=== PATIENT | female | born 1950 | race Caucasian/White ===

== ENCOUNTER 2017-11-11 06:23 | Day surgery (SDC) | payer MEDICARE, OTHER ==
[2017-11-08 09:28] VITALS: BMI 44.2
[~2017-11-11 06:23] MED LIST: LACTATED RINGERS 1,000 ML IV SCH; LIDOCAINE 1% 20 ML VIAL (10MG/ML) FOR IV START INTRADERMA PRN
[2017-11-11 06:59] VITALS: TEMP 98.1
[2017-11-11] MEDS ORDERED: LACTATED RINGERS 1,000 ML IV ONE ×2 (07:14)
[2017-11-11 07:20] LABS: Glucose,Whole Blood 131 mg/dL (75-99)
[2017-11-11] MEDS ORDERED: LIDOCAINE 1% INJ 10MG/ML (20 ML MDV) ONE (07:41)
[2017-11-11] MEDS ORDERED: PROPOFOL 10 MG/ML 20 ML VIAL IV ONE (07:41)
--- NOTE | 2017-11-11 07:46 | P.GSHP ---
History of Present Illness H&P Date: 11/11/17 Chief Complaint: Screening/history of polyps 67-year-old female known to our service. 3-4 years ago had a colonoscopy with showed multiple colon polyps. Mild constipation at times which is not new. No family history of colon cancer. No rectal bleeding or melena. 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 Hx severe pneumonia 2 yrs ago. History of Any Multi-Drug Resistant Organisms: None Reported Past Surgical History: Cholecystectomy, Orthopedic Surgery Additional Past Surgical History / Comment(s): Left foot plate and pins, COLONOSCOPY, BILATERAL CATARACTS. Past Anesthesia/Blood Transfusion Reactions: No Reported Reaction Past Psychological History: Anxiety Additional Psychological History / Comment(s): Panic attacks. Smoking Status: Former smoker Past Alcohol Use History: None Reported Additional Past Alcohol Use History / Comment(s): STARTED SMOKING AT AGE 16, 1.5 PPD-QUIT 2015. Past Drug Use History: None Reported - Past Family History Mother Family Medical History: Hypertension Father Family Medical History: Cancer Medications and Allergies Home Medications Medication Instructions Recorded Confirmed Type Albuterol Inhaler [Ventolin Hfa 1 - 2 puff INHALATION RT-Q6H PRN 01/08/15 History Inhaler] Ipratropium-Albuterol Nebulize 3 ml INHALATION RT-QID 01/08/15 11/08/17 History [Duoneb 0.5 mg-3 mg/3 ml Soln] Omeprazole [PriLOSEC] 20 mg PO AC-BRKFST 01/08/15 11/08/17 History metFORMIN HCL [metFORMIN HCL ER] 1,000 mg PO BID 01/08/15 11/08/17 History Enalapril [Vasotec] 10 mg PO HS 02/02/16 11/08/17 History glipiZIDE [Glucotrol] 5 mg PO DAILY@1200 02/02/16 11/08/17 History ALPRAZolam [Xanax] 0.25 mg PO BID PRN #20 tab 02/06/16 11/08/17 Rx Budesonide-Formot 160-4.5 Mcg 2 puff INHALATION BID #1 inhaler 02/06/16 Rx [Symbicort 160-4.5 Mcg Inhaler] Furosemide [Lasix] 40 mg PO TID-W/MEALS #0 tab 02/06/16 11/08/17 Rx HYDROcodone/APAP 10-325MG [[place] 1 each PO Q6H PRN #40 tab 02/06/16 11/08/17 Rx 10-325] Allergies Allergy/AdvReac Type Severity Reaction Status Date / Time Penicillins Allergy Rash/Hives Verified 11/08/17 09:05 Surgical - Exam Vital Signs Temp Pulse Resp BP Pulse Ox 98.1 F 95 20 140/83 96 11/11/17 06:57 11/11/17 06:57 11/11/17 06:57 11/11/17 06:57 11/11/17 06:57 Physical exam: General: Well-developed, well-nourished HEENT: Normocephalic, sclerae nonicteric Abdomen: Nontender, nondistended Extremities: No edema Neuro: Alert and oriented Results - Labs Abnormal Lab Results - Last 24 Hours (Table) 11/11/17 Range/Units 07:14 POC Glucose (mg/dL) 131 H (75-99) mg/dL Assessment and Plan (1) Colon cancer screening Narrative/Plan: Will proceed with colonoscopy at this time. Current Visit: Yes Status: Acute Code(s): Z12.11 - ENCOUNTER FOR SCREENING FOR MALIGNANT NEOPLASM OF COLON SNOMED Code(s): 175762974
--- NOTE | 2017-11-11 08:11 | P.PCN ---
Date of Procedure: 11/11/17 Procedure(s) Performed: PREOPERATIVE DIAGNOSIS: Screening, polyps POSTOPERATIVE DIAGNOSIS: Multiple polyps, poor prep PROCEDURE: Colonoscopy with snare polypectomy ANESTHESIA: MAC SURGEON: Max Jackson M.D. SPECIMENS: Polyps ENDOSCOPIC PROCEDURE: The patient was placed on the endoscopy table in the left decubitus position. The Olympus colonoscope was inserted into the anus and passed under direct visualization to the base of the cecum. The appendiceal orifice was visualized. From that point the scope was slowly withdrawn inspecting all surfaces carefully. There were no neoplastic inflammatory or polypoid lesions throughout the cecum. In the ascending colon there were 2 polyps one of which was non-retrieved. These were both approximately 8 mm in size. The transverse colon appeared normal. In the descending colon 2 additional polyps were removed in a similar fashion. The remainder of the sigmoid and rectum was normal. The patient's prep was suboptimal and I could not visualize probably 20-30% of the mucosal surfaces. I could not visualize any definite diverticulosis. Digital rectal examination was normal. The patient was taken to the recovery room in stable condition per anesthesia guidelines. RECOMMENDATIONS: Await biopsy results but would anticipate follow-up colonoscopy one year.
[2017-11-11 08:31] VITALS: RESP 20
[2017-11-11 09:08] VITALS: BP 153/88; PULSE 91
== END 2017-11-11 08:25 | disposition home or self-care (01) ==
LOC: ORWHC2ENDO 06:23
PROVIDERS: ATTEND Surgery
DX: Z12.11 Encounter for screening for malignant neoplasm of colon (principal); D12.2 Benign neoplasm of ascending colon; D12.8 Benign neoplasm of rectum; Z86.010 Personal history of colon polyps; I11.0 Hypertensive heart disease with heart failure; I50.9 Heart failure, unspecified; J44.9 Chronic obstructive pulmonary disease, unspecified; E11.9 Type 2 diabetes mellitus without complications; Z79.84 Long term (current) use of oral hypoglycemic drugs; K21.9 Gastro-esophageal reflux disease without esophagitis; E78.5 Hyperlipidemia, unspecified; R41.3 Other amnesia; Z87.891 Personal history of nicotine dependence; Z85.828 Personal history of other malignant neoplasm of skin; F41.0 Panic disorder [episodic paroxysmal anxiety]; Z79.51 Long term (current) use of inhaled steroids; Z79.899 Other long term (current) drug therapy; Z88.0 Allergy status to penicillin
CPT/HCPCS: 88305; 45385; J2001; J2704

== ENCOUNTER → 2020-10-17 | Outpatient (CLI) | payer MEDICARE | END | disposition home or self-care (01) ==

== ENCOUNTER 2021-03-17 13:28 | Emergency (ER) | payer MEDICARE ==
[2021-03-17 14:13] VITALS: TEMP 97.8
[2021-03-17] MEDS ORDERED: SOTROVIMAB (EUA) 500 MG in SODIUM CHLORIDE 0.9% 100 ML IVPB ONE (16:45)
[2021-03-17] MEDS ORDERED: SODIUM CHLORIDE 0.9% 50 ML IVPB ONE (16:45)
--- NOTE | 2021-03-17 17:08 | ED ---
General Adult HPI - General Chief complaint: Shortness of Breath Stated complaint: Covid+/antibodies Time Seen by Provider: 03/17/21 16:02 Source: patient, RN notes reviewed Mode of arrival: wheelchair Limitations: no limitations - History of Present Illness Initial comments: This a 70-year-old female presents emergency department chief complaint of COV ID-19. Patient states that she tested positive yesterday regarding results today. Patient sent here for monoclonal antibodies by PCP. Patient states she has CT is currently on 3 L of oxygen is not requiring any additional oxygen. Patient states she has a mild nonproductive cough, body aches fevers and chills. Denies chest pain - Related Data Home Medications Medication Instructions Recorded Confirmed Albuterol Inhaler (Mhu) [Ventolin 1 - 2 puff INHALATION RT-Q6H PRN 01/08/15 11/08/17 Hfa Inhaler (Mhu)] Ipratropium-Albuterol Nebulize 3 ml INHALATION RT-QID 01/08/15 11/08/17 [Duoneb 0.5 mg-3 mg/3 ml Soln] Omeprazole [PriLOSEC] 20 mg PO AC-BRKFST 01/08/15 11/08/17 metFORMIN HCL [metFORMIN HCL ER] 1,000 mg PO BID 01/08/15 11/08/17 Enalapril [Vasotec] 10 mg PO HS 02/02/16 11/08/17 glipiZIDE [Glucotrol] 5 mg PO DAILY@1200 02/02/16 11/08/17 Previous Rx's Medication Instructions Recorded ALPRAZolam [Xanax] 0.25 mg PO BID PRN #20 tab 02/06/16 Budesonide-Formot 160-4.5 Mcg 2 puff INHALATION BID #1 inhaler 02/06/16 [Symbicort 160-4.5 Mcg Inhaler] Furosemide [Lasix] 40 mg PO TID-W/MEALS #0 tab 02/06/16 HYDROcodone/APAP 10-325MG [[place] 1 each PO Q6H PRN #40 tab 02/06/16 10-325] Allergies Allergy/AdvReac Type Severity Reaction Status Date / Time Penicillins Allergy Rash/Hives Verified 11/08/17 09:05 Review of Systems ROS Statement: Those systems with pertinent positive or pertinent negative responses have been documented in the HPI. ROS Other: All systems not noted in ROS Statement are negative. Past Medical History Past Medical History: Heart Failure, COPD, Diabetes Mellitus, GERD/Reflux, Hyperlipidemia, Thyroid Disorder Additional Past Medical History / Comment(s): home O2 History of Any Multi-Drug Resistant Organisms: None Reported Past Surgical History: Cholecystectomy Additional Past Surgical History / Comment(s): foot Left plate and pins Past Anesthesia/Blood Transfusion Reactions: No Reported Reaction Past Psychological History: Anxiety Smoking Status: Former smoker Past Alcohol Use History: None Reported Past Drug Use History: None Reported - Past Family History Mother Family Medical History: Hypertension Father Family Medical History: Cancer General Exam Limitations: no limitations General appearance: alert, in no apparent distress Head exam: Present: atraumatic, normocephalic, normal inspection Eye exam: Present: normal appearance, PERRL, EOMI. Absent: scleral icterus, conjunctival injection, periorbital swelling ENT exam: Present: normal exam, mucous membranes moist Neck exam: Present: normal inspection. Absent: tenderness, meningismus, lymphadenopathy Respiratory exam: Present: normal lung sounds bilaterally. Absent: respiratory distress, wheezes, rales, rhonchi, stridor Cardiovascular Exam: Present: regular rate, normal rhythm, normal heart sounds. Absent: systolic murmur, diastolic murmur, rubs, gallop, clicks GI/Abdominal exam: Present: soft, normal bowel sounds. Absent: distended, tenderness, guarding, rebound, rigid Course Vital Signs 03/17/21 14:11 Temperature 97.8 F Pulse Rate 99 Respiratory 22 Rate Blood Pressure 143/92 O2 Sat by Pulse 95 Oximetry Medical Decision Making - Medical Decision Making Patient received monoclonal antibodies and will be discharged in stable condition. Disposition Clinical Impression: COVID-19 Disposition: HOME SELF-CARE Condition: Stable Instructions (If sedation given, give patient instructions): Coronavirus Disease 2019 (COVID-19) Additional Instructions: Please return to the Emergency Department if symptoms worsen or any other concerns. Is patient prescribed a controlled substance at d/c from ED?: No Referrals: Shalom Gray MD [Primary Care Provider] - 1-2 days Time of Disposition: 17:08
[2021-03-17 18:12] VITALS: BP 137/94; PULSE 68; RESP 18
== END 2021-03-17 18:29 | disposition home or self-care (01) ==
LOC: EC 13:28
DX: U07.1 COVID-19 (principal); E11.9 Type 2 diabetes mellitus without complications; I50.9 Heart failure, unspecified; K21.9 Gastro-esophageal reflux disease without esophagitis; Z87.891 Personal history of nicotine dependence; J44.9 Chronic obstructive pulmonary disease, unspecified; Z79.899 Other long term (current) drug therapy; Z79.84 Long term (current) use of oral hypoglycemic drugs; Z88.0 Allergy status to penicillin
CPT/HCPCS: 99283; Q0247

== ENCOUNTER → 2023-08-29 | Outpatient (CLI) | payer OTHER ==
--- NOTE | 2023-08-29 15:29 | XR ---
EXAMINATION TYPE: XR thoracic spine complete, XR lumbosacral spine min 4V DATE OF EXAM: 08/29/2023 2:34 PM CLINICAL INDICATION:Female, 73 years old with history of M54.50 Low back pain; [facility] COMPARISON: CT 10/27/2020 TECHNIQUE: XR thoracic spine complete, XR lumbosacral spine min 4V views of the spine in Frontal and lateral projections. FINDINGS: No evidence of acute fracture. There is increased kyphotic alignment with mild scoliosis rightward wh ich may be due to patient positioning. Scattered mild tubular body height loss throughout the spine. Multilevel degeneration changes with osteophyte formation and disc space narrowing present. Scattered osteophyte formation along the anterior and lateral aspects of the vertebral bodies. Neural foramen are patent given limitations of this exam. Spinal canal appears patent. Surgical clips project over the spine. Atherosclerosis of the arterial vasculature. IMPRESSION: 1. No acute osseous pathology definitively visualized. Multilevel wedge compressions of the thoracic spine which are indeterminate. Consider MRI for evaluation for bony edema there is new focal pain. 2. Mild scoliosis of moderate disc degeneration changes of the spine.
== END | disposition home or self-care (01) ==
LOC: RADXRMAIN 13:58
PROVIDERS: ATTEND Internal Medicine
DX: M41.87 Other forms of scoliosis, lumbosacral region (principal); M41.84 Other forms of scoliosis, thoracic region; M51.37 Other intervertebral disc degeneration, lumbosacral region; M51.34 Other intervertebral disc degeneration, thoracic region
CPT/HCPCS: 72072; 72110

== ENCOUNTER 2024-07-04 09:59 | Inpatient (IN) | payer MEDICARE, OTHER ==
--- NOTE | 2024-07-04 10:23 | ED ---
SOB HPI - General Chief Complaint: Shortness of Breath Stated Complaint: Fall Time Seen by Provider: 07/04/24 10:20 Source: patient, EMS, RN notes reviewed Mode of arrival: EMS Limitations: no limitations - History of Present Illness Initial Comments: 73-year-old female with history of CHF, COPD, diabetes, hyperlipidemia presenting for fall 12 hours ago. Patient reports she accidentally rolled off of the couch onto the floor and was too weak to get herself up for 12 hours. Denies head injury or loss of consciousness. States she waited for her partner to get up in the morning before she was able to call EMS for help. Denies any injuries from the fall. States she normally is able to ambulate around the house with a walker. Denies blood thinners. Denies shortness of breath, chest pain, abdominal pain, headache, body aches. She is finishing a course of antibiotics for bronchitis. She wears 3 L of O2 at home and has chronic bilateral lower extremity edema. - Related Data Home Medications Medication Instructions Recorded Confirmed Albuterol Inhaler [Ventolin Hfa 1 - 2 puff INHALATION RT-Q6H PRN 01/08/15 11/08/17 Inhaler] Ipratropium-Albuterol Nebulize 3 ml INHALATION RT-QID 01/08/15 11/08/17 [Duoneb 0.5 mg-3 mg/3 ml Soln] Omeprazole [PriLOSEC] 20 mg PO AC-BRKFST 01/08/15 11/08/17 metFORMIN HCL [metFORMIN HCL ER] 1,000 mg PO BID 01/08/15 11/08/17 Enalapril [Vasotec] 10 mg PO HS 02/02/16 11/08/17 glipiZIDE [Glucotrol] 5 mg PO DAILY@1200 02/02/16 11/08/17 Previous Rx's Medication Instructions Recorded ALPRAZolam [Xanax] 0.25 mg PO BID PRN #20 tab 02/06/16 Budesonide-Formot 160-4.5 Mcg 2 puff INHALATION BID #1 inhaler 02/06/16 [Symbicort 160-4.5 Mcg Inhaler] Furosemide [Lasix] 40 mg PO TID-W/MEALS #0 tab 02/06/16 HYDROcodone/APAP 10-325MG [[place] 1 each PO Q6H PRN #40 tab 02/06/16 10325] Allergies Allergy/AdvReac Type Severity Reaction Status Date / Time Penicillins Allergy Rash/Hives Verified 07/04/24 10:10 Review of Systems ROS Statement: Those systems with pertinent positive or pertinent negative responses have been documented in the HPI. ROS Other: All systems not noted in ROS Statement are negative. Past Medical History Past Medical History: Heart Failure, COPD, Diabetes Mellitus, GERD/Reflux, Hyperlipidemia, Thyroid Disorder Additional Past Medical History / Comment(s): home O2 History of Any Multi-Drug Resistant Organisms: None Reported Past Surgical History: Cholecystectomy Additional Past Surgical History / Comment(s): foot Left plate and pins Past Anesthesia/Blood Transfusion Reactions: No Reported Reaction Past Psychological History: Anxiety Smoking Status: Former smoker Past Alcohol Use History: None Reported Past Drug Use History: None Reported - Past Family History Mother Family Medical History: Hypertension Father Family Medical History: Cancer General Exam Limitations: no limitations General appearance: alert, in no apparent distress Head exam: Present: atraumatic, normocephalic, normal inspection Eye exam: Present: normal appearance, PERRL, EOMI. Absent: scleral icterus, conjunctival injection, periorbital swelling ENT exam: Present: normal exam, mucous membranes moist Respiratory exam: Present: normal lung sounds bilaterally. Absent: respiratory distress, wheezes, rales, rhonchi, stridor Cardiovascular Exam: Present: regular rate, normal rhythm, normal heart sounds. Absent: systolic murmur, diastolic murmur, rubs, gallop, clicks GI/Abdominal exam: Present: soft, normal bowel sounds. Absent: distended, tenderness, guarding, rebound, rigid Extremities exam: Present: full ROM, normal capillary refill. Absent: normal inspection (Bilateral lower extremities-2+ edema), tenderness, pedal edema, joint swelling, calf tenderness Neurological exam: Present: alert, oriented X3 Psychiatric exam: Present: normal affect, normal mood Skin exam: Present: warm, dry, intact, normal color. Absent: rash Course Vital Signs 07/04/24 10:01 Temperature 98.3 F Pulse Rate 89 Respiratory 20 Rate Blood Pressure 115/73 O2 Sat by Pulse 95 Oximetry Medical Decision Making - Medical Decision Making Was pt. sent in by a medical professional or institution (, PA, DIESEL DRAGLINE OPERATOR, urgent care, hospital, or usp...) When possible be specific @ -No Did you speak to anyone other than the patient for history (EMS, parent, family, police, friend...)? What history was obtained from this source @ -No Did you review nursing and triage notes (agree or disagree)? Why? @ -I reviewed and agree with nursing and triage notes Were old charts reviewed (outside hosp., previous admission, EMS record, old EK G, old radiological studies, urgent care reports/EKG's, usp records)? Report findings @ -No old charts were reviewed Differential Diagnosis (chest pain, altered mental status, abdominal pain women, abdominal pain men, vaginal bleeding, weakness, fever, dyspnea, syncope, headache, dizziness, GI bleed, back pain, seizure, CVA, palpatations, mental health, musculoskeletal)? @ -Differential Musculoskeletal Muscular strain, contusion, ligament sprain, fracture, arthritis, septic arthritis, bursitis, cellulitis, muscle spasm, nerve compression, DVT, arterial occlusion, herpes zoster, electrolyte abnormality, tumor.... This is not meant to be in all inclusive list EKG interpreted by me (3pts min.). @ -As above X-rays interpreted by me (1pt min.). @ -Chest x-ray reveals cardiomegaly with small to tiny bilateral pleural effusions, 4.7 cm masslike consolidation in right mid to lower lung CT interpreted by me (1pt min.). @ -None done U/S interpreted by me (1pt. min.). @ -None done What testing was considered but not performed or refused? (CT, X-rays, U/S, labs)? Why? @ -None What meds were considered but not given or refused? Why? @ -None Did you discuss the management of the patient with other professionals (professionals i.e. , PA, DIESEL DRAGLINE OPERATOR, lab, RT, psych nurse, long term care social worker, chief juvenile probation officer, teacher, police officer, complex case manager)? Give summary @ -I spoke with Dr. Gray who accepts admission for CHF exacerbation Was smoking cessation discussed for >3mins.? @ -No Was critical care preformed (if so, how long)? @ -No Were there social determinants of health that impacted care today? How? (Homelessness, low income, unemployed, alcoholism, drug addiction, transportation, low edu. Level, literacy, decrease access to med. care, care home, rehab)? @ -No Was there de-escalation of care discussed even if they declined (Discuss DNR or withdrawal of care, Hospice)? DNR status @ -No What co-morbidities impacted this encounter? (DM, HTN, Smoking, COPD, CAD, Cancer, CVA, ARF, Chemo, Hep., AIDS, mental health diagnosis, sleep apnea, morbid obesity)? @ -CHF Was patient admitted / discharged? Hospital course, mention meds given and route, prescriptions, significant lab abnormalities, going to OR and other pertinent info. @ - admitted. 73-year-old female presenting for weakness. States she had a mechanical fall off the couch 12 hours ago and was on the floor for 12 hours, unable to get herself up. Denies head injury or any other injuries from the fall. Denies blood thinners. EKG reveals normal sinus rhythm with no ST changes. Lab work remarkable for mild leukocytosis of 11, creatinine kinase unremarkable for rhabdomyolysis at 151, BNP elevated at 1830, CO2 37. Chest x- ray reveals cardiomegaly with small tiny bilateral pleural effusions and 4.7 cm masslike consolidation in right mid to lower lung. Results discussed with patient. Will admit to medicine for CHF exacerbation with PT/OT consult. Patient was started on IV Lasix. Case was discussed with my ED attending Dr. Lozano. Undiagnosed new problem with uncertain prognosis? @ -No Drug Therapy requiring intensive monitoring for toxicity (Heparin, Nitro, Insulin, Cardizem)? @ -No Were any procedures done? @ -No Diagnosis/symptom? @ -CHF exacerbation Acute, or Chronic, or Acute on Chronic? @ -Acute on chronic Uncomplicated (without systemic symptoms) or Complicated (systemic symptoms)? @ -Complicated Side effects of treatment? @ -No Exacerbation, Progression, or Severe Exacerbation? @ -No Poses a threat to life or bodily function? How? (Chest pain, [place], [place], pneumonia, PE, COPD, DKA, ARF, appy, cholecystitis, CVA, Diverticulitis, Homicidal, Suicidal, threat to staff... and all critical care pts) @ -Yes - Lab Data Result diagrams: 07/04/24 10:33 07/04/24 10:33 Lab Results 03/07/04/24 07/04/24 Range/Units 10:33 10:33 10:33 WBC 11.4 H (3.8-10.6) k/uL RBC 4.40 (3.80-5.40) m/uL Hgb 12.7 (11.4-16.0) gm/dL Hct 42.1 (34.0-46.0) % MCV 95.7 (80.0-100.0) fL MCH 29.0 (25.0-35.0) pg MCHC 30.3 L (31.0-37.0) g/dL RDW 15.1 (11.5-15.5) % Plt Count 190 (150-450) k/uL MPV 7.8 Neutrophils % 84 % Lymphocytes % 10 % Monocytes % 4 % Eosinophils % 1 % Basophils % 0 % Neutrophils # 9.6 H (1.3-7.7) k/uL Lymphocytes # 1.1 (1.0-4.8) k/uL Monocytes # 0.5 (0-1.0) k/uL Eosinophils # 0.1 (0-0.7) k/uL Basophils # 0.0 (0-0.2) k/uL Hypochromasia Marked PT (10.0-12.5) sec INR (<1.2) APTT (22.0-30.0) sec Sodium 137 (137-145) mmol/L Potassium 4.4 (3.5-5.1) mmol/L Chloride 92 L (98-107) mmol/L Carbon Dioxide 37 H (22-30) mmol/L Anion Gap 8 mmol/L BUN 20 H (7-17) mg/dL Creatinine 0.64 (0.52-1.04) mg/dL Est GFR (CKD-EPI)AfAm >90 (>60 ml/min/1.73 sqM) Est GFR (CKD-EPI)NonAf >90 (>60 ml/min/1.73 sqM) Glucose 204 H (74-99) mg/dL Calcium 8.9 (8.4-10.2) mg/dL Total Bilirubin 0.7 (0.2-1.3) mg/dL AST 21 (14-36) U/L ALT 12 (4-34) U/L Alkaline Phosphatase 98 (38-126) U/L Creatine Kinase 151 H (30-135) U/L Troponin I (0.000-0.034) ng/mL NT-Pro-B Natriuret Pep 1830 pg/mL Total Protein 6.1 L (6.3-8.2) g/dL Albumin 3.3 L (3.5-5.0) g/dL Influenza Type A (PCR) Not Detected (Not Detectd) Influenza Type B (PCR) Not Detected (Not Detectd) RSV (PCR) Not Detected (Not Detectd) SARS-CoV-2 (PCR) Not Detected (Not Detectd) 07/04/24 07/04/24 Range/Units 10:33 10:33 WBC (3.8-10.6) k/uL RBC (3.80-5.40) m/uL Hgb (11.4-16.0) gm/dL Hct (34.0-46.0) % MCV (80.0-100.0) fL MCH (25.0-35.0) pg MCHC (31.0-37.0) g/dL RDW (11.5-15.5) % Plt Count (150-450) k/uL MPV Neutrophils % % Lymphocytes % % Monocytes % % Eosinophils % % Basophils % % Neutrophils # (1.3-7.7) k/uL Lymphocytes # (1.0-4.8) k/uL Monocytes # (0-1.0) k/uL Eosinophils # (0-0.7) k/uL Basophils # (0-0.2) k/uL Hypochromasia PT 11.6 (10.0-12.5) sec INR 1.1 (<1.2) APTT 26.7 (22.0-30.0) sec Sodium (137-145) mmol/L Potassium (3.5-5.1) mmol/L Chloride (98-107) mmol/L Carbon Dioxide (22-30) mmol/L Anion Gap mmol/L BUN (7-17) mg/dL Creatinine (0.52-1.04) mg/dL Est GFR (CKD-EPI)AfAm (>60 ml/min/1.73 sqM) Est GFR (CKD-EPI)NonAf (>60 ml/min/1.73 sqM) Glucose (74-99) mg/dL Calcium (8.4-10.2) mg/dL Total Bilirubin (0.2-1.3) mg/dL AST (14-36) U/L ALT (4-34) U/L Alkaline Phosphatase (38-126) U/L Creatine Kinase (30-135) U/L Troponin I <0.012 (0.000-0.034) ng/mL NT-Pro-B Natriuret Pep pg/mL Total Protein (6.3-8.2) g/dL Albumin (3.5-5.0) g/dL Influenza Type A (PCR) (Not Detectd) Influenza Type B (PCR) (Not Detectd) RSV (PCR) (Not Detectd) SARS-CoV-2 (PCR) (Not Detectd) - EKG Data -: EKG Interpreted by Me EKG Comments: Normal sinus rhythm with no acute ST changes. Ventricular rate 92 bpm, AL interval not calculated, QRS duration 96, QT/QTc 365/415 Disposition Clinical Impression: Acute exacerbation of congestive heart failure Disposition: ADMITTED IP TO THIS HOSP Referrals: Shalom Gray MD [Primary Care Provider] - 1-2 days Time of Disposition: 12:03
[2024-07-04 10:53] LABS: Basophils % (A) 0 %; Eosinophils # (A) 0.1 k/uL (0-0.7); Eosinophils % (A) 1 %; HCT 42.1 % (34.0-46.0); HGB 12.7 gm/dL (11.4-16.0); Hypochromasia Marked; Lymphocytes # (A) 1.1 k/uL (1.0-4.8); Lymphocytes % (A) 10 %; MCHC 30.3 g/dL (31.0-37.0); MCV 95.7 fL (80.0-100.0); Mean Platelet Volume 7.8; Monocytes # (A) 0.5 k/uL (0-1.0); Monocytes % (A) 4 %; Neutrophils # (A) 9.6 k/uL (1.3-7.7); Neutrophils % (A) 84 %; Platelet Count 190 k/uL (150-450); RDW 15.1 % (11.5-15.5); WBC 11.4 k/uL (3.8-10.6)
[2024-07-04 11:12] LABS: ALT 12 U/L (4-34); AST 21 U/L (14-36); African American GFR (CKD) >90 (>60 ml/min/1.73 sqM); Albumin 3.3 g/dL (3.5-5.0); Alkaline Phosphatase 98 U/L (38-126); Blood Urea Nitrogen 20 mg/dL (7-17); Calcium 8.9 mg/dL (8.4-10.2); Chloride 92 mmol/L (98-107); Creatine Kinase 151 U/L (30-135); Glucose 204 mg/dL (74-99); Non-African American GFR(CKD) >90 (>60 ml/min/1.73 sqM); Potassium 4.4 mmol/L (3.5-5.1); Sodium 137 mmol/L (137-145); Total Bilirubin 0.7 mg/dL (0.2-1.3); Total Protein 6.1 g/dL (6.3-8.2)
[2024-07-04 11:15] LABS: INR 1.1 (<1.2); Partial Thromboplastin Time 26.7 sec (22.0-30.0); Prothrombin Time 11.6 sec (10.0-12.5)
[2024-07-04 11:19] LABS: Anion Gap 8 mmol/L
[2024-07-04 11:20] LABS: Carbon Dioxide 37 mmol/L (22-30); NT-Pro-B-Type Natriuretic Pept 1830 pg/mL
[2024-07-04 11:28] LABS: Influenza A Not Detected (Not Detectd); Influenza B Not Detected (Not Detectd); RSV Not Detected (Not Detectd)
--- NOTE | 2024-07-04 11:33 | XR ---
EXAMINATION TYPE: XR chest 2V DATE OF EXAM: 07/04/2024 CLINICAL INDICATION: Female, 73 years old with history of shortness of breath, TECHNIQUE: Frontal and lateral views of the chest are obtained. COMPARISON: Chest x-ray February 05, 2016 FINDINGS: Exam suboptimal secondary to patient's large body habitus. Underlying emphysematous change is redemonstrated. Persistent cardiomegaly with small to tiny bilateral pleural effusions. New 4.7 c m masslike opacity in the right midlung. The osseous structures are intact. IMPRESSION: Correlate for suspected CHF exacerbation. Addition there is a 4.7 cm masslike consolidati on in the right mid to lower lung. Underlying mass/malignancy is not excluded. Follow-up is advised. [facility], , 07/04/2024 11:31 AM
[2024-07-04] MEDS ORDERED: NALOXONE 0.4 MG/ML 1 ML VIAL IV PRN (11:59)
[2024-07-04] MEDS ORDERED: ONDANSETRON 4 MG/2 ML VIAL IVP PRN (11:59)
[2024-07-04] MEDS: FUROSEMIDE 10 MG/ML 4 ML VIAL IV STA (13:50)
[2024-07-04 13:53] LABS: Appearance,Urine Clear (Clear); Bilirubin,Urine Negative (Negative); Blood,Urine Negative (Negative); Color,Urine Yellow; Glucose,Urine (UA) 1+ (Negative); Ketones,Urine Negative (Negative); Leukocyte Esterase,Urine Negative (Negative); Nitrite,Urine Negative (Negative); PH, Urine 5.5 (5.0-8.0); Protein,Urine Trace (Negative); Specific Gravity,Urine 1.021 (1.001-1.035)
[2024-07-04] MEDS: HYDROcodone/APAP 5-325MG 1 EACH TAB PO PRN (15:26)
[2024-07-04] MEDS ORDERED: HYDROcodone/APAP 10-325MG 1 EACH TAB PO PRN (15:57)
--- NOTE | 2024-07-04 16:20 | P.HPIM ---
History of Present Illness H&P Date: 07/04/24 Ajay Robertson, is a 73-year-old female who presented to [facility] emergency room with a chief complaint of worsening shortness of breath, additionally patient was found on the floor in her house, she stated that she fell while asleep and was not able to stand up. She was evaluated in the emergency room vital examination on presentation revealed a temperature of 98.3 pulse 89 respiration 20 blood pressure 115/73 pulse ox 95% on 5 L nasal cannula Laboratory data revealed a white blood count of 11.4 hemoglobin 12.7 platelet count 190 BUN 20 creatinine 0.64 influenza A and B RSV and COVID-19 PCR were all negative Testing in the emergency room revealed chest x-ray revealed pulmonary congestion suggestive of congestive heart failure exacerbation and a new 4.7 masslike consolidation in the right mid to lower lung Patient was admitted to medical floor for further evaluation and treatment Past medical history is significant for history of hypertension, history of hyperlipidemia, history of hypothyroidism, history of diabetes mellitus, history of COPD, history of congestive heart failure, history of morbid obesity, history of recurrent episodes of bilateral lower extremity cellulitis. On review of systems patient is alert and oriented x 3 in no apparent distress, she is complaining of generalized body ache, she is complaining of shortness of breath, otherwise she denies any complaints there is no fever or chills no headache or dizziness no chest pain, she has occasional cough no nausea or vomiting no abdominal pain no diarrhea and no urinary symptoms. Past Medical History Past Medical History: Heart Failure, COPD, Diabetes Mellitus, GERD/Reflux, Hyperlipidemia, Thyroid Disorder Additional Past Medical History / Comment(s): home O2 History of Any Multi-Drug Resistant Organisms: None Reported Past Surgical History: Cholecystectomy Additional Past Surgical History / Comment(s): foot Left plate and pins Past Anesthesia/Blood Transfusion Reactions: No Reported Reaction Past Psychological History: Anxiety Smoking Status: Former smoker Past Alcohol Use History: None Reported Past Drug Use History: None Reported - Past Family History Mother Family Medical History: Hypertension Father Family Medical History: Cancer Medications and Allergies Home Medications Medication Instructions Recorded Confirmed Type Albuterol Inhaler [Ventolin Hfa 1 - 2 puff INHALATION RT-Q6H PRN 01/08/15 07/04/24 History Inhaler] Enalapril [Vasotec] 20 mg PO DAILY 07/04/24 07/04/24 History Ergocalciferol [Vitamin D2 (1250 1,250 mcg PO MO 07/04/24 07/04/24 History Mcg = 64585 Iu)] Furosemide [Lasix] 20 mg PO DAILY@1830 07/04/24 07/04/24 History Furosemide [Lasix] 40 mg PO QAM 07/04/24 07/04/24 History HYDROcodone/APAP 10-325MG [[place] 1 tab PO TID PRN 07/04/24 07/04/24 History 10-325] Insulin Glargine,Hum.rec.anlog 70 units SQ DAILY 07/04/24 07/04/24 History [Lantus Solostar Pen] Phentermine HCl [Adipex-P] 37.5 mg PO DAILY 07/04/24 07/04/24 History Rosuvastatin [Crestor] 20 mg PO DAILY 07/04/24 07/04/24 History traZODone HCL [Desyrel] 50 mg PO HS 07/04/24 07/04/24 History Allergies Allergy/AdvReac Type Severity Reaction Status Date / Time Penicillins Allergy Rash/Hives Verified 07/04/24 14:26 Physical Exam Vitals: Vital Signs Temp Pulse Resp BP Pulse Ox 07/04/24 10:01 98.3 F 89 20 115/73 95 Intake and Output 07/04/24 07/04/24 07/04/24 06:59 14:59 22:59 Other: Weight 117.934 kg In general patient is alert and oriented x 3 in no distress HEENT head normocephalic and atraumatic Neck is supple no JVD no goiter no lymphadenopathy no carotid bruit Chest examination reveals a scattered crackles bilaterally no wheezing Cardiac exam reveals regular heart sounds S1 and S2 no gallops no murmurs Abdomen is soft nontender no organomegaly with normal bowel sounds Extremity exam reveals 3+ edema with erythema and chronic stasis changes, multiple small ulceration with scabbing no cyanosis or clubbing Neurological examination reveals no gross focal deficits Results CBC & Chem 7: 07/04/24 10:33 07/04/24 10:33 Labs: Abnormal Lab Results - Last 24 Hours (Table) 07/04/24 07/04/24 07/04/24 Range/Units 10:33 10:33 10:33 WBC 11.4 H (3.8-10.6) k/uL MCHC 30.3 L (31.0-37.0) g/dL Neutrophils # 9.6 H (1.3-7.7) k/uL Chloride 92 L (98-107) mmol/L Carbon Dioxide 37 H (22-30) mmol/L BUN 20 H (7-17) mg/dL Glucose 204 H (74-99) mg/dL Creatine Kinase 151 H (30-135) U/L Total Protein 6.1 L (6.3-8.2) g/dL Albumin 3.3 L (3.5-5.0) g/dL Urine Protein Trace H (Negative) Urine Glucose (UA) 1+ H (Negative) Assessment and Plan Plan: Acute congestive heart failure exacerbation New 4.7 cm masslike consolidation opacity in the right midlung Fall at home, with generalized body pain Bilateral lower extremity cellulitis, with multiple open ulcers Underlying history of hypertension Underlying history of hyperlipidemia Underlying history of diabetes mellitus Underlying history of COPD Underlying history of morbid obesity At this time patient was admitted to telemetry floor Echocardiogram ordered Home medications reviewed and reordered Patient was started on IV Lasix in the emergency room Consultation for pulmonary, infectious disease, and cardiology initiated Will follow closely
[2024-07-04] MEDS ORDERED: RX INFO: IV CONTRAST WAS GIVEN 1 EACH MISC MISCELLANE PRN (16:21)
[2024-07-04] MEDS: FUROSEMIDE 10 MG/ML 2 ML VIAL IV SCH (16:43)
[2024-07-04] MEDS: traZODone HCL 50 MG TAB PO SCH (21:53)
[2024-07-05 06:30] LABS: Glucose,Whole Blood 169 mg/dL (70-110)
[2024-07-05 08:37] LABS: ALT 9 U/L (8-44); AST 15 U/L (13-35); Albumin 3.3 g/dL (3.8-4.9); Albumin/Globulin Ratio 1.38 Ratio (1.60-3.17); Alkaline Phosphatase 83 U/L (41-126); BUN/Creat Ratio 19.44 Ratio (12.00-20.00); Blood Urea Nitrogen 17.5 mg/dL (9.0-27.0); Calcium 8.6 mg/dL (8.7-10.3); Carbon Dioxide 39.1 mmol/L (21.6-31.8); Chloride 94 mmol/L (96-109); Globulin 2.4 g/dL (1.6-3.3); Glucose 197 mg/dL (70-110); Potassium 4.3 mmol/L (3.5-5.5); Sodium 141 mmol/L (135-145); Total Bilirubin 0.3 mg/dL (0.3-1.2); Total Protein 5.7 g/dL (6.2-8.2)
[2024-07-05 08:40] LABS: Basophils # (A) 0.04 X 10*3/uL (0.00-0.10); Basophils % (A) 0.4 %; Eosinophils % (A) 0.9 %; HCT 39.1 % (37.2-46.3); HGB 11.3 g/dL (12.0-15.0); Lymphocytes # (A) 2.34 X 10*3/uL (0.90-5.00); Lymphocytes % (A) 20.9 %; MCHC 28.9 g/dL (32.0-37.0); MCV 100.3 FL (80.0-97.0); Mean Platelet Volume 11.4 FL (9.5-12.2); Monocytes # (A) 1.04 X 10*3/uL (0.20-1.00); Monocytes % (A) 9.3 %; NRBC Per 100 WBC 0 X 10*3/uL (0.00-0.01); Neutrophils # (A) 7.67 X 10*3/uL (1.80-7.70); Neutrophils % (A) 68.2 %; Platelet Count 185 X 10*3/uL (140-440); RDW 15.3 % (11.5-14.5); WBC 11.22 X 10*3/uL (4.50-10.00)
--- NOTE | 2024-07-05 08:54 | CT ---
EXAMINATION TYPE: CT chest w con CT DLP: 640 mGycm, Automated exposure control for dose reduction was used. DATE OF EXAM: 07/05/2024 7:57 AM COMPARISON: Chest radiograph 07/04/2024, CT abdomen and pelvis 10/17/2020 CLINICAL INDICATION:Female, 73 years old with history of lung mass; PHH, Lung Mass TECHNIQUE: Multiple axial images were obtained through the chest following the administration of 100 cc of Isovue 300. . Coronal and sagittal reformats reviewed. FINDINGS: LUNGS/ PLEURA: No pneumothorax. Trace right pleural effusion. Bibasilar dependent subsegmental atelec tasis. Lobulated anterior right upper/middle lobe peripheral pulmonary mass measuring 7.1 x 3.8 cm (s eries 3, image 29). This extends along the right minor fissure. Right middle lobe calcified granuloma . AIRWAY: Patent and unremarkable.. HEART: Cardiomegaly is demonstrated.No pericardial effusion. No significant coronary artery calcifica tions. MEDIASTINUM: A few small mediastinal lymph nodes identified. VASCULATURE: The aortic root measures up to 3.2 cm in diameter. The ascending thoracic aorta measure s up to 4.1 cm. The descending thoracic aorta measures up to 3.0 cm. Mild atherosclerotic calcificati on of the aorta and its branches. Dilated main pulmonary artery measuring up to 4.6 cm. No visualized pulmonary embolism. MUSCULOSKELETAL: No acute osseous abnormalities. No aggressive osseous lesion. Multilevel anterior os teophytosis of the thoracic spine. SOFT TISSUES/LYMPH NODES: Unremarkable. LOWER NECK: Couple of subcentimeter hypodense thyroid nodules. UPPER ABDOMEN: No significant findings. IMPRESSION: 1. Lobulated right upper/middle lobe mass measuring up to 7.1 cm concerning for malignancy until prov en otherwise. Recommend PET/CT versus tissue sampling. 2. Trace right pleural effusion with bilateral lower lobe dependent subsegmental atelectasis. 3. Ascending thoracic aortic aneurysm measuring 4.1 cm. 4. Dilated main pulmonary artery suggesting pulmonary arterial hypertension. [facility], , 07/05/2024 8:51 AM
--- NOTE | 2024-07-05 09:12 | P.CRDCN ---
History of Present Illness History of present illness: HISTORY OF PRESENT ILLNESS: This is a 73-year-old male with a past medical history significant for COPD, congestive heart failure, hypertension, and hyperlipidemia. 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 We have been asked to see the patient in consultation for congestive heart failure. Patient examined at the bedside. Patient presented to the hospital with a chief complaint of increased lower extremity swelling and shortness of breath. Patient was found to be in CHF and was started on IV Lasix. Patient currently denies any chest pain or pressure. Vital signs are stable. DIAGNOSTICS: - EKG reveals sinus mechanism with no signs of acute ischemia - Chest xray correlate for suspected CHF exacerbation. Additionally there is a 4.7 cm masslike consolidation in the right mid to lower lung. Underlying mass/malignancy is not excluded. - Laboratory data: WBC 11.22. Hemoglobin 11.3. Platelet count 185. Sodium 141. Potassium 4.3. BUN 17. Creatinine 0.9. - Current home cardiac medications include rosuvastatin 20 mg daily, enalapril 20 mg daily, and Lasix 40 mg in the morning and 20 mg in the afternoon. REVIEW OF SYSTEMS: At the time of my exam: CONSTITUTIONAL: Denies fever or chills. HEENT: Denies blurred vision, vision changes, or eye pain. Denies hemoptysis CARDIOVASCULAR: Denies chest pain. Denies orthopnea. Denies PND. Denies palpitations RESPIRATORY: Denies shortness of breath. GASTROINTESTINAL: Denies abdominal pain. Denies nausea or vomiting. HEMATOLOGIC: Denies bleeding disorders. GENITOURINARY: Denies any blood in urine. SKIN: Denies pruitis. Denies rash. PHYSICAL EXAM: VITAL SIGNS: Reviewed. GENERAL: Well-developed in no acute distress. HEENT: Head is normocephalic. Pupils are equal, round. Sclerae anicteric. Mucous membranes of the mouth are moist. Neck supple. No JVD or thyromegaly LUNGS: Respirations even and unlabored. Lungs essentially clear to auscultation bilaterally. HEART: Regular rate and rhythm. S1 and S2 heard. ABDOMEN: Soft. Nondistended. Nontender. EXTREMITIES: Normal range of motion. No clubbing or cyanosis. Peripheral pulses intact. Bilateral lower extremity edema with evidence of cellulitis NEUROLOGIC: Awake and alert. Oriented x 3. ASSESSMENT: Bilateral lower extremity cellulitis Acute on chronic heart failure, type unknown, echo pending History of COPD Hypertension Hyperlipidemia Morbid obesity: BMI 46.1 PLAN: Obtain 2D echo to assess cardiac structure and function Begin IV Lasix 40 mg every 8 hours Daily weights, accurate intake and output, monitoring of kidney function Resume additional home cardiac medications Further recommendations pending patient course Nurse practitioner note has been reviewed by physician. Signing provider agrees with the documented findings, assessment, and plan of care documented by ARCHITECT MARINE as a scribe. Past Medical History Past Medical History: Heart Failure, COPD, Diabetes Mellitus, GERD/Reflux, Hyperlipidemia, Thyroid Disorder Additional Past Medical History / Comment(s): home O2 3-6L per pt. History of Any Multi-Drug Resistant Organisms: None Reported Past Surgical History: Cholecystectomy Additional Past Surgical History / Comment(s): foot Left plate and pins Past Anesthesia/Blood Transfusion Reactions: No Reported Reaction Past Psychological History: Anxiety Additional Psychological History / Comment(s): Anxiety Smoking Status: Former smoker Past Alcohol Use History: None Reported Additional Past Alcohol Use History / Comment(s): STARTED SMOKING AT AGE 16, SIG OTHER STATED SHE SMOKES 1.5 PPD Past Drug Use History: None Reported Additional Drug Use History / Comment(s): RARE USE OF MARIJUANA - Past Family History Mother Family Medical History: Hypertension Father Family Medical History: Cancer Medications and Allergies Home Medications Medication Instructions Recorded Confirmed Type Albuterol Inhaler [Ventolin Hfa 1 - 2 puff INHALATION RT-Q6H PRN 01/08/15 07/04/24 History Inhaler] Enalapril [Vasotec] 20 mg PO DAILY 07/04/24 07/04/24 History Ergocalciferol [Vitamin D2 (1250 1,250 mcg PO MO 07/04/24 07/04/24 History Mcg = 00147 Iu)] Furosemide [Lasix] 20 mg PO DAILY@1830 07/04/24 07/04/24 History Furosemide [Lasix] 40 mg PO QAM 07/04/24 07/04/24 History HYDROcodone/APAP 10-325MG [[place] 1 tab PO TID PRN 07/04/24 07/04/24 History 10-325] Insulin Glargine,Hum.rec.anlog 70 units SQ DAILY 07/04/24 07/04/24 History [Lantus Solostar Pen] Phentermine HCl [Adipex-P] 37.5 mg PO DAILY 07/04/24 07/04/24 History Rosuvastatin [Crestor] 20 mg PO DAILY 07/04/24 07/04/24 History traZODone HCL [Desyrel] 50 mg PO HS 07/04/24 07/04/24 History Allergies Allergy/AdvReac Type Severity Reaction Status Date / Time Penicillins Allergy Rash/Hives Verified 07/04/24 14:26 Physical Exam Vitals: Vital Signs Temp Pulse Pulse Resp BP BP Pulse Ox 07/05/24 07:00 98.7 F 99 18 119/68 96 07/05/24 00:59 98.5 F 100 18 94/43 94 L 07/04/24 20:06 98.5 F 87 19 111/63 97 07/04/24 20:00 87 19 07/04/24 18:26 98.5 F 83 20 104/50 97 07/04/24 16:44 95 20 117/54 97 07/04/24 10:01 98.3 F 89 20 115/73 95 Intake and Output 07/04/24 07/05/24 07/05/24 22:59 06:59 14:59 Output Total 1600 700 Balance -1600 -700 Output: Urine 1600 700 Uretheral (Rock) 1600 Other: Voiding Method Indwelling Catheter # Bowel Movements 1 Weight 117.934 kg Results 07/05/24 05:42 07/05/24 05:42 Cardiac Enzymes 07/04/24 07/04/24 07/05/24 Range/Units 10:33 10:33 05:42 AST 21 15 (14-36) U/L Troponin I <0.012 (0.000-0.034) ng/mL Coagulation 07/04/24 Range/Units 10:33 PT 11.6 (10.0-12.5) sec APTT 26.7 (22.0-30.0) sec CBC 07/04/24 07/05/24 Range/Units 10:33 05:42 WBC 11.4 H 11.22 H (3.8-10.6) k/uL RBC 4.40 3.90 L (3.80-5.40) m/uL Hgb 12.7 11.3 L (11.4-16.0) gm/dL Hct 42.1 39.1 (34.0-46.0) % Plt Count 190 185 (150-450) k/uL Comprehensive Metabolic Panel 07/04/24 07/05/24 Range/Units 10:33 05:42 Sodium 137 141 (137-145) mmol/L Potassium 4.4 4.3 (3.5-5.1) mmol/L Chloride 92 L 94 L (98-107) mmol/L Carbon Dioxide 37 H 39.1 H (22-30) mmol/L BUN 20 H 17.5 (7-17) mg/dL Creatinine 0.64 0.9 (0.52-1.04) mg/dL Glucose 204 H 197 H (74-99) mg/dL Calcium 8.9 8.6 L (8.4-10.2) mg/dL AST 21 15 (14-36) U/L ALT 12 9 (4-34) U/L Alkaline Phosphatase 98 83 (38-126) U/L Total Protein 6.1 L 5.7 L (6.3-8.2) g/dL Albumin 3.3 L 3.3 L (3.5-5.0) g/dL Current Medications Generic Name Dose Route Start Last Admin Trade Name Freq PRN Reason Stop Dose Admin Acetaminophen 650 mg 07/04/24 11:59 Acetaminophen Tab 325 Mg Tab PO Q6HR PRN Mild Pain or Fever > 100.5 Hydrocodone Bitart/Acetaminophen 1 each 07/04/24 11:59 07/04/24 21:51 Hydrocodone/Apap 5-325mg 1 Each Tab PO 1 each Q4HR PRN Administration Moderate Pain (Scale 4 to 6) Albuterol Sulfate 2.5 mg 07/04/24 15:57 Albuterol Nebulized 2.5 Mg/3 Ml INHALATION RT-Q6H PRN Dyspnea Atorvastatin Calcium 40 mg 07/05/24 09:00 Atorvastatin 40 Mg Tab PO DAILY LOURDES Ergocalciferol 1,250 mcg 07/09/24 09:00 Ergocalciferol 1,250 Mcg (50,000 Iu) Capsule PO MO LOURDES Furosemide 40 mg 07/05/24 08:00 Furosemide 10 Mg/Ml 4 Ml Vial IV Q8HR LOURDES Insulin Glargine 70 unit 07/05/24 09:00 Insulin Glargine (Lantus) 100 Unit/Ml Syr SQ DAILY LOURDES Lisinopril 40 mg 07/05/24 09:00 Lisinopril 20 Mg Tab PO DAILY LOURDES Miscellaneous Information 1 each 07/04/24 16:21 Rx Info: Iv Contrast Was Given 1 Each Misc MISCELLANE 07/06/24 16:21 DAILY PRN Per Protocol Morphine Sulfate 4 mg 07/04/24 11:59 Morphine Sulfate 4 Mg/Ml Syringe IV Q4HR PRN Severe Pain (Scale 7 to 10) Naloxone HCl 0.2 mg 07/04/24 11:59 Naloxone 0.4 Mg/Ml 1 Ml Vial IV Q2M PRN Opioid Reversal Ondansetron HCl 4 mg 07/04/24 11:59 Ondansetron 4 Mg/2 Ml Vial IVP Q8HR PRN Nausea And Vomiting Trazodone HCl 50 mg 07/04/24 21:00 07/04/24 21:53 Trazodone Hcl 50 Mg Tab PO Not Given HS LOURDES Intake and Output 07/04/24 07/05/24 07/05/24 22:59 06:59 14:59 Output Total 1600 700 Balance -1600 -700 Output: Urine 1600 700 Uretheral (Rock) 1600 Other: Voiding Method Indwelling Catheter # Bowel Movements 1 Weight 117.934 kg 07/05/24 05:42 07/05/24 05:42
[2024-07-05] MEDS: ATORVASTATIN 40 MG TAB PO SCH (09:22)
[2024-07-05] MEDS: lisinopriL 20 MG TAB PO SCH (09:22)
--- NOTE | 2024-07-05 09:57 | P.PN ---
Subjective Progress Note Date: 07/05/24 Ajay Robertson, is a 73-year-old female who presented to [facility] emergency room with a chief complaint of worsening shortness of breath, additionally patient was found on the floor in her house, she stated that she fell while asleep and was not able to stand up. She was evaluated in the emergency room vital examination on presentation revealed a temperature of 98.3 pulse 89 respiration 20 blood pressure 115/73 pulse ox 95% on 5 L nasal cannula Laboratory data revealed a white blood count of 11.4 hemoglobin 12.7 platelet count 190 BUN 20 creatinine 0.64 influenza A and B RSV and COVID-19 PCR were all negative Testing in the emergency room revealed chest x-ray revealed pulmonary congestion suggestive of congestive heart failure exacerbation and a new 4.7 masslike consolidation in the right mid to lower lung Patient was admitted to medical floor for further evaluation and treatment Past medical history is significant for history of hypertension, history of hyperlipidemia, history of hypothyroidism, history of diabetes mellitus, history of COPD, history of congestive heart failure, history of morbid obesity, history of recurrent episodes of bilateral lower extremity cellulitis. On review of systems patient is alert and oriented x 3 in no apparent distress, she is complaining of generalized body ache, she is complaining of shortness of breath, otherwise she denies any complaints there is no fever or chills no headache or dizziness no chest pain, she has occasional cough no nausea or vomiting no abdominal pain no diarrhea and no urinary symptoms. On 07/05/2024 patient is alert and oriented x 3. Awaiting consulting providers input. Patient remains on IV Lasix. CT of the chest has been completed. At this time patient denies chest pain. Patient denies nausea vomiting or diarrhea. Patient denies any urinary burning or frequency Objective - Vital Signs Vital signs: Vital Signs Temp 98.7 F 07/05/24 07:00 Pulse 99 07/05/24 07:00 Resp 18 07/05/24 07:00 BP 119/68 07/05/24 07:00 Pulse Ox 96 07/05/24 07:00 FiO2 Intake & Output 07/04/24 07/05/24 07/05/24 18:59 06:59 18:59 Output Total 1600 700 Balance -1600 -700 Weight 117.934 kg 117.934 kg Output: Urine 1600 700 Uretheral (Rock) 1600 Other: Voiding Method Indwelling Catheter # Bowel Movements 1 - Exam In general patient is alert and oriented x 3 in no distress HEENT head normocephalic and atraumatic Neck is supple no JVD no goiter no lymphadenopathy no carotid bruit Chest examination reveals a scattered crackles bilaterally no wheezing Cardiac exam reveals regular heart sounds S1 and S2 no gallops no murmurs Abdomen is soft nontender no organomegaly with normal bowel sounds Extremity exam reveals 3+ edema with erythema and chronic stasis changes, multiple small ulceration with scabbing no cyanosis or clubbing Neurological examination reveals no gross focal deficits - Labs CBC & Chem 7: 07/05/24 05:42 07/05/24 05:42 Labs: Abnormal Lab Results - Last 24 Hours (Table) 07/04/24 07/04/24 07/04/24 Range/Units 10:33 10:33 10:33 WBC 11.4 H (3.8-10.6) k/uL RBC (4.10-5.20) X 10*6/uL Hgb (12.0-15.0) g/dL MCV (80.0-97.0) [place] MCHC 30.3 L (31.0-37.0) g/dL RDW (11.5-14.5) % Neutrophils # 9.6 H (1.3-7.7) k/uL Monocytes # (0.20-1.00) X 10*3/uL Chloride 92 L (98-107) mmol/L Carbon Dioxide 37 H (22-30) mmol/L BUN 20 H (7-17) mg/dL Glucose 204 H (74-99) mg/dL POC Glucose (mg/dL) (70-110) mg/dL Calcium (8.7-10.3) mg/dL Creatine Kinase 151 H (30-135) U/L Total Protein 6.1 L (6.3-8.2) g/dL Albumin 3.3 L (3.5-5.0) g/dL Albumin/Globulin Ratio (1.60-3.17) Ratio Urine Protein Trace H (Negative) Urine Glucose (UA) 1+ H (Negative) 07/05/24 07/05/24 07/05/24 Range/Units 05:42 05:42 06:28 WBC 11.22 H (3.8-10.6) k/uL RBC 3.90 L (4.10-5.20) X 10*6/uL Hgb 11.3 L (12.0-15.0) g/dL MCV 100.3 H (80.0-97.0) [place] MCHC 28.9 L (31.0-37.0) g/dL RDW 15.3 H (11.5-14.5) % Neutrophils # (1.3-7.7) k/uL Monocytes # 1.04 H (0.20-1.00) X 10*3/uL Chloride 94 L (98-107) mmol/L Carbon Dioxide 39.1 H (22-30) mmol/L BUN (7-17) mg/dL Glucose 197 H (74-99) mg/dL POC Glucose (mg/dL) 169 H (70-110) mg/dL Calcium 8.6 L (8.7-10.3) mg/dL Creatine Kinase (30-135) U/L Total Protein 5.7 L (6.3-8.2) g/dL Albumin 3.3 L (3.5-5.0) g/dL Albumin/Globulin Ratio 1.38 L (1.60-3.17) Ratio Urine Protein (Negative) Urine Glucose (UA) (Negative) Assessment and Plan Plan: Acute congestive heart failure exacerbation New 4.7 cm masslike consolidation opacity in the right midlung Fall at home, with generalized body pain Bilateral lower extremity cellulitis, with multiple open ulcers Underlying history of hypertension Underlying history of hyperlipidemia Underlying history of diabetes mellitus Underlying history of COPD Underlying history of morbid obesity At this time patient was admitted to telemetry floor Echocardiogram ordered Home medications reviewed and reordered Patient was started on IV Lasix in the emergency room Consultation for pulmonary, infectious disease, and cardiology initiated Will follow closely
[2024-07-05] MEDS: FUROSEMIDE 10 MG/ML 4 ML VIAL IV SCH (10:00)
[2024-07-05] MEDS: INSULIN GLARGINE (LANTUS) 100 UNIT/ML SYR SQ SCH (10:00)
--- NOTE | 2024-07-05 10:43 | P.CNPUL ---
History of Present Illness Consult date: 07/05/24 Requesting physician: Shalom Gray Reason for consult: dyspnea, cough, hypoxemia, lung mass, abnormal CXR/CT Chief complaint: Shortness of breath. History of present illness: Pulmonary consult dated July 05, 2024. This is a 73-year-old obese white female today seen in room 620. She came to [facility] with 1 day of shortness of breath, leg swelling, and cough. Her viral screen was negative. The patient has smoked for about 40 to 45 years. The only medicine she takes at home for her breathing is albuterol. Her procalcitonin level was 0.05. Chest x-ray showed some fluid overload, but also showed a possible mass in the right midlung, which could be either an actual mass or pseudotumor. A CT scan was ordered. It does show a 7.1 lobulated mass in the right lung. A PET scan was recommended. Currently, the patient is on 4 L of oxygen. No fluids are ordered. She is getting Lasix 40 mg every 8 hours. She also has an updraft ordered. White count 1.22, hemoglobin 11.3, macro 39.1, platelet count 185,000. Coags are normal. Sodium 141, potassium 4.3, chlorides 94, CO2 39, BUN 17.5, creatinine 0.9. Glucose 169. Calcium 8.6. Troponin was negative. N-terminal proBNP was elevated at 1830. Procalcitonin level was 0.05. Urine is negative. Viral screen was negative. Chest x-ray was consistent with fluid overload/CHF. Cardiology has seen the patient. Review of Systems REVIEW OF SYSTEMS: CONSTITUTIONAL: [Negative.] NEUROLOGIC: [ Negative.] HEENT: [ Negative.] CARDIAC: As of breath, and leg swelling. PULMONARY: Shortness of breath. GI: [Negative.] : [Negative.] RHEUMATOLOGIC: [ Negative.] IMMUNOLOGIC: [ Negative.] ENDOCRINE: [Negative. ] DERMATOLOGIC: [Negative.] Past Medical History Past Medical History: Heart Failure, COPD, Diabetes Mellitus, GERD/Reflux, Hyperlipidemia, Thyroid Disorder Additional Past Medical History / Comment(s): home O2 3-6L per pt. History of Any Multi-Drug Resistant Organisms: None Reported Past Surgical History: Cholecystectomy Additional Past Surgical History / Comment(s): foot Left plate and pins Past Anesthesia/Blood Transfusion Reactions: No Reported Reaction Past Psychological History: Anxiety Additional Psychological History / Comment(s): Anxiety Smoking Status: Former smoker Past Alcohol Use History: None Reported Additional Past Alcohol Use History / Comment(s): STARTED SMOKING AT AGE 16, SIG OTHER STATED SHE SMOKES 1.5 PPD Past Drug Use History: None Reported Additional Drug Use History / Comment(s): RARE USE OF MARIJUANA - Past Family History Mother Family Medical History: Hypertension Father Family Medical History: Cancer Medications and Allergies Home Medications Medication Instructions Recorded Confirmed Type Albuterol Inhaler [Ventolin Hfa 1 - 2 puff INHALATION RT-Q6H PRN 01/08/15 History Inhaler] Enalapril [Vasotec] 20 mg PO DAILY 07/04/24 07/04/24 History Ergocalciferol [Vitamin D2 (1250 1,250 mcg PO MO 07/04/24 07/04/24 History Mcg = 85782 Iu)] Furosemide [Lasix] 20 mg PO DAILY@1830 07/04/24 07/04/24 History Furosemide [Lasix] 40 mg PO QAM 07/04/24 07/04/24 History HYDROcodone/APAP 10-325MG [[place] 1 tab PO TID PRN 07/04/24 07/04/24 History 10-325] Insulin Glargine,Hum.rec.anlog 70 units SQ DAILY 07/04/24 07/04/24 History [Lantus Solostar Pen] Phentermine HCl [Adipex-P] 37.5 mg PO DAILY 07/04/24 07/04/24 History Rosuvastatin [Crestor] 20 mg PO DAILY 07/04/24 07/04/24 History traZODone HCL [Desyrel] 50 mg PO HS 07/04/24 07/04/24 History Allergies Allergy/AdvReac Type Severity Reaction Status Date / Time Penicillins Allergy Rash/Hives Verified 07/04/24 14:26 Physical Exam Osteopathic Statement: *. No significant issues noted on an osteopathic structural exam other than those noted in the History and Physical/Consult. Vitals: Vital Signs Temp Pulse Pulse Resp BP BP Pulse Ox 07/05/24 10:26 98.9 F 98 16 113/69 94 L 07/05/24 07:00 98.7 F 99 18 119/68 96 07/05/24 00:59 98.5 F 100 18 94/43 94 L 07/04/24 20:06 98.5 F 87 19 111/63 97 07/04/24 20:00 87 19 07/04/24 18:26 98.5 F 83 20 104/50 97 07/04/24 16:44 95 20 117/54 97 Intake and Output 07/04/24 07/05/24 07/05/24 22:59 06:59 14:59 Output Total 1600 700 Balance -1600 -700 Output: Urine 1600 700 Uretheral (Rock) 1600 Other: Voiding Method Indwelling Catheter # Bowel Movements 1 Weight 117.934 kg No acute distress, oriented 3. No conversational dyspnea. The patient is on 4 L. HEENT examination is grossly unremarkable. Mucous membranes are moist. No oral lesions. Neck supple. Full range of motion. No adenopathy thyromegaly or neck vein distention. Cardiovascular examination reveals regular rhythm rate. S1-S2 normal. No S3 or S4. No discernible murmur noted. Heart sounds are distant. Lungs reveal scattered crackles and rhonchi. No wheezes. Breath sounds are equal. Abdomen obese, with bowel sounds. No masses or tenderness. Extremities are intact. No cyanosis or clubbing. Edema is noted. Skin is without rash or lesion. Neurologic examination is brief but nonfocal. Results - Laboratory Findings CBC and BMP: 07/05/24 05:42 07/05/24 05:42 PT/INR, D-dimer PT 11.6 sec (10.0-12.5) 07/04/24 10:33 INR 1.1 (<1.2) 07/04/24 10:33 Abnormal lab findings: Abnormal Labs 07/04/24 07/04/24 07/04/24 10:33 10:33 10:33 WBC 11.4 H RBC Hgb MCV MCHC 30.3 L RDW Neutrophils # 9.6 H Monocytes # Chloride 92 L Carbon Dioxide 37 H BUN 20 H Glucose 204 H POC Glucose (mg/dL) Calcium Creatine Kinase 151 H Total Protein 6.1 L Albumin 3.3 L Albumin/Globulin Ratio Urine Protein Trace H Urine Glucose (UA) 1+ H 07/05/24 07/05/24 07/05/24 05:42 05:42 06:28 WBC 11.22 H RBC 3.90 L Hgb 11.3 L MCV 100.3 H MCHC 28.9 L RDW 15.3 H Neutrophils # Monocytes # 1.04 H Chloride 94 L Carbon Dioxide 39.1 H BUN Glucose 197 H POC Glucose (mg/dL) 169 H Calcium 8.6 L Creatine Kinase Total Protein 5.7 L Albumin 3.3 L Albumin/Globulin Ratio 1.38 L Urine Protein Urine Glucose (UA) - Diagnostic Findings Chest x-ray: image reviewed CT scan - chest: image reviewed Assessment and Plan Assessment: Acute hypoxemic respiratory failure, likely on the basis of CHF. Possible COPD, from years of tobacco use. Lobulated mass, 7.1 cm, right midlung, possibly consistent with malignancy, given her previous smoking history. History of congestive heart failure. History of diabetes mellitus. History of gastroesophageal reflux disease. History of hyperlipidemia. History of hypothyroidism. Morbid obesity. Plan: Plan dated July 05, 2024. The patient is seen today in room 620. She is laying in bed, eating her breakfast. The patient is currently on 4 L of oxygen. The patient came in with a couple days worth of increasing shortness of breath, lower extremity edema. Chest x-ray and CT scan in my opinion are consistent with fluid overload. BNP was elevated. The patient was a heavy smoker for many years and may have a component of COPD as well. In addition, CT scan suggested a lobulated mass, measuring 7.1 cm in the right midlung. The patient will need an outpatient PET scan. Labs, x-rays, and medications are reviewed. Viral screen was negative. We will continue to follow. Procalcitonin level was 0.05. Dictation was produced using [employer] software. Please excuse any grammatical, word or spelling errors. Time with Patient: Greater than 30
[2024-07-05 12:06] LABS: Glucose,Whole Blood 186 mg/dL (70-110)
[2024-07-05 17:08] LABS: Glucose,Whole Blood 200 mg/dL (70-110)
[2024-07-05 20:20] LABS: Glucose,Whole Blood 188 mg/dL (70-110)
--- NOTE | 2024-07-05 20:37 | P.CONS ---
History of Present Illness - Reason for Consult Consult date: 07/05/24 Lower extremity cellulitis Requesting physician: Shalom Gray - Chief Complaint Weakness fall off the bed x 1 day - History of Present Illness Patient is a 73-year-old female with a past medical history significant for COPD heart failure diabetes mellitus reflux hyperlipidemia presenting to the hospital for evaluation of a fall that happened the day of presentation to the hospital patient accidentally rolled off the couch onto the floor and was too weak to get herself up for 12 hours denies having any headache or loss of consciousness EMS was called and the patient had been subsequently brought into the hospital on arrival to the ER patient was afebrile and no fever have been called subsequently patient was nontachycardic hypotensive mildly hypoxic currently on 4 L nasal oxygen patient did have a white count 11.4 with a left shift creatinine 0.64 electrolytes are normal liver enzymes are normal urine has been negative influenza RSV COVID testing was negative patient did have a chest x-ray correlate for suspected CHF exacerbation with a 4.7 cm mass like consolidation right mid to lower lung subsequently did have a CT of the chest loculated right upper middle lobe mass measuring up to 7.1 send concerning for malignancy also noticed to have increasing swelling to lower extremity especially was consulted today for the lower extremity cellulitis and antibiotics patient complaining of increasing swelling of the lower extremity for the last few days to weeks with both swelling and bruising will be to have some superficial solution has been complaining of some pain to the lower EXTR and mostly dull aching mild to moderate is without radiation Review of Systems Positive point and negatives has been mentioned in the HPI, complete review of systems was performed and all other systems are negative Past Medical History Past Medical History: Heart Failure, COPD, Diabetes Mellitus, GERD/Reflux, Hyperlipidemia, Thyroid Disorder Additional Past Medical History / Comment(s): home O2 3-6L per pt. History of Any Multi-Drug Resistant Organisms: None Reported Past Surgical History: Cholecystectomy Additional Past Surgical History / Comment(s): foot Left plate and pins Past Anesthesia/Blood Transfusion Reactions: No Reported Reaction Past Psychological History: Anxiety Additional Psychological History / Comment(s): Anxiety Smoking Status: Former smoker Past Alcohol Use History: None Reported Additional Past Alcohol Use History / Comment(s): STARTED SMOKING AT AGE 16, SIG OTHER STATED SHE SMOKES 1.5 PPD Past Drug Use History: None Reported Additional Drug Use History / Comment(s): RARE USE OF MARIJUANA - Past Family History Mother Family Medical History: Hypertension Father Family Medical History: Cancer Medications and Allergies Home Medications Medication Instructions Recorded Confirmed Type Albuterol Inhaler [Ventolin Hfa 1 - 2 puff INHALATION RT-Q6H PRN 01/08/15 07/04/24 History Inhaler] Enalapril [Vasotec] 20 mg PO DAILY 07/04/24 07/04/24 History Ergocalciferol [Vitamin D2 (1250 1,250 mcg PO MO 07/04/24 07/04/24 History Mcg = 86518 Iu)] Furosemide [Lasix] 20 mg PO DAILY@1830 07/04/24 07/04/24 History Furosemide [Lasix] 40 mg PO QAM 07/04/24 07/04/24 History HYDROcodone/APAP 10-325MG [[place] 1 tab PO TID PRN 07/04/24 07/04/24 History 10-325] Insulin Glargine,Hum.rec.anlog 70 units SQ DAILY 07/04/24 07/04/24 History [Lantus Solostar Pen] Phentermine HCl [Adipex-P] 37.5 mg PO DAILY 07/04/24 07/04/24 History Rosuvastatin [Crestor] 20 mg PO DAILY 07/04/24 07/04/24 History traZODone HCL [Desyrel] 50 mg PO HS 07/04/24 07/04/24 History Allergies Allergy/AdvReac Type Severity Reaction Status Date / Time Penicillins Allergy Rash/Hives Verified 07/04/24 14:26 Physical Exam Vitals: Vital Signs Temp Pulse Pulse Resp BP BP Pulse Ox 07/05/24 10:26 98.9 F 98 16 113/69 94 L 07/05/24 07:00 98.7 F 99 18 119/68 96 07/05/24 00:59 98.5 F 100 18 94/43 94 L 07/04/24 20:06 98.5 F 87 19 111/63 97 07/04/24 20:00 87 19 07/04/24 18:26 98.5 F 83 20 104/50 97 07/04/24 16:44 95 20 117/54 97 Intake and Output 07/04/24 07/05/24 07/05/24 22:59 06:59 14:59 Output Total 1600 700 Balance -1600 -700 Output: Urine 1600 700 Uretheral (Rock) 1600 Other: Voiding Method Indwelling Catheter # Bowel Movements 1 Weight 117.934 kg GENERAL DESCRIPTION: Elderly female lying in bed, no distress. No tachypnea or accessory muscle of respiration use. HEENT: Shows Pallor , no scleral icterus. Oral mucous membrane is dry. No pharyngeal erythema or thrush NECK: Trachea central, no thyromegaly. LUNGS: Unlabored breathing. Decreased breath sound the base HEART: S1, S2, regular rate and rhythm. No loud murmur ABDOMEN: Soft, no tenderness , guarding or rigidity, no organomegaly EXTREMITIES: Diffuse swelling to bilateral lower extremity with superficial ulceration to the left leg surrounding redness SKIN: No rash, no masses palpable. NEUROLOGICAL: The patient is awake, alert, oriented x3, mood and affect normal. Results CBC & Chem 7: 07/05/24 05:42 07/05/24 05:42 Labs: Abnormal Lab Results - Last 24 Hours (Table) 07/04/24 07/05/24 07/05/24 Range/Units 10:33 05:42 05:42 WBC 11.22 H (4.50-10.00) X 10*3/uL RBC 3.90 L (4.10-5.20) X 10*6/uL Hgb 11.3 L (12.0-15.0) g/dL MCV 100.3 H (80.0-97.0) FL MCHC 28.9 L (32.0-37.0) g/dL RDW 15.3 H (11.5-14.5) % Monocytes # 1.04 H (0.20-1.00) X 10*3/uL Chloride 94 L (96-109) mmol/L Carbon Dioxide 39.1 H (21.6-31.8) mmol/L Glucose 197 H (70-110) mg/dL POC Glucose (mg/dL) (70-110) mg/dL Calcium 8.6 L (8.7-10.3) mg/dL Total Protein 5.7 L (6.2-8.2) g/dL Albumin 3.3 L (3.8-4.9) g/dL Albumin/Globulin Ratio 1.38 L (1.60-3.17) Ratio Urine Protein Trace H (Negative) Urine Glucose (UA) 1+ H (Negative) 07/05/24 Range/Units 06:28 WBC (4.50-10.00) X 10*3/uL RBC (4.10-5.20) X 10*6/uL Hgb (12.0-15.0) g/dL MCV (80.0-97.0) FL MCHC (32.0-37.0) g/dL RDW (11.5-14.5) % Monocytes # (0.20-1.00) X 10*3/uL Chloride (96-109) mmol/L Carbon Dioxide (21.6-31.8) mmol/L Glucose (70-110) mg/dL POC Glucose (mg/dL) 169 H (70-110) mg/dL Calcium (8.7-10.3) mg/dL Total Protein (6.2-8.2) g/dL Albumin (3.8-4.9) g/dL Albumin/Globulin Ratio (1.60-3.17) Ratio Urine Protein (Negative) Urine Glucose (UA) (Negative) Assessment and Plan (1) Leg ulcer, left Current Visit: Yes Status: Acute Code(s): L97.929 - NON-PRS CHRONIC ULC UNSP PRT OF L LOW LEG W UNSP SEVERITY SNOMED Code(s): 56971313 (2) Left leg cellulitis Current Visit: Yes Status: Acute Code(s): L03.116 - CELLULITIS OF LEFT LOWER LIMB SNOMED Code(s): 33504268658780198 (3) Penicillin allergy Current Visit: Yes Status: Acute Code(s): Z88.0 - ALLERGY STATUS TO PENICILLIN SNOMED Code(s): 96502482 Plan: 1patient with diffuse swelling of bilateral lower extremity with superficial solution to the left leg likely venous stasis ulcer with secondary cellulitis likely from gram-positive skin neida. 2patient with a penicillin allergy that will limit the number of antibiotics safe to use. 3we will start the patient cefazolin 2 g every 8 hours. 4local wound care to the left leg with dry Aquacel dressing and Blue wrap to keep the swelling down. We will follow on clinical condition and cultures to further adjust medication if needed Thank you for this consultation we will follow the patient along with you Dictation was produced using [employer] software. please excuse any grammatical, word or spelling errors. Time with Patient: Greater than 30
[2024-07-05 22:21] LABS: Glucose,Whole Blood 157 mg/dL (70-110)
[2024-07-05] MEDS: SODIUM CHLORIDE 0.9% 1,000 ML IV SCH (22:32)
[2024-07-05] MEDS: ACETAMINOPHEN TAB 325 MG TAB PO PRN (22:32)
[2024-07-06 00:38] LABS: Basophils % (A) 0 %; Eosinophils # (A) 0.1 k/uL (0-0.7); Eosinophils % (A) 1 %; HCT 37.9 % (34.0-46.0); HGB 11.5 gm/dL (11.4-16.0); Hypochromasia Marked; Lymphocytes # (A) 1.3 k/uL (1.0-4.8); Lymphocytes % (A) 13 %; MCH 29.4 pg (25.0-35.0); MCHC 30.2 g/dL (31.0-37.0); MCV 97.3 fL (80.0-100.0); Monocytes # (A) 0.6 k/uL (0-1.0); Monocytes % (A) 6 %; Neutrophils % (A) 79 %; Platelet Count 198 k/uL (150-450); RDW 14.9 % (11.5-15.5); WBC 10.2 k/uL (3.8-10.6)
[2024-07-06 00:57] LABS: African American GFR (CKD) 83 (>60 ml/min/1.73 sqM); Blood Urea Nitrogen 29 mg/dL (7-17); Calcium 8.4 mg/dL (8.4-10.2); Chloride 89 mmol/L (98-107); Glucose 132 mg/dL (74-99); Non-African American GFR(CKD) 72 (>60 ml/min/1.73 sqM); Potassium 4.5 mmol/L (3.5-5.1); Sodium 134 mmol/L (137-145)
[2024-07-06 01:04] LABS: Anion Gap 7 mmol/L; Carbon Dioxide 38 mmol/L (22-30)
[2024-07-06 07:17] LABS: Glucose,Whole Blood 110 mg/dL (70-110)
--- NOTE | 2024-07-06 09:43 | P.PN ---
Subjective Progress Note Date: 07/06/24 Ajay Robertson, is a 73-year-old female who presented to [facility] emergency room with a chief complaint of worsening shortness of breath, additionally patient was found on the floor in her house, she stated that she fell while asleep and was not able to stand up. She was evaluated in the emergency room vital examination on presentation revealed a temperature of 98.3 pulse 89 respiration 20 blood pressure 115/73 pulse ox 95% on 5 L nasal cannula Laboratory data revealed a white blood count of 11.4 hemoglobin 12.7 platelet count 190 BUN 20 creatinine 0.64 influenza A and B RSV and COVID-19 PCR were all negative Testing in the emergency room revealed chest x-ray revealed pulmonary congestion suggestive of congestive heart failure exacerbation and a new 4.7 masslike consolidation in the right mid to lower lung Patient was admitted to medical floor for further evaluation and treatment Past medical history is significant for history of hypertension, history of hyperlipidemia, history of hypothyroidism, history of diabetes mellitus, history of COPD, history of congestive heart failure, history of morbid obesity, history of recurrent episodes of bilateral lower extremity cellulitis. On review of systems patient is alert and oriented x 3 in no apparent distress, she is complaining of generalized body ache, she is complaining of shortness of breath, otherwise she denies any complaints there is no fever or chills no headache or dizziness no chest pain, she has occasional cough no nausea or vomiting no abdominal pain no diarrhea and no urinary symptoms. On 07/05/2024 patient is alert and oriented x 3. Awaiting consulting providers input. Patient remains on IV Lasix. CT of the chest has been completed. At this time patient denies chest pain. Patient denies nausea vomiting or diarrhea. Patient denies any urinary burning or frequency On 07/06/2024 patient is alert and oriented x 3. Patient remains on IV Lasix and IV antibiotics. Cardiology pulmonary and infectious disease services are following. Current vital signs temp 98.1, heart rate 67, respiratory rate 15, blood pressure 96/53 with a pulse ox of 93% on 4 L. Patient denies chest pain or shortness of breath. Patient denies nausea vomiting or diarrhea. Patient denies any urinary burning or frequency Objective - Vital Signs Vital signs: Vital Signs Temp 98.8 F 07/06/24 07:00 Pulse 67 07/06/24 07:00 Resp 16 07/06/24 08:19 BP 96/53 07/06/24 07:00 Pulse Ox 93 L 07/06/24 07:00 FiO2 Intake & Output 07/05/24 07/06/24 07/06/24 18:59 06:59 18:59 Intake Total 100 Output Total 200 750 Balance -200 -650 Intake: Oral 100 Output: Urine 200 750 Other: Voiding Method Indwelling Catheter Indwelling Catheter - Exam In general patient is alert and oriented x 3 in no distress HEENT head normocephalic and atraumatic Neck is supple no JVD no goiter no lymphadenopathy no carotid bruit Chest examination reveals a scattered crackles bilaterally no wheezing Cardiac exam reveals regular heart sounds S1 and S2 no gallops no murmurs Abdomen is soft nontender no organomegaly with normal bowel sounds Extremity exam reveals 3+ edema with erythema and chronic stasis changes, multiple small ulceration with scabbing no cyanosis or clubbing Neurological examination reveals no gross focal deficits - Labs CBC & Chem 7: 07/06/24 00:15 07/06/24 00:15 Labs: Abnormal Lab Results - Last 24 Hours (Table) 07/05/24 07/05/24 07/05/24 Range/Units 12:04 17:07 20:02 MCHC (31.0-37.0) g/dL Neutrophils # (1.3-7.7) k/uL Sodium (137-145) mmol/L Chloride (98-107) mmol/L Carbon Dioxide (22-30) mmol/L BUN (7-17) mg/dL Glucose (74-99) mg/dL POC Glucose (mg/dL) 186 H 200 H 188 H (70-110) mg/dL 07/05/24 07/06/24 07/06/24 Range/Units 22:18 00:15 00:15 MCHC 30.2 L (31.0-37.0) g/dL Neutrophils # 8.0 H (1.3-7.7) k/uL Sodium 134 L (137-145) mmol/L Chloride 89 L (98-107) mmol/L Carbon Dioxide 38 H (22-30) mmol/L BUN 29 H (7-17) mg/dL Glucose 132 H (74-99) mg/dL POC Glucose (mg/dL) 157 H (70-110) mg/dL Assessment and Plan Plan: Acute congestive heart failure exacerbation New 4.7 cm masslike consolidation opacity in the right midlung Fall at home, with generalized body pain Bilateral lower extremity cellulitis, with multiple open ulcers Underlying history of hypertension Underlying history of hyperlipidemia Underlying history of diabetes mellitus Underlying history of COPD Underlying history of morbid obesity At this time patient was admitted to telemetry floor Echocardiogram ordered Home medications reviewed and reordered Patient was started on IV Lasix in the emergency room Consultation for pulmonary, infectious disease, and cardiology initiated Will follow closely
--- NOTE | 2024-07-06 09:56 | P.PN ---
Subjective HISTORY OF PRESENT ILLNESS: This is a 73-year-old male with a past medical history significant for COPD, congestive heart failure, hypertension, and hyperlipidemia. 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 We have been asked to see the patient in consultation for congestive heart failure. Patient examined at the bedside. Patient presented to the hospital with a chief complaint of increased lower extremity swelling and shortness of breath. Patient was found to be in CHF and was started on IV Lasix. Patient currently denies any chest pain or pressure. Vital signs are stable. DIAGNOSTICS: - EKG reveals sinus mechanism with no signs of acute ischemia - Chest xray correlate for suspected CHF exacerbation. Additionally there is a 4.7 cm masslike consolidation in the right mid to lower lung. Underlying mass/malignancy is not excluded. - Laboratory data: WBC 11.22. Hemoglobin 11.3. Platelet count 185. Sodium 141. Potassium 4.3. BUN 17. Creatinine 0.9. - Current home cardiac medications include rosuvastatin 20 mg daily, enalapril 20 mg daily, and Lasix 40 mg in the morning and 20 mg in the afternoon. 07/06/2024 Patient examined this morning at the bedside. Patient apparently became hypotensive overnight with blood pressures in the 70s and 80s. Her Lasix was discontinued. However she was continued on lisinopril per primary medicine. Systolic blood pressure this morning is in the 90s. PHYSICAL EXAM: VITAL SIGNS: Reviewed. GENERAL: Well-developed in no acute distress. HEENT: Head is normocephalic. Pupils are equal, round. Sclerae anicteric. Mucous membranes of the mouth are moist. Neck supple. No JVD or thyromegaly LUNGS: Respirations even and unlabored. Lungs essentially clear to auscultation bilaterally. HEART: Regular rate and rhythm. S1 and S2 heard. ABDOMEN: Soft. Nondistended. Nontender. EXTREMITIES: Normal range of motion. No clubbing or cyanosis. Peripheral pulses intact. Bilateral lower extremity edema with evidence of cellulitis NEUROLOGIC: Awake and alert. Oriented x 3. ASSESSMENT: Bilateral lower extremity cellulitis Acute on chronic heart failure, type unknown, echo pending History of COPD Right lung mass, pulmonary consulted for evaluation Hypertension Hyperlipidemia Morbid obesity: BMI 46.1 Hypotension PLAN: 2D echo ordered. Await results. Lasix discontinued overnight secondary to hypotension Discontinue lisinopril due to hypotension Further recommendations pending patient course Nurse practitioner note has been reviewed by physician. Signing provider agrees with the documented findings, assessment, and plan of care documented by [employer] as a scribe. Objective - Vital Signs Vital signs: Vital Signs Temp 98.8 F 07/06/24 07:00 Pulse 67 07/06/24 07:00 Resp 16 07/06/24 08:19 BP 96/53 07/06/24 07:00 Pulse Ox 93 L 07/06/24 07:00 FiO2 Intake & Output 07/05/24 07/06/24 07/06/24 18:59 06:59 18:59 Intake Total 100 Output Total 200 750 Balance -200 -650 Intake: Oral 100 Output: Urine 200 750 Other: Voiding Method Indwelling Catheter Indwelling Catheter - Labs CBC & Chem 7: 07/06/24 00:15 07/06/24 00:15 Labs: Abnormal Lab Results - Last 24 Hours (Table) 07/05/24 07/05/24 07/05/24 Range/Units 12:04 17:07 20:02 MCHC (31.0-37.0) g/dL Neutrophils # (1.3-7.7) k/uL Sodium (137-145) mmol/L Chloride (98-107) mmol/L Carbon Dioxide (22-30) mmol/L BUN (7-17) mg/dL Glucose (74-99) mg/dL POC Glucose (mg/dL) 186 H 200 H 188 H (70-110) mg/dL 07/05/24 07/06/24 07/06/24 Range/Units 22:18 00:15 00:15 MCHC 30.2 L (31.0-37.0) g/dL Neutrophils # 8.0 H (1.3-7.7) k/uL Sodium 134 L (137-145) mmol/L Chloride 89 L (98-107) mmol/L Carbon Dioxide 38 H (22-30) mmol/L BUN 29 H (7-17) mg/dL Glucose 132 H (74-99) mg/dL POC Glucose (mg/dL) 157 H (70-110) mg/dL
--- NOTE | 2024-07-06 11:35 | P.PN ---
Subjective Progress Note Date: 07/06/24 This is a 73-year-old obese white female today seen in room 620. She came to the hospital with 1 day of shortness of breath, leg swelling, and cough. Her viral screen was negative. The patient has smoked for about 40 to 45 years. The only medicine she takes at home for her breathing is albuterol. Her procalcitonin level was 0.05. Chest x-ray showed some fluid overload, but also showed a possible mass in the right midlung, which could be either an actual mass or pseudotumor. A CT scan was ordered. It does show a 7.1 lobulated mass in the right lung. A PET scan was recommended. Currently, the patient is on 4 L of oxygen. No fluids are ordered. She is getting Lasix 40 mg every 8 hours. She also has an updraft ordered. White count 1.22, hemoglobin 11.3, macro 39.1, platelet count 185,000. Coags are normal. Sodium 141, potassium 4.3, chlorides 94, CO2 39, BUN 17.5, creatinine 0.9. Glucose 169. Calcium 8.6. Troponin was negative. N-terminal proBNP was elevated at 1830. Procalcitonin level was 0.05. Urine is negative. Viral screen was negative. Chest x-ray was consistent with fluid overload/CHF. Cardiology has seen the patient. The patient is seen today July 06, 2024 in follow-up on the regular medical floor. She is currently sitting up in bed. Awake and alert in no acute distress. She is maintaining O2 saturations in the 90s on 4 L/min per nasal cannula. She is receiving normal saline at 75 mL/h. White count 10.2. Hemoglobin 11.5. Platelets 198. Sodium 134. Potassium 4.5. Bicarb 38. BUN 29. Creatinine 0.83. Glucose 132. She remains on cefazolin. IV diuretics were discontinued. Objective - Vital Signs Vital signs: Vital Signs Temp 98.8 F 07/06/24 07:00 Pulse 67 07/06/24 07:00 Resp 16 07/06/24 08:19 BP 96/53 07/06/24 07:00 Pulse Ox 93 L 07/06/24 07:00 FiO2 Intake & Output 07/05/24 07/06/24 07/06/24 18:59 06:59 18:59 Intake Total 100 Output Total 200 750 Balance -200 -650 Intake: Oral 100 Output: Urine 200 750 Other: Voiding Method Indwelling Catheter Indwelling Catheter - Exam GENERAL EXAM: Alert, pleasant 73-year-old female patient, on 4 L nasal cannula, In no apparent distress. HEAD: Normocephalic. EYES: Normal reaction of pupils, equal size. NOSE: Clear with pink turbinates. THROAT: No erythema or exudates. NECK: No masses, no JVD. CHEST: No chest wall deformity. LUNGS: Equal air entry with no crackles, wheeze, rhonchi or dullness. CVS: S1 and S2 normal with no audible murmur, regular rhythm. ABDOMEN: No hepatosplenomegaly, normal bowel sounds, no guarding or rigidity. SPINE: No scoliosis or deformity SKIN: No rashes. Chronic venous stasis of the lower extremities. Left leg ulceration. CENTRAL NERVOUS SYSTEM: No focal deficits, tone is normal in all 4 extremities. EXTREMITIES: Changes of chronic venous stasis. There is no peripheral edema. No clubbing, no cyanosis. Peripheral pulses are intact. - Labs CBC & Chem 7: 07/06/24 00:15 07/06/24 00:15 Labs: Abnormal Lab Results - Last 24 Hours (Table) 07/05/24 07/05/24 07/05/24 Range/Units 12:04 17:07 20:02 MCHC (31.0-37.0) g/dL Neutrophils # (1.3-7.7) k/uL Sodium (137-145) mmol/L Chloride (98-107) mmol/L Carbon Dioxide (22-30) mmol/L BUN (7-17) mg/dL Glucose (74-99) mg/dL POC Glucose (mg/dL) 186 H 200 H 188 H (70-110) mg/dL 07/05/24 07/06/24 07/06/24 Range/Units 22:18 00:15 00:15 MCHC 30.2 L (31.0-37.0) g/dL Neutrophils # 8.0 H (1.3-7.7) k/uL Sodium 134 L (137-145) mmol/L Chloride 89 L (98-107) mmol/L Carbon Dioxide 38 H (22-30) mmol/L BUN 29 H (7-17) mg/dL Glucose 132 H (74-99) mg/dL POC Glucose (mg/dL) 157 H (70-110) mg/dL Assessment and Plan Assessment: Acute hypoxemic respiratory failure, likely on the basis of CHF Possible COPD, from years of tobacco use Lobulated mass, 7.1 cm, right midlung, possibly consistent with malignancy, given her previous smoking history Superficial ulceration of the left leg from chronic venous stasis History of congestive heart failure History of diabetes mellitus History of gastroesophageal reflux disease History of hyperlipidemia History of hypothyroidism Morbid obesity Plan: The patient was seen and evaluated Imaging, labs and medications reviewed Patient informed of suspicious lung mass Plan is for outpatient PET scan Titrate down the FiO2 as tolerated Continue bronchodilators Remains on cefazolin for left leg ulcer This patient was seen independently by the pulmonary nurse practitioner addressing pulmonary issues I have personally seen and examined the patient, performed the documentation and the assessment and plan as written. Number of minutes spent on the visit: 24 Dictation was produced using [employer] dictation software. Please excuse any grammatical, word or spelling errors.
[2024-07-06 13:00] LABS: Glucose,Whole Blood 186 mg/dL (70-110)
--- NOTE | 2024-07-06 13:13 | CA ---
Transthoracic Echo Report Name: Ajay Robertson Age: 73 Gender: F : 1950 Exam Date: 07/06/2024 11:14 Exam Location: [facility] Ht (in): 63 Wt (lb): 260 Ordering Physician: Shalom Gray MD Attending/Referring Phys: [employer] Representative Alida Tobin RDCS Procedure CPT: Indications: chf Cardiac Hx: Technical Quality: Good Contrast 1: Total Dose (mL): Contrast 2: Total Dose (mL): MEASUREMENTS (Male / Female) Normal Values 2D ECHO LV Diastolic Diameter PLAX 4.3 cm 4.2 - 5.9 / 3.9 - 5.3 cm LV Systolic Diameter PLAX 3.4 cm IVS Diastolic Thickness 1.6 cm 0.6 - 1.0 / 0.6 - 0.9 cm LVPW Diastolic Thickness 1.3 cm 0.6 - 1.0 / 0.6 - 0.9 cm LV Relative Wall Thickness 0.7 RV Internal Dim ED PLAX 3.6 cm LA Systolic Diameter LX 4.0 cm 3.0 - 4.0 / 2.7 - 3.8 cm LA Volume 52.7 cm??? 18 - 58 / 22 - 52 cm??? LA Volume Index 22.3 cm???/m??? 16 - 28 cm???/m??? M-MODE Aortic Root Diameter MM 3.2 cm DOPPLER AV Peak Velocity 248.7 cm/s AV Peak Gradient 24.8 mmHg AV Mean Velocity 173.8 cm/s AV Mean Gradient 13.7 mmHg AV Velocity Time Integral 44.6 cm LVOT Peak Velocity 191.5 cm/s LVOT Peak Gradient 14.7 mmHg LVOT Velocity Time Integral 26.1 cm MV Area PHT 3.4 cm??? Mitral E Point Velocity 122.8 cm/s Mitral A Point Velocity 129.1 cm/s Mitral E to A Ratio 1.0 MV Deceleration Time 220.7 ms TR Peak Velocity 291.5 cm/s TR Peak Gradient 34.0 mmHg Right Ventricular Systolic Press 54.0 mmHg FINDINGS Left Ventricle Left ventricular ejection fraction is estimated at 55-60 %. Left ventricular cavity size normal. Moderate concentric left ventricular hypertrophy. Flattening of LV septum in systole an diatole. Right Ventricle Mild right ventricular dilatation. Moderate pulmonary hypertension. Right ventricular systolic pressure estimated at 54 mm hg. Right Atrium Normal right atrial size. No right atrial thrombus or mass seen. Left Atrium Mildly increased left atrial diameter. No left atrial thrombus or mass present. Mitral Valve Mitral valve thickened. Mild mitral annular calcification. No evidence for mitral valve prolapse. No mitral stenosis. No mitral regurgitation. Aortic Valve Trileaflet aortic valve. Aortic valve sclerosis. Mild aortic stenosis with a peak gradient of 25 mmHg and a mean gradient of 14 mmHg. Tricuspid Valve Structurally normal tricuspid valve. Mild tricuspid regurgitation. Pulmonic Valve Pulmonic valve not well visualized. Pericardium No pericardial effusion. Aorta Normal size aortic root and proximal ascending aorta. CONCLUSIONS Normal LV function Moderate to severe pulmonary hypertension Mild aortic stenosis Previewed by: Dr. Sadi Alarcon MD (Electronically Signed) Final Date: 06 July 2024 13:11
[2024-07-06] MEDS: QUEtiapine 25 MG TAB PO SCH ×3 (14:41→22:10)
--- NOTE | 2024-07-06 15:36 | P.PN ---
Subjective Progress Note Date: 07/06/24 Principal diagnosis: Reason for follow-up with lower extremity ulcer and cellulitis Patient is a 73-year-old female with a past medical history significant for COPD heart failure diabetes mellitus reflux hyperlipidemia presenting to the hospital for evaluation of a fall that happened the day of presentation to the hospital patient accidentally rolled off the couch onto the floor and was too weak to get herself up, noticed to have bilateral extremity ulcer and cellulitis prompted this consultation. On today's evaluation that is 07/06/2024, the patient continues to be afebrile, the patient is on 3 L nasal cannula oxygen and breathing comfortably, the Pt denies having any chest pain or cough, the patient denies having any abdominal pain no vomiting or any diarrhea and denies pain to the lower extremity. Patient white count is 10.2, creatinine 0.83 Objective - Vital Signs Vital signs: Vital Signs Temp 98.8 F 07/06/24 07:00 Pulse 67 07/06/24 07:00 Resp 16 07/06/24 08:19 BP 96/53 07/06/24 07:00 Pulse Ox 93 L 07/06/24 07:00 FiO2 Intake & Output 07/05/24 07/06/24 07/06/24 18:59 06:59 18:59 Intake Total 100 Output Total 200 750 Balance -200 -650 Intake: Oral 100 Output: Urine 200 750 Other: Voiding Method Indwelling Catheter Indwelling Catheter - Exam GENERAL DESCRIPTION: An elderly female lying in bed in no distress RESPIRATORY SYSTEM: Unlabored breathing , decreased breath sounds at bases HEART: S1 S2 regular rate and rhythm , ABDOMEN: Soft , no tenderness EXTREMITIES: Bilateral lower extremity swelling with ulcerations especially to Left leg - Labs CBC & Chem 7: 07/06/24 00:15 07/06/24 00:15 Labs: Abnormal Lab Results - Last 24 Hours (Table) 07/05/24 07/05/24 07/05/24 Range/Units 17:07 20:02 22:18 MCHC (31.0-37.0) g/dL Neutrophils # (1.3-7.7) k/uL Sodium (137-145) mmol/L Chloride (98-107) mmol/L Carbon Dioxide (22-30) mmol/L BUN (7-17) mg/dL Glucose (74-99) mg/dL POC Glucose (mg/dL) 200 H 188 H 157 H (70-110) mg/dL 07/06/24 07/06/24 07/06/24 Range/Units 00:15 00:15 12:57 MCHC 30.2 L (31.0-37.0) g/dL Neutrophils # 8.0 H (1.3-7.7) k/uL Sodium 134 L (137-145) mmol/L Chloride 89 L (98-107) mmol/L Carbon Dioxide 38 H (22-30) mmol/L BUN 29 H (7-17) mg/dL Glucose 132 H (74-99) mg/dL POC Glucose (mg/dL) 186 H (70-110) mg/dL Assessment and Plan (1) Leg ulcer, left Current Visit: Yes Status: Acute Code(s): L97.929 - NON-PRS CHRONIC ULC UNSP PRT OF L LOW LEG W UNSP SEVERITY SNOMED Code(s): 61966286 (2) Left leg cellulitis Current Visit: Yes Status: Acute Code(s): L03.116 - CELLULITIS OF LEFT LOWER LIMB SNOMED Code(s): 75985684899027695 (3) Penicillin allergy Current Visit: Yes Status: Acute Code(s): Z88.0 - ALLERGY STATUS TO PENICILLIN SNOMED Code(s): 08274527 Plan: 1patient with diffuse swelling of bilateral lower extremity with superficial solution to the left leg likely venous stasis ulcer with secondary cellulitis likely from gram-positive skin neida. 2patient with a penicillin allergy that will limit the number of antibiotics safe to use. 3patient to cefazolin 2 g every 8 hours. 4local wound care to the left leg with dry Aquacel dressing and Blue wrap to keep the swelling down however per the nursing staff the patient has been refusing Dictation was produced using [employer] dictation software. please excuse any grammatical, word or spelling errors. Time with Patient: Less than 30
[2024-07-06 17:05] LABS: Glucose,Whole Blood 188 mg/dL (70-110)
[2024-07-06 19:13] LABS: Glucose,Whole Blood 166 mg/dL (70-110)
[2024-07-07 06:00] LABS: Glucose,Whole Blood 142 mg/dL (70-110)
[2024-07-07] MEDS: INSULIN GLARGINE (LANTUS) 100 UNIT/ML SYR SQ SCH (07:00)
--- NOTE | 2024-07-07 08:56 | P.PN ---
Subjective Progress Note Date: 07/07/24 Ajay Robertson, is a 73-year-old female who presented to [facility] emergency room with a chief complaint of worsening shortness of breath, additionally patient was found on the floor in her house, she stated that she fell while asleep and was not able to stand up. She was evaluated in the emergency room vital examination on presentation revealed a temperature of 98.3 pulse 89 respiration 20 blood pressure 115/73 pulse ox 95% on 5 L nasal cannula Laboratory data revealed a white blood count of 11.4 hemoglobin 12.7 platelet count 190 BUN 20 creatinine 0.64 influenza A and B RSV and COVID-19 PCR were all negative Testing in the emergency room revealed chest x-ray revealed pulmonary congestion suggestive of congestive heart failure exacerbation and a new 4.7 masslike consolidation in the right mid to lower lung Patient was admitted to medical floor for further evaluation and treatment Past medical history is significant for history of hypertension, history of hyperlipidemia, history of hypothyroidism, history of diabetes mellitus, history of COPD, history of congestive heart failure, history of morbid obesity, history of recurrent episodes of bilateral lower extremity cellulitis. On review of systems patient is alert and oriented x 3 in no apparent distress, she is complaining of generalized body ache, she is complaining of shortness of breath, otherwise she denies any complaints there is no fever or chills no headache or dizziness no chest pain, she has occasional cough no nausea or vomiting no abdominal pain no diarrhea and no urinary symptoms. On 07/05/2024 patient is alert and oriented x 3. Awaiting consulting providers input. Patient remains on IV Lasix. CT of the chest has been completed. At this time patient denies chest pain. Patient denies nausea vomiting or diarrhea. Patient denies any urinary burning or frequency On 07/06/2024 patient is alert and oriented x 3. Patient remains on IV Lasix and IV antibiotics. Cardiology pulmonary and infectious disease services are following. Current vital signs temp 98.1, heart rate 67, respiratory rate 15, blood pressure 96/53 with a pulse ox of 93% on 4 L. Patient denies chest pain or shortness of breath. Patient denies nausea vomiting or diarrhea. Patient denies any urinary burning or frequency. On 07/07/2024 patient was seen and examined on the telemetry floor she is somnolent arousable in no apparent distress, yesterday patient was agitated and aggressive with medical staff, Seroquel was added to her medication regimen, however today she is more somnolent, Seroquel will be changed to as needed only. There is no fever or chills no headache or dizziness no chest pain patient still has shortness of breath with any activity and cough no nausea or vomiting no abdominal pain no diarrhea no urinary symptoms. Objective - Vital Signs Vital signs: Vital Signs Temp 98.3 F 07/07/24 07:05 Pulse 107 H 07/07/24 07:05 Resp 20 07/07/24 07:05 BP 157/79 07/07/24 07:05 Pulse Ox 98 07/07/24 07:05 FiO2 Intake & Output 07/06/24 07/07/24 07/07/24 18:59 06:59 18:59 Intake Total 540 Output Total 300 800 Balance 240 -800 Weight 0 g Intake: Oral 540 Output: Urine 300 800 Other: Voiding Method Indwelling Catheter Indwelling Catheter - Exam In general patient is alert and oriented x 3 in no distress HEENT head normocephalic and atraumatic Neck is supple no JVD no goiter no lymphadenopathy no carotid bruit Chest examination reveals a scattered crackles bilaterally no wheezing Cardiac exam reveals regular heart sounds S1 and S2 no gallops no murmurs Abdomen is soft nontender no organomegaly with normal bowel sounds Extremity exam reveals 3+ edema with erythema and chronic stasis changes, multiple small ulceration with scabbing no cyanosis or clubbing Neurological examination reveals no gross focal deficits - Labs CBC & Chem 7: 07/06/24 00:15 07/06/24 00:15 Labs: Abnormal Lab Results - Last 24 Hours (Table) 07/06/24 07/06/24 07/06/24 Range/Units 12:57 17:03 19:10 POC Glucose (mg/dL) 186 H 188 H 166 H (70-110) mg/dL 07/07/24 Range/Units 05:58 POC Glucose (mg/dL) 142 H (70-110) mg/dL Microbiology - Last 24 Hours (Table) 07/05/24 23:33 Blood Culture Gram Stain - Preliminary Blood Blood Culture - Preliminary Molecular ID Assessment and Plan Plan: Acute congestive heart failure exacerbation New 4.7 cm masslike consolidation opacity in the right midlung Fall at home, with generalized body pain Bilateral lower extremity cellulitis, with multiple open ulcers Underlying history of hypertension Underlying history of hyperlipidemia Underlying history of diabetes mellitus Underlying history of COPD Underlying history of morbid obesity At this time patient was admitted to telemetry floor Echocardiogram ordered Home medications reviewed and reordered Patient was started on IV Lasix in the emergency room Consultation for pulmonary, infectious disease, and cardiology initiated Will follow closely
[2024-07-07 09:17] LABS: Basophils # (A) 0.03 X 10*3/uL (0.00-0.10); Basophils % (A) 0.3 %; Eosinophils # (A) 0.02 X 10*3/uL (0.04-0.35); Eosinophils % (A) 0.2 %; HCT 42.6 % (37.2-46.3); HGB 11.9 g/dL (12.0-15.0); Lymphocytes # (A) 1.28 X 10*3/uL (0.90-5.00); Lymphocytes % (A) 12.8 %; MCHC 27.9 g/dL (32.0-37.0); MCV 103.6 FL (80.0-97.0); Mean Platelet Volume 10.7 FL (9.5-12.2); NRBC Per 100 WBC 0 X 10*3/uL (0.00-0.01); Neutrophils # (A) 7.93 X 10*3/uL (1.80-7.70); Neutrophils % (A) 79.3 %; Platelet Count 204 X 10*3/uL (140-440); RBC 4.11 X 10*6/uL (4.10-5.20)
[2024-07-07 09:28] LABS: ALT 9 U/L (8-44); AST 17 U/L (13-35); Albumin 3.5 g/dL (3.8-4.9); Alkaline Phosphatase 81 U/L (41-126); Calcium 8.9 mg/dL (8.7-10.3); Carbon Dioxide 38.8 mmol/L (21.6-31.8); Chloride 98 mmol/L (96-109); Globulin 2.7 g/dL (1.6-3.3); Glucose 153 mg/dL (70-110); Potassium 5.2 mmol/L (3.5-5.5); Sodium 144 mmol/L (135-145); Total Bilirubin 0.3 mg/dL (0.3-1.2); Total Protein 6.2 g/dL (6.2-8.2)
--- NOTE | 2024-07-07 10:56 | P.PN ---
Subjective Progress Note Date: 07/07/24 This is a 73-year-old obese white female today seen in room 620. She came to the hospital with 1 day of shortness of breath, leg swelling, and cough. Her viral screen was negative. The patient has smoked for about 40 to 45 years. The only medicine she takes at home for her breathing is albuterol. Her procalcitonin level was 0.05. Chest x-ray showed some fluid overload, but also showed a possible mass in the right midlung, which could be either an actual mass or pseudotumor. A CT scan was ordered. It does show a 7.1 lobulated mass in the right lung. A PET scan was recommended. Currently, the patient is on 4 L of oxygen. No fluids are ordered. She is getting Lasix 40 mg every 8 hours. She also has an updraft ordered. White count 1.22, hemoglobin 11.3, macro 39.1, platelet count 185,000. Coags are normal. Sodium 141, potassium 4.3, chlorides 94, CO2 39, BUN 17.5, creatinine 0.9. Glucose 169. Calcium 8.6. Troponin was negative. N-terminal proBNP was elevated at 1830. Procalcitonin level was 0.05. Urine is negative. Viral screen was negative. Chest x-ray was consistent with fluid overload/CHF. Cardiology has seen the patient. The patient is seen today July 06, 2024 in follow-up on the regular medical floor. She is currently sitting up in bed. Awake and alert in no acute distress. She is maintaining O2 saturations in the 90s on 4 L/min per nasal cannula. She is receiving normal saline at 75 mL/h. White count 10.2. Hemoglobin 11.5. Platelets 198. Sodium 134. Potassium 4.5. Bicarb 38. BUN 29. Creatinine 0.83. Glucose 132. She remains on cefazolin. IV diuretics were discontinued. The patient is seen today July 07, 2024 in follow-up on the regular medical floor. She is currently resting comfortably in bed. Awake and alert in no acute distress. Maintaining good O2 saturations in the 90s on 5 L/min per nasal cannula. She is receiving normal saline at 50 mL/h. Her blood culture isshowing Enterococcus faecium. She is currently on daptomycin. Remains on bronchodilators. 1.2. Platelets 204. Sodium 144. Potassium 5.2. Bicarb 39. BUN 24. Creatinine 0.6. Glucose 153. Objective - Vital Signs Vital signs: Vital Signs Temp 98.3 F 07/07/24 07:05 Pulse 107 H 07/07/24 07:05 Resp 20 07/07/24 07:05 BP 157/79 07/07/24 07:05 Pulse Ox 98 07/07/24 07:05 FiO2 Intake & Output 07/06/24 07/07/24 07/07/24 18:59 06:59 18:59 Intake Total 540 Output Total 300 800 Balance 240 -800 Weight 0 g Intake: Oral 540 Output: Urine 300 800 Other: Voiding Method Indwelling Catheter Indwelling Catheter Indwelling Catheter - Exam GENERAL EXAM: Alert, pleasant 73-year-old female, resting in bed, on 5 L nasal cannula, in no apparent distress. HEAD: Normocephalic. EYES: Normal reaction of pupils, equal size. NOSE: Clear with pink turbinates. THROAT: No erythema or exudates. NECK: No masses, no JVD. CHEST: No chest wall deformity. LUNGS: Equal air entry with no crackles, wheeze, rhonchi or dullness. CVS: S1 and S2 normal with no audible murmur, regular rhythm. ABDOMEN: No hepatosplenomegaly, normal bowel sounds, no guarding or rigidity. SPINE: No scoliosis or deformity SKIN: No rashes. Chronic venous stasis of the lower extremities. Left leg ulceration. CENTRAL NERVOUS SYSTEM: No focal deficits, tone is normal in all 4 extremities. EXTREMITIES: Changes of chronic venous stasis. There is no peripheral edema. No clubbing, no cyanosis. Peripheral pulses are intact. - Labs CBC & Chem 7: 07/07/24 05:30 07/07/24 05:30 Labs: Abnormal Lab Results - Last 24 Hours (Table) 07/06/24 07/06/24 07/06/24 Range/Units 12:57 17:03 19:10 Hgb (12.0-15.0) g/dL MCV (80.0-97.0) FL MCHC (32.0-37.0) g/dL RDW (11.5-14.5) % Neutrophils # (1.80-7.70) X 10*3/uL Eosinophils # (0.04-0.35) X 10*3/uL Carbon Dioxide (21.6-31.8) mmol/L BUN/Creatinine Ratio (12.00-20.00) Ratio Glucose (70-110) mg/dL POC Glucose (mg/dL) 186 H 188 H 166 H (70-110) mg/dL Albumin (3.8-4.9) g/dL Albumin/Globulin Ratio (1.60-3.17) Ratio 07/07/24 07/07/24 07/07/24 Range/Units 05:30 05:30 05:58 Hgb 11.9 L (12.0-15.0) g/dL MCV 103.6 H (80.0-97.0) FL MCHC 27.9 L (32.0-37.0) g/dL RDW 15.0 H (11.5-14.5) % Neutrophils # 7.93 H (1.80-7.70) X 10*3/uL Eosinophils # 0.02 L (0.04-0.35) X 10*3/uL Carbon Dioxide 38.8 H (21.6-31.8) mmol/L BUN/Creatinine Ratio 40.00 H (12.00-20.00) Ratio Glucose 153 H (70-110) mg/dL POC Glucose (mg/dL) 142 H (70-110) mg/dL Albumin 3.5 L (3.8-4.9) g/dL Albumin/Globulin Ratio 1.30 L (1.60-3.17) Ratio Microbiology - Last 24 Hours (Table) 07/05/24 23:33 Blood Culture Gram Stain - Preliminary Blood Blood Culture - Preliminary Molecular ID Assessment and Plan Assessment: Acute hypoxemic respiratory failure, likely on the basis of chronic obstructive pulmonary disease and diastolic congestive heart failure. Preserved left ventricular systolic function with ejection fraction 55 to 60% Moderate to severe pulmonary hypertension Bacteremia secondary to Enterococcus faecium, currently on daptomycin Possible COPD, from years of tobacco use Lobulated mass, 7.1 cm, right midlung, possibly consistent with malignancy, given her previous smoking history Superficial ulceration of the left leg from chronic venous stasis History of congestive heart failure History of diabetes mellitus History of gastroesophageal reflux disease History of hyperlipidemia History of hypothyroidism Morbid obesity Plan: The patient was seen and evaluated Echocardiogram, labs and medications reviewed Blood cultures positive for Enterococcus faecium Currently on daptomycin Continue bronchodilators Titrate down the FiO2 as tolerated May require home oxygen Plan is for outpatient PET scan This patient was seen independently by the pulmonary nurse practitioner addressing pulmonary issues I have personally seen and examined the patient, performed the documentation and the assessment and plan as written. Number of minutes spent on the visit: 25 Dictation was produced using [employer] dictation software. Please excuse any grammatical, word or spelling errors.
[2024-07-07] MEDS: QUEtiapine 25 MG TAB PO PRN ×2 (11:02→16:44)
[2024-07-07 12:01] LABS: Glucose,Whole Blood 144 mg/dL (70-110)
--- NOTE | 2024-07-07 13:53 | P.PN ---
Subjective Progress Note Date: 07/07/24 The patient is a 73-year-old female patient was admitted to the hospital with bilateral lower extremities edema and cellulitis and she was initially started on Lasix which was subsequently stopped because of low blood pressure which she underwent an echo which revealed normal biventricular systolic function with pulmonary hypertension and mild aortic stenosis. July 07, 2024 The patient was seen this morning she still have some change in mental status and she is somewhat lethargic and possibly dehydrated. She is getting a workup for possible sepsis. Hemodynamically she is stable now. The echo is as described above showed normal LV systolic function with mild aortic stenosis. The physical examination is remarkable for regular rhythm with a systolic murmur at the right and left upper sternal border with severe bilateral lower extremities chronic skin changes and chronic edema ASSESSMENT: Bilateral lower extremity cellulitis Acute on chronic heart failure, type unknown, echo pending History of COPD Right lung mass, pulmonary consulted for evaluation Hypertension Hyperlipidemia Valvular heart disease Low blood pressure which has resolved PLAN: The echocardiogram as described above Continue the current medical regimen Monitor the pressure Further recommendation to follow Objective - Vital Signs Vital signs: Vital Signs Temp 98.3 F 07/07/24 07:05 Pulse 107 H 07/07/24 07:05 Resp 20 07/07/24 07:05 BP 157/79 07/07/24 07:05 Pulse Ox 98 07/07/24 07:05 FiO2 Intake & Output 07/06/24 07/07/24 07/07/24 18:59 06:59 18:59 Intake Total 540 Output Total 300 800 Balance 240 -800 Weight 0 g Intake: Oral 540 Output: Urine 300 800 Other: Voiding Method Indwelling Catheter Indwelling Catheter Indwelling Catheter - Labs CBC & Chem 7: 07/07/24 05:30 07/07/24 05:30 Labs: Abnormal Lab Results - Last 24 Hours (Table) 07/06/24 07/06/24 07/07/24 Range/Units 17:03 19:10 05:30 Hgb 11.9 L (12.0-15.0) g/dL MCV 103.6 H (80.0-97.0) FL MCHC 27.9 L (32.0-37.0) g/dL RDW 15.0 H (11.5-14.5) % Neutrophils # 7.93 H (1.80-7.70) X 10*3/uL Eosinophils # 0.02 L (0.04-0.35) X 10*3/uL Carbon Dioxide (21.6-31.8) mmol/L BUN/Creatinine Ratio (12.00-20.00) Ratio Glucose (70-110) mg/dL POC Glucose (mg/dL) 188 H 166 H (70-110) mg/dL Albumin (3.8-4.9) g/dL Albumin/Globulin Ratio (1.60-3.17) Ratio 07/07/24 07/07/24 07/07/24 Range/Units 05:30 05:58 12:00 Hgb (12.0-15.0) g/dL MCV (80.0-97.0) FL MCHC (32.0-37.0) g/dL RDW (11.5-14.5) % Neutrophils # (1.80-7.70) X 10*3/uL Eosinophils # (0.04-0.35) X 10*3/uL Carbon Dioxide 38.8 H (21.6-31.8) mmol/L BUN/Creatinine Ratio 40.00 H (12.00-20.00) Ratio Glucose 153 H (70-110) mg/dL POC Glucose (mg/dL) 142 H 144 H (70-110) mg/dL Albumin 3.5 L (3.8-4.9) g/dL Albumin/Globulin Ratio 1.30 L (1.60-3.17) Ratio Microbiology - Last 24 Hours (Table) 07/05/24 23:33 Blood Culture Gram Stain - Preliminary Blood Blood Culture - Preliminary Enterococcus faecium Molecular ID
--- NOTE | 2024-07-07 15:47 | P.PN ---
Subjective Progress Note Date: 07/07/24 Principal diagnosis: Reason for follow-up with lower extremity ulcer and cellulitis Patient is a 73-year-old female with a past medical history significant for COPD heart failure diabetes mellitus reflux hyperlipidemia presenting to the hospital for evaluation of a fall that happened the day of presentation to the hospital patient accidentally rolled off the couch onto the floor and was too weak to get herself up, noticed to have bilateral extremity ulcer and cellulitis prompted this consultation. On today's evaluation that is 07/07/2024, patient did have a low-grade fever 100.20 we will follow hide this afternoon patient is currently on 5 L nasal cannula oxygen. The patient noticed to be more restless this morning and received some sedation and is currently sleepy per the family at the bedside no vomiting or diarrhea has been reported. Patient white count is normal at 10, creatinine 0.6 blood cultures came back positive with Enterococcus faecium Objective - Vital Signs Vital signs: Vital Signs Temp 98.3 F 07/07/24 07:05 Pulse 107 H 07/07/24 07:05 Resp 20 07/07/24 07:05 BP 157/79 07/07/24 07:05 Pulse Ox 98 07/07/24 07:05 FiO2 Intake & Output 07/06/24 07/07/24 07/07/24 18:59 06:59 18:59 Intake Total 540 Output Total 300 800 Balance 240 -800 Weight 0 g Intake: Oral 540 Output: Urine 300 800 Other: Voiding Method Indwelling Catheter Indwelling Catheter Indwelling Catheter - Labs CBC & Chem 7: 07/07/24 05:30 07/07/24 05:30 Labs: Abnormal Lab Results - Last 24 Hours (Table) 07/06/24 07/06/24 07/06/24 Range/Units 12:57 17:03 19:10 Hgb (12.0-15.0) g/dL MCV (80.0-97.0) FL MCHC (32.0-37.0) g/dL RDW (11.5-14.5) % Neutrophils # (1.80-7.70) X 10*3/uL Eosinophils # (0.04-0.35) X 10*3/uL Carbon Dioxide (21.6-31.8) mmol/L BUN/Creatinine Ratio (12.00-20.00) Ratio Glucose (70-110) mg/dL POC Glucose (mg/dL) 186 H 188 H 166 H (70-110) mg/dL Albumin (3.8-4.9) g/dL Albumin/Globulin Ratio (1.60-3.17) Ratio 07/07/24 07/07/24 07/07/24 Range/Units 05:30 05:30 05:58 Hgb 11.9 L (12.0-15.0) g/dL MCV 103.6 H (80.0-97.0) FL MCHC 27.9 L (32.0-37.0) g/dL RDW 15.0 H (11.5-14.5) % Neutrophils # 7.93 H (1.80-7.70) X 10*3/uL Eosinophils # 0.02 L (0.04-0.35) X 10*3/uL Carbon Dioxide 38.8 H (21.6-31.8) mmol/L BUN/Creatinine Ratio 40.00 H (12.00-20.00) Ratio Glucose 153 H (70-110) mg/dL POC Glucose (mg/dL) 142 H (70-110) mg/dL Albumin 3.5 L (3.8-4.9) g/dL Albumin/Globulin Ratio 1.30 L (1.60-3.17) Ratio 07/07/24 Range/Units 12:00 Hgb (12.0-15.0) g/dL MCV (80.0-97.0) FL MCHC (32.0-37.0) g/dL RDW (11.5-14.5) % Neutrophils # (1.80-7.70) X 10*3/uL Eosinophils # (0.04-0.35) X 10*3/uL Carbon Dioxide (21.6-31.8) mmol/L BUN/Creatinine Ratio (12.00-20.00) Ratio Glucose (70-110) mg/dL POC Glucose (mg/dL) 144 H (70-110) mg/dL Albumin (3.8-4.9) g/dL Albumin/Globulin Ratio (1.60-3.17) Ratio Microbiology - Last 24 Hours (Table) 07/05/24 23:33 Blood Culture Gram Stain - Preliminary Blood Blood Culture - Preliminary Group D Enterococcus Molecular ID Assessment and Plan (1) Leg ulcer, left Current Visit: Yes Status: Acute Code(s): L97.929 - NON-PRS CHRONIC ULC UNSP PRT OF L LOW LEG W UNSP SEVERITY SNOMED Code(s): 59625292 (2) Left leg cellulitis Current Visit: Yes Status: Acute Code(s): L03.116 - CELLULITIS OF LEFT LOWER LIMB SNOMED Code(s): 05654104940148971 (3) Penicillin allergy Current Visit: Yes Status: Acute Code(s): Z88.0 - ALLERGY STATUS TO PENICILLIN SNOMED Code(s): 72143496 (4) Bacteremia Current Visit: Yes Status: Acute Code(s): R78.81 - BACTEREMIA SNOMED Code(s): 4134226 Plan: 1patient with diffuse swelling of bilateral lower extremity with superficial solution to the left leg likely venous stasis ulcer with secondary cellulitis likely from gram-positive skin neida. 2patient with a penicillin allergy that will limit the number of antibiotics safe to use. 3local wound care to the left leg with dry Aquacel dressing and Blue wrap to keep the swelling down however per the nursing staff the patient has been refusing 4patient clinical course complicated by development of bacteremia with Enterococcus faecium which usually of quite a urinary source urine has been negative once patient is more cooperative we will obtain a CT abdominal pelvis could be related to the left leg wound and cellulitis versus endovascular source blood culture has been repeated document clearance antibiotic allergies to daptomycin Family the bedside question and concerns were answered Dictation was produced using [employer] dictation software. please excuse any grammatical, word or spelling errors. Time with Patient: Less than 30
[2024-07-07 15:50] LABS: Glucose,Whole Blood 94 mg/dL (70-110)
[2024-07-07 16:05] LABS: ABG Base Excess 13.1 mmol/L; ABG Oxygen Saturation 96.5 % (94-97); ABG PH 7.29 (7.35-7.45); ABG PO2 84 mmHg (83-108); ABG TCO2 46 mmol/L (19-24); Allen Test Performed? Yes
[2024-07-07 16:07] LABS: ABG PCO2 91 mmHg (35-45)
[2024-07-07 16:08] LABS: ABG HCO3 43 mmol/L (21-25)
--- NOTE | 2024-07-07 16:22 | XR ---
EXAMINATION TYPE: XR chest 1V portable DATE OF EXAM: 07/07/2024 4:13 PM COMPARISON: 07/04/2024 CLINICAL INDICATION: Female, 73 years old with history of CHF, TECHNIQUE: XR chest 1V portable views of the chest are obtained. FINDINGS: Demonstrated are scattered senescent parenchymal change. Masslike infiltrate right midlung zone persists. Correlate for pneumonia. Follow-up until resolution recommended. The heart is stable. Hilar and mediastinal structures are within normal limits. Degenerative changes are seen of the dorsal spine. IMPRESSION: 1. Masslike infiltrate right midlung zone persists. Correlate for pneumonia. Follow-up until resolut ion recommended. [facility], , 07/07/2024 4:19 PM
[2024-07-07 20:14] LABS: Glucose,Whole Blood 77 mg/dL (70-110)
[2024-07-08] MEDS: HALOPERIDOL LACTATE 5 MG/ML 1 ML VIAL IM PRN
[2024-07-08] MEDS: MORPHINE SULFATE 4 MG/ML SYRINGE IV PRN (04:03)
[2024-07-08 06:24] LABS: Glucose,Whole Blood 52 mg/dL (70-110)
[2024-07-08] MEDS: DEXTROSE 50% SYRINGE 50 ML IVP STA (06:37)
[2024-07-08 07:11] LABS: Glucose,Whole Blood 112 mg/dL (70-110)
--- NOTE | 2024-07-08 07:27 | P.PN ---
Subjective Progress Note Date: 07/08/24 The patient is a 73-year-old female patient was admitted to the hospital with bilateral lower extremities edema and cellulitis and she was initially started on Lasix which was subsequently stopped because of low blood pressure which she underwent an echo which revealed normal biventricular systolic function with pulmonary hypertension and mild aortic stenosis. July 07, 2024 The patient was seen this morning she still have some change in mental status and she is somewhat lethargic and possibly dehydrated. She is getting a workup for possible sepsis. Hemodynamically she is stable now. The echo is as described above showed normal LV systolic function with mild aortic stenosis. The physical examination is remarkable for regular rhythm with a systolic murmur at the right and left upper sternal border with severe bilateral lower extremities chronic skin changes and chronic edema \July 08, 2024 The patient was seen and evaluated this morning with apparently she was transferred from 6 [address]. to [address] She still have change in mental status currently under workup. Hemodynamically she is stable. She still have bilateral lower extremities edema. I am going to give the patient only 1 dose of Lasix IV and continue monitor the kidney function and electrolytes. She is under an investigation for right upper lobe mass with possible need for PET scan. The mass was seen on the CT scan as well as chest x-ray. The physical examination is remarkable for change in mental status with regular rate and rhythm and mild sinus tachycardia and diminished breathing sounds bilaterally which is still h ypoxic requiring BiPAP at 40% ASSESSMENT: Bilateral lower extremity cellulitis Acute on chronic heart failure, type unknown, echo pending History of COPD Right lung mass, pulmonary consulted for evaluation Hypertension Hyperlipidemia Valvular heart disease Low blood pressure which has resolved PLAN: Continue the current medical regimen Give the patient 20 mg of Lasix IV once Follow-up with the blood work from this morning Follow-up with the patient Objective - Vital Signs Vital signs: Vital Signs Temp 97.7 F 07/08/24 02:00 Pulse 105 H 07/08/24 02:00 Resp 26 H 07/08/24 02:00 BP 118/69 07/08/24 02:00 Pulse Ox 93 L 07/08/24 02:00 FiO2 40 07/08/24 04:08 Intake & Output 07/07/24 07/08/24 07/08/24 18:59 06:59 18:59 Output Total 1200 580 Balance -1200 -580 Output: Urine 1200 580 Other: Voiding Method Indwelling Catheter Indwelling Catheter # Bowel Movements 0 - Labs CBC & Chem 7: 07/07/24 05:30 07/07/24 05:30 Labs: Abnormal Lab Results - Last 24 Hours (Table) 07/07/24 07/07/24 07/07/24 Range/Units 05:30 05:30 12:00 Hgb 11.9 L (12.0-15.0) g/dL MCV 103.6 H (80.0-97.0) FL MCHC 27.9 L (32.0-37.0) g/dL RDW 15.0 H (11.5-14.5) % Neutrophils # 7.93 H (1.80-7.70) X 10*3/uL Eosinophils # 0.02 L (0.04-0.35) X 10*3/uL ABG pH (7.35-7.45) ABG pCO2 (35-45) mmHg ABG HCO3 (21-25) mmol/L ABG Total CO2 (19-24) mmol/L Carbon Dioxide 38.8 H (21.6-31.8) mmol/L BUN/Creatinine Ratio 40.00 H (12.00-20.00) Ratio Glucose 153 H (70-110) mg/dL POC Glucose (mg/dL) 144 H (70-110) mg/dL Albumin 3.5 L (3.8-4.9) g/dL Albumin/Globulin Ratio 1.30 L (1.60-3.17) Ratio 07/07/24 07/08/24 07/08/24 Range/Units 16:01 06:21 07:10 Hgb (12.0-15.0) g/dL MCV (80.0-97.0) FL MCHC (32.0-37.0) g/dL RDW (11.5-14.5) % Neutrophils # (1.80-7.70) X 10*3/uL Eosinophils # (0.04-0.35) X 10*3/uL ABG pH 7.29 L (7.35-7.45) ABG pCO2 91 H* (35-45) mmHg ABG HCO3 43 H* (21-25) mmol/L ABG Total CO2 46 H (19-24) mmol/L Carbon Dioxide (21.6-31.8) mmol/L BUN/Creatinine Ratio (12.00-20.00) Ratio Glucose (70-110) mg/dL POC Glucose (mg/dL) 52 L 112 H (70-110) mg/dL Albumin (3.8-4.9) g/dL Albumin/Globulin Ratio (1.60-3.17) Ratio Microbiology - Last 24 Hours (Table) 07/05/24 23:33 Blood Culture Gram Stain - Preliminary Blood Blood Culture - Preliminary Enterococcus faecium Molecular ID
[2024-07-08] MEDS: FUROSEMIDE 10 MG/ML 2 ML VIAL IV ONE (08:26)
[2024-07-08] MEDS: NYSTATIN 100,000 UNIT/GM POWD 15 GM TOPICAL SCH (08:26)
--- NOTE | 2024-07-08 09:02 | P.PN ---
Subjective Progress Note Date: 07/08/24 Ajay Robertson, is a 73-year-old female who presented to [facility] emergency room with a chief complaint of worsening shortness of breath, additionally patient was found on the floor in her house, she stated that she fell while asleep and was not able to stand up. She was evaluated in the emergency room vital examination on presentation revealed a temperature of 98.3 pulse 89 respiration 20 blood pressure 115/73 pulse ox 95% on 5 L nasal cannula Laboratory data revealed a white blood count of 11.4 hemoglobin 12.7 platelet count 190 BUN 20 creatinine 0.64 influenza A and B RSV and COVID-19 PCR were all negative Testing in the emergency room revealed chest x-ray revealed pulmonary congestion suggestive of congestive heart failure exacerbation and a new 4.7 masslike consolidation in the right mid to lower lung Patient was admitted to medical floor for further evaluation and treatment Past medical history is significant for history of hypertension, history of hyperlipidemia, history of hypothyroidism, history of diabetes mellitus, history of COPD, history of congestive heart failure, history of morbid obesity, history of recurrent episodes of bilateral lower extremity cellulitis. On review of systems patient is alert and oriented x 3 in no apparent distress, she is complaining of generalized body ache, she is complaining of shortness of breath, otherwise she denies any complaints there is no fever or chills no headache or dizziness no chest pain, she has occasional cough no nausea or vomiting no abdominal pain no diarrhea and no urinary symptoms. On 07/05/2024 patient is alert and oriented x 3. Awaiting consulting providers input. Patient remains on IV Lasix. CT of the chest has been completed. At this time patient denies chest pain. Patient denies nausea vomiting or diarrhea. Patient denies any urinary burning or frequency On 07/06/2024 patient is alert and oriented x 3. Patient remains on IV Lasix and IV antibiotics. Cardiology pulmonary and infectious disease services are following. Current vital signs temp 98.1, heart rate 67, respiratory rate 15, blood pressure 96/53 with a pulse ox of 93% on 4 L. Patient denies chest pain or shortness of breath. Patient denies nausea vomiting or diarrhea. Patient denies any urinary burning or frequency. On 07/07/2024 patient was seen and examined on the telemetry floor she is somnolent arousable in no apparent distress, yesterday patient was agitated and aggressive with medical staff, Seroquel was added to her medication regimen, however today she is more somnolent, Seroquel will be changed to as needed only. There is no fever or chills no headache or dizziness no chest pain patient still has shortness of breath with any activity and cough no nausea or vomiting no abdominal pain no diarrhea no urinary symptoms. On 07/08/2024 patient was seen and examined on the telemetry floor, she is so mnolent responsive in no apparent distress, currently she is maintained on BiPAP, she had episodes of agitation through the night, she was pulling off her IV in the BiPAP, she received 1 dose of IM Haldol, she is maintained on soft restraints at this time, her vital examination reveals a temperature of 99.8 pulse 109 respiration 22 pulse ox 95% on BiPAP FiO2 40% she is maintained on IV daptomycin infectious disease are following Objective - Vital Signs Vital signs: Vital Signs Temp 99.8 F H 07/08/24 08:10 Pulse 109 H 07/08/24 08:10 Resp 22 07/08/24 08:10 BP 118/69 07/08/24 02:00 Pulse Ox 95 07/08/24 08:10 FiO2 40 07/08/24 08:10 Intake & Output 07/07/24 07/08/24 07/08/24 18:59 06:59 18:59 Output Total 1200 580 Balance -1200 -580 Output: Urine 1200 580 Other: Voiding Method Indwelling Catheter Indwelling Catheter # Bowel Movements 0 - Exam In general patient is alert and oriented x 3 in no distress HEENT head normocephalic and atraumatic Neck is supple no JVD no goiter no lymphadenopathy no carotid bruit Chest examination reveals a scattered crackles bilaterally no wheezing Cardiac exam reveals regular heart sounds S1 and S2 no gallops no murmurs Abdomen is soft nontender no organomegaly with normal bowel sounds Extremity exam reveals 3+ edema with erythema and chronic stasis changes, multiple small ulceration with scabbing no cyanosis or clubbing Neurological examination reveals no gross focal deficits - Labs CBC & Chem 7: 07/07/24 05:30 07/07/24 05:30 Labs: Abnormal Lab Results - Last 24 Hours (Table) 07/07/24 07/07/24 07/07/24 Range/Units 05:30 05:30 12:00 Hgb 11.9 L (12.0-15.0) g/dL MCV 103.6 H (80.0-97.0) FL MCHC 27.9 L (32.0-37.0) g/dL RDW 15.0 H (11.5-14.5) % Neutrophils # 7.93 H (1.80-7.70) X 10*3/uL Eosinophils # 0.02 L (0.04-0.35) X 10*3/uL ABG pH (7.35-7.45) ABG pCO2 (35-45) mmHg ABG HCO3 (21-25) mmol/L ABG Total CO2 (19-24) mmol/L Carbon Dioxide 38.8 H (21.6-31.8) mmol/L BUN/Creatinine Ratio 40.00 H (12.00-20.00) Ratio Glucose 153 H (70-110) mg/dL POC Glucose (mg/dL) 144 H (70-110) mg/dL Albumin 3.5 L (3.8-4.9) g/dL Albumin/Globulin Ratio 1.30 L (1.60-3.17) Ratio 07/07/24 07/08/24 07/08/24 Range/Units 16:01 06:21 07:10 Hgb (12.0-15.0) g/dL MCV (80.0-97.0) FL MCHC (32.0-37.0) g/dL RDW (11.5-14.5) % Neutrophils # (1.80-7.70) X 10*3/uL Eosinophils # (0.04-0.35) X 10*3/uL ABG pH 7.29 L (7.35-7.45) ABG pCO2 91 H* (35-45) mmHg ABG HCO3 43 H* (21-25) mmol/L ABG Total CO2 46 H (19-24) mmol/L Carbon Dioxide (21.6-31.8) mmol/L BUN/Creatinine Ratio (12.00-20.00) Ratio Glucose (70-110) mg/dL POC Glucose (mg/dL) 52 L 112 H (70-110) mg/dL Albumin (3.8-4.9) g/dL Albumin/Globulin Ratio (1.60-3.17) Ratio Microbiology - Last 24 Hours (Table) 07/05/24 23:33 Blood Culture Gram Stain - Preliminary Blood Blood Culture - Preliminary Enterococcus faecium Molecular ID Assessment and Plan Plan: Acute congestive heart failure exacerbation New 4.7 cm masslike consolidation opacity in the right midlung Fall at home, with generalized body pain Bilateral lower extremity cellulitis, with multiple open ulcers Underlying history of hypertension Underlying history of hyperlipidemia Underlying history of diabetes mellitus Underlying history of COPD Underlying history of morbid obesity At this time patient was admitted to telemetry floor Echocardiogram ordered Home medications reviewed and reordered Patient was started on IV Lasix in the emergency room Consultation for pulmonary, infectious disease, and cardiology initiated Will follow closely
[2024-07-08 09:29] LABS: Basophils % (A) 0 %; Eosinophils % (A) 1 %; HCT 38.3 % (34.0-46.0); HGB 11.2 gm/dL (11.4-16.0); Hypochromasia Marked; Lymphocytes # (A) 1.2 k/uL (1.0-4.8); Lymphocytes % (A) 15 %; MCH 28.8 pg (25.0-35.0); MCHC 29.2 g/dL (31.0-37.0); MCV 98.4 fL (80.0-100.0); Mean Platelet Volume 7.8; Monocytes # (A) 0.6 k/uL (0-1.0); Monocytes % (A) 7 %; Neutrophils # (A) 5.9 k/uL (1.3-7.7); Neutrophils % (A) 76 %; Platelet Count 173 k/uL (150-450); RBC 3.89 m/uL (3.80-5.40); RDW 14.6 % (11.5-15.5); WBC 7.8 k/uL (3.8-10.6)
[2024-07-08 09:30] LABS: ALT 11 U/L (4-34); AST 23 U/L (14-36); African American GFR (CKD) >90 (>60 ml/min/1.73 sqM); Alkaline Phosphatase 72 U/L (38-126); Anion Gap 6 mmol/L; Blood Urea Nitrogen 29 mg/dL (7-17); Chloride 93 mmol/L (98-107); Glucose 87 mg/dL (74-99); Non-African American GFR(CKD) >90 (>60 ml/min/1.73 sqM); Potassium 4.5 mmol/L (3.5-5.1); Sodium 139 mmol/L (137-145); Total Bilirubin 0.7 mg/dL (0.2-1.3); Total Protein 5.8 g/dL (6.3-8.2)
[2024-07-08 10:07] LABS: Calcium 8.9 mg/dL (8.4-10.2)
[2024-07-08 10:08] LABS: Carbon Dioxide 40 mmol/L (22-30)
[2024-07-08 11:18] LABS: Glucose,Whole Blood 74 mg/dL (70-110)
--- NOTE | 2024-07-08 11:33 | P.PN ---
Subjective Progress Note Date: 07/08/24 Principal diagnosis: Shortness of breath. This is a 73-year-old obese white female today seen in room 620. She came to the hospital with 1 day of shortness of breath, leg swelling, and cough. Her viral screen was negative. The patient has smoked for about 40 to 45 years. The only medicine she takes at home for her breathing is albuterol. Her procalcitonin level was 0.05. Chest x-ray showed some fluid overload, but also showed a possible mass in the right midlung, which could be either an actual mass or pseudotumor. A CT scan was ordered. It does show a 7.1 lobulated mass in the right lung. A PET scan was recommended. Currently, the patient is on 4 L of oxygen. No fluids are ordered. She is getting Lasix 40 mg every 8 hours. She also has an updraft ordered. White count 1.22, hemoglobin 11.3, macro 39.1, platelet count 185,000. Coags are normal. Sodium 141, potassium 4.3, chlorides 94, CO2 39, BUN 17.5, creatinine 0.9. Glucose 169. Calcium 8.6. Troponin was negative. N-terminal proBNP was elevated at 1830. Procalcitonin level was 0.05. Urine is negative. Viral screen was negative. Chest x-ray was consistent with fluid overload/CHF. Cardiology has seen the patient. The patient is seen today July 06, 2024 in follow-up on the regular medical floor. She is currently sitting up in bed. Awake and alert in no acute distress. She is maintaining O2 saturations in the 90s on 4 L/min per nasal cannula. She is receiving normal saline at 75 mL/h. White count 10.2. Hemoglobin 11.5. Platelets 198. Sodium 134. Potassium 4.5. Bicarb 38. BUN 29. Creatinine 0.83. Glucose 132. She remains on cefazolin. IV diuretics were discontinued. The patient is seen today July 07, 2024 in follow-up on the regular medical floor. She is currently resting comfortably in bed. Awake and alert in no acute distress. Maintaining good O2 saturations in the 90s on 5 L/min per nasal cannula. She is receiving normal saline at 50 mL/h. Her blood culture isshowing Enterococcus faecium. She is currently on daptomycin. Remains on bronchodilators. 1.2. Platelets 204. Sodium 144. Potassium 5.2. Bicarb 39. BUN 24. Creatinine 0.6. Glucose 153. Progress note dated July 08, 2024. The patient was moved down to the third floor, sometime yesterday or last night, for respiratory distress. I was never notified. The patient was seen today in room 360. She was on BiPAP, with settings of 12/5, and 40%. She was getting saline at 20 cc an hour. A blood gas was done on 44% oxygen showing a pO2 of 84, pCO2 of 91, pH is 7.29. Her blood cultures were positive for Enterococcus faecium. For that reason, she is on daptomycin. Current labs include a white count 7.8, hemoglobin 11.2, hematocrit 38.3, and a platelet count of 173,000. S odium 139, potassium 4.5, chlorides 93, CO2 40, BUN 29, and creatinine 0.58. Glucose 74. Albumin is 3. Chest x-ray done yesterday, continues to show me in addition, there is diffuse changes, consistent with fluid overload and/or pneumonia. Objective - Vital Signs Vital signs: Vital Signs Temp 99.8 F H 07/08/24 08:10 Pulse 109 H 07/08/24 08:10 Resp 22 07/08/24 08:10 BP 118/69 07/08/24 02:00 Pulse Ox 95 07/08/24 08:10 FiO2 40 07/08/24 08:40 Intake & Output 07/07/24 07/08/24 07/08/24 18:59 06:59 18:59 Output Total 8921 470 8858 Balance -1200 -580 -1350 Output: Urine 4384 699 3460 Other: Voiding Method Indwelling Catheter Indwelling Catheter Indwelling Catheter # Bowel Movements 0 - Exam No acute distress, lethargic, with mild respiratory distress, currently on BiPAP. HEENT examination is grossly unremarkable. Mucous membranes are moist. No oral lesions. Neck supple. Full range of motion. No adenopathy thyromegaly or neck vein distention. Cardiovascular examination reveals regular rhythm rate. S1-S2 normal. No S3 or S4. No discernible murmur noted. Heart sounds are distant. Lungs reveal bibasilar crackles. Scattered rhonchi are also noted. No wheezes. Breath sounds are equal bilaterally. Abdomen soft bowel sounds are heard. No masses or tenderness. Extremities are intact. No cyanosis or clubbing. Trace edema. Skin is without rash or lesion. Neurologic examination is brief but nonfocal. - Labs CBC & Chem 7: 07/08/24 09:02 07/08/24 09:02 Labs: Abnormal Lab Results - Last 24 Hours (Table) 07/07/24 07/07/24 07/08/24 Range/Units 12:00 16:01 06:21 Hgb (11.4-16.0) gm/dL MCHC (31.0-37.0) g/dL ABG pH 7.29 L (7.35-7.45) ABG pCO2 91 H* (35-45) mmHg ABG HCO3 43 H* (21-25) mmol/L ABG Total CO2 46 H (19-24) mmol/L Chloride (98-107) mmol/L Carbon Dioxide (22-30) mmol/L BUN (7-17) mg/dL POC Glucose (mg/dL) 144 H 52 L (70-110) mg/dL Total Protein (6.3-8.2) g/dL Albumin (3.5-5.0) g/dL 07/08/24 07/08/24 07/08/24 Range/Units 07:10 09:02 09:02 Hgb 11.2 L (11.4-16.0) gm/dL MCHC 29.2 L (31.0-37.0) g/dL ABG pH (7.35-7.45) ABG pCO2 (35-45) mmHg ABG HCO3 (21-25) mmol/L ABG Total CO2 (19-24) mmol/L Chloride 93 L (98-107) mmol/L Carbon Dioxide 40 H (22-30) mmol/L BUN 29 H (7-17) mg/dL POC Glucose (mg/dL) 112 H (70-110) mg/dL Total Protein 5.8 L (6.3-8.2) g/dL Albumin 3.0 L (3.5-5.0) g/dL Microbiology - Last 24 Hours (Table) 07/05/24 23:33 Blood Culture Gram Stain - Preliminary Blood Blood Culture - Preliminary Enterococcus faecium Molecular ID Assessment and Plan Assessment: Acute hypoxemic respiratory failure, likely on the basis of CHF. Possible COPD, from years of tobacco use. Lobulated mass, 7.1 cm, right midlung, possibly consistent with malignancy, given her previous smoking history. History of congestive heart failure. History of diabetes mellitus. History of gastroesophageal reflux disease. History of hyperlipidemia. History of hypothyroidism. Morbid obesity. Plan: Plan dated July 05, 2024. The patient is seen today in room 620. She is laying in bed, eating her breakfast. The patient is currently on 4 L of oxygen. The patient came in with a couple days worth of increasing shortness of breath, lower extremity edema. Chest x-ray and CT scan in my opinion are consistent with fluid overload. BNP was elevated. The patient was a heavy smoker for many years and may have a component of COPD as well. In addition, CT scan suggested a lobulated mass, measuring 7.1 cm in the right midlung. The patient will need an outpatient PET scan. Labs, x-rays, and medications are reviewed. Viral screen was negative. We will continue to follow. Procalcitonin level was 0.05. Dictation was produced using [employer] software. Please excuse any grammatical, word or spelling errors. Plan dated July 08, 2024. The patient was previously in the [facility]. She was admitted with a diagnosis of CHF, and lung mass. Sometime yesterday, she was moved down to the third floor. Our team was never notified. She was placed on BiPAP, and is currently on BiPAP, with settings of 12/5, and 40%. She is getting saline at 20 cc an hour. She continues on daptomycin for Enterococcus infection. Blood gases done yesterday show pO2 of 84, pCO2 of 91, pH is 7.29. The patient's procalcitonin level was normal. Labs, x-rays, and all medications are reviewed. The patient is overall prognosis remains guarded. We will continue to follow make recommendations along the way. Dictation was produced using [employer] software. Please excuse any grammatical, word or spelling errors. Time with Patient: Less than 30
[2024-07-08] MEDS: ACETAMINOPHEN IV (For NPO) 1,000 MG in EMPTY BAG 1 BAG IVPB PRN (12:34)
--- NOTE | 2024-07-08 13:14 | P.PN ---
Subjective Progress Note Date: 07/08/24 Principal diagnosis: Reason for follow-up with lower extremity ulcer and cellulitis Patient is a 73-year-old female with a past medical history significant for COPD heart failure diabetes mellitus reflux hyperlipidemia presenting to the hospital for evaluation of a fall that happened the day of presentation to the hospital patient accidentally rolled off the couch onto the floor and was too weak to get herself up, noticed to have bilateral extremity ulcer and cellulitis prompted this consultation. On today's evaluation that is 07/08/2024, Patient did have worsening of respiratory status requiring BiPAP and transferred to telemetry unit, patient did have a fever of 101.2 F this morning remains to be on BiPAP lethargic cannot provide any history. Patient white count 7.8, creatinine 0.58 blood culture repeat pending chest x- ray masslike infiltrate right midlung zone correlate for pneumonia Objective - Vital Signs Vital signs: Vital Signs Temp 101.2 F H 07/08/24 11:39 Pulse 91 07/08/24 11:39 Resp 21 07/08/24 11:39 BP 105/57 07/08/24 11:39 Pulse Ox 94 L 07/08/24 11:39 FiO2 40 07/08/24 11:57 Intake & Output 07/07/24 07/08/24 07/08/24 18:59 06:59 18:59 Output Total 2167 468 7335 Balance -1200 -580 -1350 Output: Urine 2203 960 8546 Other: Voiding Method Indwelling Catheter Indwelling Catheter Indwelling Catheter # Bowel Movements 0 - Exam GENERAL DESCRIPTION: An elderly female lying in bed in no distress RESPIRATORY SYSTEM: Unlabored breathing , decreased breath sounds at bases HEART: S1 S2 regular rate and rhythm , ABDOMEN: Soft , no tenderness EXTREMITIES: Bilateral lower extremity swelling with ulcerations especially to Left leg - Labs CBC & Chem 7: 07/08/24 09:02 07/08/24 09:02 Labs: Abnormal Lab Results - Last 24 Hours (Table) 07/07/24 07/08/24 07/08/24 Range/Units 16:01 06:21 07:10 Hgb (11.4-16.0) gm/dL MCHC (31.0-37.0) g/dL ABG pH 7.29 L (7.35-7.45) ABG pCO2 91 H* (35-45) mmHg ABG HCO3 43 H* (21-25) mmol/L ABG Total CO2 46 H (19-24) mmol/L Chloride (98-107) mmol/L Carbon Dioxide (22-30) mmol/L BUN (7-17) mg/dL POC Glucose (mg/dL) 52 L 112 H (70-110) mg/dL Total Protein (6.3-8.2) g/dL Albumin (3.5-5.0) g/dL 07/08/24 07/08/24 Range/Units 09:02 09:02 Hgb 11.2 L (11.4-16.0) gm/dL MCHC 29.2 L (31.0-37.0) g/dL ABG pH (7.35-7.45) ABG pCO2 (35-45) mmHg ABG HCO3 (21-25) mmol/L ABG Total CO2 (19-24) mmol/L Chloride 93 L (98-107) mmol/L Carbon Dioxide 40 H (22-30) mmol/L BUN 29 H (7-17) mg/dL POC Glucose (mg/dL) (70-110) mg/dL Total Protein 5.8 L (6.3-8.2) g/dL Albumin 3.0 L (3.5-5.0) g/dL Microbiology - Last 24 Hours (Table) 07/05/24 23:33 Blood Culture Gram Stain - Preliminary Blood Blood Culture - Preliminary Enterococcus faecium Molecular ID Assessment and Plan (1) Leg ulcer, left Current Visit: Yes Status: Acute Code(s): L97.929 - NON-PRS CHRONIC ULC UNSP PRT OF L LOW LEG W UNSP SEVERITY SNOMED Code(s): 69182347 (2) Left leg cellulitis Current Visit: Yes Status: Acute Code(s): L03.116 - CELLULITIS OF LEFT LOWER LIMB SNOMED Code(s): 99339748065736092 (3) Penicillin allergy Current Visit: Yes Status: Acute Code(s): Z88.0 - ALLERGY STATUS TO PENICILLIN SNOMED Code(s): 98406045 (4) Bacteremia Current Visit: Yes Status: Acute Code(s): R78.81 - BACTEREMIA SNOMED Code (s): 2576456 Plan: 1patient with diffuse swelling of bilateral lower extremity with superficial solution to the left leg likely venous stasis ulcer with secondary cellulitis likely from gram-positive skin neida. 2patient with a penicillin allergy that will limit the number of antibiotics safe to use. 3local wound care to the left leg with dry Aquacel dressing and Blue wrap to keep the swelling down however per the nursing staff the patient has been r efusing 4patient did have persistent fever despite being on daptomycin for her bacteremia blood culture has been repeated we will add cefepime to cover for possible gram-negative pneumonia prognosis guarded Dictation was produced using [employer] dictation software. please excuse any grammatical, word or spelling errors. Time with Patient: Less than 30
[2024-07-08] MEDS: CEFEPIME 2 GM in SODIUM CHLORIDE 0.9% 100 ML IVPB SCH (14:01)
[2024-07-08 16:18] LABS: Glucose,Whole Blood 52 mg/dL (70-110)
[2024-07-08 16:20] LABS: Glucose,Whole Blood 52 mg/dL (70-110)
[2024-07-08 16:39] LABS: Glucose,Whole Blood 130 mg/dL (70-110)
[2024-07-08 19:59] LABS: Glucose,Whole Blood 73 mg/dL (70-110)
[2024-07-09 01:51] LABS: Glucose,Whole Blood 80 mg/dL (70-110)
[2024-07-09 05:58] LABS: Glucose,Whole Blood 65 mg/dL (70-110)
[2024-07-09 06:06] LABS: Basophils % (A) 0 %; Eosinophils # (A) 0.1 k/uL (0-0.7); Eosinophils % (A) 1 %; HCT 35.4 % (34.0-46.0); HGB 10.6 gm/dL (11.4-16.0); Hypochromasia Marked; Lymphocytes # (A) 1.5 k/uL (1.0-4.8); Lymphocytes % (A) 21 %; MCH 28.8 pg (25.0-35.0); Mean Platelet Volume 7.7; Monocytes # (A) 0.5 k/uL (0-1.0); Monocytes % (A) 7 %; Neutrophils # (A) 4.8 k/uL (1.3-7.7); Neutrophils % (A) 68 %; Platelet Count 151 k/uL (150-450); RBC 3.69 m/uL (3.80-5.40); RDW 14.4 % (11.5-15.5); WBC 7.1 k/uL (3.8-10.6)
[2024-07-09] MEDS: DEXTROSE 50% SYRINGE 50 ML IVP STA (06:45)
[2024-07-09 06:46] LABS: ALT 14 U/L (4-34); AST 40 U/L (14-36); African American GFR (CKD) >90 (>60 ml/min/1.73 sqM); Albumin 2.8 g/dL (3.5-5.0); Alkaline Phosphatase 66 U/L (38-126); Blood Urea Nitrogen 29 mg/dL (7-17); Calcium 8.8 mg/dL (8.4-10.2); Chloride 93 mmol/L (98-107); Glucose 61 mg/dL (74-99); Non-African American GFR(CKD) >90 (>60 ml/min/1.73 sqM); Potassium 4.2 mmol/L (3.5-5.1); Sodium 140 mmol/L (137-145); Total Bilirubin 0.7 mg/dL (0.2-1.3); Total Protein 5.5 g/dL (6.3-8.2)
[2024-07-09 06:52] LABS: Anion Gap 3 mmol/L
[2024-07-09 06:59] LABS: Carbon Dioxide 44 mmol/L (22-30)
[2024-07-09 07:08] LABS: Glucose,Whole Blood 98 mg/dL (70-110)
[2024-07-09] MEDS: ERGOCALCIFEROL 1,250 MCG (50,000 IU) CAPSULE PO SCH (08:05)
[2024-07-09 11:18] LABS: Glucose,Whole Blood 83 mg/dL (70-110)
[2024-07-09 12:40] LABS: ABG Base Excess 17.4 mmol/L; ABG Oxygen Saturation 99.8 % (94-97); ABG PH 7.34 (7.35-7.45); ABG PO2 162 mmHg (83-108); ABG TCO2 49 mmol/L (19-24); Allen Test Performed? Yes
[2024-07-09 12:41] LABS: ABG PCO2 86 mmHg (35-45)
[2024-07-09 12:42] LABS: ABG HCO3 47 mmol/L (21-25)
--- NOTE | 2024-07-09 12:47 | XR ---
EXAMINATION TYPE: XR chest 1V portable DATE OF EXAM: 07/09/2024 12:26 PM COMPARISON: CT/chest radiograph CLINICAL INDICATION: Female, 73 years old with history of sob; [facility] TECHNIQUE: XR chest 1V portable Frontal view of the chest. FINDINGS: Lungs/Pleura: There is no evidence of pleural effusion, focal consolidation, or pneumothorax. Pulmonary vascularity: Pulmonary vascular congestion. Heart/mediastinum: Cardiomediastinal silhouette is enlarged. Musculoskeletal: No acute osseous pathology. IMPRESSION: 1. Right midlung masslike opacity unchanged from 07/07/2024. 2. Mild cardiomegaly with pulmonary vascular congestion. [facility], , 07/09/2024 12:45 PM
[2024-07-09] MEDS: FUROSEMIDE 10 MG/ML 2 ML VIAL IV ONE (12:53)
--- NOTE | 2024-07-09 15:50 | P.PN ---
Subjective Progress Note Date: 07/09/24 This is a 73-year-old obese white female today seen in room 620. She came to the hospital with 1 day of shortness of breath, leg swelling, and cough. Her viral screen was negative. The patient has smoked for about 40 to 45 years. The only medicine she takes at home for her breathing is albuterol. Her procalcitonin level was 0.05. Chest x-ray showed some fluid overload, but also showed a possible mass in the right midlung, which could be either an actual mass or pseudotumor. A CT scan was ordered. It does show a 7.1 lobulated mass in the right lung. A PET scan was recommended. Currently, the patient is on 4 L of oxygen. No fluids are ordered. She is getting Lasix 40 mg every 8 hours. She also has an updraft ordered. White count 1.22, hemoglobin 11.3, macro 39.1, platelet count 185,000. Coags are normal. Sodium 141, potassium 4.3, chlorides 94, CO2 39, BUN 17.5, creatinine 0.9. Glucose 169. Calcium 8.6. Troponin was negative. N-terminal proBNP was elevated at 1830. Procalcitonin level was 0.05. Urine is negative. Viral screen was negative. Chest x-ray was consistent with fluid overload/CHF. Cardiology has seen the patient. The patient is seen today July 06, 2024 in follow-up on the regular medical floor. She is currently sitting up in bed. Awake and alert in no acute distress. She is maintaining O2 saturations in the 90s on 4 L/min per nasal cannula. She is receiving normal saline at 75 mL/h. White count 10.2. Hemoglobin 11.5. Platelets 198. Sodium 134. Potassium 4.5. Bicarb 38. BUN 29. Creatinine 0.83. Glucose 132. She remains on cefazolin. IV diuretics were discontinued. The patient is seen today July 07, 2024 in follow-up on the regular medical floor. She is currently resting comfortably in bed. Awake and alert in no acute distress. Maintaining good O2 saturations in the 90s on 5 L/min per nasal cannula. She is receiving normal saline at 50 mL/h. Her blood culture isshowing Enterococcus faecium. She is currently on daptomycin. Remains on bronchodilators. 1.2. Platelets 204. Sodium 144. Potassium 5.2. Bicarb 39. BUN 24. Creatinine 0.6. Glucose 153. Progress note dated July 08, 2024. The patient was moved down to the third floor, sometime yesterday or last night, for respiratory distress. I was never notified. The patient was seen today in room 360. She was on BiPAP, with settings of 12/5, and 40%. She was getting saline at 20 cc an hour. A blood gas was done on 44% oxygen showing a pO2 of 84, pCO2 of 91, pH is 7.29. Her blood cultures were positive for Enterococcus faecium. For that reason, she is on daptomycin. Current labs include a white count 7.8, hemoglobin 11.2, hematocrit 38.3, and a platelet count of 173,000. Sodium 139, potassium 4.5, chlorides 93, CO2 40, BUN 29, and creatinine 0.58. Glucose 74. Albumin is 3. Chest x-ray done yesterday, continues to show me in addition, there is diffuse changes, consistent with fluid overload and/or pneumonia. On 07/09/2024, the patient is being seen for a follow-up. Morbidly obese female patient was hospitalized for an acute on top of chronic hypoxic and hypercapnic respiratory failure. At the time of my evaluation this morning, the patient was started on a BiPAP at a pressure of 12/5 with an FiO2 of 40%. I took the patient off the BiPAP and put her on 4 L of oxygen by nasal cannula. Subsequent blood gases showed a pH of 7.34 with pCO2 of 86 and pO2 162. The patient has a mass like consolidation involving the right lower lobe. This could be pneumonia versus malignancy. At the same time, the patient is septic and the source of sepsis is a wound infection and the patient has active wet wound with purulent foul-smelling material covering the wound base and the right lower extremity above the lateral malleolus. Blood culture was positive for Enterococcus faecalis and based on that, the patient has been maintained on a combination of daptomycin and the patient is also on IV cefepime. Repeat chest x-ray was done and it showed a right lower lobe masslike opacity that remains unchanged compared to the previous x-rays in addition to mild cardiomegaly and pulm vessel congestion. The patient is sitting daily diuresis. The patient is producing excellent urine output and the fluid balance is -2.6 L over the past 24 hours. The white cell count is 7.1 with a heme of 10.6 and a platelet count of 151. Serum bicarb is 44 with BUN of 29 and a creatinine of 0.5. Sodium is at 140. She remains encephalopathic. She is arousable. She has tolerated the BiPAP reasonably well. Objective - Vital Signs Vital signs: Vital Signs Temp 99.2 F 07/09/24 07:58 Pulse 110 H 07/09/24 07:58 Resp 20 07/09/24 07:58 BP 97/64 07/09/24 07:58 Pulse Ox 95 07/09/24 07:58 FiO2 40 07/09/24 04:00 Intake & Output 07/08/24 07/09/24 07/09/24 18:59 06:59 18:59 Intake Total 210 10 Output Total 1750 1120 Balance -1750 -910 10 Intake: IV 10 10 Invasive Line 5 10 Invasive Line 6 10 Oral 200 Output: Gastric Drainage 0 Urine 1750 1120 Stool 0 Urine/Stool Mix 0 Emesis 0 Oral Regurgitation 0 Other 0 Other: Voiding Method Indwelling Catheter Indwelling Catheter Indwelling Catheter # Voids 0 # Bowel Movements 0 - Exam GENERAL EXAM: Alert, pleasant 73-year-old female, resting in bed, o lethargic and sleepy and currently on BiPAP at a pressure of 12/5 with an FiO2 of 40%. Arousable yet goes back to sleep if left unstimulated morbidly obese, sleepy, able to tolerate BiPAP. HEAD: Normocephalic. EYES: Normal reaction of pupils, equal size. NOSE: Clear with pink turbinates. THROAT: No erythema or exudates. NECK: No masses, no JVD. CHEST: No chest wall deformity. LUNGS: Equal air entry with no crackles, wheeze, rhonchi or dullness. CVS: S1 and S2 normal with no audible murmur, regular rhythm. ABDOMEN: No hepatosplenomegaly, normal bowel sounds, no guarding or rigidity. SPINE: No scoliosis or deformity SKIN: No rashes. Chronic venous stasis of the lower extremities. L purulent right lower extremity ulcer with purulent material covering the base of the ul cer on the right lower extremity and stage IV Ulcer in the right foot. CENTRAL NERVOUS SYSTEM: No focal deficits, tone is normal in all 4 extremities. Lethargic, encephalopathic and weak EXTREMITIES: Changes of chronic venous stasis. There is no peripheral edema. No clubbing, no cyanosis. Peripheral pulses are intact. - Labs CBC & Chem 7: 07/09/24 05:35 07/09/24 05:35 Labs: Abnormal Lab Results - Last 24 Hours (Table) 07/08/24 07/08/24 07/08/24 Range/Units 16:17 16:19 16:37 RBC (3.80-5.40) m/uL Hgb (11.4-16.0) gm/dL MCHC (31.0-37.0) g/dL Chloride (98-107) mmol/L Carbon Dioxide (22-30) mmol/L BUN (7-17) mg/dL Creatinine (0.52-1.04) mg/dL Glucose (74-99) mg/dL POC Glucose (mg/dL) 52 L 52 L 130 H (70-110) mg/dL AST (14-36) U/L Total Protein (6.3-8.2) g/dL Albumin (3.5-5.0) g/dL 07/09/24 07/09/24 07/09/24 Range/Units 05:35 05:35 05:56 RBC 3.69 L (3.80-5.40) m/uL Hgb 10.6 L (11.4-16.0) gm/dL MCHC 30.0 L (31.0-37.0) g/dL Chloride 93 L (98-107) mmol/L Carbon Dioxide 44 H* (22-30) mmol/L BUN 29 H (7-17) mg/dL Creatinine 0.50 L (0.52-1.04) mg/dL Glucose 61 L (74-99) mg/dL POC Glucose (mg/dL) 65 L (70-110) mg/dL AST 40 H (14-36) U/L Total Protein 5.5 L (6.3-8.2) g/dL Albumin 2.8 L (3.5-5.0) g/dL Microbiology - Last 24 Hours (Table) 07/07/24 10:13 Blood Culture - Preliminary Blood 07/05/24 23:33 Blood Culture Gram Stain - Final Blood Blood Culture - Final Enterococcus faecium Molecular ID Assessment and Plan Plan: Acute hypoxemic hypercapnic respiratory failure with significant respiratory acidosis based on the blood gas was done on 07/07/2024. Respiratory failure, multifactorial, the patient is morbidly obese. She may have, a component of COPD/CHF. In addition, the patient has a masslike opacity in the right lower lobe, rule out a consolidating mass/malignancy/pneumonia. Echocardiogram showed a preserved LV function. Nevertheless, the patient has moderate severe pulm hypertension with mild aortic stenosis. The patient is currently on BIPAP 12/5 cm of water with an FiO2 of 40% Sepsis secondary to enterococcal septicemia and the blood cultures were negative. The patient is currently on a combination of cefepime and daptomycin. Altered mentation/encephalopathy secondary to above, and the patient has a component of CO2 narcosis. 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 Blood cultures positive for Enterococcus faecium. Source is right lower extremity cellulitis/wound Right lower extremity infected wound. The wound is wet and there is purulent discharge ongoing. The patient also has a stage IV heel ulcer. Diabetes mellitus. Gastroesophageal reflux disease. Hyperlipidemia. Hypothyroidism. Morbid obesity Plan: The blood gases on 4 L of oxygen was noted and the patient continues to have residual respiratory acidosis. Will alternate between the BiPAP and oxygen nasal cannula. Prefer to go with the BiPAP overnight. Reviewed chest x-ray the patient continues to have a masslike consolidation involving the right lung. This could be potentially malignancy versus an area of masslike pneumonia that needs to be further followed up in the future. Blood cultures positive for Enterococcus faecium and the patient is currently on a combination of cefepime and daptomycin. ID is on the case. Give Lasix 20 mg IV push Diamox 500 mg IV every 12 hours x 2 doses Keep IV fluids at KVO The patient has a full CODE STATUS. May consider transferring her to the ICU should there be any further decompensation in her respiratory status. For now, she seems to be quite stable tolerating the BiPAP reasonably well. Will continue to follow This evaluation was done more than 30 minutes specifically 32 minutes. Right lower extremity wound was inspected. Time with Patient: Greater than 30
[2024-07-09 16:15] LABS: Glucose,Whole Blood 75 mg/dL (70-110)
[2024-07-09] MEDS: BUMETANIDE 1 MG TAB PO SCH (17:06)
--- NOTE | 2024-07-09 17:34 | P.PN ---
Subjective Progress Note Date: 07/09/24 Ajay Robertson, is a 73-year-old female who presented to [facility] emergency room with a chief complaint of worsening shortness of breath, additionally patient was found on the floor in her house, she stated that she fell while asleep and was not able to stand up. She was evaluated in the emergency room vital examination on presentation revealed a temperature of 98.3 pulse 89 respiration 20 blood pressure 115/73 pulse ox 95% on 5 L nasal cannula Laboratory data revealed a white blood count of 11.4 hemoglobin 12.7 platelet count 190 BUN 20 creatinine 0.64 influenza A and B RSV and COVID-19 PCR were all negative Testing in the emergency room revealed chest x-ray revealed pulmonary congestion suggestive of congestive heart failure exacerbation and a new 4.7 masslike consolidation in the right mid to lower lung Patient was admitted to medical floor for further evaluation and treatment Past medical history is significant for history of hypertension, history of hyperlipidemia, history of hypothyroidism, history of diabetes mellitus, history of COPD, history of congestive heart failure, history of morbid obesity, history of recurrent episodes of bilateral lower extremity cellulitis. On review of systems patient is alert and oriented x 3 in no apparent distress, she is complaining of generalized body ache, she is complaining of shortness of breath, otherwise she denies any complaints there is no fever or chills no headache or dizziness no chest pain, she has occasional cough no nausea or vomiting no abdominal pain no diarrhea and no urinary symptoms. On 07/05/2024 patient is alert and oriented x 3. Awaiting consulting providers input. Patient remains on IV Lasix. CT of the chest has been completed. At this time patient denies chest pain. Patient denies nausea vomiting or diarrhea. Patient denies any urinary burning or frequency On 07/06/2024 patient is alert and oriented x 3. Patient remains on IV Lasix and IV antibiotics. Cardiology pulmonary and infectious disease services are following. Current vital signs temp 98.1, heart rate 67, respiratory rate 15, blood pressure 96/53 with a pulse ox of 93% on 4 L. Patient denies chest pain or shortness of breath. Patient denies nausea vomiting or diarrhea. Patient denies any urinary burning or frequency. On 07/07/2024 patient was seen and examined on the telemetry floor she is somnolent arousable in no apparent distress, yesterday patient was agitated and aggressive with medical staff, Seroquel was added to her medication regimen, however today she is more somnolent, Seroquel will be changed to as needed only. There is no fever or chills no headache or dizziness no chest pain patient still has shortness of breath with any activity and cough no nausea or vomiting no abdominal pain no diarrhea no urinary symptoms. On 07/08/2024 patient was seen and examined on the telemetry floor, she is so mnolent responsive in no apparent distress, currently she is maintained on BiPAP, she had episodes of agitation through the night, she was pulling off her IV in the BiPAP, she received 1 dose of IM Haldol, she is maintained on soft restraints at this time, her vital examination reveals a temperature of 99.8 pulse 109 respiration 22 pulse ox 95% on BiPAP FiO2 40% she is maintained on IV daptomycin infectious disease are following On 07/09/2024 patient was seen and examined on the telemetry floor, she is somnolent responsive in no apparent distress, she is still having episodes of agitation requiring as needed Seroquel use, otherwise she is improving gradually, there is no fever or chills no headache or dizziness no chest pain, she has shortness of breath with any activity, no nausea or vomiting no abdominal pain no diarrhea and no urinary symptoms, she remains on IV antibiotics, infectious disease are following, also cardiology and pulmonary are following Objective - Vital Signs Vital signs: Vital Signs Temp 99.2 F 07/09/24 07:58 Pulse 110 H 07/09/24 07:58 Resp 20 07/09/24 07:58 BP 97/64 07/09/24 07:58 Pulse Ox 95 07/09/24 07:58 FiO2 40 07/09/24 04:00 Intake & Output 07/08/24 07/09/24 07/09/24 18:59 06:59 18:59 Intake Total 210 10 Output Total 1750 1120 Balance -1750 -910 10 Intake: IV 10 10 Invasive Line 5 10 Invasive Line 6 10 Oral 200 Output: Gastric Drainage 0 Urine 1750 1120 Stool 0 Urine/Stool Mix 0 Emesis 0 Oral Regurgitation 0 Other 0 Other: Voiding Method Indwelling Catheter Indwelling Catheter # Voids 0 # Bowel Movements 0 - Exam In general patient is alert and oriented x 3 in no distress HEENT head normocephalic and atraumatic Neck is supple no JVD no goiter no lymphadenopathy no carotid bruit Chest examination reveals a scattered crackles bilaterally no wheezing Cardiac exam reveals regular heart sounds S1 and S2 no gallops no murmurs Abdomen is soft nontender no organomegaly with normal bowel sounds Extremity exam reveals 3+ edema with erythema and chronic stasis changes, multiple small ulceration with scabbing no cyanosis or clubbing Neurological examination reveals no gross focal deficits - Labs CBC & Chem 7: 07/09/24 05:35 07/09/24 05:35 Labs: Abnormal Lab Results - Last 24 Hours (Table) 07/08/24 07/08/24 07/08/24 Range/Units 09:02 16:17 16:19 RBC (3.80-5.40) m/uL Hgb (11.4-16.0) gm/dL MCHC (31.0-37.0) g/dL Chloride (98-107) mmol/L Carbon Dioxide 40 H (22-30) mmol/L BUN (7-17) mg/dL Creatinine (0.52-1.04) mg/dL Glucose (74-99) mg/dL POC Glucose (mg/dL) 52 L 52 L (70-110) mg/dL AST (14-36) U/L Total Protein (6.3-8.2) g/dL Albumin (3.5-5.0) g/dL 07/08/24 07/09/24 07/09/24 Range/Units 16:37 05:35 05:35 RBC 3.69 L (3.80-5.40) m/uL Hgb 10.6 L (11.4-16.0) gm/dL MCHC 30.0 L (31.0-37.0) g/dL Chloride 93 L (98-107) mmol/L Carbon Dioxide 44 H* (22-30) mmol/L BUN 29 H (7-17) mg/dL Creatinine 0.50 L (0.52-1.04) mg/dL Glucose 61 L (74-99) mg/dL POC Glucose (mg/dL) 130 H (70-110) mg/dL AST 40 H (14-36) U/L Total Protein 5.5 L (6.3-8.2) g/dL Albumin 2.8 L (3.5-5.0) g/dL 07/09/24 Range/Units 05:56 RBC (3.80-5.40) m/uL Hgb (11.4-16.0) gm/dL MCHC (31.0-37.0) g/dL Chloride (98-107) mmol/L Carbon Dioxide (22-30) mmol/L BUN (7-17) mg/dL Creatinine (0.52-1.04) mg/dL Glucose (74-99) mg/dL POC Glucose (mg/dL) 65 L (70-110) mg/dL AST (14-36) U/L Total Protein (6.3-8.2) g/dL Albumin (3.5-5.0) g/dL Microbiology - Last 24 Hours (Table) 07/07/24 10:13 Blood Culture - Preliminary Blood 07/05/24 23:33 Blood Culture Gram Stain - Final Blood Blood Culture - Final Enterococcus faecium Molecular ID Assessment and Plan Plan: Acute congestive heart failure exacerbation New 4.7 cm masslike consolidation opacity in the right midlung Fall at home, with generalized body pain Bilateral lower extremity cellulitis, with multiple open ulcers Underlying history of hypertension Underlying history of hyperlipidemia Underlying history of diabetes mellitus Underlying history of COPD Underlying history of morbid obesity At this time patient was admitted to telemetry floor Echocardiogram ordered Home medications reviewed and reordered Patient was started on IV Lasix in the emergency room Consultation for pulmonary, infectious disease, and cardiology initiated Will follow closely
[2024-07-09 20:29] LABS: Glucose,Whole Blood 103 mg/dL (70-110)
--- NOTE | 2024-07-09 22:47 | P.PN ---
Subjective Progress Note Date: 07/09/24 Principal diagnosis: Reason for follow-up with lower extremity ulcer and cellulitis Patient is a 73-year-old female with a past medical history significant for COPD heart failure diabetes mellitus reflux hyperlipidemia presenting to the hospital for evaluation of a fall that happened the day of presentation to the hospital patient accidentally rolled off the couch onto the floor and was too weak to get herself up, noticed to have bilateral extremity ulcer and cellulitis prompted this consultation. On today's evaluation that is 07/09/2024, patient did have resolution of her fever and has been afebrile today, patient has been off-and-on on the BiPAP patient remains to be lethargic and unable to provide any history hemodynamically stable no vomiting or diarrhea reported by the nursing staff. Patient white count 7.1 creatinine 0.50 blood culture repeat currently pending Objective - Vital Signs Vital signs: Vital Signs Temp 99.2 F 07/09/24 07:58 Pulse 110 H 07/09/24 07:58 Resp 20 07/09/24 07:58 BP 97/64 07/09/24 07:58 Pulse Ox 95 07/09/24 07:58 FiO2 40 07/09/24 12:48 Intake & Output 07/08/24 07/09/24 07/09/24 18:59 06:59 18:59 Intake Total 210 10 Output Total 1750 1120 Balance -1750 -910 10 Intake: IV 10 10 Invasive Line 5 10 Invasive Line 6 10 Oral 200 Output: Gastric Drainage 0 Urine 1750 1120 Stool 0 Urine/Stool Mix 0 Emesis 0 Oral Regurgitation 0 Other 0 Other: Voiding Method Indwelling Catheter Indwelling Catheter Indwelling Catheter # Voids 0 # Bowel Movements 0 - Exam GENERAL DESCRIPTION: An elderly female lying in bed in no distress RESPIRATORY SYSTEM: Unlabored breathing , decreased breath sounds at bases HEART: S1 S2 regular rate and rhythm , ABDOMEN: Soft , no tenderness EXTREMITIES: Bilateral lower extremity currently wrapped with an Blue wrap she did have wound on the right heel with necrotic base but no surrounding redness or drainage - Labs CBC & Chem 7: 07/09/24 05:35 07/09/24 05:35 Labs: Abnormal Lab Results - Last 24 Hours (Table) 07/08/24 07/08/24 07/08/24 Range/Units 16:17 16:19 16:37 RBC (3.80-5.40) m/uL Hgb (11.4-16.0) gm/dL MCHC (31.0-37.0) g/dL ABG pH (7.35-7.45) ABG pCO2 (35-45) mmHg ABG pO2 (83-108) mmHg ABG HCO3 (21-25) mmol/L ABG Total CO2 (19-24) mmol/L ABG O2 Saturation (94-97) % Hemoglobin (11.4-16.0) gm/dL Chloride (98-107) mmol/L Carbon Dioxide (22-30) mmol/L BUN (7-17) mg/dL Creatinine (0.52-1.04) mg/dL Glucose (74-99) mg/dL POC Glucose (mg/dL) 52 L 52 L 130 H (70-110) mg/dL AST (14-36) U/L Total Protein (6.3-8.2) g/dL Albumin (3.5-5.0) g/dL 07/09/24 07/09/24 07/09/24 Range/Units 05:35 05:35 05:56 RBC 3.69 L (3.80-5.40) m/uL Hgb 10.6 L (11.4-16.0) gm/dL MCHC 30.0 L (31.0-37.0) g/dL ABG pH (7.35-7.45) ABG pCO2 (35-45) mmHg ABG pO2 (83-108) mmHg ABG HCO3 (21-25) mmol/L ABG Total CO2 (19-24) mmol/L ABG O2 Saturation (94-97) % Hemoglobin (11.4-16.0) gm/dL Chloride 93 L (98-107) mmol/L Carbon Dioxide 44 H* (22-30) mmol/L BUN 29 H (7-17) mg/dL Creatinine 0.50 L (0.52-1.04) mg/dL Glucose 61 L (74-99) mg/dL POC Glucose (mg/dL) 65 L (70-110) mg/dL AST 40 H (14-36) U/L Total Protein 5.5 L (6.3-8.2) g/dL Albumin 2.8 L (3.5-5.0) g/dL 07/09/24 Range/Units 12:36 RBC (3.80-5.40) m/uL Hgb (11.4-16.0) gm/dL MCHC (31.0-37.0) g/dL ABG pH 7.34 L (7.35-7.45) ABG pCO2 86 H* (35-45) mmHg ABG pO2 162 H (83-108) mmHg ABG HCO3 47 H* (21-25) mmol/L ABG Total CO2 49 H (19-24) mmol/L ABG O2 Saturation 99.8 H (94-97) % Hemoglobin 10.8 L (11.4-16.0) gm/dL Chloride (98-107) mmol/L Carbon Dioxide (22-30) mmol/L BUN (7-17) mg/dL Creatinine (0.52-1.04) mg/dL Glucose (74-99) mg/dL POC Glucose (mg/dL) (70-110) mg/dL AST (14-36) U/L Total Protein (6.3-8.2) g/dL Albumin (3.5-5.0) g/dL Microbiology - Last 24 Hours (Table) 07/07/24 10:13 Blood Culture - Preliminary Blood 07/05/24 23:33 Blood Culture Gram Stain - Final Blood Blood Culture - Final Enterococcus faecium Molecular ID Assessment and Plan (1) Leg ulcer, left Current Visit: Yes Status: Acute Code(s): L97.929 - NON-PRS CHRONIC ULC UNSP PRT OF L LOW LEG W UNSP SEVERITY SNOMED Code(s): 01982709 (2) Left leg cellulitis Current Visit: Yes Status: Acute Code(s): L03.116 - CELLULITIS OF LEFT LOWER LIMB SNOMED Code(s): 97314696333674431 (3) Penicillin allergy Current Visit: Yes Status: Acute Code(s): Z88.0 - ALLERGY STATUS TO PENICIL RITESH SNOMED Code(s): 42743393 (4) Bacteremia Current Visit: Yes Status: Acute Code(s): R78.81 - BACTEREMIA SNOMED Code(s): 0028356 Plan: 1patient with diffuse swelling of bilateral lower extremity with superficial solution to the left leg likely venous stasis ulcer with secondary cellulitis likely from gram-positive skin neida. 2patient with a penicillin allergy that will limit the number of antibiotics safe to use. 3local wound care to the left leg with dry Aquacel dressing and Blue wrap to keep the swelling down, and apply Santyl to the wound to the right heel change daily discussed with the nursing staff 4patient did have resolution of the fever with addition of cefepime to continue along with daptomycin and monitor clinical course closely Dictation was produced using [email or web address] dictation software. please excuse any grammatical, word or spelling errors. Time with Patient: Less than 30
[2024-07-10 02:15] LABS: Glucose,Whole Blood 101 mg/dL (70-110)
[2024-07-10 06:06] LABS: Glucose,Whole Blood 106 mg/dL (70-110)
--- NOTE | 2024-07-10 10:16 | P.PN ---
Subjective Progress Note Date: 07/10/24 Ajay Robertson, is a 73-year-old female who presented to [facility] emergency room with a chief complaint of worsening shortness of breath, additionally patient was found on the floor in her house, she stated that she fell while asleep and was not able to stand up. She was evaluated in the emergency room vital examination on presentation revealed a temperature of 98.3 pulse 89 respiration 20 blood pressure 115/73 pulse ox 95% on 5 L nasal cannula Laboratory data revealed a white blood count of 11.4 hemoglobin 12.7 platelet count 190 BUN 20 creatinine 0.64 influenza A and B RSV and COVID-19 PCR were all negative Testing in the emergency room revealed chest x-ray revealed pulmonary congestion suggestive of congestive heart failure exacerbation and a new 4.7 masslike consolidation in the right mid to lower lung Patient was admitted to medical floor for further evaluation and treatment Past medical history is significant for history of hypertension, history of hyperlipidemia, history of hypothyroidism, history of diabetes mellitus, history of COPD, history of congestive heart failure, history of morbid obesity, history of recurrent episodes of bilateral lower extremity cellulitis. On review of systems patient is alert and oriented x 3 in no apparent distress, she is complaining of generalized body ache, she is complaining of shortness of breath, otherwise she denies any complaints there is no fever or chills no headache or dizziness no chest pain, she has occasional cough no nausea or vomiting no abdominal pain no diarrhea and no urinary symptoms. On 07/05/2024 patient is alert and oriented x 3. Awaiting consulting providers input. Patient remains on IV Lasix. CT of the chest has been completed. At this time patient denies chest pain. Patient denies nausea vomiting or diarrhea. Patient denies any urinary burning or frequency On 07/06/2024 patient is alert and oriented x 3. Patient remains on IV Lasix and IV antibiotics. Cardiology pulmonary and infectious disease services are following. Current vital signs temp 98.1, heart rate 67, respiratory rate 15, blood pressure 96/53 with a pulse ox of 93% on 4 L. Patient denies chest pain or shortness of breath. Patient denies nausea vomiting or diarrhea. Patient denies any urinary burning or frequency. On 07/07/2024 patient was seen and examined on the telemetry floor she is somnolent arousable in no apparent distress, yesterday patient was agitated and aggressive with medical staff, Seroquel was added to her medication regimen, however today she is more somnolent, Seroquel will be changed to as needed only. There is no fever or chills no headache or dizziness no chest pain patient still has shortness of breath with any activity and cough no nausea or vomiting no abdominal pain no diarrhea no urinary symptoms. On 07/08/2024 patient was seen and examined on the telemetry floor, she is so mnolent responsive in no apparent distress, currently she is maintained on BiPAP, she had episodes of agitation through the night, she was pulling off her IV in the BiPAP, she received 1 dose of IM Haldol, she is maintained on soft restraints at this time, her vital examination reveals a temperature of 99.8 pulse 109 respiration 22 pulse ox 95% on BiPAP FiO2 40% she is maintained on IV daptomycin infectious disease are following On 07/09/2024 patient was seen and examined on the telemetry floor, she is somnolent responsive in no apparent distress, she is still having episodes of agitation requiring as needed Seroquel use, otherwise she is improving gradually, there is no fever or chills no headache or dizziness no chest pain, she has shortness of breath with any activity, no nausea or vomiting no abdominal pain no diarrhea and no urinary symptoms, she remains on IV antibiotics, infectious disease are following, also cardiology and pulmonary are following On 07/10/2024 patient remains somnolent on BiPAP. Pulmonary and infectious disease services following. Patient remains on IV antibiotics. Patient remains on IV Diamox. Current vital signs temp 99.8, heart rate 78, respiratory rate 18, blood pressure 123/69 with a pulse ox of 96% on BiPAP with an FiO2 of 40. Objective - Vital Signs Vital signs: Vital Signs Temp 99.8 F H 07/10/24 08:00 Pulse 78 07/10/24 08:00 Resp 28 H 07/10/24 08:00 BP 123/69 07/10/24 08:00 Pulse Ox 96 07/10/24 08:00 FiO2 40 07/10/24 08:25 Intake & Output 07/09/24 07/10/24 07/10/24 18:59 06:59 18:59 Intake Total 10 128 Output Total 1750 1575 Balance -1740 -1447 Weight 0 g Intake: IV 10 10 Invasive Line 5 10 10 Oral 0 118 Output: Urine 1750 1575 Stool 0 Other: Voiding Method Indwelling Catheter Indwelling Catheter Indwelling Catheter - Exam In general patient is alert and oriented x 3 in no distress HEENT head normocephalic and atraumatic Neck is supple no JVD no goiter no lymphadenopathy no carotid bruit Chest examination reveals a scattered crackles bilaterally no wheezing Cardiac exam reveals regular heart sounds S1 and S2 no gallops no murmurs Abdomen is soft nontender no organomegaly with normal bowel sounds Extremity exam reveals 3+ edema with erythema and chronic stasis changes, multiple small ulceration with scabbing no cyanosis or clubbing Neurological examination reveals no gross focal deficits - Labs CBC & Chem 7: 07/09/24 05:35 07/09/24 05:35 Labs: Abnormal Lab Results - Last 24 Hours (Table) 07/09/24 Range/Units 12:36 ABG pH 7.34 L (7.35-7.45) ABG pCO2 86 H* (35-45) mmHg ABG pO2 162 H (83-108) mmHg ABG HCO3 47 H* (21-25) mmol/L ABG Total CO2 49 H (19-24) mmol/L ABG O2 Saturation 99.8 H (94-97) % Hemoglobin 10.8 L (11.4-16.0) gm/dL Microbiology - Last 24 Hours (Table) 07/08/24 12:13 Blood Culture - Preliminary Blood 07/07/24 10:13 Blood Culture - Preliminary Blood Assessment and Plan Plan: Acute congestive heart failure exacerbation New 4.7 cm masslike consolidation opacity in the right midlung Fall at home, with generalized body pain Bilateral lower extremity cellulitis, with multiple open ulcers Underlying history of hypertension Underlying history of hyperlipidemia Underlying history of diabetes mellitus Underlying history of COPD Underlying history of morbid obesity At this time patient was admitted to telemetry floor Echocardiogram ordered Home medications reviewed and reordered Patient was started on IV Lasix in the emergency room Consultation for pulmonary, infectious disease, and cardiology initiated Will follow closely
[2024-07-10 11:06] LABS: Basophils % (A) 0 %; Eosinophils # (A) 0.1 k/uL (0-0.7); Eosinophils % (A) 2 %; HCT 39.1 % (34.0-46.0); HGB 11.4 gm/dL (11.4-16.0); Hypochromasia Marked; Lymphocytes % (A) 13 %; MCH 28.4 pg (25.0-35.0); Mean Platelet Volume 8.1; Monocytes # (A) 0.4 k/uL (0-1.0); Monocytes % (A) 5 %; Neutrophils # (A) 6.2 k/uL (1.3-7.7); Neutrophils % (A) 78 %; Platelet Count 164 k/uL (150-450); RBC 3.99 m/uL (3.80-5.40); RDW 14.6 % (11.5-15.5); WBC 7.9 k/uL (3.8-10.6)
[2024-07-10 11:30] LABS: ALT 18 U/L (4-34); AST 50 U/L (14-36); African American GFR (CKD) >90 (>60 ml/min/1.73 sqM); Albumin 2.9 g/dL (3.5-5.0); Alkaline Phosphatase 71 U/L (38-126); Blood Urea Nitrogen 24 mg/dL (7-17); Calcium 8.6 mg/dL (8.4-10.2); Chloride 94 mmol/L (98-107); Glucose 112 mg/dL (74-99); Non-African American GFR(CKD) 82 (>60 ml/min/1.73 sqM); Potassium 4.1 mmol/L (3.5-5.1); Sodium 140 mmol/L (137-145); Total Bilirubin 0.8 mg/dL (0.2-1.3); Total Protein 5.7 g/dL (6.3-8.2)
[2024-07-10 11:36] LABS: Anion Gap 10 mmol/L
[2024-07-10 11:38] LABS: Glucose,Whole Blood 125 mg/dL (70-110)
[2024-07-10 11:40] LABS: Carbon Dioxide 36 mmol/L (22-30)
[2024-07-10 12:55] LABS: ABG Base Excess 12.4 mmol/L; ABG PH 7.33 (7.35-7.45); ABG PO2 129 mmHg (83-108); ABG TCO2 44 mmol/L (19-24); Allen Test Performed? Yes
[2024-07-10 12:59] LABS: ABG HCO3 41 mmol/L (21-25); ABG PCO2 78 mmHg (35-45)
--- NOTE | 2024-07-10 15:00 | P.PN ---
Subjective Progress Note Date: 07/10/24 This is a 73-year-old obese white female today seen in room 620. She came to the hospital with 1 day of shortness of breath, leg swelling, and cough. Her viral screen was negative. The patient has smoked for about 40 to 45 years. The only medicine she takes at home for her breathing is albuterol. Her procalcitonin level was 0.05. Chest x-ray showed some fluid overload, but also showed a possible mass in the right midlung, which could be either an actual mass or pseudotumor. A CT scan was ordered. It does show a 7.1 lobulated mass in the right lung. A PET scan was recommended. Currently, the patient is on 4 L of oxygen. No fluids are ordered. She is getting Lasix 40 mg every 8 hours. She also has an updraft ordered. White count 1.22, hemoglobin 11.3, macro 39.1, platelet count 185,000. Coags are normal. Sodium 141, potassium 4.3, chlorides 94, CO2 39, BUN 17.5, creatinine 0.9. Glucose 169. Calcium 8.6. Troponin was negative. N-terminal proBNP was elevated at 1830. Procalcitonin level was 0.05. Urine is negative. Viral screen was negative. Chest x-ray was consistent with fluid overload/CHF. Cardiology has seen the patient. The patient is seen today July 06, 2024 in follow-up on the regular medical floor. She is currently sitting up in bed. Awake and alert in no acute distress. She is maintaining O2 saturations in the 90s on 4 L/min per nasal cannula. She is receiving normal saline at 75 mL/h. White count 10.2. Hemoglobin 11.5. Platelets 198. Sodium 134. Potassium 4.5. Bicarb 38. BUN 29. Creatinine 0.83. Glucose 132. She remains on cefazolin. IV diuretics were discontinued. The patient is seen today July 07, 2024 in follow-up on the regular medical floor. She is currently resting comfortably in bed. Awake and alert in no acute distress. Maintaining good O2 saturations in the 90s on 5 L/min per nasal cannula. She is receiving normal saline at 50 mL/h. Her blood culture isshowing Enterococcus faecium. She is currently on daptomycin. Remains on bronchodilators. 1.2. Platelets 204. Sodium 144. Potassium 5.2. Bicarb 39. BUN 24. Creatinine 0.6. Glucose 153. Progress note dated July 08, 2024. The patient was moved down to the third floor, sometime yesterday or last night, for respiratory distress. I was never notified. The patient was seen today in room 360. She was on BiPAP, with settings of 12/5, and 40%. She was getting saline at 20 cc an hour. A blood gas was done on 44% oxygen showing a pO2 of 84, pCO2 of 91, pH is 7.29. Her blood cultures were positive for Enterococcus faecium. For that reason, she is on daptomycin. Current labs include a white count 7.8, hemoglobin 11.2, hematocrit 38.3, and a platelet count of 173,000. Sodium 139, potassium 4.5, chlorides 93, CO2 40, BUN 29, and creatinine 0.58. Glucose 74. Albumin is 3. Chest x-ray done yesterday, continues to show me in addition, there is diffuse changes, consistent with fluid overload and/or pneumonia. On 07/09/2024, the patient is being seen for a follow-up. Morbidly obese female patient was hospitalized for an acute on top of chronic hypoxic and hypercapnic respiratory failure. At the time of my evaluation this morning, the patient was started on a BiPAP at a pressure of 12/5 with an FiO2 of 40%. I took the patient off the BiPAP and put her on 4 L of oxygen by nasal cannula. Subsequent blood gases showed a pH of 7.34 with pCO2 of 86 and pO2 162. The patient has a mass like consolidation involving the right lower lobe. This could be pneumonia versus malignancy. At the same time, the patient is septic and the source of sepsis is a wound infection and the patient has active wet wound with purulent foul-smelling material covering the wound base and the right lower extremity above the lateral malleolus. Blood culture was positive for Enterococcus faecalis and based on that, the patient has been maintained on a combination of daptomycin and the patient is also on IV cefepime. Repeat chest x-ray was done and it showed a right lower lobe masslike opacity that remains unchanged compared to the previous x-rays in addition to mild cardiomegaly and pulm vessel congestion. The patient is sitting daily diuresis. The patient is producing excellent urine output and the fluid balance is -2.6 L over the past 24 hours. The white cell count is 7.1 with a heme of 10.6 and a platelet count of 151. Serum bicarb is 44 with BUN of 29 and a creatinine of 0.5. Sodium is at 140. She remains encephalopathic. She is arousable. She has tolerated the BiPAP reasonably well. On 07/10/2024, the patient is being seen for a follow-up. The patient remains on BiPAP and she seems to be tolerating the BiPAP reasonably well. This morning, the patient is on a BiPAP at a pressure of 12 over 5 cm of water with an FiO2 of 40% which is essentially the same setting as yesterday. She is arousable and she is able to communicate. At times confused. I took this patient off the BiPAP and put her on oxygen at 5 L/min nasal cannula. Subsequent blood gases showed a pH of 7.33 with a pCO2 of 78 and pO2 of 129. She is still lethargic and weak. Denies having any chest pain. She does have swelling in lower extremities bilaterally. She was given IV Lasix yesterday and her fluid balance is -3.1 L over the past 24 hours. She remains on Bumex 1 mg p.o. daily. She is also on Diamox 5 mg IV every 12 hours. The blood work from today shows a BUN of 24 with a creatinine of 0.7. Serum bicarb is at 36 and a sodium levels at 140. The white cell count is 7.9 with a hemoglobin of 11.4 and a platelet count of 164. The follow-up chest x-ray from yesterday was still showing a masslike consolidation/opacity in the right midlung/right lower lobe area. The patient also has some ongoing mild cardiomegaly. Wound care is being applied. ID is on the case. The patient remains on daptomycin and IV cefepime. Objective - Vital Signs Vital signs: Vital Signs Temp 99.8 F H 07/10/24 08:00 Pulse 78 07/10/24 08:00 Resp 28 H 07/10/24 08:00 BP 123/69 07/10/24 08:00 Pulse Ox 96 07/10/24 08:00 FiO2 40 07/10/24 08:25 Intake & Output 07/09/24 07/10/24 07/10/24 18:59 06:59 18:59 Intake Total 10 128 Output Total 1750 1575 Balance -1740 -1447 Weight 0 g Intake: IV 10 10 Invasive Line 5 10 10 Oral 0 118 Output: Urine 1750 1575 Stool 0 Other: Voiding Method Indwelling Catheter Indwelling Catheter Indwelling Catheter - Exam GENERAL EXAM: Alert, pleasant 73-year-old female, resting in bed, o lethargic and sleepy and currently on BiPAP at a pressure of 12/5 with an FiO2 of 40%. Arousable yet goes back to sleep if left unstimulated morbidly obese, sleepy, able to tolerate BiPAP. HEAD: Normocephalic. EYES: Normal reaction of pupils, equal size. NOSE: Clear with pink turbinates. THROAT: No erythema or exudates. NECK: No masses, no JVD. CHEST: No chest wall deformity. LUNGS: Equal air entry with no crackles, wheeze, rhonchi or dullness. CVS: S1 and S2 normal with no audible murmur, regular rhythm. ABDOMEN: No hepatosplenomegaly, normal bowel sounds, no guarding or rigidity. SPINE: No scoliosis or deformity SKIN: No rashes. Chronic venous stasis of the lower extremities. L purulent right lower extremity ulcer with purulent material covering the base of the ulcer on the right lower extremity and stage IV Ulcer in the right foot. CENTRAL NERVOUS SYSTEM: No focal deficits, tone is normal in all 4 extremities. Lethargic, encephalopathic and weak EXTREMITIES: Changes of chronic venous stasis. There is no peripheral edema. No clubbing, no cyanosis. Peripheral pulses are intact. - Labs CBC & Chem 7: 07/10/24 10:38 07/10/24 10:38 Labs: Abnormal Lab Results - Last 24 Hours (Table) 07/09/24 Range/Units 12:36 ABG pH 7.34 L (7.35-7.45) ABG pCO2 86 H* (35-45) mmHg ABG pO2 162 H (83-108) mmHg ABG HCO3 47 H* (21-25) mmol/L ABG Total CO2 49 H (19-24) mmol/L ABG O2 Saturation 99.8 H (94-97) % Hemoglobin 10.8 L (11.4-16.0) gm/dL Microbiology - Last 24 Hours (Table) 07/08/24 12:13 Blood Culture - Preliminary Blood 07/07/24 10:13 Blood Culture - Preliminary Blood Assessment and Plan Plan: Acute hypoxemic hypercapnic respiratory failure with significant respiratory acidosis based on the blood gas was done on 07/07/2024. Respiratory failure, multifactorial, the patient is morbidly obese. She may have, a component of COPD/CHF. In addition, the patient has a masslike opacity in the right lower lobe, rule out a consolidating mass/malignancy/pneumonia. Echocardiogram showed a preserved LV function. Nevertheless, the patient has moderate severe pulm hypertension with mild aortic stenosis. The patient is currently on BIPAP 12/5 cm of water with an FiO2 of 40% Sepsis secondary to enterococcal septicemia and the blood cultures were negative. The patient is currently on a combination of cefepime and daptomycin. Altered mentation/encephalopathy secondary to above, and the patient has a component of CO2 narcosis. 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 Blood cultures positive for Enterococcus faecium. Source is right lower extremity cellulitis/wound Right lower extremity infected wound. The wound is wet and there is purulent discharge ongoing. The patient also has a stage IV heel ulcer. Diabetes mellitus. Gastroesophageal reflux disease. Hyperlipidemia. Hypothyroidism. Morbid obesity Plan: The blood gases on 5 L of oxygen by nasal cannula is still showing acute on chronic hypercapnic respiratory failure. Continue Bumex Continue Diamox Repeat blood gas in the morning Will alternate between the BiPAP and oxygen nasal cannula. Prefer to go with the BiPAP overnight. Reviewed chest x-ray the patient continues to have a masslike consolidation involving the right lung. This could be potentially malignancy versus an area of masslike pneumonia that needs to be further followed up in the future. Blood cultures positive for Enterococcus faecium and the patient is currently on a combination of cefepime and daptomycin. ID is on the case. Keep IV fluids at KVO Continue IV cefepime and daptomycin Right lower extremity wound care Monitor respiratory status The patient has a full CODE STATUS. Time with Patient: Greater than 30
--- NOTE | 2024-07-10 15:16 | P.PN ---
Subjective Progress Note Date: 07/10/24 The patient is a 73-year-old female patient was admitted to the hospital with bilateral lower extremities edema and cellulitis and she was initially started on Lasix which was subsequently stopped because of low blood pressure which she underwent an echo which revealed normal biventricular systolic function with pulmonary hypertension and mild aortic stenosis. July 07, 2024 The patient was seen this morning she still have some change in mental status and she is somewhat lethargic and possibly dehydrated. She is getting a workup for possible sepsis. Hemodynamically she is stable now. The echo is as described above showed normal LV systolic function with mild aortic stenosis. The physical examination is remarkable for regular rhythm with a systolic murmur at the right and left upper sternal border with severe bilateral lower extremities chronic skin changes and chronic edema July 08, 2024 The patient was seen and evaluated this morning with apparently she was transferred from 6 [address]. to [address] She still have change in mental status currently under workup. Hemodynamically she is stable. She still have bilateral lower extremities edema. I am going to give the patient only 1 dose of Lasix IV and continue monitor the kidney function and electrolytes. She is under an investigation for right upper lobe mass with possible need for PET scan. The mass was seen on the CT scan as well as chest x-ray. The physical examination is remarkable for change in mental status with regular rate and rhythm and mild sinus tachycardia and diminished breathing sounds bilaterally which is still hy poxic requiring BiPAP at 40% 07/09/2024 Patient has been on BiPAP, severely hypercapnic with retention of bicarb with metabolic encephalopathy Bicarb 44, BUN 29, creatinine 0.5, Hb 10.6 07/10/2024 Patient remains somnolent on BiPAP She is on IV antibiotics BP 123/69, heart rate 76, Echo from this admission shows an EF of 55%, moderate concentric LVH, moderate to severe pulmonary hypertension with RVSP of 54 mmHg, ASSESSMENT: Acute on chronic HFpEF exacerbation Biventricular failure Acute hypoxic and hypercapnic respiratory failure Metabolic encephalopathy because of hypercapnia Right lung mass, Hypertension Hyperlipidemia PLAN: Continue p.o. Bumex Agree with utilizing acetazolamide Follow-up with the blood work from this morning Overall patient's prognosis is poor Objective - Vital Signs Vital signs: Vital Signs Temp 98.1 F 07/10/24 11:29 Pulse 99 07/10/24 11:29 Resp 20 07/10/24 11:29 BP 151/82 07/10/24 11:29 Pulse Ox 95 07/10/24 11:29 FiO2 40 07/10/24 08:25 Intake & Output 07/09/24 07/10/24 07/10/24 18:59 06:59 18:59 Intake Total 10 128 Output Total 1750 1575 Balance -1740 -1447 Weight 0 g Intake: IV 10 10 Invasive Line 5 10 10 Oral 0 118 Output: Urine 1750 1575 Stool 0 Other: Voiding Method Indwelling Catheter Indwelling Catheter Indwelling Catheter - Labs CBC & Chem 7: 07/10/24 10:38 07/10/24 10:38 Labs: Abnormal Lab Results - Last 24 Hours (Table) 07/10/24 07/10/24 07/10/24 Range/Units 10:38 10:38 11:36 MCHC 29.0 L (31.0-37.0) g/dL ABG pH (7.35-7.45) ABG pCO2 (35-45) mmHg ABG pO2 (83-108) mmHg ABG HCO3 (21-25) mmol/L ABG Total CO2 (19-24) mmol/L ABG O2 Saturation (94-97) % Chloride 94 L (98-107) mmol/L Carbon Dioxide 36 H (22-30) mmol/L BUN 24 H (7-17) mg/dL Glucose 112 H (74-99) mg/dL POC Glucose (mg/dL) 125 H (70-110) mg/dL AST 50 H (14-36) U/L Total Protein 5.7 L (6.3-8.2) g/dL Albumin 2.9 L (3.5-5.0) g/dL 07/10/24 Range/Units 12:49 MCHC (31.0-37.0) g/dL ABG pH 7.33 L (7.35-7.45) ABG pCO2 78 H* (35-45) mmHg ABG pO2 129 H (83-108) mmHg ABG HCO3 41 H* (21-25) mmol/L ABG Total CO2 44 H (19-24) mmol/L ABG O2 Saturation 99.0 H (94-97) % Chloride (98-107) mmol/L Carbon Dioxide (22-30) mmol/L BUN (7-17) mg/dL Glucose (74-99) mg/dL POC Glucose (mg/dL) (70-110) mg/dL AST (14-36) U/L Total Protein (6.3-8.2) g/dL Albumin (3.5-5.0) g/dL Microbiology - Last 24 Hours (Table) 07/08/24 12:13 Blood Culture - Preliminary Blood 07/07/24 10:13 Blood Culture - Preliminary Blood
--- NOTE | 2024-07-10 15:54 | P.PN ---
Subjective Progress Note Date: 07/10/24 Principal diagnosis: Reason for follow-up with lower extremity ulcer and cellulitis Patient is a 73-year-old female with a past medical history significant for COPD heart failure diabetes mellitus reflux hyperlipidemia presenting to the hospital for evaluation of a fall that happened the day of presentation to the hospital patient accidentally rolled off the couch onto the floor and was too weak to get herself up, noticed to have bilateral extremity ulcer and cellulitis prompted this consultation. On today's evaluation that is 07/10/2024, Patient is afebrile this morning patient seen to be slightly more awake today did answer simple question she is currently on 5 L nasal cannula oxygen, follow-up diarrhea and the changes reported by the family at the bedside. Patient white count 7.8, creatinine 0.74 blood culture repeat currently pending Objective - Vital Signs Vital signs: Vital Signs Temp 98.5 F 07/10/24 15:52 Pulse 95 07/10/24 15:52 Resp 20 07/10/24 15:52 BP 130/69 07/10/24 15:52 Pulse Ox 96 07/10/24 15:52 FiO2 40 07/10/24 08:25 Intake & Output 07/09/24 07/10/24 07/10/24 18:59 06:59 18:59 Intake Total 10 128 Output Total 1750 1575 Balance -1740 -1447 Weight 0 g Intake: IV 10 10 Invasive Line 5 10 10 Oral 0 118 Output: Urine 1750 1575 Stool 0 Other: Voiding Method Indwelling Catheter Indwelling Catheter Indwelling Catheter - Exam GENERAL DESCRIPTION: An elderly female lying in bed in no distress RESPIRATORY SYSTEM: Unlabored breathing , decreased breath sounds at bases HEART: S1 S2 regular rate and rhythm , ABDOMEN: Soft , no tenderness EXTREMITIES: Bilateral lower extremity currently wrapped with an Blue wrap she did have wound on the right heel with necrotic base but no surrounding redness or drainage - Labs CBC & Chem 7: 07/10/24 10:38 07/10/24 10:38 Labs: Abnormal Lab Results - Last 24 Hours (Table) 07/10/24 07/10/24 07/10/24 Range/Units 10:38 10:38 11:36 MCHC 29.0 L (31.0-37.0) g/dL ABG pH (7.35-7.45) ABG pCO2 (35-45) mmHg ABG pO2 (83-108) mmHg ABG HCO3 (21-25) mmol/L ABG Total CO2 (19-24) mmol/L ABG O2 Saturation (94-97) % Chloride 94 L (98-107) mmol/L Carbon Dioxide 36 H (22-30) mmol/L BUN 24 H (7-17) mg/dL Glucose 112 H (74-99) mg/dL POC Glucose (mg/dL) 125 H (70-110) mg/dL AST 50 H (14-36) U/L Total Protein 5.7 L (6.3-8.2) g/dL Albumin 2.9 L (3.5-5.0) g/dL 07/10/24 Range/Units 12:49 MCHC (31.0-37.0) g/dL ABG pH 7.33 L (7.35-7.45) ABG pCO2 78 H* (35-45) mmHg ABG pO2 129 H (83-108) mmHg ABG HCO3 41 H* (21-25) mmol/L ABG Total CO2 44 H (19-24) mmol/L ABG O2 Saturation 99.0 H (94-97) % Chloride (98-107) mmol/L Carbon Dioxide (22-30) mmol/L BUN (7-17) mg/dL Glucose (74-99) mg/dL POC Glucose (mg/dL) (70-110) mg/dL AST (14-36) U/L Total Protein (6.3-8.2) g/dL Albumin (3.5-5.0) g/dL Microbiology - Last 24 Hours (Table) 07/08/24 12:13 Blood Culture - Preliminary Blood 07/07/24 10:13 Blood Culture - Preliminary Blood Assessment and Plan (1) Leg ulcer, left Current Visit: Yes Status: Acute Code(s): L97.929 - NON-PRS CHRONIC ULC UNSP PRT OF L LOW LEG W UNSP SEVERITY SNOMED Code(s): 80171723 (2) Left leg cellulitis Current Visit: Yes Status: Acute Code(s): L03.116 - CELLULITIS OF LEFT LOWER LIMB SNOMED Code(s): 16821384407542243 (3) Penicillin allergy Current Visit: Yes Status: Acute Code(s): Z88.0 - ALLERGY STATUS TO PENICILLIN SNOMED Code(s): 51437698 (4) Bacteremia Current Visit: Yes Status: Acute Code(s): R78.81 - BACTEREMIA SNOMED Code(s): 7766232 Plan: 1patient with diffuse swelling of bilateral lower extremity with superficial solution to the left leg likely venous stasis ulcer with secondary cellulitis likely from gram-positive skin neida. 2patient with a penicillin allergy that will limit the number of antibiotics safe to use. 3local wound care to the left leg with dry Aquacel dressing and Blue wrap to keep the swelling down, and apply Santyl to the wound to the right heel change daily discussed with the nursing staff 4patient did have resolution of the fever and the patient has cleared her bacteremia we will continue the daptomycin and cefepime was more prominent in her mentation to do a CT of the abdomen pelvis with contrast if negative may consider HANNA for possible source of this bacteremia Dictation was produced using [employer] dictation software. please excuse any grammatical, word or spelling errors. Time with Patient: Less than 30
[2024-07-10 16:54] LABS: Glucose,Whole Blood 146 mg/dL (70-110)
[2024-07-10 20:07] LABS: Glucose,Whole Blood 169 mg/dL (70-110)
[2024-07-11 06:03] LABS: Glucose,Whole Blood 142 mg/dL (70-110)
[2024-07-11 07:51] LABS: Basophils % (A) 0 %; Eosinophils # (A) 0.1 k/uL (0-0.7); Eosinophils % (A) 2 %; HCT 37.3 % (34.0-46.0); HGB 10.9 gm/dL (11.4-16.0); Hypochromasia Marked; Lymphocytes # (A) 1.1 k/uL (1.0-4.8); Lymphocytes % (A) 15 %; MCH 28.3 pg (25.0-35.0); MCHC 29.1 g/dL (31.0-37.0); MCV 97.4 fL (80.0-100.0); Mean Platelet Volume 8.1; Monocytes # (A) 0.4 k/uL (0-1.0); Monocytes % (A) 5 %; Neutrophils # (A) 5.7 k/uL (1.3-7.7); Neutrophils % (A) 77 %; Platelet Count 174 k/uL (150-450); RBC 3.83 m/uL (3.80-5.40); RDW 14.3 % (11.5-15.5); WBC 7.4 k/uL (3.8-10.6)
[2024-07-11 08:05] LABS: ALT 17 U/L (4-34); AST 46 U/L (14-36); African American GFR (CKD) >90 (>60 ml/min/1.73 sqM); Albumin 2.8 g/dL (3.5-5.0); Alkaline Phosphatase 69 U/L (38-126); Blood Urea Nitrogen 28 mg/dL (7-17); Calcium 8.5 mg/dL (8.4-10.2); Chloride 95 mmol/L (98-107); Glucose 145 mg/dL (74-99); Non-African American GFR(CKD) 88 (>60 ml/min/1.73 sqM); Sodium 139 mmol/L (137-145); Total Bilirubin 0.6 mg/dL (0.2-1.3); Total Protein 5.5 g/dL (6.3-8.2)
[2024-07-11 08:13] LABS: Anion Gap 5 mmol/L
[2024-07-11 08:16] LABS: Carbon Dioxide 39 mmol/L (22-30)
[2024-07-11] MEDS ORDERED: DEXTROSE 50% SYRINGE 50 ML IVP PRN ×2 (10:18)
[2024-07-11 11:16] LABS: Glucose,Whole Blood 166 mg/dL (70-110)
--- NOTE | 2024-07-11 11:42 | P.PN ---
Subjective Progress Note Date: 07/11/24 Principal diagnosis: Reason for follow-up with lower extremity ulcer and cellulitis Patient is a 73-year-old female with a past medical history significant for COPD heart failure diabetes mellitus reflux hyperlipidemia presenting to the hospital for evaluation of a fall that happened the day of presentation to the hospital patient accidentally rolled off the couch onto the floor and was too weak to get herself up, noticed to have bilateral extremity ulcer and cellulitis prompted this consultation. On today's evaluation that is 07/11/2024,the patient did have low-grade fever of 99.3 F this morning, the patient remains to be lethargic she is currently on a BiPAP with 40% FiO2 no vomiting diarrhea with the change reported by the sitter at the bedside. The patient white count 7.4, creatinine 0.68 blood culture repeat has been negative so far Objective - Vital Signs Vital signs: Vital Signs Temp 99.3 F 07/11/24 08:00 Pulse 82 07/11/24 08:00 Resp 24 07/11/24 08:00 BP 127/67 07/11/24 08:00 Pulse Ox 95 07/11/24 08:00 FiO2 40 07/11/24 08:00 Intake & Output 07/10/24 07/11/24 07/11/24 18:59 06:59 18:59 Intake Total 100 10 Output Total 1200 625 Balance -1100 -625 10 Intake: IV 10 Invasive Line 5 10 Intake, IV Titration 100 Amount Cefepime 2 gm In Sodium 100 Chloride 0.9% 100 ml @ 25 mls/hr IVPB Q8H [facility] Rx#: [id number] Output: Urine 1200 625 Other: Voiding Method Indwelling Catheter Indwelling Catheter Indwelling Catheter - Exam GENERAL DESCRIPTION: An elderly female lying in bed in no distress RESPIRATORY SYSTEM: Unlabored breathing , decreased breath sounds at bases HEART: S1 S2 regular rate and rhythm , ABDOMEN: Soft , no tenderness EXTREMITIES: Bilateral lower extremity currently wrapped with an Blue wrap she did have wound on the right heel with necrotic base but no surrounding redness or drainage - Labs CBC & Chem 7: 07/11/24 07:02 07/11/24 07:02 Labs: Abnormal Lab Results - Last 24 Hours (Table) 07/10/24 07/10/24 07/10/24 Range/Units 12:49 16:53 20:05 Hgb (11.4-16.0) gm/dL MCHC (31.0-37.0) g/dL ABG pH 7.33 L (7.35-7.45) ABG pCO2 78 H* (35-45) mmHg ABG pO2 129 H (83-108) mmHg ABG HCO3 41 H* (21-25) mmol/L ABG Total CO2 44 H (19-24) mmol/L ABG O2 Saturation 99.0 H (94-97) % Chloride (98-107) mmol/L Carbon Dioxide (22-30) mmol/L BUN (7-17) mg/dL Glucose (74-99) mg/dL POC Glucose (mg/dL) 146 H 169 H (70-110) mg/dL AST (14-36) U/L Total Protein (6.3-8.2) g/dL Albumin (3.5-5.0) g/dL 07/11/24 07/11/24 07/11/24 Range/Units 06:00 07:02 07:02 Hgb 10.9 L (11.4-16.0) gm/dL MCHC 29.1 L (31.0-37.0) g/dL ABG pH (7.35-7.45) ABG pCO2 (35-45) mmHg ABG pO2 (83-108) mmHg ABG HCO3 (21-25) mmol/L ABG Total CO2 (19-24) mmol/L ABG O2 Saturation (94-97) % Chloride 95 L (98-107) mmol/L Carbon Dioxide 39 H (22-30) mmol/L BUN 28 H (7-17) mg/dL Glucose 145 H (74-99) mg/dL POC Glucose (mg/dL) 142 H (70-110) mg/dL AST 46 H (14-36) U/L Total Protein 5.5 L (6.3-8.2) g/dL Albumin 2.8 L (3.5-5.0) g/dL 07/11/24 Range/Units 11:11 Hgb (11.4-16.0) gm/dL MCHC (31.0-37.0) g/dL ABG pH (7.35-7.45) ABG pCO2 (35-45) mmHg ABG pO2 (83-108) mmHg ABG HCO3 (21-25) mmol/L ABG Total CO2 (19-24) mmol/L ABG O2 Saturation (94-97) % Chloride (98-107) mmol/L Carbon Dioxide (22-30) mmol/L BUN (7-17) mg/dL Glucose (74-99) mg/dL POC Glucose (mg/dL) 166 H (70-110) mg/dL AST (14-36) U/L Total Protein (6.3-8.2) g/dL Albumin (3.5-5.0) g/dL Microbiology - Last 24 Hours (Table) 07/08/24 12:13 Blood Culture - Preliminary Blood 07/07/24 10:13 Blood Culture - Preliminary Blood Assessment and Plan (1) Leg ulcer, left Current Visit: Yes Status: Acute Code(s): L97.929 - NON-PRS CHRONIC ULC UNSP PRT OF L LOW LEG W UNSP SEVERITY SNOMED Code(s): 18947530 (2) Left leg cellulitis Current Visit: Yes Status: Acute Code(s): L03.116 - CELLULITIS OF LEFT LOWER LIMB SNOMED Code(s): 32182881758281007 (3) Penicillin allergy Current Visit: Yes Status: Acute Code(s): Z88.0 - ALLERGY STATUS TO PENICILLIN SNOMED Code(s): 21197410 (4) Bacteremia Current Visit: Yes Status: Acute Code(s): R78.81 - BACTEREMIA SNOMED C ode(s): 3271414 Plan: 1patient with diffuse swelling of bilateral lower extremity with superficial solution to the left leg likely venous stasis ulcer with secondary cellulitis likely from gram-positive skin neida. 2patient with a penicillin allergy that will limit the number of antibiotics safe to use. 3local wound care to the left leg with dry Aquacel dressing and Blue wrap to keep the swelling down, and apply Santyl to the wound to the right heel change daily discussed with the nursing staff 4patient did have improving her fever pattern white count is normal blood culture repeat so far negative, will treat with the daptomycin and cefepime once improvement in her mentation to do a CT of the abdomen pelvis with contrast if negative may consider HANNA for possible source of this bacteremia Dictation was produced using [employer] software. please excuse any grammatical, word or spelling errors. Time with Patient: Less than 30
--- NOTE | 2024-07-11 12:12 | P.PN ---
Subjective HISTORY OF PRESENT ILLNESS: This is a 73-year-old male with a past medical history significant for COPD, congestive heart failure, hypertension, and hyperlipidemia. 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 We have been asked to see the patient in consultation for congestive heart failure. Patient examined at the bedside. Patient presented to the hospital with a chief complaint of increased lower extremity swelling and shortness of breath. Patient was found to be in CHF and was started on IV Lasix. Patient currently denies any chest pain or pressure. Vital signs are stable. DIAGNOSTICS: - EKG reveals sinus mechanism with no signs of acute ischemia - Chest xray correlate for suspected CHF exacerbation. Additionally there is a 4.7 cm masslike consolidation in the right mid to lower lung. Underlying mass/malignancy is not excluded. - Laboratory data: WBC 11.22. Hemoglobin 11.3. Platelet count 185. Sodium 141. Potassium 4.3. BUN 17. Creatinine 0.9. - Current home cardiac medications include rosuvastatin 20 mg daily, enalapril 20 mg daily, and Lasix 40 mg in the morning and 20 mg in the afternoon. 07/06/2024 Patient examined this morning at the bedside. Patient apparently became hypotensive overnight with blood pressures in the 70s and 80s. Her Lasix was discontinued. However she was continued on lisinopril per primary medicine. Systolic blood pressure this morning is in the 90s. July 07, 2024 The patient was seen this morning she still have some change in mental status and she is somewhat lethargic and possibly dehydrated. She is getting a workup for possible sepsis. Hemodynamically she is stable now. The echo is as described above showed normal LV systolic function with mild aortic stenosis. T he physical examination is remarkable for regular rhythm with a systolic murmur at the right and left upper sternal border with severe bilateral lower extremities chronic skin changes and chronic edema July 08, 2024 The patient was seen and evaluated this morning with apparently she was transferred from 6 N. to 3 S.. She still have change in mental status currently under workup. Hemodynamically she is stable. She still have bilateral lower extremities edema. I am going to give the patient only 1 dose of Lasix IV and continue monitor the kidney function and electrolytes. She is under an investigation for right upper lobe mass with possible need for PET scan. The mass was seen on the CT scan as well as chest x-ray. The physical examination is remarkable for change in mental status with regular rate and rhythm and mild sinus tachycardia and diminished breathing sounds bilaterally which is still hypoxic requiring BiPAP at 40% 07/09/2024 Patient has been on BiPAP, severely hypercapnic with retention of bicarb with metabolic encephalopathy Bicarb 44, BUN 29, creatinine 0.5, Hb 10.6 07/10/2024 Patient remains somnolent on BiPAP She is on IV antibiotics BP 123/69, heart rate 76, Echo from this admission shows an EF of 55%, moderate concentric LVH, moderate to severe pulmonary hypertension with RVSP of 54 mmHg, 07/11/2024 Patient examined this morning at the bedside. Patient remains confused. She is currently on BiPAP. BUN 28. Creatinine 0.68. PHYSICAL EXAM: VITAL SIGNS: Reviewed. GENERAL: Well-developed in no acute distress. HEENT: Head is normocephalic. Pupils are equal, round. Sclerae anicteric. Mucous membranes of the mouth are moist. Neck supple. No JVD or thyromegaly LUNGS: Respirations even and unlabored. Lungs essentially clear to auscultation bilaterally. HEART: Regular rate and rhythm. S1 and S2 heard. EXTREMITIES: Normal range of motion. No clubbing or cyanosis. Peripheral pulses intact. Bilateral lower extremity edema with evidence of cellulitis ASSESSMENT: Bilateral lower extremity cellulitis Acute on chronic heart failure with preserved EF Metabolic encephalopathy History of COPD Right lung mass, pulmonary following Hypertension Hyperlipidemia Morbid obesity: BMI 46.1 Hypotension PLAN: Continue current cardiac medications including Diamox and oral Bumex Daily weights, accurate intake and output, and monitoring of kidney function Further recommendations pending patient course Nurse practitioner note has been reviewed by physician. Signing provider agrees with the documented findings, assessment, and plan of care documented by [employer] as a scribe. Objective - Vital Signs Vital signs: Vital Signs Temp 99.3 F 07/11/24 08:00 Pulse 82 07/11/24 08:00 Resp 24 07/11/24 08:00 BP 127/67 07/11/24 08:00 Pulse Ox 95 07/11/24 08:00 FiO2 40 07/11/24 08:00 Intake & Output 07/10/24 07/11/24 07/11/24 18:59 06:59 18:59 Intake Total 100 10 Output Total 1200 625 Balance -1100 -625 10 Intake: IV 10 Invasive Line 5 10 Intake, IV Titration 100 Amount Cefepime 2 gm In Sodium 100 Chloride 0.9% 100 ml @ 25 mls/hr IVPB Q8H [facility] Rx#: [id number] Output: Urine 1200 625 Other: Voiding Method Indwelling Catheter Indwelling Catheter Indwelling Catheter - Labs CBC & Chem 7: 07/11/24 07:02 07/11/24 07:02 Labs: Abnormal Lab Results - Last 24 Hours (Table) 07/10/24 07/10/24 07/10/24 Range/Units 12:49 16:53 20:05 Hgb (11.4-16.0) gm/dL MCHC (31.0-37.0) g/dL ABG pH 7.33 L (7.35-7.45) ABG pCO2 78 H* (35-45) mmHg ABG pO2 129 H (83-108) mmHg ABG HCO3 41 H* (21-25) mmol/L ABG Total CO2 44 H (19-24) mmol/L ABG O2 Saturation 99.0 H (94-97) % Chloride (98-107) mmol/L Carbon Dioxide (22-30) mmol/L BUN (7-17) mg/dL Glucose (74-99) mg/dL POC Glucose (mg/dL) 146 H 169 H (70-110) mg/dL AST (14-36) U/L Total Protein (6.3-8.2) g/dL Albumin (3.5-5.0) g/dL 07/11/24 07/11/24 07/11/24 Range/Units 06:00 07:02 07:02 Hgb 10.9 L (11.4-16.0) gm/dL MCHC 29.1 L (31.0-37.0) g/dL ABG pH (7.35-7.45) ABG pCO2 (35-45) mmHg ABG pO2 (83-108) mmHg ABG HCO3 (21-25) mmol/L ABG Total CO2 (19-24) mmol/L ABG O2 Saturation (94-97) % Chloride 95 L (98-107) mmol/L Carbon Dioxide 39 H (22-30) mmol/L BUN 28 H (7-17) mg/dL Glucose 145 H (74-99) mg/dL POC Glucose (mg/dL) 142 H (70-110) mg/dL AST 46 H (14-36) U/L Total Protein 5.5 L (6.3-8.2) g/dL Albumin 2.8 L (3.5-5.0) g/dL 07/11/24 Range/Units 11:11 Hgb (11.4-16.0) gm/dL MCHC (31.0-37.0) g/dL ABG pH (7.35-7.45) ABG pCO2 (35-45) mmHg ABG pO2 (83-108) mmHg ABG HCO3 (21-25) mmol/L ABG Total CO2 (19-24) mmol/L ABG O2 Saturation (94-97) % Chloride (98-107) mmol/L Carbon Dioxide (22-30) mmol/L BUN (7-17) mg/dL Glucose (74-99) mg/dL POC Glucose (mg/dL) 166 H (70-110) mg/dL AST (14-36) U/L Total Protein (6.3-8.2) g/dL Albumin (3.5-5.0) g/dL Microbiology - Last 24 Hours (Table) 07/08/24 12:13 Blood Culture - Preliminary Blood 07/07/24 10:13 Blood Culture - Preliminary Blood
[2024-07-11] MEDS: INSULIN LISPRO (HumaLOG) 100 UNIT/ML 10 mL VL SQ SCH (13:09)
[2024-07-11 13:56] LABS: ABG Base Excess 11.6 mmol/L; ABG Oxygen Saturation 96.4 % (94-97); ABG PH 7.36 (7.35-7.45); ABG PO2 83 mmHg (83-108); ABG TCO2 42 mmol/L (19-24); Allen Test Performed? Yes
[2024-07-11 14:00] LABS: ABG HCO3 40 mmol/L (21-25); ABG PCO2 71 mmHg (35-45)
[2024-07-11 15:11] LABS: Glucose,Whole Blood 95 mg/dL (70-110)
--- NOTE | 2024-07-11 15:17 | P.PN ---
Subjective Progress Note Date: 07/11/24 This is a 73-year-old obese white female today seen in room 620. She came to the hospital with 1 day of shortness of breath, leg swelling, and cough. Her viral screen was negative. The patient has smoked for about 40 to 45 years. The only medicine she takes at home for her breathing is albuterol. Her procalcitonin level was 0.05. Chest x-ray showed some fluid overload, but also showed a possible mass in the right midlung, which could be either an actual mass or pseudotumor. A CT scan was ordered. It does show a 7.1 lobulated mass in the right lung. A PET scan was recommended. Currently, the patient is on 4 L of oxygen. No fluids are ordered. She is getting Lasix 40 mg every 8 hours. She also has an updraft ordered. White count 1.22, hemoglobin 11.3, macro 39.1, platelet count 185,000. Coags are normal. Sodium 141, potassium 4.3, chlorides 94, CO2 39, BUN 17.5, creatinine 0.9. Glucose 169. Calcium 8.6. Troponin was negative. N-terminal proBNP was elevated at 1830. Procalcitonin level was 0.05. Urine is negative. Viral screen was negative. Chest x-ray was consistent with fluid overload/CHF. Cardiology has seen the patient. The patient is seen today July 06, 2024 in follow-up on the regular medical floor. She is currently sitting up in bed. Awake and alert in no acute distress. She is maintaining O2 saturations in the 90s on 4 L/min per nasal cannula. She is receiving normal saline at 75 mL/h. White count 10.2. Hemoglobin 11.5. Platelets 198. Sodium 134. Potassium 4.5. Bicarb 38. BUN 29. Creatinine 0.83. Glucose 132. She remains on cefazolin. IV diuretics were discontinued. The patient is seen today July 07, 2024 in follow-up on the regular medical floor. She is currently resting comfortably in bed. Awake and alert in no acute distress. Maintaining good O2 saturations in the 90s on 5 L/min per nasal cannula. She is receiving normal saline at 50 mL/h. Her blood culture isshowing Enterococcus faecium. She is currently on daptomycin. Remains on bronchodilators. 1.2. Platelets 204. Sodium 144. Potassium 5.2. Bicarb 39. BUN 24. Creatinine 0.6. Glucose 153. Progress note dated July 08, 2024. The patient was moved down to the third floor, sometime yesterday or last night, for respiratory distress. I was never notified. The patient was seen today in room 360. She was on BiPAP, with settings of 12/5, and 40%. She was getting saline at 20 cc an hour. A blood gas was done on 44% oxygen showing a pO2 of 84, pCO2 of 91, pH is 7.29. Her blood cultures were positive for Enterococcus faecium. For that reason, she is on daptomycin. Current labs include a white count 7.8, hemoglobin 11.2, hematocrit 38.3, and a platelet count of 173,000. Sodium 139, potassium 4.5, chlorides 93, CO2 40, BUN 29, and creatinine 0.58. Glucose 74. Albumin is 3. Chest x-ray done yesterday, continues to show me in addition, there is diffuse changes, consistent with fluid overload and/or pneumonia. On 07/09/2024, the patient is being seen for a follow-up. Morbidly obese female patient was hospitalized for an acute on top of chronic hypoxic and hypercapnic respiratory failure. At the time of my evaluation this morning, the patient was started on a BiPAP at a pressure of 12/5 with an FiO2 of 40%. I took the patient off the BiPAP and put her on 4 L of oxygen by nasal cannula. Subsequent blood gases showed a pH of 7.34 with pCO2 of 86 and pO2 162. The patient has a mass like consolidation involving the right lower lobe. This could be pneumonia versus malignancy. At the same time, the patient is septic and the source of sepsis is a wound infection and the patient has active wet wound with purulent foul-smelling material covering the wound base and the right lower extremity above the lateral malleolus. Blood culture was positive for Enterococcus faecalis and based on that, the patient has been maintained on a combination of daptomycin and the patient is also on IV cefepime. Repeat chest x-ray was done and it showed a right lower lobe masslike opacity that remains unchanged compared to the previous x-rays in addition to mild cardiomegaly and pulm vessel congestion. The patient is sitting daily diuresis. The patient is producing excellent urine output and the fluid balance is -2.6 L over the past 24 hours. The white cell count is 7.1 with a heme of 10.6 and a platelet count of 151. Serum bicarb is 44 with BUN of 29 and a creatinine of 0.5. Sodium is at 140. She remains encephalopathic. She is arousable. She has tolerated the BiPAP reasonably well. On 07/10/2024, the patient is being seen for a follow-up. The patient remains on BiPAP and she seems to be tolerating the BiPAP reasonably well. This morning, the patient is on a BiPAP at a pressure of 12 over 5 cm of water with an FiO2 of 40% which is essentially the same setting as yesterday. She is arousable and she is able to communicate. At times confused. I took this patient off the BiPAP and put her on oxygen at 5 L/min nasal cannula. Subsequent blood gases showed a pH of 7.33 with a pCO2 of 78 and pO2 of 129. She is still lethargic and weak. Denies having any chest pain. She does have swelling in lower extremities bilaterally. She was given IV Lasix yesterday and her fluid balance is -3.1 L over the past 24 hours. She remains on Bumex 1 mg p.o. daily. She is also on Diamox 5 mg IV every 12 hours. The blood work from today shows a BUN of 24 with a creatinine of 0.7. Serum bicarb is at 36 and a sodium levels at 140. The white cell count is 7.9 with a hemoglobin of 11.4 and a platelet count of 164. The follow-up chest x-ray from yesterday was still showing a masslike consolidation/opacity in the right midlung/right lower lobe area. The patient also has some ongoing mild cardiomegaly. Wound care is being applied. ID is on the case. The patient remains on daptomycin and IV cefepime. On 07/11/2024, the patient is being seen for a follow-up. Remains quite lethargic and continues to have diminished level of consciousness. She remains on a BiPAP at her same setting of 12 over 5 cm of water. Repeat blood gas was done with an FiO2 40% showed a pH of 7.36 with a pCO2 of 71 and pO2 of 83. The patient is however arousable. She continues to be treated for a extensive right lower extremity wound infection with septicemia the patient had Enterococcus faecium and she remains essentially same antibiotic coverage including combination of cefepime and daptomycin. On today's blood work, the white cell count is 7.4 with a hemoglobin 10.9 and a platelet count of 174. The sodium level is at 139, BUN is 28 with a creatinine of 0.6. Potassium is at 4 and a serum bicarb is at 39. She is on Diamox 500 mg IV every 12 hours. She is on Bumex 1 mg p.o. daily. Rest of the medications are essentially unchanged. No significant agitation. Objective - Vital Signs Vital signs: Vital Signs Temp 99.3 F 07/11/24 08:00 Pulse 82 07/11/24 08:00 Resp 24 07/11/24 08:00 BP 127/67 07/11/24 08:00 Pulse Ox 95 07/11/24 08:00 FiO2 40 07/11/24 08:00 Intake & Output 07/10/24 07/11/24 07/11/24 18:59 06:59 18:59 Intake Total 100 10 Output Total 1200 625 Balance -1100 -625 10 Intake: IV 10 Invasive Line 5 10 Intake, IV Titration 100 Amount Cefepime 2 gm In Sodium 100 Chloride 0.9% 100 ml @ 25 mls/hr IVPB Q8H [facility] Rx#: [id number] Output: Urine 1200 625 Other: Voiding Method Indwelling Catheter Indwelling Catheter Indwelling Catheter - Exam GENERAL EXAM: Alert, pleasant 73-year-old female, resting in bed, o lethargic and sleepy and currently on BiPAP at a pressure of 12/5 with an FiO2 of 40%. Arousable yet goes back to sleep if left unstimulated morbidly obese, sleepy, able to tolerate BiPAP. HEAD: Normocephalic. EYES: Normal reaction of pupils, equal size. NOSE: Clear with pink turbinates. THROAT: No erythema or exudates. NECK: No masses, no JVD. CHEST: No chest wall deformity. LUNGS: Equal air entry with no crackles, wheeze, rhonchi or dullness. CVS: S1 and S2 normal with no audible murmur, regular rhythm. ABDOMEN: No hepatosplenomegaly, normal bowel sounds, no guarding or rigidity. SPINE: No scoliosis or deformity SKIN: No rashes. Chronic venous stasis of the lower extremities. L purulent right lower extremity ulcer with purulent material covering the base of the ulcer on the right lower extremity and stage IV Ulcer in the right foot. CENTRAL NERVOUS SYSTEM: No focal deficits, tone is normal in all 4 extremities. Lethargic, encephalopathic and weak EXTREMITIES: Changes of chronic venous stasis. There is no peripheral edema. No clubbing, no cyanosis. Peripheral pulses are intact. - Labs CBC & Chem 7: 07/11/24 07:02 07/11/24 07:02 Labs: Abnormal Lab Results - Last 24 Hours (Table) 07/10/24 07/10/24 07/10/24 Range/Units 10:38 10:38 11:36 Hgb (11.4-16.0) gm/dL MCHC 29.0 L (31.0-37.0) g/dL ABG pH (7.35-7.45) ABG pCO2 (35-45) mmHg ABG pO2 (83-108) mmHg ABG HCO3 (21-25) mmol/L ABG Total CO2 (19-24) mmol/L ABG O2 Saturation (94-97) % Chloride 94 L (98-107) mmol/L Carbon Dioxide 36 H (22-30) mmol/L BUN 24 H (7-17) mg/dL Glucose 112 H (74-99) mg/dL POC Glucose (mg/dL) 125 H (70-110) mg/dL AST 50 H (14-36) U/L Total Protein 5.7 L (6.3-8.2) g/dL Albumin 2.9 L (3.5-5.0) g/dL 07/10/24 07/10/24 07/10/24 Range/Units 12:49 16:53 20:05 Hgb (11.4-16.0) gm/dL MCHC (31.0-37.0) g/dL ABG pH 7.33 L (7.35-7.45) ABG pCO2 78 H* (35-45) mmHg ABG pO2 129 H (83-108) mmHg ABG HCO3 41 H* (21-25) mmol/L ABG Total CO2 44 H (19-24) mmol/L ABG O2 Saturation 99.0 H (94-97) % Chloride (98-107) mmol/L Carbon Dioxide (22-30) mmol/L BUN (7-17) mg/dL Glucose (74-99) mg/dL POC Glucose (mg/dL) 146 H 169 H (70-110) mg/dL AST (14-36) U/L Total Protein (6.3-8.2) g/dL Albumin (3.5-5.0) g/dL 07/11/24 07/11/24 07/11/24 Range/Units 06:00 07:02 07:02 Hgb 10.9 L (11.4-16.0) gm/dL MCHC 29.1 L (31.0-37.0) g/dL ABG pH (7.35-7.45) ABG pCO2 (35-45) mmHg ABG pO2 (83-108) mmHg ABG HCO3 (21-25) mmol/L ABG Total CO2 (19-24) mmol/L ABG O2 Saturation (94-97) % Chloride 95 L (98-107) mmol/L Carbon Dioxide 39 H (22-30) mmol/L BUN 28 H (7-17) mg/dL Glucose 145 H (74-99) mg/dL POC Glucose (mg/dL) 142 H (70-110) mg/dL AST 46 H (14-36) U/L Total Protein 5.5 L (6.3-8.2) g/dL Albumin 2.8 L (3.5-5.0) g/dL Microbiology - Last 24 Hours (Table) 07/08/24 12:13 Blood Culture - Preliminary Blood 07/07/24 10:13 Blood Culture - Preliminary Blood Assessment and Plan Plan: Acute hypoxemic hypercapnic respiratory failure with significant respiratory acidosis based on the blood gas was done on 07/07/2024. Respiratory failure, multifactorial, the patient is morbidly obese. She may have, a component of COPD/CHF. In addition, the patient has a masslike opacity in the right lower lobe, rule out a consolidating mass/malignancy/pneumonia. Echocardiogram showed a preserved LV function. Nevertheless, the patient has moderate severe pulm hypertension with mild aortic stenosis. The patient is currently on BIPAP 12/5 cm of water with an FiO2 of 40% Sepsis secondary to enterococcal septicemia and the blood cultures were n egative. The patient is currently on a combination of cefepime and daptomycin. Altered mentation/encephalopathy secondary to above, and the patient has a component of CO2 narcosis. 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 Blood cultures positive for Enterococcus faecium. Source is right lower extremity cellulitis/wound Right lower extremity infected wound. The wound is wet and there is purulent discharge ongoing. The patient also has a stage IV heel ulcer. Diabetes mellitus. Gastroesophageal reflux disease. Hyperlipidemia. Hypothyroidism. Morbid obesity Plan: Overall condition is essentially unchanged Repeat blood gases showed improvement in acid-base status and the patient remains on Bumex and Diamox Continue BiPAP therapy at the same setting of 12/5 cm of water Repeat blood gas in the morning Will alternate between the BiPAP and oxygen nasal cannula. Prefer to go with the BiPAP overnight. Repeat chest x-ray in the morning Blood cultures positive for Enterococcus faecium and the patient is currently on a combination of cefepime and daptomycin. ID is on the case. Keep IV fluids at KVO Continue IV cefepime and daptomycin Right lower extremity wound care Monitor respiratory status The patient has a full CODE STATUS. Will transfer the patient to the ICU for closer monitoring. Time with Patient: Greater than 30
--- NOTE | 2024-07-11 16:40 | P.PN ---
Subjective Progress Note Date: 07/11/24 Ajay Robertson, is a 73-year-old female who presented to [facility] emergency room with a chief complaint of worsening shortness of breath, additionally patient was found on the floor in her house, she stated that she fell while asleep and was not able to stand up. She was evaluated in the emergency room vital examination on presentation revealed a temperature of 98.3 pulse 89 respiration 20 blood pressure 115/73 pulse ox 95% on 5 L nasal cannula Laboratory data revealed a white blood count of 11.4 hemoglobin 12.7 platelet count 190 BUN 20 creatinine 0.64 influenza A and B RSV and COVID-19 PCR were all negative Testing in the emergency room revealed chest x-ray revealed pulmonary congestion suggestive of congestive heart failure exacerbation and a new 4.7 masslike consolidation in the right mid to lower lung Patient was admitted to medical floor for further evaluation and treatment Past medical history is significant for history of hypertension, history of hyperlipidemia, history of hypothyroidism, history of diabetes mellitus, history of COPD, history of congestive heart failure, history of morbid obesity, history of recurrent episodes of bilateral lower extremity cellulitis. On review of systems patient is alert and oriented x 3 in no apparent distress, she is complaining of generalized body ache, she is complaining of shortness of breath, otherwise she denies any complaints there is no fever or chills no headache or dizziness no chest pain, she has occasional cough no nausea or vomiting no abdominal pain no diarrhea and no urinary symptoms. On 07/05/2024 patient is alert and oriented x 3. Awaiting consulting providers input. Patient remains on IV Lasix. CT of the chest has been completed. At this time patient denies chest pain. Patient denies nausea vomiting or diarrhea. Patient denies any urinary burning or frequency On 07/06/2024 patient is alert and oriented x 3. Patient remains on IV Lasix and IV antibiotics. Cardiology pulmonary and infectious disease services are following. Current vital signs temp 98.1, heart rate 67, respiratory rate 15, blood pressure 96/53 with a pulse ox of 93% on 4 L. Patient denies chest pain or shortness of breath. Patient denies nausea vomiting or diarrhea. Patient denies any urinary burning or frequency. On 07/07/2024 patient was seen and examined on the telemetry floor she is somnolent arousable in no apparent distress, yesterday patient was agitated and aggressive with medical staff, Seroquel was added to her medication regimen, however today she is more somnolent, Seroquel will be changed to as needed only. There is no fever or chills no headache or dizziness no chest pain patient still has shortness of breath with any activity and cough no nausea or vomiting no abdominal pain no diarrhea no urinary symptoms. On 07/08/2024 patient was seen and examined on the telemetry floor, she is so mnolent responsive in no apparent distress, currently she is maintained on BiPAP, she had episodes of agitation through the night, she was pulling off her IV in the BiPAP, she received 1 dose of IM Haldol, she is maintained on soft restraints at this time, her vital examination reveals a temperature of 99.8 pulse 109 respiration 22 pulse ox 95% on BiPAP FiO2 40% she is maintained on IV daptomycin infectious disease are following On 07/09/2024 patient was seen and examined on the telemetry floor, she is somnolent responsive in no apparent distress, she is still having episodes of agitation requiring as needed Seroquel use, otherwise she is improving gradually, there is no fever or chills no headache or dizziness no chest pain, she has shortness of breath with any activity, no nausea or vomiting no abdominal pain no diarrhea and no urinary symptoms, she remains on IV antibiotics, infectious disease are following, also cardiology and pulmonary are following On 07/10/2024 patient remains somnolent on BiPAP. Pulmonary and infectious disease services following. Patient remains on IV antibiotics. Patient remains on IV Diamox. Current vital signs temp 99.8, heart rate 78, respiratory rate 18, blood pressure 123/69 with a pulse ox of 96% on BiPAP with an FiO2 of 40. On 07/11/2024 patient was seen and examined on the medical floor, she is alert responsive in no apparent distress, she was maintained on BiPAP through the night, there is no fever or chills no headache or dizziness no chest pain no shortness of breath at rest, she has occasional cough and severe shortness of breath with any activity no nausea or vomiting no abdominal pain no diarrhea no urinary symptoms. Objective - Vital Signs Vital signs: Vital Signs Temp 98.1 F 07/11/24 04:30 Pulse 67 07/11/24 04:30 Resp 22 07/11/24 04:30 BP 129/66 07/11/24 04:30 Pulse Ox 95 07/11/24 04:30 FiO2 60 07/11/24 05:41 Intake & Output 07/10/24 07/11/24 07/11/24 18:59 06:59 18:59 Intake Total 100 Output Total 1200 625 Balance -1100 -625 Intake: Intake, IV Titration 100 Amount Cefepime 2 gm In Sodium 100 Chloride 0.9% 100 ml @ 25 mls/hr IVPB Q8H [facility] Rx#: [id number] Output: Urine 1200 625 Other: Voiding Method Indwelling Catheter Indwelling Catheter - Exam In general patient is alert and oriented x 3 in no distress HEENT head normocephalic and atraumatic Neck is supple no JVD no goiter no lymphadenopathy no carotid bruit Chest examination reveals a scattered crackles bilaterally no wheezing Cardiac exam reveals regular heart sounds S1 and S2 no gallops no murmurs Abdomen is soft nontender no organomegaly with normal bowel sounds Extremity exam reveals 3+ edema with erythema and chronic stasis changes, m ultiple small ulceration with scabbing no cyanosis or clubbing Neurological examination reveals no gross focal deficits - Labs CBC & Chem 7: 07/11/24 07:02 07/11/24 07:02 Labs: Abnormal Lab Results - Last 24 Hours (Table) 07/10/24 07/10/24 07/10/24 Range/Units 10:38 10:38 11:36 MCHC 29.0 L (31.0-37.0) g/dL ABG pH (7.35-7.45) ABG pCO2 (35-45) mmHg ABG pO2 (83-108) mmHg ABG HCO3 (21-25) mmol/L ABG Total CO2 (19-24) mmol/L ABG O2 Saturation (94-97) % Chloride 94 L (98-107) mmol/L Carbon Dioxide 36 H (22-30) mmol/L BUN 24 H (7-17) mg/dL Glucose 112 H (74-99) mg/dL POC Glucose (mg/dL) 125 H (70-110) mg/dL AST 50 H (14-36) U/L Total Protein 5.7 L (6.3-8.2) g/dL Albumin 2.9 L (3.5-5.0) g/dL 07/10/24 07/10/24 07/10/24 Range/Units 12:49 16:53 20:05 MCHC (31.0-37.0) g/dL ABG pH 7.33 L (7.35-7.45) ABG pCO2 78 H* (35-45) mmHg ABG pO2 129 H (83-108) mmHg ABG HCO3 41 H* (21-25) mmol/L ABG Total CO2 44 H (19-24) mmol/L ABG O2 Saturation 99.0 H (94-97) % Chloride (98-107) mmol/L Carbon Dioxide (22-30) mmol/L BUN (7-17) mg/dL Glucose (74-99) mg/dL POC Glucose (mg/dL) 146 H 169 H (70-110) mg/dL AST (14-36) U/L Total Protein (6.3-8.2) g/dL Albumin (3.5-5.0) g/dL 07/11/24 Range/Units 06:00 MCHC (31.0-37.0) g/dL ABG pH (7.35-7.45) ABG pCO2 (35-45) mmHg ABG pO2 (83-108) mmHg ABG HCO3 (21-25) mmol/L ABG Total CO2 (19-24) mmol/L ABG O2 Saturation (94-97) % Chloride (98-107) mmol/L Carbon Dioxide (22-30) mmol/L BUN (7-17) mg/dL Glucose (74-99) mg/dL POC Glucose (mg/dL) 142 H (70-110) mg/dL AST (14-36) U/L Total Protein (6.3-8.2) g/dL Albumin (3.5-5.0) g/dL Microbiology - Last 24 Hours (Table) 07/08/24 12:13 Blood Culture - Preliminary Blood 07/07/24 10:13 Blood Culture - Preliminary Blood Assessment and Plan Plan: Acute congestive heart failure exacerbation New 4.7 cm masslike consolidation opacity in the right midlung Fall at home, with generalized body pain Bilateral lower extremity cellulitis, with multiple open ulcers Underlying history of hypertension Underlying history of hyperlipidemia Underlying history of diabetes mellitus Underlying history of COPD Underlying history of morbid obesity At this time patient was admitted to telemetry floor Echocardiogram ordered Home medications reviewed and reordered Patient was started on IV Lasix in the emergency room Consultation for pulmonary, infectious disease, and cardiology initiated Will follow closely
[2024-07-11 18:18] LABS: Glucose,Whole Blood 110 mg/dL (70-110)
[2024-07-11 19:36] LABS: Glucose,Whole Blood 132 mg/dL (70-110)
[2024-07-12] MEDS: DEXMEDETOMIDINE/0.9% NACL(PMX) 400 MCG in EMPTY BAG 1 BAG IV SCH (00:55)
[2024-07-12 03:22] LABS: HCT 37.6 % (34.0-46.0); HGB 10.7 gm/dL (11.4-16.0); Hypochromasia Marked; MCH 28.4 pg (25.0-35.0); MCHC 28.5 g/dL (31.0-37.0); MCV 99.7 fL (80.0-100.0); Macrocytosis Slight; Mean Platelet Volume 8.7; Platelet Count 176 k/uL (150-450); RBC 3.77 m/uL (3.80-5.40); RDW 14.7 % (11.5-15.5)
[2024-07-12 03:34] LABS: African American GFR (CKD) >90 (>60 ml/min/1.73 sqM); Anion Gap 5 mmol/L; Blood Urea Nitrogen 34 mg/dL (7-17); Calcium 8.6 mg/dL (8.4-10.2); Carbon Dioxide 36 mmol/L (22-30); Chloride 96 mmol/L (98-107); Glucose 127 mg/dL (74-99); Non-African American GFR(CKD) 89 (>60 ml/min/1.73 sqM); Potassium 4.1 mmol/L (3.5-5.1); Sodium 137 mmol/L (137-145)
[2024-07-12 06:27] LABS: Glucose,Whole Blood 139 mg/dL (70-110)
--- NOTE | 2024-07-12 08:26 | XR ---
EXAMINATION TYPE: XR chest 1V portable DATE OF EXAM: 07/12/2024 5:35 AM COMPARISON: Chest radiographs from 07/09/2024. CLINICAL INDICATION: Female, 73 years old with history of chf, bipap; TECHNIQUE: XR chest 1V portable Frontal view of the chest. FINDINGS: Lungs/Pleura: Right midlung airspace opacity again seen with layering right pleural effusion. There i s no evidence of pleural effusion, focal consolidation, or pneumothorax. Pulmonary vascularity: Pulmonary vascular congestion. Heart/mediastinum: Cardiomediastinal silhouette is enlarged. Musculoskeletal: No acute osseous pathology. IMPRESSION: 1. Right midlung masslike opacity 2. Mild cardiomegaly, right pleural effusion and pulmonary vascular congestion. [facility], , 07/12/2024 8:23 AM
--- NOTE | 2024-07-12 08:53 | P.PN ---
Subjective Progress Note Date: 07/12/24 Ajay Robertson, is a 73-year-old female who presented to [facility] emergency room with a chief complaint of worsening shortness of breath, additionally patient was found on the floor in her house, she stated that she fell while asleep and was not able to stand up. She was evaluated in the emergency room vital examination on presentation revealed a temperature of 98.3 pulse 89 respiration 20 blood pressure 115/73 pulse ox 95% on 5 L nasal cannula Laboratory data revealed a white blood count of 11.4 hemoglobin 12.7 platelet count 190 BUN 20 creatinine 0.64 influenza A and B RSV and COVID-19 PCR were all negative Testing in the emergency room revealed chest x-ray revealed pulmonary congestion suggestive of congestive heart failure exacerbation and a new 4.7 masslike consolidation in the right mid to lower lung Patient was admitted to medical floor for further evaluation and treatment Past medical history is significant for history of hypertension, history of hyperlipidemia, history of hypothyroidism, history of diabetes mellitus, history of COPD, history of congestive heart failure, history of morbid obesity, history of recurrent episodes of bilateral lower extremity cellulitis. On review of systems patient is alert and oriented x 3 in no apparent distress, she is complaining of generalized body ache, she is complaining of shortness of breath, otherwise she denies any complaints there is no fever or chills no headache or dizziness no chest pain, she has occasional cough no nausea or vomiting no abdominal pain no diarrhea and no urinary symptoms. On 07/05/2024 patient is alert and oriented x 3. Awaiting consulting providers input. Patient remains on IV Lasix. CT of the chest has been completed. At this time patient denies chest pain. Patient denies nausea vomiting or diarrhea. Patient denies any urinary burning or frequency On 07/06/2024 patient is alert and oriented x 3. Patient remains on IV Lasix and IV antibiotics. Cardiology pulmonary and infectious disease services are following. Current vital signs temp 98.1, heart rate 67, respiratory rate 15, blood pressure 96/53 with a pulse ox of 93% on 4 L. Patient denies chest pain or shortness of breath. Patient denies nausea vomiting or diarrhea. Patient denies any urinary burning or frequency. On 07/07/2024 patient was seen and examined on the telemetry floor she is somnolent arousable in no apparent distress, yesterday patient was agitated and aggressive with medical staff, Seroquel was added to her medication regimen, however today she is more somnolent, Seroquel will be changed to as needed only. There is no fever or chills no headache or dizziness no chest pain patient still has shortness of breath with any activity and cough no nausea or vomiting no abdominal pain no diarrhea no urinary symptoms. On 07/08/2024 patient was seen and examined on the telemetry floor, she is so mnolent responsive in no apparent distress, currently she is maintained on BiPAP, she had episodes of agitation through the night, she was pulling off her IV in the BiPAP, she received 1 dose of IM Haldol, she is maintained on soft restraints at this time, her vital examination reveals a temperature of 99.8 pulse 109 respiration 22 pulse ox 95% on BiPAP FiO2 40% she is maintained on IV daptomycin infectious disease are following On 07/09/2024 patient was seen and examined on the telemetry floor, she is somnolent responsive in no apparent distress, she is still having episodes of agitation requiring as needed Seroquel use, otherwise she is improving gradually, there is no fever or chills no headache or dizziness no chest pain, she has shortness of breath with any activity, no nausea or vomiting no abdominal pain no diarrhea and no urinary symptoms, she remains on IV antibiotics, infectious disease are following, also cardiology and pulmonary are following On 07/10/2024 patient remains somnolent on BiPAP. Pulmonary and infectious disease services following. Patient remains on IV antibiotics. Patient remains on IV Diamox. Current vital signs temp 99.8, heart rate 78, respiratory rate 18, blood pressure 123/69 with a pulse ox of 96% on BiPAP with an FiO2 of 40. On 07/11/2024 patient was seen and examined on the medical floor, she is alert responsive in no apparent distress, she was maintained on BiPAP through the night, there is no fever or chills no headache or dizziness no chest pain no shortness of breath at rest, she has occasional cough and severe shortness of breath with any activity no nausea or vomiting no abdominal pain no diarrhea no urinary symptoms. On 07/12/2024 patient is alert but remains confused. Patient remains in the ICU. Patient was on BiPAP for 6 hours. Patient did require Precedex for increased agitation. Patient remains on IV cefepime and Diamox. Along with scheduled Bumex. Colace added for constipation. Patient denies chest pain. Patient denies nausea vomiting or diarrhea. Patient denies any urinary burning frequency Objective - Vital Signs Vital signs: Vital Signs Temp 99.6 F 07/12/24 08:00 Pulse 86 07/12/24 08:00 Resp 16 07/12/24 08:00 BP 125/67 07/12/24 08:00 Pulse Ox 95 07/12/24 08:41 FiO2 40 07/12/24 04:06 Intake & Output 07/11/24 07/12/24 07/12/24 18:59 06:59 18:59 Intake Total 120 496.258 0.656 Output Total 100 425 30 Balance 20 71.258 -29.344 Weight 105 kg 106.9 kg Intake: IV 20 320 Cefepime 2 gm In Sodium 200 Chloride 0.9% 100 ml @ 25 mls/hr IVPB Q8H [facility] Rx#: [id number] DAPTOmycin 800 mg In 120 Sodium Chloride 0.9% 50 ml @ 100 mls/hr IVPB Q24H [facility] Rx#:[id number] Invasive Line 5 20 Intake, IV Titration 176.258 0.656 Amount Cefepime 2 gm In Sodium 100 Chloride 0.9% 100 ml @ 25 mls/hr IVPB Q8H [facility] Rx#: [id number] Dexmedetomidine/0.9% NaCl 76.258 0.656 (Pmx) 400 mcg In Empty Bag 1 bag @ 0.2 MCG/KG/HR 5.25 mls/hr IV .Q19H3M [facility] Rx#:[id number] Oral 100 Output: Urine 100 425 30 Other: Voiding Method Indwelling Catheter Indwelling Catheter - Exam In general patient is alert and oriented x 3 in no distress HEENT head normocephalic and atraumatic Neck is supple no JVD no goiter no lymphadenopathy no carotid bruit Chest examination reveals a scattered crackles bilaterally no wheezing Cardiac exam reveals regular heart sounds S1 and S2 no gallops no murmurs Abdomen is soft nontender no organomegaly with normal bowel sounds Extremity exam reveals 3+ edema with erythema and chronic stasis changes, multiple small ulceration with scabbing no cyanosis or clubbing Neurological examination reveals no gross focal deficits - Labs CBC & Chem 7: 0403/25 03:00 07/12/24 03:00 Labs: Abnormal Lab Results - Last 24 Hours (Table) 07/11/24 07/11/24 07/11/24 Range/Units 11:11 13:49 19:34 RBC (3.80-5.40) m/uL Hgb (11.4-16.0) gm/dL MCHC (31.0-37.0) g/dL ABG pCO2 71 H* (35-45) mmHg ABG HCO3 40 H* (21-25) mmol/L ABG Total CO2 42 H (19-24) mmol/L Hemoglobin 11.2 L (11.4-16.0) gm/dL Chloride (98-107) mmol/L Carbon Dioxide (22-30) mmol/L BUN (7-17) mg/dL Glucose (74-99) mg/dL POC Glucose (mg/dL) 166 H 132 H (70-110) mg/dL 07/12/24 07/12/24 07/12/24 Range/Units 03:00 03:00 06:26 RBC 3.77 L (3.80-5.40) m/uL Hgb 10.7 L (11.4-16.0) gm/dL MCHC 28.5 L (31.0-37.0) g/dL ABG pCO2 (35-45) mmHg ABG HCO3 (21-25) mmol/L ABG Total CO2 (19-24) mmol/L Hemoglobin (11.4-16.0) gm/dL Chloride 96 L (98-107) mmol/L Carbon Dioxide 36 H (22-30) mmol/L BUN 34 H (7-17) mg/dL Glucose 127 H (74-99) mg/dL POC Glucose (mg/dL) 139 H (70-110) mg/dL Microbiology - Last 24 Hours (Table) 07/08/24 12:13 Blood Culture - Preliminary Blood Assessment and Plan Plan: Acute congestive heart failure exacerbation New 4.7 cm masslike consolidation opacity in the right midlung Fall at home, with generalized body pain Bilateral lower extremity cellulitis, with multiple open ulcers Underlying history of hypertension Underlying history of hyperlipidemia Underlying history of diabetes mellitus Underlying history of COPD Underlying history of morbid obesity At this time patient was admitted to telemetry floor Patient transferred to the ICU Remains on IV antibiotics Continue BiPAP Consultation for pulmonary, infectious disease, and cardiology initiated Will follow closely
[2024-07-12] MEDS: QUEtiapine 25 MG TAB PO PRN (09:41)
[2024-07-12 09:57] LABS: ABG HCO3 36 mmol/L (21-25); ABG Oxygen Saturation 85.3 % (94-97); ABG PCO2 65 mmHg (35-45); ABG PH 7.35 (7.35-7.45); ABG TCO2 37 mmol/L (19-24); Allen Test Performed? Yes
[2024-07-12 10:05] LABS: ABG PO2 52 mmHg (83-108)
[2024-07-12] MEDS: DOCUSATE 100 MG CAP PO SCH (10:12)
[2024-07-12] MEDS: FUROSEMIDE 10 MG/ML 4 ML VIAL IV SCH (10:22)
[2024-07-12 11:29] LABS: Glucose,Whole Blood 133 mg/dL (70-110)
--- NOTE | 2024-07-12 13:06 | P.CRDCN ---
History of Present Illness Consult date: 07/12/24 History of present illness: HISTORY OF PRESENT ILLNESS: This is a 73-year-old male with a past medical history significant for COPD, congestive heart failure, hypertension, and hyperlipidemia. 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 We have been asked to see the patient in consultation for congestive heart failure. Patient examined at the bedside. Patient presented to the hospital with a chief complaint of increased lower extremity swelling and shortness of breath. Patient was found to be in CHF and was started on IV Lasix. Patient currently denies any chest pain or pressure. Vital signs are stable. DIAGNOSTICS: - EKG reveals sinus mechanism with no signs of acute ischemia - Chest xray correlate for suspected CHF exacerbation. Additionally there is a 4.7 cm masslike consolidation in the right mid to lower lung. Underlying mass/malignancy is not excluded. - Laboratory data: WBC 11.22. Hemoglobin 11.3. Platelet count 185. Sodium 141. Potassium 4.3. BUN 17. Creatinine 0.9. - Current home cardiac medications include rosuvastatin 20 mg daily, enalapril 20 mg daily, and Lasix 40 mg in the morning and 20 mg in the afternoon. 07/06/2024 Patient examined this morning at the bedside. Patient apparently became hypotensive overnight with blood pressures in the 70s and 80s. Her Lasix was discontinued. However she was continued on lisinopril per primary medicine. Systolic blood pressure this morning is in the 90s. July 07, 2024 The patient was seen this morning she still have some change in mental status and she is somewhat lethargic and possibly dehydrated. She is getting a workup for possible sepsis. Hemodynamically she is stable now. The echo is as described above showed normal LV systolic function with mild aortic stenosis. The physical examination is remarkable for regular rhythm with a systolic murmur at the right and left upper sternal border with severe bilateral lower extremities chronic skin changes and chronic edema July 08, 2024 The patient was seen and evaluated this morning with apparently she was trans ferred from 6 N. to 3 S.. She still have change in mental status currently under workup. Hemodynamically she is stable. She still have bilateral lower extremities edema. I am going to give the patient only 1 dose of Lasix IV and continue monitor the kidney function and electrolytes. She is under an investigation for right upper lobe mass with possible need for PET scan. The mass was seen on the CT scan as well as chest x-ray. The physical examination is remarkable for change in mental status with regular rate and rhythm and mild sinus tachycardia and diminished breathing sounds bilaterally which is still hypoxic requiring BiPAP at 40% 07/09/2024 Patient has been on BiPAP, severely hypercapnic with retention of bicarb with metabolic encephalopathy Bicarb 44, BUN 29, creatinine 0.5, Hb 10.6 07/10/2024 Patient remains somnolent on BiPAP She is on IV antibiotics BP 123/69, heart rate 76, Echo from this admission shows an EF of 55%, moderate concentric LVH, moderate to severe pulmonary hypertension with RVSP of 54 mmHg, 07/11/2024 Patient examined this morning at the bedside. Patient remains confused. She is currently on BiPAP. BUN 28. Creatinine 0.68. 07/12/2024 Patient seen and examined at bedside this a.m. Patient was transferred to ICU because of confusion and delirium. For this patient received Precedex. Confusion delirium is most likely because of CO2 retention. PHYSICAL EXAM: VITAL SIGNS: Reviewed. GENERAL: Well-developed in no acute distress. HEENT: Head is normocephalic. Pupils are equal, round. Sclerae anicteric. Mucous membranes of the mouth are moist. Neck supple. No JVD or thyromegaly LUNGS: Respirations even and unlabored. Lungs essentially clear to auscultation bilaterally. HEART: Regular rate and rhythm. S1 and S2 heard. EXTREMITIES: Normal range of motion. No clubbing or cyanosis. Peripheral pulses intact. Bilateral lower extremity edema with evidence of cellulitis ASSESSMENT: Bilateral lower extremity cellulitis Acute on chronic heart failure with preserved EF Metabolic encephalopathy due to hypercapnia Acute on chronic hypoxic and hypercapnic respiratory failure Severe COPD Right lung mass, pulmonary following Hypertension, Hyperlipidemia Morbid obesity: BMI 46.1 PLAN: Continue IV Lasix 40 mg twice daily Aldactone 25 mg daily Consider Diamox for metabolic alkalosis and CO2 retention Supportive care in ICU Daily weights, accurate intake and output, and monitoring of kidney function Further recommendations pending patient course Prognosis is guarded Past Medical History Past Medical History: Heart Failure, COPD, Diabetes Mellitus, GERD/Reflux, Hyperlipidemia, Thyroid Disorder Additional Past Medical History / Comment(s): home O2 3-6L per pt. History of Any Multi-Drug Resistant Organisms: None Reported Past Surgical History: Cholecystectomy Additional Past Surgical History / Comment(s): foot Left plate and pins Past Anesthesia/Blood Transfusion Reactions: No Reported Reaction Past Psychological History: Anxiety Additional Psychological History / Comment(s): Anxiety Smoking Status: Former smoker Past Alcohol Use History: None Reported Additional Past Alcohol Use History / Comment(s): STARTED SMOKING AT AGE 16, SIG OTHER STATED SHE SMOKES 1.5 PPD Past Drug Use History: None Reported Additional Drug Use History / Comment(s): RARE USE OF MARIJUANA - Past Family History Mother Family Medical History: Hypertension Father Family Medical History: Cancer Medications and Allergies Home Medications Medication Instructions Recorded Confirmed Type Albuterol Inhaler [Ventolin Hfa 1 - 2 puff INHALATION RT-Q6H PRN 01/08/15 07/04/24 History Inhaler] Enalapril [Vasotec] 20 mg PO DAILY 07/04/24 07/04/24 History Ergocalciferol [Vitamin D2 (1250 1,250 mcg PO MO 07/04/24 07/04/24 History Mcg = 42721 Iu)] Furosemide [Lasix] 20 mg PO DAILY@1830 07/04/24 07/04/24 History Furosemide [Lasix] 40 mg PO QAM 07/04/24 07/04/24 History HYDROcodone/APAP 10-325MG [[place] 1 tab PO TID PRN 07/04/24 07/04/24 History 10-325] Insulin Glargine,Hum.rec.anlog 70 units SQ DAILY 07/04/24 07/04/24 History [Lantus Solostar Pen] Phentermine HCl [Adipex-P] 37.5 mg PO DAILY 07/04/24 07/04/24 History Rosuvastatin [Crestor] 20 mg PO DAILY 07/04/24 07/04/24 History traZODone HCL [Desyrel] 50 mg PO HS 07/04/24 07/04/24 History Allergies Allergy/AdvReac Type Severity Reaction Status Date / Time Penicillins Allergy Rash/Hives Verified 07/04/24 14:26 Physical Exam Vitals: Vital Signs Temp Pulse Resp BP Pulse Ox FiO2 07/12/24 12:00 40 07/12/24 11:00 68 18 111/62 97 40 07/12/24 10:30 22 40 07/12/24 10:00 81 23 113/69 90 L 04/03/25 09:00 84 17 113/69 94 L 07/12/24 08:41 95 07/12/24 08:00 99.6 F 86 16 125/67 98 07/12/24 07:00 81 24 100/65 93 L 07/12/24 06:00 77 12 102/67 94 L 07/12/24 05:00 74 23 99/64 94 L 07/12/24 04:06 40 07/12/24 04:00 98.9 F 80 29 H 98/60 94 L 07/12/24 03:00 81 12 98/66 94 L 07/12/24 02:00 91 11 L 105/67 94 L 07/12/24 01:00 100 12 112/56 07/12/24 00:07 98 14 100/52 93 L 07/12/24 00:06 40 07/12/24 00:00 98.3 F 98 44 H 112/56 94 L 07/11/24 23:00 102 H 24 82/59 95 07/11/24 22:00 98 14 94/57 84 L 07/11/24 21:00 90 21 87/54 95 07/11/24 20:00 97.8 F 97 12 119/66 96 07/11/24 19:00 21 109/69 93 L 07/11/24 18:00 88 11 L 112/78 97 07/11/24 17:50 17 91 L 07/11/24 17:40 93 12 94 L 07/11/24 17:30 90 14 92 L 07/11/24 17:20 87 12 93 L 07/11/24 17:10 92 13 95 07/11/24 17:00 90 12 110/66 94 L 07/11/24 16:50 25 H 94 L 07/11/24 16:40 82 14 94 L 07/11/24 16:30 81 10 L 95 07/11/24 16:20 71 93 L 07/11/24 16:10 76 13 93 L 07/11/24 16:00 99.7 F H 82 27 H 110/66 95 40 07/11/24 15:50 69 23 93 L 07/11/24 15:40 85 17 94 L 07/11/24 15:30 96 18 94 L 07/11/24 15:20 91 108/54 94 L 07/11/24 15:15 90 14 07/11/24 15:09 40 Intake and Output 07/11/24 07/12/24 07/12/24 22:59 06:59 14:59 Intake Total 170 336.258 541.812 Output Total 270 255 260 Balance -100 81.258 281.812 Intake: IV 70 260 10 Cefepime 2 gm In Sodium 200 Chloride 0.9% 100 ml @ 25 mls/hr IVPB Q8H [facility] Rx#: [id number] DAPTOmycin 800 mg In 60 60 Sodium Chloride 0.9% 50 ml @ 100 mls/hr IVPB Q24H [facility] Rx#:[id number] Invasive Line 5 10 10 Intake, IV Titration 100 76.258 11.812 Amount Cefepime 2 gm In Sodium 100 Chloride 0.9% 100 ml @ 25 mls/hr IVPB Q8H [facility] Rx#: [id number] Dexmedetomidine/0.9% NaCl 76.258 11.812 (Pmx) 400 mcg In Empty Bag 1 bag @ 0.2 MCG/KG/HR 5.25 mls/hr IV .Q19H3M [facility] Rx#:[id number] Oral 520 Output: Urine 270 255 260 Other: Voiding Method Indwelling Catheter Indwelling Catheter Indwelling Catheter # Bowel Movements 0 Weight 105 kg 106.9 kg Results 07/12/24 03:00 07/12/24 03:00 CBC 07/12/24 Range/Units 03:00 WBC 9.0 (3.8-10.6) k/uL RBC 3.77 L (3.80-5.40) m/uL Hgb 10.7 L (11.4-16.0) gm/dL Hct 37.6 (34.0-46.0) % Plt Count 176 (150-450) k/uL Comprehensive Metabolic Panel 07/12/24 Range/Units 03:00 Sodium 137 (137-145) mmol/L Potassium 4.1 (3.5-5.1) mmol/L Chloride 96 L (98-107) mmol/L Carbon Dioxide 36 H (22-30) mmol/L BUN 34 H (7-17) mg/dL Creatinine 0.67 (0.52-1.04) mg/dL Glucose 127 H (74-99) mg/dL Calcium 8.6 (8.4-10.2) mg/dL Current Medications Generic Name Dose Route Start Last Admin Trade Name Freq PRN Reason Stop Dose Admin Acetaminophen 650 mg 07/04/24 11:59 07/12/24 08:29 Acetaminophen Tab 325 Mg Tab PO 650 mg Q6HR PRN Administration Mild Pain or Fever > 100.5 Hydrocodone Bitart/Acetaminophen 1 each 07/04/24 11:59 07/11/24 13:17 Hydrocodone/Apap 5-325mg 1 Each Tab PO 1 each Q4HR PRN Administration Moderate Pain (Scale 4 to 6) Acetazolamide 250 mg 07/12/24 13:15 Acetazolamide 250 Mg Tab PO DAILY [facility] Albuterol Sulfate 2.5 mg 07/04/24 15:57 Albuterol Nebulized 2.5 Mg/3 Ml INHALATION RT-Q6H PRN Dyspnea Dextrose/Water 25 ml 07/11/24 10:18 Dextrose 50% Syringe 50 Ml IVP PER PROTOCOL PRN Hypoglycemia Protocol Dextrose/Water 50 ml 07/11/24 10:18 Dextrose 50% Syringe 50 Ml IVP PER PROTOCOL PRN Hypoglycemia Protocol Docusate Sodium 100 mg 07/12/24 09:00 07/12/24 10:12 Docusate 100 Mg Cap PO 100 mg DAILY [facility] Administration Ergocalciferol 1,250 mcg 07/09/24 09:00 07/09/24 08:05 Ergocalciferol 1,250 Mcg (50,000 Iu) Capsule PO 1,250 mcg MO [facility] Administration Furosemide 40 mg 07/12/24 10:00 07/12/24 10:22 Furosemide 10 Mg/Ml 4 Ml Vial IV 40 mg Q12HR [facility] Administration Haloperidol Lactate 2 mg 07/07/24 23:49 07/11/24 23:21 Haloperidol Lactate 5 Mg/Ml 1 Ml Vial IM 2 mg Q3HR PRN Administration Agitation or Acute Psychosis Daptomycin 800 mg/ Sodium 50 mls @ 100 mls/hr 07/06/24 19:00 07/11/24 18:30 Chloride IVPB 100 mls/hr Q24H [facility] Administration Cefepime HCl 2 gm/ Sodium 100 mls @ 25 mls/hr 07/08/24 14:00 07/12/24 05:50 Chloride IVPB 25 mls/hr Q8H [facility] Administration Protocol Dexmedetomidine HCl 400 mcg/ 100 mls @ 5.25 mls/hr 07/12/24 00:45 07/12/24 09:45 IV Solution IV 0 mcg/kg/hr .Q19H3M [facility] 0 mls/hr Titration Protocol 0.2 MCG/KG/HR Insulin Human Lispro 0 unit 07/11/24 12:30 07/12/24 11:31 Insulin Lispro (Humalog) 100 Unit/Ml 10 Ml Vl SQ Not Given ACHS [facility] Protocol Morphine Sulfate 4 mg 07/04/24 11:59 07/11/24 20:56 Morphine Sulfate 4 Mg/Ml Syringe IV 4 mg Q4HR PRN Administration Severe Pain (Scale 7 to 10) Naloxone HCl 0.2 mg 07/04/24 11:59 Naloxone 0.4 Mg/Ml 1 Ml Vial IV Q2M PRN Opioid Reversal Nystatin 1 applic 07/08/24 09:00 07/12/24 08:28 Nystatin 100,000 Unit/Gm Powd 15 Gm TOPICAL 1 applic BID [facility] Administration Protocol Quetiapine Fumarate 12.5 mg 07/12/24 09:19 07/12/24 09:43 Quetiapine 25 Mg Tab PO 12.5 mg TID PRN Administration Agitation or Acute Psychosis Quetiapine Fumarate 25 mg 07/12/24 21:00 Quetiapine 25 Mg Tab PO HS [facility] Spironolactone 25 mg 07/12/24 13:15 Spironolactone 25 Mg Tab PO DAILY [facility] Trazodone HCl 50 mg 07/04/24 21:00 07/11/24 20:27 Trazodone Hcl 50 Mg Tab PO 50 mg HS [facility] Administration Intake and Output 07/11/24 07/12/24 07/12/24 22:59 06:59 14:59 Intake Total 170 336.258 541.812 Output Total 270 255 260 Balance -100 81.258 281.812 Intake: IV 70 260 10 Cefepime 2 gm In Sodium 200 Chloride 0.9% 100 ml @ 25 mls/hr IVPB Q8H [facility] Rx#: [id number] DAPTOmycin 800 mg In 60 60 Sodium Chloride 0.9% 50 ml @ 100 mls/hr IVPB Q24H [facility] Rx#:[id number] Invasive Line 5 10 10 Intake, IV Titration 100 76.258 11.812 Amount Cefepime 2 gm In Sodium 100 Chloride 0.9% 100 ml @ 25 mls/hr IVPB Q8H [facility] Rx#: [id number] Dexmedetomidine/0.9% NaCl 76.258 11.812 (Pmx) 400 mcg In Empty Bag 1 bag @ 0.2 MCG/KG/HR 5.25 mls/hr IV .Q19H3M [facility] Rx#:[id number] Oral 520 Output: Urine 270 255 260 Other: Voiding Method Indwelling Catheter Indwelling Catheter Indwelling Catheter # Bowel Movements 0 Weight 105 kg 106.9 kg 07/12/24 03:00 07/12/24 03:00
[2024-07-12] MEDS: acetaZOLAMIDE 250 MG TAB PO SCH (14:30)
[2024-07-12] MEDS: SPIRONOLACTONE 25 MG TAB PO SCH (14:30)
--- NOTE | 2024-07-12 14:30 | P.PN ---
Subjective Progress Note Date: 07/12/24 Principal diagnosis: Reason for follow-up with lower extremity ulcer and cellulitis Patient is a 73-year-old female with a past medical history significant for COPD heart failure diabetes mellitus reflux hyperlipidemia presenting to the hospital for evaluation of a fall that happened the day of presentation to the hospital patient accidentally rolled off the couch onto the floor and was too weak to get herself up, noticed to have bilateral extremity ulcer and cellulitis prompted this consultation. On today's evaluation that is 07/12/2024,the patient remains to be afebrile, patient is on r BiPAP 40% supplemental oxygen patient remains to be lethargic unable to report any history hemodynamically stable not requiring any pressor support no diarrhea or any other changes reported by the nursing staff. Patient white count is 9.0, creatinine is 0.67 blood culture repeat has been negative Objective - Vital Signs Vital signs: Vital Signs Temp 99.6 F 07/12/24 08:00 Pulse 68 07/12/24 11:00 Resp 18 07/12/24 11:00 BP 111/62 07/12/24 11:00 Pulse Ox 97 07/12/24 11:00 FiO2 40 07/12/24 12:00 Intake & Output 07/11/24 07/12/24 07/12/24 18:59 06:59 18:59 Intake Total 120 496.258 541.812 Output Total 100 425 260 Balance 20 71.258 281.812 Weight 105 kg 106.9 kg Intake: IV 20 320 10 Cefepime 2 gm In Sodium 200 Chloride 0.9% 100 ml @ 25 mls/hr IVPB Q8H [facility] Rx#: [id number] DAPTOmycin 800 mg In 120 Sodium Chloride 0.9% 50 ml @ 100 mls/hr IVPB Q24H [facility] Rx#:[id number] Invasive Line 5 20 10 Intake, IV Titration 176.258 11.812 Amount Cefepime 2 gm In Sodium 100 Chloride 0.9% 100 ml @ 25 mls/hr IVPB Q8H [facility] Rx#: [id number] Dexmedetomidine/0.9% NaCl 76.258 11.812 (Pmx) 400 mcg In Empty Bag 1 bag @ 0.2 MCG/KG/HR 5.25 mls/hr IV .Q19H3M [facility] Rx#:[id number] Oral 100 520 Output: Urine 100 425 260 Other: Voiding Method Indwelling Catheter Indwelling Catheter Indwelling Catheter # Bowel Movements 0 - Exam GENERAL DESCRIPTION: An elderly female lying in bed in no distress RESPIRATORY SYSTEM: Unlabored breathing , decreased breath sounds at bases HEART: S1 S2 regular rate and rhythm , ABDOMEN: Soft , no tenderness EXTREMITIES: Bilateral lower extremity currently wrapped with an Blue wrap she did have wound on the right heel with necrotic base but no surrounding redness or drainage - Labs CBC & Chem 7: 07/12/24 03:00 07/12/24 03:00 Labs: Abnormal Lab Results - Last 24 Hours (Table) 07/11/24 07/11/24 07/12/24 Range/Units 13:49 19:34 03:00 RBC (3.80-5.40) m/uL Hgb (11.4-16.0) gm/dL MCHC (31.0-37.0) g/dL ABG pCO2 71 H* (35-45) mmHg ABG pO2 (83-108) mmHg ABG HCO3 40 H* (21-25) mmol/L ABG Total CO2 42 H (19-24) mmol/L ABG O2 Saturation (94-97) % Hemoglobin 11.2 L (11.4-16.0) gm/dL Chloride 96 L (98-107) mmol/L Carbon Dioxide 36 H (22-30) mmol/L BUN 34 H (7-17) mg/dL Glucose 127 H (74-99) mg/dL POC Glucose (mg/dL) 132 H (70-110) mg/dL 07/12/24 07/12/24 07/12/24 Range/Units 03:00 06:26 09:47 RBC 3.77 L (3.80-5.40) m/uL Hgb 10.7 L (11.4-16.0) gm/dL MCHC 28.5 L (31.0-37.0) g/dL ABG pCO2 65 H (35-45) mmHg ABG pO2 52 L* (83-108) mmHg ABG HCO3 36 H (21-25) mmol/L ABG Total CO2 37 H (19-24) mmol/L ABG O2 Saturation 85.3 L (94-97) % Hemoglobin 11.1 L (11.4-16.0) gm/dL Chloride (98-107) mmol/L Carbon Dioxide (22-30) mmol/L BUN (7-17) mg/dL Glucose (74-99) mg/dL POC Glucose (mg/dL) 139 H (70-110) mg/dL 07/12/24 Range/Units 11:27 RBC (3.80-5.40) m/uL Hgb (11.4-16.0) gm/dL MCHC (31.0-37.0) g/dL ABG pCO2 (35-45) mmHg ABG pO2 (83-108) mmHg ABG HCO3 (21-25) mmol/L ABG Total CO2 (19-24) mmol/L ABG O2 Saturation (94-97) % Hemoglobin (11.4-16.0) gm/dL Chloride (98-107) mmol/L Carbon Dioxide (22-30) mmol/L BUN (7-17) mg/dL Glucose (74-99) mg/dL POC Glucose (mg/dL) 133 H (70-110) mg/dL Microbiology - Last 24 Hours (Table) 07/08/24 12:13 Blood Culture - Preliminary Blood Assessment and Plan (1) Leg ulcer, left Current Visit: Yes Status: Acute Code(s): L97.929 - NON-PRS CHRONIC ULC UNSP PRT OF L LOW LEG W UNSP SEVERITY SNOMED Code(s): 86283564 (2) Left leg cellulitis Current Visit: Yes Status: Acute Code(s): L03.116 - CELLULITIS OF LEFT LOWER LIMB SNOMED Code(s): 40272637012703759 (3) Penicillin allergy Current Visit: Yes Status: Acute Code(s): Z88.0 - ALLERGY STATUS TO PENICILLIN SNOMED Code(s): 64696781 (4) Bacteremia Current Visit: Yes Status: Acute Code(s): R78.81 - BACTEREMIA SNOMED Code(s): 3620577 Plan: 1patient with diffuse swelling of bilateral lower extremity with superficial solution to the left leg likely venous stasis ulcer with secondary cellulitis likely from gram-positive skin neida. 2patient with a penicillin allergy that will limit the number of antibiotics safe to use. 3local wound care to the left leg with dry Aquacel dressing and Blue wrap to keep the swelling down, and apply Santyl to the wound to the right heel change daily. 4patient did have resolution of the fever and white count is normal blood culture repeat so far negative, 5patient is currently being treated with daptomycin and cefepime once improvement in her mentation will need further workup for etiology of this bacteremia Dictation was produced using [employer] software. please excuse any grammatical, word or spelling errors.
[2024-07-12 16:06] LABS: Glucose,Whole Blood 121 mg/dL (70-110)
--- NOTE | 2024-07-12 19:42 | P.PN ---
Subjective Progress Note Date: 07/12/24 This is a 73-year-old obese white female today seen in room 620. She came to the hospital with 1 day of shortness of breath, leg swelling, and cough. Her viral screen was negative. The patient has smoked for about 40 to 45 years. The only medicine she takes at home for her breathing is albuterol. Her procalcitonin level was 0.05. Chest x-ray showed some fluid overload, but also showed a possible mass in the right midlung, which could be either an actual mass or pseudotumor. A CT scan was ordered. It does show a 7.1 lobulated mass in the right lung. A PET scan was recommended. Currently, the patient is on 4 L of oxygen. No fluids are ordered. She is getting Lasix 40 mg every 8 hours. She also has an updraft ordered. White count 1.22, hemoglobin 11.3, macro 39.1, platelet count 185,000. Coags are normal. Sodium 141, potassium 4.3, chlorides 94, CO2 39, BUN 17.5, creatinine 0.9. Glucose 169. Calcium 8.6. Troponin was negative. N-terminal proBNP was elevated at 1830. Procalcitonin level was 0.05. Urine is negative. Viral screen was negative. Chest x-ray was consistent with fluid overload/CHF. Cardiology has seen the patient. The patient is seen today July 06, 2024 in follow-up on the regular medical floor. She is currently sitting up in bed. Awake and alert in no acute distress. She is maintaining O2 saturations in the 90s on 4 L/min per nasal cannula. She is receiving normal saline at 75 mL/h. White count 10.2. Hemoglobin 11.5. Platelets 198. Sodium 134. Potassium 4.5. Bicarb 38. BUN 29. Creatinine 0.83. Glucose 132. She remains on cefazolin. IV diuretics were discontinued. The patient is seen today July 07, 2024 in follow-up on the regular medical floor. She is currently resting comfortably in bed. Awake and alert in no acute distress. Maintaining good O2 saturations in the 90s on 5 L/min per nasal cannula. She is receiving normal saline at 50 mL/h. Her blood culture isshowing Enterococcus faecium. She is currently on daptomycin. Remains on bronchodilators. 1.2. Platelets 204. Sodium 144. Potassium 5.2. Bicarb 39. BUN 24. Creatinine 0.6. Glucose 153. Progress note dated July 08, 2024. The patient was moved down to the third floor, sometime yesterday or last night, for respiratory distress. I was never notified. The patient was seen today in room 360. She was on BiPAP, with settings of 12/5, and 40%. She was getting saline at 20 cc an hour. A blood gas was done on 44% oxygen showing a pO2 of 84, pCO2 of 91, pH is 7.29. Her blood cultures were positive for Enterococcus faecium. For that reason, she is on daptomycin. Current labs include a white count 7.8, hemoglobin 11.2, hematocrit 38.3, and a platelet count of 173,000. Sodium 139, potassium 4.5, chlorides 93, CO2 40, BUN 29, and creatinine 0.58. Glucose 74. Albumin is 3. Chest x-ray done yesterday, continues to show me in addition, there is diffuse changes, consistent with fluid overload and/or pneumonia. On 07/09/2024, the patient is being seen for a follow-up. Morbidly obese female patient was hospitalized for an acute on top of chronic hypoxic and hypercapnic respiratory failure. At the time of my evaluation this morning, the patient was started on a BiPAP at a pressure of 12/5 with an FiO2 of 40%. I took the patient off the BiPAP and put her on 4 L of oxygen by nasal cannula. Subsequent blood gases showed a pH of 7.34 with pCO2 of 86 and pO2 162. The patient has a mass like consolidation involving the right lower lobe. This could be pneumonia versus malignancy. At the same time, the patient is septic and the source of sepsis is a wound infection and the patient has active wet wound with purulent foul-smelling material covering the wound base and the right lower extremity above the lateral malleolus. Blood culture was positive for Enterococcus faecalis and based on that, the patient has been maintained on a combination of daptomycin and the patient is also on IV cefepime. Repeat chest x-ray was done and it showed a right lower lobe masslike opacity that remains unchanged compared to the previous x-rays in addition to mild cardiomegaly and pulm vessel congestion. The patient is sitting daily diuresis. The patient is producing excellent urine output and the fluid balance is -2.6 L over the past 24 hours. The white cell count is 7.1 with a heme of 10.6 and a platelet count of 151. Serum bicarb is 44 with BUN of 29 and a creatinine of 0.5. Sodium is at 140. She remains encephalopathic. She is arousable. She has tolerated the BiPAP reasonably well. On 07/10/2024, the patient is being seen for a follow-up. The patient remains on BiPAP and she seems to be tolerating the BiPAP reasonably well. This morning, the patient is on a BiPAP at a pressure of 12 over 5 cm of water with an FiO2 of 40% which is essentially the same setting as yesterday. She is arousable and she is able to communicate. At times confused. I took this patient off the BiPAP and put her on oxygen at 5 L/min nasal cannula. Subsequent blood gases showed a pH of 7.33 with a pCO2 of 78 and pO2 of 129. She is still lethargic and weak. Denies having any chest pain. She does have swelling in lower extremities bilaterally. She was given IV Lasix yesterday and her fluid balance is -3.1 L over the past 24 hours. She remains on Bumex 1 mg p.o. daily. She is also on Diamox 5 mg IV every 12 hours. The blood work from today shows a BUN of 24 with a creatinine of 0.7. Serum bicarb is at 36 and a sodium levels at 140. The white cell count is 7.9 with a hemoglobin of 11.4 and a platelet count of 164. The follow-up chest x-ray from yesterday was still showing a masslike consolidation/opacity in the right midlung/right lower lobe area. The patient also has some ongoing mild cardiomegaly. Wound care is being applied. ID is on the case. The patient remains on daptomycin and IV cefepime. On 07/11/2024, the patient is being seen for a follow-up. Remains quite lethargic and continues to have diminished level of consciousness. She remains on a BiPAP at her same setting of 12 over 5 cm of water. Repeat blood gas was done with an FiO2 40% showed a pH of 7.36 with a pCO2 of 71 and pO2 of 83. The patient is however arousable. She continues to be treated for a extensive right lower extremity wound infection with septicemia the patient had Enterococcus faecium and she remains essentially same antibiotic coverage including combination of cefepime and daptomycin. On today's blood work, the white cell count is 7.4 with a hemoglobin 10.9 and a platelet count of 174. The sodium level is at 139, BUN is 28 with a creatinine of 0.6. Potassium is at 4 and a serum bicarb is at 39. She is on Diamox 500 mg IV every 12 hours. She is on Bumex 1 mg p.o. daily. Rest of the medications are essentially unchanged. No significant agitation. 07/12/2024, the patient is being seen for a follow-up. On today's evaluation, the patient is arousable and she is able to communicate. She does have some background encephalopathy and confusion. She is complaining of pain involving lower extremities the patient has extensive wounds in lower extremities bilaterally involving the lateral aspect of the lower extremities bilaterally above the ankle. The area was inspected today and the wound base is e rythematous and less purulence. No foul drainage at this point in time. The patient was taken off the BiPAP this morning. The patient was placed on oxygen and she is currently at 60s over the nasal cannula. Repeat blood gas was done and the patient showed a pH of 7.35 with a pCO2 of 65 and pO2 of 52 and this was on FiO2 of 36%. The follow-up chest x-ray from today shows a masslike consolidation in the right lung which seems to be less dense and more hazy. There is also cardiomegaly and pulm vascular congestion with mild pulm vascular congestion. The white cell count is at 9, hemoglobin is 10.7 and a platelet count of 176. BUN is 34 with a creatinine of 0.6 and a sodium level is at 137. The patient is receiving Diamox to 50 mg p.o. daily. The patient remains on Lasix 40 mg IV push every 12 hours. The fluid balance is -1.7 L over the past 24 hours. The patient remains on broad-spectrum antibiotics. The patient is currently on cefepime and daptomycin. Rest of the medications remain unchanged. She remains on Aldactone 25 mg p.o. daily and trazodone at bedtime 50 mg nightly. Objective - Vital Signs Vital signs: Vital Signs Temp 99.2 F 07/12/24 16:00 Pulse 98 07/12/24 19:00 Resp 21 07/12/24 19:00 BP 121/79 07/12/24 19:00 Pulse Ox 98 07/12/24 19:00 FiO2 40 07/12/24 13:00 Intake & Output 07/12/24 07/12/24 07/13/24 06:59 18:59 06:59 Intake Total 193.946 9843.812 50 Output Total 425 880 75 Balance 71.258 821.812 -25 Weight 106.9 kg 106.9 kg Intake: IV 320 130 50 Cefepime 2 gm In Sodium 200 100 Chloride 0.9% 100 ml @ 25 mls/hr IVPB Q8H [facility] Rx#: [id number] DAPTOmycin 800 mg In 120 50 Sodium Chloride 0.9% 50 ml @ 100 mls/hr IVPB Q24H [facility] Rx#:[id number] Invasive Line 5 10 Invasive Line 7 20 Intake, IV Titration 176.258 11.812 Amount Cefepime 2 gm In Sodium 100 Chloride 0.9% 100 ml @ 25 mls/hr IVPB Q8H [facility] Rx#: [id number] Dexmedetomidine/0.9% NaCl 76.258 11.812 (Pmx) 400 mcg In Empty Bag 1 bag @ 0.2 MCG/KG/HR 5.25 mls/hr IV .Q19H3M [facility] Rx#:[id number] Oral 1560 Output: Urine 425 880 75 Other: Voiding Method Indwelling Catheter Indwelling Catheter # Bowel Movements 0 0 - Exam GENERAL EXAM: Alert, pleasant 73-year-old female, resting in bed, o lethargic and sleepy, currently on 6 L of oxygen by nasal cannula. On and off, the patient is still utilizing the BiPAP. HEAD: Normocephalic. EYES: Normal reaction of pupils, equal size. NOSE: Clear with pink turbinates. THROAT: No erythema or exudates. NECK: No masses, no JVD. CHEST: No chest wall deformity. LUNGS: Equal air entry with no crackles, wheeze, rhonchi or dullness. CVS: S1 and S2 normal with no audible murmur, regular rhythm. ABDOMEN: No hepatosplenomegaly, normal bowel sounds, no guarding or rigidity. SPINE: No scoliosis or deformity SKIN: No rashes. Chronic venous stasis of the lower extremities. Purulent bilateral lower extremity ulcer with purulent material covering the base of the ulcer on the right lower extremity and stage IV heel ulcer in the right foot. CENTRAL NERVOUS SYSTEM: No focal deficits, tone is normal in all 4 extremities. Lethargic, encephalopathic and weak EXTREMITIES: Changes of chronic venous stasis. There is no peripheral edema. No clubbing, no cyanosis. Peripheral pulses are intact. - Labs CBC & Chem 7: 07/12/24 03:00 07/12/24 03:00 Labs: Abnormal Lab Results - Last 24 Hours (Table) 07/12/24 07/12/24 07/12/24 Range/Units 03:00 03:00 06:26 RBC 3.77 L (3.80-5.40) m/uL Hgb 10.7 L (11.4-16.0) gm/dL MCHC 28.5 L (31.0-37.0) g/dL ABG pCO2 (35-45) mmHg ABG pO2 (83-108) mmHg ABG HCO3 (21-25) mmol/L ABG Total CO2 (19-24) mmol/L ABG O2 Saturation (94-97) % Hemoglobin (11.4-16.0) gm/dL Chloride 96 L (98-107) mmol/L Carbon Dioxide 36 H (22-30) mmol/L BUN 34 H (7-17) mg/dL Glucose 127 H (74-99) mg/dL POC Glucose (mg/dL) 139 H (70-110) mg/dL 07/12/24 07/12/24 07/12/24 Range/Units 09:47 11:27 16:04 RBC (3.80-5.40) m/uL Hgb (11.4-16.0) gm/dL MCHC (31.0-37.0) g/dL ABG pCO2 65 H (35-45) mmHg ABG pO2 52 L* (83-108) mmHg ABG HCO3 36 H (21-25) mmol/L ABG Total CO2 37 H (19-24) mmol/L ABG O2 Saturation 85.3 L (94-97) % Hemoglobin 11.1 L (11.4-16.0) gm/dL Chloride (98-107) mmol/L Carbon Dioxide (22-30) mmol/L BUN (7-17) mg/dL Glucose (74-99) mg/dL POC Glucose (mg/dL) 133 H 121 H (70-110) mg/dL Microbiology - Last 24 Hours (Table) 07/07/24 10:13 Blood Culture - Final Blood 07/08/24 12:13 Blood Culture - Preliminary Blood Assessment and Plan Plan: Acute on chronic hypoxemic/hypercapnic respiratory failure with significant respiratory acidosis based on the blood gas was done on 07/07/2024. Respiratory failure, multifactorial, the patient is morbidly obese. She may have, a component of COPD/CHF. In addition, the patient has a masslike opacity in the right lower lobe, rule out a consolidating mass/malignancy/pneumonia. Echocardiogram showed a preserved LV function. Nevertheless, the patient has moderate severe pulm hypertension with mild aortic stenosis. The patient is currently off BiPAP on 6 L of oxygen by nasal cannula. Chest x-ray continues to show a masslike consolidation in the right midlung. The follow-up blood gases from today shows improvement in the acid-base status although there is still a component of acute on chronic respiratory acidosis. Oxygenation continues to be impaired and the patient remains on 6 L of O2 nasal cannula. Sepsis secondary to enterococcal septicemia and the blood cultures were negative. The patient is currently on a combination of cefepime and daptomycin. Altered mentation/encephalopathy secondary to above, and the patient has a component of CO2 narcosis. 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 Blood cultures positive for Enterococcus faecium. Source is right lower extremity cellulitis/wound Bilateral lower extremity infected wound. The wound is wet and there is purulent discharge ongoing. The patient also has a stage IV heel ulcer. Diabetes mellitus. Gastroesophageal reflux disease. Hyperlipidemia. Hypothyroidism. Morbid obesity Plan: Patient is arousable and communicating. Remains encephalopathic and there is underlying ongoing confusion. Blood gases showed improvement in acid-base status Continue BiPAP therapy at the same setting of 12/5 cm of water on and off during the day to be alternated by oxygen 6 L/min nasal cannula Repeat blood gas in the morning was noted Repeat chest x-ray in the morning was noted Continue IV Lasix Continue Aldactone Continue Diamox Blood cultures positive for Enterococcus faecium and the patient is currently on a combination of cefepime and daptomycin. ID is on the case. Keep IV fluids at KVO Continue IV cefepime and daptomycin Continue wound care to the lower extremities and the patient has a Opticell silver in addition to wrapping Monitor respiratory status Patient currently off Precedex The patient has a full CODE STATUS. Will transfer the patient to the ICU for closer monitoring. This evaluation was done and 31 minutes. Time with Patient: Greater than 30
[2024-07-12 20:05] LABS: Glucose,Whole Blood 121 mg/dL (70-110)
[2024-07-12] MEDS: QUEtiapine 25 MG TAB PO SCH (20:10)
[2024-07-13 03:47] LABS: HCT 38.9 % (34.0-46.0); Hypochromasia Marked; MCH 27.9 pg (25.0-35.0); MCHC 28.4 g/dL (31.0-37.0); MCV 98.4 fL (80.0-100.0); Mean Platelet Volume 8.8; Platelet Count 172 k/uL (150-450); RBC 3.95 m/uL (3.80-5.40); RDW 14.6 % (11.5-15.5); WBC 8.5 k/uL (3.8-10.6)
[2024-07-13 04:20] LABS: African American GFR (CKD) >90 (>60 ml/min/1.73 sqM); Anion Gap 9 mmol/L; Blood Urea Nitrogen 33 mg/dL (7-17); Calcium 8.5 mg/dL (8.4-10.2); Carbon Dioxide 32 mmol/L (22-30); Chloride 94 mmol/L (98-107); Glucose 132 mg/dL (74-99); Non-African American GFR(CKD) 89 (>60 ml/min/1.73 sqM); Potassium 3.9 mmol/L (3.5-5.1); Sodium 135 mmol/L (137-145)
[2024-07-13 05:37] LABS: Glucose,Whole Blood 120 mg/dL (70-110)
[2024-07-13] MEDS ORDERED: Potassium Replacement Protocol 1 EACH MISC MISCELLANE PRN (05:43)
[2024-07-13] MEDS: POTASSIUM CHLORIDE ER 20 MEQ TAB.ER PO SCH (06:14)
--- NOTE | 2024-07-13 07:01 | XR ---
EXAMINATION TYPE: XR chest 1V portable DATE OF EXAM: 07/13/2024 CLINICAL INDICATION: Female, 73 years old with history of chf, copd, progress study. TECHNIQUE: Single AP portable semiupright view of the chest is obtained. COMPARISON: Chest x-ray from one day earlier and older studies. FINDINGS: Persistent cardiomegaly with atherosclerotic thoracic aorta. Persistent bibasilar opacitie s and right mid lung increased opacity. Osseous structures are intact. IMPRESSION: Findings consistent with continued CHF exacerbation. There is cardiomegaly with small rey ateral pleural effusions. Underlying right mid lung mass worrisome for neoplasm remains present. [facility], , 07/13/2024 6:59 AM
--- NOTE | 2024-07-13 09:27 | P.PN ---
Subjective Progress Note Date: 07/13/24 Ajay Robertson, is a 73-year-old female who presented to [facility] emergency room with a chief complaint of worsening shortness of breath, additionally patient was found on the floor in her house, she stated that she fell while asleep and was not able to stand up. She was evaluated in the emergency room vital examination on presentation revealed a temperature of 98.3 pulse 89 respiration 20 blood pressure 115/73 pulse ox 95% on 5 L nasal cannula Laboratory data revealed a white blood count of 11.4 hemoglobin 12.7 platelet count 190 BUN 20 creatinine 0.64 influenza A and B RSV and COVID-19 PCR were all negative Testing in the emergency room revealed chest x-ray revealed pulmonary congestion suggestive of congestive heart failure exacerbation and a new 4.7 masslike consolidation in the right mid to lower lung Patient was admitted to medical floor for further evaluation and treatment Past medical history is significant for history of hypertension, history of hyperlipidemia, history of hypothyroidism, history of diabetes mellitus, history of COPD, history of congestive heart failure, history of morbid obesity, history of recurrent episodes of bilateral lower extremity cellulitis. On review of systems patient is alert and oriented x 3 in no apparent distress, she is complaining of generalized body ache, she is complaining of shortness of breath, otherwise she denies any complaints there is no fever or chills no headache or dizziness no chest pain, she has occasional cough no nausea or vomiting no abdominal pain no diarrhea and no urinary symptoms. On 07/05/2024 patient is alert and oriented x 3. Awaiting consulting providers input. Patient remains on IV Lasix. CT of the chest has been completed. At this time patient denies chest pain. Patient denies nausea vomiting or diarrhea. Patient denies any urinary burning or frequency On 07/06/2024 patient is alert and oriented x 3. Patient remains on IV Lasix and IV antibiotics. Cardiology pulmonary and infectious disease services are following. Current vital signs temp 98.1, heart rate 67, respiratory rate 15, blood pressure 96/53 with a pulse ox of 93% on 4 L. Patient denies chest pain or shortness of breath. Patient denies nausea vomiting or diarrhea. Patient denies any urinary burning or frequency. On 07/07/2024 patient was seen and examined on the telemetry floor she is somnolent arousable in no apparent distress, yesterday patient was agitated and aggressive with medical staff, Seroquel was added to her medication regimen, however today she is more somnolent, Seroquel will be changed to as needed only. There is no fever or chills no headache or dizziness no chest pain patient still has shortness of breath with any activity and cough no nausea or vomiting no abdominal pain no diarrhea no urinary symptoms. On 07/08/2024 patient was seen and examined on the telemetry floor, she is so mnolent responsive in no apparent distress, currently she is maintained on BiPAP, she had episodes of agitation through the night, she was pulling off her IV in the BiPAP, she received 1 dose of IM Haldol, she is maintained on soft restraints at this time, her vital examination reveals a temperature of 99.8 pulse 109 respiration 22 pulse ox 95% on BiPAP FiO2 40% she is maintained on IV daptomycin infectious disease are following On 07/09/2024 patient was seen and examined on the telemetry floor, she is somnolent responsive in no apparent distress, she is still having episodes of agitation requiring as needed Seroquel use, otherwise she is improving gradually, there is no fever or chills no headache or dizziness no chest pain, she has shortness of breath with any activity, no nausea or vomiting no abdominal pain no diarrhea and no urinary symptoms, she remains on IV antibiotics, infectious disease are following, also cardiology and pulmonary are following On 07/10/2024 patient remains somnolent on BiPAP. Pulmonary and infectious disease services following. Patient remains on IV antibiotics. Patient remains on IV Diamox. Current vital signs temp 99.8, heart rate 78, respiratory rate 18, blood pressure 123/69 with a pulse ox of 96% on BiPAP with an FiO2 of 40. On 07/11/2024 patient was seen and examined on the medical floor, she is alert responsive in no apparent distress, she was maintained on BiPAP through the night, there is no fever or chills no headache or dizziness no chest pain no shortness of breath at rest, she has occasional cough and severe shortness of breath with any activity no nausea or vomiting no abdominal pain no diarrhea no urinary symptoms. On 07/12/2024 patient is alert but remains confused. Patient remains in the ICU. Patient was on BiPAP for 6 hours. Patient did require Precedex for increased agitation. Patient remains on IV cefepime and Diamox. Along with scheduled Bumex. Colace added for constipation. Patient denies chest pain. Patient denies nausea vomiting or diarrhea. Patient denies any urinary burning frequency On 07/13/2024 patient is more alert today. Per nursing staff plans for HANNA due to bacteremia. Current vital signs temp 99.0, heart rate 92, respiratory rate 25, blood pressure 125/69 with a pulse ox of 97% on 6 L. Patient denies chest pain. Patient denies nausea vomiting or diarrhea. Patient denies any urinary burning or frequency. Patient remains on Diamox and IV Maxipime Objective - Vital Signs Vital signs: Vital Signs Temp 99.0 F 07/13/24 08:00 Pulse 92 07/13/24 09:00 Resp 25 H 07/13/24 09:00 BP 127/69 07/13/24 09:00 Pulse Ox 98 07/13/24 09:11 FiO2 94 07/13/24 09:16 Intake & Output 07/12/24 07/13/24 07/13/24 18:59 06:59 18:59 Intake Total 1701.812 150 Output Total 880 680 45 Balance 821.812 -530 -45 Weight 106.9 kg 105.3 kg Intake: IV 130 150 Cefepime 2 gm In Sodium 100 100 Chloride 0.9% 100 ml @ 25 mls/hr IVPB Q8H [facility] Rx#: [id number] DAPTOmycin 800 mg In 50 Sodium Chloride 0.9% 50 ml @ 100 mls/hr IVPB Q24H [facility] Rx#:[id number] Invasive Line 5 10 Invasive Line 7 20 Intake, IV Titration 11.812 Amount Dexmedetomidine/0.9% NaCl 11.812 (Pmx) 400 mcg In Empty Bag 1 bag @ 0.2 MCG/KG/HR 5.25 mls/hr IV .Q19H3M [facility] Rx#:[id number] Oral 1560 Output: Urine 880 680 45 Other: Voiding Method Indwelling Catheter Indwelling Catheter # Bowel Movements 0 0 - Exam In general patient is alert and oriented x 3 in no distress HEENT head normocephalic and atraumatic Neck is supple no JVD no goiter no lymphadenopathy no carotid bruit Chest examination reveals a scattered crackles bilaterally no wheezing Cardiac exam reveals regular heart sounds S1 and S2 no gallops no murmurs Abdomen is soft nontender no organomegaly with normal bowel sounds Extremity exam reveals 3+ edema with erythema and chronic stasis changes, multiple small ulceration with scabbing no cyanosis or clubbing Neurological examination reveals no gross focal deficits - Labs CBC & Chem 7: 07/13/24 03:11 07/13/24 03:11 Labs: Abnormal Lab Results - Last 24 Hours (Table) 07/12/24 07/12/24 07/12/24 Range/Units 09:47 11:27 16:04 Hgb (11.4-16.0) gm/dL MCHC (31.0-37.0) g/dL ABG pCO2 65 H (35-45) mmHg ABG pO2 52 L* (83-108) mmHg ABG HCO3 36 H (21-25) mmol/L ABG Total CO2 37 H (19-24) mmol/L ABG O2 Saturation 85.3 L (94-97) % Hemoglobin 11.1 L (11.4-16.0) gm/dL Sodium (137-145) mmol/L Chloride (98-107) mmol/L Carbon Dioxide (22-30) mmol/L BUN (7-17) mg/dL Glucose (74-99) mg/dL POC Glucose (mg/dL) 133 H 121 H (70-110) mg/dL 07/12/24 07/13/24 07/13/24 Range/Units 20:04 03:11 03:11 Hgb 11.0 L (11.4-16.0) gm/dL MCHC 28.4 L (31.0-37.0) g/dL ABG pCO2 (35-45) mmHg ABG pO2 (83-108) mmHg ABG HCO3 (21-25) mmol/L ABG Total CO2 (19-24) mmol/L ABG O2 Saturation (94-97) % Hemoglobin (11.4-16.0) gm/dL Sodium 135 L (137-145) mmol/L Chloride 94 L (98-107) mmol/L Carbon Dioxide 32 H (22-30) mmol/L BUN 33 H (7-17) mg/dL Glucose 132 H (74-99) mg/dL POC Glucose (mg/dL) 121 H (70-110) mg/dL 07/13/24 Range/Units 05:36 Hgb (11.4-16.0) gm/dL MCHC (31.0-37.0) g/dL ABG pCO2 (35-45) mmHg ABG pO2 (83-108) mmHg ABG HCO3 (21-25) mmol/L ABG Total CO2 (19-24) mmol/L ABG O2 Saturation (94-97) % Hemoglobin (11.4-16.0) gm/dL Sodium (137-145) mmol/L Chloride (98-107) mmol/L Carbon Dioxide (22-30) mmol/L BUN (7-17) mg/dL Glucose (74-99) mg/dL POC Glucose (mg/dL) 120 H (70-110) mg/dL Microbiology - Last 24 Hours (Table) 07/07/24 10:13 Blood Culture - Final Blood Assessment and Plan Plan: Acute congestive heart failure exacerbation Bacteremia New 4.7 cm masslike consolidation opacity in the right midlung Fall at home, with generalized body pain Bilateral lower extremity cellulitis, with multiple open ulcers Underlying history of hypertension Underlying history of hyperlipidemia Underlying history of diabetes mellitus Underlying history of COPD Underlying history of morbid obesity At this time patient was admitted to telemetry floor Patient transferred to the ICU Remains on IV antibiotics Continue BiPAP Consultation for pulmonary, infectious disease, and cardiology initiated Will follow closely
[2024-07-13 10:46] LABS: Glucose,Whole Blood 185 mg/dL (70-110)
[2024-07-13 12:18] LABS: Glucose,Whole Blood 142 mg/dL (70-110)
--- NOTE | 2024-07-13 14:05 | P.PN ---
Subjective Progress Note Date: 07/13/24 This is a 73-year-old obese white female today seen in room 620. She came to the hospital with 1 day of shortness of breath, leg swelling, and cough. Her viral screen was negative. The patient has smoked for about 40 to 45 years. The only medicine she takes at home for her breathing is albuterol. Her procalcitonin level was 0.05. Chest x-ray showed some fluid overload, but also showed a possible mass in the right midlung, which could be either an actual mass or pseudotumor. A CT scan was ordered. It does show a 7.1 lobulated mass in the right lung. A PET scan was recommended. Currently, the patient is on 4 L of oxygen. No fluids are ordered. She is getting Lasix 40 mg every 8 hours. She also has an updraft ordered. White count 1.22, hemoglobin 11.3, macro 39.1, platelet count 185,000. Coags are normal. Sodium 141, potassium 4.3, chlorides 94, CO2 39, BUN 17.5, creatinine 0.9. Glucose 169. Calcium 8.6. Troponin was negative. N-terminal proBNP was elevated at 1830. Procalcitonin level was 0.05. Urine is negative. Viral screen was negative. Chest x-ray was consistent with fluid overload/CHF. Cardiology has seen the patient. The patient is seen today July 06, 2024 in follow-up on the regular medical floor. She is currently sitting up in bed. Awake and alert in no acute distress. She is maintaining O2 saturations in the 90s on 4 L/min per nasal cannula. She is receiving normal saline at 75 mL/h. White count 10.2. Hemoglobin 11.5. Platelets 198. Sodium 134. Potassium 4.5. Bicarb 38. BUN 29. Creatinine 0.83. Glucose 132. She remains on cefazolin. IV diuretics were discontinued. The patient is seen today July 07, 2024 in follow-up on the regular medical floor. She is currently resting comfortably in bed. Awake and alert in no acute distress. Maintaining good O2 saturations in the 90s on 5 L/min per nasal cannula. She is receiving normal saline at 50 mL/h. Her blood culture isshowing Enterococcus faecium. She is currently on daptomycin. Remains on bronchodilators. 1.2. Platelets 204. Sodium 144. Potassium 5.2. Bicarb 39. BUN 24. Creatinine 0.6. Glucose 153. Progress note dated July 08, 2024. The patient was moved down to the third floor, sometime yesterday or last night, for respiratory distress. I was never notified. The patient was seen today in room 360. She was on BiPAP, with settings of 12/5, and 40%. She was getting saline at 20 cc an hour. A blood gas was done on 44% oxygen showing a pO2 of 84, pCO2 of 91, pH is 7.29. Her blood cultures were positive for Enterococcus faecium. For that reason, she is on daptomycin. Current labs include a white count 7.8, hemoglobin 11.2, hematocrit 38.3, and a platelet count of 173,000. Sodium 139, potassium 4.5, chlorides 93, CO2 40, BUN 29, and creatinine 0.58. Glucose 74. Albumin is 3. Chest x-ray done yesterday, continues to show me in addition, there is diffuse changes, consistent with fluid overload and/or pneumonia. On 07/09/2024, the patient is being seen for a follow-up. Morbidly obese female patient was hospitalized for an acute on top of chronic hypoxic and hypercapnic respiratory failure. At the time of my evaluation this morning, the patient was started on a BiPAP at a pressure of 12/5 with an FiO2 of 40%. I took the patient off the BiPAP and put her on 4 L of oxygen by nasal cannula. Subsequent blood gases showed a pH of 7.34 with pCO2 of 86 and pO2 162. The patient has a mass like consolidation involving the right lower lobe. This could be pneumonia versus malignancy. At the same time, the patient is septic and the source of sepsis is a wound infection and the patient has active wet wound with purulent foul-smelling material covering the wound base and the right lower extremity above the lateral malleolus. Blood culture was positive for Enterococcus faecalis and based on that, the patient has been maintained on a combination of daptomycin and the patient is also on IV cefepime. Repeat chest x-ray was done and it showed a right lower lobe masslike opacity that remains unchanged compared to the previous x-rays in addition to mild cardiomegaly and pulm vessel congestion. The patient is sitting daily diuresis. The patient is producing excellent urine output and the fluid balance is -2.6 L over the past 24 hours. The white cell count is 7.1 with a heme of 10.6 and a platelet count of 151. Serum bicarb is 44 with BUN of 29 and a creatinine of 0.5. Sodium is at 140. She remains encephalopathic. She is arousable. She has tolerated the BiPAP reasonably well. On 07/10/2024, the patient is being seen for a follow-up. The patient remains on BiPAP and she seems to be tolerating the BiPAP reasonably well. This morning, the patient is on a BiPAP at a pressure of 12 over 5 cm of water with an FiO2 of 40% which is essentially the same setting as yesterday. She is arousable and she is able to communicate. At times confused. I took this patient off the BiPAP and put her on oxygen at 5 L/min nasal cannula. Subsequent blood gases showed a pH of 7.33 with a pCO2 of 78 and pO2 of 129. She is still lethargic and weak. Denies having any chest pain. She does have swelling in lower extremities bilaterally. She was given IV Lasix yesterday and her fluid balance is -3.1 L over the past 24 hours. She remains on Bumex 1 mg p.o. daily. She is also on Diamox 5 mg IV every 12 hours. The blood work from today shows a BUN of 24 with a creatinine of 0.7. Serum bicarb is at 36 and a sodium levels at 140. The white cell count is 7.9 with a hemoglobin of 11.4 and a platelet count of 164. The follow-up chest x-ray from yesterday was still showing a masslike consolidation/opacity in the right midlung/right lower lobe area. The patient also has some ongoing mild cardiomegaly. Wound care is being applied. ID is on the case. The patient remains on daptomycin and IV cefepime. On 07/11/2024, the patient is being seen for a follow-up. Remains quite lethargic and continues to have diminished level of consciousness. She remains on a BiPAP at her same setting of 12 over 5 cm of water. Repeat blood gas was done with an FiO2 40% showed a pH of 7.36 with a pCO2 of 71 and pO2 of 83. The patient is however arousable. She continues to be treated for a extensive right lower extremity wound infection with septicemia the patient had Enterococcus faecium and she remains essentially same antibiotic coverage including combination of cefepime and daptomycin. On today's blood work, the white cell count is 7.4 with a hemoglobin 10.9 and a platelet count of 174. The sodium level is at 139, BUN is 28 with a creatinine of 0.6. Potassium is at 4 and a serum bicarb is at 39. She is on Diamox 500 mg IV every 12 hours. She is on Bumex 1 mg p.o. daily. Rest of the medications are essentially unchanged. No significant agitation. 07/12/2024, the patient is being seen for a follow-up. On today's evaluation, the patient is arousable and she is able to communicate. She does have some background encephalopathy and confusion. She is complaining of pain involving lower extremities the patient has extensive wounds in lower extremities bilaterally involving the lateral aspect of the lower extremities bilaterally above the ankle. The area was inspected today and the wound base is e rythematous and less purulence. No foul drainage at this point in time. The patient was taken off the BiPAP this morning. The patient was placed on oxygen and she is currently at 60s over the nasal cannula. Repeat blood gas was done and the patient showed a pH of 7.35 with a pCO2 of 65 and pO2 of 52 and this was on FiO2 of 36%. The follow-up chest x-ray from today shows a masslike consolidation in the right lung which seems to be less dense and more hazy. There is also cardiomegaly and pulm vascular congestion with mild pulm vascular congestion. The white cell count is at 9, hemoglobin is 10.7 and a platelet count of 176. BUN is 34 with a creatinine of 0.6 and a sodium level is at 137. The patient is receiving Diamox to 50 mg p.o. daily. The patient remains on Lasix 40 mg IV push every 12 hours. The fluid balance is -1.7 L over the past 24 hours. The patient remains on broad-spectrum antibiotics. The patient is currently on cefepime and daptomycin. Rest of the medications remain unchanged. She remains on Aldactone 25 mg p.o. daily and trazodone at bedtime 50 mg nightly. 07/13/2024, the patient is being seen for a follow-up. Patient is awake and alert and communicating. Denies having any significant complaints other than pain in her back and lower extremities bilaterally. Neurologically, much more awake and alert and communicating. No signs of any CO2 narcosis. Remains on IV Lasix. Remains on Aldactone and Diamox. Most recent blood gas from yesterday showed marked improvement respiratory status. Current serum bicarb level is at 32, sodium is at 135 with a potassium level 3.9. The white cell count of 3.5 with a hemoglobin of 11 and a platelet count of 172. She is utilizing the BiPAP only overnight. Patient has adequate urine output. Denies having any other complaints. Tolerating the oral intake. No reported aspiration. Chest x-ray from yesterday still showing cardiomegaly and pulm vessel congestion in addition to a vague right midlung opacity that is being followed up by serial chest x- rays. She remains on a combination of cefepime and daptomycin. ID is on the case. She is still on a combination of Desyrel and Seroquel. Objective - Vital Signs Vital signs: Vital Signs Temp 99.2 F 07/13/24 12:00 Pulse 82 07/13/24 12:00 Resp 26 H 07/13/24 12:00 BP 105/57 07/13/24 12:00 Pulse Ox 95 07/13/24 10:00 FiO2 40 07/13/24 12:35 Intake & Output 07/12/24 07/13/24 07/13/24 18:59 06:59 18:59 Intake Total 1701.812 150 520 Output Total 880 680 920 Balance 821.812 -530 -400 Weight 106.9 kg 105.3 kg Intake: IV 130 150 Cefepime 2 gm In Sodium 100 100 Chloride 0.9% 100 ml @ 25 mls/hr IVPB Q8H [facility] Rx#: [id number] DAPTOmycin 800 mg In 50 Sodium Chloride 0.9% 50 ml @ 100 mls/hr IVPB Q24H [facility] Rx#:[id number] Invasive Line 5 10 Invasive Line 7 20 Intake, IV Titration 11.812 Amount Dexmedetomidine/0.9% NaCl 11.812 (Pmx) 400 mcg In Empty Bag 1 bag @ 0.2 MCG/KG/HR 5.25 mls/hr IV .Q19H3M [facility] Rx#:[id number] Oral 1560 520 Output: Urine 880 680 920 Other: Voiding Method Indwelling Catheter Indwelling Catheter Indwelling Catheter # Bowel Movements 0 0 0 - Exam GENERAL EXAM: Alert, pleasant 73-year-old female, resting in bed, o lethargic and sleepy, currently on 3 L of oxygen by nasal cannula. On and off, the patient is still utilizing the BiPAP. HEAD: Normocephalic. EYES: Normal reaction of pupils, equal size. NOSE: Clear with pink turbinates. THROAT: No erythema or exudates. NECK: No masses, no JVD. CHEST: No chest wall deformity. LUNGS: Equal air entry with no crackles, wheeze, rhonchi or dullness. CVS: S1 and S2 normal with no audible murmur, regular rhythm. ABDOMEN: No hepatosplenomegaly, normal bowel sounds, no guarding or rigidity. SPINE: No scoliosis or deformity SKIN: No rashes. Chronic venous stasis of the lower extremities. Purulent bilateral lower extremity ulcer with purulent material covering the base of the ulcer on the right lower extremity and stage IV heel ulcer in the right foot. CENTRAL NERVOUS SYSTEM: No focal deficits, tone is normal in all 4 extremities. Awake and alert and communicating. EXTREMITIES: Changes of chronic venous stasis. There is no peripheral edema. No clubbing, no cyanosis. Peripheral pulses are intact. - Labs CBC & Chem 7: 07/13/24 03:11 07/13/24 03:11 Labs: Abnormal Lab Results - Last 24 Hours (Table) 07/12/24 07/12/24 07/13/24 Range/Units 16:04 20:04 03:11 Hgb (11.4-16.0) gm/dL MCHC (31.0-37.0) g/dL Sodium 135 L (137-145) mmol/L Chloride 94 L (98-107) mmol/L Carbon Dioxide 32 H (22-30) mmol/L BUN 33 H (7-17) mg/dL Glucose 132 H (74-99) mg/dL POC Glucose (mg/dL) 121 H 121 H (70-110) mg/dL 07/13/24 07/13/24 07/13/24 Range/Units 03:11 05:36 10:45 Hgb 11.0 L (11.4-16.0) gm/dL MCHC 28.4 L (31.0-37.0) g/dL Sodium (137-145) mmol/L Chloride (98-107) mmol/L Carbon Dioxide (22-30) mmol/L BUN (7-17) mg/dL Glucose (74-99) mg/dL POC Glucose (mg/dL) 120 H 185 H (70-110) mg/dL 07/13/24 Range/Units 12:17 Hgb (11.4-16.0) gm/dL MCHC (31.0-37.0) g/dL Sodium (137-145) mmol/L Chloride (98-107) mmol/L Carbon Dioxide (22-30) mmol/L BUN (7-17) mg/dL Glucose (74-99) mg/dL POC Glucose (mg/dL) 142 H (70-110) mg/dL Microbiology - Last 24 Hours (Table) 07/05/24 23:33 Blood Culture Gram Stain - Final Blood Blood Culture - Final Enterococcus faecium Molecular ID 07/07/24 10:13 Blood Culture - Final Blood Assessment and Plan Plan: Acute on chronic hypoxemic/hypercapnic respiratory failure with significant respiratory acidosis based on the blood gas was done on 07/07/2024. Respiratory failure, multifactorial, the patient is morbidly obese. She may have, a component of COPD/CHF. In addition, the patient has a masslike opacity in the right lower lobe, rule out a consolidating mass/malignancy/pneumonia. Echocardiogram showed a preserved LV function. Nevertheless, the patient has moderate severe pulm hypertension with mild aortic stenosis. The patient is significantly improved and the patient is currently on 3 Suboxone by nasal cannula. Marked improvement in respiratory status. Remains on a combination of diuretics including Lasix, Aldactone and Diamox. Sepsis secondary to enterococcal septicemia and the blood cultures were negative. The patient is currently on a combination of cefepime and daptomycin. Altered mentation/encephalopathy secondary to above, and the patient has a component of CO2 narcosis. Clinically, the follow-up blood gas showed improvement in the acid-base status. Awake and alert and communicating. She is awake x 3. 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 Blood cultures positive for Enterococcus faecium. Source is right lower extremity cellulitis/wound Bilateral lower extremity infected wound. The wound is wet and there is purulent discharge ongoing. The patient also has a stage IV heel ulcer. Diabetes mellitus. Gastroesophageal reflux disease. Hyperlipidemia. Hypothyroidism. Morbid obesity Plan: Encephalopathy and CO2 narcosis has recovered. Blood gases showed improvement in acid-base status Continue BiPAP therapy at the same setting of 12/5 cm of water on and off during the day to be alternated by oxygen 3 L of oxygen by nasal cannula Continue IV Lasix Continue Aldactone Continue Diamox Blood cultures positive for Enterococcus faecium and the patient is currently on a combination of cefepime and daptomycin. ID is on the case. Keep IV fluids at KVO Continue IV cefepime and daptomycin Continue wound care to the lower extremities and the patient has a Opticell silver in addition to wrapping Monitor respiratory status Patient currently off Precedex The patient has a full CODE STATUS. Will transfer the patient to the ICU for closer monitoring. This evaluation was done and 31 minutes.
--- NOTE | 2024-07-13 14:08 | P.PN ---
Subjective Progress Note Date: 07/13/24 HISTORY OF PRESENT ILLNESS: This is a 73-year-old male with a past medical history significant for COPD, congestive heart failure, hypertension, and hyperlipidemia. 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 We have been asked to see the patient in consultation for congestive heart failure. Patient examined at the bedside. Patient presented to the hospital with a chief complaint of increased lower extremity swelling and shortness of breath. Patient was found to be in CHF and was started on IV Lasix. Patient currently denies any chest pain or pressure. Vital signs are stable. DIAGNOSTICS: - EKG reveals sinus mechanism with no signs of acute ischemia - Chest xray correlate for suspected CHF exacerbation. Additionally there is a 4.7 cm masslike consolidation in the right mid to lower lung. Underlying mass/malignancy is not excluded. - Laboratory data: WBC 11.22. Hemoglobin 11.3. Platelet count 185. Sodium 141. Potassium 4.3. BUN 17. Creatinine 0.9. - Current home cardiac medications include rosuvastatin 20 mg daily, enalapril 20 mg daily, and Lasix 40 mg in the morning and 20 mg in the afternoon. 07/06/2024 Patient examined this morning at the bedside. Patient apparently became hypotensive overnight with blood pressures in the 70s and 80s. Her Lasix was discontinued. However she was continued on lisinopril per primary medicine. Systolic blood pressure this morning is in the 90s. July 07, 2024 The patient was seen this morning she still have some change in mental status and she is somewhat lethargic and possibly dehydrated. She is getting a workup for possible sepsis. Hemodynamically she is stable now. The echo is as described above showed normal LV systolic function with mild aortic stenosis. The physical examination is remarkable for regular rhythm with a systolic murmur at the right and left upper sternal border with severe bilateral lower extremi ties chronic skin changes and chronic edema July 08, 2024 The patient was seen and evaluated this morning with apparently she was transferred from 6 N. to 3 S.. She still have change in mental status currently under workup. Hemodynamically she is stable. She still have bilateral lower extremities edema. I am going to give the patient only 1 dose of Lasix IV and continue monitor the kidney function and electrolytes. She is under an investigation for right upper lobe mass with possible need for PET scan. The mass was seen on the CT scan as well as chest x-ray. The physical examination i s remarkable for change in mental status with regular rate and rhythm and mild sinus tachycardia and diminished breathing sounds bilaterally which is still hypoxic requiring BiPAP at 40% 07/09/2024 Patient has been on BiPAP, severely hypercapnic with retention of bicarb with metabolic encephalopathy Bicarb 44, BUN 29, creatinine 0.5, Hb 10.6 07/10/2024 Patient remains somnolent on BiPAP She is on IV antibiotics BP 123/69, heart rate 76, Echo from this admission shows an EF of 55%, moderate concentric LVH, moderate to severe pulmonary hypertension with RVSP of 54 mmHg, 07/11/2024 Patient examined this morning at the bedside. Patient remains confused. She is currently on BiPAP. BUN 28. Creatinine 0.68. 07/12/2024 Patient seen and examined at bedside this a.m. Patient was transferred to ICU because of confusion and delirium. For this patient received Precedex. Confusion delirium is most likely because of CO2 retention. 07/13/2024 Patient is still on 4 L nasal cannula supplemental oxygen, very drowsy, with hypoventilation related hypercapnia PHYSICAL EXAM: VITAL SIGNS: Reviewed. GENERAL: Well-developed in no acute distress. HEENT: Head is normocephalic. Pupils are equal, round. Sclerae anicteric. Mucous membranes of the mouth are moist. Neck supple. No JVD or thyromegaly LUNGS: Respirations even and unlabored. Lungs essentially clear to auscultation bilaterally. HEART: Regular rate and rhythm. S1 and S2 heard. EXTREMITIES: Normal range of motion. No clubbing or cyanosis. Peripheral pulses intact. Bilateral lower extremity edema with evidence of cellulitis ASSESSMENT: Bilateral lower extremity cellulitis Acute on chronic heart failure with preserved EF Metabolic encephalopathy due to hypercapnia Acute on chronic hypoxic and hypercapnic respiratory failure Severe COPD Right lung mass, pulmonary following Hypertension, Hyperlipidemia Morbid obesity: BMI 46.1 PLAN: Blood cultures from 07/05/2024 grew Enterococcus however repeat blood cultures from from 07/07 and 07/08 have not shown any growth so far. Because of poor respiratory status and clearance of blood cultures with antibiotics, HANNA procedure seems to be more risky as compared to the benefit may offer rest. Continue IV Lasix 40 mg twice daily Aldactone 25 mg daily Consider Diamox for metabolic alkalosis and CO2 retention Supportive care in ICU Daily weights, accurate intake and output, and monitoring of kidney function Further recommendations pending patient course Prognosis is guarded Objective - Vital Signs Vital signs: Vital Signs Temp 99.2 F 07/13/24 12:00 Pulse 82 07/13/24 12:00 Resp 26 H 07/13/24 12:00 BP 105/57 07/13/24 12:00 Pulse Ox 95 07/13/24 10:00 FiO2 40 07/13/24 12:35 Intake & Output 07/12/24 07/13/24 07/13/24 18:59 06:59 18:59 Intake Total 1701.812 150 520 Output Total 880 680 920 Balance 821.812 -530 -400 Weight 106.9 kg 105.3 kg Intake: IV 130 150 Cefepime 2 gm In Sodium 100 100 Chloride 0.9% 100 ml @ 25 mls/hr IVPB Q8H [facility] Rx#: [id number] DAPTOmycin 800 mg In 50 Sodium Chloride 0.9% 50 ml @ 100 mls/hr IVPB Q24H [facility] Rx#:[id number] Invasive Line 5 10 Invasive Line 7 20 Intake, IV Titration 11.812 Amount Dexmedetomidine/0.9% NaCl 11.812 (Pmx) 400 mcg In Empty Bag 1 bag @ 0.2 MCG/KG/HR 5.25 mls/hr IV .Q19H3M [facility] Rx#:[id number] Oral 1560 520 Output: Urine 880 680 920 Other: Voiding Method Indwelling Catheter Indwelling Catheter Indwelling Catheter # Bowel Movements 0 0 0 - Labs CBC & Chem 7: 07/13/24 03:11 07/13/24 03:11 Labs: Abnormal Lab Results - Last 24 Hours (Table) 07/12/24 07/12/24 07/13/24 Range/Units 16:04 20:04 03:11 Hgb (11.4-16.0) gm/dL MCHC (31.0-37.0) g/dL Sodium 135 L (137-145) mmol/L Chloride 94 L (98-107) mmol/L Carbon Dioxide 32 H (22-30) mmol/L BUN 33 H (7-17) mg/dL Glucose 132 H (74-99) mg/dL POC Glucose (mg/dL) 121 H 121 H (70-110) mg/dL 07/13/24 07/13/24 07/13/24 Range/Units 03:11 05:36 10:45 Hgb 11.0 L (11.4-16.0) gm/dL MCHC 28.4 L (31.0-37.0) g/dL Sodium (137-145) mmol/L Chloride (98-107) mmol/L Carbon Dioxide (22-30) mmol/L BUN (7-17) mg/dL Glucose (74-99) mg/dL POC Glucose (mg/dL) 120 H 185 H (70-110) mg/dL 07/13/24 Range/Units 12:17 Hgb (11.4-16.0) gm/dL MCHC (31.0-37.0) g/dL Sodium (137-145) mmol/L Chloride (98-107) mmol/L Carbon Dioxide (22-30) mmol/L BUN (7-17) mg/dL Glucose (74-99) mg/dL POC Glucose (mg/dL) 142 H (70-110) mg/dL Microbiology - Last 24 Hours (Table) 07/05/24 23:33 Blood Culture Gram Stain - Final Blood Blood Culture - Final Enterococcus faecium Molecular ID 07/07/24 10:13 Blood Culture - Final Blood
[2024-07-13] MEDS: GENTAMICIN PER PHARMACY MISCELLANE SCH (15:01)
--- NOTE | 2024-07-13 15:18 | P.PN ---
Subjective Progress Note Date: 07/13/24 Principal diagnosis: Reason for follow-up with lower extremity ulcer and cellulitis Patient is a 73-year-old female with a past medical history significant for COPD heart failure diabetes mellitus reflux hyperlipidemia presenting to the hospital for evaluation of a fall that happened the day of presentation to the hospital patient accidentally rolled off the couch onto the floor and was too weak to get herself up, noticed to have bilateral extremity ulcer and cellulitis prompted this consultation. On today's evaluation that is 07/13/2024, the patient continues to be afebrile, the patient is on BiPAP with FiO2 40% the patient remains to be lethargic less responsive unable provide any history no vomiting or diarrhea has been reported. Patient did have a white count of 8.5 creatinine 0.67 blood cultures from 07/08/2024 also came back positive Objective - Vital Signs Vital signs: Vital Signs Temp 99.2 F 07/13/24 12:00 Pulse 82 07/13/24 12:00 Resp 26 H 07/13/24 12:00 BP 105/57 07/13/24 12:00 Pulse Ox 95 07/13/24 10:00 FiO2 40 07/13/24 12:35 Intake & Output 07/12/24 07/13/24 07/13/24 18:59 06:59 18:59 Intake Total 1701.812 150 520 Output Total 880 680 570 Balance 821.812 -530 -50 Weight 106.9 kg 105.3 kg Intake: IV 130 150 Cefepime 2 gm In Sodium 100 100 Chloride 0.9% 100 ml @ 25 mls/hr IVPB Q8H [facility] Rx#: [id number] DAPTOmycin 800 mg In 50 Sodium Chloride 0.9% 50 ml @ 100 mls/hr IVPB Q24H [facility] Rx#:[id number] Invasive Line 5 10 Invasive Line 7 20 Intake, IV Titration 11.812 Amount Dexmedetomidine/0.9% NaCl 11.812 (Pmx) 400 mcg In Empty Bag 1 bag @ 0.2 MCG/KG/HR 5.25 mls/hr IV .Q19H3M [facility] Rx#:[id number] Oral 1560 520 Output: Urine 880 680 570 Other: Voiding Method Indwelling Catheter Indwelling Catheter Indwelling Catheter # Bowel Movements 0 0 0 - Exam GENERAL DESCRIPTION: An elderly female lying in bed in no distress RESPIRATORY SYSTEM: Unlabored breathing , decreased breath sounds at bases HEART: S1 S2 regular rate and rhythm , ABDOMEN: Soft , no tenderness EXTREMITIES: Bilateral lower extremity currently wrapped with an Blue wrap she did have wound on the right heel with necrotic base but no surrounding redness or drainage - Labs CBC & Chem 7: 07/13/24 03:11 07/13/24 03:11 Labs: Abnormal Lab Results - Last 24 Hours (Table) 07/12/24 07/12/24 07/13/24 Range/Units 16:04 20:04 03:11 Hgb (11.4-16.0) gm/dL MCHC (31.0-37.0) g/dL Sodium 135 L (137-145) mmol/L Chloride 94 L (98-107) mmol/L Carbon Dioxide 32 H (22-30) mmol/L BUN 33 H (7-17) mg/dL Glucose 132 H (74-99) mg/dL POC Glucose (mg/dL) 121 H 121 H (70-110) mg/dL 07/13/24 07/13/24 07/13/24 Range/Units 03:11 05:36 10:45 Hgb 11.0 L (11.4-16.0) gm/dL MCHC 28.4 L (31.0-37.0) g/dL Sodium (137-145) mmol/L Chloride (98-107) mmol/L Carbon Dioxide (22-30) mmol/L BUN (7-17) mg/dL Glucose (74-99) mg/dL POC Glucose (mg/dL) 120 H 185 H (70-110) mg/dL 07/13/24 Range/Units 12:17 Hgb (11.4-16.0) gm/dL MCHC (31.0-37.0) g/dL Sodium (137-145) mmol/L Chloride (98-107) mmol/L Carbon Dioxide (22-30) mmol/L BUN (7-17) mg/dL Glucose (74-99) mg/dL POC Glucose (mg/dL) 142 H (70-110) mg/dL Microbiology - Last 24 Hours (Table) 07/07/24 10:13 Blood Culture - Final Blood Assessment and Plan (1) Leg ulcer, left Current Visit: Yes Status: Acute Code(s): L97.929 - NON-PRS CHRONIC ULC UNSP PRT OF L LOW LEG W UNSP SEVERITY SNOMED Code(s): 38270420 (2) Left leg cellulitis Current Visit: Yes Status: Acute Code(s): L03.116 - CELLULITIS OF LEFT LOWER LIMB SNOMED Code(s): 86957762935762855 (3) Penicillin allergy Current Visit: Yes Status: Acute Code(s): Z88.0 - ALLERGY STATUS TO PENICILLIN SNOMED Code(s): 28832748 (4) Bacteremia Current Visit: Yes Status: Acute Code(s): R78.81 - BACTEREMIA SNOMED Code(s): 7650669 Plan: 1patient with diffuse swelling of bilateral lower extremity with superficial solution to the left leg likely venous stasis ulcer with secondary cellulitis likely from gram-positive skin neida. 2patient with a penicillin allergy that will limit the number of antibiotics safe to use. 3local wound care to the left leg with dry Aquacel dressing and Blue wrap to keep the swelling down, and apply Santyl to the wound to the right heel change daily. 4patient did have resolution of the fever and white count is normal however the patient blood culture repeat came back positive highly clinically suspicious for possible endovascular source such as endocarditis 5TEE was discussed with the cardiology keeping in mind patient current respirat ory status want to be to stabilize before going for HANNA I will continue patient on daptomycin and add gentamicin for synergy, discontinue cefepime, Vanco and gentamicin combination will put her at high risk for nephrotoxicity hence we will avoid that combination, prognosis remains to be guarded Dictation was produced using [employer] dictation software. please excuse any grammatical, word or spelling errors. Time with Patient: Less than 30
[2024-07-13] MEDS: DILTIAZEM 125 MG in SODIUM CHLORIDE 0.9% 100 ML IV SCH (15:20)
[2024-07-13] MEDS: GENTAMICIN 80 MG in SODIUM CHLORIDE 0.9% 100 ML IVPB SCH (15:21)
[2024-07-13 16:19] LABS: Glucose,Whole Blood 129 mg/dL (70-110)
[2024-07-13 19:54] LABS: Glucose,Whole Blood 129 mg/dL (70-110)
[2024-07-13] MEDS: METOPROLOL TARTRATE 25 MG TAB PO SCH (21:48)
[2024-07-14] MEDS: GENTAMICIN IN NACL ISO-OSM PMX 80 MG in SALINE 1 100ML.BAG IVPB SCH (02:29)
[2024-07-14 05:57] LABS: Glucose,Whole Blood 141 mg/dL (70-110)
[2024-07-14 06:31] LABS: HCT 40.4 % (34.0-46.0); Hypochromasia Marked; MCH 28.4 pg (25.0-35.0); MCHC 29.7 g/dL (31.0-37.0); MCV 95.8 fL (80.0-100.0); Mean Platelet Volume 8.4; Platelet Count 206 k/uL (150-450); RBC 4.22 m/uL (3.80-5.40); RDW 14.6 % (11.5-15.5); WBC 10.9 k/uL (3.8-10.6)
[2024-07-14 06:42] LABS: African American GFR (CKD) 81 (>60 ml/min/1.73 sqM); Anion Gap 6 mmol/L; Blood Urea Nitrogen 32 mg/dL (7-17); C Reactive Protein 7.7 mg/dL (<1.0); Calcium 8.8 mg/dL (8.4-10.2); Carbon Dioxide 35 mmol/L (22-30); Chloride 91 mmol/L (98-107); Glucose 140 mg/dL (74-99); Non-African American GFR(CKD) 70 (>60 ml/min/1.73 sqM); Potassium 4.1 mmol/L (3.5-5.1); Sodium 132 mmol/L (137-145)
--- NOTE | 2024-07-14 08:54 | P.PN ---
Subjective Progress Note Date: 07/14/24 Ajay Robertson, is a 73-year-old female who presented to [facility] emergency room with a chief complaint of worsening shortness of breath, additionally patient was found on the floor in her house, she stated that she fell while asleep and was not able to stand up. She was evaluated in the emergency room vital examination on presentation revealed a temperature of 98.3 pulse 89 respiration 20 blood pressure 115/73 pulse ox 95% on 5 L nasal cannula Laboratory data revealed a white blood count of 11.4 hemoglobin 12.7 platelet count 190 BUN 20 creatinine 0.64 influenza A and B RSV and COVID-19 PCR were all negative Testing in the emergency room revealed chest x-ray revealed pulmonary congestion suggestive of congestive heart failure exacerbation and a new 4.7 masslike consolidation in the right mid to lower lung Patient was admitted to medical floor for further evaluation and treatment Past medical history is significant for history of hypertension, history of hyperlipidemia, history of hypothyroidism, history of diabetes mellitus, history of COPD, history of congestive heart failure, history of morbid obesity, history of recurrent episodes of bilateral lower extremity cellulitis. On review of systems patient is alert and oriented x 3 in no apparent distress, she is complaining of generalized body ache, she is complaining of shortness of breath, otherwise she denies any complaints there is no fever or chills no headache or dizziness no chest pain, she has occasional cough no nausea or vomiting no abdominal pain no diarrhea and no urinary symptoms. On 07/05/2024 patient is alert and oriented x 3. Awaiting consulting providers input. Patient remains on IV Lasix. CT of the chest has been completed. At this time patient denies chest pain. Patient denies nausea vomiting or diarrhea. Patient denies any urinary burning or frequency On 07/06/2024 patient is alert and oriented x 3. Patient remains on IV Lasix and IV antibiotics. Cardiology pulmonary and infectious disease services are following. Current vital signs temp 98.1, heart rate 67, respiratory rate 15, blood pressure 96/53 with a pulse ox of 93% on 4 L. Patient denies chest pain or shortness of breath. Patient denies nausea vomiting or diarrhea. Patient denies any urinary burning or frequency. On 07/07/2024 patient was seen and examined on the telemetry floor she is somnolent arousable in no apparent distress, yesterday patient was agitated and aggressive with medical staff, Seroquel was added to her medication regimen, however today she is more somnolent, Seroquel will be changed to as needed only. There is no fever or chills no headache or dizziness no chest pain patient still has shortness of breath with any activity and cough no nausea or vomiting no abdominal pain no diarrhea no urinary symptoms. On 07/08/2024 patient was seen and examined on the telemetry floor, she is so mnolent responsive in no apparent distress, currently she is maintained on BiPAP, she had episodes of agitation through the night, she was pulling off her IV in the BiPAP, she received 1 dose of IM Haldol, she is maintained on soft restraints at this time, her vital examination reveals a temperature of 99.8 pulse 109 respiration 22 pulse ox 95% on BiPAP FiO2 40% she is maintained on IV daptomycin infectious disease are following On 07/09/2024 patient was seen and examined on the telemetry floor, she is somnolent responsive in no apparent distress, she is still having episodes of agitation requiring as needed Seroquel use, otherwise she is improving gradually, there is no fever or chills no headache or dizziness no chest pain, she has shortness of breath with any activity, no nausea or vomiting no abdominal pain no diarrhea and no urinary symptoms, she remains on IV antibiotics, infectious disease are following, also cardiology and pulmonary are following On 07/10/2024 patient remains somnolent on BiPAP. Pulmonary and infectious disease services following. Patient remains on IV antibiotics. Patient remains on IV Diamox. Current vital signs temp 99.8, heart rate 78, respiratory rate 18, blood pressure 123/69 with a pulse ox of 96% on BiPAP with an FiO2 of 40. On 07/11/2024 patient was seen and examined on the medical floor, she is alert responsive in no apparent distress, she was maintained on BiPAP through the night, there is no fever or chills no headache or dizziness no chest pain no shortness of breath at rest, she has occasional cough and severe shortness of breath with any activity no nausea or vomiting no abdominal pain no diarrhea no urinary symptoms. On 07/12/2024 patient is alert but remains confused. Patient remains in the ICU. Patient was on BiPAP for 6 hours. Patient did require Precedex for increased agitation. Patient remains on IV cefepime and Diamox. Along with scheduled Bumex. Colace added for constipation. Patient denies chest pain. Patient denies nausea vomiting or diarrhea. Patient denies any urinary burning frequency On 07/13/2024 patient is more alert today. Per nursing staff plans for HANNA due to bacteremia. Current vital signs temp 99.0, heart rate 92, respiratory rate 25, blood pressure 125/69 with a pulse ox of 97% on 6 L. Patient denies chest pain. Patient denies nausea vomiting or diarrhea. Patient denies any urinary burning or frequency. Patient remains on Diamox and IV Maxipime. On 07/14/2024 patient was seen and examined on the telemetry floor, she is alert and oriented x 3 in no apparent distress, during the night patient required BiPAP, she had an episode of agitation and she received IM Haldol, yesterday e vening patient had an episode of atrial fibrillation with rapid ventricular response, she received IV Cardizem, and her rhythm converted back to normal sinus rhythm. Otherwise no issues since yesterday, patient denies any chest pain, there is no shortness of breath at rest, no fever or chills no headache or dizziness no palpitation, no nausea or vomiting no abdominal pain no diarrhea and no urinary symptoms. Objective - Vital Signs Vital signs: Vital Signs Temp 97.9 F 07/14/24 04:00 Pulse 58 L 07/14/24 04:00 Resp 16 07/14/24 04:00 BP 96/59 07/14/24 04:00 Pulse Ox 97 07/14/24 04:00 FiO2 40 07/14/24 02:00 Intake & Output 07/13/24 07/14/24 07/14/24 18:59 06:59 18:59 Intake Total 520 231.333 Output Total 1120 725 Balance -600 -493.667 Weight 105.5 kg Intake: Intake, IV Titration 111.333 Amount Diltiazem 125 mg In 111.333 Sodium Chloride 0.9% 100 ml @ 5 MG/HR 5 mls/hr IV .Q24H [facility] Rx#:[id number] Oral 520 120 Output: Urine 1120 725 Other: Voiding Method Indwelling Catheter Indwelling Catheter # Bowel Movements 0 - Exam In general patient is alert and oriented x 3 in no distress HEENT head normocephalic and atraumatic Neck is supple no JVD no goiter no lymphadenopathy no carotid bruit Chest examination reveals a scattered crackles bilaterally no wheezing Cardiac exam reveals regular heart sounds S1 and S2 no gallops no murmurs Abdomen is soft nontender no organomegaly with normal bowel sounds Extremity exam reveals 3+ edema with erythema and chronic stasis changes, multiple small ulceration with scabbing no cyanosis or clubbing Neurological examination reveals no gross focal deficits - Labs CBC & Chem 7: 07/14/24 05:56 07/14/24 05:56 Labs: Abnormal Lab Results - Last 24 Hours (Table) 07/13/24 07/13/24 07/13/24 Range/Units 10:45 12:17 16:15 WBC (3.8-10.6) k/uL MCHC (31.0-37.0) g/dL Sodium (137-145) mmol/L Chloride (98-107) mmol/L Carbon Dioxide (22-30) mmol/L BUN (7-17) mg/dL Glucose (74-99) mg/dL POC Glucose (mg/dL) 185 H 142 H 129 H (70-110) mg/dL C-Reactive Protein (<1.0) mg/dL 07/13/24 07/14/24 07/14/24 Range/Units 19:49 05:56 05:56 WBC 10.9 H (3.8-10.6) k/uL MCHC 29.7 L (31.0-37.0) g/dL Sodium 132 L (137-145) mmol/L Chloride 91 L (98-107) mmol/L Carbon Dioxide 35 H (22-30) mmol/L BUN 32 H (7-17) mg/dL Glucose 140 H (74-99) mg/dL POC Glucose (mg/dL) 129 H (70-110) mg/dL C-Reactive Protein 7.7 H (<1.0) mg/dL 07/14/24 Range/Units 05:56 WBC (3.8-10.6) k/uL MCHC (31.0-37.0) g/dL Sodium (137-145) mmol/L Chloride (98-107) mmol/L Carbon Dioxide (22-30) mmol/L BUN (7-17) mg/dL Glucose (74-99) mg/dL POC Glucose (mg/dL) 141 H (70-110) mg/dL C-Reactive Protein (<1.0) mg/dL Microbiology - Last 24 Hours (Table) 07/08/24 12:13 Blood Culture - Final Blood 07/05/24 23:33 Blood Culture Gram Stain - Final Blood Blood Culture - Final Enterococcus faecium Molecular ID Assessment and Plan Plan: Acute congestive heart failure exacerbation Bacteremia New 4.7 cm masslike consolidation opacity in the right midlung Fall at home, with generalized body pain Bilateral lower extremity cellulitis, with multiple open ulcers Underlying history of hypertension Underlying history of hyperlipidemia Underlying history of diabetes mellitus Underlying history of COPD Underlying history of morbid obesity At this time patient was admitted to telemetry floor Patient transferred to the ICU Remains on IV antibiotics Continue BiPAP Consultation for pulmonary, infectious disease, and cardiology initiated Will follow closely
[2024-07-14 10:09] LABS: Erythrocyte Sedimentation Rate 90 mm/Hr (0-30)
[2024-07-14 11:39] LABS: Glucose,Whole Blood 120 mg/dL (70-110)
--- NOTE | 2024-07-14 13:40 | P.PN ---
Subjective Progress Note Date: 07/14/24 This is a 73-year-old obese white female today seen in room 620. She came to the hospital with 1 day of shortness of breath, leg swelling, and cough. Her viral screen was negative. The patient has smoked for about 40 to 45 years. The only medicine she takes at home for her breathing is albuterol. Her procalcitonin level was 0.05. Chest x-ray showed some fluid overload, but also showed a possible mass in the right midlung, which could be either an actual mass or pseudotumor. A CT scan was ordered. It does show a 7.1 lobulated mass in the right lung. A PET scan was recommended. Currently, the patient is on 4 L of oxygen. No fluids are ordered. She is getting Lasix 40 mg every 8 hours. She also has an updraft ordered. White count 1.22, hemoglobin 11.3, macro 39.1, platelet count 185,000. Coags are normal. Sodium 141, potassium 4.3, chlorides 94, CO2 39, BUN 17.5, creatinine 0.9. Glucose 169. Calcium 8.6. Troponin was negative. N-terminal proBNP was elevated at 1830. Procalcitonin level was 0.05. Urine is negative. Viral screen was negative. Chest x-ray was consistent with fluid overload/CHF. Cardiology has seen the patient. The patient is seen today July 06, 2024 in follow-up on the regular medical floor. She is currently sitting up in bed. Awake and alert in no acute distress. She is maintaining O2 saturations in the 90s on 4 L/min per nasal cannula. She is receiving normal saline at 75 mL/h. White count 10.2. Hemoglobin 11.5. Platelets 198. Sodium 134. Potassium 4.5. Bicarb 38. BUN 29. Creatinine 0.83. Glucose 132. She remains on cefazolin. IV diuretics were discontinued. The patient is seen today July 07, 2024 in follow-up on the regular medical floor. She is currently resting comfortably in bed. Awake and alert in no acute distress. Maintaining good O2 saturations in the 90s on 5 L/min per nasal cannula. She is receiving normal saline at 50 mL/h. Her blood culture isshowing Enterococcus faecium. She is currently on daptomycin. Remains on bronchodilators. 1.2. Platelets 204. Sodium 144. Potassium 5.2. Bicarb 39. BUN 24. Creatinine 0.6. Glucose 153. Progress note dated July 08, 2024. The patient was moved down to the third floor, sometime yesterday or last night, for respiratory distress. I was never notified. The patient was seen today in room 360. She was on BiPAP, with settings of 12/5, and 40%. She was getting saline at 20 cc an hour. A blood gas was done on 44% oxygen showing a pO2 of 84, pCO2 of 91, pH is 7.29. Her blood cultures were positive for Enterococcus faecium. For that reason, she is on daptomycin. Current labs include a white count 7.8, hemoglobin 11.2, hematocrit 38.3, and a platelet count of 173,000. Sodium 139, potassium 4.5, chlorides 93, CO2 40, BUN 29, and creatinine 0.58. Glucose 74. Albumin is 3. Chest x-ray done yesterday, continues to show me in addition, there is diffuse changes, consistent with fluid overload and/or pneumonia. On 07/09/2024, the patient is being seen for a follow-up. Morbidly obese female patient was hospitalized for an acute on top of chronic hypoxic and hypercapnic respiratory failure. At the time of my evaluation this morning, the patient was started on a BiPAP at a pressure of 12/5 with an FiO2 of 40%. I took the patient off the BiPAP and put her on 4 L of oxygen by nasal cannula. Subsequent blood gases showed a pH of 7.34 with pCO2 of 86 and pO2 162. The patient has a mass like consolidation involving the right lower lobe. This could be pneumonia versus malignancy. At the same time, the patient is septic and the source of sepsis is a wound infection and the patient has active wet wound with purulent foul-smelling material covering the wound base and the right lower extremity above the lateral malleolus. Blood culture was positive for Enterococcus faecalis and based on that, the patient has been maintained on a combination of daptomycin and the patient is also on IV cefepime. Repeat chest x-ray was done and it showed a right lower lobe masslike opacity that remains unchanged compared to the previous x-rays in addition to mild cardiomegaly and pulm vessel congestion. The patient is sitting daily diuresis. The patient is producing excellent urine output and the fluid balance is -2.6 L over the past 24 hours. The white cell count is 7.1 with a heme of 10.6 and a platelet count of 151. Serum bicarb is 44 with BUN of 29 and a creatinine of 0.5. Sodium is at 140. She remains encephalopathic. She is arousable. She has tolerated the BiPAP reasonably well. On 07/10/2024, the patient is being seen for a follow-up. The patient remains on BiPAP and she seems to be tolerating the BiPAP reasonably well. This morning, the patient is on a BiPAP at a pressure of 12 over 5 cm of water with an FiO2 of 40% which is essentially the same setting as yesterday. She is arousable and she is able to communicate. At times confused. I took this patient off the BiPAP and put her on oxygen at 5 L/min nasal cannula. Subsequent blood gases showed a pH of 7.33 with a pCO2 of 78 and pO2 of 129. She is still lethargic and weak. Denies having any chest pain. She does have swelling in lower extremities bilaterally. She was given IV Lasix yesterday and her fluid balance is -3.1 L over the past 24 hours. She remains on Bumex 1 mg p.o. daily. She is also on Diamox 5 mg IV every 12 hours. The blood work from today shows a BUN of 24 with a creatinine of 0.7. Serum bicarb is at 36 and a sodium levels at 140. The white cell count is 7.9 with a hemoglobin of 11.4 and a platelet count of 164. The follow-up chest x-ray from yesterday was still showing a masslike consolidation/opacity in the right midlung/right lower lobe area. The patient also has some ongoing mild cardiomegaly. Wound care is being applied. ID is on the case. The patient remains on daptomycin and IV cefepime. On 07/11/2024, the patient is being seen for a follow-up. Remains quite lethargic and continues to have diminished level of consciousness. She remains on a BiPAP at her same setting of 12 over 5 cm of water. Repeat blood gas was done with an FiO2 40% showed a pH of 7.36 with a pCO2 of 71 and pO2 of 83. The patient is however arousable. She continues to be treated for a extensive right lower extremity wound infection with septicemia the patient had Enterococcus faecium and she remains essentially same antibiotic coverage including combination of cefepime and daptomycin. On today's blood work, the white cell count is 7.4 with a hemoglobin 10.9 and a platelet count of 174. The sodium level is at 139, BUN is 28 with a creatinine of 0.6. Potassium is at 4 and a serum bicarb is at 39. She is on Diamox 500 mg IV every 12 hours. She is on Bumex 1 mg p.o. daily. Rest of the medications are essentially unchanged. No significant agitation. 07/12/2024, the patient is being seen for a follow-up. On today's evaluation, the patient is arousable and she is able to communicate. She does have some background encephalopathy and confusion. She is complaining of pain involving lower extremities the patient has extensive wounds in lower extremities bilaterally involving the lateral aspect of the lower extremities bilaterally above the ankle. The area was inspected today and the wound base is e rythematous and less purulence. No foul drainage at this point in time. The patient was taken off the BiPAP this morning. The patient was placed on oxygen and she is currently at 60s over the nasal cannula. Repeat blood gas was done and the patient showed a pH of 7.35 with a pCO2 of 65 and pO2 of 52 and this was on FiO2 of 36%. The follow-up chest x-ray from today shows a masslike consolidation in the right lung which seems to be less dense and more hazy. There is also cardiomegaly and pulm vascular congestion with mild pulm vascular congestion. The white cell count is at 9, hemoglobin is 10.7 and a platelet count of 176. BUN is 34 with a creatinine of 0.6 and a sodium level is at 137. The patient is receiving Diamox to 50 mg p.o. daily. The patient remains on Lasix 40 mg IV push every 12 hours. The fluid balance is -1.7 L over the past 24 hours. The patient remains on broad-spectrum antibiotics. The patient is currently on cefepime and daptomycin. Rest of the medications remain unchanged. She remains on Aldactone 25 mg p.o. daily and trazodone at bedtime 50 mg nightly. 07/13/2024, the patient is being seen for a follow-up. Patient is awake and alert and communicating. Denies having any significant complaints other than pain in her back and lower extremities bilaterally. Neurologically, much more awake and alert and communicating. No signs of any CO2 narcosis. Remains on IV Lasix. Remains on Aldactone and Diamox. Most recent blood gas from yesterday showed marked improvement respiratory status. Current serum bicarb level is at 32, sodium is at 135 with a potassium level 3.9. The white cell count of 3.5 with a hemoglobin of 11 and a platelet count of 172. She is utilizing the BiPAP only overnight. Patient has adequate urine output. Denies having any other complaints. Tolerating the oral intake. No reported aspiration. Chest x-ray from yesterday still showing cardiomegaly and pulm vessel congestion in addition to a vague right midlung opacity that is being followed up by serial chest x- rays. She remains on a combination of cefepime and daptomycin. ID is on the case. She is still on a combination of Desyrel and Seroquel. 07/14/2024, the patient is being seen for a follow-up. Overnight, the patient was utilizing her BiPAP at a pressure of 12 over 5 cm of water. This morning, the patient is still on a BiPAP. She is arousable and awake. No significant events overnight. No chest pain. No focal neurological deficits. Remains on the same regimen of antibiotics and the patient remains on daptomycin. ID is on the case. She remains on diuretics. She is on IV Lasix 40 mg every 12 hours and Aldactone 25 mg p.o. daily. She is also on Diamox to 50 mg p.o. on a daily basis. Sodium levels at 132, potassium level is at 4.1, BUN 32 with a creatinine 0.8. The white cell count of 10.9 with a hemoglobin 12 and a platelet count of 206. She was transferred out of the intensive care unit yesterday. No fever. No chills. She is still undergoing wound care to her lower extremity wounds and ID is on the case. Objective - Vital Signs Vital signs: Vital Signs Temp 97.9 F 07/14/24 04:00 Pulse 58 L 07/14/24 04:00 Resp 16 07/14/24 04:00 BP 96/59 04/05/25 04:00 Pulse Ox 97 07/14/24 04:00 FiO2 40 07/14/24 02:00 Intake & Output 07/13/24 07/14/24 07/14/24 18:59 06:59 18:59 Intake Total 520 231.333 Output Total 1120 725 Balance -600 -493.667 Weight 105.5 kg Intake: Intake, IV Titration 111.333 Amount Diltiazem 125 mg In 111.333 Sodium Chloride 0.9% 100 ml @ 5 MG/HR 5 mls/hr IV .Q24H [facility] Rx#:[id number] Oral 520 120 Output: Urine 1120 725 Other: Voiding Method Indwelling Catheter Indwelling Catheter # Bowel Movements 0 - Exam GENERAL EXAM: Alert, pleasant 73-year-old female, resting in bed, o lethargic and sleepy, cur on a BiPAP rently on 3 L of oxygen by nasal cannula. On and off, the patient is still utilizing the BiPAP. HEAD: Normocephalic. EYES: Normal reaction of pupils, equal size. NOSE: Clear with pink turbinates. THROAT: No erythema or exudates. NECK: No masses, no JVD. CHEST: No chest wall deformity. LUNGS: Equal air entry with no crackles, wheeze, rhonchi or dullness. CVS: S1 and S2 normal with no audible murmur, regular rhythm. ABDOMEN: No hepatosplenomegaly, normal bowel sounds, no guarding or rigidity. SPINE: No scoliosis or deformity SKIN: No rashes. Chronic venous stasis of the lower extremities. Purulent bilateral lower extremity ulcer with purulent material covering the base of the ulcer on the right lower extremity and stage IV heel ulcer in the right foot. CENTRAL NERVOUS SYSTEM: No focal deficits, tone is normal in all 4 extremities. Awake and alert and communicating. EXTREMITIES: Changes of chronic venous stasis. There is no peripheral edema. No clubbing, no cyanosis. Peripheral pulses are intact. - Labs CBC & Chem 7: 07/14/24 05:56 07/14/24 05:56 Labs: Abnormal Lab Results - Last 24 Hours (Table) 07/13/24 07/13/24 07/13/24 Range/Units 10:45 12:17 16:15 WBC (3.8-10.6) k/uL MCHC (31.0-37.0) g/dL Sodium (137-145) mmol/L Chloride (98-107) mmol/L Carbon Dioxide (22-30) mmol/L BUN (7-17) mg/dL Glucose (74-99) mg/dL POC Glucose (mg/dL) 185 H 142 H 129 H (70-110) mg/dL C-Reactive Protein (<1.0) mg/dL 07/13/24 07/14/24 07/14/24 Range/Units 19:49 05:56 05:56 WBC 10.9 H (3.8-10.6) k/uL MCHC 29.7 L (31.0-37.0) g/dL Sodium 132 L (137-145) mmol/L Chloride 91 L (98-107) mmol/L Carbon Dioxide 35 H (22-30) mmol/L BUN 32 H (7-17) mg/dL Glucose 140 H (74-99) mg/dL POC Glucose (mg/dL) 129 H (70-110) mg/dL C-Reactive Protein 7.7 H (<1.0) mg/dL 07/14/24 Range/Units 05:56 WBC (3.8-10.6) k/uL MCHC (31.0-37.0) g/dL Sodium (137-145) mmol/L Chloride (98-107) mmol/L Carbon Dioxide (22-30) mmol/L BUN (7-17) mg/dL Glucose (74-99) mg/dL POC Glucose (mg/dL) 141 H (70-110) mg/dL C-Reactive Protein (<1.0) mg/dL Microbiology - Last 24 Hours (Table) 07/08/24 12:13 Blood Culture - Final Blood 07/05/24 23:33 Blood Culture Gram Stain - Final Blood Blood Culture - Final Enterococcus faecium Molecular ID Assessment and Plan Plan: Acute on chronic hypoxemic/hypercapnic respiratory failure with significant respiratory acidosis based on the blood gas was done on 07/07/2024. Respiratory failure, multifactorial, the patient is morbidly obese. She may have, a component of COPD/CHF. In addition, the patient has a masslike opacity in the right lower lobe, rule out a consolidating mass/malignancy/pneumonia. Echocardiogram showed a preserved LV function. Nevertheless, the patient has moderate severe pulm hypertension with mild aortic stenosis. The patient is significantly improved and the patient was weaned down to 3 L of O2 by nasal cannula. Marked improvement in respiratory status. Remains on a combination of diuretics including Lasix, Aldactone and Diamox. Overnight, she continues to use the BiPAP. Sepsis secondary to enterococcal septicemia and the blood cultures were negative. The patient is currently on a combination of cefepime and daptomycin. Altered mentation/encephalopathy secondary to above, and the patient has a component of CO2 narcosis. Clinically, the follow-up blood gas showed improvement in the acid-base status. Awake and alert and communicating. She is awake x 3. 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 Blood cultures positive for Enterococcus faecium. Source is right lower extremity cellulitis/wound Bilateral lower extremity infected wound. The wound is wet and there is purule nt discharge ongoing. The patient also has a stage IV heel ulcer. Diabetes mellitus. Gastroesophageal reflux disease. Hyperlipidemia. Hypothyroidism. Morbid obesity Plan: Repeat chest x-ray in the morning in regards to the right midlung consolidation. Currently off cefepime. BiPAP overnight and oxygen at 3 L during the day Encephalopathy and CO2 narcosis has recovered. Blood gases showed improvement in acid-base status Continue BiPAP therapy at the same setting of 12/5 cm of water on and off during the day to be alternated by oxygen 3 L of oxygen by nasal cannula Continue IV Lasix Continue Aldactone Continue Diamox Blood cultures positive for Enterococcus faecium and the patient is currently on daptomycin. ID is on the case. Keep IV fluids at KVO Continue daptomycin Continue wound care to the lower extremities and the patient has a Opticell silver in addition to wrapping Monitor respiratory status The patient has a full CODE STATUS. Time with Patient: Greater than 30
--- NOTE | 2024-07-14 14:27 | P.PN ---
Subjective Progress Note Date: 07/14/24 Principal diagnosis: Reason for follow-up with lower extremity ulcer and cellulitis Patient is a 73-year-old female with a past medical history significant for COPD heart failure diabetes mellitus reflux hyperlipidemia presenting to the hospital for evaluation of a fall that happened the day of presentation to the hospital patient accidentally rolled off the couch onto the floor and was too weak to get herself up, noticed to have bilateral extremity ulcer and cellulitis prompted this consultation. On today's evaluation that is 07/14/2024, patient did not have any fever and remains to be on the BiPAP with 40% FiO2, the patient lethargic though arousable and elevated good historian no vomiting diarrhea or any other changes reported. Patient did have vitamin of 10.8, creatinine 0.84 Objective - Vital Signs Vital signs: Vital Signs Temp 98.9 F 07/14/24 11:37 Pulse 77 07/14/24 11:37 Resp 20 07/14/24 11:37 BP 109/54 07/14/24 11:37 Pulse Ox 98 07/14/24 11:37 FiO2 40 07/14/24 11:54 Intake & Output 07/13/24 07/14/24 07/14/24 18:59 06:59 18:59 Intake Total 520 231.333 10 Output Total 1120 725 175 Balance -600 -493.667 -165 Weight 105.5 kg Intake: IV 10 Invasive Line 7 10 Intake, IV Titration 111.333 Amount Diltiazem 125 mg In 111.333 Sodium Chloride 0.9% 100 ml @ 5 MG/HR 5 mls/hr IV .Q24H [facility] Rx#:[id number] Oral 520 120 Output: Urine 1120 725 175 Uretheral (Rock) 175 Other: Voiding Method Indwelling Catheter Indwelling Catheter Indwelling Catheter # Bowel Movements 0 - Exam GENERAL DESCRIPTION: An elderly female lying in bed in no distress RESPIRATORY SYSTEM: Unlabored breathing , decreased breath sounds at bases HEART: S1 S2 regular rate and rhythm , ABDOMEN: Soft , no tenderness EXTREMITIES: Bilateral lower extremity currently wrapped with an Blue wrap she did have wound on the right heel with necrotic base but no surrounding redness or drainage - Labs CBC & Chem 7: 07/14/24 05:56 07/14/24 05:56 Labs: Abnormal Lab Results - Last 24 Hours (Table) 07/13/24 07/13/24 07/14/24 Range/Units 16:15 19:49 05:56 WBC (3.8-10.6) k/uL MCHC (31.0-37.0) g/dL ESR (0-30) mm/Hr Sodium 132 L (137-145) mmol/L Chloride 91 L (98-107) mmol/L Carbon Dioxide 35 H (22-30) mmol/L BUN 32 H (7-17) mg/dL Glucose 140 H (74-99) mg/dL POC Glucose (mg/dL) 129 H 129 H (70-110) mg/dL C-Reactive Protein 7.7 H (<1.0) mg/dL 07/14/24 07/14/24 07/14/24 Range/Units 05:56 05:56 11:38 WBC 10.9 H (3.8-10.6) k/uL MCHC 29.7 L (31.0-37.0) g/dL ESR 90 H (0-30) mm/Hr Sodium (137-145) mmol/L Chloride (98-107) mmol/L Carbon Dioxide (22-30) mmol/L BUN (7-17) mg/dL Glucose (74-99) mg/dL POC Glucose (mg/dL) 141 H 120 H (70-110) mg/dL C-Reactive Protein (<1.0) mg/dL Microbiology - Last 24 Hours (Table) 07/08/24 12:13 Blood Culture - Final Blood 07/05/24 23:33 Blood Culture Gram Stain - Final Blood Blood Culture - Final Enterococcus faecium Molecular ID Assessment and Plan (1) Leg ulcer, left Current Visit: Yes Status: Acute Code(s): L97.929 - NON-PRS CHRONIC ULC UNSP PRT OF L LOW LEG W UNSP SEVERITY SNOMED Code(s): 24134964 (2) Left leg cellulitis Current Visit: Yes Status: Acute Code(s): L03.116 - CELLULITIS OF LEFT LOWER LIMB SNOMED Code(s): 04012005821234252 (3) Penicillin allergy Current Visit: Yes Status: Acute Code(s): Z88.0 - ALLERGY STATUS TO PENICILLIN SNOMED Code(s): 33146242 (4) Bacteremia Current Visit: Yes Status: Acute Code(s): R78.81 - BACTEREMIA SNOMED Code(s): 4663223 Plan: 1patient with diffuse swelling of bilateral lower extremity with superficial solution to the left leg likely venous stasis ulcer with secondary cellulitis likely from gram-positive skin neida. 2patient with a penicillin allergy that will limit the number of antibiotics safe to use. 3local wound care to the left leg with dry Aquacel dressing and Blue wrap to keep the swelling down, and apply Santyl to the wound to the right heel change daily. 4patient did have resolution of the fever and white count is normal however the patient blood culture repeat came back positive highly clinically suspicious for possible endovascular source such as endocarditis 5TEE was discussed with the cardiology keeping in mind patient current respiratory status want to be to stabilize before going for HANNA 6patient is currently being treated with daptomycin and gentamicin for synergy, and monitor clinical course closely Dictation was produced using [employer] dictation software. please excuse any grammatical, word or spelling errors. Time with Patient: Less than 30
[2024-07-14 16:19] LABS: Glucose,Whole Blood 104 mg/dL (70-110)
[2024-07-14 20:20] LABS: Glucose,Whole Blood 149 mg/dL (70-110)
[2024-07-14] MEDS: ALBUTEROL NEBULIZED 2.5 MG/3 ML INHALATION PRN (21:15)
--- NOTE | 2024-07-14 23:18 | P.PN ---
Subjective Progress Note Date: 07/14/24 HISTORY OF PRESENT ILLNESS: This is a 73-year-old male with a past medical history significant for COPD, congestive heart failure, hypertension, and hyperlipidemia. 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 We have been asked to see the patient in consultation for congestive heart failure. Patient examined at the bedside. Patient presented to the hospital with a chief complaint of increased lower extremity swelling and shortness of breath. Patient was found to be in CHF and was started on IV Lasix. Patient currently denies any chest pain or pressure. Vital signs are stable. DIAGNOSTICS: - EKG reveals sinus mechanism with no signs of acute ischemia - Chest xray correlate for suspected CHF exacerbation. Additionally there is a 4.7 cm masslike consolidation in the right mid to lower lung. Underlying mass/malignancy is not excluded. - Laboratory data: WBC 11.22. Hemoglobin 11.3. Platelet count 185. Sodium 141. Potassium 4.3. BUN 17. Creatinine 0.9. - Current home cardiac medications include rosuvastatin 20 mg daily, enalapril 20 mg daily, and Lasix 40 mg in the morning and 20 mg in the afternoon. 07/06/2024 Patient examined this morning at the bedside. Patient apparently became hypotensive overnight with blood pressures in the 70s and 80s. Her Lasix was discontinued. However she was continued on lisinopril per primary medicine. Systolic blood pressure this morning is in the 90s. July 07, 2024 The patient was seen this morning she still have some change in mental status and she is somewhat lethargic and possibly dehydrated. She is getting a workup for possible sepsis. Hemodynamically she is stable now. The echo is as described above showed normal LV systolic function with mild aortic stenosis. The physical examination is remarkable for regular rhythm with a systolic murmur at the right and left upper sternal border with severe bilateral lower extremi ties chronic skin changes and chronic edema July 08, 2024 The patient was seen and evaluated this morning with apparently she was transferred from 6 N. to 3 S.. She still have change in mental status currently under workup. Hemodynamically she is stable. She still have bilateral lower extremities edema. I am going to give the patient only 1 dose of Lasix IV and continue monitor the kidney function and electrolytes. She is under an investigation for right upper lobe mass with possible need for PET scan. The mass was seen on the CT scan as well as chest x-ray. The physical examination i s remarkable for change in mental status with regular rate and rhythm and mild sinus tachycardia and diminished breathing sounds bilaterally which is still hypoxic requiring BiPAP at 40% 07/09/2024 Patient has been on BiPAP, severely hypercapnic with retention of bicarb with metabolic encephalopathy Bicarb 44, BUN 29, creatinine 0.5, Hb 10.6 07/10/2024 Patient remains somnolent on BiPAP She is on IV antibiotics BP 123/69, heart rate 76, Echo from this admission shows an EF of 55%, moderate concentric LVH, moderate to severe pulmonary hypertension with RVSP of 54 mmHg, 07/11/2024 Patient examined this morning at the bedside. Patient remains confused. She is currently on BiPAP. BUN 28. Creatinine 0.68. 07/12/2024 Patient seen and examined at bedside this a.m. Patient was transferred to ICU because of confusion and delirium. For this patient received Precedex. Confusion delirium is most likely because of CO2 retention. 07/13/2024 Patient is still on 4 L nasal cannula supplemental oxygen, very drowsy, with hypoventilation related hypercapnia 07/14/2024 It was noted that patient went into atrial fibrillation yesterday. For this she was started on Cardizem drip and briefly thereafter she converted out of atrial fibrillation. She was transfer out of ICU to telemetry floor yesterday. BUN 32, creatinine 0.8 Negative fluid balance of 1.5 L yesterday. PHYSICAL EXAM: VITAL SIGNS: Reviewed. GENERAL: Well-developed in no acute distress. HEENT: Head is normocephalic. Pupils are equal, round. Sclerae anicteric. Mucous membranes of the mouth are moist. Neck supple. No JVD or thyromegaly LUNGS: Respirations even and unlabored. Lungs essentially clear to auscultation bilaterally. HEART: Regular rate and rhythm. S1 and S2 heard. EXTREMITIES: Normal range of motion. No clubbing or cyanosis. Peripheral pulses intact. Bilateral lower extremity edema with evidence of cellulitis ASSESSMENT: Bilateral lower extremity cellulitis Acute on chronic heart failure with preserved EF Metabolic encephalopathy due to hypercapnia Acute on chronic hypoxic and hypercapnic respiratory failure Severe COPD Right lung mass, pulmonary following Hypertension, Hyperlipidemia Morbid obesity: BMI 46.1 PLAN: Blood cultures from 07/05/2024 grew Enterococcus however repeat blood cultures from from 07/07 and 07/08 have not shown any growth so far. Because of poor respiratory status and clearance of blood cultures with antibiotics, HANNA procedure seems to be more risky as compared to the benefit may offer rest. Continue IV Lasix 40 mg twice daily Aldactone 25 mg daily Consider Diamox for metabolic alkalosis and CO2 retention Daily weights, accurate intake and output, and monitoring of kidney function Prognosis is guarded Objective - Vital Signs Vital signs: Vital Signs Temp 98.1 F 07/14/24 20:00 Pulse 84 07/14/24 21:26 Resp 18 07/14/24 20:00 BP 110/53 07/14/24 20:00 Pulse Ox 95 07/14/24 20:00 FiO2 40 07/14/24 16:08 Intake & Output 07/14/24 07/14/24 07/15/24 06:59 18:59 06:59 Intake Total 231.333 253 278.5 Output Total 1175 175 Balance -943.667 78 278.5 Weight 105.5 kg Intake: IV 10 Invasive Line 7 10 Intake, IV Titration 111.333 125 38.5 Amount Diltiazem 125 mg In 111.333 125 38.5 Sodium Chloride 0.9% 100 ml @ 5 MG/HR 5 mls/hr IV .Q24H [facility] Rx#:[id number] Oral 120 118 240 Output: Urine 1175 175 Uretheral (Rock) 175 Other: Voiding Method Indwelling Catheter Indwelling Catheter Indwelling Catheter - Labs CBC & Chem 7: 07/14/24 05:56 07/14/24 05:56 Labs: Abnormal Lab Results - Last 24 Hours (Table) 07/14/24 07/14/24 07/14/24 Range/Units 05:56 05:56 05:56 WBC 10.9 H (3.8-10.6) k/uL MCHC 29.7 L (31.0-37.0) g/dL ESR 90 H (0-30) mm/Hr Sodium 132 L (137-145) mmol/L Chloride 91 L (98-107) mmol/L Carbon Dioxide 35 H (22-30) mmol/L BUN 32 H (7-17) mg/dL Glucose 140 H (74-99) mg/dL POC Glucose (mg/dL) 141 H (70-110) mg/dL C-Reactive Protein 7.7 H (<1.0) mg/dL 07/14/24 07/14/24 Range/Units 11:38 20:18 WBC (3.8-10.6) k/uL MCHC (31.0-37.0) g/dL ESR (0-30) mm/Hr Sodium (137-145) mmol/L Chloride (98-107) mmol/L Carbon Dioxide (22-30) mmol/L BUN (7-17) mg/dL Glucose (74-99) mg/dL POC Glucose (mg/dL) 120 H 149 H (70-110) mg/dL C-Reactive Protein (<1.0) mg/dL Microbiology - Last 24 Hours (Table) 07/08/24 12:13 Blood Culture - Final Blood
[2024-07-15 06:12] LABS: Glucose,Whole Blood 151 mg/dL (70-110)
[2024-07-15 07:19] LABS: Basophils # (A) 0.1 k/uL (0-0.2); Basophils % (A) 1 %; Eosinophils # (A) 0.1 k/uL (0-0.7); Eosinophils % (A) 1 %; HCT 37.2 % (34.0-46.0); HGB 10.7 gm/dL (11.4-16.0); Hypochromasia Marked; Lymphocytes # (A) 1.6 k/uL (1.0-4.8); Lymphocytes % (A) 20 %; MCH 27.7 pg (25.0-35.0); MCHC 28.8 g/dL (31.0-37.0); MCV 96.4 fL (80.0-100.0); Mean Platelet Volume 9.4; Monocytes # (A) 0.5 k/uL (0-1.0); Monocytes % (A) 6 %; Neutrophils # (A) 5.9 k/uL (1.3-7.7); Neutrophils % (A) 71 %; Platelet Count 206 k/uL (150-450); RBC 3.86 m/uL (3.80-5.40); RDW 14.7 % (11.5-15.5); WBC 8.3 k/uL (3.8-10.6)
[2024-07-15 07:28] LABS: ALT 31 U/L (4-34); AST 80 U/L (14-36); African American GFR (CKD) >90 (>60 ml/min/1.73 sqM); Albumin 2.8 g/dL (3.5-5.0); Alkaline Phosphatase 63 U/L (38-126); Anion Gap 3 mmol/L; Blood Urea Nitrogen 30 mg/dL (7-17); Calcium 8.8 mg/dL (8.4-10.2); Carbon Dioxide 37 mmol/L (22-30); Chloride 91 mmol/L (98-107); Glucose 140 mg/dL (74-99); Non-African American GFR(CKD) >90 (>60 ml/min/1.73 sqM); Potassium 4.2 mmol/L (3.5-5.1); Sodium 131 mmol/L (137-145); Total Bilirubin 0.4 mg/dL (0.2-1.3); Total Protein 5.5 g/dL (6.3-8.2)
--- NOTE | 2024-07-15 09:54 | XR ---
EXAMINATION TYPE: XR chest 1V DATE OF EXAM: 07/15/2024 9:26 AM COMPARISON: 07/13/2024 CLINICAL INDICATION: Female, 73 years old with history of pneumonia, TECHNIQUE: XR chest 1V view(s) obtained. FINDINGS: The heart size is enlarged. The pulmonary vasculature is normal. Right midlung infiltrate or mass is present. Correlate for pneumonia. Follow-up to clearing is recomm ended. Mild infiltrates of the right lower lobe. There may be some silhouetting left diaphragm. Left basilar atelectasis should be considered. IMPRESSION: 1. Right perihilar infiltrate or mass. Follow-up to clearing is recommended. Correlate for pneumonia continued follow-up recommended. 2. Bibasilar infiltrates. Correlate for atelectasis [facility], , 07/15/2024 9:52 AM
--- NOTE | 2024-07-15 10:00 | P.PN ---
Subjective Progress Note Date: 07/15/24 Ajay Robertson, is a 73-year-old female who presented to [facility] emergency room with a chief complaint of worsening shortness of breath, additionally patient was found on the floor in her house, she stated that she fell while asleep and was not able to stand up. She was evaluated in the emergency room vital examination on presentation revealed a temperature of 98.3 pulse 89 respiration 20 blood pressure 115/73 pulse ox 95% on 5 L nasal cannula Laboratory data revealed a white blood count of 11.4 hemoglobin 12.7 platelet count 190 BUN 20 creatinine 0.64 influenza A and B RSV and COVID-19 PCR were all negative Testing in the emergency room revealed chest x-ray revealed pulmonary congestion suggestive of congestive heart failure exacerbation and a new 4.7 masslike consolidation in the right mid to lower lung Patient was admitted to medical floor for further evaluation and treatment Past medical history is significant for history of hypertension, history of hyperlipidemia, history of hypothyroidism, history of diabetes mellitus, history of COPD, history of congestive heart failure, history of morbid obesity, history of recurrent episodes of bilateral lower extremity cellulitis. On review of systems patient is alert and oriented x 3 in no apparent distress, she is complaining of generalized body ache, she is complaining of shortness of breath, otherwise she denies any complaints there is no fever or chills no headache or dizziness no chest pain, she has occasional cough no nausea or vomiting no abdominal pain no diarrhea and no urinary symptoms. On 07/05/2024 patient is alert and oriented x 3. Awaiting consulting providers input. Patient remains on IV Lasix. CT of the chest has been completed. At this time patient denies chest pain. Patient denies nausea vomiting or diarrhea. Patient denies any urinary burning or frequency On 07/06/2024 patient is alert and oriented x 3. Patient remains on IV Lasix and IV antibiotics. Cardiology pulmonary and infectious disease services are following. Current vital signs temp 98.1, heart rate 67, respiratory rate 15, blood pressure 96/53 with a pulse ox of 93% on 4 L. Patient denies chest pain or shortness of breath. Patient denies nausea vomiting or diarrhea. Patient denies any urinary burning or frequency. On 07/07/2024 patient was seen and examined on the telemetry floor she is somnolent arousable in no apparent distress, yesterday patient was agitated and aggressive with medical staff, Seroquel was added to her medication regimen, however today she is more somnolent, Seroquel will be changed to as needed only. There is no fever or chills no headache or dizziness no chest pain patient still has shortness of breath with any activity and cough no nausea or vomiting no abdominal pain no diarrhea no urinary symptoms. On 07/08/2024 patient was seen and examined on the telemetry floor, she is so mnolent responsive in no apparent distress, currently she is maintained on BiPAP, she had episodes of agitation through the night, she was pulling off her IV in the BiPAP, she received 1 dose of IM Haldol, she is maintained on soft restraints at this time, her vital examination reveals a temperature of 99.8 pulse 109 respiration 22 pulse ox 95% on BiPAP FiO2 40% she is maintained on IV daptomycin infectious disease are following On 07/09/2024 patient was seen and examined on the telemetry floor, she is somnolent responsive in no apparent distress, she is still having episodes of agitation requiring as needed Seroquel use, otherwise she is improving gradually, there is no fever or chills no headache or dizziness no chest pain, she has shortness of breath with any activity, no nausea or vomiting no abdominal pain no diarrhea and no urinary symptoms, she remains on IV antibiotics, infectious disease are following, also cardiology and pulmonary are following On 07/10/2024 patient remains somnolent on BiPAP. Pulmonary and infectious disease services following. Patient remains on IV antibiotics. Patient remains on IV Diamox. Current vital signs temp 99.8, heart rate 78, respiratory rate 18, blood pressure 123/69 with a pulse ox of 96% on BiPAP with an FiO2 of 40. On 07/11/2024 patient was seen and examined on the medical floor, she is alert responsive in no apparent distress, she was maintained on BiPAP through the night, there is no fever or chills no headache or dizziness no chest pain no shortness of breath at rest, she has occasional cough and severe shortness of breath with any activity no nausea or vomiting no abdominal pain no diarrhea no urinary symptoms. On 07/12/2024 patient is alert but remains confused. Patient remains in the ICU. Patient was on BiPAP for 6 hours. Patient did require Precedex for increased agitation. Patient remains on IV cefepime and Diamox. Along with scheduled Bumex. Colace added for constipation. Patient denies chest pain. Patient denies nausea vomiting or diarrhea. Patient denies any urinary burning frequency On 07/13/2024 patient is more alert today. Per nursing staff plans for HANNA due to bacteremia. Current vital signs temp 99.0, heart rate 92, respiratory rate 25, blood pressure 125/69 with a pulse ox of 97% on 6 L. Patient denies chest pain. Patient denies nausea vomiting or diarrhea. Patient denies any urinary burning or frequency. Patient remains on Diamox and IV Maxipime. On 07/14/2024 patient was seen and examined on the telemetry floor, she is alert and oriented x 3 in no apparent distress, during the night patient required BiPAP, she had an episode of agitation and she received IM Haldol, yesterday e vening patient had an episode of atrial fibrillation with rapid ventricular response, she received IV Cardizem, and her rhythm converted back to normal sinus rhythm. Otherwise no issues since yesterday, patient denies any chest pain, there is no shortness of breath at rest, no fever or chills no headache or dizziness no palpitation, no nausea or vomiting no abdominal pain no diarrhea and no urinary symptoms. On 07/15/2024 patient is alert and oriented x 3. Patient's mentation improved. Patient denies chest pain or shortness of breath. Patient denies nausea vomiting or diarrhea. Patient denies any urinary burning or frequency. Current vital signs temp 97.8, heart 94, respiratory 20, blood pressure 122/58 with a pulse ox of 93% on 3 L. Patient remains on daptomycin and gentamicin Objective - Vital Signs Vital signs: Vital Signs Temp 97.8 F 07/15/24 07:35 Pulse 94 07/15/24 07:35 Resp 20 07/15/24 07:35 BP 122/58 07/15/24 07:35 Pulse Ox 93 L 07/15/24 07:35 FiO2 40 07/15/24 08:42 Intake & Output 07/14/24 07/15/24 07/15/24 18:59 06:59 18:59 Intake Total 253 278.5 10 Output Total 175 2075 700 Balance 78 -1796.5 -690 Intake: IV 10 10 Invasive Line 7 10 Invasive Line 8 10 Intake, IV Titration 125 38.5 Amount Diltiazem 125 mg In 125 38.5 Sodium Chloride 0.9% 100 ml @ 5 MG/HR 5 mls/hr IV .Q24H [facility] Rx#:[id number] Oral 118 240 Output: Urine 175 2075 700 Uretheral (Rock) 175 Other: Voiding Method Indwelling Catheter Indwelling Catheter Indwelling Catheter # Voids 1 - Exam In general patient is alert and oriented x 3 in no distress HEENT head normocephalic and atraumatic Neck is supple no JVD no goiter no lymphadenopathy no carotid bruit Chest examination reveals a scattered crackles bilaterally no wheezing Cardiac exam reveals regular heart sounds S1 and S2 no gallops no murmurs Abdomen is soft nontender no organomegaly with normal bowel sounds Extremity exam reveals 3+ edema with erythema and chronic stasis changes, multiple small ulceration with scabbing no cyanosis or clubbing Neurological examination reveals no gross focal deficits - Labs CBC & Chem 7: 07/15/24 06:27 07/15/24 06:27 Labs: Abnormal Lab Results - Last 24 Hours (Table) 07/14/24 07/14/24 07/14/24 Range/Units 05:56 11:38 20:18 Hgb (11.4-16.0) gm/dL MCHC (31.0-37.0) g/dL ESR 90 H (0-30) mm/Hr Sodium (137-145) mmol/L Chloride (98-107) mmol/L Carbon Dioxide (22-30) mmol/L BUN (7-17) mg/dL Glucose (74-99) mg/dL POC Glucose (mg/dL) 120 H 149 H (70-110) mg/dL AST (14-36) U/L Total Protein (6.3-8.2) g/dL Albumin (3.5-5.0) g/dL 07/15/24 07/15/24 07/15/24 Range/Units 06:11 06:27 06:27 Hgb 10.7 L (11.4-16.0) gm/dL MCHC 28.8 L (31.0-37.0) g/dL ESR (0-30) mm/Hr Sodium 131 L (137-145) mmol/L Chloride 91 L (98-107) mmol/L Carbon Dioxide 37 H (22-30) mmol/L BUN 30 H (7-17) mg/dL Glucose 140 H (74-99) mg/dL POC Glucose (mg/dL) 151 H (70-110) mg/dL AST 80 H (14-36) U/L Total Protein 5.5 L (6.3-8.2) g/dL Albumin 2.8 L (3.5-5.0) g/dL Assessment and Plan Plan: Acute congestive heart failure exacerbation Bacteremia New 4.7 cm masslike consolidation opacity in the right midlung Fall at home, with generalized body pain Bilateral lower extremity cellulitis, with multiple open ulcers Underlying history of hypertension Underlying history of hyperlipidemia Underlying history of diabetes mellitus Underlying history of COPD Underlying history of morbid obesity At this time patient was admitted to telemetry floor Patient has been transferred out of the intensive care unit Remains on IV antibiotics Continue BiPAP Consultation for pulmonary, infectious disease, and cardiology initiated Will follow closely
--- NOTE | 2024-07-15 10:57 | P.PN ---
Subjective Progress Note Date: 07/15/24 This is a 73-year-old obese white female today seen in room 620. She came to the hospital with 1 day of shortness of breath, leg swelling, and cough. Her viral screen was negative. The patient has smoked for about 40 to 45 years. The only medicine she takes at home for her breathing is albuterol. Her procalcitonin level was 0.05. Chest x-ray showed some fluid overload, but also showed a possible mass in the right midlung, which could be either an actual mass or pseudotumor. A CT scan was ordered. It does show a 7.1 lobulated mass in the right lung. A PET scan was recommended. Currently, the patient is on 4 L of oxygen. No fluids are ordered. She is getting Lasix 40 mg every 8 hours. She also has an updraft ordered. White count 1.22, hemoglobin 11.3, macro 39.1, platelet count 185,000. Coags are normal. Sodium 141, potassium 4.3, chlorides 94, CO2 39, BUN 17.5, creatinine 0.9. Glucose 169. Calcium 8.6. Troponin was negative. N-terminal proBNP was elevated at 1830. Procalcitonin level was 0.05. Urine is negative. Viral screen was negative. Chest x-ray was consistent with fluid overload/CHF. Cardiology has seen the patient. The patient is seen today July 06, 2024 in follow-up on the regular medical floor. She is currently sitting up in bed. Awake and alert in no acute distress. She is maintaining O2 saturations in the 90s on 4 L/min per nasal cannula. She is receiving normal saline at 75 mL/h. White count 10.2. Hemoglobin 11.5. Platelets 198. Sodium 134. Potassium 4.5. Bicarb 38. BUN 29. Creatinine 0.83. Glucose 132. She remains on cefazolin. IV diuretics were discontinued. The patient is seen today July 07, 2024 in follow-up on the regular medical floor. She is currently resting comfortably in bed. Awake and alert in no acute distress. Maintaining good O2 saturations in the 90s on 5 L/min per nasal cannula. She is receiving normal saline at 50 mL/h. Her blood culture isshowing Enterococcus faecium. She is currently on daptomycin. Remains on bronchodilators. 1.2. Platelets 204. Sodium 144. Potassium 5.2. Bicarb 39. BUN 24. Creatinine 0.6. Glucose 153. Progress note dated July 08, 2024. The patient was moved down to the third floor, sometime yesterday or last night, for respiratory distress. I was never notified. The patient was seen today in room 360. She was on BiPAP, with settings of 12/5, and 40%. She was getting saline at 20 cc an hour. A blood gas was done on 44% oxygen showing a pO2 of 84, pCO2 of 91, pH is 7.29. Her blood cultures were positive for Enterococcus faecium. For that reason, she is on daptomycin. Current labs include a white count 7.8, hemoglobin 11.2, hematocrit 38.3, and a platelet count of 173,000. Sodium 139, potassium 4.5, chlorides 93, CO2 40, BUN 29, and creatinine 0.58. Glucose 74. Albumin is 3. Chest x-ray done yesterday, continues to show me in addition, there is diffuse changes, consistent with fluid overload and/or pneumonia. On 07/09/2024, the patient is being seen for a follow-up. Morbidly obese female patient was hospitalized for an acute on top of chronic hypoxic and hypercapnic respiratory failure. At the time of my evaluation this morning, the patient was started on a BiPAP at a pressure of 12/5 with an FiO2 of 40%. I took the patient off the BiPAP and put her on 4 L of oxygen by nasal cannula. Subsequent blood gases showed a pH of 7.34 with pCO2 of 86 and pO2 162. The patient has a mass like consolidation involving the right lower lobe. This could be pneumonia versus malignancy. At the same time, the patient is septic and the source of sepsis is a wound infection and the patient has active wet wound with purulent foul-smelling material covering the wound base and the right lower extremity above the lateral malleolus. Blood culture was positive for Enterococcus faecalis and based on that, the patient has been maintained on a combination of daptomycin and the patient is also on IV cefepime. Repeat chest x-ray was done and it showed a right lower lobe masslike opacity that remains unchanged compared to the previous x-rays in addition to mild cardiomegaly and pulm vessel congestion. The patient is sitting daily diuresis. The patient is producing excellent urine output and the fluid balance is -2.6 L over the past 24 hours. The white cell count is 7.1 with a heme of 10.6 and a platelet count of 151. Serum bicarb is 44 with BUN of 29 and a creatinine of 0.5. Sodium is at 140. She remains encephalopathic. She is arousable. She has tolerated the BiPAP reasonably well. On 07/10/2024, the patient is being seen for a follow-up. The patient remains on BiPAP and she seems to be tolerating the BiPAP reasonably well. This morning, the patient is on a BiPAP at a pressure of 12 over 5 cm of water with an FiO2 of 40% which is essentially the same setting as yesterday. She is arousable and she is able to communicate. At times confused. I took this patient off the BiPAP and put her on oxygen at 5 L/min nasal cannula. Subsequent blood gases showed a pH of 7.33 with a pCO2 of 78 and pO2 of 129. She is still lethargic and weak. Denies having any chest pain. She does have swelling in lower extremities bilaterally. She was given IV Lasix yesterday and her fluid balance is -3.1 L over the past 24 hours. She remains on Bumex 1 mg p.o. daily. She is also on Diamox 5 mg IV every 12 hours. The blood work from today shows a BUN of 24 with a creatinine of 0.7. Serum bicarb is at 36 and a sodium levels at 140. The white cell count is 7.9 with a hemoglobin of 11.4 and a platelet count of 164. The follow-up chest x-ray from yesterday was still showing a masslike consolidation/opacity in the right midlung/right lower lobe area. The patient also has some ongoing mild cardiomegaly. Wound care is being applied. ID is on the case. The patient remains on daptomycin and IV cefepime. On 07/11/2024, the patient is being seen for a follow-up. Remains quite lethargic and continues to have diminished level of consciousness. She remains on a BiPAP at her same setting of 12 over 5 cm of water. Repeat blood gas was done with an FiO2 40% showed a pH of 7.36 with a pCO2 of 71 and pO2 of 83. The patient is however arousable. She continues to be treated for a extensive right lower extremity wound infection with septicemia the patient had Enterococcus faecium and she remains essentially same antibiotic coverage including combination of cefepime and daptomycin. On today's blood work, the white cell count is 7.4 with a hemoglobin 10.9 and a platelet count of 174. The sodium level is at 139, BUN is 28 with a creatinine of 0.6. Potassium is at 4 and a serum bicarb is at 39. She is on Diamox 500 mg IV every 12 hours. She is on Bumex 1 mg p.o. daily. Rest of the medications are essentially unchanged. No significant agitation. 07/12/2024, the patient is being seen for a follow-up. On today's evaluation, the patient is arousable and she is able to communicate. She does have some background encephalopathy and confusion. She is complaining of pain involving lower extremities the patient has extensive wounds in lower extremities bilaterally involving the lateral aspect of the lower extremities bilaterally above the ankle. The area was inspected today and the wound base is e rythematous and less purulence. No foul drainage at this point in time. The patient was taken off the BiPAP this morning. The patient was placed on oxygen and she is currently at 60s over the nasal cannula. Repeat blood gas was done and the patient showed a pH of 7.35 with a pCO2 of 65 and pO2 of 52 and this was on FiO2 of 36%. The follow-up chest x-ray from today shows a masslike consolidation in the right lung which seems to be less dense and more hazy. There is also cardiomegaly and pulm vascular congestion with mild pulm vascular congestion. The white cell count is at 9, hemoglobin is 10.7 and a platelet count of 176. BUN is 34 with a creatinine of 0.6 and a sodium level is at 137. The patient is receiving Diamox to 50 mg p.o. daily. The patient remains on Lasix 40 mg IV push every 12 hours. The fluid balance is -1.7 L over the past 24 hours. The patient remains on broad-spectrum antibiotics. The patient is currently on cefepime and daptomycin. Rest of the medications remain unchanged. She remains on Aldactone 25 mg p.o. daily and trazodone at bedtime 50 mg nightly. 07/13/2024, the patient is being seen for a follow-up. Patient is awake and alert and communicating. Denies having any significant complaints other than pain in her back and lower extremities bilaterally. Neurologically, much more awake and alert and communicating. No signs of any CO2 narcosis. Remains on IV Lasix. Remains on Aldactone and Diamox. Most recent blood gas from yesterday showed marked improvement respiratory status. Current serum bicarb level is at 32, sodium is at 135 with a potassium level 3.9. The white cell count of 3.5 with a hemoglobin of 11 and a platelet count of 172. She is utilizing the BiPAP only overnight. Patient has adequate urine output. Denies having any other complaints. Tolerating the oral intake. No reported aspiration. Chest x-ray from yesterday still showing cardiomegaly and pulm vessel congestion in addition to a vague right midlung opacity that is being followed up by serial chest x- rays. She remains on a combination of cefepime and daptomycin. ID is on the case. She is still on a combination of Desyrel and Seroquel. 07/14/2024, the patient is being seen for a follow-up. Overnight, the patient was utilizing her BiPAP at a pressure of 12 over 5 cm of water. This morning, the patient is still on a BiPAP. She is arousable and awake. No significant events overnight. No chest pain. No focal neurological deficits. Remains on the same regimen of antibiotics and the patient remains on daptomycin. ID is on the case. She remains on diuretics. She is on IV Lasix 40 mg every 12 hours and Aldactone 25 mg p.o. daily. She is also on Diamox to 50 mg p.o. on a daily basis. Sodium levels at 132, potassium level is at 4.1, BUN 32 with a creatinine 0.8. The white cell count of 10.9 with a hemoglobin 12 and a platelet count of 206. She was transferred out of the intensive care unit yesterday. No fever. No chills. She is still undergoing wound care to her lower extremity wounds and ID is on the case. 07/15/2024, the patient is being seen for a follow-up. She did encounter some episodes of confusion yesterday. This morning she is on a BiPAP and I took her off the BiPAP and put her on 3 L of oxygen by nasal cannula. She seems to be much more appropriate. She remains on IV Lasix. She is also on Aldactone. Fluid balance is -1.7 L over the past 24 hours. No specific complaints. Antibiotics remain daptomycin. The white cell count is at 8.3, hemoglobin is 10 and platelet count of 206. BUN is at 30 with a creatinine of 0.600 serum bicarb level is at 37. No new complaints otherwise for now. Objective - Vital Signs Vital signs: Vital Signs Temp 97.8 F 07/15/24 07:35 Pulse 94 07/15/24 07:35 Resp 20 07/15/24 07:35 BP 122/58 07/15/24 07:35 Pulse Ox 93 L 07/15/24 07:35 FiO2 40 07/15/24 08:42 Intake & Output 07/14/24 07/15/24 07/15/24 18:59 06:59 18:59 Intake Total 253 278.5 10 Output Total 175 2075 Balance 78 -1796.5 10 Intake: IV 10 10 Invasive Line 7 10 Invasive Line 8 10 Intake, IV Titration 125 38.5 Amount Diltiazem 125 mg In 125 38.5 Sodium Chloride 0.9% 100 ml @ 5 MG/HR 5 mls/hr IV .Q24H [facility] Rx#:[id number] Oral 118 240 Output: Urine 175 2075 Uretheral (Rock) 175 Other: Voiding Method Indwelling Catheter Indwelling Catheter Indwelling Catheter # Voids 1 - Exam GENERAL EXAM: Alert, pleasant 73-year-old female, resting in bed, o lethargic and sleepy, cur on a BiPAP rently on 3 L of oxygen by nasal cannula. On and off, the patient is still utilizing the BiPAP. HEAD: Normocephalic. EYES: Normal reaction of pupils, equal size. NOSE: Clear with pink turbinates. THROAT: No erythema or exudates. NECK: No masses, no JVD. CHEST: No chest wall deformity. LUNGS: Equal air entry with no crackles, wheeze, rhonchi or dullness. CVS: S1 and S2 normal with no audible murmur, regular rhythm. ABDOMEN: No hepatosplenomegaly, normal bowel sounds, no guarding or rigidity. SPINE: No scoliosis or deformity SKIN: No rashes. Chronic venous stasis of the lower extremities. Purulent bilateral lower extremity ulcer with purulent material covering the base of the ulcer on the right lower extremity and stage IV heel ulcer in the right foot. CENTRAL NERVOUS SYSTEM: No focal deficits, tone is normal in all 4 extremities. Awake and alert and communicating. EXTREMITIES: Changes of chronic venous stasis. There is no peripheral edema. No clubbing, no cyanosis. Peripheral pulses are intact. - Labs CBC & Chem 7: 07/15/24 06:27 07/15/24 06:27 Labs: Abnormal Lab Results - Last 24 Hours (Table) 07/14/24 07/14/24 07/14/24 Range/Units 05:56 11:38 20:18 Hgb (11.4-16.0) gm/dL MCHC (31.0-37.0) g/dL ESR 90 H (0-30) mm/Hr Sodium (137-145) mmol/L Chloride (98-107) mmol/L Carbon Dioxide (22-30) mmol/L BUN (7-17) mg/dL Glucose (74-99) mg/dL POC Glucose (mg/dL) 120 H 149 H (70-110) mg/dL AST (14-36) U/L Total Protein (6.3-8.2) g/dL Albumin (3.5-5.0) g/dL 07/15/24 07/15/24 07/15/24 Range/Units 06:11 06:27 06:27 Hgb 10.7 L (11.4-16.0) gm/dL MCHC 28.8 L (31.0-37.0) g/dL ESR (0-30) mm/Hr Sodium 131 L (137-145) mmol/L Chloride 91 L (98-107) mmol/L Carbon Dioxide 37 H (22-30) mmol/L BUN 30 H (7-17) mg/dL Glucose 140 H (74-99) mg/dL POC Glucose (mg/dL) 151 H (70-110) mg/dL AST 80 H (14-36) U/L Total Protein 5.5 L (6.3-8.2) g/dL Albumin 2.8 L (3.5-5.0) g/dL Microbiology - Last 24 Hours (Table) 07/08/24 12:13 Blood Culture - Final Blood Assessment and Plan Plan: Acute on chronic hypoxemic/hypercapnic respiratory failure with significant respiratory acidosis based on the blood gas was done on 07/07/2024. Respiratory failure, multifactorial, the patient is morbidly obese. She may have, a component of COPD/CHF. In addition, the patient has a masslike opacity in the right lower lobe, rule out a consolidating mass/malignancy/pneumonia. Echocardiogram showed a preserved LV function. Nevertheless, the patient has moderate severe pulm hypertension with mild aortic stenosis. The patient is significantly improved and the patient was weaned down to 3 L of O2 by nasal can nula. Marked improvement in respiratory status. Remains on a combination of diuretics including Lasix, Aldactone and Diamox. Overnight, she continues to use the BiPAP. Currently she is on 3 L of O2 nasal cannula Sepsis secondary to enterococcal septicemia and the blood cultures were negative. The patient is currently on daptomycin. Altered mentation/encephalopathy secondary to above, and the patient has a component of CO2 narcosis. Clinically, the follow-up blood gas showed improvement in the acid-base status. Awake and alert and communicating. She is awake x 3. 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 Blood cultures positive for Enterococcus faecium. Source is right lower extremity cellulitis/wound Bilateral lower extremity infected wound. The wound is wet and there is purulent discharge ongoing. The patient also has a stage IV heel ulcer. Diabetes mellitus. Gastroesophageal reflux disease. Hyperlipidemia. Hypothyroidism. Morbid obesity Plan: BiPAP overnight and oxygen at 3 L during the day Encephalopathy and CO2 narcosis has recovered. Blood gases showed improvement in acid-base status Continue BiPAP therapy at the same setting of 12/5 cm of water on and off during the day to be alternated by oxygen 3 L of oxygen by nasal cannula Continue IV Lasix Continue Aldactone Continue Diamox Blood cultures positive for Enterococcus faecium and the patient is currently on daptomycin. ID is on the case. Keep IV fluids at KVO Continue daptomycin Continue wound care to the lower extremities and the patient has a Opticell alycia bernice in addition to wrapping Monitor respiratory status The patient has a full CODE STATUS. Time with Patient: Greater than 30
[2024-07-15 11:31] LABS: Glucose,Whole Blood 161 mg/dL (70-110)
--- NOTE | 2024-07-15 13:06 | P.PN ---
Subjective Progress Note Date: 07/15/24 Principal diagnosis: Reason for follow-up with lower extremity ulcer and cellulitis Patient is a 73-year-old female with a past medical history significant for COPD heart failure diabetes mellitus reflux hyperlipidemia presenting to the hospital for evaluation of a fall that happened the day of presentation to the hospital patient accidentally rolled off the couch onto the floor and was too weak to get herself up, noticed to have bilateral extremity ulcer and cellulitis prompted this consultation. On today's evaluation that is 07/15/2024, Patient is more awake and alert today, afebrile patient is currently on 3 L nasal oxygen and denies having any chest pain or worsening cough no abdominal pain or diarrhea. Patient white count is 8.3, creatinine 0.61 blood culture repeat has been negative so far Objective - Vital Signs Vital signs: Vital Signs Temp 98.7 F 07/15/24 11:16 Pulse 78 07/15/24 11:16 Resp 18 07/15/24 11:16 BP 130/63 07/15/24 11:16 Pulse Ox 93 L 07/15/24 11:16 FiO2 40 07/15/24 08:42 Intake & Output 07/14/24 07/15/24 07/15/24 18:59 06:59 18:59 Intake Total 253 278.5 10 Output Total 175 2075 700 Balance 78 -1796.5 -690 Intake: IV 10 10 Invasive Line 7 10 Invasive Line 8 10 Intake, IV Titration 125 38.5 Amount Diltiazem 125 mg In 125 38.5 Sodium Chloride 0.9% 100 ml @ 5 MG/HR 5 mls/hr IV .Q24H [facility] Rx#:[id number] Oral 118 240 Output: Urine 175 2075 700 Uretheral (Rock) 175 Other: Voiding Method Indwelling Catheter Indwelling Catheter Indwelling Catheter # Voids 1 - Exam GENERAL DESCRIPTION: An elderly female lying in bed in no distress RESPIRATORY SYSTEM: Unlabored breathing , decreased breath sounds at bases HEART: S1 S2 regular rate and rhythm , ABDOMEN: Soft , no tenderness EXTREMITIES: Bilateral lower extremity currently wrapped with an Blue wrap she did have wound on the right heel with necrotic base but no surrounding redness or drainage - Labs CBC & Chem 7: 07/15/24 06:27 07/15/24 06:27 Labs: Abnormal Lab Results - Last 24 Hours (Table) 07/14/24 07/15/24 07/15/24 Range/Units 20:18 06:11 06:27 Hgb (11.4-16.0) gm/dL MCHC (31.0-37.0) g/dL Sodium 131 L (137-145) mmol/L Chloride 91 L (98-107) mmol/L Carbon Dioxide 37 H (22-30) mmol/L BUN 30 H (7-17) mg/dL Glucose 140 H (74-99) mg/dL POC Glucose (mg/dL) 149 H 151 H (70-110) mg/dL AST 80 H (14-36) U/L Total Protein 5.5 L (6.3-8.2) g/dL Albumin 2.8 L (3.5-5.0) g/dL 07/15/24 07/15/24 Range/Units 06:27 11:29 Hgb 10.7 L (11.4-16.0) gm/dL MCHC 28.8 L (31.0-37.0) g/dL Sodium (137-145) mmol/L Chloride (98-107) mmol/L Carbon Dioxide (22-30) mmol/L BUN (7-17) mg/dL Glucose (74-99) mg/dL POC Glucose (mg/dL) 161 H (70-110) mg/dL AST (14-36) U/L Total Protein (6.3-8.2) g/dL Albumin (3.5-5.0) g/dL Microbiology - Last 24 Hours (Table) 07/14/24 05:56 Blood Culture - Preliminary Blood Assessment and Plan (1) Leg ulcer, left Current Visit: Yes Status: Acute Code(s): L97.929 - NON-PRS CHRONIC ULC UNSP PRT OF L LOW LEG W UNSP SEVERITY SNOMED Code(s): 36166469 (2) Left leg cellulitis Current Visit: Yes Status: Acute Code(s): L03.116 - CELLULITIS OF LEFT LOWER LIMB SNOMED Code(s): 66833918167782016 (3) Penicillin allergy Current Visit: Yes Status: Acute Code(s): Z88.0 - ALLERGY STATUS TO PENICILLIN SNOMED Code(s): 31642544 (4) Bacteremia Current Visit: Yes Status: Acute Code(s): R78.81 - BACTEREMIA SNOMED Code(s): 2443455 Plan: 1patient with diffuse swelling of bilateral lower extremity with superficial solution to the left leg likely venous stasis ulcer with secondary cellulitis likely from gram-positive skin neida. 2patient with a penicillin allergy that will limit the number of antibiotics safe to use. 3local wound care to the left leg with dry Aquacel dressing and Blue wrap to keep the swelling down, and apply Santyl to the wound to the right heel change daily. 4patient did have resolution of the fever and white count is normal however the patient blood culture repeat came back positive highly clinically suspicious for possible endovascular source such as endocarditis 5TEE was discussed with the cardiology keeping in mind patient current respiratory status want to be to stabilize before going for HANNA 6patient is more awake and alert today we will obtain a CT of the abdominal pelvis with oral contrast continue with the daptomycin and gentamicin creatinine is currently normal Son at the bedside question answered Dictation was produced using [employer] dictation software. please excuse any g rammatical, word or spelling errors. Time with Patient: Less than 30
[2024-07-15] MEDS: IOPAMIDOL CONTRAST (ORAL USE) VIAL PO PRN (13:22)
--- NOTE | 2024-07-15 13:51 | P.PN ---
Subjective Progress Note Date: 07/15/24 HISTORY OF PRESENT ILLNESS: This is a 73-year-old male with a past medical history significant for COPD, congestive heart failure, hypertension, and hyperlipidemia. 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 We have been asked to see the patient in consultation for congestive heart failure. Patient examined at the bedside. Patient presented to the hospital with a chief complaint of increased lower extremity swelling and shortness of breath. Patient was found to be in CHF and was started on IV Lasix. Patient currently denies any chest pain or pressure. Vital signs are stable. DIAGNOSTICS: - EKG reveals sinus mechanism with no signs of acute ischemia - Chest xray correlate for suspected CHF exacerbation. Additionally there is a 4.7 cm masslike consolidation in the right mid to lower lung. Underlying mass/malignancy is not excluded. - Laboratory data: WBC 11.22. Hemoglobin 11.3. Platelet count 185. Sodium 141. Potassium 4.3. BUN 17. Creatinine 0.9. - Current home cardiac medications include rosuvastatin 20 mg daily, enalapril 20 mg daily, and Lasix 40 mg in the morning and 20 mg in the afternoon. 07/06/2024 Patient examined this morning at the bedside. Patient apparently became hypotensive overnight with blood pressures in the 70s and 80s. Her Lasix was discontinued. However she was continued on lisinopril per primary medicine. Systolic blood pressure this morning is in the 90s. July 07, 2024 The patient was seen this morning she still have some change in mental status and she is somewhat lethargic and possibly dehydrated. She is getting a workup for possible sepsis. Hemodynamically she is stable now. The echo is as described above showed normal LV systolic function with mild aortic stenosis. The physical examination is remarkable for regular rhythm with a systolic murmur at the right and left upper sternal border with severe bilateral lower extremi ties chronic skin changes and chronic edema July 08, 2024 The patient was seen and evaluated this morning with apparently she was transferred from 6 N. to 3 S.. She still have change in mental status currently under workup. Hemodynamically she is stable. She still have bilateral lower extremities edema. I am going to give the patient only 1 dose of Lasix IV and continue monitor the kidney function and electrolytes. She is under an investigation for right upper lobe mass with possible need for PET scan. The mass was seen on the CT scan as well as chest x-ray. The physical examination i s remarkable for change in mental status with regular rate and rhythm and mild sinus tachycardia and diminished breathing sounds bilaterally which is still hypoxic requiring BiPAP at 40% 07/09/2024 Patient has been on BiPAP, severely hypercapnic with retention of bicarb with metabolic encephalopathy Bicarb 44, BUN 29, creatinine 0.5, Hb 10.6 07/10/2024 Patient remains somnolent on BiPAP She is on IV antibiotics BP 123/69, heart rate 76, Echo from this admission shows an EF of 55%, moderate concentric LVH, moderate to severe pulmonary hypertension with RVSP of 54 mmHg, 07/11/2024 Patient examined this morning at the bedside. Patient remains confused. She is currently on BiPAP. BUN 28. Creatinine 0.68. 07/12/2024 Patient seen and examined at bedside this a.m. Patient was transferred to ICU because of confusion and delirium. For this patient received Precedex. Confusion delirium is most likely because of CO2 retention. 07/13/2024 Patient is still on 4 L nasal cannula supplemental oxygen, very drowsy, with hypoventilation related hypercapnia 07/14/2024 It was noted that patient went into atrial fibrillation yesterday. For this she was started on Cardizem drip and briefly thereafter she converted out of atrial fibrillation. She was transfer out of ICU to telemetry floor yesterday. BUN 32, creatinine 0.8 Negative fluid balance of 1.5 L yesterday. 07/15/2024 No further atrial fibrillation on telemetry. BP 130/63, heart rate 78 bpm BUN 30, creatinine 0.6, Still very weak, 3 L oxygen, 93 saturation, PHYSICAL EXAM: VITAL SIGNS: Reviewed. GENERAL: Well-developed in no acute distress. HEENT: Head is normocephalic. Pupils are equal, round. Sclerae anicteric. Mucous membranes of the mouth are moist. Neck supple. No JVD or thyromegaly LUNGS: Respirations even and unlabored. Lungs essentially clear to auscultation bilaterally. HEART: Regular rate and rhythm. S1 and S2 heard. EXTREMITIES: Normal range of motion. No clubbing or cyanosis. Peripheral pulses intact. Bilateral lower extremity edema with evidence of cellulitis ASSESSMENT: Paroxysmal atrial fibrillation, currently in sinus rhythm Bilateral lower extremity cellulitis Acute on chronic heart failure with preserved EF Metabolic encephalopathy due to hypercapnia Acute on chronic hypoxic and hypercapnic respiratory failure Severe COPD Right lung mass, pulmonary following Hypertension, Hyperlipidemia Morbid obesity: BMI 46.1 PLAN: Blood cultures from 07/05/2024 grew Enterococcus however repeat blood cultures from from 07/07 and 07/08 have not shown any growth so far. Because of poor respiratory status and clearance of blood cultures with antibiotics, HANNA procedure seems to be more risky as compared to the benefit may offer rest. Started on Eliquis 5 mg twice daily for paroxysmal A-fib Discontinue IV Lasix. Start Bumex 1 mg p.o. twice daily Aldactone 25 mg daily Consider Diamox for metabolic alkalosis and CO2 retention if bicarb is more than 40 Daily weights, accurate intake and output, and monitoring of kidney function Prognosis is guarded Objective - Vital Signs Vital signs: Vital Signs Temp 98.7 F 07/15/24 11:16 Pulse 78 07/15/24 11:16 Resp 18 07/15/24 11:16 BP 130/63 07/15/24 11:16 Pulse Ox 93 L 07/15/24 11:16 FiO2 40 07/15/24 08:42 Intake & Output 07/14/24 07/15/24 07/15/24 18:59 06:59 18:59 Intake Total 253 278.5 10 Output Total 175 2075 1700 Balance 78 -1796.5 -1690 Intake: IV 10 10 Invasive Line 7 10 Invasive Line 8 10 Intake, IV Titration 125 38.5 Amount Diltiazem 125 mg In 125 38.5 Sodium Chloride 0.9% 100 ml @ 5 MG/HR 5 mls/hr IV .Q24H [facility] Rx#:[id number] Oral 118 240 Output: Urine 175 2075 1700 Uretheral (Rock) 175 Other: Voiding Method Indwelling Catheter Indwelling Catheter Indwelling Catheter # Voids 1 - Labs CBC & Chem 7: 07/15/24 06:27 07/15/24 06:27 Labs: Abnormal Lab Results - Last 24 Hours (Table) 07/14/24 07/15/24 07/15/24 Range/Units 20:18 06:11 06:27 Hgb (11.4-16.0) gm/dL MCHC (31.0-37.0) g/dL Sodium 131 L (137-145) mmol/L Chloride 91 L (98-107) mmol/L Carbon Dioxide 37 H (22-30) mmol/L BUN 30 H (7-17) mg/dL Glucose 140 H (74-99) mg/dL POC Glucose (mg/dL) 149 H 151 H (70-110) mg/dL AST 80 H (14-36) U/L Total Protein 5.5 L (6.3-8.2) g/dL Albumin 2.8 L (3.5-5.0) g/dL 07/15/24 07/15/24 Range/Units 06:27 11:29 Hgb 10.7 L (11.4-16.0) gm/dL MCHC 28.8 L (31.0-37.0) g/dL Sodium (137-145) mmol/L Chloride (98-107) mmol/L Carbon Dioxide (22-30) mmol/L BUN (7-17) mg/dL Glucose (74-99) mg/dL POC Glucose (mg/dL) 161 H (70-110) mg/dL AST (14-36) U/L Total Protein (6.3-8.2) g/dL Albumin (3.5-5.0) g/dL Microbiology - Last 24 Hours (Table) 07/14/24 05:56 Blood Culture - Preliminary Blood
[2024-07-15] MEDS: APIXABAN 5 MG TAB PO SCH (14:19)
--- NOTE | 2024-07-15 15:29 | CT ---
EXAMINATION TYPE: CT abdomen pelvis wo con DATE OF EXAM: 07/15/2024 3:16 PM COMPARISON: CT abdomen/pelvis 10/17/2020. CLINICAL INDICATION: Female, 73 years old with history of Enterococcus bacteremia; Enterococcus bacte remia TECHNIQUE: Axial CT abdomen pelvis wo con;Sagittal and coronal reformats were created on a separate workstation. Oral contrast used: with Oral Contrast (none if empty) CT DLP: 1213.2 mGycm, Automated exposure control for dose reduction was used. FINDINGS: LOWER CHEST: Cardiomegaly with small right and trace left pleural effusions and adjacent lower lobe c ompressive atelectasis. ABDOMEN LIVER: Unremarkable GALLBLADDER AND BILE DUCTS: The gallbladder is surgically absent. PANCREAS: Unremarkable. SPLEEN: Unremarkable. ADRENAL GLANDS: Unremarkable. KIDNEYS AND URETERS: No evidence of hydronephrosis or renal calculus. The ureters are unremarkable. PELVIS BLADDER: Nondistended with Rock catheter in place. REPRODUCTIVE: Unremarkable. ABDOMEN & PELVIS STOMACH AND BOWEL: Stomach and duodenum are unremarkable No evidence of bowel obstruction. PERITONEUM/RETROPERITONEUM: No evidence of pneumoperitoneum or free fluid. VASCULATURE: No evidence of aortic aneurysm. MUSCULOSKELETAL: No acute osseous abnormalities LYMPH NODES: No gross evidence for lymphadenopathy. SOFT TISSUE/ABDOMINAL WALL: Fat-containing periumbilical hernia. IMPRESSION: 1. No acute abnormality in the abdomen/pelvis. 2. Small right and trace left pleural effusions with adjacent lower lobe compressive atelectasis. [facility], , 07/15/2024 3:26 PM
[2024-07-15] MEDS: GENTAMICIN TROUGH DUE 1 EACH MISC MISCELLANE ONE (15:38)
[2024-07-15] MEDS: BUMETANIDE 1 MG TAB PO SCH (15:42)
[2024-07-15 16:14] LABS: Glucose,Whole Blood 156 mg/dL (70-110)
[2024-07-15] MEDS: GENTAMICIN PEAK DUE 1 EACH MISC MISCELLANE ONE (18:29)
[2024-07-15 20:10] LABS: Glucose,Whole Blood 196 mg/dL (70-110)
[2024-07-15 22:48] LABS: ABG Base Excess 9.9 mmol/L; ABG HCO3 38 mmol/L (21-25); ABG PH 7.33 (7.35-7.45); ABG PO2 120 mmHg (83-108); ABG TCO2 41 mmol/L (19-24); Allen Test Performed? Yes
[2024-07-15 22:54] LABS: ABG PCO2 73 mmHg (35-45)
[2024-07-16 06:08] LABS: Glucose,Whole Blood 160 mg/dL (70-110)
--- NOTE | 2024-07-16 06:48 | XR ---
EXAMINATION TYPE: XR chest 1V DATE OF EXAM: 07/16/2024 CLINICAL INDICATION: Female, 73 years old with history of CHF, progress study. TECHNIQUE: Single AP portable upright view of the chest is obtained. COMPARISON: Chest x-ray from one day earlier and older studies. FINDINGS: Persistent cardiomegaly with atherosclerotic thoracic aorta. Persistent bibasilar opacitie s and right mid lung increased opacity. Osseous structures are intact. IMPRESSION: Findings consistent with continued CHF exacerbation. There is cardiomegaly with small rey ateral pleural effusions. Underlying right mid lung mass worrisome for neoplasm remains present. [facility], , 07/16/2024 6:46 AM
[2024-07-16 07:20] LABS: ALT 31 U/L (4-34); AST 58 U/L (14-36); African American GFR (CKD) >90 (>60 ml/min/1.73 sqM); Albumin 2.9 g/dL (3.5-5.0); Alkaline Phosphatase 76 U/L (38-126); Blood Urea Nitrogen 22 mg/dL (7-17); Chloride 94 mmol/L (98-107); Glucose 160 mg/dL (74-99); Non-African American GFR(CKD) >90 (>60 ml/min/1.73 sqM); Sodium 135 mmol/L (137-145); Total Bilirubin 0.5 mg/dL (0.2-1.3); Total Protein 5.6 g/dL (6.3-8.2)
[2024-07-16 07:33] LABS: Anion Gap 7 mmol/L; Carbon Dioxide 34 mmol/L (22-30)
[2024-07-16 07:41] LABS: Basophils % (A) 0 %; Eosinophils # (A) 0.1 k/uL (0-0.7); Eosinophils % (A) 1 %; HCT 38.4 % (34.0-46.0); HGB 11.6 gm/dL (11.4-16.0); Hypochromasia Marked; Lymphocytes # (A) 1.1 k/uL (1.0-4.8); Lymphocytes % (A) 12 %; MCH 28.7 pg (25.0-35.0); MCHC 30.1 g/dL (31.0-37.0); MCV 95.1 fL (80.0-100.0); Monocytes # (A) 0.5 k/uL (0-1.0); Monocytes % (A) 5 %; Neutrophils # (A) 7.2 k/uL (1.3-7.7); Neutrophils % (A) 80 %; Platelet Count 246 k/uL (150-450); RBC 4.04 m/uL (3.80-5.40); RDW 14.7 % (11.5-15.5)
--- NOTE | 2024-07-16 08:40 | P.PN ---
Subjective Progress Note Date: 07/16/24 Ajay Robertson, is a 73-year-old female who presented to [facility] emergency room with a chief complaint of worsening shortness of breath, additionally patient was found on the floor in her house, she stated that she fell while asleep and was not able to stand up. She was evaluated in the emergency room vital examination on presentation revealed a temperature of 98.3 pulse 89 respiration 20 blood pressure 115/73 pulse ox 95% on 5 L nasal cannula Laboratory data revealed a white blood count of 11.4 hemoglobin 12.7 platelet count 190 BUN 20 creatinine 0.64 influenza A and B RSV and COVID-19 PCR were all negative Testing in the emergency room revealed chest x-ray revealed pulmonary congestion suggestive of congestive heart failure exacerbation and a new 4.7 masslike consolidation in the right mid to lower lung Patient was admitted to medical floor for further evaluation and treatment Past medical history is significant for history of hypertension, history of hyperlipidemia, history of hypothyroidism, history of diabetes mellitus, history of COPD, history of congestive heart failure, history of morbid obesity, history of recurrent episodes of bilateral lower extremity cellulitis. On review of systems patient is alert and oriented x 3 in no apparent distress, she is complaining of generalized body ache, she is complaining of shortness of breath, otherwise she denies any complaints there is no fever or chills no headache or dizziness no chest pain, she has occasional cough no nausea or vomiting no abdominal pain no diarrhea and no urinary symptoms. On 07/05/2024 patient is alert and oriented x 3. Awaiting consulting providers input. Patient remains on IV Lasix. CT of the chest has been completed. At this time patient denies chest pain. Patient denies nausea vomiting or diarrhea. Patient denies any urinary burning or frequency On 07/06/2024 patient is alert and oriented x 3. Patient remains on IV Lasix and IV antibiotics. Cardiology pulmonary and infectious disease services are following. Current vital signs temp 98.1, heart rate 67, respiratory rate 15, blood pressure 96/53 with a pulse ox of 93% on 4 L. Patient denies chest pain or shortness of breath. Patient denies nausea vomiting or diarrhea. Patient denies any urinary burning or frequency. On 07/07/2024 patient was seen and examined on the telemetry floor she is somnolent arousable in no apparent distress, yesterday patient was agitated and aggressive with medical staff, Seroquel was added to her medication regimen, however today she is more somnolent, Seroquel will be changed to as needed only. There is no fever or chills no headache or dizziness no chest pain patient still has shortness of breath with any activity and cough no nausea or vomiting no abdominal pain no diarrhea no urinary symptoms. On 07/08/2024 patient was seen and examined on the telemetry floor, she is so mnolent responsive in no apparent distress, currently she is maintained on BiPAP, she had episodes of agitation through the night, she was pulling off her IV in the BiPAP, she received 1 dose of IM Haldol, she is maintained on soft restraints at this time, her vital examination reveals a temperature of 99.8 pulse 109 respiration 22 pulse ox 95% on BiPAP FiO2 40% she is maintained on IV daptomycin infectious disease are following On 07/09/2024 patient was seen and examined on the telemetry floor, she is somnolent responsive in no apparent distress, she is still having episodes of agitation requiring as needed Seroquel use, otherwise she is improving gradually, there is no fever or chills no headache or dizziness no chest pain, she has shortness of breath with any activity, no nausea or vomiting no abdominal pain no diarrhea and no urinary symptoms, she remains on IV antibiotics, infectious disease are following, also cardiology and pulmonary are following On 07/10/2024 patient remains somnolent on BiPAP. Pulmonary and infectious disease services following. Patient remains on IV antibiotics. Patient remains on IV Diamox. Current vital signs temp 99.8, heart rate 78, respiratory rate 18, blood pressure 123/69 with a pulse ox of 96% on BiPAP with an FiO2 of 40. On 07/11/2024 patient was seen and examined on the medical floor, she is alert responsive in no apparent distress, she was maintained on BiPAP through the night, there is no fever or chills no headache or dizziness no chest pain no shortness of breath at rest, she has occasional cough and severe shortness of breath with any activity no nausea or vomiting no abdominal pain no diarrhea no urinary symptoms. On 07/12/2024 patient is alert but remains confused. Patient remains in the ICU. Patient was on BiPAP for 6 hours. Patient did require Precedex for increased agitation. Patient remains on IV cefepime and Diamox. Along with scheduled Bumex. Colace added for constipation. Patient denies chest pain. Patient denies nausea vomiting or diarrhea. Patient denies any urinary burning frequency On 07/13/2024 patient is more alert today. Per nursing staff plans for HANNA due to bacteremia. Current vital signs temp 99.0, heart rate 92, respiratory rate 25, blood pressure 125/69 with a pulse ox of 97% on 6 L. Patient denies chest pain. Patient denies nausea vomiting or diarrhea. Patient denies any urinary burning or frequency. Patient remains on Diamox and IV Maxipime. On 07/14/2024 patient was seen and examined on the telemetry floor, she is alert and oriented x 3 in no apparent distress, during the night patient required BiPAP, she had an episode of agitation and she received IM Haldol, yesterday e vening patient had an episode of atrial fibrillation with rapid ventricular response, she received IV Cardizem, and her rhythm converted back to normal sinus rhythm. Otherwise no issues since yesterday, patient denies any chest pain, there is no shortness of breath at rest, no fever or chills no headache or dizziness no palpitation, no nausea or vomiting no abdominal pain no diarrhea and no urinary symptoms. On 07/15/2024 patient is alert and oriented x 3. Patient's mentation improved. Patient denies chest pain or shortness of breath. Patient denies nausea vomiting or diarrhea. Patient denies any urinary burning or frequency. Current vital signs temp 97.8, heart 94, respiratory 20, blood pressure 122/58 with a pulse ox of 93% on 3 L. Patient remains on daptomycin and gentamicin. On 07/16/2024 patient was seen and examined on the telemetry floor, she is alert and oriented x 3 in no apparent distress, there is no fever or chills no headache or dizziness, no chest pain, she has shortness of breath with any activity she has occasional cough no nausea or vomiting no abdominal pain no diarrhea no blood in the stool, no urinary symptoms. Rock catheter remains in, bilateral lower extremity wrapping and protective boots are on. Vital exam reveals a temperature of 98.1 pulse 86 respiration 18 blood pressure 113/74 pulse ox 98% on 6 L nasal cannula. White blood count is 9.0 hemoglobin 11.6 platelet count 246 sodium 135 potassium 4.0 chloride 98 CO2 34 BUN 22 creatinine 0.62 Objective - Vital Signs Vital signs: Vital Signs Temp 98.1 F 07/16/24 07:58 Pulse 86 07/16/24 07:58 Resp 18 07/16/24 07:58 BP 113/74 07/16/24 07:58 Pulse Ox 98 07/16/24 07:58 FiO2 40 07/15/24 22:56 Intake & Output 07/15/24 07/16/24 07/16/24 18:59 06:59 18:59 Intake Total 139 20 Output Total 2500 2200 Balance -2361 -2180 Intake: IV 20 20 Invasive Line 8 20 20 Oral 119 Output: Urine 2500 2200 Other: Voiding Method Indwelling Catheter Indwelling Catheter Indwelling Catheter # Voids 1 - Exam In general patient is alert and oriented x 3 in no distress HEENT head normocephalic and atraumatic Neck is supple no JVD no goiter no lymphadenopathy no carotid bruit Chest examination reveals a scattered crackles bilaterally no wheezing Cardiac exam reveals regular heart sounds S1 and S2 no gallops no murmurs Abdomen is soft nontender no organomegaly with normal bowel sounds Extremity exam reveals 3+ edema with erythema and chronic stasis changes, multiple small ulceration with scabbing no cyanosis or clubbing Neurological examination reveals no gross focal deficits - Labs CBC & Chem 7: 07/16/24 06:19 07/16/24 06:19 Labs: Abnormal Lab Results - Last 24 Hours (Table) 07/15/24 07/15/24 07/15/24 Range/Units 11:29 16:13 20:08 MCHC (31.0-37.0) g/dL ABG pH (7.35-7.45) ABG pCO2 (35-45) mmHg ABG pO2 (83-108) mmHg ABG HCO3 (21-25) mmol/L ABG Total CO2 (19-24) mmol/L ABG O2 Saturation (94-97) % Hemoglobin (11.4-16.0) gm/dL Sodium (137-145) mmol/L Chloride (98-107) mmol/L Carbon Dioxide (22-30) mmol/L BUN (7-17) mg/dL Glucose (74-99) mg/dL POC Glucose (mg/dL) 161 H 156 H 196 H (70-110) mg/dL AST (14-36) U/L Total Protein (6.3-8.2) g/dL Albumin (3.5-5.0) g/dL 07/15/24 07/16/24 07/16/24 Range/Units 22:36 06:06 06:19 MCHC 30.1 L (31.0-37.0) g/dL ABG pH 7.33 L (7.35-7.45) ABG pCO2 73 H* (35-45) mmHg ABG pO2 120 H (83-108) mmHg ABG HCO3 38 H (21-25) mmol/L ABG Total CO2 41 H (19-24) mmol/L ABG O2 Saturation 99.0 H (94-97) % Hemoglobin 11.0 L (11.4-16.0) gm/dL Sodium (137-145) mmol/L Chloride (98-107) mmol/L Carbon Dioxide (22-30) mmol/L BUN (7-17) mg/dL Glucose (74-99) mg/dL POC Glucose (mg/dL) 160 H (70-110) mg/dL AST (14-36) U/L Total Protein (6.3-8.2) g/dL Albumin (3.5-5.0) g/dL 07/16/24 Range/Units 06:19 MCHC (31.0-37.0) g/dL ABG pH (7.35-7.45) ABG pCO2 (35-45) mmHg ABG pO2 (83-108) mmHg ABG HCO3 (21-25) mmol/L ABG Total CO2 (19-24) mmol/L ABG O2 Saturation (94-97) % Hemoglobin (11.4-16.0) gm/dL Sodium 135 L (137-145) mmol/L Chloride 94 L (98-107) mmol/L Carbon Dioxide 34 H (22-30) mmol/L BUN 22 H (7-17) mg/dL Glucose 160 H (74-99) mg/dL POC Glucose (mg/dL) (70-110) mg/dL AST 58 H (14-36) U/L Total Protein 5.6 L (6.3-8.2) g/dL Albumin 2.9 L (3.5-5.0) g/dL Microbiology - Last 24 Hours (Table) 07/14/24 05:56 Blood Culture - Preliminary Blood Assessment and Plan Plan: Acute congestive heart failure exacerbation Bacteremia New 4.7 cm masslike consolidation opacity in the right midlung Fall at home, with generalized body pain Bilateral lower extremity cellulitis, with multiple open ulcers Underlying history of hypertension Underlying history of hyperlipidemia Underlying history of diabetes mellitus Underlying history of COPD Underlying history of morbid obesity At this time patient was admitted to telemetry floor Patient has been transferred out of the intensive care unit Remains on IV antibiotics Continue BiPAP Consultation for pulmonary, infectious disease, and cardiology initiated Will follow closely
[2024-07-16 11:23] LABS: Glucose,Whole Blood 188 mg/dL (70-110)
--- NOTE | 2024-07-16 12:50 | P.PN ---
Subjective Progress Note Date: 07/16/24 Principal diagnosis: Reason for follow-up with lower extremity ulcer and cellulitis Patient is a 73-year-old female with a past medical history significant for COPD heart failure diabetes mellitus reflux hyperlipidemia presenting to the hospital for evaluation of a fall that happened the day of presentation to the hospital patient accidentally rolled off the couch onto the floor and was too weak to get herself up, noticed to have bilateral extremity ulcer and cellulitis prompted this consultation. On today's evaluation that is 07/16/2024, patient has been afebrile, patient is breathing comfortably and is currently on 6 L nasal cannula oxygen, patient is more awake and alert denies having any chest pain and cough, patient denies nausea vomiting or diarrhea and no abdominal pain. Patient white count is 9.0, creatinine 0.62 blood culture repeat has been negati ve so far CT abdominal pelvis did not show any acute finding Objective - Vital Signs Vital signs: Vital Signs Temp 98.1 F 07/16/24 07:58 Pulse 86 07/16/24 07:58 Resp 18 07/16/24 07:58 BP 113/74 07/16/24 07:58 Pulse Ox 98 07/16/24 07:58 FiO2 40 07/15/24 22:56 Intake & Output 07/15/24 07/16/24 07/16/24 18:59 06:59 18:59 Intake Total 139 20 240 Output Total 2500 2200 Balance -2361 -2180 240 Intake: IV 20 20 Invasive Line 8 20 20 Oral 119 240 Output: Urine 2500 2200 Other: Voiding Method Indwelling Catheter Indwelling Catheter Indwelling Catheter # Voids 1 - Exam GENERAL DESCRIPTION: An elderly female lying in bed in no distress RESPIRATORY SYSTEM: Unlabored breathing , decreased breath sounds at bases HEART: S1 S2 regular rate and rhythm , ABDOMEN: Soft , no tenderness EXTREMITIES: Bilateral lower extremity currently wrapped with an Blue wrap she did have wound on the right heel with necrotic base but no surrounding redness or drainage - Labs CBC & Chem 7: 07/16/24 06:19 07/16/24 06:19 Labs: Abnormal Lab Results - Last 24 Hours (Table) 07/15/24 07/15/24 07/15/24 Range/Units 11:29 16:13 20:08 MCHC (31.0-37.0) g/dL ABG pH (7.35-7.45) ABG pCO2 (35-45) mmHg ABG pO2 (83-108) mmHg ABG HCO3 (21-25) mmol/L ABG Total CO2 (19-24) mmol/L ABG O2 Saturation (94-97) % Hemoglobin (11.4-16.0) gm/dL Sodium (137-145) mmol/L Chloride (98-107) mmol/L Carbon Dioxide (22-30) mmol/L BUN (7-17) mg/dL Glucose (74-99) mg/dL POC Glucose (mg/dL) 161 H 156 H 196 H (70-110) mg/dL AST (14-36) U/L Total Protein (6.3-8.2) g/dL Albumin (3.5-5.0) g/dL 07/15/24 07/16/24 07/16/24 Range/Units 22:36 06:06 06:19 MCHC 30.1 L (31.0-37.0) g/dL ABG pH 7.33 L (7.35-7.45) ABG pCO2 73 H* (35-45) mmHg ABG pO2 120 H (83-108) mmHg ABG HCO3 38 H (21-25) mmol/L ABG Total CO2 41 H (19-24) mmol/L ABG O2 Saturation 99.0 H (94-97) % Hemoglobin 11.0 L (11.4-16.0) gm/dL Sodium (137-145) mmol/L Chloride (98-107) mmol/L Carbon Dioxide (22-30) mmol/L BUN (7-17) mg/dL Glucose (74-99) mg/dL POC Glucose (mg/dL) 160 H (70-110) mg/dL AST (14-36) U/L Total Protein (6.3-8.2) g/dL Albumin (3.5-5.0) g/dL 07/16/24 Range/Units 06:19 MCHC (31.0-37.0) g/dL ABG pH (7.35-7.45) ABG pCO2 (35-45) mmHg ABG pO2 (83-108) mmHg ABG HCO3 (21-25) mmol/L ABG Total CO2 (19-24) mmol/L ABG O2 Saturation (94-97) % Hemoglobin (11.4-16.0) gm/dL Sodium 135 L (137-145) mmol/L Chloride 94 L (98-107) mmol/L Carbon Dioxide 34 H (22-30) mmol/L BUN 22 H (7-17) mg/dL Glucose 160 H (74-99) mg/dL POC Glucose (mg/dL) (70-110) mg/dL AST 58 H (14-36) U/L Total Protein 5.6 L (6.3-8.2) g/dL Albumin 2.9 L (3.5-5.0) g/dL Microbiology - Last 24 Hours (Table) 07/14/24 05:56 Blood Culture - Preliminary Blood Assessment and Plan (1) Leg ulcer, left Current Visit: Yes Status: Acute Code(s): L97.929 - NON-PRS CHRONIC ULC UNSP PRT OF L LOW LEG W UNSP SEVERITY SNOMED Code(s): 26759110 (2) Left leg cellulitis Current Visit: Yes Status: Acute Code(s): L03.116 - CELLULITIS OF LEFT LOWER LIMB SNOMED Code(s): 39034735790015496 (3) Penicillin allergy Current Visit: Yes Status: Acute Code(s): Z88.0 - ALLERGY STATUS TO PENICILLIN SNOMED Code(s): 56105398 (4) Bacteremia Current Visit: Yes Status: Acute Code(s): R78.81 - BACTEREMIA SNOMED Code(s): 4169366 Plan: 1patient with diffuse swelling of bilateral lower extremity with superficial solution to the left leg likely venous stasis ulcer with secondary cellulitis likely from gram-positive skin neida. 2patient with a penicillin allergy that will limit the number of antibiotics safe to use. 3local wound care to the left leg with dry Aquacel dressing and Blue wrap to keep the swelling down, and apply Santyl to the wound to the right heel change daily. 4patient did have resolution of the fever and white count is normal however the patient blood culture repeat came back positive highly clinically suspicious for possible endovascular source such as endocarditis 5TEE was discussed with the cardiology keeping in mind patient current respiratory status want to be to stabilize before going for HANNA 6patient CT of the abdominal pelvis did not show any acute findings UA was negative highly suspicious for endovascular source and the patient should go for HANNA at this point will discuss with cardiology also check a WBC scan and we will continue with the daptomycin and gentamicin Dictation was produced using [employer] dictation software. please excuse any grammatical, word or spelling errors. Time with Patient: Less than 30
--- NOTE | 2024-07-16 13:18 | P.PN ---
Subjective Progress Note Date: 07/16/24 HISTORY OF PRESENT ILLNESS: This is a 73-year-old male with a past medical history significant for COPD, congestive heart failure, hypertension, and hyperlipidemia. Patient does not follow with a education supervisor. We have been asked to see the patient in consultation for congestive heart failure. Patient examined at the bedside. Patient presented to the hospital with a chief complaint of increased lower extremity swelling and shortness of breath. Patient was found to be in CHF and was started on IV Lasix. Patient currently denies any chest pain or pressure. Vital signs are stable. DIAGNOSTICS: - EKG reveals sinus mechanism with no signs of acute ischemia - Chest xray correlate for suspected CHF exacerbation. Additionally there is a 4.7 cm masslike consolidation in the right mid to lower lung. Underlying mass/malignancy is not excluded. - Laboratory data: WBC 11.22. Hemoglobin 11.3. Platelet count 185. Sodium 141. Potassium 4.3. BUN 17. Creatinine 0.9. - Current home cardiac medications include rosuvastatin 20 mg daily, enalapril 20 mg daily, and Lasix 40 mg in the morning and 20 mg in the afternoon. 07/06/2024 Patient examined this morning at the bedside. Patient apparently became hypotensive overnight with blood pressures in the 70s and 80s. Her Lasix was discontinued. However she was continued on lisinopril per primary medicine. Systolic blood pressure this morning is in the 90s. July 07, 2024 The patient was seen this morning she still have some change in mental status and she is somewhat lethargic and possibly dehydrated. She is getting a workup for possible sepsis. Hemodynamically she is stable now. The echo is as described above showed normal LV systolic function with mild aortic stenosis. The physical examination is remarkable for regular rhythm with a systolic murmur at the right and left upper sternal border with severe bilateral lower extremi ties chronic skin changes and chronic edema July 08, 2024 The patient was seen and evaluated this morning with apparently she was transferred from 6 N. to 3 [address].. She still have change in mental status currently under workup. Hemodynamically she is stable. She still have bilateral lower extremities edema. I am going to give the patient only 1 dose of Lasix IV and continue monitor the kidney function and electrolytes. She is under an investigation for right upper lobe mass with possible need for PET scan. The mass was seen on the CT scan as well as chest x-ray. The physical examination i s remarkable for change in mental status with regular rate and rhythm and mild sinus tachycardia and diminished breathing sounds bilaterally which is still hypoxic requiring BiPAP at 40% 07/09/2024 Patient has been on BiPAP, severely hypercapnic with retention of bicarb with metabolic encephalopathy Bicarb 44, BUN 29, creatinine 0.5, Hb 10.6 07/10/2024 Patient remains somnolent on BiPAP She is on IV antibiotics BP 123/69, heart rate 76, Echo from this admission shows an EF of 55%, moderate concentric LVH, moderate to severe pulmonary hypertension with RVSP of 54 mmHg, 07/11/2024 Patient examined this morning at the bedside. Patient remains confused. She is currently on BiPAP. BUN 28. Creatinine 0.68. 07/12/2024 Patient seen and examined at bedside this a.m. Patient was transferred to ICU because of confusion and delirium. For this patient received Precedex. Confusion delirium is most likely because of CO2 retention. 07/13/2024 Patient is still on 4 L nasal cannula supplemental oxygen, very drowsy, with hypoventilation related hypercapnia 07/14/2024 It was noted that patient went into atrial fibrillation yesterday. For this she was started on Cardizem drip and briefly thereafter she converted out of atrial fibrillation. She was transfer out of ICU to telemetry floor yesterday. BUN 32, creatinine 0.8 Negative fluid balance of 1.5 L yesterday. 07/15/2024 No further atrial fibrillation on telemetry. BP 130/63, heart rate 78 bpm BUN 30, creatinine 0.6, Still very weak, 3 L oxygen, 93 saturation, 07/16 Patient seen and examined. Patient states she is feeling better in general and also her breathing is improved. She states she still has some cough and some wheezing. She denies palpitations. No chest pain. Blood pressure 122/83, heart rate 82, pulse ox 96% on 6 L nasal cannula. Repeat blood work reveals hemoglobin 9.6, sodium 135, potassium 4, BUN 22 and creatinine 0.62. PHYSICAL EXAM: VITAL SIGNS: Reviewed. GENERAL: Well-developed in no acute distress. HEENT: Head is normocephalic. Pupils are equal, round. Sclerae anicteric. Mucous membranes of the mouth are moist. Neck supple. No JVD or thyromegaly LUNGS: Respirations even and unlabored. Lungs essentially clear to auscultation bilaterally. No wheezing HEART: Regular rate and rhythm. S1 and S2 heard. 2/6 systolic murmur EXTREMITIES: Normal range of motion. No clubbing or cyanosis. Peripheral pulse s intact. Bilateral lower extremity edema with evidence of cellulitis ASSESSMENT: Paroxysmal atrial fibrillation, currently in sinus rhythm Bilateral lower extremity cellulitis Acute on chronic heart failure with preserved EF Metabolic encephalopathy due to hypercapnia Acute on chronic hypoxic and hypercapnic respiratory failure Severe COPD Right lung mass, pulmonary following Hypertension, Hyperlipidemia Morbid obesity: BMI 46.1 PLAN: No plan for HANNA Continue patient on Eliquis 5 mg twice daily for paroxysmal A-fib Continue patient on Bumex 1 mg p.o. twice daily Continue metoprolol tartrate 25 mg twice daily, Aldactone 25 mg daily Patient was started on Diamox Patient is stable for discharge. She will follow-up in the office with Dr. Alarcon in 2 weeks. Nurse practitioner note has been reviewed, I agree with documented findings and plan of care. Patient was seen and examined. Objective - Vital Signs Vital signs: Vital Signs Temp 98.1 F 07/16/24 07:58 Pulse 86 07/16/24 07:58 Resp 18 07/16/24 07:58 BP 113/74 07/16/24 07:58 Pulse Ox 98 07/16/24 07:58 FiO2 40 07/15/24 22:56 Intake & Output 07/15/24 07/16/24 07/16/24 18:59 06:59 18:59 Intake Total 139 20 Output Total 2500 2200 Balance -2361 -2180 Intake: IV 20 20 Invasive Line 8 20 20 Oral 119 Output: Urine 2500 2200 Other: Voiding Method Indwelling Catheter Indwelling Catheter Indwelling Catheter # Voids 1 - Labs CBC & Chem 7: 07/16/24 06:19 07/16/24 06:19 Labs: Abnormal Lab Results - Last 24 Hours (Table) 07/15/24 07/15/24 07/15/24 Range/Units 11:29 16:13 20:08 MCHC (31.0-37.0) g/dL ABG pH (7.35-7.45) ABG pCO2 (35-45) mmHg ABG pO2 (83-108) mmHg ABG HCO3 (21-25) mmol/L ABG Total CO2 (19-24) mmol/L ABG O2 Saturation (94-97) % Hemoglobin (11.4-16.0) gm/dL Sodium (137-145) mmol/L Chloride (98-107) mmol/L Carbon Dioxide (22-30) mmol/L BUN (7-17) mg/dL Glucose (74-99) mg/dL POC Glucose (mg/dL) 161 H 156 H 196 H (70-110) mg/dL AST (14-36) U/L Total Protein (6.3-8.2) g/dL Albumin (3.5-5.0) g/dL 07/15/24 07/16/24 07/16/24 Range/Units 22:36 06:06 06:19 MCHC 30.1 L (31.0-37.0) g/dL ABG pH 7.33 L (7.35-7.45) ABG pCO2 73 H* (35-45) mmHg ABG pO2 120 H (83-108) mmHg ABG HCO3 38 H (21-25) mmol/L ABG Total CO2 41 H (19-24) mmol/L ABG O2 Saturation 99.0 H (94-97) % Hemoglobin 11.0 L (11.4-16.0) gm/dL Sodium (137-145) mmol/L Chloride (98-107) mmol/L Carbon Dioxide (22-30) mmol/L BUN (7-17) mg/dL Glucose (74-99) mg/dL POC Glucose (mg/dL) 160 H (70-110) mg/dL AST (14-36) U/L Total Protein (6.3-8.2) g/dL Albumin (3.5-5.0) g/dL 07/16/24 Range/Units 06:19 MCHC (31.0-37.0) g/dL ABG pH (7.35-7.45) ABG pCO2 (35-45) mmHg ABG pO2 (83-108) mmHg ABG HCO3 (21-25) mmol/L ABG Total CO2 (19-24) mmol/L ABG O2 Saturation (94-97) % Hemoglobin (11.4-16.0) gm/dL Sodium 135 L (137-145) mmol/L Chloride 94 L (98-107) mmol/L Carbon Dioxide 34 H (22-30) mmol/L BUN 22 H (7-17) mg/dL Glucose 160 H (74-99) mg/dL POC Glucose (mg/dL) (70-110) mg/dL AST 58 H (14-36) U/L Total Protein 5.6 L (6.3-8.2) g/dL Albumin 2.9 L (3.5-5.0) g/dL Microbiology - Last 24 Hours (Table) 07/14/24 05:56 Blood Culture - Preliminary Blood
[2024-07-16 16:38] LABS: Glucose,Whole Blood 177 mg/dL (70-110)
--- NOTE | 2024-07-16 17:08 | P.PN ---
Subjective Progress Note Date: 07/16/24 Principal diagnosis: Acute on chronic hypoxic respiratory failure and enterococcal sepsis This is a 73-year-old obese white female today seen in room 620. She came to the hospital with 1 day of shortness of breath, leg swelling, and cough. Her viral screen was negative. The patient has smoked for about 40 to 45 years. The only medicine she takes at home for her breathing is albuterol. Her procalcitonin level was 0.05. Chest x-ray showed some fluid overload, but also showed a possible mass in the right midlung, which could be either an actual mass or pseudotumor. A CT scan was ordered. It does show a 7.1 lobulated mass in the right lung. A PET scan was recommended. Currently, the patient is on 4 L of oxygen. No fluids are ordered. She is getting Lasix 40 mg every 8 hours. She also has an updraft ordered. White count 1.22, hemoglobin 11.3, macro 39.1, platelet count 185,000. Coags are normal. Sodium 141, potassium 4.3, chlorides 94, CO2 39, BUN 17.5, creatinine 0.9. Glucose 169. Calcium 8.6. Troponin was negative. N-terminal proBNP was elevated at 1830. Procalcitonin level was 0.05. Urine is negative. Viral screen was negative. Chest x-ray was consistent with fluid overload/CHF. Cardiology has seen the patient. The patient is seen today July 06, 2024 in follow-up on the regular medical floor. She is currently sitting up in bed. Awake and alert in no acute distress. She is maintaining O2 saturations in the 90s on 4 L/min per nasal cannula. She is receiving normal saline at 75 mL/h. White count 10.2. Hemoglobin 11.5. Platelets 198. Sodium 134. Potassium 4.5. Bicarb 38. BUN 29. Creatinine 0.83. Glucose 132. She remains on cefazolin. IV diuretics were discontinued. The patient is seen today July 07, 2024 in follow-up on the regular medical floor. She is currently resting comfortably in bed. Awake and alert in no acute distress. Maintaining good O2 saturations in the 90s on 5 L/min per nasal cannula. She is receiving normal saline at 50 mL/h. Her blood culture isshowing Enterococcus faecium. She is currently on daptomycin. Remains on bronchodilators. 1.2. Platelets 204. Sodium 144. Potassium 5.2. Bicarb 39. BUN 24. Creatinine 0.6. Glucose 153. Progress note dated July 08, 2024. The patient was moved down to the third floor, sometime yesterday or last night, for respiratory distress. I was never notified. The patient was seen today in room 360. She was on BiPAP, with settings of 12/5, and 40%. She was getting saline at 20 cc an hour. A blood gas was done on 44% oxygen showing a pO2 of 84, pCO2 of 91, pH is 7.29. Her blood cultures were positive for Enterococcus faecium. For that reason, she is on daptomycin. Current labs include a white count 7.8, hemoglobin 11.2, hematocrit 38.3, and a platelet count of 173,000. Sodium 139, potassium 4.5, chlorides 93, CO2 40, BUN 29, and creatinine 0.58. Glucose 74. Albumin is 3. Chest x-ray done yesterday, continues to show me in addition, there is diffuse changes, consistent with fluid overload and/or pneumonia. On 07/09/2024, the patient is being seen for a follow-up. Morbidly obese female patient was hospitalized for an acute on top of chronic hypoxic and hypercapnic respiratory failure. At the time of my evaluation this morning, the patient was started on a BiPAP at a pressure of 12/5 with an FiO2 of 40%. I took the patient off the BiPAP and put her on 4 L of oxygen by nasal cannula. Subsequent blood gases showed a pH of 7.34 with pCO2 of 86 and pO2 162. The patient has a mass like consolidation involving the right lower lobe. This could be pneumonia versus malignancy. At the same time, the patient is septic and the source of sepsis is a wound infection and the patient has active wet wound with purulent foul-smelling material covering the wound base and the right lower extremity above the lateral malleolus. Blood culture was positive for Enterococcus faecalis and based on that, the patient has been maintained on a combination of daptomycin and the patient is also on IV cefepime. Repeat chest x-ray was done and it showed a right lower lobe masslike opacity that remains unchanged compared to the previous x-rays in addition to mild cardiomegaly and pulm vessel congestion. The patient is sitting daily diuresis. The patient is producing excellent urine output and the fluid balance is -2.6 L over the past 24 hours. The white cell count is 7.1 with a heme of 10.6 and a platelet count of 151. Serum bicarb is 44 with BUN of 29 and a creatinine of 0.5. Sodium is at 140. She remains encephalopathic. She is arousable. She has tolerated the BiPAP reasonably well. On 07/10/2024, the patient is being seen for a follow-up. The patient remains on BiPAP and she seems to be tolerating the BiPAP reasonably well. This morning, the patient is on a BiPAP at a pressure of 12 over 5 cm of water with an FiO2 of 40% which is essentially the same setting as yesterday. She is arousable and she is able to communicate. At times confused. I took this patient off the BiPAP and put her on oxygen at 5 L/min nasal cannula. Subsequent blood gases showed a pH of 7.33 with a pCO2 of 78 and pO2 of 129. She is still lethargic and weak. Denies having any chest pain. She does have swelling in lower extremities bilaterally. She was given IV Lasix yesterday and her fluid balance is -3.1 L over the past 24 hours. She remains on Bumex 1 mg p.o. daily. She is also on Diamox 5 mg IV every 12 hours. The blood work from today shows a BUN of 24 with a creatinine of 0.7. Serum bicarb is at 36 and a sodium levels at 140. The white cell count is 7.9 with a hemoglobin of 11.4 and a platelet count of 164. The follow-up chest x-ray from yesterday was still showing a masslike consolidation/opacity in the right midlung/right lower lobe area. The patient also has some ongoing mild cardiomegaly. Wound care is being applied. ID is on the case. The patient remains on daptomycin and IV cefepime. On 07/11/2024, the patient is being seen for a follow-up. Remains quite lethargic and continues to have diminished level of consciousness. She remains on a BiPAP at her same setting of 12 over 5 cm of water. Repeat blood gas was done with an FiO2 40% showed a pH of 7.36 with a pCO2 of 71 and pO2 of 83. The patient is however arousable. She continues to be treated for a extensive right lower extremity wound infection with septicemia the patient had Enterococcus faecium and she remains essentially same antibiotic coverage including combination of cefepime and daptomycin. On today's blood work, the white cell count is 7.4 with a hemoglobin 10.9 and a platelet count of 174. The sodium level is at 139, BUN is 28 with a creatinine of 0.6. Potassium is at 4 and a serum bicarb is at 39. She is on Diamox 500 mg IV every 12 hours. She is on Bumex 1 mg p.o. daily. Rest of the medications are essentially unchanged. No significant agitation. 07/12/2024, the patient is being seen for a follow-up. On today's evaluation, the patient is arousable and she is able to communicate. She does have some background encephalopathy and confusion. She is complaining of pain involving lower extremities the patient has extensive wounds in lower extremities bilaterally involving the lateral aspect of the lower extremities bilaterally above the ankle. The area was inspected today and the wound base is erythematous and less purulence. No foul drainage at this point in time. The patient was taken off the BiPAP this morning. The patient was placed on oxygen and she is currently at 60s over the nasal cannula. Repeat blood gas was done and the patient showed a pH of 7.35 with a pCO2 of 65 and pO2 of 52 and this was on FiO2 of 36%. The follow-up chest x-ray from today shows a masslike consolidation in the right lung which seems to be less dense and more hazy. There is also cardiomegaly and pulm vascular congestion with mild pulm vascular congestion. The white cell count is at 9, hemoglobin is 10.7 and a platelet count of 176. BUN is 34 with a creatinine of 0.6 and a sodium level is at 137. The patient is receiving Diamox to 50 mg p.o. daily. The patient remains on Las ix 40 mg IV push every 12 hours. The fluid balance is -1.7 L over the past 24 hours. The patient remains on broad-spectrum antibiotics. The patient is currently on cefepime and daptomycin. Rest of the medications remain unchanged. She remains on Aldactone 25 mg p.o. daily and trazodone at bedtime 50 mg nightly. 07/13/2024, the patient is being seen for a follow-up. Patient is awake and alert and communicating. Denies having any significant complaints other than pain in her back and lower extremities bilaterally. Neurologically, much more awake and alert and communicating. No signs of any CO2 narcosis. Remains on IV Lasix. Remains on Aldactone and Diamox. Most recent blood gas from yesterday showed marked improvement respiratory status. Current serum bicarb level is at 32, sodium is at 135 with a potassium level 3.9. The white cell count of 3.5 with a hemoglobin of 11 and a platelet count of 172. She is utilizing the BiPAP only overnight. Patient has adequate urine output. Denies having any other complaints. Tolerating the oral intake. No reported aspiration. Chest x-ray from yesterday still showing cardiomegaly and pulm vessel congestion in addition to a vague right midlung opacity that is being followed up by serial chest x- rays. She remains on a combination of cefepime and daptomycin. ID is on the case. She is still on a combination of Desyrel and Seroquel. 07/14/2024, the patient is being seen for a follow-up. Overnight, the patient was utilizing her BiPAP at a pressure of 12 over 5 cm of water. This morning, the patient is still on a BiPAP. She is arousable and awake. No significant events overnight. No chest pain. No focal neurological deficits. Remains on the same regimen of antibiotics and the patient remains on daptomycin. ID is on the case. She remains on diuretics. She is on IV Lasix 40 mg every 12 hours and Aldactone 25 mg p.o. daily. She is also on Diamox to 50 mg p.o. on a daily basis. Sodium levels at 132, potassium level is at 4.1, BUN 32 with a creatinine 0.8. The white cell count of 10.9 with a hemoglobin 12 and a platelet count of 206. She was transferred out of the intensive care unit yesterday. No fever. No chills. She is still undergoing wound care to her lower extremity wounds and ID is on the case. 07/15/2024, the patient is being seen for a follow-up. She did encounter some episodes of confusion yesterday. This morning she is on a BiPAP and I took her off the BiPAP and put her on 3 L of oxygen by nasal cannula. She seems to be much more appropriate. She remains on IV Lasix. She is also on Aldactone. Fluid balance is -1.7 L over the past 24 hours. No specific complaints. Antibiotics remain daptomycin. The white cell count is at 8.3, hemoglobin is 10 and platelet count of 206. BUN is at 30 with a creatinine of 0.600 serum bicarb level is at 37. No new complaints otherwise for now. Patient was seen today on 07/16/2024, patient was seen on follow-up, seems to be about the same, she is not confused today, she is intermittently on BiPAP, during my evaluation she was on 2 L nasal cannula, seems to be very appropriate, remains on diuretics including Lasix and Aldactone. She had a significant negative fluid balance over the last 24 hours. Remains on daptomycin for enterococcal infection. WBC count is 9 hemoglobin 11.6, basic metabolic profile is normal ABG from yesterday was noted and it showed a pO2 of 120 pCO2 73 pH of 7.33. Her chest x-ray today continues to show evidence of congestive heart failure with cardiomegaly and small bilateral pleural effusions there is cierra dence of right midlung mass highly suggestive of malignancy needs outpatient follow-up and possible bronc and biopsy Objective - Vital Signs Vital signs: Vital Signs Temp 98.2 F 07/16/24 15:19 Pulse 87 07/16/24 15:19 Resp 17 07/16/24 15:19 BP 130/78 07/16/24 15:19 Pulse Ox 96 07/16/24 15:19 FiO2 40 07/16/24 14:07 Intake & Output 07/15/24 07/16/24 07/16/24 18:59 06:59 18:59 Intake Total 139 20 480 Output Total 2500 2200 1700 Balance -2361 -2180 -1220 Weight 105.5 kg Intake: IV 20 20 Invasive Line 8 20 20 Oral 119 480 Output: Urine 2500 2200 1700 Other: Voiding Method Indwelling Catheter Indwelling Catheter Indwelling Catheter # Voids 1 - Exam GENERAL EXAM: 73-year-old female in no distress on nasal cannula HEAD: Normocephalic. EYES: Normal reaction of pupils, equal size. NOSE: Clear with pink turbinates. THROAT: No erythema or exudates. NECK: No masses, no JVD. CHEST: No chest wall deformity. LUNGS: Equal air entry with no crackles, wheeze, rhonchi or dullness. CVS: S1 and S2 normal with no audible murmur, regular rhythm. ABDOMEN: No hepatosplenomegaly, normal bowel sounds, no guarding or rigidity. SKIN: No rashes. Chronic venous stasis of the lower extremities. Purulent bilateral lower extremity ulcer with purulent material covering the base of the ulcer on the right lower extremity and stage IV heel ulcer in the right foot. CENTRAL NERVOUS SYSTEM: Alert oriented x 3 no gross focal deficit EXTREMITIES: Changes of chronic venous stasis. There is no peripheral edema. No clubbing, no cyanosis. Peripheral pulses are intact. - Labs CBC & Chem 7: 07/16/24 06:19 07/16/24 06:19 Labs: Abnormal Lab Results - Last 24 Hours (Table) 07/15/24 07/15/24 07/16/24 Range/Units 20:08 22:36 06:06 MCHC (31.0-37.0) g/dL ABG pH 7.33 L (7.35-7.45) ABG pCO2 73 H* (35-45) mmHg ABG pO2 120 H (83-108) mmHg ABG HCO3 38 H (21-25) mmol/L ABG Total CO2 41 H (19-24) mmol/L ABG O2 Saturation 99.0 H (94-97) % Hemoglobin 11.0 L (11.4-16.0) gm/dL Sodium (137-145) mmol/L Chloride (98-107) mmol/L Carbon Dioxide (22-30) mmol/L BUN (7-17) mg/dL Glucose (74-99) mg/dL POC Glucose (mg/dL) 196 H 160 H (70-110) mg/dL AST (14-36) U/L Total Protein (6.3-8.2) g/dL Albumin (3.5-5.0) g/dL 07/16/24 07/16/24 07/16/24 Range/Units 06:19 06:19 11:22 MCHC 30.1 L (31.0-37.0) g/dL ABG pH (7.35-7.45) ABG pCO2 (35-45) mmHg ABG pO2 (83-108) mmHg ABG HCO3 (21-25) mmol/L ABG Total CO2 (19-24) mmol/L ABG O2 Saturation (94-97) % Hemoglobin (11.4-16.0) gm/dL Sodium 135 L (137-145) mmol/L Chloride 94 L (98-107) mmol/L Carbon Dioxide 34 H (22-30) mmol/L BUN 22 H (7-17) mg/dL Glucose 160 H (74-99) mg/dL POC Glucose (mg/dL) 188 H (70-110) mg/dL AST 58 H (14-36) U/L Total Protein 5.6 L (6.3-8.2) g/dL Albumin 2.9 L (3.5-5.0) g/dL 07/16/24 Range/Units 16:37 MCHC (31.0-37.0) g/dL ABG pH (7.35-7.45) ABG pCO2 (35-45) mmHg ABG pO2 (83-108) mmHg ABG HCO3 (21-25) mmol/L ABG Total CO2 (19-24) mmol/L ABG O2 Saturation (94-97) % Hemoglobin (11.4-16.0) gm/dL Sodium (137-145) mmol/L Chloride (98-107) mmol/L Carbon Dioxide (22-30) mmol/L BUN (7-17) mg/dL Glucose (74-99) mg/dL POC Glucose (mg/dL) 177 H (70-110) mg/dL AST (14-36) U/L Total Protein (6.3-8.2) g/dL Albumin (3.5-5.0) g/dL Microbiology - Last 24 Hours (Table) 07/14/24 05:56 Blood Culture - Preliminary Blood Assessment and Plan Assessment: Impression: Acute on chronic hypoxic and hypercapnic respiratory failure patient has a combination of COPD and congestive heart failure/diastolic congestive heart failure, patient was noted to have preserved LV function Severe pulmonary hypertension Mild aortic stenosis sepsis secondary to enterococcal septicemia with negative blood cultures patient is on daptomycin Morbid obesity Altered mental status/encephalopathy with CO2 narcosis 7.1 cm right mid lung mass, may have to be evaluated on outpatient basis\ Type 2 diabetes Dyslipidemia Hypothyroidism Recommendation: Continue oxygen and titrate accordingly Continue bronchodilators Continue diuretics including Lasix Aldactone Diamox Continue to monitor blood cultures, patient had positive blood cultures for Enterococcus faecium remains on daptomycin Continue to monitor pulmonary status Right lung mass, will need to be further evaluated on outpatient basis, c oncerning for malignancy Patient will eventually need outpatient follow-up and bronchoscopy/biopsy. Not quite ready for discharge Will continue to follow
[2024-07-16 20:19] LABS: Glucose,Whole Blood 194 mg/dL (70-110)
[2024-07-17 06:10] LABS: Glucose,Whole Blood 186 mg/dL (70-110)
[2024-07-17 06:41] LABS: Basophils # (A) 0.04 10*3/uL (0.00-0.10); Basophils % (A) 0.5 %; Eosinophils % (A) 1.2 %; HCT 35.5 % (37.2-46.3); HGB 10.6 g/dL (12.0-15.0); Lymphocytes % (A) 19.6 %; MCH 29.2 pg (27.0-32.0); MCHC 29.9 g/dL (32.0-37.0); MCV 97.8 fL (80.0-97.0); Mean Platelet Volume 10.7 fL (9.5-12.2); Monocytes # (A) 0.63 10*3/uL (0.20-1.00); Monocytes % (A) 7.7 %; Neutrophils # (A) 5.74 10*3/uL (1.80-7.70); Neutrophils % (A) 70.5 %; Platelet Count 268 10*3/uL (140-440); RBC 3.63 10*6/uL (4.10-5.20); RDW 14.3 % (11.5-14.5); WBC 8.15 10*3/uL (4.50-10.00)
[2024-07-17 06:53] LABS: ALT 31 U/L (4-34); AST 48 U/L (14-36); African American GFR (CKD) >90 (>60 ml/min/1.73 sqM); Albumin 2.8 g/dL (3.5-5.0); Alkaline Phosphatase 72 U/L (38-126); Blood Urea Nitrogen 22 mg/dL (7-17); Calcium 9.2 mg/dL (8.4-10.2); Chloride 92 mmol/L (98-107); Glucose 174 mg/dL (74-99); Non-African American GFR(CKD) 88 (>60 ml/min/1.73 sqM); Potassium 4.2 mmol/L (3.5-5.1); Sodium 135 mmol/L (137-145); Total Bilirubin 0.5 mg/dL (0.2-1.3); Total Protein 5.5 g/dL (6.3-8.2)
[2024-07-17 07:05] LABS: Anion Gap 4 mmol/L
[2024-07-17 07:18] LABS: Carbon Dioxide 39 mmol/L (22-30)
--- NOTE | 2024-07-17 09:13 | P.PN ---
Subjective Progress Note Date: 07/17/24 Ajay Robertson, is a 73-year-old female who presented to [facility] emergency room with a chief complaint of worsening shortness of breath, additionally patient was found on the floor in her house, she stated that she fell while asleep and was not able to stand up. She was evaluated in the emergency room vital examination on presentation revealed a temperature of 98.3 pulse 89 respiration 20 blood pressure 115/73 pulse ox 95% on 5 L nasal cannula Laboratory data revealed a white blood count of 11.4 hemoglobin 12.7 platelet count 190 BUN 20 creatinine 0.64 influenza A and B RSV and COVID-19 PCR were all negative Testing in the emergency room revealed chest x-ray revealed pulmonary congestion suggestive of congestive heart failure exacerbation and a new 4.7 masslike consolidation in the right mid to lower lung Patient was admitted to medical floor for further evaluation and treatment Past medical history is significant for history of hypertension, history of hyperlipidemia, history of hypothyroidism, history of diabetes mellitus, history of COPD, history of congestive heart failure, history of morbid obesity, history of recurrent episodes of bilateral lower extremity cellulitis. On review of systems patient is alert and oriented x 3 in no apparent distress, she is complaining of generalized body ache, she is complaining of shortness of breath, otherwise she denies any complaints there is no fever or chills no headache or dizziness no chest pain, she has occasional cough no nausea or vomiting no abdominal pain no diarrhea and no urinary symptoms. On 07/05/2024 patient is alert and oriented x 3. Awaiting consulting providers input. Patient remains on IV Lasix. CT of the chest has been completed. At this time patient denies chest pain. Patient denies nausea vomiting or diarrhea. Patient denies any urinary burning or frequency On 07/06/2024 patient is alert and oriented x 3. Patient remains on IV Lasix and IV antibiotics. Cardiology pulmonary and infectious disease services are following. Current vital signs temp 98.1, heart rate 67, respiratory rate 15, blood pressure 96/53 with a pulse ox of 93% on 4 L. Patient denies chest pain or shortness of breath. Patient denies nausea vomiting or diarrhea. Patient denies any urinary burning or frequency. On 07/07/2024 patient was seen and examined on the telemetry floor she is somnolent arousable in no apparent distress, yesterday patient was agitated and aggressive with medical staff, Seroquel was added to her medication regimen, however today she is more somnolent, Seroquel will be changed to as needed only. There is no fever or chills no headache or dizziness no chest pain patient still has shortness of breath with any activity and cough no nausea or vomiting no abdominal pain no diarrhea no urinary symptoms. On 07/08/2024 patient was seen and examined on the telemetry floor, she is so mnolent responsive in no apparent distress, currently she is maintained on BiPAP, she had episodes of agitation through the night, she was pulling off her IV in the BiPAP, she received 1 dose of IM Haldol, she is maintained on soft restraints at this time, her vital examination reveals a temperature of 99.8 pulse 109 respiration 22 pulse ox 95% on BiPAP FiO2 40% she is maintained on IV daptomycin infectious disease are following On 07/09/2024 patient was seen and examined on the telemetry floor, she is somnolent responsive in no apparent distress, she is still having episodes of agitation requiring as needed Seroquel use, otherwise she is improving gradually, there is no fever or chills no headache or dizziness no chest pain, she has shortness of breath with any activity, no nausea or vomiting no abdominal pain no diarrhea and no urinary symptoms, she remains on IV antibiotics, infectious disease are following, also cardiology and pulmonary are following On 07/10/2024 patient remains somnolent on BiPAP. Pulmonary and infectious disease services following. Patient remains on IV antibiotics. Patient remains on IV Diamox. Current vital signs temp 99.8, heart rate 78, respiratory rate 18, blood pressure 123/69 with a pulse ox of 96% on BiPAP with an FiO2 of 40. On 07/11/2024 patient was seen and examined on the medical floor, she is alert responsive in no apparent distress, she was maintained on BiPAP through the night, there is no fever or chills no headache or dizziness no chest pain no shortness of breath at rest, she has occasional cough and severe shortness of breath with any activity no nausea or vomiting no abdominal pain no diarrhea no urinary symptoms. On 07/12/2024 patient is alert but remains confused. Patient remains in the ICU. Patient was on BiPAP for 6 hours. Patient did require Precedex for increased agitation. Patient remains on IV cefepime and Diamox. Along with scheduled Bumex. Colace added for constipation. Patient denies chest pain. Patient denies nausea vomiting or diarrhea. Patient denies any urinary burning frequency On 07/13/2024 patient is more alert today. Per nursing staff plans for HANNA due to bacteremia. Current vital signs temp 99.0, heart rate 92, respiratory rate 25, blood pressure 125/69 with a pulse ox of 97% on 6 L. Patient denies chest pain. Patient denies nausea vomiting or diarrhea. Patient denies any urinary burning or frequency. Patient remains on Diamox and IV Maxipime. On 07/14/2024 patient was seen and examined on the telemetry floor, she is alert and oriented x 3 in no apparent distress, during the night patient required BiPAP, she had an episode of agitation and she received IM Haldol, yesterday e vening patient had an episode of atrial fibrillation with rapid ventricular response, she received IV Cardizem, and her rhythm converted back to normal sinus rhythm. Otherwise no issues since yesterday, patient denies any chest pain, there is no shortness of breath at rest, no fever or chills no headache or dizziness no palpitation, no nausea or vomiting no abdominal pain no diarrhea and no urinary symptoms. On 07/15/2024 patient is alert and oriented x 3. Patient's mentation improved. Patient denies chest pain or shortness of breath. Patient denies nausea vomiting or diarrhea. Patient denies any urinary burning or frequency. Current vital signs temp 97.8, heart 94, respiratory 20, blood pressure 122/58 with a pulse ox of 93% on 3 L. Patient remains on daptomycin and gentamicin. On 07/16/2024 patient was seen and examined on the telemetry floor, she is alert and oriented x 3 in no apparent distress, there is no fever or chills no headache or dizziness, no chest pain, she has shortness of breath with any activity she has occasional cough no nausea or vomiting no abdominal pain no diarrhea no blood in the stool, no urinary symptoms. Rock catheter remains in, bilateral lower extremity wrapping and protective boots are on. Vital exam reveals a temperature of 98.1 pulse 86 respiration 18 blood pressure 113/74 pulse ox 98% on 6 L nasal cannula. White blood count is 9.0 hemoglobin 11.6 platelet count 246 sodium 135 potassium 4.0 chloride 98 CO2 34 BUN 22 creatinine 0.62 On 07/17/2024 patient currently resting comfortably on BiPAP. Neurology services have been consulted for altered mental status. Patient remains on IV daptomycin and gentamicin. Pulmonary, cardiology, infectious disease and neurology services consulted. Current vital signs temp 97.9, heart rate 79, respiratory rate 16, blood pressure 127/79 with pulse ox 98% on 6 L. Objective - Vital Signs Vital signs: Vital Signs Temp 97.9 F 07/16/24 20:00 Pulse 81 07/17/24 04:00 Resp 16 07/17/24 04:00 BP 124/66 07/17/24 04:00 Pulse Ox 98 07/17/24 04:00 FiO2 40 07/17/24 08:19 Intake & Output 07/16/24 07/17/24 07/17/24 18:59 06:59 18:59 Intake Total 720 Output Total 3100 1425 Balance -2380 -1425 Weight 105.5 kg Intake: Oral 720 Output: Urine 3100 1425 Other: Voiding Method Indwelling Catheter Indwelling Catheter # Voids 1 - Exam In general patient is alert and oriented x 3 in no distress HEENT head normocephalic and atraumatic Neck is supple no JVD no goiter no lymphadenopathy no carotid bruit Chest examination reveals a scattered crackles bilaterally no wheezing Cardiac exam reveals regular heart sounds S1 and S2 no gallops no murmurs Abdomen is soft nontender no organomegaly with normal bowel sounds Extremity exam reveals 3+ edema with erythema and chronic stasis changes, multiple small ulceration with scabbing no cyanosis or clubbing Neurological examination reveals no gross focal deficits - Labs CBC & Chem 7: 07/17/24 06:00 07/17/24 06:00 Labs: Abnormal Lab Results - Last 24 Hours (Table) 07/16/24 07/16/24 07/16/24 Range/Units 11:22 16:37 20:18 RBC (4.10-5.20) 10*6/uL Hgb (12.0-15.0) g/dL Hct (37.2-46.3) % MCV (80.0-97.0) fL MCHC (32.0-37.0) g/dL Sodium (137-145) mmol/L Chloride (98-107) mmol/L Carbon Dioxide (22-30) mmol/L BUN (7-17) mg/dL Glucose (74-99) mg/dL POC Glucose (mg/dL) 188 H 177 H 194 H (70-110) mg/dL AST (14-36) U/L Total Protein (6.3-8.2) g/dL Albumin (3.5-5.0) g/dL 07/17/24 07/17/24 07/17/24 Range/Units 06:00 06:00 06:09 RBC 3.63 L (4.10-5.20) 10*6/uL Hgb 10.6 L (12.0-15.0) g/dL Hct 35.5 L (37.2-46.3) % MCV 97.8 H (80.0-97.0) fL MCHC 29.9 L (32.0-37.0) g/dL Sodium 135 L (137-145) mmol/L Chloride 92 L (98-107) mmol/L Carbon Dioxide 39 H (22-30) mmol/L BUN 22 H (7-17) mg/dL Glucose 174 H (74-99) mg/dL POC Glucose (mg/dL) 186 H (70-110) mg/dL AST 48 H (14-36) U/L Total Protein 5.5 L (6.3-8.2) g/dL Albumin 2.8 L (3.5-5.0) g/dL Microbiology - Last 24 Hours (Table) 07/14/24 05:56 Blood Culture - Preliminary Blood Assessment and Plan Plan: Acute congestive heart failure exacerbation Bacteremia New 4.7 cm masslike consolidation opacity in the right midlung Fall at home, with generalized body pain Bilateral lower extremity cellulitis, with multiple open ulcers Underlying history of hypertension Underlying history of hyperlipidemia Underlying history of diabetes mellitus Underlying history of COPD Underlying history of morbid obesity At this time patient was admitted to telemetry floor Patient has been transferred out of the intensive care unit Remains on IV antibiotics Continue BiPAP Consultation for pulmonary, infectious disease, and cardiology initiated Will follow closely
[2024-07-17 12:16] LABS: Glucose,Whole Blood 220 mg/dL (70-110)
--- NOTE | 2024-07-17 12:17 | P.PN ---
Subjective Progress Note Date: 07/17/24 HISTORY OF PRESENT ILLNESS: This is a 73-year-old male with a past medical history significant for COPD, congestive heart failure, hypertension, and hyperlipidemia. 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 We have been asked to see the patient in consultation for congestive heart failure. Patient examined at the bedside. Patient presented to the hospital with a chief complaint of increased lower extremity swelling and shortness of breath. Patient was found to be in CHF and was started on IV Lasix. Patient currently denies any chest pain or pressure. Vital signs are stable. DIAGNOSTICS: - EKG reveals sinus mechanism with no signs of acute ischemia - Chest xray correlate for suspected CHF exacerbation. Additionally there is a 4.7 cm masslike consolidation in the right mid to lower lung. Underlying mass/malignancy is not excluded. - Laboratory data: WBC 11.22. Hemoglobin 11.3. Platelet count 185. Sodium 141. Potassium 4.3. BUN 17. Creatinine 0.9. - Current home cardiac medications include rosuvastatin 20 mg daily, enalapril 20 mg daily, and Lasix 40 mg in the morning and 20 mg in the afternoon. 07/06/2024 Patient examined this morning at the bedside. Patient apparently became hypotensive overnight with blood pressures in the 70s and 80s. Her Lasix was discontinued. However she was continued on lisinopril per primary medicine. Systolic blood pressure this morning is in the 90s. July 07, 2024 The patient was seen this morning she still have some change in mental status and she is somewhat lethargic and possibly dehydrated. She is getting a workup for possible sepsis. Hemodynamically she is stable now. The echo is as described above showed normal LV systolic function with mild aortic stenosis. The physical examination is remarkable for regular rhythm with a systolic murmur at the right and left upper sternal border with severe bilateral lower extremi ties chronic skin changes and chronic edema July 08, 2024 The patient was seen and evaluated this morning with apparently she was transferred from 6 N. to 3 [address] She still have change in mental status currently under workup. Hemodynamically she is stable. She still have bilateral lower extremities edema. I am going to give the patient only 1 dose of Lasix IV and continue monitor the kidney function and electrolytes. She is under an investigation for right upper lobe mass with possible need for PET scan. The mass was seen on the CT scan as well as chest x-ray. The physical examination i s remarkable for change in mental status with regular rate and rhythm and mild sinus tachycardia and diminished breathing sounds bilaterally which is still hypoxic requiring BiPAP at 40% 07/09/2024 Patient has been on BiPAP, severely hypercapnic with retention of bicarb with metabolic encephalopathy Bicarb 44, BUN 29, creatinine 0.5, Hb 10.6 07/10/2024 Patient remains somnolent on BiPAP She is on IV antibiotics BP 123/69, heart rate 76, Echo from this admission shows an EF of 55%, moderate concentric LVH, moderate to severe pulmonary hypertension with RVSP of 54 mmHg, 07/11/2024 Patient examined this morning at the bedside. Patient remains confused. She is currently on BiPAP. BUN 28. Creatinine 0.68. 07/12/2024 Patient seen and examined at bedside this a.m. Patient was transferred to ICU because of confusion and delirium. For this patient received Precedex. Confusion delirium is most likely because of CO2 retention. 07/13/2024 Patient is still on 4 L nasal cannula supplemental oxygen, very drowsy, with hypoventilation related hypercapnia 07/14/2024 It was noted that patient went into atrial fibrillation yesterday. For this she was started on Cardizem drip and briefly thereafter she converted out of atrial fibrillation. She was transfer out of ICU to telemetry floor yesterday. BUN 32, creatinine 0.8 Negative fluid balance of 1.5 L yesterday. 07/15/2024 No further atrial fibrillation on telemetry. BP 130/63, heart rate 78 bpm BUN 30, creatinine 0.6, Still very weak, 3 L oxygen, 93 saturation, 07/16 Patient seen and examined. Patient states she is feeling better in general and also her breathing is improved. She states she still has some cough and some wheezing. She denies palpitations. No chest pain. Blood pressure 122/83, heart rate 82, pulse ox 96% on 6 L nasal cannula. Repeat blood work reveals hemoglobin 9.6, sodium 135, potassium 4, BUN 22 and creatinine 0.62. 07/17 Patient seen and examined. Patient denies having any chest pain or palpitations. Her shortness of breath is improving and she slept well last night. She has had good urine output and currently on oral Bumex. Blood pressure 126/55, heart rate 65, pulse ox 98% on 5 L nasal cannula. Repeat blood work reveals hemoglobin 10.6, BUN 22 creatinine 0.69, sodium 135 and potassium 4.2. CO2 39. Dr. Godwin is requesting a HANNA regarding bacteremia. PHYSICAL EXAM: VITAL SIGNS: Reviewed. GENERAL: Well-developed in no acute distress. HEENT: Head is normocephalic. Pupils are equal, round. Sclerae anicteric. Mucous membranes of the mouth are moist. Neck supple. No JVD or thyromegaly LUNGS: Respirations even and unlabored. Lungs essentially clear to auscultation bilaterally. No wheezing HEART: Regular rate and rhythm. S1 and S2 heard. 2/6 systolic murmur EXTREMITIES: Normal range of motion. No clubbing or cyanosis. Peripheral pulses intact. Bilateral lower extremity edema with evidence of cellulitis ASSESSMENT: Paroxysmal atrial fibrillation, currently in sinus rhythm Bilateral lower extremity cellulitis Acute on chronic heart failure with preserved EF Metabolic encephalopathy due to hypercapnia Acute on chronic hypoxic and hypercapnic respiratory failure Severe COPD Right lung mass, pulmonary following Hypertension, Hyperlipidemia Morbid obesity: BMI 46.1 PLAN: We will discuss the matter of HANNA with Dr. Alarcon Continue patient on Eliquis 5 mg twice daily for paroxysmal A-fib Continue patient on Bumex 1 mg p.o. twice daily Continue metoprolol tartrate 25 mg twice daily, Aldactone 25 mg daily Patient was started on Diamox At the time of discharge, patient will follow-up in the office with Dr. Alarcon in 2 weeks. Nurse practitioner note has been reviewed, I agree with documented findings and plan of care. Patient was seen and examined. Objective - Vital Signs Vital signs: Vital Signs Temp 97.9 F 07/16/24 20:00 Pulse 81 07/17/24 04:00 Resp 16 07/17/24 04:00 BP 124/66 07/17/24 04:00 Pulse Ox 98 07/17/24 04:00 FiO2 40 07/17/24 08:19 Intake & Output 07/16/24 07/17/24 07/17/24 18:59 06:59 18:59 Intake Total 720 Output Total 3100 1425 Balance -2380 -1425 Weight 105.5 kg Intake: Oral 720 Output: Urine 3100 1425 Other: Voiding Method Indwelling Catheter Indwelling Catheter # Voids 1 - Labs CBC & Chem 7: 07/17/24 06:00 07/17/24 06:00 Labs: Abnormal Lab Results - Last 24 Hours (Table) 07/16/24 07/16/24 07/16/24 Range/Units 11:22 16:37 20:18 RBC (4.10-5.20) 10*6/uL Hgb (12.0-15.0) g/dL Hct (37.2-46.3) % MCV (80.0-97.0) fL MCHC (32.0-37.0) g/dL Sodium (137-145) mmol/L Chloride (98-107) mmol/L Carbon Dioxide (22-30) mmol/L BUN (7-17) mg/dL Glucose (74-99) mg/dL POC Glucose (mg/dL) 188 H 177 H 194 H (70-110) mg/dL AST (14-36) U/L Total Protein (6.3-8.2) g/dL Albumin (3.5-5.0) g/dL 07/17/24 07/17/24 07/17/24 Range/Units 06:00 06:00 06:09 RBC 3.63 L (4.10-5.20) 10*6/uL Hgb 10.6 L (12.0-15.0) g/dL Hct 35.5 L (37.2-46.3) % MCV 97.8 H (80.0-97.0) fL MCHC 29.9 L (32.0-37.0) g/dL Sodium 135 L (137-145) mmol/L Chloride 92 L (98-107) mmol/L Carbon Dioxide 39 H (22-30) mmol/L BUN 22 H (7-17) mg/dL Glucose 174 H (74-99) mg/dL POC Glucose (mg/dL) 186 H (70-110) mg/dL AST 48 H (14-36) U/L Total Protein 5.5 L (6.3-8.2) g/dL Albumin 2.8 L (3.5-5.0) g/dL Microbiology - Last 24 Hours (Table) 07/14/24 05:56 Blood Culture - Preliminary Blood
--- NOTE | 2024-07-17 12:33 | P.CNNES ---
History of Present Illness Consult date: 07/17/24 Requesting physician: Shalom Gray Reason for Consult: recurrent ams History of Present Illness: This is a 73 year-old woman who presents to emergency department because of shortness of breath, leg swelling and cough. Neurology is consulted for recurrent altered mental status. Patient is not great historian. She stated she is ex-tobacco user. She is found to have mass in the right lung. Patient denies any history of stroke or seizure. Denies any focal weakness. Denies any headache. Some of the work-up during this hospital visit consisted of: ABG: PH 7.29-->7.33; PCO2: was in 90's-->70's; Po2: 50's, HCO3 40's-->30's I reviewed the rest of lab work-up. CT chest: right upper/middle lobe mass concerning for malignancy Review of Systems Limited but as per HPI. Past Medical History Past Medical History: Heart Failure, COPD, Diabetes Mellitus, GERD/Reflux, Hyperlipidemia, Thyroid Disorder Additional Past Medical History / Comment(s): home O2 3-6L per pt. History of Any Multi-Drug Resistant Organisms: None Reported Past Surgical History: Cholecystectomy Additional Past Surgical History / Comment(s): foot Left plate and pins Past Anesthesia/Blood Transfusion Reactions: No Reported Reaction Past Psychological History: Anxiety Additional Psychological History / Comment(s): Anxiety Smoking Status: Former smoker Past Alcohol Use History: None Reported Additional Past Alcohol Use History / Comment(s): STARTED SMOKING AT AGE 16, SIG OTHER STATED SHE SMOKES 1.5 PPD Past Drug Use History: None Reported Additional Drug Use History / Comment(s): RARE USE OF MARIJUANA - Past Family History Mother Family Medical History: Hypertension Father Family Medical History: Cancer Medications and Allergies Home Medications Medication Instructions Recorded Confirmed Type Albuterol Inhaler [Ventolin Hfa 1 - 2 puff INHALATION RT-Q6H PRN 01/08/15 07/04/24 History Inhaler] Enalapril [Vasotec] 20 mg PO DAILY 07/04/24 07/04/24 History Ergocalciferol [Vitamin D2 (1250 1,250 mcg PO MO 07/04/24 07/04/24 History Mcg = [id number] Iu)] Furosemide [Lasix] 20 mg PO DAILY@1830 07/04/24 07/04/24 History Furosemide [Lasix] 40 mg PO QAM 07/04/24 07/04/24 History HYDROcodone/APAP 10-325MG [[place] 1 tab PO TID PRN 07/04/24 07/04/24 History 10-325] Insulin Glargine,Hum.rec.anlog 70 units SQ DAILY 07/04/24 07/04/24 History [Lantus Solostar Pen] Phentermine HCl [Adipex-P] 37.5 mg PO DAILY 07/04/24 07/04/24 History Rosuvastatin [Crestor] 20 mg PO DAILY 07/04/24 07/04/24 History traZODone HCL [Desyrel] 50 mg PO HS 07/04/24 07/04/24 History Allergies Allergy/AdvReac Type Severity Reaction Status Date / Time Penicillins Allergy Rash/Hives Verified 07/04/24 14:26 Physical Examination - Vital Signs Vital Signs: Vital Signs Temp Pulse Resp BP Pulse Ox FiO2 07/17/24 11:45 98.5 F 65 16 126/55 98 07/17/24 08:35 97.5 F L 78 15 106/71 95 07/17/24 08:19 40 07/17/24 04:00 81 16 124/66 98 07/17/24 00:00 81 16 133/69 98 07/16/24 20:00 97.9 F 79 16 127/79 98 07/16/24 15:19 98.2 F 87 17 130/78 96 07/16/24 14:07 40 Intake and Output 07/16/24 07/17/24 07/17/24 22:59 06:59 14:59 Intake Total 240 720 Output Total 1400 1425 Balance -1160 -1425 720 Intake: Oral 240 720 Output: Urine 1400 1425 Other: Voiding Method Indwelling Catheter Indwelling Catheter Indwelling Catheter # Voids 1 General: Lying in bed and is not in acute distress Neuro: The patient is awake, alert, oriented to self and place. Correctly stated current month. Is somewhat slow following commands. No aphasia from limited language. Pupils are round, 3mm and reactive to light. Visual velásquez are full to confrontation. EOM intact and no nystagmus. No facial weakness. No dysarthria. Motor: Lifting bilateral upper extremities above gravity equally and wiggling toes. Sensation: Normal to touch throughout. Cerebellar: Normal finger to nose bilaterally Reflex: Limited because of cooperation. Plantars: Mute. Results - Laboratory Findings CBC and BMP: 07/17/24 06:00 07/17/24 06:00 Abnormal Lab Findings: Abnormal Labs 07/04/24 07/04/24 07/04/24 10:33 10:33 10:33 WBC 11.4 H RBC Hgb Hct MCV MCHC 30.3 L RDW Neutrophils # 9.6 H Monocytes # Eosinophils # ESR ABG pH ABG pCO2 ABG pO2 ABG HCO3 ABG Total CO2 ABG O2 Saturation Hemoglobin Sodium Chloride 92 L Carbon Dioxide 37 H BUN 20 H Creatinine BUN/Creatinine Ratio Glucose 204 H POC Glucose (mg/dL) Calcium AST Creatine Kinase 151 H C-Reactive Protein Total Protein 6.1 L Albumin 3.3 L Albumin/Globulin Ratio Urine Protein Trace H Urine Glucose (UA) 1+ H 07/05/24 07/05/24 07/05/24 05:42 05:42 06:28 WBC 11.22 H RBC 3.90 L Hgb 11.3 L Hct MCV 100.3 H MCHC 28.9 L RDW 15.3 H Neutrophils # Monocytes # 1.04 H Eosinophils # ESR ABG pH ABG pCO2 ABG pO2 ABG HCO3 ABG Total CO2 ABG O2 Saturation Hemoglobin Sodium Chloride 94 L Carbon Dioxide 39.1 H BUN Creatinine BUN/Creatinine Ratio Glucose 197 H POC Glucose (mg/dL) 169 H Calcium 8.6 L AST Creatine Kinase C-Reactive Protein Total Protein 5.7 L Albumin 3.3 L Albumin/Globulin Ratio 1.38 L Urine Protein Urine Glucose (UA) 07/05/24 07/05/24 07/05/24 12:04 17:07 20:02 WBC RBC Hgb Hct MCV MCHC RDW Neutrophils # Monocytes # Eosinophils # ESR ABG pH ABG pCO2 ABG pO2 ABG HCO3 ABG Total CO2 ABG O2 Saturation Hemoglobin Sodium Chloride Carbon Dioxide BUN Creatinine BUN/Creatinine Ratio Glucose POC Glucose (mg/dL) 186 H 200 H 188 H Calcium AST Creatine Kinase C-Reactive Protein Total Protein Albumin Albumin/Globulin Ratio Urine Protein Urine Glucose (UA) 07/05/24 07/06/24 07/06/24 22:18 00:15 00:15 WBC RBC Hgb Hct MCV MCHC 30.2 L RDW Neutrophils # 8.0 H Monocytes # Eosinophils # ESR ABG pH ABG pCO2 ABG pO2 ABG HCO3 ABG Total CO2 ABG O2 Saturation Hemoglobin Sodium 134 L Chloride 89 L Carbon Dioxide 38 H BUN 29 H Creatinine BUN/Creatinine Ratio Glucose 132 H POC Glucose (mg/dL) 157 H Calcium AST Creatine Kinase C-Reactive Protein Total Protein Albumin Albumin/Globulin Ratio Urine Protein Urine Glucose (UA) 07/06/24 07/06/24 07/06/24 12:57 17:03 19:10 WBC RBC Hgb Hct MCV MCHC RDW Neutrophils # Monocytes # Eosinophils # ESR ABG pH ABG pCO2 ABG pO2 ABG HCO3 ABG Total CO2 ABG O2 Saturation Hemoglobin Sodium Chloride Carbon Dioxide BUN Creatinine BUN/Creatinine Ratio Glucose POC Glucose (mg/dL) 186 H 188 H 166 H Calcium AST Creatine Kinase C-Reactive Protein Total Protein Albumin Albumin/Globulin Ratio Urine Protein Urine Glucose (UA) 07/07/24 07/07/24 07/07/24 05:30 05:30 05:58 WBC RBC Hgb 11.9 L Hct MCV 103.6 H MCHC 27.9 L RDW 15.0 H Neutrophils # 7.93 H Monocytes # Eosinophils # 0.02 L ESR ABG pH ABG pCO2 ABG pO2 ABG HCO3 ABG Total CO2 ABG O2 Saturation Hemoglobin Sodium Chloride Carbon Dioxide 38.8 H BUN Creatinine BUN/Creatinine Ratio 40.00 H Glucose 153 H POC Glucose (mg/dL) 142 H Calcium AST Creatine Kinase C-Reactive Protein Total Protein Albumin 3.5 L Albumin/Globulin Ratio 1.30 L Urine Protein Urine Glucose (UA) 07/07/24 07/07/24 07/08/24 12:00 16:01 06:21 WBC RBC Hgb Hct MCV MCHC RDW Neutrophils # Monocytes # Eosinophils # ESR ABG pH 7.29 L ABG pCO2 91 H* ABG pO2 ABG HCO3 43 H* ABG Total CO2 46 H ABG O2 Saturation Hemoglobin Sodium Chloride Carbon Dioxide BUN Creatinine BUN/Creatinine Ratio Glucose POC Glucose (mg/dL) 144 H 52 L Calcium AST Creatine Kinase C-Reactive Protein Total Protein Albumin Albumin/Globulin Ratio Urine Protein Urine Glucose (UA) 07/08/24 07/08/24 07/08/24 07:10 09:02 09:02 WBC RBC Hgb 11.2 L Hct MCV MCHC 29.2 L RDW Neutrophils # Monocytes # Eosinophils # ESR ABG pH ABG pCO2 ABG pO2 ABG HCO3 ABG Total CO2 ABG O2 Saturation Hemoglobin Sodium Chloride 93 L Carbon Dioxide 40 H BUN 29 H Creatinine BUN/Creatinine Ratio Glucose POC Glucose (mg/dL) 112 H Calcium AST Creatine Kinase C-Reactive Protein Total Protein 5.8 L Albumin 3.0 L Albumin/Globulin Ratio Urine Protein Urine Glucose (UA) 07/08/24 07/08/24 07/08/24 16:17 16:19 16:37 WBC RBC Hgb Hct MCV MCHC RDW Neutrophils # Monocytes # Eosinophils # ESR ABG pH ABG pCO2 ABG pO2 ABG HCO3 ABG Total CO2 ABG O2 Saturation Hemoglobin Sodium Chloride Carbon Dioxide BUN Creatinine BUN/Creatinine Ratio Glucose POC Glucose (mg/dL) 52 L 52 L 130 H Calcium AST Creatine Kinase C-Reactive Protein Total Protein Albumin Albumin/Globulin Ratio Urine Protein Urine Glucose (UA) 07/09/24 07/09/24 07/09/24 05:35 05:35 05:56 WBC RBC 3.69 L Hgb 10.6 L Hct MCV MCHC 30.0 L RDW Neutrophils # Monocytes # Eosinophils # ESR ABG pH ABG pCO2 ABG pO2 ABG HCO3 ABG Total CO2 ABG O2 Saturation Hemoglobin Sodium Chloride 93 L Carbon Dioxide 44 H* BUN 29 H Creatinine 0.50 L BUN/Creatinine Ratio Glucose 61 L POC Glucose (mg/dL) 65 L Calcium AST 40 H Creatine Kinase C-Reactive Protein Total Protein 5.5 L Albumin 2.8 L Albumin/Globulin Ratio Urine Protein Urine Glucose (UA) 07/09/24 07/10/24 07/10/24 12:36 10:38 10:38 WBC RBC Hgb Hct MCV MCHC 29.0 L RDW Neutrophils # Monocytes # Eosinophils # ESR ABG pH 7.34 L ABG pCO2 86 H* ABG pO2 162 H ABG HCO3 47 H* ABG Total CO2 49 H ABG O2 Saturation 99.8 H Hemoglobin 10.8 L Sodium Chloride 94 L Carbon Dioxide 36 H BUN 24 H Creatinine BUN/Creatinine Ratio Glucose 112 H POC Glucose (mg/dL) Calcium AST 50 H Creatine Kinase C-Reactive Protein Total Protein 5.7 L Albumin 2.9 L Albumin/Globulin Ratio Urine Protein Urine Glucose (UA) 07/10/24 07/10/24 07/10/24 11:36 12:49 16:53 WBC RBC Hgb Hct MCV MCHC RDW Neutrophils # Monocytes # Eosinophils # ESR ABG pH 7.33 L ABG pCO2 78 H* ABG pO2 129 H ABG HCO3 41 H* ABG Total CO2 44 H ABG O2 Saturation 99.0 H Hemoglobin Sodium Chloride Carbon Dioxide BUN Creatinine BUN/Creatinine Ratio Glucose POC Glucose (mg/dL) 125 H 146 H Calcium AST Creatine Kinase C-Reactive Protein Total Protein Albumin Albumin/Globulin Ratio Urine Protein Urine Glucose (UA) 07/10/24 07/11/24 07/11/24 20:05 06:00 07:02 WBC RBC Hgb 10.9 L Hct MCV MCHC 29.1 L RDW Neutrophils # Monocytes # Eosinophils # ESR ABG pH ABG pCO2 ABG pO2 ABG HCO3 ABG Total CO2 ABG O2 Saturation Hemoglobin Sodium Chloride Carbon Dioxide BUN Creatinine BUN/Creatinine Ratio Glucose POC Glucose (mg/dL) 169 H 142 H Calcium AST Creatine Kinase C-Reactive Protein Total Protein Albumin Albumin/Globulin Ratio Urine Protein Urine Glucose (UA) 07/11/24 07/11/24 07/11/24 07:02 11:11 13:49 WBC RBC Hgb Hct MCV MCHC RDW Neutrophils # Monocytes # Eosinophils # ESR ABG pH ABG pCO2 71 H* ABG pO2 ABG HCO3 40 H* ABG Total CO2 42 H ABG O2 Saturation Hemoglobin 11.2 L Sodium Chloride 95 L Carbon Dioxide 39 H BUN 28 H Creatinine BUN/Creatinine Ratio Glucose 145 H POC Glucose (mg/dL) 166 H Calcium AST 46 H Creatine Kinase C-Reactive Protein Total Protein 5.5 L Albumin 2.8 L Albumin/Globulin Ratio Urine Protein Urine Glucose (UA) 07/11/24 07/12/24 07/12/24 19:34 03:00 03:00 WBC RBC 3.77 L Hgb 10.7 L Hct MCV MCHC 28.5 L RDW Neutrophils # Monocytes # Eosinophils # ESR ABG pH ABG pCO2 ABG pO2 ABG HCO3 ABG Total CO2 ABG O2 Saturation Hemoglobin Sodium Chloride 96 L Carbon Dioxide 36 H BUN 34 H Creatinine BUN/Creatinine Ratio Glucose 127 H POC Glucose (mg/dL) 132 H Calcium AST Creatine Kinase C-Reactive Protein Total Protein Albumin Albumin/Globulin Ratio Urine Protein Urine Glucose (UA) 07/12/24 07/12/24 07/12/24 06:26 09:47 11:27 WBC RBC Hgb Hct MCV MCHC RDW Neutrophils # Monocytes # Eosinophils # ESR ABG pH ABG pCO2 65 H ABG pO2 52 L* ABG HCO3 36 H ABG Total CO2 37 H ABG O2 Saturation 85.3 L Hemoglobin 11.1 L Sodium Chloride Carbon Dioxide BUN Creatinine BUN/Creatinine Ratio Glucose POC Glucose (mg/dL) 139 H 133 H Calcium AST Creatine Kinase C-Reactive Protein Total Protein Albumin Albumin/Globulin Ratio Urine Protein Urine Glucose (UA) 07/12/24 07/12/24 07/13/24 16:04 20:04 03:11 WBC RBC Hgb Hct MCV MCHC RDW Neutrophils # Monocytes # Eosinophils # ESR ABG pH ABG pCO2 ABG pO2 ABG HCO3 ABG Total CO2 ABG O2 Saturation Hemoglobin Sodium 135 L Chloride 94 L Carbon Dioxide 32 H BUN 33 H Creatinine BUN/Creatinine Ratio Glucose 132 H POC Glucose (mg/dL) 121 H 121 H Calcium AST Creatine Kinase C-Reactive Protein Total Protein Albumin Albumin/Globulin Ratio Urine Protein Urine Glucose (UA) 07/13/24 07/13/24 07/13/24 03:11 05:36 10:45 WBC RBC Hgb 11.0 L Hct MCV MCHC 28.4 L RDW Neutrophils # Monocytes # Eosinophils # ESR ABG pH ABG pCO2 ABG pO2 ABG HCO3 ABG Total CO2 ABG O2 Saturation Hemoglobin Sodium Chloride Carbon Dioxide BUN Creatinine BUN/Creatinine Ratio Glucose POC Glucose (mg/dL) 120 H 185 H Calcium AST Creatine Kinase C-Reactive Protein Total Protein Albumin Albumin/Globulin Ratio Urine Protein Urine Glucose (UA) 07/13/24 07/13/24 07/13/24 12:17 16:15 19:49 WBC RBC Hgb Hct MCV MCHC RDW Neutrophils # Monocytes # Eosinophils # ESR ABG pH ABG pCO2 ABG pO2 ABG HCO3 ABG Total CO2 ABG O2 Saturation Hemoglobin Sodium Chloride Carbon Dioxide BUN Creatinine BUN/Creatinine Ratio Glucose POC Glucose (mg/dL) 142 H 129 H 129 H Calcium AST Creatine Kinase C-Reactive Protein Total Protein Albumin Albumin/Globulin Ratio Urine Protein Urine Glucose (UA) 07/14/24 07/14/24 07/14/24 05:56 05:56 05:56 WBC 10.9 H RBC Hgb Hct MCV MCHC 29.7 L RDW Neutrophils # Monocytes # Eosinophils # ESR 90 H ABG pH ABG pCO2 ABG pO2 ABG HCO3 ABG Total CO2 ABG O2 Saturation Hemoglobin Sodium 132 L Chloride 91 L Carbon Dioxide 35 H BUN 32 H Creatinine BUN/Creatinine Ratio Glucose 140 H POC Glucose (mg/dL) 141 H Calcium AST Creatine Kinase C-Reactive Protein 7.7 H Total Protein Albumin Albumin/Globulin Ratio Urine Protein Urine Glucose (UA) 07/14/24 07/14/24 07/15/24 11:38 20:18 06:11 WBC RBC Hgb Hct MCV MCHC RDW Neutrophils # Monocytes # Eosinophils # ESR ABG pH ABG pCO2 ABG pO2 ABG HCO3 ABG Total CO2 ABG O2 Saturation Hemoglobin Sodium Chloride Carbon Dioxide BUN Creatinine BUN/Creatinine Ratio Glucose POC Glucose (mg/dL) 120 H 149 H 151 H Calcium AST Creatine Kinase C-Reactive Protein Total Protein Albumin Albumin/Globulin Ratio Urine Protein Urine Glucose (UA) 07/15/24 07/15/24 07/15/24 06:27 06:27 11:29 WBC RBC Hgb 10.7 L Hct MCV MCHC 28.8 L RDW Neutrophils # Monocytes # Eosinophils # ESR ABG pH ABG pCO2 ABG pO2 ABG HCO3 ABG Total CO2 ABG O2 Saturation Hemoglobin Sodium 131 L Chloride 91 L Carbon Dioxide 37 H BUN 30 H Creatinine BUN/Creatinine Ratio Glucose 140 H POC Glucose (mg/dL) 161 H Calcium AST 80 H Creatine Kinase C-Reactive Protein Total Protein 5.5 L Albumin 2.8 L Albumin/Globulin Ratio Urine Protein Urine Glucose (UA) 07/15/24 07/15/24 07/15/24 16:13 20:08 22:36 WBC RBC Hgb Hct MCV MCHC RDW Neutrophils # Monocytes # Eosinophils # ESR ABG pH 7.33 L ABG pCO2 73 H* ABG pO2 120 H ABG HCO3 38 H ABG Total CO2 41 H ABG O2 Saturation 99.0 H Hemoglobin 11.0 L Sodium Chloride Carbon Dioxide BUN Creatinine BUN/Creatinine Ratio Glucose POC Glucose (mg/dL) 156 H 196 H Calcium AST Creatine Kinase C-Reactive Protein Total Protein Albumin Albumin/Globulin Ratio Urine Protein Urine Glucose (UA) 07/16/24 07/16/24 07/16/24 06:06 06:19 06:19 WBC RBC Hgb Hct MCV MCHC 30.1 L RDW Neutrophils # Monocytes # Eosinophils # ESR ABG pH ABG pCO2 ABG pO2 ABG HCO3 ABG Total CO2 ABG O2 Saturation Hemoglobin Sodium 135 L Chloride 94 L Carbon Dioxide 34 H BUN 22 H Creatinine BUN/Creatinine Ratio Glucose 160 H POC Glucose (mg/dL) 160 H Calcium AST 58 H Creatine Kinase C-Reactive Protein Total Protein 5.6 L Albumin 2.9 L Albumin/Globulin Ratio Urine Protein Urine Glucose (UA) 07/16/24 07/16/24 07/16/24 11:22 16:37 20:18 WBC RBC Hgb Hct MCV MCHC RDW Neutrophils # Monocytes # Eosinophils # ESR ABG pH ABG pCO2 ABG pO2 ABG HCO3 ABG Total CO2 ABG O2 Saturation Hemoglobin Sodium Chloride Carbon Dioxide BUN Creatinine BUN/Creatinine Ratio Glucose POC Glucose (mg/dL) 188 H 177 H 194 H Calcium AST Creatine Kinase C-Reactive Protein Total Protein Albumin Albumin/Globulin Ratio Urine Protein Urine Glucose (UA) 07/17/24 07/17/24 07/17/24 06:00 06:00 06:09 WBC RBC 3.63 L Hgb 10.6 L Hct 35.5 L MCV 97.8 H MCHC 29.9 L RDW Neutrophils # Monocytes # Eosinophils # ESR ABG pH ABG pCO2 ABG pO2 ABG HCO3 ABG Total CO2 ABG O2 Saturation Hemoglobin Sodium 135 L Chloride 92 L Carbon Dioxide 39 H BUN 22 H Creatinine BUN/Creatinine Ratio Glucose 174 H POC Glucose (mg/dL) 186 H Calcium AST 48 H Creatine Kinase C-Reactive Protein Total Protein 5.5 L Albumin 2.8 L Albumin/Globulin Ratio Urine Protein Urine Glucose (UA) Assessment and Plan Assessment: This is a 73 y/o woman who present to hospital because of shortness of breath, cough and leg swelling. She was found to have right lung mass. Altered mental status due to multifactorial: Delirium due to hospital induced hypercapnic and cellulitis New right lung mass Leg leg cellulitis Ex-tobacco user Plan: I ordered a CT head and routine EEG. Also ordered ammonia level, TSH, vitamin B12/folate. Agree with PET scan. Pulmonary team is on board. Consider Oncology consultation I.D. team is consult for leg cellulitis Will defer the rest of medical management to primary team and other specialist. The plan is discussed with pulmonary team. Thank you for the consultation. Time with Patient: Greater than 30
[2024-07-17] MEDS ORDERED: fentaNYL (PF) 50 MCG/ML 5 ML AMP IVP PRN (13:38)
[2024-07-17] MEDS ORDERED: MIDAZOLAM 2 MG/2 ML VIAL IV PRN (13:38)
--- NOTE | 2024-07-17 14:07 | P.PN ---
Subjective Progress Note Date: 07/17/24 Principal diagnosis: Reason for follow-up with lower extremity ulcer and cellulitis Patient is a 73-year-old female with a past medical history significant for COPD heart failure diabetes mellitus reflux hyperlipidemia presenting to the hospital for evaluation of a fall that happened the day of presentation to the hospital patient accidentally rolled off the couch onto the floor and was too weak to get herself up, noticed to have bilateral extremity ulcer and cellulitis prompted this consultation. On today's evaluation that is 07/17/2024, Patient is afebrile this morning patient denies having any chest pain shortness of breath, occasional cough, the patient is currently on 5 L nasal cannula oxygen, patient denies any abdominal pain no diarrhea no nausea no vomiting. Patient white count is 8.25, creatinine 0.69 Objective - Vital Signs Vital signs: Vital Signs Temp 98.5 F 07/17/24 11:45 Pulse 65 07/17/24 11:45 Resp 16 07/17/24 11:45 BP 126/55 07/17/24 11:45 Pulse Ox 98 07/17/24 11:45 FiO2 40 07/17/24 08:19 Intake & Output 07/16/24 07/17/24 07/17/24 18:59 06:59 18:59 Intake Total 720 720 Output Total 3100 1425 Balance -2380 -1425 720 Weight 105.5 kg Intake: Oral 720 720 Output: Urine 3100 1425 Other: Voiding Method Indwelling Catheter Indwelling Catheter Indwelling Catheter # Voids 1 - Exam GENERAL DESCRIPTION: An elderly female lying in bed in no distress RESPIRATORY SYSTEM: Unlabored breathing , decreased breath sounds at bases HEART: S1 S2 regular rate and rhythm , ABDOMEN: Soft , no tenderness EXTREMITIES: Bilateral lower extremity currently wrapped with an Blue wrap she did have wound on the right heel with necrotic base but no surrounding redness or drainage - Labs CBC & Chem 7: 07/17/24 06:00 07/17/24 06:00 Labs: Abnormal Lab Results - Last 24 Hours (Table) 07/16/24 07/16/24 07/17/24 Range/Units 16:37 20:18 06:00 RBC 3.63 L (4.10-5.20) 10*6/uL Hgb 10.6 L (12.0-15.0) g/dL Hct 35.5 L (37.2-46.3) % MCV 97.8 H (80.0-97.0) fL MCHC 29.9 L (32.0-37.0) g/dL Sodium (137-145) mmol/L Chloride (98-107) mmol/L Carbon Dioxide (22-30) mmol/L BUN (7-17) mg/dL Glucose (74-99) mg/dL POC Glucose (mg/dL) 177 H 194 H (70-110) mg/dL AST (14-36) U/L Total Protein (6.3-8.2) g/dL Albumin (3.5-5.0) g/dL 07/17/24 07/17/24 07/17/24 Range/Units 06:00 06:09 12:15 RBC (4.10-5.20) 10*6/uL Hgb (12.0-15.0) g/dL Hct (37.2-46.3) % MCV (80.0-97.0) fL MCHC (32.0-37.0) g/dL Sodium 135 L (137-145) mmol/L Chloride 92 L (98-107) mmol/L Carbon Dioxide 39 H (22-30) mmol/L BUN 22 H (7-17) mg/dL Glucose 174 H (74-99) mg/dL POC Glucose (mg/dL) 186 H 220 H (70-110) mg/dL AST 48 H (14-36) U/L Total Protein 5.5 L (6.3-8.2) g/dL Albumin 2.8 L (3.5-5.0) g/dL Microbiology - Last 24 Hours (Table) 07/14/24 05:56 Blood Culture - Preliminary Blood Assessment and Plan (1) Leg ulcer, left Current Visit: Yes Status: Acute Code(s): L97.929 - NON-PRS CHRONIC ULC UNSP PRT OF L LOW LEG W UNSP SEVERITY SNOMED Code(s): 50929814 (2) Left leg cellulitis Current Visit: Yes Status: Acute Code(s): L03.116 - CELLULITIS OF LEFT LOWER LIMB SNOMED Code(s): 87844116887425686 (3) Penicillin allergy Current Visit: Yes Status: Acute Code(s): Z88.0 - ALLERGY STATUS TO PENICILLIN SNOMED Code(s): 69123057 (4) Bacteremia Current Visit: Yes Status: Acute Code(s): R78.81 - BACTEREMIA SNOMED Code(s): 8856698 Plan: 1patient with diffuse swelling of bilateral lower extremity with superficial solution to the left leg likely venous stasis ulcer with secondary cellulitis likely from gram-positive skin neida. 2patient with a penicillin allergy that will limit the number of antibiotics safe to use. 3local wound care to the left leg with dry Aquacel dressing and Blue wrap to keep the swelling down, and apply Santyl to the wound to the right heel change daily. 4patient did have resolution of the fever and white count is normal however the patient blood culture repeat came back positive highly clinically suspicious for possible endovascular source such as endocarditis 5TEE was discussed with the cardiology keeping in mind patient current respiratory status want to be to stabilize before going for HANNA 6patient CT of the abdominal pelvis did not show any acute findings UA was negative highly suspicious for endovascular source and the patient should go for HANNA at this point as due to improvement in his mentation this was discussed with the nursing staff to communicate with the cardiology team 7patient will be treated with the daptomycin and gentamicin watching her creatinine closely which is currently normal Dictation was produced using [employer] dictation software. please excuse any grammatical, word or spelling errors. Time with Patient: Less than 30
--- NOTE | 2024-07-17 14:56 | P.PN ---
Subjective Progress Note Date: 07/17/24 Principal diagnosis: Acute on chronic hypoxic respiratory failure and enterococcal sepsis This is a 73-year-old obese white female today seen in room 620. She came to the hospital with 1 day of shortness of breath, leg swelling, and cough. Her viral screen was negative. The patient has smoked for about 40 to 45 years. The only medicine she takes at home for her breathing is albuterol. Her procalcitonin level was 0.05. Chest x-ray showed some fluid overload, but also showed a possible mass in the right midlung, which could be either an actual mass or pseudotumor. A CT scan was ordered. It does show a 7.1 lobulated mass in the right lung. A PET scan was recommended. Currently, the patient is on 4 L of oxygen. No fluids are ordered. She is getting Lasix 40 mg every 8 hours. She also has an updraft ordered. White count 1.22, hemoglobin 11.3, macro 39.1, platelet count 185,000. Coags are normal. Sodium 141, potassium 4.3, chlorides 94, CO2 39, BUN 17.5, creatinine 0.9. Glucose 169. Calcium 8.6. Troponin was negative. N-terminal proBNP was elevated at 1830. Procalcitonin level was 0.05. Urine is negative. Viral screen was negative. Chest x-ray was consistent with fluid overload/CHF. Cardiology has seen the patient. The patient is seen today July 06, 2024 in follow-up on the regular medical floor. She is currently sitting up in bed. Awake and alert in no acute distress. She is maintaining O2 saturations in the 90s on 4 L/min per nasal cannula. She is receiving normal saline at 75 mL/h. White count 10.2. Hemoglobin 11.5. Platelets 198. Sodium 134. Potassium 4.5. Bicarb 38. BUN 29. Creatinine 0.83. Glucose 132. She remains on cefazolin. IV diuretics were discontinued. The patient is seen today July 07, 2024 in follow-up on the regular medical floor. She is currently resting comfortably in bed. Awake and alert in no acute distress. Maintaining good O2 saturations in the 90s on 5 L/min per nasal cannula. She is receiving normal saline at 50 mL/h. Her blood culture isshowing Enterococcus faecium. She is currently on daptomycin. Remains on bronchodilators. 1.2. Platelets 204. Sodium 144. Potassium 5.2. Bicarb 39. BUN 24. Creatinine 0.6. Glucose 153. Progress note dated July 08, 2024. The patient was moved down to the third floor, sometime yesterday or last night, for respiratory distress. I was never notified. The patient was seen today in room 360. She was on BiPAP, with settings of 12/5, and 40%. She was getting saline at 20 cc an hour. A blood gas was done on 44% oxygen showing a pO2 of 84, pCO2 of 91, pH is 7.29. Her blood cultures were positive for Enterococcus faecium. For that reason, she is on daptomycin. Current labs include a white count 7.8, hemoglobin 11.2, hematocrit 38.3, and a platelet count of 173,000. Sodium 139, potassium 4.5, chlorides 93, CO2 40, BUN 29, and creatinine 0.58. Glucose 74. Albumin is 3. Chest x-ray done yesterday, continues to show me in addition, there is diffuse changes, consistent with fluid overload and/or pneumonia. On 07/09/2024, the patient is being seen for a follow-up. Morbidly obese female patient was hospitalized for an acute on top of chronic hypoxic and hypercapnic respiratory failure. At the time of my evaluation this morning, the patient was started on a BiPAP at a pressure of 12/5 with an FiO2 of 40%. I took the patient off the BiPAP and put her on 4 L of oxygen by nasal cannula. Subsequent blood gases showed a pH of 7.34 with pCO2 of 86 and pO2 162. The patient has a mass like consolidation involving the right lower lobe. This could be pneumonia versus malignancy. At the same time, the patient is septic and the source of sepsis is a wound infection and the patient has active wet wound with purulent foul-smelling material covering the wound base and the right lower extremity above the lateral malleolus. Blood culture was positive for Enterococcus faecalis and based on that, the patient has been maintained on a combination of daptomycin and the patient is also on IV cefepime. Repeat chest x-ray was done and it showed a right lower lobe masslike opacity that remains unchanged compared to the previous x-rays in addition to mild cardiomegaly and pulm vessel congestion. The patient is sitting daily diuresis. The patient is producing excellent urine output and the fluid balance is -2.6 L over the past 24 hours. The white cell count is 7.1 with a heme of 10.6 and a platelet count of 151. Serum bicarb is 44 with BUN of 29 and a creatinine of 0.5. Sodium is at 140. She remains encephalopathic. She is arousable. She has tolerated the BiPAP reasonably well. On 07/10/2024, the patient is being seen for a follow-up. The patient remains on BiPAP and she seems to be tolerating the BiPAP reasonably well. This morning, the patient is on a BiPAP at a pressure of 12 over 5 cm of water with an FiO2 of 40% which is essentially the same setting as yesterday. She is arousable and she is able to communicate. At times confused. I took this patient off the BiPAP and put her on oxygen at 5 L/min nasal cannula. Subsequent blood gases showed a pH of 7.33 with a pCO2 of 78 and pO2 of 129. She is still lethargic and weak. Denies having any chest pain. She does have swelling in lower extremities bilaterally. She was given IV Lasix yesterday and her fluid balance is -3.1 L over the past 24 hours. She remains on Bumex 1 mg p.o. daily. She is also on Diamox 5 mg IV every 12 hours. The blood work from today shows a BUN of 24 with a creatinine of 0.7. Serum bicarb is at 36 and a sodium levels at 140. The white cell count is 7.9 with a hemoglobin of 11.4 and a platelet count of 164. The follow-up chest x-ray from yesterday was still showing a masslike consolidation/opacity in the right midlung/right lower lobe area. The patient also has some ongoing mild cardiomegaly. Wound care is being applied. ID is on the case. The patient remains on daptomycin and IV cefepime. On 07/11/2024, the patient is being seen for a follow-up. Remains quite lethargic and continues to have diminished level of consciousness. She remains on a BiPAP at her same setting of 12 over 5 cm of water. Repeat blood gas was done with an FiO2 40% showed a pH of 7.36 with a pCO2 of 71 and pO2 of 83. The patient is however arousable. She continues to be treated for a extensive right lower extremity wound infection with septicemia the patient had Enterococcus faecium and she remains essentially same antibiotic coverage including combination of cefepime and daptomycin. On today's blood work, the white cell count is 7.4 with a hemoglobin 10.9 and a platelet count of 174. The sodium level is at 139, BUN is 28 with a creatinine of 0.6. Potassium is at 4 and a serum bicarb is at 39. She is on Diamox 500 mg IV every 12 hours. She is on Bumex 1 mg p.o. daily. Rest of the medications are essentially unchanged. No significant agitation. 07/12/2024, the patient is being seen for a follow-up. On today's evaluation, the patient is arousable and she is able to communicate. She does have some background encephalopathy and confusion. She is complaining of pain involving lower extremities the patient has extensive wounds in lower extremities bilaterally involving the lateral aspect of the lower extremities bilaterally above the ankle. The area was inspected today and the wound base is erythematous and less purulence. No foul drainage at this point in time. The patient was taken off the BiPAP this morning. The patient was placed on oxygen and she is currently at 60s over the nasal cannula. Repeat blood gas was done and the patient showed a pH of 7.35 with a pCO2 of 65 and pO2 of 52 and this was on FiO2 of 36%. The follow-up chest x-ray from today shows a masslike consolidation in the right lung which seems to be less dense and more hazy. There is also cardiomegaly and pulm vascular congestion with mild pulm vascular congestion. The white cell count is at 9, hemoglobin is 10.7 and a platelet count of 176. BUN is 34 with a creatinine of 0.6 and a sodium level is at 137. The patient is receiving Diamox to 50 mg p.o. daily. The patient remains on Las ix 40 mg IV push every 12 hours. The fluid balance is -1.7 L over the past 24 hours. The patient remains on broad-spectrum antibiotics. The patient is currently on cefepime and daptomycin. Rest of the medications remain unchanged. She remains on Aldactone 25 mg p.o. daily and trazodone at bedtime 50 mg nightly. 07/13/2024, the patient is being seen for a follow-up. Patient is awake and alert and communicating. Denies having any significant complaints other than pain in her back and lower extremities bilaterally. Neurologically, much more awake and alert and communicating. No signs of any CO2 narcosis. Remains on IV Lasix. Remains on Aldactone and Diamox. Most recent blood gas from yesterday showed marked improvement respiratory status. Current serum bicarb level is at 32, sodium is at 135 with a potassium level 3.9. The white cell count of 3.5 with a hemoglobin of 11 and a platelet count of 172. She is utilizing the BiPAP only overnight. Patient has adequate urine output. Denies having any other complaints. Tolerating the oral intake. No reported aspiration. Chest x-ray from yesterday still showing cardiomegaly and pulm vessel congestion in addition to a vague right midlung opacity that is being followed up by serial chest x- rays. She remains on a combination of cefepime and daptomycin. ID is on the case. She is still on a combination of Desyrel and Seroquel. 07/14/2024, the patient is being seen for a follow-up. Overnight, the patient was utilizing her BiPAP at a pressure of 12 over 5 cm of water. This morning, the patient is still on a BiPAP. She is arousable and awake. No significant events overnight. No chest pain. No focal neurological deficits. Remains on the same regimen of antibiotics and the patient remains on daptomycin. ID is on the case. She remains on diuretics. She is on IV Lasix 40 mg every 12 hours and Aldactone 25 mg p.o. daily. She is also on Diamox to 50 mg p.o. on a daily basis. Sodium levels at 132, potassium level is at 4.1, BUN 32 with a creatinine 0.8. The white cell count of 10.9 with a hemoglobin 12 and a platelet count of 206. She was transferred out of the intensive care unit yesterday. No fever. No chills. She is still undergoing wound care to her lower extremity wounds and ID is on the case. 07/15/2024, the patient is being seen for a follow-up. She did encounter some episodes of confusion yesterday. This morning she is on a BiPAP and I took her off the BiPAP and put her on 3 L of oxygen by nasal cannula. She seems to be much more appropriate. She remains on IV Lasix. She is also on Aldactone. Fluid balance is -1.7 L over the past 24 hours. No specific complaints. Antibiotics remain daptomycin. The white cell count is at 8.3, hemoglobin is 10 and platelet count of 206. BUN is at 30 with a creatinine of 0.600 serum bicarb level is at 37. No new complaints otherwise for now. Patient was seen today on 07/16/2024, patient was seen on follow-up, seems to be about the same, she is not confused today, she is intermittently on BiPAP, during my evaluation she was on 2 L nasal cannula, seems to be very appropriate, remains on diuretics including Lasix and Aldactone. She had a significant negative fluid balance over the last 24 hours. Remains on daptomycin for enterococcal infection. WBC count is 9 hemoglobin 11.6, basic metabolic profile is normal ABG from yesterday was noted and it showed a pO2 of 120 pCO2 73 pH of 7.33. Her chest x-ray today continues to show evidence of congestive heart failure with cardiomegaly and small bilateral pleural effusions there is cierra dence of right midlung mass highly suggestive of malignancy needs outpatient follow-up and possible bronc and biopsy Seen today on 07/17/2024, patient is feeling much better today compared to the prior days. Breathing easier, less shortness of breath, her mentation even seems to be improving. Remains on daptomycin for her enterococcal infection, she is on 3 L nasal cannula, remains on diuretics including Lasix and Aldactone. Reviewed her previous CT of the chest, patient does have a lung mass suspicious for bronchogenic carcinoma however this will need outpatient follow-up. WBC count is 8.5 hemoglobin is 10.6 electrolytes are normal renal profile is normal bicarb is 39 Objective - Vital Signs Vital signs: Vital Signs Temp 98.5 F 07/17/24 11:45 Pulse 65 07/17/24 11:45 Resp 16 07/17/24 11:45 BP 126/55 07/17/24 11:45 Pulse Ox 98 07/17/24 11:45 FiO2 40 07/17/24 08:19 Intake & Output 07/16/24 07/17/24 07/17/24 18:59 06:59 18:59 Intake Total 720 960 Output Total 3100 1425 Balance -2380 -1425 960 Weight 105.5 kg Intake: Oral 720 960 Output: Urine 3100 1425 Other: Voiding Method Indwelling Catheter Indwelling Catheter Indwelling Catheter # Voids 1 - Exam GENERAL EXAM: 73-year-old female in no distress on 3 L nasal cannula, O2 sat is 98% HEAD: Normocephalic. EYES: Normal reaction of pupils, equal size. NOSE: Clear with pink turbinates. THROAT: No erythema or exudates. NECK: No masses, no JVD. CHEST: No chest wall deformity. LUNGS: Equal air entry with no crackles, wheeze, rhonchi or dullness. CVS: S1 and S2 normal with no audible murmur, regular rhythm. ABDOMEN: No hepatosplenomegaly, normal bowel sounds, no guarding or rigidity. SKIN: No rashes. Chronic venous stasis of the lower extremities. Purulent bilateral lower extremity ulcer with purulent material covering the base of the ulcer on the right lower extremity and stage IV heel ulcer in the right foot. CENTRAL NERVOUS SYSTEM: Alert oriented x 3 no gross focal deficit EXTREMITIES: Changes of chronic venous stasis. There is no peripheral edema. No clubbing, no cyanosis. Peripheral pulses are intact. - Labs CBC & Chem 7: 07/17/24 06:00 07/17/24 06:00 Labs: Abnormal Lab Results - Last 24 Hours (Table) 07/16/24 07/16/24 07/17/24 Range/Units 16:37 20:18 06:00 RBC 3.63 L (4.10-5.20) 10*6/uL Hgb 10.6 L (12.0-15.0) g/dL Hct 35.5 L (37.2-46.3) % MCV 97.8 H (80.0-97.0) fL MCHC 29.9 L (32.0-37.0) g/dL Sodium (137-145) mmol/L Chloride (98-107) mmol/L Carbon Dioxide (22-30) mmol/L BUN (7-17) mg/dL Glucose (74-99) mg/dL POC Glucose (mg/dL) 177 H 194 H (70-110) mg/dL AST (14-36) U/L Total Protein (6.3-8.2) g/dL Albumin (3.5-5.0) g/dL 07/17/24 07/17/24 07/17/24 Range/Units 06:00 06:09 12:15 RBC (4.10-5.20) 10*6/uL Hgb (12.0-15.0) g/dL Hct (37.2-46.3) % MCV (80.0-97.0) fL MCHC (32.0-37.0) g/dL Sodium 135 L (137-145) mmol/L Chloride 92 L (98-107) mmol/L Carbon Dioxide 39 H (22-30) mmol/L BUN 22 H (7-17) mg/dL Glucose 174 H (74-99) mg/dL POC Glucose (mg/dL) 186 H 220 H (70-110) mg/dL AST 48 H (14-36) U/L Total Protein 5.5 L (6.3-8.2) g/dL Albumin 2.8 L (3.5-5.0) g/dL Microbiology - Last 24 Hours (Table) 07/14/24 05:56 Blood Culture - Preliminary Blood Assessment and Plan Assessment: Impression: Acute on chronic hypoxic and hypercapnic respiratory failure patient has a combination of COPD and congestive heart failure/diastolic congestive heart failure, patient was noted to have preserved LV function Severe pulmonary hypertension Mild aortic stenosis sepsis secondary to enterococcal septicemia with negative blood cultures patient is on daptomycin Morbid obesity Altered mental status/encephalopathy with CO2 narcosis 7.1 cm right mid lung mass, needs outpatient follow-up with Dr. Stokes and will eventually require a PET scan on outpatient basis. Type 2 diabetes Dyslipidemia Hypothyroidism Recommendation: Continue oxygen and titrate accordingly Continue bronchodilators Continue diuretics including Lasix Aldactone Diamox Continue to monitor blood cultures, patient had positive blood cultures for Enterococcus faecium remains on daptomycin, follow-up blood cultures have been negative Continue to monitor pulmonary status Right lung mass, needs outpatient follow-up postdischarge Patient will eventually need outpatient follow-up and bronchoscopy/biopsy. Will clear for discharge once she is cleared by other consultants Will continue to follow Time with Patient: Less than 30
--- NOTE | 2024-07-17 16:07 | NM ---
EXAMINATION TYPE: NM WBC whole body DATE OF EXAM: 07/17/2024 COMPARISON: NONE CLINICAL INDICATION: Female, 73 years old with history of bacteremia , source; TECHNIQUE: Following administration of 9.59 mCi Tc99m Ceretec. Images obtained 3.5 hours post injec tion. FINDINGS: Suboptimal study as patient unable to lay flat for imaging.. IMPRESSION: Nondiagnostic study. [facility], , 07/17/2024 4:05 PM
[2024-07-17 16:46] LABS: Glucose,Whole Blood 178 mg/dL (70-110)
[2024-07-17 20:41] LABS: Glucose,Whole Blood 177 mg/dL (70-110)
[2024-07-17] MEDS: BENZOCAINE SPRAY 1 EACH MM SCH (21:33)
--- NOTE | 2024-07-17 23:09 | EEG ---
ELECTROENCEPHALOGRAM REPORT CLINICAL HISTORY: This is a 73-year-old woman with altered mental status. The video EEG is obtained to evaluate for seizure or epileptiform activity. RELEVANT MEDICATIONS: 1. Haldol. 2. Seroquel. 3. Trazodone. EEG TYPE: This is a routine 21 channel EEG with video using the 10/20 electrode placement system. DESCRIPTION: Wakefulness is only obtained. During awake state, the background consists of low-to- moderate voltage of 7.5 to 8.5 Hz activity, at rare times intermixed with delta activity. There is no physiological stage 2 sleep architecture. There is no focal slowing. There is mild to moderate diffuse myogenic artifact. Interictal and ictal is none. ACTIVATION PROCEDURE: Photic stimulation did not evoke a posterior driving response. There is no abnormality during the photic stimulation. Hyperventilation is not performed. CLINICAL INTERPRETATION: This is an abnormal routine EEG during the awake state. The background slowing is suggestive of mild encephalopathy. Otherwise, there is no focal slowing, epileptiform discharge, or seizure on the EEG. Clinical correlation is recommended. MMTRENTONL / IJN: [id number] /
[2024-07-18 06:05] LABS: Glucose,Whole Blood 177 mg/dL (70-110)
[2024-07-18 06:41] LABS: Basophils # (A) 0.05 10*3/uL (0.00-0.10); Basophils % (A) 0.6 %; Eosinophils # (A) 0.14 10*3/uL (0.04-0.35); Eosinophils % (A) 1.6 %; Lymphocytes # (A) 1.66 10*3/uL (0.90-5.00); Lymphocytes % (A) 18.8 %; MCHC 29.7 g/dL (32.0-37.0); MCV 97.6 fL (80.0-97.0); Mean Platelet Volume 10.6 fL (9.5-12.2); Monocytes # (A) 0.68 10*3/uL (0.20-1.00); Monocytes % (A) 7.7 %; Neutrophils # (A) 6.25 10*3/uL (1.80-7.70); Platelet Count 315 10*3/uL (140-440); RBC 3.79 10*6/uL (4.10-5.20); RDW 14.4 % (11.5-14.5); WBC 8.81 10*3/uL (4.50-10.00)
[2024-07-18 07:11] LABS: ALT 32 U/L (4-34); AST 44 U/L (14-36); African American GFR (CKD) >90 (>60 ml/min/1.73 sqM); Albumin 2.9 g/dL (3.5-5.0); Alkaline Phosphatase 73 U/L (38-126); Anion Gap 5 mmol/L; Blood Urea Nitrogen 24 mg/dL (7-17); Calcium 9.2 mg/dL (8.4-10.2); Chloride 92 mmol/L (98-107); Glucose 172 mg/dL (74-99); Non-African American GFR(CKD) 87 (>60 ml/min/1.73 sqM); Sodium 137 mmol/L (137-145); Total Bilirubin 0.3 mg/dL (0.2-1.3); Total Protein 5.5 g/dL (6.3-8.2)
[2024-07-18] MEDS: SODIUM CHLORIDE 0.9% 250 ML IV ONE (07:19)
[2024-07-18] MEDS: fentaNYL (PF) 50 MCG/1 ML VIAL IVP ONE (07:33)
[2024-07-18] MEDS: MIDAZOLAM 2 MG/2 ML VIAL IVP ONE (07:33)
[2024-07-18] MEDS: BENZOCAINE SPRAY 1 EACH MM ONE (07:33)
[2024-07-18 07:34] LABS: Carbon Dioxide 40 mmol/L (22-30)
--- NOTE | 2024-07-18 08:08 | ECHOS ---
STRESS ECHOCARDIOGRAM PROCEDURE: Transesophageal echo. INDICATION: Septicemia, rule out infective endocarditis. PROCEDURE NOTE: After obtaining informed consent, transesophageal echocardiogram was performed in left lateral position using an Omniplane probe. Local and IV sedation were performed using Xylocaine spray, 50 mcg of fentanyl, and 0.5 mg of Versed. The patient tolerated the procedure well without any obvious immediate complications. Total sedation time was 7 minutes. FINDINGS: 1. There is no vegetation over the mitral valve, aortic valve, or tricuspid valve. 2. There is mild mitral and tricuspid regurgitation noted. Aortic valve is free of stenosis or regurgitation. Ascending aorta appears normal. Left atrium appears mildly enlarged. Right atrium and right ventricle seen within normal limits. 3. Left ventricle has normal size and systolic function. There is no evidence of left- to-right shunt by color-flow Doppler or [id number] shunt by agitated saline contrast study. Interatrial septum shows lipomatous hypertrophy. There is mitral annular calcification noted. Echodense lesion secondary to an artifact noted in the left atrium. CONCLUSIONS: 1. No evidence of vegetation on this study. 2. Normal left ventricular function. MMODL / IJN: [id number] /
[2024-07-18 11:33] LABS: Glucose,Whole Blood 179 mg/dL (70-110)
--- NOTE | 2024-07-18 12:38 | P.PN ---
Subjective Progress Note Date: 07/18/24 I am following-up with patient and per the nurse she refused her CT head yesterday so it was cancelled. Patient feels she is doing well, denies headache, focal weakness. Objective - Vital Signs Vital signs: Vital Signs Temp 98.1 F 07/18/24 11:05 Pulse 73 07/18/24 11:05 Resp 17 07/18/24 11:05 BP 116/66 07/18/24 11:05 Pulse Ox 98 07/18/24 11:05 FiO2 40 07/17/24 08:19 Intake & Output 07/17/24 07/18/24 07/18/24 18:59 06:59 18:59 Intake Total 1200 75 Output Total 1750 1150 Balance -550 -1150 75 Weight 103.8 kg Intake: IV 75 Oral 1200 Output: Urine 1750 1150 Other: Voiding Method Indwelling Catheter Indwelling Catheter Indwelling Catheter - Exam General: Lying in bed and is not in acute distress Neuro: The patient is awake, alert, oriented to self and place. Stated the month is June and the year is 2022. Correctly named objects (pen and watch). No aphasia. Pupils are round, 3mm and reactive to light. Visual velásquez are full to confrontation. EOM intact and no nystagmus. No facial weakness. No dysarthria. Motor: Lifting bilateral upper extremities above gravity equally and refusing to lift bilateral lowers since states she is in pain. Sensation: Normal to touch throughout. Cerebellar: Normal finger to nose bilaterally Some of the work-up during this hospital visit consisted of: ABG: PH 7.29-->7.33; PCO2: was in 90's-->70's; Po2: 50's, HCO3 40's-->30's Serum folate: 4.90 Vitamin B12: 529 TSH: 1.370 Ammonia 15 I reviewed the rest of lab work-up. CT chest: right upper/middle lobe mass concerning for malignancy Routine EEG: Is abnormal. The background slowing is suggestive of mild encephalopathy. There is no focal slowing, epileptiform discharges or seizure on the EEG. - Labs CBC & Chem 7: 07/18/24 06:15 07/18/24 06:15 Labs: Abnormal Lab Results - Last 24 Hours (Table) 07/17/24 07/17/24 07/18/24 Range/Units 16:45 20:39 06:03 RBC (4.10-5.20) 10*6/uL Hgb (12.0-15.0) g/dL Hct (37.2-46.3) % MCV (80.0-97.0) fL MCHC (32.0-37.0) g/dL Chloride (98-107) mmol/L Carbon Dioxide (22-30) mmol/L BUN (7-17) mg/dL Glucose (74-99) mg/dL POC Glucose (mg/dL) 178 H 177 H 177 H (70-110) mg/dL AST (14-36) U/L Total Protein (6.3-8.2) g/dL Albumin (3.5-5.0) g/dL 07/18/24 07/18/24 07/18/24 Range/Units 06:15 06:15 11:31 RBC 3.79 L (4.10-5.20) 10*6/uL Hgb 11.0 L (12.0-15.0) g/dL Hct 37.0 L (37.2-46.3) % MCV 97.6 H (80.0-97.0) fL MCHC 29.7 L (32.0-37.0) g/dL Chloride 92 L (98-107) mmol/L Carbon Dioxide 40 H (22-30) mmol/L BUN 24 H (7-17) mg/dL Glucose 172 H (74-99) mg/dL POC Glucose (mg/dL) 179 H (70-110) mg/dL AST 44 H (14-36) U/L Total Protein 5.5 L (6.3-8.2) g/dL Albumin 2.9 L (3.5-5.0) g/dL Microbiology - Last 24 Hours (Table) 07/14/24 05:56 Blood Culture - Preliminary Blood Assessment and Plan Assessment: This is a 73 y/o woman who present to hospital because of shortness of breath, cough and leg swelling. She was found to have right lung mass. Altered mental status due to multifactorial: Delirium due to hospital induced hypercapnic and cellulitis--mentation improving New right lung mass Very low normal folic acid Leg leg cellulitis Ex-tobacco user Plan: Yesterday it seems the patient refused the CT head and so it was cancelled. I recommended the patient CT head today but continues to refuse. Once more cooperative recommend pursuing CT head. Because of low normal folic acid, I started patient on folic acid 1mg daily. Agree with pursuing PET scan. Pulmonary team is on board. Consider Oncology consultation I.D. team is consult for leg cellulitis Will defer the rest of medical management to primary team and other specialist. If she pursue CT head and shows abnormality then please notify neurology team. Otherwise, there is no further neurological work-up. Will sign off. Please reconsult if needed. Time with Patient: Less than 30
--- NOTE | 2024-07-18 12:55 | P.PN ---
Subjective Progress Note Date: 07/18/24 HISTORY OF PRESENT ILLNESS: This is a 73-year-old male with a past medical history significant for COPD, congestive heart failure, hypertension, and hyperlipidemia. Patient does not follow with a quality control. We have been asked to see the patient in consultation for congestive heart failure. Patient examined at the bedside. Patient presented to the hospital with a chief complaint of increased lower extremity swelling and shortness of breath. Patient was found to be in CHF and was started on IV Lasix. Patient currently denies any chest pain or pressure. Vital signs are stable. DIAGNOSTICS: - EKG reveals sinus mechanism with no signs of acute ischemia - Chest xray correlate for suspected CHF exacerbation. Additionally there is a 4.7 cm masslike consolidation in the right mid to lower lung. Underlying mass/malignancy is not excluded. - Laboratory data: WBC 11.22. Hemoglobin 11.3. Platelet count 185. Sodium 141. Potassium 4.3. BUN 17. Creatinine 0.9. - Current home cardiac medications include rosuvastatin 20 mg daily, enalapril 20 mg daily, and Lasix 40 mg in the morning and 20 mg in the afternoon. 07/06/2024 Patient examined this morning at the bedside. Patient apparently became hypotensive overnight with blood pressures in the 70s and 80s. Her Lasix was discontinued. However she was continued on lisinopril per primary medicine. Systolic blood pressure this morning is in the 90s. July 07, 2024 The patient was seen this morning she still have some change in mental status and she is somewhat lethargic and possibly dehydrated. She is getting a workup for possible sepsis. Hemodynamically she is stable now. The echo is as described above showed normal LV systolic function with mild aortic stenosis. The physical examination is remarkable for regular rhythm with a systolic murmur at the right and left upper sternal border with severe bilateral lower extremi ties chronic skin changes and chronic edema July 08, 2024 The patient was seen and evaluated this morning with apparently she was transferred from 6 N. to 3 S.. She still have change in mental status currently under workup. Hemodynamically she is stable. She still have bilateral lower extremities edema. I am going to give the patient only 1 dose of Lasix IV and continue monitor the kidney function and electrolytes. She is under an investigation for right upper lobe mass with possible need for PET scan. The mass was seen on the CT scan as well as chest x-ray. The physical examination i s remarkable for change in mental status with regular rate and rhythm and mild sinus tachycardia and diminished breathing sounds bilaterally which is still hypoxic requiring BiPAP at 40% 07/09/2024 Patient has been on BiPAP, severely hypercapnic with retention of bicarb with metabolic encephalopathy Bicarb 44, BUN 29, creatinine 0.5, Hb 10.6 07/10/2024 Patient remains somnolent on BiPAP She is on IV antibiotics BP 123/69, heart rate 76, Echo from this admission shows an EF of 55%, moderate concentric LVH, moderate to severe pulmonary hypertension with RVSP of 54 mmHg, 07/11/2024 Patient examined this morning at the bedside. Patient remains confused. She is currently on BiPAP. BUN 28. Creatinine 0.68. 07/12/2024 Patient seen and examined at bedside this a.m. Patient was transferred to ICU because of confusion and delirium. For this patient received Precedex. Confusion delirium is most likely because of CO2 retention. 07/13/2024 Patient is still on 4 L nasal cannula supplemental oxygen, very drowsy, with hypoventilation related hypercapnia 07/14/2024 It was noted that patient went into atrial fibrillation yesterday. For this she was started on Cardizem drip and briefly thereafter she converted out of atrial fibrillation. She was transfer out of ICU to telemetry floor yesterday. BUN 32, creatinine 0.8 Negative fluid balance of 1.5 L yesterday. 07/15/2024 No further atrial fibrillation on telemetry. BP 130/63, heart rate 78 bpm BUN 30, creatinine 0.6, Still very weak, 3 L oxygen, 93 saturation, 07/16 Patient seen and examined. Patient states she is feeling better in general and also her breathing is improved. She states she still has some cough and some wheezing. She denies palpitations. No chest pain. Blood pressure 122/83, heart rate 82, pulse ox 96% on 6 L nasal cannula. Repeat blood work reveals hemoglobin 9.6, sodium 135, potassium 4, BUN 22 and creatinine 0.62. 07/17 Patient seen and examined. Patient denies having any chest pain or palpitations. Her shortness of breath is improving and she slept well last night. She has had good urine output and currently on oral Bumex. Blood pressure 126/55, heart rate 65, pulse ox 98% on 5 L nasal cannula. Repeat blood work reveals hemoglobin 10.6, BUN 22 creatinine 0.69, sodium 135 and potassium 4.2. CO2 39. Dr. Godwin is requesting a HANNA regarding bacteremia. 07/18 This morning, patient underwent HANNA with Dr. Baez which revealed no vegetation. She states her throat feels a little raw this morning. Her breathing is good. She denies chest pain or chest pressure. Blood pressure 109/56, heart rate 83, pulse ox 88 to 98% on 5 L nasal cannula. Repeat blood work reveals hemoglobin 11, potassium 4, BUN 24 and creatinine 0.7. PHYSICAL EXAM: VITAL SIGNS: Reviewed. GENERAL: Well-developed in no acute distress. HEENT: Head is normocephalic. Pupils are equal, round. Sclerae anicteric. Mucous membranes of the mouth are moist. Neck supple. No JVD or thyromegaly LUNGS: Respirations even and unlabored. Lungs essentially clear to auscultation bilaterally. No wheezing HEART: Regular rate and rhythm. S1 and S2 heard. 2/6 systolic murmur EXTREMITIES: Normal range of motion. No clubbing or cyanosis. Peripheral pulses intact. Bilateral lower extremity edema with evidence of cellulitis ASSESSMENT: Paroxysmal atrial fibrillation, currently in sinus rhythm Bilateral lower extremity cellulitis Acute on chronic heart failure with preserved EF Metabolic encephalopathy due to hypercapnia Acute on chronic hypoxic and hypercapnic respiratory failure Severe COPD Right lung mass, pulmonary following Hypertension, Hyperlipidemia Morbid obesity: BMI 46.1 Bacteremia, status post HANNA with no vegetation PLAN: Continue patient on Eliquis 5 mg twice daily for paroxysmal A-fib Continue patient on Bumex 1 mg p.o. twice daily Continue metoprolol tartrate 25 mg twice daily, Aldactone 25 mg daily Patient was started on Diamox At the time of discharge, patient will follow-up in the office with Dr. Alarcon in 2 weeks. Nurse practitioner note has been reviewed, I agree with documented findings and plan of care. Patient was seen and examined. Objective - Vital Signs Vital signs: Vital Signs Temp 97.8 F 07/18/24 08:30 Pulse 83 07/18/24 10:07 Resp 20 07/18/24 08:30 BP 109/56 07/18/24 10:07 Pulse Ox 88 L 07/18/24 10:07 FiO2 40 07/17/24 08:19 Intake & Output 07/17/24 07/18/24 07/18/24 18:59 06:59 18:59 Intake Total 1200 75 Output Total 1750 1150 Balance -550 -1150 75 Weight 103.8 kg Intake: IV 75 Oral 1200 Output: Urine 1750 1150 Other: Voiding Method Indwelling Catheter Indwelling Catheter Indwelling Catheter - Labs CBC & Chem 7: 07/18/24 06:15 07/18/24 06:15 Labs: Abnormal Lab Results - Last 24 Hours (Table) 07/17/24 07/17/24 07/17/24 Range/Units 12:15 16:45 20:39 RBC (4.10-5.20) 10*6/uL Hgb (12.0-15.0) g/dL Hct (37.2-46.3) % MCV (80.0-97.0) fL MCHC (32.0-37.0) g/dL Chloride (98-107) mmol/L Carbon Dioxide (22-30) mmol/L BUN (7-17) mg/dL Glucose (74-99) mg/dL POC Glucose (mg/dL) 220 H 178 H 177 H (70-110) mg/dL AST (14-36) U/L Total Protein (6.3-8.2) g/dL Albumin (3.5-5.0) g/dL 07/18/24 07/18/24 07/18/24 Range/Units 06:03 06:15 06:15 RBC 3.79 L (4.10-5.20) 10*6/uL Hgb 11.0 L (12.0-15.0) g/dL Hct 37.0 L (37.2-46.3) % MCV 97.6 H (80.0-97.0) fL MCHC 29.7 L (32.0-37.0) g/dL Chloride 92 L (98-107) mmol/L Carbon Dioxide 40 H (22-30) mmol/L BUN 24 H (7-17) mg/dL Glucose 172 H (74-99) mg/dL POC Glucose (mg/dL) 177 H (70-110) mg/dL AST 44 H (14-36) U/L Total Protein 5.5 L (6.3-8.2) g/dL Albumin 2.9 L (3.5-5.0) g/dL Microbiology - Last 24 Hours (Table) 07/14/24 05:56 Blood Culture - Preliminary Blood
[2024-07-18] MEDS ORDERED: GENTAMICIN TROUGH DUE 1 EACH MISC MISCELLANE ONE (14:30)
[2024-07-18] MEDS: FOLIC ACID 1 MG TAB PO SCH (14:38)
--- NOTE | 2024-07-18 16:13 | P.PN ---
Subjective Progress Note Date: 07/18/24 Ajay Robertson, is a 73-year-old female who presented to [facility] emergency room with a chief complaint of worsening shortness of breath, additionally patient was found on the floor in her house, she stated that she fell while asleep and was not able to stand up. She was evaluated in the emergency room vital examination on presentation revealed a temperature of 98.3 pulse 89 respiration 20 blood pressure 115/73 pulse ox 95% on 5 L nasal cannula Laboratory data revealed a white blood count of 11.4 hemoglobin 12.7 platelet count 190 BUN 20 creatinine 0.64 influenza A and B RSV and COVID-19 PCR were all negative Testing in the emergency room revealed chest x-ray revealed pulmonary congestion suggestive of congestive heart failure exacerbation and a new 4.7 masslike consolidation in the right mid to lower lung Patient was admitted to medical floor for further evaluation and treatment Past medical history is significant for history of hypertension, history of hyperlipidemia, history of hypothyroidism, history of diabetes mellitus, history of COPD, history of congestive heart failure, history of morbid obesity, history of recurrent episodes of bilateral lower extremity cellulitis. On review of systems patient is alert and oriented x 3 in no apparent distress, she is complaining of generalized body ache, she is complaining of shortness of breath, otherwise she denies any complaints there is no fever or chills no headache or dizziness no chest pain, she has occasional cough no nausea or vomiting no abdominal pain no diarrhea and no urinary symptoms. On 07/05/2024 patient is alert and oriented x 3. Awaiting consulting providers input. Patient remains on IV Lasix. CT of the chest has been completed. At this time patient denies chest pain. Patient denies nausea vomiting or diarrhea. Patient denies any urinary burning or frequency On 07/06/2024 patient is alert and oriented x 3. Patient remains on IV Lasix and IV antibiotics. Cardiology pulmonary and infectious disease services are following. Current vital signs temp 98.1, heart rate 67, respiratory rate 15, blood pressure 96/53 with a pulse ox of 93% on 4 L. Patient denies chest pain or shortness of breath. Patient denies nausea vomiting or diarrhea. Patient denies any urinary burning or frequency. On 07/07/2024 patient was seen and examined on the telemetry floor she is somnolent arousable in no apparent distress, yesterday patient was agitated and aggressive with medical staff, Seroquel was added to her medication regimen, however today she is more somnolent, Seroquel will be changed to as needed only. There is no fever or chills no headache or dizziness no chest pain patient still has shortness of breath with any activity and cough no nausea or vomiting no abdominal pain no diarrhea no urinary symptoms. On 07/08/2024 patient was seen and examined on the telemetry floor, she is so mnolent responsive in no apparent distress, currently she is maintained on BiPAP, she had episodes of agitation through the night, she was pulling off her IV in the BiPAP, she received 1 dose of IM Haldol, she is maintained on soft restraints at this time, her vital examination reveals a temperature of 99.8 pulse 109 respiration 22 pulse ox 95% on BiPAP FiO2 40% she is maintained on IV daptomycin infectious disease are following On 07/09/2024 patient was seen and examined on the telemetry floor, she is somnolent responsive in no apparent distress, she is still having episodes of agitation requiring as needed Seroquel use, otherwise she is improving gradually, there is no fever or chills no headache or dizziness no chest pain, she has shortness of breath with any activity, no nausea or vomiting no abdominal pain no diarrhea and no urinary symptoms, she remains on IV antibiotics, infectious disease are following, also cardiology and pulmonary are following On 07/10/2024 patient remains somnolent on BiPAP. Pulmonary and infectious disease services following. Patient remains on IV antibiotics. Patient remains on IV Diamox. Current vital signs temp 99.8, heart rate 78, respiratory rate 18, blood pressure 123/69 with a pulse ox of 96% on BiPAP with an FiO2 of 40. On 07/11/2024 patient was seen and examined on the medical floor, she is alert responsive in no apparent distress, she was maintained on BiPAP through the night, there is no fever or chills no headache or dizziness no chest pain no shortness of breath at rest, she has occasional cough and severe shortness of breath with any activity no nausea or vomiting no abdominal pain no diarrhea no urinary symptoms. On 07/12/2024 patient is alert but remains confused. Patient remains in the ICU. Patient was on BiPAP for 6 hours. Patient did require Precedex for increased agitation. Patient remains on IV cefepime and Diamox. Along with scheduled Bumex. Colace added for constipation. Patient denies chest pain. Patient denies nausea vomiting or diarrhea. Patient denies any urinary burning frequency On 07/13/2024 patient is more alert today. Per nursing staff plans for HANNA due to bacteremia. Current vital signs temp 99.0, heart rate 92, respiratory rate 25, blood pressure 125/69 with a pulse ox of 97% on 6 L. Patient denies chest pain. Patient denies nausea vomiting or diarrhea. Patient denies any urinary burning or frequency. Patient remains on Diamox and IV Maxipime. On 07/14/2024 patient was seen and examined on the telemetry floor, she is alert and oriented x 3 in no apparent distress, during the night patient required BiPAP, she had an episode of agitation and she received IM Haldol, yesterday e vening patient had an episode of atrial fibrillation with rapid ventricular response, she received IV Cardizem, and her rhythm converted back to normal sinus rhythm. Otherwise no issues since yesterday, patient denies any chest pain, there is no shortness of breath at rest, no fever or chills no headache or dizziness no palpitation, no nausea or vomiting no abdominal pain no diarrhea and no urinary symptoms. On 07/15/2024 patient is alert and oriented x 3. Patient's mentation improved. Patient denies chest pain or shortness of breath. Patient denies nausea vomiting or diarrhea. Patient denies any urinary burning or frequency. Current vital signs temp 97.8, heart 94, respiratory 20, blood pressure 122/58 with a pulse ox of 93% on 3 L. Patient remains on daptomycin and gentamicin. On 07/16/2024 patient was seen and examined on the telemetry floor, she is alert and oriented x 3 in no apparent distress, there is no fever or chills no headache or dizziness, no chest pain, she has shortness of breath with any activity she has occasional cough no nausea or vomiting no abdominal pain no diarrhea no blood in the stool, no urinary symptoms. Rock catheter remains in, bilateral lower extremity wrapping and protective boots are on. Vital exam reveals a temperature of 98.1 pulse 86 respiration 18 blood pressure 113/74 pulse ox 98% on 6 L nasal cannula. White blood count is 9.0 hemoglobin 11.6 platelet count 246 sodium 135 potassium 4.0 chloride 98 CO2 34 BUN 22 creatinine 0.62 On 07/17/2024 patient currently resting comfortably on BiPAP. Neurology services have been consulted for altered mental status. Patient remains on IV daptomycin and gentamicin. Pulmonary, cardiology, infectious disease and neurology services consulted. Current vital signs temp 97.9, heart rate 79, respiratory rate 16, blood pressure 127/79 with pulse ox 98% on 6 L. On 07/18/2024 patient was seen and examined on the medical floor she is alert and oriented x 3 in no apparent distress she is maintained on oxygen 4 L nasal cannula there is no fever or chills no headache or dizziness no chest pain no shortness of breath at rest patient has shortness of breath with any activity no nausea or vomiting no abdominal pain no diarrhea and no urinary symptoms Objective - Vital Signs Vital signs: Vital Signs Temp 97.8 F 07/18/24 08:30 Pulse 79 07/18/24 08:30 Resp 20 07/18/24 08:30 BP 106/66 07/18/24 08:30 Pulse Ox 95 07/18/24 08:30 FiO2 40 07/17/24 08:19 Intake & Output 07/17/24 07/18/24 07/18/24 18:59 06:59 18:59 Intake Total 1200 75 Output Total 1750 1150 Balance -550 -1150 75 Weight 103.8 kg Intake: IV 75 Oral 1200 Output: Urine 1750 1150 Other: Voiding Method Indwelling Catheter Indwelling Catheter Indwelling Catheter - Exam In general patient is alert and oriented x 3 in no distress HEENT head normocephalic and atraumatic Neck is supple no JVD no goiter no lymphadenopathy no carotid bruit Chest examination reveals a scattered crackles bilaterally no wheezing Cardiac exam reveals regular heart sounds S1 and S2 no gallops no murmurs Abdomen is soft nontender no organomegaly with normal bowel sounds Extremity exam reveals 3+ edema with erythema and chronic stasis changes, multiple small ulceration with scabbing no cyanosis or clubbing Neurological examination reveals no gross focal deficits - Labs CBC & Chem 7: 07/18/24 06:15 07/18/24 06:15 Labs: Abnormal Lab Results - Last 24 Hours (Table) 07/17/24 07/17/24 07/17/24 Range/Units 12:15 16:45 20:39 RBC (4.10-5.20) 10*6/uL Hgb (12.0-15.0) g/dL Hct (37.2-46.3) % MCV (80.0-97.0) fL MCHC (32.0-37.0) g/dL Chloride (98-107) mmol/L Carbon Dioxide (22-30) mmol/L BUN (7-17) mg/dL Glucose (74-99) mg/dL POC Glucose (mg/dL) 220 H 178 H 177 H (70-110) mg/dL AST (14-36) U/L Total Protein (6.3-8.2) g/dL Albumin (3.5-5.0) g/dL 07/18/24 07/18/24 07/18/24 Range/Units 06:03 06:15 06:15 RBC 3.79 L (4.10-5.20) 10*6/uL Hgb 11.0 L (12.0-15.0) g/dL Hct 37.0 L (37.2-46.3) % MCV 97.6 H (80.0-97.0) fL MCHC 29.7 L (32.0-37.0) g/dL Chloride 92 L (98-107) mmol/L Carbon Dioxide 40 H (22-30) mmol/L BUN 24 H (7-17) mg/dL Glucose 172 H (74-99) mg/dL POC Glucose (mg/dL) 177 H (70-110) mg/dL AST 44 H (14-36) U/L Total Protein 5.5 L (6.3-8.2) g/dL Albumin 2.9 L (3.5-5.0) g/dL Microbiology - Last 24 Hours (Table) 07/14/24 05:56 Blood Culture - Preliminary Blood Assessment and Plan Plan: Acute congestive heart failure exacerbation Bacteremia New 4.7 cm masslike consolidation opacity in the right midlung Fall at home, with generalized body pain Bilateral lower extremity cellulitis, with multiple open ulcers Underlying history of hypertension Underlying history of hyperlipidemia Underlying history of diabetes mellitus Underlying history of COPD Underlying history of morbid obesity At this time patient was admitted to telemetry floor Patient has been transferred out of the intensive care unit Remains on IV antibiotics Continue BiPAP Consultation for pulmonary, infectious disease, and cardiology initiated Will follow closely
--- NOTE | 2024-07-18 16:31 | P.PN ---
Subjective Progress Note Date: 07/18/24 Principal diagnosis: Acute on chronic hypoxic respiratory failure and enterococcal sepsis This is a 73-year-old obese white female today seen in room 620. She came to the hospital with 1 day of shortness of breath, leg swelling, and cough. Her viral screen was negative. The patient has smoked for about 40 to 45 years. The only medicine she takes at home for her breathing is albuterol. Her procalcitonin level was 0.05. Chest x-ray showed some fluid overload, but also showed a possible mass in the right midlung, which could be either an actual mass or pseudotumor. A CT scan was ordered. It does show a 7.1 lobulated mass in the right lung. A PET scan was recommended. Currently, the patient is on 4 L of oxygen. No fluids are ordered. She is getting Lasix 40 mg every 8 hours. She also has an updraft ordered. White count 1.22, hemoglobin 11.3, macro 39.1, platelet count 185,000. Coags are normal. Sodium 141, potassium 4.3, chlorides 94, CO2 39, BUN 17.5, creatinine 0.9. Glucose 169. Calcium 8.6. Troponin was negative. N-terminal proBNP was elevated at 1830. Procalcitonin level was 0.05. Urine is negative. Viral screen was negative. Chest x-ray was consistent with fluid overload/CHF. Cardiology has seen the patient. The patient is seen today July 06, 2024 in follow-up on the regular medical floor. She is currently sitting up in bed. Awake and alert in no acute distress. She is maintaining O2 saturations in the 90s on 4 L/min per nasal cannula. She is receiving normal saline at 75 mL/h. White count 10.2. Hemoglobin 11.5. Platelets 198. Sodium 134. Potassium 4.5. Bicarb 38. BUN 29. Creatinine 0.83. Glucose 132. She remains on cefazolin. IV diuretics were discontinued. The patient is seen today July 07, 2024 in follow-up on the regular medical floor. She is currently resting comfortably in bed. Awake and alert in no acute distress. Maintaining good O2 saturations in the 90s on 5 L/min per nasal cannula. She is receiving normal saline at 50 mL/h. Her blood culture isshowing Enterococcus faecium. She is currently on daptomycin. Remains on bronchodilators. 1.2. Platelets 204. Sodium 144. Potassium 5.2. Bicarb 39. BUN 24. Creatinine 0.6. Glucose 153. Progress note dated July 08, 2024. The patient was moved down to the third floor, sometime yesterday or last night, for respiratory distress. I was never notified. The patient was seen today in room 360. She was on BiPAP, with settings of 12/5, and 40%. She was getting saline at 20 cc an hour. A blood gas was done on 44% oxygen showing a pO2 of 84, pCO2 of 91, pH is 7.29. Her blood cultures were positive for Enterococcus faecium. For that reason, she is on daptomycin. Current labs include a white count 7.8, hemoglobin 11.2, hematocrit 38.3, and a platelet count of 173,000. Sodium 139, potassium 4.5, chlorides 93, CO2 40, BUN 29, and creatinine 0.58. Glucose 74. Albumin is 3. Chest x-ray done yesterday, continues to show me in addition, there is diffuse changes, consistent with fluid overload and/or pneumonia. On 07/09/2024, the patient is being seen for a follow-up. Morbidly obese female patient was hospitalized for an acute on top of chronic hypoxic and hypercapnic respiratory failure. At the time of my evaluation this morning, the patient was started on a BiPAP at a pressure of 12/5 with an FiO2 of 40%. I took the patient off the BiPAP and put her on 4 L of oxygen by nasal cannula. Subsequent blood gases showed a pH of 7.34 with pCO2 of 86 and pO2 162. The patient has a mass like consolidation involving the right lower lobe. This could be pneumonia versus malignancy. At the same time, the patient is septic and the source of sepsis is a wound infection and the patient has active wet wound with purulent foul-smelling material covering the wound base and the right lower extremity above the lateral malleolus. Blood culture was positive for Enterococcus faecalis and based on that, the patient has been maintained on a combination of daptomycin and the patient is also on IV cefepime. Repeat chest x-ray was done and it showed a right lower lobe masslike opacity that remains unchanged compared to the previous x-rays in addition to mild cardiomegaly and pulm vessel congestion. The patient is sitting daily diuresis. The patient is producing excellent urine output and the fluid balance is -2.6 L over the past 24 hours. The white cell count is 7.1 with a heme of 10.6 and a platelet count of 151. Serum bicarb is 44 with BUN of 29 and a creatinine of 0.5. Sodium is at 140. She remains encephalopathic. She is arousable. She has tolerated the BiPAP reasonably well. On 07/10/2024, the patient is being seen for a follow-up. The patient remains on BiPAP and she seems to be tolerating the BiPAP reasonably well. This morning, the patient is on a BiPAP at a pressure of 12 over 5 cm of water with an FiO2 of 40% which is essentially the same setting as yesterday. She is arousable and she is able to communicate. At times confused. I took this patient off the BiPAP and put her on oxygen at 5 L/min nasal cannula. Subsequent blood gases showed a pH of 7.33 with a pCO2 of 78 and pO2 of 129. She is still lethargic and weak. Denies having any chest pain. She does have swelling in lower extremities bilaterally. She was given IV Lasix yesterday and her fluid balance is -3.1 L over the past 24 hours. She remains on Bumex 1 mg p.o. daily. She is also on Diamox 5 mg IV every 12 hours. The blood work from today shows a BUN of 24 with a creatinine of 0.7. Serum bicarb is at 36 and a sodium levels at 140. The white cell count is 7.9 with a hemoglobin of 11.4 and a platelet count of 164. The follow-up chest x-ray from yesterday was still showing a masslike consolidation/opacity in the right midlung/right lower lobe area. The patient also has some ongoing mild cardiomegaly. Wound care is being applied. ID is on the case. The patient remains on daptomycin and IV cefepime. On 07/11/2024, the patient is being seen for a follow-up. Remains quite lethargic and continues to have diminished level of consciousness. She remains on a BiPAP at her same setting of 12 over 5 cm of water. Repeat blood gas was done with an FiO2 40% showed a pH of 7.36 with a pCO2 of 71 and pO2 of 83. The patient is however arousable. She continues to be treated for a extensive right lower extremity wound infection with septicemia the patient had Enterococcus faecium and she remains essentially same antibiotic coverage including combination of cefepime and daptomycin. On today's blood work, the white cell count is 7.4 with a hemoglobin 10.9 and a platelet count of 174. The sodium level is at 139, BUN is 28 with a creatinine of 0.6. Potassium is at 4 and a serum bicarb is at 39. She is on Diamox 500 mg IV every 12 hours. She is on Bumex 1 mg p.o. daily. Rest of the medications are essentially unchanged. No significant agitation. 07/12/2024, the patient is being seen for a follow-up. On today's evaluation, the patient is arousable and she is able to communicate. She does have some background encephalopathy and confusion. She is complaining of pain involving lower extremities the patient has extensive wounds in lower extremities bilaterally involving the lateral aspect of the lower extremities bilaterally above the ankle. The area was inspected today and the wound base is erythematous and less purulence. No foul drainage at this point in time. The patient was taken off the BiPAP this morning. The patient was placed on oxygen and she is currently at 60s over the nasal cannula. Repeat blood gas was done and the patient showed a pH of 7.35 with a pCO2 of 65 and pO2 of 52 and this was on FiO2 of 36%. The follow-up chest x-ray from today shows a masslike consolidation in the right lung which seems to be less dense and more hazy. There is also cardiomegaly and pulm vascular congestion with mild pulm vascular congestion. The white cell count is at 9, hemoglobin is 10.7 and a platelet count of 176. BUN is 34 with a creatinine of 0.6 and a sodium level is at 137. The patient is receiving Diamox to 50 mg p.o. daily. The patient remains on Las ix 40 mg IV push every 12 hours. The fluid balance is -1.7 L over the past 24 hours. The patient remains on broad-spectrum antibiotics. The patient is currently on cefepime and daptomycin. Rest of the medications remain unchanged. She remains on Aldactone 25 mg p.o. daily and trazodone at bedtime 50 mg nightly. 07/13/2024, the patient is being seen for a follow-up. Patient is awake and alert and communicating. Denies having any significant complaints other than pain in her back and lower extremities bilaterally. Neurologically, much more awake and alert and communicating. No signs of any CO2 narcosis. Remains on IV Lasix. Remains on Aldactone and Diamox. Most recent blood gas from yesterday showed marked improvement respiratory status. Current serum bicarb level is at 32, sodium is at 135 with a potassium level 3.9. The white cell count of 3.5 with a hemoglobin of 11 and a platelet count of 172. She is utilizing the BiPAP only overnight. Patient has adequate urine output. Denies having any other complaints. Tolerating the oral intake. No reported aspiration. Chest x-ray from yesterday still showing cardiomegaly and pulm vessel congestion in addition to a vague right midlung opacity that is being followed up by serial chest x- rays. She remains on a combination of cefepime and daptomycin. ID is on the case. She is still on a combination of Desyrel and Seroquel. 07/14/2024, the patient is being seen for a follow-up. Overnight, the patient was utilizing her BiPAP at a pressure of 12 over 5 cm of water. This morning, the patient is still on a BiPAP. She is arousable and awake. No significant events overnight. No chest pain. No focal neurological deficits. Remains on the same regimen of antibiotics and the patient remains on daptomycin. ID is on the case. She remains on diuretics. She is on IV Lasix 40 mg every 12 hours and Aldactone 25 mg p.o. daily. She is also on Diamox to 50 mg p.o. on a daily basis. Sodium levels at 132, potassium level is at 4.1, BUN 32 with a creatinine 0.8. The white cell count of 10.9 with a hemoglobin 12 and a platelet count of 206. She was transferred out of the intensive care unit yesterday. No fever. No chills. She is still undergoing wound care to her lower extremity wounds and ID is on the case. 07/15/2024, the patient is being seen for a follow-up. She did encounter some episodes of confusion yesterday. This morning she is on a BiPAP and I took her off the BiPAP and put her on 3 L of oxygen by nasal cannula. She seems to be much more appropriate. She remains on IV Lasix. She is also on Aldactone. Fluid balance is -1.7 L over the past 24 hours. No specific complaints. Antibiotics remain daptomycin. The white cell count is at 8.3, hemoglobin is 10 and platelet count of 206. BUN is at 30 with a creatinine of 0.600 serum bicarb level is at 37. No new complaints otherwise for now. Patient was seen today on 07/16/2024, patient was seen on follow-up, seems to be about the same, she is not confused today, she is intermittently on BiPAP, during my evaluation she was on 2 L nasal cannula, seems to be very appropriate, remains on diuretics including Lasix and Aldactone. She had a significant negative fluid balance over the last 24 hours. Remains on daptomycin for enterococcal infection. WBC count is 9 hemoglobin 11.6, basic metabolic profile is normal ABG from yesterday was noted and it showed a pO2 of 120 pCO2 73 pH of 7.33. Her chest x-ray today continues to show evidence of congestive heart failure with cardiomegaly and small bilateral pleural effusions there is cierra dence of right midlung mass highly suggestive of malignancy needs outpatient follow-up and possible bronc and biopsy Seen today on 07/17/2024, patient is feeling much better today compared to the prior days. Breathing easier, less shortness of breath, her mentation even seems to be improving. Remains on daptomycin for her enterococcal infection, she is on 3 L nasal cannula, remains on diuretics including Lasix and Aldactone. Reviewed her previous CT of the chest, patient does have a lung mass suspicious for bronchogenic carcinoma however this will need outpatient follow-up. WBC count is 8.5 hemoglobin is 10.6 electrolytes are normal renal profile is normal bicarb is 39 Seen today on 07/18/2024, patient is feeling better today, she has good days and bad days but overall she is doing well, remains on antibiotics, remains on 5 L nasal cannula, O2 saturation is 100%. WBC count is 8.8 hemoglobin is 11 basic metabolic profile is normal bicarb is 40 renal profile is normal. Objective - Vital Signs Vital signs: Vital Signs Temp 98.5 F 07/18/24 16:02 Pulse 71 04/09/25 16:02 Resp 20 07/18/24 16:02 BP 94/59 07/18/24 16:02 Pulse Ox 100 07/18/24 16:02 FiO2 40 07/17/24 08:19 Intake & Output 07/17/24 07/18/24 07/18/24 18:59 06:59 18:59 Intake Total 1200 315 Output Total 1750 1150 670 Balance -550 -1150 -355 Weight 103.8 kg Intake: IV 75 Oral 1200 240 Output: Urine 1750 1150 670 Other: Voiding Method Indwelling Catheter Indwelling Catheter Indwelling Catheter - Exam GENERAL EXAM: 73-year-old female in no distress on 5 L nasal cannula O2 sat is 100% HEAD: Normocephalic. EYES: Normal reaction of pupils, equal size. NOSE: Clear with pink turbinates. THROAT: No erythema or exudates. NECK: No masses, no JVD. CHEST: No chest wall deformity. LUNGS: Equal air entry with no crackles, wheeze, rhonchi or dullness. CVS: S1 and S2 normal with no audible murmur, regular rhythm. ABDOMEN: No hepatosplenomegaly, normal bowel sounds, no guarding or rigidity. SKIN: No rashes. Chronic venous stasis of the lower extremities. Purulent bilateral lower extremity ulcer with purulent material covering the base of the ulcer on the right lower extremity and stage IV heel ulcer in the right foot. CENTRAL NERVOUS SYSTEM: Alert oriented x 3 no gross focal deficit EXTREMITIES: Changes of chronic venous stasis. There is no peripheral edema. No clubbing, no cyanosis. Peripheral pulses are intact. - Labs CBC & Chem 7: 07/18/24 06:15 07/18/24 06:15 Labs: Abnormal Lab Results - Last 24 Hours (Table) 07/17/24 07/17/24 07/18/24 Range/Units 16:45 20:39 06:03 RBC (4.10-5.20) 10*6/uL Hgb (12.0-15.0) g/dL Hct (37.2-46.3) % MCV (80.0-97.0) fL MCHC (32.0-37.0) g/dL Chloride (98-107) mmol/L Carbon Dioxide (22-30) mmol/L BUN (7-17) mg/dL Glucose (74-99) mg/dL POC Glucose (mg/dL) 178 H 177 H 177 H (70-110) mg/dL AST (14-36) U/L Total Protein (6.3-8.2) g/dL Albumin (3.5-5.0) g/dL 07/18/24 07/18/24 07/18/24 Range/Units 06:15 06:15 11:31 RBC 3.79 L (4.10-5.20) 10*6/uL Hgb 11.0 L (12.0-15.0) g/dL Hct 37.0 L (37.2-46.3) % MCV 97.6 H (80.0-97.0) fL MCHC 29.7 L (32.0-37.0) g/dL Chloride 92 L (98-107) mmol/L Carbon Dioxide 40 H (22-30) mmol/L BUN 24 H (7-17) mg/dL Glucose 172 H (74-99) mg/dL POC Glucose (mg/dL) 179 H (70-110) mg/dL AST 44 H (14-36) U/L Total Protein 5.5 L (6.3-8.2) g/dL Albumin 2.9 L (3.5-5.0) g/dL Microbiology - Last 24 Hours (Table) 07/14/24 05:56 Blood Culture - Preliminary Blood Assessment and Plan Assessment: Impression: Acute on chronic hypoxic and hypercapnic respiratory failure patient has a combination of COPD and congestive heart failure/diastolic congestive heart failure, patient was noted to have preserved LV function Severe pulmonary hypertension Mild aortic stenosis sepsis secondary to enterococcal septicemia with negative blood cultures patient is on daptomycin Morbid obesity Altered mental status/encephalopathy with CO2 narcosis 7.1 cm right mid lung mass, needs outpatient follow-up with Dr. Stokes and will eventually require a PET scan on outpatient basis. Type 2 diabetes Dyslipidemia Hypothyroidism Recommendation: Continue oxygen and titrate accordingly Continue bronchodilators Continue diuretics Continue to monitor blood cultures, patient had positive blood cultures for Enterococcus faecium remains on daptomycin, follow-up blood cultures have been negative Continue to monitor pulmonary status Right lung mass, needs outpatient follow-up postdischarge Patient will eventually need outpatient follow-up and bronchoscopy/biopsy. Will clear for discharge once she is cleared by other consultants Will continue to follow Time with Patient: Less than 30
[2024-07-18 16:58] LABS: Glucose,Whole Blood 213 mg/dL (70-110)
[2024-07-18] MEDS ORDERED: GENTAMICIN PEAK DUE 1 EACH MISC MISCELLANE ONE (17:00)
[2024-07-18 19:57] LABS: Glucose,Whole Blood 191 mg/dL (70-110)
[2024-07-18] MEDS: LINEZOLID 600 MG TAB PO SCH (20:54)
[2024-07-19 06:14] LABS: Glucose,Whole Blood 183 mg/dL (70-110)
[2024-07-19 07:40] LABS: Basophils # (A) 0.04 10*3/uL (0.00-0.10); Basophils % (A) 0.5 %; Eosinophils # (A) 0.11 10*3/uL (0.04-0.35); Eosinophils % (A) 1.5 %; HCT 37.3 % (37.2-46.3); HGB 10.7 g/dL (12.0-15.0); Lymphocytes # (A) 1.36 10*3/uL (0.90-5.00); MCH 28.4 pg (27.0-32.0); MCHC 28.7 g/dL (32.0-37.0); MCV 98.9 fL (80.0-97.0); Mean Platelet Volume 10.1 fL (9.5-12.2); Monocytes % (A) 6.6 %; Neutrophils # (A) 5.51 10*3/uL (1.80-7.70); Neutrophils % (A) 72.9 %; Platelet Count 303 10*3/uL (140-440); RBC 3.77 10*6/uL (4.10-5.20); RDW 14.6 % (11.5-14.5); WBC 7.56 10*3/uL (4.50-10.00)
[2024-07-19 08:06] LABS: ALT 33 U/L (4-34); AST 40 U/L (14-36); African American GFR (CKD) 61 (>60 ml/min/1.73 sqM); Alkaline Phosphatase 71 U/L (38-126); Blood Urea Nitrogen 30 mg/dL (7-17); Calcium 8.9 mg/dL (8.4-10.2); Chloride 90 mmol/L (98-107); Glucose 188 mg/dL (74-99); Non-African American GFR(CKD) 53 (>60 ml/min/1.73 sqM); Potassium 4.4 mmol/L (3.5-5.1); Sodium 136 mmol/L (137-145); Total Bilirubin 0.4 mg/dL (0.2-1.3); Total Protein 5.7 g/dL (6.3-8.2)
[2024-07-19 08:43] LABS: Anion Gap 4 mmol/L
[2024-07-19 08:45] LABS: Carbon Dioxide 42 mmol/L (22-30)
--- NOTE | 2024-07-19 09:15 | P.PN ---
Subjective Progress Note Date: 07/19/24 Ajay Robertson, is a 73-year-old female who presented to [facility] emergency room with a chief complaint of worsening shortness of breath, additionally patient was found on the floor in her house, she stated that she fell while asleep and was not able to stand up. She was evaluated in the emergency room vital examination on presentation revealed a temperature of 98.3 pulse 89 respiration 20 blood pressure 115/73 pulse ox 95% on 5 L nasal cannula Laboratory data revealed a white blood count of 11.4 hemoglobin 12.7 platelet count 190 BUN 20 creatinine 0.64 influenza A and B RSV and COVID-19 PCR were all negative Testing in the emergency room revealed chest x-ray revealed pulmonary congestion suggestive of congestive heart failure exacerbation and a new 4.7 masslike consolidation in the right mid to lower lung Patient was admitted to medical floor for further evaluation and treatment Past medical history is significant for history of hypertension, history of hyperlipidemia, history of hypothyroidism, history of diabetes mellitus, history of COPD, history of congestive heart failure, history of morbid obesity, history of recurrent episodes of bilateral lower extremity cellulitis. On review of systems patient is alert and oriented x 3 in no apparent distress, she is complaining of generalized body ache, she is complaining of shortness of breath, otherwise she denies any complaints there is no fever or chills no headache or dizziness no chest pain, she has occasional cough no nausea or vomiting no abdominal pain no diarrhea and no urinary symptoms. On 07/05/2024 patient is alert and oriented x 3. Awaiting consulting providers input. Patient remains on IV Lasix. CT of the chest has been completed. At this time patient denies chest pain. Patient denies nausea vomiting or diarrhea. Patient denies any urinary burning or frequency On 07/06/2024 patient is alert and oriented x 3. Patient remains on IV Lasix and IV antibiotics. Cardiology pulmonary and infectious disease services are following. Current vital signs temp 98.1, heart rate 67, respiratory rate 15, blood pressure 96/53 with a pulse ox of 93% on 4 L. Patient denies chest pain or shortness of breath. Patient denies nausea vomiting or diarrhea. Patient denies any urinary burning or frequency. On 07/07/2024 patient was seen and examined on the telemetry floor she is somnolent arousable in no apparent distress, yesterday patient was agitated and aggressive with medical staff, Seroquel was added to her medication regimen, however today she is more somnolent, Seroquel will be changed to as needed only. There is no fever or chills no headache or dizziness no chest pain patient still has shortness of breath with any activity and cough no nausea or vomiting no abdominal pain no diarrhea no urinary symptoms. On 07/08/2024 patient was seen and examined on the telemetry floor, she is so mnolent responsive in no apparent distress, currently she is maintained on BiPAP, she had episodes of agitation through the night, she was pulling off her IV in the BiPAP, she received 1 dose of IM Haldol, she is maintained on soft restraints at this time, her vital examination reveals a temperature of 99.8 pulse 109 respiration 22 pulse ox 95% on BiPAP FiO2 40% she is maintained on IV daptomycin infectious disease are following On 07/09/2024 patient was seen and examined on the telemetry floor, she is somnolent responsive in no apparent distress, she is still having episodes of agitation requiring as needed Seroquel use, otherwise she is improving gradually, there is no fever or chills no headache or dizziness no chest pain, she has shortness of breath with any activity, no nausea or vomiting no abdominal pain no diarrhea and no urinary symptoms, she remains on IV antibiotics, infectious disease are following, also cardiology and pulmonary are following On 07/10/2024 patient remains somnolent on BiPAP. Pulmonary and infectious disease services following. Patient remains on IV antibiotics. Patient remains on IV Diamox. Current vital signs temp 99.8, heart rate 78, respiratory rate 18, blood pressure 123/69 with a pulse ox of 96% on BiPAP with an FiO2 of 40. On 07/11/2024 patient was seen and examined on the medical floor, she is alert responsive in no apparent distress, she was maintained on BiPAP through the night, there is no fever or chills no headache or dizziness no chest pain no shortness of breath at rest, she has occasional cough and severe shortness of breath with any activity no nausea or vomiting no abdominal pain no diarrhea no urinary symptoms. On 07/12/2024 patient is alert but remains confused. Patient remains in the ICU. Patient was on BiPAP for 6 hours. Patient did require Precedex for increased agitation. Patient remains on IV cefepime and Diamox. Along with scheduled Bumex. Colace added for constipation. Patient denies chest pain. Patient denies nausea vomiting or diarrhea. Patient denies any urinary burning frequency On 07/13/2024 patient is more alert today. Per nursing staff plans for HANNA due to bacteremia. Current vital signs temp 99.0, heart rate 92, respiratory rate 25, blood pressure 125/69 with a pulse ox of 97% on 6 L. Patient denies chest pain. Patient denies nausea vomiting or diarrhea. Patient denies any urinary burning or frequency. Patient remains on Diamox and IV Maxipime. On 07/14/2024 patient was seen and examined on the telemetry floor, she is alert and oriented x 3 in no apparent distress, during the night patient required BiPAP, she had an episode of agitation and she received IM Haldol, yesterday e vening patient had an episode of atrial fibrillation with rapid ventricular response, she received IV Cardizem, and her rhythm converted back to normal sinus rhythm. Otherwise no issues since yesterday, patient denies any chest pain, there is no shortness of breath at rest, no fever or chills no headache or dizziness no palpitation, no nausea or vomiting no abdominal pain no diarrhea and no urinary symptoms. On 07/15/2024 patient is alert and oriented x 3. Patient's mentation improved. Patient denies chest pain or shortness of breath. Patient denies nausea vomiting or diarrhea. Patient denies any urinary burning or frequency. Current vital signs temp 97.8, heart 94, respiratory 20, blood pressure 122/58 with a pulse ox of 93% on 3 L. Patient remains on daptomycin and gentamicin. On 07/16/2024 patient was seen and examined on the telemetry floor, she is alert and oriented x 3 in no apparent distress, there is no fever or chills no headache or dizziness, no chest pain, she has shortness of breath with any activity she has occasional cough no nausea or vomiting no abdominal pain no diarrhea no blood in the stool, no urinary symptoms. Rock catheter remains in, bilateral lower extremity wrapping and protective boots are on. Vital exam reveals a temperature of 98.1 pulse 86 respiration 18 blood pressure 113/74 pulse ox 98% on 6 L nasal cannula. White blood count is 9.0 hemoglobin 11.6 platelet count 246 sodium 135 potassium 4.0 chloride 98 CO2 34 BUN 22 creatinine 0.62 On 07/17/2024 patient currently resting comfortably on BiPAP. Neurology services have been consulted for altered mental status. Patient remains on IV daptomycin and gentamicin. Pulmonary, cardiology, infectious disease and neurology services consulted. Current vital signs temp 97.9, heart rate 79, respiratory rate 16, blood pressure 127/79 with pulse ox 98% on 6 L. On 07/18/2024 patient was seen and examined on the medical floor she is alert and oriented x 3 in no apparent distress she is maintained on oxygen 4 L nasal cannula there is no fever or chills no headache or dizziness no chest pain no shortness of breath at rest patient has shortness of breath with any activity no nausea or vomiting no abdominal pain no diarrhea and no urinary symptoms On 07/19/2024 patient is alert and oriented x 3. Patient currently on nasal cannula 5 L. Patient had HANNA done was negative. Per neurology note patient refusing head CT at this time. Will consult oncology services due to concerns of lung mass discharge planning to [facility]. Patient denies chest pain. Patient denies nausea vomiting or diarrhea. Patient denies any urinary burning or frequency Objective - Vital Signs Vital signs: Vital Signs Temp 98.5 F 07/19/24 08:14 Pulse 82 07/19/24 08:14 Resp 18 07/19/24 08:14 BP 106/71 07/19/24 08:14 Pulse Ox 99 07/19/24 08:14 FiO2 40 07/17/24 08:19 Intake & Output 07/18/24 07/19/24 07/19/24 18:59 06:59 18:59 Intake Total 555 250 Output Total 670 1725 Balance -115 -1725 250 Intake: IV 75 Oral 480 250 Output: Urine 670 1725 Uretheral (Rock) 900 Other: Voiding Method Indwelling Catheter Indwelling Catheter - Exam In general patient is alert and oriented x 3 in no distress HEENT head normocephalic and atraumatic Neck is supple no JVD no goiter no lymphadenopathy no carotid bruit Chest examination reveals a scattered crackles bilaterally no wheezing Cardiac exam reveals regular heart sounds S1 and S2 no gallops no murmurs Abdomen is soft nontender no organomegaly with normal bowel sounds Extremity exam reveals 3+ edema with erythema and chronic stasis changes, multiple small ulceration with scabbing no cyanosis or clubbing Neurological examination reveals no gross focal deficits - Labs CBC & Chem 7: 07/19/24 07:26 07/19/24 07:26 Labs: Abnormal Lab Results - Last 24 Hours (Table) 07/18/24 07/18/24 07/18/24 Range/Units 11:31 16:56 19:55 RBC (4.10-5.20) 10*6/uL Hgb (12.0-15.0) g/dL MCV (80.0-97.0) fL MCHC (32.0-37.0) g/dL Sodium (137-145) mmol/L Chloride (98-107) mmol/L Carbon Dioxide (22-30) mmol/L BUN (7-17) mg/dL Creatinine (0.52-1.04) mg/dL Glucose (74-99) mg/dL POC Glucose (mg/dL) 179 H 213 H 191 H (70-110) mg/dL AST (14-36) U/L Total Protein (6.3-8.2) g/dL Albumin (3.5-5.0) g/dL 07/19/24 07/19/24 07/19/24 Range/Units 06:11 07:26 07:26 RBC 3.77 L (4.10-5.20) 10*6/uL Hgb 10.7 L (12.0-15.0) g/dL MCV 98.9 H (80.0-97.0) fL MCHC 28.7 L (32.0-37.0) g/dL Sodium 136 L (137-145) mmol/L Chloride 90 L (98-107) mmol/L Carbon Dioxide 42 H* (22-30) mmol/L BUN 30 H (7-17) mg/dL Creatinine 1.06 H (0.52-1.04) mg/dL Glucose 188 H (74-99) mg/dL POC Glucose (mg/dL) 183 H (70-110) mg/dL AST 40 H (14-36) U/L Total Protein 5.7 L (6.3-8.2) g/dL Albumin 3.0 L (3.5-5.0) g/dL Assessment and Plan Plan: Acute congestive heart failure exacerbation Bacteremia New 4.7 cm masslike consolidation opacity in the right midlung Fall at home, with generalized body pain Bilateral lower extremity cellulitis, with multiple open ulcers Underlying history of hypertension Underlying history of hyperlipidemia Underlying history of diabetes mellitus Underlying history of COPD Underlying history of morbid obesity At this time patient was admitted to telemetry floor Patient has been transferred out of the intensive care unit Remains on IV antibiotics Continue BiPAP Consultation for pulmonary, infectious disease, and cardiology initiated Will follow closely
[2024-07-19 11:29] LABS: Glucose,Whole Blood 196 mg/dL (70-110)
--- NOTE | 2024-07-19 13:04 | P.PN ---
Subjective Progress Note Date: 07/19/24 HISTORY OF PRESENT ILLNESS: This is a 73-year-old male with a past medical history significant for COPD, congestive heart failure, hypertension, and hyperlipidemia. 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 We have been asked to see the patient in consultation for congestive heart failure. Patient examined at the bedside. Patient presented to the hospital with a chief complaint of increased lower extremity swelling and shortness of breath. Patient was found to be in CHF and was started on IV Lasix. Patient currently denies any chest pain or pressure. Vital signs are stable. DIAGNOSTICS: - EKG reveals sinus mechanism with no signs of acute ischemia - Chest xray correlate for suspected CHF exacerbation. Additionally there is a 4.7 cm masslike consolidation in the right mid to lower lung. Underlying mass/malignancy is not excluded. - Laboratory data: WBC 11.22. Hemoglobin 11.3. Platelet count 185. Sodium 141. Potassium 4.3. BUN 17. Creatinine 0.9. - Current home cardiac medications include rosuvastatin 20 mg daily, enalapril 20 mg daily, and Lasix 40 mg in the morning and 20 mg in the afternoon. 07/06/2024 Patient examined this morning at the bedside. Patient apparently became hypotensive overnight with blood pressures in the 70s and 80s. Her Lasix was discontinued. However she was continued on lisinopril per primary medicine. Systolic blood pressure this morning is in the 90s. July 07, 2024 The patient was seen this morning she still have some change in mental status and she is somewhat lethargic and possibly dehydrated. She is getting a workup for possible sepsis. Hemodynamically she is stable now. The echo is as described above showed normal LV systolic function with mild aortic stenosis. The physical examination is remarkable for regular rhythm with a systolic murmur at the right and left upper sternal border with severe bilateral lower extremi ties chronic skin changes and chronic edema July 08, 2024 The patient was seen and evaluated this morning with apparently she was transferred from 6 N. to 3 [address].. She still have change in mental status currently under workup. Hemodynamically she is stable. She still have bilateral lower extremities edema. I am going to give the patient only 1 dose of Lasix IV and continue monitor the kidney function and electrolytes. She is under an investigation for right upper lobe mass with possible need for PET scan. The mass was seen on the CT scan as well as chest x-ray. The physical examination i s remarkable for change in mental status with regular rate and rhythm and mild sinus tachycardia and diminished breathing sounds bilaterally which is still hypoxic requiring BiPAP at 40% 07/09/2024 Patient has been on BiPAP, severely hypercapnic with retention of bicarb with metabolic encephalopathy Bicarb 44, BUN 29, creatinine 0.5, Hb 10.6 07/10/2024 Patient remains somnolent on BiPAP She is on IV antibiotics BP 123/69, heart rate 76, Echo from this admission shows an EF of 55%, moderate concentric LVH, moderate to severe pulmonary hypertension with RVSP of 54 mmHg, 07/11/2024 Patient examined this morning at the bedside. Patient remains confused. She is currently on BiPAP. BUN 28. Creatinine 0.68. 07/12/2024 Patient seen and examined at bedside this a.m. Patient was transferred to ICU because of confusion and delirium. For this patient received Precedex. Confusion delirium is most likely because of CO2 retention. 07/13/2024 Patient is still on 4 L nasal cannula supplemental oxygen, very drowsy, with hypoventilation related hypercapnia 07/14/2024 It was noted that patient went into atrial fibrillation yesterday. For this she was started on Cardizem drip and briefly thereafter she converted out of atrial fibrillation. She was transfer out of ICU to telemetry floor yesterday. BUN 32, creatinine 0.8 Negative fluid balance of 1.5 L yesterday. 07/15/2024 No further atrial fibrillation on telemetry. BP 130/63, heart rate 78 bpm BUN 30, creatinine 0.6, Still very weak, 3 L oxygen, 93 saturation, 07/16 Patient seen and examined. Patient states she is feeling better in general and also her breathing is improved. She states she still has some cough and some wheezing. She denies palpitations. No chest pain. Blood pressure 122/83, heart rate 82, pulse ox 96% on 6 L nasal cannula. Repeat blood work reveals hemoglobin 9.6, sodium 135, potassium 4, BUN 22 and creatinine 0.62. 07/17 Patient seen and examined. Patient denies having any chest pain or palpitations. Her shortness of breath is improving and she slept well last night. She has had good urine output and currently on oral Bumex. Blood pressure 126/55, heart rate 65, pulse ox 98% on 5 L nasal cannula. Repeat blood work reveals hemoglobin 10.6, BUN 22 creatinine 0.69, sodium 135 and potassium 4.2. CO2 39. Dr. Godwin is requesting a HANNA regarding bacteremia. 07/18 This morning, patient underwent HANNA with Dr. Alarcon which revealed no vegetation. She states her throat feels a little raw this morning. Her breathing is good. She denies chest pain or chest pressure. Blood pressure 109/56, heart rate 83, pulse ox 88 to 98% on 5 L nasal cannula. Repeat blood work reveals hemoglobin 11, potassium 4, BUN 24 and creatinine 0.7. 07/19 Patient seen and examined. She denies chest pain or chest pressure. Blood pressure 103/68, heart rate 77, pulse ox 97% on 5 L nasal cannula. Repeat blood work reveals WBC 7.5, hemoglobin 10.7, sodium 136, potassium 4.4, CO2 42, BUN 30 creatinine 1.06. No plan for any further cardiac intervention. PHYSICAL EXAM: VITAL SIGNS: Reviewed. GENERAL: Well-developed in no acute distress. HEENT: Head is normocephalic. Pupils are equal, round. Sclerae anicteric. Mucous membranes of the mouth are moist. Neck supple. No JVD or thyromegaly LUNGS: Respirations even and unlabored. Lungs essentially clear to auscultation bilaterally. No wheezing HEART: Regular rate and rhythm. S1 and S2 heard. 2/6 systolic murmur EXTREMITIES: Normal range of motion. No clubbing or cyanosis. Peripheral pulses intact. Bilateral lower extremity edema with evidence of cellulitis ASSESSMENT: Paroxysmal atrial fibrillation, currently in sinus rhythm Bilateral lower extremity cellulitis Acute on chronic heart failure with preserved EF Metabolic encephalopathy due to hypercapnia Acute on chronic hypoxic and hypercapnic respiratory failure Severe COPD Right lung mass, pulmonary following Hypertension, Hyperlipidemia Morbid obesity: BMI 46.1 Bacteremia, status post HANNA with no vegetation PLAN: Continue patient on Eliquis 5 mg twice daily for paroxysmal A-fib Continue patient on Bumex 1 mg p.o. twice daily Continue metoprolol tartrate 25 mg twice daily, Aldactone 25 mg daily No further cardiac workup at this time. Cardiology will sign off and follow on an as needed basis. Please call for any new concerns. At the time of discharge, patient will follow-up in the office with Dr. Alarcon in 2 weeks. Nurse practitioner note has been reviewed, I agree with documented findings and plan of care. Patient was seen and examined. Objective - Vital Signs Vital signs: Vital Signs Temp 98.0 F 07/19/24 11:38 Pulse 77 07/19/24 11:38 Resp 16 07/19/24 11:38 BP 103/68 07/19/24 11:38 Pulse Ox 97 07/19/24 11:38 FiO2 40 07/17/24 08:19 Intake & Output 07/18/24 07/19/24 07/19/24 18:59 06:59 18:59 Intake Total 555 700 Output Total 670 1725 300 Balance -115 -1725 400 Intake: IV 75 Oral 480 700 Output: Urine 670 1725 300 Uretheral (Rock) 900 Other: Voiding Method Indwelling Catheter Indwelling Catheter Indwelling Catheter - Labs CBC & Chem 7: 07/19/24 07:26 07/19/24 07:26 Labs: Abnormal Lab Results - Last 24 Hours (Table) 07/18/24 07/18/24 07/19/24 Range/Units 16:56 19:55 06:11 RBC (4.10-5.20) 10*6/uL Hgb (12.0-15.0) g/dL MCV (80.0-97.0) fL MCHC (32.0-37.0) g/dL Sodium (137-145) mmol/L Chloride (98-107) mmol/L Carbon Dioxide (22-30) mmol/L BUN (7-17) mg/dL Creatinine (0.52-1.04) mg/dL Glucose (74-99) mg/dL POC Glucose (mg/dL) 213 H 191 H 183 H (70-110) mg/dL AST (14-36) U/L Total Protein (6.3-8.2) g/dL Albumin (3.5-5.0) g/dL 07/19/24 07/19/24 07/19/24 Range/Units 07:26 07:26 11:28 RBC 3.77 L (4.10-5.20) 10*6/uL Hgb 10.7 L (12.0-15.0) g/dL MCV 98.9 H (80.0-97.0) fL MCHC 28.7 L (32.0-37.0) g/dL Sodium 136 L (137-145) mmol/L Chloride 90 L (98-107) mmol/L Carbon Dioxide 42 H* (22-30) mmol/L BUN 30 H (7-17) mg/dL Creatinine 1.06 H (0.52-1.04) mg/dL Glucose 188 H (74-99) mg/dL POC Glucose (mg/dL) 196 H (70-110) mg/dL AST 40 H (14-36) U/L Total Protein 5.7 L (6.3-8.2) g/dL Albumin 3.0 L (3.5-5.0) g/dL
--- NOTE | 2024-07-19 13:37 | P.PN ---
Subjective Progress Note Date: 07/19/24 Principal diagnosis: Acute on chronic hypoxic respiratory failure and enterococcal sepsis This is a 73-year-old obese white female today seen in room 620. She came to the hospital with 1 day of shortness of breath, leg swelling, and cough. Her viral screen was negative. The patient has smoked for about 40 to 45 years. The only medicine she takes at home for her breathing is albuterol. Her procalcitonin level was 0.05. Chest x-ray showed some fluid overload, but also showed a possible mass in the right midlung, which could be either an actual mass or pseudotumor. A CT scan was ordered. It does show a 7.1 lobulated mass in the right lung. A PET scan was recommended. Currently, the patient is on 4 L of oxygen. No fluids are ordered. She is getting Lasix 40 mg every 8 hours. She also has an updraft ordered. White count 1.22, hemoglobin 11.3, macro 39.1, platelet count 185,000. Coags are normal. Sodium 141, potassium 4.3, chlorides 94, CO2 39, BUN 17.5, creatinine 0.9. Glucose 169. Calcium 8.6. Troponin was negative. N-terminal proBNP was elevated at 1830. Procalcitonin level was 0.05. Urine is negative. Viral screen was negative. Chest x-ray was consistent with fluid overload/CHF. Cardiology has seen the patient. The patient is seen today July 06, 2024 in follow-up on the regular medical floor. She is currently sitting up in bed. Awake and alert in no acute distress. She is maintaining O2 saturations in the 90s on 4 L/min per nasal cannula. She is receiving normal saline at 75 mL/h. White count 10.2. Hemoglobin 11.5. Platelets 198. Sodium 134. Potassium 4.5. Bicarb 38. BUN 29. Creatinine 0.83. Glucose 132. She remains on cefazolin. IV diuretics were discontinued. The patient is seen today July 07, 2024 in follow-up on the regular medical floor. She is currently resting comfortably in bed. Awake and alert in no acute distress. Maintaining good O2 saturations in the 90s on 5 L/min per nasal cannula. She is receiving normal saline at 50 mL/h. Her blood culture isshowing Enterococcus faecium. She is currently on daptomycin. Remains on bronchodilators. 1.2. Platelets 204. Sodium 144. Potassium 5.2. Bicarb 39. BUN 24. Creatinine 0.6. Glucose 153. Progress note dated July 08, 2024. The patient was moved down to the third floor, sometime yesterday or last night, for respiratory distress. I was never notified. The patient was seen today in room 360. She was on BiPAP, with settings of 12/5, and 40%. She was getting saline at 20 cc an hour. A blood gas was done on 44% oxygen showing a pO2 of 84, pCO2 of 91, pH is 7.29. Her blood cultures were positive for Enterococcus faecium. For that reason, she is on daptomycin. Current labs include a white count 7.8, hemoglobin 11.2, hematocrit 38.3, and a platelet count of 173,000. Sodium 139, potassium 4.5, chlorides 93, CO2 40, BUN 29, and creatinine 0.58. Glucose 74. Albumin is 3. Chest x-ray done yesterday, continues to show me in addition, there is diffuse changes, consistent with fluid overload and/or pneumonia. On 07/09/2024, the patient is being seen for a follow-up. Morbidly obese female patient was hospitalized for an acute on top of chronic hypoxic and hypercapnic respiratory failure. At the time of my evaluation this morning, the patient was started on a BiPAP at a pressure of 12/5 with an FiO2 of 40%. I took the patient off the BiPAP and put her on 4 L of oxygen by nasal cannula. Subsequent blood gases showed a pH of 7.34 with pCO2 of 86 and pO2 162. The patient has a mass like consolidation involving the right lower lobe. This could be pneumonia versus malignancy. At the same time, the patient is septic and the source of sepsis is a wound infection and the patient has active wet wound with purulent foul-smelling material covering the wound base and the right lower extremity above the lateral malleolus. Blood culture was positive for Enterococcus faecalis and based on that, the patient has been maintained on a combination of daptomycin and the patient is also on IV cefepime. Repeat chest x-ray was done and it showed a right lower lobe masslike opacity that remains unchanged compared to the previous x-rays in addition to mild cardiomegaly and pulm vessel congestion. The patient is sitting daily diuresis. The patient is producing excellent urine output and the fluid balance is -2.6 L over the past 24 hours. The white cell count is 7.1 with a heme of 10.6 and a platelet count of 151. Serum bicarb is 44 with BUN of 29 and a creatinine of 0.5. Sodium is at 140. She remains encephalopathic. She is arousable. She has tolerated the BiPAP reasonably well. On 07/10/2024, the patient is being seen for a follow-up. The patient remains on BiPAP and she seems to be tolerating the BiPAP reasonably well. This morning, the patient is on a BiPAP at a pressure of 12 over 5 cm of water with an FiO2 of 40% which is essentially the same setting as yesterday. She is arousable and she is able to communicate. At times confused. I took this patient off the BiPAP and put her on oxygen at 5 L/min nasal cannula. Subsequent blood gases showed a pH of 7.33 with a pCO2 of 78 and pO2 of 129. She is still lethargic and weak. Denies having any chest pain. She does have swelling in lower extremities bilaterally. She was given IV Lasix yesterday and her fluid balance is -3.1 L over the past 24 hours. She remains on Bumex 1 mg p.o. daily. She is also on Diamox 5 mg IV every 12 hours. The blood work from today shows a BUN of 24 with a creatinine of 0.7. Serum bicarb is at 36 and a sodium levels at 140. The white cell count is 7.9 with a hemoglobin of 11.4 and a platelet count of 164. The follow-up chest x-ray from yesterday was still showing a masslike consolidation/opacity in the right midlung/right lower lobe area. The patient also has some ongoing mild cardiomegaly. Wound care is being applied. ID is on the case. The patient remains on daptomycin and IV cefepime. On 07/11/2024, the patient is being seen for a follow-up. Remains quite lethargic and continues to have diminished level of consciousness. She remains on a BiPAP at her same setting of 12 over 5 cm of water. Repeat blood gas was done with an FiO2 40% showed a pH of 7.36 with a pCO2 of 71 and pO2 of 83. The patient is however arousable. She continues to be treated for a extensive right lower extremity wound infection with septicemia the patient had Enterococcus faecium and she remains essentially same antibiotic coverage including combination of cefepime and daptomycin. On today's blood work, the white cell count is 7.4 with a hemoglobin 10.9 and a platelet count of 174. The sodium level is at 139, BUN is 28 with a creatinine of 0.6. Potassium is at 4 and a serum bicarb is at 39. She is on Diamox 500 mg IV every 12 hours. She is on Bumex 1 mg p.o. daily. Rest of the medications are essentially unchanged. No significant agitation. 07/12/2024, the patient is being seen for a follow-up. On today's evaluation, the patient is arousable and she is able to communicate. She does have some background encephalopathy and confusion. She is complaining of pain involving lower extremities the patient has extensive wounds in lower extremities bilaterally involving the lateral aspect of the lower extremities bilaterally above the ankle. The area was inspected today and the wound base is erythematous and less purulence. No foul drainage at this point in time. The patient was taken off the BiPAP this morning. The patient was placed on oxygen and she is currently at 60s over the nasal cannula. Repeat blood gas was done and the patient showed a pH of 7.35 with a pCO2 of 65 and pO2 of 52 and this was on FiO2 of 36%. The follow-up chest x-ray from today shows a masslike consolidation in the right lung which seems to be less dense and more hazy. There is also cardiomegaly and pulm vascular congestion with mild pulm vascular congestion. The white cell count is at 9, hemoglobin is 10.7 and a platelet count of 176. BUN is 34 with a creatinine of 0.6 and a sodium level is at 137. The patient is receiving Diamox to 50 mg p.o. daily. The patient remains on Las ix 40 mg IV push every 12 hours. The fluid balance is -1.7 L over the past 24 hours. The patient remains on broad-spectrum antibiotics. The patient is currently on cefepime and daptomycin. Rest of the medications remain unchanged. She remains on Aldactone 25 mg p.o. daily and trazodone at bedtime 50 mg nightly. 07/13/2024, the patient is being seen for a follow-up. Patient is awake and alert and communicating. Denies having any significant complaints other than pain in her back and lower extremities bilaterally. Neurologically, much more awake and alert and communicating. No signs of any CO2 narcosis. Remains on IV Lasix. Remains on Aldactone and Diamox. Most recent blood gas from yesterday showed marked improvement respiratory status. Current serum bicarb level is at 32, sodium is at 135 with a potassium level 3.9. The white cell count of 3.5 with a hemoglobin of 11 and a platelet count of 172. She is utilizing the BiPAP only overnight. Patient has adequate urine output. Denies having any other complaints. Tolerating the oral intake. No reported aspiration. Chest x-ray from yesterday still showing cardiomegaly and pulm vessel congestion in addition to a vague right midlung opacity that is being followed up by serial chest x- rays. She remains on a combination of cefepime and daptomycin. ID is on the case. She is still on a combination of Desyrel and Seroquel. 07/14/2024, the patient is being seen for a follow-up. Overnight, the patient was utilizing her BiPAP at a pressure of 12 over 5 cm of water. This morning, the patient is still on a BiPAP. She is arousable and awake. No significant events overnight. No chest pain. No focal neurological deficits. Remains on the same regimen of antibiotics and the patient remains on daptomycin. ID is on the case. She remains on diuretics. She is on IV Lasix 40 mg every 12 hours and Aldactone 25 mg p.o. daily. She is also on Diamox to 50 mg p.o. on a daily basis. Sodium levels at 132, potassium level is at 4.1, BUN 32 with a creatinine 0.8. The white cell count of 10.9 with a hemoglobin 12 and a platelet count of 206. She was transferred out of the intensive care unit yesterday. No fever. No chills. She is still undergoing wound care to her lower extremity wounds and ID is on the case. 07/15/2024, the patient is being seen for a follow-up. She did encounter some episodes of confusion yesterday. This morning she is on a BiPAP and I took her off the BiPAP and put her on 3 L of oxygen by nasal cannula. She seems to be much more appropriate. She remains on IV Lasix. She is also on Aldactone. Fluid balance is -1.7 L over the past 24 hours. No specific complaints. Antibiotics remain daptomycin. The white cell count is at 8.3, hemoglobin is 10 and platelet count of 206. BUN is at 30 with a creatinine of 0.600 serum bicarb level is at 37. No new complaints otherwise for now. Patient was seen today on 07/16/2024, patient was seen on follow-up, seems to be about the same, she is not confused today, she is intermittently on BiPAP, during my evaluation she was on 2 L nasal cannula, seems to be very appropriate, remains on diuretics including Lasix and Aldactone. She had a significant negative fluid balance over the last 24 hours. Remains on daptomycin for enterococcal infection. WBC count is 9 hemoglobin 11.6, basic metabolic profile is normal ABG from yesterday was noted and it showed a pO2 of 120 pCO2 73 pH of 7.33. Her chest x-ray today continues to show evidence of congestive heart failure with cardiomegaly and small bilateral pleural effusions there is cierra dence of right midlung mass highly suggestive of malignancy needs outpatient follow-up and possible bronc and biopsy Seen today on 07/17/2024, patient is feeling much better today compared to the prior days. Breathing easier, less shortness of breath, her mentation even seems to be improving. Remains on daptomycin for her enterococcal infection, she is on 3 L nasal cannula, remains on diuretics including Lasix and Aldactone. Reviewed her previous CT of the chest, patient does have a lung mass suspicious for bronchogenic carcinoma however this will need outpatient follow-up. WBC count is 8.5 hemoglobin is 10.6 electrolytes are normal renal profile is normal bicarb is 39 Seen today on 07/18/2024, patient is feeling better today, she has good days and bad days but overall she is doing well, remains on antibiotics, remains on 5 L nasal cannula, O2 saturation is 100%. WBC count is 8.8 hemoglobin is 11 basic metabolic profile is normal bicarb is 40 renal profile is normal. Patient was seen today , patient is about the same, steadily improving, remains on antibiotics as per infectious disease on the case. Remains on 5 L nasal cannula and she has O2 saturation in the high 90s. Denies shortness of breath denies any cough or wheezing. WBC count is 7.56 hemoglobin 10.7 electr olytes are normal bicarb is 14 BUN is 30 creatinine 1.06, remains on diuretics including Bumex 1 mg twice daily remains on metoprolol and Aldactone she is also on Eliquis. For paroxysmal atrial fibrillation. Objective - Vital Signs Vital signs: Vital Signs Temp 98.0 F 07/19/24 11:38 Pulse 77 07/19/24 11:38 Resp 16 07/19/24 11:38 BP 103/68 07/19/24 11:38 Pulse Ox 97 07/19/24 11:38 FiO2 40 07/17/24 08:19 Intake & Output 07/18/24 07/19/24 07/19/24 18:59 06:59 18:59 Intake Total 555 700 Output Total 670 1725 300 Balance -115 -1725 400 Intake: IV 75 Oral 480 700 Output: Urine 670 1725 300 Uretheral (Rock) 900 Other: Voiding Method Indwelling Catheter Indwelling Catheter Indwelling Catheter - Exam GENERAL EXAM: 73-year-old female in no distress on 5 L nasal cannula O2 sat is 99% HEAD: Normocephalic. EYES: Normal reaction of pupils, equal size. NOSE: Clear with pink turbinates. THROAT: No erythema or exudates. NECK: No masses, no JVD. CHEST: No chest wall deformity. LUNGS: Equal air entry with no crackles, wheeze, rhonchi or dullness. CVS: S1 and S2 normal with no audible murmur, regular rhythm. ABDOMEN: No hepatosplenomegaly, normal bowel sounds, no guarding or rigidity. SKIN: No rashes. Chronic venous stasis of the lower extremities. Purulent bilateral lower extremity ulcer with purulent material covering the base of the ulcer on the right lower extremity and stage IV heel ulcer in the right foot. CENTRAL NERVOUS SYSTEM: Alert oriented x 3 no gross focal deficit EXTREMITIES: Changes of chronic venous stasis. There is no peripheral edema. No clubbing, no cyanosis. Peripheral pulses are intact. - Labs CBC & Chem 7: 07/19/24 07:26 07/19/24 07:26 Labs: Abnormal Lab Results - Last 24 Hours (Table) 07/18/24 07/18/24 07/19/24 Range/Units 16:56 19:55 06:11 RBC (4.10-5.20) 10*6/uL Hgb (12.0-15.0) g/dL MCV (80.0-97.0) fL MCHC (32.0-37.0) g/dL Sodium (137-145) mmol/L Chloride (98-107) mmol/L Carbon Dioxide (22-30) mmol/L BUN (7-17) mg/dL Creatinine (0.52-1.04) mg/dL Glucose (74-99) mg/dL POC Glucose (mg/dL) 213 H 191 H 183 H (70-110) mg/dL AST (14-36) U/L Total Protein (6.3-8.2) g/dL Albumin (3.5-5.0) g/dL 07/19/24 07/19/24 07/19/24 Range/Units 07:26 07:26 11:28 RBC 3.77 L (4.10-5.20) 10*6/uL Hgb 10.7 L (12.0-15.0) g/dL MCV 98.9 H (80.0-97.0) fL MCHC 28.7 L (32.0-37.0) g/dL Sodium 136 L (137-145) mmol/L Chloride 90 L (98-107) mmol/L Carbon Dioxide 42 H* (22-30) mmol/L BUN 30 H (7-17) mg/dL Creatinine 1.06 H (0.52-1.04) mg/dL Glucose 188 H (74-99) mg/dL POC Glucose (mg/dL) 196 H (70-110) mg/dL AST 40 H (14-36) U/L Total Protein 5.7 L (6.3-8.2) g/dL Albumin 3.0 L (3.5-5.0) g/dL Microbiology - Last 24 Hours (Table) 07/14/24 05:56 Blood Culture - Final Blood Assessment and Plan Assessment: Impression: Acute on chronic hypoxic and hypercapnic respiratory failure patient has a combination of COPD and congestive heart failure/diastolic congestive heart failure, patient was noted to have preserved LV function Severe pulmonary hypertension Mild aortic stenosis sepsis secondary to enterococcal septicemia with negative blood cultures patient is on daptomycin Morbid obesity Altered mental status/encephalopathy with CO2 narcosis 7.1 cm right mid lung mass, needs outpatient follow-up with Dr. Stokes and wi ll eventually require a PET scan on outpatient basis. Type 2 diabetes Dyslipidemia Hypothyroidism Recommendation: Continue oxygen and titrate accordingly Continue bronchodilators Continue diuretics Continue to monitor blood cultures, patient had positive blood cultures for Enterococcus faecium remains on daptomycin, follow-up blood cultures have been negative Continue to monitor pulmonary status Right lung mass, needs outpatient follow-up postdischarge Patient will eventually need outpatient follow-up and bronchoscopy/biopsy. Patient will basically need clearance for discharge by infectious disease Will continue to follow Time with Patient: Less than 30
--- NOTE | 2024-07-19 15:02 | P.PN ---
Subjective Progress Note Date: 07/18/24 Principal diagnosis: Reason for follow-up with lower extremity ulcer and cellulitis Patient is a 73-year-old female with a past medical history significant for COPD heart failure diabetes mellitus reflux hyperlipidemia presenting to the hospital for evaluation of a fall that happened the day of presentation to the hospital patient accidentally rolled off the couch onto the floor and was too weak to get herself up, noticed to have bilateral extremity ulcer and cellulitis prompted this consultation. On today's evaluation that is 07/18/2024,the patient denies any fever or any chills, patient is breathing comfortably on 5 L nasal oxygen the patient denies chest pain shortness of breath and no significant cough, patient denies abdominal pain, no nausea vomiting or diarrhea. Patient white count is 8.81, creatinine 0.70 HANNA was negative Objective - Vital Signs Vital signs: Vital Signs Temp 98.1 F 07/18/24 11:05 Pulse 73 07/18/24 11:05 Resp 17 07/18/24 11:05 BP 116/66 07/18/24 11:05 Pulse Ox 98 07/18/24 11:05 FiO2 40 07/17/24 08:19 Intake & Output 07/17/24 07/18/24 07/18/24 18:59 06:59 18:59 Intake Total 1200 75 Output Total 1750 1150 Balance -550 -1150 75 Weight 103.8 kg Intake: IV 75 Oral 1200 Output: Urine 1750 1150 Other: Voiding Method Indwelling Catheter Indwelling Catheter Indwelling Catheter - Exam GENERAL DESCRIPTION: An elderly female lying in bed in no distress RESPIRATORY SYSTEM: Unlabored breathing , decreased breath sounds at bases HEART: S1 S2 regular rate and rhythm , ABDOMEN: Soft , no tenderness EXTREMITIES: Bilateral lower extremity currently wrapped with an Blue wrap no drainage - Labs CBC & Chem 7: 07/19/24 07:26 07/19/24 07:26 Labs: Abnormal Lab Results - Last 24 Hours (Table) 07/17/24 07/17/24 07/18/24 Range/Units 16:45 20:39 06:03 RBC (4.10-5.20) 10*6/uL Hgb (12.0-15.0) g/dL Hct (37.2-46.3) % MCV (80.0-97.0) fL MCHC (32.0-37.0) g/dL Chloride (98-107) mmol/L Carbon Dioxide (22-30) mmol/L BUN (7-17) mg/dL Glucose (74-99) mg/dL POC Glucose (mg/dL) 178 H 177 H 177 H (70-110) mg/dL AST (14-36) U/L Total Protein (6.3-8.2) g/dL Albumin (3.5-5.0) g/dL 07/18/24 07/18/24 07/18/24 Range/Units 06:15 06:15 11:31 RBC 3.79 L (4.10-5.20) 10*6/uL Hgb 11.0 L (12.0-15.0) g/dL Hct 37.0 L (37.2-46.3) % MCV 97.6 H (80.0-97.0) fL MCHC 29.7 L (32.0-37.0) g/dL Chloride 92 L (98-107) mmol/L Carbon Dioxide 40 H (22-30) mmol/L BUN 24 H (7-17) mg/dL Glucose 172 H (74-99) mg/dL POC Glucose (mg/dL) 179 H (70-110) mg/dL AST 44 H (14-36) U/L Total Protein 5.5 L (6.3-8.2) g/dL Albumin 2.9 L (3.5-5.0) g/dL Microbiology - Last 24 Hours (Table) 07/14/24 05:56 Blood Culture - Preliminary Blood Assessment and Plan (1) Leg ulcer, left Current Visit: Yes Status: Acute Code(s): L97.929 - NON-PRS CHRONIC ULC UNSP PRT OF L LOW LEG W UNSP SEVERITY SNOMED Code(s): 03558131 (2) Left leg cellulitis Current Visit: Yes Status: Acute Code(s): L03.116 - CELLULITIS OF LEFT LOWER LIMB SNOMED Code(s): 93331109883023168 (3) Penicillin allergy Current Visit: Yes Status: Acute Code(s): Z88.0 - ALLERGY STATUS TO PENICILLIN SNOMED Code(s): 48233459 (4) Bacteremia Current Visit: Yes Status: Acute Code(s): R78.81 - BACTEREMIA SNOMED Code(s): 1321874 Plan: 1patient with diffuse swelling of bilateral lower extremity with superficial solution to the left leg likely venous stasis ulcer with secondary cellulitis likely from gram-positive skin neida. 2patient with a penicillin allergy that will limit the number of antibiotics safe to use. 3local wound care to the left leg with dry Aquacel dressing and Blue wrap to keep the swelling down, and apply Santyl to the wound to the right heel change daily. 4patient did have resolution of the fever and white count is normal however the patient blood culture repeat came back positive highly clinically suspicious for possible endovascular source such as endocarditis 5patient CT of the abdominal pelvis did not show any acute findings UA was negative, patient did have a HANNA that was negative for any vegetation 7I will discontinue daptomycin and gentamicin and the patient on Zyvox 600 mg twice daily Dictation was produced using [employer] dictation software. please excuse any grammatical, word or spelling errors. Time with Patient: Less than 30
--- NOTE | 2024-07-19 15:03 | P.PN ---
Subjective Progress Note Date: 07/19/24 Principal diagnosis: Reason for follow-up with lower extremity ulcer and cellulitis Patient is a 73-year-old female with a past medical history significant for COPD heart failure diabetes mellitus reflux hyperlipidemia presenting to the hospital for evaluation of a fall that happened the day of presentation to the hospital patient accidentally rolled off the couch onto the floor and was too weak to get herself up, noticed to have bilateral extremity ulcer and cellulitis prompted this consultation. On today's evaluation that is 07/19/2024,the patient remains to be afebrile, patient is on 5 L nasal cannula supplemental oxygen and denies any shortness of breath no chest pain or cough.Patient denies having any nausea or vomiting, no abdominal pain and no diarrhea some discomfort lower extremity which are currently wrapped. Patient white count 7.56 creatinine 1.06, blood culture repeat has been negative Objective - Vital Signs Vital signs: Vital Signs Temp 98.0 F 07/19/24 11:38 Pulse 77 07/19/24 11:38 Resp 16 07/19/24 11:38 BP 103/68 07/19/24 11:38 Pulse Ox 97 07/19/24 11:38 FiO2 40 07/17/24 08:19 Intake & Output 07/18/24 07/19/24 07/19/24 18:59 06:59 18:59 Intake Total 555 700 Output Total 670 1725 300 Balance -115 -1725 400 Intake: IV 75 Oral 480 700 Output: Urine 670 1725 300 Uretheral (Rock) 900 Other: Voiding Method Indwelling Catheter Indwelling Catheter Indwelling Catheter - Exam GENERAL DESCRIPTION: An elderly female lying in bed in no distress RESPIRATORY SYSTEM: Unlabored breathing , decreased breath sounds at bases HEART: S1 S2 regular rate and rhythm , ABDOMEN: Soft , no tenderness EXTREMITIES: Bilateral lower extremity currently wrapped with an Blue wrap no drainage - Labs CBC & Chem 7: 07/19/24 07:26 07/19/24 07:26 Labs: Abnormal Lab Results - Last 24 Hours (Table) 07/18/24 07/18/24 07/19/24 Range/Units 16:56 19:55 06:11 RBC (4.10-5.20) 10*6/uL Hgb (12.0-15.0) g/dL MCV (80.0-97.0) fL MCHC (32.0-37.0) g/dL Sodium (137-145) mmol/L Chloride (98-107) mmol/L Carbon Dioxide (22-30) mmol/L BUN (7-17) mg/dL Creatinine (0.52-1.04) mg/dL Glucose (74-99) mg/dL POC Glucose (mg/dL) 213 H 191 H 183 H (70-110) mg/dL AST (14-36) U/L Total Protein (6.3-8.2) g/dL Albumin (3.5-5.0) g/dL 07/19/24 07/19/24 07/19/24 Range/Units 07:26 07:26 11:28 RBC 3.77 L (4.10-5.20) 10*6/uL Hgb 10.7 L (12.0-15.0) g/dL MCV 98.9 H (80.0-97.0) fL MCHC 28.7 L (32.0-37.0) g/dL Sodium 136 L (137-145) mmol/L Chloride 90 L (98-107) mmol/L Carbon Dioxide 42 H* (22-30) mmol/L BUN 30 H (7-17) mg/dL Creatinine 1.06 H (0.52-1.04) mg/dL Glucose 188 H (74-99) mg/dL POC Glucose (mg/dL) 196 H (70-110) mg/dL AST 40 H (14-36) U/L Total Protein 5.7 L (6.3-8.2) g/dL Albumin 3.0 L (3.5-5.0) g/dL Assessment and Plan (1) Leg ulcer, left Current Visit: Yes Status: Acute Code(s): L97.929 - NON-PRS CHRONIC ULC UNSP PRT OF L LOW LEG W UNSP SEVERITY SNOMED Code(s): 59773635 (2) Left leg cellulitis Current Visit: Yes Status: Acute Code(s): L03.116 - CELLULITIS OF LEFT LOWER LIMB SNOMED Code(s): 59570437448753814 (3) Penicillin allergy Current Visit: Yes Status: Acute Code(s): Z88.0 - ALLERGY STATUS TO PENICILLIN SNOMED Code(s): 55446333 (4) Bacteremia Current Visit: Yes Status: Acute Code(s): R78.81 - BACTEREMIA SNOMED Code(s): 4853230 Plan: 1patient with diffuse swelling of bilateral lower extremity with superficial solution to the left leg likely venous stasis ulcer with secondary cellulitis likely from gram-positive skin neida. 2patient with a penicillin allergy that will limit the number of antibiotics safe to use. 3local wound care to the left leg with dry Aquacel dressing and Blue wrap to keep the swelling down, and apply Santyl to the wound to the right heel change daily. 4patient did have resolution of the fever and white count is normal however the patient blood culture repeat came back positive highly clinically suspicious for possible endovascular source such as endocarditis 5patient CT of the abdominal pelvis did not show any acute findings UA was negative, patient did have a HANNA that was negative for any vegetation 7patient in bed he has been switched over to Zyvox 600 mg twice daily as of 07/18/2024 and plan is for about a week - 10 days of antibiotic on discharge Dictation was produced using [employer] dictation software. please excuse any grammatical, word or spelling errors. Time with Patient: Less than 30
[2024-07-19 16:41] LABS: Glucose,Whole Blood 213 mg/dL (70-110)
--- NOTE | 2024-07-19 17:52 | US ---
EXAMINATION TYPE: US thyroid st tissue head/neck DATE OF EXAM: 07/19/2024 COMPARISON: NONE CLINICAL INDICATION: Female, 73 years old with history of LEFT NECK SWELLING, LUNG MASS; Left supracl avicular area. TECHNIQUE: Grayscale imaging of the left supraclavicular region. FINDINGS: Scanned area of concern. No abnormalities visualized. No organizing fluid collection or m ass. Abundance of lipomatous tissue noted. IMPRESSION: No organizing fluid collection or lymphadenopathy. Identified. Abundance of lipid tissue seen in this region. Consider CT imaging if palpable marker placement remains concern. [facility], , 07/19/2024 5:50 PM
[2024-07-19 20:08] LABS: Glucose,Whole Blood 150 mg/dL (70-110)
--- NOTE | 2024-07-19 23:01 | P.CONS ---
History of Present Illness - Reason for Consult Consult date: 07/19/24 lung mass Requesting physician: Shalom Gray - Chief Complaint SOB, fall - History of Present Illness Ms. Robertson is a pleasant female patient admitted 07/04/2024 with complaints of shortness of breath and a fall. Patient fell onto the floor from the couch, too weak to get up, laid on the floor for 12 hours. Since her admission she has had multiple tests and seen numerous consults including Pulmonary for COPD, possible pneumonia, Infectious Disease lower extremity infection, Cardiology for history of congestive heart failure and Neurology for confusion. Patient unfortunately refused the use the CT. We have been consulted for a lung mass. CT chest with c ontrast performed 07/05/2024 reports lobulated anterior right upper/middle lobe, peripheral pulmonary mass measuring 7.1 x 3.8 cm. Few small mediastinal lymph nodes. No osseous abnormalities. CT AP without contrast showed no acute abnormality in the pelvis or abdomen. Nuclear medicine WBC whole-body scan, was nondiagnostic Patient reports a history of skin cancer on the back of her rt calf about 7-8 years ago, treated with surgery and radiation. She felt the bump in the area recently but, that went away spontaneously. Patient is currently dealing with significant skin changes of the bilateral lower extremities, looks like lymphedema. Patient denies any fevers, sweats, unintentional weight loss, no nausea nausea, vomiting, chest pain, abdominal pain, acute changes in bowel or bladder habits. She is reporting more recently some dysphagia with a cough. She was confused at times during our conversation, so, her friend at the bedside did provide some of the history. Review of Systems 10 point review of systems is negative except as stated in HPI, some information is provided by friend at the bedside Past Medical History Past Medical History: Heart Failure, COPD, Diabetes Mellitus, GERD/Reflux, Hyper lipidemia, Thyroid Disorder Additional Past Medical History / Comment(s): home O2 3-6L per pt. History of Any Multi-Drug Resistant Organisms: None Reported Past Surgical History: Cholecystectomy Additional Past Surgical History / Comment(s): foot Left plate and pins Past Anesthesia/Blood Transfusion Reactions: No Reported Reaction Past Psychological History: Anxiety Additional Psychological History / Comment(s): Anxiety Smoking Status: Former smoker Past Alcohol Use History: None Reported Additional Past Alcohol Use History / Comment(s): STARTED SMOKING AT AGE 16, SIG OTHER STATED SHE SMOKES 1.5 PPD Past Drug Use History: None Reported Additional Drug Use History / Comment(s): RARE USE OF MARIJUANA - Past Family History Mother Family Medical History: Hypertension Father Family Medical History: Cancer Medications and Allergies Home Medications Medication Instructions Recorded Confirmed Type Albuterol Inhaler [Ventolin Hfa 1 - 2 puff INHALATION RT-Q6H PRN 01/08/15 07/04/24 History Inhaler] Enalapril [Vasotec] 20 mg PO DAILY 07/04/24 07/04/24 History Ergocalciferol [Vitamin D2 (1250 1,250 mcg PO MO 07/04/24 07/04/24 History Mcg = 59686 Iu)] Furosemide [Lasix] 20 mg PO DAILY@1830 07/04/24 07/04/24 History Furosemide [Lasix] 40 mg PO QAM 07/04/24 07/04/24 History HYDROcodone/APAP 10-325MG [[place] 1 tab PO TID PRN 07/04/24 07/04/24 History 10-325] Insulin Glargine,Hum.rec.anlog 70 units SQ DAILY 07/04/24 07/04/24 History [Lantus Solostar Pen] Phentermine HCl [Adipex-P] 37.5 mg PO DAILY 07/04/24 07/04/24 History Rosuvastatin [Crestor] 20 mg PO DAILY 07/04/24 07/04/24 History traZODone HCL [Desyrel] 50 mg PO HS 07/04/24 07/04/24 History Allergies Allergy/AdvReac Type Severity Reaction Status Date / Time Penicillins Allergy Rash/Hives Verified 07/04/24 14:26 Physical Exam Vitals: Vital Signs Temp Pulse Pulse Resp BP BP Pulse Ox 07/19/24 15:23 97 07/19/24 11:38 98.0 F 77 16 103/68 97 07/19/24 08:14 98.5 F 82 18 106/71 99 07/19/24 08:05 98.4 F 79 14 106/68 97 07/19/24 07:50 79 07/19/24 05:45 98.1 F 68 18 101/58 99 07/19/24 01:45 73 85 18 07/18/24 23:49 97.4 F L 85 18 88/62 93 L 07/18/24 20:54 98.9 F 73 84 18 89/60 97 Intake and Output 07/19/24 07/19/24 07/19/24 06:59 14:59 22:59 Intake Total 710 Output Total 1325 300 Balance -1325 410 Intake: IV 10 Invasive Line 10 10 Oral 700 Output: Urine 1325 300 Uretheral (Rock) 900 Stool 0 Other: Voiding Method Indwelling Catheter Indwelling Catheter - Constitutional General appearance: cooperative, no acute distress, obese - EENT Eyes: anicteric sclerae, EOMI ENT: hearing grossly normal, thrush - Neck Neck: lymphadenopathy - Respiratory Respiratory: bilateral: diminished - Cardiovascular Rhythm: regular Heart sounds: normal: S1, S2 Abnormal Heart Sounds: no systolic murmur, no diastolic murmur, no rub, no S3 Gallop, no S4 Gallop, no click, no other leg Peripheral Edema: bilateral: 1+ - Gastrointestinal General gastrointestinal: no absent bowel sounds, no decreased bowel sounds, no distended, no hepatomegaly, no hyperactive bowel sounds, normal bowel sounds, no organomegaly, no rigid, no scaphoid, soft, no splenomegaly, no tenderness, no umbilical hernia, no ventral hernia - Integumentary Bilateral lower extremities are wrapped in Blue bandages, the skin on the toes is rough, bumpy, looks most consistent with the lymphedema - Neurologic Neurologic: CNII-XII intact - Musculoskeletal Musculoskeletal: generalized weakness - Psychiatric During our conversation patient made some comments that were not on track with our discussion but, at other times she seemed completely coherent, she is alert Results CBC & Chem 7: 07/19/24 07:26 07/19/24 07:26 Labs: Abnormal Lab Results - Last 24 Hours (Table) 07/18/24 07/18/24 07/19/24 Range/Units 16:56 19:55 06:11 RBC (4.10-5.20) 10*6/uL Hgb (12.0-15.0) g/dL MCV (80.0-97.0) fL MCHC (32.0-37.0) g/dL Sodium (137-145) mmol/L Chloride (98-107) mmol/L Carbon Dioxide (22-30) mmol/L BUN (7-17) mg/dL Creatinine (0.52-1.04) mg/dL Glucose (74-99) mg/dL POC Glucose (mg/dL) 213 H 191 H 183 H (70-110) mg/dL AST (14-36) U/L Total Protein (6.3-8.2) g/dL Albumin (3.5-5.0) g/dL 07/19/24 07/19/24 07/19/24 Range/Units 07:26 07:26 11:28 RBC 3.77 L (4.10-5.20) 10*6/uL Hgb 10.7 L (12.0-15.0) g/dL MCV 98.9 H (80.0-97.0) fL MCHC 28.7 L (32.0-37.0) g/dL Sodium 136 L (137-145) mmol/L Chloride 90 L (98-107) mmol/L Carbon Dioxide 42 H* (22-30) mmol/L BUN 30 H (7-17) mg/dL Creatinine 1.06 H (0.52-1.04) mg/dL Glucose 188 H (74-99) mg/dL POC Glucose (mg/dL) 196 H (70-110) mg/dL AST 40 H (14-36) U/L Total Protein 5.7 L (6.3-8.2) g/dL Albumin 3.0 L (3.5-5.0) g/dL Microbiology - Last 24 Hours (Table) 07/14/24 05:56 Blood Culture - Final Blood CT scan - abdomen: report reviewed CT scan - chest: report reviewed CT scan - pelvis: report reviewed Assessment and Plan (1) Lung mass Current Visit: Yes Status: Acute Priority: High Code(s): R91.8 - OTHER NONSPECIFIC ABNORMAL FINDING OF LUNG FIELD SNOMED Code(s): 743442007 Plan: Lung mass -CT chest with contrast performed 07/05/2024 reports lobulated anterior right upper/middle lobe, peripheral pulmonary mass measuring 7.1 x 3.8 cm. Few small mediastinal lymph nodes. No osseous abnormalities. CT AP without contrast showed no acute abnormality in the pelvis or abdomen. - Discussed with patient and friend at the bedside concerning findings. -Pulmonary notes reviewed. Concerns for malignancy versus a masslike pneumonia that needs to be followed up. It is my impression that plans are to treat for her current situation and follow-up with possibly a PET scan and then plan for biopsy from there. -MRI of the brain has been ordered because of patient's confusion, friend at the bedside states that patient has been confused just the last few weeks. - On exam the left supraclavicular area was swollen, not certain if there was an underlying mass so, ultrasound of the area has been ordered to assess. - We will follow along with you and pending plans for further workup once patient's acute condition is adequately treated
[2024-07-20 06:01] LABS: Glucose,Whole Blood 214 mg/dL (70-110)
[2024-07-20 06:11] LABS: Basophils # (A) 0.04 10*3/uL (0.00-0.10); Basophils % (A) 0.5 %; Eosinophils # (A) 0.15 10*3/uL (0.04-0.35); Eosinophils % (A) 1.9 %; HCT 36.7 % (37.2-46.3); Lymphocytes # (A) 1.43 10*3/uL (0.90-5.00); Lymphocytes % (A) 18.5 %; MCV 96.8 fL (80.0-97.0); Mean Platelet Volume 10.3 fL (9.5-12.2); Monocytes # (A) 0.58 10*3/uL (0.20-1.00); Monocytes % (A) 7.5 %; Neutrophils # (A) 5.51 10*3/uL (1.80-7.70); Neutrophils % (A) 71.2 %; Platelet Count 306 10*3/uL (140-440); RBC 3.79 10*6/uL (4.10-5.20); RDW 14.4 % (11.5-14.5); WBC 7.74 10*3/uL (4.50-10.00)
[2024-07-20 06:40] LABS: ALT 35 U/L (4-34); AST 56 U/L (14-36); African American GFR (CKD) 79 (>60 ml/min/1.73 sqM); Albumin 3.1 g/dL (3.5-5.0); Alkaline Phosphatase 81 U/L (38-126); Blood Urea Nitrogen 30 mg/dL (7-17); Calcium 9.1 mg/dL (8.4-10.2); Chloride 87 mmol/L (98-107); Glucose 171 mg/dL (74-99); Non-African American GFR(CKD) 69 (>60 ml/min/1.73 sqM); Potassium 4.3 mmol/L (3.5-5.1); Sodium 133 mmol/L (137-145); Total Bilirubin 0.4 mg/dL (0.2-1.3); Total Protein 5.8 g/dL (6.3-8.2)
[2024-07-20 06:47] LABS: Anion Gap 8 mmol/L
[2024-07-20 07:09] LABS: Carbon Dioxide 38 mmol/L (22-30)
[2024-07-20 11:37] LABS: Glucose,Whole Blood 167 mg/dL (70-110)
--- NOTE | 2024-07-20 11:47 | P.PN ---
Subjective Progress Note Date: 07/20/24 Ajay Robertson, is a 73-year-old female who presented to [facility] emergency room with a chief complaint of worsening shortness of breath, additionally patient was found on the floor in her house, she stated that she fell while asleep and was not able to stand up. She was evaluated in the emergency room vital examination on presentation revealed a temperature of 98.3 pulse 89 respiration 20 blood pressure 115/73 pulse ox 95% on 5 L nasal cannula Laboratory data revealed a white blood count of 11.4 hemoglobin 12.7 platelet count 190 BUN 20 creatinine 0.64 influenza A and B RSV and COVID-19 PCR were all negative Testing in the emergency room revealed chest x-ray revealed pulmonary congestion suggestive of congestive heart failure exacerbation and a new 4.7 masslike consolidation in the right mid to lower lung Patient was admitted to medical floor for further evaluation and treatment Past medical history is significant for history of hypertension, history of hyperlipidemia, history of hypothyroidism, history of diabetes mellitus, history of COPD, history of congestive heart failure, history of morbid obesity, history of recurrent episodes of bilateral lower extremity cellulitis. On review of systems patient is alert and oriented x 3 in no apparent distress, she is complaining of generalized body ache, she is complaining of shortness of breath, otherwise she denies any complaints there is no fever or chills no headache or dizziness no chest pain, she has occasional cough no nausea or vomiting no abdominal pain no diarrhea and no urinary symptoms. On 07/05/2024 patient is alert and oriented x 3. Awaiting consulting providers input. Patient remains on IV Lasix. CT of the chest has been completed. At this time patient denies chest pain. Patient denies nausea vomiting or diarrhea. Patient denies any urinary burning or frequency On 07/06/2024 patient is alert and oriented x 3. Patient remains on IV Lasix and IV antibiotics. Cardiology pulmonary and infectious disease services are following. Current vital signs temp 98.1, heart rate 67, respiratory rate 15, blood pressure 96/53 with a pulse ox of 93% on 4 L. Patient denies chest pain or shortness of breath. Patient denies nausea vomiting or diarrhea. Patient denies any urinary burning or frequency. On 07/07/2024 patient was seen and examined on the telemetry floor she is somnolent arousable in no apparent distress, yesterday patient was agitated and aggressive with medical staff, Seroquel was added to her medication regimen, however today she is more somnolent, Seroquel will be changed to as needed only. There is no fever or chills no headache or dizziness no chest pain patient still has shortness of breath with any activity and cough no nausea or vomiting no abdominal pain no diarrhea no urinary symptoms. On 07/08/2024 patient was seen and examined on the telemetry floor, she is so mnolent responsive in no apparent distress, currently she is maintained on BiPAP, she had episodes of agitation through the night, she was pulling off her IV in the BiPAP, she received 1 dose of IM Haldol, she is maintained on soft restraints at this time, her vital examination reveals a temperature of 99.8 pulse 109 respiration 22 pulse ox 95% on BiPAP FiO2 40% she is maintained on IV daptomycin infectious disease are following On 07/09/2024 patient was seen and examined on the telemetry floor, she is somnolent responsive in no apparent distress, she is still having episodes of agitation requiring as needed Seroquel use, otherwise she is improving gradually, there is no fever or chills no headache or dizziness no chest pain, she has shortness of breath with any activity, no nausea or vomiting no abdominal pain no diarrhea and no urinary symptoms, she remains on IV antibiotics, infectious disease are following, also cardiology and pulmonary are following On 07/10/2024 patient remains somnolent on BiPAP. Pulmonary and infectious disease services following. Patient remains on IV antibiotics. Patient remains on IV Diamox. Current vital signs temp 99.8, heart rate 78, respiratory rate 18, blood pressure 123/69 with a pulse ox of 96% on BiPAP with an FiO2 of 40. On 07/11/2024 patient was seen and examined on the medical floor, she is alert responsive in no apparent distress, she was maintained on BiPAP through the night, there is no fever or chills no headache or dizziness no chest pain no shortness of breath at rest, she has occasional cough and severe shortness of breath with any activity no nausea or vomiting no abdominal pain no diarrhea no urinary symptoms. On 07/12/2024 patient is alert but remains confused. Patient remains in the ICU. Patient was on BiPAP for 6 hours. Patient did require Precedex for increased agitation. Patient remains on IV cefepime and Diamox. Along with scheduled Bumex. Colace added for constipation. Patient denies chest pain. Patient denies nausea vomiting or diarrhea. Patient denies any urinary burning frequency On 07/13/2024 patient is more alert today. Per nursing staff plans for HANNA due to bacteremia. Current vital signs temp 99.0, heart rate 92, respiratory rate 25, blood pressure 125/69 with a pulse ox of 97% on 6 L. Patient denies chest pain. Patient denies nausea vomiting or diarrhea. Patient denies any urinary burning or frequency. Patient remains on Diamox and IV Maxipime. On 07/14/2024 patient was seen and examined on the telemetry floor, she is alert and oriented x 3 in no apparent distress, during the night patient required BiPAP, she had an episode of agitation and she received IM Haldol, yesterday e vening patient had an episode of atrial fibrillation with rapid ventricular response, she received IV Cardizem, and her rhythm converted back to normal sinus rhythm. Otherwise no issues since yesterday, patient denies any chest pain, there is no shortness of breath at rest, no fever or chills no headache or dizziness no palpitation, no nausea or vomiting no abdominal pain no diarrhea and no urinary symptoms. On 07/15/2024 patient is alert and oriented x 3. Patient's mentation improved. Patient denies chest pain or shortness of breath. Patient denies nausea vomiting or diarrhea. Patient denies any urinary burning or frequency. Current vital signs temp 97.8, heart 94, respiratory 20, blood pressure 122/58 with a pulse ox of 93% on 3 L. Patient remains on daptomycin and gentamicin. On 07/16/2024 patient was seen and examined on the telemetry floor, she is alert and oriented x 3 in no apparent distress, there is no fever or chills no headache or dizziness, no chest pain, she has shortness of breath with any activity she has occasional cough no nausea or vomiting no abdominal pain no diarrhea no blood in the stool, no urinary symptoms. Rock catheter remains in, bilateral lower extremity wrapping and protective boots are on. Vital exam reveals a temperature of 98.1 pulse 86 respiration 18 blood pressure 113/74 pulse ox 98% on 6 L nasal cannula. White blood count is 9.0 hemoglobin 11.6 platelet count 246 sodium 135 potassium 4.0 chloride 98 CO2 34 BUN 22 creatinine 0.62 On 07/17/2024 patient currently resting comfortably on BiPAP. Neurology services have been consulted for altered mental status. Patient remains on IV daptomycin and gentamicin. Pulmonary, cardiology, infectious disease and neurology services consulted. Current vital signs temp 97.9, heart rate 79, respiratory rate 16, blood pressure 127/79 with pulse ox 98% on 6 L. On 07/18/2024 patient was seen and examined on the medical floor she is alert and oriented x 3 in no apparent distress she is maintained on oxygen 4 L nasal cannula there is no fever or chills no headache or dizziness no chest pain no shortness of breath at rest patient has shortness of breath with any activity no nausea or vomiting no abdominal pain no diarrhea and no urinary symptoms On 07/19/2024 patient is alert and oriented x 3. Patient currently on nasal cannula 5 L. Patient had HANNA done was negative. Per neurology note patient refusing head CT at this time. Will consult oncology services due to concerns of lung mass discharge planning to [facility]. Patient denies chest pain. Patient denies nausea vomiting or diarrhea. Patient denies any urinary burning or frequency On 07/20/2024 patient is alert and oriented x 3. MRI of the brain has been ordered per oncology services. Discharge planning to [facility]. Per ID recommendations for Zyvox for 10 days. Patient denies chest pain or shortness of breath. Patient denies nausea vomiting or diarrhea. Patient denies any urinary burning or frequency. 0.7, heart rate 80, respiratory rate 16, blood pressure 113/73 with pulse ox of 96% on 3 L Objective - Vital Signs Vital signs: Vital Signs Temp 97.7 F 07/20/24 11:05 Pulse 80 07/20/24 11:05 Resp 16 07/20/24 11:05 BP 113/73 07/20/24 11:05 Pulse Ox 95 07/20/24 03:26 FiO2 40 07/20/24 09:22 Intake & Output 07/19/24 07/20/24 07/20/24 18:59 06:59 18:59 Intake Total 1950 20 10 Output Total 1300 2024 Balance 650 -2004 10 Weight 103.5 kg Intake: IV 10 20 10 Invasive Line 10 10 20 10 Oral 1940 Output: Urine 1300 2024 Uretheral (Rock) 675 Stool 0 0 Other: Voiding Method Indwelling Catheter Indwelling Catheter Indwelling Catheter - Exam In general patient is alert and oriented x 3 in no distress HEENT head normocephalic and atraumatic Neck is supple no JVD no goiter no lymphadenopathy no carotid bruit Chest examination reveals a scattered crackles bilaterally no wheezing Cardiac exam reveals regular heart sounds S1 and S2 no gallops no murmurs Abdomen is soft nontender no organomegaly with normal bowel sounds Extremity exam reveals 3+ edema with erythema and chronic stasis changes, multiple small ulceration with scabbing no cyanosis or clubbing Neurological examination reveals no gross focal deficits - Labs CBC & Chem 7: 07/20/24 05:53 07/20/24 05:53 Labs: Abnormal Lab Results - Last 24 Hours (Table) 07/19/24 07/19/24 07/20/24 Range/Units 16:39 20:06 05:53 RBC 3.79 L (4.10-5.20) 10*6/uL Hgb 11.0 L (12.0-15.0) g/dL Hct 36.7 L (37.2-46.3) % MCHC 30.0 L (32.0-37.0) g/dL Sodium (137-145) mmol/L Chloride (98-107) mmol/L Carbon Dioxide (22-30) mmol/L BUN (7-17) mg/dL Glucose (74-99) mg/dL POC Glucose (mg/dL) 213 H 150 H (70-110) mg/dL AST (14-36) U/L ALT (4-34) U/L Total Protein (6.3-8.2) g/dL Albumin (3.5-5.0) g/dL 07/20/24 07/20/24 07/20/24 Range/Units 05:53 05:59 11:34 RBC (4.10-5.20) 10*6/uL Hgb (12.0-15.0) g/dL Hct (37.2-46.3) % MCHC (32.0-37.0) g/dL Sodium 133 L (137-145) mmol/L Chloride 87 L (98-107) mmol/L Carbon Dioxide 38 H (22-30) mmol/L BUN 30 H (7-17) mg/dL Glucose 171 H (74-99) mg/dL POC Glucose (mg/dL) 214 H 167 H (70-110) mg/dL AST 56 H (14-36) U/L ALT 35 H (4-34) U/L Total Protein 5.8 L (6.3-8.2) g/dL Albumin 3.1 L (3.5-5.0) g/dL Microbiology - Last 24 Hours (Table) 07/14/24 05:56 Blood Culture - Final Blood Assessment and Plan Plan: Acute congestive heart failure exacerbation Bacteremia New 4.7 cm masslike consolidation opacity in the right midlung Fall at home, with generalized body pain Bilateral lower extremity cellulitis, with multiple open ulcers Underlying history of hypertension Underlying history of hyperlipidemia Underlying history of diabetes mellitus Underlying history of COPD Underlying history of morbid obesity At this time patient was admitted to telemetry floor Patient has been transferred out of the intensive care unit Remains on IV antibiotics Continue BiPAP Consultation for pulmonary, infectious disease, and cardiology initiated Will follow closely
--- NOTE | 2024-07-20 14:26 | P.PN ---
Subjective Progress Note Date: 07/20/24 Principal diagnosis: Acute on chronic hypoxic respiratory failure and enterococcal sepsis This is a 73-year-old obese white female today seen in room 620. She came to the hospital with 1 day of shortness of breath, leg swelling, and cough. Her viral screen was negative. The patient has smoked for about 40 to 45 years. The only medicine she takes at home for her breathing is albuterol. Her procalcitonin level was 0.05. Chest x-ray showed some fluid overload, but also showed a possible mass in the right midlung, which could be either an actual mass or pseudotumor. A CT scan was ordered. It does show a 7.1 lobulated mass in the right lung. A PET scan was recommended. Currently, the patient is on 4 L of oxygen. No fluids are ordered. She is getting Lasix 40 mg every 8 hours. She also has an updraft ordered. White count 1.22, hemoglobin 11.3, macro 39.1, platelet count 185,000. Coags are normal. Sodium 141, potassium 4.3, chlorides 94, CO2 39, BUN 17.5, creatinine 0.9. Glucose 169. Calcium 8.6. Troponin was negative. N-terminal proBNP was elevated at 1830. Procalcitonin level was 0.05. Urine is negative. Viral screen was negative. Chest x-ray was consistent with fluid overload/CHF. Cardiology has seen the patient. The patient is seen today July 06, 2024 in follow-up on the regular medical floor. She is currently sitting up in bed. Awake and alert in no acute distress. She is maintaining O2 saturations in the 90s on 4 L/min per nasal cannula. She is receiving normal saline at 75 mL/h. White count 10.2. Hemoglobin 11.5. Platelets 198. Sodium 134. Potassium 4.5. Bicarb 38. BUN 29. Creatinine 0.83. Glucose 132. She remains on cefazolin. IV diuretics were discontinued. The patient is seen today July 07, 2024 in follow-up on the regular medical floor. She is currently resting comfortably in bed. Awake and alert in no acute distress. Maintaining good O2 saturations in the 90s on 5 L/min per nasal cannula. She is receiving normal saline at 50 mL/h. Her blood culture isshowing Enterococcus faecium. She is currently on daptomycin. Remains on bronchodilators. 1.2. Platelets 204. Sodium 144. Potassium 5.2. Bicarb 39. BUN 24. Creatinine 0.6. Glucose 153. Progress note dated July 08, 2024. The patient was moved down to the third floor, sometime yesterday or last night, for respiratory distress. I was never notified. The patient was seen today in room 360. She was on BiPAP, with settings of 12/5, and 40%. She was getting saline at 20 cc an hour. A blood gas was done on 44% oxygen showing a pO2 of 84, pCO2 of 91, pH is 7.29. Her blood cultures were positive for Enterococcus faecium. For that reason, she is on daptomycin. Current labs include a white count 7.8, hemoglobin 11.2, hematocrit 38.3, and a platelet count of 173,000. Sodium 139, potassium 4.5, chlorides 93, CO2 40, BUN 29, and creatinine 0.58. Glucose 74. Albumin is 3. Chest x-ray done yesterday, continues to show me in addition, there is diffuse changes, consistent with fluid overload and/or pneumonia. On 07/09/2024, the patient is being seen for a follow-up. Morbidly obese female patient was hospitalized for an acute on top of chronic hypoxic and hypercapnic respiratory failure. At the time of my evaluation this morning, the patient was started on a BiPAP at a pressure of 12/5 with an FiO2 of 40%. I took the patient off the BiPAP and put her on 4 L of oxygen by nasal cannula. Subsequent blood gases showed a pH of 7.34 with pCO2 of 86 and pO2 162. The patient has a mass like consolidation involving the right lower lobe. This could be pneumonia versus malignancy. At the same time, the patient is septic and the source of sepsis is a wound infection and the patient has active wet wound with purulent foul-smelling material covering the wound base and the right lower extremity above the lateral malleolus. Blood culture was positive for Enterococcus faecalis and based on that, the patient has been maintained on a combination of daptomycin and the patient is also on IV cefepime. Repeat chest x-ray was done and it showed a right lower lobe masslike opacity that remains unchanged compared to the previous x-rays in addition to mild cardiomegaly and pulm vessel congestion. The patient is sitting daily diuresis. The patient is producing excellent urine output and the fluid balance is -2.6 L over the past 24 hours. The white cell count is 7.1 with a heme of 10.6 and a platelet count of 151. Serum bicarb is 44 with BUN of 29 and a creatinine of 0.5. Sodium is at 140. She remains encephalopathic. She is arousable. She has tolerated the BiPAP reasonably well. On 07/10/2024, the patient is being seen for a follow-up. The patient remains on BiPAP and she seems to be tolerating the BiPAP reasonably well. This morning, the patient is on a BiPAP at a pressure of 12 over 5 cm of water with an FiO2 of 40% which is essentially the same setting as yesterday. She is arousable and she is able to communicate. At times confused. I took this patient off the BiPAP and put her on oxygen at 5 L/min nasal cannula. Subsequent blood gases showed a pH of 7.33 with a pCO2 of 78 and pO2 of 129. She is still lethargic and weak. Denies having any chest pain. She does have swelling in lower extremities bilaterally. She was given IV Lasix yesterday and her fluid balance is -3.1 L over the past 24 hours. She remains on Bumex 1 mg p.o. daily. She is also on Diamox 5 mg IV every 12 hours. The blood work from today shows a BUN of 24 with a creatinine of 0.7. Serum bicarb is at 36 and a sodium levels at 140. The white cell count is 7.9 with a hemoglobin of 11.4 and a platelet count of 164. The follow-up chest x-ray from yesterday was still showing a masslike consolidation/opacity in the right midlung/right lower lobe area. The patient also has some ongoing mild cardiomegaly. Wound care is being applied. ID is on the case. The patient remains on daptomycin and IV cefepime. On 07/11/2024, the patient is being seen for a follow-up. Remains quite lethargic and continues to have diminished level of consciousness. She remains on a BiPAP at her same setting of 12 over 5 cm of water. Repeat blood gas was done with an FiO2 40% showed a pH of 7.36 with a pCO2 of 71 and pO2 of 83. The patient is however arousable. She continues to be treated for a extensive right lower extremity wound infection with septicemia the patient had Enterococcus faecium and she remains essentially same antibiotic coverage including combination of cefepime and daptomycin. On today's blood work, the white cell count is 7.4 with a hemoglobin 10.9 and a platelet count of 174. The sodium level is at 139, BUN is 28 with a creatinine of 0.6. Potassium is at 4 and a serum bicarb is at 39. She is on Diamox 500 mg IV every 12 hours. She is on Bumex 1 mg p.o. daily. Rest of the medications are essentially unchanged. No significant agitation. 07/12/2024, the patient is being seen for a follow-up. On today's evaluation, the patient is arousable and she is able to communicate. She does have some background encephalopathy and confusion. She is complaining of pain involving lower extremities the patient has extensive wounds in lower extremities bilaterally involving the lateral aspect of the lower extremities bilaterally above the ankle. The area was inspected today and the wound base is erythematous and less purulence. No foul drainage at this point in time. The patient was taken off the BiPAP this morning. The patient was placed on oxygen and she is currently at 60s over the nasal cannula. Repeat blood gas was done and the patient showed a pH of 7.35 with a pCO2 of 65 and pO2 of 52 and this was on FiO2 of 36%. The follow-up chest x-ray from today shows a masslike consolidation in the right lung which seems to be less dense and more hazy. There is also cardiomegaly and pulm vascular congestion with mild pulm vascular congestion. The white cell count is at 9, hemoglobin is 10.7 and a platelet count of 176. BUN is 34 with a creatinine of 0.6 and a sodium level is at 137. The patient is receiving Diamox to 50 mg p.o. daily. The patient remains on Las ix 40 mg IV push every 12 hours. The fluid balance is -1.7 L over the past 24 hours. The patient remains on broad-spectrum antibiotics. The patient is currently on cefepime and daptomycin. Rest of the medications remain unchanged. She remains on Aldactone 25 mg p.o. daily and trazodone at bedtime 50 mg nightly. 07/13/2024, the patient is being seen for a follow-up. Patient is awake and alert and communicating. Denies having any significant complaints other than pain in her back and lower extremities bilaterally. Neurologically, much more awake and alert and communicating. No signs of any CO2 narcosis. Remains on IV Lasix. Remains on Aldactone and Diamox. Most recent blood gas from yesterday showed marked improvement respiratory status. Current serum bicarb level is at 32, sodium is at 135 with a potassium level 3.9. The white cell count of 3.5 with a hemoglobin of 11 and a platelet count of 172. She is utilizing the BiPAP only overnight. Patient has adequate urine output. Denies having any other complaints. Tolerating the oral intake. No reported aspiration. Chest x-ray from yesterday still showing cardiomegaly and pulm vessel congestion in addition to a vague right midlung opacity that is being followed up by serial chest x- rays. She remains on a combination of cefepime and daptomycin. ID is on the case. She is still on a combination of Desyrel and Seroquel. 07/14/2024, the patient is being seen for a follow-up. Overnight, the patient was utilizing her BiPAP at a pressure of 12 over 5 cm of water. This morning, the patient is still on a BiPAP. She is arousable and awake. No significant events overnight. No chest pain. No focal neurological deficits. Remains on the same regimen of antibiotics and the patient remains on daptomycin. ID is on the case. She remains on diuretics. She is on IV Lasix 40 mg every 12 hours and Aldactone 25 mg p.o. daily. She is also on Diamox to 50 mg p.o. on a daily basis. Sodium levels at 132, potassium level is at 4.1, BUN 32 with a creatinine 0.8. The white cell count of 10.9 with a hemoglobin 12 and a platelet count of 206. She was transferred out of the intensive care unit yesterday. No fever. No chills. She is still undergoing wound care to her lower extremity wounds and ID is on the case. 07/15/2024, the patient is being seen for a follow-up. She did encounter some episodes of confusion yesterday. This morning she is on a BiPAP and I took her off the BiPAP and put her on 3 L of oxygen by nasal cannula. She seems to be much more appropriate. She remains on IV Lasix. She is also on Aldactone. Fluid balance is -1.7 L over the past 24 hours. No specific complaints. Antibiotics remain daptomycin. The white cell count is at 8.3, hemoglobin is 10 and platelet count of 206. BUN is at 30 with a creatinine of 0.600 serum bicarb level is at 37. No new complaints otherwise for now. Patient was seen today on 07/16/2024, patient was seen on follow-up, seems to be about the same, she is not confused today, she is intermittently on BiPAP, during my evaluation she was on 2 L nasal cannula, seems to be very appropriate, remains on diuretics including Lasix and Aldactone. She had a significant negative fluid balance over the last 24 hours. Remains on daptomycin for enterococcal infection. WBC count is 9 hemoglobin 11.6, basic metabolic profile is normal ABG from yesterday was noted and it showed a pO2 of 120 pCO2 73 pH of 7.33. Her chest x-ray today continues to show evidence of congestive heart failure with cardiomegaly and small bilateral pleural effusions there is cierra dence of right midlung mass highly suggestive of malignancy needs outpatient follow-up and possible bronc and biopsy Seen today on 07/17/2024, patient is feeling much better today compared to the prior days. Breathing easier, less shortness of breath, her mentation even seems to be improving. Remains on daptomycin for her enterococcal infection, she is on 3 L nasal cannula, remains on diuretics including Lasix and Aldactone. Reviewed her previous CT of the chest, patient does have a lung mass suspicious for bronchogenic carcinoma however this will need outpatient follow-up. WBC count is 8.5 hemoglobin is 10.6 electrolytes are normal renal profile is normal bicarb is 39 Seen today on 07/18/2024, patient is feeling better today, she has good days and bad days but overall she is doing well, remains on antibiotics, remains on 5 L nasal cannula, O2 saturation is 100%. WBC count is 8.8 hemoglobin is 11 basic metabolic profile is normal bicarb is 40 renal profile is normal. Patient was seen today , patient is about the same, steadily improving, remains on antibiotics as per infectious disease on the case. Remains on 5 L nasal cannula and she has O2 saturation in the high 90s. Denies shortness of breath denies any cough or wheezing. WBC count is 7.56 hemoglobin 10.7 electr olytes are normal bicarb is 14 BUN is 30 creatinine 1.06, remains on diuretics including Bumex 1 mg twice daily remains on metoprolol and Aldactone she is also on Eliquis. For paroxysmal atrial fibrillation. Seen today on 07/20/2024, clinically the patient is about the same, pulmonary knight about the same, remains on antibiotics for her sepsis and bacteremia as per infectious disease remains on diuretics remains on bronchodilators, overall the patient is steadily improving. Patient will need final clearance for discharge by infectious disease WBC is 7.7 hemoglobin is 11 electrolytes abnormal renal profile is normal reviewed the note from infectious disease, recommending patient to be switched to Zyvox 600 mg twice daily as of 07/18 and plan is to continue that for 1 week / 10 days of antibiotics on discharge. Objective - Vital Signs Vital signs: Vital Signs Temp 97.7 F 07/20/24 11:05 Pulse 80 07/20/24 11:05 Resp 16 07/20/24 11:05 BP 113/73 07/20/24 11:05 Pulse Ox 95 07/20/24 03:26 FiO2 40 07/20/24 09:22 Intake & Output 07/19/24 07/20/24 07/20/24 18:59 06:59 18:59 Intake Total 1950 20 20 Output Total 1300 2024 800 Balance 650 Weight 103.5 kg 103.5 kg Intake: IV 10 20 20 Invasive Line 10 10 20 20 Oral 1940 Output: Urine 1300 2024 800 Uretheral (Rock) 675 Stool 0 0 Other: Voiding Method Indwelling Catheter Indwelling Catheter Indwelling Catheter # Bowel Movements 0 - Exam GENERAL EXAM: 73-year-old female in no distress on 5 L nasal cannula O2 sat is 99% HEAD: Normocephalic. EYES: Normal reaction of pupils, equal size. NOSE: Clear with pink turbinates. THROAT: No erythema or exudates. NECK: No masses, no JVD. CHEST: No chest wall deformity. LUNGS: Equal air entry with no crackles, wheeze, rhonchi or dullness. CVS: S1 and S2 normal with no audible murmur, regular rhythm. ABDOMEN: No hepatosplenomegaly, normal bowel sounds, no guarding or rigidity. SKIN: No rashes. Chronic venous stasis of the lower extremities. Purulent bilateral lower extremity ulcer with purulent material covering the base of the ulcer on the right lower extremity and stage IV heel ulcer in the right foot. CENTRAL NERVOUS SYSTEM: Alert oriented x 3 no gross focal deficit EXTREMITIES: Changes of chronic venous stasis. There is no peripheral edema. No clubbing, no cyanosis. Peripheral pulses are intact. - Labs CBC & Chem 7: 07/20/24 05:53 07/20/24 05:53 Labs: Abnormal Lab Results - Last 24 Hours (Table) 07/19/24 07/19/24 07/20/24 Range/Units 16:39 20:06 05:53 RBC 3.79 L (4.10-5.20) 10*6/uL Hgb 11.0 L (12.0-15.0) g/dL Hct 36.7 L (37.2-46.3) % MCHC 30.0 L (32.0-37.0) g/dL Sodium (137-145) mmol/L Chloride (98-107) mmol/L Carbon Dioxide (22-30) mmol/L BUN (7-17) mg/dL Glucose (74-99) mg/dL POC Glucose (mg/dL) 213 H 150 H (70-110) mg/dL AST (14-36) U/L ALT (4-34) U/L Total Protein (6.3-8.2) g/dL Albumin (3.5-5.0) g/dL 07/20/24 07/20/24 07/20/24 Range/Units 05:53 05:59 11:34 RBC (4.10-5.20) 10*6/uL Hgb (12.0-15.0) g/dL Hct (37.2-46.3) % MCHC (32.0-37.0) g/dL Sodium 133 L (137-145) mmol/L Chloride 87 L (98-107) mmol/L Carbon Dioxide 38 H (22-30) mmol/L BUN 30 H (7-17) mg/dL Glucose 171 H (74-99) mg/dL POC Glucose (mg/dL) 214 H 167 H (70-110) mg/dL AST 56 H (14-36) U/L ALT 35 H (4-34) U/L Total Protein 5.8 L (6.3-8.2) g/dL Albumin 3.1 L (3.5-5.0) g/dL Microbiology - Last 24 Hours (Table) 07/14/24 05:56 Blood Culture - Final Blood Assessment and Plan Assessment: Impression: Acute on chronic hypoxic and hypercapnic respiratory failure patient has a combination of COPD and congestive heart failure/diastolic congestive heart failure, patient was noted to have preserved LV function Severe pulmonary hypertension Mild aortic stenosis sepsis secondary to enterococcal septicemia with negative blood cultures patient is on daptomycin Morbid obesity Altered mental status/encephalopathy with CO2 narcosis 7.1 cm right mid lung mass, needs outpatient follow-up with Dr. Sotkes and will eventually require a PET scan on outpatient basis. Type 2 diabetes Dyslipidemia Hypothyroidism Recommendation: Continue oxygen and titrate accordingly Continue bronchodilators Continue diuretics Patient will need outpatient follow-up with Dr. Stokes regarding her questionable lung mass, will need outpatient PET scan and possible biopsy if the PET scan is positive. Will clear the patient for discharge if cleared by other consultants Will continue to follow Time with Patient: Less than 30 (1111)
--- NOTE | 2024-07-20 15:42 | P.PN ---
Subjective Progress Note Date: 07/20/24 Principal diagnosis: Reason for follow-up with lower extremity ulcer and cellulitis Patient is a 73-year-old female with a past medical history significant for COPD heart failure diabetes mellitus reflux hyperlipidemia presenting to the hospital for evaluation of a fall that happened the day of presentation to the hospital patient accidentally rolled off the couch onto the floor and was too weak to get herself up, noticed to have bilateral extremity ulcer and cellulitis prompted this consultation. On today's evaluation that is 07/20/2024, the patient continues to be afebrile, the patient is on 3 L nasal oxygen and breathing comfortably, the Pt denies having any chest pain or cough, the patient denies having any abdominal pain no vomiting or any diarrhea. Patient white count 7.74, creatinine 0.86 blood culture repeat negative Objective - Vital Signs Vital signs: Vital Signs Temp 97.7 F 07/20/24 11:05 Pulse 80 07/20/24 11:05 Resp 16 07/20/24 11:05 BP 113/73 07/20/24 11:05 Pulse Ox 95 07/20/24 03:26 FiO2 40 07/20/24 09:22 Intake & Output 07/19/24 07/20/24 07/20/24 18:59 06:59 18:59 Intake Total 1950 20 10 Output Total 1300 2024 800 Balance 650 [id number] Weight 103.5 kg 103.5 kg Intake: IV 10 20 10 Invasive Line 10 10 20 10 Oral 1940 Output: Urine 1300 2024 800 Uretheral (Rock) 675 Stool 0 0 Other: Voiding Method Indwelling Catheter Indwelling Catheter Indwelling Catheter # Bowel Movements 0 - Exam GENERAL DESCRIPTION: An elderly female lying in bed in no distress RESPIRATORY SYSTEM: Unlabored breathing , decreased breath sounds at bases HEART: S1 S2 regular rate and rhythm , ABDOMEN: Soft , no tenderness EXTREMITIES: Bilateral lower extremity currently wrapped with an Blue wrap no drainage - Labs CBC & Chem 7: 07/20/24 05:53 07/20/24 05:53 Labs: Abnormal Lab Results - Last 24 Hours (Table) 07/19/24 07/19/24 07/20/24 Range/Units 16:39 20:06 05:53 RBC 3.79 L (4.10-5.20) 10*6/uL Hgb 11.0 L (12.0-15.0) g/dL Hct 36.7 L (37.2-46.3) % MCHC 30.0 L (32.0-37.0) g/dL Sodium (137-145) mmol/L Chloride (98-107) mmol/L Carbon Dioxide (22-30) mmol/L BUN (7-17) mg/dL Glucose (74-99) mg/dL POC Glucose (mg/dL) 213 H 150 H (70-110) mg/dL AST (14-36) U/L ALT (4-34) U/L Total Protein (6.3-8.2) g/dL Albumin (3.5-5.0) g/dL 07/20/24 07/20/24 07/20/24 Range/Units 05:53 05:59 11:34 RBC (4.10-5.20) 10*6/uL Hgb (12.0-15.0) g/dL Hct (37.2-46.3) % MCHC (32.0-37.0) g/dL Sodium 133 L (137-145) mmol/L Chloride 87 L (98-107) mmol/L Carbon Dioxide 38 H (22-30) mmol/L BUN 30 H (7-17) mg/dL Glucose 171 H (74-99) mg/dL POC Glucose (mg/dL) 214 H 167 H (70-110) mg/dL AST 56 H (14-36) U/L ALT 35 H (4-34) U/L Total Protein 5.8 L (6.3-8.2) g/dL Albumin 3.1 L (3.5-5.0) g/dL Microbiology - Last 24 Hours (Table) 07/14/24 05:56 Blood Culture - Final Blood Assessment and Plan (1) Leg ulcer, left Current Visit: Yes Status: Acute Code(s): L97.929 - NON-PRS CHRONIC ULC UNSP PRT OF L LOW LEG W UNSP SEVERITY SNOMED Code(s): 98548040 (2) Left leg cellulitis Current Visit: Yes Status: Acute Code(s): L03.116 - CELLULITIS OF LEFT LOWER LIMB SNOMED Code(s): 75926716498364030 (3) Penicillin allergy Current Visit: Yes Status: Acute Code(s): Z88.0 - ALLERGY STATUS TO PENICILLIN SNOMED Code(s): 08664237 (4) Bacteremia Current Visit: Yes Status: Acute Code(s): R78.81 - BACTEREMIA SNOMED Code(s): 5358096 Plan: 1patient with diffuse swelling of bilateral lower extremity with superficial solution to the left leg likely venous stasis ulcer with secondary cellulitis likely from gram-positive skin neida. 2patient with a penicillin allergy that will limit the number of antibiotics safe to use. 3local wound care to the left leg with dry Aquacel dressing and Blue wrap to keep the swelling down, and apply Santyl to the wound to the right heel change daily. 4patient did have resolution of the fever and white count is normal however the patient blood culture repeat came back positive highly clinically suspicious for possible endovascular source such as endocarditis 5patient CT of the abdominal pelvis did not show any acute findings UA was negative, patient did have a HANNA that was negative for any vegetation 7patient currently being treated with Zyvox 600 mg twice daily plan is for 10 days of Zyvox on discharge Dictation was produced using [employer] dictation software. please excuse any grammatical, word or spelling errors. Time with Patient: Less than 30
[2024-07-20 16:23] LABS: Glucose,Whole Blood 163 mg/dL (70-110)
[2024-07-20] MEDS: HYDROcodone/APAP 5-325MG 1 EACH TAB PO PRN (16:54)
[2024-07-20 20:05] LABS: Glucose,Whole Blood 202 mg/dL (70-110)
--- NOTE | 2024-07-20 20:48 | P.PN ---
Subjective Progress Note Date: 07/20/24 No acute events overnight. Pt reporting weakness and fatigue Objective - Vital Signs Vital signs: Vital Signs Temp 97.9 F 07/20/24 16:55 Pulse 78 07/20/24 16:55 Resp 18 07/20/24 16:55 BP 121/79 07/20/24 16:55 Pulse Ox 95 07/20/24 16:55 FiO2 40 07/20/24 09:22 Intake & Output 07/19/24 07/20/24 07/20/24 18:59 06:59 18:59 Intake Total 1950 20 20 Output Total 1300 2024 800 Balance 650 2004 780 Weight 103.5 kg 103.5 kg Intake: IV 10 20 20 Invasive Line 10 10 20 20 Oral 1940 Output: Urine 1300 2024 800 Uretheral (Rock) 675 Stool 0 0 Other: Voiding Method Indwelling Catheter Indwelling Catheter Indwelling Catheter # Bowel Movements 0 - Labs CBC & Chem 7: 07/20/24 05:53 07/20/24 05:53 Labs: Abnormal Lab Results - Last 24 Hours (Table) 07/19/24 07/20/24 07/20/24 Range/Units 20:06 05:53 05:53 RBC 3.79 L (4.10-5.20) 10*6/uL Hgb 11.0 L (12.0-15.0) g/dL Hct 36.7 L (37.2-46.3) % MCHC 30.0 L (32.0-37.0) g/dL Sodium 133 L (137-145) mmol/L Chloride 87 L (98-107) mmol/L Carbon Dioxide 38 H (22-30) mmol/L BUN 30 H (7-17) mg/dL Glucose 171 H (74-99) mg/dL POC Glucose (mg/dL) 150 H (70-110) mg/dL AST 56 H (14-36) U/L ALT 35 H (4-34) U/L Total Protein 5.8 L (6.3-8.2) g/dL Albumin 3.1 L (3.5-5.0) g/dL 07/20/24 07/20/24 07/20/24 Range/Units 05:59 11:34 16:22 RBC (4.10-5.20) 10*6/uL Hgb (12.0-15.0) g/dL Hct (37.2-46.3) % MCHC (32.0-37.0) g/dL Sodium (137-145) mmol/L Chloride (98-107) mmol/L Carbon Dioxide (22-30) mmol/L BUN (7-17) mg/dL Glucose (74-99) mg/dL POC Glucose (mg/dL) 214 H 167 H 163 H (70-110) mg/dL AST (14-36) U/L ALT (4-34) U/L Total Protein (6.3-8.2) g/dL Albumin (3.5-5.0) g/dL Assessment and Plan (1) Acute exacerbation of congestive heart failure Current Visit: Yes Status: Acute Code(s): I50.9 - HEART FAILURE, UNSPECIFIED SNOMED Code(s): 488824269 (2) Bacteremia Current Visit: Yes Status: Acute Code(s): R78.81 - BACTEREMIA SNOMED Code(s): 5004477 (3) Lung mass Current Visit: Yes Status: Acute Priority: High Code(s): R91.8 - OTHER N ONSPECIFIC ABNORMAL FINDING OF LUNG FIELD SNOMED Code(s): 167819287 Plan: Lung mass -CT chest with contrast performed 07/05/2024 reports lobulated anterior right upper/middle lobe, peripheral pulmonary mass measuring 7.1 x 3.8 cm. Few small mediastinal lymph nodes. No osseous abnormalities. CT AP without contrast showed no acute abnormality in the pelvis or abdomen. - Findings and concerns for malignancy was discussed with patient -Pulmonary notes reviewed. Concerns for malignancy versus a masslike pneumonia that needs to be followed up. Will plan for outpt f/u for bronch/biopsy -MRI of the brain has been ordered because of patient's confusion - On exam the left supraclavicular area was swollen, not certain if there was an underlying mass so, ultrasound of the area has been ordered to assess. US showing abundance of lipid tissue, no LAD noted - We will follow along with you and pending plans for further workup once patient's acute condition is adequately treated attests: I have performed H&P and developed impression and plan of care for patient, discussed with dictator. I agree with dictated noted, documented as a scribe
[2024-07-21 06:11] LABS: Glucose,Whole Blood 168 mg/dL (70-110)
[2024-07-21 06:43] LABS: Basophils # (A) 0.04 10*3/uL (0.00-0.10); Basophils % (A) 0.5 %; Eosinophils # (A) 0.16 10*3/uL (0.04-0.35); Eosinophils % (A) 2.2 %; HCT 35.1 % (37.2-46.3); HGB 10.2 g/dL (12.0-15.0); Lymphocytes # (A) 1.46 10*3/uL (0.90-5.00); Lymphocytes % (A) 19.8 %; MCH 28.4 pg (27.0-32.0); MCHC 29.1 g/dL (32.0-37.0); MCV 97.8 fL (80.0-97.0); Mean Platelet Volume 10.7 fL (9.5-12.2); Monocytes % (A) 8.1 %; Neutrophils # (A) 5.07 10*3/uL (1.80-7.70); Neutrophils % (A) 68.9 %; Platelet Count 280 10*3/uL (140-440); RBC 3.59 10*6/uL (4.10-5.20); RDW 14.5 % (11.5-14.5); WBC 7.37 10*3/uL (4.50-10.00)
[2024-07-21 07:13] LABS: ALT 30 U/L (4-34); AST 41 U/L (14-36); African American GFR (CKD) 72 (>60 ml/min/1.73 sqM); Albumin 3.1 g/dL (3.5-5.0); Alkaline Phosphatase 79 U/L (38-126); Anion Gap 6 mmol/L; Blood Urea Nitrogen 30 mg/dL (7-17); Calcium 9.2 mg/dL (8.4-10.2); Chloride 89 mmol/L (98-107); Glucose 157 mg/dL (74-99); Non-African American GFR(CKD) 63 (>60 ml/min/1.73 sqM); Potassium 4.1 mmol/L (3.5-5.1); Sodium 135 mmol/L (137-145); Total Bilirubin 0.4 mg/dL (0.2-1.3); Total Protein 5.7 g/dL (6.3-8.2)
[2024-07-21 07:34] LABS: Carbon Dioxide 40 mmol/L (22-30)
[2024-07-21 11:18] LABS: Glucose,Whole Blood 305 mg/dL (70-110)
[2024-07-21] MEDS: LORazepam 1 MG/0.5 ML VIAL IV PRN (12:36)
--- NOTE | 2024-07-21 12:40 | P.PN ---
Subjective Progress Note Date: 07/21/24 Ajay Robertson, is a 73-year-old female who presented to [facility] emergency room with a chief complaint of worsening shortness of breath, additionally patient was found on the floor in her house, she stated that she fell while asleep and was not able to stand up. She was evaluated in the emergency room vital examination on presentation revealed a temperature of 98.3 pulse 89 respiration 20 blood pressure 115/73 pulse ox 95% on 5 L nasal cannula Laboratory data revealed a white blood count of 11.4 hemoglobin 12.7 platelet count 190 BUN 20 creatinine 0.64 influenza A and B RSV and COVID-19 PCR were all negative Testing in the emergency room revealed chest x-ray revealed pulmonary congestion suggestive of congestive heart failure exacerbation and a new 4.7 masslike consolidation in the right mid to lower lung Patient was admitted to medical floor for further evaluation and treatment Past medical history is significant for history of hypertension, history of hyperlipidemia, history of hypothyroidism, history of diabetes mellitus, history of COPD, history of congestive heart failure, history of morbid obesity, history of recurrent episodes of bilateral lower extremity cellulitis. On review of systems patient is alert and oriented x 3 in no apparent distress, she is complaining of generalized body ache, she is complaining of shortness of breath, otherwise she denies any complaints there is no fever or chills no headache or dizziness no chest pain, she has occasional cough no nausea or vomiting no abdominal pain no diarrhea and no urinary symptoms. On 07/05/2024 patient is alert and oriented x 3. Awaiting consulting providers input. Patient remains on IV Lasix. CT of the chest has been completed. At this time patient denies chest pain. Patient denies nausea vomiting or diarrhea. Patient denies any urinary burning or frequency On 07/06/2024 patient is alert and oriented x 3. Patient remains on IV Lasix and IV antibiotics. Cardiology pulmonary and infectious disease services are following. Current vital signs temp 98.1, heart rate 67, respiratory rate 15, blood pressure 96/53 with a pulse ox of 93% on 4 L. Patient denies chest pain or shortness of breath. Patient denies nausea vomiting or diarrhea. Patient denies any urinary burning or frequency. On 07/07/2024 patient was seen and examined on the telemetry floor she is somnolent arousable in no apparent distress, yesterday patient was agitated and aggressive with medical staff, Seroquel was added to her medication regimen, however today she is more somnolent, Seroquel will be changed to as needed only. There is no fever or chills no headache or dizziness no chest pain patient still has shortness of breath with any activity and cough no nausea or vomiting no abdominal pain no diarrhea no urinary symptoms. On 07/08/2024 patient was seen and examined on the telemetry floor, she is so mnolent responsive in no apparent distress, currently she is maintained on BiPAP, she had episodes of agitation through the night, she was pulling off her IV in the BiPAP, she received 1 dose of IM Haldol, she is maintained on soft restraints at this time, her vital examination reveals a temperature of 99.8 pulse 109 respiration 22 pulse ox 95% on BiPAP FiO2 40% she is maintained on IV daptomycin infectious disease are following On 07/09/2024 patient was seen and examined on the telemetry floor, she is somnolent responsive in no apparent distress, she is still having episodes of agitation requiring as needed Seroquel use, otherwise she is improving gradually, there is no fever or chills no headache or dizziness no chest pain, she has shortness of breath with any activity, no nausea or vomiting no abdominal pain no diarrhea and no urinary symptoms, she remains on IV antibiotics, infectious disease are following, also cardiology and pulmonary are following On 07/10/2024 patient remains somnolent on BiPAP. Pulmonary and infectious disease services following. Patient remains on IV antibiotics. Patient remains on IV Diamox. Current vital signs temp 99.8, heart rate 78, respiratory rate 18, blood pressure 123/69 with a pulse ox of 96% on BiPAP with an FiO2 of 40. On 07/11/2024 patient was seen and examined on the medical floor, she is alert responsive in no apparent distress, she was maintained on BiPAP through the night, there is no fever or chills no headache or dizziness no chest pain no shortness of breath at rest, she has occasional cough and severe shortness of breath with any activity no nausea or vomiting no abdominal pain no diarrhea no urinary symptoms. On 07/12/2024 patient is alert but remains confused. Patient remains in the ICU. Patient was on BiPAP for 6 hours. Patient did require Precedex for increased agitation. Patient remains on IV cefepime and Diamox. Along with scheduled Bumex. Colace added for constipation. Patient denies chest pain. Patient denies nausea vomiting or diarrhea. Patient denies any urinary burning frequency On 07/13/2024 patient is more alert today. Per nursing staff plans for HANNA due to bacteremia. Current vital signs temp 99.0, heart rate 92, respiratory rate 25, blood pressure 125/69 with a pulse ox of 97% on 6 L. Patient denies chest pain. Patient denies nausea vomiting or diarrhea. Patient denies any urinary burning or frequency. Patient remains on Diamox and IV Maxipime. On 07/14/2024 patient was seen and examined on the telemetry floor, she is alert and oriented x 3 in no apparent distress, during the night patient required BiPAP, she had an episode of agitation and she received IM Haldol, yesterday e vening patient had an episode of atrial fibrillation with rapid ventricular response, she received IV Cardizem, and her rhythm converted back to normal sinus rhythm. Otherwise no issues since yesterday, patient denies any chest pain, there is no shortness of breath at rest, no fever or chills no headache or dizziness no palpitation, no nausea or vomiting no abdominal pain no diarrhea and no urinary symptoms. On 07/15/2024 patient is alert and oriented x 3. Patient's mentation improved. Patient denies chest pain or shortness of breath. Patient denies nausea vomiting or diarrhea. Patient denies any urinary burning or frequency. Current vital signs temp 97.8, heart 94, respiratory 20, blood pressure 122/58 with a pulse ox of 93% on 3 L. Patient remains on daptomycin and gentamicin. On 07/16/2024 patient was seen and examined on the telemetry floor, she is alert and oriented x 3 in no apparent distress, there is no fever or chills no headache or dizziness, no chest pain, she has shortness of breath with any activity she has occasional cough no nausea or vomiting no abdominal pain no diarrhea no blood in the stool, no urinary symptoms. Rock catheter remains in, bilateral lower extremity wrapping and protective boots are on. Vital exam reveals a temperature of 98.1 pulse 86 respiration 18 blood pressure 113/74 pulse ox 98% on 6 L nasal cannula. White blood count is 9.0 hemoglobin 11.6 platelet count 246 sodium 135 potassium 4.0 chloride 98 CO2 34 BUN 22 creatinine 0.62 On 07/17/2024 patient currently resting comfortably on BiPAP. Neurology services have been consulted for altered mental status. Patient remains on IV daptomycin and gentamicin. Pulmonary, cardiology, infectious disease and neurology services consulted. Current vital signs temp 97.9, heart rate 79, respiratory rate 16, blood pressure 127/79 with pulse ox 98% on 6 L. On 07/18/2024 patient was seen and examined on the medical floor she is alert and oriented x 3 in no apparent distress she is maintained on oxygen 4 L nasal cannula there is no fever or chills no headache or dizziness no chest pain no shortness of breath at rest patient has shortness of breath with any activity no nausea or vomiting no abdominal pain no diarrhea and no urinary symptoms On 07/19/2024 patient is alert and oriented x 3. Patient currently on nasal cannula 5 L. Patient had HANNA done was negative. Per neurology note patient refusing head CT at this time. Will consult oncology services due to concerns of lung mass discharge planning to [facility]. Patient denies chest pain. Patient denies nausea vomiting or diarrhea. Patient denies any urinary burning or frequency On 07/20/2024 patient is alert and oriented x 3. MRI of the brain has been ordered per oncology services. Discharge planning to [facility]. Per ID recommendations for Zyvox for 10 days. Patient denies chest pain or shortness of breath. Patient denies nausea vomiting or diarrhea. Patient denies any urinary burning or frequency. 0.7, heart rate 80, respiratory rate 16, blood pressure 113/73 with pulse ox of 96% on 3 L On 07/21/2024 patient was seen and examined on the medical floor she is alert and oriented x 3 in no apparent distress, there is no fever or chills no headache or dizziness no chest pain no shortness of breath no cough no nausea or vomiting no abdominal pain no diarrhea and no urinary symptoms. Patient is scheduled for brain MRI today, will continue to follow closely Objective - Vital Signs Vital signs: Vital Signs Temp 97.8 F 07/21/24 08:38 Pulse 73 07/21/24 11:40 Resp 17 07/21/24 11:40 BP 120/76 07/21/24 11:40 Pulse Ox 95 07/21/24 11:40 FiO2 40 07/21/24 08:35 Intake & Output 07/20/24 07/21/24 07/21/24 18:59 06:59 18:59 Intake Total 20 20 10 Output Total 1300 625 600 Balance -1280 -802 -683 Weight 103.5 kg 98.5 kg Intake: IV 20 20 10 Invasive Line 10 20 20 10 Oral 0 Output: Urine 1300 625 600 Other: Voiding Method Indwelling Catheter Indwelling Catheter Indwelling Catheter # Bowel Movements 0 - Exam In general patient is alert and oriented x 3 in no distress HEENT head normocephalic and atraumatic Neck is supple no JVD no goiter no lymphadenopathy no carotid bruit Chest examination reveals a scattered crackles bilaterally no wheezing Cardiac exam reveals regular heart sounds S1 and S2 no gallops no murmurs Abdomen is soft nontender no organomegaly with normal bowel sounds Extremity exam reveals 3+ edema with erythema and chronic stasis changes, multiple small ulceration with scabbing no cyanosis or clubbing Neurological examination reveals no gross focal deficits - Labs CBC & Chem 7: 07/21/24 05:56 07/21/24 05:56 Labs: Abnormal Lab Results - Last 24 Hours (Table) 07/20/24 07/20/24 07/21/24 Range/Units 16:22 20:03 05:56 RBC 3.59 L (4.10-5.20) 10*6/uL Hgb 10.2 L (12.0-15.0) g/dL Hct 35.1 L (37.2-46.3) % MCV 97.8 H (80.0-97.0) fL MCHC 29.1 L (32.0-37.0) g/dL Sodium (137-145) mmol/L Chloride (98-107) mmol/L Carbon Dioxide (22-30) mmol/L BUN (7-17) mg/dL Glucose (74-99) mg/dL POC Glucose (mg/dL) 163 H 202 H (70-110) mg/dL AST (14-36) U/L Total Protein (6.3-8.2) g/dL Albumin (3.5-5.0) g/dL 07/21/24 07/21/24 07/21/24 Range/Units 05:56 06:09 11:16 RBC (4.10-5.20) 10*6/uL Hgb (12.0-15.0) g/dL Hct (37.2-46.3) % MCV (80.0-97.0) fL MCHC (32.0-37.0) g/dL Sodium 135 L (137-145) mmol/L Chloride 89 L (98-107) mmol/L Carbon Dioxide 40 H (22-30) mmol/L BUN 30 H (7-17) mg/dL Glucose 157 H (74-99) mg/dL POC Glucose (mg/dL) 168 H 305 H (70-110) mg/dL AST 41 H (14-36) U/L Total Protein 5.7 L (6.3-8.2) g/dL Albumin 3.1 L (3.5-5.0) g/dL Assessment and Plan Plan: Acute congestive heart failure exacerbation Bacteremia New 4.7 cm masslike consolidation opacity in the right midlung Fall at home, with generalized body pain Bilateral lower extremity cellulitis, with multiple open ulcers Underlying history of hypertension Underlying history of hyperlipidemia Underlying history of diabetes mellitus Underlying history of COPD Underlying history of morbid obesity At this time patient was admitted to telemetry floor Patient has been transferred out of the intensive care unit Remains on IV antibiotics Continue BiPAP Consultation for pulmonary, infectious disease, and cardiology initiated Will follow closely
--- NOTE | 2024-07-21 12:59 | P.PN ---
Subjective Progress Note Date: 07/21/24 Principal diagnosis: Acute on chronic hypoxic respiratory failure and enterococcal sepsis This is a 73-year-old obese white female today seen in room 620. She came to the hospital with 1 day of shortness of breath, leg swelling, and cough. Her viral screen was negative. The patient has smoked for about 40 to 45 years. The only medicine she takes at home for her breathing is albuterol. Her procalcitonin level was 0.05. Chest x-ray showed some fluid overload, but also showed a possible mass in the right midlung, which could be either an actual mass or pseudotumor. A CT scan was ordered. It does show a 7.1 lobulated mass in the right lung. A PET scan was recommended. Currently, the patient is on 4 L of oxygen. No fluids are ordered. She is getting Lasix 40 mg every 8 hours. She also has an updraft ordered. White count 1.22, hemoglobin 11.3, macro 39.1, platelet count 185,000. Coags are normal. Sodium 141, potassium 4.3, chlorides 94, CO2 39, BUN 17.5, creatinine 0.9. Glucose 169. Calcium 8.6. Troponin was negative. N-terminal proBNP was elevated at 1830. Procalcitonin level was 0.05. Urine is negative. Viral screen was negative. Chest x-ray was consistent with fluid overload/CHF. Cardiology has seen the patient. The patient is seen today July 06, 2024 in follow-up on the regular medical floor. She is currently sitting up in bed. Awake and alert in no acute distress. She is maintaining O2 saturations in the 90s on 4 L/min per nasal cannula. She is receiving normal saline at 75 mL/h. White count 10.2. Hemoglobin 11.5. Platelets 198. Sodium 134. Potassium 4.5. Bicarb 38. BUN 29. Creatinine 0.83. Glucose 132. She remains on cefazolin. IV diuretics were discontinued. The patient is seen today July 07, 2024 in follow-up on the regular medical floor. She is currently resting comfortably in bed. Awake and alert in no acute distress. Maintaining good O2 saturations in the 90s on 5 L/min per nasal cannula. She is receiving normal saline at 50 mL/h. Her blood culture isshowing Enterococcus faecium. She is currently on daptomycin. Remains on bronchodilators. 1.2. Platelets 204. Sodium 144. Potassium 5.2. Bicarb 39. BUN 24. Creatinine 0.6. Glucose 153. Progress note dated July 08, 2024. The patient was moved down to the third floor, sometime yesterday or last night, for respiratory distress. I was never notified. The patient was seen today in room 360. She was on BiPAP, with settings of 12/5, and 40%. She was getting saline at 20 cc an hour. A blood gas was done on 44% oxygen showing a pO2 of 84, pCO2 of 91, pH is 7.29. Her blood cultures were positive for Enterococcus faecium. For that reason, she is on daptomycin. Current labs include a white count 7.8, hemoglobin 11.2, hematocrit 38.3, and a platelet count of 173,000. Sodium 139, potassium 4.5, chlorides 93, CO2 40, BUN 29, and creatinine 0.58. Glucose 74. Albumin is 3. Chest x-ray done yesterday, continues to show me in addition, there is diffuse changes, consistent with fluid overload and/or pneumonia. On 07/09/2024, the patient is being seen for a follow-up. Morbidly obese female patient was hospitalized for an acute on top of chronic hypoxic and hypercapnic respiratory failure. At the time of my evaluation this morning, the patient was started on a BiPAP at a pressure of 12/5 with an FiO2 of 40%. I took the patient off the BiPAP and put her on 4 L of oxygen by nasal cannula. Subsequent blood gases showed a pH of 7.34 with pCO2 of 86 and pO2 162. The patient has a mass like consolidation involving the right lower lobe. This could be pneumonia versus malignancy. At the same time, the patient is septic and the source of sepsis is a wound infection and the patient has active wet wound with purulent foul-smelling material covering the wound base and the right lower extremity above the lateral malleolus. Blood culture was positive for Enterococcus faecalis and based on that, the patient has been maintained on a combination of daptomycin and the patient is also on IV cefepime. Repeat chest x-ray was done and it showed a right lower lobe masslike opacity that remains unchanged compared to the previous x-rays in addition to mild cardiomegaly and pulm vessel congestion. The patient is sitting daily diuresis. The patient is producing excellent urine output and the fluid balance is -2.6 L over the past 24 hours. The white cell count is 7.1 with a heme of 10.6 and a platelet count of 151. Serum bicarb is 44 with BUN of 29 and a creatinine of 0.5. Sodium is at 140. She remains encephalopathic. She is arousable. She has tolerated the BiPAP reasonably well. On 07/10/2024, the patient is being seen for a follow-up. The patient remains on BiPAP and she seems to be tolerating the BiPAP reasonably well. This morning, the patient is on a BiPAP at a pressure of 12 over 5 cm of water with an FiO2 of 40% which is essentially the same setting as yesterday. She is arousable and she is able to communicate. At times confused. I took this patient off the BiPAP and put her on oxygen at 5 L/min nasal cannula. Subsequent blood gases showed a pH of 7.33 with a pCO2 of 78 and pO2 of 129. She is still lethargic and weak. Denies having any chest pain. She does have swelling in lower extremities bilaterally. She was given IV Lasix yesterday and her fluid balance is -3.1 L over the past 24 hours. She remains on Bumex 1 mg p.o. daily. She is also on Diamox 5 mg IV every 12 hours. The blood work from today shows a BUN of 24 with a creatinine of 0.7. Serum bicarb is at 36 and a sodium levels at 140. The white cell count is 7.9 with a hemoglobin of 11.4 and a platelet count of 164. The follow-up chest x-ray from yesterday was still showing a masslike consolidation/opacity in the right midlung/right lower lobe area. The patient also has some ongoing mild cardiomegaly. Wound care is being applied. ID is on the case. The patient remains on daptomycin and IV cefepime. On 07/11/2024, the patient is being seen for a follow-up. Remains quite lethargic and continues to have diminished level of consciousness. She remains on a BiPAP at her same setting of 12 over 5 cm of water. Repeat blood gas was done with an FiO2 40% showed a pH of 7.36 with a pCO2 of 71 and pO2 of 83. The patient is however arousable. She continues to be treated for a extensive right lower extremity wound infection with septicemia the patient had Enterococcus faecium and she remains essentially same antibiotic coverage including combination of cefepime and daptomycin. On today's blood work, the white cell count is 7.4 with a hemoglobin 10.9 and a platelet count of 174. The sodium level is at 139, BUN is 28 with a creatinine of 0.6. Potassium is at 4 and a serum bicarb is at 39. She is on Diamox 500 mg IV every 12 hours. She is on Bumex 1 mg p.o. daily. Rest of the medications are essentially unchanged. No significant agitation. 07/12/2024, the patient is being seen for a follow-up. On today's evaluation, the patient is arousable and she is able to communicate. She does have some background encephalopathy and confusion. She is complaining of pain involving lower extremities the patient has extensive wounds in lower extremities bilaterally involving the lateral aspect of the lower extremities bilaterally above the ankle. The area was inspected today and the wound base is erythematous and less purulence. No foul drainage at this point in time. The patient was taken off the BiPAP this morning. The patient was placed on oxygen and she is currently at 60s over the nasal cannula. Repeat blood gas was done and the patient showed a pH of 7.35 with a pCO2 of 65 and pO2 of 52 and this was on FiO2 of 36%. The follow-up chest x-ray from today shows a masslike consolidation in the right lung which seems to be less dense and more hazy. There is also cardiomegaly and pulm vascular congestion with mild pulm vascular congestion. The white cell count is at 9, hemoglobin is 10.7 and a platelet count of 176. BUN is 34 with a creatinine of 0.6 and a sodium level is at 137. The patient is receiving Diamox to 50 mg p.o. daily. The patient remains on Las ix 40 mg IV push every 12 hours. The fluid balance is -1.7 L over the past 24 hours. The patient remains on broad-spectrum antibiotics. The patient is currently on cefepime and daptomycin. Rest of the medications remain unchanged. She remains on Aldactone 25 mg p.o. daily and trazodone at bedtime 50 mg nightly. 07/13/2024, the patient is being seen for a follow-up. Patient is awake and alert and communicating. Denies having any significant complaints other than pain in her back and lower extremities bilaterally. Neurologically, much more awake and alert and communicating. No signs of any CO2 narcosis. Remains on IV Lasix. Remains on Aldactone and Diamox. Most recent blood gas from yesterday showed marked improvement respiratory status. Current serum bicarb level is at 32, sodium is at 135 with a potassium level 3.9. The white cell count of 3.5 with a hemoglobin of 11 and a platelet count of 172. She is utilizing the BiPAP only overnight. Patient has adequate urine output. Denies having any other complaints. Tolerating the oral intake. No reported aspiration. Chest x-ray from yesterday still showing cardiomegaly and pulm vessel congestion in addition to a vague right midlung opacity that is being followed up by serial chest x- rays. She remains on a combination of cefepime and daptomycin. ID is on the case. She is still on a combination of Desyrel and Seroquel. 07/14/2024, the patient is being seen for a follow-up. Overnight, the patient was utilizing her BiPAP at a pressure of 12 over 5 cm of water. This morning, the patient is still on a BiPAP. She is arousable and awake. No significant events overnight. No chest pain. No focal neurological deficits. Remains on the same regimen of antibiotics and the patient remains on daptomycin. ID is on the case. She remains on diuretics. She is on IV Lasix 40 mg every 12 hours and Aldactone 25 mg p.o. daily. She is also on Diamox to 50 mg p.o. on a daily basis. Sodium levels at 132, potassium level is at 4.1, BUN 32 with a creatinine 0.8. The white cell count of 10.9 with a hemoglobin 12 and a platelet count of 206. She was transferred out of the intensive care unit yesterday. No fever. No chills. She is still undergoing wound care to her lower extremity wounds and ID is on the case. 07/15/2024, the patient is being seen for a follow-up. She did encounter some episodes of confusion yesterday. This morning she is on a BiPAP and I took her off the BiPAP and put her on 3 L of oxygen by nasal cannula. She seems to be much more appropriate. She remains on IV Lasix. She is also on Aldactone. Fluid balance is -1.7 L over the past 24 hours. No specific complaints. Antibiotics remain daptomycin. The white cell count is at 8.3, hemoglobin is 10 and platelet count of 206. BUN is at 30 with a creatinine of 0.600 serum bicarb level is at 37. No new complaints otherwise for now. Patient was seen today on 07/16/2024, patient was seen on follow-up, seems to be about the same, she is not confused today, she is intermittently on BiPAP, during my evaluation she was on 2 L nasal cannula, seems to be very appropriate, remains on diuretics including Lasix and Aldactone. She had a significant negative fluid balance over the last 24 hours. Remains on daptomycin for enterococcal infection. WBC count is 9 hemoglobin 11.6, basic metabolic profile is normal ABG from yesterday was noted and it showed a pO2 of 120 pCO2 73 pH of 7.33. Her chest x-ray today continues to show evidence of congestive heart failure with cardiomegaly and small bilateral pleural effusions there is cierra dence of right midlung mass highly suggestive of malignancy needs outpatient follow-up and possible bronc and biopsy Seen today on 07/17/2024, patient is feeling much better today compared to the prior days. Breathing easier, less shortness of breath, her mentation even seems to be improving. Remains on daptomycin for her enterococcal infection, she is on 3 L nasal cannula, remains on diuretics including Lasix and Aldactone. Reviewed her previous CT of the chest, patient does have a lung mass suspicious for bronchogenic carcinoma however this will need outpatient follow-up. WBC count is 8.5 hemoglobin is 10.6 electrolytes are normal renal profile is normal bicarb is 39 Seen today on 07/18/2024, patient is feeling better today, she has good days and bad days but overall she is doing well, remains on antibiotics, remains on 5 L nasal cannula, O2 saturation is 100%. WBC count is 8.8 hemoglobin is 11 basic metabolic profile is normal bicarb is 40 renal profile is normal. Patient was seen today , patient is about the same, steadily improving, remains on antibiotics as per infectious disease on the case. Remains on 5 L nasal cannula and she has O2 saturation in the high 90s. Denies shortness of breath denies any cough or wheezing. WBC count is 7.56 hemoglobin 10.7 electr olytes are normal bicarb is 14 BUN is 30 creatinine 1.06, remains on diuretics including Bumex 1 mg twice daily remains on metoprolol and Aldactone she is also on Eliquis. For paroxysmal atrial fibrillation. Seen today on 07/20/2024, clinically the patient is about the same, pulmonary knight about the same, remains on antibiotics for her sepsis and bacteremia as per infectious disease remains on diuretics remains on bronchodilators, overall the patient is steadily improving. Patient will need final clearance for discharge by infectious disease WBC is 7.7 hemoglobin is 11 electrolytes abnormal renal profile is normal reviewed the note from infectious disease, recommending patient to be switched to Zyvox 600 mg twice daily as of 07/18 and plan is to continue that for 1 week / 10 days of antibiotics on discharge. Seen today , doing well, asymptomatic, I believe the patient has been c leared by infectious disease for discharge, pulmonary knight I am clearing the patient, she needs to follow-up with Dr. Santana on an outpatient basis. Objective - Vital Signs Vital signs: Vital Signs Temp 97.8 F 07/21/24 08:38 Pulse 73 07/21/24 11:40 Resp 17 07/21/24 11:40 BP 120/76 07/21/24 11:40 Pulse Ox 95 07/21/24 11:40 FiO2 40 07/21/24 08:35 Intake & Output 07/20/24 07/21/24 07/21/24 18:59 06:59 18:59 Intake Total 20 20 130 Output Total 1300 625 600 Balance -0144 -762 -650 Weight 103.5 kg 98.5 kg Intake: IV 20 20 10 Invasive Line 10 20 20 10 Oral 120 Output: Urine 1300 625 600 Other: Voiding Method Indwelling Catheter Indwelling Catheter Indwelling Catheter # Bowel Movements 0 - Exam GENERAL EXAM: 73-year-old female in no distress on 2 L nasal cannula with O2 sat of 95% HEAD: Normocephalic. EYES: Normal reaction of pupils, equal size. NOSE: Clear with pink turbinates. THROAT: No erythema or exudates. NECK: No masses, no JVD. CHEST: No chest wall deformity. LUNGS: Equal air entry with no crackles, wheeze, rhonchi or dullness. CVS: S1 and S2 normal with no audible murmur, regular rhythm. ABDOMEN: No hepatosplenomegaly, normal bowel sounds, no guarding or rigidity. SKIN: No rashes. Chronic venous stasis of the lower extremities. Purulent bilateral lower extremity ulcer with purulent material covering the base of the ulcer on the right lower extremity and stage IV heel ulcer in the right foot. CENTRAL NERVOUS SYSTEM: Alert oriented x 3 no gross focal deficit EXTREMITIES: Changes of chronic venous stasis. There is no peripheral edema. No clubbing, no cyanosis. Peripheral pulses are intact. - Labs CBC & Chem 7: 07/21/24 05:56 07/21/24 05:56 Labs: Abnormal Lab Results - Last 24 Hours (Table) 07/20/24 07/20/24 07/21/24 Range/Units 16:22 20:03 05:56 RBC 3.59 L (4.10-5.20) 10*6/uL Hgb 10.2 L (12.0-15.0) g/dL Hct 35.1 L (37.2-46.3) % MCV 97.8 H (80.0-97.0) fL MCHC 29.1 L (32.0-37.0) g/dL Sodium (137-145) mmol/L Chloride (98-107) mmol/L Carbon Dioxide (22-30) mmol/L BUN (7-17) mg/dL Glucose (74-99) mg/dL POC Glucose (mg/dL) 163 H 202 H (70-110) mg/dL AST (14-36) U/L Total Protein (6.3-8.2) g/dL Albumin (3.5-5.0) g/dL 07/21/24 07/21/24 07/21/24 Range/Units 05:56 06:09 11:16 RBC (4.10-5.20) 10*6/uL Hgb (12.0-15.0) g/dL Hct (37.2-46.3) % MCV (80.0-97.0) fL MCHC (32.0-37.0) g/dL Sodium 135 L (137-145) mmol/L Chloride 89 L (98-107) mmol/L Carbon Dioxide 40 H (22-30) mmol/L BUN 30 H (7-17) mg/dL Glucose 157 H (74-99) mg/dL POC Glucose (mg/dL) 168 H 305 H (70-110) mg/dL AST 41 H (14-36) U/L Total Protein 5.7 L (6.3-8.2) g/dL Albumin 3.1 L (3.5-5.0) g/dL Assessment and Plan Assessment: Impression: Acute on chronic hypoxic and hypercapnic respiratory failure patient has a combination of COPD and congestive heart failure/diastolic congestive heart failure, patient was noted to have preserved LV function Severe pulmonary hypertension Mild aortic stenosis sepsis secondary to enterococcal septicemia with negative blood cultures patient is on daptomycin Morbid obesity Altered mental status/encephalopathy with CO2 narcosis 7.1 cm right mid lung mass, needs outpatient follow-up with Dr. Stokes and will eventually require a PET scan on outpatient basis. Type 2 diabetes Dyslipidemia Hypothyroidism Recommendation: Continue oxygen and titrate accordingly Continue bronchodilators Continue diuretics Cleared for discharge. Follow-up with Dr. Stokes on outpatient basis for her presumptive lung mass Will see as needed Time with Patient: Less than 30 (1)
--- NOTE | 2024-07-21 13:55 | MR ---
EXAMINATION TYPE: MR brain wo/w con DATE OF EXAM: 07/21/2024 1:35 PM COMPARISON: None. CLINICAL INDICATION: Female, 73 years old with history of confusion,lung mass, Confusion, lung mass. Please assess left supraclavicular, infraclavicular area TECHNIQUE: Multiplanar, multiecho imaging on a 3.0 Laura magnet is performed through the brain. Stud y is performed within 24 hours of arrival to the hospital.Multiplanar, multiecho imaging on a 3.0 Verenice la magnet is performed through the knee. IV Contrast: 10 mL Gadobutrol (None, if empty) FINDINGS: The craniovertebral junction is normal. The pituitary is normal. Diffusion-weighted imaging is performed. No abnormal hyperintensity is present to suggest an acute i ntracranial infarct or acute ischemic change. There are multiple bilateral patchy white matter hyperintensities on T2 and inversion recovery weight ed sequences. Findings are nonspecific but can be related to microvascular ischemic change. Ventricles and sulci are appropriate for the patient age. Supraclavicular and infraclavicular regions are out of the [id number]. IMPRESSION: 1. No suspicious changes to suggest intracranial metastatic disease 2. Moderately advanced chronic appearing periventricular and deep white matter ischemic-type changes. CT chest 05/11/2024 [facility], , 07/21/2024 1:52 PM
[2024-07-21 16:21] LABS: Glucose,Whole Blood 118 mg/dL (70-110)
[2024-07-21 20:10] LABS: Glucose,Whole Blood 222 mg/dL (70-110)
[2024-07-22 06:26] LABS: Glucose,Whole Blood 178 mg/dL (70-110)
[2024-07-22 07:26] LABS: Basophils # (A) 0.04 10*3/uL (0.00-0.10); Basophils % (A) 0.6 %; Eosinophils # (A) 0.11 10*3/uL (0.04-0.35); Eosinophils % (A) 1.6 %; HCT 36.3 % (37.2-46.3); Lymphocytes # (A) 1.43 10*3/uL (0.90-5.00); Lymphocytes % (A) 20.5 %; MCH 29.3 pg (27.0-32.0); MCHC 30.3 g/dL (32.0-37.0); MCV 96.5 fL (80.0-97.0); Monocytes # (A) 0.53 10*3/uL (0.20-1.00); Monocytes % (A) 7.6 %; Neutrophils # (A) 4.83 10*3/uL (1.80-7.70); Neutrophils % (A) 69.3 %; Platelet Count 283 10*3/uL (140-440); RBC 3.76 10*6/uL (4.10-5.20); RDW 14.6 % (11.5-14.5); WBC 6.97 10*3/uL (4.50-10.00)
[2024-07-22 07:54] LABS: ALT 27 U/L (4-34); AST 33 U/L (14-36); African American GFR (CKD) 67 (>60 ml/min/1.73 sqM); Albumin 3.1 g/dL (3.5-5.0); Alkaline Phosphatase 79 U/L (38-126); Blood Urea Nitrogen 32 mg/dL (7-17); Calcium 9.2 mg/dL (8.4-10.2); Chloride 88 mmol/L (98-107); Glucose 179 mg/dL (74-99); Non-African American GFR(CKD) 58 (>60 ml/min/1.73 sqM); Potassium 4.2 mmol/L (3.5-5.1); Sodium 133 mmol/L (137-145); Total Bilirubin 0.5 mg/dL (0.2-1.3); Total Protein 5.8 g/dL (6.3-8.2)
[2024-07-22 08:02] LABS: Anion Gap 8 mmol/L; Carbon Dioxide 37 mmol/L (22-30)
--- NOTE | 2024-07-22 08:26 | P.PN ---
Subjective Progress Note Date: 07/22/24 Ajay Robertson, is a 73-year-old female who presented to [facility] emergency room with a chief complaint of worsening shortness of breath, additionally patient was found on the floor in her house, she stated that she fell while asleep and was not able to stand up. She was evaluated in the emergency room vital examination on presentation revealed a temperature of 98.3 pulse 89 respiration 20 blood pressure 115/73 pulse ox 95% on 5 L nasal cannula Laboratory data revealed a white blood count of 11.4 hemoglobin 12.7 platelet count 190 BUN 20 creatinine 0.64 influenza A and B RSV and COVID-19 PCR were all negative Testing in the emergency room revealed chest x-ray revealed pulmonary congestion suggestive of congestive heart failure exacerbation and a new 4.7 masslike consolidation in the right mid to lower lung Patient was admitted to medical floor for further evaluation and treatment Past medical history is significant for history of hypertension, history of hyperlipidemia, history of hypothyroidism, history of diabetes mellitus, history of COPD, history of congestive heart failure, history of morbid obesity, history of recurrent episodes of bilateral lower extremity cellulitis. On review of systems patient is alert and oriented x 3 in no apparent distress, she is complaining of generalized body ache, she is complaining of shortness of breath, otherwise she denies any complaints there is no fever or chills no headache or dizziness no chest pain, she has occasional cough no nausea or vomiting no abdominal pain no diarrhea and no urinary symptoms. On 07/05/2024 patient is alert and oriented x 3. Awaiting consulting providers input. Patient remains on IV Lasix. CT of the chest has been completed. At this time patient denies chest pain. Patient denies nausea vomiting or diarrhea. Patient denies any urinary burning or frequency On 07/06/2024 patient is alert and oriented x 3. Patient remains on IV Lasix and IV antibiotics. Cardiology pulmonary and infectious disease services are following. Current vital signs temp 98.1, heart rate 67, respiratory rate 15, blood pressure 96/53 with a pulse ox of 93% on 4 L. Patient denies chest pain or shortness of breath. Patient denies nausea vomiting or diarrhea. Patient denies any urinary burning or frequency. On 07/07/2024 patient was seen and examined on the telemetry floor she is somnolent arousable in no apparent distress, yesterday patient was agitated and aggressive with medical staff, Seroquel was added to her medication regimen, however today she is more somnolent, Seroquel will be changed to as needed only. There is no fever or chills no headache or dizziness no chest pain patient still has shortness of breath with any activity and cough no nausea or vomiting no abdominal pain no diarrhea no urinary symptoms. On 07/08/2024 patient was seen and examined on the telemetry floor, she is so mnolent responsive in no apparent distress, currently she is maintained on BiPAP, she had episodes of agitation through the night, she was pulling off her IV in the BiPAP, she received 1 dose of IM Haldol, she is maintained on soft restraints at this time, her vital examination reveals a temperature of 99.8 pulse 109 respiration 22 pulse ox 95% on BiPAP FiO2 40% she is maintained on IV daptomycin infectious disease are following On 07/09/2024 patient was seen and examined on the telemetry floor, she is somnolent responsive in no apparent distress, she is still having episodes of agitation requiring as needed Seroquel use, otherwise she is improving gradually, there is no fever or chills no headache or dizziness no chest pain, she has shortness of breath with any activity, no nausea or vomiting no abdominal pain no diarrhea and no urinary symptoms, she remains on IV antibiotics, infectious disease are following, also cardiology and pulmonary are following On 07/10/2024 patient remains somnolent on BiPAP. Pulmonary and infectious disease services following. Patient remains on IV antibiotics. Patient remains on IV Diamox. Current vital signs temp 99.8, heart rate 78, respiratory rate 18, blood pressure 123/69 with a pulse ox of 96% on BiPAP with an FiO2 of 40. On 07/11/2024 patient was seen and examined on the medical floor, she is alert responsive in no apparent distress, she was maintained on BiPAP through the night, there is no fever or chills no headache or dizziness no chest pain no shortness of breath at rest, she has occasional cough and severe shortness of breath with any activity no nausea or vomiting no abdominal pain no diarrhea no urinary symptoms. On 07/12/2024 patient is alert but remains confused. Patient remains in the ICU. Patient was on BiPAP for 6 hours. Patient did require Precedex for increased agitation. Patient remains on IV cefepime and Diamox. Along with scheduled Bumex. Colace added for constipation. Patient denies chest pain. Patient denies nausea vomiting or diarrhea. Patient denies any urinary burning frequency On 07/13/2024 patient is more alert today. Per nursing staff plans for HANNA due to bacteremia. Current vital signs temp 99.0, heart rate 92, respiratory rate 25, blood pressure 125/69 with a pulse ox of 97% on 6 L. Patient denies chest pain. Patient denies nausea vomiting or diarrhea. Patient denies any urinary burning or frequency. Patient remains on Diamox and IV Maxipime. On 07/14/2024 patient was seen and examined on the telemetry floor, she is alert and oriented x 3 in no apparent distress, during the night patient required BiPAP, she had an episode of agitation and she received IM Haldol, yesterday e vening patient had an episode of atrial fibrillation with rapid ventricular response, she received IV Cardizem, and her rhythm converted back to normal sinus rhythm. Otherwise no issues since yesterday, patient denies any chest pain, there is no shortness of breath at rest, no fever or chills no headache or dizziness no palpitation, no nausea or vomiting no abdominal pain no diarrhea and no urinary symptoms. On 07/15/2024 patient is alert and oriented x 3. Patient's mentation improved. Patient denies chest pain or shortness of breath. Patient denies nausea vomiting or diarrhea. Patient denies any urinary burning or frequency. Current vital signs temp 97.8, heart 94, respiratory 20, blood pressure 122/58 with a pulse ox of 93% on 3 L. Patient remains on daptomycin and gentamicin. On 07/16/2024 patient was seen and examined on the telemetry floor, she is alert and oriented x 3 in no apparent distress, there is no fever or chills no headache or dizziness, no chest pain, she has shortness of breath with any activity she has occasional cough no nausea or vomiting no abdominal pain no diarrhea no blood in the stool, no urinary symptoms. Rock catheter remains in, bilateral lower extremity wrapping and protective boots are on. Vital exam reveals a temperature of 98.1 pulse 86 respiration 18 blood pressure 113/74 pulse ox 98% on 6 L nasal cannula. White blood count is 9.0 hemoglobin 11.6 platelet count 246 sodium 135 potassium 4.0 chloride 98 CO2 34 BUN 22 creatinine 0.62 On 07/17/2024 patient currently resting comfortably on BiPAP. Neurology services have been consulted for altered mental status. Patient remains on IV daptomycin and gentamicin. Pulmonary, cardiology, infectious disease and neurology services consulted. Current vital signs temp 97.9, heart rate 79, respiratory rate 16, blood pressure 127/79 with pulse ox 98% on 6 L. On 07/18/2024 patient was seen and examined on the medical floor she is alert and oriented x 3 in no apparent distress she is maintained on oxygen 4 L nasal cannula there is no fever or chills no headache or dizziness no chest pain no shortness of breath at rest patient has shortness of breath with any activity no nausea or vomiting no abdominal pain no diarrhea and no urinary symptoms On 07/19/2024 patient is alert and oriented x 3. Patient currently on nasal cannula 5 L. Patient had HANNA done was negative. Per neurology note patient refusing head CT at this time. Will consult oncology services due to concerns of lung mass discharge planning to [facility]. Patient denies chest pain. Patient denies nausea vomiting or diarrhea. Patient denies any urinary burning or frequency On 07/20/2024 patient is alert and oriented x 3. MRI of the brain has been ordered per oncology services. Discharge planning to [facility]. Per ID recommendations for Zyvox for 10 days. Patient denies chest pain or shortness of breath. Patient denies nausea vomiting or diarrhea. Patient denies any urinary burning or frequency. 0.7, heart rate 80, respiratory rate 16, blood pressure 113/73 with pulse ox of 96% on 3 L On 07/21/2024 patient was seen and examined on the medical floor she is alert and oriented x 3 in no apparent distress, there is no fever or chills no headache or dizziness no chest pain no shortness of breath no cough no nausea or vomiting no abdominal pain no diarrhea and no urinary symptoms. Patient is scheduled for brain MRI today, will continue to follow closely On 07/22/2024 patient is alert and oriented x 3. Patient had MRI yesterday showing no suspicious changes to suggest intracranial metastatic disease moderately advanced chronic appearing periventricular and deep white matter ischemic type changes. Discharge planning to [facility]. Patient denies chest pain or shortness of breath. Patient denies nausea vomiting or diarrhea. Patient denies any urinary burning or frequency Objective - Vital Signs Vital signs: Vital Signs Temp 98.2 F 07/21/24 20:05 Pulse 77 07/22/24 03:40 Resp 21 07/22/24 03:40 BP 131/75 07/22/24 03:40 Pulse Ox 97 07/22/24 03:40 FiO2 40 07/22/24 03:40 Intake & Output 07/21/24 07/22/24 07/22/24 18:59 06:59 18:59 Intake Total 140 30 0 Output Total 1100 1100 Balance -960 -1070 0 Weight 181 kg Intake: IV 20 30 Invasive Line 1 10 Invasive Line 10 20 20 Oral 120 0 Output: Urine 1100 1100 Other: Voiding Method Indwelling Catheter Indwelling Catheter - Exam In general patient is alert and oriented x 3 in no distress HEENT head normocephalic and atraumatic Neck is supple no JVD no goiter no lymphadenopathy no carotid bruit Chest examination reveals a scattered crackles bilaterally no wheezing Cardiac exam reveals regular heart sounds S1 and S2 no gallops no murmurs Abdomen is soft nontender no organomegaly with normal bowel sounds Extremity exam reveals 3+ edema with erythema and chronic stasis changes, multiple small ulceration with scabbing no cyanosis or clubbing Neurological examination reveals no gross focal deficits - Labs CBC & Chem 7: 07/22/24 06:08 07/22/24 06:08 Labs: Abnormal Lab Results - Last 24 Hours (Table) 07/21/24 07/21/24 07/21/24 Range/Units 11:16 16:17 20:08 RBC (4.10-5.20) 10*6/uL Hgb (12.0-15.0) g/dL Hct (37.2-46.3) % MCHC (32.0-37.0) g/dL Sodium (137-145) mmol/L Chloride (98-107) mmol/L Carbon Dioxide (22-30) mmol/L BUN (7-17) mg/dL Glucose (74-99) mg/dL POC Glucose (mg/dL) 305 H 118 H 222 H (70-110) mg/dL Total Protein (6.3-8.2) g/dL Albumin (3.5-5.0) g/dL 07/22/24 07/22/2407/22/25 Range/Units 06:08 06:08 06:25 RBC 3.76 L (4.10-5.20) 10*6/uL Hgb 11.0 L (12.0-15.0) g/dL Hct 36.3 L (37.2-46.3) % MCHC 30.3 L (32.0-37.0) g/dL Sodium 133 L (137-145) mmol/L Chloride 88 L (98-107) mmol/L Carbon Dioxide 37 H (22-30) mmol/L BUN 32 H (7-17) mg/dL Glucose 179 H (74-99) mg/dL POC Glucose (mg/dL) 178 H (70-110) mg/dL Total Protein 5.8 L (6.3-8.2) g/dL Albumin 3.1 L (3.5-5.0) g/dL Assessment and Plan Plan: Acute congestive heart failure exacerbation Bacteremia New 4.7 cm masslike consolidation opacity in the right midlung Fall at home, with generalized body pain Bilateral lower extremity cellulitis, with multiple open ulcers Underlying history of hypertension Underlying history of hyperlipidemia Underlying history of diabetes mellitus Underlying history of COPD Underlying history of morbid obesity At this time patient was admitted to telemetry floor Patient has been transferred out of the intensive care unit Remains on IV antibiotics Continue BiPAP Consultation for pulmonary, infectious disease, and cardiology initiated Will follow closely
[2024-07-22 11:16] LABS: Glucose,Whole Blood 180 mg/dL (70-110)
--- NOTE | 2024-07-22 11:46 | P.PN ---
Subjective Progress Note Date: 07/22/24 Principal diagnosis: Acute on chronic hypoxic respiratory failure and enterococcal sepsis This is a 73-year-old obese white female today seen in room 620. She came to the hospital with 1 day of shortness of breath, leg swelling, and cough. Her viral screen was negative. The patient has smoked for about 40 to 45 years. The only medicine she takes at home for her breathing is albuterol. Her procalcitonin level was 0.05. Chest x-ray showed some fluid overload, but also showed a possible mass in the right midlung, which could be either an actual mass or pseudotumor. A CT scan was ordered. It does show a 7.1 lobulated mass in the right lung. A PET scan was recommended. Currently, the patient is on 4 L of oxygen. No fluids are ordered. She is getting Lasix 40 mg every 8 hours. She also has an updraft ordered. White count 1.22, hemoglobin 11.3, macro 39.1, platelet count 185,000. Coags are normal. Sodium 141, potassium 4.3, chlorides 94, CO2 39, BUN 17.5, creatinine 0.9. Glucose 169. Calcium 8.6. Troponin was negative. N-terminal proBNP was elevated at 1830. Procalcitonin level was 0.05. Urine is negative. Viral screen was negative. Chest x-ray was consistent with fluid overload/CHF. Cardiology has seen the patient. The patient is seen today July 06, 2024 in follow-up on the regular medical floor. She is currently sitting up in bed. Awake and alert in no acute distress. She is maintaining O2 saturations in the 90s on 4 L/min per nasal cannula. She is receiving normal saline at 75 mL/h. White count 10.2. Hemoglobin 11.5. Platelets 198. Sodium 134. Potassium 4.5. Bicarb 38. BUN 29. Creatinine 0.83. Glucose 132. She remains on cefazolin. IV diuretics were discontinued. The patient is seen today July 07, 2024 in follow-up on the regular medical floor. She is currently resting comfortably in bed. Awake and alert in no acute distress. Maintaining good O2 saturations in the 90s on 5 L/min per nasal cannula. She is receiving normal saline at 50 mL/h. Her blood culture isshowing Enterococcus faecium. She is currently on daptomycin. Remains on bronchodilators. 1.2. Platelets 204. Sodium 144. Potassium 5.2. Bicarb 39. BUN 24. Creatinine 0.6. Glucose 153. Progress note dated July 08, 2024. The patient was moved down to the third floor, sometime yesterday or last night, for respiratory distress. I was never notified. The patient was seen today in room 360. She was on BiPAP, with settings of 12/5, and 40%. She was getting saline at 20 cc an hour. A blood gas was done on 44% oxygen showing a pO2 of 84, pCO2 of 91, pH is 7.29. Her blood cultures were positive for Enterococcus faecium. For that reason, she is on daptomycin. Current labs include a white count 7.8, hemoglobin 11.2, hematocrit 38.3, and a platelet count of 173,000. Sodium 139, potassium 4.5, chlorides 93, CO2 40, BUN 29, and creatinine 0.58. Glucose 74. Albumin is 3. Chest x-ray done yesterday, continues to show me in addition, there is diffuse changes, consistent with fluid overload and/or pneumonia. On 07/09/2024, the patient is being seen for a follow-up. Morbidly obese female patient was hospitalized for an acute on top of chronic hypoxic and hypercapnic respiratory failure. At the time of my evaluation this morning, the patient was started on a BiPAP at a pressure of 12/5 with an FiO2 of 40%. I took the patient off the BiPAP and put her on 4 L of oxygen by nasal cannula. Subsequent blood gases showed a pH of 7.34 with pCO2 of 86 and pO2 162. The patient has a mass like consolidation involving the right lower lobe. This could be pneumonia versus malignancy. At the same time, the patient is septic and the source of sepsis is a wound infection and the patient has active wet wound with purulent foul-smelling material covering the wound base and the right lower extremity above the lateral malleolus. Blood culture was positive for Enterococcus faecalis and based on that, the patient has been maintained on a combination of daptomycin and the patient is also on IV cefepime. Repeat chest x-ray was done and it showed a right lower lobe masslike opacity that remains unchanged compared to the previous x-rays in addition to mild cardiomegaly and pulm vessel congestion. The patient is sitting daily diuresis. The patient is producing excellent urine output and the fluid balance is -2.6 L over the past 24 hours. The white cell count is 7.1 with a heme of 10.6 and a platelet count of 151. Serum bicarb is 44 with BUN of 29 and a creatinine of 0.5. Sodium is at 140. She remains encephalopathic. She is arousable. She has tolerated the BiPAP reasonably well. On 07/10/2024, the patient is being seen for a follow-up. The patient remains on BiPAP and she seems to be tolerating the BiPAP reasonably well. This morning, the patient is on a BiPAP at a pressure of 12 over 5 cm of water with an FiO2 of 40% which is essentially the same setting as yesterday. She is arousable and she is able to communicate. At times confused. I took this patient off the BiPAP and put her on oxygen at 5 L/min nasal cannula. Subsequent blood gases showed a pH of 7.33 with a pCO2 of 78 and pO2 of 129. She is still lethargic and weak. Denies having any chest pain. She does have swelling in lower extremities bilaterally. She was given IV Lasix yesterday and her fluid balance is -3.1 L over the past 24 hours. She remains on Bumex 1 mg p.o. daily. She is also on Diamox 5 mg IV every 12 hours. The blood work from today shows a BUN of 24 with a creatinine of 0.7. Serum bicarb is at 36 and a sodium levels at 140. The white cell count is 7.9 with a hemoglobin of 11.4 and a platelet count of 164. The follow-up chest x-ray from yesterday was still showing a masslike consolidation/opacity in the right midlung/right lower lobe area. The patient also has some ongoing mild cardiomegaly. Wound care is being applied. ID is on the case. The patient remains on daptomycin and IV cefepime. On 07/11/2024, the patient is being seen for a follow-up. Remains quite lethargic and continues to have diminished level of consciousness. She remains on a BiPAP at her same setting of 12 over 5 cm of water. Repeat blood gas was done with an FiO2 40% showed a pH of 7.36 with a pCO2 of 71 and pO2 of 83. The patient is however arousable. She continues to be treated for a extensive right lower extremity wound infection with septicemia the patient had Enterococcus faecium and she remains essentially same antibiotic coverage including combination of cefepime and daptomycin. On today's blood work, the white cell count is 7.4 with a hemoglobin 10.9 and a platelet count of 174. The sodium level is at 139, BUN is 28 with a creatinine of 0.6. Potassium is at 4 and a serum bicarb is at 39. She is on Diamox 500 mg IV every 12 hours. She is on Bumex 1 mg p.o. daily. Rest of the medications are essentially unchanged. No significant agitation. 07/12/2024, the patient is being seen for a follow-up. On today's evaluation, the patient is arousable and she is able to communicate. She does have some background encephalopathy and confusion. She is complaining of pain involving lower extremities the patient has extensive wounds in lower extremities bilaterally involving the lateral aspect of the lower extremities bilaterally above the ankle. The area was inspected today and the wound base is erythematous and less purulence. No foul drainage at this point in time. The patient was taken off the BiPAP this morning. The patient was placed on oxygen and she is currently at 60s over the nasal cannula. Repeat blood gas was done and the patient showed a pH of 7.35 with a pCO2 of 65 and pO2 of 52 and this was on FiO2 of 36%. The follow-up chest x-ray from today shows a masslike consolidation in the right lung which seems to be less dense and more hazy. There is also cardiomegaly and pulm vascular congestion with mild pulm vascular congestion. The white cell count is at 9, hemoglobin is 10.7 and a platelet count of 176. BUN is 34 with a creatinine of 0.6 and a sodium level is at 137. The patient is receiving Diamox to 50 mg p.o. daily. The patient remains on Las ix 40 mg IV push every 12 hours. The fluid balance is -1.7 L over the past 24 hours. The patient remains on broad-spectrum antibiotics. The patient is currently on cefepime and daptomycin. Rest of the medications remain unchanged. She remains on Aldactone 25 mg p.o. daily and trazodone at bedtime 50 mg nightly. 07/13/2024, the patient is being seen for a follow-up. Patient is awake and alert and communicating. Denies having any significant complaints other than pain in her back and lower extremities bilaterally. Neurologically, much more awake and alert and communicating. No signs of any CO2 narcosis. Remains on IV Lasix. Remains on Aldactone and Diamox. Most recent blood gas from yesterday showed marked improvement respiratory status. Current serum bicarb level is at 32, sodium is at 135 with a potassium level 3.9. The white cell count of 3.5 with a hemoglobin of 11 and a platelet count of 172. She is utilizing the BiPAP only overnight. Patient has adequate urine output. Denies having any other complaints. Tolerating the oral intake. No reported aspiration. Chest x-ray from yesterday still showing cardiomegaly and pulm vessel congestion in addition to a vague right midlung opacity that is being followed up by serial chest x- rays. She remains on a combination of cefepime and daptomycin. ID is on the case. She is still on a combination of Desyrel and Seroquel. 07/14/2024, the patient is being seen for a follow-up. Overnight, the patient was utilizing her BiPAP at a pressure of 12 over 5 cm of water. This morning, the patient is still on a BiPAP. She is arousable and awake. No significant events overnight. No chest pain. No focal neurological deficits. Remains on the same regimen of antibiotics and the patient remains on daptomycin. ID is on the case. She remains on diuretics. She is on IV Lasix 40 mg every 12 hours and Aldactone 25 mg p.o. daily. She is also on Diamox to 50 mg p.o. on a daily basis. Sodium levels at 132, potassium level is at 4.1, BUN 32 with a creatinine 0.8. The white cell count of 10.9 with a hemoglobin 12 and a platelet count of 206. She was transferred out of the intensive care unit yesterday. No fever. No chills. She is still undergoing wound care to her lower extremity wounds and ID is on the case. 07/15/2024, the patient is being seen for a follow-up. She did encounter some episodes of confusion yesterday. This morning she is on a BiPAP and I took her off the BiPAP and put her on 3 L of oxygen by nasal cannula. She seems to be much more appropriate. She remains on IV Lasix. She is also on Aldactone. Fluid balance is -1.7 L over the past 24 hours. No specific complaints. Antibiotics remain daptomycin. The white cell count is at 8.3, hemoglobin is 10 and platelet count of 206. BUN is at 30 with a creatinine of 0.600 serum bicarb level is at 37. No new complaints otherwise for now. Patient was seen today on 07/16/2024, patient was seen on follow-up, seems to be about the same, she is not confused today, she is intermittently on BiPAP, during my evaluation she was on 2 L nasal cannula, seems to be very appropriate, remains on diuretics including Lasix and Aldactone. She had a significant negative fluid balance over the last 24 hours. Remains on daptomycin for enterococcal infection. WBC count is 9 hemoglobin 11.6, basic metabolic profile is normal ABG from yesterday was noted and it showed a pO2 of 120 pCO2 73 pH of 7.33. Her chest x-ray today continues to show evidence of congestive heart failure with cardiomegaly and small bilateral pleural effusions there is cierra dence of right midlung mass highly suggestive of malignancy needs outpatient follow-up and possible bronc and biopsy Seen today on 07/17/2024, patient is feeling much better today compared to the prior days. Breathing easier, less shortness of breath, her mentation even seems to be improving. Remains on daptomycin for her enterococcal infection, she is on 3 L nasal cannula, remains on diuretics including Lasix and Aldactone. Reviewed her previous CT of the chest, patient does have a lung mass suspicious for bronchogenic carcinoma however this will need outpatient follow-up. WBC count is 8.5 hemoglobin is 10.6 electrolytes are normal renal profile is normal bicarb is 39 Seen today on 07/18/2024, patient is feeling better today, she has good days and bad days but overall she is doing well, remains on antibiotics, remains on 5 L nasal cannula, O2 saturation is 100%. WBC count is 8.8 hemoglobin is 11 basic metabolic profile is normal bicarb is 40 renal profile is normal. Patient was seen today , patient is about the same, steadily improving, remains on antibiotics as per infectious disease on the case. Remains on 5 L nasal cannula and she has O2 saturation in the high 90s. Denies shortness of breath denies any cough or wheezing. WBC count is 7.56 hemoglobin 10.7 electr olytes are normal bicarb is 14 BUN is 30 creatinine 1.06, remains on diuretics including Bumex 1 mg twice daily remains on metoprolol and Aldactone she is also on Eliquis. For paroxysmal atrial fibrillation. Seen today on 07/20/2024, clinically the patient is about the same, pulmonary knight about the same, remains on antibiotics for her sepsis and bacteremia as per infectious disease remains on diuretics remains on bronchodilators, overall the patient is steadily improving. Patient will need final clearance for discharge by infectious disease WBC is 7.7 hemoglobin is 11 electrolytes abnormal renal profile is normal reviewed the note from infectious disease, recommending patient to be switched to Zyvox 600 mg twice daily as of 07/18 and plan is to continue that for 1 week / 10 days of antibiotics on discharge. Seen today on 07/22/2024, patient is doing well, relatively asymptomatic, Deana ludwig the patient was cleared by all the consultants to be discharged to rehab, remains on 3 L nasal cannula, not in any distress O2 sats result 85 to 97%. No cough no wheezing no shortness of breath no chest pain. WBC count is 6.97 hemoglobin 11 electrolytes are normal renal profile is normal sugar is 179 Objective - Vital Signs Vital signs: Vital Signs Temp 98.1 F 07/22/24 08:54 Pulse 77 07/22/24 11:06 Resp 16 07/22/24 11:06 BP 126/69 07/22/24 11:06 Pulse Ox 95 07/22/24 11:06 FiO2 40 07/22/24 03:40 Intake & Output 07/21/24 07/22/24 07/22/24 18:59 06:59 18:59 Intake Total 140 30 0 Output Total 1100 1100 1200 Balance -960 -1070 -1200 Weight 181 kg Intake: IV 20 30 Invasive Line 1 10 Invasive Line 10 20 20 Oral 120 0 Output: Urine 1100 1100 1200 Other: Voiding Method Indwelling Catheter Indwelling Catheter Indwelling Catheter - Exam GENERAL EXAM: 73-year-old female in no distress on 3 L nasal cannula HEAD: Normocephalic. EYES: Normal reaction of pupils, equal size. NOSE: Clear with pink turbinates. THROAT: No erythema or exudates. NECK: No masses, no JVD. CHEST: No chest wall deformity. LUNGS: Equal air entry with no crackles, wheeze, rhonchi or dullness. CVS: S1 and S2 normal with no audible murmur, regular rhythm. ABDOMEN: No hepatosplenomegaly, normal bowel sounds, no guarding or rigidity. SKIN: No rashes. Chronic venous stasis of the lower extremities. Purulent bilateral lower extremity ulcer with purulent material covering the base of the ulcer on the right lower extremity and stage IV heel ulcer in the right foot. CENTRAL NERVOUS SYSTEM: Alert oriented x 3 no gross focal deficit EXTREMITIES: Changes of chronic venous stasis. There is no peripheral edema. No clubbing, no cyanosis. Peripheral pulses are intact. - Labs CBC & Chem 7: 07/22/24 06:08 07/22/24 06:08 Labs: Abnormal Lab Results - Last 24 Hours (Table) 07/21/24 07/21/24 07/22/24 Range/Units 16:17 20:08 06:08 RBC 3.76 L (4.10-5.20) 10*6/uL Hgb 11.0 L (12.0-15.0) g/dL Hct 36.3 L (37.2-46.3) % MCHC 30.3 L (32.0-37.0) g/dL Sodium (137-145) mmol/L Chloride (98-107) mmol/L Carbon Dioxide (22-30) mmol/L BUN (7-17) mg/dL Glucose (74-99) mg/dL POC Glucose (mg/dL) 118 H 222 H (70-110) mg/dL Total Protein (6.3-8.2) g/dL Albumin (3.5-5.0) g/dL 07/22/24 07/22/24 07/22/24 Range/Units 06:08 06: 11:15 RBC (4.10-5.20) 10*6/uL Hgb (12.0-15.0) g/dL Hct (37.2-46.3) % MCHC (32.0-37.0) g/dL Sodium 133 L (137-145) mmol/L Chloride 88 L (98-107) mmol/L Carbon Dioxide 37 H (22-30) mmol/L BUN 32 H (7-17) mg/dL Glucose 179 H (74-99) mg/dL POC Glucose (mg/dL) 178 H 180 H (70-110) mg/dL Total Protein 5.8 L (6.3-8.2) g/dL Albumin 3.1 L (3.5-5.0) g/dL Assessment and Plan Assessment: Impression: Acute on chronic hypoxic and hypercapnic respiratory failure patient has a combination of COPD and congestive heart failure/diastolic congestive heart failure, patient was noted to have preserved LV function Severe pulmonary hypertension Mild aortic stenosis sepsis secondary to enterococcal septicemia with negative blood cultures patient is on daptomycin Morbid obesity Altered mental status/encephalopathy with CO2 narcosis 7.1 cm right mid lung mass, needs outpatient follow-up with Dr. Stokes and will eventually require a PET scan on outpatient basis. Type 2 diabetes Dyslipidemia Hypothyroidism Recommendation: Continue oxygen and titrate accordingly Continue bronchodilators Continue diuretics Cleared for discharge. Follow-up with Dr. Stokes on outpatient basis for her presumptive lung mass Time with Patient: Less than 30
[2024-07-22 16:10] LABS: Glucose,Whole Blood 214 mg/dL (70-110)
[2024-07-22 20:10] LABS: Glucose,Whole Blood 185 mg/dL (70-110)
--- NOTE | 2024-07-22 21:30 | P.PN ---
Subjective Progress Note Date: 07/21/24 Principal diagnosis: Reason for follow-up with lower extremity ulcer and cellulitis Patient is a 73-year-old female with a past medical history significant for COPD heart failure diabetes mellitus reflux hyperlipidemia presenting to the hospital for evaluation of a fall that happened the day of presentation to the hospital patient accidentally rolled off the couch onto the floor and was too weak to get herself up, noticed to have bilateral extremity ulcer and cellulitis prompted this consultation. On today's evaluation that is 07/21/2024, patient did not have any fever and denies any chills, patient is breathing comfortably on 3 L nasal oxygen patient with no chest pain or cough patient did not have any abdominal pain nausea vomiting or any loose stools, no pain to the lower extremity. Patient did have white count 7.37, creatinine 0.93 Objective - Vital Signs Vital signs: Vital Signs Temp 97.8 F 07/21/24 08:38 Pulse 73 07/21/24 11:40 Resp 17 07/21/24 11:40 BP 120/76 07/21/24 11:40 Pulse Ox 95 07/21/24 11:40 FiO2 40 07/21/24 08:35 Intake & Output 07/20/24 07/21/24 07/21/24 18:59 06:59 18:59 Intake Total 20 20 10 Output Total 1300 625 600 Balance -1280 -605 -590 Weight 103.5 kg 98.5 kg Intake: IV 20 20 10 Invasive Line 10 20 20 10 Oral 0 Output: Urine 1300 625 600 Other: Voiding Method Indwelling Catheter Indwelling Catheter Indwelling Catheter # Bowel Movements 0 - Exam GENERAL DESCRIPTION: An elderly female lying in bed in no distress RESPIRATORY SYSTEM: Unlabored breathing , decreased breath sounds at bases HEART: S1 S2 regular rate and rhythm , ABDOMEN: Soft , no tenderness EXTREMITIES: Bilateral lower extremity currently wrapped with an Blue wrap no drainage - Labs CBC & Chem 7: 07/22/24 06:08 07/22/24 06:08 Labs: Abnormal Lab Results - Last 24 Hours (Table) 07/20/24 07/20/24 07/21/24 Range/Units 16:22 20:03 05:56 RBC 3.59 L (4.10-5.20) 10*6/uL Hgb 10.2 L (12.0-15.0) g/dL Hct 35.1 L (37.2-46.3) % MCV 97.8 H (80.0-97.0) fL MCHC 29.1 L (32.0-37.0) g/dL Sodium (137-145) mmol/L Chloride (98-107) mmol/L Carbon Dioxide (22-30) mmol/L BUN (7-17) mg/dL Glucose (74-99) mg/dL POC Glucose (mg/dL) 163 H 202 H (70-110) mg/dL AST (14-36) U/L Total Protein (6.3-8.2) g/dL Albumin (3.5-5.0) g/dL 07/21/24 07/21/24 07/21/24 Range/Units 05:56 06:09 11:16 RBC (4.10-5.20) 10*6/uL Hgb (12.0-15.0) g/dL Hct (37.2-46.3) % MCV (80.0-97.0) fL MCHC (32.0-37.0) g/dL Sodium 135 L (137-145) mmol/L Chloride 89 L (98-107) mmol/L Carbon Dioxide 40 H (22-30) mmol/L BUN 30 H (7-17) mg/dL Glucose 157 H (74-99) mg/dL POC Glucose (mg/dL) 168 H 305 H (70-110) mg/dL AST 41 H (14-36) U/L Total Protein 5.7 L (6.3-8.2) g/dL Albumin 3.1 L (3.5-5.0) g/dL Assessment and Plan (1) Leg ulcer, left Current Visit: Yes Status: Acute Code(s): L97.929 - NON-PRS CHRONIC ULC UNSP PRT OF L LOW LEG W UNSP SEVERITY SNOMED Code(s): 43674737 (2) Left leg cellulitis Current Visit: Yes Status: Acute Code(s): L03.116 - CELLULITIS OF LEFT LOWER LIMB SNOMED Code(s): 49655129579089213 (3) Penicillin allergy Current Visit: Yes Status: Acute Code(s): Z88.0 - ALLERGY STATUS TO PENICILLIN SNOMED Code(s): 97216402 (4) Bacteremia Current Visit: Yes Status: Acute Code(s): R78.81 - BACTEREMIA SNOMED Cod e(s): 3980926 Plan: 1patient with diffuse swelling of bilateral lower extremity with superficial solution to the left leg likely venous stasis ulcer with secondary cellulitis likely from gram-positive skin neida. 2patient with a penicillin allergy that will limit the number of antibiotics safe to use. 3local wound care to the left leg with dry Aquacel dressing and Blue wrap to keep the swelling down, and apply Santyl to the wound to the right heel change daily. 4patient did have resolution of the fever and white count is normal however the patient blood culture repeat came back positive highly clinically suspicious for possible endovascular source such as endocarditis 5patient CT of the abdominal pelvis did not show any acute findings UA was negative, patient did have a HANNA that was negative for any vegetation 7patient to continue with Zyvox 600 mg twice daily and monitor clinical course closely Dictation was produced using [employer] dictation software. please excuse any grammatical, word or spelling errors. Time with Patient: Less than 30
--- NOTE | 2024-07-22 21:31 | P.PN ---
Subjective Progress Note Date: 07/22/24 Principal diagnosis: Reason for follow-up with lower extremity ulcer and cellulitis Patient is a 73-year-old female with a past medical history significant for COPD heart failure diabetes mellitus reflux hyperlipidemia presenting to the hospital for evaluation of a fall that happened the day of presentation to the hospital patient accidentally rolled off the couch onto the floor and was too weak to get herself up, noticed to have bilateral extremity ulcer and cellulitis prompted this consultation. On today's evaluation that is 07/22/2024, Patient is afebrile patient is currently on 3 L of oxygen and denies having any shortness of breath, the patient denies any chest pain or cough, the patient denies any nausea vomiting did not have any abdominal pain and no diarrhea. No new symptoms. Patient white count 6.97, creatinine 0.99 Objective - Vital Signs Vital signs: Vital Signs Temp 98.1 F 07/22/24 08:54 Pulse 78 07/22/24 15:19 Resp 17 07/22/24 15:19 BP 99/62 07/22/24 15:19 Pulse Ox 97 07/22/24 15:19 FiO2 40 07/22/24 03:40 Intake & Output 07/22/24 07/22/24 07/23/24 06:59 18:59 06:59 Intake Total 30 240 Output Total 1100 2100 Balance -1070 -1860 Weight 181 kg Intake: IV 30 Invasive Line 1 10 Invasive Line 10 20 Oral 240 Output: Urine 1100 2100 Other: Voiding Method Indwelling Catheter Indwelling Catheter - Exam GENERAL DESCRIPTION: An elderly female lying in bed in no distress RESPIRATORY SYSTEM: Unlabored breathing , decreased breath sounds at bases HEART: S1 S2 regular rate and rhythm , ABDOMEN: Soft , no tenderness EXTREMITIES: Bilateral lower extremity currently wrapped with an Blue wrap no drainage - Labs CBC & Chem 7: 07/22/24 06:08 07/22/24 06:08 Labs: Abnormal Lab Results - Last 24 Hours (Table) 07/22/24 07/22/24 07/22/24 Range/Units 06:08 06:08 06:25 RBC 3.76 L (4.10-5.20) 10*6/uL Hgb 11.0 L (12.0-15.0) g/dL Hct 36.3 L (37.2-46.3) % MCHC 30.3 L (32.0-37.0) g/dL Sodium 133 L (137-145) mmol/L Chloride 88 L (98-107) mmol/L Carbon Dioxide 37 H (22-30) mmol/L BUN 32 H (7-17) mg/dL Glucose 179 H (74-99) mg/dL POC Glucose (mg/dL) 178 H (70-110) mg/dL Total Protein 5.8 L (6.3-8.2) g/dL Albumin 3.1 L (3.5-5.0) g/dL 07/22/24 07/22/24 07/22/24 Range/Units 11:15 16:04 20:08 RBC (4.10-5.20) 10*6/uL Hgb (12.0-15.0) g/dL Hct (37.2-46.3) % MCHC (32.0-37.0) g/dL Sodium (137-145) mmol/L Chloride (98-107) mmol/L Carbon Dioxide (22-30) mmol/L BUN (7-17) mg/dL Glucose (74-99) mg/dL POC Glucose (mg/dL) 180 H 214 H 185 H (70-110) mg/dL Total Protein (6.3-8.2) g/dL Albumin (3.5-5.0) g/dL Assessment and Plan (1) Leg ulcer, left Current Visit: Yes Status: Acute Code(s): L97.929 - NON-PRS CHRONIC ULC UNSP PRT OF L LOW LEG W UNSP SEVERITY SNOMED Code(s): 72925421 (2) Left leg cellulitis Current Visit: Yes Status: Acute Code(s): L03.116 - CELLULITIS OF LEFT LOWER LIMB SNOMED Code(s): 12933606888871344 (3) Penicillin allergy Current Visit: Yes Status: Acute Code(s): Z88.0 - ALLERGY STATUS TO PENICILLIN SNOMED Code(s): 55560151 (4) Bacteremia Current Visit: Yes Status: Acute Code(s): R78.81 - BACTEREMIA SNOMED Code(s): 1362385 Plan: 1patient with diffuse swelling of bilateral lower extremity with superficial solution to the left leg likely venous stasis ulcer with secondary cellulitis likely from gram-positive skin neida. 2patient with a penicillin allergy that will limit the number of antibiotics safe to use. 3local wound care to the left leg with dry Aquacel dressing and Blue wrap to keep the swelling down, and apply Santyl to the wound to the right heel change daily. 4patient did have resolution of the fever and white count is normal however the patient blood culture repeat came back positive highly clinically suspicious for possible endovascular source such as endocarditis 5patient CT of the abdominal pelvis did not show any acute findings UA was negative, patient did have a HANNA that was negative for any vegetation 7patient has shown clinical improvement to continue with Zyvox 600 mg twice daily and consider 10-day course on discharge Dictation was produced using [employer] dictation software. please excuse any grammatical, word or spelling errors. Time with Patient: Less than 30
[2024-07-23 05:04] LABS: Basophils # (A) 0.04 10*3/uL (0.00-0.10); Basophils % (A) 0.6 %; Eosinophils # (A) 0.15 10*3/uL (0.04-0.35); Eosinophils % (A) 2.1 %; HCT 34.6 % (37.2-46.3); HGB 10.5 g/dL (12.0-15.0); Lymphocytes # (A) 1.56 10*3/uL (0.90-5.00); Lymphocytes % (A) 21.5 %; MCH 29.2 pg (27.0-32.0); MCHC 30.3 g/dL (32.0-37.0); MCV 96.1 fL (80.0-97.0); Mean Platelet Volume 10.4 fL (9.5-12.2); Monocytes # (A) 0.53 10*3/uL (0.20-1.00); Monocytes % (A) 7.3 %; Neutrophils # (A) 4.93 10*3/uL (1.80-7.70); Neutrophils % (A) 68.1 %; Platelet Count 232 10*3/uL (140-440); RDW 14.7 % (11.5-14.5); WBC 7.24 10*3/uL (4.50-10.00)
[2024-07-23 06:14] LABS: Glucose,Whole Blood 203 mg/dL (70-110)
[2024-07-23 06:23] LABS: ALT 24 U/L (4-34); AST 31 U/L (14-36); African American GFR (CKD) 80 (>60 ml/min/1.73 sqM); Albumin 3.1 g/dL (3.5-5.0); Alkaline Phosphatase 73 U/L (38-126); Blood Urea Nitrogen 32 mg/dL (7-17); Calcium 9.4 mg/dL (8.4-10.2); Chloride 87 mmol/L (98-107); Glucose 176 mg/dL (74-99); Non-African American GFR(CKD) 69 (>60 ml/min/1.73 sqM); Sodium 134 mmol/L (137-145); Total Bilirubin 0.4 mg/dL (0.2-1.3); Total Protein 5.7 g/dL (6.3-8.2)
[2024-07-23 06:33] LABS: Anion Gap 9 mmol/L
[2024-07-23 06:35] LABS: Carbon Dioxide 38 mmol/L (22-30)
[2024-07-23] MEDS: MAGNESIUM HYDROXIDE 2,400 MG/30 ML CUP PO PRN (09:22)
[2024-07-23 11:03] LABS: Glucose,Whole Blood 189 mg/dL (70-110)
--- NOTE | 2024-07-23 13:09 | P.PN ---
Subjective Progress Note Date: 07/23/24 Principal diagnosis: Shortness of breath. This is a 73-year-old obese white female today seen in room 620. She came to the hospital with 1 day of shortness of breath, leg swelling, and cough. Her viral screen was negative. The patient has smoked for about 40 to 45 years. The only medicine she takes at home for her breathing is albuterol. Her procalcitonin level was 0.05. Chest x-ray showed some fluid overload, but also showed a possible mass in the right midlung, which could be either an actual mass or pseudotumor. A CT scan was ordered. It does show a 7.1 lobulated mass in the right lung. A PET scan was recommended. Currently, the patient is on 4 L of oxygen. No fluids are ordered. She is getting Lasix 40 mg every 8 hours. She also has an updraft ordered. White count 1.22, hemoglobin 11.3, macro 39.1, platelet count 185,000. Coags are normal. Sodium 141, potassium 4.3, chlorides 94, CO2 39, BUN 17.5, creatinine 0.9. Glucose 169. Calcium 8.6. Troponin was negative. N-terminal proBNP was elevated at 1830. Procalcitonin level was 0.05. Urine is negative. Viral screen was negative. Chest x-ray was consistent with fluid overload/CHF. Cardiology has seen the patient. The patient is seen today July 06, 2024 in follow-up on the regular medical floor. She is currently sitting up in bed. Awake and alert in no acute distress. She is maintaining O2 saturations in the 90s on 4 L/min per nasal cannula. She is receiving normal saline at 75 mL/h. White count 10.2. Hemoglobin 11.5. Platelets 198. Sodium 134. Potassium 4.5. Bicarb 38. BUN 29. Creatinine 0.83. Glucose 132. She remains on cefazolin. IV diuretics were discontinued. The patient is seen today July 07, 2024 in follow-up on the regular medical floor. She is currently resting comfortably in bed. Awake and alert in no acute distress. Maintaining good O2 saturations in the 90s on 5 L/min per nasal cannula. She is receiving normal saline at 50 mL/h. Her blood culture isshowing Enterococcus faecium. She is currently on daptomycin. Remains on bronchodilators. 1.2. Platelets 204. Sodium 144. Potassium 5.2. Bicarb 39. BUN 24. Creatinine 0.6. Glucose 153. Progress note dated July 08, 2024. The patient was moved down to the third floor, sometime yesterday or last night, for respiratory distress. I was never notified. The patient was seen today in room 360. She was on BiPAP, with settings of 12/5, and 40%. She was getting saline at 20 cc an hour. A blood gas was done on 44% oxygen showing a pO2 of 84, pCO2 of 91, pH is 7.29. Her blood cultures were positive for Enterococcus faecium. For that reason, she is on daptomycin. Current labs include a white count 7.8, hemoglobin 11.2, hematocrit 38.3, and a platelet count of 173,000. S odium 139, potassium 4.5, chlorides 93, CO2 40, BUN 29, and creatinine 0.58. Glucose 74. Albumin is 3. Chest x-ray done yesterday, continues to show me in addition, there is diffuse changes, consistent with fluid overload and/or pneumonia. On 07/09/2024, the patient is being seen for a follow-up. Morbidly obese female patient was hospitalized for an acute on top of chronic hypoxic and hypercapnic respiratory failure. At the time of my evaluation this morning, the patient was started on a BiPAP at a pressure of 12/5 with an FiO2 of 40%. I took the patient off the BiPAP and put her on 4 L of oxygen by nasal cannula. Subsequent blood gases showed a pH of 7.34 with pCO2 of 86 and pO2 162. The patient has a mass like consolidation involving the right lower lobe. This could be pneumonia versus malignancy. At the same time, the patient is septic and the source of sepsis is a wound infection and the patient has active wet wound with purulent foul-smelling material covering the wound base and the right lower extremity above the lateral malleolus. Blood culture was positive for Enterococcus faecalis and based on that, the patient has been maintained on a combination of daptomycin and the patient is also on IV cefepime. Repeat chest x-ray was done and it showed a right lower lobe masslike opacity that remains unchanged compared to the previous x-rays in addition to mild cardiomegaly and pulm vessel congestion. The patient is sitting daily diuresis. The patient is producing excellent urine output and the fluid balance is -2.6 L over the past 24 hours. The white cell count is 7.1 with a heme of 10.6 and a platelet count of 151. Serum bicarb is 44 with BUN of 29 and a creatinine of 0.5. Sodium is at 140. She remains encephalopathic. She is arousable. She has tolerated the BiPAP reasonably well. On 07/10/2024, the patient is being seen for a follow-up. The patient remains on BiPAP and she seems to be tolerating the BiPAP reasonably well. This morning, the patient is on a BiPAP at a pressure of 12 over 5 cm of water with an FiO2 of 40% which is essentially the same setting as yesterday. She is arousable and she is able to communicate. At times confused. I took this patient off the BiPAP and put her on oxygen at 5 L/min nasal cannula. Subsequent blood gases showed a pH of 7.33 with a pCO2 of 78 and pO2 of 129. She is still lethargic and weak. Denies having any chest pain. She does have swelling in lower extremities bilaterally. She was given IV Lasix yesterday and her fluid balance is -3.1 L over the past 24 hours. She remains on Bumex 1 mg p.o. daily. She is also on Diamox 5 mg IV every 12 hours. The blood work from today shows a BUN of 24 with a creatinine of 0.7. Serum bicarb is at 36 and a sodium levels at 140. The white cell count is 7.9 with a hemoglobin of 11.4 and a platelet count of 164. The follow-up chest x-ray from yesterday was still showing a masslike consolidation/opacity in the right midlung/right lower lobe area. The patient also has some ongoing mild cardiomegaly. Wound care is being applied. ID is on the case. The patient remains on daptomycin and IV cefepime. On 07/11/2024, the patient is being seen for a follow-up. Remains quite lethargic and continues to have diminished level of consciousness. She remains on a BiPAP at her same setting of 12 over 5 cm of water. Repeat blood gas was done with an FiO2 40% showed a pH of 7.36 with a pCO2 of 71 and pO2 of 83. The patient is however arousable. She continues to be treated for a extensive right lower extremity wound infection with septicemia the patient had Enterococcus faecium and she remains essentially same antibiotic coverage including combination of cefepime and daptomycin. On today's blood work, the white cell count is 7.4 with a hemoglobin 10.9 and a platelet count of 174. The sodium level is at 139, BUN is 28 with a creatinine of 0.6. Potassium is at 4 and a serum bicarb is at 39. She is on Diamox 500 mg IV every 12 hours. She is on Bumex 1 mg p.o. daily. Rest of the medications are essentially unchanged. No significant agitation. 07/12/2024, the patient is being seen for a follow-up. On today's evaluation, the patient is arousable and she is able to communicate. She does have some background encephalopathy and confusion. She is complaining of pain involving lower extremities the patient has extensive wounds in lower extremities bilaterally involving the lateral aspect of the lower extremities bilaterally above the ankle. The area was inspected today and the wound base is erythematous and less purulence. No foul drainage at this point in time. The patient was taken off the BiPAP this morning. The patient was placed on oxygen and she is currently at 60s over the nasal cannula. Repeat blood gas was done and the patient showed a pH of 7.35 with a pCO2 of 65 and pO2 of 52 and this was on FiO2 of 36%. The follow-up chest x-ray from today shows a masslike consolidation in the right lung which seems to be less dense and more hazy. There is also cardiomegaly and pulm vascular congestion with mild pulm vascular congestion. The white cell count is at 9, hemoglobin is 10.7 and a platelet count of 176. BUN is 34 with a creatinine of 0.6 and a sodium level is at 137. The patient is receiving Diamox to 50 mg p.o. daily. The patient remains on Lasix 40 mg IV push every 12 hours. The fluid balance is -1.7 L over the past 24 hours. The patient remains on broad-spectrum antibiotics. The patient is currently on cefepime and daptomycin. Rest of the medications remain unchanged. She remains on Aldactone 25 mg p.o. daily and trazodone at bedtime 50 mg nightly. 07/13/2024, the patient is being seen for a follow-up. Patient is awake and alert and communicating. Denies having any significant complaints other than pain in her back and lower extremities bilaterally. Neurologically, much more awake and alert and communicating. No signs of any CO2 narcosis. Remains on IV Lasix. Remains on Aldactone and Diamox. Most recent blood gas from yesterday showed marked improvement respiratory status. Current serum bicarb level is at 32, sodium is at 135 with a potassium level 3.9. The white cell count of 3.5 with a hemoglobin of 11 and a platelet count of 172. She is utilizing the BiPAP only overnight. Patient has adequate urine output. Denies having any other complaints. Tolerating the oral intake. No reported aspiration. Chest x-ray from yesterday still showing cardiomegaly and pulm vessel congestion in addition to a vague right midlung opacity that is being followed up by serial chest x- rays. She remains on a combination of cefepime and daptomycin. ID is on the case. She is still on a combination of Desyrel and Seroquel. 07/14/2024, the patient is being seen for a follow-up. Overnight, the patient was utilizing her BiPAP at a pressure of 12 over 5 cm of water. This morning, the patient is still on a BiPAP. She is arousable and awake. No significant events overnight. No chest pain. No focal neurological deficits. Remains on the same regimen of antibiotics and the patient remains on daptomycin. ID is on the case. She remains on diuretics. She is on IV Lasix 40 mg every 12 hours and Aldactone 25 mg p.o. daily. She is also on Diamox to 50 mg p.o. on a daily basis. Sodium levels at 132, potassium level is at 4.1, BUN 32 with a creatinine 0.8. The white cell count of 10.9 with a hemoglobin 12 and a platelet count of 206. She was transferred out of the intensive care unit yesterday. No fever. No chills. She is still undergoing wound care to her lower extremity wounds and ID is on the case. 07/15/2024, the patient is being seen for a follow-up. She did encounter some episodes of confusion yesterday. This morning she is on a BiPAP and I took her off the BiPAP and put her on 3 L of oxygen by nasal cannula. She seems to be much more appropriate. She remains on IV Lasix. She is also on Aldactone. Fluid balance is -1.7 L over the past 24 hours. No specific complaints. Antibiotics remain daptomycin. The white cell count is at 8.3, hemoglobin is 10 and platelet count of 206. BUN is at 30 with a creatinine of 0.600 serum bicarb level is at 37. No new complaints otherwise for now. Patient was seen today on 07/16/2024, patient was seen on follow-up, seems to be about the same, she is not confused today, she is intermittently on BiPAP, during my evaluation she was on 2 L nasal cannula, seems to be very appropriate, remains on diuretics including Lasix and Aldactone. She had a significant negative fluid balance over the last 24 hours. Remains on daptomycin for enterococcal infection. WBC count is 9 hemoglobin 11.6, basic metabolic profile is normal ABG from yesterday was noted and it showed a pO2 of 120 pCO2 73 pH of 7.33. Her chest x-ray today continues to show evidence of congestive heart failure with cardiomegaly and small bilateral pleural effusions there is evidence of right midlung mass highly suggestive of malignancy needs outpatient follow-up and possible bronc and biopsy Seen today on 07/17/2024, patient is feeling much better today compared to the prior days. Breathing easier, less shortness of breath, her mentation even seems to be improving. Remains on daptomycin for her enterococcal infection, s he is on 3 L nasal cannula, remains on diuretics including Lasix and Aldactone. Reviewed her previous CT of the chest, patient does have a lung mass suspicious for bronchogenic carcinoma however this will need outpatient follow-up. WBC count is 8.5 hemoglobin is 10.6 electrolytes are normal renal profile is normal bicarb is 39 Seen today on 07/18/2024, patient is feeling better today, she has good days and bad days but overall she is doing well, remains on antibiotics, remains on 5 L nasal cannula, O2 saturation is 100%. WBC count is 8.8 hemoglobin is 11 basic metabolic profile is normal bicarb is 40 renal profile is normal. Patient was seen today on, patient is about the same, steadily improving, remains on antibiotics as per infectious disease on the case. Remains on 5 L nasal cannula and she has O2 saturation in the high 90s. Denies shortness of breath denies any cough or wheezing. WBC count is 7.56 hemoglobin 10.7 electrolytes are normal bicarb is 14 BUN is 30 creatinine 1.06, remains on diuretics including Bumex 1 mg twice daily remains on metoprolol and Aldactone she is also on Eliquis. For paroxysmal atrial fibrillation. Seen today on 07/20/2024, clinically the patient is about the same, pulmonary knight about the same, remains on antibiotics for her sepsis and bacteremia as per infectious disease remains on diuretics remains on bronchodilators, overall the patient is steadily improving. Patient will need final clearance for discharge by infectious disease WBC is 7.7 hemoglobin is 11 electrolytes abnormal renal profile is normal reviewed the note from infectious disease, recommending patient to be switched to Zyvox 600 mg twice daily as of 07/18 and plan is to continue that for 1 week / 10 days of antibiotics on discharge. Seen today on 07/22/2024, patient is doing well, relatively asymptomatic, I believe the patient was cleared by all the consultants to be discharged to rehab, remains on 3 L nasal cannula, not in any distress O2 sats result 85 to 9 7%. No cough no wheezing no shortness of breath no chest pain. WBC count is 6.97 hemoglobin 11 electrolytes are normal renal profile is normal sugar is 179 Progress note dated July 23, 2024. 73-year-old female seen today in room 358. Currently, the patient is on 2 L of oxygen. She is not receiving any IV fluids. She is resting comfortably in bed. She is awake and alert. No distress. White count 7.24, hemoglobin 10.5, hematocrit 34.6, and platelet count 232,000. Sodium 134, potassium 4, chloride 87, CO2 38, BUN 32, and creatinine 0.85. Glucose is 176. Calcium 9.4. Albumin 3.1. Blood cultures from 05 July, show Enterococcus species. Objective - Vital Signs Vital signs: Vital Signs Temp 98 F 07/22/24 20:50 Pulse 80 07/23/24 12:17 Resp 16 07/23/24 12:17 BP 104/69 07/23/24 12:17 Pulse Ox 97 07/23/24 12:17 FiO2 40 07/23/24 08:03 Intake & Output 07/22/24 07/23/24 07/23/24 18:59 06:59 18:59 Intake Total 240 20 190 Output Total 2100 725 800 Balance -0280 -705 -618 Weight 91.5 kg Intake: IV 20 10 Invasive Line 1 20 10 Oral 240 180 Output: Urine 2100 725 800 Stool 0 Other: Voiding Method Indwelling Catheter Indwelling Catheter Indwelling Catheter - Exam No acute distress, awake and alert, currently on 2 L. HEENT examination is grossly unremarkable. Mucous membranes are moist. No oral lesions. Neck supple. Full range of motion. No adenopathy thyromegaly or neck vein distention. Cardiovascular examination reveals regular rhythm rate. S1-S2 normal. No S3 or S4. No discernible murmur noted. Heart sounds are distant. Lungs reveal bibasilar crackles. Scattered rhonchi are also noted. No wheezes. Breath sounds are equal bilaterally. Abdomen soft bowel sounds are heard. No masses or tenderness. Extremities are intact. No cyanosis or clubbing. Trace edema. Skin is without rash or lesion. Neurologic examination is brief but nonfocal. - Labs CBC & Chem 7: 07/23/24 04:46 07/23/24 04:46 Labs: Abnormal Lab Results - Last 24 Hours (Table) 07/22/24 07/22/24 07/23/24 Range/Units 16:04 20:08 04:46 RBC 3.60 L (4.10-5.20) 10*6/uL Hgb 10.5 L (12.0-15.0) g/dL Hct 34.6 L (37.2-46.3) % MCHC 30.3 L (32.0-37.0) g/dL Sodium (137-145) mmol/L Chloride (98-107) mmol/L Carbon Dioxide (22-30) mmol/L BUN (7-17) mg/dL Glucose (74-99) mg/dL POC Glucose (mg/dL) 214 H 185 H (70-110) mg/dL Total Protein (6.3-8.2) g/dL Albumin (3.5-5.0) g/dL 07/23/24 07/23/24 07/23/24 Range/Units 04:46 06:12 11:01 RBC (4.10-5.20) 10*6/uL Hgb (12.0-15.0) g/dL Hct (37.2-46.3) % MCHC (32.0-37.0) g/dL Sodium 134 L (137-145) mmol/L Chloride 87 L (98-107) mmol/L Carbon Dioxide 38 H (22-30) mmol/L BUN 32 H (7-17) mg/dL Glucose 176 H (74-99) mg/dL POC Glucose (mg/dL) 203 H 189 H (70-110) mg/dL Total Protein 5.7 L (6.3-8.2) g/dL Albumin 3.1 L (3.5-5.0) g/dL Assessment and Plan Assessment: Acute on chronic hypoxemic and hypercapnic respiratory failure, secondary to COPD, and congestive heart failure. Severe pulmonary hypertension. Probable COPD, from years of tobacco use. Lobulated mass, 7.1 cm, right midlung, possibly consistent with malignancy, given her previous smoking history. History of congestive heart failure. History of diabetes mellitus. History of gastroesophageal reflux disease. History of hyperlipidemia. History of hypothyroidism. Morbid obesity. Plan: Plan dated July 05, 2024. The patient is seen today in room 620. She is laying in bed, eating her breakfast. The patient is currently on 4 L of oxygen. The patient came in with a couple days worth of increasing shortness of breath, lower extremity edema. Chest x-ray and CT scan in my opinion are consistent with fluid overload. BNP was elevated. The patient was a heavy smoker for many years and may have a component of COPD as well. In addition, CT scan suggested a lobulated mass, measuring 7.1 cm in the right midlung. The patient will need an outpatient PET scan. Labs, x-rays, and medications are reviewed. Viral screen was negative. We will continue to follow. Procalcitonin level was 0.05. Dictation was produced using [employer] software. Please excuse any grammatical, word or spelling errors. Plan dated July 08, 2024. The patient was previously in the [facility]. She was admitted with a diagnosis of CHF, and lung mass. Sometime yesterday, she was moved down to the third floor. Our team was never notified. She was placed on BiPAP, and is currently on BiPAP, with settings of 12/5, and 40%. She is getting saline at 20 cc an hour. She continues on daptomycin for Enterococcus infection. Blood gases done yesterday show pO2 of 84, pCO2 of 91, pH is 7.29. The patient's procalcitonin level was normal. Labs, x-rays, and all medications are reviewed. The patient is overall prognosis remains guarded. We will continue to follow make recommendations along the way. Dictation was produced using [employer] software. Please excuse any grammatical, word or spelling errors. Plan dated July 23, 2024. The patient continues on oxygen, 2 L. She is feeling much better. The hope is that she will be discharged soon. She will need to follow-up with my partner post discharge, in relation to the mass, in the right chest. Additional recommendations and suggestions are forthcoming. Prognosis is certainly guarded. The patient should have an outpatient PET scan as well. All labs, x- rays, and medications are reviewed. We will continue to follow and offer recommendations, where appropriate. Dictation was produced using [employer] software. Please excuse any grammatical, word or spelling errors. Time with Patient: Less than 30
[2024-07-23 16:20] LABS: Glucose,Whole Blood 198 mg/dL (70-110)
--- NOTE | 2024-07-23 17:45 | P.PN ---
Subjective Progress Note Date: 07/23/24 Ajay Robertson, is a 73-year-old female who presented to [facility] emergency room with a chief complaint of worsening shortness of breath, additionally patient was found on the floor in her house, she stated that she fell while asleep and was not able to stand up. She was evaluated in the emergency room vital examination on presentation revealed a temperature of 98.3 pulse 89 respiration 20 blood pressure 115/73 pulse ox 95% on 5 L nasal cannula Laboratory data revealed a white blood count of 11.4 hemoglobin 12.7 platelet count 190 BUN 20 creatinine 0.64 influenza A and B RSV and COVID-19 PCR were all negative Testing in the emergency room revealed chest x-ray revealed pulmonary congestion suggestive of congestive heart failure exacerbation and a new 4.7 masslike consolidation in the right mid to lower lung Patient was admitted to medical floor for further evaluation and treatment Past medical history is significant for history of hypertension, history of hyperlipidemia, history of hypothyroidism, history of diabetes mellitus, history of COPD, history of congestive heart failure, history of morbid obesity, history of recurrent episodes of bilateral lower extremity cellulitis. On review of systems patient is alert and oriented x 3 in no apparent distress, she is complaining of generalized body ache, she is complaining of shortness of breath, otherwise she denies any complaints there is no fever or chills no headache or dizziness no chest pain, she has occasional cough no nausea or vomiting no abdominal pain no diarrhea and no urinary symptoms. On 07/05/2024 patient is alert and oriented x 3. Awaiting consulting providers input. Patient remains on IV Lasix. CT of the chest has been completed. At this time patient denies chest pain. Patient denies nausea vomiting or diarrhea. Patient denies any urinary burning or frequency On 07/06/2024 patient is alert and oriented x 3. Patient remains on IV Lasix and IV antibiotics. Cardiology pulmonary and infectious disease services are following. Current vital signs temp 98.1, heart rate 67, respiratory rate 15, blood pressure 96/53 with a pulse ox of 93% on 4 L. Patient denies chest pain or shortness of breath. Patient denies nausea vomiting or diarrhea. Patient denies any urinary burning or frequency. On 07/07/2024 patient was seen and examined on the telemetry floor she is somnolent arousable in no apparent distress, yesterday patient was agitated and aggressive with medical staff, Seroquel was added to her medication regimen, however today she is more somnolent, Seroquel will be changed to as needed only. There is no fever or chills no headache or dizziness no chest pain patient still has shortness of breath with any activity and cough no nausea or vomiting no abdominal pain no diarrhea no urinary symptoms. On 07/08/2024 patient was seen and examined on the telemetry floor, she is so mnolent responsive in no apparent distress, currently she is maintained on BiPAP, she had episodes of agitation through the night, she was pulling off her IV in the BiPAP, she received 1 dose of IM Haldol, she is maintained on soft restraints at this time, her vital examination reveals a temperature of 99.8 pulse 109 respiration 22 pulse ox 95% on BiPAP FiO2 40% she is maintained on IV daptomycin infectious disease are following On 07/09/2024 patient was seen and examined on the telemetry floor, she is somnolent responsive in no apparent distress, she is still having episodes of agitation requiring as needed Seroquel use, otherwise she is improving gradually, there is no fever or chills no headache or dizziness no chest pain, she has shortness of breath with any activity, no nausea or vomiting no abdominal pain no diarrhea and no urinary symptoms, she remains on IV antibiotics, infectious disease are following, also cardiology and pulmonary are following On 07/10/2024 patient remains somnolent on BiPAP. Pulmonary and infectious disease services following. Patient remains on IV antibiotics. Patient remains on IV Diamox. Current vital signs temp 99.8, heart rate 78, respiratory rate 18, blood pressure 123/69 with a pulse ox of 96% on BiPAP with an FiO2 of 40. On 07/11/2024 patient was seen and examined on the medical floor, she is alert responsive in no apparent distress, she was maintained on BiPAP through the night, there is no fever or chills no headache or dizziness no chest pain no shortness of breath at rest, she has occasional cough and severe shortness of breath with any activity no nausea or vomiting no abdominal pain no diarrhea no urinary symptoms. On 07/12/2024 patient is alert but remains confused. Patient remains in the ICU. Patient was on BiPAP for 6 hours. Patient did require Precedex for increased agitation. Patient remains on IV cefepime and Diamox. Along with scheduled Bumex. Colace added for constipation. Patient denies chest pain. Patient denies nausea vomiting or diarrhea. Patient denies any urinary burning frequency On 07/13/2024 patient is more alert today. Per nursing staff plans for HANNA due to bacteremia. Current vital signs temp 99.0, heart rate 92, respiratory rate 25, blood pressure 125/69 with a pulse ox of 97% on 6 L. Patient denies chest pain. Patient denies nausea vomiting or diarrhea. Patient denies any urinary burning or frequency. Patient remains on Diamox and IV Maxipime. On 07/14/2024 patient was seen and examined on the telemetry floor, she is alert and oriented x 3 in no apparent distress, during the night patient required BiPAP, she had an episode of agitation and she received IM Haldol, yesterday e vening patient had an episode of atrial fibrillation with rapid ventricular response, she received IV Cardizem, and her rhythm converted back to normal sinus rhythm. Otherwise no issues since yesterday, patient denies any chest pain, there is no shortness of breath at rest, no fever or chills no headache or dizziness no palpitation, no nausea or vomiting no abdominal pain no diarrhea and no urinary symptoms. On 07/15/2024 patient is alert and oriented x 3. Patient's mentation improved. Patient denies chest pain or shortness of breath. Patient denies nausea vomiting or diarrhea. Patient denies any urinary burning or frequency. Current vital signs temp 97.8, heart 94, respiratory 20, blood pressure 122/58 with a pulse ox of 93% on 3 L. Patient remains on daptomycin and gentamicin. On 07/16/2024 patient was seen and examined on the telemetry floor, she is alert and oriented x 3 in no apparent distress, there is no fever or chills no headache or dizziness, no chest pain, she has shortness of breath with any activity she has occasional cough no nausea or vomiting no abdominal pain no diarrhea no blood in the stool, no urinary symptoms. Rock catheter remains in, bilateral lower extremity wrapping and protective boots are on. Vital exam reveals a temperature of 98.1 pulse 86 respiration 18 blood pressure 113/74 pulse ox 98% on 6 L nasal cannula. White blood count is 9.0 hemoglobin 11.6 platelet count 246 sodium 135 potassium 4.0 chloride 98 CO2 34 BUN 22 creatinine 0.62 On 07/17/2024 patient currently resting comfortably on BiPAP. Neurology services have been consulted for altered mental status. Patient remains on IV daptomycin and gentamicin. Pulmonary, cardiology, infectious disease and neurology services consulted. Current vital signs temp 97.9, heart rate 79, respiratory rate 16, blood pressure 127/79 with pulse ox 98% on 6 L. On 07/18/2024 patient was seen and examined on the medical floor she is alert and oriented x 3 in no apparent distress she is maintained on oxygen 4 L nasal cannula there is no fever or chills no headache or dizziness no chest pain no shortness of breath at rest patient has shortness of breath with any activity no nausea or vomiting no abdominal pain no diarrhea and no urinary symptoms On 07/19/2024 patient is alert and oriented x 3. Patient currently on nasal cannula 5 L. Patient had HANNA done was negative. Per neurology note patient refusing head CT at this time. Will consult oncology services due to concerns of lung mass discharge planning to [facility]. Patient denies chest pain. Patient denies nausea vomiting or diarrhea. Patient denies any urinary burning or frequency On 07/20/2024 patient is alert and oriented x 3. MRI of the brain has been ordered per oncology services. Discharge planning to [facility]. Per ID recommendations for Zyvox for 10 days. Patient denies chest pain or shortness of breath. Patient denies nausea vomiting or diarrhea. Patient denies any urinary burning or frequency. 0.7, heart rate 80, respiratory rate 16, blood pressure 113/73 with pulse ox of 96% on 3 L On 07/21/2024 patient was seen and examined on the medical floor she is alert and oriented x 3 in no apparent distress, there is no fever or chills no headache or dizziness no chest pain no shortness of breath no cough no nausea or vomiting no abdominal pain no diarrhea and no urinary symptoms. Patient is scheduled for brain MRI today, will continue to follow closely On 07/22/2024 patient is alert and oriented x 3. Patient had MRI yesterday showing no suspicious changes to suggest intracranial metastatic disease moderately advanced chronic appearing periventricular and deep white matter ischemic type changes. Discharge planning to [facility]. Patient denies chest pain or shortness of breath. Patient denies nausea vomiting or diarrhea. Patient denies any urinary burning or frequency On 07/23/2024 patient was seen and examined on the medical floor she is alert and oriented x 3 in no apparent distress there is no fever or chills no headache or dizziness no chest pain her shortness of breath is improving there is no nausea or vomiting no abdominal pain no diarrhea no burning with urination no frequency or urgency. Patient had pinkish colored urine in her Rock catheter bag. Rock catheter was removed today will check postvoid residual continue with physical therapy possible discharge in the next 1 to 2 days Objective - Vital Signs Vital signs: Vital Signs Temp 98 F 07/22/24 20:50 Pulse 86 07/23/24 15:21 Resp 16 07/23/24 15:21 BP 126/70 07/23/24 15:21 Pulse Ox 97 07/23/24 15:21 FiO2 40 07/23/24 08:03 Intake & Output 07/22/24 07/23/24 07/23/24 18:59 06:59 18:59 Intake Total 240 20 370 Output Total 2100 725 800 Balance -1860 -705 -430 Weight 91.5 kg Intake: IV 20 10 Invasive Line 1 20 10 Oral 240 360 Output: Urine 2100 725 800 Stool 0 Other: Voiding Method Indwelling Catheter Indwelling Catheter Indwelling Catheter - Exam In general patient is alert and oriented x 3 in no distress HEENT head normocephalic and atraumatic Neck is supple no JVD no goiter no lymphadenopathy no carotid bruit Chest examination reveals a scattered crackles bilaterally no wheezing Cardiac exam reveals regular heart sounds S1 and S2 no gallops no murmurs Abdomen is soft nontender no organomegaly with normal bowel sounds Extremity exam reveals 3+ edema with erythema and chronic stasis changes, multiple small ulceration with scabbing no cyanosis or clubbing Neurological examination reveals no gross focal deficits - Labs CBC & Chem 7: 07/23/24 04:46 07/23/24 04:46 Labs: Abnormal Lab Results - Last 24 Hours (Table) 07/22/24 07/23/24 07/23/24 Range/Units 20:08 04:46 04:46 RBC 3.60 L (4.10-5.20) 10*6/uL Hgb 10.5 L (12.0-15.0) g/dL Hct 34.6 L (37.2-46.3) % MCHC 30.3 L (32.0-37.0) g/dL Sodium 134 L (137-145) mmol/L Chloride 87 L (98-107) mmol/L Carbon Dioxide 38 H (22-30) mmol/L BUN 32 H (7-17) mg/dL Glucose 176 H (74-99) mg/dL POC Glucose (mg/dL) 185 H (70-110) mg/dL Total Protein 5.7 L (6.3-8.2) g/dL Albumin 3.1 L (3.5-5.0) g/dL 07/23/24 07/23/24 07/23/24 Range/Units 06:12 11:01 16:19 RBC (4.10-5.20) 10*6/uL Hgb (12.0-15.0) g/dL Hct (37.2-46.3) % MCHC (32.0-37.0) g/dL Sodium (137-145) mmol/L Chloride (98-107) mmol/L Carbon Dioxide (22-30) mmol/L BUN (7-17) mg/dL Glucose (74-99) mg/dL POC Glucose (mg/dL) 203 H 189 H 198 H (70-110) mg/dL Total Protein (6.3-8.2) g/dL Albumin (3.5-5.0) g/dL Assessment and Plan Plan: Acute congestive heart failure exacerbation Bacteremia New 4.7 cm masslike consolidation opacity in the right midlung Fall at home, with generalized body pain Bilateral lower extremity cellulitis, with multiple open ulcers Underlying history of hypertension Underlying history of hyperlipidemia Underlying history of diabetes mellitus Underlying history of COPD Underlying history of morbid obesity At this time patient was admitted to telemetry floor Patient has been transferred out of the intensive care unit Remains on IV antibiotics Continue BiPAP Consultation for pulmonary, infectious disease, and cardiology initiated Will follow closely
[2024-07-23 19:57] LABS: Glucose,Whole Blood 248 mg/dL (70-110)
--- NOTE | 2024-07-23 20:29 | P.PN ---
Subjective Progress Note Date: 07/23/24 Principal diagnosis: lung mass In follow-up today patient is reporting that she is anxious to go home, she is tired of laying in bed. Her bilateral lower extremities are still painful at times, the wound on her right heel makes it hard for her to get around. She denies any fever, nausea or vomiting, no new neurological symptoms Objective - Vital Signs Vital signs: Vital Signs Temp 98 F 07/22/24 20:50 Pulse 80 07/23/24 12:17 Resp 16 07/23/24 12:17 BP 104/69 07/23/24 12:17 Pulse Ox 97 07/23/24 12:17 FiO2 40 07/23/24 08:03 Intake & Output 07/22/24 07/23/24 07/23/24 18:59 06:59 18:59 Intake Total 240 20 190 Output Total 2100 725 800 Balance -1860 -705 -610 Weight 91.5 kg Intake: IV 20 10 Invasive Line 1 20 10 Oral 240 180 Output: Urine 2100 725 800 Stool 0 Other: Voiding Method Indwelling Catheter Indwelling Catheter Indwelling Catheter - Constitutional General appearance: Present: cooperative, no acute distress, obese - EENT Eyes: Present: anicteric sclerae, EOMI ENT: Present: hearing grossly normal, normal oropharynx - Respiratory Details: Respirations unlabored at rest - Cardiovascular Details: Skin warm, well-perfused - Neurologic Neurologic: Present: CNII-XII intact (Grossly) - Musculoskeletal Musculoskeletal: Present: generalized weakness - Psychiatric Psychiatric: Present: A&O x's 3 - Labs CBC & Chem 7: 07/23/24 04:46 07/23/24 04:46 Labs: Abnormal Lab Results - Last 24 Hours (Table) 07/22/24 07/22/24 07/23/24 Range/Units 16:04 20:08 04:46 RBC 3.60 L (4.10-5.20) 10*6/uL Hgb 10.5 L (12.0-15.0) g/dL Hct 34.6 L (37.2-46.3) % MCHC 30.3 L (32.0-37.0) g/dL Sodium (137-145) mmol/L Chloride (98-107) mmol/L Carbon Dioxide (22-30) mmol/L BUN (7-17) mg/dL Glucose (74-99) mg/dL POC Glucose (mg/dL) 214 H 185 H (70-110) mg/dL Total Protein (6.3-8.2) g/dL Albumin (3.5-5.0) g/dL 07/23/24 07/23/24 07/23/24 Range/Units 04:46 06:12 11:01 RBC (4.10-5.20) 10*6/uL Hgb (12.0-15.0) g/dL Hct (37.2-46.3) % MCHC (32.0-37.0) g/dL Sodium 134 L (137-145) mmol/L Chloride 87 L (98-107) mmol/L Carbon Dioxide 38 H (22-30) mmol/L BUN 32 H (7-17) mg/dL Glucose 176 H (74-99) mg/dL POC Glucose (mg/dL) 203 H 189 H (70-110) mg/dL Total Protein 5.7 L (6.3-8.2) g/dL Albumin 3.1 L (3.5-5.0) g/dL Assessment and Plan (1) Lung mass Current Visit: Yes Status: Acute Priority: High Code(s): R91.8 - OTHER NONSPECIFIC ABNORMAL FINDING OF LUNG FIELD SNOMED Code(s): 851421215 Plan: Lung mass -CT chest with contrast performed 07/05/2024 reports lobulated anterior right upper/middle lobe, peripheral pulmonary mass measuring 7.1 x 3.8 cm. Few small mediastinal lymph nodes. No osseous abnormalities. CT AP without contrast showed no acute abnormality in the pelvis or abdomen. -Pulmonary notes reviewed. Concerns for malignancy versus a masslike pneumonia that needs to be followed up. It is my impression that plans are to treat for her current situation and follow-up with possibly a PET scan and then plan for biopsy from there. -MRI of the brain was neg, patient is still confused at times. - Left supraclavicular swollen persists. US did not reveal any mass. - We will follow along with you and pending plans for further workup once patient's acute condition is adequately treated Doctor attests: I performed a history and physical examination of this patient, developed impression and plan of care. Discussed with dictator. I agree with dictators note, documented as a scribe.
--- NOTE | 2024-07-23 21:10 | P.PN ---
Subjective Progress Note Date: 07/23/24 Principal diagnosis: Reason for follow-up with lower extremity ulcer and cellulitis Patient is a 73-year-old female with a past medical history significant for COPD heart failure diabetes mellitus reflux hyperlipidemia presenting to the hospital for evaluation of a fall that happened the day of presentation to the hospital patient accidentally rolled off the couch onto the floor and was too weak to get herself up, noticed to have bilateral extremity ulcer and cellulitis prompted this consultation. On today's evaluation that is 07/23/2024, patient has been afebrile, patient is breathing comfortably and is currently on nasal oxygen, patient denies having any chest pain and no worsening cough, patient denies nausea vomiting or diarrhea and no abdominal pain. Patient white count 7.24, creatinine 0.85 blood culture repeat has been negative Objective - Vital Signs Vital signs: Vital Signs Temp 98 F 07/22/24 20:50 Pulse 89 07/23/24 09:25 Resp 18 07/23/24 09:25 BP 96/64 07/23/24 09:25 Pulse Ox 91 L 07/23/24 11:27 FiO2 40 07/23/24 08:03 Intake & Output 07/22/24 07/23/24 07/23/24 18:59 06:59 18:59 Intake Total 240 20 190 Output Total 2100 725 800 Balance -1860 -705 -610 Weight 91.5 kg Intake: IV 20 10 Invasive Line 1 20 10 Oral 240 180 Output: Urine 2100 725 800 Stool 0 Other: Voiding Method Indwelling Catheter Indwelling Catheter Indwelling Catheter - Exam GENERAL DESCRIPTION: An elderly female lying in bed in no distress RESPIRATORY SYSTEM: Unlabored breathing , decreased breath sounds at bases HEART: S1 S2 regular rate and rhythm , ABDOMEN: Soft , no tenderness EXTREMITIES: Bilateral lower extremity currently wrapped with an Blue wrap no drainage - Labs CBC & Chem 7: 07/23/24 04:46 07/23/24 04:46 Labs: Abnormal Lab Results - Last 24 Hours (Table) 07/22/24 07/22/24 07/23/24 Range/Units 16:04 20:08 04:46 RBC 3.60 L (4.10-5.20) 10*6/uL Hgb 10.5 L (12.0-15.0) g/dL Hct 34.6 L (37.2-46.3) % MCHC 30.3 L (32.0-37.0) g/dL Sodium (137-145) mmol/L Chloride (98-107) mmol/L Carbon Dioxide (22-30) mmol/L BUN (7-17) mg/dL Glucose (74-99) mg/dL POC Glucose (mg/dL) 214 H 185 H (70-110) mg/dL Total Protein (6.3-8.2) g/dL Albumin (3.5-5.0) g/dL 07/23/24 07/23/24 07/23/24 Range/Units 04:46 06:12 11:01 RBC (4.10-5.20) 10*6/uL Hgb (12.0-15.0) g/dL Hct (37.2-46.3) % MCHC (32.0-37.0) g/dL Sodium 134 L (137-145) mmol/L Chloride 87 L (98-107) mmol/L Carbon Dioxide 38 H (22-30) mmol/L BUN 32 H (7-17) mg/dL Glucose 176 H (74-99) mg/dL POC Glucose (mg/dL) 203 H 189 H (70-110) mg/dL Total Protein 5.7 L (6.3-8.2) g/dL Albumin 3.1 L (3.5-5.0) g/dL Assessment and Plan (1) Leg ulcer, left Current Visit: Yes Status: Acute Code(s): L97.929 - NON-PRS CHRONIC ULC UNSP PRT OF L LOW LEG W UNSP SEVERITY SNOMED Code(s): 63008837 (2) Left leg cellulitis Current Visit: Yes Status: Acute Code(s): L03.116 - CELLULITIS OF LEFT LOWER LIMB SNOMED Code(s): 39448563509708331 (3) Penicillin allergy Current Visit: Yes Status: Acute Code(s): Z88.0 - ALLERGY STATUS TO PENICILLIN SNOMED Code(s): 18155097 (4) Bacteremia Current Visit: Yes Status: Acute Code(s): R78.81 - BACTEREMIA SNOMED Code(s): 0523285 Plan: 1patient with diffuse swelling of bilateral lower extremity with superficial solution to the left leg likely venous stasis ulcer with secondary cellulitis likely from gram-positive skin neida. 2patient with a penicillin allergy that will limit the number of antibiotics safe to use. 3local wound care to the left leg with dry Aquacel dressing and Blue wrap to keep the swelling down, and apply Santyl to the wound to the right heel change daily. 4patient did have resolution of the fever and white count is normal however the patient blood culture repeat came back positive highly clinically suspicious for possible endovascular source such as endocarditis 5patient CT of the abdominal pelvis did not show any acute findings UA was negative, patient did have a HANNA that was negative for any vegetation 7patient has shown clinical improvement currently be treated with oral Zyvox and seem to be responding to it waiting for placement. Dictation was produced using [employer] dictation software. please excuse any grammatical, word or spelling errors. Time with Patient: Less than 30
[2024-07-24 06:10] LABS: Glucose,Whole Blood 194 mg/dL (70-110)
[2024-07-24 11:32] LABS: Glucose,Whole Blood 202 mg/dL (70-110)
--- NOTE | 2024-07-24 12:07 | P.PN ---
Subjective Progress Note Date: 07/24/24 Principal diagnosis: Shortness of breath. This is a 73-year-old obese white female today seen in room 620. She came to the hospital with 1 day of shortness of breath, leg swelling, and cough. Her viral screen was negative. The patient has smoked for about 40 to 45 years. The only medicine she takes at home for her breathing is albuterol. Her procalcitonin level was 0.05. Chest x-ray showed some fluid overload, but also showed a possible mass in the right midlung, which could be either an actual mass or pseudotumor. A CT scan was ordered. It does show a 7.1 lobulated mass in the right lung. A PET scan was recommended. Currently, the patient is on 4 L of oxygen. No fluids are ordered. She is getting Lasix 40 mg every 8 hours. She also has an updraft ordered. White count 1.22, hemoglobin 11.3, macro 39.1, platelet count 185,000. Coags are normal. Sodium 141, potassium 4.3, chlorides 94, CO2 39, BUN 17.5, creatinine 0.9. Glucose 169. Calcium 8.6. Troponin was negative. N-terminal proBNP was elevated at 1830. Procalcitonin level was 0.05. Urine is negative. Viral screen was negative. Chest x-ray was consistent with fluid overload/CHF. Cardiology has seen the patient. The patient is seen today July 06, 2024 in follow-up on the regular medical floor. She is currently sitting up in bed. Awake and alert in no acute distress. She is maintaining O2 saturations in the 90s on 4 L/min per nasal cannula. She is receiving normal saline at 75 mL/h. White count 10.2. Hemoglobin 11.5. Platelets 198. Sodium 134. Potassium 4.5. Bicarb 38. BUN 29. Creatinine 0.83. Glucose 132. She remains on cefazolin. IV diuretics were discontinued. The patient is seen today July 07, 2024 in follow-up on the regular medical floor. She is currently resting comfortably in bed. Awake and alert in no acute distress. Maintaining good O2 saturations in the 90s on 5 L/min per nasal cannula. She is receiving normal saline at 50 mL/h. Her blood culture isshowing Enterococcus faecium. She is currently on daptomycin. Remains on bronchodilators. 1.2. Platelets 204. Sodium 144. Potassium 5.2. Bicarb 39. BUN 24. Creatinine 0.6. Glucose 153. Progress note dated July 08, 2024. The patient was moved down to the third floor, sometime yesterday or last night, for respiratory distress. I was never notified. The patient was seen today in room 360. She was on BiPAP, with settings of 12/5, and 40%. She was getting saline at 20 cc an hour. A blood gas was done on 44% oxygen showing a pO2 of 84, pCO2 of 91, pH is 7.29. Her blood cultures were positive for Enterococcus faecium. For that reason, she is on daptomycin. Current labs include a white count 7.8, hemoglobin 11.2, hematocrit 38.3, and a platelet count of 173,000. S odium 139, potassium 4.5, chlorides 93, CO2 40, BUN 29, and creatinine 0.58. Glucose 74. Albumin is 3. Chest x-ray done yesterday, continues to show me in addition, there is diffuse changes, consistent with fluid overload and/or pneumonia. On 07/09/2024, the patient is being seen for a follow-up. Morbidly obese female patient was hospitalized for an acute on top of chronic hypoxic and hypercapnic respiratory failure. At the time of my evaluation this morning, the patient was started on a BiPAP at a pressure of 12/5 with an FiO2 of 40%. I took the patient off the BiPAP and put her on 4 L of oxygen by nasal cannula. Subsequent blood gases showed a pH of 7.34 with pCO2 of 86 and pO2 162. The patient has a mass like consolidation involving the right lower lobe. This could be pneumonia versus malignancy. At the same time, the patient is septic and the source of sepsis is a wound infection and the patient has active wet wound with purulent foul-smelling material covering the wound base and the right lower extremity above the lateral malleolus. Blood culture was positive for Enterococcus faecalis and based on that, the patient has been maintained on a combination of daptomycin and the patient is also on IV cefepime. Repeat chest x-ray was done and it showed a right lower lobe masslike opacity that remains unchanged compared to the previous x-rays in addition to mild cardiomegaly and pulm vessel congestion. The patient is sitting daily diuresis. The patient is producing excellent urine output and the fluid balance is -2.6 L over the past 24 hours. The white cell count is 7.1 with a heme of 10.6 and a platelet count of 151. Serum bicarb is 44 with BUN of 29 and a creatinine of 0.5. Sodium is at 140. She remains encephalopathic. She is arousable. She has tolerated the BiPAP reasonably well. On 07/10/2024, the patient is being seen for a follow-up. The patient remains on BiPAP and she seems to be tolerating the BiPAP reasonably well. This morning, the patient is on a BiPAP at a pressure of 12 over 5 cm of water with an FiO2 of 40% which is essentially the same setting as yesterday. She is arousable and she is able to communicate. At times confused. I took this patient off the BiPAP and put her on oxygen at 5 L/min nasal cannula. Subsequent blood gases showed a pH of 7.33 with a pCO2 of 78 and pO2 of 129. She is still lethargic and weak. Denies having any chest pain. She does have swelling in lower extremities bilaterally. She was given IV Lasix yesterday and her fluid balance is -3.1 L over the past 24 hours. She remains on Bumex 1 mg p.o. daily. She is also on Diamox 5 mg IV every 12 hours. The blood work from today shows a BUN of 24 with a creatinine of 0.7. Serum bicarb is at 36 and a sodium levels at 140. The white cell count is 7.9 with a hemoglobin of 11.4 and a platelet count of 164. The follow-up chest x-ray from yesterday was still showing a masslike consolidation/opacity in the right midlung/right lower lobe area. The patient also has some ongoing mild cardiomegaly. Wound care is being applied. ID is on the case. The patient remains on daptomycin and IV cefepime. On 07/11/2024, the patient is being seen for a follow-up. Remains quite lethargic and continues to have diminished level of consciousness. She remains on a BiPAP at her same setting of 12 over 5 cm of water. Repeat blood gas was done with an FiO2 40% showed a pH of 7.36 with a pCO2 of 71 and pO2 of 83. The patient is however arousable. She continues to be treated for a extensive right lower extremity wound infection with septicemia the patient had Enterococcus faecium and she remains essentially same antibiotic coverage including combination of cefepime and daptomycin. On today's blood work, the white cell count is 7.4 with a hemoglobin 10.9 and a platelet count of 174. The sodium level is at 139, BUN is 28 with a creatinine of 0.6. Potassium is at 4 and a serum bicarb is at 39. She is on Diamox 500 mg IV every 12 hours. She is on Bumex 1 mg p.o. daily. Rest of the medications are essentially unchanged. No significant agitation. 07/12/2024, the patient is being seen for a follow-up. On today's evaluation, the patient is arousable and she is able to communicate. She does have some background encephalopathy and confusion. She is complaining of pain involving lower extremities the patient has extensive wounds in lower extremities bilaterally involving the lateral aspect of the lower extremities bilaterally above the ankle. The area was inspected today and the wound base is erythematous and less purulence. No foul drainage at this point in time. The patient was taken off the BiPAP this morning. The patient was placed on oxygen and she is currently at 60s over the nasal cannula. Repeat blood gas was done and the patient showed a pH of 7.35 with a pCO2 of 65 and pO2 of 52 and this was on FiO2 of 36%. The follow-up chest x-ray from today shows a masslike consolidation in the right lung which seems to be less dense and more hazy. There is also cardiomegaly and pulm vascular congestion with mild pulm vascular congestion. The white cell count is at 9, hemoglobin is 10.7 and a platelet count of 176. BUN is 34 with a creatinine of 0.6 and a sodium level is at 137. The patient is receiving Diamox to 50 mg p.o. daily. The patient remains on Lasix 40 mg IV push every 12 hours. The fluid balance is -1.7 L over the past 24 hours. The patient remains on broad-spectrum antibiotics. The patient is currently on cefepime and daptomycin. Rest of the medications remain unchanged. She remains on Aldactone 25 mg p.o. daily and trazodone at bedtime 50 mg nightly. 07/13/2024, the patient is being seen for a follow-up. Patient is awake and alert and communicating. Denies having any significant complaints other than pain in her back and lower extremities bilaterally. Neurologically, much more awake and alert and communicating. No signs of any CO2 narcosis. Remains on IV Lasix. Remains on Aldactone and Diamox. Most recent blood gas from yesterday showed marked improvement respiratory status. Current serum bicarb level is at 32, sodium is at 135 with a potassium level 3.9. The white cell count of 3.5 with a hemoglobin of 11 and a platelet count of 172. She is utilizing the BiPAP only overnight. Patient has adequate urine output. Denies having any other complaints. Tolerating the oral intake. No reported aspiration. Chest x-ray from yesterday still showing cardiomegaly and pulm vessel congestion in addition to a vague right midlung opacity that is being followed up by serial chest x- rays. She remains on a combination of cefepime and daptomycin. ID is on the case. She is still on a combination of Desyrel and Seroquel. 07/14/2024, the patient is being seen for a follow-up. Overnight, the patient was utilizing her BiPAP at a pressure of 12 over 5 cm of water. This morning, the patient is still on a BiPAP. She is arousable and awake. No significant events overnight. No chest pain. No focal neurological deficits. Remains on the same regimen of antibiotics and the patient remains on daptomycin. ID is on the case. She remains on diuretics. She is on IV Lasix 40 mg every 12 hours and Aldactone 25 mg p.o. daily. She is also on Diamox to 50 mg p.o. on a daily basis. Sodium levels at 132, potassium level is at 4.1, BUN 32 with a creatinine 0.8. The white cell count of 10.9 with a hemoglobin 12 and a platelet count of 206. She was transferred out of the intensive care unit yesterday. No fever. No chills. She is still undergoing wound care to her lower extremity wounds and ID is on the case. 07/15/2024, the patient is being seen for a follow-up. She did encounter some episodes of confusion yesterday. This morning she is on a BiPAP and I took her off the BiPAP and put her on 3 L of oxygen by nasal cannula. She seems to be much more appropriate. She remains on IV Lasix. She is also on Aldactone. Fluid balance is -1.7 L over the past 24 hours. No specific complaints. Antibiotics remain daptomycin. The white cell count is at 8.3, hemoglobin is 10 and platelet count of 206. BUN is at 30 with a creatinine of 0.600 serum bicarb level is at 37. No new complaints otherwise for now. Patient was seen today on 07/16/2024, patient was seen on follow-up, seems to be about the same, she is not confused today, she is intermittently on BiPAP, during my evaluation she was on 2 L nasal cannula, seems to be very appropriate, remains on diuretics including Lasix and Aldactone. She had a significant negative fluid balance over the last 24 hours. Remains on daptomycin for enterococcal infection. WBC count is 9 hemoglobin 11.6, basic metabolic profile is normal ABG from yesterday was noted and it showed a pO2 of 120 pCO2 73 pH of 7.33. Her chest x-ray today continues to show evidence of congestive heart failure with cardiomegaly and small bilateral pleural effusions there is evidence of right midlung mass highly suggestive of malignancy needs outpatient follow-up and possible bronc and biopsy Seen today on 07/17/2024, patient is feeling much better today compared to the prior days. Breathing easier, less shortness of breath, her mentation even seems to be improving. Remains on daptomycin for her enterococcal infection, s he is on 3 L nasal cannula, remains on diuretics including Lasix and Aldactone. Reviewed her previous CT of the chest, patient does have a lung mass suspicious for bronchogenic carcinoma however this will need outpatient follow-up. WBC count is 8.5 hemoglobin is 10.6 electrolytes are normal renal profile is normal bicarb is 39 Seen today on 07/18/2024, patient is feeling better today, she has good days and bad days but overall she is doing well, remains on antibiotics, remains on 5 L nasal cannula, O2 saturation is 100%. WBC count is 8.8 hemoglobin is 11 basic metabolic profile is normal bicarb is 40 renal profile is normal. Patient was seen today on, patient is about the same, steadily improving, remains on antibiotics as per infectious disease on the case. Remains on 5 L nasal cannula and she has O2 saturation in the high 90s. Denies shortness of breath denies any cough or wheezing. WBC count is 7.56 hemoglobin 10.7 electrolytes are normal bicarb is 14 BUN is 30 creatinine 1.06, remains on diuretics including Bumex 1 mg twice daily remains on metoprolol and Aldactone she is also on Eliquis. For paroxysmal atrial fibrillation. Seen today on 07/20/2024, clinically the patient is about the same, pulmonary knight about the same, remains on antibiotics for her sepsis and bacteremia as per infectious disease remains on diuretics remains on bronchodilators, overall the patient is steadily improving. Patient will need final clearance for discharge by infectious disease WBC is 7.7 hemoglobin is 11 electrolytes abnormal renal profile is normal reviewed the note from infectious disease, recommending patient to be switched to Zyvox 600 mg twice daily as of 07/18 and plan is to continue that for 1 week / 10 days of antibiotics on discharge. Seen today on 07/22/2024, patient is doing well, relatively asymptomatic, I believe the patient was cleared by all the consultants to be discharged to rehab, remains on 3 L nasal cannula, not in any distress O2 sats result 85 to 9 7%. No cough no wheezing no shortness of breath no chest pain. WBC count is 6.97 hemoglobin 11 electrolytes are normal renal profile is normal sugar is 179 Progress note dated July 23, 2024. 73-year-old female seen today in room 358. Currently, the patient is on 2 L of oxygen. She is not receiving any IV fluids. She is resting comfortably in bed. She is awake and alert. No distress. White count 7.24, hemoglobin 10.5, hematocrit 34.6, and platelet count 232,000. Sodium 134, potassium 4, chloride 87, CO2 38, BUN 32, and creatinine 0.85. Glucose is 176. Calcium 9.4. Albumin 3.1. Blood cultures from 05 July, show Enterococcus species. Progress note dated July 24, 2024. 73-year-old female, seen today again in room 358. Currently, the patient is resting comfortably in bed. She continues on nasal O2 at 3 L. She is not receiving any IV fluids. She did not use the BiPAP device last night. It can be discontinued from the room. No New Labs Today Other Than a Glucose of 202. Blood cultures from July 05, show evidence of Enterococcus species. No recent chest x-ray to report. Objective - Vital Signs Vital signs: Vital Signs Temp 98.2 F 07/24/24 11:00 Pulse 78 07/24/24 11:00 Resp 16 07/24/24 11:00 BP 120/71 07/24/24 11:00 Pulse Ox 95 07/24/24 11:00 FiO2 40 07/23/24 08:03 Intake & Output 07/23/24 07/24/24 07/24/24 18:59 06:59 18:59 Intake Total 370 Output Total 950 750 700 Balance -580 -750 -700 Intake: IV 10 Invasive Line 1 10 Oral 360 Output: Urine 950 750 700 Stool 0 Other: Voiding Method External Catheter External Catheter External Catheter # Voids 1 # Bowel Movements 1 - Exam No acute distress, awake and alert, currently on 3 L. HEENT examination is grossly unremarkable. Mucous membranes are moist. No oral lesions. Neck supple. Full range of motion. No adenopathy thyromegaly or neck vein distention. Cardiovascular examination reveals regular rhythm rate. S1-S2 normal. No S3 or S4. No discernible murmur noted. Heart sounds are distant. Lungs reveal bibasilar crackles. Scattered rhonchi are also noted. No wheezes. Breath sounds are equal bilaterally. Abdomen soft bowel sounds are heard. No masses or tenderness. Extremities are intact. No cyanosis or clubbing. Trace edema. Skin is without rash or lesion. Neurologic examination is brief but nonfocal. - Labs CBC & Chem 7: 07/23/24 04:46 07/23/24 04:46 Labs: Abnormal Lab Results - Last 24 Hours (Table) 07/23/24 07/23/24 07/24/24 Range/Units 16:19 19:55 06:09 POC Glucose (mg/dL) 198 H 248 H 194 H (70-110) mg/dL 07/24/24 Range/Units 11:31 POC Glucose (mg/dL) 202 H (70-110) mg/dL Assessment and Plan Assessment: Acute on chronic hypoxemic and hypercapnic respiratory failure, secondary to COPD, and congestive heart failure. Severe pulmonary hypertension. Probable COPD, from years of tobacco use. Lobulated mass, 7.1 cm, right midlung, possibly consistent with malignancy, given her previous smoking history. History of congestive heart failure. History of diabetes mellitus. History of gastroesophageal reflux disease. History of hyperlipidemia. History of hypothyroidism. Morbid obesity. Plan: Plan dated July 05, 2024. The patient is seen today in room 620. She is laying in bed, eating her breakfast. The patient is currently on 4 L of oxygen. The patient came in with a couple days worth of increasing shortness of breath, lower extremity edema. C hest x-ray and CT scan in my opinion are consistent with fluid overload. BNP was elevated. The patient was a heavy smoker for many years and may have a component of COPD as well. In addition, CT scan suggested a lobulated mass, measuring 7.1 cm in the right midlung. The patient will need an outpatient PET scan. Labs, x-rays, and medications are reviewed. Viral screen was negative. We will continue to follow. Procalcitonin level was 0.05. Dictation was produced using [employer] software. Please excuse any grammatical, word or spelling errors. Plan dated July 08, 2024. The patient was previously in the [facility]. She was admitted with a diagnosis of CHF, and lung mass. Sometime yesterday, she was moved down to the third floor. Our team was never notified. She was placed on BiPAP, and is currently on BiPAP, with settings of 12/5, and 40%. She is getting saline at 20 cc an hour. She continues on daptomycin for Enterococcus infection. Blood gases done yesterday show pO2 of 84, pCO2 of 91, pH is 7.29. The patient's procalcitonin level was normal. Labs, x-rays, and all medications are reviewed. The patient is overall prognosis remains guarded. We will continue to follow make recommendations along the way. Dictation was produced using [employer] software. Please excuse any grammatical, word or spelling errors. Plan dated July 23, 2024. The patient continues on oxygen, 2 L. She is feeling much better. The hope is that she will be discharged soon. She will need to follow-up with my partner post discharge, in relation to the mass, in the right chest. Additional recommendations and suggestions are forthcoming. Prognosis is certainly gua rded. The patient should have an outpatient PET scan as well. All labs, x- rays, and medications are reviewed. We will continue to follow and offer recommendations, where appropriate. Dictation was produced using [employer] software. Please excuse any grammatical, word or spelling errors. Plan dated July 24, 2024. The patient continues on oxygen therapy. She is at 3 L. She did not use the BiPAP device last night, and it can be discontinued from the room. Her labs, x- rays, and medications are reviewed. The patient is feeling much better. The patient is awaiting discharge. I do not think any determination has been made as yet, where this patient might go. We will continue to follow make recommendations. The patient needs an outpatient PET scan, as mentioned above. Prognosis is guarded. Dictation was produced using [employer] software. Please excuse any grammatical, word or spelling errors. Time with Patient: Less than 30
[2024-07-24 12:52] VITALS: BMI 35.7
--- NOTE | 2024-07-24 12:54 | P.PN ---
Subjective Progress Note Date: 07/24/24 Ajay Robertson, is a 73-year-old female who presented to [facility] emergency room with a chief complaint of worsening shortness of breath, additionally patient was found on the floor in her house, she stated that she fell while asleep and was not able to stand up. She was evaluated in the emergency room vital examination on presentation revealed a temperature of 98.3 pulse 89 respiration 20 blood pressure 115/73 pulse ox 95% on 5 L nasal cannula Laboratory data revealed a white blood count of 11.4 hemoglobin 12.7 platelet count 190 BUN 20 creatinine 0.64 influenza A and B RSV and COVID-19 PCR were all negative Testing in the emergency room revealed chest x-ray revealed pulmonary congestion suggestive of congestive heart failure exacerbation and a new 4.7 masslike consolidation in the right mid to lower lung Patient was admitted to medical floor for further evaluation and treatment Past medical history is significant for history of hypertension, history of hyperlipidemia, history of hypothyroidism, history of diabetes mellitus, history of COPD, history of congestive heart failure, history of morbid obesity, history of recurrent episodes of bilateral lower extremity cellulitis. On review of systems patient is alert and oriented x 3 in no apparent distress, she is complaining of generalized body ache, she is complaining of shortness of breath, otherwise she denies any complaints there is no fever or chills no headache or dizziness no chest pain, she has occasional cough no nausea or vomiting no abdominal pain no diarrhea and no urinary symptoms. On 07/05/2024 patient is alert and oriented x 3. Awaiting consulting providers input. Patient remains on IV Lasix. CT of the chest has been completed. At this time patient denies chest pain. Patient denies nausea vomiting or diarrhea. Patient denies any urinary burning or frequency On 07/06/2024 patient is alert and oriented x 3. Patient remains on IV Lasix and IV antibiotics. Cardiology pulmonary and infectious disease services are following. Current vital signs temp 98.1, heart rate 67, respiratory rate 15, blood pressure 96/53 with a pulse ox of 93% on 4 L. Patient denies chest pain or shortness of breath. Patient denies nausea vomiting or diarrhea. Patient denies any urinary burning or frequency. On 07/07/2024 patient was seen and examined on the telemetry floor she is somnolent arousable in no apparent distress, yesterday patient was agitated and aggressive with medical staff, Seroquel was added to her medication regimen, however today she is more somnolent, Seroquel will be changed to as needed only. There is no fever or chills no headache or dizziness no chest pain patient still has shortness of breath with any activity and cough no nausea or vomiting no abdominal pain no diarrhea no urinary symptoms. On 07/08/2024 patient was seen and examined on the telemetry floor, she is so mnolent responsive in no apparent distress, currently she is maintained on BiPAP, she had episodes of agitation through the night, she was pulling off her IV in the BiPAP, she received 1 dose of IM Haldol, she is maintained on soft restraints at this time, her vital examination reveals a temperature of 99.8 pulse 109 respiration 22 pulse ox 95% on BiPAP FiO2 40% she is maintained on IV daptomycin infectious disease are following On 07/09/2024 patient was seen and examined on the telemetry floor, she is somnolent responsive in no apparent distress, she is still having episodes of agitation requiring as needed Seroquel use, otherwise she is improving gradually, there is no fever or chills no headache or dizziness no chest pain, she has shortness of breath with any activity, no nausea or vomiting no abdominal pain no diarrhea and no urinary symptoms, she remains on IV antibiotics, infectious disease are following, also cardiology and pulmonary are following On 07/10/2024 patient remains somnolent on BiPAP. Pulmonary and infectious disease services following. Patient remains on IV antibiotics. Patient remains on IV Diamox. Current vital signs temp 99.8, heart rate 78, respiratory rate 18, blood pressure 123/69 with a pulse ox of 96% on BiPAP with an FiO2 of 40. On 07/11/2024 patient was seen and examined on the medical floor, she is alert responsive in no apparent distress, she was maintained on BiPAP through the night, there is no fever or chills no headache or dizziness no chest pain no shortness of breath at rest, she has occasional cough and severe shortness of breath with any activity no nausea or vomiting no abdominal pain no diarrhea no urinary symptoms. On 07/12/2024 patient is alert but remains confused. Patient remains in the ICU. Patient was on BiPAP for 6 hours. Patient did require Precedex for increased agitation. Patient remains on IV cefepime and Diamox. Along with scheduled Bumex. Colace added for constipation. Patient denies chest pain. Patient denies nausea vomiting or diarrhea. Patient denies any urinary burning frequency On 07/13/2024 patient is more alert today. Per nursing staff plans for HANNA due to bacteremia. Current vital signs temp 99.0, heart rate 92, respiratory rate 25, blood pressure 125/69 with a pulse ox of 97% on 6 L. Patient denies chest pain. Patient denies nausea vomiting or diarrhea. Patient denies any urinary burning or frequency. Patient remains on Diamox and IV Maxipime. On 07/14/2024 patient was seen and examined on the telemetry floor, she is alert and oriented x 3 in no apparent distress, during the night patient required BiPAP, she had an episode of agitation and she received IM Haldol, yesterday e vening patient had an episode of atrial fibrillation with rapid ventricular response, she received IV Cardizem, and her rhythm converted back to normal sinus rhythm. Otherwise no issues since yesterday, patient denies any chest pain, there is no shortness of breath at rest, no fever or chills no headache or dizziness no palpitation, no nausea or vomiting no abdominal pain no diarrhea and no urinary symptoms. On 07/15/2024 patient is alert and oriented x 3. Patient's mentation improved. Patient denies chest pain or shortness of breath. Patient denies nausea vomiting or diarrhea. Patient denies any urinary burning or frequency. Current vital signs temp 97.8, heart 94, respiratory 20, blood pressure 122/58 with a pulse ox of 93% on 3 L. Patient remains on daptomycin and gentamicin. On 07/16/2024 patient was seen and examined on the telemetry floor, she is alert and oriented x 3 in no apparent distress, there is no fever or chills no headache or dizziness, no chest pain, she has shortness of breath with any activity she has occasional cough no nausea or vomiting no abdominal pain no diarrhea no blood in the stool, no urinary symptoms. Rock catheter remains in, bilateral lower extremity wrapping and protective boots are on. Vital exam reveals a temperature of 98.1 pulse 86 respiration 18 blood pressure 113/74 pulse ox 98% on 6 L nasal cannula. White blood count is 9.0 hemoglobin 11.6 platelet count 246 sodium 135 potassium 4.0 chloride 98 CO2 34 BUN 22 creatinine 0.62 On 07/17/2024 patient currently resting comfortably on BiPAP. Neurology services have been consulted for altered mental status. Patient remains on IV daptomycin and gentamicin. Pulmonary, cardiology, infectious disease and neurology services consulted. Current vital signs temp 97.9, heart rate 79, respiratory rate 16, blood pressure 127/79 with pulse ox 98% on 6 L. On 07/18/2024 patient was seen and examined on the medical floor she is alert and oriented x 3 in no apparent distress she is maintained on oxygen 4 L nasal cannula there is no fever or chills no headache or dizziness no chest pain no shortness of breath at rest patient has shortness of breath with any activity no nausea or vomiting no abdominal pain no diarrhea and no urinary symptoms On 07/19/2024 patient is alert and oriented x 3. Patient currently on nasal cannula 5 L. Patient had HANNA done was negative. Per neurology note patient refusing head CT at this time. Will consult oncology services due to concerns of lung mass discharge planning to [facility]. Patient denies chest pain. Patient denies nausea vomiting or diarrhea. Patient denies any urinary burning or frequency On 07/20/2024 patient is alert and oriented x 3. MRI of the brain has been ordered per oncology services. Discharge planning to [facility]. Per ID recommendations for Zyvox for 10 days. Patient denies chest pain or shortness of breath. Patient denies nausea vomiting or diarrhea. Patient denies any urinary burning or frequency. 0.7, heart rate 80, respiratory rate 16, blood pressure 113/73 with pulse ox of 96% on 3 L On 07/21/2024 patient was seen and examined on the medical floor she is alert and oriented x 3 in no apparent distress, there is no fever or chills no headache or dizziness no chest pain no shortness of breath no cough no nausea or vomiting no abdominal pain no diarrhea and no urinary symptoms. Patient is scheduled for brain MRI today, will continue to follow closely On 07/22/2024 patient is alert and oriented x 3. Patient had MRI yesterday showing no suspicious changes to suggest intracranial metastatic disease moderately advanced chronic appearing periventricular and deep white matter ischemic type changes. Discharge planning to [facility]. Patient denies chest pain or shortness of breath. Patient denies nausea vomiting or diarrhea. Patient denies any urinary burning or frequency On 07/23/2024 patient was seen and examined on the medical floor she is alert and oriented x 3 in no apparent distress there is no fever or chills no headache or dizziness no chest pain her shortness of breath is improving there is no nausea or vomiting no abdominal pain no diarrhea no burning with urination no frequency or urgency. Patient had pinkish colored urine in her Rock catheter bag. Rock catheter was removed today will check postvoid residual continue with physical therapy possible discharge in the next 1 to 2 days On 07/24/2024 patient is alert and oriented x 3 per case management awaiting insurance authorization. Patient denies chest pain or shortness of breath. Patient denies nausea vomiting or diarrhea. Denies any urinary burning or frequency. Current vital signs temp 97.7, heart rate 69, respiratory 17, blood pressure 100/62 with pulse ox 95% on room air Objective - Vital Signs Vital signs: Vital Signs Temp 98.2 F 07/24/24 11:00 Pulse 78 07/24/24 11:00 Resp 16 07/24/24 11:00 BP 120/71 07/24/24 11:00 Pulse Ox 95 07/24/24 11:00 FiO2 40 07/23/24 08:03 Intake & Output 07/23/24 07/24/24 07/24/24 18:59 06:59 18:59 Intake Total 370 Output Total 950 750 700 Balance -580 -750 -700 Weight 91.5 kg Intake: IV 10 Invasive Line 1 10 Oral 360 Output: Urine 950 750 700 Stool 0 Other: Voiding Method External Catheter External Catheter External Catheter # Voids 1 # Bowel Movements 1 - Exam In general patient is alert and oriented x 3 in no distress HEENT head normocephalic and atraumatic Neck is supple no JVD no goiter no lymphadenopathy no carotid bruit Chest examination reveals a scattered crackles bilaterally no wheezing Cardiac exam reveals regular heart sounds S1 and S2 no gallops no murmurs Abdomen is soft nontender no organomegaly with normal bowel sounds Extremity exam reveals 3+ edema with erythema and chronic stasis changes, multiple small ulceration with scabbing no cyanosis or clubbing Neurological examination reveals no gross focal deficits - Labs CBC & Chem 7: 07/23/24 04:46 07/23/24 04:46 Labs: Abnormal Lab Results - Last 24 Hours (Table) 07/23/24 07/23/24 07/24/24 Range/Units 16:19 19:55 06:09 POC Glucose (mg/dL) 198 H 248 H 194 H (70-110) mg/dL 07/24/24 Range/Units 11:31 POC Glucose (mg/dL) 202 H (70-110) mg/dL Assessment and Plan Plan: Acute congestive heart failure exacerbation Bacteremia New 4.7 cm masslike consolidation opacity in the right midlung Fall at home, with generalized body pain Bilateral lower extremity cellulitis, with multiple open ulcers Underlying history of hypertension Underlying history of hyperlipidemia Underlying history of diabetes mellitus Underlying history of COPD Underlying history of morbid obesity At this time patient was admitted to telemetry floor Patient has been transferred out of the intensive care unit Remains on IV antibiotics Continue BiPAP Consultation for pulmonary, infectious disease, and cardiology initiated Will follow closely
--- NOTE | 2024-07-24 14:22 | P.PN ---
Subjective Progress Note Date: 07/24/24 Principal diagnosis: Reason for follow-up with lower extremity ulcer and cellulitis Patient is a 73-year-old female with a past medical history significant for COPD heart failure diabetes mellitus reflux hyperlipidemia presenting to the hospital for evaluation of a fall that happened the day of presentation to the hospital patient accidentally rolled off the couch onto the floor and was too weak to get herself up, noticed to have bilateral extremity ulcer and cellulitis prompted this consultation. On today's evaluation that is 07/24/2024, Patient is afebrile this morning patient denies having any chest pain shortness of breath or cough, the patient is currently on 3 L nasal oxygen patient denies any abdominal pain no diarrhea no nausea no vomiting. No new lab has been obtained today Objective - Vital Signs Vital signs: Vital Signs Temp 98.2 F 07/24/24 11:00 Pulse 78 07/24/24 11:00 Resp 16 07/24/24 11:00 BP 120/71 07/24/24 11:00 Pulse Ox 95 07/24/24 11:00 FiO2 40 07/23/24 08:03 Intake & Output 07/23/24 07/24/24 07/24/24 18:59 06:59 18:59 Intake Total 370 Output Total 950 750 700 Balance -580 -750 -700 Weight 91.5 kg Intake: IV 10 Invasive Line 1 10 Oral 360 Output: Urine 950 750 700 Stool 0 Other: Voiding Method External Catheter External Catheter External Catheter # Voids 1 # Bowel Movements 1 - Exam GENERAL DESCRIPTION: An elderly female lying in bed in no distress RESPIRATORY SYSTEM: Unlabored breathing , decreased breath sounds at bases HEART: S1 S2 regular rate and rhythm , ABDOMEN: Soft , no tenderness EXTREMITIES: Bilateral lower extremity currently wrapped with an Blue wrap no drainage - Labs CBC & Chem 7: 07/23/24 04:46 07/23/24 04:46 Labs: Abnormal Lab Results - Last 24 Hours (Table) 07/23/24 07/23/24 07/24/24 Range/Units 16:19 19:55 06:09 POC Glucose (mg/dL) 198 H 248 H 194 H (70-110) mg/dL 07/24/24 Range/Units 11:31 POC Glucose (mg/dL) 202 H (70-110) mg/dL Assessment and Plan (1) Leg ulcer, left Current Visit: Yes Status: Acute Code(s): L97.929 - NON-PRS CHRONIC ULC UNSP PRT OF L LOW LEG W UNSP SEVERITY SNOMED Code(s): 07546443 (2) Left leg cellulitis Current Visit: Yes Status: Acute Code(s): L03.116 - CELLULITIS OF LEFT LOWER LIMB SNOMED Code(s): 90009649805056040 (3) Penicillin allergy Current Visit: Yes Status: Acute Code(s): Z88.0 - ALLERGY STATUS TO PENICILLIN SNOMED Code(s): 73408915 (4) Bacteremia Current Visit: Yes Status: Acute Code(s): R78.81 - BACTEREMIA SNOMED Code(s): 9380039 Plan: 1patient with diffuse swelling of bilateral lower extremity with superficial solution to the left leg likely venous stasis ulcer with secondary cellulitis likely from gram-positive skin neida. 2patient with a penicillin allergy that will limit the number of antibiotics safe to use. 3local wound care to the left leg with dry Aquacel dressing and Blue wrap to ke ep the swelling down, and apply Santyl to the wound to the right heel change daily. 4patient did have resolution of the fever and white count is normal however the patient blood culture repeat came back positive highly clinically suspicious for possible endovascular source such as endocarditis 5patient CT of the abdominal pelvis did not show any acute findings UA was negative, patient did have a HANNA that was negative for any vegetation 7patient has shown clinical improvement and will be treated with oral Zyvox currently waiting for placement. Dictation was produced using [employer] dictation software. please excuse any grammatical, word or spelling errors. Time with Patient: Less than 30
[2024-07-24 16:30] LABS: Glucose,Whole Blood 193 mg/dL (70-110)
[2024-07-24 19:59] LABS: Glucose,Whole Blood 233 mg/dL (70-110)
[2024-07-25 06:16] LABS: Glucose,Whole Blood 203 mg/dL (70-110)
[2024-07-25 11:25] VITALS: BP 109/65; RESP 18; TEMP 98
[2024-07-25 11:45] LABS: Glucose,Whole Blood 175 mg/dL (70-110)
--- NOTE | 2024-07-25 13:02 | P.DS ---
Providers Date of admission: 07/04/24 12:28 Expected date of discharge: 07/25/24 Attending physician: Shalom Gray Consults: 07/04/24 16:00 Consult Physician Routine Consulting Provider: Mervin Fermin Consult Reason/Comments: CHF Do you want consulting provider notified?: Yes 07/05/24 07:12 Consult Physician Routine Consulting Provider: Christelle Yuen Consult Reason/Comments: lung mass Do you want consulting provider notified?: Yes 07/05/24 07:13 Consult Physician Routine Consulting Provider: Abrahan Godwin Consult Reason/Comments: LE cellulitis Do you want consulting provider notified?: Yes 07/16/24 16:40 Consult Physician Routine Consulting Provider: Lionel Davis Consult Reason/Comments: recurrent AMS Do you want consulting provider notified?: Yes 07/19/24 09:13 Consult Physician Routine Consulting Provider: Geremias Rossi Consult Reason/Comments: lung mass Do you want consulting provider notified?: Yes Primary care physician: Shalom Gray [facility] Course: Diagnosis on discharge: Acute congestive heart failure exacerbation Bacteremia New 4.7 cm masslike consolidation opacity in the right midlung Fall at home, with generalized body pain Bilateral lower extremity cellulitis, with multiple open ulcers Underlying history of hypertension Underlying history of hyperlipidemia Underlying history of diabetes mellitus Underlying history of COPD Underlying history of morbid obesity Hospital course: Ajay Robertson, is a 73-year-old female who presented to [facility] emergency room with a chief complaint of worsening shortness of breath, additionally patient was found on the floor in her house, she stated that she fell while asleep and was not able to stand up. She was evaluated in the emergency room vital examination on presentation revealed a temperature of 98.3 pulse 89 respiration 20 blood pressure 115/73 pulse ox 95% on 5 L nasal cannula Laboratory data revealed a white blood count of 11.4 hemoglobin 12.7 platelet count 190 BUN 20 creatinine 0.64 influenza A and B RSV and COVID-19 PCR were all negative Testing in the emergency room revealed chest x-ray revealed pulmonary congestion suggestive of congestive heart failure exacerbation and a new 4.7 masslike consolidation in the right mid to lower lung Patient was admitted to medical floor for further evaluation and treatment Past medical history is significant for history of hypertension, history of hyperlipidemia, history of hypothyroidism, history of diabetes mellitus, history of COPD, history of congestive heart failure, history of morbid obesity, history of recurrent episodes of bilateral lower extremity cellulitis. On review of systems patient is alert and oriented x 3 in no apparent distress, she is complaining of generalized body ache, she is complaining of shortness of breath, otherwise she denies any complaints there is no fever or chills no headache or dizziness no chest pain, she has occasional cough no nausea or vomiting no abdominal pain no diarrhea and no urinary symptoms. On 07/05/2024 patient is alert and oriented x 3. Awaiting consulting providers input. Patient remains on IV Lasix. CT of the chest has been completed. At this time patient denies chest pain. Patient denies nausea vomiting or diarrhea. Patient denies any urinary burning or frequency On 07/06/2024 patient is alert and oriented x 3. Patient remains on IV Lasix and IV antibiotics. Cardiology pulmonary and infectious disease services are following. Current vital signs temp 98.1, heart rate 67, respiratory rate 15, blood pressure 96/53 with a pulse ox of 93% on 4 L. Patient denies chest pain or shortness of breath. Patient denies nausea vomiting or diarrhea. Patient denies any urinary burning or frequency. On 07/07/2024 patient was seen and examined on the telemetry floor she is somnolent arousable in no apparent distress, yesterday patient was agitated and aggressive with medical staff, Seroquel was added to her medication regimen, however today she is more somnolent, Seroquel will be changed to as needed only. There is no fever or chills no headache or dizziness no chest pain patient still has shortness of breath with any activity and cough no nausea or vomiting no abdominal pain no diarrhea no urinary symptoms. On 07/08/2024 patient was seen and examined on the telemetry floor, she is somnolent responsive in no apparent distress, currently she is maintained on BiPAP, she had episodes of agitation through the night, she was pulling off her IV in the BiPAP, she received 1 dose of IM Haldol, she is maintained on soft restraints at this time, her vital examination reveals a temperature of 99.8 pulse 109 respiration 22 pulse ox 95% on BiPAP FiO2 40% she is maintained on IV daptomycin infectious disease are following On 07/09/2024 patient was seen and examined on the telemetry floor, she is somnolent responsive in no apparent distress, she is still having episodes of agitation requiring as needed Seroquel use, otherwise she is improving gradually, there is no fever or chills no headache or dizziness no chest pain, she has shortness of breath with any activity, no nausea or vomiting no abdominal pain no diarrhea and no urinary symptoms, she remains on IV antibiotics, infectious disease are following, also cardiology and pulmonary are following On 07/10/2024 patient remains somnolent on BiPAP. Pulmonary and infectious disease services following. Patient remains on IV antibiotics. Patient remains on IV Diamox. Current vital signs temp 99.8, heart rate 78, respiratory rate 18, blood pressure 123/69 with a pulse ox of 96% on BiPAP with an FiO2 of 40. On 07/11/2024 patient was seen and examined on the medical floor, she is alert responsive in no apparent distress, she was maintained on BiPAP through the night, there is no fever or chills no headache or dizziness no chest pain no shortness of breath at rest, she has occasional cough and severe shortness of breath with any activity no nausea or vomiting no abdominal pain no diarrhea no urinary symptoms. On 07/12/2024 patient is alert but remains confused. Patient remains in the ICU. Patient was on BiPAP for 6 hours. Patient did require Precedex for increased agitation. Patient remains on IV cefepime and Diamox. Along with scheduled Bumex. Colace added for constipation. Patient denies chest pain. Patient denies nausea vomiting or diarrhea. Patient denies any urinary burning frequency On 07/13/2024 patient is more alert today. Per nursing staff plans for HANNA due to bacteremia. Current vital signs temp 99.0, heart rate 92, respiratory rate 25, blood pressure 125/69 with a pulse ox of 97% on 6 L. Patient denies chest pain. Patient denies nausea vomiting or diarrhea. Patient denies any urinary burning or frequency. Patient remains on Diamox and IV Maxipime. On 07/14/2024 patient was seen and examined on the telemetry floor, she is alert and oriented x 3 in no apparent distress, during the night patient required BiPAP, she had an episode of agitation and she received IM Haldol, yesterday evening patient had an episode of atrial fibrillation with rapid ventricular response, she received IV Cardizem, and her rhythm converted back to normal sinus rhythm. Otherwise no issues since yesterday, patient denies any chest pain, there is no shortness of breath at rest, no fever or chills no headache or dizziness no palpitation, no nausea or vomiting no abdominal pain no diarrhea and no urinary symptoms. On 07/15/2024 patient is alert and oriented x 3. Patient's mentation improved. Patient denies chest pain or shortness of breath. Patient denies nausea vomiting or diarrhea. Patient denies any urinary burning or frequency. Current vital signs temp 97.8, heart 94, respiratory 20, blood pressure 122/58 with a pulse ox of 93% on 3 L. Patient remains on daptomycin and gentamicin. On 07/16/2024 patient was seen and examined on the telemetry floor, she is alert and oriented x 3 in no apparent distress, there is no fever or chills no headache or dizziness, no chest pain, she has shortness of breath with any activity she has occasional cough no nausea or vomiting no abdominal pain no diarrhea no blood in the stool, no urinary symptoms. Rock catheter remains in, bilateral lower extremity wrapping and protective boots are on. Vital exam reveals a temperature of 98.1 pulse 86 respiration 18 blood pressure 113/74 pulse ox 98% on 6 L nasal cannula. White blood count is 9.0 hemoglobin 11.6 platelet count 246 sodium 135 potassium 4.0 chloride 98 CO2 34 BUN 22 creatinine 0.62 On 07/17/2024 patient currently resting comfortably on BiPAP. Neurology services have been consulted for altered mental status. Patient remains on IV daptomycin and gentamicin. Pulmonary, cardiology, infectious disease and neurology services consulted. Current vital signs temp 97.9, heart rate 79, respiratory rate 16, blood pressure 127/79 with pulse ox 98% on 6 L. On 07/18/2024 patient was seen and examined on the medical floor she is alert and oriented x 3 in no apparent distress she is maintained on oxygen 4 L nasal cannula there is no fever or chills no headache or dizziness no chest pain no shortness of breath at rest patient has shortness of breath with any activity no nausea or vomiting no abdominal pain no diarrhea and no urinary symptoms On 07/19/2024 patient is alert and oriented x 3. Patient currently on nasal cannula 5 L. Patient had HANNA done was negative. Per neurology note patient refusing head CT at this time. Will consult oncology services due to concerns of lung mass discharge planning to [facility]. Patient denies chest pain. Patient denies nausea vomiting or diarrhea. Patient denies any urinary burning or frequency On 07/20/2024 patient is alert and oriented x 3. MRI of the brain has been ordered per oncology services. Discharge planning to [facility]. Per ID recommendations for Zyvox for 10 days. Patient denies chest pain or shortness of breath. Patient denies nausea vomiting or diarrhea. Patient denies any urinary burning or frequency. 0.7, heart rate 80, respiratory rate 16, blood pressure 113/73 with pulse ox of 96% on 3 L On 07/21/2024 patient was seen and examined on the medical floor she is alert and oriented x 3 in no apparent distress, there is no fever or chills no headache or dizziness no chest pain no shortness of breath no cough no nausea or vomiting no abdominal pain no diarrhea and no urinary symptoms. Patient is scheduled for brain MRI today, will continue to follow closely On 07/22/2024 patient is alert and oriented x 3. Patient had MRI yesterday showing no suspicious changes to suggest intracranial metastatic disease moderately advanced chronic appearing periventricular and deep white matter ischemic type changes. Discharge planning to [facility]. Patient denies chest pain or shortness of breath. Patient denies nausea vomiting or diarrhea. Patient denies any urinary burning or frequency On 07/23/2024 patient was seen and examined on the medical floor she is alert and oriented x 3 in no apparent distress there is no fever or chills no headache or dizziness no chest pain her shortness of breath is improving there is no nausea or vomiting no abdominal pain no diarrhea no burning with urination no frequency or urgency. Patient had pinkish colored urine in her Rock catheter bag. Rock catheter was removed today will check postvoid residual continue with physical therapy possible discharge in the next 1 to 2 days On 07/24/2024 patient is alert and oriented x 3 per case management awaiting i nsurance authorization. Patient denies chest pain or shortness of breath. Patient denies nausea vomiting or diarrhea. Denies any urinary burning or frequency. Current vital signs temp 97.7, heart rate 69, respiratory 17, blood pressure 100/62 with pulse ox 95% on room air On 07/25/2024 patient was seen and examined on the medical floor she is alert and oriented x 3 in no apparent distress there is no fever or chills no headache or dizziness no chest pain no shortness of breath at rest no cough no nausea or vomiting no abdominal pain no diarrhea and no urinary symptoms. Plan is to discharge patient to [facility] on the [facility] for rehabilitation today. Case was discussed with Dr. Godwin infectious disease, his recommendation is to continue Zyvox for 10 more days. Will follow in the office after discharge from [facility] for further evaluation of lung mass. Plan - Discharge Summary New Discharge Prescriptions: New Spironolactone [Aldactone] 25 mg PO DAILY 30 Days #30 tab Docusate [Colace] 100 mg PO DAILY 30 Days #30 cap Folic Acid 1 mg PO DAILY 30 Days #30 tab INSULIN LISPRO (HumaLOG) [HumaLOG] 0 unit SQ ACHS 30 Days #1 each Metoprolol Tartrate [Lopressor] 25 mg PO BID 30 Days #60 tab Bumetanide [BUMEX] 1 mg PO BID@0900,1600 30 Days #60 tab acetaZOLAMIDE [Diamox] 250 mg PO DAILY 30 Days #30 tab Apixaban [Eliquis] 5 mg PO BID 30 Days #60 tab QUEtiapine [SEROquel] 25 mg PO HS 30 Days #30 tab QUEtiapine [SEROquel] 12.5 mg PO TID PRN 90 Days #30 tab PRN Reason: Agitation Or Acute Psychosis Linezolid [Zyvox] 600 mg PO Q12HR 10 Days #20 tab Continue Albuterol Inhaler [Ventolin Hfa Inhaler] 1 - 2 puff INHALATION RT-Q6H PRN PRN Reason: Dyspnea HYDROcodone/APAP 10-325MG [Richmond 10-325] 1 tab PO TID PRN PRN Reason: Pain Ergocalciferol [Vitamin D2 (1250 Mcg = 68062 Iu)] 1,250 mcg PO MO Enalapril [Vasotec] 20 mg PO DAILY traZODone HCL [Desyrel] 50 mg PO HS Changed Insulin Glargine,Hum.rec.anlog [Lantus Solostar Pen] 35 units SQ DAILY #0 Discontinued Furosemide [Lasix] 20 mg PO DAILY@1830 Furosemide [Lasix] 40 mg PO QAM Phentermine HCl [Adipex-P] 37.5 mg PO DAILY Rosuvastatin [Crestor] 20 mg PO DAILY Discharge Medication List Albuterol Inhaler [Ventolin Hfa Inhaler] 1 - 2 puff INHALATION RT-Q6H PRN 01/08/15 [History] Enalapril [Vasotec] 20 mg PO DAILY 07/04/24 [History] Ergocalciferol [Vitamin D2 (1250 Mcg = 79945 Iu)] 1,250 mcg PO MO 07/04/24 [History] HYDROcodone/APAP 10-325MG [Richmond 10-325] 1 tab PO TID PRN 07/04/24 [History] traZODone HCL [Desyrel] 50 mg PO HS 07/04/24 [History] Apixaban [Eliquis] 5 mg PO BID 30 Days #60 tab 07/25/24 [Rx] Bumetanide [BUMEX] 1 mg PO BID@0900,1600 30 Days #60 tab 07/25/24 [Rx] Docusate [Colace] 100 mg PO DAILY 30 Days #30 cap 07/25/24 [Rx] Folic Acid 1 mg PO DAILY 30 Days #30 tab 07/25/24 [Rx] INSULIN LISPRO (HumaLOG) [HumaLOG] 0 unit SQ ACHS 30 Days #1 each 07/25/24 [Rx] Insulin Glargine,Hum.rec.anlog [Lantus Solostar Pen] 35 units SQ DAILY #0 07/25/24 [Rx] Linezolid [Zyvox] 600 mg PO Q12HR 10 Days #20 tab 07/25/24 [Rx] Metoprolol Tartrate [Lopressor] 25 mg PO BID 30 Days #60 tab 07/25/24 [Rx] QUEtiapine [SEROquel] 12.5 mg PO TID PRN 90 Days #30 tab 07/25/24 [Rx] QUEtiapine [SEROquel] 25 mg PO HS 30 Days #30 tab 07/25/24 [Rx] Spironolactone [Aldactone] 25 mg PO DAILY 30 Days #30 tab 07/25/24 [Rx] acetaZOLAMIDE [Diamox] 250 mg PO DAILY 30 Days #30 tab 07/25/24 [Rx] Follow up Appointment(s)/Referral(s): Emiliano Davis DO [Doctor of Osteopathic Medicine] - 1 Week Shalom Gray MD [Primary Care Provider] - 1-2 days Sadi Alarcon MD [STAFF PHYSICIAN] - 2 Weeks
--- NOTE | 2024-07-25 13:23 | P.PN ---
Subjective Progress Note Date: 07/25/24 Principal diagnosis: lung mass In follow-up today patient is reporting that she is going to rehab, her friend is at bedside. She denies any fever, nausea or vomiting, no new neurological symptoms Objective - Vital Signs Vital signs: Vital Signs Temp 98 F 07/25/24 11:23 Pulse 76 07/25/24 11:23 Resp 18 07/25/24 11:23 BP 109/65 07/25/24 11:23 Pulse Ox 94 L 07/25/24 11:23 FiO2 40 07/23/24 08:03 Intake & Output 07/24/24 07/25/24 07/25/24 18:59 06:59 18:59 Intake Total 10 240 Output Total 1100 400 0 Balance -1100 -390 240 Weight 91.5 kg Intake: IV 10 0.9 10 Oral 240 Output: Urine 1100 400 Stool 0 0 Other: Voiding Method External Catheter External Catheter External Catheter # Voids 1 # Bowel Movements 1 - Constitutional General appearance: Present: cooperative, no acute distress, obese - EENT Eyes: Present: anicteric sclerae, EOMI ENT: Present: hearing grossly normal, normal oropharynx - Respiratory Details: resp unlabored at rest, congested cough - Cardiovascular Details: skin warm, well perfused - Integumentary Integumentary: Present: normal - Neurologic Neurologic: Present: CNII-XII intact - Musculoskeletal Musculoskeletal: Present: generalized weakness - Psychiatric Psychiatric: Present: A&O x's 3 - Labs CBC & Chem 7: 07/23/24 04:46 07/23/24 04:46 Labs: Abnormal Lab Results - Last 24 Hours (Table) 07/24/24 07/24/24 07/25/24 Range/Units 16:28 19:58 06:15 POC Glucose (mg/dL) 193 H 233 H 203 H (70-110) mg/dL 07/25/24 Range/Units 11:43 POC Glucose (mg/dL) 175 H (70-110) mg/dL Assessment and Plan (1) Lung mass Current Visit: Yes Status: Acute Priority: High Code(s): R91.8 - OTHER NONSPECIFIC ABNORMAL FINDING OF LUNG FIELD SNOMED Code(s): 893960803 Plan: Lung mass -CT chest with contrast performed 07/05/2024 reports lobulated anterior right upper/middle lobe, peripheral pulmonary mass measuring 7.1 x 3.8 cm. Few small mediastinal lymph nodes. No osseous abnormalities. CT AP without contrast showed no acute abnormality in the pelvis or abdomen. -Pulmonary notes reviewed. Concerns for malignancy versus a masslike pneumonia that needs to be followed up. It is my impression that plans are to treat for her current situation and follow-up with possibly a PET scan and then plan for biopsy from there. Spoke with pt and friend at bedside today. Plan is for PET scan once pt discharged from rehab. She will then need referral for biopsy. Then f/u with Medical Oncologist once biopsy results are available. Oncology contact info in DC plan for pt/friend to call when discharged from rehab. Leave f/u with Med Onc as is right now, so pt is not lost to f/u. -MRI of the brain was neg, patient is still confused at times, she can be aggressive at times too. - Left supraclavicular swollen persists. US did not reveal any mass. Agree with IM plan for discharge to rehab.
--- NOTE | 2024-07-25 13:35 | P.PN ---
Subjective Progress Note Date: 07/25/24 Principal diagnosis: Shortness of breath. This is a 73-year-old obese white female today seen in room 620. She came to the hospital with 1 day of shortness of breath, leg swelling, and cough. Her viral screen was negative. The patient has smoked for about 40 to 45 years. The only medicine she takes at home for her breathing is albuterol. Her procalcitonin level was 0.05. Chest x-ray showed some fluid overload, but also showed a possible mass in the right midlung, which could be either an actual mass or pseudotumor. A CT scan was ordered. It does show a 7.1 lobulated mass in the right lung. A PET scan was recommended. Currently, the patient is on 4 L of oxygen. No fluids are ordered. She is getting Lasix 40 mg every 8 hours. She also has an updraft ordered. White count 1.22, hemoglobin 11.3, macro 39.1, platelet count 185,000. Coags are normal. Sodium 141, potassium 4.3, chlorides 94, CO2 39, BUN 17.5, creatinine 0.9. Glucose 169. Calcium 8.6. Troponin was negative. N-terminal proBNP was elevated at 1830. Procalcitonin level was 0.05. Urine is negative. Viral screen was negative. Chest x-ray was consistent with fluid overload/CHF. Cardiology has seen the patient. The patient is seen today July 06, 2024 in follow-up on the regular medical floor. She is currently sitting up in bed. Awake and alert in no acute distress. She is maintaining O2 saturations in the 90s on 4 L/min per nasal cannula. She is receiving normal saline at 75 mL/h. White count 10.2. Hemoglobin 11.5. Platelets 198. Sodium 134. Potassium 4.5. Bicarb 38. BUN 29. Creatinine 0.83. Glucose 132. She remains on cefazolin. IV diuretics were discontinued. The patient is seen today July 07, 2024 in follow-up on the regular medical floor. She is currently resting comfortably in bed. Awake and alert in no acute distress. Maintaining good O2 saturations in the 90s on 5 L/min per nasal cannula. She is receiving normal saline at 50 mL/h. Her blood culture isshowing Enterococcus faecium. She is currently on daptomycin. Remains on bronchodilators. 1.2. Platelets 204. Sodium 144. Potassium 5.2. Bicarb 39. BUN 24. Creatinine 0.6. Glucose 153. Progress note dated July 08, 2024. The patient was moved down to the third floor, sometime yesterday or last night, for respiratory distress. I was never notified. The patient was seen today in room 360. She was on BiPAP, with settings of 12/5, and 40%. She was getting saline at 20 cc an hour. A blood gas was done on 44% oxygen showing a pO2 of 84, pCO2 of 91, pH is 7.29. Her blood cultures were positive for Enterococcus faecium. For that reason, she is on daptomycin. Current labs include a white count 7.8, hemoglobin 11.2, hematocrit 38.3, and a platelet count of 173,000. S odium 139, potassium 4.5, chlorides 93, CO2 40, BUN 29, and creatinine 0.58. Glucose 74. Albumin is 3. Chest x-ray done yesterday, continues to show me in addition, there is diffuse changes, consistent with fluid overload and/or pneumonia. On 07/09/2024, the patient is being seen for a follow-up. Morbidly obese female patient was hospitalized for an acute on top of chronic hypoxic and hypercapnic respiratory failure. At the time of my evaluation this morning, the patient was started on a BiPAP at a pressure of 12/5 with an FiO2 of 40%. I took the patient off the BiPAP and put her on 4 L of oxygen by nasal cannula. Subsequent blood gases showed a pH of 7.34 with pCO2 of 86 and pO2 162. The patient has a mass like consolidation involving the right lower lobe. This could be pneumonia versus malignancy. At the same time, the patient is septic and the source of sepsis is a wound infection and the patient has active wet wound with purulent foul-smelling material covering the wound base and the right lower extremity above the lateral malleolus. Blood culture was positive for Enterococcus faecalis and based on that, the patient has been maintained on a combination of daptomycin and the patient is also on IV cefepime. Repeat chest x-ray was done and it showed a right lower lobe masslike opacity that remains unchanged compared to the previous x-rays in addition to mild cardiomegaly and pulm vessel congestion. The patient is sitting daily diuresis. The patient is producing excellent urine output and the fluid balance is -2.6 L over the past 24 hours. The white cell count is 7.1 with a heme of 10.6 and a platelet count of 151. Serum bicarb is 44 with BUN of 29 and a creatinine of 0.5. Sodium is at 140. She remains encephalopathic. She is arousable. She has tolerated the BiPAP reasonably well. On 07/10/2024, the patient is being seen for a follow-up. The patient remains on BiPAP and she seems to be tolerating the BiPAP reasonably well. This morning, the patient is on a BiPAP at a pressure of 12 over 5 cm of water with an FiO2 of 40% which is essentially the same setting as yesterday. She is arousable and she is able to communicate. At times confused. I took this patient off the BiPAP and put her on oxygen at 5 L/min nasal cannula. Subsequent blood gases showed a pH of 7.33 with a pCO2 of 78 and pO2 of 129. She is still lethargic and weak. Denies having any chest pain. She does have swelling in lower extremities bilaterally. She was given IV Lasix yesterday and her fluid balance is -3.1 L over the past 24 hours. She remains on Bumex 1 mg p.o. daily. She is also on Diamox 5 mg IV every 12 hours. The blood work from today shows a BUN of 24 with a creatinine of 0.7. Serum bicarb is at 36 and a sodium levels at 140. The white cell count is 7.9 with a hemoglobin of 11.4 and a platelet count of 164. The follow-up chest x-ray from yesterday was still showing a masslike consolidation/opacity in the right midlung/right lower lobe area. The patient also has some ongoing mild cardiomegaly. Wound care is being applied. ID is on the case. The patient remains on daptomycin and IV cefepime. On 07/11/2024, the patient is being seen for a follow-up. Remains quite lethargic and continues to have diminished level of consciousness. She remains on a BiPAP at her same setting of 12 over 5 cm of water. Repeat blood gas was done with an FiO2 40% showed a pH of 7.36 with a pCO2 of 71 and pO2 of 83. The patient is however arousable. She continues to be treated for a extensive right lower extremity wound infection with septicemia the patient had Enterococcus faecium and she remains essentially same antibiotic coverage including combination of cefepime and daptomycin. On today's blood work, the white cell count is 7.4 with a hemoglobin 10.9 and a platelet count of 174. The sodium level is at 139, BUN is 28 with a creatinine of 0.6. Potassium is at 4 and a serum bicarb is at 39. She is on Diamox 500 mg IV every 12 hours. She is on Bumex 1 mg p.o. daily. Rest of the medications are essentially unchanged. No significant agitation. 07/12/2024, the patient is being seen for a follow-up. On today's evaluation, the patient is arousable and she is able to communicate. She does have some background encephalopathy and confusion. She is complaining of pain involving lower extremities the patient has extensive wounds in lower extremities bilaterally involving the lateral aspect of the lower extremities bilaterally above the ankle. The area was inspected today and the wound base is erythematous and less purulence. No foul drainage at this point in time. The patient was taken off the BiPAP this morning. The patient was placed on oxygen and she is currently at 60s over the nasal cannula. Repeat blood gas was done and the patient showed a pH of 7.35 with a pCO2 of 65 and pO2 of 52 and this was on FiO2 of 36%. The follow-up chest x-ray from today shows a masslike consolidation in the right lung which seems to be less dense and more hazy. There is also cardiomegaly and pulm vascular congestion with mild pulm vascular congestion. The white cell count is at 9, hemoglobin is 10.7 and a platelet count of 176. BUN is 34 with a creatinine of 0.6 and a sodium level is at 137. The patient is receiving Diamox to 50 mg p.o. daily. The patient remains on Lasix 40 mg IV push every 12 hours. The fluid balance is -1.7 L over the past 24 hours. The patient remains on broad-spectrum antibiotics. The patient is currently on cefepime and daptomycin. Rest of the medications remain unchanged. She remains on Aldactone 25 mg p.o. daily and trazodone at bedtime 50 mg nightly. 07/13/2024, the patient is being seen for a follow-up. Patient is awake and alert and communicating. Denies having any significant complaints other than pain in her back and lower extremities bilaterally. Neurologically, much more awake and alert and communicating. No signs of any CO2 narcosis. Remains on IV Lasix. Remains on Aldactone and Diamox. Most recent blood gas from yesterday showed marked improvement respiratory status. Current serum bicarb level is at 32, sodium is at 135 with a potassium level 3.9. The white cell count of 3.5 with a hemoglobin of 11 and a platelet count of 172. She is utilizing the BiPAP only overnight. Patient has adequate urine output. Denies having any other complaints. Tolerating the oral intake. No reported aspiration. Chest x-ray from yesterday still showing cardiomegaly and pulm vessel congestion in addition to a vague right midlung opacity that is being followed up by serial chest x- rays. She remains on a combination of cefepime and daptomycin. ID is on the case. She is still on a combination of Desyrel and Seroquel. 07/14/2024, the patient is being seen for a follow-up. Overnight, the patient was utilizing her BiPAP at a pressure of 12 over 5 cm of water. This morning, the patient is still on a BiPAP. She is arousable and awake. No significant events overnight. No chest pain. No focal neurological deficits. Remains on the same regimen of antibiotics and the patient remains on daptomycin. ID is on the case. She remains on diuretics. She is on IV Lasix 40 mg every 12 hours and Aldactone 25 mg p.o. daily. She is also on Diamox to 50 mg p.o. on a daily basis. Sodium levels at 132, potassium level is at 4.1, BUN 32 with a creatinine 0.8. The white cell count of 10.9 with a hemoglobin 12 and a platelet count of 206. She was transferred out of the intensive care unit yesterday. No fever. No chills. She is still undergoing wound care to her lower extremity wounds and ID is on the case. 07/15/2024, the patient is being seen for a follow-up. She did encounter some episodes of confusion yesterday. This morning she is on a BiPAP and I took her off the BiPAP and put her on 3 L of oxygen by nasal cannula. She seems to be much more appropriate. She remains on IV Lasix. She is also on Aldactone. Fluid balance is -1.7 L over the past 24 hours. No specific complaints. Antibiotics remain daptomycin. The white cell count is at 8.3, hemoglobin is 10 and platelet count of 206. BUN is at 30 with a creatinine of 0.600 serum bicarb level is at 37. No new complaints otherwise for now. Patient was seen today on 07/16/2024, patient was seen on follow-up, seems to be about the same, she is not confused today, she is intermittently on BiPAP, during my evaluation she was on 2 L nasal cannula, seems to be very appropriate, remains on diuretics including Lasix and Aldactone. She had a significant negative fluid balance over the last 24 hours. Remains on daptomycin for enterococcal infection. WBC count is 9 hemoglobin 11.6, basic metabolic profile is normal ABG from yesterday was noted and it showed a pO2 of 120 pCO2 73 pH of 7.33. Her chest x-ray today continues to show evidence of congestive heart failure with cardiomegaly and small bilateral pleural effusions there is evidence of right midlung mass highly suggestive of malignancy needs outpatient follow-up and possible bronc and biopsy Seen today on 07/17/2024, patient is feeling much better today compared to the prior days. Breathing easier, less shortness of breath, her mentation even seems to be improving. Remains on daptomycin for her enterococcal infection, s he is on 3 L nasal cannula, remains on diuretics including Lasix and Aldactone. Reviewed her previous CT of the chest, patient does have a lung mass suspicious for bronchogenic carcinoma however this will need outpatient follow-up. WBC count is 8.5 hemoglobin is 10.6 electrolytes are normal renal profile is normal bicarb is 39 Seen today on 07/18/2024, patient is feeling better today, she has good days and bad days but overall she is doing well, remains on antibiotics, remains on 5 L nasal cannula, O2 saturation is 100%. WBC count is 8.8 hemoglobin is 11 basic metabolic profile is normal bicarb is 40 renal profile is normal. Patient was seen today on, patient is about the same, steadily improving, remains on antibiotics as per infectious disease on the case. Remains on 5 L nasal cannula and she has O2 saturation in the high 90s. Denies shortness of breath denies any cough or wheezing. WBC count is 7.56 hemoglobin 10.7 electrolytes are normal bicarb is 14 BUN is 30 creatinine 1.06, remains on diuretics including Bumex 1 mg twice daily remains on metoprolol and Aldactone she is also on Eliquis. For paroxysmal atrial fibrillation. Seen today on 07/20/2024, clinically the patient is about the same, pulmonary knight about the same, remains on antibiotics for her sepsis and bacteremia as per infectious disease remains on diuretics remains on bronchodilators, overall the patient is steadily improving. Patient will need final clearance for discharge by infectious disease WBC is 7.7 hemoglobin is 11 electrolytes abnormal renal profile is normal reviewed the note from infectious disease, recommending patient to be switched to Zyvox 600 mg twice daily as of 07/18 and plan is to continue that for 1 week / 10 days of antibiotics on discharge. Seen today on 07/22/2024, patient is doing well, relatively asymptomatic, I believe the patient was cleared by all the consultants to be discharged to rehab, remains on 3 L nasal cannula, not in any distress O2 sats result 85 to 9 7%. No cough no wheezing no shortness of breath no chest pain. WBC count is 6.97 hemoglobin 11 electrolytes are normal renal profile is normal sugar is 179 Progress note dated July 23, 2024. 73-year-old female seen today in room 358. Currently, the patient is on 2 L of oxygen. She is not receiving any IV fluids. She is resting comfortably in bed. She is awake and alert. No distress. White count 7.24, hemoglobin 10.5, hematocrit 34.6, and platelet count 232,000. Sodium 134, potassium 4, chloride 87, CO2 38, BUN 32, and creatinine 0.85. Glucose is 176. Calcium 9.4. Albumin 3.1. Blood cultures from 05 July, show Enterococcus species. Progress note dated July 24, 2024. 73-year-old female, seen today again in room 358. Currently, the patient is resting comfortably in bed. She continues on nasal O2 at 3 L. She is not receiving any IV fluids. She did not use the BiPAP device last night. It can be discontinued from the room. No New Labs Today Other Than a Glucose of 202. Blood cultures from July 05, show evidence of Enterococcus species. No recent chest x-ray to report. Progress note dated July 25, 2024. 73-year-old female seen today in room 358. The patient is currently doing relatively well. She is laying in bed. She is on 3 L. Her is in the room. She is not receiving any IV fluids. She was hoping to be discharged home, but she needs rehabilitation, so she is going to [facility]. Currently, no new labs, other than a glucose of 175. The patient apparently is on Zyvox, and may have large box, 600 mg twice a day. Blood cultures from July 05 showed evidence of Enterococcus species. Objective - Vital Signs Vital signs: Vital Signs Temp 98 F 07/25/24 11:23 Pulse 76 07/25/24 11:23 Resp 18 07/25/24 11:23 BP 109/65 07/25/24 11:23 Pulse Ox 94 L 07/25/24 11:23 FiO2 40 07/23/24 08:03 Intake & Output 07/24/24 07/25/24 07/25/24 18:59 06:59 18:59 Intake Total 10 240 Output Total 1100 400 0 Balance -1100 -390 240 Weight 91.5 kg Intake: IV 10 0.9 10 Oral 240 Output: Urine 1100 400 Stool 0 0 Other: Voiding Method External Catheter External Catheter External Catheter # Voids 1 # Bowel Movements 1 - Exam No acute distress, awake and alert, currently on 3 L. HEENT examination is grossly unremarkable. Mucous membranes are moist. No oral lesions. Neck supple. Full range of motion. No adenopathy thyromegaly or neck vein distention. Cardiovascular examination reveals regular rhythm rate. S1-S2 normal. No S3 or S4. No discernible murmur noted. Heart sounds are distant. Lungs reveal bibasilar crackles. Scattered rhonchi are also noted. No wheezes. Breath sounds are equal bilaterally. Abdomen soft bowel sounds are heard. No masses or tenderness. Extremities are intact. No cyanosis or clubbing. Trace edema. Skin is without rash or lesion. Neurologic examination is brief but nonfocal. - Labs CBC & Chem 7: 07/23/24 04:46 07/23/24 04:46 Labs: Abnormal Lab Results - Last 24 Hours (Table) 07/24/24 07/24/24 07/25/24 Range/Units 16:28 19:58 06:15 POC Glucose (mg/dL) 193 H 233 H 203 H (70-110) mg/dL 07/25/24 Range/Units 11:43 POC Glucose (mg/dL) 175 H (70-110) mg/dL Assessment and Plan Assessment: Acute on chronic hypoxemic and hypercapnic respiratory failure, secondary to COPD, and congestive heart failure. Enterococcus bacteremia. Severe pulmonary hypertension. Probable COPD, from years of tobacco use. Lobulated mass, 7.1 cm, right midlung, possibly consistent with malignancy, given her previous smoking history. History of congestive heart failure. History of diabetes mellitus. History of gastroesophageal reflux disease. History of hyperlipidemia. History of hypothyroidism. Morbid obesity. Plan: Plan dated July 05, 2024. The patient is seen today in room 620. She is laying in bed, eating her breakfast. The patient is currently on 4 L of oxygen. The patient came in with a couple days worth of increasing shortness of breath, lower extremity edema. Chest x-ray and CT scan in my opinion are consistent with fluid overload. BNP was elevated. The patient was a heavy smoker for many years and may have a component of COPD as well. In addition, CT scan suggested a lobulated mass, measuring 7.1 cm in the right midlung. The patient will need an outpatient PET scan. Labs, x-rays, and medications are reviewed. Viral screen was negative. We will continue to follow. Procalcitonin level was 0.05. Dictation was produced using [employer] dictation software. Please excuse any grammatical, word or spelling errors. Plan dated July 08, 2024. The patient was previously in the [facility]. She was admitted with a diagnosis of CHF, and lung mass. Sometime yesterday, she was moved down to the third floor. Our team was never notified. She was placed on BiPAP, and is currently on BiPAP, with settings of 12/5, and 40%. She is getting saline at 20 cc an hour. She continues on daptomycin for Enterococcus infection. Blood gases done yesterday show pO2 of 84, pCO2 of 91, pH is 7.29. The patient's procalcitonin level was normal. Labs, x-rays, and all medications are reviewed. The patient is overall prognosis remains guarded. We will continue to follow make recommendations along the way. Dictation was produced using [employer] software. Please excuse any grammatical, word or spelling errors. Plan dated July 23, 2024. The patient continues on oxygen, 2 L. She is feeling much better. The hope is that she will be discharged soon. She will need to follow-up with my partner post discharge, in relation to the mass, in the right chest. Additional recommendations and suggestions are forthcoming. Prognosis is certainly guarded. The patient should have an outpatient PET scan as well. All labs, x- rays, and medications are reviewed. We will continue to follow and offer recommendations, where appropriate. Dictation was produced using [employer] software. Please excuse any grammatical, word or spelling errors. Plan dated July 24, 2024. The patient continues on oxygen therapy. She is at 3 L. She did not use the BiPAP device last night, and it can be discontinued from the room. Her labs, x- rays, and medications are reviewed. The patient is feeling much better. The patient is awaiting discharge. I do not think any determination has been made as yet, where this patient might go. We will continue to follow make rec ommendations. The patient needs an outpatient PET scan, as mentioned above. Prognosis is guarded. Dictation was produced using [employer] software. Please excuse any grammatical, word or spelling errors. Plan dated July 25, 2024. The patient is hoping to be discharged sometime later today. She is currently on 3 L. No IV fluids. Infectious disease doctor, placed her on Zyvox, 600 mg twice a day for her Enterococcus infection. The patient will be sent to [facility], for rehabilitation. Labs, x-rays, and all medications are reviewed. We will continue to follow the patient, make recommendations along the way. Prognosis is certainly guarded. Dictation was produced using [employer] software. Please excuse any grammatical, word or spelling errors. Time with Patient: Less than 30
[2024-07-25 15:00] VITALS: PULSE 83
--- NOTE | 2024-07-26 13:16 | P.PN ---
Subjective Progress Note Date: 07/25/24 Principal diagnosis: Reason for follow-up with lower extremity ulcer and cellulitis Patient is a 73-year-old female with a past medical history significant for COPD heart failure diabetes mellitus reflux hyperlipidemia presenting to the hospital for evaluation of a fall that happened the day of presentation to the hospital patient accidentally rolled off the couch onto the floor and was too weak to get herself up, noticed to have bilateral extremity ulcer and cellulitis prompted this consultation. On today's evaluation that is 07/25/2024,the patient denies any fever or any chills, patient is breathing comfortably on 3 L nasal cannula oxygen, the patient denies chest pain shortness of breath and no significant cough, patient denies abdominal pain, no nausea vomiting or diarrhea. No new lab has been obtained today Objective - Vital Signs Vital signs: Vital Signs Temp 98 F 07/25/24 11:23 Pulse 76 07/25/24 11:23 Resp 18 07/25/24 11:23 BP 109/65 07/25/24 11:23 Pulse Ox 94 L 07/25/24 11:23 FiO2 40 07/23/24 08:03 Intake & Output 07/24/24 07/25/24 07/25/24 18:59 06:59 18:59 Intake Total 10 240 Output Total 1100 400 0 Balance -1100 -390 240 Weight 91.5 kg Intake: IV 10 0.9 10 Oral 240 Output: Urine 1100 400 Stool 0 0 Other: Voiding Method External Catheter External Catheter External Catheter # Voids 1 # Bowel Movements 1 - Exam GENERAL DESCRIPTION: An elderly female lying in bed in no distress RESPIRATORY SYSTEM: Unlabored breathing , decreased breath sounds at bases HEART: S1 S2 regular rate and rhythm , ABDOMEN: Soft , no tenderness EXTREMITIES: Bilateral lower extremity currently wrapped with an Blue wrap no drainage - Labs CBC & Chem 7: 07/23/24 04:46 07/23/24 04:46 Labs: Abnormal Lab Results - Last 24 Hours (Table) 07/24/24 07/24/24 07/25/24 Range/Units 16:28 19:58 06:15 POC Glucose (mg/dL) 193 H 233 H 203 H (70-110) mg/dL 07/25/24 Range/Units 11:43 POC Glucose (mg/dL) 175 H (70-110) mg/dL Assessment and Plan (1) Leg ulcer, left Status: Acute Code(s): L97.929 - NON-PRS CHRONIC ULC UNSP PRT OF L LOW LEG W UNSP SEVERITY SNOMED Code(s): 32485670 (2) Left leg cellulitis Status: Acute Code(s): L03.116 - CELLULITIS OF LEFT LOWER LIMB SNOMED Code(s): 66590086053154058 (3) Penicillin allergy Status: Acute Code(s): Z88.0 - ALLERGY STATUS TO PENICILLIN SNOMED Code(s): 41106251 (4) Bacteremia Status: Acute Code(s): R78.81 - BACTEREMIA SNOMED Code(s): 9082150 Plan: 1patient with diffuse swelling of bilateral lower extremity with superficial solution to the left leg likely venous stasis ulcer with secondary cellulitis likely from gram-positive skin neida. 2patient with a penicillin allergy that will limit the number of antibiotics safe to use. 3local wound care to the left leg with dry Aquacel dressing and Blue wrap to keep the swelling down, and apply Santyl to the wound to the right heel change daily. 4patient did have resolution of the fever and white count is normal however the patient blood culture repeat came back positive highly clinically suspicious for possible endovascular source such as endocarditis, patient did have negative HANNA, UA negative CT abdominal pelvis was negative as well and the patient could not complete the WBC scan in view of clinical improvement, advised to continue with oral Zyvox 600 mg twice a day x 10 days on discharge discussed with the admitting team Dictation was produced using [employer] dictation software. please excuse any grammatical, word or spelling errors. Time with Patient: Less than 30
== END 2024-07-25 16:15 | DRG 291 ==
LOC: EC 09:59 → 6NMEDSUR 12:27 → OBSVTOIN 12:28 → 6NMEDSUR 13:09 → 3SCARD 07-07 16:14 → 2SICU 07-11 15:00 → 3SCARD 07-13 14:17
PROVIDERS: ADMIT Internal Medicine; ATTEND Internal Medicine
DX: I11.0 Hypertensive heart disease with heart failure (principal); A41.81 Sepsis due to Enterococcus; G93.41 Metabolic encephalopathy; I50.33 Acute on chronic diastolic (congestive) heart failure; J96.22 Acute and chronic respiratory failure with hypercapnia; J96.21 Acute and chronic respiratory failure with hypoxia; I27.22 Pulmonary hypertension due to left heart disease; I38 Endocarditis, valve unspecified; L03.115 Cellulitis of right lower limb; I48.0 Paroxysmal atrial fibrillation; E66.01 Morbid (severe) obesity due to excess calories; E11.9 Type 2 diabetes mellitus without complications; J44.9 Chronic obstructive pulmonary disease, unspecified; E03.9 Hypothyroidism, unspecified; L97.811 Non-pressure chronic ulcer of other part of right lower leg limited to breakdown of skin; L97.821 Non-pressure chronic ulcer of other part of left lower leg limited to breakdown of skin; Z68.42 Body mass index [BMI] 45.0-49.9, adult; L03.116 Cellulitis of left lower limb; I83.018 Varicose veins of right lower extremity with ulcer other part of lower leg; I83.028 Varicose veins of left lower extremity with ulcer other part of lower leg; I50.82 Biventricular heart failure; R91.8 Other nonspecific abnormal finding of lung field; I89.0 Lymphedema, not elsewhere classified; K59.00 Constipation, unspecified; E78.5 Hyperlipidemia, unspecified; K21.9 Gastro-esophageal reflux disease without esophagitis; W08.XXXA Fall from other furniture, initial encounter; Y92.008 Other place in unspecified non-institutional (private) residence as the place of occurrence of the external cause; Z79.84 Long term (current) use of oral hypoglycemic drugs; Z79.51 Long term (current) use of inhaled steroids; Z79.899 Other long term (current) drug therapy; Z87.891 Personal history of nicotine dependence; Z85.828 Personal history of other malignant neoplasm of skin; Z92.3 Personal history of irradiation; Z82.49 Family history of ischemic heart disease and other diseases of the circulatory system; Z88.0 Allergy status to penicillin
CPT/HCPCS: 36415; 36600; 70553; 71045; 71046; 71260; 74176; 76536; 78306; 80048; 80053; 80170; 81003; 82140; 82550; 82607; 82746; 82805; 83605; 83880; 84145; 84443; 84484; 85025; 85027; 85610; 85652; 85730; 86140; 87040; 87077; 87186; 87636; 93005; 93306; 93312; 93320; 93325; 94640; 94660; 94760; 95816; 96374; 96376; 99285

== ENCOUNTER 2024-08-09 12:14 | Inpatient (IN) | payer MEDICARE ==
[2024-08-09 12:53] LABS: Glucose,Whole Blood 137 mg/dL (70-110)
[2024-08-09 12:59] LABS: Basophils # (A) 0.03 10*3/uL (0.00-0.10); Basophils % (A) 0.4 %; Eosinophils # (A) 0.25 10*3/uL (0.04-0.35); HCT 27.8 % (37.2-46.3); Lymphocytes # (A) 0.92 10*3/uL (0.90-5.00); Lymphocytes % (A) 10.9 %; MCH 28.8 pg (27.0-32.0); MCHC 32.4 g/dL (32.0-37.0); Mean Platelet Volume 11.2 fL (9.5-12.2); Monocytes # (A) 0.53 10*3/uL (0.20-1.00); Monocytes % (A) 6.3 %; Neutrophils # (A) 6.68 10*3/uL (1.80-7.70); Neutrophils % (A) 78.8 %; RBC 3.12 10*6/uL (4.10-5.20); WBC 8.46 10*3/uL (4.50-10.00)
--- NOTE | 2024-08-09 12:59 | ED ---
General Adult HPI - General Chief complaint: Recheck/Abnormal Lab/Rx Stated complaint: [place] Issues Time Seen by Provider: 08/09/24 12:20 Source: EMS, RN notes reviewed, old records reviewed Mode of arrival: EMS Limitations: altered mental status - History of Present Illness Initial comments: This is a 74-year-old female who presents to the emergency department from a residential. Patient does not know why she is here in fact she did not even know for sure that she lives in a residential. Patient states she is not currently in any worse pain. Patient states she does not have any discomfort in her chest or abdomen. Patient denies any difficulty breathing or shortness of breath. Patient states that she does not know why she is here. No family member or caregiver is with the patient. EMS and paperwork provided with the patient states that they sent her in because her BUN and creatinine were elevated - Related Data Home Medications Medication Instructions Recorded Confirmed Albuterol Inhaler [Ventolin Hfa 1 - 2 puff INHALATION RT-Q6H PRN 01/08/15 08/09/24 Inhaler] Enalapril [Vasotec] 20 mg PO DAILY@89907/04/24 08/09/24 Ergocalciferol [Vitamin D2 (1250 1,250 mcg PO MO@89907/04/24 08/09/24 Mcg = 50917 Iu)] HYDROcodone/APAP 10-325MG [[place] 1 tab PO TID PRN 07/04/24 08/09/24 10-325] traZODone HCL [Desyrel] 25 mg PO HS@209907/04/24 08/09/24 Apixaban [Eliquis] 5 mg PO BID@0900,209908/09/24 08/09/24 Budesonide/Formoterol Fumarate 2 puff INHALATION RT-BID@899,209908/09/24 08/09/24 [Symbicort 160-4.5 Mcg Inhaler] Bumetanide [BUMEX] 1 mg PO BID@0600,1400 08/09/24 08/09/24 Clotrimazole/Betameth Cream 1 applic TOPICAL BID 08/09/24 08/09/24 [Lotrisone] Docusate [Colace] 100 mg PO DAILY@0908/09/24 08/09/24 Folic Acid 1 mg PO DAILY@0908/09/24 08/09/24 Glucerna Shake 1 can PO DAILY@0908/09/24 08/09/24 INSULIN LISPRO (HumaLOG) [HumaLOG] See Protocol SQ ACHS 08/09/24 08/09/24 Insulin Glargine (Lantus) [Lantus 35 unit SQ HS@209908/09/24 08/09/24 Vial] Ipratropium-Albuterol Nebulize 3 ml INHALATION RT-Q6H 08/09/24 08/09/24 [Duoneb 0.5 mg-3 mg/3 ml Soln] Metoprolol Tartrate [Lopressor] 25 mg PO BID@0900,209908/09/24 08/09/24 Spironolactone [Aldactone] 25 mg PO DAILY@89908/09/24 08/09/24 Allergies Allergy/AdvReac Type Severity Reaction Status Date / Time Penicillins Allergy Rash/Hives Verified 07/04/24 14:26 Review of Systems ROS Statement: Those systems with pertinent positive or pertinent negative responses have been documented in the HPI. ROS Other: All systems not noted in ROS Statement are negative. Past Medical History Past Medical History: Heart Failure, COPD, Diabetes Mellitus, GERD/Reflux, Hyperlipidemia, Thyroid Disorder Additional Past Medical History / Comment(s): home O2 3-6L per pt. History of Any Multi-Drug Resistant Organisms: None Reported Past Surgical History: Cholecystectomy Additional Past Surgical History / Comment(s): foot Left plate and pins Past Anesthesia/Blood Transfusion Reactions: No Reported Reaction Past Psychological History: Anxiety Smoking Status: Former smoker Past Alcohol Use History: None Reported Past Drug Use History: None Reported - Past Family History Mother Family Medical History: Hypertension Father Family Medical History: Cancer General Exam - General Exam Comments Initial Comments: GENERAL: Patient is well-developed and well-nourished. Patient is nontoxic and well- hydrated and is in no acute distress. ENT: Neck is soft and supple. No significant lymphadenopathy is noted. Oropharynx is clear. Moist mucous membranes. Neck has full range of motion without eliciting any pain. EYES: The sclera were anicteric and conjunctiva were pink and moist. Extraocular movements were intact and pupils were equal round and reactive to light. Eyelids were unremarkable. PULMONARY: Unlabored respirations. Good breath sounds bilaterally. No audible rales rhonchi or wheezing was noted. CARDIOVASCULAR: There is a regular rate and rhythm without any murmurs gallops or rubs. ABDOMEN: Soft and nontender with normal bowel sounds. SKIN: Skin is clear with no lesions or rashes and otherwise unremarkable. NEUROLOGIC: Patient is alert and oriented x 2. Cranial nerves II through XII are grossly intact. Motor and sensory are also intact. Normal speech, volume and content. Symmetrical smile. MUSCULOSKELETAL: Normal extremities with adequate strength and full range of motion. No lower extremity swelling or edema. No calf tenderness. LYMPHATICS: No significant lymphadenopathy is noted PSYCHIATRIC: Normal psychiatric evaluation. Limitations: altered mental status Course Vital Signs 08/09/24 08/09/24 08/09/24 12:16 14:45 15:54 Temperature 98.4 F Pulse Rate 72 73 70 Respiratory 18 20 20 Rate Blood Pressure 122/63 93/48 103/88 O2 Sat by Pulse 97 96 97 Oximetry 08/09/24 17:00 Temperature Pulse Rate 75 Respiratory 18 Rate Blood Pressure 111/66 O2 Sat by Pulse 98 Oximetry Medical Decision Making - Medical Decision Making EKG is interpreted by myself. EKG shows a sinus rhythm at 68 bpm MN interval 192 QRS 101 QT interval 398 QTc is 416. Patient's EKG shows no ST segment elevation or depression. Was pt. sent in by a medical professional or institution (Dr. PA, NURSE HEAD, urgent care, hospital, or residential...) When possible be specific @ -No Did you speak to anyone other than the patient for history (EMS, parent, family, police, friend...)? What history was obtained from this source @ -No Did you review nursing and triage notes (agree or disagree)? Why? @ -I reviewed and agree with nursing and triage notes Were old charts reviewed (outside hosp., previous admission, EMS record, old EKG, old radiological studies, urgent care reports/EKG's, residential records)? Report findings @ -No old charts were reviewed Differential Diagnosis? @ -Differential Altered Mental Status: Hypoglycemia, DKA, hypercapnia, ETOH, overdose, CO poisoning, trauma, myxedema coma, HTN encephalopathy, infection, encephalitis, psychosis, intercranial hemorrhage, hepatic encephalopathy, meningitis, CVA, this is not meant to be an all-inclusive list EKG interpreted by me (3pts min.). @ -As above X-rays interpreted by me (1pt min.). @ -Chest x-ray shows no acute abnormality CT interpreted by me (1pt min.). @ -None done U/S interpreted by me (1pt. min.). @ -None done What testing was considered but not performed or refused? (CT, X-rays, U/S, labs)? Why? @ -None What meds were considered but not given or refused? Why? @ -None Did you discuss the management of the patient with other professionals (professionals i.e. , PA, NURSE HEAD, lab, RT, psych nurse, social insurance specialist, telegraphic instrument supervisor, teacher, digital controls technical officer, director of casework services)? Give summary @ -I spoke with [facility] hospitalist and they agreed to admit the patient admit the patient recommending or Was smoking cessation discussed for >3mins.? @ -No Was critical care preformed (if so, how long)? @ -No Were there social determinants of health that impacted care today? How? (Homelessness, low income, unemployed, alcoholism, drug addiction, transportation, low edu. Level, literacy, decrease access to med. care, detention, rehab)? @ -No Was there de-escalation of care discussed even if they declined (Discuss DNR or withdrawal of care, Hospice)? DNR status @ -No What co-morbidities impacted this encounter? (DM, HTN, Smoking, COPD, CAD, Cancer, CVA, ARF, Chemo, Hep., AIDS, mental health diagnosis, sleep apnea, morbid obesity)? @ -None Was patient admitted / discharged? Hospital course, mention meds given and route, prescriptions, significant lab abnormalities, going to OR and other per tinent info. @ -Patient potassium was elevated and I treated the patient's potassium with Lokelma calcium chloride sodium bicarb insulin and D50. Patient also had a urinary tract infection and patient was given 2 g of Rocephin in the emergency department. Patient also was noted to have some vaginal bleeding and that will be monitored and a consult will be placed for [employer]. Undiagnosed new problem with uncertain prognosis? @ -No Drug Therapy requiring intensive monitoring for toxicity (Heparin, Nitro, Insulin, Cardizem)? @ -No Were any procedures done? @ -No Diagnosis/symptom? @ -Urinary tract infection Acute, or Chronic, or Acute on Chronic? @ -Acute Uncomplicated (without systemic symptoms) or Complicated (systemic symptoms)? @ -Complicated Side effects of treatment? @ -No Exacerbation, Progression, or Severe Exacerbation? @ -No Poses a threat to life or bodily function? How? (Chest pain, [place], [place], pneumonia, PE, COPD, DKA, ARF, appy, cholecystitis, CVA, Diverticulitis, Homicidal, S uicidal, threat to staff... and all critical care pts) @ -Yes this could lead to sepsis and endorgan dysfunction Diagnosis/symptom? @ -Renal failure Acute, or Chronic, or Acute on Chronic? @ -Acute on chronic Uncomplicated (without systemic symptoms) or Complicated (systemic symptoms)? @ -Complicated Side effects of treatment? @ -None Exacerbation, Progression, or Severe Exacerbation] @ -No Poses a threat to life or bodily function? @ -Yes this can lead to significant electrolyte abnormalities and heart arrhythmias Diagnosis/symptom? @ -Hyperkalemia Acute, or Chronic, or Acute on Chronic? @ -Acute Uncomplicated (without systemic symptoms) or Complicated (systemic symptoms)? @ -complicated Side effects of treatment? @ -None Exacerbation, Progression, or Severe Exacerbation] @ -No Poses a threat to life or bodily function? @ -Yes this could lead to an arrhythmia. Diagnosis/symptom? @ -Vaginal bleeding Acute, or Chronic, or Acute on Chronic? @ -Acute Uncomplicated (without systemic symptoms) or Complicated (systemic symptoms)? @ -Complicated Side effects of treatment? @ -None Exacerbation, Progression, or Severe Exacerbation] @ -No Poses a threat to life or bodily function? @ -No - Lab Data Result diagrams: 08/09/24 12:48 08/09/24 15:37 Lab Results 08/09/24 08/09/24 08/09/24 Range/Units 12:48 12:48 12:48 WBC 8.46 (4.50-10.00) 10*3/uL RBC 3.12 L (4.10-5.20) 10*6/uL Hgb 9.0 L D (12.0-15.0) g/dL Hct 27.8 L (37.2-46.3) % MCV 89.1 D (80.0-97.0) fL MCH 28.8 (27.0-32.0) pg MCHC 32.4 (32.0-37.0) g/dL Plt Count 104 L D (140-440) 10*3/uL MPV 11.2 (9.5-12.2) fL Immature Gran % (Auto) 0.6 % Neutrophils % 78.8 % Lymphocytes % 10.9 % Monocytes % 6.3 % Eosinophils % 3.0 % Basophils % 0.4 % Immature Gran # 0.05 H (0.00-0.04) 10*3/uL Neutrophils # 6.68 (1.80-7.70) 10*3/uL Lymphocytes # 0.92 (0.90-5.00) 10*3/uL Monocytes # 0.53 (0.20-1.00) 10*3/uL Eosinophils # 0.25 (0.04-0.35) 10*3/uL Basophils # 0.03 (0.00-0.10) 10*3/uL PT 12.5 (10.0-12.5) sec INR 1.2 H (<1.2) APTT 32.5 H (22.0-30.0) sec Sodium 131 L (137-145) mmol/L Potassium 6.0 H (3.5-5.1) mmol/L Chloride 94 L (98-107) mmol/L Carbon Dioxide 21 L (22-30) mmol/L Anion Gap 16 mmol/L BUN 155 H* (7-17) mg/dL Creatinine 4.20 H (0.52-1.04) mg/dL Est GFR (CKD-EPI)AfAm 11 (>60 ml/min/1.73 sqM) Est GFR (CKD-EPI)NonAf 10 (>60 ml/min/1.73 sqM) Glucose 116 H (74-99) mg/dL POC Glucose (mg/dL) (70-110) mg/dL POC Glu Boom Tender ID Plasma Lactic Acid Jean (0.7-2.0) mmol/L Calcium 8.9 (8.4-10.2) mg/dL Total Bilirubin 0.6 (0.2-1.3) mg/dL AST 20 (14-36) U/L ALT 13 (4-34) U/L Alkaline Phosphatase 89 (38-126) U/L Troponin I (0.000-0.034) ng/mL Total Protein 6.5 (6.3-8.2) g/dL Albumin 3.8 (3.5-5.0) g/dL Urine Color Urine Appearance (Clear) Urine pH (5.0-8.0) Ur Specific [place] (1.001-1.035) Urine Protein (Negative) Urine Glucose (UA) (Negative) Urine Ketones (Negative) Urine Blood (Negative) Urine Nitrite (Negative) Urine Bilirubin (Negative) Urine Urobilinogen (<2.0) mg/dL Ur Leukocyte Esterase (Negative) Urine RBC (0-5) /hpf Urine WBC (0-5) /hpf Urine Bacteria (None) /hpf Urine Mucus (None) /hpf 08/09/24 08/09/24 08/09/24 Range/Units 12:48 12:51 14:34 WBC (4.50-10.00) 10*3/uL RBC (4.10-5.20) 10*6/uL Hgb (12.0-15.0) g/dL Hct (37.2-46.3) % MCV (80.0-97.0) fL MCH (27.0-32.0) pg MCHC (32.0-37.0) g/dL Plt Count (140-440) 10*3/uL MPV (9.5-12.2) fL Immature Gran % (Auto) % Neutrophils % % Lymphocytes % % Monocytes % % Eosinophils % % Basophils % % Immature Gran # (0.00-0.04) 10*3/uL Neutrophils # (1.80-7.70) 10*3/uL Lymphocytes # (0.90-5.00) 10*3/uL Monocytes # (0.20-1.00) 10*3/uL Eosinophils # (0.04-0.35) 10*3/uL Basophils # (0.00-0.10) 10*3/uL PT (10.0-12.5) sec INR (<1.2) APTT (22.0-30.0) sec Sodium (137-145) mmol/L Potassium (3.5-5.1) mmol/L Chloride (98-107) mmol/L Carbon Dioxide (22-30) mmol/L Anion Gap mmol/L BUN (7-17) mg/dL Creatinine (0.52-1.04) mg/dL Est GFR (CKD-EPI)AfAm (>60 ml/min/1.73 sqM) Est GFR (CKD-EPI)NonAf (>60 ml/min/1.73 sqM) Glucose (74-99) mg/dL POC Glucose (mg/dL) 137 H (70-110) mg/dL POC Glu Boom Tender ID [facility] Plasma Lactic Acid Jean (0.7-2.0) mmol/L Calcium (8.4-10.2) mg/dL Total Bilirubin (0.2-1.3) mg/dL AST (14-36) U/L ALT (4-34) U/L Alkaline Phosphatase (38-126) U/L Troponin I 0.013 (0.000-0.034) ng/mL Total Protein (6.3-8.2) g/dL Albumin (3.5-5.0) g/dL Urine Color Light Yellow Urine Appearance Cloudy H (Clear) Urine pH 5.5 (5.0-8.0) Ur Specific [place] 1.012 (1.001-1.035) Urine Protein Trace H (Negative) Urine Glucose (UA) Negative (Negative) Urine Ketones Negative (Negative) Urine Blood Small H (Negative) Urine Nitrite Positive H (Negative) Urine Bilirubin Negative (Negative) Urine Urobilinogen 3.0 (<2.0) mg/dL Ur Leukocyte Esterase Large H (Negative) Urine RBC 17 H (0-5) /hpf Urine WBC >182 H (0-5) /hpf Urine Bacteria Many H (None) /hpf Urine Mucus Rare H (None) /hpf 08/09/24 08/09/24 Range/Units 15:37 15:37 WBC (4.50-10.00) 10*3/uL RBC (4.10-5.20) 10*6/uL Hgb (12.0-15.0) g/dL Hct (37.2-46.3) % MCV (80.0-97.0) fL MCH (27.0-32.0) pg MCHC (32.0-37.0) g/dL Plt Count (140-440) 10*3/uL MPV (9.5-12.2) fL Immature Gran % (Auto) % Neutrophils % % Lymphocytes % % Monocytes % % Eosinophils % % Basophils % % Immature Gran # (0.00-0.04) 10*3/uL Neutrophils # (1.80-7.70) 10*3/uL Lymphocytes # (0.90-5.00) 10*3/uL Monocytes # (0.20-1.00) 10*3/uL Eosinophils # (0.04-0.35) 10*3/uL Basophils # (0.00-0.10) 10*3/uL PT (10.0-12.5) sec INR (<1.2) APTT (22.0-30.0) sec Sodium 133 L (137-145) mmol/L Potassium 5.8 H (3.5-5.1) mmol/L Chloride 93 L (98-107) mmol/L Carbon Dioxide 23 (22-30) mmol/L Anion Gap 17 mmol/L BUN 155 H* (7-17) mg/dL Creatinine 4.10 H (0.52-1.04) mg/dL Est GFR (CKD-EPI)AfAm 12 (>60 ml/min/1.73 sqM) Est GFR (CKD-EPI)NonAf 10 (>60 ml/min/1.73 sqM) Glucose 114 H (74-99) mg/dL POC Glucose (mg/dL) (70-110) mg/dL POC Glu Boom Tender ID Plasma Lactic Acid Jean 0.8 (0.7-2.0) mmol/L Calcium 9.2 (8.4-10.2) mg/dL Total Bilirubin (0.2-1.3) mg/dL AST (14-36) U/L ALT (4-34) U/L Alkaline Phosphatase (38-126) U/L Troponin I (0.000-0.034) ng/mL Total Protein (6.3-8.2) g/dL Albumin (3.5-5.0) g/dL Urine Color Urine Appearance (Clear) Urine pH (5.0-8.0) Ur Specific [place] (1.001-1.035) Urine Protein (Negative) Urine Glucose (UA) (Negative) Urine Ketones (Negative) Urine Blood (Negative) Urine Nitrite (Negative) Urine Bilirubin (Negative) Urine Urobilinogen (<2.0) mg/dL Ur Leukocyte Esterase (Negative) Urine RBC (0-5) /hpf Urine WBC (0-5) /hpf Urine Bacteria (None) /hpf Urine Mucus (None) /hpf Disposition Clinical Impression: Hyperkalemia, Acute on chronic renal failure, Urinary tract infection, Vaginal bleeding Disposition: ADMITTED IP TO THIS HOSP Referrals: Quoc Devine MD [Primary Care Provider] - 1-2 days Time of Disposition: 17:47
[2024-08-09 13:26] LABS: ALT 13 U/L (4-34); AST 20 U/L (14-36); African American GFR (CKD) 11 (>60 ml/min/1.73 sqM); Albumin 3.8 g/dL (3.5-5.0); Alkaline Phosphatase 89 U/L (38-126); Anion Gap 16 mmol/L; Calcium 8.9 mg/dL (8.4-10.2); Carbon Dioxide 21 mmol/L (22-30); Chloride 94 mmol/L (98-107); Glucose 116 mg/dL (74-99); Non-African American GFR(CKD) 10 (>60 ml/min/1.73 sqM); Sodium 131 mmol/L (137-145); Total Bilirubin 0.6 mg/dL (0.2-1.3); Total Protein 6.5 g/dL (6.3-8.2)
[2024-08-09 13:27] LABS: INR 1.2 (<1.2); MCV 89.1 fL (80.0-97.0); Partial Thromboplastin Time 32.5 sec (22.0-30.0); Platelet Count 104 10*3/uL (140-440); Prothrombin Time 12.5 sec (10.0-12.5)
[2024-08-09 13:43] LABS: Blood Urea Nitrogen 155 mg/dL (7-17)
[2024-08-09 14:44] LABS: Appearance,Urine Cloudy (Clear); Bacteria,Urine Many /hpf; Bilirubin,Urine Negative (Negative); Blood,Urine Small (Negative); Color,Urine Light Yellow; Glucose,Urine (UA) Negative (Negative); Ketones,Urine Negative (Negative); Leukocyte Esterase,Urine Large (Negative); Mucus,Urine Rare /hpf; Nitrite,Urine Positive (Negative); PH, Urine 5.5 (5.0-8.0); Protein,Urine Trace (Negative); RBC,Urine 17 /hpf (0-5); Specific Gravity,Urine 1.012 (1.001-1.035); WBC,Urine >182 /hpf (0-5)
--- NOTE | 2024-08-09 15:45 | XR ---
EXAMINATION TYPE: XR chest 2V DATE OF EXAM: 08/09/2024 3:18 PM COMPARISON: 07/16/2024 CLINICAL INDICATION: Female, 74 years old with history of altered mental status, confusion TECHNIQUE: AP and lateral views FINDINGS: The heart remains mild to moderately enlarged. 4.3 cm masslike opacity right midlung. Diffuse interst itial densities. Otherwise, mid and lower lung aeration is improving from 07/16/2024. No pleural effusi on on the lateral view. IMPRESSION: 1. Similar cardiomegaly. Suspect underlying COPD. Possible pulmonary vascular congestion. 2. Improving airspace disease in the mid and lower lungs. Residual focal 4.3 cm opacity at the right midlung. Ongoing follow-up to ensure complete clearance. Underlying mass should be excluded. [facility], Workstation: [email or web address], 08/09/2024 3:43 PM
[2024-08-09] MEDS: cefTRIAXone IN SWFI 1,000 MG/10 ML SYRINGE IVP STA ×2 (15:48→15:49)
[2024-08-09 16:17] LABS: African American GFR (CKD) 12 (>60 ml/min/1.73 sqM); Anion Gap 17 mmol/L; Calcium 9.2 mg/dL (8.4-10.2); Carbon Dioxide 23 mmol/L (22-30); Chloride 93 mmol/L (98-107); Glucose 114 mg/dL (74-99); Non-African American GFR(CKD) 10 (>60 ml/min/1.73 sqM); Potassium 5.8 mmol/L (3.5-5.1); Sodium 133 mmol/L (137-145)
[2024-08-09 16:33] LABS: Blood Urea Nitrogen 155 mg/dL (7-17)
[2024-08-09] MEDS: SODIUM ZIRCONIUM CYCLOSILICATE 10 GM PACKET PO ONE (17:21)
[2024-08-09] MEDS: SODIUM BICARB 8.4% 50 ML SYR (1 MEQ/ML) IV STA (17:21)
[2024-08-09] MEDS: INSULIN REGULAR 100 UNIT/ML VIAL (IV) IV ONE (17:21)
[2024-08-09] MEDS: CALCIUM CHLORIDE 100 MG/ML 10 ML SYRINGE IVP STA (17:21)
[2024-08-09] MEDS: DEXTROSE 50% SYRINGE 50 ML IVP STA (17:21)
[2024-08-09] MEDS: SODIUM CHLORIDE 0.9% 1,000 ML IV ONE (18:18)
[2024-08-09 18:35] LABS: Basophils # (A) 0.03 10*3/uL (0.00-0.10); Basophils % (A) 0.4 %; Eosinophils # (A) 0.18 10*3/uL (0.04-0.35); Eosinophils % (A) 2.3 %; HCT 25.4 % (37.2-46.3); HGB 8.2 g/dL (12.0-15.0); Lymphocytes # (A) 1.04 10*3/uL (0.90-5.00); Lymphocytes % (A) 13.5 %; MCH 29.2 pg (27.0-32.0); MCHC 32.3 g/dL (32.0-37.0); MCV 90.4 fL (80.0-97.0); Mean Platelet Volume 10.7 fL (9.5-12.2); Monocytes # (A) 0.57 10*3/uL (0.20-1.00); Monocytes % (A) 7.4 %; Neutrophils # (A) 5.88 10*3/uL (1.80-7.70); Platelet Count 105 10*3/uL (140-440); RBC 2.81 10*6/uL (4.10-5.20); RDW 14.9 % (11.5-14.5); WBC 7.73 10*3/uL (4.50-10.00)
[2024-08-09 21:49] LABS: Glucose,Whole Blood 119 mg/dL (70-110)
--- NOTE | 2024-08-09 21:55 | US ---
EXAMINATION TYPE: US pelvic complete DATE OF EXAM: 08/09/2024 COMPARISON: CT 07/15/24 CLINICAL INDICATION: Female, 74 years old with history of post-menopausal bleeding; post menopausal b leeding. patient AMS. unsure how long. patient asked for exam to stop. TECHNIQUE: Transabdominal (TA). Transabdominal grayscale sonographic images of the pelvis were acquired. Doppler imaging: Not performed. patient denied TV imaging FINDINGS: Date of LMP: unsure lmp EXAM MEASUREMENTS: Uterus: not seen Endometrial Stripe: not seen Right Ovary: not seen Left Ovary: not seen Patient altered mental status. Images of the midline pelvis were acquired. patient has catheter, un able to visualize pelvic organs for evaluation at this time. patient denies TV ultrasound. patient as ks for transabdominal exam to stop. Non diagnostic exam IMPRESSION: Significantly limited study. Examination is felt to be nondiagnostic. O-RADS 2021 [email or web address] [facility], , 08/09/2024 9:52 PM
[2024-08-09 23:51] LABS: Basophils # (A) 0.03 10*3/uL (0.00-0.10); Basophils % (A) 0.4 %; Eosinophils # (A) 0.23 10*3/uL (0.04-0.35); Eosinophils % (A) 2.9 %; HCT 26.8 % (37.2-46.3); HGB 8.5 g/dL (12.0-15.0); Lymphocytes # (A) 1.23 10*3/uL (0.90-5.00); Lymphocytes % (A) 15.8 %; MCH 29.5 pg (27.0-32.0); MCHC 31.7 g/dL (32.0-37.0); MCV 93.1 fL (80.0-97.0); Mean Platelet Volume 11.3 fL (9.5-12.2); Monocytes # (A) 0.64 10*3/uL (0.20-1.00); Monocytes % (A) 8.2 %; Neutrophils # (A) 5.62 10*3/uL (1.80-7.70); Neutrophils % (A) 72.1 %; Platelet Count 101 10*3/uL (140-440); RBC 2.88 10*6/uL (4.10-5.20); RDW 14.8 % (11.5-14.5)
[2024-08-10 06:25] LABS: Glucose,Whole Blood 111 mg/dL (70-110)
[2024-08-10 06:58] LABS: ALT 11 U/L (4-34); AST 15 U/L (14-36); African American GFR (CKD) 13 (>60 ml/min/1.73 sqM); Albumin 3.2 g/dL (3.5-5.0); Alkaline Phosphatase 84 U/L (38-126); Anion Gap 13 mmol/L; Calcium 8.9 mg/dL (8.4-10.2); Carbon Dioxide 25 mmol/L (22-30); Chloride 98 mmol/L (98-107); Glucose 88 mg/dL (74-99); Non-African American GFR(CKD) 11 (>60 ml/min/1.73 sqM); Potassium 5.2 mmol/L (3.5-5.1); Sodium 136 mmol/L (137-145); Total Bilirubin 0.4 mg/dL (0.2-1.3); Total Protein 5.7 g/dL (6.3-8.2)
[2024-08-10 07:09] LABS: Blood Urea Nitrogen 152 mg/dL (7-17)
[2024-08-10] MEDS ORDERED: ALBUTEROL NEBULIZED 2.5 MG/3 ML INHALATION PRN (08:19)
[2024-08-10] MEDS ORDERED: DEXTROSE 50% SYRINGE 50 ML IVP PRN ×2 (08:22)
[2024-08-10] MEDS: APIXABAN 5 MG TAB PO SCH (08:56)
[2024-08-10] MEDS: DOCUSATE 100 MG CAP PO SCH (08:57)
[2024-08-10] MEDS: METOPROLOL TARTRATE 25 MG TAB PO SCH (08:57)
--- NOTE | 2024-08-10 09:02 | P.NPCON ---
History of Present Illness - Reason for Consult acute renal failure - History of Present Illness Patient is a 74-year-old female with history of type 2 diabetes, CHF, COPD who is brought in from care home due to abnormal labs. No complaints of diarrhea pain cough or chest pain. Serum creatinine was 4.2 on admission and it is down to 3.79 today. Previous creatinine was 2.4 on 08/01/2024 and 0.8 on 07/23/2024. BUN elevated to 152 Serum potassium was 6.0 on admission and down to 5.2 today. Patient has an indwelling Rock catheter. Blood pressure has been low with systolic noted in the 90s. Maintained on JERRY inhibitors and diuretics, currently on hold. Patient was recently discharged from the hospital on 07/27/2024 after hospitalization for lower extremity cellulitis and bacteremia with Enterococcus faecium. Source was likely lower extremity wounds. Patient had also developed acute kidney injury with serum creatinine at 2.4 on 08/01/2024 and it had been 0.8 on 07/23/2024. Patient was discharged on Zyvox. Past Medical History Past Medical History: Heart Failure, COPD, Diabetes Mellitus, GERD/Reflux, Hyperlipidemia, Thyroid Disorder Additional Past Medical History / Comment(s): home O2 3-6L per pt. History of Any Multi-Drug Resistant Organisms: None Reported Past Surgical History: Cholecystectomy Additional Past Surgical History / Comment(s): foot Left plate and pins Past Anesthesia/Blood Transfusion Reactions: No Reported Reaction Past Psychological History: Anxiety Additional Psychological History / Comment(s): Anxiety Smoking Status: Unknown if ever smoked Past Alcohol Use History: None Reported Additional Past Alcohol Use History / Comment(s): STARTED SMOKING AT AGE 16, SIG OTHER STATED SHE SMOKES 1.5 PPD Past Drug Use History: None Reported Additional Drug Use History / Comment(s): RARE USE OF MARIJUANA - Past Family History Mother Family Medical History: Hypertension Father Family Medical History: Cancer Medications and Allergies Home Medications Medication Instructions Recorded Confirmed Type Albuterol Inhaler [Ventolin Hfa 1 - 2 puff INHALATION RT-Q6H PRN 01/08/15 08/09/24 History Inhaler] Enalapril [Vasotec] 20 mg PO DAILY@89907/04/24 08/09/24 History Ergocalciferol [Vitamin D2 (1250 1,250 mcg PO MO@0907/04/24 08/09/24 History Mcg = 37705 Iu)] HYDROcodone/APAP 10-325MG [[place] 1 tab PO TID PRN 07/04/24 08/09/24 History 10-325] traZODone HCL [Desyrel] 25 mg PO HS@209907/04/24 08/09/24 History Apixaban [Eliquis] 5 mg PO BID@0900,209908/09/24 08/09/24 History Budesonide/Formoterol Fumarate 2 puff INHALATION RT-BID@0900,209908/09/24 08/09/24 History [Symbicort 160-4.5 Mcg Inhaler] Bumetanide [BUMEX] 1 mg PO BID@0600,1400 08/09/24 08/09/24 History Clotrimazole/Betameth Cream 1 applic TOPICAL BID 08/09/24 08/09/24 History [Lotrisone] Docusate [Colace] 100 mg PO DAILY@89908/09/24 08/09/24 History Folic Acid 1 mg PO DAILY@89908/09/24 08/09/24 History Glucerna Shake 1 can PO DAILY@89908/09/24 08/09/24 History INSULIN LISPRO (HumaLOG) [HumaLOG] See Protocol SQ ACHS 08/09/24 08/09/24 History Insulin Glargine (Lantus) [Lantus 35 unit SQ HS@209908/09/24 08/09/24 History Vial] Ipratropium-Albuterol Nebulize 3 ml INHALATION RT-Q6H 08/09/24 08/09/24 History [Duoneb 0.5 mg-3 mg/3 ml Soln] Metoprolol Tartrate [Lopressor] 25 mg PO BID@0900,209908/09/24 08/09/24 History Spironolactone [Aldactone] 25 mg PO DAILY@89908/09/24 08/09/24 History Allergies Allergy/AdvReac Type Severity Reaction Status Date / Time Penicillins Allergy Rash/Hives Verified 07/04/24 14:26 Physical Exam Vitals: Vital Signs Temp Pulse Pulse Resp BP BP Pulse Ox 08/10/24 04:00 83 16 116/58 99 08/10/24 02:00 77 18 08/09/24 23:55 97.7 F 77 16 128/68 96 08/09/24 22:44 77 18 08/09/24 21:48 97.7 F 87 16 137/79 98 08/09/24 21:24 97.6 F 80 20 91/59 97 08/09/24 18:00 80 16 90/50 96 08/09/24 17:00 75 18 111/66 98 08/09/24 15:54 70 20 103/88 97 08/09/24 14:45 73 20 93/48 96 08/09/24 12:16 98.4 F 72 18 122/63 97 Intake and Output 08/09/24 08/10/24 08/10/24 22:59 06:59 14:59 Output Total 700 250 Balance -700 -250 Output: Urine 700 250 Other: Voiding Method Indwelling Catheter Indwelling Catheter Weight 93.894 kg 91.5 kg Patient is awake, comfortable, no acute distress Examination of the heart S1 and S2 Examination of the lungs shows bilateral breath sounds are heard no crackles or wheezing Abdomen is soft nontender Examination of lower extremities shows both legs are wrapped chronic skin changes noted with chronic edema. [employer] exam shows patient is able to move all 4 extremities. Results - Lab Results Most recent lab results Calcium 8.9 mg/dL (8.4-10.2) 08/10/24 05:35 08/09/24 23:30 08/10/24 05:35 Assessment and Plan Assessment: 1. Acute kidney injury, ATN, nonoliguric along with component of urine retention, currently with indwelling Rock catheter. Rule out acute interstitial nephritis given recent use of antibiotics. Add gentle IV hydration. UA suggestive of UTI. CT abdomen on 07/15/2024 did not show any evidence of obstruction. 2. Hyperkalemia associated with acute kidney injury, improved. JERRY inhibitors and Aldactone on hold. 3. Recent hospitalization for CHF and bacteremia with blood cultures growing Enterococcus, source was likely cellulitis and lower extremity wounds. Patient was discharged on Zyvox 4. Anemia rule out iron deficiency 5. Acute kidney injury during last admission 2 weeks ago with serum creatinine at 2.4 on 08/01/2024 Plan: Add gentle IV hydration Check urine eosinophils. This may not be accurate if patient has an underlying UTI Repeat labs in a.m. Check iron profile Avoid nephrotoxic agents Continue with antibiotics Thank you for the consultation. We will continue to follow the patient with you during her hospitalization.
--- NOTE | 2024-08-10 10:18 | P.CONS ---
History of Present Illness - Reason for Consult Consult date: 08/10/24 wound care - History of Present Illness This is a 74-year-old patient being seen on 3 S. for nonhealing ulcerations to the left and right buttocks right and left lower extremity and right heel. Patient is a poor historian. Past medical history significant for CHF, COPD, diabetes, GERD, hyperlipidemia. Patient states that she does not know what type of dressings have been utilized or who has been doing her dressings. Patient has a stage II pressure ulcer to the right buttocks measuring approximately 1.5 x 1.0 x 0.2 with granulation seen throughout the wound bed with minimal slough and nonviable tissue present. Wound edges are attached to the wound base no tunneling or undermining noted. Left buttocks is a stage II pressure ulcer measuring approximately 1.0 x 1.0 x 0.2 cm with granulation seen throughout minimal slough and nonviable tissue present wound edges are attached to the wound base no tunneling or undermining noted. Patient has a nonpressure ulceration to the left lateral calf measuring approximately 1 x 1 x 0.2 cm with granulation seen throughout minimal slough and nonviable tissue present wound edges are not attached to the wound base no tunneling or undermining noted. Patient has a nonpressure ulceration to the right lateral calf measuring approximately 1 x 1 x 0.2 cm with slough and nonviable tissue present granulation seen throughout the wound bed. Wound edges are attached to the wou nd base no tunneling or undermining noted. Patient has a stage III pressure ulcer to the right calcaneus the ulceration is odiferous with's serous drainage noted. No granulation seen. No tunneling or undermining noted however the wound edges are not attached to the wound base eschar slough and nonviable tissue present. Review Of Systems: Constitutional: No fever, no chills, no night sweats. No weight change. No weakness, fatigue or lethargy. No daytime sleepiness. Integumentary:reports wounds, no lesions. No rash or pruritus. No unusual bruising. No change in hair or nails. Physical exam: General Appearance: Alert, cooperative, no distress, appears stated age. Skin: See HPI all other Skin color, texture, tugor normal, no rashes or lesions. Neurologic: Alert oriented x3 Assessment: 1. Stage III pressure ulcer right calcaneus 2. Stage II pressure ulcer right buttocks 3. Stage II pressure ulcer left buttocks 4. Nonpressure ulceration right calf with fat layer exposed 5. Left calf nonpressure ulceration with fat layer exposed 6. Diabetic foot ulcer 7. Diabetic with skin ulceration Plan: 1. Apply honey gel and bordered foam to right and left buttocks. Apply honey gel dry gauze rolled gauze and secure with paper tape to bilateral lower extremities. Right calcaneus wound culture, x-ray to rule out osteomyelitis. Honey gel dry gauze rolled gauze and secure with paper tape. Consult infectious disease. Thank you for the consultation any questions please contact the wound care center DNP note has been reviewed and discussed with Dr. Naik and the impression and plan of care has been directed as dictated. Past Medical History Past Medical History: Heart Failure, COPD, Diabetes Mellitus, GERD/Reflux, Hyperlipidemia, Thyroid Disorder Additional Past Medical History / Comment(s): home O2 3-6L per pt. History of Any Multi-Drug Resistant Organisms: None Reported Past Surgical History: Cholecystectomy Additional Past Surgical History / Comment(s): foot Left plate and pins Past Anesthesia/Blood Transfusion Reactions: No Reported Reaction Past Psychological History: Anxiety Additional Psychological History / Comment(s): Anxiety Smoking Status: Unknown if ever smoked Past Alcohol Use History: None Reported Additional Past Alcohol Use History / Comment(s): STARTED SMOKING AT AGE 16, SIG OTHER STATED SHE SMOKES 1.5 PPD Past Drug Use History: None Reported Additional Drug Use History / Comment(s): RARE USE OF MARIJUANA - Past Family History Mother Family Medical History: Hypertension Father Family Medical History: Cancer Medications and Allergies Home Medications Medication Instructions Recorded Confirmed Type Albuterol Inhaler [Ventolin Hfa 1 - 2 puff INHALATION RT-Q6H PRN 01/08/15 08/09/24 History Inhaler] Enalapril [Vasotec] 20 mg PO DAILY@89907/04/24 08/09/24 History Ergocalciferol [Vitamin D2 (1250 1,250 mcg PO MO@89907/04/24 08/09/24 History Mcg = 52700 Iu)] HYDROcodone/APAP 10-325MG [[place] 1 tab PO TID PRN 07/04/24 08/09/24 History 10-325] traZODone HCL [Desyrel] 25 mg PO HS@2100 07/04/24 08/09/24 History Apixaban [Eliquis] 5 mg PO BID@0900,2100 08/09/24 08/09/24 History Budesonide/Formoterol Fumarate 2 puff INHALATION RT-BID@0900,2100 08/09/24 08/09/24 History [Symbicort 160-4.5 Mcg Inhaler] Bumetanide [BUMEX] 1 mg PO BID@0600,1400 08/09/24 08/09/24 History Clotrimazole/Betameth Cream 1 applic TOPICAL BID 08/09/24 08/09/24 History [Lotrisone] Docusate [Colace] 100 mg PO DAILY@0908/09/24 08/09/24 History Folic Acid 1 mg PO DAILY@0908/09/24 08/09/24 History Glucerna Shake 1 can PO DAILY@0908/09/24 08/09/24 History INSULIN LISPRO (HumaLOG) [HumaLOG] See Protocol SQ ACHS 08/09/24 08/09/24 History Insulin Glargine (Lantus) [Lantus 35 unit SQ HS@209908/09/24 08/09/24 History Vial] Ipratropium-Albuterol Nebulize 3 ml INHALATION RT-Q6H 08/09/24 08/09/24 History [Duoneb 0.5 mg-3 mg/3 ml Soln] Metoprolol Tartrate [Lopressor] 25 mg PO BID@0900,2100 08/09/24 08/09/24 History Spironolactone [Aldactone] 25 mg PO DAILY@0908/09/24 08/09/24 History Allergies Allergy/AdvReac Type Severity Reaction Status Date / Time Penicillins Allergy Rash/Hives Verified 07/04/24 14:26 Physical Exam Vitals: Vital Signs Temp Pulse Pulse Resp BP BP Pulse Ox 08/10/24 09:07 98.0 F 87 16 102/42 98 08/10/24 04:00 83 16 116/58 99 08/10/24 02:00 77 18 08/09/24 23:55 97.7 F 77 16 128/68 96 08/09/24 22:44 77 18 08/09/24 21:48 97.7 F 87 16 137/79 98 08/09/24 21:24 97.6 F 80 20 91/59 97 08/09/24 18:00 80 16 90/50 96 08/09/24 17:00 75 18 111/66 98 08/09/24 15:54 70 20 103/88 97 08/09/24 14:45 73 20 93/48 96 08/09/24 12:16 98.4 F 72 18 122/63 97 Intake and Output 08/09/24 08/10/24 08/10/24 22:59 06:59 14:59 Intake Total 100 Output Total 700 250 Balance -700 -250 100 Intake: Oral 100 Output: Urine 700 250 Other: Voiding Method Indwelling Catheter Indwelling Catheter Weight 93.894 kg 91.5 kg Results CBC & Chem 7: 08/09/24 23:30 08/10/24 05:35 Labs: Abnormal Lab Results - Last 24 Hours (Table) 08/09/24 08/09/24 08/09/24 Range/Units 12:48 12:48 12:48 RBC 3.12 L (4.10-5.20) 10*6/uL Hgb 9.0 L D (12.0-15.0) g/dL Hct 27.8 L (37.2-46.3) % MCHC (32.0-37.0) g/dL Plt Count 104 L D (140-440) 10*3/uL Immature Gran # 0.05 H (0.00-0.04) 10*3/uL INR 1.2 H (<1.2) APTT 32.5 H (22.0-30.0) sec Sodium 131 L (137-145) mmol/L Potassium 6.0 H (3.5-5.1) mmol/L Chloride 94 L (98-107) mmol/L Carbon Dioxide 21 L (22-30) mmol/L BUN 155 H* (7-17) mg/dL Creatinine 4.20 H (0.52-1.04) mg/dL Glucose 116 H (74-99) mg/dL POC Glucose (mg/dL) (70-110) mg/dL Total Protein (6.3-8.2) g/dL Albumin (3.5-5.0) g/dL Urine Appearance (Clear) Urine Protein (Negative) Urine Blood (Negative) Urine Nitrite (Negative) Ur Leukocyte Esterase (Negative) Urine RBC (0-5) /hpf Urine WBC (0-5) /hpf Urine Bacteria (None) /hpf Urine Mucus (None) /hpf 08/09/24 08/09/24 08/09/24 Range/Units 12:51 14:34 15:37 RBC (4.10-5.20) 10*6/uL Hgb (12.0-15.0) g/dL Hct (37.2-46.3) % MCHC (32.0-37.0) g/dL Plt Count (140-440) 10*3/uL Immature Gran # (0.00-0.04) 10*3/uL INR (<1.2) APTT (22.0-30.0) sec Sodium 133 L (137-145) mmol/L Potassium 5.8 H (3.5-5.1) mmol/L Chloride 93 L (98-107) mmol/L Carbon Dioxide (22-30) mmol/L BUN 155 H* (7-17) mg/dL Creatinine 4.10 H (0.52-1.04) mg/dL Glucose 114 H (74-99) mg/dL POC Glucose (mg/dL) 137 H (70-110) mg/dL Total Protein (6.3-8.2) g/dL Albumin (3.5-5.0) g/dL Urine Appearance Cloudy H (Clear) Urine Protein Trace H (Negative) Urine Blood Small H (Negative) Urine Nitrite Positive H (Negative) Ur Leukocyte Esterase Large H (Negative) Urine RBC 17 H (0-5) /hpf Urine WBC >182 H (0-5) /hpf Urine Bacteria Many H (None) /hpf Urine Mucus Rare H (None) /hpf 08/09/24 08/09/24 08/09/24 Range/Units 18:26 21:48 23:30 RBC 2.81 L 2.88 L (4.10-5.20) 10*6/uL Hgb 8.2 L 8.5 L (12.0-15.0) g/dL Hct 25.4 L 26.8 L (37.2-46.3) % MCHC 31.7 L (32.0-37.0) g/dL Plt Count 105 L 101 L (140-440) 10*3/uL Immature Gran # 0.05 H (0.00-0.04) 10*3/uL INR (<1.2) APTT (22.0-30.0) sec Sodium (137-145) mmol/L Potassium (3.5-5.1) mmol/L Chloride (98-107) mmol/L Carbon Dioxide (22-30) mmol/L BUN (7-17) mg/dL Creatinine (0.52-1.04) mg/dL Glucose (74-99) mg/dL POC Glucose (mg/dL) 119 H (70-110) mg/dL Total Protein (6.3-8.2) g/dL Albumin (3.5-5.0) g/dL Urine Appearance (Clear) Urine Protein (Negative) Urine Blood (Negative) Urine Nitrite (Negative) Ur Leukocyte Esterase (Negative) Urine RBC (0-5) /hpf Urine WBC (0-5) /hpf Urine Bacteria (None) /hpf Urine Mucus (None) /hpf 08/10/24 08/10/24 Range/Units 05:35 06:24 RBC (4.10-5.20) 10*6/uL Hgb (12.0-15.0) g/dL Hct (37.2-46.3) % MCHC (32.0-37.0) g/dL Plt Count (140-440) 10*3/uL Immature Gran # (0.00-0.04) 10*3/uL INR (<1.2) APTT (22.0-30.0) sec Sodium 136 L (137-145) mmol/L Potassium 5.2 H (3.5-5.1) mmol/L Chloride (98-107) mmol/L Carbon Dioxide (22-30) mmol/L BUN 152 H* (7-17) mg/dL Creatinine 3.79 H (0.52-1.04) mg/dL Glucose (74-99) mg/dL POC Glucose (mg/dL) 111 H (70-110) mg/dL Total Protein 5.7 L (6.3-8.2) g/dL Albumin 3.2 L (3.5-5.0) g/dL Urine Appearance (Clear) Urine Protein (Negative) Urine Blood (Negative) Urine Nitrite (Negative) Ur Leukocyte Esterase (Negative) Urine RBC (0-5) /hpf Urine WBC (0-5) /hpf Urine Bacteria (None) /hpf Urine Mucus (None) /hpf Assessment and Plan (1) Stage III pressure ulcer of right heel Current Visit: Yes Status: Acute Code(s): L89.613 - PRESSURE ULCER OF RIGHT HEEL, STAGE 3 SNOMED Code(s): 45759684219668 (2) Stage II pressure ulcer of left buttock Current Visit: Yes Status: Acute Code(s): L89.322 - PRESSURE ULCER OF LEFT BUTTOCK, STAGE 2 SNOMED Code(s): 78368128555447 (3) Stage II pressure ulcer of right buttock Current Visit: Yes Status: Acute Code(s): L89.312 - PRESSURE ULCER OF RIGHT BUTTOCK, STAGE 2 SNOMED Code(s): 14444316334593 (4) Non-pressure chronic ulcer of left calf with fat layer exposed Current Visit: Yes Status: Acute Code(s): L97.222 - NON-PRESSURE CHRONIC ULCER OF LEFT CALF W FAT LAYER EXPOSED SNOMED Code(s): 17136832007086753 (5) Non-pressure chronic ulcer of right calf with fat layer exposed Current Visit: Yes Status: Acute Code(s): L97.212 - NON-PRESSURE CHRONIC ULCER OF RIGHT CALF W FAT LAYER EXPOSED SNOMED Code(s): 59627630826578093 (6) Type 2 diabetes mellitus with foot ulcer Current Visit: Yes Status: Acute Code(s): E11.621 - TYPE 2 DIABETES MELLITUS WITH FOOT ULCER; L97.509 - NON-PRESSURE CHRONIC ULCER OTH PRT UNSP FOOT W UNSP SEVERITY SNOMED Code(s): 4911317809740 (7) Type 2 diabetes mellitus with other skin ulcer Current Visit: Yes Status: Acute Code(s): E11.622 - TYPE 2 DIABETES MELLITUS WITH OTHER SKIN ULCER; L98.499 - NON-PRESSURE CHRONIC ULCER OF SKIN OF SITES W UNSP SEVERITY SNOMED Code(s): 549228358538525
[2024-08-10 11:11] LABS: Glucose,Whole Blood 152 mg/dL (70-110)
[2024-08-10] MEDS: SYMBICORT 160-4.5 MCG INHALER INHALATION SCH (12:32)
[2024-08-10] MEDS: INSULIN LISPRO (HumaLOG) 100 UNIT/ML 10 mL VL SQ SCH (12:39)
[2024-08-10] MEDS: HYDROcodone/APAP 10-325MG 1 EACH TAB PO PRN (12:55)
[2024-08-10] MEDS: NYSTATIN 100,000 UNIT/GM POWD 15 GM TOPICAL SCH (12:59)
--- NOTE | 2024-08-10 13:06 | P.HPIM ---
History of Present Illness H&P Date: 08/10/24 History of present illness; Patient is a 74-year-old female with COPD on 3-6 L of oxygen at baseline, diabetes, GERD, HLD, hypothyroidism who presents from long-term for abnormal labs. Patient is poor historian and unsure why she is in hospital. She had recent hospitalization for CHF and bacteremia cultures growing Enterococcus and subsequently [facility] Per EMS, patient with abnormal BUN/creatinine. She is denying fever, chills, chest pain, shortness of breath, or dysuria. Spoke with the ER physician, patient admission was accepted by internal medicine service for treatment. REVIEW OF SYSTEMS: Pertinent positives and negatives noted in HPI. PHYSICAL EXAMINATION: Vitals reviewed GENERAL: Resting comfortably in bed. EYES: PERRL, no scleral injection or icterus. HENT: Normocephalic, atraumatic, hearing grossly intact, moist mucous membranes NECK: No tracheal deviation, full range of motion. CARDIOVASCULAR: S1 and S2 present. No murmurs, rubs, or gallops. PULMONARY: Chest is clear to auscultation, no wheezing, rhonchi, or crackles. ABDOMEN: Soft, suprapubic tenderness nondistended. No palpable organomegaly. MUSCULOSKELETAL: No apparent joint swelling and deformities. EXTREMITIES: Venous stasis dermatitis bilaterally with right heel ulcer stage II, bleeding ulcer of left levi, bilateral lower extremity tenderness NEUROLOGICAL: Alert and oriented x 1 to person. Gross neurological examination with no apparent focal deficits. SKIN: No apparent rashes. ER FINDINGS: Labs significant for WBC 7.8, hemoglobin 8.5, platelets 101, sodium 133 => 136, potassium 5.8 => 5.2, BUN 155 => 152 creatinine 4.1 => 3.7 troponin 0.013, UA significant for cloudy appearance, trace protein, small blood, positive nitrate, large leukocyte esterase, WBC> 185 with bacteria EKG independently interpreted showed sinus rhythm with right axis deviation, heart rate of 68, QTc 416, no ST segment elevation or depression seen, no T-wave inversions seen. Chest x-ray done independently interpreted showed cardiomegaly, underlying COPD with possible pulmonary vascular congestion. Improving airspace disease in mid and lower lungs, residual focal 4.3 cm opacity in the right midlung. Assessment and Plan: # UTI #Stage II bilateral buttocks pressure ulcer #Right heel ulceration stage II #Previous bacteremia, Enterococcus faecium and 07/05/2024 #Chronic venous insufficiency #Venous stasis dermatitis #Metabolic encephalopathy likely due to infection Begin ceftriaxone 1 g daily Blood culture ordered PT OT consult Wound care consulted ID consulted #[email or web address], rule out interstitial nephritis due to recent antibiotic use #Anemia, possible REY #Hyperkalemia Given Lokelma Gentle IV fluids Iron profile, urine eosinophils ordered Nephrology consulted #Postmenopausal vaginal bleeding Patient declined pelvic ultrasound Monitor CBC 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 DVT ppx: Heparin 5000 units twice daily F: P.o. E: Replete as needed N: Regular diet Anticipated discharge place: Pending clinical course Anticipated discharge time: Pending clinical course Dr. Archer seen patient with resident, present during exam, and agreed with findings. Dictation was produced using [employer] dictation software. Please excuse any grammatical, word or spelling errors. Past Medical History Past Medical History: Heart Failure, COPD, Diabetes Mellitus, GERD/Reflux, Hyperlipidemia, Thyroid Disorder Additional Past Medical History / Comment(s): home O2 3-6L per pt. History of Any Multi-Drug Resistant Organisms: None Reported Past Surgical History: Cholecystectomy Additional Past Surgical History / Comment(s): foot Left plate and pins Past Anesthesia/Blood Transfusion Reactions: No Reported Reaction Past Psychological History: Anxiety Additional Psychological History / Comment(s): Anxiety Smoking Status: Unknown if ever smoked Past Alcohol Use History: None Reported Additional Past Alcohol Use History / Comment(s): STARTED SMOKING AT AGE 16, SIG OTHER STATED SHE SMOKES 1.5 PPD Past Drug Use History: None Reported Additional Drug Use History / Comment(s): RARE USE OF MARIJUANA - Past Family History Mother Family Medical History: Hypertension Father Family Medical History: Cancer Medications and Allergies Home Medications Medication Instructions Recorded Confirmed Type RX: Albuterol Inhaler [Ventolin 1 - 2 puff INHALATION RT-Q6H PRN 01/08/15 08/09/24 History Hfa Inhaler] RX: Enalapril [Vasotec] 20 mg PO DAILY@0900 07/04/2401/25 History RX: Ergocalciferol [Vitamin D2 1,250 mcg PO MO@89907/04/24 08/09/24 History (1250 Mcg = 70939 Iu)] RX: HYDROcodone/APAP 10-325MG 1 tab PO TID PRN 07/04/24 08/09/24 History [[place] 10-325] RX: traZODone HCL [Desyrel] 25 mg PO HS@209907/04/24 08/09/24 History Budesonide/Formoterol Fumarate 2 puff INHALATION RT-BID@0900,209908/09/24 08/09/24 History [Symbicort 160-4.5 Mcg Inhaler] Clotrimazole/Betameth Cream 1 applic TOPICAL BID 08/09/24 08/09/24 History [Lotrisone] Insulin Glargine (Lantus) [Lantus 35 unit SQ HS@209908/09/24 08/09/24 History Vial] Ipratropium-Albuterol Nebulize 3 ml INHALATION RT-Q6H 08/09/24 08/09/24 History [Duoneb 0.5 mg-3 mg/3 ml Soln] RX: Apixaban [Eliquis] 5 mg PO BID@0900,209908/09/24 08/09/24 History RX: Bumetanide [BUMEX] 1 mg PO BID@0600,1400 08/09/24 08/09/24 History RX: Docusate [Colace] 100 mg PO DAILY@89908/09/24 08/09/24 History RX: Folic Acid 1 mg PO DAILY@89908/09/24 08/09/24 History RX: Glucerna Shake 1 can PO DAILY@00 08/09/24 08/09/24 History RX: INSULIN LISPRO (HumaLOG) See Protocol SQ ACHS 08/09/24 08/09/24 History [HumaLOG] RX: Metoprolol Tartrate [Lopressor] 25 mg PO BID@0900,2100 08/09/24 08/09/24 History RX: Spironolactone [Aldactone] 25 mg PO DAILY@0900 08/09/24 08/09/24 History Allergies Allergy/AdvReac Type Severity Reaction Status Date / Time Penicillins Allergy Rash/Hives Verified 07/04/24 14:26 Physical Exam Vitals: Vital Signs Temp Pulse Pulse Resp BP BP Pulse Ox 08/10/24 04:00 83 16 116/58 99 08/10/24 02:00 77 18 08/09/24 23:55 97.7 F 77 16 128/68 96 08/09/24 22:44 77 18 08/09/24 21:48 97.7 F 87 16 137/79 98 08/09/24 21:24 97.6 F 80 20 91/59 97 08/09/24 18:00 80 16 90/50 96 08/09/24 17:00 75 18 111/66 98 08/09/24 15:54 70 20 103/88 97 08/09/24 14:45 73 20 93/48 96 08/09/24 12:16 98.4 F 72 18 122/63 97 Intake and Output 08/09/24 08/10/24 08/10/24 22:59 06:59 14:59 Output Total 700 250 Balance -700 -250 Output: Urine 700 250 Other: Voiding Method Indwelling Catheter Indwelling Catheter Weight 93.894 kg 91.5 kg Results CBC & Chem 7: 08/09/24 23:30 08/10/24 05:35 Labs: Abnormal Lab Results - Last 24 Hours (Table) 08/09/24 08/09/24 08/09/24 Range/Units 12:48 12:48 12:48 RBC 3.12 L (4.10-5.20) 10*6/uL Hgb 9.0 L D (12.0-15.0) g/dL Hct 27.8 L (37.2-46.3) % MCHC (32.0-37.0) g/dL Plt Count 104 L D (140-440) 10*3/uL Immature Gran # 0.05 H (0.00-0.04) 10*3/uL INR 1.2 H (<1.2) APTT 32.5 H (22.0-30.0) sec Sodium 131 L (137-145) mmol/L Potassium 6.0 H (3.5-5.1) mmol/L Chloride 94 L (98-107) mmol/L Carbon Dioxide 21 L (22-30) mmol/L BUN 155 H* (7-17) mg/dL Creatinine 4.20 H (0.52-1.04) mg/dL Glucose 116 H (74-99) mg/dL POC Glucose (mg/dL) (70-110) mg/dL Total Protein (6.3-8.2) g/dL Albumin (3.5-5.0) g/dL Urine Appearance (Clear) Urine Protein (Negative) Urine Blood (Negative) Urine Nitrite (Negative) Ur Leukocyte Esterase (Negative) Urine RBC (0-5) /hpf Urine WBC (0-5) /hpf Urine Bacteria (None) /hpf Urine Mucus (None) /hpf 08/09/24 08/09/24 08/09/24 Range/Units 12:51 14:34 15:37 RBC (4.10-5.20) 10*6/uL Hgb (12.0-15.0) g/dL Hct (37.2-46.3) % MCHC (32.0-37.0) g/dL Plt Count (140-440) 10*3/uL Immature Gran # (0.00-0.04) 10*3/uL INR (<1.2) APTT (22.0-30.0) sec Sodium 133 L (137-145) mmol/L Potassium 5.8 H (3.5-5.1) mmol/L Chloride 93 L (98-107) mmol/L Carbon Dioxide (22-30) mmol/L BUN 155 H* (7-17) mg/dL Creatinine 4.10 H (0.52-1.04) mg/dL Glucose 114 H (74-99) mg/dL POC Glucose (mg/dL) 137 H (70-110) mg/dL Total Protein (6.3-8.2) g/dL Albumin (3.5-5.0) g/dL Urine Appearance Cloudy H (Clear) Urine Protein Trace H (Negative) Urine Blood Small H (Negative) Urine Nitrite Positive H (Negative) Ur Leukocyte Esterase Large H (Negative) Urine RBC 17 H (0-5) /hpf Urine WBC >182 H (0-5) /hpf Urine Bacteria Many H (None) /hpf Urine Mucus Rare H (None) /hpf 08/09/24 08/09/24 08/09/24 Range/Units 18:26 21:48 23:30 RBC 2.81 L 2.88 L (4.10-5.20) 10*6/uL Hgb 8.2 L 8.5 L (12.0-15.0) g/dL Hct 25.4 L 26.8 L (37.2-46.3) % MCHC 31.7 L (32.0-37.0) g/dL Plt Count 105 L 101 L (140-440) 10*3/uL Immature Gran # 0.05 H (0.00-0.04) 10*3/uL INR (<1.2) APTT (22.0-30.0) sec Sodium (137-145) mmol/L Potassium (3.5-5.1) mmol/L Chloride (98-107) mmol/L Carbon Dioxide (22-30) mmol/L BUN (7-17) mg/dL Creatinine (0.52-1.04) mg/dL Glucose (74-99) mg/dL POC Glucose (mg/dL) 119 H (70-110) mg/dL Total Protein (6.3-8.2) g/dL Albumin (3.5-5.0) g/dL Urine Appearance (Clear) Urine Protein (Negative) Urine Blood (Negative) Urine Nitrite (Negative) Ur Leukocyte Esterase (Negative) Urine RBC (0-5) /hpf Urine WBC (0-5) /hpf Urine Bacteria (None) /hpf Urine Mucus (None) /hpf 08/10/24 08/10/24 Range/Units 05:35 06:24 RBC (4.10-5.20) 10*6/uL Hgb (12.0-15.0) g/dL Hct (37.2-46.3) % MCHC (32.0-37.0) g/dL Plt Count (140-440) 10*3/uL Immature Gran # (0.00-0.04) 10*3/uL INR (<1.2) APTT (22.0-30.0) sec Sodium 136 L (137-145) mmol/L Potassium 5.2 H (3.5-5.1) mmol/L Chloride (98-107) mmol/L Carbon Dioxide (22-30) mmol/L BUN 152 H* (7-17) mg/dL Creatinine 3.79 H (0.52-1.04) mg/dL Glucose (74-99) mg/dL POC Glucose (mg/dL) 111 H (70-110) mg/dL Total Protein 5.7 L (6.3-8.2) g/dL Albumin 3.2 L (3.5-5.0) g/dL Urine Appearance (Clear) Urine Protein (Negative) Urine Blood (Negative) Urine Nitrite (Negative) Ur Leukocyte Esterase (Negative) Urine RBC (0-5) /hpf Urine WBC (0-5) /hpf Urine Bacteria (None) /hpf Urine Mucus (None) /hpf Thrombosis Risk Factor Assmnt - Choose All That Apply Any of the Below Risk Factors Present?: Yes Each Factor Represents 1 point: Obesity (BMI >25), Swollen legs (current) Other Risk Factors: Yes Each Risk Factor Represents 2 Points: Age 61-74 years, Patient confined to bed Thrombosis Risk Factor Assessment Total Risk Factor Score: 6 Thrombosis Risk Factor Assessment Level: High Risk
--- NOTE | 2024-08-10 15:09 | XR ---
EXAMINATION TYPE: XR foot limited RT DATE OF EXAM: 08/10/2024 2:18 PM COMPARISON: 2 views CLINICAL INDICATION: Female, 74 years old with history of pressure ulcer stage 3, r/o Osteomyelitis; PHH, pain TECHNIQUE: 2 views FINDINGS: Diffuse osteopenia. Generalized soft tissue swelling. Exact site of soft tissue ulcer is no t clearly identified, possibly along the posterior heel. This is the case, no discrete lytic destruct ion is identified along the posterior calcaneus. Vascular calcifications suggest underlying diabetes and/or chronic kidney disease. No displaced fracture seen. Moderate sized plantar heel spur. IMPRESSION: Limited by osteopenia, positioning, and diffuse soft tissue swelling. Unable to clearly identify the site of soft tissue ulcer, possibly along the posterior heel. If this is the case, there is no convin cing radiographic evidence of osteomyelitis at this time. If persistent clinical concern, short inter sharon follow-up can be performed. [facility], Workstation: [email or web address], 08/10/2024 3:06 PM
[2024-08-10 15:22] LABS: HCT 24.5 % (37.2-46.3); MCH 30.1 pg (27.0-32.0); MCHC 32.7 g/dL (32.0-37.0); MCV 92.1 fL (80.0-97.0); Mean Platelet Volume 11.3 fL (9.5-12.2); Platelet Count 121 10*3/uL (140-440); RBC 2.66 10*6/uL (4.10-5.20); RDW 15.2 % (11.5-14.5); WBC 7.96 10*3/uL (4.50-10.00)
[2024-08-10] MEDS ORDERED: cefTRIAXone 2 GM in DEXTROSE 5% IN WATER 50 ML IVPB SCH (16:00)
[2024-08-10 16:11] LABS: Glucose,Whole Blood 163 mg/dL (70-110)
[2024-08-10] MEDS: IPRATROPIUM-ALBUTEROL 3 ML NEB INHALATION SCH (16:29)
--- NOTE | 2024-08-10 16:52 | US ---
EXAMINATION TYPE: US pelvis complete transvag DATE OF EXAM: 08/10/2024 COMPARISON: US CLINICAL INDICATION: Female, 74 years old with history of vaginal bleeding; Heavy postmenopausal vagi nal bleeding x "few weeks" TECHNIQUE: Transvaginal (TV) and Transabdominal (TA) . Transabdominal grayscale sonographic images of the pelvis were acquired. Transvaginal sonographic im ages were medically necessary to better assess the following anatomy: Ordered per physician Doppler imaging: Not performed. FINDINGS: Date of LMP: Unknown EXAM MEASUREMENTS: Uterus: 7.5 x 3.8 x 5.0 cm Endometrial Stripe: 0.8 cm In-patient TA and TV scan attempted- pt obese and immobile, unable to bend knees, in pain during dexter th exams- limited views both TA and TV 1. Uterus: TA limited views show normal uterine fundus and thickened endometrium, TV views show hypo echoic area lower uterine segment= 3.3 x 3.2 x 3.8 cm ?blood vs. fibroid, vs. other etiology 2. Endometrium: Only visualized TA - appeared thickened 3. Right Ovary: Obscured by overlying bowel gas 4. Left Ovary: Obscured by overlying bowel gas 5. Bilateral Adnexa: wnl 6. Posterior cul-de-sac: wnl IMPRESSION: Markedly limited exam as mentioned above. The endometrial stripe appears thickened up to 8 mm. In addition, there is a possible mass, fibroid, or blood clot measuring up to 3.8 cm at the low er uterine segment. 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 Un able to visualize either ovary. [facility], Workstation: [id number], 08/10/2024 4:50 PM
[2024-08-10] MEDS: SODIUM CHLORIDE 0.9% 1,000 ML IV SCH (17:04)
[2024-08-10] MEDS: ACETAMINOPHEN TAB 325 MG TAB PO PRN (17:25)
[2024-08-10 18:23] LABS: % Iron Saturation 28.45 (12.00-45.00)
--- NOTE | 2024-08-10 18:24 | P.OBCN ---
History of Present Illness Consult date: 08/10/24 Reason for consult: other (Postmenopausal bleeding) Chief complaint: Postmenopausal bleeding History of present illness: 74-year-old female admitted to the medical service with noted vaginal bleeding. Known prior history of COPD on chronic oxygen, prior diagnosis of bacteremia, culture positive with Enterococcus. Patient is a resident at a long-term care facility and states bleeding began 3 to 4 days ago. Patient was previously on Eliquis, this was discontinued today and she was begun on heparin subcu. Bleeding has improved through the day. RN did note positive dark clots on exam through the day. Patient denies cramping and only complaint is lower extremity discomfort. Ultrasound was performed technically limited, uterus appeared normal in size, upon examination a small clot was appreciated in the lower uterine segment. 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 History of Any Multi-Drug Resistant Organisms: None Reported Past Surgical History: Cholecystectomy Additional Past Surgical History / Comment(s): foot Left plate and pins Past Anesthesia/Blood Transfusion Reactions: No Reported Reaction Past Psychological History: Anxiety Additional Psychological History / Comment(s): Anxiety Smoking Status: Unknown if ever smoked Past Alcohol Use History: None Reported Additional Past Alcohol Use History / Comment(s): STARTED SMOKING AT AGE 16, SIG OTHER STATED SHE SMOKES 1.5 PPD Past Drug Use History: None Reported Additional Drug Use History / Comment(s): RARE USE OF MARIJUANA - Past Family History Mother Family Medical History: Hypertension Father Family Medical History: Cancer Medications and Allergies Home Medications Medication Instructions Recorded Confirmed Type Albuterol Inhaler [Ventolin Hfa 1 - 2 puff INHALATION RT-Q6H PRN 01/08/15 08/09/24 History Inhaler] Enalapril [Vasotec] 20 mg PO DAILY@0900 07/04/24 08/09/24 History Ergocalciferol [Vitamin D2 (1250 1,250 mcg PO MO@0900 07/04/24 08/09/24 History Mcg = 14621 Iu)] HYDROcodone/APAP 10-325MG [[place] 1 tab PO TID PRN 07/04/24 08/09/24 History 10-325] traZODone HCL [Desyrel] 25 mg PO HS@209907/04/24 08/09/24 History Apixaban [Eliquis] 5 mg PO BID@0900,209908/09/24 08/09/24 History Budesonide/Formoterol Fumarate 2 puff INHALATION RT-BID@0900,209908/09/24 08/09/24 History [Symbicort 160-4.5 Mcg Inhaler] Bumetanide [BUMEX] 1 mg PO BID@0600,1400 08/09/24 08/09/24 History Clotrimazole/Betameth Cream 1 applic TOPICAL BID 08/09/24 08/09/24 History [Lotrisone] Docusate [Colace] 100 mg PO DAILY@0908/09/24 08/09/24 History Folic Acid 1 mg PO DAILY@0908/09/24 08/09/24 History Glucerna Shake 1 can PO DAILY@89908/09/24 08/09/24 History INSULIN LISPRO (HumaLOG) [HumaLOG] See Protocol SQ ACHS 08/09/24 08/09/24 History Insulin Glargine (Lantus) [Lantus 35 unit SQ HS@209908/09/24 08/09/24 History Vial] Ipratropium-Albuterol Nebulize 3 ml INHALATION RT-Q6H 08/09/24 08/09/24 History [Duoneb 0.5 mg-3 mg/3 ml Soln] Metoprolol Tartrate [Lopressor] 25 mg PO BID@0900,209908/09/24 08/09/24 History Spironolactone [Aldactone] 25 mg PO DAILY@0900 08/09/24 08/09/24 History Allergies Allergy/AdvReac Type Severity Reaction Status Date / Time Penicillins Allergy Rash/Hives Verified 07/04/24 14:26 Exam Osteopathic Statement: *. No significant issues noted on an osteopathic structural exam other than those noted in the History and Physical/Consult. Vital Signs Temp Pulse Pulse Resp BP BP Pulse Ox 08/10/24 16:41 80 08/10/24 16:32 97 08/10/24 16:29 76 08/10/24 16:00 98.0 F 79 16 95/61 98 08/10/24 14:00 77 16 08/10/24 12:00 77 16 107/70 97 08/10/24 09:10 87 16 08/10/24 09:07 98.0 F 87 16 102/42 98 08/10/24 04:00 83 16 116/58 99 08/10/24 02:00 77 18 08/09/24 23:55 97.7 F 77 16 128/68 96 08/09/24 22:44 77 18 08/09/24 21:48 97.7 F 87 16 137/79 98 08/09/24 21:24 97.6 F 80 20 91/59 97 Intake and Output 08/10/24 08/10/24 08/10/24 06:59 14:59 22:59 Intake Total 400 75 Output Total 250 650 Balance -250 400 -575 Intake: Oral 400 75 Output: Urine 250 650 Other: Voiding Method Indwelling Catheter Indwelling Catheter # Bowel Movements 0 Weight 91.5 kg Upon entering the room patient appears comfortable resting in bed, abdomen is soft with hernia appreciated, external genitalia is appropriate for age, pad is on and appears streaked with dark blood. On bimanual annual exam large amount of stool is noted in the rectum, minimal appreciated in the pelvis, secondary to patient discomfort. Blood was appreciated on my glove dark in nature, no clots were appreciated Results Result Diagrams: 08/10/24 15:06 08/10/24 05:35 Abnormal Lab Results - Last 24 Hours (Table) 08/09/24 08/09/24 08/09/24 Range/Units 18:26 21:48 23:30 RBC 2.81 L 2.88 L (4.10-5.20) 10*6/uL Hgb 8.2 L 8.5 L (12.0-15.0) g/dL Hct 25.4 L 26.8 L (37.2-46.3) % MCHC 31.7 L (32.0-37.0) g/dL Plt Count 105 L 101 L (140-440) 10*3/uL Immature Gran # 0.05 H (0.00-0.04) 10*3/uL Sodium (137-145) mmol/L Potassium (3.5-5.1) mmol/L BUN (7-17) mg/dL Creatinine (0.52-1.04) mg/dL POC Glucose (mg/dL) 119 H (70-110) mg/dL Total Protein (6.3-8.2) g/dL Albumin (3.5-5.0) g/dL 08/10/24 08/10/24 08/10/24 Range/Units 05:35 06:24 11:10 RBC (4.10-5.20) 10*6/uL Hgb (12.0-15.0) g/dL Hct (37.2-46.3) % MCHC (32.0-37.0) g/dL Plt Count (140-440) 10*3/uL Immature Gran # (0.00-0.04) 10*3/uL Sodium 136 L (137-145) mmol/L Potassium 5.2 H (3.5-5.1) mmol/L BUN 152 H* (7-17) mg/dL Creatinine 3.79 H (0.52-1.04) mg/dL POC Glucose (mg/dL) 111 H 152 H (70-110) mg/dL Total Protein 5.7 L (6.3-8.2) g/dL Albumin 3.2 L (3.5-5.0) g/dL 08/10/24 08/10/24 Range/Units 15:06 16:09 RBC 2.66 L (4.10-5.20) 10*6/uL Hgb 8.0 L (12.0-15.0) g/dL Hct 24.5 L (37.2-46.3) % MCHC (32.0-37.0) g/dL Plt Count 121 L (140-440) 10*3/uL Immature Gran # (0.00-0.04) 10*3/uL Sodium (137-145) mmol/L Potassium (3.5-5.1) mmol/L BUN (7-17) mg/dL Creatinine (0.52-1.04) mg/dL POC Glucose (mg/dL) 163 H (70-110) mg/dL Total Protein (6.3-8.2) g/dL Albumin (3.5-5.0) g/dL Assessment and Plan (1) Postmenopausal bleeding Current Visit: Yes Status: Acute Code(s): N95.0 - POSTMENOPAUSAL BLEEDING SNOMED Code(s): 28165964 Plan: Suspect postmenopausal bleeding secondary to Eliquis. Patient has limited mob ility and I am unable to perform endometrial biopsy in a hospital bed. If bleeding increases would consider hysteroscopy, dilation and curettage but would want primary service to clear this patient medically prior to taking her to the operating suite. Will follow along, Thank you kindly for this consult
[2024-08-10] MEDS: INSULIN GLARGINE (LANTUS) 100 UNIT/ML SYR SQ SCH (19:52)
[2024-08-10] MEDS: traZODone HCL 50 MG TAB PO SCH (19:53)
[2024-08-10] MEDS: bisacodyL 10 MG SUPP RECTAL ONE (19:53)
[2024-08-10 19:58] LABS: Glucose,Whole Blood 177 mg/dL (70-110)
[2024-08-10] MEDS ORDERED: HEPARIN SODIUM,PORCINE 5,000 UNIT/ML 1 ML VIAL SQ SCH (21:00)
[2024-08-10] MEDS ORDERED: INSULIN GLARGINE (LANTUS) 100 UNIT/ML SYR SQ SCH ×2 (21:00)
[2024-08-11 06:01] LABS: Glucose,Whole Blood 101 mg/dL (70-110)
[2024-08-11 07:37] LABS: Basophils # (A) 0.04 10*3/uL (0.00-0.10); Basophils % (A) 0.6 %; Eosinophils # (A) 0.24 10*3/uL (0.04-0.35); Eosinophils % (A) 3.7 %; HCT 23.6 % (37.2-46.3); HGB 7.4 g/dL (12.0-15.0); Lymphocytes # (A) 1.46 10*3/uL (0.90-5.00); Lymphocytes % (A) 22.7 %; MCH 29.1 pg (27.0-32.0); MCHC 31.4 g/dL (32.0-37.0); MCV 92.9 fL (80.0-97.0); Mean Platelet Volume 11.3 fL (9.5-12.2); Monocytes # (A) 0.46 10*3/uL (0.20-1.00); Monocytes % (A) 7.2 %; Neutrophils # (A) 4.19 10*3/uL (1.80-7.70); Neutrophils % (A) 65.2 %; Platelet Count 121 10*3/uL (140-440); RBC 2.54 10*6/uL (4.10-5.20); RDW 15.3 % (11.5-14.5); WBC 6.43 10*3/uL (4.50-10.00)
[2024-08-11 07:58] LABS: African American GFR (CKD) 23 (>60 ml/min/1.73 sqM); Anion Gap 9 mmol/L; Calcium 8.4 mg/dL (8.4-10.2); Carbon Dioxide 24 mmol/L (22-30); Chloride 103 mmol/L (98-107); Glucose 85 mg/dL (74-99); Non-African American GFR(CKD) 20 (>60 ml/min/1.73 sqM); Potassium 4.8 mmol/L (3.5-5.1); Sodium 136 mmol/L (137-145)
[2024-08-11] MEDS: IPRATROPIUM-ALBUTEROL 3 ML NEB INHALATION SCH (08:16)
[2024-08-11 08:17] LABS: Blood Urea Nitrogen 116 mg/dL (7-17)
[2024-08-11] MEDS ORDERED: cefTRIAXone 1,000 MG VIAL (IM USE) IM SCH (09:00)
[2024-08-11 11:57] LABS: Glucose,Whole Blood 131 mg/dL (70-110)
--- NOTE | 2024-08-11 14:02 | P.PN ---
Subjective Progress Note Date: 08/11/24 Patient seen in follow up for STEWART. Having pain in feet today. Tolerating PO intake. Remain on IVF. Creatinine improving. Patient is awake, comfortable, no acute distress Examination of the heart S1 and S2 Examination of the lungs shows bilateral breath sounds are heard no crackles or wheezing Abdomen is soft nontender Examination of lower extremities shows both legs are wrapped chronic skin changes noted with chronic edema. FLOOR GRINDER exam shows patient is able to move all 4 extremities. Objective - Vital Signs Vital signs: Vital Signs Temp 98.5 F 08/11/24 07:51 Pulse 72 08/11/24 08:26 Resp 17 08/11/24 07:52 BP 102/66 08/11/24 07:51 Pulse Ox 96 08/11/24 08:18 FiO2 Intake & Output 08/10/24 08/11/24 08/11/24 18:59 06:59 18:59 Intake Total 475 360 Output Total 650 1325 Balance -175 -965 Weight 94 kg Intake: Oral 475 360 Output: Urine 650 1325 Other: Voiding Method Indwelling Catheter Indwelling Catheter Indwelling Catheter # Bowel Movements 0 - Labs CBC & Chem 7: 08/11/24 06:18 08/11/24 06:18 Labs: Abnormal Lab Results - Last 24 Hours (Table) 08/10/24 08/10/24 08/10/24 Range/Units 05:35 15:06 16:09 RBC 2.66 L (4.10-5.20) 10*6/uL Hgb 8.0 L (12.0-15.0) g/dL Hct 24.5 L (37.2-46.3) % MCHC (32.0-37.0) g/dL Plt Count 121 L (140-440) 10*3/uL Sodium (137-145) mmol/L BUN (7-17) mg/dL Creatinine (0.52-1.04) mg/dL POC Glucose (mg/dL) 163 H (70-110) mg/dL Transferrin 171.0 L (204.0-354.0) mg/dL 08/10/24 08/11/24 08/11/24 Range/Units 19:57 06:18 06:18 RBC 2.54 L (4.10-5.20) 10*6/uL Hgb 7.4 L (12.0-15.0) g/dL Hct 23.6 L (37.2-46.3) % MCHC 31.4 L (32.0-37.0) g/dL Plt Count 121 L (140-440) 10*3/uL Sodium 136 L (137-145) mmol/L BUN 116 H* (7-17) mg/dL Creatinine 2.40 H (0.52-1.04) mg/dL POC Glucose (mg/dL) 177 H (70-110) mg/dL Transferrin (204.0-354.0) mg/dL Assessment and Plan Assessment: 1. Acute kidney injury, ATN, nonoliguric along with component of urine rete ntion, currently with indwelling [place] catheter. On gentle IV hydration. UA suggestive of UTI. CT abdomen on 07/15/2024 did not show any evidence of obstruction. Presented with creatinine 4.1, improved to 2.4 today. 2. Hyperkalemia associated with acute kidney injury, improved. JERRY inhibitors and Aldactone on hold. 3. Recent hospitalization for CHF and bacteremia with blood cultures growing Enterococcus, source was likely cellulitis and lower extremity wounds. Patient was discharged on Zyvox 4. Anemia rule out iron deficiency 5. Acute kidney injury during last admission 2 weeks ago with serum creatinine at 2.4 on 08/01/2024 Plan: Gentle IV hydration Repeat labs in a.m. Avoid nephrotoxic agents Continue with antibiotics Continue to hold Bumex, spironolactone, ACEi
--- NOTE | 2024-08-11 14:26 | P.PN ---
Subjective Progress Note Date: 08/11/24 History of present illness; Patient is a 74-year-old female with COPD on 3-6 L of oxygen at baseline, diabe ruthy, GERD, HLD, hypothyroidism who presents from intermediate for abnormal labs. Patient is poor historian and unsure why she is in hospital. She had recent hospitalization for CHF and bacteremia cultures growing Enterococcus and subsequently discharged on antibiotics to [facility]. Per EMS, patient with abnormal BUN/creatinine. She is denying fever, chills, chest pain, shortness of breath, or dysuria. 08/11/2024. Patient seen and examined at bedside. She remains on ceftriaxone. She is alert and oriented to self only. Gentle IV fluids in setting of CHF. Today's labs hemoglobin 7.4, platelets 121, transferrin 171, sodium 136, potassium 4.8, BUN 116, creatinine 2.4. Transvaginal ultrasound with thickened endometrial stripe up to 8 mm, possible mass, fibroid, blood clot measuring up to 3.8 cm. 2 view right foot x-ray with no convincing evidence of osteomyelitis. REVIEW OF SYSTEMS: Pertinent positives and negatives noted in HPI. PHYSICAL EXAMINATION: Vitals reviewed GENERAL: Resting comfortably in bed. NECK: No tracheal deviation, full range of motion. CARDIOVASCULAR: S1 and S2 present. No murmurs, rubs, or gallops. PULMONARY: Chest is clear to auscultation, no wheezing, rhonchi, or crackles. ABDOMEN: Soft, suprapubic tenderness nondistended. No palpable organomegaly. MUSCULOSKELETAL: No apparent joint swelling and deformities. EXTREMITIES: Venous stasis dermatitis bilaterally with right heel ulcer stage II, bleeding ulcer of left levi, bilateral lower extremity tenderness NEUROLOGICAL: Alert and oriented x 1 to person. Gross neurological examination with no apparent focal deficits. SKIN: No apparent rashes. Assessment and Plan: # UTI #Stage II bilateral buttocks pressure ulcer #Right heel ulceration stage II #Previous bacteremia, Enterococcus faecium and 07/05/2024 #Chronic venous insufficiency #Venous stasis dermatitis #Metabolic encephalopathy likely due to infection Begin ceftriaxone 1 g daily Blood culture pending PT OT consult Wound care following ID following #STEWART, rule out interstitial nephritis due to recent antibiotic use, improving #CHF, LV 55 to 60%, severe pulmonary hypertension, not in exacerbation #Anemia, possible REY #Hyperkalemia, improved Given Lokelma Gentle IV fluids Nephrology consulted #Postmenopausal vaginal bleeding Transvaginal ultrasound with thickened endometrial stripe up to 8 mm, possible mass, fibroid, blood clot measuring up to 3.8 cm Monitor CBC Plan for potential hysterectomy, D&C if bleeding continues FINAL INSPECTOR BALANCE WHEEL consulted #Right lung lesion Being followed outpatient PET scan planned as per family #Diabetes mellitus, type 2 Begin Accu-Cheks and low-dose sliding scale, monitor for hypoglycemia Resume home long-acting insulin 15 units #COPD #Chronic hypoxic respiratory failure, 3-6 L O2 baseline Continue nasal cannula, and resume home respiratory medication Will resume home medications, monitor CBC, CMP. DVT ppx: Hold for acute bleeding, SCDs F: IV fluids E: Replete as needed N: Regular diet Dr. Archer seen patient with resident, present during exam, and agreed with findings. Dictation was produced using [employer] dictation software. Please excuse any grammatical, word or spelling errors. Objective - Vital Signs Vital signs: Vital Signs Temp 98.5 F 08/11/24 07:51 Pulse 77 08/11/24 07:51 Resp 17 08/11/24 07:51 BP 102/66 08/11/24 07:51 Pulse Ox 99 08/11/24 07:51 FiO2 Intake & Output 08/10/24 08/11/24 08/11/24 18:59 06:59 18:59 Intake Total 475 360 Output Total 650 1325 Balance -175 -965 Weight 94 kg Intake: Oral 475 360 Output: Urine 650 1325 Other: Voiding Method Indwelling Catheter Indwelling Catheter # Bowel Movements 0 - Labs CBC & Chem 7: 08/11/24 06:18 08/11/24 06:18 Labs: Abnormal Lab Results - Last 24 Hours (Table) 08/10/24 08/10/24 08/10/24 Range/Units 05:35 11:10 15:06 RBC 2.66 L (4.10-5.20) 10*6/uL Hgb 8.0 L (12.0-15.0) g/dL Hct 24.5 L (37.2-46.3) % MCHC (32.0-37.0) g/dL Plt Count 121 L (140-440) 10*3/uL POC Glucose (mg/dL) 152 H (70-110) mg/dL Transferrin 171.0 L (204.0-354.0) mg/dL 08/10/24 08/10/24 08/11/24 Range/Units 16:09 19:57 06:18 RBC 2.54 L (4.10-5.20) 10*6/uL Hgb 7.4 L (12.0-15.0) g/dL Hct 23.6 L (37.2-46.3) % MCHC 31.4 L (32.0-37.0) g/dL Plt Count 121 L (140-440) 10*3/uL POC Glucose (mg/dL) 163 H 177 H (70-110) mg/dL Transferrin (204.0-354.0) mg/dL
[2024-08-11 16:27] LABS: Glucose,Whole Blood 110 mg/dL (70-110)
[2024-08-11 19:54] LABS: Glucose,Whole Blood 108 mg/dL (70-110)
--- NOTE | 2024-08-11 22:52 | P.CONS ---
History of Present Illness - Reason for Consult Consult date: 08/11/24 UTI, bilateral lower extremity sacral pressure ulcer Requesting physician: Emiliano Zuleta - Chief Complaint Abnormal labs x 1 day - History of Present Illness Patient is a 74-year-old female with a past medical history significant for COPD diabetes mellitus reflux hyperlipidemia heart failure patient has been brought into the [facility] for evaluation of abnormal labs done in the outpatient setting with the patient noticed to have elevated BUN and creatinine patient also noticed to have bilateral lower extremity and sacral ulcer positive UA concerning for UTI from previous consultation at the time my evaluation patient is afebrile and no fever have been called subsequently patient was not tachycardic or hypotensive mildly hypoxic currently on 2 L nasal cannula oxygen patient did have a white count of 7.80 he did have elevated BUN and creatinine potassium is 5.8 repeat is 5.2 UA has been positive and the culture is currently pending patient is currently lethargic though arousable but not a very good historian so most information has been obtained from review of the chart IM nursing staff Review of Systems Positive point and negatives has been mentioned in the HPI, complete review of systems was performed and all other systems are negative Past Medical History Past Medical History: Heart Failure, COPD, Diabetes Mellitus, GERD/Reflux, Hyperlipidemia, Thyroid Disorder Additional Past Medical History / Comment(s): home O2 3-6L per pt. History of Any Multi-Drug Resistant Organisms: None Reported Past Surgical History: Cholecystectomy Additional Past Surgical History / Comment(s): foot Left plate and pins Past Anesthesia/Blood Transfusion Reactions: No Reported Reaction Past Psychological History: Anxiety Additional Psychological History / Comment(s): Anxiety Smoking Status: Unknown if ever smoked Past Alcohol Use History: None Reported Additional Past Alcohol Use History / Comment(s): STARTED SMOKING AT AGE 16, SIG OTHER STATED SHE SMOKES 1.5 PPD Past Drug Use History: None Reported Additional Drug Use History / Comment(s): RARE USE OF MARIJUANA - Past Family History Mother Family Medical History: Hypertension Father Family Medical History: Cancer Medications and Allergies Home Medications Medication Instructions Recorded Confirmed Type Albuterol Inhaler [Ventolin Hfa 1 - 2 puff INHALATION RT-Q6H PRN 01/08/15 08/09/24 History Inhaler] Enalapril [Vasotec] 20 mg PO DAILY@0900 07/04/24 08/09/24 History Ergocalciferol [Vitamin D2 (1250 1,250 mcg PO MO@0907/04/24 08/09/24 History Mcg = 16803 Iu)] HYDROcodone/APAP 10-325MG [Leopold 1 tab PO TID PRN 07/04/24 08/09/24 History 10-325] traZODone HCL [Desyrel] 25 mg PO HS@209907/04/24 08/09/24 History Apixaban [Eliquis] 5 mg PO BID@0900,209908/09/24 08/09/24 History Budesonide/Formoterol Fumarate 2 puff INHALATION RT-BID@0900,209908/09/24 08/09/24 History [Symbicort 160-4.5 Mcg Inhaler] Bumetanide [BUMEX] 1 mg PO BID@0600,1400 08/09/24 08/09/24 History Clotrimazole/Betameth Cream 1 applic TOPICAL BID 08/09/24 08/09/24 History [Lotrisone] Docusate [Colace] 100 mg PO DAILY@0900 08/09/24 08/09/24 History Folic Acid 1 mg PO DAILY@0908/09/24 08/09/24 History Glucerna Shake 1 can PO DAILY@89908/09/24 08/09/24 History INSULIN LISPRO (HumaLOG) [HumaLOG] See Protocol SQ ACHS 08/09/24 08/09/24 History Insulin Glargine (Lantus) [Lantus 35 unit SQ HS@209908/09/24 08/09/24 History Vial] Ipratropium-Albuterol Nebulize 3 ml INHALATION RT-Q6H 08/09/24 08/09/24 History [Duoneb 0.5 mg-3 mg/3 ml Soln] Metoprolol Tartrate [Lopressor] 25 mg PO BID@0900,209908/09/24 08/09/24 History Spironolactone [Aldactone] 25 mg PO DAILY@0900 08/09/24 08/09/24 History Allergies Allergy/AdvReac Type Severity Reaction Status Date / Time Penicillins Allergy Rash/Hives Verified 07/04/24 14:26 Physical Exam Vitals: Vital Signs Temp Pulse Pulse Resp BP Pulse Ox 08/11/24 04:00 59 L 16 99/61 98 08/11/24 02:00 77 18 08/11/24 00:00 69 16 108/58 98 08/10/24 20:44 85 08/10/24 20:35 82 08/10/24 19:48 77 18 08/10/24 19:45 97.7 F 77 16 112/58 98 08/10/24 16:41 80 08/10/24 16:32 97 08/10/24 16:29 76 08/10/24 16:00 98.0 F 79 16 95/61 98 08/10/24 14:00 77 16 08/10/24 12:00 77 16 107/70 97 08/10/24 09:10 87 16 08/10/24 09:07 98.0 F 87 16 102/42 98 Intake and Output 08/10/24 08/10/24 08/11/24 14:59 22:59 06:59 Intake Total 400 435 Output Total 1300 675 Balance 400 -865 -675 Intake: Oral 400 435 Output: Urine 1300 675 Other: Voiding Method Indwelling Catheter Indwelling Catheter Indwelling Catheter # Bowel Movements 0 Weight 94 kg GENERAL DESCRIPTION: Elderly female lying in bed, no distress. No tachypnea or accessory muscle of respiration use. HEENT: Shows Pallor , no scleral icterus. Oral mucous membrane is dry. No pharyngeal erythema or thrush NECK: Trachea central, no thyromegaly. LUNGS: Unlabored breathing. Decreased breath sound at the base HEART: S1, S2, regular rate and rhythm. No loud murmur ABDOMEN: Soft, no tenderness , guarding or rigidity, no organomegaly EXTREMITIES: Bilateral lower extremity currently wrapped in the Blue wrap no drainage on the dressing SKIN: Patient did have a stage II pressure ulcer to bilateral gluteal area NEUROLOGICAL: The patient is lethargic but arousable orientation could not be determined Results CBC & Chem 7: 08/11/24 06:18 08/11/24 06:18 Labs: Abnormal Lab Results - Last 24 Hours (Table) 08/10/24 08/10/24 08/10/24 Range/Units 05:35 05:35 11:10 RBC (4.10-5.20) 10*6/uL Hgb (12.0-15.0) g/dL Hct (37.2-46.3) % Plt Count (140-440) 10*3/uL Sodium 136 L (137-145) mmol/L Potassium 5.2 H (3.5-5.1) mmol/L BUN 152 H* (7-17) mg/dL Creatinine 3.79 H (0.52-1.04) mg/dL POC Glucose (mg/dL) 152 H (70-110) mg/dL Transferrin 171.0 L (204.0-354.0) mg/dL Total Protein 5.7 L (6.3-8.2) g/dL Albumin 3.2 L (3.5-5.0) g/dL 08/10/24 08/10/24 08/10/24 Range/Units 15:06 16:09 19:57 RBC 2.66 L (4.10-5.20) 10*6/uL Hgb 8.0 L (12.0-15.0) g/dL Hct 24.5 L (37.2-46.3) % Plt Count 121 L (140-440) 10*3/uL Sodium (137-145) mmol/L Potassium (3.5-5.1) mmol/L BUN (7-17) mg/dL Creatinine (0.52-1.04) mg/dL POC Glucose (mg/dL) 163 H 177 H (70-110) mg/dL Transferrin (204.0-354.0) mg/dL Total Protein (6.3-8.2) g/dL Albumin (3.5-5.0) g/dL Assessment and Plan (1) Stage II pressure ulcer of left buttock Current Visit: Yes Status: Acute Code(s): L89.322 - PRESSURE ULCER OF LEFT BUTTOCK, STAGE 2 SNOMED Code(s): 26374998494196 (2) Stage II pressure ulcer of right buttock Current Visit: Yes Status: Acute Code(s): L89.312 - PRESSURE ULCER OF RIGHT BUTTOCK, STAGE 2 SNOMED Code(s): 82597748502816 (3) Stage III pressure ulcer of right heel Current Visit: Yes Status: Acute Code(s): L89.613 - PRESSURE ULCER OF RIGHT HEEL, STAGE 3 SNOMED Code(s): 40520216622235 (4) Penicillin allergy Current Visit: No Status: Acute Code(s): Z88.0 - ALLERGY STATUS TO PENICILLIN SNOMED Code(s): 32080884 Plan: 1patient being sent to the hospital for evaluation of elevated BUN and creatinine done in the outpatient setting in this patient who did have a right heel stage III pressure ulcer and concern for possible secondary cellulitis 2patient does have bilateral gluteal pressure ulcer but no cellulitis 3did have a positive UA however very hard to get any history from this patient white count is not elevated 4we will continue local wound care to the right heel pressure ulcer along with Rocephin while waiting for the workup to be completed We will follow on clinical condition and cultures to further adjust medication if needed Thank you for this consultation we will follow the patient along with you Dictation was produced using [employer] dictation software. please excuse any grammatical, word or spelling errors.
[2024-08-12 06:05] LABS: Glucose,Whole Blood 112 mg/dL (70-110)
[2024-08-12 07:57] LABS: Basophils # (A) 0.03 10*3/uL (0.00-0.10); Basophils % (A) 0.5 %; Eosinophils # (A) 0.18 10*3/uL (0.04-0.35); Eosinophils % (A) 2.8 %; HCT 24.1 % (37.2-46.3); HGB 7.5 g/dL (12.0-15.0); Lymphocytes # (A) 1.18 10*3/uL (0.90-5.00); Lymphocytes % (A) 18.6 %; MCHC 31.1 g/dL (32.0-37.0); MCV 96.4 fL (80.0-97.0); Mean Platelet Volume 11.3 fL (9.5-12.2); Monocytes # (A) 0.37 10*3/uL (0.20-1.00); Monocytes % (A) 5.8 %; Neutrophils # (A) 4.54 10*3/uL (1.80-7.70); Neutrophils % (A) 71.5 %; Platelet Count 134 10*3/uL (140-440); RDW 15.4 % (11.5-14.5); WBC 6.35 10*3/uL (4.50-10.00)
[2024-08-12 08:19] LABS: African American GFR (CKD) 35 (>60 ml/min/1.73 sqM); Anion Gap 11 mmol/L; Blood Urea Nitrogen 85 mg/dL (7-17); Calcium 8.7 mg/dL (8.4-10.2); Carbon Dioxide 21 mmol/L (22-30); Chloride 107 mmol/L (98-107); Glucose 93 mg/dL (74-99); Non-African American GFR(CKD) 30 (>60 ml/min/1.73 sqM); Potassium 4.8 mmol/L (3.5-5.1); Sodium 139 mmol/L (137-145)
[2024-08-12 11:39] LABS: Glucose,Whole Blood 137 mg/dL (70-110)
--- NOTE | 2024-08-12 12:28 | P.PN ---
Subjective Progress Note Date: 08/12/24 Patient seen in follow up for STEWART. Tolerating PO intake. Remain on IVF. Creatinine improving. No new complaints. Patient is awake, comfortable, no acute distress Examination of the heart S1 and S2 Examination of the lungs shows bilateral breath sounds are heard no crackles or wheezing Abdomen is soft nontender Examination of lower extremities shows both legs are wrapped chronic skin changes noted with chronic edema. 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 Objective - Vital Signs Vital signs: Vital Signs Temp 98.2 F 08/12/24 08:42 Pulse 81 08/12/24 08:43 Resp 17 08/12/24 08:43 BP 108/69 08/12/24 08:42 Pulse Ox 97 08/12/24 08:42 FiO2 Intake & Output 08/11/24 08/12/24 08/12/24 18:59 06:59 18:59 Intake Total 10 20 250 Output Total 1200 1150 750 Balance -1190 -1130 -500 Weight 94 kg 93 kg Intake: IV 10 20 10 Invasive Line 1 10 20 10 Oral 240 Output: Urine 1200 1150 750 Other: Voiding Method Indwelling Catheter Indwelling Catheter Indwelling Catheter - Labs CBC & Chem 7: 08/12/24 06:22 08/12/24 06:22 Labs: Abnormal Lab Results - Last 24 Hours (Table) 08/11/24 08/12/24 08/12/24 Range/Units 11:55 06:03 06:22 RBC 2.50 L (4.10-5.20) 10*6/uL Hgb 7.5 L (12.0-15.0) g/dL Hct 24.1 L (37.2-46.3) % MCHC 31.1 L (32.0-37.0) g/dL Plt Count 134 L (140-440) 10*3/uL Immature Gran # 0.05 H (0.00-0.04) 10*3/uL Carbon Dioxide (22-30) mmol/L BUN (7-17) mg/dL Creatinine (0.52-1.04) mg/dL POC Glucose (mg/dL) 131 H 112 H (70-110) mg/dL 08/12/24 Range/Units 06:22 RBC (4.10-5.20) 10*6/uL Hgb (12.0-15.0) g/dL Hct (37.2-46.3) % MCHC (32.0-37.0) g/dL Plt Count (140-440) 10*3/uL Immature Gran # (0.00-0.04) 10*3/uL Carbon Dioxide 21 L (22-30) mmol/L BUN 85 H (7-17) mg/dL Creatinine 1.68 H (0.52-1.04) mg/dL POC Glucose (mg/dL) (70-110) mg/dL Microbiology - Last 24 Hours (Table) 08/10/24 17:24 Gram Stain - Preliminary Tissue - Other Wound Culture - Preliminary 08/09/24 15:37 Blood Culture - Preliminary Blood Assessment and Plan Assessment: 1. Acute kidney injury, ATN, nonoliguric along with component of urine retention, currently with indwelling Rock catheter. On gentle IV hydration. UA suggestive of UTI. CT abdomen on 07/15/2024 did not show any evidence of obstruction. Presented with creatinine 4.1, stable on 1.7 today. 2. Hyperkalemia associated with acute kidney injury, improved. JERRY inhibitors and Aldactone on hold. 3. Recent hospitalization for CHF and bacteremia with blood cultures growing Enterococcus, source was likely cellulitis and lower extremity wounds. Patient was discharged on Zyvox 4. Anemia rule out iron deficiency 5. Acute kidney injury during last admission 2 weeks ago with serum creatinine at 2.4 on 08/01/2024 Plan: Gentle IV hydration Repeat labs in a.m. Avoid nephrotoxic agents Continue with antibiotics Continue to hold Bumex, spironolactone, ACEi
--- NOTE | 2024-08-12 15:02 | P.PN ---
Progress Note - Text Progress Note Date: 08/12/24 74-year-old female with continued postmenopausal bleeding. Bleeding had slowed, yesterday but has picked up again today. Did discuss with primary service need for hysteroscopy D&C, consent was obtained from family. Patient will be added on tomorrow for hysteroscopy dilation curettage, n.p.o. status
--- NOTE | 2024-08-12 15:02 | P.PN ---
Subjective Progress Note Date: 08/12/24 History of present illness; Patient is a 74-year-old female with COPD on 3-6 L of oxygen at baseline, diabe ruthy, GERD, HLD, hypothyroidism who [facility] from [facility] for abnormal labs. Patient is poor historian and unsure why she is in hospital. She had recent hospitalization for CHF and bacteremia cultures growing Enterococcus and subsequently discharged on antibiotics to [facility]. Per EMS, patient with abnormal BUN/creatinine. She is denying fever, chills, chest pain, shortness of breath, or dysuria. 08/11/2024. Patient seen and examined at bedside. She remains on ceftriaxone. She is alert and oriented to self only. Gentle IV fluids in setting of CHF. Today's labs hemoglobin 7.4, platelets 121, transferrin 171, sodium 136, potassium 4.8, BUN 116, creatinine 2.4. Transvaginal ultrasound with thickened endometrial stripe up to 8 mm, possible mass, fibroid, blood clot measuring up to 3.8 cm. 2 view right foot x-ray with no convincing evidence of osteomyelitis. 08/12/2024 Patient evaluated today resting in bed. She has had continued vaginal bleeding noted with fresh blood noted on pad. Discussed with Dr Guevara and patient will go for possible D&C tomorrow. Discussed with patients significant other Curt who gave verbal phone consent for the D&C, however did [facility] consent as well. Last dose of eliquis received on 08/10/2024 at 856. Urine culture has been ordered and currently pending. Blood culture is negative so far. Patient remains on course of IV ceftriaxone. Hemoglobin today; 7.5. Renal function improving with BUN 85, creatinine 1.68. Review of Systems Constitutional: Denied any fatigue denied any fever. Cardio vascular: denied any chest pain, palpitations Gastrointestinal: denied any nausea, vomiting, diarrhea Pulmonary: Denied any shortness of breath cough Neurologic denied any new focal deficits All inpatient medications were reviewed and appropriate changes in these medications as dictated in the interval history and assessment and plan. PHYSICAL EXAMINATION: GENERAL: The patient is alert and oriented x3, not in any acute distress. Well developed, well nourished. HEENT: Pupils are round and equally reacting to light. EOMI. No scleral icterus. No conjunctival pallor. Normocephalic, atraumatic. No pharyngeal erythema. No thyromegaly. CARDIOVASCULAR: S1 and S2 present. No murmurs, rubs, or gallops. PULMONARY: Chest is clear to auscultation, no wheezing or crackles. ABDOMEN: Soft, nontender, nondistended, normoactive bowel sounds. No palpable organomegaly. Red menstrual bleeding continues. MUSCULOSKELETAL: No joint swelling or deformity. EXTREMITIES: No cyanosis, clubbing, or pedal edema. NEUROLOGICAL: Gross neurological examination did not reveal any focal deficits. SKIN: No rashes. Assessment and Plan -Postmenopausal menstrual bleeding with findings of 8mm mass vs. fibroid/blood clot noted on transvaginal ultrasound -Acute urinary tract infection POA with pending urine culture -Right heel decubitus ulcer stage II -Stage II bilateral buttocks pressure injury -Chronic venous insufficiency and venous status dermatitis -Metabolic encephalopathy from infection -Acute kidney injury; rule out interstitial nephritis from recent Abx use; improving -Chronic CHF diastolic dysfunction with severe pulmonary hypertension -Anemia acute blood loss -Hyperkalemia from the STEWART; improved -Right lung lesion pending outpt PET scan -Diabetes Mellitus type 2 with hyperglycemia -COPD and chronic hypoxemic respiratory failure GI prophylaxis DVT prophylaxis Eliquis on hold due to the vaginal bleeding NO CODE Plan Continue to monitor hemoglobin and amt of vaginal bleeding OBGYN notified of continued bleeding and patient will got for D&C tomorrow at some point Did give medical clearance for the D&C as her renal function and electrolytes are significant improved. Continue normal saline at 70 mls/hr Renal function improving and nephrology following Urine culture not done; sent today continue on IV ceftriaxone at this time Continue accuchecks ACHS and sliding scale insulin; continue lantus HS -Continue local wound care per orders MWF Monitor electrolytes and renal function PT/OT consultation and patient will be returning to [facility] on discharge Discussed D&C and overall plan of care and clinical updates with patients s.o other Curt via telephone. Total time taken in coordination of care today greater than 35 minutes. The impression and plan of care has been dictated by Mignon Freeman Nurse Practitioner as directed. Dr. Suzi MD I have performed a history and physical examination and medical decision making of this patient, discussed the same with the dictator, and agree with the dictators assessment and plan as written, documented as a scribe. Based on total visit time, I have performed more than 50% of this visit. Objective - Vital Signs Vital signs: Vital Signs Temp 98.3 F 08/12/24 11:12 Pulse 73 08/12/24 11:12 Resp 17 08/12/24 11:12 BP 117/71 08/12/24 11:12 Pulse Ox 98 08/12/24 11:12 FiO2 Intake & Output 08/11/24 08/12/24 08/12/24 18:59 06:59 18:59 Intake Total 10 20 250 Output Total 1200 1150 750 Balance -6840 -2650 -500 Weight 94 kg 93 kg Intake: IV 10 20 10 Invasive Line 1 10 20 10 Oral 240 Output: Urine 1200 1150 750 Other: Voiding Method Indwelling Catheter Indwelling Catheter Indwelling Catheter - Labs CBC & Chem 7: 08/12/24 06:22 08/12/24 06:22 Labs: Abnormal Lab Results - Last 24 Hours (Table) 08/12/24 08/12/24 08/12/24 Range/Units 06:03 06:22 06:22 RBC 2.50 L (4.10-5.20) 10*6/uL Hgb 7.5 L (12.0-15.0) g/dL Hct 24.1 L (37.2-46.3) % MCHC 31.1 L (32.0-37.0) g/dL Plt Count 134 L (140-440) 10*3/uL Immature Gran # 0.05 H (0.00-0.04) 10*3/uL Carbon Dioxide 21 L (22-30) mmol/L BUN 85 H (7-17) mg/dL Creatinine 1.68 H (0.52-1.04) mg/dL POC Glucose (mg/dL) 112 H (70-110) mg/dL 08/12/24 Range/Units 11:37 RBC (4.10-5.20) 10*6/uL Hgb (12.0-15.0) g/dL Hct (37.2-46.3) % MCHC (32.0-37.0) g/dL Plt Count (140-440) 10*3/uL Immature Gran # (0.00-0.04) 10*3/uL Carbon Dioxide (22-30) mmol/L BUN (7-17) mg/dL Creatinine (0.52-1.04) mg/dL POC Glucose (mg/dL) 137 H (70-110) mg/dL Microbiology - Last 24 Hours (Table) 08/09/24 15:37 Blood Culture - Preliminary Blood 08/10/24 17:24 Gram Stain - Preliminary Tissue - Other Wound Culture - Preliminary Assessment and Plan Time with Patient: Greater than 30
[2024-08-12 16:29] LABS: Glucose,Whole Blood 161 mg/dL (70-110)
[2024-08-12 19:48] LABS: Glucose,Whole Blood 122 mg/dL (70-110)
[2024-08-13 06:00] LABS: Glucose,Whole Blood 135 mg/dL (70-110)
[2024-08-13 06:57] LABS: Basophils # (A) 0.03 10*3/uL (0.00-0.10); Basophils % (A) 0.5 %; Eosinophils # (A) 0.29 10*3/uL (0.04-0.35); Eosinophils % (A) 4.7 %; HCT 25.1 % (37.2-46.3); HGB 7.8 g/dL (12.0-15.0); Lymphocytes # (A) 1.27 10*3/uL (0.90-5.00); Lymphocytes % (A) 20.6 %; MCH 29.4 pg (27.0-32.0); MCHC 31.1 g/dL (32.0-37.0); MCV 94.7 fL (80.0-97.0); Mean Platelet Volume 11.3 fL (9.5-12.2); Monocytes # (A) 0.36 10*3/uL (0.20-1.00); Monocytes % (A) 5.8 %; Neutrophils % (A) 68.1 %; Platelet Count 154 10*3/uL (140-440); RBC 2.65 10*6/uL (4.10-5.20); RDW 15.2 % (11.5-14.5); WBC 6.17 10*3/uL (4.50-10.00)
[2024-08-13 07:08] LABS: African American GFR (CKD) 53 (>60 ml/min/1.73 sqM); Anion Gap 8 mmol/L; Blood Urea Nitrogen 60 mg/dL (7-17); Calcium 8.7 mg/dL (8.4-10.2); Carbon Dioxide 24 mmol/L (22-30); Chloride 108 mmol/L (98-107); Glucose 116 mg/dL (74-99); Magnesium 1.5 mg/dL (1.6-2.3); Non-African American GFR(CKD) 46 (>60 ml/min/1.73 sqM); Potassium 4.9 mmol/L (3.5-5.1); Sodium 140 mmol/L (137-145)
[2024-08-13] MEDS ORDERED: Magnesium Replacement Protocol 1 EACH MISC MISCELLANE PRN (09:22)
[2024-08-13] MEDS: MAGNESIUM SULFATE-D5W PMX 1 GM in DEXTROSE/WATER 1 100ML.BAG IVPB SCH (09:37)
[2024-08-13] MEDS: IV FLUID CONTINUATION 950 ML IV ONE (11:34)
[2024-08-13 11:58] LABS: Glucose,Whole Blood 168 mg/dL (70-110)
--- NOTE | 2024-08-13 12:09 | P.PN ---
Subjective Progress Note Date: 08/13/24 Patient seen in follow up for STEWART. Patient is NPO for hysteroscopy with dilation & curettage. Remain on IVF. Creatinine improving. No new complaints. Objective - Vital Signs Vital signs: Vital Signs Temp 98.6 F 08/12/24 19:57 Pulse 68 08/13/24 04:00 Resp 18 08/13/24 04:00 BP 110/68 08/13/24 04:00 Pulse Ox 97 08/13/24 04:00 FiO2 Intake & Output 08/12/24 08/13/24 08/13/24 18:59 06:59 18:59 Intake Total 500 20 Output Total 1850 1050 Balance -1350 -1030 Weight 93.5 kg Intake: IV 20 20 Invasive Line 1 20 20 Oral 480 Output: Urine 1850 1050 Other: Voiding Method Indwelling Catheter Indwelling Catheter - Exam Patient is awake, comfortable, no acute distress Examination of the heart S1 and S2 Examination of the lungs shows bilateral breath sounds are heard no crackles or wheezing Abdomen is soft nontender Examination of lower extremities shows both legs are wrapped chronic skin changes noted with chronic edema. FIELD CARE COORDINATOR exam shows patient is able to move all 4 extremities. - Labs CBC & Chem 7: 08/13/24 05:33 08/13/24 05:33 Labs: Abnormal Lab Results - Last 24 Hours (Table) 08/12/24 08/12/24 08/12/24 Range/Units 11:37 16:27 19:47 RBC (4.10-5.20) 10*6/uL Hgb (12.0-15.0) g/dL Hct (37.2-46.3) % MCHC (32.0-37.0) g/dL Chloride (98-107) mmol/L BUN (7-17) mg/dL Creatinine (0.52-1.04) mg/dL Glucose (74-99) mg/dL POC Glucose (mg/dL) 137 H 161 H 122 H (70-110) mg/dL Magnesium (1.6-2.3) mg/dL 08/13/24 08/13/24 08/13/24 Range/Units 05:33 05:33 05:59 RBC 2.65 L (4.10-5.20) 10*6/uL Hgb 7.8 L (12.0-15.0) g/dL Hct 25.1 L (37.2-46.3) % MCHC 31.1 L (32.0-37.0) g/dL Chloride 108 H (98-107) mmol/L BUN 60 H (7-17) mg/dL Creatinine 1.18 H (0.52-1.04) mg/dL Glucose 116 H (74-99) mg/dL POC Glucose (mg/dL) 135 H (70-110) mg/dL Magnesium 1.5 L (1.6-2.3) mg/dL Microbiology - Last 24 Hours (Table) 08/10/24 17:24 Anaerobic Culture - Preliminary Heel - Right 08/10/24 17:24 Gram Stain - Final Tissue - Other Wound Culture - Final 08/09/24 15:37 Blood Culture - Preliminary Blood Assessment and Plan Assessment: 1. Acute kidney injury, acute tubular necrosis, non-oliguric current indwelling logan in place 2. Hyperkalemia associated with STEWART, stable 3. Anemia, rule out REY 4. Recent hospitalization for CHF, bacteremia with cultures positive for Enteroccocus, STEWART on last admit Creatinine of 2.4 on 08/01/24 Plan: Continue IV fluids 0.9% at 70ml/hr Repeat labs in AM Avoid nephrotoxic agents Continue antibiotics per primary team/ID Will add Flomax, voiding trial I have seen and examined the patient with resident and agree with A&P as arron amaya.
[2024-08-13] MEDS ORDERED: SUGAMMADEX SODIUM 100 MG/ML SYR IV ONE (13:18)
[2024-08-13] MEDS ORDERED: fentaNYL (PF) 50 MCG/ML 2 ML AMP ONE (13:18)
[2024-08-13] MEDS ORDERED: LIDOCAINE 1% INJ 10MG/ML (20 ML MDV) ONE (13:18)
[2024-08-13] MEDS ORDERED: PROPOFOL 10 MG/ML 20 ML VIAL IV ONE (13:18)
[2024-08-13] MEDS ORDERED: ROCURONIUM 10 MG/ML (5 ML VIAL) IV ONE (13:18)
[2024-08-13] MEDS ORDERED: NEOSTIGMINE 1 MG/ML 10 ML VIAL ONE (13:18)
[2024-08-13] MEDS ORDERED: GLYCOPYRROLATE 0.2 MG/ML 2 ML VIAL ONE (13:18)
[2024-08-13 14:11] LABS: Glucose,Whole Blood 155 mg/dL (70-110)
--- NOTE | 2024-08-13 14:13 | P.OP ---
Date of Procedure: 08/13/24 Preoperative Diagnosis: Postmenopausal bleeding Postoperative Diagnosis: Same Procedure(s) Performed: Dilation and curettage Anesthesia: CHRISTIANEA Surgeon: Shadia Guevara Estimated Blood Loss (ml): 10 IV fluids (ml): 300 Pathology: other (Endometrial curettings) Condition: stable Disposition: PACU Indications for Procedure: Postmenopausal bleeding. This 74-year-old female noted bleeding that was increasing in nature 3 to 4 days prior to admission. Patient has continued bleeding despite discontinuation of Eliquis. Patient has multiple medical issues including multiple decubitus, unable to perform endometrial biopsy in the hospital bed secondary to discomfort and difficulty due to body habitus. Operative Findings: Multiple clots appreciated upon curettage of the uterus. Scant tissue obtained, cervix appeared normal without lesion. Uterus appeared normal in size, 8 to 9 weeks in size Description of Procedure: Patient was taken back to the operating suite where general anesthesia was obtained without difficulty by the anesthesia department. She was prepped and draped in normal sterile fashion the dorsolithotomy position. Patient has an indwelling Rock catheter. Weighted speculum is placed in the posterior vaginal vault the antilipid the cervix is visualized and grasped with a single-tooth tenaculum. Large clots were noted in the vaginal vault. These were cleared and sent to pathology in addition a sharp curettage was performed with scant tissue obtained. Bright red bleeding was appreciated after dilation curettage but appeared to slow. All instruments were removed from the patient's vaginal vault. Hemostasis was noted from the single-tooth tenaculum site. Small skin separation was noted on the lower posterior vagina silver nitrate was applied and hemostasis was appreciated. All counts were to be correct x 2.
[2024-08-13] MEDS: IV FLUID CONTINUATION 1,000 ML IV ONE (14:47)
[2024-08-13 15:17] LABS: Glucose,Whole Blood 148 mg/dL (70-110)
[2024-08-13] MEDS: TAMSULOSIN 0.4 MG CAP.ER.24H PO SCH (16:27)
[2024-08-13 16:31] LABS: Glucose,Whole Blood 144 mg/dL (70-110)
--- NOTE | 2024-08-13 20:11 | P.PN ---
Subjective Progress Note Date: 08/13/24 History of present illness; Patient is a 74-year-old female with COPD on 3-6 L of oxygen at baseline, diabe ruthy, GERD, HLD, hypothyroidism who presents from long-term for abnormal labs. Patient is poor historian and unsure why she is in hospital. She had recent hospitalization for CHF and bacteremia cultures growing Enterococcus and subsequently discharged on antibiotics to [facility]. Per EMS, patient with abnormal BUN/creatinine. She is denying fever, chills, chest pain, shortness of breath, or dysuria. 08/11/2024. Patient seen and examined at bedside. She remains on ceftriaxone. She is alert and oriented to self only. Gentle IV fluids in setting of CHF. Today's labs hemoglobin 7.4, platelets 121, transferrin 171, sodium 136, potassium 4.8, BUN 116, creatinine 2.4. Transvaginal ultrasound with thickened endometrial stripe up to 8 mm, possible mass, fibroid, blood clot measuring up to 3.8 cm. 2 view right foot x-ray with no convincing evidence of osteomyelitis. 08/12/2024 Patient evaluated today resting in bed. She has had continued vaginal bleeding noted with fresh blood noted on pad. Discussed with Dr Guevara and patient will go for possible D&C tomorrow. Discussed with patients significant other Crut who gave verbal phone consent for the D&C, however [email or web address] as [facility]. Last dose of eliquis received on 08/10/2024 at 856. Urine culture has been ordered and currently pending. Blood culture is negative so far. Patient remains on course of IV ceftriaxone. Hemoglobin today; 7.5. Renal function improving with BUN 85, creatinine 1.68. 08/13/2024 Patient is evaluated in follow up. Going for dilation and curettage today for continued vaginal bleeding. Hemoglobin 7.8 today and patient remains off eliquis. Renal function continues to improve with BUN 60, creatinine 1.18. Magnesium 1.5. Patient is afebrile, heart rate 66 normal sinus rhythm, blood pressure 119/67, 96% on 2L. Review of Systems Constitutional: Denied any fatigue denied any fever. Cardio vascular: denied any chest pain, palpitations Gastrointestinal: denied any nausea, vomiting, diarrhea Pulmonary: Denied any shortness of breath cough Neurologic denied any new focal deficits All inpatient medications were reviewed and appropriate changes in these medications as dictated in the interval history and assessment and plan. PHYSICAL EXAMINATION: GENERAL: The patient is alert and oriented x3, not in any acute distress. Well developed, well nourished. HEENT: Pupils are round and equally reacting to light. EOMI. No scleral icterus. No conjunctival pallor. Normocephalic, atraumatic. No pharyngeal erythema. No thyromegaly. CARDIOVASCULAR: S1 and S2 present. No murmurs, rubs, or gallops. PULMONARY: Chest is clear to auscultation, no wheezing or crackles. ABDOMEN: Soft, nontender, nondistended, normoactive bowel sounds. No palpable organomegaly. Red menstrual bleeding continues. MUSCULOSKELETAL: No joint swelling or deformity. EXTREMITIES: No cyanosis, clubbing, or pedal edema. NEUROLOGICAL: Gross neurological examination did not reveal any focal deficits. SKIN: No rashes. Assessment and Plan -Postmenopausal menstrual bleeding with findings of 8mm mass vs. fibroid/blood clot noted on transvaginal ultrasound -Acute urinary tract infection POA with urine culture final and negative although patient had already been started on IV antibiotics. -Right heel decubitus ulcer stage II -Stage II bilateral buttocks pressure injury -Chronic venous insufficiency and venous status dermatitis -Metabolic encephalopathy from infection -Acute kidney injury; rule out interstitial nephritis from recent Abx use; improving -Chronic CHF diastolic dysfunction with severe pulmonary hypertension -Anemia acute blood loss -Hyperkalemia from the STEWART; improved -Right lung lesion pending outpt PET scan -Diabetes Mellitus type 2 with hyperglycemia -COPD and chronic hypoxemic respiratory failure GI prophylaxis DVT prophylaxis Eliquis on hold due to the vaginal bleeding NO CODE Plan Continue to monitor hemoglobin and amt of vaginal bleeding Pending final reports from D & C scheduled for today Did give medical clearance for the D&C as her renal function and electrolytes are significantly improved. Continue normal saline at 70 mls/hr Renal function improving and nephrology following Urine culture final and negative will DC antibiotics Continue accuchecks ACHS and sliding scale insulin; continue lantus HS -Continue local wound care per orders MWF Monitor electrolytes and renal function PT/OT consultation and patient will be returning to [facility] on discharge Possible return to [facility] in the next 24 hours The impression and plan of care has been dictated by Mignon Freeman, Nurse Practitioner as directed. Dr. Suzi MD I have performed a history and physical examination and medical decision making of this patient, discussed the same with the dictator, and agree with the dictators assessment and plan as written, documented as a scribe. Based on total visit time, I have performed more than 50% of this visit. Objective - Vital Signs Vital signs: Vital Signs Temp 98.6 F 08/12/24 19:57 Pulse 68 08/13/24 04:00 Resp 18 08/13/24 04:00 BP 110/68 08/13/24 04:00 Pulse Ox 97 08/13/24 04:00 FiO2 Intake & Output 08/12/24 08/13/24 08/13/24 18:59 06:59 18:59 Intake Total 500 20 Output Total 1850 1050 Balance -1350 -1030 Weight 93.5 kg Intake: IV 20 20 Invasive Line 1 20 20 Oral 480 Output: Urine 1850 1050 Other: Voiding Method Indwelling Catheter Indwelling Catheter - Labs CBC & Chem 7: 08/13/24 05:33 08/13/24 05:33 Labs: Abnormal Lab Results - Last 24 Hours (Table) 08/12/24 08/12/24 08/12/24 Range/Units 11:37 16:27 19:47 RBC (4.10-5.20) 10*6/uL Hgb (12.0-15.0) g/dL Hct (37.2-46.3) % MCHC (32.0-37.0) g/dL Chloride (98-107) mmol/L BUN (7-17) mg/dL Creatinine (0.52-1.04) mg/dL Glucose (74-99) mg/dL POC Glucose (mg/dL) 137 H 161 H 122 H (70-110) mg/dL Magnesium (1.6-2.3) mg/dL 08/13/24 08/13/24 08/13/24 Range/Units 05:33 05:33 05:59 RBC 2.65 L (4.10-5.20) 10*6/uL Hgb 7.8 L (12.0-15.0) g/dL Hct 25.1 L (37.2-46.3) % MCHC 31.1 L (32.0-37.0) g/dL Chloride 108 H (98-107) mmol/L BUN 60 H (7-17) mg/dL Creatinine 1.18 H (0.52-1.04) mg/dL Glucose 116 H (74-99) mg/dL POC Glucose (mg/dL) 135 H (70-110) mg/dL Magnesium 1.5 L (1.6-2.3) mg/dL Microbiology - Last 24 Hours (Table) 08/10/24 17:24 Anaerobic Culture - Preliminary Heel - Right 08/10/24 17:24 Gram Stain - Final Tissue - Other Wound Culture - Final 08/09/24 15:37 Blood Culture - Preliminary Blood Assessment and Plan Time with Patient: Less than 30
[2024-08-13 20:31] LABS: Glucose,Whole Blood 139 mg/dL (70-110)
[2024-08-14 06:02] LABS: Glucose,Whole Blood 141 mg/dL (70-110)
[2024-08-14 06:26] LABS: Basophils # (A) 0.03 10*3/uL (0.00-0.10); Basophils % (A) 0.4 %; Eosinophils # (A) 0.27 10*3/uL (0.04-0.35); HCT 23.9 % (37.2-46.3); HGB 7.2 g/dL (12.0-15.0); Lymphocytes # (A) 1.12 10*3/uL (0.90-5.00); Lymphocytes % (A) 16.8 %; MCH 29.3 pg (27.0-32.0); MCHC 30.1 g/dL (32.0-37.0); MCV 97.2 fL (80.0-97.0); Mean Platelet Volume 10.9 fL (9.5-12.2); Monocytes # (A) 0.31 10*3/uL (0.20-1.00); Monocytes % (A) 4.6 %; Neutrophils % (A) 73.6 %; Platelet Count 145 10*3/uL (140-440); RBC 2.46 10*6/uL (4.10-5.20); RDW 15.2 % (11.5-14.5); WBC 6.67 10*3/uL (4.50-10.00)
[2024-08-14 06:45] LABS: African American GFR (CKD) 64 (>60 ml/min/1.73 sqM); Anion Gap 6 mmol/L; Blood Urea Nitrogen 39 mg/dL (7-17); Calcium 8.6 mg/dL (8.4-10.2); Carbon Dioxide 25 mmol/L (22-30); Chloride 110 mmol/L (98-107); Glucose 113 mg/dL (74-99); Magnesium 1.5 mg/dL (1.6-2.3); Non-African American GFR(CKD) 56 (>60 ml/min/1.73 sqM); Potassium 4.9 mmol/L (3.5-5.1); Sodium 141 mmol/L (137-145)
[2024-08-14 11:50] LABS: Glucose,Whole Blood 155 mg/dL (70-110)
[2024-08-14] MEDS: MAGNESIUM SULFATE-D5W PMX 1 GM in DEXTROSE/WATER 1 100ML.BAG IVPB SCH (12:06)
--- NOTE | 2024-08-14 13:14 | P.PN ---
Subjective Progress Note Date: 08/12/24 Principal diagnosis: Reason for follow-up is bilateral lower extremity ulcer right foot ulcer and cellulitis Patient is a 74-year-old female with a past medical history significant for COPD diabetes mellitus reflux hyperlipidemia heart failure patient has been brought into the hospital for evaluation of abnormal labs done in the outpatient setting patient did have a positive with concern for possible catheter since UTI and also right foot plantar ulcer and concern for secondary cellulitis. On today's evaluation that is 08/12/2024, Patient is afebrile this morning patient denies having any chest pain shortness of breath or cough, the patient is currently on 2 L current oxygen patient denies any abdominal pain no diarrhea no nausea no vomiting, denies pain to the lower extremity Patient did have a white count of 6.35 creatinine is 1.68 Objective - Vital Signs Vital signs: Vital Signs Temp 98.6 F 08/12/24 15:37 Pulse 77 08/12/24 15:56 Resp 18 08/12/24 15:56 BP 143/75 08/12/24 15:37 Pulse Ox 96 08/12/24 15:37 FiO2 Intake & Output 08/11/24 08/12/24 08/12/24 18:59 06:59 18:59 Intake Total 10 20 500 Output Total 1200 1150 750 Balance -1190 -1130 -250 Weight 94 kg 93 kg Intake: IV 10 20 20 Invasive Line 1 10 20 20 Oral 480 Output: Urine 1200 1150 750 Other: Voiding Method Indwelling Catheter Indwelling Catheter Indwelling Catheter - Exam GENERAL DESCRIPTION: An elderly female lying in bed in no distress RESPIRATORY SYSTEM: Unlabored breathing , decreased breath sounds at bases HEART: S1 S2 regular rate and rhythm , ABDOMEN: Soft , no tenderness EXTREMITIES: Lower extremity currently wrapped no drainage on the dressing - Labs CBC & Chem 7: 08/14/24 05:30 08/14/24 05:30 Labs: Abnormal Lab Results - Last 24 Hours (Table) 08/12/24 08/12/24 08/12/24 Range/Units 06:03 06:22 06:22 RBC 2.50 L (4.10-5.20) 10*6/uL Hgb 7.5 L (12.0-15.0) g/dL Hct 24.1 L (37.2-46.3) % MCHC 31.1 L (32.0-37.0) g/dL Plt Count 134 L (140-440) 10*3/uL Immature Gran # 0.05 H (0.00-0.04) 10*3/uL Carbon Dioxide 21 L (22-30) mmol/L BUN 85 H (7-17) mg/dL Creatinine 1.68 H (0.52-1.04) mg/dL POC Glucose (mg/dL) 112 H (70-110) mg/dL 08/12/24 08/12/24 Range/Units 11:37 16:27 RBC (4.10-5.20) 10*6/uL Hgb (12.0-15.0) g/dL Hct (37.2-46.3) % MCHC (32.0-37.0) g/dL Plt Count (140-440) 10*3/uL Immature Gran # (0.00-0.04) 10*3/uL Carbon Dioxide (22-30) mmol/L BUN (7-17) mg/dL Creatinine (0.52-1.04) mg/dL POC Glucose (mg/dL) 137 H 161 H (70-110) mg/dL Microbiology - Last 24 Hours (Table) 08/09/24 15:37 Blood Culture - Preliminary Blood 08/10/24 17:24 Gram Stain - Preliminary Tissue - Other Wound Culture - Preliminary Assessment and Plan (1) Stage II pressure ulcer of left buttock Current Visit: Yes Status: Acute Code(s): L89.322 - PRESSURE ULCER OF LEFT BUTTOCK, STAGE 2 SNOMED Code(s): 59006165267976 (2) Stage II pressure ulcer of right buttock Current Visit: Yes Status: Acute Code(s): L89.312 - PRESSURE ULCER OF RIGHT BUTTOCK, STAGE 2 SNOMED Code(s): 27901633476713 (3) Stage III pressure ulcer of right heel Current Visit: Yes Status: Acute Code(s): L89.613 - PRESSURE ULCER OF RIGHT HEEL, STAGE 3 SNOMED Code(s): 35896984579674 (4) Penicillin allergy Current Visit: No Status: Acute Code(s): Z88.0 - ALLERGY STATUS TO PENICILLIN SNOMED Code(s): 06795440 (5) Venous ulcer-leg syndrome, bilateral Current Visit: Yes Status: Acute Code(s): I83.019 - VARICOSE VEINS OF RIGHT LOWER EXTREMITY W ULCER OF UNSP SITE; I83.029 - VARICOSE VEINS OF LEFT LOWER EXTREMITY W ULCER OF UNSP SITE; L97.929 - NON-PRS CHRONIC ULC UNSP PRT OF L LOW LEG W UNSP SEVERITY; L97.919 - NON-PRS CHRONIC ULC UNSP PRT OF R LOW LEG W UNSP SEVERITY SNOMED Code(s): 8453981281 Plan: 1patient being sent to the hospital for evaluation of elevated BUN and creatinine done in the outpatient setting in this patient who did have a right heel stage III pressure ulcer and concern for possible secondary cellulitis 2patient does have bilateral gluteal pressure ulcer but no cellulitis 3 local wound care to the right heel pressure ulcer along with Rocephin while waiting for the culture to finalize Dictation was produced using [employer] dictation software. please excuse any grammatical, word or spelling errors. Time with Patient: Less than 30
--- NOTE | 2024-08-14 13:15 | P.PN ---
Subjective Progress Note Date: 08/13/24 Principal diagnosis: Reason for follow-up is bilateral lower extremity ulcer right foot ulcer and cellulitis Patient is a 74-year-old female with a past medical history significant for COPD diabetes mellitus reflux hyperlipidemia heart failure patient has been brought into the hospital for evaluation of abnormal labs done in the outpatient setting patient did have a positive with concern for possible catheter since UTI and also right foot plantar ulcer and concern for secondary cellulitis. On today's evaluation that is 08/13/2024,the patient denies any fever or any chills, patient is breathing comfortably on 2 L nasal cannula oxygen, the patient denies chest pain shortness of breath and no significant cough, patient denies abdominal pain, no nausea vomiting or diarrhea. Denies pain to the lower extremity still have some foul-smelling to the right foot. Patient did have a creatinine of 1.18 and a white count of 6.17, Objective - Vital Signs Vital signs: Vital Signs Temp 98.6 F 08/13/24 11:30 Pulse 75 08/13/24 11:30 Resp 16 08/13/24 11:30 BP 170/71 08/13/24 11:30 Pulse Ox 95 08/13/24 11:30 FiO2 Intake & Output 08/12/24 08/13/24 08/13/24 18:59 06:59 18:59 Intake Total 500 20 10 Output Total 1850 1050 800 Balance -1350 -1030 -790 Weight 93.5 kg Intake: IV 20 20 10 Invasive Line 1 20 20 10 Oral 480 Output: Urine 1850 1050 800 Other: Voiding Method Indwelling Catheter Indwelling Catheter Indwelling Catheter - Exam GENERAL DESCRIPTION: An elderly female lying in bed in no distress RESPIRATORY SYSTEM: Unlabored breathing , decreased breath sounds at bases HEART: S1 S2 regular rate and rhythm , ABDOMEN: Soft , no tenderness EXTREMITIES: Bilateral lower extremity with superficial ulcers no slough tissue patient did have a foul-smelling ulcer on the right foot plantar aspect - Labs CBC & Chem 7: 08/14/24 05:30 08/14/24 05:30 Labs: Abnormal Lab Results - Last 24 Hours (Table) 08/12/24 08/12/24 08/13/24 Range/Units 16:27 19:47 05:33 RBC 2.65 L (4.10-5.20) 10*6/uL Hgb 7.8 L (12.0-15.0) g/dL Hct 25.1 L (37.2-46.3) % MCHC 31.1 L (32.0-37.0) g/dL Chloride (98-107) mmol/L BUN (7-17) mg/dL Creatinine (0.52-1.04) mg/dL Glucose (74-99) mg/dL POC Glucose (mg/dL) 161 H 122 H (70-110) mg/dL Magnesium (1.6-2.3) mg/dL 08/13/24 08/13/24 08/13/24 Range/Units 05:33 05:59 11:56 RBC (4.10-5.20) 10*6/uL Hgb (12.0-15.0) g/dL Hct (37.2-46.3) % MCHC (32.0-37.0) g/dL Chloride 108 H (98-107) mmol/L BUN 60 H (7-17) mg/dL Creatinine 1.18 H (0.52-1.04) mg/dL Glucose 116 H (74-99) mg/dL POC Glucose (mg/dL) 135 H 168 H (70-110) mg/dL Magnesium 1.5 L (1.6-2.3) mg/dL Microbiology - Last 24 Hours (Table) 08/09/24 15:37 Blood Culture - Preliminary Blood 08/12/24 09:49 Urine Culture - Final Urine,Catheterized 08/10/24 17:24 Anaerobic Culture - Preliminary Heel - Right 08/10/24 17:24 Gram Stain - Final Tissue - Other Wound Culture - Final Assessment and Plan (1) Stage II pressure ulcer of left buttock Current Visit: Yes Status: Acute Code(s): L89.322 - PRESSURE ULCER OF LEFT BUTTOCK, STAGE 2 SNOMED Code(s): 36287696043663 (2) Stage II pressure ulcer of right buttock Current Visit: Yes Status: Acute Code(s): L89.312 - PRESSURE ULCER OF RIGHT BUTTOCK, STAGE 2 SNOMED Code(s): 38423989015741 (3) Stage III pressure ulcer of right heel Current Visit: Yes Status: Acute Code(s): L89.613 - PRESSURE ULCER OF RIGHT HEEL, STAGE 3 SNOMED Code(s): 87132576645175 (4) Penicillin allergy Current Visit: No Status: Acute Code(s): Z88.0 - ALLERGY STATUS TO PENICILLIN SNOMED Code(s): 19624246 Plan: 1patient being sent to the hospital for evaluation of elevated BUN and creatinine done in the outpatient setting in this patient who did have a right heel stage III pressure ulcer and concern for possible secondary cellulitis 2patient does have bilateral gluteal pressure ulcer but no cellulitis 3 local wound care to the bilateral lower extremity ulcer with Aquacel silver dressing followed by Blue wrap change q. 48-hour 4patient did have a necrotic wound on the right foot plantar aspect we will consult podiatry for debridement and deep culture for now continue with Rocephin while waiting for the culture to finalize Dictation was produced using [employer] dictation software. please excuse any grammatical, word or spelling errors. Time with Patient: Less than 30
[2024-08-14] MEDS ORDERED: MAGNESIUM SULFATE-D5W PMX 1 GM in DEXTROSE/WATER 1 100ML.BAG IVPB SCH (13:30)
--- NOTE | 2024-08-14 13:30 | P.PN ---
Subjective Progress Note Date: 08/14/24 Patient seen in follow up for STEWART. Patient is POD#1 from hysteroscopy with dilation & curettage. Patient tolerating oral intake well. Creatinine improving. No new complaints. Objective - Vital Signs Vital signs: Vital Signs Temp 98.0 F 08/13/24 19:42 Pulse 68 08/14/24 08:33 Resp 16 08/14/24 04:00 BP 127/77 08/14/24 04:00 Pulse Ox 97 08/14/24 04:00 FiO2 Intake & Output 08/13/24 08/14/24 08/14/24 18:59 06:59 18:59 Intake Total 620 20 Output Total 1110 625 Balance -490 -605 Weight 93 kg Intake: IV 620 20 Invasive Line 1 20 20 Output: Urine 1100 625 Estimated Blood Loss 10 Other: Voiding Method Indwelling Catheter Indwelling Catheter # Voids 1 - Exam Patient is awake, comfortable, no acute distress Examination of the heart S1 and S2 Examination of the lungs shows bilateral breath sounds are heard no crackles or wheezing Abdomen is soft nontender Examination of lower extremities shows both legs are wrapped chronic skin changes noted with chronic edema. 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 Logan catheter in place - Labs CBC & Chem 7: 08/14/24 05:30 08/14/24 05:30 Labs: Abnormal Lab Results - Last 24 Hours (Table) 08/13/24 08/13/24 08/13/24 Range/Units 11:56 14:09 15:16 RBC (4.10-5.20) 10*6/uL Hgb (12.0-15.0) g/dL Hct (37.2-46.3) % MCV (80.0-97.0) fL MCHC (32.0-37.0) g/dL Chloride (98-107) mmol/L BUN (7-17) mg/dL Glucose (74-99) mg/dL POC Glucose (mg/dL) 168 H 155 H 148 H (70-110) mg/dL Magnesium (1.6-2.3) mg/dL 08/13/24 08/13/24 08/14/24 Range/Units 16:29 20:30 05:30 RBC (4.10-5.20) 10*6/uL Hgb (12.0-15.0) g/dL Hct (37.2-46.3) % MCV (80.0-97.0) fL MCHC (32.0-37.0) g/dL Chloride 110 H (98-107) mmol/L BUN 39 H (7-17) mg/dL Glucose 113 H (74-99) mg/dL POC Glucose (mg/dL) 144 H 139 H (70-110) mg/dL Magnesium 1.5 L (1.6-2.3) mg/dL 08/14/24 08/14/24 Range/Units 05:30 06:00 RBC 2.46 L (4.10-5.20) 10*6/uL Hgb 7.2 L (12.0-15.0) g/dL Hct 23.9 L (37.2-46.3) % MCV 97.2 H (80.0-97.0) fL MCHC 30.1 L (32.0-37.0) g/dL Chloride (98-107) mmol/L BUN (7-17) mg/dL Glucose (74-99) mg/dL POC Glucose (mg/dL) 141 H (70-110) mg/dL Magnesium (1.6-2.3) mg/dL Microbiology - Last 24 Hours (Table) 08/10/24 17:24 Anaerobic Culture - Preliminary Heel - Right Anaerobic Gm Negative Bacilli 08/09/24 15:37 Blood Culture - Preliminary Blood 08/12/24 09:49 Urine Culture - Final Urine,Catheterized Assessment and Plan Assessment: 1. Acute kidney injury, acute tubular necrosis, non-oliguric, resolved 2. Hyperkalemia associated with STEWART, stable 3. Hypomagnesemia, being repleted 3. Anemia, ruled out REY 4. Recent hospitalization for CHF, bacteremia with cultures positive for Enteroccocus, STEWART on last admit Creatinine of 2.4 on 08/01/24 5. Urinary retention, catheter in place, patient is currently 2 person assist post-op Plan: Repeat labs in AM Avoid nephrotoxic agents Continue antibiotics per primary team/ID Continue Flomax, voiding trial in AM HOLD Bumex, aldactone, Enalapril I have seen and examined the patient with resident and agree with A&P as written. Encouraged po intake. Heplock IVF. Ok to DC logan catheter from nephrology standpoint.
[2024-08-14] MEDS: metroNIDAZOLE 500 MG TAB PO SCH (15:37)
[2024-08-14] MEDS: MAGNESIUM OXIDE 400 MG TAB PO STA (15:37)
--- NOTE | 2024-08-14 16:20 | P.PN ---
Subjective Progress Note Date: 08/14/24 Principal diagnosis: Reason for follow-up is bilateral lower extremity ulcer right foot ulcer and cellulitis Patient is a 74-year-old female with a past medical history significant for COPD diabetes mellitus reflux hyperlipidemia heart failure patient has been brought into the hospital for evaluation of abnormal labs done in the outpatient setting patient did have a positive with concern for possible catheter since UTI and also right foot plantar ulcer and concern for secondary cellulitis. On today's evaluation that is 08/14/2024,the patient remains to be afebrile, patient is on 2 L nasal cannula supplemental oxygen and denies any shortness of breath no chest pain or cough.Patient denies having any nausea or vomiting, no abdominal pain and no diarrhea has been reported Patient white count 6.67, creatinine 1.01 right urine culture now growing anaerobic gram-negative bacilli Objective - Vital Signs Vital signs: Vital Signs Temp 98.3 F 08/14/24 08:35 Pulse 78 08/14/24 08:35 Resp 18 08/14/24 08:35 BP 111/74 08/14/24 08:35 Pulse Ox 96 08/14/24 08:35 FiO2 Intake & Output 08/13/24 08/14/24 08/14/24 18:59 06:59 18:59 Intake Total 620 20 110 Output Total 1110 625 900 Balance -332 -839 -725 Weight 93 kg Intake: IV 620 20 10 Invasive Line 1 20 20 10 Oral 100 Output: Urine 1100 625 900 Estimated Blood Loss 10 Other: Voiding Method Indwelling Catheter Indwelling Catheter Indwelling Catheter # Voids 1 - Exam GENERAL DESCRIPTION: An elderly female lying in bed in no distress RESPIRATORY SYSTEM: Unlabored breathing , decreased breath sounds at bases HEART: S1 S2 regular rate and rhythm , ABDOMEN: Soft , no tenderness EXTREMITIES: Bilateral lower extremity currently dressed - Labs CBC & Chem 7: 08/14/24 05:30 08/14/24 05:30 Labs: Abnormal Lab Results - Last 24 Hours (Table) 08/13/24 08/13/24 08/13/24 Range/Units 14:09 15:16 16:29 RBC (4.10-5.20) 10*6/uL Hgb (12.0-15.0) g/dL Hct (37.2-46.3) % MCV (80.0-97.0) fL MCHC (32.0-37.0) g/dL Chloride (98-107) mmol/L BUN (7-17) mg/dL Glucose (74-99) mg/dL POC Glucose (mg/dL) 155 H 148 H 144 H (70-110) mg/dL Magnesium (1.6-2.3) mg/dL 08/13/24 08/14/24 08/14/24 Range/Units 20:30 05:30 05:30 RBC 2.46 L (4.10-5.20) 10*6/uL Hgb 7.2 L (12.0-15.0) g/dL Hct 23.9 L (37.2-46.3) % MCV 97.2 H (80.0-97.0) fL MCHC 30.1 L (32.0-37.0) g/dL Chloride 110 H (98-107) mmol/L BUN 39 H (7-17) mg/dL Glucose 113 H (74-99) mg/dL POC Glucose (mg/dL) 139 H (70-110) mg/dL Magnesium 1.5 L (1.6-2.3) mg/dL 08/14/24 08/14/24 Range/Units 06:00 11:39 RBC (4.10-5.20) 10*6/uL Hgb (12.0-15.0) g/dL Hct (37.2-46.3) % MCV (80.0-97.0) fL MCHC (32.0-37.0) g/dL Chloride (98-107) mmol/L BUN (7-17) mg/dL Glucose (74-99) mg/dL POC Glucose (mg/dL) 141 H 155 H (70-110) mg/dL Magnesium (1.6-2.3) mg/dL Microbiology - Last 24 Hours (Table) 08/10/24 17:24 Anaerobic Culture - Preliminary Heel - Right Anaerobic Gm Negative Bacilli 08/09/24 15:37 Blood Culture - Preliminary Blood 08/12/24 09:49 Urine Culture - Final Urine,Catheterized Assessment and Plan (1) Stage II pressure ulcer of left buttock Current Visit: Yes Status: Acute Code(s): L89.322 - PRESSURE ULCER OF LEFT BUTTOCK, STAGE 2 SNOMED Code(s): 14260806169305 (2) Stage II pressure ulcer of right buttock Current Visit: Yes Status: Acute Code(s): L89.312 - PRESSURE ULCER OF RIGHT BUTTOCK, STAGE 2 SNOMED Code(s): 47758982894060 (3) Stage III pressure ulcer of right heel Current Visit: Yes Status: Acute Code(s): L89.613 - PRESSURE ULCER OF RIGHT HEEL, STAGE 3 SNOMED Code(s): 93369526497827 (4) Penicillin allergy Current Visit: No Status: Acute Code(s): Z88.0 - ALLERGY STATUS TO PENICILLIN SNOMED Code(s): 16032438 Plan: 1patient being sent to the hospital for evaluation of elevated BUN and creatinine done in the outpatient setting in this patient who did have a right heel stage III pressure ulcer and concern for possible secondary cellulitis 2patient does have bilateral gluteal pressure ulcer but no cellulitis 3 local wound care to the bilateral lower extremity ulcer with Aquacel silver dressing followed by Blue wrap change q. 48-hour 4patient did have a necrotic wound on the right foot plantar aspect that has been debrided by podiatry cultures have been obtained initial culture also growing anaerobes Flagyl has been added continue with Rocephin while waiting for the culture to finalize Dictation was produced using [employer] dictation software. please excuse any grammatical, word or spelling errors. Time with Patient: Less than 30
[2024-08-14 16:38] LABS: Glucose,Whole Blood 133 mg/dL (70-110)
[2024-08-14 20:00] LABS: Glucose,Whole Blood 147 mg/dL (70-110)
--- NOTE | 2024-08-14 22:50 | P.GSCN ---
History of Present Illness Consult date: 08/13/24 Reason for Consult: Right heel wound debridement and deep tissue culture Requesting physician: Abrahan Godwin History of present illness: Patient is a 74 year old female with PMH of CHF, COPD, diabetes mellitus, GERD, hypothyroidism, and hyperlipidemia who was [facility] to the ED from [facility] for abnormal labs (elevated BUN and creatinine) on 08/09/2024. Patient was admitted for possible UTI and STEWART; it was also noted that the patient had sacral and BLE ulcers, along with a malodorous right heel ulcer. During the encounter, patient was pleasant and cooperative but noted to be a poor historian. Patient did not know how long she had the ulcer to the right heel. She cannot recall who was changing her dressings nor how often. Patient denies any rest pain to the BLE or to the right heel wound. This provider was consulted to debride the right heel wound and obtain a deep tissue culture. Review of Systems - EENT Eyes: denies blurred vision, denies diplopia Ears, nose, mouth and throat: Denies headache, Denies vertigo - Cardiovascular Reports shortness of breath, Denies chest pain, Denies palpitations - Respiratory Reports dyspnea, Reports home oxygen - Gastrointestinal Denies constipation, Denies nausea, Denies vomiting - Musculoskeletal Reports as per HPI bilateral: as per HPI - Integumentary Reports foot/leg ulcers Past Medical History Past Medical History: Heart Failure, COPD, Diabetes Mellitus, GERD/Reflux, Hyperlipidemia, Thyroid Disorder Additional Past Medical History / Comment(s): home O2 3-6L per pt. History of Any Multi-Drug Resistant Organisms: None Reported Past Surgical History: Cholecystectomy Additional Past Surgical History / Comment(s): foot Left plate and pins Past Anesthesia/Blood Transfusion Reactions: No Reported Reaction Past Psychological History: Anxiety Additional Psychological History / Comment(s): Anxiety Smoking Status: Unknown if ever smoked Past Alcohol Use History: None Reported Additional Past Alcohol Use History / Comment(s): STARTED SMOKING AT AGE 16, SIG OTHER STATED SHE SMOKES 1.5 PPD Past Drug Use History: None Reported Additional Drug Use History / Comment(s): RARE USE OF MARIJUANA - Past Family History Mother Family Medical History: Hypertension Father Family Medical History: Cancer Medications and Allergies Home Medications Medication Instructions Recorded Confirmed Type Albuterol Inhaler [Ventolin Hfa 1 - 2 puff INHALATION RT-Q6H PRN 01/08/15 History Inhaler] Enalapril [Vasotec] 20 mg PO DAILY@89907/04/24 08/09/24 History Ergocalciferol [Vitamin D2 (1250 1,250 mcg PO MO@89907/04/24 08/09/24 History Mcg = 14058 Iu)] HYDROcodone/APAP 10-325MG [Rodeo 1 tab PO TID PRN 07/04/24 08/09/24 History 10-325] traZODone HCL [Desyrel] 25 mg PO HS@209907/04/24 08/09/24 History Apixaban [Eliquis] 5 mg PO BID@0900,209908/09/24 08/09/24 History Budesonide/Formoterol Fumarate 2 puff INHALATION RT-BID@0900,209908/09/24 08/09/24 History [Symbicort 160-4.5 Mcg Inhaler] Bumetanide [BUMEX] 1 mg PO BID@0600,1400 08/09/24 08/09/24 History Clotrimazole/Betameth Cream 1 applic TOPICAL BID 08/09/24 08/09/24 History [Lotrisone] Docusate [Colace] 100 mg PO DAILY@89908/09/24 08/09/24 History Folic Acid 1 mg PO DAILY@89908/09/24 08/09/24 History Glucerna Shake 1 can PO DAILY@89908/09/24 08/09/24 History INSULIN LISPRO (HumaLOG) [HumaLOG] See Protocol SQ ACHS 08/09/24 08/09/24 History Insulin Glargine (Lantus) [Lantus 35 unit SQ HS@209908/09/24 08/09/24 History Vial] Ipratropium-Albuterol Nebulize 3 ml INHALATION RT-Q6H 08/09/24 08/09/24 History [Duoneb 0.5 mg-3 mg/3 ml Soln] Metoprolol Tartrate [Lopressor] 25 mg PO BID@0900,2100 08/09/24 08/09/24 History Spironolactone [Aldactone] 25 mg PO DAILY@89908/09/24 08/09/24 History Allergies Allergy/AdvReac Type Severity Reaction Status Date / Time Penicillins Allergy Rash/Hives Verified 07/04/24 14:26 Surgical - Exam Vital Signs Temp Pulse Resp BP Pulse Ox 98.4 F 72 18 122/63 97 08/09/24 12:16 08/09/24 12:16 08/09/24 12:16 08/09/24 12:16 08/09/24 12:16 - General no distress, no pain, obese, other (Alert to person and place) - Respiratory other (On nasal cannula) - Cardiovascular Rhythm: other (DP pulses palpable 2/4 bilaterally and PT pulses palpable 1/4 bilaterally; CFT 3 sec. to all 10 toes) - Integumentary other (Stage III wound to plantar lateral right heel; wound is malodorous with extensive necrotic buildup; No undermining and no sinus tracts noted; does not PTB; minimal serous drainage noted) Stage III pressure ulcer noted to plantar lateral right heel; wound is malodorous with extensive nonviable and necrotic buildup; no undermining and no sinus tracts noted; does not PTB; minimal serous drainage noted. Small wounds noted to the lateral aspect of the bilateral calf; wound beds are fibrogranular with some slough and biofilm noted; no malodor noted to either of these wounds; the wounds do not undermine or probe to bone. Results - Labs 08/14/24 05:30 08/14/24 05:30 Abnormal Lab Results - Last 24 Hours (Table) 08/13/24 08/13/24 08/13/24 Range/Units 15:16 16:29 20:30 RBC (4.10-5.20) 10*6/uL Hgb (12.0-15.0) g/dL Hct (37.2-46.3) % MCV (80.0-97.0) fL MCHC (32.0-37.0) g/dL Chloride (98-107) mmol/L BUN (7-17) mg/dL Glucose (74-99) mg/dL POC Glucose (mg/dL) 148 H 144 H 139 H (70-110) mg/dL Magnesium (1.6-2.3) mg/dL 08/14/24 08/14/24 08/14/24 Range/Units 05:30 05:30 06:00 RBC 2.46 L (4.10-5.20) 10*6/uL Hgb 7.2 L (12.0-15.0) g/dL Hct 23.9 L (37.2-46.3) % MCV 97.2 H (80.0-97.0) fL MCHC 30.1 L (32.0-37.0) g/dL Chloride 110 H (98-107) mmol/L BUN 39 H (7-17) mg/dL Glucose 113 H (74-99) mg/dL POC Glucose (mg/dL) 141 H (70-110) mg/dL Magnesium 1.5 L (1.6-2.3) mg/dL 08/14/24 Range/Units 11:39 RBC (4.10-5.20) 10*6/uL Hgb (12.0-15.0) g/dL Hct (37.2-46.3) % MCV (80.0-97.0) fL MCHC (32.0-37.0) g/dL Chloride (98-107) mmol/L BUN (7-17) mg/dL Glucose (74-99) mg/dL POC Glucose (mg/dL) 155 H (70-110) mg/dL Magnesium (1.6-2.3) mg/dL Microbiology - Last 24 Hours (Table) 08/10/24 17:24 Anaerobic Culture - Preliminary Heel - Right Anaerobic Gm Negative Bacilli 08/09/24 15:37 Blood Culture - Preliminary Blood 08/12/24 09:49 Urine Culture - Final Urine,Catheterized Diabetes panel 08/14/24 Range/Units 05:30 Sodium 141 (137-145) mmol/L Potassium 4.9 (3.5-5.1) mmol/L Chloride 110 H (98-107) mmol/L Carbon Dioxide 25 (22-30) mmol/L BUN 39 H (7-17) mg/dL Creatinine 1.01 (0.52-1.04) mg/dL Glucose 113 H (74-99) mg/dL Calcium 8.6 (8.4-10.2) mg/dL Calcium panel 08/14/24 Range/Units 05:30 Calcium 8.6 (8.4-10.2) mg/dL Pituitary panel 08/14/24 Range/Units 05:30 Sodium 141 (137-145) mmol/L Potassium 4.9 (3.5-5.1) mmol/L Chloride 110 H (98-107) mmol/L Carbon Dioxide 25 (22-30) mmol/L BUN 39 H (7-17) mg/dL Creatinine 1.01 (0.52-1.04) mg/dL Glucose 113 H (74-99) mg/dL Calcium 8.6 (8.4-10.2) mg/dL Adrenal panel 08/14/24 Range/Units 05:30 Sodium 141 (137-145) mmol/L Potassium 4.9 (3.5-5.1) mmol/L Chloride 110 H (98-107) mmol/L Carbon Dioxide 25 (22-30) mmol/L BUN 39 H (7-17) mg/dL Creatinine 1.01 (0.52-1.04) mg/dL Glucose 113 H (74-99) mg/dL Calcium 8.6 (8.4-10.2) mg/dL - Imaging Comments: Reviewed XR of right heel; no definitive radiographic evidence of OM noted to the calcaneus at this time Assessment and Plan (1) Stage III pressure ulcer of right heel Narrative/Plan: Performed bedside debridement of the right heel wound; obtained deep tissue cu lture to be sent for aerobic and anaerobic cultures. Results pending. Applied dry sterile dressings to heel and wrapped with Kerlix. Continue with daily dressing changes per wound care provider's (Virginie Fraga) prior recommendations (Apply honey gel dry gauze rolled gauze and secure with paper tape to bilateral lower extremities). After bedside debridement, it was noted that patient still had significant amount of nonviable tissue remaining in the wound bed. Recommend surgical wound debridement to more fully clean the right heel wound of all non- viable tissues followed by wound VAC application. Will see patient on 08/15/2024 to discuss surgical debridement with her; if patient is amenable, will plan for surgical wound debridement with wound VAC application during this admission. Current Visit: Yes Status: Acute Code(s): L89.613 - PRESSURE ULCER OF RIGHT HEEL, STAGE 3 SNOMED Code(s): 50478367363289 (2) Non-pressure chronic ulcer of left calf with fat layer exposed Narrative/Plan: Continue with wound care provider's (Virginie Fraga) recommendations (Apply honey gel dry gauze rolled gauze and secure with paper tape to bilateral lower extremities). Current Visit: Yes Status: Acute Code(s): L97.222 - NON-PRESSURE CHRONIC ULCER OF LEFT CALF W FAT LAYER EXPOSED SNOMED Code(s): 89004105174185152 (3) Non-pressure chronic ulcer of right calf with fat layer exposed Narrative/Plan: Continue with wound care provider's (Virginie Fraga) recommendations (Apply honey gel dry gauze rolled gauze and secure with paper tape to bilateral lower extrem ities). Current Visit: Yes Status: Acute Code(s): L97.212 - NON-PRESSURE CHRONIC ULCER OF RIGHT CALF W FAT LAYER EXPOSED SNOMED Code(s): 80316724672594623 Time with Patient: Greater than 30
--- NOTE | 2024-08-14 22:51 | P.PCN ---
Date of Procedure: 08/13/24 Preoperative Diagnosis: Stage III ulcer, right heel Postoperative Diagnosis: Stage III ulcer, right heel Procedure(s) Performed: Bedside debridement, right heel ulcer Anesthesia: none Surgeon: Nadja Taylor Estimated Blood Loss (ml): 1 Pathology: other (Deep tissue specimen sent for aerobic and anaerobic cultures) Condition: stable Disposition: no change Indications for Procedure: Extensive fibrotic buildup and nonstable eschar to wound bed of right heel ulcer Operative Findings: Consistent with diagnosis Description of Procedure: After obtaining written consent, a sterile #15 scalpel blade and suture forceps were used to sharply excise nonviable and fibrotic tissues from the right heel wound bed to slightly bleeding tissues. The wound was then irrigated with approx. 30mL of sterile saline solution, and a deep tissue specimen was obtained and sent for cultures. It was noted that there was still fibrotic and non-viable tissue left in the wound bed. The wound was dressed with sterile 4x4 gauze and Kerlix rolls. Patient tolerated the procedure well.
--- NOTE | 2024-08-15 06:03 | P.PN ---
Subjective Progress Note Date: 08/14/24 History of present illness; Patient is a 74-year-old female with COPD on 3-6 L of oxygen at baseline, diabe ruthy, GERD, HLD, hypothyroidism who presents from residential for abnormal labs. Patient is poor historian and unsure why she is in hospital. She had recent hospitalization for CHF and bacteremia cultures growing Enterococcus and subsequently discharged on antibiotics to [facility]. Per EMS, patient with abnormal BUN/creatinine. She is denying fever, chills, chest pain, shortness of breath, or dysuria. 08/11/2024. Patient seen and examined at bedside. She remains on ceftriaxone. She is alert and oriented to self only. Gentle IV fluids in setting of CHF. Today's labs hemoglobin 7.4, platelets 121, transferrin 171, sodium 136, potassium 4.8, BUN 116, creatinine 2.4. Transvaginal ultrasound with thickened endometrial stripe up to 8 mm, possible mass, fibroid, blood clot measuring up to 3.8 cm. 2 view right foot x-ray with no convincing evidence of osteomyelitis. 08/12/2024 Patient evaluated today resting in bed. She has had continued vaginal bleeding noted with fresh blood noted on pad. Discussed with Dr Guevara and patient will go for possible D&C tomorrow. Discussed with patients significant other Curt who gave verbal phone consent for the D&C, however did give [facility] son for consent as well. Last dose of eliquis received on 08/10/2024 at 856. Urine culture has been ordered and currently pending. Blood culture is negative so far. Patient remains on course of IV ceftriaxone. Hemoglobin today; 7.5. Renal function improving with BUN 85, creatinine 1.68. 08/13/2024 Patient is evaluated in follow up. Going for dilation and curettage today for continued vaginal bleeding. Hemoglobin 7.8 today and patient remains off eliquis. Renal function continues to improve with BUN 60, creatinine 1.18. Magnesium 1.5. Patient is afebrile, heart rate 66 normal sinus rhythm, blood pressure 119/67, 96% on 2L. 08/14/2024 Patient evaluated today in follow up. Reports vaginal improving better and she is postoperative day #1 D&C with endometrial biopsy. Hemoglobin 7.2. BUN 39, creatinine 1.01. Magnesium 1.5. Review of Systems Constitutional: Denied any fatigue denied any fever. Cardio vascular: denied any chest pain, palpitations Gastrointestinal: denied any nausea, vomiting, diarrhea Pulmonary: Denied any shortness of breath cough Neurologic denied any new focal deficits All inpatient medications were reviewed and appropriate changes in these medications as dictated in the interval history and assessment and plan. PHYSICAL EXAMINATION: GENERAL: The patient is alert and oriented x3, not in any acute distress. Well developed, well nourished. HEENT: Pupils are round and equally reacting to light. EOMI. No scleral icterus. No conjunctival pallor. Normocephalic, atraumatic. No pharyngeal erythema. No thyromegaly. CARDIOVASCULAR: S1 and S2 present. No murmurs, rubs, or gallops. PULMONARY: Chest is clear to auscultation, no wheezing or crackles. ABDOMEN: Soft, nontender, nondistended, normoactive bowel sounds. No palpable organomegaly. Red menstrual bleeding continues. MUSCULOSKELETAL: No joint swelling or deformity. EXTREMITIES: No cyanosis, clubbing, or pedal edema. NEUROLOGICAL: Gross neurological examination did not reveal any focal deficits. SKIN: No rashes. Assessment and Plan -Postmenopausal menstrual bleeding with findings of 8mm mass vs. fibroid/blood clot noted on transvaginal ultrasound -Acute urinary tract infection POA with urine culture final and negative although patient had already been started on IV antibiotics. -Right heel decubitus ulcer stage III s/p bedside debridement -Stage II bilateral buttocks pressure injury -Chronic venous insufficiency and venous status dermatitis -Metabolic encephalopathy from infection -Acute kidney injury; rule out interstitial nephritis from recent Abx use; improving -Chronic CHF diastolic dysfunction with severe pulmonary hypertension -Anemia acute blood loss -Hyperkalemia from the STEWART; improved -Right lung lesion pending outpt PET scan -Diabetes Mellitus type 2 with hyperglycemia -COPD and chronic hypoxemic respiratory failure GI prophylaxis DVT prophylaxis Eliquis on hold due to the vaginal bleeding NO CODE Plan Continue to monitor hemoglobin and amt of vaginal bleeding S/P D&C with endometrial biopsy Did give medical clearance for the D&C as her renal function and electrolytes are significantly improved. Continue normal saline at 70 mls/hr Renal function improving and nephrology following Urine culture final and negative will DC antibiotics Continue accuchecks ACHS and sliding scale insulin; continue lantus HS -Continue local wound care per orders [facility] to follow up with patient tomorrow to discuss surgical debridement of the right heel. Pending deep right heel cultures Monitor electrolytes and renal function PT/OT consultation and patient will be returning to [facility] on discharge The impression and plan of care has been dictated by Mignon Freeman, Nurse Practitioner as directed. Dr. Suzi MD I have performed a history and physical examination and medical decision making of this patient, discussed the same with the dictator, and agree with the dictators assessment and plan as written, documented as a scribe. Based on total visit time, I have performed more than 50% of this visit. Objective - Vital Signs Vital signs: Vital Signs Temp 98.2 F 08/14/24 23:20 Pulse 75 08/15/24 03:55 Resp 16 08/15/24 03:55 BP 110/67 08/15/24 03:55 Pulse Ox 99 08/15/24 03:55 FiO2 Intake & Output 08/14/24 08/14/24 08/15/24 06:59 18:59 06:59 Intake Total 20 1140 735 Output Total 625 1400 850 Balance -605 -260 -115 Weight 93 kg 98.5 kg Intake: IV 20 20 Invasive Line 1 20 20 Intake, IV Titration 735 Amount Sodium Chloride 0.9% 1, 735 000 ml @ 70 mls/hr IV . [id number] [facility] Rx#:[id number] Oral 1120 Output: Urine 625 1400 850 Other: Voiding Method Indwelling Catheter Indwelling Catheter Indwelling Catheter # Voids 1 - Labs CBC & Chem 7: 08/14/24 05:30 08/14/24 05:30 Labs: Abnormal Lab Results - Last 24 Hours (Table) 08/14/24 08/14/24 08/14/24 Range/Units 05:30 05:30 06:00 RBC 2.46 L (4.10-5.20) 10*6/uL Hgb 7.2 L (12.0-15.0) g/dL Hct 23.9 L (37.2-46.3) % MCV 97.2 H (80.0-97.0) fL MCHC 30.1 L (32.0-37.0) g/dL Chloride 110 H (98-107) mmol/L BUN 39 H (7-17) mg/dL Glucose 113 H (74-99) mg/dL POC Glucose (mg/dL) 141 H (70-110) mg/dL Magnesium 1.5 L (1.6-2.3) mg/dL 08/14/24 08/14/24 08/14/24 Range/Units 11:39 16:37 19:58 RBC (4.10-5.20) 10*6/uL Hgb (12.0-15.0) g/dL Hct (37.2-46.3) % MCV (80.0-97.0) fL MCHC (32.0-37.0) g/dL Chloride (98-107) mmol/L BUN (7-17) mg/dL Glucose (74-99) mg/dL POC Glucose (mg/dL) 155 H 133 H 147 H (70-110) mg/dL Magnesium (1.6-2.3) mg/dL Assessment and Plan Time with Patient: Less than 30
[2024-08-15 06:15] LABS: Glucose,Whole Blood 111 mg/dL (70-110)
[2024-08-15 06:30] LABS: Basophils # (A) 0.02 10*3/uL (0.00-0.10); Basophils % (A) 0.3 %; Eosinophils # (A) 0.24 10*3/uL (0.04-0.35); Eosinophils % (A) 3.8 %; HCT 23.8 % (37.2-46.3); HGB 7.2 g/dL (12.0-15.0); Lymphocytes # (A) 1.26 10*3/uL (0.90-5.00); Lymphocytes % (A) 19.8 %; MCH 29.3 pg (27.0-32.0); MCHC 30.3 g/dL (32.0-37.0); MCV 96.7 fL (80.0-97.0); Mean Platelet Volume 10.9 fL (9.5-12.2); Monocytes % (A) 4.7 %; Neutrophils # (A) 4.53 10*3/uL (1.80-7.70); Neutrophils % (A) 71.1 %; Platelet Count 151 10*3/uL (140-440); RBC 2.46 10*6/uL (4.10-5.20); RDW 15.6 % (11.5-14.5); WBC 6.37 10*3/uL (4.50-10.00)
[2024-08-15 06:47] LABS: African American GFR (CKD) 79 (>60 ml/min/1.73 sqM); Anion Gap 7 mmol/L; Blood Urea Nitrogen 23 mg/dL (7-17); Calcium 8.8 mg/dL (8.4-10.2); Carbon Dioxide 25 mmol/L (22-30); Chloride 106 mmol/L (98-107); Glucose 88 mg/dL (74-99); Non-African American GFR(CKD) 68 (>60 ml/min/1.73 sqM); Potassium 4.4 mmol/L (3.5-5.1); Sodium 138 mmol/L (137-145)
[2024-08-15] MEDS ORDERED: Magnesium Replacement Protocol 1 EACH MISC MISCELLANE PRN (08:01)
[2024-08-15] MEDS ORDERED: MAGNESIUM SULFATE-D5W PMX 1 GM in DEXTROSE/WATER 1 100ML.BAG IVPB SCH (08:30)
[2024-08-15] MEDS: MAGNESIUM SULFATE-D5W PMX 1 GM in DEXTROSE/WATER 1 100ML.BAG IVPB SCH (11:05)
[2024-08-15] MEDS: MAGNESIUM OXIDE 400 MG TAB PO SCH (11:05)
[2024-08-15 11:47] LABS: Glucose,Whole Blood 177 mg/dL (70-110)
[2024-08-15 14:17] VITALS: BMI 32.1
[2024-08-15 16:30] LABS: Glucose,Whole Blood 129 mg/dL (70-110)
--- NOTE | 2024-08-15 17:27 | P.PN ---
Subjective Progress Note Date: 08/15/24 Patient seen in follow up for STEWART which has resolved. Patient is POD#2 from hysteroscopy with dilation & curettage. Patient tolerating oral intake well. Creatinine is now within normal limits. No new complaints. Objective - Vital Signs Vital signs: Vital Signs Temp 98.0 F 08/15/24 08:00 Pulse 91 08/15/24 08:00 Resp 14 08/15/24 08:00 BP 114/58 08/15/24 08:00 Pulse Ox 95 08/15/24 08:00 FiO2 Intake & Output 08/14/24 08/15/24 08/15/24 18:59 06:59 18:59 Intake Total 1140 735 100 Output Total 1400 850 Balance -260 -115 100 Weight 98.5 kg Intake: IV 20 Invasive Line 1 20 Intake, IV Titration 735 Amount Sodium Chloride 0.9% 1, 735 000 ml @ 70 mls/hr IV . [id number] COUNT INCLUDES THE [facility] Rx#:[id number] Oral 1120 100 Output: Urine 1400 850 Other: Voiding Method Indwelling Catheter Indwelling Catheter - Exam Patient is awake, comfortable, no acute distress Examination of the heart S1 and S2 Examination of the lungs shows bilateral breath sounds are heard no crackles or wheezing Abdomen is soft nontender Examination of lower extremities shows both legs are wrapped chronic skin changes noted with chronic edema. 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 - Labs CBC & Chem 7: 08/15/24 05:34 08/15/24 05:34 Labs: Abnormal Lab Results - Last 24 Hours (Table) 08/14/24 08/14/24 08/14/24 Range/Units 11:39 16:37 19:58 RBC (4.10-5.20) 10*6/uL Hgb (12.0-15.0) g/dL Hct (37.2-46.3) % MCHC (32.0-37.0) g/dL BUN (7-17) mg/dL POC Glucose (mg/dL) 155 H 133 H 147 H (70-110) mg/dL Magnesium (1.6-2.3) mg/dL 08/15/24 08/15/24 08/15/24 Range/Units 05:34 05:34 05:34 RBC 2.46 L (4.10-5.20) 10*6/uL Hgb 7.2 L (12.0-15.0) g/dL Hct 23.8 L (37.2-46.3) % MCHC 30.3 L (32.0-37.0) g/dL BUN 23 H (7-17) mg/dL POC Glucose (mg/dL) (70-110) mg/dL Magnesium 1.4 L (1.6-2.3) mg/dL 08/15/24 Range/Units 06:14 RBC (4.10-5.20) 10*6/uL Hgb (12.0-15.0) g/dL Hct (37.2-46.3) % MCHC (32.0-37.0) g/dL BUN (7-17) mg/dL POC Glucose (mg/dL) 111 H (70-110) mg/dL Magnesium (1.6-2.3) mg/dL Assessment and Plan Assessment: 1. Acute kidney injury, acute tubular necrosis, non-oliguric, resolved 2. Hyperkalemia associated with STEWART, stable 3. Hypomagnesemia, being repleted slowly 3. Anemia, ruled out REY 4. Recent hospitalization for CHF, bacteremia with cultures positive for Enteroccocus, STEWART on last admit Creatinine of 2.4 on 08/01/24 5. Urinary retention, catheter in place, patient is currently 2 person assist post-op Plan: Continue to monitor Magnesium Receiving oral Magnesium TID, recommend 2 grams IVP over 6-8 hours for better absorption Avoid nephrotoxic agents Continue antibiotics per primary team/ID Continue Flomax. Nephrology will sign off for now. Please re-consult if needed. I have seen and examined the patient with resident and agree with A&P as written.
--- NOTE | 2024-08-15 18:57 | P.PN ---
Subjective Progress Note Date: 08/15/24 Principal diagnosis: Right heel stage III ulcer, bilateral LE ulcers; bilateral LE edema Patient seen at bedside this afternoon. Patient is pleasant and is resting comfortably in bed. She is alert and oriented to person and place. Not in acute distress. Patient is currently on 2L nasal cannula. Patient denies any pelvic pain. She endorses mild abdominal discomfort and relates she has not had a BM in several days. She denies any nausea or vomiting. Patient endorses minimal pain to the right heel; she relates that the pain has improved since the bedside debridement on 08/13/2024. Patient denies any NVFC, CP, or bilateral calf pain. She has no new pedal complaints at this visit. WBC count was 6.37. Objective - Vital Signs Vital signs: Vital Signs Temp 98.2 F 08/15/24 15:16 Pulse 76 08/15/24 15:16 Resp 16 08/15/24 15:16 BP 144/74 08/15/24 15:16 Pulse Ox 96 08/15/24 15:16 FiO2 Intake & Output 08/14/24 08/15/24 08/15/24 18:59 06:59 18:59 Intake Total 3958 154 5488 Output Total 1400 850 Balance -260 -115 1330 Weight 98.5 kg 98.5 kg Intake: IV 20 Invasive Line 1 20 Intake, IV Titration 735 650 Amount IV Fluid Continuation 1, 600 000 ml @ 0 mls/hr IV .[facility] Rx#:[id number] Magnesium Sulfate-D5w Pmx 50 1 gm In Dextrose/Water 1 100ml.bag @ 100 mls/hr IVPB Q1H [facility] Rx#: [id number] Sodium Chloride 0.9% 1, 735 000 ml @ 70 mls/hr IV . [id number] [facility] Rx#:[id number] Oral 1120 680 Output: Urine 1400 850 Other: Voiding Method Indwelling Catheter Indwelling Catheter Indwelling Catheter - Constitutional General appearance: Present: cooperative, no acute distress - Respiratory Details: Breathing unlabored with nasal cannula 2L per min. - Cardiovascular Details: DP pulses are palpable 2/4 and PT pulses are palpable 1/4 bilaterally CFT is 3 sec. to all 10 toes. Rhythm: regular - Integumentary Integumentary Comment(s): NPUAP stage III full thickness ulceration to the level of the adipose noted to the plantar lateral aspect of the right heel; wound bed is extensively fibrotic and necrotic. Malodor noted. No purulent drainage noted. Minimal serous drainage noted. The periwound rim is slightly macerated with a hyperkeratotic rim. Wound edges do not undermine; no sinus tracts noted. No surrounding erythema noted. Superficial thickness ulcer to the level of the dermis approx. 3cm x 2cm noted to the lateral aspect of the right calf at mid-tibia; wound bed is fibrogranular but appears viable. No malodor noted. No surrounding erythema noted. Mid serous drainage noted; no purulence noted. Superficial thickness ulcer to the level of the dermis approx. 3cm x 1cm noted to the posterior aspect of the left calf at mid-tibia; wound bed is fibrogranular but appears viable. No malodor noted. No surrounding erythema noted. Mid serous drainage noted; no purulence noted. Skin to BLE is xerotic and hyperpigmented with scaly plaques present in circumferential distribution, consitent with hemosiderin deposition. Nails 1-10 are elongated and thickened. Mild maceration noted to the 4th webspace bilaterally. Integumentary: Present: ulcer - Neurologic Neurologic Comment(s): Light touch sensation is diminished to the level of the toes bilaterally. - Musculoskeletal Musculoskeletal Comment(s): Muscle strength is 4/5 and symmetric for all muscle groups crossing the ankle joint bilaterally. Foot and ankle are in grossly rectus alignment bilaterally. Pain with palpation of the right heel and near mid-calf near ulcers. No pain with active or passive ROM of the foot and ankle bilaterally. - Psychiatric Psychiatric Comment(s): Alert and oriented to person and place. - Labs CBC & Chem 7: 08/15/24 05:34 08/15/24 05:34 Labs: Abnormal Lab Results - Last 24 Hours (Table) 08/14/24 08/14/24 08/15/24 Range/Units 16:37 19:58 05:34 RBC (4.10-5.20) 10*6/uL Hgb (12.0-15.0) g/dL Hct (37.2-46.3) % MCHC (32.0-37.0) g/dL BUN (7-17) mg/dL POC Glucose (mg/dL) 133 H 147 H (70-110) mg/dL Magnesium 1.4 L (1.6-2.3) mg/dL 08/15/24 08/15/24 08/15/24 Range/Units 05:34 05:34 06:14 RBC 2.46 L (4.10-5.20) 10*6/uL Hgb 7.2 L (12.0-15.0) g/dL Hct 23.8 L (37.2-46.3) % MCHC 30.3 L (32.0-37.0) g/dL BUN 23 H (7-17) mg/dL POC Glucose (mg/dL) 111 H (70-110) mg/dL Magnesium (1.6-2.3) mg/dL 08/15/24 Range/Units 11:44 RBC (4.10-5.20) 10*6/uL Hgb (12.0-15.0) g/dL Hct (37.2-46.3) % MCHC (32.0-37.0) g/dL BUN (7-17) mg/dL POC Glucose (mg/dL) 177 H (70-110) mg/dL Magnesium (1.6-2.3) mg/dL Microbiology - Last 24 Hours (Table) 08/09/24 15:37 Blood Culture - Final Blood Assessment and Plan (1) Stage III pressure ulcer of right heel Narrative/Plan: Patient is currently on IV ceftriaxone and metronidazole per ID. Changed dressings to BLE consisting of Opticell Ag+ to the bilateral leg wounds and right heel wound and covered with 4x4 gauze, gauze rolls, and JERRY bandages. Discussed with the patient that she would benefit from surgical debridement of the right heel wound to remove all of the non-viable and necrotic tissues, followed by wound VAC application. Patient is amenable to this plan. Will plan for surgical debridement during this admission tentatively next week. Continue with daily dressing changes in the interim. Current Visit: Yes Status: Acute Code(s): L89.613 - PRESSURE ULCER OF RIGHT HEEL, STAGE 3 SNOMED Code(s): 38812665159440 (2) Non-pressure chronic ulcer of left calf with fat layer exposed Narrative/Plan: Continue with Opticell Ag+ to the wound and cover with 4x4 gauze, gauze roll, a nd JERRY bandage for edema control. Current Visit: Yes Status: Acute Code(s): L97.222 - NON-PRESSURE CHRONIC ULCER OF LEFT CALF W FAT LAYER EXPOSED SNOMED Code(s): 18504970599321020 (3) Non-pressure chronic ulcer of right calf with fat layer exposed Narrative/Plan: Continue with Opticell Ag+ to the wound and cover with 4x4 gauze, gauze roll, and JERRY bandage for edema control. Current Visit: Yes Status: Acute Code(s): L97.212 - NON-PRESSURE CHRONIC ULCER OF RIGHT CALF W FAT LAYER EXPOSED SNOMED Code(s): 24770661733704669 Time with Patient: Less than 30
--- NOTE | 2024-08-15 18:59 | P.PN ---
Subjective Progress Note Date: 08/15/24 History of present illness; Patient is a 74-year-old female with COPD on 3-6 L of oxygen at baseline, diabe ruthy, GERD, HLD, hypothyroidism who presents from [facility] for abnormal labs. Patient is poor historian and unsure why she is in hospital. She had recent hospitalization for CHF and bacteremia cultures growing Enterococcus and subsequently discharged on antibiotics to [facility]. Per EMS, patient with abnormal BUN/creatinine. She is denying fever, chills, chest pain, shortness of breath, or dysuria. 08/11/2024. Patient seen and examined at bedside. She remains on ceftriaxone. She is alert and oriented to self only. Gentle IV fluids in setting of CHF. Today's labs hemoglobin 7.4, platelets 121, transferrin 171, sodium 136, potassium 4.8, BUN 116, creatinine 2.4. Transvaginal ultrasound with thickened endometrial stripe up to 8 mm, possible mass, fibroid, blood clot measuring up to 3.8 cm. 2 view right foot x-ray with no convincing evidence of osteomyelitis. 08/12/2024 Patient evaluated today resting in bed. She has had continued vaginal bleeding noted with fresh blood noted on pad. Discussed with Dr Guevara and patient will go for possible D&C tomorrow. Discussed with patients significant other Curt who gave verbal phone consent for the D&C, however [facility] as [facility]. Last dose of eliquis received on 08/10/2024 at 856. Urine culture has been ordered and currently pending. Blood culture is negative so far. Patient remains on course of IV ceftriaxone. Hemoglobin today; 7.5. Renal function improving with BUN 85, creatinine 1.68. 08/13/2024 Patient is evaluated in follow up. Going for dilation and curettage today for continued vaginal bleeding. Hemoglobin 7.8 today and patient remains off eliquis. Renal function continues to improve with BUN 60, creatinine 1.18. Magnesium 1.5. Patient is afebrile, heart rate 66 normal sinus rhythm, blood pressure 119/67, 96% on 2L. 08/14/2024 Patient evaluated today in follow up. Reports vaginal improving better and she is postoperative day #1 D&C with endometrial biopsy. Hemoglobin 7.2. BUN 39, creatinine 1.01. Magnesium 1.5. 08/15/2024 Patient evaluated today in follow up on the medical floor. Reports unable to move bowels. Patient is postoperative day #2 D&C. Endometrial biopsy currently pending. Anaerobic gm negative bacilli showing on the right heel culture. P atient currently on rocephine and flagyl. Podiatry and ID following. Hemoglobin 7.2, BUN 23, creatinine 0.86. Review of Systems Constitutional: Denied any fatigue denied any fever. Cardio vascular: denied any chest pain, palpitations Gastrointestinal: denied any nausea, vomiting, diarrhea Pulmonary: Denied any shortness of breath cough Neurologic denied any new focal deficits All inpatient medications were reviewed and appropriate changes in these medications as dictated in the interval history and assessment and plan. PHYSICAL EXAMINATION: GENERAL: The patient is alert and oriented x3, not in any acute distress. Well developed, well nourished. HEENT: Pupils are round and equally reacting to light. EOMI. No scleral icterus. No conjunctival pallor. Normocephalic, atraumatic. No pharyngeal erythema. No thyromegaly. CARDIOVASCULAR: S1 and S2 present. No murmurs, rubs, or gallops. PULMONARY: Chest is clear to auscultation, no wheezing or crackles. ABDOMEN: Soft, nontender, nondistended, normoactive bowel sounds. No palpable organomegaly. Red menstrual bleeding continues. MUSCULOSKELETAL: No joint swelling or deformity. EXTREMITIES: No cyanosis, clubbing, or pedal edema. NEUROLOGICAL: Gross neurological examination did not reveal any focal deficits. SKIN: No rashes. Assessment and Plan -Postmenopausal menstrual bleeding with findings of 8mm mass vs. fibroid/blood clot noted on transvaginal ultrasound -Acute urinary tract infection POA with urine culture final and negative although patient had already been started on IV antibiotics. -Right heel decubitus ulcer stage III s/p bedside debridement -Stage II bilateral buttocks pressure injury -Chronic venous insufficiency and venous status dermatitis -Metabolic encephalopathy from infection -Acute kidney injury; rule out interstitial nephritis from recent Abx use; improving -Chronic CHF diastolic dysfunction with severe pulmonary hypertension -Anemia acute blood loss -Hyperkalemia from the STEWART; improved -Right lung lesion pending outpt PET scan -Diabetes Mellitus type 2 with hyperglycemia -COPD and chronic hypoxemic respiratory failure GI prophylaxis DVT prophylaxis Eliquis on hold due to the vaginal bleeding NO CODE Plan Continue to monitor hemoglobin and amt of vaginal bleeding S/P D&C with endometrial biopsy Did give medical clearance for the D&C as her renal function and electrolytes are significantly improved. Continue normal saline at 70 mls/hr Renal function improving and nephrology following Urine culture final and negative will DC antibiotics Continue accuchecks ACHS and sliding scale insulin; continue lantus HS Continue local wound care per orders MWF Possible surgical debridement of the right heel. Pending deep right heel cultures Monitor electrolytes and renal function PT/OT consultation and patient will be returning to [facility] on discharge The impression and plan of care has been dictated by Mignon Freeman, Nurse Practitioner as directed. Dr. Suzi MD I have performed a history and physical examination and medical decision making of this patient, discussed the same with the dictator, and agree with the dictators assessment and plan as written, documented as a scribe. Based on total visit time, I have performed more than 50% of this visit. Objective - Vital Signs Vital signs: Vital Signs Temp 98.0 F 08/15/24 08:00 Pulse 91 08/15/24 08:00 Resp 14 08/15/24 08:00 BP 114/58 08/15/24 08:00 Pulse Ox 95 08/15/24 08:00 FiO2 Intake & Output 08/14/24 08/15/24 08/15/24 18:59 06:59 18:59 Intake Total 1140 735 100 Output Total 1400 850 Balance -260 -115 100 Weight 98.5 kg Intake: IV 20 Invasive Line 1 20 Intake, IV Titration 735 Amount Sodium Chloride 0.9% 1, 735 000 ml @ 70 mls/hr IV . [id number] [facility] Rx#:[id number] Oral 1120 100 Output: Urine 1400 850 Other: Voiding Method Indwelling Catheter Indwelling Catheter - Labs CBC & Chem 7: 08/15/24 05:34 08/15/24 05:34 Labs: Abnormal Lab Results - Last 24 Hours (Table) 08/14/24 08/14/24 08/14/24 Range/Units 11:39 16:37 19:58 RBC (4.10-5.20) 10*6/uL Hgb (12.0-15.0) g/dL Hct (37.2-46.3) % MCHC (32.0-37.0) g/dL BUN (7-17) mg/dL POC Glucose (mg/dL) 155 H 133 H 147 H (70-110) mg/dL Magnesium (1.6-2.3) mg/dL 08/15/24 08/15/24 08/15/24 Range/Units 05:34 05:34 05:34 RBC 2.46 L (4.10-5.20) 10*6/uL Hgb 7.2 L (12.0-15.0) g/dL Hct 23.8 L (37.2-46.3) % MCHC 30.3 L (32.0-37.0) g/dL BUN 23 H (7-17) mg/dL POC Glucose (mg/dL) (70-110) mg/dL Magnesium 1.4 L (1.6-2.3) mg/dL 08/15/24 Range/Units 06:14 RBC (4.10-5.20) 10*6/uL Hgb (12.0-15.0) g/dL Hct (37.2-46.3) % MCHC (32.0-37.0) g/dL BUN (7-17) mg/dL POC Glucose (mg/dL) 111 H (70-110) mg/dL Magnesium (1.6-2.3) mg/dL Assessment and Plan Time with Patient: Less than 30
[2024-08-15] MEDS: LACTULOSE 20 GM/30 ML CUP PO SCH (19:48)
[2024-08-15 20:03] LABS: Glucose,Whole Blood 132 mg/dL (70-110)
[2024-08-16 06:30] LABS: Glucose,Whole Blood 97 mg/dL (70-110)
[2024-08-16 07:41] LABS: Basophils # (A) 0.04 10*3/uL (0.00-0.10); Basophils % (A) 0.6 %; Eosinophils # (A) 0.23 10*3/uL (0.04-0.35); Eosinophils % (A) 3.5 %; HGB 7.9 g/dL (12.0-15.0); Lymphocytes # (A) 1.22 10*3/uL (0.90-5.00); Lymphocytes % (A) 18.3 %; MCH 29.5 pg (27.0-32.0); MCHC 30.4 g/dL (32.0-37.0); Mean Platelet Volume 10.8 fL (9.5-12.2); Monocytes # (A) 0.28 10*3/uL (0.20-1.00); Monocytes % (A) 4.2 %; Neutrophils # (A) 4.85 10*3/uL (1.80-7.70); Neutrophils % (A) 72.9 %; Platelet Count 167 10*3/uL (140-440); RBC 2.68 10*6/uL (4.10-5.20); RDW 15.7 % (11.5-14.5); WBC 6.65 10*3/uL (4.50-10.00)
[2024-08-16 07:59] LABS: African American GFR (CKD) 88 (>60 ml/min/1.73 sqM); Anion Gap 5 mmol/L; Blood Urea Nitrogen 16 mg/dL (7-17); Carbon Dioxide 27 mmol/L (22-30); Chloride 109 mmol/L (98-107); Glucose 96 mg/dL (74-99); Magnesium 1.7 mg/dL (1.6-2.3); Non-African American GFR(CKD) 77 (>60 ml/min/1.73 sqM); Potassium 4.3 mmol/L (3.5-5.1); Sodium 141 mmol/L (137-145)
[2024-08-16 11:12] LABS: Glucose,Whole Blood 119 mg/dL (70-110)
--- NOTE | 2024-08-16 15:07 | P.DS ---
Providers Date of admission: 08/09/24 17:52 Attending physician: Jhony Babb Consults: 08/09/24 17:49 Consult Physician Urgent Consulting Provider: Dominga Wasserman Consult Reason/Comments: Vaginal bleeding Do you want consulting provider notified?: Yes 08/09/24 17:53 Consult Physician Routine Consulting Provider: Seema Lambert Consult Reason/Comments: Acute on chronic renal failure hyperkalemia Do you want consulting provider notified?: Yes 08/10/24 11:09 Consult Physician Routine Consulting Provider: Abrahan Godwin Consult Reason/Comments: UTI/heel and sacral ulceration Do you want consulting provider notified?: Yes 08/13/24 16:47 Consult Physician Stat Consulting Provider: Nadja Taylor Consult Reason/Comments: right foot infected wound. debridement and culture. Do you want consulting provider notified?: Already Contacted Primary care physician: Quoc Corneliusqvi Hospital Course: Final Diagnosis -Postmenopausal menstrual bleeding with findings of 8mm mass vs. fibroid/blood clot noted on transvaginal ultrasound -Acute urinary tract infection POA with urine culture final and negative although patient had already been started on IV antibiotics. -Right heel decubitus ulcer stage III s/p bedside debridement -Stage II bilateral buttocks pressure injury -Chronic venous insufficiency and venous status dermatitis -Metabolic encephalopathy from infection -Acute kidney injury; rule out interstitial nephritis from recent Abx use; improving -Chronic CHF diastolic dysfunction with severe pulmonary hypertension -Anemia acute blood loss -Hyperkalemia from the STEWART; improved -Right lung lesion pending outpt PET scan -Diabetes Mellitus type 2 with hyperglycemia -COPD and chronic hypoxemic respiratory failure Discharge Disposition Patient is stable for discharge to [facility]. Remains off eliquis and need to monitor for any vaginal bleeding. The endometrial biopsy is pending. Follow up with Dr Taylor in the office to schedule surgical debridement of right heel wound. Follow up with Dr Godwin in the office. Discharged on oral ceftin twice daily and oral flagyl three times daily for the next 14 days. dressings to BLE consisting of Opticell Ag+ to the bilateral leg wounds and right heel wound and covered with 4x4 gauze, gauze rolls, and JERRY bandages. Continue indwelling logan catheter Total time taken in discharge planning greater than 35 minutes Hospital Course Patient is a 74-year-old female with COPD on 3-6 L of oxygen at baseline, diabetes, GERD, HLD, hypothyroidism who presents from [facility] for abnormal labs. Patient is poor historian and unsure why she is in hospital. She is noted to have vaginal bleeding. She had recent hospitalization for CHF and bacteremia cultures growing Enterococcus and subsequently discharged on antibiotics to [facility]. She is denying fever, chills, chest pain, shortness of breath, or dysuria. Patient was started on IV ceftriaxone for abnormal urinalysis. On admission BUN 116, creatinine 2.4. Transvaginal ultrasound with thickened endometrial stripe up to 8 mm, possible mass, fibroid, blood clot measuring up to 3.8 cm. 2 view right foot x-ray with no convincing evidence of osteomyelitis. ID, podiatry, nephrology, and OBGYN consulted. Eliquis has been held. Patient is postoperative day #3 D&C. Endometrial biopsy currently pending. Anaerobic gm negative bacilli showing on the right heel culture. Patient currently on rocephine and flagyl. Podiatry and ID following. Patient had a bedside debridement of the right heel wound completed at [facility] and cultures not received by lab. Dr. Taylor recommending surgical debridement and this can be arranged on an outpatient basis and patient to follow up in the office in 1 week. Patient was hydrated and nephrotoxic agents held renal function is now at baseline. She has not had a BM and given bowel regimen. Vaginal bleeding better. Remains off eliquis at this time. To be reevaluated outpatient regarding resuming the blood thinner. Most recent hemoglobin 7.9. BUN 16, creatinine 0.78. Please see medication reconciliation for a list of current medications. Thank you for allowing us to participate in the care of this patient. The impression and plan of care has been dictated by Mignon Freeman Nurse Practitioner as directed. Dr. Suzi MD I have performed a history and physical examination and medical decision making of this patient, discussed the same with the dictator, and agree with the dictators assessment and plan as written, documented as a scribe. Based on total visit time, I have performed more than 50% of this visit. Patient Condition at Discharge: Fair Plan - Discharge Summary Discharge Rx Participant: No New Discharge Prescriptions: New Lactulose [Cephulac] 20 gm PO BID PRN ml PRN Reason: Constipation Tamsulosin [Flomax] 0.4 mg PO PC-SUPPER cap Magnesium Oxide [Mag-Ox] 400 mg PO TID tab Nystatin 100,000 Unit/gm Powd [Mycostatin Powder] 1 applic TOPICAL BID each metroNIDAZOLE [Flagyl] 500 mg PO TID 14 Days #42 tab Cefuroxime [Ceftin] 250 mg PO BID 14 Days #28 tab Continue Albuterol Inhaler [Ventolin Hfa Inhaler] 1 - 2 puff INHALATION RT-Q6H PRN PRN Reason: Shortness Of Breath Ergocalciferol [Vitamin D2 (1250 Mcg = 50852 Iu)] 1,250 mcg PO MO@0900 Clotrimazole/Betameth Cream [Lotrisone] 1 applic TOPICAL BID INSULIN LISPRO (HumaLOG) [HumaLOG] See Protocol SQ ACHS Insulin Glargine (Lantus) [Lantus Vial] 35 unit SQ HS@2100 Budesonide/Formoterol Fumarate [Symbicort 160-4.5 Mcg Inhaler] 2 puff INHALATION RT-BID@0900,2100 Bumetanide [BUMEX] 1 mg PO BID@0600,1400 Spironolactone [Aldactone] 25 mg PO DAILY@0900 HYDROcodone/APAP 10-325MG [[place] 10-325] 1 tab PO TID PRN #6 tab PRN Reason: Pain traZODone HCL [Desyrel] 25 mg PO HS@2100 Ipratropium-Albuterol Nebulize [Duoneb 0.5 mg-3 mg/3 ml Soln] 3 ml INHALATION RT-Q6H Metoprolol Tartrate [Lopressor] 25 mg PO BID@0900,2100 Glucerna Shake 1 can PO DAILY@0900 Folic Acid 1 mg PO DAILY@0900 Docusate [Colace] 100 mg PO DAILY@0900 Discontinued Apixaban [Eliquis] 5 mg PO BID@0900,2100 Enalapril [Vasotec] 20 mg PO DAILY@0900 Discharge Medication List Albuterol Inhaler [Ventolin Hfa Inhaler] 1 - 2 puff INHALATION RT-Q6H PRN 01/08/15 [History] Ergocalciferol [Vitamin D2 (1250 Mcg = 21153 Iu)] 1,250 mcg PO MO@0900 07/04/24 [History] traZODone HCL [Desyrel] 25 mg PO HS@209907/04/24 [History] Budesonide/Formoterol Fumarate [Symbicort 160-4.5 Mcg Inhaler] 2 puff INHALATION RT-BID@0900,209908/09/24 [History] Bumetanide [BUMEX] 1 mg PO BID@0600,1400 08/09/24 [History] Clotrimazole/Betameth Cream [Lotrisone] 1 applic TOPICAL BID 08/09/24 [History] Docusate [Colace] 100 mg PO DAILY@89908/09/24 [History] Folic Acid 1 mg PO DAILY@89908/09/24 [History] Glucerna Shake 1 can PO DAILY@89908/09/24 [History] INSULIN LISPRO (HumaLOG) [HumaLOG] See Protocol SQ ACHS 08/09/24 [History] Insulin Glargine (Lantus) [Lantus Vial] 35 unit SQ HS@209908/09/24 [History] Ipratropium-Albuterol Nebulize [Duoneb 0.5 mg-3 mg/3 ml Soln] 3 ml INHALATION RT-Q6H 08/09/24 [History] Metoprolol Tartrate [Lopressor] 25 mg PO BID@0900,209908/09/24 [History] Spironolactone [Aldactone] 25 mg PO DAILY@89908/09/24 [History] Cefuroxime [Ceftin] 250 mg PO BID 14 Days #28 tab 08/16/24 [Rx] HYDROcodone/APAP 10-325MG [[place] 10-325] 1 tab PO TID PRN #6 tab 08/16/24 [Rx] Lactulose [Cephulac] 20 gm PO BID PRN ml 08/16/24 [Rx] Magnesium Oxide [Mag-Ox] 400 mg PO TID tab 08/16/24 [Rx] Nystatin 100,000 Unit/gm Powd [Mycostatin Powder] 1 applic TOPICAL BID each 08/16/24 [Rx] Tamsulosin [Flomax] 0.4 mg PO PC-SUPPER cap 08/16/24 [Rx] metroNIDAZOLE [Flagyl] 500 mg PO TID 14 Days #42 tab 08/16/24 [Rx] Follow up Appointment(s)/Referral(s): Quoc Devine MD [Primary Care Provider] - 1-2 days Nadja Taylor DPM [STAFF PHYSICIAN] - 1 Week (Podiatry follow up in the office to schedule outpatinet surgical debridement of the right heel) Abrahan Godwin MD [STAFF PHYSICIAN] - 1 Week Zacarias Mahan DO [STAFF PHYSICIAN] - 1 Week Ambulatory/Diagnostic Orders: Basic Metabolic Panel [LAB.AMB] Location: None Selected Complete Blood Count w/diff [LAB.AMB] Time Frame: 4 Days, Location: None [place] ected Magnesium [LAB.AMB] Location: None Selected Activity/Diet/Wound Care/Special Instructions: Changed dressings to BLE consisting of Opticell Ag+ to the bilateral leg wounds and right heel wound and covered with 4x4 gauze, gauze rolls, and JERRY bandages. Podiatry felt patient would benefit from surgical debridement of the right heel wound to remove all of the non-viable and necrotic tissues, followed by wound VAC application this needs to be arranged on an outpatient basis Continue antibiotic therapy with oral ceftin twice daily and oral flagyl three times daily for the next 14 days Remain off eliquis therapy Follow up with ID and Podiatry on discharge Continue bowel regimen Discharge Disposition: TRANSFER TO SNF/ECF
[2024-08-16] MEDS: bisacodyL 5 MG TABLET.DR PO STA (15:18)
--- NOTE | 2024-08-16 15:44 | P.PN ---
Subjective Progress Note Date: 08/15/24 Principal diagnosis: Reason for follow-up is bilateral lower extremity ulcer right foot ulcer and cellulitis Patient is a 74-year-old female with a past medical history significant for COPD diabetes mellitus reflux hyperlipidemia heart failure patient has been brought into the hospital for evaluation of abnormal labs done in the outpatient setting patient did have a positive with concern for possible catheter since UTI and also right foot plantar ulcer and concern for secondary cellulitis. On today's evaluation that is 08/15/2024, the patient continues to be afebrile, the patient is on 2 L nasal oxygen and breathing comfortably, the Pt denies having any chest pain or cough, the patient denies having any abdominal pain no vomiting or any diarrhea or any worsening pain to the lower extremity. Patient did have a white count of 6.37 creatinine 0.86 Objective - Vital Signs Vital signs: Vital Signs Temp 98.5 F 08/15/24 11:09 Pulse 78 08/15/24 12:45 Resp 14 08/15/24 12:45 BP 126/76 08/15/24 11:09 Pulse Ox 96 08/15/24 11:09 FiO2 Intake & Output 08/14/24 08/15/24 08/15/24 18:59 06:59 18:59 Intake Total 3347 493 7163 Output Total 1400 850 Balance -260 -115 1330 Weight 98.5 kg Intake: IV 20 Invasive Line 1 20 Intake, IV Titration 735 650 Amount IV Fluid Continuation 1, 600 000 ml @ 0 mls/hr IV .STK -MED ONE Rx#:[id number] Magnesium Sulfate-D5w Pmx 50 1 gm In Dextrose/Water 1 100ml.bag @ 100 mls/hr IVPB Q1H [facility] Rx#: [id number] Sodium Chloride 0.9% 1, 735 000 ml @ 70 mls/hr IV . [id number] [facility] Rx#:[id number] Oral 1120 680 Output: Urine 1400 850 Other: Voiding Method Indwelling Catheter Indwelling Catheter Indwelling Catheter - Exam GENERAL DESCRIPTION: An elderly female lying in bed in no distress RESPIRATORY SYSTEM: Unlabored breathing , decreased breath sounds at bases HEART: S1 S2 regular rate and rhythm , ABDOMEN: Soft , no tenderness EXTREMITIES: Bilateral lower extremity currently dressed - Labs CBC & Chem 7: 08/16/24 07:10 08/16/24 07:10 Labs: Abnormal Lab Results - Last 24 Hours (Table) 08/14/24 08/14/24 08/15/24 Range/Units 16:37 19:58 05:34 RBC (4.10-5.20) 10*6/uL Hgb (12.0-15.0) g/dL Hct (37.2-46.3) % MCHC (32.0-37.0) g/dL BUN (7-17) mg/dL POC Glucose (mg/dL) 133 H 147 H (70-110) mg/dL Magnesium 1.4 L (1.6-2.3) mg/dL 08/15/24 08/15/24 08/15/24 Range/Units 05:34 05:34 06:14 RBC 2.46 L (4.10-5.20) 10*6/uL Hgb 7.2 L (12.0-15.0) g/dL Hct 23.8 L (37.2-46.3) % MCHC 30.3 L (32.0-37.0) g/dL BUN 23 H (7-17) mg/dL POC Glucose (mg/dL) 111 H (70-110) mg/dL Magnesium (1.6-2.3) mg/dL 08/15/24 Range/Units 11:44 RBC (4.10-5.20) 10*6/uL Hgb (12.0-15.0) g/dL Hct (37.2-46.3) % MCHC (32.0-37.0) g/dL BUN (7-17) mg/dL POC Glucose (mg/dL) 177 H (70-110) mg/dL Magnesium (1.6-2.3) mg/dL Microbiology - Last 24 Hours (Table) 08/09/24 15:37 Blood Culture - Final Blood Assessment and Plan (1) Stage II pressure ulcer of left buttock Current Visit: Yes Status: Acute Code(s): L89.322 - PRESSURE ULCER OF LEFT BUTTOCK, STAGE 2 SNOMED Code(s): 17657561673519 (2) Stage II pressure ulcer of right buttock Current Visit: Yes Status: Acute Code(s): L89.312 - PRESSURE ULCER OF RIGHT BUTTOCK, STAGE 2 SNOMED Code(s): 18469264416964 (3) Stage III pressure ulcer of right heel Current Visit: Yes Status: Acute Code(s): L89.613 - PRESSURE ULCER OF RIGHT HEEL, STAGE 3 SNOMED Code(s): 51342756106014 (4) Penicillin allergy Current Visit: No Status: Acute Code(s): Z88.0 - ALLERGY STATUS TO PENICILLIN SNOMED Code(s): 90410009 Plan: 1patient being sent to the hospital for evaluation of elevated BUN and creatinine done in the outpatient setting in this patient who did have a right heel stage III pressure ulcer and concern for possible secondary cellulitis 2patient does have bilateral gluteal pressure ulcer but no cellulitis 3 local wound care to the bilateral lower extremity ulcer with Aquacel silver dressing followed by Blue wrap change q. 48-hour 4patient did have a necrotic wound on the right foot plantar aspect that has been debrided by podiatry unfortunately the cultures has been lost by the nursing staff 5for now continue with the Hallie and Sunita will discuss further with admitting team in the a.m. Dictation was produced using [employer] dictation software. please excuse any grammatical, word or spelling errors. Time with Patient: Less than 30
--- NOTE | 2024-08-16 15:45 | P.PN ---
Subjective Progress Note Date: 08/16/24 Principal diagnosis: Reason for follow-up is bilateral lower extremity ulcer right foot ulcer and cellulitis Patient is a 74-year-old female with a past medical history significant for COPD diabetes mellitus reflux hyperlipidemia heart failure patient has been brought into the hospital for evaluation of abnormal labs done in the outpatient setting patient did have a positive with concern for possible catheter since UTI and also right foot plantar ulcer and concern for secondary cellulitis. On today's evaluation that is 08/16/2024, Patient is afebrile patient is c urrently on 2 L nasal cannula oxygen and denies having any shortness of breath, the patient denies any chest pain or cough, the patient denies any nausea vomiting did not have any abdominal pain, complaining of constipation no bowel movement since admission no pain to the lower extremity wounds. Patient did have a white count of 6.65, creatinine 0.70 Objective - Vital Signs Vital signs: Vital Signs Temp 98.8 F 08/16/24 11:38 Pulse 71 08/16/24 11:38 Resp 16 08/16/24 11:38 BP 146/72 08/16/24 11:38 Pulse Ox 99 08/16/24 11:38 FiO2 Intake & Output 08/15/24 08/16/24 08/16/24 18:59 06:59 18:59 Intake Total 1430 240 Output Total 3660 606 5373 Balance 230 650 -885 Weight 98.5 kg 98.7 kg Intake: Intake, IV Titration 650 Amount IV Fluid Continuation 1, 600 000 ml @ 0 mls/hr IV .STK -MED ONE Rx#:[id number] Magnesium Sulfate-D5w Pmx 50 1 gm In Dextrose/Water 1 100ml.bag @ 100 mls/hr IVPB Q1H [facility] Rx#: [id number] Oral 780 240 Output: Urine 8247 710 4645 Other: Voiding Method Indwelling Catheter Indwelling Catheter Indwelling Catheter - Exam GENERAL DESCRIPTION: An elderly female lying in bed in no distress RESPIRATORY SYSTEM: Unlabored breathing , decreased breath sounds at bases HEART: S1 S2 regular rate and rhythm , ABDOMEN: Soft , no tenderness EXTREMITIES: Bilateral lower extremity currently dressed - Labs CBC & Chem 7: 08/16/24 07:10 08/16/24 07:10 Labs: Abnormal Lab Results - Last 24 Hours (Table) 08/15/24 08/15/2408/16/25 Range/Units 16:28 20:02 07:10 RBC (4.10-5.20) 10*6/uL Hgb (12.0-15.0) g/dL Hct (37.2-46.3) % MCHC (32.0-37.0) g/dL Chloride 109 H (98-107) mmol/L POC Glucose (mg/dL) 129 H 132 H (70-110) mg/dL 08/16/24 08/16/24 Range/Units 07:10 11:10 RBC 2.68 L (4.10-5.20) 10*6/uL Hgb 7.9 L (12.0-15.0) g/dL Hct 26.0 L (37.2-46.3) % MCHC 30.4 L (32.0-37.0) g/dL Chloride (98-107) mmol/L POC Glucose (mg/dL) 119 H (70-110) mg/dL Microbiology - Last 24 Hours (Table) 08/09/24 15:37 Blood Culture - Final Blood Assessment and Plan (1) Stage II pressure ulcer of left buttock Current Visit: Yes Status: Acute Code(s): L89.322 - PRESSURE ULCER OF LEFT BUTTOCK, STAGE 2 SNOMED Code(s): 75247880158970 (2) Stage II pressure ulcer of right buttock Current Visit: Yes Status: Acute Code(s): L89.312 - PRESSURE ULCER OF RIGHT BUTTOCK, STAGE 2 SNOMED Code(s): 95494965629902 (3) Stage III pressure ulcer of right heel Current Visit: Yes Status: Acute Code(s): L89.613 - PRESSURE ULCER OF RIGHT HEEL, STAGE 3 SNOMED Code(s): 38543597898674 (4) Penicillin allergy Current Visit: No Status: Acute Code(s): Z88.0 - ALLERGY STATUS TO PENICILLIN SNOMED Code(s): 29824971 Plan: 1patient being sent to the hospital for evaluation of elevated BUN and creatinine done in the outpatient setting in this patient who did have a right heel stage III pressure ulcer and concern for possible secondary cellulitis 2patient does have bilateral gluteal pressure ulcer but no cellulitis 3 local wound care to the bilateral lower extremity ulcer with Aquacel silver dressing followed by Blue wrap change q. 48-hour 4patient did have a necrotic wound on the right foot plantar aspect that has been debrided by podiatry unfortunately the cultures has been lost by the nursing staff, podiatry is planning for outpatient debridement and cultures at that time for now consider short course of oral Ceftin and Flagyl on discharge this was discussed with PROMOTIONS REPRESENTATIVE for admitting team working on discharge Dictation was produced using [email or web address] dictation software. please excuse any grammatical, word or spelling errors. Time with Patient: Less than 30
[2024-08-16 16:23] LABS: Glucose,Whole Blood 115 mg/dL (70-110)
[2024-08-16] MEDS ORDERED: HYDROcodone/APAP 10-325MG 1 EACH TAB ONE (17:52)
[2024-08-16] MEDS ORDERED: TAMSULOSIN 0.4 MG CAP.ER.24H PO ONE (17:52)
[2024-08-16 20:00] LABS: Glucose,Whole Blood 94 mg/dL (70-110)
[2024-08-17 07:40] LABS: Glucose,Whole Blood 120 mg/dL (70-110)
[2024-08-17 08:35] VITALS: RESP 16
[2024-08-17 11:44] LABS: Glucose,Whole Blood 115 mg/dL (70-110)
--- NOTE | 2024-08-17 14:52 | P.DS ---
Providers Date of admission: 08/09/24 17:52 Attending physician: Jhony Babb Consults: 08/09/24 17:49 Consult Physician Urgent Consulting Provider: Dominga Wasserman Consult Reason/Comments: Vaginal bleeding Do you want consulting provider notified?: Yes 08/09/24 17:53 Consult Physician Routine Consulting Provider: Seema Lambert Consult Reason/Comments: Acute on chronic renal failure hyperkalemia Do you want consulting provider notified?: Yes 08/10/24 11:09 Consult Physician Routine Consulting Provider: Abrahan Godwin Consult Reason/Comments: UTI/heel and sacral ulceration Do you want consulting provider notified?: Yes 08/13/24 16:47 Consult Physician Stat Consulting Provider: Nadja Taylor Consult Reason/Comments: right foot infected wound. debridement and culture. Do you want consulting provider notified?: Already Contacted Primary care physician: Quoc Corneliusqvi Hospital Course: Final Diagnosis -Postmenopausal menstrual bleeding with findings of 8mm mass vs. fibroid/blood clot noted on transvaginal ultrasound -Acute urinary tract infection POA with urine culture final and negative although patient had already been started on IV antibiotics. -Right heel decubitus ulcer stage III s/p bedside debridement -Stage II bilateral buttocks pressure injury -Chronic venous insufficiency and venous status dermatitis -Metabolic encephalopathy from infection -Acute kidney injury; rule out interstitial nephritis from recent Abx use; improving -Chronic CHF diastolic dysfunction with severe pulmonary hypertension -Anemia acute blood loss -Hyperkalemia from the [facility]; improved -Right lung lesion pending outpt PET scan -Diabetes Mellitus type 2 with hyperglycemia -COPD and chronic hypoxemic respiratory failure Discharge Disposition Patient is stable for discharge to [facility]. Remains off eliquis and need to monitor for any vaginal bleeding. The endometrial biopsy is pending. Follow up with Dr Taylor in the office to schedule surgical debridement of right heel wound. Follow up with Dr Godwin in the office. Discharged on oral ceftin twice daily and oral flagyl three times daily for the next 14 days. dressings to BLE consisting of Opticell Ag+ to the bilateral leg wounds and right heel wound and covered with 4x4 gauze, gauze rolls, and JERRY bandages. Continue indwelling logan catheter Total time taken in discharge planning greater than 35 minutes Hospital Course Patient is a 74-year-old female with COPD on 3-6 L of oxygen at baseline, diabetes, GERD, HLD, hypothyroidism who presents from [facility] living for abnormal labs. Patient is poor historian and unsure why she is in hospital. She is noted to have vaginal bleeding. She had recent hospitalization for CHF and bacteremia cultures growing Enterococcus and subsequently discharged on antibiotics to [facility]. She is denying fever, chills, chest pain, shortness of breath, or dysuria. Patient was started on IV ceftriaxone for abnormal urinalysis. On admission BUN 116, creatinine 2.4. Transvaginal ultrasound with thickened endometrial stripe up to 8 mm, possible mass, fibroid, blood clot measuring up to 3.8 cm. 2 view right foot x-ray with no convincing evidence of osteomyelitis. ID, podiatry, nephrology, and OBGYN consulted. Eliquis has been held. Patient is postoperative day #3 D&C. Endometrial biopsy currently pending. Anaerobic gm negative bacilli showing on the right heel culture. Patient currently on rocephine and flagyl. Podiatry and ID following. Patient had a bedside debridement of the right heel wound completed at [facility] and cultures not received by lab. Dr. Taylor recommending surgical debridement and this can be arranged on an outpatient basis and patient to follow up in the office in 1 week. Patient was hydrated and nephrotoxic agents held renal function is now at baseline. She has not had a BM and given bowel regimen. Vaginal bleeding better. Remains off eliquis at this time. To be reevaluated outpatient regarding resuming the blood thinner. Most recent hemoglobin 7.9. BUN 16, creatinine 0.78. The heel wound was reswabbed growing enterococcus and proteus. Patient to go on oral ceftin twice daily, oral flagyl three times day and zyvox twice daily has been added. Continue same follows up. Patient cleared for discharge. Please see medication reconciliation for a list of current medications. Thank you for allowing us to participate in the care of this patient. The impression and plan of care has been dictated by Mignon Freeman, Nurse Practitioner as directed. Dr. Suzi MD I have performed a history and physical examination and medical decision making of this patient, discussed the same with the dictator, and agree with the dictators assessment and plan as written, documented as a scribe. Based on total visit time, I have performed more than 50% of this visit. Patient Condition at Discharge: Fair Plan - Discharge Summary Discharge Rx Participant: No New Discharge Prescriptions: New Lactulose [Cephulac] 20 gm PO BID PRN ml PRN Reason: Constipation Tamsulosin [Flomax] 0.4 mg PO PC-SUPPER cap Magnesium Oxide [Mag-Ox] 400 mg PO TID tab Nystatin 100,000 Unit/gm Powd [Mycostatin Powder] 1 applic TOPICAL BID each metroNIDAZOLE [Flagyl] 500 mg PO TID 14 Days #42 tab Cefuroxime [Ceftin] 250 mg PO BID 14 Days #28 tab Linezolid [Zyvox] 600 mg PO Q12H 10 Days #20 tab Continue Albuterol Inhaler [Ventolin Hfa Inhaler] 1 - 2 puff INHALATION RT-Q6H PRN PRN Reason: Shortness Of Breath Ergocalciferol [Vitamin D2 (1250 Mcg = 60677 Iu)] 1,250 mcg PO MO@0900 Clotrimazole/Betameth Cream [Lotrisone] 1 applic TOPICAL BID INSULIN LISPRO (HumaLOG) [HumaLOG] See Protocol SQ ACHS Insulin Glargine (Lantus) [Lantus Vial] 35 unit SQ HS@2100 Budesonide/Formoterol Fumarate [Symbicort 160-4.5 Mcg Inhaler] 2 puff INHALATION RT-BID@0900,2100 Bumetanide [BUMEX] 1 mg PO BID@0600,1400 Spironolactone [Aldactone] 25 mg PO DAILY@0900 HYDROcodone/APAP 10-325MG [Dearborn 10-325] 1 tab PO TID PRN #6 tab PRN Reason: Pain traZODone HCL [Desyrel] 25 mg PO HS@2100 Ipratropium-Albuterol Nebulize [Duoneb 0.5 mg-3 mg/3 ml Soln] 3 ml INHALATION RT-Q6H Metoprolol Tartrate [Lopressor] 25 mg PO BID@0900,2100 Glucerna Shake 1 can PO DAILY@0900 Folic Acid 1 mg PO DAILY@0900 Docusate [Colace] 100 mg PO DAILY@0900 Discontinued Apixaban [Eliquis] 5 mg PO BID@0900,2100 Enalapril [Vasotec] 20 mg PO DAILY@0900 Discharge Medication List Albuterol Inhaler [Ventolin Hfa Inhaler] 1 - 2 puff INHALATION RT-Q6H PRN 01/08/15 [History] Ergocalciferol [Vitamin D2 (1250 Mcg = 35310 Iu)] 1,250 mcg PO MO@89907/04/24 [History] traZODone HCL [Desyrel] 25 mg PO HS@209907/04/24 [History] Budesonide/Formoterol Fumarate [Symbicort 160-4.5 Mcg Inhaler] 2 puff INHALATION RT-BID@899,209908/09/24 [History] Bumetanide [BUMEX] 1 mg PO BID@0600,1400 08/09/24 [History] Clotrimazole/Betameth Cream [Lotrisone] 1 applic TOPICAL BID 08/09/24 [History] Docusate [Colace] 100 mg PO DAILY@89908/09/24 [History] Folic Acid 1 mg PO DAILY@89908/09/24 [History] Glucerna Shake 1 can PO DAILY@89908/09/24 [History] INSULIN LISPRO (HumaLOG) [HumaLOG] See Protocol SQ ACHS 08/09/24 [History] Insulin Glargine (Lantus) [Lantus Vial] 35 unit SQ HS@209908/09/24 [History] Ipratropium-Albuterol Nebulize [Duoneb 0.5 mg-3 mg/3 ml Soln] 3 ml INHALATION RT-Q6H 08/09/24 [History] Metoprolol Tartrate [Lopressor] 25 mg PO BID@09,209908/09/24 [History] Spironolactone [Aldactone] 25 mg PO DAILY@89908/09/24 [History] Cefuroxime [Ceftin] 250 mg PO BID 14 Days #28 tab 08/16/24 [Rx] HYDROcodone/APAP 10-325MG [Dearborn 10-325] 1 tab PO TID PRN #6 tab 08/16/24 [Rx] Lactulose [Cephulac] 20 gm PO BID PRN ml 08/16/24 [Rx] Magnesium Oxide [Mag-Ox] 400 mg PO TID tab 08/16/24 [Rx] Nystatin 100,000 Unit/gm Powd [Mycostatin Powder] 1 applic TOPICAL BID each 08/16/24 [Rx] Tamsulosin [Flomax] 0.4 mg PO PC-SUPPER cap 08/16/24 [Rx] metroNIDAZOLE [Flagyl] 500 mg PO TID 14 Days #42 tab 08/16/24 [Rx] Linezolid [Zyvox] 600 mg PO Q12H 10 Days #20 tab 08/17/24 [Rx] Follow up Appointment(s)/Referral(s): Nadja Taylor DPM [STAFF PHYSICIAN] - 1 Week (Podiatry follow up in the office to schedule outpatinet surgical debridement of the right heel) Quoc Devine MD [Primary Care Provider] - 1-2 days Zacarias Mahan DO [STAFF PHYSICIAN] - 1 Week Abrahan Godwin MD [STAFF PHYSICIAN] - 1 Week Ambulatory/Diagnostic Orders: Basic Metabolic Panel [LAB.AMB] Location: None Selected Complete Blood Count w/diff [LAB.AMB] Time Frame: 4 Days, Location: None Selected Magnesium [LAB.AMB] Location: None Selected Activity/Diet/Wound Care/Special Instructions: Changed dressings to BLE consisting of Opticell Ag+ to the bilateral leg wounds and right heel wound and covered with 4x4 gauze, gauze rolls, and JERRY bandages. Podiatry felt patient would benefit from surgical debridement of the right heel wound to remove all of the non-viable and necrotic tissues, followed by wound VAC application this needs to be arranged on an outpatient basis Continue antibiotic therapy with oral ceftin twice daily and oral flagyl three times daily for the next 14 days Remain off eliquis therapy Follow up with ID and Podiatry on discharge Continue bowel regimen Discharge Disposition: TRANSFER TO SNF/ECF
[2024-08-17 15:26] VITALS: BP 163/78; PULSE 86; TEMP 97.9
[2024-08-17 17:05] LABS: Glucose,Whole Blood 104 mg/dL (70-110)
--- NOTE | 2024-08-17 21:23 | P.PN ---
Subjective Progress Note Date: 08/17/24 Principal diagnosis: Reason for follow-up is bilateral lower extremity ulcer right foot ulcer and cellulitis Patient is a 74-year-old female with a past medical history significant for COPD diabetes mellitus reflux hyperlipidemia heart failure patient has been brought into the hospital for evaluation of abnormal labs done in the outpatient setting patient did have a positive with concern for possible catheter since UTI and also right foot plantar ulcer and concern for secondary cellulitis. On today's evaluation that is 08/17/2024, patient has been afebrile, patient is breathing comfortably and is currently on room air, patient denies having any chest pain and cough, patient denies nausea vomiting or diarrhea and no abdominal pain, no pain to the right lower extremity.Still did not have any bowel movement. Patient did have a repeat culture done growing Proteus and Enterococcus faecalis Objective - Vital Signs Vital signs: Vital Signs Temp 98.1 F 08/17/24 07:31 Pulse 83 08/17/24 07:31 Resp 16 08/17/24 07:31 BP 127/74 08/17/24 07:31 Pulse Ox 95 08/17/24 07:31 FiO2 Intake & Output 08/16/24 08/17/24 08/17/24 18:59 06:59 18:59 Intake Total 1280 500 Output Total 1125 Balance 155 500 Weight 95.5 kg Intake: Oral 1280 500 Output: Urine 1125 Other: Voiding Method Indwelling Catheter Indwelling Catheter - Exam GENERAL DESCRIPTION: An elderly female lying in bed in no distress RESPIRATORY SYSTEM: Unlabored breathing , decreased breath sounds at bases HEART: S1 S2 regular rate and rhythm , ABDOMEN: Soft , no tenderness EXTREMITIES: Bilateral lower extremity currently dressed - Labs CBC & Chem 7: 08/16/24 07:10 08/16/24 07:10 Labs: Abnormal Lab Results - Last 24 Hours (Table) 08/16/24 08/17/24 08/17/24 Range/Units 16:22 07:38 11:43 POC Glucose (mg/dL) 115 H 120 H 115 H (70-110) mg/dL Microbiology - Last 24 Hours (Table) 08/16/24 14:12 Gram Stain - Preliminary Foot - Right Wound Culture - Preliminary Proteus vulgaris group Enterococcus faecalis 08/10/24 17:24 Anaerobic Culture - Final Heel - Right Anaerobic Gm Negative Bacilli Anaerobic Gm Negative Bacilli#2 Assessment and Plan (1) Stage II pressure ulcer of left buttock Status: Acute Code(s): L89.322 - PRESSURE ULCER OF LEFT BUTTOCK, STAGE 2 SNOMED Code(s): 79208028549072 (2) Stage II pressure ulcer of right buttock Status: Acute Code(s): L89.312 - PRESSURE ULCER OF RIGHT BUTTOCK, STAGE 2 SNOMED Code(s): 03929731394238 (3) Stage III pressure ulcer of right heel Status: Acute Code(s): L89.613 - PRESSURE ULCER OF RIGHT HEEL, STAGE 3 SNOMED Code(s): 17514059909818 (4) Penicillin allergy Status: Acute Code(s): Z88.0 - ALLERGY STATUS TO PENICILLIN SNOMED Code(s): 56615398 Plan: 1patient being sent to the hospital for evaluation of elevated BUN and creatinine done in the outpatient setting in this patient who did have a right heel stage III pressure ulcer and concern for possible secondary cellulitis 2patient does have bilateral gluteal pressure ulcer but no cellulitis 3 local wound care to the bilateral lower extremity ulcer with Aquacel silver dressing followed by Blue wrap change q. 48-hour 4patient did have a necrotic wound on the right foot plantar aspect that has been debrided by podiatry unfortunately the cultures has been lost by the nursing staff, podiatry is planning for outpatient debridement and cultures at that time culture have been obtained yesterday now growing Proteus and Enterococcus with a previous culture showing anaerobes plan is for oral Zyvox Ceftin and Flagyl for 10 days discussed with [facility] for admitting team working on discharge Dictation was produced using [employer] dictation software. please excuse any grammatical, word or spelling errors. Time with Patient: Less than 30
== END 2024-08-17 18:06 | DRG 673 ==
LOC: EC 12:14 → 3SCARD 17:52 → 4SSUR 08-17 05:38
PROVIDERS: ADMIT Hospitalist; ATTEND Hospitalist
PROC: 0JBQ0ZZ Excision of Right Foot Subcutaneous Tissue and Fascia, Open Approach (ICD-10-PCS; 2024-08-13)
PROC: 0UDB7ZZ Extraction of Endometrium, Via Natural or Artificial Opening (ICD-10-PCS; principal; 2024-08-13 07:30)
DX: N39.0 Urinary tract infection, site not specified (principal); G93.41 Metabolic encephalopathy; L89.613 Pressure ulcer of right heel, stage 3; N17.0 Acute kidney failure with tubular necrosis; L89.312 Pressure ulcer of right buttock, stage 2; L89.322 Pressure ulcer of left buttock, stage 2; I50.32 Chronic diastolic (congestive) heart failure; E11.22 Type 2 diabetes mellitus with diabetic chronic kidney disease; J44.9 Chronic obstructive pulmonary disease, unspecified; I27.20 Pulmonary hypertension, unspecified; E03.9 Hypothyroidism, unspecified; N18.9 Chronic kidney disease, unspecified; D63.1 Anemia in chronic kidney disease; L97.222 Non-pressure chronic ulcer of left calf with fat layer exposed; L97.212 Non-pressure chronic ulcer of right calf with fat layer exposed; J96.11 Chronic respiratory failure with hypoxia; J96.10 Chronic respiratory failure, unspecified whether with hypoxia or hypercapnia; D62 Acute posthemorrhagic anemia; L03.115 Cellulitis of right lower limb; L98.492 Non-pressure chronic ulcer of skin of other sites with fat layer exposed; E11.621 Type 2 diabetes mellitus with foot ulcer; E11.622 Type 2 diabetes mellitus with other skin ulcer; E11.65 Type 2 diabetes mellitus with hyperglycemia; I83.029 Varicose veins of left lower extremity with ulcer of unspecified site; I83.019 Varicose veins of right lower extremity with ulcer of unspecified site; Z79.4 Long term (current) use of insulin; Z79.890 Hormone replacement therapy; N95.0 Postmenopausal bleeding; E78.5 Hyperlipidemia, unspecified; E87.5 Hyperkalemia; F41.9 Anxiety disorder, unspecified; I87.2 Venous insufficiency (chronic) (peripheral); L89.159 Pressure ulcer of sacral region, unspecified stage; L30.9 Dermatitis, unspecified; B95.2 Enterococcus as the cause of diseases classified elsewhere; D25.9 Leiomyoma of uterus, unspecified; R91.8 Other nonspecific abnormal finding of lung field; B96.4 Proteus (mirabilis) (morganii) as the cause of diseases classified elsewhere; E83.42 Hypomagnesemia; Z79.01 Long term (current) use of anticoagulants; Z79.51 Long term (current) use of inhaled steroids; Z79.899 Other long term (current) drug therapy; Z82.49 Family history of ischemic heart disease and other diseases of the circulatory system; Z87.891 Personal history of nicotine dependence; Z88.0 Allergy status to penicillin; Z99.81 Dependence on supplemental oxygen
CPT/HCPCS: 36415; 71046; 76830; 76856; 80048; 80053; 81001; 83540; 83550; 83605; 83735; 83880; 84484; 85025; 85027; 85610; 85730; 87040; 87070; 87075; 87077; 87086; 87186; 87205; 88305; 93005; 94640; 94760; 96361; 96374; 96375; 99285

== ENCOUNTER → 2024-08-30 | Day surgery (SDC) | payer MEDICARE, OTHER ==
[2024-08-29 16:40] VITALS: BMI 31.1
[~2024-08-30] MED LIST changes: -LACTATED RINGERS 1,000 ML IV SCH; -LIDOCAINE 1% 20 ML VIAL (10MG/ML) FOR IV START INTRADERMA PRN; +MIDAZOLAM 2 MG/2 ML VIAL ONE; +PHENYLEPHRINE-0.9% NACL SYG 1,000 MCG/10 ML SYRINGE ONE; +PROPOFOL 10 MG/ML 20 ML VIAL IV ONE; +Pre Op ABX Message 1 EACH MISC MISCELLANE ONE; +WATER FOR INJECTION, STERILE 10 ML VIAL IV ONE; +ePHEDrine 50 MG/ML 1 ML VIAL ONE; +fentaNYL (PF) 50 MCG/ML 2 ML AMP ONE
[2024-08-30 15:08] LABS: Glucose,Whole Blood 97 mg/dL (70-110)
[2024-08-30] MEDS: IV FLUID CONTINUATION 1,000 ML IV ONE (15:10)
[2024-08-30] MEDS: LACTATED RINGERS 1,000 ML BAG IV STA (15:10)
[2024-08-30 15:47] VITALS: TEMP 97.3
[2024-08-30] MEDS: ONDANSETRON 4 MG/2 ML VIAL IVP STA (15:56)
[2024-08-30] MEDS: LIDOCAINE 1% INJ 10MG/ML (20 ML MDV) SQ ONE ×2 (16:38)
[2024-08-30 17:20] VITALS: RESP 16
[2024-08-30 17:25] LABS: Glucose,Whole Blood 107 mg/dL (70-110)
[2024-08-30 17:35] VITALS: BP 107/58; PULSE 89
--- NOTE | 2024-08-31 11:31 | P.OP ---
Date of Procedure: 08/30/24 Preoperative Diagnosis: Stage 3 pressure ulcer, right heel Postoperative Diagnosis: Stage 3 pressure ulcer, right heel Procedure(s) Performed: Debridement, right heel pressure ulcer Implants: None Anesthesia: MAC, local (10cc of 1% lidocaine with epinephrine) Surgeon: Nadja Taylor Pathology: other (Depp tissue specimen sent for A&A culture & sensitivity) Condition: stable Disposition: PACU Indications for Procedure: Infection with positive cultures post bedside debridement on 08/13/2024 Operative Findings: Consistent with diagnosis; fibrotic and nonviable tissues with significant slough and biofilm Description of Procedure: The patient was seen in the pre-op hold area. Consent was signed, correct surgical site was marked, and all questions and concerns related to the proposed procedure were discussed in detail with the patient and her significant other. The patient was then brought to the OR. The patient was left on her surgical bed for the procedure in supine position. The patient's right leg was then prepped w ith betadine to the mid-calf and draped with sterile drapes to the level of the ankle. Next, a time-out was taken to ensure proper laterality and procedure. Next, the right heel was infiltrated with 10cc of 1% lidocaine with epinephrine in a field block fashion. After confirming anesthesia, attention was directed to the plantar aspect of the right heel. The wound edges of the right heel decubitus ulcer were debrided by 1mm, in circumferential manner to remove any epibole to healthy, bleeding margins. Next, attention was directed to the wound bed. A #15 scalpel blade and a rongeur were used to excise any non-viable and necrotic tissues, including slough, biofilm, necrotic and fibrotic tissues to underlying, bleeding healthy tissues. No sinus tracts or tunneling was noted. The wound bed did not probe to bone. The area was then irrigated with 500mL of sterile Irrisept solution. A small piece of deep tissue was then collected and sent for aerobic and anaerobic cultures and sensitivity. Any small bleeding areas were cauterized using Bovie electrocautery. The wound measured 3cm x 1.7 cm x 0.8cm post-debridement. All counts were noted correct x2. The wound was then dressed with Mepilex dressing, 4x4 gauze, ABD pads, Kerlix rolls, and JERRY bandage. The patient was then transferred to PACU in stable condition.
== END ==
LOC: OR 14:10
PROVIDERS: ATTEND Student in an Organized Health Care Education/Training Program
DX: L89.613 Pressure ulcer of right heel, stage 3 (principal); I50.9 Heart failure, unspecified; J44.9 Chronic obstructive pulmonary disease, unspecified; E11.9 Type 2 diabetes mellitus without complications; E03.9 Hypothyroidism, unspecified; E78.5 Hyperlipidemia, unspecified; Z79.51 Long term (current) use of inhaled steroids; Z79.01 Long term (current) use of anticoagulants; Z79.4 Long term (current) use of insulin
CPT/HCPCS: 87070; 87205; 87075; 11043; J2250; J2405; J2003; J3010; J2704; J2371

== ENCOUNTER 2024-09-11 08:50 | Inpatient (IN) | payer MEDICARE ==
--- NOTE | 2024-09-11 09:35 | ED ---
General Adult HPI - General Source: patient, EMS, RN notes reviewed, old records reviewed Mode of arrival: EMS Limitations: no limitations <Zachary Antoine - Last Filed: 09/11/24 14:11> <Emmanuel Lozano - Last Filed: 09/13/24 09:12> - General Chief complaint: Abdominal Pain Stated complaint: Possible bowel obstruction Time Seen by Provider: 09/11/24 08:52 - History of Present Illness Initial comments: Patient is a 74-year-old female with a past medical history significant for COPD diabetes mellitus reflux hyperlipidemia heart failure patient has been brought to the ED from [facility] for complaints of "abdominal pain ". Of note patient was recently hospitalized a month ago for her ulcers on the right heel for which she underwent debridement and culture which showed multiple infectious agents and the patient was sent home on a course of multiple different antibiotics. Patient reports she has been having abdominal pain and has been constipated, last night at [facility] she was given an enema and this morning at 5 AM she had the first of approximately 10 episodes of diarrhea. Patient states [facility] were concerned with her diarrhea and abdominal pain and decided to send her to the hospital. Reports after she had the initial bout of diarrhea her abdominal pain significantly improved and now complains of no abdominal pain whatsoever. Of note patient has been worked up in the past for malignancy in the right lung, after getting a PET scan done recently it showed likely malignancy of the right lung as well as a secondary finding of his significant amount of stool in the colon. Patient denies headache, chest pain, shortness of breath, nausea, vomiting. (Zachary Antoine) - Related Data Home Medications Medication Instructions Recorded Confirmed Albuterol Inhaler [Ventolin Hfa 1 - 2 puff INHALATION RT-Q6H PRN 01/08/15 09/11/24 Inhaler] Ergocalciferol [Vitamin D2 (1250 1,250 mcg PO MO@89907/04/24 09/11/24 Mcg = 02956 Iu)] traZODone HCL [Desyrel] 25 mg PO HS@209907/04/24 09/11/24 Budesonide/Formoterol Fumarate 2 puff INHALATION RT-BID@0900,209908/09/24 09/11/24 [Symbicort 160-4.5 Mcg Inhaler] Bumetanide [BUMEX] 1 mg PO BID@0600,1400 08/09/24 09/11/24 Docusate [Colace] 100 mg PO DAILY@0900 08/09/24 09/11/24 Folic Acid 1 mg PO DAILY@0900 08/09/24 09/11/24 Glucerna Shake 1 can PO DAILY@0900 08/09/24 09/11/24 INSULIN LISPRO (HumaLOG) [HumaLOG] See Protocol SQ ACHS 08/09/24 09/11/24 Insulin Glargine (Lantus) [Lantus 35 unit SQ HS@209908/09/24 09/11/24 Vial] Ipratropium-Albuterol Nebulize 3 ml INHALATION RT-Q6H PRN 08/09/24 09/11/24 [Duoneb 0.5 mg-3 mg/3 ml Soln] Metoprolol Tartrate [Lopressor] 25 mg PO BID@0900,209908/09/24 09/11/24 Tamsulosin [Flomax] 0.4 mg PO HS@209908/29/24 09/11/24 Amoxic-Pot Clav 875-125Mg 1 tab PO BID@0900,209908/30/24 09/11/24 [Augmentin 875-125] Ciprofloxacin HCl [Cipro] 500 mg PO BID@0900,209908/30/24 09/11/24 Apixaban [Eliquis] 2.5 mg PO BID@0900,209909/11/24 09/11/24 Empagliflozin [Jardiance] 10 mg PO DAILY@0909/11/24 09/11/24 Lactulose [Cephulac] 20 gm PO BID 09/11/24 09/11/24 Magnesium Oxide [Mag-Ox] 400 mg PO TID@0900,1200,209909/11/24 09/11/24 Sennosides/Docusate Sodium [Senna 1 tab PO BID@0900,1700 09/11/24 09/11/24 Plus 8.6-50 mg Tablet] Previous Rx's Medication Instructions Recorded HYDROcodone/APAP 10-325MG [[place] 1 tab PO TID PRN #6 tab 08/16/24 10-325] Allergies Allergy/AdvReac Type Severity Reaction Status Date / Time Penicillins Allergy Rash/Hives Verified 09/11/24 12:12 Review of Systems ROS Other: All systems not noted in ROS Statement are negative. <Zachary Antoine - Last Filed: 09/11/24 14:11> ROS Other: All systems not noted in ROS Statement are negative. <Emmanuel Lozano - Last Filed: 09/13/24 09:12> ROS Statement: Those systems with pertinent positive or pertinent negative responses have been documented in the HPI. Past Medical History Past Medical History: Heart Failure, COPD, Diabetes Mellitus, GERD/Reflux, Hyperlipidemia, Thyroid Disorder Additional Past Medical History / Comment(s): home O2 3-6L per pt. History of Any Multi-Drug Resistant Organisms: None Reported Past Surgical History: Cholecystectomy Additional Past Surgical History / Comment(s): foot Left plate and pins Past Anesthesia/Blood Transfusion Reactions: No Reported Reaction Past Psychological History: Anxiety Smoking Status: Unknown if ever smoked Past Drug Use History: None Reported - Past Family History Mother Family Medical History: Hypertension Father Family Medical History: Cancer <Zachary Antoine - Last Filed: 09/11/24 14:11> General Exam Limitations: no limitations <Zachary Antoine - Last Filed: 09/11/24 14:11> - General Exam Comments Initial Comments: GENERAL: In no apparent distress at the time of examination. Pleasant and paresh ative. HEENT: Head is atraumatic, normocephalic. Pupils are equal, round, and reactive to light. Sclerae anicteric. Conjunctivae are clear. Mucus membranes of the mouth are moist. Neck is supple. RESPIRATORY: Clear to auscultation. No wheezes, rales, or rhonchi. No use of accessory muscles. Patient maintaining oxygen saturation greater than 92%. No chest wall tenderness is noted on palpation or with deep breathing. CARDIOVASCULAR: Regular rate and rhythm. S1 and S2 noted. No systolic or de león tolic murmur auscultated. No JVD noted. No S3 or S4 noted. GASTROINTESTINAL: Distention noted. Abdomen soft and round. Reducible umbilical hernia appreciated. Normal active bowel sounds auscultated x 4 quadrants. No pain or tenderness noted upon palpation. Significant amount of stool mostly diarrhea noted in patient's adult diaper. INTEGUMENTARY: No cyanosis. No jaundice. No rashes noted. Stage II potentially some stage III sacral ulcer noted. EXTREMITIES: 2+ peripheral pulses. No evidence of peripheral edema. No calf tenderness noted. PSYCHIATRIC: Awake, alert, and oriented X 3. Appropriate affect. Intact judgement and insight. (Zachary Antoine) Course Vital Signs 09/11/24 09/11/24 09/11/24 08:51 09:38 09:48 Temperature 98.1 F Pulse Rate 95 66 70 Respiratory 16 18 18 Rate Blood Pressure 81/67 76/42 O2 Sat by Pulse 97 97 97 Oximetry 09/11/24 09/11/24 09/11/24 10:04 10:25 10:37 Temperature Pulse Rate 65 61 63 Respiratory 18 18 16 Rate Blood Pressure 97/51 91/54 92/58 O2 Sat by Pulse 98 97 97 Oximetry 09/11/24 09/11/24 09/11/24 11:26 11:49 12:07 Temperature Pulse Rate 65 71 66 Respiratory 16 16 16 Rate Blood Pressure 81/53 90/60 90/63 O2 Sat by Pulse 97 98 97 Oximetry 09/11/24 09/11/24 09/11/24 12:33 13:11 13:50 Temperature Pulse Rate 69 71 66 Respiratory 18 18 16 Rate Blood Pressure 99/71 94/54 90/51 O2 Sat by Pulse 96 97 97 Oximetry 09/11/24 09/11/24 09/11/24 16:30 16:46 18:39 Temperature Pulse Rate 73 71 86 Respiratory 16 14 18 Rate Blood Pressure 93/57 89/52 101/61 O2 Sat by Pulse 98 97 97 Oximetry 09/11/24 09/11/24 09/11/24 20:00 22:00 23:40 Temperature Pulse Rate 70 68 70 Respiratory 18 18 18 Rate Blood Pressure 80/49 84/51 118/67 O2 Sat by Pulse 97 99 97 Oximetry 09/12/24 09/12/24 09/12/24 01:49 04:00 05:22 Temperature Pulse Rate 67 84 74 Respiratory 18 18 18 Rate Blood Pressure 101/55 138/63 103/61 O2 Sat by Pulse 97 97 96 Oximetry Medical Decision Making - Lab Data Result diagrams: 09/11/24 09:37 09/11/24 09:37 <Zachary Antoine - Last Filed: 09/11/24 14:11> - Lab Data Result diagrams: 09/12/24 05:45 09/12/24 05:45 <Emmanuel Lozano - Last Filed: 09/13/24 09:12> - Medical Decision Making Was pt. sent in by a medical professional or institution ([facility] Grace, SENIOR REACTOR OPERATOR, urgent care, hospital, or [facility]...) When possible be specific @ -Yes, [facility] Did you speak to anyone other than the patient for history (EMS, parent, family, police, friend...)? What history was obtained from this source @ -No Did you review nursing and triage notes (agree or disagree)? Why? @ -I reviewed and agree with nursing and triage notes Were old charts reviewed (outside hosp., previous admission, EMS record, old EKG, old radiological studies, urgent care reports/EKG's, [facility] records)? Report findings @ -Old charts and records were reviewed from previous hospital admission Differential Diagnosis? @ -Differential Abdominal Pain Women: Bowel obstruction, constipation, Appendicitis, Cholecystitis, diverticulosis, ischemic bowel, pancreatitis, hepatitis, UTI, gastroenteritis, AAA, incarcerated hernia, , inflammatory bowel, hepatitis, peptic ulcer disease, splenic infarction, perforated viscus, vulvitis, ovarian torsion, PID, kidney stone, placenta abruption, this is not meant to be an all-inclusive list EKG interpreted by me (3pts min.). @ -None done X-rays interpreted by me (1pt min.). @ -None done CT interpreted by me (1pt min.). @ -None done U/S interpreted by me (1pt. min.). @ -None done What testing was considered but not performed or refused? (CT, X-rays, U/S, lab s)? Why? @ -None What meds were considered but not given or refused? Why? @ -None Did you discuss the management of the patient with other professionals (professionals i.e. GIBSON Grace, SENIOR REACTOR OPERATOR, lab, RT, psych nurse, social media content specialist, monorail crane operator, teacher, fire information officer, medical case manager)? Give summary @ -No Was smoking cessation discussed for >3mins.? @ -No Was critical care preformed (if so, how long)? @ -No Were there social determinants of health that impacted care today? How? (Homelessness, low income, unemployed, alcoholism, drug addiction, transportation, low edu. Level, literacy, decrease access to med. care, retirement, rehab)? @ -No Was there de-escalation of care discussed even if they declined (Discuss DNR or withdrawal of care, Hospice)? DNR status @ -No What co-morbidities impacted this encounter? (DM, HTN, Smoking, COPD, CAD, Cancer, CVA, ARF, Chemo, Hep., AIDS, mental health diagnosis, sleep apnea, morbid obesity)? @ -None Was patient admitted / discharged? Hospital course, mention meds given and route, prescriptions, significant lab abnormalities, going to OR and other pertinent info. @ -Hospital course Undiagnosed new problem with uncertain prognosis? @ -No Drug Therapy requiring intensive monitoring for toxicity (Heparin, Nitro, Insulin, Cardizem)? @ -No Were any procedures done? @ -No Diagnosis/symptom? @ -Default Acute, or Chronic, or Acute on Chronic? @ -Default Uncomplicated (without systemic symptoms) or Complicated (systemic symptoms)? @ -Default Side effects of treatment? @ -No Exacerbation, Progression, or Severe Exacerbation? @ -No Poses a threat to life or bodily function? How? (Chest pain, [place], [place], pneumonia, PE, COPD, DKA, ARF, appy, cholecystitis, CVA, Diverticulitis, Homicidal, Suicidal, threat to staff... and all critical care pts) @ -Yes, severe hyponatremia can lead cerebral edema which can lead to brain herniation, seizures, coma, and potentially . (Zachary Antoine) I personally saw the patient and performed the critical portion of the service. I discussed the patient care with the resident. I directed management, care planning and final disposition of the patient. This includes, but not limited to, review of all lab work, radiological studies, EKG's, consultations, vital signs, and nursing notes. EKG interpreted by me (3pts min.) @As above X-Rays interpreted by me (1 pt min.) @None CT interpreted by me ( 1pt min.) @None U/S interpreted by me (1 pt min.) @None Critical care time of 0 minutes excluding separately billable procedures was spent in conjunction with critical care activities provided by the Resident and Attending simultaneously. I was present during no procedures for all critical portions of the procedure and as immediately available to furnish service during the entire procedure. (Emmanuel Lozano) - Lab Data Lab Results 09/11/24 09/11/24 09/11/24 Range/Units 09:37 09:37 09:37 WBC 11.16 H (4.50-10.00) 10*3/uL RBC 2.36 L (4.10-5.20) 10*6/uL Hgb 7.1 L (12.0-15.0) g/dL Hct 21.7 L (37.2-46.3) % MCV 91.9 D (80.0-97.0) fL MCH 30.1 (27.0-32.0) pg MCHC 32.7 (32.0-37.0) g/dL Plt Count 186 (140-440) 10*3/uL MPV 10.9 (9.5-12.2) fL Immature Gran % (Auto) 0.4 % Neutrophils % 81.0 % Lymphocytes % 13.4 % Monocytes % 4.3 % Eosinophils % 0.6 % Basophils % 0.3 % Immature Gran # 0.05 H (0.00-0.04) 10*3/uL Neutrophils # 9.03 H (1.80-7.70) 10*3/uL Lymphocytes # 1.50 (0.90-5.00) 10*3/uL Monocytes # 0.48 (0.20-1.00) 10*3/uL Eosinophils # 0.07 (0.04-0.35) 10*3/uL Basophils # 0.03 (0.00-0.10) 10*3/uL Sodium 122 L (137-145) mmol/L Potassium 3.4 L (3.5-5.1) mmol/L Chloride 83 L (98-107) mmol/L Carbon Dioxide 32 H (22-30) mmol/L Anion Gap 7 mmol/L BUN 47 H (7-17) mg/dL Creatinine 1.04 (0.52-1.04) mg/dL Est GFR (CKD-EPI)AfAm 62 (>60 ml/min/1.73 sqM) Est GFR (CKD-EPI)NonAf 54 (>60 ml/min/1.73 sqM) Glucose 62 L (74-99) mg/dL Osmolality 262 L (275-295) mOsm/kg Calcium 7.5 L (8.4-10.2) mg/dL Total Bilirubin 0.5 (0.2-1.3) mg/dL AST 17 (14-36) U/L ALT 8 (4-34) U/L Alkaline Phosphatase 92 (38-126) U/L Total Protein 5.4 L (6.3-8.2) g/dL Albumin 3.0 L (3.5-5.0) g/dL Vitamin B12 634.0 (200.0-944.0) pg/mL Disposition <Zachary Antoine - Last Filed: 09/11/24 14:11> <Emmanuel Lozano - Last Filed: 09/13/24 09:12> Clinical Impression: Hyponatremia Disposition: ADMITTED IP TO THIS HOSP
[2024-09-11 09:46] LABS: Basophils # (A) 0.03 10*3/uL (0.00-0.10); Basophils % (A) 0.3 %; Eosinophils # (A) 0.07 10*3/uL (0.04-0.35); Eosinophils % (A) 0.6 %; HCT 21.7 % (37.2-46.3); HGB 7.1 g/dL (12.0-15.0); Lymphocytes % (A) 13.4 %; MCH 30.1 pg (27.0-32.0); MCHC 32.7 g/dL (32.0-37.0); Mean Platelet Volume 10.9 fL (9.5-12.2); Monocytes # (A) 0.48 10*3/uL (0.20-1.00); Monocytes % (A) 4.3 %; Neutrophils # (A) 9.03 10*3/uL (1.80-7.70); Platelet Count 186 10*3/uL (140-440); RBC 2.36 10*6/uL (4.10-5.20); RDW 16.3 % (11.5-14.5); WBC 11.16 10*3/uL (4.50-10.00)
[2024-09-11] MEDS: SODIUM CHLORIDE 0.9% 1,000 ML IV ONE (09:55)
[2024-09-11 09:56] LABS: ALT 8 U/L (4-34); AST 17 U/L (14-36); African American GFR (CKD) 62 (>60 ml/min/1.73 sqM); Alkaline Phosphatase 92 U/L (38-126); Anion Gap 7 mmol/L; Blood Urea Nitrogen 47 mg/dL (7-17); Calcium 7.5 mg/dL (8.4-10.2); Carbon Dioxide 32 mmol/L (22-30); Chloride 83 mmol/L (98-107); Glucose 62 mg/dL (74-99); Non-African American GFR(CKD) 54 (>60 ml/min/1.73 sqM); Potassium 3.4 mmol/L (3.5-5.1); Sodium 122 mmol/L (137-145); Total Bilirubin 0.5 mg/dL (0.2-1.3); Total Protein 5.4 g/dL (6.3-8.2)
[2024-09-11 09:57] LABS: MCV 91.9 fL (80.0-97.0)
--- NOTE | 2024-09-11 10:32 | XR ---
EXAMINATION TYPE: XR KUB DATE OF EXAM: 09/11/2024 10:06 AM COMPARISON: None. CLINICAL INDICATION: Female, 74 years old with history of Possible SBO, TECHNIQUE: XR KUB view(s) obtained. FINDINGS: There is a nonspecific bowel gas pattern. Some small bowel loops as well as the colon contains air. N o dilated loops of bowel are evident. No mass effect is evident. Psoas margins are normal. No organomegaly is present. IMPRESSION: 1. Nonspecific bowel gas pattern. [facility], , 09/11/2024 10:30 AM
[2024-09-11] MEDS ORDERED: NALOXONE 0.4 MG/ML 1 ML VIAL IV PRN (10:37)
[2024-09-11] MEDS: SODIUM CHLORIDE 0.9% 500 ML 500 ML IV ONE (11:11)
[2024-09-11 11:41] LABS: Glucose,Whole Blood 66 mg/dL (70-110)
[2024-09-11] MEDS ORDERED: NON FORMULARY DRUG (Albuterol Inhaler 60 PUFF Puff) INHALATION PRN (13:36)
[2024-09-11] MEDS ORDERED: IPRATROPIUM-ALBUTEROL 3 ML NEB INHALATION PRN (13:36)
[2024-09-11] MEDS: BUMETANIDE 1 MG TAB PO SCH (13:57)
[2024-09-11] MEDS: SENNOSIDES-DOCUSATE SODIUM 1 EACH TAB PO SCH (16:47)
[2024-09-11] MEDS: HYDROcodone/APAP 10-325MG 1 EACH TAB PO PRN (18:45)
[2024-09-11] MEDS: SYMBICORT 160-4.5 MCG INHALER INHALATION SCH (21:41)
[2024-09-11 21:56] LABS: Glucose,Whole Blood 86 mg/dL (70-110)
[2024-09-11] MEDS: METOPROLOL TARTRATE 25 MG TAB PO SCH (21:56)
[2024-09-11] MEDS: traZODone HCL 50 MG TAB PO SCH (22:10)
[2024-09-11] MEDS: INSULIN GLARGINE (LANTUS) 100 UNIT/ML SYR SQ SCH (22:11)
[2024-09-11] MEDS: TAMSULOSIN 0.4 MG CAP.ER.24H PO SCH (22:24)
--- NOTE | 2024-09-11 22:56 | P.CONS ---
History of Present Illness - Reason for Consult Consult date: 09/11/24 Right heel ulcer evaluate need for antibiotics Requesting physician: Sudhir Astorga - Chief Complaint Abdominal pain x 1 day - History of Present Illness Patient is a 74-year-old female with a past medical history significant for Heart Failure, COPD, Diabetes Mellitus, GERD/Reflux, Hyperlipidemia, Thyroid Disorder, also with a right heel diabetic foot ulcer infected with the patient has been on oral antibiotics recently debrided by food mixer repairer on 08/30/2024 culture did grew Morganella and bacteroids is not very clear the patient has been on antibiotics for it or not has been brought into the hospital concerning for abdominal pain and diarrhea along with low sodium. The patient has been constipated prior to that she has been given the name and subsequently he did have multiple loose stools patient did have resolution of her abdominal pain at this point patient denies having any headache or URI symptoms no chest pain shortness with or cough patient has some urinary symptoms no burning but no frequency or suprapubic pain patient denies pain to the right heel wound which seems to be healing not sure about the time of dressing he been using on presentation to the hospital the patient was afebrile no fever have recorded subsequently patient was mildly hypertensive and hypoxic currently on 3 L nasal cannula oxygen patient did have a white count of 11.16 creatinine 1.04 stool for C. difficile was negative infectious disease was consulted for further management of antibiotic therapy Review of Systems Positive point and negatives has been mentioned in the HPI, complete review of systems was performed and all other systems are negative Past Medical History Past Medical History: Heart Failure, COPD, Diabetes Mellitus, GERD/Reflux, Hyperlipidemia, Thyroid Disorder Additional Past Medical History / Comment(s): home O2 3-6L per pt. History of Any Multi-Drug Resistant Organisms: None Reported Past Surgical History: Cholecystectomy Additional Past Surgical History / Comment(s): foot Left plate and pins Past Anesthesia/Blood Transfusion Reactions: No Reported Reaction Past Psychological History: Anxiety Smoking Status: Unknown if ever smoked Past Drug Use History: None Reported - Past Family History Mother Family Medical History: Hypertension Father Family Medical History: Cancer Medications and Allergies Home Medications Medication Instructions Recorded Confirmed Type Albuterol Inhaler [Ventolin Hfa 1 - 2 puff INHALATION RT-Q6H PRN 01/08/09/11/24 History Inhaler] Ergocalciferol [Vitamin D2 (1250 1,250 mcg PO MO@89907/04/24 09/11/24 History Mcg = 15872 Iu)] traZODone HCL [Desyrel] 25 mg PO HS@209907/04/24 09/11/24 History Budesonide/Formoterol Fumarate 2 puff INHALATION RT-BID@0900,209908/09/24 09/11/24 History [Symbicort 160-4.5 Mcg Inhaler] Bumetanide [BUMEX] 1 mg PO BID@0600,1400 08/09/24 09/11/24 History Docusate [Colace] 100 mg PO DAILY@0908/09/24 09/11/24 History Folic Acid 1 mg PO DAILY@89908/09/24 09/11/24 History Glucerna Shake 1 can PO DAILY@89908/09/24 09/11/24 History INSULIN LISPRO (HumaLOG) [HumaLOG] See Protocol SQ ACHS 08/09/24 09/11/24 History Insulin Glargine (Lantus) [Lantus 35 unit SQ HS@209908/09/24 09/11/24 History Vial] Ipratropium-Albuterol Nebulize 3 ml INHALATION RT-Q6H PRN 08/09/24 09/11/24 History [Duoneb 0.5 mg-3 mg/3 ml Soln] Metoprolol Tartrate [Lopressor] 25 mg PO BID@0900,209908/09/24 09/11/24 History HYDROcodone/APAP 10-325MG [[place] 1 tab PO TID PRN #6 tab 08/16/24 09/11/24 Rx 10-325] Tamsulosin [Flomax] 0.4 mg PO HS@209908/29/24 09/11/24 History Amoxic-Pot Clav 875-125Mg 1 tab PO BID@0900,209908/30/24 09/11/24 History [Augmentin 875-125] Ciprofloxacin HCl [Cipro] 500 mg PO BID@0900,209908/30/24 09/11/24 History Apixaban [Eliquis] 2.5 mg PO BID@0900,209909/11/24 09/11/24 History Empagliflozin [Jardiance] 10 mg PO DAILY@0900 06/03/25 06/03/25 History Lactulose [Cephulac] 20 gm PO BID 09/11/24 09/11/24 History Magnesium Oxide [Mag-Ox] 400 mg PO TID@0900,1200,2100 09/11/24 09/11/24 History Sennosides/Docusate Sodium [Senna 1 tab PO BID@0900,1700 09/11/24 09/11/24 History Plus 8.6-50 mg Tablet] Allergies Allergy/AdvReac Type Severity Reaction Status Date / Time Penicillins Allergy Rash/Hives Verified 09/11/24 12:12 Physical Exam Vitals: Vital Signs Temp Pulse Resp BP Pulse Ox 09/11/24 13:50 66 16 90/51 97 09/11/24 13:11 71 18 94/54 97 09/11/24 12:33 69 18 99/71 96 09/11/24 12:07 66 16 90/63 97 09/11/24 11:49 71 16 90/60 98 09/11/24 11:26 65 16 81/53 97 09/11/24 10:37 63 16 92/58 97 09/11/24 10:25 61 18 91/54 97 09/11/24 10:04 65 18 97/51 98 09/11/24 09:48 70 18 76/42 97 09/11/24 09:38 66 18 97 09/11/24 08:51 98.1 F 95 16 81/67 97 Intake and Output 09/10/24 09/11/24 09/11/24 22:59 06:59 14:59 Other: Weight 77.564 kg GENERAL DESCRIPTION: Elderly female lying in bed, no distress. No tachypnea or accessory muscle of respiration use. HEENT: Shows Pallor , no scleral icterus. Oral mucous membrane is dry. No pharyngeal erythema or thrush NECK: Trachea central, no thyromegaly. LUNGS: Unlabored breathing. Clear to auscultation anteriorly. No wheeze or crackle. HEART: S1, S2, regular rate and rhythm. No loud murmur ABDOMEN: Soft, no tenderness , guarding or rigidity, no organomegaly EXTREMITIES: Right heel ulcer has decreased in size no significant slough tissue SKIN: No rash, no masses palpable. NEUROLOGICAL: The patient is awake, alert, oriented x3, mood and affect normal. Results CBC & Chem 7: 09/11/24 09:37 09/11/24 09:37 Labs: Abnormal Lab Results - Last 24 Hours (Table) 09/11/24 09/11/24 09/11/24 Range/Units 09:37 09:37 11:40 WBC 11.16 H (4.50-10.00) 10*3/uL RBC 2.36 L (4.10-5.20) 10*6/uL Hgb 7.1 L (12.0-15.0) g/dL Hct 21.7 L (37.2-46.3) % Immature Gran # 0.05 H (0.00-0.04) 10*3/uL Neutrophils # 9.03 H (1.80-7.70) 10*3/uL Sodium 122 L (137-145) mmol/L Potassium 3.4 L (3.5-5.1) mmol/L Chloride 83 L (98-107) mmol/L Carbon Dioxide 32 H (22-30) mmol/L BUN 47 H (7-17) mg/dL Glucose 62 L (74-99) mg/dL POC Glucose (mg/dL) 66 L (70-110) mg/dL Calcium 7.5 L (8.4-10.2) mg/dL Total Protein 5.4 L (6.3-8.2) g/dL Albumin 3.0 L (3.5-5.0) g/dL Assessment and Plan (1) Diarrhea Current Visit: Yes Status: Acute Code(s): R19.7 - DIARRHEA, UNSPECIFIED SNOMED Code(s): 11182108 (2) Leukocytosis Current Visit: Yes Status: Acute Code(s): D72.829 - ELEVATED WHITE BLOOD CELL COUNT, UNSPECIFIED SNOMED Code(s): 164604783 (3) Type 2 diabetes mellitus with foot ulcer Current Visit: No Status: Acute Code(s): E11.621 - TYPE 2 DIABETES MELLITUS WITH FOOT ULCER; L97.509 - NON-PRESSURE CHRONIC ULCER OTH PRT UNSP FOOT W UNSP SEVERITY SNOMED Code(s): 5065920470881 Plan: 1patient presented hospital abdominal pain diarrhea and this patient has been exposed antibiotic in recent past however stool for C. difficile is negative could be drug-induced as the patient did receive enema prior to that 2patient with a right heel diabetic foot ulcer and wound infection with recent debridement in the outpatient setting by podiatry on 08/30/2024 which did grew Morganella and bacteroids not very clear the patient has received antibiotic for the same or not. 3patient with mild elevated white count and urinary symptoms of burning UTI not entirely excluded. 4we will try to obtain urine for analysis and culture 5-we will empirically add Rocephin 2 g daily and Flagyl 500 mg p.o. 3 times daily while waiting for the workup to be completed We will follow on clinical condition and cultures to further adjust medication if needed Thank you for this consultation we will follow the patient along with you Dictation was produced using [email or web address] dictation software. please excuse any grammatical, word or spelling errors. Time with Patient: Greater than 30
[2024-09-12] MEDS: metroNIDAZOLE 500 MG TAB PO SCH (00:18)
[2024-09-12 01:46] LABS: Appearance,Urine Cloudy (Clear); Bacteria,Urine Occasional /hpf; Bilirubin,Urine Negative (Negative); Blood,Urine Large (Negative); Budding Yeast,Urine Few /hpf; Color,Urine Yellow; Glucose,Urine (UA) 1+ (Negative); Hyaline Casts,Urine 1 /lpf (0-2); Ketones,Urine Negative (Negative); Leukocyte Esterase,Urine Large (Negative); Mucus,Urine Rare /hpf; Nitrite,Urine Negative (Negative); PH, Urine 5.5 (5.0-8.0); Protein,Urine Negative (Negative); RBC,Urine 13 /hpf (0-5); Specific Gravity,Urine 1.008 (1.001-1.035); Squamous Epithelial Cell,Urine 4 /hpf (0-4); Urobilinogen,Urine <2.0 mg/dL (<2.0); WBC,Urine 26 /hpf (0-5)
[2024-09-12 08:11] LABS: Basophils # (A) 0.03 X 10*3/uL (0.00-0.10); Basophils % (A) 0.3 %; Eosinophils % (A) 1.1 %; HCT 23.8 % (37.2-46.3); HGB 7.3 g/dL (12.0-15.0); Lymphocytes # (A) 1.15 X 10*3/uL (0.90-5.00); Lymphocytes % (A) 12.4 %; MCH 29.6 pg (27.0-32.0); MCHC 30.7 g/dL (32.0-37.0); MCV 96.4 FL (80.0-97.0); Mean Platelet Volume 11.1 FL (9.5-12.2); Monocytes # (A) 0.47 X 10*3/uL (0.20-1.00); Monocytes % (A) 5.1 %; NRBC Per 100 WBC 0 X 10*3/uL (0.00-0.01); Neutrophils # (A) 7.49 X 10*3/uL (1.80-7.70); Neutrophils % (A) 80.6 %; Platelet Count 182 X 10*3/uL (140-440); RBC 2.47 X 10*6/uL (4.10-5.20); RDW 16.3 % (11.5-14.5); WBC 9.29 X 10*3/uL (4.50-10.00)
[2024-09-12 08:21] LABS: Creatinine,Urine Random 35.1 mg/dL (28.0-217.0)
[2024-09-12 08:28] LABS: Glucose,Whole Blood 93 mg/dL (70-110)
[2024-09-12 08:29] LABS: % Iron Saturation 27.03 (12.00-45.00); ALT 7 U/L (8-44); AST 17 U/L (13-35); Albumin 3.2 g/dL (3.8-4.9); Alkaline Phosphatase 97 U/L (41-126); BUN/Creat Ratio 41.12 Ratio (12.00-20.00); Blood Urea Nitrogen 32.9 mg/dL (9.0-27.0); Calcium 7.7 mg/dL (8.7-10.3); Carbon Dioxide 30.3 mmol/L (21.6-31.8); Chloride 88 mmol/L (96-109); Glucose 72 mg/dL (70-110); Iron 50 UG/DL (50-170); Potassium 4.1 mmol/L (3.5-5.5); Sodium 131 mmol/L (135-145); Total Bilirubin 0.2 mg/dL (0.3-1.2); Total Iron Binding Capacity 185 UG/DL (228-460); Total Protein 5.2 g/dL (6.2-8.2)
[2024-09-12] MEDS ORDERED: NON FORMULARY DRUG (Glucerna Shake 1 CAN Ml) PO SCH (09:00)
[2024-09-12] MEDS: DOCUSATE 100 MG CAP PO SCH (09:40)
[2024-09-12] MEDS: FOLIC ACID 1 MG TAB PO SCH (09:41)
[2024-09-12] MEDS: DAPAGLIFLOZIN PROPANEDIOL 5 MG TABLET PO SCH (09:41)
[2024-09-12 09:46] LABS: Glucose,Whole Blood 157 mg/dL (70-110)
--- NOTE | 2024-09-12 10:30 | P.HPIM ---
History of Present Illness H&P Date: 09/11/24 History of present illness; patient 74-year-old lady with past medical history significant for COPD, diabetes mellitus, CHF who is [facility] a [facility] was brought to the ER for abdominal pain. Patient was recently in the hospital in August at which time she was treated for right heel ulcer and was discharged on antibiotics. Patient was all right couple of days back when She started complaining of constipation. Patient was given enema at the facility and following that she had multiple bouts of diarrhea. Patient also having abdominal pain. There is no complaint of shortness of breath. Patient denies any palpitation. There is no complaint of orthopnea or PND. De nies any nausea, vomiting . Patient denies any complaint of dizziness. There is no complaint of headache. Because of the symptoms, patient was sent to the ER Initial lab work done in the ER showed WBC 11.16, hemoglobin 7.1, platelet count 186, sodium 122, potassium 3.4, BUN 47, creatinine 1.04, glucose 62, calcium 9.5, X-ray KUB done showed nonspecific bowel gas pattern Patient admitted to internal medicine service REVIEW OF SYSTEMS: CONSTITUTIONAL: No fever, no malaise, no fatigue. HEENT: No recent visual problems or hearing problems. Denied any sore throat. CARDIOVASCULAR: As mentioned above PULMONARY: As mentioned above GASTROINTESTINAL: As mentioned above HEMATOLOGICAL: Denies any bleeding or petechiae. GENITOURINARY: Denies any burning micturition, frequency, or urgency. MUSCULOSKELETAL/RHEUMATOLOGICAL: Denies any joint pain, swelling, or any muscle pain. ENDOCRINE: Denies any polyuria or polydipsia. The rest of the 14-point review of systems is negative. PHYSICAL EXAMINATION: GENERAL: The patient is alert and oriented x3, chronically ill looking HEENT: Pupils are round and equally reacting to light. EOMI. No scleral icterus. No conjunctival pallor. Normocephalic, atraumatic. No pharyngeal erythema. No thyromegaly. CARDIOVASCULAR: S1 and S2 present. No murmurs, rubs, or gallops. PULMONARY: Chest is clear to auscultation, no wheezing or crackles. ABDOMEN: Soft, nontender, nondistended, normoactive bowel sounds. No palpable organomegaly. MUSCULOSKELETAL: No joint swelling or deformity. EXTREMITIES: No cyanosis, clubbing, or pedal edema. NEUROLOGICAL: Gross neurological examination did not reveal any focal deficits. SKIN: Right heel ulcer Assessment and plan Hyponatremia Hypokalemia Anemia Stage II pressure ulcer of left buttock Stage II pressure ulcer of right buttock Stage III pressure ulcer of right heel Chronic venous insufficiency and venous status dermatitis Chronic CHF diastolic dysfunction with severe pulmonary hypertension -Right lung lesion -Diabetes Mellitus type 2 with hyperglycemia -COPD and chronic hypoxemic respiratory failure Monitor vital signs Monitor CBC Monitor CMP Ordered urine lites Order serum osmolality Ordered anemia workup Ordered FOBT Resume home meds Consult nephrology Consult ID Labs and medication were reviewed.. Continue same treatment. Continue with symptomatic treatment. Resume home medication. Monitor labs and vitals. DVT and GI prophylaxis. Further recommendations as per clinical course of the patient Dictation was produced using [employer] dictation software. please excuse any grammatical, word or spelling errors. Past Medical History Past Medical History: Heart Failure, COPD, Diabetes Mellitus, GERD/Reflux, Hyperlipidemia, Thyroid Disorder Additional Past Medical History / Comment(s): home O2 3-6L per pt. History of Any Multi-Drug Resistant Organisms: None Reported Past Surgical History: Cholecystectomy Additional Past Surgical History / Comment(s): foot Left plate and pins Past Anesthesia/Blood Transfusion Reactions: No Reported Reaction Past Psychological History: Anxiety Smoking Status: Unknown if ever smoked Past Drug Use History: None Reported - Past Family History Mother Family Medical History: Hypertension Father Family Medical History: Cancer Medications and Allergies Home Medications Medication Instructions Recorded Confirmed Type Albuterol Inhaler [Ventolin Hfa 1 - 2 puff INHALATION RT-Q6H PRN 01/08/15 09/11/24 History Inhaler] Ergocalciferol [Vitamin D2 (1250 1,250 mcg PO MO@0907/04/24 09/11/24 History Mcg = 11321 Iu)] traZODone HCL [Desyrel] 25 mg PO HS@209907/04/24 09/11/24 History Budesonide/Formoterol Fumarate 2 puff INHALATION RT-BID@0900,209908/09/24 09/11/24 History [Symbicort 160-4.5 Mcg Inhaler] Bumetanide [BUMEX] 1 mg PO BID@0600,1400 08/09/24 09/11/24 History Docusate [Colace] 100 mg PO DAILY@0900 08/09/24 09/11/24 History Folic Acid 1 mg PO DAILY@89908/09/24 09/11/24 History Glucerna Shake 1 can PO DAILY@89908/09/24 09/11/24 History INSULIN LISPRO (HumaLOG) [HumaLOG] See Protocol SQ ACHS 08/09/24 09/11/24 History Insulin Glargine (Lantus) [Lantus 35 unit SQ HS@209908/09/24 09/11/24 History Vial] Ipratropium-Albuterol Nebulize 3 ml INHALATION RT-Q6H PRN 08/09/24 09/11/24 History [Duoneb 0.5 mg-3 mg/3 ml Soln] Metoprolol Tartrate [Lopressor] 25 mg PO BID@0900,209908/09/24 09/11/24 History HYDROcodone/APAP 10-325MG [[place] 1 tab PO TID PRN #6 tab 08/16/24 09/11/24 Rx 10-325] Tamsulosin [Flomax] 0.4 mg PO HS@209908/29/24 09/11/24 History Amoxic-Pot Clav 875-125Mg 1 tab PO BID@0900,209908/30/24 09/11/24 History [Augmentin 875-125] Ciprofloxacin HCl [Cipro] 500 mg PO BID@0900,209908/30/24 09/11/24 History Apixaban [Eliquis] 2.5 mg PO BID@0900,209909/11/24 09/11/24 History Empagliflozin [Jardiance] 10 mg PO DAILY@89909/11/24 09/11/24 History Lactulose [Cephulac] 20 gm PO BID 09/11/24 09/11/24 History Magnesium Oxide [Mag-Ox] 400 mg PO TID@0900,1200,209909/11/24 09/11/24 History Sennosides/Docusate Sodium [Senna 1 tab PO BID@0900,1700 09/11/24 09/11/24 History Plus 8.6-50 mg Tablet] Allergies Allergy/AdvReac Type Severity Reaction Status Date / Time Penicillins Allergy Rash/Hives Verified 09/11/24 12:12 Physical Exam Vitals: Vital Signs Temp Pulse Resp BP Pulse Ox 09/11/24 13:11 71 18 94/54 97 09/11/24 12:33 69 18 99/71 96 09/11/24 12:07 66 16 90/63 97 09/11/24 11:49 71 16 90/60 98 09/11/24 11:26 65 16 81/53 97 09/11/24 10:37 63 16 92/58 97 09/11/24 10:25 61 18 91/54 97 09/11/24 10:04 65 18 97/51 98 09/11/24 09:48 70 18 76/42 97 09/11/24 09:38 66 18 97 09/11/24 08:51 98.1 F 95 16 81/67 97 Intake and Output 09/10/24 09/11/24 09/11/24 22:59 06:59 14:59 Other: Weight 77.564 kg Results CBC & Chem 7: 09/11/24 09:37 09/11/24 09:37 Labs: Abnormal Lab Results - Last 24 Hours (Table) 09/11/24 09/11/24 09/11/24 Range/Units 09:37 09:37 11:40 WBC 11.16 H (4.50-10.00) 10*3/uL RBC 2.36 L (4.10-5.20) 10*6/uL Hgb 7.1 L (12.0-15.0) g/dL Hct 21.7 L (37.2-46.3) % Immature Gran # 0.05 H (0.00-0.04) 10*3/uL Neutrophils # 9.03 H (1.80-7.70) 10*3/uL Sodium 122 L (137-145) mmol/L Potassium 3.4 L (3.5-5.1) mmol/L Chloride 83 L (98-107) mmol/L Carbon Dioxide 32 H (22-30) mmol/L BUN 47 H (7-17) mg/dL Glucose 62 L (74-99) mg/dL POC Glucose (mg/dL) 66 L (70-110) mg/dL Calcium 7.5 L (8.4-10.2) mg/dL Total Protein 5.4 L (6.3-8.2) g/dL Albumin 3.0 L (3.5-5.0) g/dL
[2024-09-12 12:04] LABS: Glucose,Whole Blood 138 mg/dL (70-110)
--- NOTE | 2024-09-12 12:58 | P.NPCON ---
History of Present Illness - Reason for Consult hyponatremia - History of Present Illness Patient is a 74-year-old female with history of COPD, type 2 diabetes, CHF who is admitted from [facility] with complaints of abdominal pain and constipation. Patient has a history of multiple ulcers on the right heel for which she has been on antibiotics. Patient received enema and had multiple loose stools yesterday. Abdominal pain worsened and therefore she was sent to the ER. Sodium was 122 and improved to 131 today. Previous sodium was 134 on 09/04/2024. No complaints of numbness tingling or vomiting. Patient received IV fluid bolus in the ER. Past Medical History Past Medical History: Heart Failure, COPD, Diabetes Mellitus, GERD/Reflux, Hyperlipidemia, Thyroid Disorder Additional Past Medical History / Comment(s): home O2 3-6L per pt. History of Any Multi-Drug Resistant Organisms: None Reported Past Surgical History: Cholecystectomy Additional Past Surgical History / Comment(s): foot Left plate and pins Past Anesthesia/Blood Transfusion Reactions: No Reported Reaction Past Psychological History: Anxiety Smoking Status: Unknown if ever smoked Past Drug Use History: None Reported - Past Family History Mother Family Medical History: Hypertension Father Family Medical History: Cancer Medications and Allergies Home Medications Medication Instructions Recorded Confirmed Type Albuterol Inhaler [Ventolin Hfa 1 - 2 puff INHALATION RT-Q6H PRN 01/08/15 09/11/24 History Inhaler] Ergocalciferol [Vitamin D2 (1250 1,250 mcg PO MO@89907/04/24 09/11/24 History Mcg = 16955 Iu)] traZODone HCL [Desyrel] 25 mg PO HS@209907/04/24 09/11/24 History Budesonide/Formoterol Fumarate 2 puff INHALATION RT-BID@899,209908/09/24 09/11/24 History [Symbicort 160-4.5 Mcg Inhaler] Bumetanide [BUMEX] 1 mg PO BID@0600,1400 08/09/24 09/11/24 History Docusate [Colace] 100 mg PO DAILY@89908/09/24 09/11/24 History Folic Acid 1 mg PO DAILY@89908/09/24 09/11/24 History Glucerna Shake 1 can PO DAILY@89908/09/24 09/11/24 History INSULIN LISPRO (HumaLOG) [HumaLOG] See Protocol SQ ACHS 08/09/24 09/11/24 Hi story Insulin Glargine (Lantus) [Lantus 35 unit SQ HS@209908/09/24 09/11/24 History Vial] Ipratropium-Albuterol Nebulize 3 ml INHALATION RT-Q6H PRN 08/09/24 09/11/24 History [Duoneb 0.5 mg-3 mg/3 ml Soln] Metoprolol Tartrate [Lopressor] 25 mg PO BID@0900,209908/09/24 09/11/24 History HYDROcodone/APAP 10-325MG [[place] 1 tab PO TID PRN #6 tab 08/16/24 09/11/24 Rx 10-325] Tamsulosin [Flomax] 0.4 mg PO HS@209908/29/24 09/11/24 History Amoxic-Pot Clav 875-125Mg 1 tab PO BID@0900,209908/30/24 09/11/24 History [Augmentin 875-125] Ciprofloxacin HCl [Cipro] 500 mg PO BID@0900,209908/30/24 09/11/24 History Apixaban [Eliquis] 2.5 mg PO BID@0900,209909/11/24 09/11/24 History Empagliflozin [Jardiance] 10 mg PO DAILY@0900 09/11/24 09/11/24 History Lactulose [Cephulac] 20 gm PO BID 09/11/24 09/11/24 History Magnesium Oxide [Mag-Ox] 400 mg PO TID@0900,1200,209909/11/24 09/11/24 History Sennosides/Docusate Sodium [Senna 1 tab PO BID@0900,1700 09/11/24 09/11/24 History Plus 8.6-50 mg Tablet] Allergies Allergy/AdvReac Type Severity Reaction Status Date / Time Penicillins Allergy Rash/Hives Verified 09/11/24 12:12 Physical Exam Vitals: Vital Signs Temp Pulse Pulse Resp BP BP Pulse Ox 09/12/24 12:00 98.4 F 83 20 155/93 99 09/12/24 09:07 99 09/12/24 08:23 97.7 F 90 20 102/55 96 09/12/24 05:22 74 18 103/61 96 09/12/24 04:00 84 18 138/63 97 09/12/24 01:49 67 18 101/55 97 09/11/24 23:40 70 18 118/67 97 09/11/24 22:00 68 18 84/51 99 09/11/24 20:00 70 18 80/49 97 09/11/24 18:39 86 18 101/61 97 09/11/24 16:46 71 14 89/52 97 09/11/24 16:30 73 16 93/57 98 09/11/24 13:50 66 16 90/51 97 09/11/24 13:11 71 18 94/54 97 Patient is comfortable awake no acute distress Examination of the heart S1 and S2 Examination of the lungs bilateral breath sounds are heard Abdomen is soft nontender Examination of lower extremities shows no significant edema CONSULTING TECHNICAL DIRECTOR exam grossly intact Results - Lab Results Most recent lab results Calcium 7.7 mg/dL (8.7-10.3) L 09/12/24 05:45 09/12/24 05:45 09/12/24 05:45 Assessment and Plan Assessment: 1. Hypovolemic hyponatremia secondary to significant diarrhea, improved with normal saline administration. 2. Chronic lower extremity ulcers, mostly on the right heel, status post recent antibiotics 3. Chronic lower extremity edema maintained on Bumex 4. Anemia with no active bleeding noted. Hemoglobin has been staying between 7 to 8 g/dL for about 1 month now Plan: Continue off of IV fluids DC Bumex Repeat labs in a.m. Encouraged increased oral intake. Thank you for the consultation. We will continue to follow the patient with you during her hospitalization.
--- NOTE | 2024-09-12 13:03 | P.PN ---
Subjective Progress Note Date: 09/12/24 patient 74-year-old lady with past medical history significant for COPD, diabetes mellitus, CHF who is currently a resident of a [facility] facility was brought to the ER for abdominal pain. Patient was recently in the hospital in August at which time she was treated for right heel ulcer and was discharged on antibiotics. Patient was all right couple of days back when She started complaining of constipation. Patient was given enema at the facility and following that she had multiple bouts of diarrhea. Patient also having abdominal pain. There is no complaint of shortness of breath. Patient denies any palpitation. There is no complaint of orthopnea or PND. Denies any nausea, vomiting . Patient denies any complaint of dizziness. There is no complaint of headache. Because of the symptoms, patient was sent to the ER Initial lab work done in the ER showed WBC 11.16, hemoglobin 7.1, platelet count 186, sodium 122, potassium 3.4, BUN 47, creatinine 1.04, glucose 62, calcium 9.5, X-ray KUB done showed nonspecific bowel gas pattern Patient admitted to internal medicine service 09/12. Patient seen and examined labs done showed WBC 9.29, hemoglobin 10.3, platelet count 182 sodium 131, potassium 4.1, BUN 32.9, creatinine 0.8 UA done showed large amount of leukocyte Estrace urine WBC 26. State she feels better. REVIEW OF SYSTEMS: CONSTITUTIONAL: No fever, no malaise,. CARDIOVASCULAR: No chest pain, no palpitations, no syncope. PULMONARY: No shortness of breath, no cough, GASTROINTESTINAL: No diarrhea, no nausea, no vomiting, no abdominal pain. NEUROLOGICAL: No headaches, no weakness, PHYSICAL EXAMINATION: GENERAL: The patient is alert and oriented x3, chronically ill looking HEENT: Pupils are round and equally reacting to light. EOMI. No scleral icterus. No conjunctival pallor. Normocephalic, atraumatic. No pharyngeal erythema. No thyromegaly. CARDIOVASCULAR: S1 and S2 present. No murmurs, rubs, or gallops. PULMONARY: Chest is clear to auscultation, no wheezing or crackles. ABDOMEN: Soft, nontender, nondistended, normoactive bowel sounds. No palpable organomegaly. MUSCULOSKELETAL: No joint swelling or deformity. EXTREMITIES: No cyanosis, clubbing, or pedal edema. NEUROLOGICAL: Gross neurological examination did not reveal any focal deficits. 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 C. difficile negative ID following Labs and medication were reviewed.. Continue same treatment. Continue with symptomatic treatment. Resume home medication. Monitor labs and vitals. DVT and GI prophylaxis. Further recommendations as per clinical course of the patient Dictation was produced using [employer] dictation software. please excuse any grammatical, word or spelling errors. Objective - Vital Signs Vital signs: Vital Signs Temp 97.7 F 09/12/24 08:23 Pulse 90 09/12/24 08:23 Resp 20 09/12/24 08:23 BP 102/55 09/12/24 08:23 Pulse Ox 99 09/12/24 09:07 FiO2 Intake & Output 09/11/24 09/12/24 09/12/24 18:59 06:59 18:59 Weight 77.564 kg - Labs CBC & Chem 7: 09/12/24 05:45 09/12/24 05:45 Labs: Abnormal Lab Results - Last 24 Hours (Table) 09/11/24 09/11/24 09/12/24 Range/Units 09:37 11:40 00:01 RBC (4.10-5.20) X 10*6/uL Hgb (12.0-15.0) g/dL Hct (37.2-46.3) % MCHC (32.0-37.0) g/dL RDW (11.5-14.5) % Immature Gran # (0.00-0.04) X 10*3/uL Sodium (135-145) mmol/L Chloride (96-109) mmol/L Anion Gap (4.00-12.00) mmol/L BUN (9.0-27.0) mg/dL BUN/Creatinine Ratio (12.00-20.00) Ratio POC Glucose (mg/dL) 66 L (70-110) mg/dL Osmolality 262 L (275-295) mOsm/kg Calcium (8.7-10.3) mg/dL TIBC (228-460) UG/DL Transferrin (204.0-354.0) mg/dL Ferritin (10.0-291.0) ng/mL Total Bilirubin (0.3-1.2) mg/dL ALT (8-44) U/L Total Protein (6.2-8.2) g/dL Albumin (3.8-4.9) g/dL Urine Appearance (Clear) Urine Glucose (UA) (Negative) Urine Blood (Negative) Ur Leukocyte Esterase (Negative) Urine RBC (0-5) /hpf Urine WBC (0-5) /hpf Urine Bacteria (None) /hpf Urine Mucus (None) /hpf Urine Yeast (Budding) (None) /hpf Urine Osmolality 194 L (400-1100) mOsm/kg Ur Random Sodium (40-220) mmol/L 09/12/24 09/12/24 09/12/24 Range/Units 00:01 00:01 05:45 RBC 2.47 L (4.10-5.20) X 10*6/uL Hgb 7.3 L (12.0-15.0) g/dL Hct 23.8 L (37.2-46.3) % MCHC 30.7 L (32.0-37.0) g/dL RDW 16.3 H (11.5-14.5) % Immature Gran # 0.05 H (0.00-0.04) X 10*3/uL Sodium (135-145) mmol/L Chloride (96-109) mmol/L Anion Gap (4.00-12.00) mmol/L BUN (9.0-27.0) mg/dL BUN/Creatinine Ratio (.00-.00) Ratio POC Glucose (mg/dL) (70-110) mg/dL Osmolality (275-295) mOsm/kg Calcium (8.7-10.3) mg/dL TIBC (228-460) UG/DL Transferrin (204.0-354.0) mg/dL Ferritin (10.0-291.0) ng/mL Total Bilirubin (0.3-1.2) mg/dL ALT (8-44) U/L Total Protein (6.2-8.2) g/dL Albumin (3.8-4.9) g/dL Urine Appearance Cloudy H (Clear) Urine Glucose (UA) 1+ H (Negative) Urine Blood Large H (Negative) Ur Leukocyte Esterase Large H (Negative) Urine RBC 13 H (0-5) /hpf Urine WBC 26 H (0-5) /hpf Urine Bacteria Occasional H (None) /hpf Urine Mucus Rare H (None) /hpf Urine Yeast (Budding) Few H (None) /hpf Urine Osmolality (400-1100) mOsm/kg Ur Random Sodium <20 L (40-220) mmol/L 09/12/24 09/12/24 Range/Units 05:45 09:45 RBC (4.10-5.20) X 10*6/uL Hgb (12.0-15.0) g/dL Hct (37.2-46.3) % MCHC (32.0-37.0) g/dL RDW (11.5-14.5) % Immature Gran # (0.00-0.04) X 10*3/uL Sodium 131 L (135-145) mmol/L Chloride 88 L (96-109) mmol/L Anion Gap 12.70 H (4.00-12.00) mmol/L BUN 32.9 H (9.0-27.0) mg/dL BUN/Creatinine Ratio 41.12 H (12.00-20.00) Ratio POC Glucose (mg/dL) 157 H (70-110) mg/dL Osmolality (275-295) mOsm/kg Calcium 7.7 L (8.7-10.3) mg/dL TIBC 185 L (228-460) UG/DL Transferrin 132.0 L (204.0-354.0) mg/dL Ferritin 885.0 H (10.0-291.0) ng/mL Total Bilirubin 0.2 L (0.3-1.2) mg/dL ALT 7 L (8-44) U/L Total Protein 5.2 L (6.2-8.2) g/dL Albumin 3.2 L (3.8-4.9) g/dL Urine Appearance (Clear) Urine Glucose (UA) (Negative) Urine Blood (Negative) Ur Leukocyte Esterase (Negative) Urine RBC (0-5) /hpf Urine WBC (0-5) /hpf Urine Bacteria (None) /hpf Urine Mucus (None) /hpf Urine Yeast (Budding) (None) /hpf Urine Osmolality (400-1100) mOsm/kg Ur Random Sodium (40-220) mmol/L
[2024-09-12 17:16] LABS: Glucose,Whole Blood 96 mg/dL (70-110)
[2024-09-12 20:41] LABS: Glucose,Whole Blood 115 mg/dL (70-110)
[2024-09-12] MEDS: NYSTATIN 100,000 UNIT/GM POWD 15 GM TOPICAL SCH (21:33)
[2024-09-13 07:14] LABS: Glucose,Whole Blood 96 mg/dL (70-110)
[2024-09-13 12:09] LABS: Glucose,Whole Blood 107 mg/dL (70-110)
--- NOTE | 2024-09-13 13:20 | P.PN ---
Subjective Progress Note Date: 09/13/24 patient 74-year-old lady with past medical history significant for COPD, diabetes mellitus, CHF who is currently a resident of a care home facility was brought to the ER for abdominal pain. Patient was recently in the hospital in August at which time she was treated for right heel ulcer and was discharged on antibiotics. Patient was all right couple of days back when She started complaining of constipation. Patient was given enema at the facility and following that she had multiple bouts of diarrhea. Patient also having abdominal pain. There is no complaint of shortness of breath. Patient denies any palpitation. There is no complaint of orthopnea or PND. Denies any nausea, vomiting . Patient denies any complaint of dizziness. There is no complaint of headache. Because of the symptoms, patient was sent to the ER Initial lab work done in the ER showed WBC 11.16, hemoglobin 7.1, platelet count 186, sodium 122, potassium 3.4, BUN 47, creatinine 1.04, glucose 62, calcium 9.5, X-ray KUB done showed nonspecific bowel gas pattern Patient admitted to internal medicine service 09/12. Patient seen and examined labs done showed WBC 9.29, hemoglobin 10.3, platelet count 182 sodium 131, potassium 4.1, BUN 32.9, creatinine 0.8 UA done showed large amount of leukocyte Estrace urine WBC 26. State she feels better. 09/13. Patient seen examined. No acute is overnight. Vital signs stable REVIEW OF SYSTEMS: CONSTITUTIONAL: No fever, no malaise,. CARDIOVASCULAR: No chest pain, no palpitations, no syncope. PULMONARY: No shortness of breath, no cough, GASTROINTESTINAL: No diarrhea, no nausea, no vomiting, no abdominal pain. NEUROLOGICAL: No headaches, no weakness, PHYSICAL EXAMINATION: GENERAL: The patient is alert and oriented x3, chronically ill looking HEENT: Pupils are round and equally reacting to light. EOMI. No scleral icterus. No conjunctival pallor. Normocephalic, atraumatic. No pharyngeal erythema. No thyromegaly. CARDIOVASCULAR: S1 and S2 present. No murmurs, rubs, or gallops. PULMONARY: Chest is clear to auscultation, no wheezing or crackles. ABDOMEN: Soft, nontender, nondistended, normoactive bowel sounds. No palpable organomegaly. MUSCULOSKELETAL: No joint swelling or deformity. EXTREMITIES: No cyanosis, clubbing, or pedal edema. NEUROLOGICAL: Gross neurological examination did not reveal any focal deficits. 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 Continue same treatment. Continue with symptomatic treatment. Resume home medication. Monitor labs and vitals. DVT and GI prophylaxis. Further recommendations as per clinical course of the patient Dictation was produced using [employer] dictation software. please excuse any grammatical, word or spelling errors. Objective - Vital Signs Vital signs: Vital Signs Temp 99.0 F 09/13/24 12:11 Pulse 79 09/13/24 12:11 Resp 16 09/13/24 12:11 BP 125/70 09/13/24 12:11 Pulse Ox 99 09/13/24 12:11 FiO2 Intake & Output 09/12/24 09/13/24 09/13/24 18:59 06:59 18:59 Intake Total 480 Balance 480 Weight 77.564 kg Intake: Oral 480 Other: Voiding Method Diaper Diaper Diaper Incontinent Incontinent Incontinent # Voids 1 2 # Bowel Movements 1 2 - Labs CBC & Chem 7: 09/12/24 05:45 09/13/24 11:31 Labs: Abnormal Lab Results - Last 24 Hours (Table) 09/12/24 09/13/24 Range/Units 20:26 11:31 Sodium 132 L (137-145) mmol/L POC Glucose (mg/dL) 115 H (70-110) mg/dL Microbiology - Last 24 Hours (Table) 09/12/24 00:01 Urine Culture - Final Urine,Voided
--- NOTE | 2024-09-13 13:56 | P.PN ---
Subjective Progress Note Date: 09/12/24 Principal diagnosis: Reason for follow-up is right foot infected ulcer and UTI Patient is a 74-year-old female with a past medical history significant for Heart Failure, COPD, Diabetes Mellitus, GERD/Reflux, Hyperlipidemia, Thyroid Disorder, also with a right heel diabetic foot ulcer infected with the patient has been on oral antibiotics recently debrided by transformer repairer on 08/30/2024 culture did grew Morganella and bacteroids, now presenting to the hospital with multiple symptoms including diarrhea and urinary symptoms On today's evaluation that is 09/12/2024,the patient denies any fever or any chills, patient is breathing comfortably on room air, the patient denies chest pain shortness of breath and no significant cough, patient denies abdominal pain, no nausea vomiting and diarrhea has slowed. Patient white count is down to 9.29, creatinine 0.8 UA is positive Objective - Vital Signs Vital signs: Vital Signs Temp 98.2 F 09/12/24 18:32 Pulse 82 09/12/24 18:32 Resp 18 09/12/24 18:32 BP 90/60 09/12/24 18:32 Pulse Ox 98 09/12/24 18:32 FiO2 Intake & Output 09/12/24 09/12/24 09/13/24 06:59 18:59 06:59 Weight 77.564 kg Other: Voiding Method Diaper Incontinent # Voids 1 # Bowel Movements 1 - Exam GENERAL DESCRIPTION: An elderly female lying in bed in no distress RESPIRATORY SYSTEM: Unlabored breathing , decreased breath sounds at bases HEART: S1 S2 regular rate and rhythm , ABDOMEN: Soft , no tenderness EXTREMITIES: Right foot wound is currently dressed - Labs CBC & Chem 7: 09/12/24 05:45 09/13/24 11:31 Labs: Abnormal Lab Results - Last 24 Hours (Table) 09/11/24 09/12/24 09/12/24 Range/Units 09:37 00:01 00:01 RBC (4.10-5.20) X 10*6/uL Hgb (12.0-15.0) g/dL Hct (37.2-46.3) % MCHC (32.0-37.0) g/dL RDW (11.5-14.5) % Immature Gran # (0.00-0.04) X 10*3/uL Sodium (135-145) mmol/L Chloride (96-109) mmol/L Anion Gap (4.00-12.00) mmol/L BUN (9.0-27.0) mg/dL BUN/Creatinine Ratio (12.00-20.00) Ratio POC Glucose (mg/dL) (70-110) mg/dL Osmolality 262 L (275-295) mOsm/kg Calcium (8.7-10.3) mg/dL TIBC (228-460) UG/DL Transferrin (204.0-354.0) mg/dL Ferritin (10.0-291.0) ng/mL Total Bilirubin (0.3-1.2) mg/dL ALT (8-44) U/L Total Protein (6.2-8.2) g/dL Albumin (3.8-4.9) g/dL Urine Appearance (Clear) Urine Glucose (UA) (Negative) Urine Blood (Negative) Ur Leukocyte Esterase (Negative) Urine RBC (0-5) /hpf Urine WBC (0-5) /hpf Urine Bacteria (None) /hpf Urine Mucus (None) /hpf Urine Yeast (Budding) (None) /hpf Urine Osmolality 194 L (400-1100) mOsm/kg Ur Random Sodium <20 L (40-220) mmol/L 09/12/24 09/12/24 09/12/24 Range/Units 00:01 05:45 05:45 RBC 2.47 L (4.10-5.20) X 10*6/uL Hgb 7.3 L (12.0-15.0) g/dL Hct 23.8 L (37.2-46.3) % MCHC 30.7 L (32.0-37.0) g/dL RDW 16.3 H (11.5-14.5) % Immature Gran # 0.05 H (0.00-0.04) X 10*3/uL Sodium 131 L (135-145) mmol/L Chloride 88 L (96-109) mmol/L Anion Gap 12.70 H (4.00-12.00) mmol/L BUN 32.9 H (9.0-27.0) mg/dL BUN/Creatinine Ratio 41.12 H (12.00-20.00) Ratio POC Glucose (mg/dL) (70-110) mg/dL Osmolality (275-295) mOsm/kg Calcium 7.7 L (8.7-10.3) mg/dL TIBC 185 L (228-460) UG/DL Transferrin 132.0 L (204.0-354.0) mg/dL Ferritin 885.0 H (10.0-291.0) ng/mL Total Bilirubin 0.2 L (0.3-1.2) mg/dL ALT 7 L (8-44) U/L Total Protein 5.2 L (6.2-8.2) g/dL Albumin 3.2 L (3.8-4.9) g/dL Urine Appearance Cloudy H (Clear) Urine Glucose (UA) 1+ H (Negative) Urine Blood Large H (Negative) Ur Leukocyte Esterase Large H (Negative) Urine RBC 13 H (0-5) /hpf Urine WBC 26 H (0-5) /hpf Urine Bacteria Occasional H (None) /hpf Urine Mucus Rare H (None) /hpf Urine Yeast (Budding) Few H (None) /hpf Urine Osmolality (400-1100) mOsm/kg Ur Random Sodium (40-220) mmol/L 09/12/24 09/12/24 Range/Units 09:45 12:03 RBC (4.10-5.20) X 10*6/uL Hgb (12.0-15.0) g/dL Hct (37.2-46.3) % MCHC (32.0-37.0) g/dL RDW (11.5-14.5) % Immature Gran # (0.00-0.04) X 10*3/uL Sodium (135-145) mmol/L Chloride (96-109) mmol/L Anion Gap (4.00-12.00) mmol/L BUN (9.0-27.0) mg/dL BUN/Creatinine Ratio (12.00-20.00) Ratio POC Glucose (mg/dL) 157 H 138 H (70-110) mg/dL Osmolality (275-295) mOsm/kg Calcium (8.7-10.3) mg/dL TIBC (228-460) UG/DL Transferrin (204.0-354.0) mg/dL Ferritin (10.0-291.0) ng/mL Total Bilirubin (0.3-1.2) mg/dL ALT (8-44) U/L Total Protein (6.2-8.2) g/dL Albumin (3.8-4.9) g/dL Urine Appearance (Clear) Urine Glucose (UA) (Negative) Urine Blood (Negative) Ur Leukocyte Esterase (Negative) Urine RBC (0-5) /hpf Urine WBC (0-5) /hpf Urine Bacteria (None) /hpf Urine Mucus (None) /hpf Urine Yeast (Budding) (None) /hpf Urine Osmolality (400-1100) mOsm/kg Ur Random Sodium (40-220) mmol/L Assessment and Plan (1) Diarrhea Current Visit: Yes Status: Acute Code(s): R19.7 - DIARRHEA, UNSPECIFIED SNOMED Code(s): 73368675 (2) Leukocytosis Current Visit: Yes Status: Acute Code(s): D72.829 - ELEVATED WHITE BLOOD CELL COUNT, UNSPECIFIED SNOMED Code(s): 366551195 (3) Type 2 diabetes mellitus with foot ulcer Current Visit: No Status: Acute Code(s): E11.621 - TYPE 2 DIABETES MELLITUS WITH FOOT ULCER; L97.509 - NON-PRESSURE CHRONIC ULCER OTH PRT UNSP FOOT W UNSP SEVERITY SNOMED Code(s): 6663682123972 Plan: 1patient presented hospital abdominal pain diarrhea and this patient has been e xposed antibiotic in recent past however stool for C. difficile is negative could be drug-induced as the patient did receive enema prior to that 2patient with a right heel diabetic foot ulcer and wound infection with recent debridement in the outpatient setting by podiatry on 08/30/2024 which did grew Morganella and bacteroids not very clear the patient has received antibiotic for the same or not. 3patient with mild elevated white count and urinary symptoms of burning, UA has been positive cultures currently pending 4patient white count normalized to continue Rocephin 2 g daily and Flagyl 500 mg p.o. 3 times daily while waiting for the workup to be completed Dictation was produced using [employer] dictation software. please excuse any grammatical, word or spelling errors. Time with Patient: Less than 30
--- NOTE | 2024-09-13 13:57 | P.PN ---
Subjective Progress Note Date: 09/13/24 Principal diagnosis: Reason for follow-up is right foot infected ulcer and UTI Patient is a 74-year-old female with a past medical history significant for Heart Failure, COPD, Diabetes Mellitus, GERD/Reflux, Hyperlipidemia, Thyroid Disorder, also with a right heel diabetic foot ulcer infected with the patient has been on oral antibiotics recently debrided by gear machine operator on 08/30/2024 culture did grew Morganella and bacteroids, now presenting to the hospital with multiple symptoms including diarrhea and urinary symptoms On today's evaluation that is 09/13/2024,the patient remains to be afebrile, patient is on room air not requiring supplemental oxygen and denies any shortness of breath no chest pain or cough.Patient denies having any nausea or vomiting, no abdominal pain and still having some diarrhea but no worsening. No new lab has been obtained today urine cultures currently pending Objective - Vital Signs Vital signs: Vital Signs Temp 99.0 F 09/13/24 12:11 Pulse 79 09/13/24 12:11 Resp 16 09/13/24 12:11 BP 125/70 09/13/24 12:11 Pulse Ox 99 09/13/24 12:11 FiO2 Intake & Output 09/12/24 09/13/24 09/13/24 18:59 06:59 18:59 Intake Total 480 Balance 480 Weight 77.564 kg Intake: Oral 480 Other: Voiding Method Diaper Diaper Diaper Incontinent Incontinent Incontinent # Voids 1 2 # Bowel Movements 1 2 - Exam GENERAL DESCRIPTION: An elderly female lying in bed in no distress RESPIRATORY SYSTEM: Unlabored breathing , decreased breath sounds at bases HEART: S1 S2 regular rate and rhythm , ABDOMEN: Soft , no tenderness EXTREMITIES: Right foot wound Has decreased in size no drainage - Labs CBC & Chem 7: 09/12/24 05:45 09/13/24 11:31 Labs: Abnormal Lab Results - Last 24 Hours (Table) 09/12/24 09/13/24 Range/Units 20:26 11:31 Sodium 132 L (137-145) mmol/L POC Glucose (mg/dL) 115 H (70-110) mg/dL Microbiology - Last 24 Hours (Table) 09/12/24 00:01 Urine Culture - Final Urine,Voided Assessment and Plan (1) Diarrhea Current Visit: Yes Status: Acute Code(s): R19.7 - DIARRHEA, UNSPECIFIED SNOMED Code(s): 40917774 (2) Leukocytosis Current Visit: Yes Status: Acute Code(s): D72.829 - ELEVATED WHITE BLOOD C ELL COUNT, UNSPECIFIED SNOMED Code(s): 085119764 (3) Type 2 diabetes mellitus with foot ulcer Current Visit: No Status: Acute Code(s): E11.621 - TYPE 2 DIABETES MELLITUS WITH FOOT ULCER; L97.509 - NON-PRESSURE CHRONIC ULCER OTH PRT UNSP FOOT W UNSP SEVERITY SNOMED Code(s): 1531369150548 Plan: 1patient presented hospital abdominal pain diarrhea and this patient has been exposed antibiotic in recent past however stool for C. difficile is negative could be drug-induced as the patient did receive enema prior to that 2patient with a right heel diabetic foot ulcer and wound infection with recent debridement in the outpatient setting by podiatry on 08/30/2024 which did grew Morganella and bacteroids not very clear the patient has received antibiotic for the same or not. 3patient with mild elevated white count and urinary symptoms of burning, UA has been positive cultures currently pending 4patient white count normalized, patient is currently being treated Rocephin 2 g daily and Flagyl 500 mg p.o. 3 times daily and hopefully transition to oral antibiotics on discharge Dictation was produced using [employer] dictation software. please excuse any grammatical, word or spelling errors. Time with Patient: Less than 30
[2024-09-13 14:30] VITALS: BMI 30.2
[2024-09-13 17:17] LABS: Glucose,Whole Blood 105 mg/dL (70-110)
--- NOTE | 2024-09-13 18:42 | P.PN ---
Subjective Patient is seen for follow-up for hyponatremia. Sodium 132 today No significant complaints. Tolerating oral intake. Objective - Vital Signs Vital signs: Vital Signs Temp 99.0 F 09/13/24 12:11 Pulse 79 09/13/24 12:11 Resp 16 09/13/24 12:11 BP 125/70 09/13/24 12:11 Pulse Ox 99 09/13/24 12:11 FiO2 Intake & Output 09/12/24 09/13/24 09/13/24 18:59 06:59 18:59 Intake Total 1920 Balance 192 Weight 77.564 kg 77.564 kg Intake: Oral 1919 Other: Voiding Method Diaper Diaper Diaper Incontinent Incontinent Incontinent # Voids 1 2 4 # Bowel Movements 1 2 1 - Exam Patient is comfortable awake no acute distress Examination of the heart S1 and S2 Examination of the lungs bilateral breath sounds are heard Abdomen is soft nontender Examination of lower extremities shows no significant edema STUDIO PRODUCER exam grossly intact - Labs CBC & Chem 7: 09/12/24 05:45 09/13/24 11:31 Labs: Abnormal Lab Results - Last 24 Hours (Table) 09/12/24 09/12/24 09/13/24 Range/Units 05:45 20:26 11:31 Sodium 132 L (137-145) mmol/L POC Glucose (mg/dL) 115 H (70-110) mg/dL RBC Folate 1,069 H (280 - 791) ng/mL Microbiology - Last 24 Hours (Table) 09/12/24 00:01 Urine Culture - Final Urine,Voided Assessment and Plan Assessment: 1. Hypovolemic hyponatremia secondary to significant diarrhea, improved with normal saline administration. 2. Chronic lower extremity ulcers, mostly on the right heel, status post recent antibiotics 3. Chronic lower extremity edema maintained on Bumex 4. Anemia with no active bleeding noted. Hemoglobin has been staying between 7 to 8 g/dL for about 1 month now Plan: Repeat labs in a.m. Encouraged increased oral intake.
[2024-09-13 20:09] LABS: Glucose,Whole Blood 130 mg/dL (70-110)
[2024-09-14 07:10] LABS: Glucose,Whole Blood 108 mg/dL (70-110)
[2024-09-14 12:16] LABS: Glucose,Whole Blood 136 mg/dL (70-110)
--- NOTE | 2024-09-14 12:36 | P.PN ---
Subjective Progress Note Date: 09/14/24 patient 74-year-old lady with past medical history significant for COPD, diabetes mellitus, CHF who is currently a resident of a [facility] facility was brought to the ER for abdominal pain. Patient was recently in the hospital in August at which time she was treated for right heel ulcer and was discharged on antibiotics. Patient was all right couple of days back when She started complaining of constipation. Patient was given enema at the facility and following that she had multiple bouts of diarrhea. Patient also having abdominal pain. There is no complaint of shortness of breath. Patient denies any palpitation. There is no complaint of orthopnea or PND. Denies any nausea, vomiting . Patient denies any complaint of dizziness. There is no complaint of headache. Because of the symptoms, patient was sent to the ER Initial lab work done in the ER showed WBC 11.16, hemoglobin 7.1, platelet count 186, sodium 122, potassium 3.4, BUN 47, creatinine 1.04, glucose 62, calcium 9.5, X-ray KUB done showed nonspecific bowel gas pattern Patient admitted to internal medicine service 09/12. Patient seen and examined labs done showed WBC 9.29, hemoglobin 10.3, platelet count 182 sodium 131, potassium 4.1, BUN 32.9, creatinine 0.8 UA done showed large amount of leukocyte Estrace urine WBC 26. State she feels better. 09/13. Patient seen examined. No acute is overnight. Vital signs stable 09/14. Patient is examined. Still complains of lethargy and weakness. Continues to be afebrile. REVIEW OF SYSTEMS: CONSTITUTIONAL: No fever, no malaise,. CARDIOVASCULAR: No chest pain, no palpitations, no syncope. PULMONARY: No shortness of breath, no cough, GASTROINTESTINAL: No diarrhea, no nausea, no vomiting, no abdominal pain. NEUROLOGICAL: No headaches, no weakness, PHYSICAL EXAMINATION: GENERAL: The patient is alert and oriented x3, chronically ill looking HEENT: Pupils are round and equally reacting to light. EOMI. No scleral icterus. No conjunctival pallor. Normocephalic, atraumatic. No pharyngeal erythema. No thyromegaly. CARDIOVASCULAR: S1 and S2 present. No murmurs, rubs, or gallops. PULMONARY: Chest is clear to auscultation, no wheezing or crackles. ABDOMEN: Soft, nontender, nondistended, normoactive bowel sounds. No palpable organomegaly. MUSCULOSKELETAL: No joint swelling or deformity. EXTREMITIES: No cyanosis, clubbing, or pedal edema. NEUROLOGICAL: Gross neurological examination did not reveal any focal deficits. 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 Continue same treatment. Continue with sym ptomatic treatment. Resume home medication. Monitor labs and vitals. DVT and GI prophylaxis. Further recommendations as per clinical course of the patient Dictation was produced using [employer] dictation software. please excuse any grammatical, word or spelling errors. Objective - Vital Signs Vital signs: Vital Signs Temp 98.1 F 09/14/24 07:43 Pulse 86 09/14/24 07:43 Resp 18 09/14/24 07:43 BP 114/54 09/14/24 07:43 Pulse Ox 99 09/14/24 09:02 FiO2 Intake & Output 09/13/24 09/14/24 09/14/24 18:59 06:59 18:59 Intake Total 2400 Balance 2400 Weight 77.564 kg Intake: Oral 2400 Other: Voiding Method Diaper Diaper Diaper Incontinent Incontinent Incontinent # Voids 4 1 # Bowel Movements 1 1 - Labs CBC & Chem 7: 09/12/24 05:45 09/13/24 11:31 Labs: Abnormal Lab Results - Last 24 Hours (Table) 09/12/24 09/13/24 09/14/24 Range/Units 05:45 20:08 12:00 POC Glucose (mg/dL) 130 H 136 H (70-110) mg/dL RBC Folate 1,069 H (280 - 791) ng/mL Microbiology - Last 24 Hours (Table) 09/12/24 00:01 Urine Culture - Final Urine,Voided
--- NOTE | 2024-09-14 15:03 | P.PN ---
Subjective Progress Note Date: 09/14/24 Principal diagnosis: Reason for follow-up is right foot infected ulcer and UTI Patient is a 74-year-old female with a past medical history significant for Heart Failure, COPD, Diabetes Mellitus, GERD/Reflux, Hyperlipidemia, Thyroid Disorder, also with a right heel diabetic foot ulcer infected with the patient has been on oral antibiotics recently debrided by carburetor specialist on 08/30/2024 culture did grew Morganella and bacteroids, now presenting to the hospital with multiple symptoms including diarrhea and urinary symptoms On today's evaluation that is 09/14/2024, the patient continues to be afebrile, the patient is on room air and breathing comfortably, the Pt denies having any chest pain or cough, the patient denies having any abdominal pain no vomiting and mention diarrhea has improved and has been to the right foot area. No new lab has been obtained today urine culture has been negative Objective - Vital Signs Vital signs: Vital Signs Temp 98.1 F 09/14/24 07:43 Pulse 86 09/14/24 07:43 Resp 18 09/14/24 07:43 BP 114/54 09/14/24 07:43 Pulse Ox 99 09/14/24 09:02 FiO2 Intake & Output 09/13/24 09/14/24 09/14/24 18:59 06:59 18:59 Intake Total 2400 Balance 2400 Weight 77.564 kg Intake: Oral 2400 Other: Voiding Method Diaper Diaper Diaper Incontinent Incontinent Incontinent # Voids 4 1 # Bowel Movements 1 1 - Exam GENERAL DESCRIPTION: An elderly female lying in bed in no distress RESPIRATORY SYSTEM: Unlabored breathing , decreased breath sounds at bases HEART: S1 S2 regular rate and rhythm , ABDOMEN: Soft , no tenderness EXTREMITIES: Right foot wound currently dressed - Labs CBC & Chem 7: 09/12/24 05:45 09/13/24 11:31 Labs: Abnormal Lab Results - Last 24 Hours (Table) 09/12/24 09/13/24 09/14/24 Range/Units 05:45 20:08 12:00 POC Glucose (mg/dL) 130 H 136 H (70-110) mg/dL RBC Folate 1,069 H (280 - 791) ng/mL Microbiology - Last 24 Hours (Table) 09/12/24 00:01 Urine Culture - Final Urine,Voided Assessment and Plan (1) Diarrhea Current Visit: Yes Status: Acute Code(s): R19.7 - DIARRHEA, UNSPECIFIED SNOMED Code(s): 12721600 (2) Leukocytosis Current Visit: Yes Status: Acute Code(s): D72.829 - ELEVATED WHITE BLOOD CELL COUNT, UNSPECIFIED SNOMED Code(s): 806164611 (3) Type 2 diabetes mellitus with foot ulcer Current Visit: No Status: Acute Code(s): E11.621 - TYPE 2 DIABETES MELLITUS WITH FOOT ULCER; L97.509 - NON-PRESSURE CHRONIC ULCER OTH PRT UNSP FOOT W UNSP SEVERITY SNOMED Code(s): 6252895409925 Plan: 1patient presented hospital abdominal pain diarrhea and this patient has been exposed antibiotic in recent past however stool for C. difficile is negative could be drug-induced as the patient did receive enema prior to that 2patient with a right heel diabetic foot ulcer and wound infection with recent debridement in the outpatient setting by podiatry on 08/30/2024 which did grew Morganella and bacteroids not very clear the patient has received antibiotic for the same or not. 3patient with mild elevated white count and urinary symptoms of burning, UA has been positive, however culture has been negative 4patient white count normalized, 5patient is currently being treated Rocephin 2 g daily and Flagyl 500 mg p.o. 3 times daily with plan to finish therapy with oral Ceftin and Flagyl on discharge Dictation was produced using [employer] dictation software. please excuse any grammatical, word or spelling errors. Time with Patient: Less than 30
[2024-09-14 17:07] LABS: Glucose,Whole Blood 188 mg/dL (70-110)
[2024-09-14 20:16] LABS: Glucose,Whole Blood 229 mg/dL (70-110)
[2024-09-15 07:29] LABS: Glucose,Whole Blood 117 mg/dL (70-110)
[2024-09-15 07:44] LABS: ALT 8 U/L (4-34); AST 17 U/L (14-36); African American GFR (CKD) >90 (>60 ml/min/1.73 sqM); Albumin 2.8 g/dL (3.5-5.0); Albumin/Globulin Ratio 1.2; Alkaline Phosphatase 86 U/L (38-126); Anion Gap 3 mmol/L; Blood Urea Nitrogen 20 mg/dL (7-17); Calcium 8.6 mg/dL (8.4-10.2); Carbon Dioxide 37 mmol/L (22-30); Chloride 95 mmol/L (98-107); Globulin 2.4 g/dL; Glucose 100 mg/dL (74-99); Non-African American GFR(CKD) 80 (>60 ml/min/1.73 sqM); Potassium 3.7 mmol/L (3.5-5.1); Sodium 135 mmol/L (137-145); Total Bilirubin 0.3 mg/dL (0.2-1.3); Total Protein 5.2 g/dL (6.3-8.2)
[2024-09-15 07:52] LABS: Basophils # (A) 0.03 10*3/uL (0.00-0.10); Basophils % (A) 0.5 %; Eosinophils % (A) 1.7 %; HCT 22.7 % (37.2-46.3); HGB 6.9 g/dL (12.0-15.0); Immature Platelet Fraction 2.1 % (1.1-6.1); Lymphocytes # (A) 1.03 10*3/uL (0.90-5.00); Lymphocytes % (A) 17.7 %; MCH 30.3 pg (27.0-32.0); MCHC 30.4 g/dL (32.0-37.0); Mean Platelet Volume 10.9 fL (9.5-12.2); Monocytes # (A) 0.43 10*3/uL (0.20-1.00); Monocytes % (A) 7.4 %; Neutrophils # (A) 4.21 10*3/uL (1.80-7.70); Neutrophils % (A) 72.2 %; Platelet Count 146 10*3/uL (140-440); RBC 2.28 10*6/uL (4.10-5.20); RDW 16.5 % (11.5-14.5); WBC 5.83 10*3/uL (4.50-10.00)
[2024-09-15 07:53] LABS: MCV 99.6 fL (80.0-97.0)
[2024-09-15 12:12] LABS: Glucose,Whole Blood 112 mg/dL (70-110)
--- NOTE | 2024-09-15 13:25 | P.PN ---
Subjective Patient is seen for follow-up for hyponatremia. Sodium 135 today No significant complaints. Tolerating oral intake. Objective - Vital Signs Vital signs: Vital Signs Temp 98.2 F 09/15/24 12:12 Pulse 68 09/15/24 12:12 Resp 20 09/15/24 12:12 BP 91/57 09/15/24 12:12 Pulse Ox 100 09/15/24 12:12 FiO2 Intake & Output 09/14/24 09/15/24 09/15/24 18:59 06:59 18:59 Intake Total 2040 540 480 Output Total 200 Balance 2040 340 480 Intake: Oral 2040 540 480 Output: Urine 200 Other: Voiding Method Diaper Diaper Diaper Incontinent Incontinent Incontinent External Catheter External Catheter # Voids 5 # Bowel Movements 1 - Exam Patient is comfortable awake no acute distress Examination of the heart S1 and S2 Examination of the lungs bilateral breath sounds are heard Abdomen is soft nontender Examination of lower extremities shows no significant edema [employer] exam grossly intact - Labs CBC & Chem 7: 09/15/24 07:00 09/15/24 07:00 Labs: Abnormal Lab Results - Last 24 Hours (Table) 09/14/24 09/14/24 09/15/24 Range/Units 17:06 20:15 07:00 RBC 2.28 L (4.10-5.20) 10*6/uL Hgb 6.9 L* (12.0-15.0) g/dL Hct 22.7 L (37.2-46.3) % MCV 99.6 H D (80.0-97.0) fL MCHC 30.4 L (32.0-37.0) g/dL RDW 16.5 H (11.5-14.5) % Sodium (137-145) mmol/L Chloride (98-107) mmol/L Carbon Dioxide (22-30) mmol/L BUN (7-17) mg/dL Glucose (74-99) mg/dL POC Glucose (mg/dL) 188 H 229 H (70-110) mg/dL Total Protein (6.3-8.2) g/dL Albumin (3.5-5.0) g/dL 09/15/24 09/15/24 09/15/24 Range/Units 07:00 07:27 12:11 RBC (4.10-5.20) 10*6/uL Hgb (12.0-15.0) g/dL Hct (37.2-46.3) % MCV (80.0-97.0) fL MCHC (32.0-37.0) g/dL RDW (11.5-14.5) % Sodium 135 L (137-145) mmol/L Chloride 95 L (98-107) mmol/L Carbon Dioxide 37 H (22-30) mmol/L BUN 20 H (7-17) mg/dL Glucose 100 H (74-99) mg/dL POC Glucose (mg/dL) 117 H 112 H (70-110) mg/dL Total Protein 5.2 L (6.3-8.2) g/dL Albumin 2.8 L (3.5-5.0) g/dL Assessment and Plan Assessment: 1. Hypovolemic hyponatremia secondary to significant diarrhea, improved with normal saline administration. 2. Chronic lower extremity ulcers, mostly on the right heel, status post recent antibiotics 3. Chronic lower extremity edema maintained on Bumex 4. Anemia with no active bleeding noted. Hemoglobin has been staying between 7 to 8 g/dL for about 1 month now Plan: Repeat labs in a.m. Encouraged increased oral intake. Currently off of IV fluids
[2024-09-15 17:16] LABS: Glucose,Whole Blood 107 mg/dL (70-110)
--- NOTE | 2024-09-15 19:27 | P.PN ---
Subjective Progress Note Date: 09/15/24 74-year-old lady with past medical history significant for COPD, diabetes mellitus, CHF who is currently a resident of a shelter facility was brought to the ER for abdominal pain. Patient was recently in the hospital in August at which time she was treated for right heel ulcer and was discharged on ant ibiotics. Patient was all right couple of days back when She started complaining of constipation. Patient was given enema at the facility and following that she had multiple bouts of diarrhea. Patient also having abdominal pain. There is no complaint of shortness of breath. Patient denies any palpitation. There is no complaint of orthopnea or PND. Denies any nausea, vomiting . Patient denies any complaint of dizziness. There is no complaint of headache. Because of the symptoms, patient was sent to the ER Initial lab work done in the ER showed WBC 11.16, hemoglobin 7.1, platelet count 186, sodium 122, potassium 3.4, BUN 47, creatinine 1.04, glucose 62, calcium 9.5, X-ray KUB done showed nonspecific bowel gas pattern Patient admitted to internal medicine service Objective - Vital Signs Vital signs: Vital Signs Temp 97.9 F 09/15/24 07:29 Pulse 80 09/15/24 07:29 Resp 16 09/15/24 07:29 BP 113/73 09/15/24 07:29 Pulse Ox 98 09/15/24 07:54 FiO2 Intake & Output 09/14/24 09/15/24 09/15/24 18:59 06:59 18:59 Intake Total 2040 540 480 Output Total 200 Balance 2040 340 480 Intake: Oral 2040 540 480 Output: Urine 200 Other: Voiding Method Diaper Diaper Incontinent Incontinent External Catheter # Voids 5 # Bowel Movements 1 - Exam GENERAL: The patient is alert and oriented x3, chronically ill looking HEENT: Pupils are round and equally reacting to light. EOMI. No scleral icterus. No conjunctival pallor. Normocephalic, atraumatic. No pharyngeal erythema. No thyromegaly. CARDIOVASCULAR: S1 and S2 present. No murmurs, rubs, or gallops. PULMONARY: Chest is clear to auscultation, no wheezing or crackles. ABDOMEN: Soft, nontender, nondistended, normoactive bowel sounds. No palpable o rganomegaly. MUSCULOSKELETAL: No joint swelling or deformity. EXTREMITIES: No cyanosis, clubbing, or pedal edema. NEUROLOGICAL: Gross neurological examination did not reveal any focal deficits. SKIN: Right heel ulcer - Labs CBC & Chem 7: 09/15/24 07:00 09/15/24 07:00 Labs: Abnormal Lab Results - Last 24 Hours (Table) 09/14/24 09/14/24 09/15/24 Range/Units 17:06 20:15 07:00 RBC 2.28 L (4.10-5.20) 10*6/uL Hgb 6.9 L* (12.0-15.0) g/dL Hct 22.7 L (37.2-46.3) % MCV 99.6 H D (80.0-97.0) fL MCHC 30.4 L (32.0-37.0) g/dL RDW 16.5 H (11.5-14.5) % Sodium (137-145) mmol/L Chloride (98-107) mmol/L Carbon Dioxide (22-30) mmol/L BUN (7-17) mg/dL Glucose (74-99) mg/dL POC Glucose (mg/dL) 188 H 229 H (70-110) mg/dL Total Protein (6.3-8.2) g/dL Albumin (3.5-5.0) g/dL 09/15/24 09/15/24 09/15/24 Range/Units 07:00 07:27 12:11 RBC (4.10-5.20) 10*6/uL Hgb (12.0-15.0) g/dL Hct (37.2-46.3) % MCV (80.0-97.0) fL MCHC (32.0-37.0) g/dL RDW (11.5-14.5) % Sodium 135 L (137-145) mmol/L Chloride 95 L (98-107) mmol/L Carbon Dioxide 37 H (22-30) mmol/L BUN 20 H (7-17) mg/dL Glucose 100 H (74-99) mg/dL POC Glucose (mg/dL) 117 H 112 H (70-110) mg/dL Total Protein 5.2 L (6.3-8.2) g/dL Albumin 2.8 L (3.5-5.0) g/dL Assessment and Plan Assessment: Hyponatremia Hypokalemia UTI Anemia of chronic disease Stage II pressure ulcer of left buttock Stage II pressure ulcer of right buttock Stage III pressure ulcer of right heel Chronic venous insufficiency and venous status dermatitis Chronic CHF diastolic dysfunction with severe pulmonary hypertension -Right lung lesion, PET scan done showed 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 Continue same treatment. Continue with symptomatic treatment. Resume home medication. Monitor labs and vitals. DVT and GI prophylaxis. Further recommendations as per clinical course of the patient
[2024-09-15 20:34] LABS: Glucose,Whole Blood 167 mg/dL (70-110)
[2024-09-15 20:55] LABS: Basophils # (A) 0.03 10*3/uL (0.00-0.10); Basophils % (A) 0.5 %; Eosinophils # (A) 0.11 10*3/uL (0.04-0.35); Eosinophils % (A) 1.8 %; HCT 23.6 % (37.2-46.3); HGB 7.1 g/dL (12.0-15.0); Lymphocytes # (A) 1.38 10*3/uL (0.90-5.00); Lymphocytes % (A) 22.6 %; MCH 30.3 pg (27.0-32.0); MCHC 30.1 g/dL (32.0-37.0); MCV 100.9 fL (80.0-97.0); Mean Platelet Volume 10.3 fL (9.5-12.2); Monocytes # (A) 0.47 10*3/uL (0.20-1.00); Monocytes % (A) 7.7 %; Neutrophils # (A) 4.08 10*3/uL (1.80-7.70); Neutrophils % (A) 66.9 %; Platelet Count 146 10*3/uL (140-440); RBC 2.34 10*6/uL (4.10-5.20); RDW 16.5 % (11.5-14.5)
[2024-09-16 07:43] LABS: Glucose,Whole Blood 73 mg/dL (70-110)
[2024-09-16 09:19] LABS: Blood Urea Nitrogen 15.3 mg/dL (9.0-27.0); Calcium 8.5 mg/dL (8.7-10.3); Chloride 96 mmol/L (96-109); Glucose 59 mg/dL (70-110); Potassium 3.8 mmol/L (3.5-5.5); Sodium 138 mmol/L (135-145)
[2024-09-16 10:00] LABS: Basophils # (A) 0.03 X 10*3/uL (0.00-0.10); Basophils % (A) 0.5 %; Eosinophils # (A) 0.13 X 10*3/uL (0.04-0.35); Eosinophils % (A) 2.2 %; HGB 7.1 g/dL (12.0-15.0); Lymphocytes # (A) 1.26 X 10*3/uL (0.90-5.00); Lymphocytes % (A) 21.3 %; MCH 29.8 pg (27.0-32.0); MCHC 29.6 g/dL (32.0-37.0); MCV 100.8 FL (80.0-97.0); Mean Platelet Volume 10.8 FL (9.5-12.2); Monocytes % (A) 8.5 %; NRBC Per 100 WBC 0 X 10*3/uL (0.00-0.01); Neutrophils # (A) 3.96 X 10*3/uL (1.80-7.70); Platelet Count 155 X 10*3/uL (140-440); RBC 2.38 X 10*6/uL (4.10-5.20); RDW 16.6 % (11.5-14.5); WBC 5.91 X 10*3/uL (4.50-10.00)
[2024-09-16 12:48] LABS: Glucose,Whole Blood 69 mg/dL (70-110)
[2024-09-16 13:09] LABS: Glucose,Whole Blood 68 mg/dL (70-110)
[2024-09-16 13:32] LABS: Glucose,Whole Blood 104 mg/dL (70-110)
--- NOTE | 2024-09-16 17:37 | P.PN ---
Subjective Progress Note Date: 09/16/24 Principal diagnosis: Reason for follow-up is right foot infected ulcer and UTI Patient is a 74-year-old female with a past medical history significant for Heart Failure, COPD, Diabetes Mellitus, GERD/Reflux, Hyperlipidemia, Thyroid Disorder, also with a right heel diabetic foot ulcer infected with the patient has been on oral antibiotics recently debrided by [facility] service worker hospital on 08/30/2024 culture did grew Morganella and bacteroids, now presenting to the hospital with multiple symptoms including diarrhea and urinary symptoms On today's evaluation that is 09/16/2023, patient did have a temperature of 98 F this morning and denies having any chills, patient is on 3 L nasal cannula oxygen and breathing comfortably no chest pain or cough, the patient did not have any nausea vomiting abdominal pain or any diarrhea Patient was on a 6.10 creatinine 0.75 Objective - Vital Signs Vital signs: Vital Signs Temp 98.2 F 09/15/24 12:12 Pulse 68 09/15/24 12:12 Resp 20 09/15/24 12:12 BP 91/57 09/15/24 12:12 Pulse Ox 100 09/15/24 12:12 FiO2 Intake & Output 09/14/24 09/15/24 09/15/24 18:59 06:59 18:59 Intake Total 2040 540 480 Output Total 200 Balance 2040 340 480 Intake: Oral 2040 540 480 Output: Urine 200 Other: Voiding Method Diaper Diaper Diaper Incontinent Incontinent Incontinent External Catheter External Catheter # Voids 5 # Bowel Movements 1 - Exam GENERAL DESCRIPTION: An elderly female lying in bed in no distress RESPIRATORY SYSTEM: Unlabored breathing , decreased breath sounds at bases HEART: S1 S2 regular rate and rhythm , ABDOMEN: Soft , no tenderness EXTREMITIES: Right foot wound currently dressed - Labs CBC & Chem 7: 09/16/24 04:06 09/16/24 04:06 Labs: Abnormal Lab Results - Last 24 Hours (Table) 09/14/24 09/14/24 09/15/24 Range/Units 17:06 20:15 07:00 RBC 2.28 L (4.10-5.20) 10*6/uL Hgb 6.9 L* (12.0-15.0) g/dL Hct 22.7 L (37.2-46.3) % MCV 99.6 H D (80.0-97.0) fL MCHC 30.4 L (32.0-37.0) g/dL RDW 16.5 H (11.5-14.5) % Sodium (137-145) mmol/L Chloride (98-107) mmol/L Carbon Dioxide (22-30) mmol/L BUN (7-17) mg/dL Glucose (74-99) mg/dL POC Glucose (mg/dL) 188 H 229 H (70-110) mg/dL Total Protein (6.3-8.2) g/dL Albumin (3.5-5.0) g/dL 09/15/24 09/15/24 09/15/24 Range/Units 07:00 07:27 12:11 RBC (4.10-5.20) 10*6/uL Hgb (12.0-15.0) g/dL Hct (37.2-46.3) % MCV (80.0-97.0) fL MCHC (32.0-37.0) g/dL RDW (11.5-14.5) % Sodium 135 L (137-145) mmol/L Chloride 95 L (98-107) mmol/L Carbon Dioxide 37 H (22-30) mmol/L BUN 20 H (7-17) mg/dL Glucose 100 H (74-99) mg/dL POC Glucose (mg/dL) 117 H 112 H (70-110) mg/dL Total Protein 5.2 L (6.3-8.2) g/dL Albumin 2.8 L (3.5-5.0) g/dL Assessment and Plan (1) Diarrhea Current Visit: Yes Status: Acute Code(s): R19.7 - DIARRHEA, UNSPECIFIED SNOMED Code(s): 50728304 (2) Leukocytosis Current Visit: Yes Status: Acute Code(s): D72.829 - ELEVATED WHITE BLOOD CELL COUNT, UNSPECIFIED SNOMED Code(s): 289510169 (3) Type 2 diabetes mellitus with foot ulcer Current Visit: No Status: Acute Code(s): E11.621 - TYPE 2 DIABETES MELLITUS WITH FOOT ULCER; L97.509 - NON-PRESSURE CHRONIC ULCER OTH PRT UNSP FOOT W UNSP SEVERITY SNOMED Code(s): 7914079786453 Plan: 1patient presented hospital abdominal pain diarrhea and this patient has been exposed antibiotic in recent past however stool for C. difficile is negative could be drug-induced as the patient did receive enema prior to that 2patient with a right heel diabetic foot ulcer and wound infection with recent debridement in the outpatient setting by podiatry on 08/30/2024 which did grew Morganella and bacteroids not very clear the patient has received antibiotic for the same or not. 3patient with mild elevated white count and urinary symptoms of burning, UA has been positive, however culture has been negative 4patient white count normalized,, patient to continue with the Rocephin 2 g daily and Flagyl while in patient Dictation was produced using [employer] dictation software. please excuse any grammatical, word or spelling errors. Time with Patient: Less than 30
--- NOTE | 2024-09-16 17:38 | P.PN ---
Subjective Progress Note Date: 09/16/24 Principal diagnosis: Reason for follow-up is right foot infected ulcer and UTI Patient is a 74-year-old female with a past medical history significant for Heart Failure, COPD, Diabetes Mellitus, GERD/Reflux, Hyperlipidemia, Thyroid Disorder, also with a right heel diabetic foot ulcer infected with the patient has been on oral antibiotics recently debrided by gas systems worker on 08/30/2024 culture did grew Morganella and bacteroids, now presenting to the hospital with multiple symptoms including diarrhea and urinary symptoms On today's evaluation that is 09/16/2024, Patient is afebrile patient is currently on 3 L nasal cannula oxygen and denies having any shortness of breath, the patient denies any chest pain or cough, the patient denies any nausea vomiting did not have any abdominal pain and no diarrhea. Patient white count is 5.1, creatinine 0.6 Objective - Vital Signs Vital signs: Vital Signs Temp 98 F 09/16/24 13:15 Pulse 83 09/16/24 13:15 Resp 18 09/16/24 13:15 BP 128/63 09/16/24 13:15 Pulse Ox 96 09/16/24 13:15 FiO2 Intake & Output 09/15/24 09/16/24 09/16/24 18:59 06:59 18:59 Intake Total 1440 540 Output Total 550 400 Balance 890 140 Intake: Oral 1440 540 Output: Urine 550 400 Other: Voiding Method Diaper Diaper Diaper Incontinent Incontinent Incontinent External Catheter External Catheter External Catheter # Voids 1 # Bowel Movements 1 - Exam GENERAL DESCRIPTION: An elderly female lying in bed in no distress RESPIRATORY SYSTEM: Unlabored breathing , decreased breath sounds at bases HEART: S1 S2 regular rate and rhythm , ABDOMEN: Soft , no tenderness EXTREMITIES: Right foot wound currently dressed - Labs CBC & Chem 7: 09/16/24 04:06 09/16/24 04:06 Labs: Abnormal Lab Results - Last 24 Hours (Table) 09/15/24 09/15/24 09/16/24 Range/Units 20:33 20:38 04:06 RBC 2.34 L 2.38 L (4.10-5.20) 10*6/uL Hgb 7.1 L 7.1 L (12.0-15.0) g/dL Hct 23.6 L 24.0 L (37.2-46.3) % MCV 100.9 H 100.8 H (80.0-97.0) fL MCHC 30.1 L 29.6 L (32.0-37.0) g/dL RDW 16.5 H 16.6 H (11.5-14.5) % Carbon Dioxide (21.6-31.8) mmol/L BUN/Creatinine Ratio (12.00-20.00) Ratio Glucose (70-110) mg/dL POC Glucose (mg/dL) 167 H (70-110) mg/dL Calcium (8.7-10.3) mg/dL 09/16/24 09/16/24 09/16/24 Range/Units 04:06 12:44 13:07 RBC (4.10-5.20) 10*6/uL Hgb (12.0-15.0) g/dL Hct (37.2-46.3) % MCV (80.0-97.0) fL MCHC (32.0-37.0) g/dL RDW (11.5-14.5) % Carbon Dioxide 33.0 H (21.6-31.8) mmol/L BUN/Creatinine Ratio 25.50 H (12.00-20.00) Ratio Glucose 59 L (70-110) mg/dL POC Glucose (mg/dL) 69 L 68 L (70-110) mg/dL Calcium 8.5 L (8.7-10.3) mg/dL Assessment and Plan (1) Diarrhea Current Visit: Yes Status: Acute Code(s): R19.7 - DIARRHEA, UNSPECIFIED SNOMED Code(s): 84786126 (2) Leukocytosis Current Visit: Yes Status: Acute Code(s): D72.829 - ELEVATED WHITE BLOOD CELL COUNT, UNSPECIFIED SNOMED Code(s): 575885351 (3) Type 2 diabetes mellitus with foot ulcer Current Visit: No Status: Acute Code(s): E11.621 - TYPE 2 DIABETES MELLITUS WITH FOOT ULCER; L97.509 - NON-PRESSURE CHRONIC ULCER OTH PRT UNSP FOOT W UNSP SEVERITY SNOMED Code(s): 3282061185608 Plan: 1patient presented hospital abdominal pain diarrhea and this patient has been exposed antibiotic in recent past however stool for C. difficile is negative could be drug-induced as the patient did receive enema prior to that 2patient with a right heel diabetic foot ulcer and wound infection with recent debridement in the outpatient setting by podiatry on 08/30/2024 which did grew Morganella and bacteroids not very clear the patient has received antibiotic for the same or not. 3patient with mild elevated white count and urinary symptoms of burning, UA has been positive, however culture has been negative 4patient white count normalized, 5patient to continue with the Rocephin 2 g daily and Flagyl while in patient finishing therapy with the short course of oral Ceftin and Flagyl on discharge Dictation was produced using [employer] dictation software. please excuse any grammatical, word or spelling errors. Time with Patient: Less than 30
[2024-09-16 17:43] LABS: Glucose,Whole Blood 87 mg/dL (70-110)
--- NOTE | 2024-09-16 17:49 | P.PN ---
Subjective Progress Note Date: 09/16/24 74-year-old lady with past medical history significant for COPD, diabetes mellitus, CHF who is currently a resident of a care home facility was brought to the ER for abdominal pain. Patient was recently in the hospital in August at which time she was treated for right heel ulcer and was discharged on ant ibiotics. Patient was all right couple of days back when She started complaining of constipation. Patient was given enema at the facility and following that she had multiple bouts of diarrhea. Patient also having abdominal pain. There is no complaint of shortness of breath. Patient denies any palpitation. There is no complaint of orthopnea or PND. Denies any nausea, vomiting . Patient denies any complaint of dizziness. There is no complaint of headache. Because of the symptoms, patient was sent to the ER Initial lab work done in the ER showed WBC 11.16, hemoglobin 7.1, platelet count 186, sodium 122, potassium 3.4, BUN 47, creatinine 1.04, glucose 62, calcium 9.5, X-ray KUB done showed nonspecific bowel gas pattern Patient admitted to internal medicine service 09/16/2024 Patient is seen and evaluated in room at bedside; remains afebrile; currently on 3 L nasal cannula oxygen and denies having any shortness of breath, the patient denies any chest pain or cough Vital signs reviewed temperature 98, pulse 83, respiration 18 and blood pressure 128/63 Blood work reveals WBC of 5.91, hemoglobin of 7.1 and platelet count of 155, sodium 138, potassium 3.8, BUN/creatinine 15/0.6 and blood glucose of 59 patient presented hospital abdominal pain diarrhea and this patient has been exposed antibiotic in recent past however stool for C. difficile is negative could be drug-induced as the patient did receive enema prior to that patient with a right heel diabetic foot ulcer and wound infection with recent debridement in the outpatient setting by podiatry on 08/30/2024 which did grew Morganella and bacteroids not very clear the patient has received antibiotic for the same or not. ID on board and recommending to continue with the Rocephin 2 g daily and Flagyl while in patient finishing therapy with the short course of oral Ceftin and Flagyl on discharge Objective - Vital Signs Vital signs: Vital Signs Temp 98.2 F 09/16/24 07:50 Pulse 50 L 09/16/24 08:30 Resp 14 09/16/24 08:30 BP 106/72 09/16/24 07:50 Pulse Ox 99 09/16/24 07:50 FiO2 Intake & Output 09/15/24 09/16/24 09/16/24 18:59 06:59 18:59 Intake Total 1440 540 Output Total 550 400 Balance 890 140 Intake: Oral 1440 540 Output: Urine 550 400 Other: Voiding Method Diaper Diaper Diaper Incontinent Incontinent Incontinent External Catheter External Catheter External Catheter # Voids 1 # Bowel Movements 1 - Exam GENERAL: The patient is alert and oriented x3, chronically ill looking HEENT: Pupils are round and equally reacting to light. EOMI. No scleral icterus. No conjunctival pallor. Normocephalic, atraumatic. No pharyngeal erythema. No thyromegaly. CARDIOVASCULAR: S1 and S2 present. No murmurs, rubs, or gallops. PULMONARY: Chest is clear to auscultation, no wheezing or crackles. ABDOMEN: Soft, nontender, nondistended, normoactive bowel sounds. No palpable organomegaly. MUSCULOSKELETAL: No joint swelling or deformity. EXTREMITIES: No cyanosis, clubbing, or pedal edema. NEUROLOGICAL: Gross neurological examination did not reveal any focal deficits. SKIN: Right heel ulcer - Labs CBC & Chem 7: 09/16/24 04:06 09/16/24 04:06 Labs: Abnormal Lab Results - Last 24 Hours (Table) 09/15/24 09/15/24 09/16/24 Range/Units 20:33 20:38 04:06 RBC 2.34 L 2.38 L (4.10-5.20) 10*6/uL Hgb 7.1 L 7.1 L (12.0-15.0) g/dL Hct 23.6 L 24.0 L (37.2-46.3) % MCV 100.9 H 100.8 H (80.0-97.0) fL MCHC 30.1 L 29.6 L (32.0-37.0) g/dL RDW 16.5 H 16.6 H (11.5-14.5) % Carbon Dioxide (21.6-31.8) mmol/L BUN/Creatinine Ratio (12.00-20.00) Ratio Glucose (70-110) mg/dL POC Glucose (mg/dL) 167 H (70-110) mg/dL Calcium (8.7-10.3) mg/dL 09/16/24 09/16/24 Range/Units 04:06 12:44 RBC (4.10-5.20) 10*6/uL Hgb (12.0-15.0) g/dL Hct (37.2-46.3) % MCV (80.0-97.0) fL MCHC (32.0-37.0) g/dL RDW (11.5-14.5) % Carbon Dioxide 33.0 H (21.6-31.8) mmol/L BUN/Creatinine Ratio 25.50 H (12.00-20.00) Ratio Glucose 59 L (70-110) mg/dL POC Glucose (mg/dL) 69 L (70-110) mg/dL Calcium 8.5 L (8.7-10.3) mg/dL Assessment and Plan Assessment: Hyponatremia Hypokalemia UTI Anemia of chronic disease Stage II pressure ulcer of left buttock Stage II pressure ulcer of right buttock Stage III pressure ulcer of right heel Chronic venous insufficiency and venous status dermatitis Chronic CHF diastolic dysfunction with severe pulmonary hypertension -Right lung lesion, PET scan done showed 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 Continue same treatment. Continue with symptomatic treatment. Resume home medication. Monitor labs and vitals. DVT and GI prophylaxis. Further recommendations as per clinical course of the patient
[2024-09-16 20:28] LABS: Glucose,Whole Blood 196 mg/dL (70-110)
[2024-09-17 07:01] LABS: Glucose,Whole Blood 89 mg/dL (70-110)
[2024-09-17 08:03] LABS: Basophils # (A) 0.03 X 10*3/uL (0.00-0.10); Basophils % (A) 0.5 %; Eosinophils # (A) 0.14 X 10*3/uL (0.04-0.35); Eosinophils % (A) 2.3 %; HGB 7.3 g/dL (12.0-15.0); Lymphocytes # (A) 1.52 X 10*3/uL (0.90-5.00); Lymphocytes % (A) 25.2 %; MCH 29.8 pg (27.0-32.0); MCHC 29.2 g/dL (32.0-37.0); Mean Platelet Volume 11.2 FL (9.5-12.2); Monocytes # (A) 0.49 X 10*3/uL (0.20-1.00); Monocytes % (A) 8.1 %; NRBC Per 100 WBC 0 X 10*3/uL (0.00-0.01); Neutrophils # (A) 3.81 X 10*3/uL (1.80-7.70); Neutrophils % (A) 63.4 %; Platelet Count 156 X 10*3/uL (140-440); RBC 2.45 X 10*6/uL (4.10-5.20); RDW 16.6 % (11.5-14.5); WBC 6.02 X 10*3/uL (4.50-10.00)
[2024-09-17 08:09] LABS: BUN/Creat Ratio 21.14 Ratio (12.00-20.00); Blood Urea Nitrogen 14.8 mg/dL (9.0-27.0); Calcium 8.5 mg/dL (8.7-10.3); Carbon Dioxide 32.4 mmol/L (21.6-31.8); Chloride 98 mmol/L (96-109); Glucose 71 mg/dL (70-110); Potassium 4.1 mmol/L (3.5-5.5); Sodium 139 mmol/L (135-145)
[2024-09-17] MEDS: ERGOCALCIFEROL 1,250 MCG (50,000 IU) CAPSULE PO SCH (08:14)
[2024-09-17 12:12] LABS: Glucose,Whole Blood 94 mg/dL (70-110)
[2024-09-17 17:16] LABS: Glucose,Whole Blood 83 mg/dL (70-110)
[2024-09-17 20:45] LABS: Glucose,Whole Blood 97 mg/dL (70-110)
[2024-09-18 02:07] LABS: Glucose,Whole Blood 94 mg/dL (70-110)
--- NOTE | 2024-09-18 05:54 | P.PN ---
Subjective Progress Note Date: 09/17/24 74-year-old lady with past medical history significant for COPD, diabetes mellitus, CHF who is currently a resident of a senior living facility was brought to the ER for abdominal pain. Patient was recently in the hospital in August at which time she was treated for right heel ulcer and was discharged on antibiotics. Patient was all right couple of days back when She started complaining of constipation. Patient was given enema at the facility and following that she had multiple bouts of diarrhea. Patient also having abdominal pain. There is no complaint of shortness of breath. Patient denies any palpitation. There is no complaint of orthopnea or PND. Denies any nausea, vomiting . Patient denies any complaint of dizziness. There is no complaint of headache. Because of the symptoms, patient was sent to the ER Initial lab work done in the ER showed WBC 11.16, hemoglobin 7.1, platelet count 186, sodium 122, potassium 3.4, BUN 47, creatinine 1.04, glucose 62, calcium 9.5, X-ray KUB done showed nonspecific bowel gas pattern Patient admitted to internal medicine service 09/16/2024 Patient is seen and evaluated in room at bedside; remains afebrile; currently on 3 L nasal cannula oxygen and denies having any shortness of breath, the patient denies any chest pain or cough Vital signs reviewed temperature 98, pulse 83, respiration 18 and blood pressure 128/63 Blood work reveals WBC of 5.91, hemoglobin of 7.1 and platelet count of 155, sodium 138, potassium 3.8, BUN/creatinine 15/0.6 and blood glucose of 59 patient presented hospital abdominal pain diarrhea and this patient has been exposed antibiotic in recent past however stool for C. difficile is negative could be drug-induced as the patient did receive enema prior to that patient with a right heel diabetic foot ulcer and wound infection with recent debridement in the outpatient setting by podiatry on 08/30/2024 which did grew Morganella and bacteroids not very clear the patient has received antibiotic for the same or not. ID on board and recommending to continue with the Rocephin 2 g daily and Flagyl while in patient finishing therapy with the short course of oral Ceftin and Flagyl on discharge 09/17/2024 Patient is seen in follow-up today being followed by nephrology for hyponatremia which appears to be improving. Sodium is noted to be 139 today and will continue current regimen. Infectious disease following as well and patient is maintained on antibiotics and will transition to Ceftin and Flagyl on discharge. Plan is for return to [facility] on discharge. Per case management/social work, will need updated PT/OT therapy notes and will need to submit for insurance authorization. Patient is afebrile denies chest pain or shortness of breath. Patient reports tolerating diet with no reported nausea or vomiting. Review of systems: Constitutional: No reports of fatigue, fever, or chills Cardiovascular: No reports of chest pain or palpitations Respiratory: No reports of shortness of breath or cough GI: No reports of nausea, vomiting, or diarrhea : No reports of dysuria or retention Neurovascular: reports of generalized weakness All medications have been reviewed Physical exam: GENERAL: The patient is alert and oriented x3, chronically ill looking, well-developed, elderly appearing, obese HEENT: Pupils are round and equally reacting to light. EOMI. No scleral icterus. No conjunctival pallor. Normocephalic, atraumatic. No pharyngeal erythema. No thyromegaly. CARDIOVASCULAR: S1 and S2 muffled PULMONARY: Diminished breath sounds bilaterally otherwise chest is clear to auscultation, no wheezing or crackles. ABDOMEN: Soft, obese, nontender, nondistended, normoactive bowel sounds. No palpable organomegaly. MUSCULOSKELETAL: No joint swelling or deformity. EXTREMITIES: No cyanosis, clubbing, or pedal edema. NEUROLOGICAL: Gross neurological examination did not reveal any focal deficits. 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 Patient currently maintained on Rocephin and Flagyl per infectious disease and will transition to oral antibiotics on discharge Plan is to return to [facility] on discharge and will await updated therapy notes per case management/social work will also require insurance authorization which is submitted and pending today Continue with local wound care per infectious disease recommendations Home medications reviewed and resumed as appropriate Continue monitoring Accu-Cheks AC and at bedtime, will adjust insulins accordingly Possible discharge planning in the next 24 to 48 hours to [facility] Due to multiple complex medical issues, overall prognosis is guarded The impression and plan of care has been dictated by Lorena Dang, Nurse Practitioner as directed. Dr. Skinny MD I have performed a history and examination and MDM of this patient, discussed the same with the dictator, and agree with the dictator's assessment and plan as written ,documented as a scribe. Based on total visit time, I have performed more than 50% of the visit. Objective - Vital Signs Vital signs: Vital Signs Temp 98.5 F 09/17/24 07:50 Pulse 89 09/17/24 07:50 Resp 16 09/17/24 07:50 BP 103/69 09/17/24 07:50 Pulse Ox 99 09/17/24 07:50 FiO2 Intake & Output 09/16/24 09/17/24 09/17/24 18:59 06:59 18:59 Output Total 200 Balance -200 Output: Urine 200 Other: Voiding Method Diaper Diaper Diaper Incontinent Incontinent Incontinent External Catheter # Voids 2 1 1 # Bowel Movements 1 - Labs CBC & Chem 7: 09/17/24 05:36 09/17/24 05:36 Labs: Abnormal Lab Results - Last 24 Hours (Table) 09/16/24 09/16/24 09/17/24 Range/Units 13:07 20:24 05:36 RBC 2.45 L (4.10-5.20) X 10*6/uL Hgb 7.3 L (12.0-15.0) g/dL Hct 25.0 L (37.2-46.3) % MCV 102.0 H (80.0-97.0) FL MCHC 29.2 L (32.0-37.0) g/dL RDW 16.6 H (11.5-14.5) % Carbon Dioxide (21.6-31.8) mmol/L BUN/Creatinine Ratio (12.00-20.00) Ratio POC Glucose (mg/dL) 68 L 196 H (70-110) mg/dL Calcium (8.7-10.3) mg/dL 09/17/24 Range/Units 05:36 RBC (4.10-5.20) X 10*6/uL Hgb (12.0-15.0) g/dL Hct (37.2-46.3) % MCV (80.0-97.0) FL MCHC (32.0-37.0) g/dL RDW (11.5-14.5) % Carbon Dioxide 32.4 H (21.6-31.8) mmol/L BUN/Creatinine Ratio 21.14 H (12.00-20.00) Ratio POC Glucose (mg/dL) (70-110) mg/dL Calcium 8.5 L (8.7-10.3) mg/dL
[2024-09-18 08:20] LABS: Glucose,Whole Blood 90 mg/dL (70-110)
[2024-09-18 08:26] LABS: HCT 22.4 % (37.2-46.3); HGB 6.5 g/dL (12.0-15.0); MCH 29.3 pg (27.0-32.0); MCV 100.9 FL (80.0-97.0); Mean Platelet Volume 11.3 FL (9.5-12.2); NRBC Per 100 WBC 0 X 10*3/uL (0.00-0.01); Platelet Count 153 X 10*3/uL (140-440); RBC 2.22 X 10*6/uL (4.10-5.20); RDW 16.7 % (11.5-14.5); WBC 6.11 X 10*3/uL (4.50-10.00)
[2024-09-18 08:46] LABS: BUN/Creat Ratio 21.86 Ratio (12.00-20.00); Blood Urea Nitrogen 15.3 mg/dL (9.0-27.0); Calcium 8.2 mg/dL (8.7-10.3); Carbon Dioxide 29.3 mmol/L (21.6-31.8); Chloride 100 mmol/L (96-109); Glucose 81 mg/dL (70-110); Magnesium 1.9 mg/dL (1.5-2.4); Potassium 4.2 mmol/L (3.5-5.5); Sodium 140 mmol/L (135-145)
--- NOTE | 2024-09-18 09:21 | XR ---
EXAMINATION TYPE: XR chest 1V portable DATE OF EXAM: 09/18/2024 9:16 AM COMPARISON: Chest radiographs from 08/09/2024, PET/CT 09/06/2024 TECHNIQUE: XR chest 1V portable Portable AP radiograph of the chest. CLINICAL INDICATION:Female, 74 years old with history of shortness of breath; FINDINGS: Lungs/Pleura: No pleural effusion or pneumothorax. Redemonstration of right mid lung mass which demon strated FDG activity in prior PET/CT. Pulmonary vascularity: Unremarkable. Heart/mediastinum: Cardiomediastinal silhouette is enlarged and stable. Atherosclerotic calcificatio ns are seen in the aorta. Musculoskeletal: No acute osseous pathology. IMPRESSION: 1. No acute process. 2. Redemonstration of right midlung pulmonary mass which was FDG avid on prior PET/CT suggesting mal ignancy. [facility], , 09/18/2024 9:19 AM
[2024-09-18 09:24] LABS: Basophils # (M) 0 X 10*3/uL (0.00-0.10); Eosinophils # (M) 0.18 X 10*3/uL (0.04-0.35); Lymphocytes # (M) 0.86 X 10*3/uL (0.90-5.00); Monocytes # (M) 0.18 X 10*3/uL (0.20-1.00); Neutrophils # (M) 4.89 X 10*3/uL (1.80-7.70); Neutrophils % (M) 80 %
[2024-09-18 12:03] LABS: Glucose,Whole Blood 176 mg/dL (70-110)
[2024-09-18] MEDS: FUROSEMIDE 10 MG/ML 2 ML VIAL IV ONE ×2 (15:28→21:38)
--- NOTE | 2024-09-18 15:50 | P.PN ---
Subjective Progress Note Date: 09/17/24 Principal diagnosis: Reason for follow-up is right foot infected ulcer and UTI Patient is a 74-year-old female with a past medical history significant for Heart Failure, COPD, Diabetes Mellitus, GERD/Reflux, Hyperlipidemia, Thyroid Disorder, also with a right heel diabetic foot ulcer infected with the patient has been on oral antibiotics recently debrided by over hauler helper on 08/30/2024 culture did grew Morganella and bacteroids, now presenting to the hospital with multiple symptoms including diarrhea and urinary symptoms On today's evaluation that is 09/17/2024, patient has been afebrile, patient is breathing comfortably and is currently on 3 L current oxygen patient denies having any chest pain and cough, patient denies nausea vomiting or diarrhea and no abdominal pain or pain to the lower extremity wound. Patient did have white count 6.02 creatinine 0.7 Objective - Vital Signs Vital signs: Vital Signs Temp 98.5 F 09/17/24 07:50 Pulse 89 09/17/24 07:50 Resp 16 09/17/24 07:50 BP 103/69 09/17/24 07:50 Pulse Ox 99 09/17/24 07:50 FiO2 Intake & Output 09/16/24 09/17/24 09/17/24 18:59 06:59 18:59 Output Total 200 Balance -200 Output: Urine 200 Other: Voiding Method Diaper Diaper Diaper Incontinent Incontinent Incontinent External Catheter # Voids 2 1 1 # Bowel Movements 1 - Exam GENERAL DESCRIPTION: An elderly female lying in bed in no distress RESPIRATORY SYSTEM: Unlabored breathing , decreased breath sounds at bases HEART: S1 S2 regular rate and rhythm , ABDOMEN: Soft , no tenderness EXTREMITIES: Right foot wound currently dressed - Labs CBC & Chem 7: 09/18/24 04:32 09/18/24 04:32 Labs: Abnormal Lab Results - Last 24 Hours (Table) 09/16/24 09/16/24 09/16/24 Range/Units 12:44 13:07 20:24 RBC (4.10-5.20) X 10*6/uL Hgb (12.0-15.0) g/dL Hct (37.2-46.3) % MCV (80.0-97.0) FL MCHC (32.0-37.0) g/dL RDW (11.5-14.5) % Carbon Dioxide (21.6-31.8) mmol/L BUN/Creatinine Ratio (12.00-20.00) Ratio POC Glucose (mg/dL) 69 L 68 L 196 H (70-110) mg/dL Calcium (8.7-10.3) mg/dL 09/17/24 09/17/24 Range/Units 05:36 05:36 RBC 2.45 L (4.10-5.20) X 10*6/uL Hgb 7.3 L (12.0-15.0) g/dL Hct 25.0 L (37.2-46.3) % MCV 102.0 H (80.0-97.0) FL MCHC 29.2 L (32.0-37.0) g/dL RDW 16.6 H (11.5-14.5) % Carbon Dioxide 32.4 H (21.6-31.8) mmol/L BUN/Creatinine Ratio 21.14 H (12.00-20.00) Ratio POC Glucose (mg/dL) (70-110) mg/dL Calcium 8.5 L (8.7-10.3) mg/dL Assessment and Plan (1) Diarrhea Current Visit: Yes Status: Acute Code(s): R19.7 - DIARRHEA, UNSPECIFIED SNOMED Code(s): 33516863 (2) Leukocytosis Current Visit: Yes Status: Acute Code(s): D72.829 - ELEVATED WHITE BLOOD CELL COUNT, UNSPECIFIED SNOMED Code(s): 161607800 (3) Type 2 diabetes mellitus with foot ulcer Current Visit: No Status: Acute Code(s): E11.621 - TYPE 2 DIABETES MELLITUS WITH FOOT ULCER; L97.509 - NON-PRESSURE CHRONIC ULCER OTH PRT UNSP FOOT W UNSP SEVERITY SNOMED Code(s): 9095113049125 Plan: 1patient presented hospital abdominal pain diarrhea and this patient has been e xposed antibiotic in recent past however stool for C. difficile is negative could be drug-induced as the patient did receive enema prior to that 2patient with a right heel diabetic foot ulcer and wound infection with recent debridement in the outpatient setting by podiatry on 08/30/2024 which did grew Morganella and bacteroids not very clear the patient has received antibiotic for the same or not. 3patient with mild elevated white count and urinary symptoms of burning, UA has been positive, however culture has been negative 4patient white count normalized, patient is currently being treated with Rocephin 2 g daily and Flagyl while in patient. And local wound care as ordered Dictation was produced using [employer] dictation software. please excuse any grammatical, word or spelling errors. Time with Patient: Less than 30
--- NOTE | 2024-09-18 15:51 | P.PN ---
Subjective Progress Note Date: 09/18/24 Principal diagnosis: Reason for follow-up is right foot infected ulcer and UTI Patient is a 74-year-old female with a past medical history significant for Heart Failure, COPD, Diabetes Mellitus, GERD/Reflux, Hyperlipidemia, Thyroid Disorder, also with a right heel diabetic foot ulcer infected with the patient has been on oral antibiotics recently debrided by induction heating equipment setter on 08/30/2024 culture did grew Morganella and bacteroids, now presenting to the hospital with multiple symptoms including diarrhea and urinary symptoms On today's evaluation that is 09/18/2024, Patient is afebrile this morning patient denies having any chest pain shortness of breath or cough, the patient is currently on room air, patient denies any abdominal pain no diarrhea no nausea no vomiting, denies pain to bilateral extremity. Patient white count 6.11 creatinine 0.7 Objective - Vital Signs Vital signs: Vital Signs Temp 98.5 F 09/18/24 13:55 Pulse 82 09/18/24 13:55 Resp 19 09/18/24 13:55 BP 103/69 09/18/24 13:55 Pulse Ox 100 09/18/24 13:55 FiO2 Intake & Output 09/17/24 09/18/24 09/18/24 18:59 06:59 18:59 Intake Total 240 310 Balance 240 310 Weight 77.564 kg Intake: Oral 240 Blood Product 310 Rc As-1 Unit 310 [id number] Other: Voiding Method Diaper Diaper Diaper Incontinent Incontinent Incontinent # Voids 2 3 - Exam GENERAL DESCRIPTION: An elderly female lying in bed in no distress RESPIRATORY SYSTEM: Unlabored breathing , decreased breath sounds at bases HEART: S1 S2 regular rate and rhythm , ABDOMEN: Soft , no tenderness EXTREMITIES: Right foot wound currently dressed - Labs CBC & Chem 7: 09/18/24 04:32 09/18/24 04:32 Labs: Abnormal Lab Results - Last 24 Hours (Table) 09/18/24 09/18/24 09/18/24 Range/Units 04:32 04:32 08:55 RBC 2.22 L (4.10-5.20) X 10*6/uL Hgb 6.5 A* (12.0-15.0) g/dL Hct 22.4 L (37.2-46.3) % MCV 100.9 H (80.0-97.0) FL MCHC 29.0 L (32.0-37.0) g/dL RDW 16.7 H (11.5-14.5) % Lymphocytes # (Manual) 0.86 L (0.90-5.00) X 10*3/uL Monocytes # (Manual) 0.18 L (0.20-1.00) X 10*3/uL BUN/Creatinine Ratio 21.86 H (12.00-20.00) Ratio POC Glucose (mg/dL) (70-110) mg/dL Calcium 8.2 L (8.7-10.3) mg/dL Crossmatch See Detail 09/18/24 Range/Units 12:02 RBC (4.10-5.20) X 10*6/uL Hgb (12.0-15.0) g/dL Hct (37.2-46.3) % MCV (80.0-97.0) FL MCHC (32.0-37.0) g/dL RDW (11.5-14.5) % Lymphocytes # (Manual) (0.90-5.00) X 10*3/uL Monocytes # (Manual) (0.20-1.00) X 10*3/uL BUN/Creatinine Ratio (12.00-20.00) Ratio POC Glucose (mg/dL) 176 H (70-110) mg/dL Calcium (8.7-10.3) mg/dL Crossmatch Assessment and Plan (1) Diarrhea Current Visit: Yes Status: Acute Code(s): R19.7 - DIARRHEA, UNSPECIFIED SNOMED Code(s): 86999142 (2) Leukocytosis Current Visit: Yes Status: Acute Code(s): D72.829 - ELEVATED WHITE BLOOD CELL COUNT, UNSPECIFIED SNOMED Code(s): 604241446 (3) Type 2 diabetes mellitus with foot ulcer Current Visit: No Status: Acute Code(s): E11.621 - TYPE 2 DIABETES MELLITUS WITH FOOT ULCER; L97.509 - NON-PRESSURE CHRONIC ULCER OTH PRT UNSP FOOT W UNSP SEVERITY SNOMED Code(s): 3013216517243 Plan: 1patient presented hospital abdominal pain diarrhea and this patient has been exposed antibiotic in recent past however stool for C. difficile is negative could be drug-induced as the patient did receive enema prior to that 2patient with a right heel diabetic foot ulcer and wound infection with recent debridement in the outpatient setting by podiatry on 08/30/2024 which did grew Morganella and bacteroids. 3patient with mild elevated white count and urinary symptoms of burning, UA has been positive, however culture has been negative 4patient white count normalized, right foot plantar wound has decreased in size no drainage she is covered with Rocephin and Flagyl on the basis of recent culture will be able to finish therapy with oral Ceftin and Flagyl for about a week on discharge Dictation was produced using [employer] dictation software. please excuse any grammatical, word or spelling errors. Time with Patient: Less than 30
[2024-09-18 17:15] LABS: Glucose,Whole Blood 103 mg/dL (70-110)
[2024-09-18 20:32] LABS: Glucose,Whole Blood 157 mg/dL (70-110)
[2024-09-18] MEDS: ZINC OXIDE PASTE (Z-GUARD) 1 APPLIC TOPICAL PRN (21:45)
--- NOTE | 2024-09-19 05:31 | P.PN ---
Subjective Progress Note Date: 09/18/24 74-year-old lady with past medical history significant for COPD, diabetes mellitus, CHF who is currently a resident of a [facility] facility was brought to the ER for abdominal pain. Patient was recently in the hospital in August at which time she was treated for right heel ulcer and was discharged on antibiotics. Patient was all right couple of days back when She started complaining of constipation. Patient was given enema at the facility and following that she had multiple bouts of diarrhea. Patient also having abdominal pain. There is no complaint of shortness of breath. Patient denies any palpitation. There is no complaint of orthopnea or PND. Denies any nausea, vomiting . Patient denies any complaint of dizziness. There is no complaint of headache. Because of the symptoms, patient was sent to the ER Initial lab work done in the ER showed WBC 11.16, hemoglobin 7.1, platelet count 186, sodium 122, potassium 3.4, BUN 47, creatinine 1.04, glucose 62, calcium 9.5, X-ray KUB done showed nonspecific bowel gas pattern Patient admitted to internal medicine service 09/16/2024 Patient is seen and evaluated in room at bedside; remains afebrile; currently on 3 L nasal cannula oxygen and denies having any shortness of breath, the patient denies any chest pain or cough Vital signs reviewed temperature 98, pulse 83, respiration 18 and blood pressure 128/63 Blood work reveals WBC of 5.91, hemoglobin of 7.1 and platelet count of 155, sodium 138, potassium 3.8, BUN/creatinine 15/0.6 and blood glucose of 59 patient presented hospital abdominal pain diarrhea and this patient has been exposed antibiotic in recent past however stool for C. difficile is negative could be drug-induced as the patient did receive enema prior to that patient with a right heel diabetic foot ulcer and wound infection with recent debridement in the outpatient setting by podiatry on 08/30/2024 which did grew Morganella and bacteroids not very clear the patient has received antibiotic for the same or not. ID on board and recommending to continue with the Rocephin 2 g daily and Flagyl while in patient finishing therapy with the short course of oral Ceftin and Flagyl on discharge 09/17/2024 Patient is seen in follow-up today being followed by nephrology for hyponatremia which appears to be improving. Sodium is noted to be 139 today and will continue current regimen. Infectious disease following as well and patient is maintained on antibiotics and will transition to Ceftin and Flagyl on discharge. Plan is for return to [facility] on discharge. Per case management/social work, will need updated PT/OT therapy notes and will need to submit for insurance authorization. Patient is afebrile denies chest pain or shortness of breath. Patient reports tolerating diet with no reported nausea or vomiting. 09/18/2024 Patient is seen in follow-up this morning hemoglobin is 6.5 and will transfuse 2 units of PRBC. Recommend Lasix in between dosing and will follow-up on repeat CBC in the next 24 hours. Continuing to await insurance authorization for [facility] which patient plans on returning to on discharge. Patient encouraged increased activity as tolerated. Patient is afebrile with no reported chest pain or shortness of breath. Patient reports has been tolerating diet with no reported nausea or vomiting. Review of systems: Constitutional: No reports of fatigue, fever, or chills Cardiovascular: No reports of chest pain or palpitations Respiratory: No reports of shortness of breath or cough GI: No reports of nausea, vomiting, or diarrhea : No reports of dysuria or retention Neurovascular: reports of generalized weakness All medications have been reviewed Physical exam: GENERAL: The patient is alert and oriented x3, chronically ill looking, well-d eveloped, elderly appearing, obese HEENT: Pupils are round and equally reacting to light. EOMI. No scleral icterus. No conjunctival pallor. Normocephalic, atraumatic. No pharyngeal erythema. No thyromegaly. CARDIOVASCULAR: S1 and S2 muffled PULMONARY: Diminished breath sounds bilaterally otherwise chest is clear to auscultation, no wheezing or crackles. ABDOMEN: Soft, obese, nontender, nondistended, normoactive bowel sounds. No palpable organomegaly. MUSCULOSKELETAL: No joint swelling or deformity. EXTREMITIES: No cyanosis, clubbing, or pedal edema. NEUROLOGICAL: Gross neurological examination did not reveal any focal deficits. 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 Patient currently maintained on Rocephin and Flagyl per infectious disease and will transition to oral antibiotics on discharge Plan is to return to [facility] on discharge and will await updated therapy notes per case management/social work will also require insurance authorization which is submitted and pending today Hemoglobin 6.5 with no active bleeding noted, will transfuse 2 units of PRBC with Lasix in between and will follow-up on repeat CBC in a.m. Continue with local wound care per infectious disease recommendations Home medications reviewed and resumed as appropriate Continue monitoring Accu-Cheks AC and at bedtime, will adjust insulins ac cordingly Possible discharge planning in the next 24 to 48 hours to [facility] Due to multiple complex medical issues, overall prognosis is guarded The impression and plan of care has been dictated by Lorena Dang, Nurse Practitioner as directed. Dr. Skinny MD I have performed a history and examination and MDM of this patient, discussed the same with the dictator, and agree with the dictator's assessment and plan as written ,documented as a scribe. Based on total visit time, I have performed more than 50% of the visit. Objective - Vital Signs Vital signs: Vital Signs Temp 98.1 F 09/19/24 02:00 Pulse 80 09/19/24 02:00 Resp 20 09/19/24 02:00 BP 119/77 09/19/24 02:00 Pulse Ox 98 09/19/24 02:00 FiO2 Intake & Output 09/18/24 09/18/24 09/19/24 06:59 18:59 06:59 Intake Total 240 310 310 Balance 240 310 310 Weight 77.564 kg Intake: Oral 240 Blood Product 310 310 Rc As-1 Unit 310 [id number] Rc As-1 Unit 0 310 [id number] Other: Voiding Method Diaper Diaper Diaper Incontinent Incontinent Incontinent # Voids 3 2 # Bowel Movements 2 - Labs CBC & Chem 7: 09/18/24 04:32 09/18/24 04:32 Labs: Abnormal Lab Results - Last 24 Hours (Table) 09/18/24 09/18/24 09/18/24 Range/Units 04:32 04:32 08:55 RBC 2.22 L (4.10-5.20) X 10*6/uL Hgb 6.5 A* (12.0-15.0) g/dL Hct 22.4 L (37.2-46.3) % MCV 100.9 H (80.0-97.0) FL MCHC 29.0 L (32.0-37.0) g/dL RDW 16.7 H (11.5-14.5) % Lymphocytes # (Manual) 0.86 L (0.90-5.00) X 10*3/uL Monocytes # (Manual) 0.18 L (0.20-1.00) X 10*3/uL BUN/Creatinine Ratio 21.86 H (12.00-20.00) Ratio POC Glucose (mg/dL) (70-110) mg/dL Calcium 8.2 L (8.7-10.3) mg/dL Crossmatch See Detail 09/18/24 09/18/24 Range/Units 12:02 20:25 RBC (4.10-5.20) X 10*6/uL Hgb (12.0-15.0) g/dL Hct (37.2-46.3) % MCV (80.0-97.0) FL MCHC (32.0-37.0) g/dL RDW (11.5-14.5) % Lymphocytes # (Manual) (0.90-5.00) X 10*3/uL Monocytes # (Manual) (0.20-1.00) X 10*3/uL BUN/Creatinine Ratio (12.00-20.00) Ratio POC Glucose (mg/dL) 176 H 157 H (70-110) mg/dL Calcium (8.7-10.3) mg/dL Crossmatch
[2024-09-19 07:43] LABS: Glucose,Whole Blood 71 mg/dL (70-110)
[2024-09-19 08:04] LABS: Basophils # (A) 0.05 X 10*3/uL (0.00-0.10); Basophils % (A) 0.7 %; Eosinophils # (A) 0.14 X 10*3/uL (0.04-0.35); HCT 30.3 % (37.2-46.3); HGB 9.2 g/dL (12.0-15.0); Lymphocytes # (A) 1.64 X 10*3/uL (0.90-5.00); Lymphocytes % (A) 23.4 %; MCH 29.8 pg (27.0-32.0); MCHC 30.4 g/dL (32.0-37.0); MCV 98.1 FL (80.0-97.0); Mean Platelet Volume 10.7 FL (9.5-12.2); Monocytes # (A) 0.52 X 10*3/uL (0.20-1.00); Monocytes % (A) 7.4 %; NRBC Per 100 WBC 0 X 10*3/uL (0.00-0.01); Neutrophils # (A) 4.59 X 10*3/uL (1.80-7.70); Neutrophils % (A) 65.5 %; Platelet Count 166 X 10*3/uL (140-440); RBC 3.09 X 10*6/uL (4.10-5.20); RDW 17.2 % (11.5-14.5); WBC 7.01 X 10*3/uL (4.50-10.00)
[2024-09-19 08:20] VITALS: RESP 16; TEMP 98.3
[2024-09-19] MEDS: CEFDINIR 300 MG CAP PO SCH (09:02)
[2024-09-19 12:38] LABS: Glucose,Whole Blood 96 mg/dL (70-110)
[2024-09-19 13:06] VITALS: BP 116/79; PULSE 75
--- NOTE | 2024-09-19 13:27 | P.DS ---
Providers Date of admission: 09/11/24 10:47 Expected date of discharge: 09/19/24 Attending physician: Sudhir Astorga MD Consults: 09/11/24 10:37 Consult Physician Routine Consulting Provider: Seema Lambert Consult Reason/Comments: Hyponatremia Do you want consulting provider notified?: Yes, Notify in am 09/11/24 13:39 Consult Physician Routine Consulting Provider: Abrahan Godwin Consult Reason/Comments: Right heel ulcer, evaluate for need for antibiotics Do you want consulting provider notified?: Yes Primary care physician: Quoc Devine Hospital Course: Final diagnosis Hyponatremia, improved, Bumex remains on hold Hypokalemia, improved after replacement UTI, present on admission Anemia of chronic disease, hemoglobin was noted to be 6.5 yesterday status post 2 units of PRBCs and hemoglobin is 9.2 today Stage II pressure ulcer of left buttock, present on admission Stage II pressure ulcer of right buttock, present on admission Stage III pressure ulcer of right heel, present on admission Chronic venous insufficiency and venous status dermatitis Chronic CHF diastolic dysfunction with severe pulmonary hypertension -Right lung lesion, PET scan done showed 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 Patient will follow-up with Dr. Devine in the outpatient setting upon discharge. Patient is to continue with oral Ceftin and Flagyl for 1 week on discharge and outpatient follow-up with the wound care center with continued wound care of the right heel ulcer. Patient to follow-up with nephrology outpatient as scheduled. Repeat labs of CBC, CMP in 2 to 3 days to monitor hemoglobin along with kidney functions and sodium levels total time taken is greater than 35 minutes. Hospital course This is a 74-year-old female who was recently admitted with abdominal pain with multiple electrolyte abnormalities including significant hyponatremia being closely monitored with nephrology following. Patient also with anemia and anemia of chronic disease with noted low hemoglobins maintained on Eliquis which was held. Patient okay to be resumed as hemoglobin has been replaced and is currently 9.2 today. Patient did receive 2 units of PRBCs this hospitalization. Patient has been cleared by consultations and would like to return to [facility]. Please refer to other consultation notes for further HPI. Currently no reports of chest pain, shortness of breath, or palpitations. Patient is afebrile. No reports of nausea or vomiting and patient is tolerating diet. Patient will be going to [facility] on the [place] today. Guarded prognosis Physical exam: Gen: This is a 74-year-old female who is awake, alert oriented x 3, well- developed, elderly appearing, obese HEENT: Head is atraumatic, normocephalic. Pupils equal, round. Sclerae is anicteric. NECK: Supple. No JVD. No lymphadenopathy. No thyromegaly. LUNGS: Diminished breath sounds bilaterally otherwise clear to auscultation. No wheezes or rhonchi. No intercostal retractions. HEART: S1, S2 are muffled ABDOMEN: Soft. Obese bowel sounds are present. No masses. No tenderness. EXTREMITIES: No pedal edema. No calf tenderness. Right heel dressing is dry and intact NEUROLOGICAL: Patient is awake, alert and oriented x3. Cranial nerves 2 through 12 are grossly intact. Diffusely weak Please refer to medication reconciliation sheet for a list of medications. The impression and plan of care has been dictated by Lorena Dang, Nurse Practitioner as directed. Dr. Skinny MD I have performed a history and examination and MDM of this patient, discussed the same with the dictator, and agree with the dictator's assessment and plan as written ,documented as a scribe. Based on total visit time, I have performed more than 50% of the visit. Patient Condition at Discharge: Fair Plan - Discharge Summary Discharge Rx Participant: Yes New Discharge Prescriptions: New cefuroxime axetiL [Ceftin] 500 mg PO BID 7 Days #14 tab metroNIDAZOLE [Flagyl] 500 mg PO TID 7 Days #21 tab Nystatin 100,000 Unit/gm Powd [Mycostatin Powder] 1 applic TOPICAL BID each Continue Albuterol Inhaler [Ventolin Hfa Inhaler] 1 - 2 puff INHALATION RT-Q6H PRN PRN Reason: Shortness Of Breath Ergocalciferol [Vitamin D2 (1250 Mcg = 56381 Iu)] 1,250 mcg PO MO@0900 INSULIN LISPRO (HumaLOG) [HumaLOG] See Protocol SQ ACHS Insulin Glargine (Lantus) [Lantus Vial] 35 unit SQ HS@2099 Budesonide/Formoterol Fumarate [Symbicort 160-4.5 Mcg Inhaler] 2 puff INHALATION RT-BID@0900,2099 Magnesium Oxide [Mag-Ox] 400 mg PO TID@0900,1200,2100 Apixaban [Eliquis] 2.5 mg PO BID@0900,2100 Empagliflozin [Jardiance] 10 mg PO DAILY@0900 Lactulose [Cephulac] 20 gm PO BID PRN #0 PRN Reason: Constipation traZODone HCL [Desyrel] 25 mg PO HS@2099 Ipratropium-Albuterol Nebulize [Duoneb 0.5 mg-3 mg/3 ml Soln] 3 ml INHALATION RT-Q6H PRN PRN Reason: COPD Metoprolol Tartrate [Lopressor] 25 mg PO BID@0900,2099 Glucerna Shake 1 can PO DAILY@0900 Folic Acid 1 mg PO DAILY@0900 Docusate [Colace] 100 mg PO DAILY@0900 Tamsulosin [Flomax] 0.4 mg PO HS@2099 Amoxic-Pot Clav 875-125Mg [Augmentin 875-125] 1 tab PO BID@0900,2100 Sennosides/Docusate Sodium [Senna Plus 8.6-50 mg Tablet] 1 tab PO BID@0900,1700 HYDROcodone/APAP 10-325MG [[place] 10-325] 1 tab PO TID PRN #4 tab PRN Reason: Pain Discontinued Bumetanide [BUMEX] 1 mg PO BID@0600,1400 Ciprofloxacin HCl [Cipro] 500 mg PO BID@0900,2100 Discharge Medication List Albuterol Inhaler [Ventolin Hfa Inhaler] 1 - 2 puff INHALATION RT-Q6H PRN 01/08/15 [History] Ergocalciferol [Vitamin D2 (1250 Mcg = 42901 Iu)] 1,250 mcg PO MO@0900 07/04/24 [History] traZODone HCL [Desyrel] 25 mg PO HS@2100 07/04/24 [History] Budesonide/Formoterol Fumarate [Symbicort 160-4.5 Mcg Inhaler] 2 puff INHALATION RT-BID@0900,209908/09/24 [History] Docusate [Colace] 100 mg PO DAILY@0908/09/24 [History] Folic Acid 1 mg PO DAILY@89908/09/24 [History] Glucerna Shake 1 can PO DAILY@89908/09/24 [History] INSULIN LISPRO (HumaLOG) [HumaLOG] See Protocol SQ ACHS 08/09/24 [History] Insulin Glargine (Lantus) [Lantus Vial] 35 unit SQ HS@209908/09/24 [History] Ipratropium-Albuterol Nebulize [Duoneb 0.5 mg-3 mg/3 ml Soln] 3 ml INHALATION RT-Q6H PRN 08/09/24 [History] Metoprolol Tartrate [Lopressor] 25 mg PO BID@0900,209908/09/24 [History] Tamsulosin [Flomax] 0.4 mg PO HS@209908/29/24 [History] Amoxic-Pot Clav 875-125Mg [Augmentin 875-125] 1 tab PO BID@0900,209908/30/24 [History] Apixaban [Eliquis] 2.5 mg PO BID@0900,209909/11/24 [History] Empagliflozin [Jardiance] 10 mg PO DAILY@89909/11/24 [History] Magnesium Oxide [Mag-Ox] 400 mg PO TID@0900,1200,209909/11/24 [History] Sennosides/Docusate Sodium [Senna Plus 8.6-50 mg Tablet] 1 tab PO BID@0900,1700 09/11/24 [History] HYDROcodone/APAP 10-325MG [[place] 10-325] 1 tab PO TID PRN #4 tab 09/19/24 [Rx] Lactulose [Cephulac] 20 gm PO BID PRN #0 09/19/24 [Rx] Nystatin 100,000 Unit/gm Powd [Mycostatin Powder] 1 applic TOPICAL BID each 09/19/24 [Rx] cefuroxime axetiL [Ceftin] 500 mg PO BID 7 Days #14 tab 09/19/24 [Rx] metroNIDAZOLE [Flagyl] 500 mg PO TID 7 Days #21 tab 09/19/24 [Rx] Follow up Appointment(s)/Referral(s): Seema Lambert MD [STAFF PHYSICIAN] - 1 Week Quoc Devine MD [Primary Care Provider] - 1-2 days Activity/Diet/Wound Care/Special Instructions: Patient is returning to [facility] Activity as tolerated Follow-up with nephrology outpatient Repeat CBC, BMP, magnesium in 2 to 3 days to monitor hemoglobin along with kidney functions and sodium levels Continue with diabetic diet and continue current regimen with monitoring Accu- Cheks AC and at bedtime Continue local wound care and using barrier paste to the buttock area and frequent offloading Continue holding Bumex for now until repeat labs NovoLog sliding scale 0-150 equals 0 units 151-200 equals 2 units 201-250 equals 4 units 251-300 equals 6 units 301-350 equals 8 units 351-400 equals 10 units Please notify provider if blood sugar is 400 or above Discharge Disposition: TRANSFER TO SNF/ECF
[2024-09-19 17:21] LABS: Glucose,Whole Blood 85 mg/dL (70-110)
--- NOTE | 2024-09-20 16:12 | P.PN ---
Subjective Progress Note Date: 09/19/24 Principal diagnosis: Reason for follow-up is right foot infected ulcer and UTI Patient is a 74-year-old female with a past medical history significant for Heart Failure, COPD, Diabetes Mellitus, GERD/Reflux, Hyperlipidemia, Thyroid Disorder, also with a right heel diabetic foot ulcer infected with the patient has been on oral antibiotics recently debrided by assistant manager on 08/30/2024 culture did grew Morganella and bacteroids, now presenting to the hospital with multiple symptoms including diarrhea and urinary symptoms On today's evaluation that is 09/19/2024,the patient remains to be afebrile, patient is on room air not requiring supplemental oxygen and denies any shortness of breath no chest pain or cough.Patient denies having any nausea or vomiting, no abdominal pain however has been complaining of some diarrhea. Patient white count is normal at 7.01 urine culture have been negative Objective - Vital Signs Vital signs: Vital Signs Temp 98.3 F 09/19/24 07:29 Pulse 81 09/19/24 07:29 Resp 16 09/19/24 07:29 BP 103/72 09/19/24 07:29 Pulse Ox 98 09/19/24 07:29 FiO2 Intake & Output 09/18/24 09/19/24 09/19/24 18:59 06:59 18:59 Intake Total 310 310 Balance 310 310 Weight 77.564 kg Intake: Blood Product 310 310 Rc As-1 Unit 310 [id number] Rc As-1 Unit 0 310 [id number] Other: Voiding Method Diaper Diaper Incontinent Incontinent # Voids 2 1 # Bowel Movements 2 1 - Exam GENERAL DESCRIPTION: An elderly female lying in bed in no distress RESPIRATORY SYSTEM: Unlabored breathing , decreased breath sounds at bases HEART: S1 S2 regular rate and rhythm , ABDOMEN: Soft , no tenderness EXTREMITIES: Right foot wound currently dressed - Labs CBC & Chem 7: 09/19/24 05:02 09/18/24 04:32 Labs: Abnormal Lab Results - Last 24 Hours (Table) 09/18/24 09/18/24 09/19/24 Range/Units 08:55 20:25 05:02 RBC 3.09 L (4.10-5.20) X 10*6/uL Hgb 9.2 L (12.0-15.0) g/dL Hct 30.3 L (37.2-46.3) % MCV 98.1 H (80.0-97.0) FL MCHC 30.4 L (32.0-37.0) g/dL RDW 17.2 H (11.5-14.5) % Immature Gran # 0.07 H (0.00-0.04) X 10*3/uL POC Glucose (mg/dL) 157 H (70-110) mg/dL Crossmatch See Detail Assessment and Plan (1) Diarrhea Status: Acute Code(s): R19.7 - DIARRHEA, UNSPECIFIED SNOMED Code(s): 45213370 (2) Leukocytosis Status: Acute Code(s): D72.829 - ELEVATED WHITE BLOOD CELL COUNT, UNSPECIFIED SNOMED Code(s): 045693759 (3) Type 2 diabetes mellitus with foot ulcer Status: Acute Code(s): E11.621 - TYPE 2 DIABETES MELLITUS WITH FOOT ULCER; L97.509 - NON-PRESSURE CHRONIC ULCER OTH PRT UNSP FOOT W UNSP SEVERITY SNOMED Code(s): 1194390417457 Plan: 1patient presented hospital abdominal pain diarrhea and this patient has been exposed antibiotic in recent past however stool for C. difficile is negative could be drug-induced as the patient did receive enema prior to that 2patient with a right heel diabetic foot ulcer and wound infection with recent debridement in the outpatient setting by podiatry on 08/30/2024 which did grew Morganella and bacteroids. 3patient with mild elevated white count and urinary symptoms of burning, UA has been positive, however culture has been negative 4patient white count normalized, right foot plantar wound has decreased in size no drainage, 5patient has been advised oral Ceftin and Flagyl for about a week on discharge and close outpatient follow-up Dictation was produced using [employer] dictation software. please excuse any grammatical, word or spelling errors. Time with Patient: Less than 30
== END 2024-09-19 18:12 | DRG 640 ==
LOC: EC 08:50 → 5NMEDONC 10:47
PROVIDERS: ADMIT Internal Medicine; ATTEND Internal Medicine
PROC: 30233N1 Transfusion of Nonautologous Red Blood Cells into Peripheral Vein, Percutaneous Approach (ICD-10-PCS; principal; 2024-09-18)
DX: E87.1 Hypo-osmolality and hyponatremia (principal); L89.613 Pressure ulcer of right heel, stage 3; L89.322 Pressure ulcer of left buttock, stage 2; L89.312 Pressure ulcer of right buttock, stage 2; I50.32 Chronic diastolic (congestive) heart failure; I27.20 Pulmonary hypertension, unspecified; E11.65 Type 2 diabetes mellitus with hyperglycemia; J44.9 Chronic obstructive pulmonary disease, unspecified; E66.9 Obesity, unspecified; J96.11 Chronic respiratory failure with hypoxia; N39.0 Urinary tract infection, site not specified; L97.519 Non-pressure chronic ulcer of other part of right foot with unspecified severity; Z79.4 Long term (current) use of insulin; E87.6 Hypokalemia; I87.2 Venous insufficiency (chronic) (peripheral); E86.1 Hypovolemia; R91.8 Other nonspecific abnormal finding of lung field; I87.8 Other specified disorders of veins; L30.9 Dermatitis, unspecified; E78.5 Hyperlipidemia, unspecified; Z79.01 Long term (current) use of anticoagulants; Z79.51 Long term (current) use of inhaled steroids; Z79.84 Long term (current) use of oral hypoglycemic drugs; Z79.899 Other long term (current) drug therapy; Z82.49 Family history of ischemic heart disease and other diseases of the circulatory system; Z85.118 Personal history of other malignant neoplasm of bronchus and lung; Z88.0 Allergy status to penicillin; Z68.30 Body mass index [BMI] 30.0-30.9, adult; Z90.49 Acquired absence of other specified parts of digestive tract
CPT/HCPCS: 36415; 71045; 74018; 80048; 80053; 81001; 82570; 82607; 82728; 82747; 83540; 83550; 83735; 83930; 83935; 84295; 84300; 85025; 86850; 86900; 86901; 86920; 87086; 87324; 94640; 94760; 96361; 96374; 99285

== ENCOUNTER 2024-10-19 04:05 | Emergency (ER) | payer MEDICARE ==
[2024-10-19 04:17] VITALS: RESP 18; TEMP 98.8
[2024-10-19] MEDS: PANTOPRAZOLE 40 MG/10 ML VIAL IVP STA (05:06)
[2024-10-19] MEDS: LACTATED RINGERS 1,000 ML IV SCH (05:07)
[2024-10-19] MEDS: ONDANSETRON 4 MG/2 ML VIAL IVP STA (05:20)
[2024-10-19] MEDS: MORPHINE SULFATE 2 MG/ML SYRINGE IVP STA (05:21)
[2024-10-19 05:25] LABS: Basophils # (A) 0.04 10*3/uL (0.00-0.10); Basophils % (A) 0.4 %; Eosinophils # (A) 0.05 10*3/uL (0.04-0.35); Eosinophils % (A) 0.6 %; HCT 28.3 % (37.2-46.3); Lymphocytes # (A) 1.49 10*3/uL (0.90-5.00); Lymphocytes % (A) 16.5 %; MCH 31.4 pg (27.0-32.0); MCHC 31.8 g/dL (32.0-37.0); MCV 98.6 fL (80.0-97.0); Monocytes # (A) 0.58 10*3/uL (0.20-1.00); Monocytes % (A) 6.4 %; Neutrophils # (A) 6.84 10*3/uL (1.80-7.70); Neutrophils % (A) 75.5 %; Platelet Count 256 10*3/uL (140-440); RBC 2.87 10*6/uL (4.10-5.20); RDW 14.6 % (11.5-14.5); WBC 9.05 10*3/uL (4.50-10.00)
[2024-10-19 05:51] LABS: HGB 9.0 g/dL (12.0-15.0)
--- NOTE | 2024-10-19 05:51 | ED ---
General Adult HPI - General Source: patient, EMS, RN notes reviewed, old records reviewed Mode of arrival: EMS Limitations: physical limitation <Josh Burch - Last Filed: 10/19/24 06:56> <Emmanuel Lozano - Last Filed: 10/19/24 08:20> - General Chief complaint: Nausea/Vomiting/Diarrhea Stated complaint: NV Time Seen by Provider: 10/19/24 04:40 - History of Present Illness Initial comments: 74-year-old female presents emergency department complaining of nausea and vomiting. Apparently patient has not had any bowel movement for numerous days. Had brown liquid emesis. Does have a history of abdominal surgeries in the past. States history of cholecystectomy. Also history of atrial fibrillation based on prior EKGs, heart failure, COPD, diabetes. Is on chronic oxygen. Was transferred here from [facility] on the [place] over concern for possible bowel obstruction. Presents for further evaluation at this time. (Josh Burch) - Related Data Home Medications Medication Instructions Recorded Confirmed Albuterol Inhaler [Ventolin Hfa 1 - 2 puff INHALATION RT-Q6H PRN 01/08/15 09/11/24 Inhaler] Ergocalciferol [Vitamin D2 (1250 1,250 mcg PO MO@89907/04/24 09/11/24 Mcg = 38992 Iu)] traZODone HCL [Desyrel] 25 mg PO HS@209907/04/24 09/11/24 Budesonide/Formoterol Fumarate 2 puff INHALATION RT-BID@09,209908/09/24 09/11/24 [Symbicort 160-4.5 Mcg Inhaler] Docusate [Colace] 100 mg PO DAILY@89908/09/24 09/11/24 Folic Acid 1 mg PO DAILY@89908/09/24 09/11/24 Glucerna Shake 1 can PO DAILY@89908/09/24 09/11/24 INSULIN LISPRO (HumaLOG) [HumaLOG] See Protocol SQ ACHS 08/09/24 09/11/24 Insulin Glargine (Lantus) [Lantus 35 unit SQ HS@209908/09/24 09/11/24 Vial] Ipratropium-Albuterol Nebulize 3 ml INHALATION RT-Q6H PRN 08/09/24 09/11/24 [Duoneb 0.5 mg-3 mg/3 ml Soln] Metoprolol Tartrate [Lopressor] 25 mg PO BID@0900,209908/09/24 09/11/24 Tamsulosin [Flomax] 0.4 mg PO HS@209908/29/24 09/11/24 Amoxic-Pot Clav 875-125Mg 1 tab PO BID@0900,209908/30/24 09/11/24 [Augmentin 875-125] Apixaban [Eliquis] 2.5 mg PO BID@0900,209909/11/24 09/11/24 Empagliflozin [Jardiance] 10 mg PO DAILY@0909/11/24 09/11/24 Magnesium Oxide [Mag-Ox] 400 mg PO TID@0900,1200,209909/11/24 09/11/24 Sennosides/Docusate Sodium [Senna 1 tab PO BID@0900,1700 09/11/24 09/11/24 Plus 8.6-50 mg Tablet] Previous Rx's Medication Instructions Recorded HYDROcodone/APAP 10-325MG [[place] 1 tab PO TID PRN #4 tab 09/19/24 10-325] Lactulose [Cephulac] 20 gm PO BID PRN #0 09/19/24 Nystatin 100,000 Unit/gm Powd 1 applic TOPICAL BID each 09/19/24 [Mycostatin Powder] cefuroxime axetiL [Ceftin] 500 mg PO BID 7 Days #14 tab 09/19/24 metroNIDAZOLE [Flagyl] 500 mg PO TID 7 Days #21 tab 09/19/24 Allergies Allergy/AdvReac Type Severity Reaction Status Date / Time Penicillins Allergy Rash/Hives Verified 10/19/24 04:17 Review of Systems ROS Other: All systems not noted in ROS Statement are negative. <Josh Burch - Last Filed: 10/19/24 06:56> ROS Other: All systems not noted in ROS Statement are negative. <Emmanuel Lozano - Last Filed: 10/19/24 08:20> ROS Statement: Those systems with pertinent positive or pertinent negative responses have been documented in the HPI. Review of Systems: CONST: Denies fever EYES: Denies blurry vision ENT: Denies nasal congestion C/V: Denies Chest pain RESP: Denies shortness of breath GI: Endorses abdominal pain : Denies dysuria SKIN: Denies rash. MSK: Denies joint pain. NEURO: Denies headache (Josh Burch) Past Medical History Past Medical History: Heart Failure, COPD, Diabetes Mellitus, GERD/Reflux, Hyperlipidemia, Thyroid Disorder Additional Past Medical History / Comment(s): home O2 3-6L per pt. History of Any Multi-Drug Resistant Organisms: None Reported Past Surgical History: Cholecystectomy Additional Past Surgical History / Comment(s): foot Left plate and pins Past Anesthesia/Blood Transfusion Reactions: No Reported Reaction Past Psychological History: Anxiety Smoking Status: Unknown if ever smoked Past Drug Use History: None Reported - Past Family History Mother Family Medical History: Hypertension Father Family Medical History: Cancer <Josh Burch - Last Filed: 10/19/24 06:56> General Exam Limitations: physical limitation <Josh Burch - Last Filed: 10/19/24 06:56> - General Exam Comments Initial Comments: General: Appears in no acute distress. HEAD: Normal with no signs of head trauma. EYES: PERRLA, EOMI, conjunctiva normal, no discharge. ENT: Hearing grossly intact, normal oropharynx. RESPIRATORY: Clear breath sounds bilaterally. No wheezes, rales, or rhonchi. C/V: Regular rate and rhythm. S1 and S2 auscultated, no edema, peripheral pulses 2+ and intact throughout ABD: Abdomen is soft, nondistended, with generalized tenderness to palpation. No rebound tenderness. No guarding. EXT: Normal range of motion, no obvious deformity SKIN: No rashes or lesions observed on exposed skin. NEURO: Alert and oriented x 4. (Josh Burch) Course Vital Signs 10/19/24 10/19/24 04:08 06:41 Temperature 98.8 F Pulse Rate 101 H 98 Respiratory 18 18 Rate Blood Pressure 107/87 114/76 O2 Sat by Pulse 99 92 L Oximetry Medical Decision Making - Lab Data Result diagrams: 10/19/24 05:02 10/19/24 05:02 - EKG Data -: EKG Interpreted by Nc <Josh Burch - Last Filed: 10/19/24 06:56> - Lab Data Result diagrams: 10/19/24 05:02 10/19/24 05:02 <Emmanuel Lozano - Last Filed: 10/19/24 08:20> - Medical Decision Making Was pt. sent in by a medical professional or institution ([facility], [facility], urgent care, hospital, or shelter...) When possible be specific @ -Transferred to [facility] on the [place]. Did you speak to anyone other than the patient for history (EMS, parent, family, police, friend...)? What history was obtained from this source @ -No Did you review nursing and triage notes (agree or disagree)? Why? @ -I reviewed and agree with nursing and triage notes Were old charts reviewed (outside hosp., previous admission, EMS record, old EKG, old radiological studies, urgent care reports/EKG's, shelter records)? Report findings @ -No old charts were reviewed Differential Diagnosis (chest pain, altered mental status, abdominal pain women, abdominal pain men, vaginal bleeding, weakness, fever, dyspnea, syncope, headache, dizziness, GI bleed, back pain, seizure, CVA, palpatations, mental health, musculoskeletal)? @ -Differential Abdominal Pain Women: Appendicitis, Cholecystitis, diverticulosis, ischemic bowel, pancreatitis, he patitis, UTI, gastroenteritis, AAA, incarcerated hernia, bowel obstruction, constipation, inflammatory bowel, hepatitis, peptic ulcer disease, splenic infarction, perforated viscus, vulvitis, ovarian torsion, PID, kidney stone, placenta abruption, this is not meant to be an all-inclusive list EKG interpreted by me (3pts min.). @ -As above X-rays interpreted by me (1pt min.). @ -None done CT interpreted by me (1pt min.). @ -Pending U/S interpreted by me (1pt. min.). @ -None done What testing was considered but not performed or refused? (CT, X-rays, U/S, labs)? Why? @ -None What meds were considered but not given or refused? Why? @ -None Did you discuss the management of the patient with other professionals (professionals i.e. [facility], [employer] [facility], lab, RT, psych nurse, forensic social worker, formulation chemist, teacher, credit risk officer, director case)? Give summary @ -No Was smoking cessation discussed for >3mins.? @ -No Was critical care preformed (if so, how long)? @ -No Were there social determinants of health that impacted care today? How? (Homelessness, low income, unemployed, alcoholism, drug addiction, transportation, low edu. Level, literacy, decrease access to med. care, prison, rehab)? @ -No Was there de-escalation of care discussed even if they declined (Discuss DNR or withdrawal of care, Hospice)? DNR status @ -No What co-morbidities impacted this encounter? (DM, HTN, Smoking, COPD, CAD, Cancer, CVA, ARF, Chemo, Hep., AIDS, mental health diagnosis, sleep apnea, morbid obesity)? @ -None Was patient admitted / discharged? Hospital course, mention meds given and route, prescriptions, significant lab abnormalities, going to OR and other pertinent info. @ -Patient transferred here from [facility] over concern for small bowel obstruction. We will obtain abdominal labs as well as CT abdomen pelvis. Patient was symptomatically treat with IV fluids, Zofran, morphine, Protonix. Patient was in agreement this plan. Patient is DNR per paperwork in her chart. Signed with Dr. Devine in July 2024. EKG shows no signs of acute ischemia.Labs returned remarkable for a chronic anemia with a hemoglobin of 9.0. Patient has no significant white blood cell count. At this time, urgency in my shift. CT abdomen pelvis is still pending at this time. Patient signed out to oncoming emergency department physician Dr. Lozano pending results of CT. Undiagnosed new problem with uncertain prognosis? @ -No Drug Therapy requiring intensive monitoring for toxicity (Heparin, Nitro, Ins ulin, Cardizem)? @ -No Were any procedures done? @ -No (Josh Burch) Was patient admitted / discharged? Hospital course, mention meds given and route, prescriptions, significant lab abnormalities, going to OR and other pertinent info. @ -Patient's CAT scan came back was interpreted by myself. CAT scan showed an distended bladder with some hydronephrosis. Patient had a Rock catheter placed and relieve the pressure. Patient had no more vomiting what was drinking water in the emergency department 1 to be discharged back to the shelter. Undiagnosed new problem with uncertain prognosis? @ -No Drug Therapy requiring intensive monitoring for toxicity (Heparin, Nitro, Insulin, Cardizem)? @ -No Were any procedures done? @ -No Diagnosis/symptom? @ -Urinary retention Acute, or Chronic, or Acute on Chronic? @ -Acute Uncomplicated (without systemic symptoms) or Complicated (systemic symptoms)? @ -Complicated Side effects of treatment? @ -No Exacerbation, Progression, or Severe Exacerbation? @ -No Poses a threat to life or bodily function? How? (Chest pain, [place], [place], pneumonia, PE, COPD, DKA, ARF, appy, cholecystitis, CVA, Diverticulitis, Homicidal, Suici damian, threat to staff... and all critical care pts) @ -No (Emmanuel Lozano) - Lab Data Lab Results 10/19/24 10/19/24 10/19/24 Range/Units 05:02 05:02 05:02 WBC 9.05 (4.50-10.00) 10*3/uL RBC 2.87 L (4.10-5.20) 10*6/uL Hgb 9.0 L D (12.0-15.0) g/dL Hct 28.3 L (37.2-46.3) % MCV 98.6 H (80.0-97.0) fL MCH 31.4 (27.0-32.0) pg MCHC 31.8 L (32.0-37.0) g/dL Plt Count 256 (140-440) 10*3/uL MPV 10.1 (9.5-12.2) fL Immature Gran % (Auto) 0.6 % Neutrophils % 75.5 % Lymphocytes % 16.5 % Monocytes % 6.4 % Eosinophils % 0.6 % Basophils % 0.4 % Immature Gran # 0.05 H (0.00-0.04) 10*3/uL Neutrophils # 6.84 (1.80-7.70) 10*3/uL Lymphocytes # 1.49 (0.90-5.00) 10*3/uL Monocytes # 0.58 (0.20-1.00) 10*3/uL Eosinophils # 0.05 (0.04-0.35) 10*3/uL Basophils # 0.04 (0.00-0.10) 10*3/uL PT 11.3 (10.0-12.5) sec INR 1.0 (<1.2) APTT 33.6 H (22.0-30.0) sec Sodium 140 (137-145) mmol/L Potassium 4.6 (3.5-5.1) mmol/L Chloride 94 L (98-107) mmol/L Carbon Dioxide 40 H (22-30) mmol/L Anion Gap 6 mmol/L BUN 41 H (7-17) mg/dL Creatinine 1.00 (0.52-1.04) mg/dL Est GFR (CKD-EPI)AfAm 66 (>60 ml/min/1.73 sqM) Est GFR (CKD-EPI)NonAf 57 (>60 ml/min/1.73 sqM) Glucose 119 H (74-99) mg/dL Plasma Lactic Acid Jean (0.7-2.0) mmol/L Calcium 9.1 (8.4-10.2) mg/dL Total Bilirubin 0.4 (0.2-1.3) mg/dL AST 20 (14-36) U/L ALT 11 (4-34) U/L Alkaline Phosphatase 132 H (38-126) U/L Total Protein 6.0 L (6.3-8.2) g/dL Albumin 3.1 L (3.5-5.0) g/dL Amylase 39 (30-110) U/L Lipase 43 (23-300) U/L Urine Color Urine Appearance (Clear) Urine pH (5.0-8.0) Ur Specific [place] (1.001-1.035) Urine Protein (Negative) Urine Glucose (UA) (Negative) Urine Ketones (Negative) Urine Blood (Negative) Urine Nitrite (Negative) Urine Bilirubin (Negative) Urine Urobilinogen (<2.0) mg/dL Ur Leukocyte Esterase (Negative) Urine RBC (0-5) /hpf Urine WBC (0-5) /hpf Urine WBC Clumps (None) /hpf Urine Bacteria (None) /hpf Urine Yeast (Budding) (None) /hpf 10/19/24 10/19/24 Range/Units 05:02 07:35 WBC (4.50-10.00) 10*3/uL RBC (4.10-5.20) 10*6/uL Hgb (12.0-15.0) g/dL Hct (37.2-46.3) % MCV (80.0-97.0) fL MCH (27.0-32.0) pg MCHC (32.0-37.0) g/dL Plt Count (140-440) 10*3/uL MPV (9.5-12.2) fL Immature Gran % (Auto) % Neutrophils % % Lymphocytes % % Monocytes % % Eosinophils % % Basophils % % Immature Gran # (0.00-0.04) 10*3/uL Neutrophils # (1.80-7.70) 10*3/uL Lymphocytes # (0.90-5.00) 10*3/uL Monocytes # (0.20-1.00) 10*3/uL Eosinophils # (0.04-0.35) 10*3/uL Basophils # (0.00-0.10) 10*3/uL PT (10.0-12.5) sec INR (<1.2) APTT (22.0-30.0) sec Sodium (137-145) mmol/L Potassium (3.5-5.1) mmol/L Chloride (98-107) mmol/L Carbon Dioxide (22-30) mmol/L Anion Gap mmol/L BUN (7-17) mg/dL Creatinine (0.52-1.04) mg/dL Est GFR (CKD-EPI)AfAm (>60 ml/min/1.73 sqM) Est GFR (CKD-EPI)NonAf (>60 ml/min/1.73 sqM) Glucose (74-99) mg/dL Plasma Lactic Acid Jean 1.0 (0.7-2.0) mmol/L Calcium (8.4-10.2) mg/dL Total Bilirubin (0.2-1.3) mg/dL AST (14-36) U/L ALT (4-34) U/L Alkaline Phosphatase (38-126) U/L Total Protein (6.3-8.2) g/dL Albumin (3.5-5.0) g/dL Amylase (30-110) U/L Lipase (23-300) U/L Urine Color Colorless Urine Appearance Cloudy H (Clear) Urine pH 7.0 (5.0-8.0) Ur Specific [place] 1.012 (1.001-1.035) Urine Protein Trace H (Negative) Urine Glucose (UA) 2+ H (Negative) Urine Ketones Negative (Negative) Urine Blood Small H (Negative) Urine Nitrite Negative (Negative) Urine Bilirubin Negative (Negative) Urine Urobilinogen <2.0 (<2.0) mg/dL Ur Leukocyte Esterase Large H (Negative) Urine RBC 20 H (0-5) /hpf Urine WBC >182 H (0-5) /hpf Urine WBC Clumps Many H (None) /hpf Urine Bacteria Rare H (None) /hpf Urine Yeast (Budding) Many H (None) /hpf - EKG Data EKG Comments: 12-lead Electrocardiogram Interpretation Note EKG was reviewed and interpreted by myself. 12-lead ECG performed at 0424 is interpreted by me as revealing atrial fibrillation at a rate of 96 beats per minute. [place] is normal. QRS durations 101 ms, QTc is 1432 ms.. There were no ST or T wave abnormalities to suggest myocardial ischemia or injury. R wave progression across the precordium was delayed. By my interpretation this EKG is non-diagnostic for acute ischemia. (Josh Burch) Disposition <Josh Burch - Last Filed: 10/19/24 06:56> Is patient prescribed a controlled substance at d/c from ED?: No Time of Disposition: 08:20 <Emmanuel Lozano - Last Filed: 10/19/24 08:20> Clinical Impression: Urinary retention Disposition: HOME SELF-CARE Instructions (If sedation given, give patient instructions): Acute Urinary Retention in Women (ED), Acute Nausea and Vomiting (ED) Referrals: Shalom Gray MD [Primary Care Provider] - 1-2 days
[2024-10-19 05:55] LABS: ALT 11 U/L (4-34); AST 20 U/L (14-36); African American GFR (CKD) 66 (>60 ml/min/1.73 sqM); Albumin 3.1 g/dL (3.5-5.0); Alkaline Phosphatase 132 U/L (38-126); Amylase 39 U/L (30-110); Anion Gap 6 mmol/L; Blood Urea Nitrogen 41 mg/dL (7-17); Calcium 9.1 mg/dL (8.4-10.2); Carbon Dioxide 40 mmol/L (22-30); Chloride 94 mmol/L (98-107); Glucose 119 mg/dL (74-99); Lipase 43 U/L (23-300); Non-African American GFR(CKD) 57 (>60 ml/min/1.73 sqM); Potassium 4.6 mmol/L (3.5-5.1); Sodium 140 mmol/L (137-145); Total Protein 6.0 g/dL (6.3-8.2)
[2024-10-19 06:03] LABS: INR 1.0 (<1.2); Partial Thromboplastin Time 33.6 sec (22.0-30.0); Prothrombin Time 11.3 sec (10.0-12.5)
--- NOTE | 2024-10-19 07:36 | CT ---
EXAMINATION TYPE: CT abdomen pelvis w con CT DLP: 1364.4 mGycm, Automated exposure control for dose reduction was used. DATE OF EXAM: 10/19/2024 7:23 AM COMPARISON: PET/CT 09/06/2024, CT abdomen and pelvis 07/15/2024 CLINICAL INDICATION:Female, 74 years old with history of abdominal pain.; ABD PAIN TECHNIQUE: Standard CT of the abdomen and pelvis following the administration of 100 cc of Isovue 3 00 IV contrast material. Coronal and sagittal reformats were performed. FINDINGS: LOWER CHEST: The visualized lung bases are relatively clear. Mild cardiomegaly. Small aortic valvular mitral anulus calcifications. Coronary arterial calcifications. ABDOMEN LIVER: Unremarkable GALLBLADDER AND BILE DUCTS: The gallbladder is surgically absent. No biliary duct dilatation. PANCREAS: Unremarkable. SPLEEN: Mildly enlarged measuring 15.6 cm in CC dimension. ADRENAL GLANDS: Unremarkable. KIDNEYS AND URETERS: Bilateral mild hydronephrosis without obstructing calculus. No renal calculi. Th e kidneys enhance symmetrically. PELVIS BLADDER: Moderately distended. REPRODUCTIVE: Unremarkable. ABDOMEN & PELVIS STOMACH AND BOWEL: Stomach and duodenum are unremarkable. Moderate distal colonic stool burden with a rectal fecaloma measuring up to 9.0 cm in transverse dimension. No definitive wall thickening or darci rounding inflammatory changes. The appendix is within normal limits. No evidence of bowel obstruction . Some incidental presacral edema. PERITONEUM: No evidence of pneumoperitoneum or free fluid. VASCULATURE: Moderate atherosclerotic calcifications are present throughout the abdominal aorta and i ts branches. No evidence of aortic aneurysm. Ectasia of the abdominal aorta measured 2.9 cm. MUSCULOSKELETAL: No acute osseous abnormalities. No aggressive osseous lesions. LYMPH NODES: No evidence for lymphadenopathy. SOFT TISSUE/ABDOMINAL WALL: Small fat filled umbilical hernia. IMPRESSION: 1. Moderately distended urinary bladder with bilateral mild hydronephrosis. No obstructing calculus. Hydronephrosis likely related to urinary bladder distention. Consider Rock catheter placement if pat ient cannot void. 2. Moderate distal colonic stool burden with a rectal fecaloma measuring up to 9.0 cm. No evidence fo r stercoral colitis. 3. Splenomegaly. [facility], , 10/19/2024 7:34 AM
[2024-10-19 07:55] LABS: Bacteria,Urine Rare /hpf; Bilirubin,Urine Negative (Negative); Blood,Urine Small (Negative); Budding Yeast,Urine Many /hpf; Color,Urine Colorless; Glucose,Urine (UA) 2+ (Negative); Ketones,Urine Negative (Negative); Leukocyte Esterase,Urine Large (Negative); Nitrite,Urine Negative (Negative); PH, Urine 7.0 (5.0-8.0); Protein,Urine Trace (Negative); RBC,Urine 20 /hpf (0-5); Specific Gravity,Urine 1.012 (1.001-1.035); Urobilinogen,Urine <2.0 mg/dL (<2.0); WBC,Urine >182 /hpf (0-5)
[2024-10-19 08:32] VITALS: BP 101/56; PULSE 93
== END 2024-10-19 08:32 | disposition home or self-care (01) ==
LOC: EC 04:05
DX: N13.30 Unspecified hydronephrosis (principal); Z88.0 Allergy status to penicillin
CPT/HCPCS: 36415; 93005; 80053; 82150; 83605; 83690; 85025; 85610; 85730; 81001; 74177; 99284; 96374; 96375 ×2; 96361; J2405; J2270; Q9967; J2470

== ENCOUNTER 2024-10-29 11:35 | Inpatient (IN) | payer MEDICARE ==
--- NOTE | 2024-10-29 12:52 | ED ---
Female Urogenital HPI - General Chief complaint: Urogenital Stated complaint: Urogenital Time Seen by Provider: 10/29/24 11:52 Source: patient, family, RN notes reviewed Mode of arrival: wheelchair Limitations: no limitations - History of Present Illness Initial comments: This is a 74-year-old female with history including DM, COPD, lung CA and heart failure presenting from oncology for urinary retention/oliguria x 3 weeks. Patient states she had her Rock catheter removed 3 weeks ago and has been having "dribbles" since that time without associated dysuria, mid back pain or fever/chills. Patient states she normally has low blood pressure but states her blood pressure is lower than usual today. Patient states she is bedbound and is unable to ambulate. Onset/Timin -: week(s) Location: suprapubic Radiation: non-radiating - Related Data Home Medications Medication Instructions Recorded Confirmed Albuterol Inhaler [Ventolin Hfa 2 puff INHALATION RT-Q6H PRN 01/08/15 10/29/24 Inhaler] Ergocalciferol [Vitamin D2 (1250 1,250 mcg PO MO 07/04/24 10/29/24 Mcg = 76176 Iu)] traZODone HCL [Desyrel] 25 mg PO HS@2100 07/04/24 10/29/24 Budesonide/Formoterol Fumarate 2 puff INHALATION RT-BID 08/09/24 10/29/24 [Symbicort 160-4.5 Mcg Inhaler] Docusate [Colace] 100 mg PO DAILY 08/09/24 10/29/24 Folic Acid 1 mg PO DAILY 08/09/24 10/29/24 Insulin Glargine (Lantus) [Lantus 35 unit SQ HS@2100 08/09/24 10/29/24 Vial] Ipratropium-Albuterol Nebulize 3 ml INHALATION RT-Q6H PRN 08/09/24 10/29/24 [Duoneb 0.5 mg-3 mg/3 ml Soln] Metoprolol Tartrate [Lopressor] 25 mg PO BID 08/09/24 10/29/24 Tamsulosin [Flomax] 0.4 mg PO HS 08/29/24 10/29/24 Empagliflozin [Jardiance] 10 mg PO DAILY 09/11/24 10/29/24 Magnesium Oxide [Mag-Ox] 400 mg PO TID 09/11/24 10/29/24 Sennosides/Docusate Sodium [Senna 1 tab PO BID 09/11/24 10/29/24 Plus 8.6-50 mg Tablet] Acetaminophen Tab [Tylenol] 650 mg PO Q6H PRN 10/29/24 10/29/24 Apixaban [Eliquis] 5 mg PO BID 10/29/24 10/29/24 Lactulose [Cephulac] 20 gm PO BID 10/29/24 10/29/24 Spironolactone [Aldactone] 12.5 mg PO DAILY 10/29/24 10/29/24 Torsemide [Demadex] 10 mg PO DAILY 10/29/24 10/29/24 Previous Rx's Medication Instructions Recorded HYDROcodone/APAP 10-325MG [[place] 1 tab PO TID PRN #4 tab 09/19/24 10-325] Allergies Allergy/AdvReac Type Severity Reaction Status Date / Time Penicillins Allergy Rash/Hives Verified 10/29/24 14:47 Review of Systems ROS Statement: Those systems with pertinent positive or pertinent negative responses have been documented in the HPI. ROS Other: All systems not noted in ROS Statement are negative. Past Medical History Past Medical History: Heart Failure, COPD, Diabetes Mellitus, GERD/Reflux, Hyperlipidemia, Thyroid Disorder Additional Past Medical History / Comment(s): home O2 3-6L per pt. History of Any Multi-Drug Resistant Organisms: None Reported Past Surgical History: Cholecystectomy Additional Past Surgical History / Comment(s): foot Left plate and pins Past Anesthesia/Blood Transfusion Reactions: No Reported Reaction Past Psychological History: Anxiety Smoking Status: Former smoker Past Alcohol Use History: None Reported Past Drug Use History: None Reported - Past Family History Mother Family Medical History: Hypertension Father Family Medical History: Cancer General Exam Limitations: no limitations General appearance: alert, in no apparent distress Head exam: Present: atraumatic, normocephalic, normal inspection Eye exam: Present: normal appearance, PERRL, EOMI. Absent: scleral icterus, conjunctival injection, periorbital swelling ENT exam: Present: normal exam, mucous membranes moist Neck exam: Present: normal inspection. Absent: tenderness, meningismus, lymphadenopathy Respiratory exam: Present: normal lung sounds bilaterally. Absent: respiratory distress, wheezes, rales, rhonchi, stridor Cardiovascular Exam: Present: regular rate, normal rhythm, normal heart sounds. Absent: systolic murmur, diastolic murmur, rubs, gallop, clicks GI/Abdominal exam: Present: soft, distended, tenderness (Mild suprapubic tenderness), normal bowel sounds, hernia (Umbilical, reducible and nontender). Absent: guarding, rebound, rigid Extremities exam: Present: normal inspection, full ROM, normal capillary refill. Absent: tenderness, pedal edema, joint swelling, calf tenderness Back exam: Present: normal inspection Neurological exam: Present: alert, oriented X3, CN II-XII intact Psychiatric exam: Present: normal affect, normal mood Skin exam: Present: warm, dry, intact, normal color. Absent: rash Course Vital Signs 10/29/24 10/29/24 10/29/24 11:36 12:03 13:14 Temperature 97.5 F L Pulse Rate 79 83 81 Respiratory 80 H 18 20 Rate Blood Pressure 76/50 86/60 87/58 O2 Sat by Pulse 100 95 99 Oximetry 10/29/24 10/29/24 14:06 15:25 Temperature Pulse Rate 76 77 Respiratory 20 20 Rate Blood Pressure 97/47 95/63 O2 Sat by Pulse 96 98 Oximetry Medical Decision Making - Medical Decision Making Was pt. sent in by a medical professional or institution ([facility], [employer]LECT[employer]ICAL PERSON, urgent care, hospital, or skilled nursing...) When possible be specific @ -No Did you speak to anyone other than the patient for history (EMS, parent, family, police, friend...)? What history was obtained from this source @ -No Did you review nursing and triage notes (agree or disagree)? Why? @ -I reviewed and agree with nursing and triage notes Were old charts reviewed (outside hosp., previous admission, EMS record, old EKG, old radiological studies, urgent care reports/EKG's, skilled nursing records)? Report findings @ -No old charts were reviewed Differential Diagnosis (chest pain, altered mental status, abdominal pain women, abdominal pain men, vaginal bleeding, weakness, fever, dyspnea, syncope, headache, dizziness, GI bleed, back pain, seizure, CVA, palpatations, mental health, musculoskeletal)? @ -Differential Abdominal Pain Women: Appendicitis, Cholecystitis, diverticulosis, ischemic bowel, pancreatitis, hepatitis, UTI, gastroenteritis, AAA, incarcerated hernia, bowel obstruction, constipation, inflammatory bowel, hepatitis, peptic ulcer disease, splenic infarction, perforated viscus, vulvitis, ovarian torsion, PID, kidney stone, placenta abruption, this is not meant to be an all-inclusive list EKG interpreted by me (3pts min.). @ -Not done X-rays interpreted by me (1pt min.). @ -None done CT interpreted by me (1pt min.). @ -None done U/S interpreted by me (1pt. min.). @ -None done What testing was considered but not performed or refused? (CT, X-rays, U/S, labs)? Why? @ -None What meds were considered but not given or refused? Why? @ -None Did you discuss the management of the patient with other professionals (professionals i.e. , PA, SH[employer] YARD ELECTRICAL PERSON, lab, RT, psych nurse, psychotherapist social worker, granite cutter, teacher, security officers and guards, field nurse case manager)? Give summary @ -Spoke to Dr. Gray regarding patient admission for hyponatremia and hypotension. Was smoking cessation discussed for >3mins.? @ -No Was critical care preformed (if so, how long)? @ -No Were there social determinants of health that impacted care today? How? (Homelessness, low income, unemployed, alcoholism, drug addiction, transportation, low edu. Level, literacy, decrease access to med. care, care home, rehab)? @ -No Was there de-escalation of care discussed even if they declined (Discuss DNR or withdrawal of care, Hospice)? DNR status @ -No What co-morbidities impacted this encounter? (DM, HTN, Smoking, COPD, CAD, Cancer, CVA, ARF, Chemo, Hep., AIDS, mental health diagnosis, sleep apnea, morbid obesity)? @ -None Was patient admitted / discharged? Hospital course, mention meds given and route, prescriptions, significant lab abnormalities, going to OR and other pertinent info. @ -Patient initially provided IV normal saline. Bladder scan between 200-300 mL . Rock catheter initiated by nurse. Lab work notable for stable anemia hemoglobin 9.0, sodium 122, creatinine 1.31 (0.8 in September 2024), BUN 56, GFR 41, calcium 8.2, glucose 121, stable BNP 2380. WBC 9.04. Urine notable for WBC with occasional bacteria, hematuria, ketonuria and proteinuria. Empiric IV Rocephin provided due to potential UTI and hypotension. Spoke to Dr. Gray regarding patient admission for hyponatremia and hypotension. Discussed patient with Dr. Burch. Advised by attending to initiate second normal saline liter bolus with maintenance fluids afterwards due to hypotension. Undiagnosed new problem with uncertain prognosis? @ -No Drug Therapy requiring intensive monitoring for toxicity (Heparin, Nitro, Insulin, Cardizem)? @ -No Were any procedures done? @ -No Diagnosis/symptom? @ -Hyponatremia, UTI, hypotension Acute, or Chronic, or Acute on Chronic? @ -Acute Uncomplicated (without systemic symptoms) or Complicated (systemic symptoms)? @ -Complicated Side effects of treatment? @ -No Exacerbation, Progression, or Severe Exacerbation? @ -No Poses a threat to life or bodily function? How? (Chest pain, [place], [place], pneumonia, PE, COPD, DKA, ARF, appy, cholecystitis, CVA, Diverticulitis, Homicidal, Suicidal, threat to staff... and all critical care pts) @ -Hyponatremia - Lab Data Result diagrams: 10/29/24 12:52 10/29/24 12:52 Lab Results 10/29/24 10/29/24 10/29/24 Range/Units 12:52 12:52 12:52 WBC 9.04 (4.50-10.00) 10*3/uL RBC 2.87 L (4.10-5.20) 10*6/uL Hgb 9.0 L (12.0-15.0) g/dL Hct 27.2 L (37.2-46.3) % MCV 94.8 (80.0-97.0) fL MCH 31.4 (27.0-32.0) pg MCHC 33.1 (32.0-37.0) g/dL Plt Count 237 (140-440) 10*3/uL MPV 10.6 (9.5-12.2) fL Immature Gran % (Auto) 0.3 % Neutrophils % 80.3 % Lymphocytes % 13.2 % Monocytes % 4.8 % Eosinophils % 1.1 % Basophils % 0.3 % Immature Gran # 0.03 (0.00-0.04) 10*3/uL Neutrophils # 7.26 (1.80-7.70) 10*3/uL Lymphocytes # 1.19 (0.90-5.00) 10*3/uL Monocytes # 0.43 (0.20-1.00) 10*3/uL Eosinophils # 0.10 (0.04-0.35) 10*3/uL Basophils # 0.03 (0.00-0.10) 10*3/uL Sodium 122 L (137-145) mmol/L Potassium 4.5 (3.5-5.1) mmol/L Chloride 81 L (98-107) mmol/L Carbon Dioxide 30 (22-30) mmol/L Anion Gap 11 mmol/L BUN 56 H (7-17) mg/dL Creatinine 1.31 H (0.52-1.04) mg/dL Est GFR (CKD-EPI)AfAm 47 (>60 ml/min/1.73 sqM) Est GFR (CKD-EPI)NonAf 41 (>60 ml/min/1.73 sqM) Glucose 121 H (74-99) mg/dL Plasma Lactic Acid Jean 0.8 (0.7-2.0) mmol/L Calcium 8.2 L (8.4-10.2) mg/dL Total Bilirubin 0.7 (0.2-1.3) mg/dL AST 20 (14-36) U/L ALT 11 (4-34) U/L Alkaline Phosphatase 138 H (38-126) U/L NT-Pro-B Natriuret Pep pg/mL Total Protein 6.0 L (6.3-8.2) g/dL Albumin 3.2 L (3.5-5.0) g/dL Urine Color Urine Appearance (Clear) Urine pH (5.0-8.0) Ur Specific [place] (1.001-1.035) Urine Protein (Negative) Urine Glucose (UA) (Negative) Urine Ketones (Negative) Urine Blood (Negative) Urine Nitrite (Negative) Urine Bilirubin (Negative) Urine Urobilinogen (<2.0) mg/dL Ur Leukocyte Esterase (Negative) Urine RBC (0-5) /hpf Urine WBC (0-5) /hpf Urine Bacteria (None) /hpf Urine Mucus (None) /hpf Urine Yeast (Budding) (None) /hpf 10/29/24 10/29/24 Range/Units 12:52 13:14 WBC (4.50-10.00) 10*3/uL RBC (4.10-5.20) 10*6/uL Hgb (12.0-15.0) g/dL Hct (37.2-46.3) % MCV (80.0-97.0) fL MCH (27.0-32.0) pg MCHC (32.0-37.0) g/dL Plt Count (140-440) 10*3/uL MPV (9.5-12.2) fL Immature Gran % (Auto) % Neutrophils % % Lymphocytes % % Monocytes % % Eosinophils % % Basophils % % Immature Gran # (0.00-0.04) 10*3/uL Neutrophils # (1.80-7.70) 10*3/uL Lymphocytes # (0.90-5.00) 10*3/uL Monocytes # (0.20-1.00) 10*3/uL Eosinophils # (0.04-0.35) 10*3/uL Basophils # (0.00-0.10) 10*3/uL Sodium (137-145) mmol/L Potassium (3.5-5.1) mmol/L Chloride (98-107) mmol/L Carbon Dioxide (22-30) mmol/L Anion Gap mmol/L BUN (7-17) mg/dL Creatinine (0.52-1.04) mg/dL Est GFR (CKD-EPI)AfAm (>60 ml/min/1.73 sqM) Est GFR (CKD-EPI)NonAf (>60 ml/min/1.73 sqM) Glucose (74-99) mg/dL Plasma Lactic Acid Jean (0.7-2.0) mmol/L Calcium (8.4-10.2) mg/dL Total Bilirubin (0.2-1.3) mg/dL AST (14-36) U/L ALT (4-34) U/L Alkaline Phosphatase (38-126) U/L NT-Pro-B Natriuret Pep 2380 pg/mL Total Protein (6.3-8.2) g/dL Albumin (3.5-5.0) g/dL Urine Color Yellow Urine Appearance Turbid H (Clear) Urine pH 8.0 (5.0-8.0) Ur Specific [place] 1.016 (1.001-1.035) Urine Protein 2+ H (Negative) Urine Glucose (UA) Negative (Negative) Urine Ketones 1+ H (Negative) Urine Blood Small H (Negative) Urine Nitrite Negative (Negative) Urine Bilirubin Negative (Negative) Urine Urobilinogen <2.0 (<2.0) mg/dL Ur Leukocyte Esterase Large H (Negative) Urine RBC 35 H (0-5) /hpf Urine WBC >182 H (0-5) /hpf Urine Bacteria Occasional H (None) /hpf Urine Mucus Rare H (None) /hpf Urine Yeast (Budding) Few H (None) /hpf Disposition Clinical Impression: Urinary retention, Hyponatremia, Hypotension, UTI (urinary tract infection) Disposition: ADMITTED IP TO THIS [facility] Condition: Fair Time of Disposition: 13:47 Decision Date: 10/29/24 Decision Time: 13:47
[2024-10-29] MEDS: SODIUM CHLORIDE 0.9% 1,000 ML IV STA ×3 (12:57→15:24)
[2024-10-29 13:11] LABS: Basophils # (A) 0.03 10*3/uL (0.00-0.10); Basophils % (A) 0.3 %; Eosinophils # (A) 0.10 10*3/uL (0.04-0.35); Eosinophils % (A) 1.1 %; HCT 27.2 % (37.2-46.3); HGB 9.0 g/dL (12.0-15.0); Lymphocytes # (A) 1.19 10*3/uL (0.90-5.00); Lymphocytes % (A) 13.2 %; MCH 31.4 pg (27.0-32.0); MCHC 33.1 g/dL (32.0-37.0); MCV 94.8 fL (80.0-97.0); Monocytes # (A) 0.43 10*3/uL (0.20-1.00); Monocytes % (A) 4.8 %; Neutrophils # (A) 7.26 10*3/uL (1.80-7.70); Neutrophils % (A) 80.3 %; Platelet Count 237 10*3/uL (140-440); RBC 2.87 10*6/uL (4.10-5.20); RDW 14.6 % (11.5-14.5); WBC 9.04 10*3/uL (4.50-10.00)
[2024-10-29 13:30] LABS: ALT 11 U/L (4-34); AST 20 U/L (14-36); African American GFR (CKD) 47 (>60 ml/min/1.73 sqM); Albumin 3.2 g/dL (3.5-5.0); Alkaline Phosphatase 138 U/L (38-126); Anion Gap 11 mmol/L; Blood Urea Nitrogen 56 mg/dL (7-17); Calcium 8.2 mg/dL (8.4-10.2); Carbon Dioxide 30 mmol/L (22-30); Chloride 81 mmol/L (98-107); Glucose 121 mg/dL (74-99); Non-African American GFR(CKD) 41 (>60 ml/min/1.73 sqM); Potassium 4.5 mmol/L (3.5-5.1); Sodium 122 mmol/L (137-145); Total Protein 6.0 g/dL (6.3-8.2)
--- NOTE | 2024-10-29 13:55 | XR ---
EXAMINATION TYPE: XR chest 2V DATE OF EXAM: 10/29/2024 1:51 PM COMPARISON: 09/18/2024 CLINICAL INDICATION: Female, 74 years old with history of Bnp/ hx chf, hypotensive, TECHNIQUE: XR chest 2V view(s) obtained. FINDINGS: The heart size is normal. The pulmonary vasculature is normal. An oval density at the right hilar region currently measures 3.3 cm which is diminished in size from the comparison. Some mild infiltrate may be along the left costophrenic angle. IMPRESSION: 1. Right perihilar density slightly diminished in size from comparison. Continued follow-up is recomm ended. [facility], Workstation: [email or web address], 10/29/2024 1:53 PM
[2024-10-29 14:08] LABS: Bacteria,Urine Occasional /hpf; Bilirubin,Urine Negative (Negative); Blood,Urine Small (Negative); Budding Yeast,Urine Few /hpf; Color,Urine Yellow; Glucose,Urine (UA) Negative (Negative); Ketones,Urine 1+ (Negative); Leukocyte Esterase,Urine Large (Negative); Mucus,Urine Rare /hpf; Nitrite,Urine Negative (Negative); PH, Urine 8.0 (5.0-8.0); Protein,Urine 2+ (Negative); RBC,Urine 35 /hpf (0-5); Specific Gravity,Urine 1.016 (1.001-1.035); Urobilinogen,Urine <2.0 mg/dL (<2.0); WBC,Urine >182 /hpf (0-5)
[2024-10-29] MEDS ORDERED: ONDANSETRON 4 MG/2 ML VIAL IVP PRN (14:14)
[2024-10-29] MEDS ORDERED: NALOXONE 0.4 MG/ML 1 ML VIAL IV PRN (14:14)
[2024-10-29] MEDS ORDERED: IPRATROPIUM-ALBUTEROL 3 ML NEB INHALATION PRN (14:16)
[2024-10-29] MEDS: SENNOSIDES-DOCUSATE SODIUM 1 EACH TAB PO SCH (17:53)
[2024-10-29 17:54] LABS: Glucose,Whole Blood 105 mg/dL (70-110)
[2024-10-29] MEDS: INSULIN LISPRO (HumaLOG) 100 UNIT/ML 10 mL VL SQ SCH (18:02)
--- NOTE | 2024-10-29 18:07 | P.HPIM ---
History of Present Illness H&P Date: 10/29/24 Ajay Robertson, is a 74-year-old female who presented to [facility] emergency room with a chief complaint of urinary retention, patient stated that she had a Rock catheter up to 3 weeks ago, after Rock catheter was discontinued patient had urine incontinence with a small amount of urine " dribbling " she was having suprapubic fullness and pain, evaluation in the emergency room revealed evidence of urinary retention and urinary tract infection, she was started on IV ceftriaxone in the emergency room and was admitted to medical floor. Evaluation in the emergency room also revealed evidence of hypotension and hyponatremia blood pressure on presentation was 76/50 and sodium was down to 122. Patient has a prolonged past medical history including history of hypertension, hyperlipidemia, advanced COPD, chronic hypoxic respiratory failure requiring home oxygen, diabetes mellitus type 2, congestive heart failure, and history of recently diagnosed lung cancer. Past Medical History Past Medical History: Heart Failure, COPD, Diabetes Mellitus, GERD/Reflux, Hyperlipidemia, Thyroid Disorder Additional Past Medical History / Comment(s): home O2 3-6L per pt. History of Any Multi-Drug Resistant Organisms: None Reported Past Surgical History: Cholecystectomy Additional Past Surgical History / Comment(s): foot Left plate and pins Past Anesthesia/Blood Transfusion Reactions: No Reported Reaction Past Psychological History: Anxiety Smoking Status: Former smoker Past Alcohol Use History: None Reported Past Drug Use History: None Reported - Past Family History Mother Family Medical History: Hypertension Father Family Medical History: Cancer Medications and Allergies Home Medications Medication Instructions Recorded Confirmed Type Albuterol Inhaler [Ventolin Hfa 2 puff INHALATION RT-Q6H PRN 01/08/15 10/29/24 History Inhaler] Ergocalciferol [Vitamin D2 (1250 1,250 mcg PO MO 07/04/24 10/29/24 History Mcg = 35966 Iu)] traZODone HCL [Desyrel] 25 mg PO HS@2100 07/04/24 10/29/24 History Budesonide/Formoterol Fumarate 2 puff INHALATION RT-BID 08/09/24 10/29/24 History [Symbicort 160-4.5 Mcg Inhaler] Docusate [Colace] 100 mg PO DAILY 08/09/24 10/29/24 History Folic Acid 1 mg PO DAILY 08/09/24 10/29/24 History Insulin Glargine (Lantus) [Lantus 35 unit SQ HS@2100 08/09/24 10/29/24 History Vial] Ipratropium-Albuterol Nebulize 3 ml INHALATION RT-Q6H PRN 08/09/24 10/29/24 History [Duoneb 0.5 mg-3 mg/3 ml Soln] Metoprolol Tartrate [Lopressor] 25 mg PO BID 08/09/24 10/29/24 History Tamsulosin [Flomax] 0.4 mg PO HS 08/29/24 10/29/24 History Empagliflozin [Jardiance] 10 mg PO DAILY 09/11/24 10/29/24 History Magnesium Oxide [Mag-Ox] 400 mg PO TID 09/11/24 10/29/24 History Sennosides/Docusate Sodium [Senna 1 tab PO BID 09/11/24 10/29/24 History Plus 8.6-50 mg Tablet] HYDROcodone/APAP 10-325MG [[place] 1 tab PO TID PRN #4 tab 09/19/24 10/29/24 Rx 10-325] Acetaminophen Tab [Tylenol] 650 mg PO Q6H PRN 10/29/24 10/29/24 History Apixaban [Eliquis] 5 mg PO BID 10/29/24 10/29/24 History Lactulose [Cephulac] 20 gm PO BID 10/29/24 10/29/24 History Spironolactone [Aldactone] 12.5 mg PO DAILY 10/29/24 10/29/24 History Torsemide [Demadex] 10 mg PO DAILY 10/29/24 10/29/24 History Allergies Allergy/AdvReac Type Severity Reaction Status Date / Time Penicillins Allergy Rash/Hives Verified 10/29/24 14:47 Physical Exam Vitals: Vital Signs Temp Pulse Resp BP Pulse Ox 10/29/24 15:25 77 20 95/63 98 10/29/24 14:06 76 20 97/47 96 10/29/24 13:14 81 20 87/58 99 10/29/24 12:03 83 18 86/60 95 10/29/24 11:36 97.5 F L 79 80 H 76/50 100 Intake and Output 10/29/24 10/29/2425 06:59 14:59 22:59 Other: Weight 80.739 kg In general patient is alert and oriented x 3 in no distress HEENT head normocephalic and atraumatic Neck is supple no JVD no goiter no lymphadenopathy no carotid bruit Chest examination is clear to auscultation no crackles no wheezing Cardiac exam reveals regular heart sounds S1 and S2 no gallops no murmurs Abdomen is soft nontender no organomegaly with normal bowel sounds Extremity exam reveals 3+ edema no cyanosis or clubbing Neurological examination reveals no gross focal deficits Results CBC & Chem 7: 10/29/24 12:52 10/29/24 12:52 Labs: Abnormal Lab Results - Last 24 Hours (Table) 10/29/24 10/29/24 10/29/24 Range/Units 12:52 12:52 13:14 RBC 2.87 L (4.10-5.20) 10*6/uL Hgb 9.0 L (12.0-15.0) g/dL Hct 27.2 L (37.2-46.3) % Sodium 122 L (137-145) mmol/L Chloride 81 L (98-107) mmol/L BUN 56 H (7-17) mg/dL Creatinine 1.31 H (0.52-1.04) mg/dL Glucose 121 H (74-99) mg/dL Calcium 8.2 L (8.4-10.2) mg/dL Alkaline Phosphatase 138 H (38-126) U/L Total Protein 6.0 L (6.3-8.2) g/dL Albumin 3.2 L (3.5-5.0) g/dL Urine Appearance Turbid H (Clear) Urine Protein 2+ H (Negative) Urine Ketones 1+ H (Negative) Urine Blood Small H (Negative) Ur Leukocyte Esterase Large H (Negative) Urine RBC 35 H (0-5) /hpf Urine WBC >182 H (0-5) /hpf Urine Bacteria Occasional H (None) /hpf Urine Mucus Rare H (None) /hpf Urine Yeast (Budding) Few H (None) /hpf Assessment and Plan Plan: Urinary tract infection Sepsis, with hypotension Severe hyponatremia Urinary retention Acute kidney injury with elevated BUN and creatinine Underlying history of advanced COPD Underlying history of hypertension Underlying history of hyperlipidemia Underlying history of chronic hypoxic respiratory failure maintained on home oxygen Underlying history of diabetes mellitus Underlying history of degenerative disc disease and osteoarthritis At this time patient was seen and examined Home medications reviewed and reordered Patient was started on IV ceftriaxone and IV fluid in the emergency room Blood culture and urine culture ordered Infectious disease consultation requested Will follow closely
[2024-10-29] MEDS: SYMBICORT 160-4.5 MCG INHALER INHALATION SCH (19:45)
[2024-10-29 20:08] LABS: Glucose,Whole Blood 106 mg/dL (70-110)
[2024-10-29] MEDS: HYDROmorphone 2 MG TAB PO PRN (20:47)
[2024-10-29] MEDS: APIXABAN 5 MG TAB PO SCH (20:49)
[2024-10-29] MEDS: MAGNESIUM OXIDE 400 MG TAB PO SCH (20:49)
[2024-10-29] MEDS: TAMSULOSIN 0.4 MG CAP.ER.24H PO SCH (20:50)
[2024-10-29] MEDS: METOPROLOL TARTRATE 25 MG TAB PO SCH (20:50)
[2024-10-29] MEDS: INSULIN GLARGINE (LANTUS) 100 UNIT/ML SYR SQ SCH (20:51)
[2024-10-30 06:55] LABS: Glucose,Whole Blood 36 mg/dL (70-110)
[2024-10-30 06:55] LABS: Glucose,Whole Blood 32 mg/dL (70-110)
[2024-10-30] MEDS: DEXTROSE 50% SYRINGE 50 ML IVP PRN (07:09)
[2024-10-30 07:25] LABS: Glucose,Whole Blood 180 mg/dL (70-110)
[2024-10-30] MEDS: DOCUSATE 100 MG CAP PO SCH (08:56)
[2024-10-30] MEDS: DAPAGLIFLOZIN PROPANEDIOL 5 MG TABLET PO SCH (09:03)
[2024-10-30 11:06] VITALS: BMI 31.5
--- NOTE | 2024-10-30 11:38 | CDI ---
Documentation Clarification Form Date: 10/30/2024 11:21:28 AM From: Jessica Jules RN CDIS Phone: [phone] Admit Date: 10/29/2024 03:54:00 PM Patient Name: Ajay Robertson Visit Number: [id number] Discharge Date: ATTENTION: The Clinical Documentation Specialists (CDI) and [facility] Coding Staff appreciate your assistance in clarifying documentation. Please respond to the clarification below the line at the bottom and electronically sign. The CDI & [facility] Coding staff will review the response and follow-up if needed. Please note: Queries are made part of the Legal Health Record. If you have any questions, please contact the author of this message via ITS. Doctor: Shalom rGay UTI is documented 10/29, HP and patient had a logan catheter removed three weeks ago and has had urinary retention and oliguria for three weeks, 10/29, ED note. Additional clarification regarding the etiology of the UTI is requested. History/Risk Factors: 74 year old female presents to the ED for urinary retention oliguria x 3 weeks, pt had logan removed 3 weeks ago. Medical history : bedbound, unable to ambulate, HTN, HLD, DM and chronic respiratory failure. 10/29 ED NOTE Clinical Indicators: Urinalysis, 10/29: Yellow, Turbid, Protein 2+, Ketones 1+; Blood small; Leukocyte Esterase large; RBC 35; WBC >182; Bacteria Occasional; Mucus Rare Lab results, 10/29: Wbc 9.04 Treatment: 10/29 Ceftriaxone IVPB x 1; Please clarify the etiology of the UTI, if known: [ ] Logan catheter [ xxx ] UTI not related to catheter [ ] Other condition, please specify [ ] Unable to determine (Template Last Revised: June 2020) MTDD
--- NOTE | 2024-10-30 11:48 | CDI ---
Documentation Clarification Form Date: 10/30/2024 11:40:25 AM From: Jessica Jules RN CDIS Phone: [phone] Admit Date: 10/29/2024 03:54:00 PM Patient Name: Ajay Robertson Visit Number: [id number] Discharge Date: ATTENTION: The Clinical Documentation Specialists (CDI) and [facility] Coding Staff appreciate your assistance in clarifying documentation. Please respond to the clarification below the line at the bottom and electronically sign. The CDI & [facility] Coding staff will review the response and follow-up if needed. Please note: Queries are made part of the Legal Health Record. If you have any questions, please contact the author of this message via ITS. Doctor: Shalom Gray Sepsis is documented 10/29, HP which may lack sufficient clinical evidence/support in the medical record. Additional clarification is requested. History/Risk Factors: 74 year old female presents to the ED for urinary retention oliguria x 3 weeks, pt had logan removed 3 weeks ago. Medical history: bedbound, unable to ambulate, HTN, HLD, DM and chronic respiratory failure. 10/29 ED Note Clinical Indicators: VSS, 10/29 11:36: B/P 76/50, RR 80, HR 79, Temp 97.5 F Oral, SpO2 100% 2L nc VSS, 10/29 12:03: B/P 86/60, RR 18, HR 83, SpO2 95% 3L nc Urinalysis, 10/29: Yellow, Turbid, Protein 2+, Ketones 1+; Blood small; Leukocyte Esterase large; RBC 35; WBC >182; Bacteria Occasional; Mucus Rare Lab results, 10/29: Wbc 9.04 Treatment: 10/29 Ceftriaxone IVPB x 1; 10/29 0.9NS 2L IVPB After work up and study, please clarify which diagnosis is most appropriate? [ ] Sepsis is ruled out. The patient had a localized infection without systemic response. [ ] Sepsis was initially suspected, but subsequent clinical findings did not support the diagnosis, and it has been ruled out. [ xxx ] Sepsis is clinically supported as evidenced by these additional clinical indicators: positive blood culture [ ] Other, please specify [ ] Unable to determine (Template Last Reviewed: April 2023) SILVINA
--- NOTE | 2024-10-30 12:31 | P.PN ---
Subjective Progress Note Date: 10/30/24 Ajay Robertson, is a 74-year-old female who presented to [facility] emergency room with a chief complaint of urinary retention, patient stated that she had a Rock catheter up to 3 weeks ago, after Rock catheter was discontinued patient had urine incontinence with a small amount of urine " dribbling " she was having suprapubic fullness and pain, evaluation in the emergency room revealed evidence of urinary retention and urinary tract infection, she was started on IV ceftriaxone in the emergency room and was admitted to medical floor. Evaluation in the emergency room also revealed evidence of hypotension and hyponatremia blood pressure on presentation was 76/50 and sodium was down to 122. Patient has a prolonged past medical history including history of hypertension, hyperlipidemia, advanced COPD, chronic hypoxic respiratory failure requiring home oxygen, diabetes mellitus type 2, congestive heart failure, and history of recently diagnosed lung cancer. On 10/30/2024 patient is alert and oriented x 3. Current vital signs temp 97.1, heart rate 74, respiratory rate 15, blood pressure 97/63 with pulse ox 100% on room air. Infectious disease services consulted. Repeat sodium level has been ordered. Rock catheter in place. Ultrasound of renal bladder and kidneys orde red. Urine and blood cultures ordered Objective - Vital Signs Vital signs: Vital Signs Temp 97.1 F L 10/30/24 02:35 Pulse 78 10/30/24 08:00 Resp 18 10/30/24 08:00 BP 91/56 10/30/24 08:00 Pulse Ox 95 10/30/24 08:00 FiO2 Intake & Output 10/29/24 10/30/24 10/30/24 18:59 06:59 18:59 Output Total 600 Balance -600 Weight 80.739 kg 80.739 kg 80.739 kg Output: Urine 600 Other: Voiding Method Indwelling Catheter # Voids 1 - Exam In general patient is alert and oriented x 3 in no distress HEENT head normocephalic and atraumatic Neck is supple no JVD no goiter no lymphadenopathy no carotid bruit Chest examination is clear to auscultation no crackles no wheezing Cardiac exam reveals regular heart sounds S1 and S2 no gallops no murmurs Abdomen is soft nontender no organomegaly with normal bowel sounds Extremity exam reveals 3+ edema no cyanosis or clubbing Neurological examination reveals no gross focal deficits - Labs CBC & Chem 7: 10/29/24 12:52 10/29/24 12:52 Labs: Abnormal Lab Results - Last 24 Hours (Table) 10/29/24 10/29/24 10/29/24 Range/Units 12:52 12:52 13:14 RBC 2.87 L (4.10-5.20) 10*6/uL Hgb 9.0 L (12.0-15.0) g/dL Hct 27.2 L (37.2-46.3) % Sodium 122 L (137-145) mmol/L Chloride 81 L (98-107) mmol/L BUN 56 H (7-17) mg/dL Creatinine 1.31 H (0.52-1.04) mg/dL Glucose 121 H (74-99) mg/dL POC Glucose (mg/dL) (70-110) mg/dL Calcium 8.2 L (8.4-10.2) mg/dL Alkaline Phosphatase 138 H (38-126) U/L Total Protein 6.0 L (6.3-8.2) g/dL Albumin 3.2 L (3.5-5.0) g/dL Urine Appearance Turbid H (Clear) Urine Protein 2+ H (Negative) Urine Ketones 1+ H (Negative) Urine Blood Small H (Negative) Ur Leukocyte Esterase Large H (Negative) Urine RBC 35 H (0-5) /hpf Urine WBC >182 H (0-5) /hpf Urine Bacteria Occasional H (None) /hpf Urine Mucus Rare H (None) /hpf Urine Yeast (Budding) Few H (None) /hpf 10/30/24 10/30/24 10/30/24 Range/Units 06:52 06:53 07:23 RBC (4.10-5.20) 10*6/uL Hgb (12.0-15.0) g/dL Hct (37.2-46.3) % Sodium (137-145) mmol/L Chloride (98-107) mmol/L BUN (7-17) mg/dL Creatinine (0.52-1.04) mg/dL Glucose (74-99) mg/dL POC Glucose (mg/dL) 32 L* 36 L* 180 H (70-110) mg/dL Calcium (8.4-10.2) mg/dL Alkaline Phosphatase (38-126) U/L Total Protein (6.3-8.2) g/dL Albumin (3.5-5.0) g/dL Urine Appearance (Clear) Urine Protein (Negative) Urine Ketones (Negative) Urine Blood (Negative) Ur Leukocyte Esterase (Negative) Urine RBC (0-5) /hpf Urine WBC (0-5) /hpf Urine Bacteria (None) /hpf Urine Mucus (None) /hpf Urine Yeast (Budding) (None) /hpf Assessment and Plan Assessment: Urinary tract infection Sepsis, with hypotension Severe hyponatremia Urinary retention Acute kidney injury with elevated BUN and creatinine Underlying history of advanced COPD Underlying history of hypertension Underlying history of hyperlipidemia Underlying history of chronic hypoxic respiratory failure maintained on home oxygen Underlying history of diabetes mellitus Underlying history of degenerative disc disease and osteoarthritis At this time patient was seen and examined Home medications reviewed and reordered Patient was started on IV ceftriaxone and IV fluid in the emergency room Blood culture and urine culture ordered Infectious disease consultation requested Will follow closely
[2024-10-30 12:44] LABS: Glucose,Whole Blood 51 mg/dL (70-110)
--- NOTE | 2024-10-30 13:09 | US ---
EXAMINATION TYPE: US kidneys/renal and bladder DATE OF EXAM: 10/30/2024 COMPARISON: CT CLINICAL INDICATION: Female, 74 years old with history of urinary retention; Retention TECHNIQUE: Grayscale imaging of the bilateral kidneys and urinary bladder: FINDINGS: EXAM MEASUREMENTS: Right Kidney: 9.1 x 5.1 x 5.0 cm Left Kidney: 11.2 x 5.0 x 4.8 cm Right Kidney: No evidence of hydro Left Kidney: No evidence of hydro Bladder: Pt has cath in place There is no evidence for hydronephrosis at this point in time. No nephrolithiasis is seen. No juan ramon s are identified. The urinary bladder is anechoic. IMPRESSION: 1. Unremarkable renal ultrasound [facility], Workstation: [facility], 10/30/2024 1:07 PM
[2024-10-30 13:15] LABS: Glucose,Whole Blood 63 mg/dL (70-110)
[2024-10-30 13:29] LABS: ALT 10 U/L (4-34); AST 20 U/L (14-36); African American GFR (CKD) 66 (>60 ml/min/1.73 sqM); Albumin 2.8 g/dL (3.5-5.0); Albumin/Globulin Ratio 1.1; Alkaline Phosphatase 117 U/L (38-126); Anion Gap 4 mmol/L; Blood Urea Nitrogen 47 mg/dL (7-17); Calcium 7.5 mg/dL (8.4-10.2); Carbon Dioxide 31 mmol/L (22-30); Chloride 94 mmol/L (98-107); Globulin 2.5 g/dL; Non-African American GFR(CKD) 57 (>60 ml/min/1.73 sqM); Potassium 3.9 mmol/L (3.5-5.1); Sodium 129 mmol/L (137-145); Total Protein 5.3 g/dL (6.3-8.2)
[2024-10-30 13:40] LABS: Glucose 46 mg/dL (74-99)
[2024-10-30 14:35] LABS: Glucose,Whole Blood 70 mg/dL (70-110)
[2024-10-30] MEDS: IOPAMIDOL CONTRAST (ORAL USE) VIAL PO PRN (15:05)
--- NOTE | 2024-10-30 16:39 | CT ---
EXAMINATION TYPE: CT abdomen wo con CT DLP: 749.4 mGycm, Automated exposure control for dose reduction was used. DATE OF EXAM: 10/30/2024 4:25 PM COMPARISON: CT abdomen pelvis 10/19/2024, PET/CT 09/06/2024 CLINICAL INDICATION:Female, 74 years old with history of abdominal pain; abdominal pain TECHNIQUE: Standard CT of the abdomen following the administration of oral contrast. Coronal and sa gittal reformats were performed. Limited examination due to lack of intravenous contrast. FINDINGS: LOWER CHEST: Partial visualization of known right middle lobe lobulated mass measuring at least 4.2 x 3.2 cm. Small right pleural effusion. Cardiomegaly. No pericardial effusion. Coronary calcifications . Small aortic valvular calcifications. Trace residual contrast within the distal esophagus. ABDOMEN LIVER: Unremarkable noncontrast appearance GALLBLADDER AND BILE DUCTS: Gallbladder is surgically absent with extra hepatic biliary dilatation li deep physiologic and a postcholecystectomy change. No evidence of choledocholithiasis. PANCREAS: Atrophy of the pancreas. SPLEEN: Unremarkable noncontrast appearance ADRENAL GLANDS: Unremarkable noncontrast appearance. KIDNEYS AND URETERS: No evidence of hydronephrosis or renal calculus. STOMACH AND BOWEL: Stomach and duodenum are unremarkable. Dilated small and large bowel with air-flui d levels identified. Enteric contrast reaches the mid small bowel. The small bowel measures up to 3.7 cm. The large bowel measures up to 5.8 cm. No distinct focal transition point identified. No focal b owel wall thickening or surrounding inflammatory changes visualized. No pneumatosis. PERITONEUM: No evidence of pneumoperitoneum. Small perihepatic ascites. VASCULATURE: Moderate atherosclerotic calcifications are present throughout the abdominal aorta and i ts branches. No evidence of aortic aneurysm. Ectasia of the abdominal aorta measuring up to 2.9 cm. MUSCULOSKELETAL: No acute osseous abnormalities no aggressive osseous lesions. LYMPH NODES: No gross evidence for lymphadenopathy. SOFT TISSUE/ABDOMINAL WALL: Unremarkable IMPRESSION: 1. Development of dilated small and large bowel without visualized transition point. Findings sugges t an ileus versus distal colonic obstruction. Patient had large rectal fecaloma on prior CT. Correlat e clinically with consideration for disimpaction. 2. Small perihepatic ascites. 3. Partial visualization of known right middle lobe pulmonary mass which was FDG avid on prior PET CT . This again is concerning for malignancy. 4. Small right pleural effusion. [facility], , 10/30/2024 4:37 PM
[2024-10-30 16:51] LABS: Glucose,Whole Blood 40 mg/dL (70-110)
[2024-10-30 17:35] LABS: Glucose,Whole Blood 48 mg/dL (70-110)
[2024-10-30 18:02] LABS: Glucose,Whole Blood 56 mg/dL (70-110)
[2024-10-30 18:28] LABS: Glucose,Whole Blood 53 mg/dL (70-110)
[2024-10-30 19:10] LABS: Glucose,Whole Blood 254 mg/dL (70-110)
[2024-10-30] MEDS: INSULIN GLARGINE (LANTUS) 100 UNIT/ML SYR SQ SCH (19:56)
[2024-10-30 20:48] LABS: Glucose,Whole Blood 96 mg/dL (70-110)
--- NOTE | 2024-10-30 22:16 | P.CONS ---
History of Present Illness - Reason for Consult Consult date: 10/30/24 UTI Requesting physician: Nicolette Siddiqi - Chief Complaint Weakness x few days - History of Present Illness Patient is a 74-year-old female with a past medical history significant for heart failure COPD diabetes mellitus reflux hyperlipidemia and recent diagnosis of lung cancer patient has been brought into the hospital from oncology office concerning for urinary retention/oliguria for the last 3 weeks and the patient did have Rock catheter removed 3 weeks ago seem to have problem with the dribbling of urine since then however denies having any associated dysuria patient on presentation to the hospital was afebrile and no fever have been called subsequently patient was not tachycardic hypotensive mildly hypoxic currently on 3 L nasal cannula oxygen patient did have a normal white count 9.04 BUN and creatinine was mildly elevated liver enzymes are normal did have a positive UA subsequently blood culture, positive gram-positive bacilli patient did have a chest x-ray right perihilar density slightly diminished in size from comparison she did have abdominal bladder ultrasound unremarkable renal ultrasound infectious disease was consulted concern for possible UTI however the patient currently denies having any urinary send no burning or frequency suprapubic pain Review of Systems Positive point and negatives has been mentioned in the HPI, complete review of systems was performed and all other systems are negative Past Medical History Past Medical History: Cancer, Heart Failure, COPD, Diabetes Mellitus, GERD/Reflux, Hyperlipidemia, Thyroid Disorder Additional Past Medical History / Comment(s): home O2 3-6L per pt., recent dx of lung Cancer (pt stated hasn't started tx yet) History of Any Multi-Drug Resistant Organisms: None Reported Past Surgical History: Cholecystectomy Additional Past Surgical History / Comment(s): foot Left plate and pins Past Anesthesia/Blood Transfusion Reactions: No Reported Reaction Past Psychological History: Anxiety Additional Psychological History / Comment(s): Anxiety Smoking Status: Former smoker Past Alcohol Use History: None Reported Additional Past Alcohol Use History / Comment(s): STARTED SMOKING AT AGE 16- quit 2019 Past Drug Use History: None Reported Additional Drug Use History / Comment(s): RARE USE OF MARIJUANA - Past Family History Mother Family Medical History: Hypertension Father Family Medical History: Cancer Medications and Allergies Home Medications Medication Instructions Recorded Confirmed Type Albuterol Inhaler [Ventolin Hfa 2 puff INHALATION RT-Q6H PRN 01/08/15 10/29/24 History Inhaler] Ergocalciferol [Vitamin D2 (1250 1,250 mcg PO MO 07/04/24 10/29/24 History Mcg = 77372 Iu)] traZODone HCL [Desyrel] 25 mg PO HS@2100 07/04/24 10/29/24 History Budesonide/Formoterol Fumarate 2 puff INHALATION RT-BID 08/09/24 10/29/24 History [Symbicort 160-4.5 Mcg Inhaler] Docusate [Colace] 100 mg PO DAILY 08/09/24 10/29/24 History Folic Acid 1 mg PO DAILY 08/09/24 10/29/24 History Insulin Glargine (Lantus) [Lantus 35 unit SQ HS@2100 08/09/24 10/29/24 History Vial] Ipratropium-Albuterol Nebulize 3 ml INHALATION RT-Q6H PRN 08/09/24 10/29/24 History [Duoneb 0.5 mg-3 mg/3 ml Soln] Metoprolol Tartrate [Lopressor] 25 mg PO BID 08/09/24 10/29/24 History Tamsulosin [Flomax] 0.4 mg PO HS 08/29/24 10/29/24 History Empagliflozin [Jardiance] 10 mg PO DAILY 09/11/24 10/29/24 History Magnesium Oxide [Mag-Ox] 400 mg PO TID 09/11/24 10/29/24 History Sennosides/Docusate Sodium [Senna 1 tab PO BID 09/11/24 10/29/24 History Plus 8.6-50 mg Tablet] HYDROcodone/APAP 10-325MG [Destrehan 1 tab PO TID PRN #4 tab 09/19/24 10/29/24 Rx 10-325] Acetaminophen Tab [Tylenol] 650 mg PO Q6H PRN 10/29/24 10/29/24 History Apixaban [Eliquis] 5 mg PO BID 10/29/24 10/29/24 History Lactulose [Cephulac] 20 gm PO BID 10/29/24 10/29/24 History Spironolactone [Aldactone] 12.5 mg PO DAILY 10/29/24 10/29/24 History Torsemide [Demadex] 10 mg PO DAILY 10/29/24 10/29/24 History Allergies Allergy/AdvReac Type Severity Reaction Status Date / Time Penicillins Allergy Rash/Hives Verified 10/29/24 14:47 Physical Exam Vitals: Vital Signs Temp Pulse Pulse Resp BP BP Pulse Ox 10/30/24 08:00 78 18 91/56 95 10/30/24 02:35 97.1 F L 74 15 97/63 100 10/29/24 22:00 97.9 F 82 17 102/62 10/29/24 21:45 82 17 10/29/24 21:19 97.6 F 80 18 92/50 100 10/29/24 19:52 87 18 113/62 100 10/29/24 18:49 84 20 93/68 97 10/29/24 15:25 77 20 95/63 98 10/29/24 14:06 76 20 97/47 96 10/29/24 13:14 81 20 87/58 99 Intake and Output 10/29/24 10/30/24 10/30/24 22:59 06:59 14:59 Output Total 600 Balance -600 Output: Urine 600 Other: Voiding Method Indwelling Catheter # Voids 1 Weight 80.739 kg 80.739 kg GENERAL DESCRIPTION: Elderly female lying in bed, no distress. No tachypnea or accessory muscle of respiration use. HEENT: Shows Pallor , no scleral icterus. Oral mucous membrane is dry. NECK: Trachea central, no thyromegaly. LUNGS: Unlabored breathing. Clear to auscultation anteriorly. No wheeze or crackle. HEART: S1, S2, regular rate and rhythm. No loud murmur ABDOMEN: Soft, no tenderness , guarding or rigidity, no organomegaly EXTREMITIES: No edema of feet. SKIN: No rash, no masses palpable. NEUROLOGICAL: The patient is awake, alert, oriented x3, mood and affect normal. Results CBC & Chem 7: 10/29/24 12:52 10/30/24 12:45 Labs: Abnormal Lab Results - Last 24 Hours (Table) 10/29/24 10/29/24 10/29/24 Range/Units 12:52 12:52 13:14 RBC 2.87 L (4.10-5.20) 10*6/uL Hgb 9.0 L (12.0-15.0) g/dL Hct 27.2 L (37.2-46.3) % Sodium 122 L (137-145) mmol/L Chloride 81 L (98-107) mmol/L BUN 56 H (7-17) mg/dL Creatinine 1.31 H (0.52-1.04) mg/dL Glucose 121 H (74-99) mg/dL POC Glucose (mg/dL) (70-110) mg/dL Calcium 8.2 L (8.4-10.2) mg/dL Alkaline Phosphatase 138 H (38-126) U/L Total Protein 6.0 L (6.3-8.2) g/dL Albumin 3.2 L (3.5-5.0) g/dL Urine Appearance Turbid H (Clear) Urine Protein 2+ H (Negative) Urine Ketones 1+ H (Negative) Urine Blood Small H (Negative) Ur Leukocyte Esterase Large H (Negative) Urine RBC 35 H (0-5) /hpf Urine WBC >182 H (0-5) /hpf Urine Bacteria Occasional H (None) /hpf Urine Mucus Rare H (None) /hpf Urine Yeast (Budding) Few H (None) /hpf 10/30/24 10/30/24 10/30/24 Range/Units 06:52 06:53 07:23 RBC (4.10-5.20) 10*6/uL Hgb (12.0-15.0) g/dL Hct (37.2-46.3) % Sodium (137-145) mmol/L Chloride (98-107) mmol/L BUN (7-17) mg/dL Creatinine (0.52-1.04) mg/dL Glucose (74-99) mg/dL POC Glucose (mg/dL) 32 L* 36 L* 180 H (70-110) mg/dL Calcium (8.4-10.2) mg/dL Alkaline Phosphatase (38-126) U/L Total Protein (6.3-8.2) g/dL Albumin (3.5-5.0) g/dL Urine Appearance (Clear) Urine Protein (Negative) Urine Ketones (Negative) Urine Blood (Negative) Ur Leukocyte Esterase (Negative) Urine RBC (0-5) /hpf Urine WBC (0-5) /hpf Urine Bacteria (None) /hpf Urine Mucus (None) /hpf Urine Yeast (Budding) (None) /hpf Assessment and Plan (1) Asymptomatic bacteriuria Current Visit: Yes Status: Acute Code(s): R82.71 - BACTERIURIA SNOMED Code(s): 596652590 (2) Positive blood culture Current Visit: Yes Status: Acute Code(s): R78.81 - BACTEREMIA SNOMED Code(s): 409363690 (3) Penicillin allergy Current Visit: No Status: Acute Code(s): Z88.0 - ALLERGY STATUS TO PENICILLIN SNOMED Code(s): 74696892 Plan: 1patient being brought into the hospital concerning for urinary symptom or dribbling however the patient denies having any burning frequency suprapubic pain no suprapubic tenderness was noticed on examination did have a positive UA more likely representing asymptomatic bacteriuria and no need for antibiotic therapy 2-patient also have positive blood culture with gram-positive bacilli more likely skin contamination 3-patient did have penicillin allergy that would limit the number of antibiotic safe to use 4-at this point we will monitor the patient closely off antibiotic therapy We will follow on clinical condition and cultures to further adjust medication if needed Thank you for this consultation we will follow the patient along with you Dictation was produced using [employer] dictation software. please excuse any grammatical, word or spelling errors. Time with Patient: Greater than 30
[2024-10-30 23:55] LABS: Glucose,Whole Blood 32 mg/dL (70-110)
[2024-10-31] MEDS ORDERED: DEXTROSE 5%-0.45% NACL 1,000 ML IV SCH (00:15)
[2024-10-31 00:29] LABS: Glucose,Whole Blood 112 mg/dL (70-110)
[2024-10-31] MEDS: DEXTROSE 5% IN WATER 1,000 ML IV ONE (02:35)
[2024-10-31 06:09] LABS: Glucose,Whole Blood 51 mg/dL (70-110)
[2024-10-31] MEDS: DEXTROSE 50% SYRINGE 50 ML IVP PRN (06:14)
[2024-10-31 06:42] LABS: Glucose,Whole Blood 113 mg/dL (70-110)
[2024-10-31 08:06] LABS: Basophils # (A) 0.02 X 10*3/uL (0.00-0.10); Basophils % (A) 0.2 %; Eosinophils # (A) 0.14 X 10*3/uL (0.04-0.35); Eosinophils % (A) 1.5 %; HCT 24.4 % (37.2-46.3); HGB 7.6 g/dL (12.0-15.0); Immature Grans, Automated 0.50 %; Lymphocytes # (A) 1.44 X 10*3/uL (0.90-5.00); Lymphocytes % (A) 15.5 %; MCH 30.3 pg (27.0-32.0); MCHC 31.1 g/dL (32.0-37.0); MCV 97.2 FL (80.0-97.0); Monocytes # (A) 0.47 X 10*3/uL (0.20-1.00); Monocytes % (A) 5.1 %; NRBC Per 100 WBC 0 X 10*3/uL (0.00-0.01); Neutrophils # (A) 7.18 X 10*3/uL (1.80-7.70); Neutrophils % (A) 77.2 %; Platelet Count 201 X 10*3/uL (140-440); RBC 2.51 X 10*6/uL (4.10-5.20); RDW 14.9 % (11.5-14.5); WBC 9.30 X 10*3/uL (4.50-10.00)
[2024-10-31 08:32] LABS: ALT 9 U/L (8-44); AST 18 U/L (13-35); Albumin 2.8 g/dL (3.8-4.9); Albumin/Globulin Ratio 1.40 Ratio (1.60-3.17); Alkaline Phosphatase 100 U/L (41-126); Anion Gap 8.90 mmol/L (4.00-12.00); BUN/Creat Ratio 49.50 Ratio (12.00-20.00); Blood Urea Nitrogen 39.6 mg/dL (9.0-27.0); Calcium 7.4 mg/dL (8.7-10.3); Carbon Dioxide 29.1 mmol/L (21.6-31.8); Chloride 93 mmol/L (96-109); Globulin 2.0 g/dL (1.6-3.3); Glucose 33 mg/dL (70-110); Potassium 3.8 mmol/L (3.5-5.5); Sodium 131 mmol/L (135-145); Total Protein 4.8 g/dL (6.2-8.2)
--- NOTE | 2024-10-31 09:03 | P.GSCN ---
History of Present Illness Consult date: 10/31/24 History of present illness: 74 yo female who came in to the hospital with symptoms of urine retention. The patient has had problems for several weeks. the catheter came out 3 weeks ago and she has had alot of dribbling and incontinence since then. From reviewing the chart 200 ml were obtained with the catheter initiation. SHe had a ct scan of the abdomen and pelvis that was normal. Her urine was inflammed and is growing a GNR. Multiple medical illnesses including insulin dependent diabetes. The history is obtained from the chart. Upon interviewing the patient she can give me very little history. She is not engaged in any discussion. She denies any obvious urinary tract issues. She has an indwelling catheter with relatively clear urine. Review of Systems All systems: negative - Constitutional Denies fever, Denies weight loss - EENT Eyes: denies blurred vision Ears, nose, mouth and throat: Denies dysphagia - Cardiovascular Denies chest pain, Denies shortness of breath - Respiratory Denies cough, Denies 7 - Gastrointestinal Reports as per HPI - Genitourinary Genitourinary: Denies dysuria, Denies hematuria - Integumentary Denies rash, Denies unusual bruising - Neurological Denies headaches, Denies syncope - Hematologic/Lymphatic Denies easy bleeding, Denies easy bruising Past Medical History Past Medical History: Cancer, Heart Failure, COPD, Diabetes Mellitus, GERD/Reflux, Hyperlipidemia, Thyroid Disorder Additional Past Medical History / Comment(s): home O2 3-6L per pt., recent dx of lung Cancer (pt stated hasn't started tx yet) History of Any Multi-Drug Resistant Organisms: None Reported Past Surgical History: Cholecystectomy Additional Past Surgical History / Comment(s): foot Left plate and pins Past Anesthesia/Blood Transfusion Reactions: No Reported Reaction Past Psychological History: Anxiety Additional Psychological History / Comment(s): Anxiety Smoking Status: Former smoker Past Alcohol Use History: None Reported Additional Past Alcohol Use History / Comment(s): STARTED SMOKING AT AGE 16- quit 2019 Past Drug Use History: None Reported Additional Drug Use History / Comment(s): RARE USE OF MARIJUANA - Past Family History Mother Family Medical History: Hypertension Father Family Medical History: Cancer Medications and Allergies Home Medications Medication Instructions Recorded Confirmed Type Albuterol Inhaler [Ventolin Hfa 2 puff INHALATION RT-Q6H PRN 01/08/15 10/29/24 History Inhaler] Ergocalciferol [Vitamin D2 (1250 1,250 mcg PO MO 07/04/24 10/29/24 History Mcg = 91299 Iu)] traZODone HCL [Desyrel] 25 mg PO HS@2100 07/04/24 10/29/24 History Budesonide/Formoterol Fumarate 2 puff INHALATION RT-BID 08/09/24 10/29/24 History [Symbicort 160-4.5 Mcg Inhaler] Docusate [Colace] 100 mg PO DAILY 08/09/24 10/29/24 History Folic Acid 1 mg PO DAILY 08/09/24 10/29/24 History Insulin Glargine (Lantus) [Lantus 35 unit SQ HS@2100 08/09/24 10/29/24 History Vial] Ipratropium-Albuterol Nebulize 3 ml INHALATION RT-Q6H PRN 08/09/24 10/29/24 History [Duoneb 0.5 mg-3 mg/3 ml Soln] Metoprolol Tartrate [Lopressor] 25 mg PO BID 08/09/24 10/29/24 History Tamsulosin [Flomax] 0.4 mg PO HS 08/29/24 10/29/24 History Empagliflozin [Jardiance] 10 mg PO DAILY 09/11/24 10/29/24 History Magnesium Oxide [Mag-Ox] 400 mg PO TID 09/11/24 10/29/24 History Sennosides/Docusate Sodium [Senna 1 tab PO BID 09/11/24 10/29/24 History Plus 8.6-50 mg Tablet] HYDROcodone/APAP 10-325MG [[place] 1 tab PO TID PRN #4 tab 09/19/24 10/29/24 Rx 10-325] Acetaminophen Tab [Tylenol] 650 mg PO Q6H PRN 10/29/24 10/29/24 History Apixaban [Eliquis] 5 mg PO BID 10/29/24 10/29/24 History Lactulose [Cephulac] 20 gm PO BID 10/29/24 10/29/24 History Spironolactone [Aldactone] 12.5 mg PO DAILY 10/29/24 10/29/24 History Torsemide [Demadex] 10 mg PO DAILY 10/29/24 10/29/24 History Allergies Allergy/AdvReac Type Severity Reaction Status Date / Time Penicillins Allergy Rash/Hives Verified 10/29/24 14:47 Surgical - Exam Vital Signs Temp Pulse Resp BP Pulse Ox 97.5 F L 79 80 H 76/50 100 10/29/24 11:36 10/29/24 11:36 10/29/24 11:36 10/29/24 11:36 10/29/24 11:36 - Genitourinary indwelling catheter. Results - Labs 10/31/24 03:37 10/31/24 03:37 Abnormal Lab Results - Last 24 Hours (Table) 10/30/24 10/30/24 10/30/24 Range/Units 06:52 06:53 07:23 Sodium (137-145) mmol/L Chloride (98-107) mmol/L Carbon Dioxide (22-30) mmol/L BUN (7-17) mg/dL Glucose (74-99) mg/dL POC Glucose (mg/dL) 32 L* 36 L* 180 H (70-110) mg/dL Calcium (8.4-10.2) mg/dL Total Protein (6.3-8.2) g/dL Albumin (3.5-5.0) g/dL 10/30/24 10/30/24 10/30/24 Range/Units 12:43 12:45 13:13 Sodium 129 L (137-145) mmol/L Chloride 94 L (98-107) mmol/L Carbon Dioxide 31 H (22-30) mmol/L BUN 47 H (7-17) mg/dL Glucose 46 L* (74-99) mg/dL POC Glucose (mg/dL) 51 L 63 L (70-110) mg/dL Calcium 7.5 L (8.4-10.2) mg/dL Total Protein 5.3 L (6.3-8.2) g/dL Albumin 2.8 L (3.5-5.0) g/dL 10/30/24 10/30/24 10/30/24 Range/Units 16:47 17:33 18:00 Sodium (137-145) mmol/L Chloride (98-107) mmol/L Carbon Dioxide (22-30) mmol/L BUN (7-17) mg/dL Glucose (74-99) mg/dL POC Glucose (mg/dL) 40 L* 48 L* 56 L (70-110) mg/dL Calcium (8.4-10.2) mg/dL Total Protein (6.3-8.2) g/dL Albumin (3.5-5.0) g/dL 10/30/24 10/30/24 10/30/24 Range/Units 18:27 19:08 23:52 Sodium (137-145) mmol/L Chloride (98-107) mmol/L Carbon Dioxide (22-30) mmol/L BUN (7-17) mg/dL Glucose (74-99) mg/dL POC Glucose (mg/dL) 53 L 254 H 32 L* (70-110) mg/dL Calcium (8.4-10.2) mg/dL Total Protein (6.3-8.2) g/dL Albumin (3.5-5.0) g/dL 10/31/24 10/31/24 Range/Units 00:28 06:07 Sodium (137-145) mmol/L Chloride (98-107) mmol/L Carbon Dioxide (22-30) mmol/L BUN (7-17) mg/dL Glucose (74-99) mg/dL POC Glucose (mg/dL) 112 H 51 L (70-110) mg/dL Calcium (8.4-10.2) mg/dL Total Protein (6.3-8.2) g/dL Albumin (3.5-5.0) g/dL Microbiology - Last 24 Hours (Table) 10/29/24 20:50 Urine Culture - Preliminary Urine,Catheterized Gram Neg Bacilli 10/29/24 13:14 Urine Culture - Preliminary Urine,Voided Gram Neg Bacilli 10/29/24 15:17 Blood Culture Gram Stain - Preliminary Blood Diabetes panel 10/30/24 Range/Units 12:45 Sodium 129 L (137-145) mmol/L Potassium 3.9 (3.5-5.1) mmol/L Chloride 94 L (98-107) mmol/L Carbon Dioxide 31 H (22-30) mmol/L BUN 47 H (7-17) mg/dL Creatinine 1.00 (0.52-1.04) mg/dL Glucose 46 L* (74-99) mg/dL Calcium 7.5 L (8.4-10.2) mg/dL AST 20 (14-36) U/L ALT 10 (4-34) U/L Alkaline Phosphatase 117 (38-126) U/L Total Protein 5.3 L (6.3-8.2) g/dL Albumin 2.8 L (3.5-5.0) g/dL Calcium panel 10/30/24 Range/Units 12:45 Calcium 7.5 L (8.4-10.2) mg/dL Albumin 2.8 L (3.5-5.0) g/dL Pituitary panel 10/30/24 Range/Units 12:45 Sodium 129 L (137-145) mmol/L Potassium 3.9 (3.5-5.1) mmol/L Chloride 94 L (98-107) mmol/L Carbon Dioxide 31 H (22-30) mmol/L BUN 47 H (7-17) mg/dL Creatinine 1.00 (0.52-1.04) mg/dL Glucose 46 L* (74-99) mg/dL Calcium 7.5 L (8.4-10.2) mg/dL Adrenal panel 10/30/24 Range/Units 12:45 Sodium 129 L (137-145) mmol/L Potassium 3.9 (3.5-5.1) mmol/L Chloride 94 L (98-107) mmol/L Carbon Dioxide 31 H (22-30) mmol/L BUN 47 H (7-17) mg/dL Creatinine 1.00 (0.52-1.04) mg/dL Glucose 46 L* (74-99) mg/dL Calcium 7.5 L (8.4-10.2) mg/dL Total Bilirubin 0.3 (0.2-1.3) mg/dL AST 20 (14-36) U/L ALT 10 (4-34) U/L Alkaline Phosphatase 117 (38-126) U/L Total Protein 5.3 L (6.3-8.2) g/dL Albumin 2.8 L (3.5-5.0) g/dL - Imaging CT scan - abdomen: report reviewed, image reviewed CT scan - pelvis: report reviewed, image reviewed Assessment and Plan Assessment: Impression: Incomplete bladder emptying. Multiple medical illnesses including diabetes. Recommendations: Believe she is in urine retention. I think she has incomplete bladder emptying which is probably chronic. My recommendation is to leave ind welling catheter until she is ambulatory. Prior to discharge she should have the catheter removed for voiding trial. She is unable to urinate and further evaluation can be performed including urodynamics and cystoscopy in the office. Time with Patient: Greater than 30
--- NOTE | 2024-10-31 11:05 | P.GSCN ---
History of Present Illness Consult date: 10/31/24 History of present illness: CHIEF COMPLAINT: Urinary retention HISTORY OF PRESENT ILLNESS: This is a 74-year-old female who presented to the ER with urinary retention. Apparently she had a [place] catheter removed 3 weeks ago but since then has only been able to dribble urine. Rock catheter has been reinserted. She has been seen by urology. Patient had a CT scan abdomen pelvis completed that reported development of dilated small and large bowel. Findings suggest ileus versus distal colonic obstruction. Patient had large fecal fecaloma. Patient reports having small amount of stools this morning. She was also admitted to the hospital with hyponatremia. She reports decreased appetite. Patient is bedbound. She does report going multiple days without a b owel movement. History of lung cancer and diabetes. PAST MEDICAL HISTORY: Heart Failure, COPD, Diabetes Mellitus, GERD/Reflux, Hyperlipidemia, Thyroid Disorder, lung cancer PAST SURGICAL HISTORY: Cholecystectomy MEDICATIONS: See below ALLERGIES: See below SOCIAL HISTORY: No illicit drug use. REVIEW OF SYSTEMS: CONSTITUTIONAL: Denies fever or chills. HEENT: Denies blurred vision, vision changes, or eye pain. Denies hemoptysis CARDIOVASCULAR: Denies chest pain or pressure. RESPIRATORY: No shortness of breath. GASTROINTESTINAL: See HPI for pertinent findings HEMATOLOGIC: Denies bleeding disorders. GENITOURINARY: Denies any blood in urine or increased urinary frequency. SKIN: Denies pruitis. Denies rash. PHYSICAL EXAM: VITAL SIGNS: Reviewed GENERAL: Well-developed in no acute distress. HEENT: No sclera icterus. Extraocular movements grossly intact. Moist buccal mucosa. Head is atraumatic, normocephalic. No nasal drainage. ABDOMEN: Distended. Diffuse tenderness. Umbilical hernia noted. NEUROLOGIC: Alert and oriented. Cranial nerves II through XII grossly intact. LABORATORY DATA: WBC 9.30 Hgb 7.6 platelets 201 Sodium 122 up to 131 creatinine 0.8 Glucose 33 up to 113 IMAGING: CT scan abdomen pelvis reports development of dilated small and large bowel without visualization of transition point. Findings suggest ileus versus distal colonic obstruction. Patient had large rectal fecaloma on prior CT correlate clinically with consideration for disimpaction. Small perihepatic ascites. Partial visualization of right middle lobe pulmonary mass. Small right pleural effusion. ASSESSMENT: 1. Rectal fecaloma with ileus 2. Constipation PLAN: - Soapsuds enemas x 2 ordered - Follow-up abdominal x-ray in a.m. - Downgrade diet to clear liquids - Continue stool softeners - Continue to monitor Physician [employer] note has been reviewed by physician. Signing provider agrees with the documented findings, assessment, and plan of care. Past Medical History Past Medical History: Cancer, Heart Failure, COPD, Diabetes Mellitus, GERD/Reflux, Hyperlipidemia, Thyroid Disorder Additional Past Medical History / Comment(s): home O2 3-6L per pt., recent dx of lung Cancer (pt stated hasn't started tx yet) History of Any Multi-Drug Resistant Organisms: None Reported Past Surgical History: Cholecystectomy Additional Past Surgical History / Comment(s): foot Left plate and pins Past Anesthesia/Blood Transfusion Reactions: No Reported Reaction Past Psychological History: Anxiety Additional Psychological History / Comment(s): Anxiety Smoking Status: Former smoker Past Alcohol Use History: None Reported Additional Past Alcohol Use History / Comment(s): STARTED SMOKING AT AGE 16- quit 2018 Past Drug Use History: None Reported Additional Drug Use History / Comment(s): RARE USE OF MARIJUANA - Past Family History Mother Family Medical History: Hypertension Father Family Medical History: Cancer Medications and Allergies Home Medications Medication Instructions Recorded Confirmed Type Albuterol Inhaler [Ventolin Hfa 2 puff INHALATION RT-Q6H PRN 01/08/15 10/29/24 History Inhaler] Ergocalciferol [Vitamin D2 (1250 1,250 mcg PO MO 07/04/24 10/29/24 History Mcg = 24169 Iu)] traZODone HCL [Desyrel] 25 mg PO HS@2100 07/04/24 10/29/24 History Budesonide/Formoterol Fumarate 2 puff INHALATION RT-BID 08/09/24 10/29/24 History [Symbicort 160-4.5 Mcg Inhaler] Docusate [Colace] 100 mg PO DAILY 08/09/24 10/29/24 History Folic Acid 1 mg PO DAILY 08/09/24 10/29/24 History Insulin Glargine (Lantus) [Lantus 35 unit SQ HS@2100 08/09/24 10/29/24 History Vial] Ipratropium-Albuterol Nebulize 3 ml INHALATION RT-Q6H PRN 08/09/24 10/29/24 History [Duoneb 0.5 mg-3 mg/3 ml Soln] Metoprolol Tartrate [Lopressor] 25 mg PO BID 08/09/24 10/29/24 History Tamsulosin [Flomax] 0.4 mg PO HS 08/29/24 10/29/24 History Empagliflozin [Jardiance] 10 mg PO DAILY 09/11/24 10/29/24 History Magnesium Oxide [Mag-Ox] 400 mg PO TID 09/11/24 10/29/24 History Sennosides/Docusate Sodium [[place] 1 tab PO BID 09/11/24 10/29/24 History Plus 8.6-50 mg Tablet] HYDROcodone/APAP 10-325MG [[place] 1 tab PO TID PRN #4 tab 09/19/24 10/29/24 Rx 10-325] Acetaminophen Tab [Tylenol] 650 mg PO Q6H PRN 10/29/24 10/29/24 History Apixaban [Eliquis] 5 mg PO BID 10/29/24 10/29/24 History Lactulose [Cephulac] 20 gm PO BID 10/29/24 10/29/24 History Spironolactone [Aldactone] 12.5 mg PO DAILY 10/29/24 10/29/24 History Torsemide [Demadex] 10 mg PO DAILY 10/29/24 10/29/24 History Allergies Allergy/AdvReac Type Severity Reaction Status Date / Time Penicillins Allergy Rash/Hives Verified 10/29/24 14:47 Surgical - Exam Vital Signs Temp Pulse Resp BP Pulse Ox 97.5 F L 79 80 H 76/50 100 10/29/24 11:36 10/29/24 11:36 10/29/24 11:36 10/29/24 11:36 10/29/24 11:36 Results - Labs 10/31/24 03:37 10/31/24 03:37 Abnormal Lab Results - Last 24 Hours (Table) 10/30/24 10/30/24 10/30/24 Range/Units 12:43 12:45 13:13 RBC (4.10-5.20) X 10*6/uL Hgb (12.0-15.0) g/dL Hct (37.2-46.3) % MCV (80.0-97.0) FL MCHC (32.0-37.0) g/dL RDW (11.5-14.5) % Immature Gran # (0.00-0.04) X 10*3/uL Sodium 129 L (137-145) mmol/L Chloride 94 L (98-107) mmol/L Carbon Dioxide 31 H (22-30) mmol/L BUN 47 H (7-17) mg/dL BUN/Creatinine Ratio (12.00-20.00) Ratio Glucose 46 L* (74-99) mg/dL POC Glucose (mg/dL) 51 L 63 L (70-110) mg/dL Calcium 7.5 L (8.4-10.2) mg/dL Total Bilirubin (0.3-1.2) mg/dL Total Protein 5.3 L (6.3-8.2) g/dL Albumin 2.8 L (3.5-5.0) g/dL Albumin/Globulin Ratio (1.60-3.17) Ratio 10/30/24 10/30/24 10/30/24 Range/Units 16:47 17:33 18:00 RBC (4.10-5.20) X 10*6/uL Hgb (12.0-15.0) g/dL Hct (37.2-46.3) % MCV (80.0-97.0) FL MCHC (32.0-37.0) g/dL RDW (11.5-14.5) % Immature Gran # (0.00-0.04) X 10*3/uL Sodium (137-145) mmol/L Chloride (98-107) mmol/L Carbon Dioxide (22-30) mmol/L BUN (7-17) mg/dL BUN/Creatinine Ratio (12.00-20.00) Ratio Glucose (74-99) mg/dL POC Glucose (mg/dL) 40 L* 48 L* 56 L (70-110) mg/dL Calcium (8.4-10.2) mg/dL Total Bilirubin (0.3-1.2) mg/dL Total Protein (6.3-8.2) g/dL Albumin (3.5-5.0) g/dL Albumin/Globulin Ratio (1.60-3.17) Ratio 10/30/24 10/30/24 10/30/24 Range/Units 18:27 19:08 23:52 RBC (4.10-5.20) X 10*6/uL Hgb (12.0-15.0) g/dL Hct (37.2-46.3) % MCV (80.0-97.0) FL MCHC (32.0-37.0) g/dL RDW (11.5-14.5) % Immature Gran # (0.00-0.04) X 10*3/uL Sodium (137-145) mmol/L Chloride (98-107) mmol/L Carbon Dioxide (22-30) mmol/L BUN (7-17) mg/dL BUN/Creatinine Ratio (12.00-20.00) Ratio Glucose (74-99) mg/dL POC Glucose (mg/dL) 53 L 254 H 32 L* (70-110) mg/dL Calcium (8.4-10.2) mg/dL Total Bilirubin (0.3-1.2) mg/dL Total Protein (6.3-8.2) g/dL Albumin (3.5-5.0) g/dL Albumin/Globulin Ratio (1.60-3.17) Ratio 10/31/24 10/31/24 10/31/24 Range/Units 00:28 03:37 03:37 RBC 2.51 L (4.10-5.20) X 10*6/uL Hgb 7.6 L (12.0-15.0) g/dL Hct 24.4 L (37.2-46.3) % MCV 97.2 H (80.0-97.0) FL MCHC 31.1 L (32.0-37.0) g/dL RDW 14.9 H (11.5-14.5) % Immature Gran # 0.05 H (0.00-0.04) X 10*3/uL Sodium 131 L (137-145) mmol/L Chloride 93 L (98-107) mmol/L Carbon Dioxide (22-30) mmol/L BUN 39.6 H (7-17) mg/dL BUN/Creatinine Ratio 49.50 H (12.00-20.00) Ratio Glucose 33 A* (74-99) mg/dL POC Glucose (mg/dL) 112 H (70-110) mg/dL Calcium 7.4 L (8.4-10.2) mg/dL Total Bilirubin <0.2 L (0.3-1.2) mg/dL Total Protein 4.8 L (6.3-8.2) g/dL Albumin 2.8 L (3.5-5.0) g/dL Albumin/Globulin Ratio 1.40 L (1.60-3.17) Ratio 10/31/24 10/31/24 Range/Units 06:07 06:41 RBC (4.10-5.20) X 10*6/uL Hgb (12.0-15.0) g/dL Hct (37.2-46.3) % MCV (80.0-97.0) FL MCHC (32.0-37.0) g/dL RDW (11.5-14.5) % Immature Gran # (0.00-0.04) X 10*3/uL Sodium (137-145) mmol/L Chloride (98-107) mmol/L Carbon Dioxide (22-30) mmol/L BUN (7-17) mg/dL BUN/Creatinine Ratio (12.00-20.00) Ratio Glucose (74-99) mg/dL POC Glucose (mg/dL) 51 L 113 H (70-110) mg/dL Calcium (8.4-10.2) mg/dL Total Bilirubin (0.3-1.2) mg/dL Total Protein (6.3-8.2) g/dL Albumin (3.5-5.0) g/dL Albumin/Globulin Ratio (1.60-3.17) Ratio Microbiology - Last 24 Hours (Table) 10/29/24 20:50 Urine Culture - Preliminary Urine,Catheterized Gram Neg Bacilli 10/29/24 13:14 Urine Culture - Preliminary Urine,Voided Gram Neg Bacilli 10/29/24 15:17 Blood Culture Gram Stain - Preliminary Blood Diabetes panel 10/30/24 10/31/24 10/31/24 Range/Units 12:45 03:37 03:37 Sodium 129 L 131 L (137-145) mmol/L Potassium 3.9 3.8 (3.5-5.1) mmol/L Chloride 94 L 93 L (98-107) mmol/L Carbon Dioxide 31 H 29.1 (22-30) mmol/L BUN 47 H 39.6 H (7-17) mg/dL Creatinine 1.00 0.8 (0.52-1.04) mg/dL Glucose 46 L* 33 A* (74-99) mg/dL Hemoglobin A1c 4.6 (<=6.0) % Calcium 7.5 L 7.4 L (8.4-10.2) mg/dL AST 20 18 (14-36) U/L ALT 10 9 (4-34) U/L Alkaline Phosphatase 117 100 (38-126) U/L Total Protein 5.3 L 4.8 L (6.3-8.2) g/dL Albumin 2.8 L 2.8 L (3.5-5.0) g/dL Calcium panel 10/30/24 10/31/24 Range/Units 12:45 03:37 Calcium 7.5 L 7.4 L (8.4-10.2) mg/dL Albumin 2.8 L 2.8 L (3.5-5.0) g/dL Pituitary panel 10/30/24 10/31/24 Range/Units 12:45 03:37 Sodium 129 L 131 L (137-145) mmol/L Potassium 3.9 3.8 (3.5-5.1) mmol/L Chloride 94 L 93 L (98-107) mmol/L Carbon Dioxide 31 H 29.1 (22-30) mmol/L BUN 47 H 39.6 H (7-17) mg/dL Creatinine 1.00 0.8 (0.52-1.04) mg/dL Glucose 46 L* 33 A* (74-99) mg/dL Calcium 7.5 L 7.4 L (8.4-10.2) mg/dL Adrenal panel 10/30/24 10/31/24 Range/Units 12:45 03:37 Sodium 129 L 131 L (137-145) mmol/L Potassium 3.9 3.8 (3.5-5.1) mmol/L Chloride 94 L 93 L (98-107) mmol/L Carbon Dioxide 31 H 29.1 (22-30) mmol/L BUN 47 H 39.6 H (7-17) mg/dL Creatinine 1.00 0.8 (0.52-1.04) mg/dL Glucose 46 L* 33 A* (74-99) mg/dL Calcium 7.5 L 7.4 L (8.4-10.2) mg/dL Total Bilirubin 0.3 <0.2 L (0.2-1.3) mg/dL AST 20 18 (14-36) U/L ALT 10 9 (4-34) U/L Alkaline Phosphatase 117 100 (38-126) U/L Total Protein 5.3 L 4.8 L (6.3-8.2) g/dL Albumin 2.8 L 2.8 L (3.5-5.0) g/dL
[2024-10-31 11:46] LABS: Glucose,Whole Blood 106 mg/dL (70-110)
--- NOTE | 2024-10-31 12:40 | P.NPCON ---
History of Present Illness - History of Present Illness Patient is a 74 year-old female with past medical history of COPD, DM, GERD HLD, Thyroid Disorder, came in the ER for urinary retention. Folly catheter was removed before admission, a new catheter was placed in the ER. NO documentation on the amount of Urine produced from the catheter on placement. Patient is noted to have sodium of 122 and creatinine of 1.31, previous creat inine was 0.5 (10/01/24). No history of Nausea, vomiting or diarrhea, She was on torsemide, she was h ypotensive, no history of leg swelling or CHF Patient was started on saline, and her hyponatremia increased from 122 to 129 over 24 hours, she is switched to D5w today Na is 131 today. Patient is seen at bedside today, patient is alert and oriented x 3. Patient has distended abdomen, she is constipated, will receive enema. feels pain on her left side, reports discomfort with catheter. Denies any chest pain or shortness of breath. eats and drinks well. Past Medical History Past Medical History: Cancer, Heart Failure, COPD, Diabetes Mellitus, GERD/Refl ux, Hyperlipidemia, Thyroid Disorder Additional Past Medical History / Comment(s): home O2 3-6L per pt., recent dx of lung Cancer (pt stated hasn't started tx yet) History of Any Multi-Drug Resistant Organisms: None Reported Past Surgical History: Cholecystectomy Additional Past Surgical History / Comment(s): foot Left plate and pins Past Anesthesia/Blood Transfusion Reactions: No Reported Reaction Past Psychological History: Anxiety Additional Psychological History / Comment(s): Anxiety Smoking Status: Former smoker Past Alcohol Use History: None Reported Additional Past Alcohol Use History / Comment(s): STARTED SMOKING AT AGE 16- quit 2018 Past Drug Use History: None Reported Additional Drug Use History / Comment(s): RARE USE OF MARIJUANA - Past Family History Mother Family Medical History: Hypertension Father Family Medical History: Cancer Medications and Allergies Home Medications Medication Instructions Recorded Confirmed Type Albuterol Inhaler [Ventolin Hfa 2 puff INHALATION RT-Q6H PRN 01/08/15 10/29/24 History Inhaler] Ergocalciferol [Vitamin D2 (1250 1,250 mcg PO MO 07/04/24 10/29/24 History Mcg = 27817 Iu)] traZODone HCL [Desyrel] 25 mg PO HS@2100 07/04/24 10/29/24 History Budesonide/Formoterol Fumarate 2 puff INHALATION RT-BID 08/09/24 10/29/24 History [Symbicort 160-4.5 Mcg Inhaler] Docusate [Colace] 100 mg PO DAILY 08/09/24 10/29/24 History Folic Acid 1 mg PO DAILY 08/09/24 10/29/24 History Insulin Glargine (Lantus) [Lantus 35 unit SQ HS@2100 08/09/24 10/29/24 History Vial] Ipratropium-Albuterol Nebulize 3 ml INHALATION RT-Q6H PRN 08/09/24 10/29/24 History [Duoneb 0.5 mg-3 mg/3 ml Soln] Metoprolol Tartrate [Lopressor] 25 mg PO BID 08/09/24 10/29/24 History Tamsulosin [Flomax] 0.4 mg PO HS 08/29/24 10/29/24 History Empagliflozin [Jardiance] 10 mg PO DAILY 09/11/24 10/29/24 History Magnesium Oxide [Mag-Ox] 400 mg PO TID 09/11/24 10/29/24 History Sennosides/Docusate Sodium [Senna 1 tab PO BID 09/11/24 10/29/24 History Plus 8.6-50 mg Tablet] HYDROcodone/APAP 10-325MG [[place] 1 tab PO TID PRN #4 tab 09/19/24 10/29/24 Rx 10-325] Acetaminophen Tab [Tylenol] 650 mg PO Q6H PRN 10/29/24 10/29/24 History Apixaban [Eliquis] 5 mg PO BID 10/29/24 10/29/24 History Lactulose [Cephulac] 20 gm PO BID 10/29/24 10/29/24 History Spironolactone [Aldactone] 12.5 mg PO DAILY 10/29/24 10/29/24 History Torsemide [Demadex] 10 mg PO DAILY 10/29/24 10/29/24 History Allergies Allergy/AdvReac Type Severity Reaction Status Date / Time Penicillins Allergy Rash/Hives Verified 10/29/24 14:47 Physical Exam Vitals: Vital Signs Temp Pulse Resp BP BP Pulse Ox 10/31/24 08:58 96 10/31/24 06:58 98.5 F 90 15 92/58 97 10/31/24 01:02 97.7 F 89 16 108/74 98 10/30/24 19:15 98.2 F 86 16 104/64 92 L 10/30/24 15:15 102/60 Intake and Output 10/30/24 10/31/24 10/31/24 22:59 06:59 14:59 Output Total 750 700 Balance -750 -700 Output: Urine 750 700 Other: Voiding Method Indwelling Catheter # Bowel Movements 1 1 General: Patient appears well, alert and oriented Lungs: clear to auscultation bilaterally Heart: S1 and S2 normal, no murmurs Abdomen distended with left upper and lower Quadrant Pain Lower extremities Scales and discolorations bilaterally, No edema [employer] exam grossly intact Results - Lab Results Most recent lab results Calcium 7.4 mg/dL (8.7-10.3) L 10/31/24 03:37 11/01/24 04:11 10/31/24 14:36 Assessment and Plan Assessment: 1. Hypovolemia Hyponatremia: sodium on admission was 122, today is 131 Status post Normal saline and currently on D5W to prevent rapid increase in sodium. TSH is 1.3 (07/17/24), Urine osmolarity and Urine sodium not available. 2. STEWART from lower urinary tract obstruction, and possibly from hypotension. Improved. UA is suggestive of UTI. Creatinine on admission was 1.31, today is 0.8, no hydronephrosis on US and CT 3. Bactiuria: being followed by ID, not on antibiotics currently 4. Urinary retention Status post Rock catheter placement 5. Ilius with constipation. being followed by surgery 6. Type 2 DM Plan: Continue with D5W, increased to 75 cc/h until discontinued Recheck sodium in 4 hours Continue with Rock catheter continue to hold Torsemide Repeat Labs in am Thank you for the consultation. We will continue to follow the patient with you Patient is seen and examined. Agree with resident's findings, assessment and plan.
[2024-10-31 15:20] LABS: African American GFR (CKD) 88 (>60 ml/min/1.73 sqM); Anion Gap 3 mmol/L; Blood Urea Nitrogen 37 mg/dL (7-17); Calcium 7.5 mg/dL (8.4-10.2); Carbon Dioxide 32 mmol/L (22-30); Chloride 87 mmol/L (98-107); Glucose 86 mg/dL (74-99); Non-African American GFR(CKD) 77 (>60 ml/min/1.73 sqM); Potassium 3.5 mmol/L (3.5-5.1); Sodium 122 mmol/L (137-145)
--- NOTE | 2024-10-31 16:45 | P.PN ---
Subjective Progress Note Date: 10/31/24 Ajay Robertson, is a 74-year-old female who presented to [facility] emergency room with a chief complaint of urinary retention, patient stated that she had a Rock catheter up to 3 weeks ago, after Rock catheter was discontinued patient had urine incontinence with a small amount of urine " dribbling " she was having suprapubic fullness and pain, evaluation in the emergency room revealed evidence of urinary retention and urinary tract infection, she was started on IV ceftriaxone in the emergency room and was admitted to medical floor. Evaluation in the emergency room also revealed evidence of hypotension and hyponatremia blood pressure on presentation was 76/50 and sodium was down to 122. Patient has a prolonged past medical history including history of hypertension, hyperlipidemia, advanced COPD, chronic hypoxic respiratory failure requiring home oxygen, diabetes mellitus type 2, congestive heart failure, and history of recently diagnosed lung cancer. On 10/30/2024 patient is alert and oriented x 3. Current vital signs temp 97.1, heart rate 74, respiratory rate 15, blood pressure 97/63 with pulse ox 100% on room air. Infectious disease services consulted. Repeat sodium level has been ordered. Rock catheter in place. Ultrasound of renal bladder and kidneys ord ered. Urine and blood cultures ordered 10/31/2024 patient was seen and examined on the medical floor she is alert and oriented x 3 in no apparent distress there is no fever or chills no headache or dizziness she reports some improvement in her abdominal pain and distention there is no nausea or vomiting no diarrhea and no urinary symptoms Rock catheter is inserted Objective - Vital Signs Vital signs: Vital Signs Temp 98.5 F 10/31/24 06:58 Pulse 90 10/31/24 06:58 Resp 15 10/31/24 06:58 BP 92/58 10/31/24 06:58 Pulse Ox 96 10/31/24 08:58 FiO2 Intake & Output 10/30/24 10/31/24 10/31/24 18:59 06:59 18:59 Output Total 750 700 Balance -750 -700 Weight 80.739 kg Output: Urine 750 700 Other: Voiding Method Indwelling Catheter Indwelling Catheter # Bowel Movements 1 1 - Exam In general patient is alert and oriented x 3 in no distress HEENT head normocephalic and atraumatic Neck is supple no JVD no goiter no lymphadenopathy no carotid bruit Chest examination is clear to auscultation no crackles no wheezing Cardiac exam reveals regular heart sounds S1 and S2 no gallops no murmurs Abdomen is soft nontender no organomegaly with normal bowel sounds Extremity exam reveals 3+ edema no cyanosis or clubbing Neurological examination reveals no gross focal deficits - Labs CBC & Chem 7: 10/31/24 03:37 10/31/24 14:36 Labs: Abnormal Lab Results - Last 24 Hours (Table) 10/30/24 10/30/24 10/30/24 Range/Units 12:45 16:47 17:33 RBC (4.10-5.20) X 10*6/uL Hgb (12.0-15.0) g/dL Hct (37.2-46.3) % MCV (80.0-97.0) FL MCHC (32.0-37.0) g/dL RDW (11.5-14.5) % Immature Gran # (0.00-0.04) X 10*3/uL Sodium 129 L (137-145) mmol/L Chloride 94 L (98-107) mmol/L Carbon Dioxide 31 H (22-30) mmol/L BUN 47 H (7-17) mg/dL BUN/Creatinine Ratio (12.00-20.00) Ratio Glucose 46 L* (74-99) mg/dL POC Glucose (mg/dL) 40 L* 48 L* (70-110) mg/dL Calcium 7.5 L (8.4-10.2) mg/dL Total Bilirubin (0.3-1.2) mg/dL Total Protein 5.3 L (6.3-8.2) g/dL Albumin 2.8 L (3.5-5.0) g/dL Albumin/Globulin Ratio (1.60-3.17) Ratio 10/30/24 10/30/24 10/30/24 Range/Units 18:00 18:27 19:08 RBC (4.10-5.20) X 10*6/uL Hgb (12.0-15.0) g/dL Hct (37.2-46.3) % MCV (80.0-97.0) FL MCHC (32.0-37.0) g/dL RDW (11.5-14.5) % Immature Gran # (0.00-0.04) X 10*3/uL Sodium (137-145) mmol/L Chloride (98-107) mmol/L Carbon Dioxide (22-30) mmol/L BUN (7-17) mg/dL BUN/Creatinine Ratio (12.00-20.00) Ratio Glucose (74-99) mg/dL POC Glucose (mg/dL) 56 L 53 L 254 H (70-110) mg/dL Calcium (8.4-10.2) mg/dL Total Bilirubin (0.3-1.2) mg/dL Total Protein (6.3-8.2) g/dL Albumin (3.5-5.0) g/dL Albumin/Globulin Ratio (1.60-3.17) Ratio 10/30/24 10/31/24 10/31/24 Range/Units 23:52 00:28 03:37 RBC 2.51 L (4.10-5.20) X 10*6/uL Hgb 7.6 L (12.0-15.0) g/dL Hct 24.4 L (37.2-46.3) % MCV 97.2 H (80.0-97.0) FL MCHC 31.1 L (32.0-37.0) g/dL RDW 14.9 H (11.5-14.5) % Immature Gran # 0.05 H (0.00-0.04) X 10*3/uL Sodium (137-145) mmol/L Chloride (98-107) mmol/L Carbon Dioxide (22-30) mmol/L BUN (7-17) mg/dL BUN/Creatinine Ratio (12.00-20.00) Ratio Glucose (74-99) mg/dL POC Glucose (mg/dL) 32 L* 112 H (70-110) mg/dL Calcium (8.4-10.2) mg/dL Total Bilirubin (0.3-1.2) mg/dL Total Protein (6.3-8.2) g/dL Albumin (3.5-5.0) g/dL Albumin/Globulin Ratio (1.60-3.17) Ratio 10/31/24 10/31/24 10/31/24 Range/Units 03:37 06:07 06:41 RBC (4.10-5.20) X 10*6/uL Hgb (12.0-15.0) g/dL Hct (37.2-46.3) % MCV (80.0-97.0) FL MCHC (32.0-37.0) g/dL RDW (11.5-14.5) % Immature Gran # (0.00-0.04) X 10*3/uL Sodium 131 L (137-145) mmol/L Chloride 93 L (98-107) mmol/L Carbon Dioxide (22-30) mmol/L BUN 39.6 H (7-17) mg/dL BUN/Creatinine Ratio 49.50 H (12.00-20.00) Ratio Glucose 33 A* (74-99) mg/dL POC Glucose (mg/dL) 51 L 113 H (70-110) mg/dL Calcium 7.4 L (8.4-10.2) mg/dL Total Bilirubin <0.2 L (0.3-1.2) mg/dL Total Protein 4.8 L (6.3-8.2) g/dL Albumin 2.8 L (3.5-5.0) g/dL Albumin/Globulin Ratio 1.40 L (1.60-3.17) Ratio Microbiology - Last 24 Hours (Table) 10/29/24 15:17 Blood Culture Gram Stain - Preliminary Blood 10/29/24 20:50 Urine Culture - Preliminary Urine,Catheterized Gram Neg Bacilli 10/29/24 13:14 Urine Culture - Preliminary Urine,Voided Gram Neg Bacilli Assessment and Plan Plan: Urinary tract infection Sepsis, with hypotension Severe hyponatremia Urinary retention Acute kidney injury with elevated BUN and creatinine Underlying history of advanced COPD Underlying history of hypertension Underlying history of hyperlipidemia Underlying history of chronic hypoxic respiratory failure maintained on home oxygen Underlying history of diabetes mellitus Underlying history of degenerative disc disease and osteoarthritis At this time patient was seen and examined Home medications reviewed and reordered Patient was started on IV ceftriaxone and IV fluid in the emergency room Blood culture and urine culture ordered Infectious disease consultation requested Will follow closely
[2024-10-31 16:49] LABS: Glucose,Whole Blood 93 mg/dL (70-110)
[2024-10-31] MEDS: SODIUM CHLORIDE 0.9% 1,000 ML IV SCH (17:18)
[2024-10-31 22:08] LABS: Glucose,Whole Blood 98 mg/dL (70-110)
--- NOTE | 2024-11-01 03:27 | P.CNPUL ---
History of Present Illness Consult date: 11/01/24 Requesting physician: Davy Diallo Reason for consult: lung mass Chief complaint: Urinary retention History of present illness: Patient is 74-year-old female with multiple significant comorbidities including diabetes, hyperlipidemia, heart failure, obesity, nonambulatory, [facility] resident, chronic oxygen dependence, previous tobacco use, and recent finding of right midlung mass. CT of the chest from June, remarkable for lobulated right upper/middle lobe mass measuring 7.1 cm concerning for malignancy. Follow-up PET scan from Aug, 2024 redemonstrated the right middle lobe masslike conso lidation measuring 6 x 3.5 cm with an SUV value of 16.3. No FDG avid lymph nodes. She did see Dr. Davis in the Pulmonary office, who felt the patient a poor candidate for diagnostic bronchoscopy. She was referred to radiation oncology. Patient presented to the emergency department back on 10/29/2024 primary with urinary complaints. Apparently had an indwelling urinary catheter that was evita ananya approximately 3 weeks ago. She was having issues with urinary retention. Rock catheter was reinserted. Urine cultures growing Proteus Mirabilis. Blood culture positive for Clostridium paraputrificum, likely contamination. Patient is not on any antibiotics. Infectious diseases is following. Also, patient having significant abdominal distention. CT of the abdomen/pelvis remarkable for development of dilated small and large bowel without visualized transition point. Findings concerning for ileus versus distal colonic obstruction. 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 Small perihepatic ascites. Other recent lab work from yesterday including a CBC with a WBC count of 9.3, hemoglobin 7.6, platelets 201. CMP: Sodium 122, potassium 3.5, chloride 87, serum bicarb 32, BUN 37, creatinine 0.78, glucose 86. She was previously hypoglycemic with a blood sugar of 32 g/dL, which has since improved. She does take insulin. Patient currently being evaluated on the general medical floor. She is awake and alert. On 2 L/min nasal cannula, which [facility]. She denies any pulmonary complaints. She denies history of COPD or asthma. Chest x-ray redemonstrating the right perihilar density her abdomen is markedly distended, but nontender. No nausea or vomiting. Last bowel movement was reportedly yesterday. Did have some so apsuds enema yesterday. General surgery following. Afebrile. Hemodynamics are stable at this time. Review of Systems REVIEW OF SYSTEMS: CONSTITUTIONAL: Denies any recent significant weight loss or weight gain. EYES: Denies change in vision. EARS, NOSE, MOUTH, THROAT: Denies headaches, denies sore throat. CARDIOVASCULAR: Denies chest pain, palpitations or syncopal episodes. RESPIRATORY: Denies shortness of breath, cough, congestion or hemoptysis. GASTROINTESTINAL: Denies change in appetite, abdominal pain, nausea and vomiting, or diarrhea. Endorses intermittent issues with constipation and abdominal distention. GENITOURINARY: Reports urinary retention issues and dribbling since removal of previous indwelling urinary catheter. Denies any dysuria, hematuria, flank pain MUSKULOSKELETAL: Denies pain, denies swelling. INTEGUMENTARY: Denies rash, denies eczema. Chronic right heel pressure injury, healing well NEUROLOGICAL: Denies recent memory loss, no recent seizure activity. PSYCHIATRIC: Denies anxiety, denies depression. HEMATOLOGIC/LYMPHATIC: Denies anemia, denies enlarged lymph node Past Medical History Past Medical History: Cancer, Heart Failure, COPD, Diabetes Mellitus, GERD/Reflux, Hyperlipidemia, Thyroid Disorder Additional Past Medical History / Comment(s): home O2 3-6L per pt., recent dx of lung Cancer (pt stated hasn't started tx yet) History of Any Multi-Drug Resistant Organisms: None Reported Past Surgical History: Cholecystectomy Additional Past Surgical History / Comment(s): foot Left plate and pins Past Anesthesia/Blood Transfusion Reactions: No Reported Reaction Past Psychological History: Anxiety Additional Psychological History / Comment(s): Anxiety Smoking Status: Former smoker Past Alcohol Use History: None Reported Additional Past Alcohol Use History / Comment(s): STARTED SMOKING AT AGE 16- quit 2019 Past Drug Use History: None Reported Additional Drug Use History / Comment(s): RARE USE OF MARIJUANA - Past Family History Mother Family Medical History: Hypertension Father Family Medical History: Cancer Medications and Allergies Home Medications Medication Instructions Recorded Confirmed Type Albuterol Inhaler [Ventolin Hfa 2 puff INHALATION RT-Q6H PRN 01/08/15 10/29/24 History Inhaler] Ergocalciferol [Vitamin D2 (1250 1,250 mcg PO MO 07/04/24 10/29/24 History Mcg = 73098 Iu)] traZODone HCL [Desyrel] 25 mg PO HS@2100 07/04/24 10/29/24 History Budesonide/Formoterol Fumarate 2 puff INHALATION RT-BID 08/09/24 10/29/24 History [Symbicort 160-4.5 Mcg Inhaler] Docusate [Colace] 100 mg PO DAILY 08/09/24 10/29/24 History Folic Acid 1 mg PO DAILY 08/09/24 10/29/24 History Insulin Glargine (Lantus) [Lantus 35 unit SQ HS@2100 08/09/24 10/29/24 History Vial] Ipratropium-Albuterol Nebulize 3 ml INHALATION RT-Q6H PRN 08/09/24 10/29/24 History [Duoneb 0.5 mg-3 mg/3 ml Soln] Metoprolol Tartrate [Lopressor] 25 mg PO BID 08/09/24 10/29/24 History Tamsulosin [Flomax] 0.4 mg PO HS 08/29/24 10/29/24 History Empagliflozin [Jardiance] 10 mg PO DAILY 09/11/24 10/29/24 History Magnesium Oxide [Mag-Ox] 400 mg PO TID 09/11/24 10/29/24 History Sennosides/Docusate Sodium [Senna 1 tab PO BID 09/11/24 10/29/24 History Plus 8.6-50 mg Tablet] HYDROcodone/APAP 10-325MG [Majestic 1 tab PO TID PRN #4 tab 09/19/24 10/29/24 Rx 10-325] Acetaminophen Tab [Tylenol] 650 mg PO Q6H PRN 10/29/24 10/29/24 History Apixaban [Eliquis] 5 mg PO BID 10/29/24 10/29/24 History Lactulose [Cephulac] 20 gm PO BID 10/29/24 10/29/24 History Spironolactone [Aldactone] 12.5 mg PO DAILY 10/29/24 10/29/24 History Torsemide [Demadex] 10 mg PO DAILY 10/29/24 10/29/24 History Allergies Allergy/AdvReac Type Severity Reaction Status Date / Time Penicillins Allergy Rash/Hives Verified 10/29/24 14:47 Physical Exam Vitals: Vital Signs Temp Pulse Resp BP BP Pulse Ox 10/31/24 20:10 97.9 F 85 15 100/54 98 10/31/24 13:44 97.9 F 87 15 91/59 99 10/31/24 08:58 96 10/31/24 08:50 87 15 10/31/24 06:58 98.5 F 90 15 92/58 97 Intake and Output 10/31/24 10/31/24 11/01/24 14:59 22:59 06:59 Output Total 600 Balance -600 Output: Urine 600 Other: Voiding Method Indwelling Catheter Indwelling Catheter GENERAL EXAM: Alert, 74-year-old obese female, on 2 L/min nasal cannula, comfortable in no apparent distress. HEAD: Normocephalic and atraumatic EYES: Normal reaction of pupils, equal size. NOSE: Clear with pink turbinates. THROAT: No erythema or exudates. NECK: No masses, no JVD. CHEST: No chest wall deformity. LUNGS: Equal air entry with no crackles, wheeze, rhonchi or dullness. No conversational dyspnea or accessory muscle use.. CVS: S1 and S2 normal with no audible murmur, regular rhythm. No extra heart sounds ABDOMEN: Markedly distended abdomen, periumbilical hernia, active bowel sounds, no guarding or rigidity. SPINE: No scoliosis or deformity SKIN: No rashes. Healing right heel pressure injury CENTRAL NERVOUS SYSTEM: No focal deficits, tone is normal in all 4 extremities. EXTREMITIES: There is no peripheral edema, clubbing, or cyanosis. Peripheral pulses are intact. Results - Laboratory Findings CBC and BMP: 10/31/24 03:37 10/31/24 14:36 Abnormal lab findings: Abnormal Labs 10/29/24 10/29/24 10/29/24 12:52 12:52 13:14 RBC 2.87 L Hgb 9.0 L Hct 27.2 L MCV MCHC RDW Immature Gran # Sodium 122 L Chloride 81 L Carbon Dioxide BUN 56 H Creatinine 1.31 H BUN/Creatinine Ratio Glucose 121 H POC Glucose (mg/dL) Calcium 8.2 L Total Bilirubin Alkaline Phosphatase 138 H Total Protein 6.0 L Albumin 3.2 L Albumin/Globulin Ratio Urine Appearance Turbid H Urine Protein 2+ H Urine Ketones 1+ H Urine Blood Small H Ur Leukocyte Esterase Large H Urine RBC 35 H Urine WBC >182 H Urine Bacteria Occasional H Urine Mucus Rare H Urine Yeast (Budding) Few H 10/30/24 10/30/24 10/30/24 06:52 06:53 07:23 RBC Hgb Hct MCV MCHC RDW Immature Gran # Sodium Chloride Carbon Dioxide BUN Creatinine BUN/Creatinine Ratio Glucose POC Glucose (mg/dL) 32 L* 36 L* 180 H Calcium Total Bilirubin Alkaline Phosphatase Total Protein Albumin Albumin/Globulin Ratio Urine Appearance Urine Protein Urine Ketones Urine Blood Ur Leukocyte Esterase Urine RBC Urine WBC Urine Bacteria Urine Mucus Urine Yeast (Budding) 10/30/24 10/30/24 10/30/24 12:43 12:45 13:13 RBC Hgb Hct MCV MCHC RDW Immature Gran # Sodium 129 L Chloride 94 L Carbon Dioxide 31 H BUN 47 H Creatinine BUN/Creatinine Ratio Glucose 46 L* POC Glucose (mg/dL) 51 L 63 L Calcium 7.5 L Total Bilirubin Alkaline Phosphatase Total Protein 5.3 L Albumin 2.8 L Albumin/Globulin Ratio Urine Appearance Urine Protein Urine Ketones Urine Blood Ur Leukocyte Esterase Urine RBC Urine WBC Urine Bacteria Urine Mucus Urine Yeast (Budding) 10/30/24 10/30/24 10/30/24 16:47 17:33 18:00 RBC Hgb Hct MCV MCHC RDW Immature Gran # Sodium Chloride Carbon Dioxide BUN Creatinine BUN/Creatinine Ratio Glucose POC Glucose (mg/dL) 40 L* 48 L* 56 L Calcium Total Bilirubin Alkaline Phosphatase Total Protein Albumin Albumin/Globulin Ratio Urine Appearance Urine Protein Urine Ketones Urine Blood Ur Leukocyte Esterase Urine RBC Urine WBC Urine Bacteria Urine Mucus Urine Yeast (Budding) 10/30/24 10/30/24 10/30/24 18:27 19:08 23:52 RBC Hgb Hct MCV MCHC RDW Immature Gran # Sodium Chloride Carbon Dioxide BUN Creatinine BUN/Creatinine Ratio Glucose POC Glucose (mg/dL) 53 L 254 H 32 L* Calcium Total Bilirubin Alkaline Phosphatase Total Protein Albumin Albumin/Globulin Ratio Urine Appearance Urine Protein Urine Ketones Urine Blood Ur Leukocyte Esterase Urine RBC Urine WBC Urine Bacteria Urine Mucus Urine Yeast (Budding) 10/31/24 10/31/24 10/31/24 00:28 03:37 03:37 RBC 2.51 L Hgb 7.6 L Hct 24.4 L MCV 97.2 H MCHC 31.1 L RDW 14.9 H Immature Gran # 0.05 H Sodium 131 L Chloride 93 L Carbon Dioxide BUN 39.6 H Creatinine BUN/Creatinine Ratio 49.50 H Glucose 33 A* POC Glucose (mg/dL) 112 H Calcium 7.4 L Total Bilirubin <0.2 L Alkaline Phosphatase Total Protein 4.8 L Albumin 2.8 L Albumin/Globulin Ratio 1.40 L Urine Appearance Urine Protein Urine Ketones Urine Blood Ur Leukocyte Esterase Urine RBC Urine WBC Urine Bacteria Urine Mucus Urine Yeast (Budding) 10/31/24 10/31/24 10/31/24 06:07 06:41 14:36 RBC Hgb Hct MCV MCHC RDW Immature Gran # Sodium 122 L Chloride 87 L Carbon Dioxide 32 H BUN 37 H Creatinine BUN/Creatinine Ratio Glucose POC Glucose (mg/dL) 51 L 113 H Calcium 7.5 L Total Bilirubin Alkaline Phosphatase Total Protein Albumin Albumin/Globulin Ratio Urine Appearance Urine Protein Urine Ketones Urine Blood Ur Leukocyte Esterase Urine RBC Urine WBC Urine Bacteria Urine Mucus Urine Yeast (Budding) - Diagnostic Findings Chest x-ray: image reviewed Assessment and Plan Assessment: Urinary retention UTI versus asymptomatic bacteriuria, urine culture growing Proteus Mirabilis, antibiotics being managed by infectious disease Ileus versus distal colonic obstruction, CT of the abdomen/pelvis remarkable for development of dilated small and large bowel without visualized transition point. Findings concerning for ileus versus distal colonic obstruction. 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 Small perihepatic ascites Right middle lobe lung mass; FDG avid and concerning for malignancy, felt not a suitable candidate for diagnostic bronchoscopy, was referred to radiation oncology Chronic oxygen dependence, maintained on 2 L/min nasal cannula Former tobacco smoker Chronic anemia Acute kidney injury, possibly postobstructive, improved Hyponatremia Hypoglycemia, improved Diabetes mellitus type II History of hyperlipidemia History of heart failure Obesity, with a BMI of 31.5 kg/m Nonambulatory [facility] resident Plan: No acute pulmonary symptoms. Patient's right middle lobe mass redemonstrated Previously felt to be poor candidate for diagnostic bronchoscopy with tissue biopsy Previously, referred to radiation oncology, and is waiting to start SBRT Antibiotic management per infectious disease General Surgery is consulted Urology and nephrology also following Case will be reviewed with Dr. Mello in the morning, further recommendations to follow I have personally seen and examined the patient, performed the documentation and the assessment and plan as written. Number of minutes spent on the visit:20 Time with Patient: Greater than 30
[2024-11-01 07:09] LABS: Glucose,Whole Blood 91 mg/dL (70-110)
[2024-11-01 07:57] LABS: Basophils # (A) 0.03 X 10*3/uL (0.00-0.10); Basophils % (A) 0.4 %; Eosinophils # (A) 0.16 X 10*3/uL (0.04-0.35); Eosinophils % (A) 2.1 %; HCT 23.5 % (37.2-46.3); HGB 7.5 g/dL (12.0-15.0); Immature Grans, Automated 0.40 %; Lymphocytes # (A) 1.75 X 10*3/uL (0.90-5.00); Lymphocytes % (A) 22.8 %; MCH 31.1 pg (27.0-32.0); MCHC 31.9 g/dL (32.0-37.0); MCV 97.5 FL (80.0-97.0); Monocytes # (A) 0.55 X 10*3/uL (0.20-1.00); Monocytes % (A) 7.2 %; NRBC Per 100 WBC 0 X 10*3/uL (0.00-0.01); Neutrophils # (A) 5.14 X 10*3/uL (1.80-7.70); Neutrophils % (A) 67.1 %; Platelet Count 185 X 10*3/uL (140-440); RBC 2.41 X 10*6/uL (4.10-5.20); RDW 15.0 % (11.5-14.5); WBC 7.66 X 10*3/uL (4.50-10.00)
--- NOTE | 2024-11-01 07:58 | P.CONS ---
History of Present Illness - Reason for Consult Consult date: 10/31/24 lung mass Requesting physician: Nicolette Siddiqi - Chief Complaint urinary retention - History of Present Illness Patient is a 74 year old female with multiple co-morbidities who recently established care with Dr. Ledesam for lung mass. She was to [facility] in June/2024 for SOB and fell and fell at home,she was found to be in CHF and exacerbation of COPD. CXR was suspicious for approx 4 cm RUL lung mass. CT scan of chest in June/2024 which showed 7 cm RUL mass. She had an endometrial biopsy in August/2024 because of vaginal bleeding which came back negative for malignancy. She was discharged to [facility],she had a PET scan in August/2024 which showed a suspicious uptake in RUL 6 cm mass,otherwise negative. At her office visit, it was discussed that her clinical picture is highly suggestive for bronchogenic carcinoma. But with her poor performance status and multiple co-morbodities, unsure if she would be able to tolerate a biopsy. She was to follow up with Dr. Yuen to be evaluated for biopsy. Case was also discussed with rad/onc, Dr Ferrara, he may consider definitive radiation therapy (even if tissue diagnosis could not be obtained), as she is not a candidate for concurrent chemoradiation. Patient presented to the ER for urinary hesitancy and retention. Denies dysuria, flank pain, abdominal pain, fever and chills. KUB ultrasound showed unremarkable renal ultrasound. CT abdomen without contrast revealed development of dilated small and large bowel without visualized transition point. Findings suggest ileus versus distal colonic obstruction. Small perihepatic ascites. Partial visualization of known right middle lobe pulmonary mass. Small right pleural effusion. UA suspicious for UTI. UC and BC pending. On admit sodium 122. Creatinine elevated at 1.31, GFR 41. Bun 56. WBC 9.3, hemoglobin 7.6, platelets 201,000. Urology, surgery and nephrology consulted. Review of Systems 10 point ROS is negative except as stated in the HPI Past Medical History Past Medical History: Cancer, Heart Failure, COPD, Diabetes Mellitus, GERD/Reflux, Hyperlipidemia, Thyroid Disorder Additional Past Medical History / Comment(s): home O2 3-6L per pt., recent dx of lung Cancer (pt stated hasn't started tx yet) History of Any Multi-Drug Resistant Organisms: None Reported Past Surgical History: Cholecystectomy Additional Past Surgical History / Comment(s): foot Left plate and pins Past Anesthesia/Blood Transfusion Reactions: No Reported Reaction Past Psychological History: Anxiety Additional Psychological History / Comment(s): Anxiety Smoking Status: Former smoker Past Alcohol Use History: None Reported Additional Past Alcohol Use History / Comment(s): STARTED SMOKING AT AGE 16- quit 2018 Past Drug Use History: None Reported Additional Drug Use History / Comment(s): RARE USE OF MARIJUANA - Past Family History Mother Family Medical History: Hypertension Father Family Medical History: Cancer Medications and Allergies Home Medications Medication Instructions Recorded Confirmed Type Albuterol Inhaler [Ventolin Hfa 2 puff INHALATION RT-Q6H PRN 01/08/15 10/29/24 History Inhaler] Ergocalciferol [Vitamin D2 (1250 1,250 mcg PO MO 07/04/24 10/29/24 History Mcg = 44592 Iu)] traZODone HCL [Desyrel] 25 mg PO HS@2100 07/04/24 10/29/24 History Budesonide/Formoterol Fumarate 2 puff INHALATION RT-BID 08/09/24 10/29/24 History [Symbicort 160-4.5 Mcg Inhaler] Docusate [Colace] 100 mg PO DAILY 08/09/24 10/29/24 History Folic Acid 1 mg PO DAILY 08/09/24 10/29/24 History Insulin Glargine (Lantus) [Lantus 35 unit SQ HS@2100 08/09/24 10/29/24 History Vial] Ipratropium-Albuterol Nebulize 3 ml INHALATION RT-Q6H PRN 08/09/24 10/29/24 History [Duoneb 0.5 mg-3 mg/3 ml Soln] Metoprolol Tartrate [Lopressor] 25 mg PO BID 08/09/24 10/29/24 History Tamsulosin [Flomax] 0.4 mg PO HS 08/29/24 10/29/24 History Empagliflozin [Jardiance] 10 mg PO DAILY 09/11/24 10/29/24 History Magnesium Oxide [Mag-Ox] 400 mg PO TID 09/11/24 10/29/24 History Sennosides/Docusate Sodium [Senna 1 tab PO BID 09/11/24 10/29/24 History Plus 8.6-50 mg Tablet] HYDROcodone/APAP 10-325MG [Axis 1 tab PO TID PRN #4 tab 09/19/24 10/29/24 Rx 10-325] Acetaminophen Tab [Tylenol] 650 mg PO Q6H PRN 10/29/24 10/29/24 History Apixaban [Eliquis] 5 mg PO BID 10/29/24 10/29/24 History Lactulose [Cephulac] 20 gm PO BID 10/29/24 10/29/24 History Spironolactone [Aldactone] 12.5 mg PO DAILY 10/29/24 10/29/24 History Torsemide [Demadex] 10 mg PO DAILY 10/29/24 10/29/24 History Allergies Allergy/AdvReac Type Severity Reaction Status Date / Time Penicillins Allergy Rash/Hives Verified 10/29/24 14:47 Physical Exam Vitals: Vital Signs Temp Pulse Resp BP BP Pulse Ox 10/31/24 08:58 96 10/31/24 06:58 98.5 F 90 15 92/58 97 10/31/24 01:02 97.7 F 89 16 108/74 98 10/30/24 19:15 98.2 F 86 16 104/64 92 L 10/30/24 15:15 102/60 Intake and Output 10/30/24 10/31/24 10/31/24 22:59 06:59 14:59 Output Total 750 700 Balance -750 -700 Output: Urine 750 700 Other: Voiding Method Indwelling Catheter # Bowel Movements 1 1 - Constitutional General appearance: no acute distress - EENT Eyes: anicteric sclerae, EOMI ENT: hearing grossly normal - Respiratory breathing even and unlabored - Cardiovascular skin warm and dry - Gastrointestinal General gastrointestinal: soft, no tenderness - Integumentary Integumentary: no cyanotic, no jaundiced - Musculoskeletal Musculoskeletal: generalized weakness - Psychiatric Psychiatric: A&O x's 3 Results CBC & Chem 7: 10/31/24 03:37 10/31/24 14:36 Labs: Abnormal Lab Results - Last 24 Hours (Table) 10/30/24 10/30/24 10/30/24 Range/Units 12:43 12:45 13:13 RBC (4.10-5.20) X 10*6/uL Hgb (12.0-15.0) g/dL Hct (37.2-46.3) % MCV (80.0-97.0) FL MCHC (32.0-37.0) g/dL RDW (11.5-14.5) % Immature Gran # (0.00-0.04) X 10*3/uL Sodium 129 L (137-145) mmol/L Chloride 94 L (98-107) mmol/L Carbon Dioxide 31 H (22-30) mmol/L BUN 47 H (7-17) mg/dL BUN/Creatinine Ratio (12.00-20.00) Ratio Glucose 46 L* (74-99) mg/dL POC Glucose (mg/dL) 51 L 63 L (70-110) mg/dL Calcium 7.5 L (8.4-10.2) mg/dL Total Bilirubin (0.3-1.2) mg/dL Total Protein 5.3 L (6.3-8.2) g/dL Albumin 2.8 L (3.5-5.0) g/dL Albumin/Globulin Ratio (1.60-3.17) Ratio 10/30/24 10/30/24 10/30/24 Range/Units 16:47 17:33 18:00 RBC (4.10-5.20) X 10*6/uL Hgb (12.0-15.0) g/dL Hct (37.2-46.3) % MCV (80.0-97.0) FL MCHC (32.0-37.0) g/dL RDW (11.5-14.5) % Immature Gran # (0.00-0.04) X 10*3/uL Sodium (137-145) mmol/L Chloride (98-107) mmol/L Carbon Dioxide (22-30) mmol/L BUN (7-17) mg/dL BUN/Creatinine Ratio (12.00-20.00) Ratio Glucose (74-99) mg/dL POC Glucose (mg/dL) 40 L* 48 L* 56 L (70-110) mg/dL Calcium (8.4-10.2) mg/dL Total Bilirubin (0.3-1.2) mg/dL Total Protein (6.3-8.2) g/dL Albumin (3.5-5.0) g/dL Albumin/Globulin Ratio (1.60-3.17) Ratio 10/30/24 10/30/24 10/30/24 Range/Units 18:27 19:08 23:52 RBC (4.10-5.20) X 10*6/uL Hgb (12.0-15.0) g/dL Hct (37.2-46.3) % MCV (80.0-97.0) FL MCHC (32.0-37.0) g/dL RDW (11.5-14.5) % Immature Gran # (0.00-0.04) X 10*3/uL Sodium (137-145) mmol/L Chloride (98-107) mmol/L Carbon Dioxide (22-30) mmol/L BUN (7-17) mg/dL BUN/Creatinine Ratio (12.00-20.00) Ratio Glucose (74-99) mg/dL POC Glucose (mg/dL) 53 L 254 H 32 L* (70-110) mg/dL Calcium (8.4-10.2) mg/dL Total Bilirubin (0.3-1.2) mg/dL Total Protein (6.3-8.2) g/dL Albumin (3.5-5.0) g/dL Albumin/Globulin Ratio (1.60-3.17) Ratio 10/31/24 10/31/24 10/31/24 Range/Units 00:28 03:37 03:37 RBC 2.51 L (4.10-5.20) X 10*6/uL Hgb 7.6 L (12.0-15.0) g/dL Hct 24.4 L (37.2-46.3) % MCV 97.2 H (80.0-97.0) FL MCHC 31.1 L (32.0-37.0) g/dL RDW 14.9 H (11.5-14.5) % Immature Gran # 0.05 H (0.00-0.04) X 10*3/uL Sodium 131 L (137-145) mmol/L Chloride 93 L (98-107) mmol/L Carbon Dioxide (22-30) mmol/L BUN 39.6 H (7-17) mg/dL BUN/Creatinine Ratio 49.50 H (12.00-20.00) Ratio Glucose 33 A* (74-99) mg/dL POC Glucose (mg/dL) 112 H (70-110) mg/dL Calcium 7.4 L (8.4-10.2) mg/dL Total Bilirubin <0.2 L (0.3-1.2) mg/dL Total Protein 4.8 L (6.3-8.2) g/dL Albumin 2.8 L (3.5-5.0) g/dL Albumin/Globulin Ratio 1.40 L (1.60-3.17) Ratio 10/31/24 10/31/24 Range/Units 06:07 06:41 RBC (4.10-5.20) X 10*6/uL Hgb (12.0-15.0) g/dL Hct (37.2-46.3) % MCV (80.0-97.0) FL MCHC (32.0-37.0) g/dL RDW (11.5-14.5) % Immature Gran # (0.00-0.04) X 10*3/uL Sodium (137-145) mmol/L Chloride (98-107) mmol/L Carbon Dioxide (22-30) mmol/L BUN (7-17) mg/dL BUN/Creatinine Ratio (12.00-20.00) Ratio Glucose (74-99) mg/dL POC Glucose (mg/dL) 51 L 113 H (70-110) mg/dL Calcium (8.4-10.2) mg/dL Total Bilirubin (0.3-1.2) mg/dL Total Protein (6.3-8.2) g/dL Albumin (3.5-5.0) g/dL Albumin/Globulin Ratio (1.60-3.17) Ratio Microbiology - Last 24 Hours (Table) 10/29/24 20:50 Urine Culture - Preliminary Urine,Catheterized Gram Neg Bacilli 10/29/24 13:14 Urine Culture - Preliminary Urine,Voided Gram Neg Bacilli 10/29/24 15:17 Blood Culture Gram Stain - Preliminary Blood CT scan - abdomen: report reviewed CT scan - pelvis: report reviewed US - abdomen: report reviewed Assessment and Plan (1) Hyponatremia Current Visit: Yes Status: Acute Code(s): E87.1 - HYPO-OSMOLALITY AND HYPONATREMIA SNOMED Code(s): 08940961 (2) Urinary retention Current Visit: Yes Status: Acute Code(s): R33.9 - RETENTION OF URINE, UNSPECIFIED SNOMED Code(s): 444051753 (3) Lung mass Current Visit: No Status: Acute Priority: High Code(s): R91.8 - OTHER NONSPECIFIC ABNORMAL FINDING OF LUNG FIELD SNOMED Code(s): 615400711 Plan: Urinary retention, UTI: Presented to the ER from [facility] for urinary hesitancy and retention. Denies dysuria, flank pain, abdominal pain, fever and chills. -KUB ultrasound showed unremarkable renal ultrasound. -CT abdomen without contrast revealed development of dilated small and large bowel without visualized transition point. Findings suggest ileus versus distal colonic obstruction. Small perihepatic ascites. Partial visualization of known right middle lobe pulmonary mass. Small right pleural effusion. -UA suspicious for UTI. UC and BC pending. -On admit sodium 122, improved to 131 today. STEWART, with elevated creatinine at 1.31, GFR 41. Bun 56. Kidney function improving, creatinine 0.8, GFR 78 -Urology, surgery and nephrology following Lung mass: -Oncology history as dictated in the HPI -CT scan of chest in June/2024 which showed 7 cm RUL mass. -PET scan in August/2024 which showed a suspicious uptake in RUL 6 cm mass,otherwi se negative. -It was discussed that her clinical picture is highly suggestive for bronchogenic carcinoma. But with her poor performance status and multiple co- morbodities, unsure if she would be able to tolerate a biopsy. She was to follow up with Dr. Yuen to be evaluated for biopsy, pt unsure if she followed up or if their were plans for biopsy -Pulmonary consult placed -Case was also discussed with rad/onc, Dr Ferrara, he may consider definitive radiation therapy (even if tissue diagnosis could not be obtained). She is not a candidate for concurrent chemoradiation Spoke with Dr. Ferrara today, she had her first f/u with him, but due to reported urinary complaints and distention he sent her to the ER for further evaluation He will plan to reschedule outpt f/u to further discuss XRT
--- NOTE | 2024-11-01 08:44 | XR ---
EXAMINATION TYPE: XR abdomen 2V DATE OF EXAM: 11/01/2024 8:32 AM COMPARISON: CT 10/30/2024 CLINICAL INDICATION: Female, 74 years old with history of fecal impaction follow up, TECHNIQUE: XR abdomen 2V view(s) obtained. FINDINGS: Nonspecific bowel gas is present. There are dilated loops of small bowel within the left abdomen. Abu ndant bowel gas throughout the colon. No significant fecal retention evident at this time Psoas margins are normal. No organomegaly is present. IMPRESSION: 1. Dilated small bowel loops left midabdomen. Abundant colonic bowel gas is present without changes t o suggest obstruction or fecal retention. Consider some ileus. Follow-up recommended. [facility], , 11/01/2024 8:42 AM
--- NOTE | 2024-11-01 09:32 | P.PN ---
Subjective Progress Note Date: 11/01/24 Ajay Robertson, is a 74-year-old female who presented to [facility] emergency room with a chief complaint of urinary retention, patient stated that she had a Rock catheter up to 3 weeks ago, after Rock catheter was discontinued patient had urine incontinence with a small amount of urine " dribbling " she was having suprapubic fullness and pain, evaluation in the emergency room revealed evidence of urinary retention and urinary tract infection, she was started on IV ceftriaxone in the emergency room and was admitted to medical floor. Evaluation in the emergency room also revealed evidence of hypotension and hyponatremia blood pressure on presentation was 76/50 and sodium was down to 122. Patient has a prolonged past medical history including history of hypertension, hyperlipidemia, advanced COPD, chronic hypoxic respiratory failure requiring home oxygen, diabetes mellitus type 2, congestive heart failure, and history of recently diagnosed lung cancer. On 10/30/2024 patient is alert and oriented x 3. Current vital signs temp 97.1, heart rate 74, respiratory rate 15, blood pressure 97/63 with pulse ox 100% on room air. Infectious disease services consulted. Repeat sodium level has been ordered. Rock catheter in place. Ultrasound of renal bladder and kidneys ord ered. Urine and blood cultures ordered 10/31/2024 patient was seen and examined on the medical floor she is alert and oriented x 3 in no apparent distress there is no fever or chills no headache or dizziness she reports some improvement in her abdominal pain and distention there is no nausea or vomiting no diarrhea and no urinary symptoms Rock catheter is inserted On 11/01/2024 patient is alert and oriented x 3. Current vital signs temp 98.4, heart rate 90, respiratory rate 15, blood pressure 110/62 with pulse ox of 96% on 2 L. Patient denies chest pain or shortness of breath. Patient denies nausea vomiting or diarrhea. Patient denies any urinary burning or frequency. Patient has had multiple bowel movements. Abdomen x-ray completed showing dilated small bowel loops left mid abdomen consider small ileus no signs of obstruction or fecal retention Objective - Vital Signs Vital signs: Vital Signs Temp 98.4 F 11/01/24 07:13 Pulse 90 11/01/24 07:13 Resp 15 11/01/24 07:13 BP 110/62 11/01/24 07:13 Pulse Ox 96 11/01/24 07:13 FiO2 Intake & Output 10/31/24 11/01/24 11/01/24 18:59 06:59 18:59 Intake Total 1082 Output Total 600 1500 Balance -600 -418 Intake: Oral 1082 Output: Urine 600 1500 Other: Voiding Method Indwelling Catheter Indwelling Catheter - Exam In general patient is alert and oriented x 3 in no distress HEENT head normocephalic and atraumatic Neck is supple no JVD no goiter no lymphadenopathy no carotid bruit Chest examination is clear to auscultation no crackles no wheezing Cardiac exam reveals regular heart sounds S1 and S2 no gallops no murmurs Abdomen is soft nontender no organomegaly with normal bowel sounds Extremity exam reveals 3+ edema no cyanosis or clubbing Neurological examination reveals no gross focal deficits - Labs CBC & Chem 7: 11/01/24 04:11 10/31/24 14:36 Labs: Abnormal Lab Results - Last 24 Hours (Table) 10/31/24 11/01/24 Range/Units 14:36 04:11 RBC 2.41 L (4.10-5.20) X 10*6/uL Hgb 7.5 L (12.0-15.0) g/dL Hct 23.5 L (37.2-46.3) % MCV 97.5 H (80.0-97.0) FL MCHC 31.9 L (32.0-37.0) g/dL RDW 15.0 H (11.5-14.5) % Sodium 122 L (137-145) mmol/L Chloride 87 L (98-107) mmol/L Carbon Dioxide 32 H (22-30) mmol/L BUN 37 H (7-17) mg/dL Calcium 7.5 L (8.4-10.2) mg/dL Microbiology - Last 24 Hours (Table) 10/29/24 20:50 Urine Culture - Final Urine,Catheterized Proteus mirabilis 10/29/24 13:14 Urine Culture - Final Urine,Voided Proteus mirabilis 10/29/24 15:17 Blood Culture Gram Stain - Final Blood Blood Culture - Final Clostridium paraputrificum Assessment and Plan Assessment: Urinary tract infection Sepsis, with hypotension Severe hyponatremia Urinary retention Lung cancer Acute kidney injury with elevated BUN and creatinine Underlying history of advanced COPD Underlying history of hypertension Underlying history of hyperlipidemia Underlying history of chronic hypoxic respiratory failure maintained on home o xygen Underlying history of diabetes mellitus Underlying history of degenerative disc disease and osteoarthritis At this time patient was seen and examined Home medications reviewed and reordered Blood culture and urine culture ordered Infectious disease consultation requested Will follow closely
[2024-11-01 10:18] LABS: ALT 8 U/L (8-44); AST 17 U/L (13-35); Albumin 2.7 g/dL (3.8-4.9); Albumin/Globulin Ratio 1.42 Ratio (1.60-3.17); Alkaline Phosphatase 101 U/L (41-126); Anion Gap 12.60 mmol/L (4.00-12.00); BUN/Creat Ratio 45.71 Ratio (12.00-20.00); Blood Urea Nitrogen 32.0 mg/dL (9.0-27.0); Calcium 7.2 mg/dL (8.7-10.3); Carbon Dioxide 24.4 mmol/L (21.6-31.8); Chloride 91 mmol/L (96-109); Globulin 1.9 g/dL (1.6-3.3); Glucose 90 mg/dL (70-110); Potassium 3.7 mmol/L (3.5-5.5); Sodium 128 mmol/L (135-145); Total Protein 4.6 g/dL (6.2-8.2)
[2024-11-01 11:47] LABS: Glucose,Whole Blood 109 mg/dL (70-110)
--- NOTE | 2024-11-01 12:45 | P.PN ---
Subjective Progress Note Date: 11/01/24 SURGICAL PROGRESS NOTE CHIEF COMPLAINT: Urine retention HISTORY OF PRESENT ILLNESS: Surgical service following in regards to patient's constipation and fecaloma. Patient had subset enemas given yesterday with 2 bowel movements reported. Patient has been eating solid food with fruit and chips. Even though she has been receiving clear liquid trays. She denies any abdominal pain. Abdomen is softer. She does feel like she she needs to have bowel movement. Abdominal x-ray reports dilated small bowel loops left mid abdomen. Abundant colonic bowel gas is present without changes to suggest obstruction or fecal retention. Consider some ileus. Afebrile. WBC 7.6 Hgb 7.5 platelets 185 sodium 128 PHYSICAL EXAM: VITAL SIGNS: Reviewed. GENERAL: no acute distress. ABDOMEN: Softer. Less distended. Nontender. Umbilical hernia reducible. NEUROLOGIC: Alert and oriented. Cranial nerves II through XII grossly intact. ASSESSMENT: 1. Rectal fecaloma with ileus 2. Constipation PLAN: - Start lactulose daily - Advance diet to regular - Nephrology management of hyponatremia Physician First Mate note has been reviewed by physician. Signing provider agrees with the documented findings, assessment, and plan of care. Objective - Vital Signs Vital signs: Vital Signs Temp 98.4 F 11/01/24 07:13 Pulse 90 11/01/24 07:13 Resp 15 11/01/24 07:13 BP 110/62 11/01/24 07:13 Pulse Ox 96 11/01/24 07:13 FiO2 Intake & Output 10/31/24 11/01/24 11/01/24 18:59 06:59 18:59 Intake Total 1082 Output Total 600 1500 Balance -600 -418 Intake: Oral 1082 Output: Urine 600 1500 Other: Voiding Method Indwelling Catheter Indwelling Catheter Indwelling Catheter # Bowel Movements 3 - Labs CBC & Chem 7: 11/01/24 04:11 11/01/24 10:19 Labs: Abnormal Lab Results - Last 24 Hours (Table) 10/31/24 11/01/24 11/01/24 Range/Units 14:36 04:11 04:11 RBC 2.41 L (4.10-5.20) X 10*6/uL Hgb 7.5 L (12.0-15.0) g/dL Hct 23.5 L (37.2-46.3) % MCV 97.5 H (80.0-97.0) FL MCHC 31.9 L (32.0-37.0) g/dL RDW 15.0 H (11.5-14.5) % Sodium 122 L 128 L (137-145) mmol/L Chloride 87 L 91 L (98-107) mmol/L Carbon Dioxide 32 H (22-30) mmol/L Anion Gap 12.60 H (4.00-12.00) mmol/L BUN 37 H 32.0 H (7-17) mg/dL BUN/Creatinine Ratio 45.71 H (12.00-20.00) Ratio Calcium 7.5 L 7.2 L (8.4-10.2) mg/dL Total Bilirubin <0.2 L (0.3-1.2) mg/dL Total Protein 4.6 L (6.2-8.2) g/dL Albumin 2.7 L (3.8-4.9) g/dL Albumin/Globulin Ratio 1.42 L (1.60-3.17) Ratio Microbiology - Last 24 Hours (Table) 10/29/24 20:50 Urine Culture - Final Urine,Catheterized Proteus mirabilis 10/29/24 13:14 Urine Culture - Final Urine,Voided Proteus mirabilis 10/29/24 15:17 Blood Culture Gram Stain - Final Blood Blood Culture - Final Clostridium paraputrificum
--- NOTE | 2024-11-01 13:51 | P.PN ---
Subjective Patient is seen at bedside today, patient is alert and oriented x 3. Patient had 4 bowel movements since the enema yesterday, abdominal distention has improved. She denies any abdominal pain or discomfort, Denies any chest pain or shortness of breath. eats and drinks well. Objective - Vital Signs Vital signs: Vital Signs Temp 98.4 F 11/01/24 07:13 Pulse 90 11/01/24 07:13 Resp 15 11/01/24 07:13 BP 110/62 11/01/24 07:13 Pulse Ox 96 11/01/24 07:13 FiO2 Intake & Output 10/31/24 11/01/24 11/01/24 18:59 06:59 18:59 Intake Total 1082 Output Total 600 1500 Balance -600 -418 Intake: Oral 1082 Output: Urine 600 1500 Other: Voiding Method Indwelling Catheter Indwelling Catheter - Exam General: Patient appears well, alert and oriented Lungs: clear to auscultation bilaterally Heart: S1 and S2 normal, no murmurs Abdomen distended with left upper and lower Quadrant Pain Lower extremities Scales and discolorations bilaterally, No edema CAD DRAFTSMAN exam grossly intact - Labs CBC & Chem 7: 11/02/24 04:39 11/02/24 04:39 Labs: Abnormal Lab Results - Last 24 Hours (Table) 10/31/24 11/01/24 Range/Units 14:36 04:11 RBC 2.41 L (4.10-5.20) X 10*6/uL Hgb 7.5 L (12.0-15.0) g/dL Hct 23.5 L (37.2-46.3) % MCV 97.5 H (80.0-97.0) FL MCHC 31.9 L (32.0-37.0) g/dL RDW 15.0 H (11.5-14.5) % Sodium 122 L (137-145) mmol/L Chloride 87 L (98-107) mmol/L Carbon Dioxide 32 H (22-30) mmol/L BUN 37 H (7-17) mg/dL Calcium 7.5 L (8.4-10.2) mg/dL Microbiology - Last 24 Hours (Table) 10/29/24 20:50 Urine Culture - Final Urine,Catheterized Proteus mirabilis 10/29/24 13:14 Urine Culture - Final Urine,Voided Proteus mirabilis 10/29/24 15:17 Blood Culture Gram Stain - Final Blood Blood Culture - Final Clostridium paraputrificum Assessment and Plan Assessment: 1. Hypovolemia Hyponatremia: sodium on admission was 122, got to 131 yesterday with the Normal saline, dropped back to 122 on D5W. She was switched back to normal saline yesterday TSH is 1.3 (07/17/24), Urine osmolarity and Urine sodium ordered today 2. STEWART from lower urinary tract obstruction, and possibly from hypotension. Improved. UA is suggestive of UTI. Creatinine on admission was 1.31, today is 0.78 3. Bactiuria: being followed by ID, not on antibiotics currently 4. Urinary retention Status post Rock catheter placement 5. Ilius with constipation. being followed by surgery 6. Type 2 DM Plan: Increase saline to 100cc/hr Check urine osmolality and random urine sodium Recheck sodium in 4 hs Continue with Rock catheter continue to hold Torsemide Repeat Labs in am Patient is seen and examined. Agree with resident's findings, assessment and plan.
--- NOTE | 2024-11-01 16:15 | P.PN ---
Subjective Progress Note Date: 10/31/24 Principal diagnosis: Reason for follow-up is positive UA and bacteremia Patient is a 74-year-old female with a past medical history significant for heart failure COPD diabetes mellitus reflux hyperlipidemia and recent diagnosis of lung cancer patient has been brought into the hospital from oncology office concerning for urinary retention/oliguria low blood pressure c oncern for possible infection. On today's evaluation that is 10/31/2024,the patient denies any fever or any chills, patient is breathing comfortably on 3 L, oxygen, the patient denies chest pain shortness of breath and no significant cough, patient denies abdominal pain, no nausea vomiting complaining of constipation Patient white count is 9.30, creatinine 0.78 Objective - Vital Signs Vital signs: Vital Signs Temp 98.5 F 10/31/24 06:58 Pulse 90 10/31/24 06:58 Resp 15 10/31/24 06:58 BP 92/58 10/31/24 06:58 Pulse Ox 96 10/31/24 08:58 FiO2 Intake & Output 10/30/24 10/31/24 10/31/24 18:59 06:59 18:59 Output Total 750 700 Balance -750 -700 Weight 80.739 kg Output: Urine 750 700 Other: Voiding Method Indwelling Catheter Indwelling Catheter # Bowel Movements 1 1 - Exam GENERAL DESCRIPTION: An elderly female lying in bed in no distress RESPIRATORY SYSTEM: Unlabored breathing , decreased breath sounds at bases HEART: S1 S2 regular rate and rhythm , ABDOMEN: Soft , no tenderness EXTREMITIES: No edema feet - Labs CBC & Chem 7: 11/01/24 04:11 11/01/24 10:19 Labs: Abnormal Lab Results - Last 24 Hours (Table) 10/30/24 10/30/24 10/30/24 Range/Units 12:45 13:13 16:47 RBC (4.10-5.20) X 10*6/uL Hgb (12.0-15.0) g/dL Hct (37.2-46.3) % MCV (80.0-97.0) FL MCHC (32.0-37.0) g/dL RDW (11.5-14.5) % Immature Gran # (0.00-0.04) X 10*3/uL Sodium 129 L (137-145) mmol/L Chloride 94 L (98-107) mmol/L Carbon Dioxide 31 H (22-30) mmol/L BUN 47 H (7-17) mg/dL BUN/Creatinine Ratio (12.00-20.00) Ratio Glucose 46 L* (74-99) mg/dL POC Glucose (mg/dL) 63 L 40 L* (70-110) mg/dL Calcium 7.5 L (8.4-10.2) mg/dL Total Bilirubin (0.3-1.2) mg/dL Total Protein 5.3 L (6.3-8.2) g/dL Albumin 2.8 L (3.5-5.0) g/dL Albumin/Globulin Ratio (1.60-3.17) Ratio 10/30/24 10/30/24 10/30/24 Range/Units 17:33 18:00 18:27 RBC (4.10-5.20) X 10*6/uL Hgb (12.0-15.0) g/dL Hct (37.2-46.3) % MCV (80.0-97.0) FL MCHC (32.0-37.0) g/dL RDW (11.5-14.5) % Immature Gran # (0.00-0.04) X 10*3/uL Sodium (137-145) mmol/L Chloride (98-107) mmol/L Carbon Dioxide (22-30) mmol/L BUN (7-17) mg/dL BUN/Creatinine Ratio (12.00-20.00) Ratio Glucose (74-99) mg/dL POC Glucose (mg/dL) 48 L* 56 L 53 L (70-110) mg/dL Calcium (8.4-10.2) mg/dL Total Bilirubin (0.3-1.2) mg/dL Total Protein (6.3-8.2) g/dL Albumin (3.5-5.0) g/dL Albumin/Globulin Ratio (1.60-3.17) Ratio 10/30/24 10/30/24 10/31/24 Range/Units 19:08 23:52 00:28 RBC (4.10-5.20) X 10*6/uL Hgb (12.0-15.0) g/dL Hct (37.2-46.3) % MCV (80.0-97.0) FL MCHC (32.0-37.0) g/dL RDW (11.5-14.5) % Immature Gran # (0.00-0.04) X 10*3/uL Sodium (137-145) mmol/L Chloride (98-107) mmol/L Carbon Dioxide (22-30) mmol/L BUN (7-17) mg/dL BUN/Creatinine Ratio (12.00-20.00) Ratio Glucose (74-99) mg/dL POC Glucose (mg/dL) 254 H 32 L* 112 H (70-110) mg/dL Calcium (8.4-10.2) mg/dL Total Bilirubin (0.3-1.2) mg/dL Total Protein (6.3-8.2) g/dL Albumin (3.5-5.0) g/dL Albumin/Globulin Ratio (1.60-3.17) Ratio 10/31/24 10/31/24 10/31/24 Range/Units 03:37 03:37 06:07 RBC 2.51 L (4.10-5.20) X 10*6/uL Hgb 7.6 L (12.0-15.0) g/dL Hct 24.4 L (37.2-46.3) % MCV 97.2 H (80.0-97.0) FL MCHC 31.1 L (32.0-37.0) g/dL RDW 14.9 H (11.5-14.5) % Immature Gran # 0.05 H (0.00-0.04) X 10*3/uL Sodium 131 L (137-145) mmol/L Chloride 93 L (98-107) mmol/L Carbon Dioxide (22-30) mmol/L BUN 39.6 H (7-17) mg/dL BUN/Creatinine Ratio 49.50 H (12.00-20.00) Ratio Glucose 33 A* (74-99) mg/dL POC Glucose (mg/dL) 51 L (70-110) mg/dL Calcium 7.4 L (8.4-10.2) mg/dL Total Bilirubin <0.2 L (0.3-1.2) mg/dL Total Protein 4.8 L (6.3-8.2) g/dL Albumin 2.8 L (3.5-5.0) g/dL Albumin/Globulin Ratio 1.40 L (1.60-3.17) Ratio 10/31/24 Range/Units 06:41 RBC (4.10-5.20) X 10*6/uL Hgb (12.0-15.0) g/dL Hct (37.2-46.3) % MCV (80.0-97.0) FL MCHC (32.0-37.0) g/dL RDW (11.5-14.5) % Immature Gran # (0.00-0.04) X 10*3/uL Sodium (137-145) mmol/L Chloride (98-107) mmol/L Carbon Dioxide (22-30) mmol/L BUN (7-17) mg/dL BUN/Creatinine Ratio (12.00-20.00) Ratio Glucose (74-99) mg/dL POC Glucose (mg/dL) 113 H (70-110) mg/dL Calcium (8.4-10.2) mg/dL Total Bilirubin (0.3-1.2) mg/dL Total Protein (6.3-8.2) g/dL Albumin (3.5-5.0) g/dL Albumin/Globulin Ratio (1.60-3.17) Ratio Microbiology - Last 24 Hours (Table) 10/29/24 15:17 Blood Culture Gram Stain - Preliminary Blood 10/29/24 20:50 Urine Culture - Preliminary Urine,Catheterized Gram Neg Bacilli 10/29/24 13:14 Urine Culture - Preliminary Urine,Voided Gram Neg Bacilli Assessment and Plan (1) Asymptomatic bacteriuria Current Visit: Yes Status: Acute Code(s): R82.71 - BACTERIURIA SNOMED Code(s): 279041050 (2) Positive blood culture Current Visit: Yes Status: Acute Code(s): R78.81 - BACTEREMIA SNOMED Code(s): 264313918 (3) Penicillin allergy Current Visit: No Status: Acute Code(s): Z88.0 - ALLERGY STATUS TO PENICILLIN SNOMED Code(s): 89812451 Plan: 1patient being brought into the hospital concerning for urinary symptom or dribbling however the patient denies having any burning frequency suprapubic pain no suprapubic tenderness was noticed on examination did have a positive UA more likely representing asymptomatic bacteriuria and no need for antibiotic therapy 2-patient also have positive blood culture with gram-positive bacilli more likely skin contamination awaiting ID sensitivity 3-patient did have penicillin allergy that would limit the number of antibiotic safe to use 4-at this point as the patient remains to be afebrile and has shown clinical improvement we will monitor closely off antibiotic therapy Dictation was produced using [employer] dictation software. please excuse any grammatical, word or spelling errors. Time with Patient: Less than 30
--- NOTE | 2024-11-01 16:16 | P.PN ---
Subjective Progress Note Date: 11/01/24 Principal diagnosis: Reason for follow-up is positive UA and bacteremia Patient is a 74-year-old female with a past medical history significant for heart failure COPD diabetes mellitus reflux hyperlipidemia and recent diagnosis of lung cancer patient has been brought into the hospital from oncology office concerning for urinary retention/oliguria low blood pressure c oncern for possible infection. On today's evaluation that is 11/01/2024,the patient remains to be afebrile, patient is on room air not requiring supplemental oxygen and mentioned breathing comfortably with no chest pain or cough.Patient denies having any nausea or vomiting, no abdominal pain and mention did have relief of her constipation to have bowel movement yesterday as well as today. Patient white count 7.66, creatinine 0.7 urine is growing Proteus and blood culture with Clostridium Objective - Vital Signs Vital signs: Vital Signs Temp 97.9 F 11/01/24 14:08 Pulse 60 11/01/24 14:08 Resp 15 11/01/24 14:08 BP 100/67 11/01/24 14:08 Pulse Ox 95 11/01/24 14:08 FiO2 Intake & Output 10/31/24 11/01/24 11/01/24 18:59 06:59 18:59 Intake Total 1082 Output Total 600 1500 Balance -600 -418 Intake: Oral 1082 Output: Urine 600 1500 Other: Voiding Method Indwelling Catheter Indwelling Catheter Indwelling Catheter # Bowel Movements 3 - Exam GENERAL DESCRIPTION: An elderly female lying in bed in no distress RESPIRATORY SYSTEM: Unlabored breathing , decreased breath sounds at bases HEART: S1 S2 regular rate and rhythm , ABDOMEN: Soft , no tenderness EXTREMITIES: No edema feet - Labs CBC & Chem 7: 11/01/24 04:11 11/01/24 10:19 Labs: Abnormal Lab Results - Last 24 Hours (Table) 11/01/24 11/01/24 11/01/24 Range/Units 04:11 04:11 10:19 RBC 2.41 L (4.10-5.20) X 10*6/uL Hgb 7.5 L (12.0-15.0) g/dL Hct 23.5 L (37.2-46.3) % MCV 97.5 H (80.0-97.0) FL MCHC 31.9 L (32.0-37.0) g/dL RDW 15.0 H (11.5-14.5) % Sodium 128 L 125 L (135-145) mmol/L Chloride 91 L (96-109) mmol/L Anion Gap 12.60 H (4.00-12.00) mmol/L BUN 32.0 H (9.0-27.0) mg/dL BUN/Creatinine Ratio 45.71 H (12.00-20.00) Ratio Calcium 7.2 L (8.7-10.3) mg/dL Total Bilirubin <0.2 L (0.3-1.2) mg/dL Total Protein 4.6 L (6.2-8.2) g/dL Albumin 2.7 L (3.8-4.9) g/dL Albumin/Globulin Ratio 1.42 L (1.60-3.17) Ratio Microbiology - Last 24 Hours (Table) 10/29/24 20:50 Urine Culture - Final Urine,Catheterized Proteus mirabilis 10/29/24 13:14 Urine Culture - Final Urine,Voided Proteus mirabilis 10/29/24 15:17 Blood Culture Gram Stain - Final Blood Blood Culture - Final Clostridium paraputrificum Assessment and Plan (1) Asymptomatic bacteriuria Current Visit: Yes Status: Acute Code(s): R82.71 - BACTERIURIA SNOMED Code(s): 461094267 (2) Positive blood culture Current Visit: Yes Status: Acute Code(s): R78.81 - BACTEREMIA SNOMED Code(s): 627911343 (3) Penicillin allergy Current Visit: No Status: Acute Code(s): Z88.0 - ALLERGY STATUS TO PENICILLIN SNOMED Code(s): 85544007 Plan: 1patient being brought into the hospital concerning for urinary symptom or dribbling however the patient denies having any burning frequency suprapubic pain no suprapubic tenderness was noticed on examination did have a positive UA more likely representing asymptomatic bacteriuria and no need for antibiotic th erapy 2-patient also have positive blood culture with gram-positive bacilli which has been finalized with Clostridium which is likely of gut origin and not contamination blood culture to be repeated document clearance of bacteremia 3will obtain a CT of abdominal pelvis with contrast to better define underlying and abdominal pathology 4with the patient allergic to penicillin we will start the patient on Rocephin 2 g daily and IV Flagyl Dictation was produced using [employer] dictation software. please excuse any grammatical, word or spelling errors. Time with Patient: Less than 30
[2024-11-01] MEDS: IOPAMIDOL CONTRAST (ORAL USE) VIAL PO PRN (16:38)
[2024-11-01 16:40] LABS: Glucose,Whole Blood 106 mg/dL (70-110)
[2024-11-01] MEDS: LACTULOSE 20 GM/30 ML CUP PO SCH (16:45)
[2024-11-01] MEDS: metroNIDAZOLE-NS PMX 500 MG in SALINE 1 100ML.BAG IVPB SCH (16:46)
--- NOTE | 2024-11-01 17:15 | P.PN ---
Subjective Progress Note Date: 11/01/24 No acute events overnight. Pt reporting feeling improved since admit, c/o generalized weakness. Objective - Vital Signs Vital signs: Vital Signs Temp 97.9 F 11/01/24 14:08 Pulse 60 11/01/24 14:08 Resp 15 11/01/24 14:08 BP 100/67 11/01/24 14:08 Pulse Ox 95 11/01/24 14:08 FiO2 Intake & Output 10/31/24 11/01/24 11/01/24 18:59 06:59 18:59 Intake Total 1082 Output Total 600 1500 Balance -600 -418 Intake: Oral 1082 Output: Urine 600 1500 Other: Voiding Method Indwelling Catheter Indwelling Catheter Indwelling Catheter # Bowel Movements 3 - Constitutional General appearance: Present: no acute distress - Respiratory Details: breathing is even and unlabored - Cardiovascular Details: skin warm and dry - Gastrointestinal General gastrointestinal: Present: soft. Absent: tenderness - Integumentary Integumentary: Absent: cyanotic - Musculoskeletal Musculoskeletal: Present: generalized weakness - Psychiatric Psychiatric: Present: A&O x's 3 - Labs CBC & Chem 7: 11/01/24 04:11 11/01/24 10:19 Labs: Abnormal Lab Results - Last 24 Hours (Table) 11/01/24 11/01/24 11/01/24 Range/Units 04:11 04:11 10:19 RBC 2.41 L (4.10-5.20) X 10*6/uL Hgb 7.5 L (12.0-15.0) g/dL Hct 23.5 L (37.2-46.3) % MCV 97.5 H (80.0-97.0) FL MCHC 31.9 L (32.0-37.0) g/dL RDW 15.0 H (11.5-14.5) % Sodium 128 L 125 L (135-145) mmol/L Chloride 91 L (96-109) mmol/L Anion Gap 12.60 H (4.00-12.00) mmol/L BUN 32.0 H (9.0-27.0) mg/dL BUN/Creatinine Ratio 45.71 H (12.00-20.00) Ratio Calcium 7.2 L (8.7-10.3) mg/dL Total Bilirubin <0.2 L (0.3-1.2) mg/dL Total Protein 4.6 L (6.2-8.2) g/dL Albumin 2.7 L (3.8-4.9) g/dL Albumin/Globulin Ratio 1.42 L (1.60-3.17) Ratio Microbiology - Last 24 Hours (Table) 10/29/24 20:50 Urine Culture - Final Urine,Catheterized Proteus mirabilis 10/29/24 13:14 Urine Culture - Final Urine,Voided Proteus mirabilis 10/29/24 15:17 Blood Culture Gram Stain - Final Blood Blood Culture - Final Clostridium paraputrificum Assessment and Plan (1) Hyponatremia Current Visit: Yes Status: Acute Code(s): E87.1 - HYPO-OSMOLALITY AND HYPONATREMIA SNOMED Code(s): 12837706 (2) Urinary retention Current Visit: Yes Status: Acute Code(s): R33.9 - RETENTION OF URINE, UNSPECIFIED SNOMED Code(s): 093638338 (3) Lung mass Current Visit: No Status: Acute Priority: High Code(s): R91.8 - OTHER NONSPECIFIC ABNORMAL FINDING OF LUNG FIELD SNOMED Code(s): 471094489 Plan: Urinary retention, UTI: Presented to the ER from [facility] for urinary hesitancy and retention. Denies dysuria, flank pain, abdominal pain, fever and chills. -KUB ultrasound showed unremarkable renal ultrasound. -CT abdomen without contrast revealed development of dilated small and large bowel without visualized transition point. Findings suggest ileus versus distal colonic obstruction. Small perihepatic ascites. Partial visualization of known right middle lobe pulmonary mass. Small right pleural effusion. -UA suspicious for UTI. Positive urine and blood cultures, ID following, IV abx started -On admit sodium 122, today 125.. STEWART also noted, with elevated creatinine at 1.31, GFR 41. Bun 56. Kidney function improving -Urology, surgery and nephrology following Lung mass: -Oncology history as dictated in the HPI -CT scan of chest in June/2024 which showed 7 cm RUL mass. -PET scan in August/2024 which showed a suspicious uptake in RUL 6 cm mass,otherwise negative. -It was discussed that her clinical picture is highly suggestive for bronchogenic carcinoma. But with her poor performance status and multiple co- morbodities, unsure if she would be able to tolerate a biopsy. She was to follow up with Dr. Yuen to be evaluated for biopsy, pt unsure if she followed up or if their were plans for biopsy -Pulmonary consult placed. Per pulm note, previously felt to be poor candidate for bronch, awaiting further recs -Case was also previously discussed with rad/onc, Dr Ferrara, he may consider definitive radiation therapy (even if tissue diagnosis could not be obtained). She is not a candidate for concurrent chemoradiation. Spoke with Dr. Ferrara yesterday, she had her first f/u with him, but due to reported urinary complaints and distention he sent her to the ER for further evaluation He will plan to reschedule outpt f/u to further discuss XRT Discussed plan of care with patient and significant other, all questions and concerns were addressed
[2024-11-01 18:09] LABS: Sodium 125.0 mmol/L (137-145)
--- NOTE | 2024-11-01 19:20 | CT ---
EXAMINATION TYPE: CT abdomen pelvis wo con DATE OF EXAM: 11/01/2024 6:15 PM COMPARISON: Multiple prior CT studies, most recently dated 10/30/2024. CLINICAL INDICATION: Female, 74 years old with history of Bacteremia, abdominal abscess, diverticulit is; abdominal abscess, diverticulitis TECHNIQUE: Axial CT abdomen pelvis wo con;Sagittal and coronal reformats were created on a separate workstation. Oral contrast used: with Oral Contrast (none if empty) CT DLP: 796.7 mGycm, Automated exposure control for dose reduction was used. FINDINGS: LOWER CHEST: Trace bilateral pleural effusions. ABDOMEN LIVER: Unremarkable GALLBLADDER AND BILE DUCTS: Gallbladder is surgically absent with mild intrahepatic and extra hepatic biliary dilatation likely physiologic and a postcholecystectomy change. No evidence of choledocholit hiasis. PANCREAS: Unremarkable. SPLEEN: Unremarkable. ADRENAL GLANDS: Unremarkable. KIDNEYS AND URETERS: No evidence of hydronephrosis or renal calculus. The ureters are unremarkable. PELVIS BLADDER: Rock catheter within the urinary bladder lumen. REPRODUCTIVE: Unremarkable. ABDOMEN & PELVIS STOMACH AND BOWEL: Stomach is unremarkable. Severely impacted stool throughout the rectosigmoid and t ransverse colon with associated colonic wall thickening and adjacent mesenteric inflammation. Additio dayday, there are dilated small bowel loops without discrete transition point. PERITONEUM/RETROPERITONEUM: No evidence of pneumoperitoneum or free fluid. VASCULATURE: No evidence of aortic aneurysm. MUSCULOSKELETAL: No acute osseous abnormalities LYMPH NODES: No gross evidence for lymphadenopathy. SOFT TISSUE/ABDOMINAL WALL: Mild diffuse body wall edema/anasarca. Mild free fluid adjacent to the ri ght hepatic lobe of the liver. Fat-containing peribuccal hernia. IMPRESSION: 1. Significantly impacted stool throughout the rectum and colon with additional findings suggesting severe stercoral colitis. 2. Dilated small bowel loops without discrete transition point suggestive of ileus. 3. Trace bilateral pleural effusions. 4. Small volume abdominal ascites and diffuse body wall edema/anasarca. [facility], , 11/01/2024 7:17 PM
[2024-11-01] MEDS: FUROSEMIDE 10 MG/ML 2 ML VIAL IV ONE (20:56)
[2024-11-01] MEDS: FUROSEMIDE 10 MG/ML 4 ML VIAL IV STA (22:39)
[2024-11-01 23:22] LABS: Glucose,Whole Blood 97 mg/dL (70-110)
[2024-11-02] MEDS ORDERED: ZINC OXIDE PASTE (Z-GUARD) 1 APPLIC TOPICAL PRN (01:09)
[2024-11-02 06:07] LABS: Glucose,Whole Blood 90 mg/dL (70-110)
[2024-11-02 07:54] LABS: Basophils # (A) 0.04 X 10*3/uL (0.00-0.10); Basophils % (A) 0.6 %; Eosinophils # (A) 0.20 X 10*3/uL (0.04-0.35); Eosinophils % (A) 2.9 %; HCT 25.4 % (37.2-46.3); HGB 7.6 g/dL (12.0-15.0); Immature Grans, Automated 0.60 %; Lymphocytes # (A) 1.44 X 10*3/uL (0.90-5.00); Lymphocytes % (A) 20.7 %; MCH 30.4 pg (27.0-32.0); MCHC 29.9 g/dL (32.0-37.0); MCV 101.6 FL (80.0-97.0); Monocytes # (A) 0.57 X 10*3/uL (0.20-1.00); Monocytes % (A) 8.2 %; NRBC Per 100 WBC 0 X 10*3/uL (0.00-0.01); Neutrophils # (A) 4.67 X 10*3/uL (1.80-7.70); Neutrophils % (A) 67.0 %; Platelet Count 167 X 10*3/uL (140-440); RBC 2.50 X 10*6/uL (4.10-5.20); RDW 14.9 % (11.5-14.5); WBC 6.96 X 10*3/uL (4.50-10.00)
[2024-11-02 08:33] LABS: ALT 8 U/L (8-44); AST 15 U/L (13-35); Albumin 2.5 g/dL (3.8-4.9); Albumin/Globulin Ratio 1.25 Ratio (1.60-3.17); Alkaline Phosphatase 95 U/L (41-126); Anion Gap 10.60 mmol/L (4.00-12.00); BUN/Creat Ratio 39.00 Ratio (12.00-20.00); Blood Urea Nitrogen 27.3 mg/dL (9.0-27.0); Calcium 7.3 mg/dL (8.7-10.3); Carbon Dioxide 26.4 mmol/L (21.6-31.8); Chloride 97 mmol/L (96-109); Globulin 2.0 g/dL (1.6-3.3); Glucose 84 mg/dL (70-110); Potassium 2.5 mmol/L (3.5-5.5); Sodium 134 mmol/L (135-145); Total Protein 4.5 g/dL (6.2-8.2)
[2024-11-02] MEDS ORDERED: Potassium Replacement Protocol 1 EACH MISC MISCELLANE PRN (08:57)
[2024-11-02] MEDS: POTASSIUM CHLORIDE ER 20 MEQ TAB.ER PO ONE ×3 (09:17→18:13)
--- NOTE | 2024-11-02 09:50 | P.PN ---
Subjective Progress Note Date: 11/02/24 Ajay Robertson, is a 74-year-old female who presented to [facility] emergency room with a chief complaint of urinary retention, patient stated that she had a Rock catheter up to 3 weeks ago, after Rock catheter was discontinued patient had urine incontinence with a small amount of urine " dribbling " she was having suprapubic fullness and pain, evaluation in the emergency room revealed evidence of urinary retention and urinary tract infection, she was started on IV ceftriaxone in the emergency room and was admitted to medical floor. Evaluation in the emergency room also revealed evidence of hypotension and hyponatremia blood pressure on presentation was 76/50 and sodium was down to 122. Patient has a prolonged past medical history including history of hypertension, hyperlipidemia, advanced COPD, chronic hypoxic respiratory failure requiring home oxygen, diabetes mellitus type 2, congestive heart failure, and history of recently diagnosed lung cancer. On 10/30/2024 patient is alert and oriented x 3. Current vital signs temp 97.1, heart rate 74, respiratory rate 15, blood pressure 97/63 with pulse ox 100% on room air. Infectious disease services consulted. Repeat sodium level has been ordered. Rock catheter in place. Ultrasound of renal bladder and kidneys ord ered. Urine and blood cultures ordered 10/31/2024 patient was seen and examined on the medical floor she is alert and oriented x 3 in no apparent distress there is no fever or chills no headache or dizziness she reports some improvement in her abdominal pain and distention there is no nausea or vomiting no diarrhea and no urinary symptoms Rock catheter is inserted On 11/01/2024 patient is alert and oriented x 3. Current vital signs temp 98.4, heart rate 90, respiratory rate 15, blood pressure 110/62 with pulse ox of 96% on 2 L. Patient denies chest pain or shortness of breath. Patient denies nausea vomiting or diarrhea. Patient denies any urinary burning or frequency. Patient has had multiple bowel movements. Abdomen x-ray completed showing dilated small bowel loops left mid abdomen consider small ileus no signs of obstruction or fecal retention On 11/02/2024 patient is alert and oriented x 3. Patient continuing to have bowel movement. CT of abdomen and pelvis reviewed and ordered per infectious disease patient maintained on Flagyl and Rocephin. Potassium low this a.m. at 2.5 replace per protocol. Current vital signs temp 98.5, rate 65, respiratory rate 17, blood pressure 98/62 with pulse ox 100% on 2 L nasal cannula. Infectious disease, surgical, nephrology, pulmonary and oncology are all following Objective - Vital Signs Vital signs: Vital Signs Temp 97.3 F L 11/02/24 07:34 Pulse 72 11/02/24 07:34 Resp 15 11/02/24 07:34 BP 90/45 11/02/24 07:34 Pulse Ox 100 11/02/24 07:34 FiO2 Intake & Output 11/01/24 11/02/24 11/02/24 18:59 06:59 18:59 Intake Total 1150 100 Output Total 1400 Balance 1150 -1300 Intake: Intake, IV Titration 1150 100 Amount Sodium Chloride 0.9% 1, 1000 000 ml @ 100 mls/hr IV . Q10H [facility] Rx#:[id number] cefTRIAXone 2 gm In 50 Sodium Chloride 0.9% 50 ml @ 100 mls/hr IVPB Q24HR [facility] Rx#:[id number]-NS PMX 500 100 100 mg In Saline 1 100ml.bag @ 100 mls/hr IVPB Q8HR [facility] Rx#:[id number] Output: Urine 1400 Other: Voiding Method Indwelling Catheter Indwelling Catheter # Bowel Movements 2 5 - Exam In general patient is alert and oriented x 3 in no distress HEENT head normocephalic and atraumatic Neck is supple no JVD no goiter no lymphadenopathy no carotid bruit Chest examination is clear to auscultation no crackles no wheezing Cardiac exam reveals regular heart sounds S1 and S2 no gallops no murmurs Abdomen is soft nontender no organomegaly with normal bowel sounds Extremity exam reveals 3+ edema no cyanosis or clubbing Neurological examination reveals no gross focal deficits - Labs CBC & Chem 7: 11/02/24 04:39 11/02/24 04:39 Labs: Abnormal Lab Results - Last 24 Hours (Table) 11/01/24 11/01/24 11/01/24 Range/Units 04:11 10:19 11:16 RBC (4.10-5.20) X 10*6/uL Hgb (12.0-15.0) g/dL Hct (37.2-46.3) % MCV (80.0-97.0) FL MCHC (32.0-37.0) g/dL RDW (11.5-14.5) % Sodium 128 L 125 L (135-145) mmol/L Potassium (3.5-5.5) mmol/L Chloride 91 L (96-109) mmol/L Anion Gap 12.60 H (4.00-12.00) mmol/L BUN 32.0 H (9.0-27.0) mg/dL BUN/Creatinine Ratio 45.71 H (12.00-20.00) Ratio Calcium 7.2 L (8.7-10.3) mg/dL Total Bilirubin <0.2 L (0.3-1.2) mg/dL C-Reactive Protein (<1.0) mg/dL Total Protein 4.6 L (6.2-8.2) g/dL Albumin 2.7 L (3.8-4.9) g/dL Albumin/Globulin Ratio 1.42 L (1.60-3.17) Ratio Ur Random Sodium <20 L (40-220) mmol/L 11/01/24 11/02/24 11/02/24 Range/Units 17:00 00:00 04:39 RBC 2.50 L (4.10-5.20) X 10*6/uL Hgb 7.6 L (12.0-15.0) g/dL Hct 25.4 L (37.2-46.3) % MCV 101.6 H (80.0-97.0) FL MCHC 29.9 L (32.0-37.0) g/dL RDW 14.9 H (11.5-14.5) % Sodium 125 L 127 L (135-145) mmol/L Potassium (3.5-5.5) mmol/L Chloride (96-109) mmol/L Anion Gap (4.00-12.00) mmol/L BUN (9.0-27.0) mg/dL BUN/Creatinine Ratio (12.00-20.00) Ratio Calcium (8.7-10.3) mg/dL Total Bilirubin (0.3-1.2) mg/dL C-Reactive Protein 2.8 H (<1.0) mg/dL Total Protein (6.2-8.2) g/dL Albumin (3.8-4.9) g/dL Albumin/Globulin Ratio (1.60-3.17) Ratio Ur Random Sodium (40-220) mmol/L 11/02/24 Range/Units 04:39 RBC (4.10-5.20) X 10*6/uL Hgb (12.0-15.0) g/dL Hct (37.2-46.3) % MCV (80.0-97.0) FL MCHC (32.0-37.0) g/dL RDW (11.5-14.5) % Sodium 134 L (135-145) mmol/L Potassium 2.5 A* (3.5-5.5) mmol/L Chloride (96-109) mmol/L Anion Gap (4.00-12.00) mmol/L BUN 27.3 H (9.0-27.0) mg/dL BUN/Creatinine Ratio 39.00 H (12.00-20.00) Ratio Calcium 7.3 L (8.7-10.3) mg/dL Total Bilirubin <0.2 L (0.3-1.2) mg/dL C-Reactive Protein (<1.0) mg/dL Total Protein 4.5 L (6.2-8.2) g/dL Albumin 2.5 L (3.8-4.9) g/dL Albumin/Globulin Ratio 1.25 L (1.60-3.17) Ratio Ur Random Sodium (40-220) mmol/L Microbiology - Last 24 Hours (Table) 10/31/24 14:36 Blood Culture - Preliminary Blood Assessment and Plan Assessment: Urinary tract infection Sepsis, with hypotension Positive blood culture Severe hyponatremia Urinary retention Lung cancer Acute kidney injury with elevated BUN and creatinine Underlying history of advanced COPD Underlying history of hypertension Underlying history of hyperlipidemia Underlying history of chronic hypoxic respiratory failure maintained on home oxygen Underlying history of diabetes mellitus Underlying history of degenerative disc disease and osteoarthritis At this time patient was seen and examined Home medications reviewed and reordered Blood culture and urine culture ordered Infectious disease consultation requested Will follow closely
[2024-11-02] MEDS: POTASSIUM CHLORIDE ER 20 MEQ TAB.ER PO STA ×3 (10:19→22:37)
[2024-11-02 11:40] LABS: Glucose,Whole Blood 108 mg/dL (70-110)
--- NOTE | 2024-11-02 12:28 | P.PN ---
Subjective Patient is seen at bedside today, patient is sleepy today. Patient had multiple bowel movements overnight, abdominal distention has improved. Her potassium went down to 2.5 overnight. Serum sodium improved to 134 this morning. Patient received Lasix yesterday and IV fluids were discontinued. Objective - Vital Signs Vital signs: Vital Signs Temp 98.5 F 11/02/24 01:05 Pulse 65 11/02/24 01:05 Resp 17 11/02/24 01:05 BP 98/62 11/02/24 01:05 Pulse Ox 100 11/02/24 01:05 FiO2 Intake & Output 11/01/24 11/02/24 11/02/24 18:59 06:59 18:59 Intake Total 1150 100 Output Total 1400 Balance 1150 -1300 Intake: Intake, IV Titration 1150 100 Amount Sodium Chloride 0.9% 1, 1000 000 ml @ 100 mls/hr IV . Q10H [facility] Rx#:[id number] cefTRIAXone 2 gm In 50 Sodium Chloride 0.9% 50 ml @ 100 mls/hr IVPB Q24HR [facility] Rx#:[id number] metroNIDAZOLE-NS PMX 500 100 100 mg In Saline 1 100ml.bag @ 100 mls/hr IVPB Q8HR [facility] Rx#:[id number] Output: Urine 1400 Other: Voiding Method Indwelling Catheter Indwelling Catheter # Bowel Movements 2 5 - Exam General: Patient appears well, she is sleepy, responds to verbal commands Lungs: clear to auscultation bilaterally Heart: S1 and S2 normal, no murmurs Abdomen distended Lower extremities Scales and discolorations bilaterally, No edema - Labs CBC & Chem 7: 11/02/24 04:39 11/02/24 14:33 Labs: Abnormal Lab Results - Last 24 Hours (Table) 11/01/24 11/01/24 11/01/24 Range/Units 04:11 04:11 10:19 RBC 2.41 L (4.10-5.20) X 10*6/uL Hgb 7.5 L (12.0-15.0) g/dL Hct 23.5 L (37.2-46.3) % MCV 97.5 H (80.0-97.0) FL MCHC 31.9 L (32.0-37.0) g/dL RDW 15.0 H (11.5-14.5) % Sodium 128 L 125 L (135-145) mmol/L Chloride 91 L (96-109) mmol/L Anion Gap 12.60 H (4.00-12.00) mmol/L BUN 32.0 H (9.0-27.0) mg/dL BUN/Creatinine Ratio 45.71 H (12.00-20.00) Ratio Calcium 7.2 L (8.7-10.3) mg/dL Total Bilirubin <0.2 L (0.3-1.2) mg/dL C-Reactive Protein (<1.0) mg/dL Total Protein 4.6 L (6.2-8.2) g/dL Albumin 2.7 L (3.8-4.9) g/dL Albumin/Globulin Ratio 1.42 L (1.60-3.17) Ratio Ur Random Sodium (40-220) mmol/L 11/01/24 11/01/24 11/02/24 Range/Units 11:16 17:00 00:00 RBC (4.10-5.20) X 10*6/uL Hgb (12.0-15.0) g/dL Hct (37.2-46.3) % MCV (80.0-97.0) FL MCHC (32.0-37.0) g/dL RDW (11.5-14.5) % Sodium 125 L 127 L (135-145) mmol/L Chloride (96-109) mmol/L Anion Gap (4.00-12.00) mmol/L BUN (9.0-27.0) mg/dL BUN/Creatinine Ratio (12.00-20.00) Ratio Calcium (8.7-10.3) mg/dL Total Bilirubin (0.3-1.2) mg/dL C-Reactive Protein 2.8 H (<1.0) mg/dL Total Protein (6.2-8.2) g/dL Albumin (3.8-4.9) g/dL Albumin/Globulin Ratio (1.60-3.17) Ratio Ur Random Sodium <20 L (40-220) mmol/L Microbiology - Last 24 Hours (Table) 10/31/24 14:36 Blood Culture - Preliminary Blood Assessment and Plan Assessment: 1. Hyponatremia, hypovolemic initially and improved with saline temporarily until the hypovolemic component was corrected. Serum sodium started to decrease subsequently and saline was discontinued. Received IV Lasix yesterday and this is slowly regular sodium improved to 134. Urine osmolarity 228, urine sodium <20 2. STEWART from lower urinary tract obstruction, and possibly from hypotension. Improved. UA is suggestive of UTI. Creatinine on admission was 1.31, today is 0.7 3. Bacteriuria: being followed by ID, not on antibiotics currently 4. Urinary retention Status post Rock catheter placement 5. Ileus with constipation. being followed by surgery 6. Type 2 DM 7. Hypokalemia secondary to loop diuretics. Status post replacement. Plan: Check potassium in 4hs Continue with Rock catheter Can likely resume torsemide in 1 to 2 days. Repeat Labs in am Patient is seen and examined. Agree with resident's findings, assessment and plan.
--- NOTE | 2024-11-02 13:21 | P.PN ---
Subjective Progress Note Date: 11/02/24 Patient damaris stable. She has had multiple bowel movements. On exam vital signs appear stable. Abdomen is soft. Resolved ileus. Patient will continue receive supportive care. Objective - Vital Signs Vital signs: Vital Signs Temp 97.3 F L 11/02/24 07:34 Pulse 72 11/02/24 07:34 Resp 15 11/02/24 07:34 BP 90/45 11/02/24 07:34 Pulse Ox 100 11/02/24 07:34 FiO2 Intake & Output 11/01/24 11/02/24 11/02/24 18:59 06:59 18:59 Intake Total 1150 100 Output Total 1400 Balance 1150 -1300 Intake: Intake, IV Titration 1150 100 Amount Sodium Chloride 0.9% 1, 1000 000 ml @ 100 mls/hr IV . Q10H [facility] Rx#:[id number] cefTRIAXone 2 gm In 50 Sodium Chloride 0.9% 50 ml @ 100 mls/hr IVPB Q24HR [facility] Rx#:[id number] metroNIDAZOLE-NS PMX 500 100 100 mg In Saline 1 100ml.bag @ 100 mls/hr IVPB Q8HR [facility] Rx#:[id number] Output: Urine 1400 Other: Voiding Method Indwelling Catheter Indwelling Catheter Indwelling Catheter # Bowel Movements 2 5 1 - Labs CBC & Chem 7: 11/02/24 04:39 11/02/24 04:39 Labs: Abnormal Lab Results - Last 24 Hours (Table) 11/01/24 11/01/24 11/02/24 Range/Units 11:16 17:00 00:00 RBC (4.10-5.20) X 10*6/uL Hgb (12.0-15.0) g/dL Hct (37.2-46.3) % MCV (80.0-97.0) FL MCHC (32.0-37.0) g/dL RDW (11.5-14.5) % Sodium 125 L 127 L (137-145) mmol/L Potassium (3.5-5.5) mmol/L BUN (9.0-27.0) mg/dL BUN/Creatinine Ratio (12.00-20.00) Ratio Calcium (8.7-10.3) mg/dL Total Bilirubin (0.3-1.2) mg/dL C-Reactive Protein 2.8 H (<1.0) mg/dL Total Protein (6.2-8.2) g/dL Albumin (3.8-4.9) g/dL Albumin/Globulin Ratio (1.60-3.17) Ratio Ur Random Sodium <20 L (40-220) mmol/L 11/02/24 11/02/24 Range/Units 04:39 04:39 RBC 2.50 L (4.10-5.20) X 10*6/uL Hgb 7.6 L (12.0-15.0) g/dL Hct 25.4 L (37.2-46.3) % MCV 101.6 H (80.0-97.0) FL MCHC 29.9 L (32.0-37.0) g/dL RDW 14.9 H (11.5-14.5) % Sodium 134 L (137-145) mmol/L Potassium 2.5 A* (3.5-5.5) mmol/L BUN 27.3 H (9.0-27.0) mg/dL BUN/Creatinine Ratio 39.00 H (12.00-20.00) Ratio Calcium 7.3 L (8.7-10.3) mg/dL Total Bilirubin <0.2 L (0.3-1.2) mg/dL C-Reactive Protein (<1.0) mg/dL Total Protein 4.5 L (6.2-8.2) g/dL Albumin 2.5 L (3.8-4.9) g/dL Albumin/Globulin Ratio 1.25 L (1.60-3.17) Ratio Ur Random Sodium (40-220) mmol/L Microbiology - Last 24 Hours (Table) 10/31/24 14:36 Blood Culture - Preliminary Blood
[2024-11-02 15:15] LABS: African American GFR (CKD) >90 (>60 ml/min/1.73 sqM); Anion Gap 7 mmol/L; Blood Urea Nitrogen 26 mg/dL (7-17); Calcium 7.4 mg/dL (8.4-10.2); Carbon Dioxide 27 mmol/L (22-30); Chloride 98 mmol/L (98-107); Glucose 98 mg/dL (74-99); Non-African American GFR(CKD) >90 (>60 ml/min/1.73 sqM); Sodium 132 mmol/L (137-145)
--- NOTE | 2024-11-02 15:15 | P.PN ---
Subjective Progress Note Date: 11/02/24 Patient is 74-year-old female with multiple significant comorbidities including diabetes, hyperlipidemia, heart failure, obesity, nonambulatory, F resident, chronic oxygen dependence, previous tobacco use, and recent finding of right midlung mass. CT of the chest from June, remarkable for lobulated right upper/middle lobe mass measuring 7.1 cm concerning for malignancy. Follow-up PET scan from Aug, 2024 redemonstrated the right middle lobe masslike consolidation measuring 6 x 3.5 cm with an SUV value of 16.3. No FDG avid lymph nodes. She did see Dr. Davis in the Pulmonary office, who felt the patient a poor candidate for diagnostic bronchoscopy. She was referred to radiation oncology. Patient presented to the emergency department back on 10/29/2024 primary with urinary complaints. Apparently had an indwelling urinary catheter that was removed approximately 3 weeks ago. She was having issues with urinary retention. Rock catheter was reinserted. Urine cultures growing Proteus Mirabilis. Blood culture positive for Clostridium paraputrificum, likely contamination. Patient is not on any antibiotics. Infectious diseases is following. Also, patient having significant abdominal distention. CT of the abdomen/pelvis remarkable for development of dilated small and large bowel without visualized transition point. Findings concerning for ileus versus distal colonic obstruction. 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 Small perihepatic ascites. Other recent lab work from yesterday including a CBC with a WBC count of 9.3, hemoglobin 7.6, platelets 201. CMP: Sodium 122, potassium 3.5, chloride 87, serum bicarb 32, BUN 37, creatinine 0.78, glucose 86. She was previously hypoglycemic with a blood sugar of 32 g/dL, which has since improved. She does take insulin. Patient currently being evaluated on the general medical floor. She is awake and alert. On 2 L/min nasal cannula, which she normally wears at the [facility]. She denies any pulmonary complaints. She denies history of COPD or asthma. Chest x-ray redemonstrating the right perihilar density her abdomen is markedly distended, but nontender. No nausea or vomiting. Last bowel movement was reportedly yesterday. Did have some soapsuds enema yesterday. General surgery following. Afebrile. Hemodynamics are stable at this time. The patient is seen today November 02, 2024 in follow-up on the regular medical floor. She is currently resting in bed. Awake and alert in no acute distress. Maintaining good O2 saturations up to 100% on 2 L/min per nasal cannula. She macias s been afebrile. Hemodynamically stable. CT scan of the abdomen pelvis revealed significantly impacted stool throughout the rectum and colon with additional findings suggesting severe stercoral colitis. Dilated small bowel loops without discrete transition point suggestive of ileus. Trace bilateral pleural effusions. Small volume abdominal ascites and diffuse body wall edema/anasarca. Urine culture positive for Proteus mirabilis. Blood culture showed Clostridium paraputrificum. White count 6.9. Hemoglobin 7.6. Platelets 167. Sodium 134. Potassium 2.5. Bicarb 26. BUN 27. Creatinine 0.7. Potassium being replaced per protocol. She remains on DuoNeb inhalations, Symbicort. Antibiotics in the form of ceftriaxone and Flagyl. Receiving lactulose. Anticoagulated with Eliquis. Objective - Vital Signs Vital signs: Vital Signs Temp 97.3 F L 11/02/24 07:34 Pulse 72 11/02/24 07:34 Resp 15 11/02/24 07:34 BP 90/45 11/02/24 07:34 Pulse Ox 100 11/02/24 07:34 FiO2 Intake & Output 11/01/24 11/02/24 11/02/24 18:59 06:59 18:59 Intake Total 1150 100 Output Total 1400 Balance 1150 -1300 Intake: Intake, IV Titration 1150 100 Amount Sodium Chloride 0.9% 1, 1000 000 ml @ 100 mls/hr IV . Q10H [facility] Rx#:[id number] cefTRIAXone 2 gm In 50 Sodium Chloride 0.9% 50 ml @ 100 mls/hr IVPB Q24HR [facility] Rx#:[id number] metroNIDAZOLE-NS PMX 500 100 100 mg In Saline 1 100ml.bag @ 100 mls/hr IVPB Q8HR [facility] Rx#:[id number] Output: Urine 1400 Other: Voiding Method Indwelling Catheter Indwelling Catheter Indwelling Catheter # Bowel Movements 2 5 1 - Exam GENERAL EXAM: Alert, 74-year-old obese female, resting in bed, on 2 L/min nasal cannula, in no apparent distress. HEAD: Normocephalic and atraumatic EYES: Normal reaction of pupils, equal size. NOSE: Clear with pink turbinates. THROAT: No erythema or exudates. NECK: No masses, no JVD. CHEST: No chest wall deformity. LUNGS: Equal air entry with no crackles, wheeze, rhonchi or dullness. No conversational dyspnea or accessory muscle use.. CVS: S1 and S2 normal with no audible murmur, regular rhythm. No extra heart sounds ABDOMEN: Markedly distended abdomen, periumbilical hernia, active bowel sounds, no guarding or rigidity. SPINE: No scoliosis or deformity SKIN: No rashes. Healing right heel pressure injury CENTRAL NERVOUS SYSTEM: No focal deficits, tone is normal in all 4 extremities. EXTREMITIES: There is no peripheral edema, clubbing, or cyanosis. Peripheral pu lses are intact. - Labs CBC & Chem 7: 11/02/24 04:39 11/02/24 04:39 Labs: Abnormal Lab Results - Last 24 Hours (Table) 11/01/24 11/01/24 11/02/24 Range/Units 11:16 17:00 00:00 RBC (4.10-5.20) X 10*6/uL Hgb (12.0-15.0) g/dL Hct (37.2-46.3) % MCV (80.0-97.0) FL MCHC (32.0-37.0) g/dL RDW (11.5-14.5) % Sodium 125 L 127 L (137-145) mmol/L Potassium (3.5-5.5) mmol/L BUN (9.0-27.0) mg/dL BUN/Creatinine Ratio (12.00-20.00) Ratio Calcium (8.7-10.3) mg/dL Total Bilirubin (0.3-1.2) mg/dL C-Reactive Protein 2.8 H (<1.0) mg/dL Total Protein (6.2-8.2) g/dL Albumin (3.8-4.9) g/dL Albumin/Globulin Ratio (1.60-3.17) Ratio Ur Random Sodium <20 L (40-220) mmol/L 11/02/24 11/02/24 Range/Units 04:39 04:39 RBC 2.50 L (4.10-5.20) X 10*6/uL Hgb 7.6 L (12.0-15.0) g/dL Hct 25.4 L (37.2-46.3) % MCV 101.6 H (80.0-97.0) FL MCHC 29.9 L (32.0-37.0) g/dL RDW 14.9 H (11.5-14.5) % Sodium 134 L (137-145) mmol/L Potassium 2.5 A* (3.5-5.5) mmol/L BUN 27.3 H (9.0-27.0) mg/dL BUN/Creatinine Ratio 39.00 H (12.00-20.00) Ratio Calcium 7.3 L (8.7-10.3) mg/dL Total Bilirubin <0.2 L (0.3-1.2) mg/dL C-Reactive Protein (<1.0) mg/dL Total Protein 4.5 L (6.2-8.2) g/dL Albumin 2.5 L (3.8-4.9) g/dL Albumin/Globulin Ratio 1.25 L (1.60-3.17) Ratio Ur Random Sodium (40-220) mmol/L Microbiology - Last 24 Hours (Table) 10/31/24 14:36 Blood Culture - Preliminary Blood Assessment and Plan Assessment: Urinary retention UTI versus asymptomatic bacteriuria, urine culture growing Proteus Mirabilis, antibiotics being managed by infectious disease Ileus versus distal colonic obstruction, CT of the abdomen/pelvis remarkable for development of dilated small and large bowel without visualized transition point. Findings concerning for ileus versus distal colonic obstruction. 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 Small perihepatic ascites. CT scan of the abdomen pelvis today November 02, 2024 revealed significantly impacted stool throughout the rectum and colon with additional findings suggesting severe stercoral colitis. Dilated small bowel loops without discrete transition point suggestive of ileus. Trace bilateral pleural effusions. Small volume abdominal ascites and diffuse body wall edema/anasarca. Right middle lobe lung mass; FDG avid and concerning for malignancy, felt not a suitable candidate for diagnostic bronchoscopy, was referred to radiation oncology Chronic oxygen dependence, maintained on 2 L/min nasal cannula Former tobacco smoker Chronic anemia Acute kidney injury, possibly postobstructive, improved Hyponatremia Hypoglycemia, improved Diabetes mellitus type II History of hyperlipidemia History of heart failure Obesity, with a BMI of 31.5 kg/m Nonambulatory [facility] resident Poor overall functional performance based on the above-mentioned multiple comorbidities Plan: The patient was seen and evaluated Imaging, labs and medications reviewed Potassium being replaced Currently stable on 2 L nasal cannula Titrate down/off the FiO2 as tolerated Surgical services are following Nephrology is following Infectious diseases following Continued on ceftriaxone and Flagyl Continued on DuoNeb inhalations Continued on Symbicort Anticoagulated with Eliquis Continued on lactulose and Colace Prognosis is guarded DNR CODE STATUS We will continue to follow I have personally seen and examined the patient, performed the documentation and the assessment and plan as written. Number of minutes spent on the visit: 10 Dictation was produced using [employer] dictation software. Please excuse any grammatical, word or spelling errors.
[2024-11-02 15:31] LABS: Potassium 2.6 mmol/L (3.5-5.1)
--- NOTE | 2024-11-02 15:33 | P.PN ---
Subjective Progress Note Date: 11/02/24 Principal diagnosis: Reason for follow-up is positive UA and bacteremia Patient is a 74-year-old female with a past medical history significant for heart failure COPD diabetes mellitus reflux hyperlipidemia and recent diagnosis of lung cancer patient has been brought into the hospital from oncology office concerning for urinary retention/oliguria low blood pressure c oncern for possible infection. On today's evaluation that is 11/02/2024, the patient continues to be afebrile, the patient is on 2 L, oxygen and breathing comfortably, the Pt denies having any chest pain or cough, the patient denies having any abdominal pain no vomiting and is having bowel movement as reported by the nursing staff. Patient white count 6.96, creatinine 0.7 CT abdominal pelvis with Sterocolitis Objective - Vital Signs Vital signs: Vital Signs Temp 97.3 F L 11/02/24 07:34 Pulse 72 11/02/24 07:34 Resp 15 11/02/24 07:34 BP 90/45 11/02/24 07:34 Pulse Ox 100 11/02/24 07:34 FiO2 Intake & Output 11/01/24 11/02/24 11/02/24 18:59 06:59 18:59 Intake Total 1150 100 Output Total 1400 Balance 1150 -1300 Intake: Intake, IV Titration 1150 100 Amount Sodium Chloride 0.9% 1, 1000 000 ml @ 100 mls/hr IV . Q10H [facility] Rx#:[id number] cefTRIAXone 2 gm In 50 Sodium Chloride 0.9% 50 ml @ 100 mls/hr IVPB Q24HR [facility] Rx#:[id number] metroNIDAZOLE-NS PMX 500 100 100 mg In Saline 1 100ml.bag @ 100 mls/hr IVPB Q8HR [facility] Rx#:[id number] Output: Urine 1400 Other: Voiding Method Indwelling Catheter Indwelling Catheter Indwelling Catheter # Bowel Movements 2 5 - Exam GENERAL DESCRIPTION: An elderly female lying in bed in no distress RESPIRATORY SYSTEM: Unlabored breathing , decreased breath sounds at bases HEART: S1 S2 regular rate and rhythm , ABDOMEN: Soft , no tenderness EXTREMITIES: No edema feet - Labs CBC & Chem 7: 11/02/24 04:39 11/02/24 14:33 Labs: Abnormal Lab Results - Last 24 Hours (Table) 11/01/24 11/01/24 11/02/24 Range/Units 11:16 17:00 00:00 RBC (4.10-5.20) X 10*6/uL Hgb (12.0-15.0) g/dL Hct (37.2-46.3) % MCV (80.0-97.0) FL MCHC (32.0-37.0) g/dL RDW (11.5-14.5) % Sodium 125 L 127 L (137-145) mmol/L Potassium (3.5-5.5) mmol/L BUN (9.0-27.0) mg/dL BUN/Creatinine Ratio (12.00-20.00) Ratio Calcium (8.7-10.3) mg/dL Total Bilirubin (0.3-1.2) mg/dL C-Reactive Protein 2.8 H (<1.0) mg/dL Total Protein (6.2-8.2) g/dL Albumin (3.8-4.9) g/dL Albumin/Globulin Ratio (1.60-3.17) Ratio Ur Random Sodium <20 L (40-220) mmol/L 11/02/24 11/02/24 Range/Units 04:39 04:39 RBC 2.50 L (4.10-5.20) X 10*6/uL Hgb 7.6 L (12.0-15.0) g/dL Hct 25.4 L (37.2-46.3) % MCV 101.6 H (80.0-97.0) FL MCHC 29.9 L (32.0-37.0) g/dL RDW 14.9 H (11.5-14.5) % Sodium 134 L (137-145) mmol/L Potassium 2.5 A* (3.5-5.5) mmol/L BUN 27.3 H (9.0-27.0) mg/dL BUN/Creatinine Ratio 39.00 H (12.00-20.00) Ratio Calcium 7.3 L (8.7-10.3) mg/dL Total Bilirubin <0.2 L (0.3-1.2) mg/dL C-Reactive Protein (<1.0) mg/dL Total Protein 4.5 L (6.2-8.2) g/dL Albumin 2.5 L (3.8-4.9) g/dL Albumin/Globulin Ratio 1.25 L (1.60-3.17) Ratio Ur Random Sodium (40-220) mmol/L Microbiology - Last 24 Hours (Table) 10/31/24 14:36 Blood Culture - Preliminary Blood Assessment and Plan (1) Asymptomatic bacteriuria Current Visit: Yes Status: Acute Code(s): R82.71 - BACTERIURIA SNOMED Code(s): 594740813 (2) Positive blood culture Current Visit: Yes Status: Acute Code(s): R78.81 - BACTEREMIA SNOMED Code(s): 790116600 (3) Penicillin allergy Current Visit: No Status: Acute Code(s): Z88.0 - ALLERGY STATUS TO PENICILLIN SNOMED Code(s): 80064648 Plan: 1patient being brought into the hospital concerning for urinary symptom or dribbling however the patient denies having any burning frequency suprapubic pain no suprapubic tenderness was noticed on examination did have a positive UA more likely representing asymptomatic bacteriuria and no need for antibiotic therapy 2-patient also have positive blood culture with gram-positive bacilli which has been finalized with Clostridium which is likely of gut origin and not contamination blood culture to be repeated document clearance of bacteremia 3CT of abdominal pelvis did show evidence of distention and colitis 4patient will be treated with Rocephin 2 g daily and IV Flagyl and monitor clinical course closely Dictation was produced using [employer] dictation software. please excuse any grammatical, word or spelling errors. Time with Patient: Less than 30
[2024-11-02] MEDS ORDERED: POTASSIUM CHLORIDE ER 20 MEQ TAB.ER PO STA (16:08)
[2024-11-02 16:24] LABS: Glucose,Whole Blood 100 mg/dL (70-110)
[2024-11-02 20:09] LABS: Glucose,Whole Blood 154 mg/dL (70-110)
[2024-11-02] MEDS: POTASSIUM CHLORIDE 10 MEQ in WATER FOR INJECTION 1 100ML.BAG IVPB STA (23:07)
[2024-11-02] MEDS: POTASSIUM CHLORIDE 10 MEQ in WATER FOR INJECTION 1 100ML.BAG IVPB SCH (23:10)
[2024-11-03 06:11] LABS: Glucose,Whole Blood 112 mg/dL (70-110)
[2024-11-03 07:45] LABS: ALT 9 U/L (4-34); AST 15 U/L (14-36); African American GFR (CKD) >90 (>60 ml/min/1.73 sqM); Albumin 2.4 g/dL (3.5-5.0); Albumin/Globulin Ratio 1.0; Alkaline Phosphatase 103 U/L (38-126); Anion Gap 2 mmol/L; Blood Urea Nitrogen 19 mg/dL (7-17); Calcium 7.5 mg/dL (8.4-10.2); Carbon Dioxide 27 mmol/L (22-30); Chloride 106 mmol/L (98-107); Globulin 2.4 g/dL; Glucose 99 mg/dL (74-99); Non-African American GFR(CKD) 88 (>60 ml/min/1.73 sqM); Potassium 3.1 mmol/L (3.5-5.1); Sodium 135 mmol/L (137-145); Total Protein 4.8 g/dL (6.3-8.2)
[2024-11-03 07:53] LABS: Basophils # (A) 0.02 10*3/uL (0.00-0.10); Basophils % (A) 0.3 %; Eosinophils # (A) 0.17 10*3/uL (0.04-0.35); Eosinophils % (A) 2.9 %; HCT 25.2 % (37.2-46.3); HGB 7.7 g/dL (12.0-15.0); Lymphocytes # (A) 1.19 10*3/uL (0.90-5.00); Lymphocytes % (A) 20.0 %; MCH 30.4 pg (27.0-32.0); MCHC 30.6 g/dL (32.0-37.0); MCV 99.6 fL (80.0-97.0); Monocytes # (A) 0.41 10*3/uL (0.20-1.00); Monocytes % (A) 6.9 %; Neutrophils # (A) 4.13 10*3/uL (1.80-7.70); Neutrophils % (A) 69.4 %; Platelet Count 188 10*3/uL (140-440); RBC 2.53 10*6/uL (4.10-5.20); RDW 15.1 % (11.5-14.5); WBC 5.95 10*3/uL (4.50-10.00)
[2024-11-03] MEDS: POTASSIUM CHLORIDE ER 20 MEQ TAB.ER PO SCH (08:49)
[2024-11-03] MEDS ORDERED: Potassium Replacement Protocol 1 EACH MISC MISCELLANE PRN (10:17)
[2024-11-03] MEDS ORDERED: POTASSIUM CHLORIDE ER 20 MEQ TAB.ER PO SCH (11:00)
--- NOTE | 2024-11-03 11:15 | P.PN ---
Subjective Progress Note Date: 11/03/24 Following for STEWART and electrolytes abnormalities. Patient is seen at bedside today, she is feeling tired but overall better. Her potassium went down to 2.7 overnight. she got IV supplement, today K is 3.1. Objective - Vital Signs Vital signs: Vital Signs Temp 98.2 F 11/03/24 01:10 Pulse 84 11/03/24 08:47 Resp 18 11/03/24 08:47 BP 100/68 11/03/24 07:25 Pulse Ox 97 11/03/24 09:34 FiO2 Intake & Output 11/02/24 11/03/24 11/03/24 18:59 06:59 18:59 Intake Total 240 Output Total 550 400 Balance -550 -160 Weight 80.739 kg Intake: Oral 240 Output: Urine 550 400 Other: Voiding Method Indwelling Catheter Indwelling Catheter Indwelling Catheter # Bowel Movements 4 4 - Exam General: Patient appears well, she is sleepy, responds to verbal commands Lungs: clear to auscultation bilaterally Heart: S1 and S2 normal, no murmurs Abdomen distended Lower extremities Scales and discolorations bilaterally, No edema - Labs CBC & Chem 7: 11/03/24 06:44 11/03/24 06:44 Labs: Abnormal Lab Results - Last 24 Hours (Table) 11/02/24 11/02/24 11/02/24 Range/Units 14:33 20:08 21:09 RBC (4.10-5.20) 10*6/uL Hgb (12.0-15.0) g/dL Hct (37.2-46.3) % MCV (80.0-97.0) fL MCHC (32.0-37.0) g/dL RDW (11.5-14.5) % Sodium 132 L (137-145) mmol/L Potassium 2.6 L* 2.7 L* (3.5-5.1) mmol/L BUN 26 H (7-17) mg/dL POC Glucose (mg/dL) 154 H (70-110) mg/dL Calcium 7.4 L (8.4-10.2) mg/dL Total Protein (6.3-8.2) g/dL Albumin (3.5-5.0) g/dL 11/03/24 11/03/24 11/03/24 Range/Units 06:10 06:44 06:44 RBC 2.53 L (4.10-5.20) 10*6/uL Hgb 7.7 L (12.0-15.0) g/dL Hct 25.2 L (37.2-46.3) % MCV 99.6 H (80.0-97.0) fL MCHC 30.6 L (32.0-37.0) g/dL RDW 15.1 H (11.5-14.5) % Sodium 135 L (137-145) mmol/L Potassium 3.1 L (3.5-5.1) mmol/L BUN 19 H (7-17) mg/dL POC Glucose (mg/dL) 112 H (70-110) mg/dL Calcium 7.5 L (8.4-10.2) mg/dL Total Protein 4.8 L (6.3-8.2) g/dL Albumin 2.4 L (3.5-5.0) g/dL Microbiology - Last 24 Hours (Table) 11/01/24 17:00 Blood Culture - Preliminary Blood 10/31/24 14:36 Blood Culture - Preliminary Blood Assessment and Plan Assessment: 1. Hyponatremia, hypovolemic initially and improved with saline temporarily until the hypovolemic component was corrected. Serum sodium started to decrease subsequently and saline was discontinued. Received IV Lasix Urine osmolarity 228, urine sodium <20 2. STEWART from lower urinary tract obstruction, and possibly from hypotension. Improved. UA is suggestive of UTI. Creatinine on admission was 1.31, today is 0.6 3. Bacteriuria: being followed by ID, not on antibiotics currently 4. Urinary retention Status post Rock catheter placement 5. Ileus with constipation. being followed by surgery 6. Type 2 DM 7. Hypokalemia secondary to loop diuretics. Status post replacement. Plan: continue PO K replacement as needed Check potassium in 4hs Continue with Rock catheter Can likely resume torsemide in 1 to 2 days. Repeat Labs in am
--- NOTE | 2024-11-03 11:23 | P.PN ---
Subjective Progress Note Date: 11/03/24 Ajay Robertson, is a 74-year-old female who presented to [facility] emergency room with a chief complaint of urinary retention, patient stated that she had a Rock catheter up to 3 weeks ago, after Rock catheter was discontinued patient had urine incontinence with a small amount of urine " dribbling " she was having suprapubic fullness and pain, evaluation in the emergency room revealed evidence of urinary retention and urinary tract infection, she was started on IV ceftriaxone in the emergency room and was admitted to medical floor. Evaluation in the emergency room also revealed evidence of hypotension and hyponatremia blood pressure on presentation was 76/50 and sodium was down to 122. Patient has a prolonged past medical history including history of hypertension, hyperlipidemia, advanced COPD, chronic hypoxic respiratory failure requiring home oxygen, diabetes mellitus type 2, congestive heart failure, and history of recently diagnosed lung cancer. On 10/30/2024 patient is alert and oriented x 3. Current vital signs temp 97.1, heart rate 74, respiratory rate 15, blood pressure 97/63 with pulse ox 100% on room air. Infectious disease services consulted. Repeat sodium level has been ordered. Rock catheter in place. Ultrasound of renal bladder and kidneys ord ered. Urine and blood cultures ordered 10/31/2024 patient was seen and examined on the medical floor she is alert and oriented x 3 in no apparent distress there is no fever or chills no headache or dizziness she reports some improvement in her abdominal pain and distention there is no nausea or vomiting no diarrhea and no urinary symptoms Rock catheter is inserted On 11/01/2024 patient is alert and oriented x 3. Current vital signs temp 98.4, heart rate 90, respiratory rate 15, blood pressure 110/62 with pulse ox of 96% on 2 L. Patient denies chest pain or shortness of breath. Patient denies nausea vomiting or diarrhea. Patient denies any urinary burning or frequency. Patient has had multiple bowel movements. Abdomen x-ray completed showing dilated small bowel loops left mid abdomen consider small ileus no signs of obstruction or fecal retention On 11/02/2024 patient is alert and oriented x 3. Patient continuing to have bowel movement. CT of abdomen and pelvis reviewed and ordered per infectious disease patient maintained on Flagyl and Rocephin. Potassium low this a.m. at 2.5 replace per protocol. Current vital signs temp 98.5, rate 65, respiratory rate 17, blood pressure 98/62 with pulse ox 100% on 2 L nasal cannula. Infectious disease, surgical, nephrology, pulmonary and oncology are all following On 11/03/2024 patient is alert and oriented x 3. Patient continuing to have bowel movements. Surgical services are following. Patient remains on Flagyl and Rocephin for positive blood culture infectious disease services following potassium this a.m. 3.1 replace per protocol. Nephrology services following. Patient denies chest pain or shortness of breath. Patient denies nausea vomiting or diarrhea. Patient denies any urinary burning or frequency Objective - Vital Signs Vital signs: Vital Signs Temp 98.2 F 11/03/24 01:10 Pulse 84 11/03/24 08:47 Resp 18 11/03/24 08:47 BP 100/68 11/03/24 07:25 Pulse Ox 97 11/03/24 09:34 FiO2 Intake & Output 11/02/24 11/03/24 11/03/24 18:59 06:59 18:59 Intake Total 240 Output Total 550 400 Balance -550 -160 Weight 80.739 kg Intake: Oral 240 Output: Urine 550 400 Other: Voiding Method Indwelling Catheter Indwelling Catheter Indwelling Catheter # Bowel Movements 4 4 - Exam In general patient is alert and oriented x 3 in no distress HEENT head normocephalic and atraumatic Neck is supple no JVD no goiter no lymphadenopathy no carotid bruit Chest examination is clear to auscultation no crackles no wheezing Cardiac exam reveals regular heart sounds S1 and S2 no gallops no murmurs Abdomen is soft nontender no organomegaly with normal bowel sounds Extremity exam reveals 3+ edema no cyanosis or clubbing Neurological examination reveals no gross focal deficits - Labs CBC & Chem 7: 11/03/24 06:44 11/03/24 06:44 Labs: Abnormal Lab Results - Last 24 Hours (Table) 11/02/24 11/02/24 11/02/24 Range/Units 14:33 20:08 21:09 RBC (4.10-5.20) 10*6/uL Hgb (12.0-15.0) g/dL Hct (37.2-46.3) % MCV (80.0-97.0) fL MCHC (32.0-37.0) g/dL RDW (11.5-14.5) % Sodium 132 L (137-145) mmol/L Potassium 2.6 L* 2.7 L* (3.5-5.1) mmol/L BUN 26 H (7-17) mg/dL POC Glucose (mg/dL) 154 H (70-110) mg/dL Calcium 7.4 L (8.4-10.2) mg/dL Total Protein (6.3-8.2) g/dL Albumin (3.5-5.0) g/dL 11/03/24 11/03/24 11/03/24 Range/Units 06:10 06:44 06:44 RBC 2.53 L (4.10-5.20) 10*6/uL Hgb 7.7 L (12.0-15.0) g/dL Hct 25.2 L (37.2-46.3) % MCV 99.6 H (80.0-97.0) fL MCHC 30.6 L (32.0-37.0) g/dL RDW 15.1 H (11.5-14.5) % Sodium 135 L (137-145) mmol/L Potassium 3.1 L (3.5-5.1) mmol/L BUN 19 H (7-17) mg/dL POC Glucose (mg/dL) 112 H (70-110) mg/dL Calcium 7.5 L (8.4-10.2) mg/dL Total Protein 4.8 L (6.3-8.2) g/dL Albumin 2.4 L (3.5-5.0) g/dL Microbiology - Last 24 Hours (Table) 11/01/24 17:00 Blood Culture - Preliminary Blood 10/31/24 14:36 Blood Culture - Preliminary Blood Assessment and Plan Assessment: Urinary tract infection Sepsis, with hypotension Positive blood culture Severe hyponatremia Urinary retention Lung cancer Acute kidney injury with elevated BUN and creatinine Underlying history of advanced COPD Underlying history of hypertension Underlying history of hyperlipidemia Underlying history of chronic hypoxic respiratory failure maintained on home oxygen Underlying history of diabetes mellitus Underlying history of degenerative disc disease and osteoarthritis At this time patient was seen and examined Home medications reviewed and reordered Blood culture and urine culture ordered Infectious disease consultation requested Will follow closely
--- NOTE | 2024-11-03 11:30 | P.PN ---
Subjective Progress Note Date: 11/03/24 Patient is stable. There is no acute changes. No surgical invention is planned. Objective - Vital Signs Vital signs: Vital Signs Temp 98.2 F 11/03/24 01:10 Pulse 84 11/03/24 08:47 Resp 18 11/03/24 08:47 BP 100/68 11/03/24 07:25 Pulse Ox 97 11/03/24 09:34 FiO2 Intake & Output 11/02/24 11/03/24 11/03/24 18:59 06:59 18:59 Intake Total 240 Output Total 550 400 Balance -550 -160 Weight 80.739 kg Intake: Oral 240 Output: Urine 550 400 Other: Voiding Method Indwelling Catheter Indwelling Catheter Indwelling Catheter # Bowel Movements 4 4 - Labs CBC & Chem 7: 11/03/24 06:44 11/03/24 06:44 Labs: Abnormal Lab Results - Last 24 Hours (Table) 11/02/24 11/02/24 11/02/24 Range/Units 14:33 20:08 21:09 RBC (4.10-5.20) 10*6/uL Hgb (12.0-15.0) g/dL Hct (37.2-46.3) % MCV (80.0-97.0) fL MCHC (32.0-37.0) g/dL RDW (11.5-14.5) % Sodium 132 L (137-145) mmol/L Potassium 2.6 L* 2.7 L* (3.5-5.1) mmol/L BUN 26 H (7-17) mg/dL POC Glucose (mg/dL) 154 H (70-110) mg/dL Calcium 7.4 L (8.4-10.2) mg/dL Total Protein (6.3-8.2) g/dL Albumin (3.5-5.0) g/dL 11/03/24 11/03/24 11/03/24 Range/Units 06:10 06:44 06:44 RBC 2.53 L (4.10-5.20) 10*6/uL Hgb 7.7 L (12.0-15.0) g/dL Hct 25.2 L (37.2-46.3) % MCV 99.6 H (80.0-97.0) fL MCHC 30.6 L (32.0-37.0) g/dL RDW 15.1 H (11.5-14.5) % Sodium 135 L (137-145) mmol/L Potassium 3.1 L (3.5-5.1) mmol/L BUN 19 H (7-17) mg/dL POC Glucose (mg/dL) 112 H (70-110) mg/dL Calcium 7.5 L (8.4-10.2) mg/dL Total Protein 4.8 L (6.3-8.2) g/dL Albumin 2.4 L (3.5-5.0) g/dL Microbiology - Last 24 Hours (Table) 11/01/24 17:00 Blood Culture - Preliminary Blood 10/31/24 14:36 Blood Culture - Preliminary Blood
[2024-11-03 11:47] LABS: Glucose,Whole Blood 147 mg/dL (70-110)
[2024-11-03] MEDS: HYDROcodone/APAP 5-325MG 1 EACH TAB PO PRN (15:51)
--- NOTE | 2024-11-03 15:58 | P.PN ---
Subjective Progress Note Date: 11/03/24 Principal diagnosis: Reason for follow-up is positive UA and bacteremia Patient is a 74-year-old female with a past medical history significant for heart failure COPD diabetes mellitus reflux hyperlipidemia and recent diagnosis of lung cancer patient has been brought into the hospital from oncology office concerning for urinary retention/oliguria low blood pressure c oncern for possible infection. On today's evaluation that is 11/03/2024, patient did have a temperature of 99.8 F this afternoon however patient denies having any chills, patient is on 2 L nasal oxygen and breathing comfortably no chest pain or cough, the patient did not have any nausea vomiting abdominal pain and is having bowel movement. Patient did have a white count of 5.95, creatinine 0.68 blood culture repeat so far negative Objective - Vital Signs Vital signs: Vital Signs Temp 99.8 F H 11/03/24 14:00 Pulse 81 11/03/24 14:00 Resp 18 11/03/24 14:00 BP 93/60 11/03/24 14:00 Pulse Ox 100 11/03/24 14:00 FiO2 Intake & Output 11/02/24 11/03/24 11/03/24 18:59 06:59 18:59 Intake Total 240 Output Total 550 400 Balance -550 -160 Weight 80.739 kg Intake: Oral 240 Output: Urine 550 400 Other: Voiding Method Indwelling Catheter Indwelling Catheter Indwelling Catheter # Bowel Movements 4 4 - Exam GENERAL DESCRIPTION: An elderly female lying in bed in no distress RESPIRATORY SYSTEM: Unlabored breathing , decreased breath sounds at bases HEART: S1 S2 regular rate and rhythm , ABDOMEN: Soft , no tenderness EXTREMITIES: No edema feet - Labs CBC & Chem 7: 11/03/24 06:44 11/03/24 06:44 Labs: Abnormal Lab Results - Last 24 Hours (Table) 11/02/24 11/02/24 11/03/24 Range/Units 20:08 21:09 06:10 RBC (4.10-5.20) 10*6/uL Hgb (12.0-15.0) g/dL Hct (37.2-46.3) % MCV (80.0-97.0) fL MCHC (32.0-37.0) g/dL RDW (11.5-14.5) % Sodium (137-145) mmol/L Potassium 2.7 L* (3.5-5.1) mmol/L BUN (7-17) mg/dL POC Glucose (mg/dL) 154 H 112 H (70-110) mg/dL Calcium (8.4-10.2) mg/dL Total Protein (6.3-8.2) g/dL Albumin (3.5-5.0) g/dL 11/03/24 11/03/24 11/03/24 Range/Units 06:44 06:44 11:46 RBC 2.53 L (4.10-5.20) 10*6/uL Hgb 7.7 L (12.0-15.0) g/dL Hct 25.2 L (37.2-46.3) % MCV 99.6 H (80.0-97.0) fL MCHC 30.6 L (32.0-37.0) g/dL RDW 15.1 H (11.5-14.5) % Sodium 135 L (137-145) mmol/L Potassium 3.1 L (3.5-5.1) mmol/L BUN 19 H (7-17) mg/dL POC Glucose (mg/dL) 147 H (70-110) mg/dL Calcium 7.5 L (8.4-10.2) mg/dL Total Protein 4.8 L (6.3-8.2) g/dL Albumin 2.4 L (3.5-5.0) g/dL Microbiology - Last 24 Hours (Table) 11/01/24 17:00 Blood Culture - Preliminary Blood 10/31/24 14:36 Blood Culture - Preliminary Blood Assessment and Plan (1) Asymptomatic bacteriuria Current Visit: Yes Status: Acute Code(s): R82.71 - BACTERIURIA SNOMED Code(s): 663339085 (2) Positive blood culture Current Visit: Yes Status: Acute Code(s): R78.81 - BACTEREMIA SNOMED Code(s): 414679237 (3) Penicillin allergy Current Visit: No Status: Acute Code(s): Z88.0 - ALLERGY STATUS TO PENICILLIN SNOMED Code(s): 57748868 Plan: 1patient being brought into the hospital concerning for urinary symptom or dribbling however the patient denies having any burning frequency suprapubic pain no suprapubic tenderness was noticed on examination did have a positive UA more likely representing asymptomatic bacteriuria and no need for antibiotic therapy 2-patient also have positive blood culture with gram-positive bacilli which has been finalized with Clostridium which is likely of gut origin and not contamination blood culture to be repeated document clearance of bacteremia 3CT of abdominal pelvis did show evidence of distention and colitis 4patient blood culture repeat has been negative white count normal, will be treated with Rocephin 2 g daily and IV Flagyl and hopefully transition to oral antibiotic on discharge Dictation was produced using [employer] dictation software. please excuse any grammatical, word or spelling errors.
[2024-11-03 17:07] LABS: Glucose,Whole Blood 145 mg/dL (70-110)
[2024-11-03 21:15] LABS: Glucose,Whole Blood 124 mg/dL (70-110)
[2024-11-04 06:29] LABS: Glucose,Whole Blood 104 mg/dL (70-110)
--- NOTE | 2024-11-04 10:19 | P.PN ---
Subjective Progress Note Date: 11/04/24 Ajay Robertson, is a 74-year-old female who presented to [facility] emergency room with a chief complaint of urinary retention, patient stated that she had a Rock catheter up to 3 weeks ago, after Rock catheter was discontinued patient had urine incontinence with a small amount of urine " dribbling " she was having suprapubic fullness and pain, evaluation in the emergency room revealed evidence of urinary retention and urinary tract infection, she was started on IV ceftriaxone in the emergency room and was admitted to medical floor. Evaluation in the emergency room also revealed evidence of hypotension and hyponatremia blood pressure on presentation was 76/50 and sodium was down to 122. Patient has a prolonged past medical history including history of hypertension, hyperlipidemia, advanced COPD, chronic hypoxic respiratory failure requiring home oxygen, diabetes mellitus type 2, congestive heart failure, and history of recently diagnosed lung cancer. On 10/30/2024 patient is alert and oriented x 3. Current vital signs temp 97.1, heart rate 74, respiratory rate 15, blood pressure 97/63 with pulse ox 100% on room air. Infectious disease services consulted. Repeat sodium level has been ordered. Rock catheter in place. Ultrasound of renal bladder and kidneys ord ered. Urine and blood cultures ordered 10/31/2024 patient was seen and examined on the medical floor she is alert and oriented x 3 in no apparent distress there is no fever or chills no headache or dizziness she reports some improvement in her abdominal pain and distention there is no nausea or vomiting no diarrhea and no urinary symptoms Rock catheter is inserted. On 11/01/2024 patient is alert and oriented x 3. Current vital signs temp 98.4, heart rate 90, respiratory rate 15, blood pressure 110/62 with pulse ox of 96% on 2 L. Patient denies chest pain or shortness of breath. Patient denies nausea vomiting or diarrhea. Patient denies any urinary burning or frequency. Patient has had multiple bowel movements. Abdomen x-ray completed showing dilated small bowel loops left mid abdomen consider small ileus no signs of obstruction or fecal retention On 11/02/2024 patient is alert and oriented x 3. Patient continuing to have bowel movement. CT of abdomen and pelvis reviewed and ordered per infectious disease patient maintained on Flagyl and Rocephin. Potassium low this a.m. at 2.5 replace per protocol. Current vital signs temp 98.5, rate 65, respiratory rate 17, blood pressure 98/62 with pulse ox 100% on 2 L nasal cannula. Infectious disease, surgical, nephrology, pulmonary and oncology are all following On 11/03/2024 patient is alert and oriented x 3. Patient continuing to have bowel movements. Surgical services are following. Patient remains on Flagyl and Rocephin for positive blood culture infectious disease services following potassium this a.m. 3.1 replace per protocol. Nephrology services following. Patient denies chest pain or shortness of breath. Patient denies nausea vomiting or diarrhea. Patient denies any urinary burning or frequency 11/04/2024 patient was seen and examined on the medical floor she is alert and oriented x 3 in no apparent distress there is no fever or chills no headache or dizziness she reports some improvement in her abdominal pain and distention there is no nausea or vomiting no diarrhea and no urinary symptoms Rock catheter is inserted. Diarrhea has improved, diet is being advanced gradually. Objective - Vital Signs Vital signs: Vital Signs Temp 98.0 F 11/04/24 06:46 Pulse 79 11/04/24 06:46 Resp 18 11/04/24 06:46 BP 96/61 11/04/24 06:56 Pulse Ox 97 11/04/24 09:26 FiO2 Intake & Output 11/03/24 11/04/24 11/04/24 18:59 06:59 18:59 Output Total 400 500 Balance -400 -500 Output: Urine 400 500 Other: Voiding Method Indwelling Catheter Indwelling Catheter # Bowel Movements 3 4 - Exam In general patient is alert and oriented x 3 in no distress HEENT head normocephalic and atraumatic Neck is supple no JVD no goiter no lymphadenopathy no carotid bruit Chest examination is clear to auscultation no crackles no wheezing Cardiac exam reveals regular heart sounds S1 and S2 no gallops no murmurs Abdomen is soft nontender no organomegaly with normal bowel sounds Extremity exam reveals 3+ edema no cyanosis or clubbing Neurological examination reveals no gross focal deficits - Labs CBC & Chem 7: 11/03/24 06:44 11/03/24 06:44 Labs: Abnormal Lab Results - Last 24 Hours (Table) 11/03/24 11/03/24 11/03/24 Range/Units 11:46 17:05 21:13 POC Glucose (mg/dL) 147 H 145 H 124 H (70-110) mg/dL Microbiology - Last 24 Hours (Table) 11/01/24 17:00 Blood Culture - Preliminary Blood 10/31/24 14:36 Blood Culture - Preliminary Blood Assessment and Plan Plan: Urinary tract infection Sepsis, with hypotension Severe hyponatremia Urinary retention Acute kidney injury with elevated BUN and creatinine Underlying history of advanced COPD Underlying history of hypertension Underlying history of hyperlipidemia Underlying history of chronic hypoxic respiratory failure maintained on home oxygen Underlying history of diabetes mellitus Underlying history of degenerative disc disease and osteoarthritis At this time patient was seen and examined Home medications reviewed and reordered Patient was started on IV ceftriaxone and IV fluid in the emergency room Blood culture and urine culture ordered Infectious disease consultation requested Will follow closely
--- NOTE | 2024-11-04 10:32 | P.PN ---
Subjective Progress Note Date: 11/04/24 Following for STEWART and electrolytes abnormalities. Patient is seen at bedside today, shedenied any new complaints. no labs this am. making urine. Objective - Vital Signs Vital signs: Vital Signs Temp 98.0 F 11/04/24 06:46 Pulse 79 11/04/24 06:46 Resp 18 11/04/24 06:46 BP 96/61 11/04/24 06:56 Pulse Ox 97 11/04/24 09:26 FiO2 Intake & Output 11/03/24 11/04/24 11/04/24 18:59 06:59 18:59 Output Total 400 500 Balance -400 -500 Output: Urine 400 500 Other: Voiding Method Indwelling Catheter Indwelling Catheter # Bowel Movements 3 4 General: Patient appears well, no distress Lungs: clear to auscultation bilaterally Heart: S1 and S2 normal, no murmurs Abdomen distended Lower extremities Scales and discolorations bilaterally, No edema - Labs CBC & Chem 7: 11/03/24 06:44 11/03/24 06:44 Labs: Abnormal Lab Results - Last 24 Hours (Table) 11/03/24 11/03/24 11/03/24 Range/Units 11:46 17:05 21:13 POC Glucose (mg/dL) 147 H 145 H 124 H (70-110) mg/dL Microbiology - Last 24 Hours (Table) 11/01/24 17:00 Blood Culture - Preliminary Blood 10/31/24 14:36 Blood Culture - Preliminary Blood Assessment and Plan Assessment: 1. Hyponatremia, hypovolemic initially and improved with saline temporarily until the hypovolemic component was corrected. Serum sodium started to decrease subsequently and saline was discontinued. Received IV Lasix Urine osmolarity 228, urine sodium <20 2. STEWART from lower urinary tract obstruction, and possibly from hypotension. Improved. UA is suggestive of UTI. Creatinine on admission was 1.31, today is 0.6 3. Bacteriuria: being followed by ID, not on antibiotics currently 4. Urinary retention Status post Rock catheter placement 5. Ileus with constipation. being followed by surgery 6. Type 2 DM 7. Hypokalemia secondary to loop diuretics. Status post replacement. Plan: check BMP today continue PO K replacement as needed Continue with Rock catheter continue to hold diuretics for now. Repeat Labs in am
[2024-11-04 12:07] LABS: Basophils # (A) 0.03 10*3/uL (0.00-0.10); Basophils % (A) 0.5 %; Eosinophils # (A) 0.10 10*3/uL (0.04-0.35); Eosinophils % (A) 1.8 %; HCT 23.8 % (37.2-46.3); HGB 7.4 g/dL (12.0-15.0); Lymphocytes # (A) 1.30 10*3/uL (0.90-5.00); Lymphocytes % (A) 23.0 %; MCH 31.5 pg (27.0-32.0); MCHC 31.1 g/dL (32.0-37.0); MCV 101.3 fL (80.0-97.0); Monocytes # (A) 0.35 10*3/uL (0.20-1.00); Monocytes % (A) 6.2 %; Neutrophils # (A) 3.81 10*3/uL (1.80-7.70); Neutrophils % (A) 67.4 %; Platelet Count 141 10*3/uL (140-440); RBC 2.35 10*6/uL (4.10-5.20); RDW 14.9 % (11.5-14.5); WBC 5.65 10*3/uL (4.50-10.00)
[2024-11-04 12:40] LABS: ALT 8 U/L (4-34); AST 14 U/L (14-36); African American GFR (CKD) >90 (>60 ml/min/1.73 sqM); Albumin 2.2 g/dL (3.5-5.0); Albumin/Globulin Ratio 1.0; Alkaline Phosphatase 82 U/L (38-126); Anion Gap 6 mmol/L; Blood Urea Nitrogen 11 mg/dL (7-17); Calcium 7.8 mg/dL (8.4-10.2); Carbon Dioxide 22 mmol/L (22-30); Chloride 108 mmol/L (98-107); Globulin 2.2 g/dL; Glucose 95 mg/dL (74-99); Non-African American GFR(CKD) >90 (>60 ml/min/1.73 sqM); Sodium 136 mmol/L (137-145); Total Protein 4.4 g/dL (6.3-8.2)
[2024-11-04 12:40] LABS: Glucose,Whole Blood 113 mg/dL (70-110)
[2024-11-04 12:54] LABS: Potassium 2.1 mmol/L (3.5-5.1)
--- NOTE | 2024-11-04 13:04 | P.PN ---
Subjective Progress Note Date: 11/04/24 There is no acute changes. Patient is having bowel movements. Abdomen is soft. Objective - Vital Signs Vital signs: Vital Signs Temp 98.0 F 11/04/24 06:46 Pulse 79 11/04/24 08:43 Resp 18 11/04/24 08:43 BP 96/61 11/04/24 06:56 Pulse Ox 97 11/04/24 09:26 FiO2 Intake & Output 11/03/24 11/04/24 11/04/24 18:59 06:59 18:59 Output Total 400 500 Balance -400 -500 Output: Urine 400 500 Other: Voiding Method Indwelling Catheter Indwelling Catheter Indwelling Catheter # Bowel Movements 3 4 - Labs CBC & Chem 7: 11/04/24 11:52 11/04/24 11:52 Labs: Abnormal Lab Results - Last 24 Hours (Table) 11/03/24 11/03/24 11/04/24 Range/Units 17:05 21:13 11:52 RBC 2.35 L (4.10-5.20) 10*6/uL Hgb 7.4 L (12.0-15.0) g/dL Hct 23.8 L (37.2-46.3) % MCV 101.3 H (80.0-97.0) fL MCHC 31.1 L (32.0-37.0) g/dL RDW 14.9 H (11.5-14.5) % Immature Gran # 0.06 H (0.00-0.04) 10*3/uL Sodium (137-145) mmol/L Potassium (3.5-5.1) mmol/L Chloride (98-107) mmol/L POC Glucose (mg/dL) 145 H 124 H (70-110) mg/dL Calcium (8.4-10.2) mg/dL Total Bilirubin (0.2-1.3) mg/dL Total Protein (6.3-8.2) g/dL Albumin (3.5-5.0) g/dL 11/04/24 11/04/24 Range/Units 11:52 12:39 RBC (4.10-5.20) 10*6/uL Hgb (12.0-15.0) g/dL Hct (37.2-46.3) % MCV (80.0-97.0) fL MCHC (32.0-37.0) g/dL RDW (11.5-14.5) % Immature Gran # (0.00-0.04) 10*3/uL Sodium 136 L (137-145) mmol/L Potassium 2.1 L* (3.5-5.1) mmol/L Chloride 108 H (98-107) mmol/L POC Glucose (mg/dL) 113 H (70-110) mg/dL Calcium 7.8 L (8.4-10.2) mg/dL Total Bilirubin 0.1 L (0.2-1.3) mg/dL Total Protein 4.4 L (6.3-8.2) g/dL Albumin 2.2 L (3.5-5.0) g/dL Microbiology - Last 24 Hours (Table) 11/01/24 17:00 Blood Culture - Preliminary Blood 10/31/24 14:36 Blood Culture - Preliminary Blood
[2024-11-04] MEDS: POTASSIUM CHLORIDE ER 20 MEQ TAB.ER PO STA ×2 (13:40→15:12)
--- NOTE | 2024-11-04 15:27 | P.PN ---
Subjective Progress Note Date: 11/04/24 Principal diagnosis: Reason for follow-up is positive UA and bacteremia Patient is a 74-year-old female with a past medical history significant for heart failure COPD diabetes mellitus reflux hyperlipidemia and recent diagnosis of lung cancer patient has been brought into the hospital from oncology office concerning for urinary retention/oliguria low blood pressure c oncern for possible infection. On today's evaluation that is 11/04/2024, Patient is afebrile patient is currently on 2 L nasal oxygen and denies having any shortness of breath, the patient denies any chest pain or cough, the patient denies any nausea vomiting did not have any abdominal pain and mention having some bowel movements. Patient white count is 5.65, creatinine 0.61 blood culture repeat has been negative Objective - Vital Signs Vital signs: Vital Signs Temp 98.0 F 11/04/24 06:46 Pulse 79 11/04/24 08:43 Resp 18 11/04/24 08:43 BP 96/61 11/04/24 06:56 Pulse Ox 97 11/04/24 09:26 FiO2 Intake & Output 11/03/24 11/04/24 11/04/24 18:59 06:59 18:59 Output Total 400 500 Balance -400 -500 Output: Urine 400 500 Other: Voiding Method Indwelling Catheter Indwelling Catheter Indwelling Catheter # Bowel Movements 3 4 - Exam GENERAL DESCRIPTION: An elderly female lying in bed in no distress RESPIRATORY SYSTEM: Unlabored breathing , decreased breath sounds at bases HEART: S1 S2 regular rate and rhythm , ABDOMEN: Soft , no tenderness EXTREMITIES: No edema feet - Labs CBC & Chem 7: 11/04/24 11:52 11/04/24 11:52 Labs: Abnormal Lab Results - Last 24 Hours (Table) 11/03/24 11/03/24 11/04/24 Range/Units 17:05 21:13 11:52 RBC 2.35 L (4.10-5.20) 10*6/uL Hgb 7.4 L (12.0-15.0) g/dL Hct 23.8 L (37.2-46.3) % MCV 101.3 H (80.0-97.0) fL MCHC 31.1 L (32.0-37.0) g/dL RDW 14.9 H (11.5-14.5) % Immature Gran # 0.06 H (0.00-0.04) 10*3/uL Sodium (137-145) mmol/L Potassium (3.5-5.1) mmol/L Chloride (98-107) mmol/L POC Glucose (mg/dL) 145 H 124 H (70-110) mg/dL Calcium (8.4-10.2) mg/dL Total Bilirubin (0.2-1.3) mg/dL Total Protein (6.3-8.2) g/dL Albumin (3.5-5.0) g/dL 11/04/24 11/04/24 Range/Units 11:52 12:39 RBC (4.10-5.20) 10*6/uL Hgb (12.0-15.0) g/dL Hct (37.2-46.3) % MCV (80.0-97.0) fL MCHC (32.0-37.0) g/dL RDW (11.5-14.5) % Immature Gran # (0.00-0.04) 10*3/uL Sodium 136 L (137-145) mmol/L Potassium 2.1 L* (3.5-5.1) mmol/L Chloride 108 H (98-107) mmol/L POC Glucose (mg/dL) 113 H (70-110) mg/dL Calcium 7.8 L (8.4-10.2) mg/dL Total Bilirubin 0.1 L (0.2-1.3) mg/dL Total Protein 4.4 L (6.3-8.2) g/dL Albumin 2.2 L (3.5-5.0) g/dL Microbiology - Last 24 Hours (Table) 11/01/24 17:00 Blood Culture - Preliminary Blood 10/31/24 14:36 Blood Culture - Preliminary Blood Assessment and Plan (1) Asymptomatic bacteriuria Current Visit: Yes Status: Acute Code(s): R82.71 - BACTERIURIA SNOMED Code(s): 910616664 (2) Positive blood culture Current Visit: Yes Status: Acute Code(s): R78.81 - BACTEREMIA SNOMED Code(s): 881676398 (3) Penicillin allergy Current Visit: No Status: Acute Code(s): Z88.0 - ALLERGY STATUS TO PENICILLIN SNOMED Code(s): 67147641 Plan: 1patient being brought into the hospital concerning for urinary symptom or dribbling however the patient denies having any burning frequency suprapubic pain no suprapubic tenderness was noticed on examination did have a positive UA more likely representing asymptomatic bacteriuria and no need for antibiotic therapy 2-patient also have positive blood culture with gram-positive bacilli which has been finalized with Clostridium which is likely of gut origin and not contamination blood culture to be repeated document clearance of bacteremia 3CT of abdominal pelvis did show evidence of distention and colitis 4patient blood culture repeat has been negative white count normal. 5will be treated with Rocephin 2 g daily and IV Flagyl and plan is for oral antibiotic on discharge Dictation was produced using [employer] dictation software. please excuse any grammatical, word or spelling errors. Time with Patient: Less than 30
[2024-11-04 16:23] LABS: Glucose,Whole Blood 109 mg/dL (70-110)
[2024-11-04] MEDS: POTASSIUM CHLORIDE ER 20 MEQ TAB.ER PO SCH (18:39)
[2024-11-04 20:01] LABS: Glucose,Whole Blood 120 mg/dL (70-110)
[2024-11-05] MEDS: POTASSIUM CHLORIDE ER 20 MEQ TAB.ER PO SCH ×2 (01:11→10:03)
[2024-11-05 05:58] LABS: Glucose,Whole Blood 99 mg/dL (70-110)
[2024-11-05 08:02] LABS: Basophils # (A) 0.03 X 10*3/uL (0.00-0.10); Basophils % (A) 0.5 %; Eosinophils # (A) 0.11 X 10*3/uL (0.04-0.35); Eosinophils % (A) 1.8 %; HCT 24.4 % (37.2-46.3); HGB 7.1 g/dL (12.0-15.0); Immature Grans, Automated 0.80 %; Lymphocytes # (A) 1.74 X 10*3/uL (0.90-5.00); Lymphocytes % (A) 29.0 %; MCH 30.1 pg (27.0-32.0); MCHC 29.1 g/dL (32.0-37.0); MCV 103.4 FL (80.0-97.0); Monocytes # (A) 0.42 X 10*3/uL (0.20-1.00); Monocytes % (A) 7.0 %; NRBC Per 100 WBC 0 X 10*3/uL (0.00-0.01); Neutrophils # (A) 3.64 X 10*3/uL (1.80-7.70); Neutrophils % (A) 60.9 %; Platelet Count 155 X 10*3/uL (140-440); RBC 2.36 X 10*6/uL (4.10-5.20); RDW 15.2 % (11.5-14.5); WBC 5.99 X 10*3/uL (4.50-10.00)
[2024-11-05 08:35] LABS: ALT 9 U/L (8-44); AST 13 U/L (13-35); Albumin 2.6 g/dL (3.8-4.9); Albumin/Globulin Ratio 1.30 Ratio (1.60-3.17); Alkaline Phosphatase 79 U/L (41-126); Anion Gap 8.60 mmol/L (4.00-12.00); BUN/Creat Ratio 18.17 Ratio (12.00-20.00); Blood Urea Nitrogen 10.9 mg/dL (9.0-27.0); Calcium 7.7 mg/dL (8.7-10.3); Carbon Dioxide 21.4 mmol/L (21.6-31.8); Chloride 110 mmol/L (96-109); Globulin 2.0 g/dL (1.6-3.3); Glucose 84 mg/dL (70-110); Potassium 2.9 mmol/L (3.5-5.5); Sodium 140 mmol/L (135-145); Total Protein 4.6 g/dL (6.2-8.2)
[2024-11-05 11:39] LABS: Glucose,Whole Blood 112 mg/dL (70-110)
--- NOTE | 2024-11-05 14:24 | P.PN ---
Subjective Progress Note Date: 11/05/24 SURGICAL PROGRESS NOTE CHIEF COMPLAINT: Urine retention HISTORY OF PRESENT ILLNESS: Surgical service following in regards to patient's constipation and fecaloma. Patient reports some mild diffuse abdominal pain. She is having bowel movements. Denies any nausea or vomiting. Afebrile. PHYSICAL EXAM: VITAL SIGNS: Reviewed. GENERAL: no acute distress. ABDOMEN: Soft. Distended. Reducible umbilical hernia. Mild tenderness with palpation. NEUROLOGIC: Alert and oriented. Cranial nerves II through XII grossly intact. ASSESSMENT: 1. Rectal fecaloma with ileus 2. Constipation 3. Steroral colitis 4. 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 Signing provider agrees with the documented findings, assessment, and plan of care. Objective - Vital Signs Vital signs: Vital Signs Temp 98.5 F 11/05/24 13:48 Pulse 51 L 11/05/24 13:48 Resp 16 11/05/24 13:48 BP 88/57 11/05/24 13:48 Pulse Ox 97 11/05/24 13:48 FiO2 Intake & Output 11/04/24 11/05/24 11/05/24 18:59 06:59 18:59 Output Total 525 300 Balance -525 -300 Output: Urine 525 300 Other: Voiding Method Indwelling Catheter Indwelling Catheter # Bowel Movements 2 - Labs CBC & Chem 7: 11/05/24 06:00 11/05/24 06:00 Labs: Abnormal Lab Results - Last 24 Hours (Table) 11/04/24 11/04/24 11/04/24 Range/Units 17:03 20:01 23:13 RBC (4.10-5.20) X 10*6/uL Hgb (12.0-15.0) g/dL Hct (37.2-46.3) % MCV (80.0-97.0) FL MCHC (32.0-37.0) g/dL RDW (11.5-14.5) % Immature Gran # (0.00-0.04) X 10*3/uL Potassium 2.4 L* 2.8 L (3.5-5.1) mmol/L Chloride (96-109) mmol/L Carbon Dioxide (21.6-31.8) mmol/L POC Glucose (mg/dL) 120 H (70-110) mg/dL Calcium (8.7-10.3) mg/dL Total Bilirubin (0.3-1.2) mg/dL Total Protein (6.2-8.2) g/dL Albumin (3.8-4.9) g/dL Albumin/Globulin Ratio (1.60-3.17) Ratio 11/05/24 11/05/24 11/05/24 Range/Units 06:00 06:00 11:37 RBC 2.36 L (4.10-5.20) X 10*6/uL Hgb 7.1 L (12.0-15.0) g/dL Hct 24.4 L (37.2-46.3) % MCV 103.4 H (80.0-97.0) FL MCHC 29.1 L (32.0-37.0) g/dL RDW 15.2 H (11.5-14.5) % Immature Gran # 0.05 H (0.00-0.04) X 10*3/uL Potassium 2.9 L (3.5-5.1) mmol/L Chloride 110 H (96-109) mmol/L Carbon Dioxide 21.4 L (21.6-31.8) mmol/L POC Glucose (mg/dL) 112 H (70-110) mg/dL Calcium 7.7 L (8.7-10.3) mg/dL Total Bilirubin <0.2 L (0.3-1.2) mg/dL Total Protein 4.6 L (6.2-8.2) g/dL Albumin 2.6 L (3.8-4.9) g/dL Albumin/Globulin Ratio 1.30 L (1.60-3.17) Ratio Microbiology - Last 24 Hours (Table) 11/01/24 17:00 Blood Culture - Preliminary Blood
[2024-11-05 16:20] LABS: Glucose,Whole Blood 100 mg/dL (70-110)
--- NOTE | 2024-11-05 17:52 | P.PN ---
Subjective Progress Note Date: 11/05/24 Ajay Robertson, is a 74-year-old female who presented to [facility] emergency room with a chief complaint of urinary retention, patient stated that she had a Rock catheter up to 3 weeks ago, after Rock catheter was discontinued patient had urine incontinence with a small amount of urine " dribbling " she was having suprapubic fullness and pain, evaluation in the emergency room revealed evidence of urinary retention and urinary tract infection, she was started on IV ceftriaxone in the emergency room and was admitted to medical floor. Evaluation in the emergency room also revealed evidence of hypotension and hyponatremia blood pressure on presentation was 76/50 and sodium was down to 122. Patient has a prolonged past medical history including history of hypertension, hyperlipidemia, advanced COPD, chronic hypoxic respiratory failure requiring home oxygen, diabetes mellitus type 2, congestive heart failure, and history of recently diagnosed lung cancer. On 10/30/2024 patient is alert and oriented x 3. Current vital signs temp 97.1, heart rate 74, respiratory rate 15, blood pressure 97/63 with pulse ox 100% on room air. Infectious disease services consulted. Repeat sodium level has been ordered. Rock catheter in place. Ultrasound of renal bladder and kidneys ord ered. Urine and blood cultures ordered 10/31/2024 patient was seen and examined on the medical floor she is alert and oriented x 3 in no apparent distress there is no fever or chills no headache or dizziness she reports some improvement in her abdominal pain and distention there is no nausea or vomiting no diarrhea and no urinary symptoms Rock catheter is inserted. On 11/01/2024 patient is alert and oriented x 3. Current vital signs temp 98.4, heart rate 90, respiratory rate 15, blood pressure 110/62 with pulse ox of 96% on 2 L. Patient denies chest pain or shortness of breath. Patient denies nausea vomiting or diarrhea. Patient denies any urinary burning or frequency. Patient has had multiple bowel movements. Abdomen x-ray completed showing dilated small bowel loops left mid abdomen consider small ileus no signs of obstruction or fecal retention On 11/02/2024 patient is alert and oriented x 3. Patient continuing to have bowel movement. CT of abdomen and pelvis reviewed and ordered per infectious disease patient maintained on Flagyl and Rocephin. Potassium low this a.m. at 2.5 replace per protocol. Current vital signs temp 98.5, rate 65, respiratory rate 17, blood pressure 98/62 with pulse ox 100% on 2 L nasal cannula. Infectious disease, surgical, nephrology, pulmonary and oncology are all following On 11/03/2024 patient is alert and oriented x 3. Patient continuing to have bowel movements. Surgical services are following. Patient remains on Flagyl and Rocephin for positive blood culture infectious disease services following potassium this a.m. 3.1 replace per protocol. Nephrology services following. Patient denies chest pain or shortness of breath. Patient denies nausea vomiting or diarrhea. Patient denies any urinary burning or frequency 11/04/2024 patient was seen and examined on the medical floor she is alert and oriented x 3 in no apparent distress there is no fever or chills no headache or dizziness she reports some improvement in her abdominal pain and distention there is no nausea or vomiting no diarrhea and no urinary symptoms Rock catheter is inserted. Diarrhea has improved, diet is being advanced gradually. 11/05/2024 patient was seen and examined on the medical floor she is alert and oriented x 3 in no apparent distress she is still complaining of loose stools potassium is low again today at 2.8 she still has a Rock catheter in otherwise she denies any complaints there is no fever or chills no headache or dizziness no chest pain no shortness of breath no cough no nausea or vomiting no abdominal pain or urinary symptoms. Plan to correct potassium, monitor hemoglobin today at 7.1. Plan for voiding trials with removing Rock catheter. Patient is insisting on going home and not going back to the [facility], she is being assessed by physical therapy. Objective - Vital Signs Vital signs: Vital Signs Temp 98.5 F 11/05/24 13:48 Pulse 51 L 11/05/24 13:48 Resp 16 11/05/24 13:48 BP 88/57 11/05/24 13:48 Pulse Ox 97 11/05/24 13:48 FiO2 Intake & Output 11/04/24 11/05/24 11/05/24 18:59 06:59 18:59 Output Total 525 300 950 Balance -525 -300 -950 Output: Urine 525 300 950 Other: Voiding Method Indwelling Catheter Indwelling Catheter # Bowel Movements 2 2 - Exam In general patient is alert and oriented x 3 in no distress HEENT head normocephalic and atraumatic Neck is supple no JVD no goiter no lymphadenopathy no carotid bruit Chest examination is clear to auscultation no crackles no wheezing Cardiac exam reveals regular heart sounds S1 and S2 no gallops no murmurs Abdomen is soft nontender no organomegaly with normal bowel sounds Extremity exam reveals 3+ edema no cyanosis or clubbing Neurological examination reveals no gross focal deficits - Labs CBC & Chem 7: 11/05/24 06:00 11/05/24 15:02 Labs: Abnormal Lab Results - Last 24 Hours (Table) 11/04/24 11/04/24 11/04/24 Range/Units 17:03 20:01 23:13 RBC (4.10-5.20) X 10*6/uL Hgb (12.0-15.0) g/dL Hct (37.2-46.3) % MCV (80.0-97.0) FL MCHC (32.0-37.0) g/dL RDW (11.5-14.5) % Immature Gran # (0.00-0.04) X 10*3/uL Potassium 2.4 L* 2.8 L (3.5-5.1) mmol/L Chloride (96-109) mmol/L Carbon Dioxide (21.6-31.8) mmol/L POC Glucose (mg/dL) 120 H (70-110) mg/dL Calcium (8.7-10.3) mg/dL Total Bilirubin (0.3-1.2) mg/dL Total Protein (6.2-8.2) g/dL Albumin (3.8-4.9) g/dL Albumin/Globulin Ratio (1.60-3.17) Ratio 11/05/24 11/05/24 11/05/24 Range/Units 06:00 06:00 11:37 RBC 2.36 L (4.10-5.20) X 10*6/uL Hgb 7.1 L (12.0-15.0) g/dL Hct 24.4 L (37.2-46.3) % MCV 103.4 H (80.0-97.0) FL MCHC 29.1 L (32.0-37.0) g/dL RDW 15.2 H (11.5-14.5) % Immature Gran # 0.05 H (0.00-0.04) X 10*3/uL Potassium 2.9 L (3.5-5.1) mmol/L Chloride 110 H (96-109) mmol/L Carbon Dioxide 21.4 L (21.6-31.8) mmol/L POC Glucose (mg/dL) 112 H (70-110) mg/dL Calcium 7.7 L (8.7-10.3) mg/dL Total Bilirubin <0.2 L (0.3-1.2) mg/dL Total Protein 4.6 L (6.2-8.2) g/dL Albumin 2.6 L (3.8-4.9) g/dL Albumin/Globulin Ratio 1.30 L (1.60-3.17) Ratio Microbiology - Last 24 Hours (Table) 11/01/24 17:00 Blood Culture - Preliminary Blood Assessment and Plan Plan: Urinary tract infection Sepsis, with hypotension Severe hyponatremia Urinary retention Acute kidney injury with elevated BUN and creatinine Underlying history of advanced COPD Underlying history of hypertension Underlying history of hyperlipidemia Underlying history of chronic hypoxic respiratory failure maintained on home oxygen Underlying history of diabetes mellitus Underlying history of degenerative disc disease and osteoarthritis At this time patient was seen and examined Home medications reviewed and reordered Patient was started on IV ceftriaxone and IV fluid in the emergency room Blood culture and urine culture ordered Infectious disease consultation requested Will follow closely
--- NOTE | 2024-11-05 20:41 | P.PN ---
Subjective Patient is seen for follow-up for hyponatremia. Currently off of IV fluids. Received a couple of doses of Lasix. Patient is comfortable Tolerating oral intake. Serum sodium at 140 today. Objective - Vital Signs Vital signs: Vital Signs Temp 98.5 F 11/05/24 13:48 Pulse 51 L 11/05/24 13:48 Resp 16 11/05/24 13:48 BP 88/57 11/05/24 13:48 Pulse Ox 97 11/05/24 13:48 FiO2 Intake & Output 11/05/24 11/05/24 11/06/24 06:59 18:59 06:59 Output Total 300 950 Balance -300 -950 Output: Urine 300 950 Other: Voiding Method Indwelling Catheter # Bowel Movements 2 - Exam General: Patient appears well, no acute distress Lungs: clear to auscultation bilaterally Heart: S1 and S2 normal, no murmurs Abdomen is soft Lower extremities Scales and discolorations bilaterally, trace edema - Labs CBC & Chem 7: 11/05/24 06:00 11/05/24 15:02 Labs: Abnormal Lab Results - Last 24 Hours (Table) 11/04/24 11/05/24 11/05/24 Range/Units 23:13 06:00 06:00 RBC 2.36 L (4.10-5.20) X 10*6/uL Hgb 7.1 L (12.0-15.0) g/dL Hct 24.4 L (37.2-46.3) % MCV 103.4 H (80.0-97.0) FL MCHC 29.1 L (32.0-37.0) g/dL RDW 15.2 H (11.5-14.5) % Immature Gran # 0.05 H (0.00-0.04) X 10*3/uL Potassium 2.8 L 2.9 L (3.5-5.1) mmol/L Chloride 110 H (96-109) mmol/L Carbon Dioxide 21.4 L (21.6-31.8) mmol/L POC Glucose (mg/dL) (70-110) mg/dL Calcium 7.7 L (8.7-10.3) mg/dL Total Bilirubin <0.2 L (0.3-1.2) mg/dL Total Protein 4.6 L (6.2-8.2) g/dL Albumin 2.6 L (3.8-4.9) g/dL Albumin/Globulin Ratio 1.30 L (1.60-3.17) Ratio 11/05/24 Range/Units 11:37 RBC (4.10-5.20) X 10*6/uL Hgb (12.0-15.0) g/dL Hct (37.2-46.3) % MCV (80.0-97.0) FL MCHC (32.0-37.0) g/dL RDW (11.5-14.5) % Immature Gran # (0.00-0.04) X 10*3/uL Potassium (3.5-5.1) mmol/L Chloride (96-109) mmol/L Carbon Dioxide (21.6-31.8) mmol/L POC Glucose (mg/dL) 112 H (70-110) mg/dL Calcium (8.7-10.3) mg/dL Total Bilirubin (0.3-1.2) mg/dL Total Protein (6.2-8.2) g/dL Albumin (3.8-4.9) g/dL Albumin/Globulin Ratio (1.60-3.17) Ratio Microbiology - Last 24 Hours (Table) 11/01/24 17:00 Blood Culture - Preliminary Blood Assessment and Plan Assessment: 1. Hyponatremia, hypovolemic initially and improved with saline temporarily until the hypovolemic component was corrected. Serum sodium started to decrease subsequently and saline was discontinued. Received IV Lasix and currently off of IV fluids and diuretics. Urine osmolarity 228, urine sodium <20 2. STEWART from lower urinary tract obstruction, and possibly from hypotension. Improved. UA is suggestive of UTI. Creatinine on admission was 1.31, today is 0.7 3. Bacteriuria: being followed by ID, not on antibiotics currently 4. Urinary retention Status post Rock catheter placement 5. Ileus with constipation. being followed by surgery 6. Type 2 DM 7. Hypokalemia secondary to loop diuretics. Status post replacement. Plan: Repeat labs in a.m. May need to resume IV fluids if sodium is higher. Encouraged increased oral intake.
[2024-11-05 20:45] LABS: Glucose,Whole Blood 95 mg/dL (70-110)
[2024-11-06 06:09] LABS: Glucose,Whole Blood 93 mg/dL (70-110)
[2024-11-06 08:35] LABS: ALT 8 U/L (8-44); AST 13 U/L (13-35); Albumin 2.6 g/dL (3.8-4.9); Albumin/Globulin Ratio 1.53 Ratio (1.60-3.17); Alkaline Phosphatase 68 U/L (41-126); Anion Gap 8.30 mmol/L (4.00-12.00); BUN/Creat Ratio 14.80 Ratio (12.00-20.00); Blood Urea Nitrogen 7.4 mg/dL (9.0-27.0); Calcium 7.7 mg/dL (8.7-10.3); Carbon Dioxide 18.7 mmol/L (21.6-31.8); Chloride 118 mmol/L (96-109); Globulin 1.7 g/dL (1.6-3.3); Glucose 86 mg/dL (70-110); Potassium 3.1 mmol/L (3.5-5.5); Sodium 145 mmol/L (135-145); Total Protein 4.3 g/dL (6.2-8.2)
[2024-11-06 08:52] LABS: Basophils # (A) 0.03 X 10*3/uL (0.00-0.10); Basophils % (A) 0.5 %; Eosinophils # (A) 0.16 X 10*3/uL (0.04-0.35); Eosinophils % (A) 2.7 %; HCT 23.9 % (37.2-46.3); HGB 6.9 g/dL (12.0-15.0); Immature Grans, Automated 0.70 %; Lymphocytes # (A) 1.87 X 10*3/uL (0.90-5.00); Lymphocytes % (A) 31.7 %; MCH 30.3 pg (27.0-32.0); MCHC 28.9 g/dL (32.0-37.0); MCV 104.8 FL (80.0-97.0); Monocytes # (A) 0.47 X 10*3/uL (0.20-1.00); Monocytes % (A) 8.0 %; NRBC Per 100 WBC 0 X 10*3/uL (0.00-0.01); Neutrophils # (A) 3.33 X 10*3/uL (1.80-7.70); Neutrophils % (A) 56.4 %; Platelet Count 143 X 10*3/uL (140-440); RBC 2.28 X 10*6/uL (4.10-5.20); RDW 15.6 % (11.5-14.5); WBC 5.90 X 10*3/uL (4.50-10.00)
--- NOTE | 2024-11-06 10:28 | P.PN ---
Subjective Progress Note Date: 11/06/24 Ajay Robertson, is a 74-year-old female who presented to [facility] emergency room with a chief complaint of urinary retention, patient stated that she had a Rock catheter up to 3 weeks ago, after Rock catheter was discontinued patient had urine incontinence with a small amount of urine " dribbling " she was having suprapubic fullness and pain, evaluation in the emergency room revealed evidence of urinary retention and urinary tract infection, she was started on IV ceftriaxone in the emergency room and was admitted to medical floor. Evaluation in the emergency room also revealed evidence of hypotension and hyponatremia blood pressure on presentation was 76/50 and sodium was down to 122. Patient has a prolonged past medical history including history of hypertension, hyperlipidemia, advanced COPD, chronic hypoxic respiratory failure requiring home oxygen, diabetes mellitus type 2, congestive heart failure, and history of recently diagnosed lung cancer. On 10/30/2024 patient is alert and oriented x 3. Current vital signs temp 97.1, heart rate 74, respiratory rate 15, blood pressure 97/63 with pulse ox 100% on room air. Infectious disease services consulted. Repeat sodium level has been ordered. Rock catheter in place. Ultrasound of renal bladder and kidneys ord ered. Urine and blood cultures ordered 10/31/2024 patient was seen and examined on the medical floor she is alert and oriented x 3 in no apparent distress there is no fever or chills no headache or dizziness she reports some improvement in her abdominal pain and distention there is no nausea or vomiting no diarrhea and no urinary symptoms Rock catheter is inserted On 11/01/2024 patient is alert and oriented x 3. Current vital signs temp 98.4, heart rate 90, respiratory rate 15, blood pressure 110/62 with pulse ox of 96% on 2 L. Patient denies chest pain or shortness of breath. Patient denies nausea vomiting or diarrhea. Patient denies any urinary burning or frequency. Patient has had multiple bowel movements. Abdomen x-ray completed showing dilated small bowel loops left mid abdomen consider small ileus no signs of obstruction or fecal retention On 11/02/2024 patient is alert and oriented x 3. Patient continuing to have bowel movement. CT of abdomen and pelvis reviewed and ordered per infectious disease patient maintained on Flagyl and Rocephin. Potassium low this a.m. at 2.5 replace per protocol. Current vital signs temp 98.5, rate 65, respiratory rate 17, blood pressure 98/62 with pulse ox 100% on 2 L nasal cannula. Infectious disease, surgical, nephrology, pulmonary and oncology are all following On 11/03/2024 patient is alert and oriented x 3. Patient continuing to have bowel movements. Surgical services are following. Patient remains on Flagyl and Rocephin for positive blood culture infectious disease services following potassium this a.m. 3.1 replace per protocol. Nephrology services following. Patient denies chest pain or shortness of breath. Patient denies nausea vomiting or diarrhea. Patient denies any urinary burning or frequency On 11/04/2024 patient was seen and examined on the medical floor she is alert and oriented x 3 in no apparent distress there is no fever or chills no headache or dizziness no chest pain no shortness of breath no cough no nausea or vomiting no abdominal pain no diarrhea and no urinary symptoms. She is still having difficulty moving or standing, she is not able to walk at this time, PT and OT are following, will transfer to rehab in the next 1 to 2 days. On 11/05/2024 patient was seen and examined on the medical floor she is alert and oriented x 3 in no apparent distress there is no fever or chills no headache or dizziness no chest pain no shortness of breath no cough no nausea or vomiting no abdominal pain no diarrhea and no urinary symptoms. She still has significant weakness and gait disturbance, plan is for transfer to [facility] for rehab. On 11/06/2024 patient is alert and oriented x 3. Hemoglobin today 6.91 unit of PRBCs have been ordered discussed case with surgical services awaiting further recommendations. Patient denies chest pain or shortness of breath. Patient denies nausea vomiting or diarrhea. Patient denies any urinary burning or frequency. DC planning to ECF. Per ID p.o. antibiotics upon discharge. Current vital signs temp 98.2, heart rate 77, respiratory rate 18, blood pressure 159/87 with pulse ox of 94% on room air Objective - Vital Signs Vital signs: Vital Signs Temp 98.3 F 11/06/24 08:00 Pulse 94 11/06/24 08:00 Resp 18 11/06/24 08:00 BP 98/62 11/06/24 08:00 Pulse Ox 97 07/29/25 08:34 FiO2 Intake & Output 11/05/24 11/06/24 11/06/24 18:59 06:59 18:59 Output Total 950 425 Balance -950 -425 Output: Urine 950 425 Other: Voiding Method Indwelling Catheter Indwelling Catheter # Voids 1 # Bowel Movements 2 3 - Exam In general patient is alert and oriented x 3 in no distress HEENT head normocephalic and atraumatic Neck is supple no JVD no goiter no lymphadenopathy no carotid bruit Chest examination is clear to auscultation no crackles no wheezing Cardiac exam reveals regular heart sounds S1 and S2 no gallops no murmurs Abdomen is soft nontender no organomegaly with normal bowel sounds Extremity exam reveals 3+ edema no cyanosis or clubbing Neurological examination reveals no gross focal deficits - Labs CBC & Chem 7: 11/06/24 03:24 11/06/24 03:24 Labs: Abnormal Lab Results - Last 24 Hours (Table) 11/05/24 11/06/24 11/06/24 Range/Units 11:37 03:24 03:24 RBC 2.28 L (4.10-5.20) X 10*6/uL Hgb 6.9 A* (12.0-15.0) g/dL Hct 23.9 L (37.2-46.3) % MCV 104.8 H (80.0-97.0) FL MCHC 28.9 L (32.0-37.0) g/dL RDW 15.6 H (11.5-14.5) % Potassium 3.1 L (3.5-5.5) mmol/L Chloride 118 H (96-109) mmol/L Carbon Dioxide 18.7 L (21.6-31.8) mmol/L BUN 7.4 L (9.0-27.0) mg/dL Creatinine 0.5 L (0.6-1.5) mg/dL POC Glucose (mg/dL) 112 H (70-110) mg/dL Calcium 7.7 L (8.7-10.3) mg/dL Total Bilirubin <0.2 L (0.3-1.2) mg/dL Total Protein 4.3 L (6.2-8.2) g/dL Albumin 2.6 L (3.8-4.9) g/dL Albumin/Globulin Ratio 1.53 L (1.60-3.17) Ratio Microbiology - Last 24 Hours (Table) 10/31/24 14:36 Blood Culture - Final Blood Assessment and Plan Assessment: Urinary tract infection Sepsis, with hypotension Positive blood culture Severe hyponatremia Urinary retention Lung cancer Acute kidney injury with elevated BUN and creatinine Underlying history of advanced COPD Underlying history of hypertension Underlying history of hyperlipidemia Underlying history of chronic hypoxic respiratory failure maintained on home oxygen Underlying history of diabetes mellitus Underlying history of degenerative disc disease and osteoarthritis At this time patient was seen and examined Home medications reviewed and reordered Blood culture and urine culture ordered Infectious disease consultation requested Will follow closely
[2024-11-06 11:04] LABS: Glucose,Whole Blood 104 mg/dL (70-110)
--- NOTE | 2024-11-06 13:00 | P.PN ---
Subjective Patient is seen for follow-up for hyponatremia. Currently off of IV fluids. Received a couple of doses of Lasix previously. Patient is comfortable Tolerating oral intake. Serum sodium is up to 145 today Objective - Vital Signs Vital signs: Vital Signs Temp 98 F 11/06/24 12:56 Pulse 66 11/06/24 12:56 Resp 14 11/06/24 12:56 BP 102/55 11/06/24 12:56 Pulse Ox 97 11/06/24 08:34 FiO2 Intake & Output 11/05/24 11/06/24 11/06/24 18:59 06:59 18:59 Intake Total 0 Output Total 950 425 Balance -950 -425 0 Weight 80.739 kg Intake: Blood Product 0 Unit 0 Output: Urine 950 425 Other: Voiding Method Indwelling Catheter Indwelling Catheter # Voids 1 # Bowel Movements 2 3 - Exam General: Patient appears well, no acute distress Lungs: clear to auscultation bilaterally Heart: S1 and S2 normal, no murmurs Abdomen is soft Lower extremities Scales and discolorations bilaterally, trace edema - Labs CBC & Chem 7: 11/06/24 03:24 11/06/24 03:24 Labs: Abnormal Lab Results - Last 24 Hours (Table) 11/06/24 11/06/24 11/06/24 Range/Units 03:24 03:24 10:10 RBC 2.28 L (4.10-5.20) X 10*6/uL Hgb 6.9 A* (12.0-15.0) g/dL Hct 23.9 L (37.2-46.3) % MCV 104.8 H (80.0-97.0) FL MCHC 28.9 L (32.0-37.0) g/dL RDW 15.6 H (11.5-14.5) % Potassium 3.1 L (3.5-5.5) mmol/L Chloride 118 H (96-109) mmol/L Carbon Dioxide 18.7 L (21.6-31.8) mmol/L BUN 7.4 L (9.0-27.0) mg/dL Creatinine 0.5 L (0.6-1.5) mg/dL Calcium 7.7 L (8.7-10.3) mg/dL Total Bilirubin <0.2 L (0.3-1.2) mg/dL Total Protein 4.3 L (6.2-8.2) g/dL Albumin 2.6 L (3.8-4.9) g/dL Albumin/Globulin Ratio 1.53 L (1.60-3.17) Ratio Crossmatch See Detail Microbiology - Last 24 Hours (Table) 10/31/24 14:36 Blood Culture - Final Blood Assessment and Plan Assessment: 1. Hyponatremia, hypovolemic initially and improved with saline temporarily until the hypovolemic component was corrected. Serum sodium started to decrease subsequently and saline was discontinued. Received IV Lasix and currently off of IV fluids and diuretics. Urine osmolarity 228, urine sodium <20 2. STEWART from lower urinary tract obstruction, and possibly from hypotension. Improved. UA is suggestive of UTI. Creatinine on admission was 1.31, today is 0.7 3. Bacteriuria: being followed by ID, not on antibiotics currently 4. Urinary retention Status post Rock catheter placement 5. Ileus with constipation. being followed by surgery 6. Type 2 DM 7. Hypokalemia secondary to loop diuretics. Status post replacement. Plan: Add D5W at 50 cc an hour Repeat sodium this evening Repeat labs in a.m. Replace potassium Encouraged increased oral intake.
--- NOTE | 2024-11-06 13:10 | P.PN ---
Subjective Progress Note Date: 11/06/24 SURGICAL PROGRESS NOTE CHIEF COMPLAINT: Urine retention HISTORY OF PRESENT ILLNESS: Surgical service following in regards to patient's constipation and fecaloma. Patient denies any abdominal pain at this time. She is having bowel movements. Tolerated regular diet. Hemoglobin is 6.9 she is receiving 1 unit of blood. Potassium 3.1 Patient seen and examined with Dr. Weber PHYSICAL EXAM: VITAL SIGNS: Reviewed. GENERAL: no acute distress. ABDOMEN: Soft. Distended. Reducible umbilical hernia. Mild tenderness with palpation. NEUROLOGIC: Alert and oriented. Cranial nerves II through XII grossly intact. ASSESSMENT: 1. Rectal fecaloma with ileus 2. Constipation 3. Steroral colitis 4. Hypokalemia 5. Anemia PLAN: -Schedule patient for EGD and colonoscopy on with Dr. Weber -Start GoLytely bowel prep tomorrow -Start clear liquid diet tomorrow -Medicine service correcting potassium level -Continue lactulose daily -Antibiotics per ID service - Eliquis placed on hold for endoscopy procedures Physician Patient Safety Tech note has been reviewed by physician. Signing provider agrees with the documented findings, assessment, and plan of care. Objective - Vital Signs Vital signs: Vital Signs Temp 98 F 11/06/24 12:56 Pulse 66 11/06/24 12:56 Resp 14 11/06/24 12:56 BP 102/55 11/06/24 12:56 Pulse Ox 97 11/06/24 08:34 FiO2 Intake & Output 11/05/24 11/06/24 11/06/24 18:59 06:59 18:59 Intake Total 0 Output Total 950 425 Balance -950 -425 0 Weight 80.739 kg Intake: Blood Product 0 Unit 0 Output: Urine 950 425 Other: Voiding Method Indwelling Catheter Indwelling Catheter # Voids 1 # Bowel Movements 2 3 - Labs CBC & Chem 7: 11/06/24 03:24 11/06/24 03:24 Labs: Abnormal Lab Results - Last 24 Hours (Table) 11/06/24 11/06/24 11/06/24 Range/Units 03:24 03:24 10:10 RBC 2.28 L (4.10-5.20) X 10*6/uL Hgb 6.9 A* (12.0-15.0) g/dL Hct 23.9 L (37.2-46.3) % MCV 104.8 H (80.0-97.0) FL MCHC 28.9 L (32.0-37.0) g/dL RDW 15.6 H (11.5-14.5) % Potassium 3.1 L (3.5-5.5) mmol/L Chloride 118 H (96-109) mmol/L Carbon Dioxide 18.7 L (21.6-31.8) mmol/L BUN 7.4 L (9.0-27.0) mg/dL Creatinine 0.5 L (0.6-1.5) mg/dL Calcium 7.7 L (8.7-10.3) mg/dL Total Bilirubin <0.2 L (0.3-1.2) mg/dL Total Protein 4.3 L (6.2-8.2) g/dL Albumin 2.6 L (3.8-4.9) g/dL Albumin/Globulin Ratio 1.53 L (1.60-3.17) Ratio Crossmatch See Detail Microbiology - Last 24 Hours (Table) 10/31/24 14:36 Blood Culture - Final Blood
[2024-11-06] MEDS: DEXTROSE 5% IN WATER 1,000 ML IV SCH (15:31)
--- NOTE | 2024-11-06 15:49 | P.PN ---
Subjective Progress Note Date: 11/05/24 Principal diagnosis: Reason for follow-up is positive UA and bacteremia Patient is a 74-year-old female with a past medical history significant for heart failure COPD diabetes mellitus reflux hyperlipidemia and recent diagnosis of lung cancer patient has been brought into the hospital from oncology office concerning for urinary retention/oliguria low blood pressure c oncern for possible infection. On today's evaluation that is 11/05/2024, patient has been afebrile, patient is breathing comfortably and is currently on 2 L nasal cannula oxygen patient denies having any chest pain and cough, patient denies nausea vomiting or diarrhea and no abdominal pain Patient white count is 5.99, creatinine 0.6 Objective - Vital Signs Vital signs: Vital Signs Temp 98.7 F 11/05/24 07:37 Pulse 70 11/05/24 08:54 Resp 16 11/05/24 08:54 BP 92/48 11/05/24 07:37 Pulse Ox 95 11/05/24 09:22 FiO2 Intake & Output 11/04/24 11/05/24 11/05/24 18:59 06:59 18:59 Output Total 525 300 Balance -525 -300 Output: Urine 525 300 Other: Voiding Method Indwelling Catheter Indwelling Catheter # Bowel Movements 2 - Exam GENERAL DESCRIPTION: An elderly female lying in bed in no distress RESPIRATORY SYSTEM: Unlabored breathing , decreased breath sounds at bases HEART: S1 S2 regular rate and rhythm , ABDOMEN: Soft , no tenderness EXTREMITIES: No edema feet - Labs CBC & Chem 7: 11/06/24 03:24 11/06/24 03:24 Labs: Abnormal Lab Results - Last 24 Hours (Table) 11/04/24 11/04/24 11/04/24 Range/Units 17:03 20:01 23:13 RBC (4.10-5.20) X 10*6/uL Hgb (12.0-15.0) g/dL Hct (37.2-46.3) % MCV (80.0-97.0) FL MCHC (32.0-37.0) g/dL RDW (11.5-14.5) % Immature Gran # (0.00-0.04) X 10*3/uL Potassium 2.4 L* 2.8 L (3.5-5.1) mmol/L Chloride (96-109) mmol/L Carbon Dioxide (21.6-31.8) mmol/L POC Glucose (mg/dL) 120 H (70-110) mg/dL Calcium (8.7-10.3) mg/dL Total Bilirubin (0.3-1.2) mg/dL Total Protein (6.2-8.2) g/dL Albumin (3.8-4.9) g/dL Albumin/Globulin Ratio (1.60-3.17) Ratio 11/05/24 11/05/24 11/05/24 Range/Units 06:00 06:00 11:37 RBC 2.36 L (4.10-5.20) X 10*6/uL Hgb 7.1 L (12.0-15.0) g/dL Hct 24.4 L (37.2-46.3) % MCV 103.4 H (80.0-97.0) FL MCHC 29.1 L (32.0-37.0) g/dL RDW 15.2 H (11.5-14.5) % Immature Gran # 0.05 H (0.00-0.04) X 10*3/uL Potassium 2.9 L (3.5-5.1) mmol/L Chloride 110 H (96-109) mmol/L Carbon Dioxide 21.4 L (21.6-31.8) mmol/L POC Glucose (mg/dL) 112 H (70-110) mg/dL Calcium 7.7 L (8.7-10.3) mg/dL Total Bilirubin <0.2 L (0.3-1.2) mg/dL Total Protein 4.6 L (6.2-8.2) g/dL Albumin 2.6 L (3.8-4.9) g/dL Albumin/Globulin Ratio 1.30 L (1.60-3.17) Ratio Microbiology - Last 24 Hours (Table) 11/01/24 17:00 Blood Culture - Preliminary Blood Assessment and Plan (1) Asymptomatic bacteriuria Current Visit: Yes Status: Acute Code(s): R82.71 - BACTERIURIA SNOMED Code(s): 066119699 (2) Positive blood culture Current Visit: Yes Status: Acute Code(s): R78.81 - BACTEREMIA SNOMED Code(s): 308360590 (3) Penicillin allergy Current Visit: No Status: Acute Code(s): Z88.0 - ALLERGY STATUS TO PENICILLIN SNOMED Code(s): 39043643 Plan: 1patient being brought into the hospital concerning for urinary symptom or dribbling however the patient denies having any burning frequency suprapubic pain no suprapubic tenderness was noticed on examination did have a positive UA more likely representing asymptomatic bacteriuria and no need for antibiotic therapy 2-patient also have positive blood culture with gram-positive bacilli which has been finalized with Clostridium which is likely of gut origin and not contamination blood culture to be repeated document clearance of bacteremia 3CT of abdominal pelvis did show evidence of distention and colitis 4patient blood culture repeat has been negative white count normal. 5patient is currently being treated with Rocephin 2 g daily and IV Flagyl and monitor clinical course closely Dictation was produced using [employer] dictation software. please excuse any grammatical, word or spelling errors.
--- NOTE | 2024-11-06 15:52 | P.PN ---
Subjective Progress Note Date: 11/06/24 Principal diagnosis: Reason for follow-up is positive UA and bacteremia Patient is a 74-year-old female with a past medical history significant for heart failure COPD diabetes mellitus reflux hyperlipidemia and recent diagnosis of lung cancer patient has been brought into the hospital from oncology office concerning for urinary retention/oliguria low blood pressure c oncern for possible infection. On today's evaluation that is 11/06/2024, Patient is afebrile this morning patient denies having any chest pain shortness of breath or cough, the patient is currently on 2 L nasal cannula oxygen patient denies any abdominal pain no diarrhea no nausea no vomiting. The patient white count is 5.90 hemoglobin is down to 6.90 creatinine 0.5 blood culture repeat has been negative Objective - Vital Signs Vital signs: Vital Signs Temp 98 F 11/06/24 15:06 Pulse 71 11/06/24 15:06 Resp 14 11/06/24 15:06 BP 110/70 11/06/24 15:06 Pulse Ox 98 11/06/24 15:06 FiO2 Intake & Output 11/05/24 11/06/24 11/06/24 18:59 06:59 18:59 Intake Total 276 Output Total 950 425 Balance -950 -425 276 Weight 80.739 kg Intake: Blood Product 276 Rc Pheresis 2 As3 Unit 276 [id number] Output: Urine 950 425 Other: Voiding Method Indwelling Catheter Indwelling Catheter # Voids 1 # Bowel Movements 2 3 - Exam GENERAL DESCRIPTION: An elderly female lying in bed in no distress RESPIRATORY SYSTEM: Unlabored breathing , decreased breath sounds at bases HEART: S1 S2 regular rate and rhythm , ABDOMEN: Soft , no tenderness EXTREMITIES: No edema feet - Labs CBC & Chem 7: 11/06/24 03:24 11/06/24 03:24 Labs: Abnormal Lab Results - Last 24 Hours (Table) 11/06/24 11/06/24 11/06/24 Range/Units 03:24 03:24 10:10 RBC 2.28 L (4.10-5.20) X 10*6/uL Hgb 6.9 A* (12.0-15.0) g/dL Hct 23.9 L (37.2-46.3) % MCV 104.8 H (80.0-97.0) FL MCHC 28.9 L (32.0-37.0) g/dL RDW 15.6 H (11.5-14.5) % Potassium 3.1 L (3.5-5.5) mmol/L Chloride 118 H (96-109) mmol/L Carbon Dioxide 18.7 L (21.6-31.8) mmol/L BUN 7.4 L (9.0-27.0) mg/dL Creatinine 0.5 L (0.6-1.5) mg/dL Calcium 7.7 L (8.7-10.3) mg/dL Total Bilirubin <0.2 L (0.3-1.2) mg/dL Total Protein 4.3 L (6.2-8.2) g/dL Albumin 2.6 L (3.8-4.9) g/dL Albumin/Globulin Ratio 1.53 L (1.60-3.17) Ratio Crossmatch See Detail Microbiology - Last 24 Hours (Table) 10/31/24 14:36 Blood Culture - Final Blood Assessment and Plan (1) Asymptomatic bacteriuria Current Visit: Yes Status: Acute Code(s): R82.71 - BACTERIURIA SNOMED Code(s): 852098685 (2) Positive blood culture Current Visit: Yes Status: Acute Code(s): R78.81 - BACTEREMIA SNOMED Code(s): 044363527 (3) Penicillin allergy Current Visit: No Status: Acute Code(s): Z88.0 - ALLERGY STATUS TO PENICILLIN SNOMED Code(s): 31973237 Plan: 1patient being brought into the hospital concerning for urinary symptom or dribbling however the patient denies having any burning frequency suprapubic pain no suprapubic tenderness was noticed on examination did have a positive UA more likely representing asymptomatic bacteriuria and no need for antibiotic therapy 2-patient also have positive blood culture with gram-positive bacilli which has been finalized with Clostridium which is likely of gut origin and not contamination blood culture to be repeated document clearance of bacteremia 3CT of abdominal pelvis did show evidence of distention and colitis 4patient blood culture repeat has been negative white count normal. 5patient noted to have drop in hemoglobin to be monitored by admitting and surgery for now continue with Rocephin and Flagyl while inpatient Dictation was produced using [employer] dictation software. please excuse any grammatical, word or spelling errors. Time with Patient: Less than 30
[2024-11-06] MEDS: POTASSIUM CHLORIDE ER 20 MEQ TAB.ER PO STA (16:47)
[2024-11-06 16:57] LABS: Glucose,Whole Blood 114 mg/dL (70-110)
[2024-11-06 20:07] LABS: Glucose,Whole Blood 120 mg/dL (70-110)
--- NOTE | 2024-11-06 21:59 | P.PN ---
Subjective Progress Note Date: 11/06/24 Principal diagnosis: lung mass In f/u today pt reports she is feeling good, her resp status is stable on 2L O2, she states she is going to be getting out of bad and hopes to start ambulating. No other acute c/o Objective - Vital Signs Vital signs: Vital Signs Temp 98 F 11/06/24 15:06 Pulse 71 11/06/24 15:06 Resp 14 11/06/24 15:06 BP 110/70 11/06/24 15:06 Pulse Ox 98 11/06/24 15:06 FiO2 Intake & Output 11/06/24 11/06/24 11/07/24 06:59 18:59 06:59 Intake Total 276 Output Total 425 525 Balance -425 -249 Weight 80.739 kg Intake: Blood Product 276 Rc Pheresis 2 As3 Unit 276 [id number] Output: Urine 425 525 Other: Voiding Method Indwelling Catheter # Voids 1 # Bowel Movements 3 3 - Constitutional General appearance: Present: cooperative, no acute distress, obese - EENT Eyes: Present: anicteric sclerae, EOMI ENT: Present: hearing grossly normal - Respiratory Respiratory: bilateral: CTA, diminished - Cardiovascular Rhythm: regular - Gastrointestinal General gastrointestinal: Present: normal bowel sounds, soft - Integumentary Integumentary: Present: normal - Neurologic Neurologic: Present: CNII-XII intact - Musculoskeletal Musculoskeletal: Present: generalized weakness - Psychiatric Psychiatric: Present: A&O x's 3, appropriate affect, intact judgment & insight - Labs CBC & Chem 7: 11/06/24 03:24 11/06/24 03:24 Labs: Abnormal Lab Results - Last 24 Hours (Table) 11/06/24 11/06/24 11/06/24 Range/Units 03:24 03:24 10:10 RBC 2.28 L (4.10-5.20) X 10*6/uL Hgb 6.9 A* (12.0-15.0) g/dL Hct 23.9 L (37.2-46.3) % MCV 104.8 H (80.0-97.0) FL MCHC 28.9 L (32.0-37.0) g/dL RDW 15.6 H (11.5-14.5) % Potassium 3.1 L (3.5-5.5) mmol/L Chloride 118 H (96-109) mmol/L Carbon Dioxide 18.7 L (21.6-31.8) mmol/L BUN 7.4 L (9.0-27.0) mg/dL Creatinine 0.5 L (0.6-1.5) mg/dL POC Glucose (mg/dL) (70-110) mg/dL Calcium 7.7 L (8.7-10.3) mg/dL Total Bilirubin <0.2 L (0.3-1.2) mg/dL Total Protein 4.3 L (6.2-8.2) g/dL Albumin 2.6 L (3.8-4.9) g/dL Albumin/Globulin Ratio 1.53 L (1.60-3.17) Ratio Crossmatch See Detail 11/06/24 11/06/24 Range/Units 16:51 20:06 RBC (4.10-5.20) X 10*6/uL Hgb (12.0-15.0) g/dL Hct (37.2-46.3) % MCV (80.0-97.0) FL MCHC (32.0-37.0) g/dL RDW (11.5-14.5) % Potassium (3.5-5.5) mmol/L Chloride (96-109) mmol/L Carbon Dioxide (21.6-31.8) mmol/L BUN (9.0-27.0) mg/dL Creatinine (0.6-1.5) mg/dL POC Glucose (mg/dL) 114 H 120 H (70-110) mg/dL Calcium (8.7-10.3) mg/dL Total Bilirubin (0.3-1.2) mg/dL Total Protein (6.2-8.2) g/dL Albumin (3.8-4.9) g/dL Albumin/Globulin Ratio (1.60-3.17) Ratio Crossmatch Microbiology - Last 24 Hours (Table) 10/31/24 14:36 Blood Culture - Final Blood Assessment and Plan (1) Lung mass Current Visit: Yes Status: Acute Priority: High Code(s): R91.8 - OTHER NONSPECIFIC ABNORMAL FINDING OF LUNG FIELD SNOMED Code(s): 975292762 Plan: Lung mass -CT scan of chest in June/2024 which showed 7 cm RUL mass. -PET scan in August/2024 which showed a suspicious uptake in RUL 6 cm mass, otherwise negative. -Pt is aware clinical picture is highly suggestive for bronchogenic carcinoma. Poor performance status and multiple co-morbidities has prevented a biopsy of the same. -Pulmonary has recommended IR evaluation once pt urine and blood infections have been cleared and her PS is improved. -Case was previously discussed with RadOnc. Dr. Ferrara may consider definitive radiation therapy (even if tissue diagnosis cannot be obtained). Recommend f/u with Rad Onc to be evaluated for the same Macrocytic Anemia -Progressive since July 2024 -Iron studies earlier this month most consistent with anemia of inflammation. B12 and folate WNL. Few additional studies ordered -Transfuse for a Hgb <7 or if symptomatic. Hgb 6.9 today, 1 unit PRBCs ordered -Pt was on eliquis, this has been held -General Surgery has seen pt, plans for endoscopy tomorrow, pending findings
[2024-11-07 06:15] LABS: Glucose,Whole Blood 109 mg/dL (70-110)
[2024-11-07 07:55] LABS: Basophils # (A) 0.03 X 10*3/uL (0.00-0.10); Basophils % (A) 0.5 %; Eosinophils # (A) 0.13 X 10*3/uL (0.04-0.35); Eosinophils % (A) 2.3 %; HCT 26.6 % (37.2-46.3); HGB 7.9 g/dL (12.0-15.0); Immature Grans, Automated 0.70 %; Lymphocytes # (A) 1.90 X 10*3/uL (0.90-5.00); Lymphocytes % (A) 34.2 %; MCH 30.4 pg (27.0-32.0); MCHC 29.7 g/dL (32.0-37.0); MCV 102.3 FL (80.0-97.0); Monocytes # (A) 0.40 X 10*3/uL (0.20-1.00); Monocytes % (A) 7.2 %; NRBC Per 100 WBC 0 X 10*3/uL (0.00-0.01); Neutrophils # (A) 3.05 X 10*3/uL (1.80-7.70); Neutrophils % (A) 55.1 %; Platelet Count 144 X 10*3/uL (140-440); RBC 2.60 X 10*6/uL (4.10-5.20); RDW 16.7 % (11.5-14.5); WBC 5.55 X 10*3/uL (4.50-10.00)
[2024-11-07 08:31] LABS: ALT 8 U/L (8-44); AST 13 U/L (13-35); Albumin 2.5 g/dL (3.8-4.9); Albumin/Globulin Ratio 1.39 Ratio (1.60-3.17); Alkaline Phosphatase 63 U/L (41-126); Anion Gap 7.50 mmol/L (4.00-12.00); BUN/Creat Ratio 12.40 Ratio (12.00-20.00); Blood Urea Nitrogen 6.2 mg/dL (9.0-27.0); Calcium 7.8 mg/dL (8.7-10.3); Carbon Dioxide 19.5 mmol/L (21.6-31.8); Chloride 113 mmol/L (96-109); Globulin 1.8 g/dL (1.6-3.3); Glucose 94 mg/dL (70-110); Potassium 2.8 mmol/L (3.5-5.5); Sodium 140 mmol/L (135-145); Total Protein 4.3 g/dL (6.2-8.2)
[2024-11-07] MEDS: PEG 3350 (236 GM/BTL) + LYTES 4,000 ML BOTTLE PO ONE (11:27)
[2024-11-07 11:43] LABS: Glucose,Whole Blood 98 mg/dL (70-110)
[2024-11-07] MEDS: POTASSIUM CHLORIDE ER 20 MEQ TAB.ER PO STA (11:44)
[2024-11-07] MEDS ORDERED: POTASSIUM CHLORIDE 20 MEQ in WATER FOR INJECTION 1 100ML.BAG IVPB SCH (12:00)
[2024-11-07] MEDS ORDERED: POTASSIUM CHLORIDE ER 20 MEQ TAB.ER PO SCH (12:00)
--- NOTE | 2024-11-07 12:03 | P.PN ---
Subjective Patient is seen in follow-up for hyponatremia. Sodium level normal today. Currently on D5W. Has been drinking water. Vital signs are stable. General: No acute distress. HEENT: Head exam is unremarkable. LUNGS: No audible rhonchi or wheezes. HEART: Rate and Rhythm are regular. ABDOMEN: Non-tender. EXTREMITITES: No edema. Objective - Vital Signs Vital signs: Vital Signs Temp 98.0 F 11/07/24 07:53 Pulse 77 11/07/24 07:53 Resp 16 11/07/24 07:53 BP 97/60 11/07/24 07:53 Pulse Ox 95 11/07/24 09:27 FiO2 Intake & Output 11/06/24 11/07/24 11/07/24 18:59 06:59 18:59 Intake Total 276 Output Total 525 Balance -249 Weight 80.739 kg Intake: Blood Product 276 Rc Pheresis 2 As3 Unit 276 [id number] Output: Urine 525 Other: Voiding Method Indwelling Catheter # Bowel Movements 3 1 - Labs CBC & Chem 7: 11/07/24 03:53 11/07/24 03:53 Labs: Abnormal Lab Results - Last 24 Hours (Table) 11/06/24 11/06/24 11/06/24 Range/Units 10:10 16:51 20:06 RBC (4.10-5.20) X 10*6/uL Hgb (12.0-15.0) g/dL Hct (37.2-46.3) % MCV (80.0-97.0) FL MCHC (32.0-37.0) g/dL RDW (11.5-14.5) % Retic Count (0.10-1.80) % Potassium (3.5-5.5) mmol/L Chloride (96-109) mmol/L Carbon Dioxide (21.6-31.8) mmol/L BUN (9.0-27.0) mg/dL Creatinine (0.6-1.5) mg/dL POC Glucose (mg/dL) 114 H 120 H (70-110) mg/dL Calcium (8.7-10.3) mg/dL Total Bilirubin (0.3-1.2) mg/dL Total Protein (6.2-8.2) g/dL Albumin (3.8-4.9) g/dL Albumin/Globulin Ratio (1.60-3.17) Ratio Crossmatch See Detail 11/07/24 11/07/24 11/07/24 Range/Units 03:53 03:53 03:53 RBC 2.60 L (4.10-5.20) X 10*6/uL Hgb 7.9 L (12.0-15.0) g/dL Hct 26.6 L (37.2-46.3) % MCV 102.3 H (80.0-97.0) FL MCHC 29.7 L (32.0-37.0) g/dL RDW 16.7 H (11.5-14.5) % Retic Count 2.74 H (0.10-1.80) % Potassium 2.8 L (3.5-5.5) mmol/L Chloride 113 H (96-109) mmol/L Carbon Dioxide 19.5 L (21.6-31.8) mmol/L BUN 6.2 L (9.0-27.0) mg/dL Creatinine 0.5 L (0.6-1.5) mg/dL POC Glucose (mg/dL) (70-110) mg/dL Calcium 7.8 L (8.7-10.3) mg/dL Total Bilirubin <0.2 L (0.3-1.2) mg/dL Total Protein 4.3 L (6.2-8.2) g/dL Albumin 2.5 L (3.8-4.9) g/dL Albumin/Globulin Ratio 1.39 L (1.60-3.17) Ratio Crossmatch Microbiology - Last 24 Hours (Table) 11/01/24 17:00 Blood Culture - Final Blood Assessment and Plan Plan: Assessment: 1. Hyponatremia initially improved with normal saline. Subsequently received IV Lasix. Hyponatremia resolved and patient became slightly hypernatremic with sodium level up to 145. She is now on D5W and sodium level today is 140. 2. STEWART secondary to lower urinary tract obstruction. Currently has a Rock catheter. GFR at baseline now. 3. Urinary retention. Rock catheter had to be reinserted. 4. Diabetes mellitus. 5. Hypokalemia from diuresis. 6. Clostridium bacteremia and Proteus UTI on antibiotics. Plan: Hep-Lock IV fluids. Encouraged oral intake, including free water. Potassium being replaced. Repeat potassium level this afternoon. Stop SGLT2 inhibitor due to acute infection.
--- NOTE | 2024-11-07 15:06 | P.PN ---
Subjective Progress Note Date: 11/07/24 SURGICAL PROGRESS NOTE CHIEF COMPLAINT: Urine retention HISTORY OF PRESENT ILLNESS: He denies any abdominal pain at this time she is having bowel movements. She did receive 1 unit of blood for hemoglobin of 6.9. Patient has declined EGD and colonoscopy. Repeat hemoglobin 7.9. Potassium 2.8 and being replaced PHYSICAL EXAM: VITAL SIGNS: Reviewed. GENERAL: no acute distress. ABDOMEN: Soft. Distended. Reducible umbilical hernia. Mild tenderness with palpation. NEUROLOGIC: Alert and oriented. Cranial nerves II through XII grossly intact. ASSESSMENT: 1. Rectal fecaloma with ileus 2. Constipation 3. Steroral colitis 4. Hypokalemia 5. Anemia PLAN: -Patient has declined EGD and colonoscopy -Antibiotics per ID service Physician Plasma Specialist note has been reviewed by physician. Signing provider agrees with the documented findings, assessment, and plan of care. Objective - Vital Signs Vital signs: Vital Signs Temp 98.1 F 11/07/24 14:00 Pulse 54 L 11/07/24 14:00 Resp 17 11/07/24 14:00 BP 110/58 11/07/24 14:00 Pulse Ox 100 11/07/24 14:00 FiO2 Intake & Output 11/06/24 11/07/24 11/07/24 18:59 06:59 18:59 Intake Total 276 Output Total 525 700 Balance -249 -700 Weight 80.739 kg Intake: Blood Product 276 Rc Pheresis 2 As3 Unit 276 [id number] Output: Urine 525 700 Other: Voiding Method Indwelling Catheter # Bowel Movements 3 1 1 - Labs CBC & Chem 7: 11/07/24 03:53 11/07/24 03:53 Labs: Abnormal Lab Results - Last 24 Hours (Table) 11/06/24 11/06/24 11/06/24 Range/Units 10:10 16:51 20:06 RBC (4.10-5.20) X 10*6/uL Hgb (12.0-15.0) g/dL Hct (37.2-46.3) % MCV (80.0-97.0) FL MCHC (32.0-37.0) g/dL RDW (11.5-14.5) % Retic Count (0.10-1.80) % Potassium (3.5-5.5) mmol/L Chloride (96-109) mmol/L Carbon Dioxide (21.6-31.8) mmol/L BUN (9.0-27.0) mg/dL Creatinine (0.6-1.5) mg/dL POC Glucose (mg/dL) 114 H 120 H (70-110) mg/dL Calcium (8.7-10.3) mg/dL Total Bilirubin (0.3-1.2) mg/dL Total Protein (6.2-8.2) g/dL Albumin (3.8-4.9) g/dL Albumin/Globulin Ratio (1.60-3.17) Ratio Crossmatch See Detail 11/07/24 11/07/24 11/07/24 Range/Units 03:53 03:53 03:53 RBC 2.60 L (4.10-5.20) X 10*6/uL Hgb 7.9 L (12.0-15.0) g/dL Hct 26.6 L (37.2-46.3) % MCV 102.3 H (80.0-97.0) FL MCHC 29.7 L (32.0-37.0) g/dL RDW 16.7 H (11.5-14.5) % Retic Count 2.74 H (0.10-1.80) % Potassium 2.8 L (3.5-5.5) mmol/L Chloride 113 H (96-109) mmol/L Carbon Dioxide 19.5 L (21.6-31.8) mmol/L BUN 6.2 L (9.0-27.0) mg/dL Creatinine 0.5 L (0.6-1.5) mg/dL POC Glucose (mg/dL) (70-110) mg/dL Calcium 7.8 L (8.7-10.3) mg/dL Total Bilirubin <0.2 L (0.3-1.2) mg/dL Total Protein 4.3 L (6.2-8.2) g/dL Albumin 2.5 L (3.8-4.9) g/dL Albumin/Globulin Ratio 1.39 L (1.60-3.17) Ratio Crossmatch Microbiology - Last 24 Hours (Table) 11/01/24 17:00 Blood Culture - Final Blood
--- NOTE | 2024-11-07 15:43 | P.PN ---
Subjective Progress Note Date: 11/07/24 Principal diagnosis: Reason for follow-up is positive UA and bacteremia Patient is a 74-year-old female with a past medical history significant for heart failure COPD diabetes mellitus reflux hyperlipidemia and recent diagnosis of lung cancer patient has been brought into the hospital from oncology office concerning for urinary retention/oliguria low blood pressure c oncern for possible infection. On today's evaluation that is 11/07/2024,the patient denies any fever or any chills, patient is breathing comfortably on 2 L nasal oxygen the patient denies chest pain shortness of breath and no significant cough, patient denies abdominal pain, no nausea vomiting or diarrhea. Patient white count is 5.55, creatinine 0.5 blood culture repeat has been negative Objective - Vital Signs Vital signs: Vital Signs Temp 98.1 F 11/07/24 14:00 Pulse 54 L 11/07/24 14:00 Resp 17 11/07/24 14:00 BP 110/58 11/07/24 14:00 Pulse Ox 100 11/07/24 14:00 FiO2 Intake & Output 11/06/24 11/07/24 11/07/24 18:59 06:59 18:59 Intake Total 276 Output Total 525 700 Balance -249 -700 Weight 80.739 kg Intake: Blood Product 276 Rc Pheresis 2 As3 Unit 276 [id number] Output: Urine 525 700 Other: Voiding Method Indwelling Catheter # Bowel Movements 3 1 1 - Exam GENERAL DESCRIPTION: An elderly female lying in bed in no distress RESPIRATORY SYSTEM: Unlabored breathing , decreased breath sounds at bases HEART: S1 S2 regular rate and rhythm , ABDOMEN: Soft , no tenderness EXTREMITIES: No edema feet - Labs CBC & Chem 7: 11/07/24 03:53 11/07/24 03:53 Labs: Abnormal Lab Results - Last 24 Hours (Table) 11/06/24 11/06/24 11/07/24 Range/Units 16:51 20:06 03:53 RBC 2.60 L (4.10-5.20) X 10*6/uL Hgb 7.9 L (12.0-15.0) g/dL Hct 26.6 L (37.2-46.3) % MCV 102.3 H (80.0-97.0) FL MCHC 29.7 L (32.0-37.0) g/dL RDW 16.7 H (11.5-14.5) % Retic Count (0.10-1.80) % Potassium (3.5-5.5) mmol/L Chloride (96-109) mmol/L Carbon Dioxide (21.6-31.8) mmol/L BUN (9.0-27.0) mg/dL Creatinine (0.6-1.5) mg/dL POC Glucose (mg/dL) 114 H 120 H (70-110) mg/dL Calcium (8.7-10.3) mg/dL Total Bilirubin (0.3-1.2) mg/dL Total Protein (6.2-8.2) g/dL Albumin (3.8-4.9) g/dL Albumin/Globulin Ratio (1.60-3.17) Ratio 11/07/24 11/07/24 Range/Units 03:53 03:53 RBC (4.10-5.20) X 10*6/uL Hgb (12.0-15.0) g/dL Hct (37.2-46.3) % MCV (80.0-97.0) FL MCHC (32.0-37.0) g/dL RDW (11.5-14.5) % Retic Count 2.74 H (0.10-1.80) % Potassium 2.8 L (3.5-5.5) mmol/L Chloride 113 H (96-109) mmol/L Carbon Dioxide 19.5 L (21.6-31.8) mmol/L BUN 6.2 L (9.0-27.0) mg/dL Creatinine 0.5 L (0.6-1.5) mg/dL POC Glucose (mg/dL) (70-110) mg/dL Calcium 7.8 L (8.7-10.3) mg/dL Total Bilirubin <0.2 L (0.3-1.2) mg/dL Total Protein 4.3 L (6.2-8.2) g/dL Albumin 2.5 L (3.8-4.9) g/dL Albumin/Globulin Ratio 1.39 L (1.60-3.17) Ratio Microbiology - Last 24 Hours (Table) 11/01/24 17:00 Blood Culture - Final Blood Assessment and Plan (1) Asymptomatic bacteriuria Current Visit: Yes Status: Acute Code(s): R82.71 - BACTERIURIA SNOMED Code(s): 193211940 (2) Positive blood culture Current Visit: Yes Status: Acute Code(s): R78.81 - BACTEREMIA SNOMED Code(s): 183644363 (3) Penicillin allergy Current Visit: No Status: Acute Code(s): Z88.0 - ALLERGY STATUS TO PENICILLIN SNOMED Code(s): 02803848 Plan: 1patient being brought into the hospital concerning for urinary symptom or dr diamond however the patient denies having any burning frequency suprapubic pain no suprapubic tenderness was noticed on examination did have a positive UA more likely representing asymptomatic bacteriuria and no need for antibiotic therapy 2-patient also have positive blood culture with gram-positive bacilli which has been finalized with Clostridium which is likely of gut origin and not contaminat ion blood culture to be repeated document clearance of bacteremia 3CT of abdominal pelvis did show evidence of distention and colitis 4patient blood culture repeat has been negative white count normal. We will keep the patient on Rocephin and Flagyl while inpatient and monitor clinical course closely Dictation was produced using [employer] dictation software. please excuse any grammatical, word or spelling errors. Time with Patient: Less than 30
[2024-11-07 16:09] LABS: Glucose,Whole Blood 107 mg/dL (70-110)
[2024-11-07 21:07] LABS: Glucose,Whole Blood 96 mg/dL (70-110)
[2024-11-08 06:12] LABS: Glucose,Whole Blood 92 mg/dL (70-110)
[2024-11-08 08:14] LABS: Basophils # (A) 0.04 X 10*3/uL (0.00-0.10); Basophils % (A) 0.8 %; Eosinophils # (A) 0.10 X 10*3/uL (0.04-0.35); Eosinophils % (A) 1.9 %; HCT 27.2 % (37.2-46.3); HGB 8.0 g/dL (12.0-15.0); Immature Grans, Automated 0.40 %; Lymphocytes # (A) 1.70 X 10*3/uL (0.90-5.00); Lymphocytes % (A) 31.9 %; MCH 30.3 pg (27.0-32.0); MCHC 29.4 g/dL (32.0-37.0); MCV 103.0 FL (80.0-97.0); Monocytes # (A) 0.32 X 10*3/uL (0.20-1.00); Monocytes % (A) 6.0 %; NRBC Per 100 WBC 0 X 10*3/uL (0.00-0.01); Neutrophils # (A) 3.15 X 10*3/uL (1.80-7.70); Neutrophils % (A) 59.0 %; Platelet Count 147 X 10*3/uL (140-440); RBC 2.64 X 10*6/uL (4.10-5.20); RDW 16.8 % (11.5-14.5); WBC 5.33 X 10*3/uL (4.50-10.00)
[2024-11-08 08:22] LABS: ALT 7 U/L (8-44); AST 13 U/L (13-35); Albumin 2.6 g/dL (3.8-4.9); Albumin/Globulin Ratio 1.53 Ratio (1.60-3.17); Alkaline Phosphatase 63 U/L (41-126); Anion Gap 10.00 mmol/L (4.00-12.00); BUN/Creat Ratio 11.75 Ratio (12.00-20.00); Blood Urea Nitrogen 4.7 mg/dL (9.0-27.0); Calcium 7.8 mg/dL (8.7-10.3); Carbon Dioxide 18.0 mmol/L (21.6-31.8); Chloride 113 mmol/L (96-109); Globulin 1.7 g/dL (1.6-3.3); Glucose 82 mg/dL (70-110); Magnesium 1.4 mg/dL (1.5-2.4); Potassium 2.9 mmol/L (3.5-5.5); Sodium 141 mmol/L (135-145); Total Protein 4.3 g/dL (6.2-8.2)
[2024-11-08] MEDS: POTASSIUM CHLORIDE ER 20 MEQ TAB.ER PO SCH ×2 (09:02→18:35)
--- NOTE | 2024-11-08 10:06 | P.PN ---
Subjective Patient is seen in follow-up for hyponatremia. Sodium level normal today. Off IV fluids. Tolerating oral intake. Potassium still low. Vital signs are stable. General: No acute distress. HEENT: Head exam is unremarkable. LUNGS: No audible rhonchi or wheezes. HEART: Rate and Rhythm are regular. ABDOMEN: Non-tender. EXTREMITITES: No edema. Objective - Vital Signs Vital signs: Vital Signs Temp 97.6 F 11/08/24 07:18 Pulse 76 11/08/24 07:18 Resp 16 11/08/24 07:18 BP 100/64 11/08/24 07:18 Pulse Ox 99 11/08/24 08:58 FiO2 Intake & Output 11/07/24 11/08/24 11/08/24 18:59 06:59 18:59 Intake Total 240 Output Total 1000 1300 Balance -1000 -1060 Intake: Oral 240 Output: Urine 1000 1300 Other: Voiding Method Indwelling Catheter Indwelling Catheter # Voids 3 # Bowel Movements 1 - Labs CBC & Chem 7: 11/08/24 04:29 11/08/24 04:29 Labs: Abnormal Lab Results - Last 24 Hours (Table) 11/07/24 11/08/24 11/08/24 Range/Units 16:33 04:29 04:29 RBC 2.64 L (4.10-5.20) X 10*6/uL Hgb 8.0 L (12.0-15.0) g/dL Hct 27.2 L (37.2-46.3) % MCV 103.0 H (80.0-97.0) FL MCHC 29.4 L (32.0-37.0) g/dL RDW 16.8 H (11.5-14.5) % Potassium 3.2 L 2.9 L (3.5-5.1) mmol/L Chloride 113 H (96-109) mmol/L Carbon Dioxide 18.0 L (21.6-31.8) mmol/L BUN 4.7 L (9.0-27.0) mg/dL Creatinine 0.4 L (0.6-1.5) mg/dL BUN/Creatinine Ratio 11.75 L (12.00-20.00) Ratio Calcium 7.8 L (8.7-10.3) mg/dL Magnesium 1.4 L (1.5-2.4) mg/dL Total Bilirubin <0.2 L (0.3-1.2) mg/dL ALT 7 L (8-44) U/L Total Protein 4.3 L (6.2-8.2) g/dL Albumin 2.6 L (3.8-4.9) g/dL Albumin/Globulin Ratio 1.53 L (1.60-3.17) Ratio Assessment and Plan Plan: Assessment: 1. Hyponatremia initially improved with normal saline. Subsequently received IV Lasix. Hyponatremia resolved and patient became slightly hypernatremic with sodium level up to 145. She subsequently received D5W and sodium is now normal. 2. STEWART secondary to lower urinary tract obstruction. Currently has a Rock catheter. GFR at baseline now. 3. Urinary retention. Rock catheter had to be reinserted. On Flomax. 4. Diabetes mellitus. 5. Hypokalemia from diuresis and poor intake. Also component of hypomagnesemia which will lead to renal potassium losses. 6. Clostridium bacteremia and Proteus UTI on antibiotics. 7. Acute blood loss anemia. Hemoglobin 8.0 today. Avoid IV iron in the setting of acute infection/bacteremia. Plan: Replace potassium and magnesium. Encouraged oral intake, including free water. Repeat potassium level this afternoon. Stopped SGLT2 inhibitor due to acute infection.
[2024-11-08] MEDS ORDERED: Magnesium Replacement Protocol 1 EACH MISC MISCELLANE PRN (10:12)
--- NOTE | 2024-11-08 10:30 | P.PN ---
Subjective Progress Note Date: 11/07/24 Ajay Robertson, is a 74-year-old female who presented to [facility] emergency room with a chief complaint of urinary retention, patient stated that she had a Rock catheter up to 3 weeks ago, after Rock catheter was discontinued patient had urine incontinence with a small amount of urine " dribbling " she was having suprapubic fullness and pain, evaluation in the emergency room revealed evidence of urinary retention and urinary tract infection, she was started on IV ceftriaxone in the emergency room and was admitted to medical floor. Evaluation in the emergency room also revealed evidence of hypotension and hyponatremia blood pressure on presentation was 76/50 and sodium was down to 122. Patient has a prolonged past medical history including history of hypertension, hyperlipidemia, advanced COPD, chronic hypoxic respiratory failure requiring home oxygen, diabetes mellitus type 2, congestive heart failure, and history of recently diagnosed lung cancer. On 10/30/2024 patient is alert and oriented x 3. Current vital signs temp 97.1, heart rate 74, respiratory rate 15, blood pressure 97/63 with pulse ox 100% on room air. Infectious disease services consulted. Repeat sodium level has been ordered. Rock catheter in place. Ultrasound of renal bladder and kidneys ord ered. Urine and blood cultures ordered 10/31/2024 patient was seen and examined on the medical floor she is alert and oriented x 3 in no apparent distress there is no fever or chills no headache or dizziness she reports some improvement in her abdominal pain and distention there is no nausea or vomiting no diarrhea and no urinary symptoms Rock catheter is inserted. On 11/01/2024 patient is alert and oriented x 3. Current vital signs temp 98.4, heart rate 90, respiratory rate 15, blood pressure 110/62 with pulse ox of 96% on 2 L. Patient denies chest pain or shortness of breath. Patient denies nausea vomiting or diarrhea. Patient denies any urinary burning or frequency. Patient has had multiple bowel movements. Abdomen x-ray completed showing dilated small bowel loops left mid abdomen consider small ileus no signs of obstruction or fecal retention On 11/02/2024 patient is alert and oriented x 3. Patient continuing to have bowel movement. CT of abdomen and pelvis reviewed and ordered per infectious disease patient maintained on Flagyl and Rocephin. Potassium low this a.m. at 2.5 replace per protocol. Current vital signs temp 98.5, rate 65, respiratory rate 17, blood pressure 98/62 with pulse ox 100% on 2 L nasal cannula. Infectious disease, surgical, nephrology, pulmonary and oncology are all following On 11/03/2024 patient is alert and oriented x 3. Patient continuing to have bowel movements. Surgical services are following. Patient remains on Flagyl and Rocephin for positive blood culture infectious disease services following potassium this a.m. 3.1 replace per protocol. Nephrology services following. Patient denies chest pain or shortness of breath. Patient denies nausea vomiting or diarrhea. Patient denies any urinary burning or frequency 11/04/2024 patient was seen and examined on the medical floor she is alert and oriented x 3 in no apparent distress there is no fever or chills no headache or dizziness she reports some improvement in her abdominal pain and distention there is no nausea or vomiting no diarrhea and no urinary symptoms Rock catheter is inserted. Diarrhea has improved, diet is being advanced gradually. 11/05/2024 patient was seen and examined on the medical floor she is alert and oriented x 3 in no apparent distress she is still complaining of loose stools potassium is low again today at 2.8 she still has a Rock catheter in otherwise she denies any complaints there is no fever or chills no headache or dizziness no chest pain no shortness of breath no cough no nausea or vomiting no abdominal pain or urinary symptoms. Plan to correct potassium, monitor hemoglobin today at 7.1. Plan for voiding trials with removing Rock catheter. Patient is insisting on going home and not going back to the long term, she is being assessed by physical therapy. On 11/06/2024 patient is alert and oriented x 3. Hemoglobin today 6.91 unit of PRBCs have been ordered discussed case with surgical services awaiting further recommendations. Patient denies chest pain or shortness of breath. Patient denies nausea vomiting or diarrhea. Patient denies any urinary burning or frequency. DC planning to [facility]CF. Per ID p.o. antibiotics upon discharge. Current vital signs temp 98.2, heart rate 77, respiratory rate 18, blood pres sure 159/87 with pulse ox of 94% on room air 11/07/2024 patient was seen and examined on the medical floor she is alert and oriented x 3 in no apparent distress, there is no fever or chills no headache or dizziness no chest pain no shortness of breath no cough no nausea or vomiting no abdominal pain no diarrhea no urinary symptoms. Patient is now agreeable to go back to [facility] on the [facility] for further rehab. Objective - Vital Signs Vital signs: Vital Signs Temp 98.1 F 11/07/24 00:55 Pulse 74 11/07/24 00:55 Resp 16 11/07/24 00:55 BP 93/52 11/07/24 00:55 Pulse Ox 99 11/07/24 00:55 FiO2 Intake & Output 11/06/24 11/07/24 11/07/24 18:59 06:59 18:59 Intake Total 276 Output Total 525 Balance -249 Weight 80.739 kg Intake: Blood Product 276 Rc Pheresis 2 As3 Unit 276 [id number] Output: Urine 525 Other: # Bowel Movements 3 1 - Exam In general patient is alert and oriented x 3 in no distress HEENT head normocephalic and atraumatic Neck is supple no JVD no goiter no lymphadenopathy no carotid bruit Chest examination is clear to auscultation no crackles no wheezing Cardiac exam reveals regular heart sounds S1 and S2 no gallops no murmurs Abdomen is soft nontender no organomegaly with normal bowel sounds Extremity exam reveals 3+ edema no cyanosis or clubbing Neurological examination reveals no gross focal deficits - Labs CBC & Chem 7: 11/08/24 04:29 11/08/24 04:29 Labs: Abnormal Lab Results - Last 24 Hours (Table) 11/06/24 11/06/24 11/06/24 Range/Units 03:24 03:24 10:10 RBC 2.28 L (4.10-5.20) X 10*6/uL Hgb 6.9 A* (12.0-15.0) g/dL Hct 23.9 L (37.2-46.3) % MCV 104.8 H (80.0-97.0) FL MCHC 28.9 L (32.0-37.0) g/dL RDW 15.6 H (11.5-14.5) % Retic Count (0.10-1.80) % Potassium 3.1 L (3.5-5.5) mmol/L Chloride 118 H (96-109) mmol/L Carbon Dioxide 18.7 L (21.6-31.8) mmol/L BUN 7.4 L (9.0-27.0) mg/dL Creatinine 0.5 L (0.6-1.5) mg/dL POC Glucose (mg/dL) (70-110) mg/dL Calcium 7.7 L (8.7-10.3) mg/dL Total Bilirubin <0.2 L (0.3-1.2) mg/dL Total Protein 4.3 L (6.2-8.2) g/dL Albumin 2.6 L (3.8-4.9) g/dL Albumin/Globulin Ratio 1.53 L (1.60-3.17) Ratio Crossmatch See Detail 11/06/24 11/06/24 11/07/24 Range/Units 16:51 20:06 03:53 RBC (4.10-5.20) X 10*6/uL Hgb (12.0-15.0) g/dL Hct (37.2-46.3) % MCV (80.0-97.0) FL MCHC (32.0-37.0) g/dL RDW (11.5-14.5) % Retic Count 2.74 H (0.10-1.80) % Potassium (3.5-5.5) mmol/L Chloride (96-109) mmol/L Carbon Dioxide (21.6-31.8) mmol/L BUN (9.0-27.0) mg/dL Creatinine (0.6-1.5) mg/dL POC Glucose (mg/dL) 114 H 120 H (70-110) mg/dL Calcium (8.7-10.3) mg/dL Total Bilirubin (0.3-1.2) mg/dL Total Protein (6.2-8.2) g/dL Albumin (3.8-4.9) g/dL Albumin/Globulin Ratio (1.60-3.17) Ratio Crossmatch Microbiology - Last 24 Hours (Table) 11/01/24 17:00 Blood Culture - Final Blood Assessment and Plan Plan: Urinary tract infection Sepsis, with hypotension Severe hyponatremia Urinary retention Acute kidney injury with elevated BUN and creatinine Underlying history of advanced COPD Underlying history of hypertension Underlying history of hyperlipidemia Underlying history of chronic hypoxic respiratory failure maintained on home oxygen Underlying history of diabetes mellitus Underlying history of degenerative disc disease and osteoarthritis At this time patient was seen and examined Home medications reviewed and reordered Patient was started on IV ceftriaxone and IV fluid in the emergency room Blood culture and urine culture ordered Infectious disease consultation requested Will follow closely
[2024-11-08 11:12] LABS: Glucose,Whole Blood 94 mg/dL (70-110)
--- NOTE | 2024-11-08 11:19 | P.DS ---
Providers Date of admission: 10/29/24 15:54 Expected date of discharge: 11/08/24 Attending physician: Shalom Gray Consults: 10/30/24 10:54 Consult Physician Routine Consulting Provider: Abrahan Godwin Consult Reason/Comments: UTI Do you want consulting provider notified?: Yes 10/30/24 12:28 Consult Physician Routine Consulting Provider: Seema Lambert Consult Reason/Comments: hyponatremia Do you want consulting provider notified?: Yes 10/30/24 13:28 Consult Physician Routine Consulting Provider: Humble Benavides Consult Reason/Comments: urinary retention Do you want consulting provider notified?: Yes 10/30/24 13:29 Consult Physician Routine Consulting Provider: Geremias Rossi Consult Reason/Comments: lung ca Do you want consulting provider notified?: Yes 10/31/24 11:49 Consult Physician Routine Consulting Provider: Christelle Yuen Consult Reason/Comments: lung mass, known to service Do you want consulting provider notified?: Yes 11/01/24 07:29 Consult Physician Routine Consulting Provider: Duane Weber Consult Reason/Comments: bowel obstruction Do you want consulting provider notified?: Already Contacted Primary care physician: Shalom Gray [facility] Hospital Course: Discharge diagnosis Urinary tract infection Sepsis, with hypotension Severe hyponatremia Urinary retention Acute kidney injury with elevated BUN and creatinine Underlying history of advanced COPD Underlying history of hypertension Underlying history of hyperlipidemia Underlying history of chronic hypoxic respiratory failure maintained on home oxygen Underlying history of diabetes mellitus Underlying history of degenerative disc disease and osteoarthritis Hospital Course Ajay Robertson, is a 74-year-old female who presented to [facility] emergency room with a chief complaint of urinary retention, patient stated that she had a Rock catheter up to 3 weeks ago, after Rock catheter was discontinued patient had urine incontinence with a small amount of urine " dribbling " she was having suprapubic fullness and pain, evaluation in the emergency room revealed evidence of urinary retention and urinary tract infectio n, she was started on IV ceftriaxone in the emergency room and was admitted to medical floor. Evaluation in the emergency room also revealed evidence of hypotension and hyponatremia blood pressure on presentation was 76/50 and sodium was down to 122. Patient has a prolonged past medical history including history of hypertension, hyperlipidemia, advanced COPD, chronic hypoxic respiratory failure requiring home oxygen, diabetes mellitus type 2, congestive heart failure, and history of recently diagnosed lung cancer. On 10/30/2024 patient is alert and oriented x 3. Current vital signs temp 97.1, heart rate 74, respiratory rate 15, blood pressure 97/63 with pulse ox 100% on room air. Infectious disease services consulted. Repeat sodium level has been ordered. Rock catheter in place. Ultrasound of renal bladder and kidneys ordered. Urine and blood cultures ordered 10/31/2024 patient was seen and examined on the medical floor she is alert and oriented x 3 in no apparent distress there is no fever or chills no headache or dizziness she reports some improvement in her abdominal pain and distention there is no nausea or vomiting no diarrhea and no urinary symptoms Rock catheter is inserted. On 11/01/2024 patient is alert and oriented x 3. Current vital signs temp 98.4, heart rate 90, respiratory rate 15, blood pressure 110/62 with pulse ox of 96% on 2 L. Patient denies chest pain or shortness of breath. Patient denies nausea vomiting or diarrhea. Patient denies any urinary burning or frequency. Patient has had multiple bowel movements. Abdomen x-ray completed showing dilated small bowel loops left mid abdomen consider small ileus no signs of obstruction or fecal retention On 11/02/2024 patient is alert and oriented x 3. Patient continuing to have bowel movement. CT of abdomen and pelvis reviewed and ordered per infectious disease patient maintained on Flagyl and Rocephin. Potassium low this a.m. at 2.5 replace per protocol. Current vital signs temp 98.5, rate 65, respiratory rate 17, blood pressure 98/62 with pulse ox 100% on 2 L nasal cannula. Infectious disease, surgical, nephrology, pulmonary and oncology are all following On 11/03/2024 patient is alert and oriented x 3. Patient continuing to have bowel movements. Surgical services are following. Patient remains on Flagyl and Rocephin for positive blood culture infectious disease services following potassium this a.m. 3.1 replace per protocol. Nephrology services following. Patient denies chest pain or shortness of breath. Patient denies nausea vomiting or diarrhea. Patient denies any urinary burning or frequency 11/04/2024 patient was seen and examined on the medical floor she is alert and oriented x 3 in no apparent distress there is no fever or chills no headache or dizziness she reports some improvement in her abdominal pain and distention there is no nausea or vomiting no diarrhea and no urinary symptoms Rock catheter is inserted. Diarrhea has improved, diet is being advanced gradually. 11/05/2024 patient was seen and examined on the medical floor she is alert and oriented x 3 in no apparent distress she is still complaining of loose stools potassium is low again today at 2.8 she still has a Rock catheter in otherwise she denies any complaints there is no fever or chills no headache or dizziness no chest pain no shortness of breath no cough no nausea or vomiting no abdominal pain or urinary symptoms. Plan to correct potassium, monitor hemoglobin today at 7.1. Plan for voiding trials with removing Rock catheter. Patient is insisting on going home and not going back to the skilled nursing, she is being assessed by physical therapy. On 11/06/2024 patient is alert and oriented x 3. Hemoglobin today 6.91 unit of PRBCs have been ordered discussed case with surgical services awaiting further recommendations. Patient denies chest pain or shortness of breath. Patient denies nausea vomiting or diarrhea. Patient denies any urinary burning or frequency. DC planning to ECF. Per ID p.o. antibiotics upon discharge. Current vital signs temp 98.2, heart rate 77, respiratory rate 18, blood pressure 159/87 with pulse ox of 94% on room air 11/07/2024 patient was seen and examined on the medical floor she is alert and oriented x 3 in no apparent distress, there is no fever or chills no headache or dizziness no chest pain no shortness of breath no cough no nausea or vomiting no abdominal pain no diarrhea no urinary symptoms. Patient is now agreeable to go back to [facility] on the [facility] for further rehab. . On 11/08/2024 patient's alert and oriented x 3. Patient did have to have a Rock catheter put back in. Patient will be DC'd to ECF facility with Rock catheter in place. Patient declined colonoscopy or EGD hemoglobin today 8.0. Patient will be DC'd on Flagyl and Ceftin per ID recommendation. Patient to follow-up with urology services outpatient. Patient denies chest pain or shortness of breath. Patient denies nausea vomiting or diarrhea. Patient denies any urinary burning or frequency. Potassium and magnesium to be replaced to be replaced prior to discharge Patient Condition at Discharge: Stable Plan - Discharge Summary New Discharge Prescriptions: New metroNIDAZOLE [Flagyl] 500 mg PO TID 10 Days #30 tab cefuroxime axetiL [Ceftin] 500 mg PO BID 10 Days #20 tab Continue Albuterol Inhaler [Ventolin Hfa Inhaler] 2 puff INHALATION RT-Q6H PRN PRN Reason: Shortness Of Breath Ergocalciferol [Vitamin D2 (1250 Mcg = 45890 Iu)] 1,250 mcg PO MO Budesonide/Formoterol Fumarate [Symbicort 160-4.5 Mcg Inhaler] 2 puff INHALATION RT-BID Magnesium Oxide [Mag-Ox] 400 mg PO TID Acetaminophen Tab [Tylenol] 650 mg PO Q6H PRN PRN Reason: Pain traZODone HCL [Desyrel] 25 mg PO HS@2100 Ipratropium-Albuterol Nebulize [Duoneb 0.5 mg-3 mg/3 ml Soln] 3 ml INHALATION RT-Q6H PRN PRN Reason: COPD Metoprolol Tartrate [Lopressor] 25 mg PO BID Folic Acid 1 mg PO DAILY Docusate [Colace] 100 mg PO DAILY Tamsulosin [Flomax] 0.4 mg PO HS Sennosides/Docusate Sodium [Senna Plus 8.6-50 mg Tablet] 1 tab PO BID Lactulose [Cephulac] 20 gm PO BID Apixaban [Eliquis] 5 mg PO BID Discontinued Insulin Glargine (Lantus) [Lantus Vial] 35 unit SQ HS@2100 Torsemide [Demadex] 10 mg PO DAILY Spironolactone [Aldactone] 12.5 mg PO DAILY No Action Empagliflozin [Jardiance] 10 mg PO DAILY HYDROcodone/APAP 10-325MG [[place] 10-325] 1 tab PO TID PRN #4 tab PRN Reason: Pain Discharge Medication List Albuterol Inhaler [Ventolin Hfa Inhaler] 2 puff INHALATION RT-Q6H PRN 01/08/15 [History] Ergocalciferol [Vitamin D2 (1250 Mcg = 15568 Iu)] 1,250 mcg PO MO 07/04/24 [History] traZODone HCL [Desyrel] 25 mg PO HS@2100 07/04/24 [History] Budesonide/Formoterol Fumarate [Symbicort 160-4.5 Mcg Inhaler] 2 puff INHALATION RT-BID 08/09/24 [History] Docusate [Colace] 100 mg PO DAILY 08/09/24 [History] Folic Acid 1 mg PO DAILY 08/09/24 [History] Ipratropium-Albuterol Nebulize [Duoneb 0.5 mg-3 mg/3 ml Soln] 3 ml INHALATION RT-Q6H PRN 08/09/24 [History] Metoprolol Tartrate [Lopressor] 25 mg PO BID 08/09/24 [History] Tamsulosin [Flomax] 0.4 mg PO HS 08/29/24 [History] Empagliflozin [Jardiance] 10 mg PO DAILY 09/11/24 [History] Magnesium Oxide [Mag-Ox] 400 mg PO TID 09/11/24 [History] Sennosides/Docusate Sodium [Senna Plus 8.6-50 mg Tablet] 1 tab PO BID 09/11/24 [History] HYDROcodone/APAP 10-325MG [[place] 10-325] 1 tab PO TID PRN #4 tab 09/19/24 [Rx] Acetaminophen Tab [Tylenol] 650 mg PO Q6H PRN 10/29/24 [History] Apixaban [Eliquis] 5 mg PO BID 10/29/24 [History] Lactulose [Cephulac] 20 gm PO BID 10/29/24 [History] cefuroxime axetiL [Ceftin] 500 mg PO BID 10 Days #20 tab 11/08/24 [Rx] metroNIDAZOLE [Flagyl] 500 mg PO TID 10 Days #30 tab 11/08/24 [Rx] Follow up Appointment(s)/Referral(s): Joshua bryant [facility], [NON-STAFF] - As Needed Shalom Gray MD [Primary Care Provider] - 1-2 days Activity/Diet/Wound Care/Special Instructions: Patient requires a moraima lift because she requires at least two people to get out of bed to complete her ADLS due to CHF, COPD, generalized weakness, and lung cancer. Patient would otherwise be bed bound. Discharge Disposition: TRANSFER TO SNF/ECF
[2024-11-08] MEDS: POTASSIUM CHLORIDE ER 20 MEQ TAB.ER PO ONE (12:26)
[2024-11-08] MEDS: MAGNESIUM SULFATE-D5W PMX 1 GM in DEXTROSE/WATER 1 100ML.BAG IVPB SCH (13:13)
--- NOTE | 2024-11-08 13:58 | P.PN ---
Subjective Progress Note Date: 11/08/24 SURGICAL PROGRESS NOTE CHIEF COMPLAINT: Urine retention HISTORY OF PRESENT ILLNESS: Patient denies any abdominal pain. She is having bowel movements. Hemoglobin stable at 8.0. They are working discharging patient to [facility] PHYSICAL EXAM: VITAL SIGNS: Reviewed. GENERAL: no acute distress. ABDOMEN: Soft. Distended. Reducible umbilical hernia. Mild tenderness with palpation. NEUROLOGIC: Alert and oriented. Cranial nerves II through XII grossly intact. ASSESSMENT: 1. Rectal fecaloma with ileus improved 2. Constipation 3. Steroral colitis 4. Hypokalemia 5. Anemia PLAN: -Patient has declined EGD and colonoscopy -Antibiotics per ID service - Patient can be discharged from surgical standpoint - Would recommend continuing good bowel regimen Physician [employer] note has been reviewed by physician. Signing provider agrees with the documented findings, assessment, and plan of care. Objective - Vital Signs Vital signs: Vital Signs Temp 97.6 F 11/08/24 07:18 Pulse 76 11/08/24 07:18 Resp 16 11/08/24 07:18 BP 100/64 11/08/24 07:18 Pulse Ox 99 11/08/24 08:58 FiO2 Intake & Output 11/07/24 11/08/24 11/08/24 18:59 06:59 18:59 Intake Total 240 Output Total 1000 1300 Balance -1000 -1060 Intake: Oral 240 Output: Urine 1000 1300 Other: Voiding Method Indwelling Catheter Indwelling Catheter # Voids 3 # Bowel Movements 1 - Labs CBC & Chem 7: 11/08/24 04:29 11/08/24 04:29 Labs: Abnormal Lab Results - Last 24 Hours (Table) 11/07/24 11/08/24 11/08/24 Range/Units 16:33 04:29 04:29 RBC 2.64 L (4.10-5.20) X 10*6/uL Hgb 8.0 L (12.0-15.0) g/dL Hct 27.2 L (37.2-46.3) % MCV 103.0 H (80.0-97.0) FL MCHC 29.4 L (32.0-37.0) g/dL RDW 16.8 H (11.5-14.5) % Potassium 3.2 L 2.9 L (3.5-5.1) mmol/L Chloride 113 H (96-109) mmol/L Carbon Dioxide 18.0 L (21.6-31.8) mmol/L BUN 4.7 L (9.0-27.0) mg/dL Creatinine 0.4 L (0.6-1.5) mg/dL BUN/Creatinine Ratio 11.75 L (12.00-20.00) Ratio Calcium 7.8 L (8.7-10.3) mg/dL Magnesium 1.4 L (1.5-2.4) mg/dL Total Bilirubin <0.2 L (0.3-1.2) mg/dL ALT 7 L (8-44) U/L Total Protein 4.3 L (6.2-8.2) g/dL Albumin 2.6 L (3.8-4.9) g/dL Albumin/Globulin Ratio 1.53 L (1.60-3.17) Ratio
[2024-11-08 15:12] LABS: Magnesium 1.9 mg/dL (1.6-2.3); Potassium 3.3 mmol/L (3.5-5.1)
[2024-11-08 16:06] LABS: Glucose,Whole Blood 77 mg/dL (70-110)
[2024-11-08 20:06] LABS: Glucose,Whole Blood 97 mg/dL (70-110)
[2024-11-09 06:25] LABS: Glucose,Whole Blood 91 mg/dL (70-110)
[2024-11-09 08:14] VITALS: BP 106/73; PULSE 87; RESP 22; TEMP 97.7
[2024-11-09 08:18] LABS: Anion Gap 9.30 mmol/L (4.00-12.00); BUN/Creat Ratio 10.00 Ratio (12.00-20.00); Blood Urea Nitrogen 4.0 mg/dL (9.0-27.0); Carbon Dioxide 19.7 mmol/L (21.6-31.8); Chloride 113 mmol/L (96-109); Glucose 93 mg/dL (70-110); Magnesium 2.0 mg/dL (1.5-2.4); Potassium 3.6 mmol/L (3.5-5.5); Sodium 142 mmol/L (135-145)
[2024-11-09 08:19] LABS: Calcium 8.1 mg/dL (8.7-10.3)
--- NOTE | 2024-11-09 09:17 | P.PN ---
Subjective Progress Note Date: 11/09/24 Ajay Robertson, is a 74-year-old female who presented to [facility] emergency room with a chief complaint of urinary retention, patient stated that she had a Rock catheter up to 3 weeks ago, after Rock catheter was discontinued patient had urine incontinence with a small amount of urine " dribbling " she was having suprapubic fullness and pain, evaluation in the emergency room revealed evidence of urinary retention and urinary tract infection, she was started on IV ceftriaxone in the emergency room and was admitted to medical floor. Evaluation in the emergency room also revealed evidence of hypotension and hyponatremia blood pressure on presentation was 76/50 and sodium was down to 122. Patient has a prolonged past medical history including history of hypertension, hyperlipidemia, advanced COPD, chronic hypoxic respiratory failure requiring home oxygen, diabetes mellitus type 2, congestive heart failure, and history of recently diagnosed lung cancer. On 10/30/2024 patient is alert and oriented x 3. Current vital signs temp 97.1, heart rate 74, respiratory rate 15, blood pressure 97/63 with pulse ox 100% on room air. Infectious disease services consulted. Repeat sodium level has been ordered. Rock catheter in place. Ultrasound of renal bladder and kidneys ord ered. Urine and blood cultures ordered 10/31/2024 patient was seen and examined on the medical floor she is alert and oriented x 3 in no apparent distress there is no fever or chills no headache or dizziness she reports some improvement in her abdominal pain and distention there is no nausea or vomiting no diarrhea and no urinary symptoms Rock catheter is inserted. On 11/01/2024 patient is alert and oriented x 3. Current vital signs temp 98.4, heart rate 90, respiratory rate 15, blood pressure 110/62 with pulse ox of 96% on 2 L. Patient denies chest pain or shortness of breath. Patient denies nausea vomiting or diarrhea. Patient denies any urinary burning or frequency. Patient has had multiple bowel movements. Abdomen x-ray completed showing dilated small bowel loops left mid abdomen consider small ileus no signs of obstruction or fecal retention On 11/02/2024 patient is alert and oriented x 3. Patient continuing to have bowel movement. CT of abdomen and pelvis reviewed and ordered per infectious disease patient maintained on Flagyl and Rocephin. Potassium low this a.m. at 2.5 replace per protocol. Current vital signs temp 98.5, rate 65, respiratory rate 17, blood pressure 98/62 with pulse ox 100% on 2 L nasal cannula. Infectious disease, surgical, nephrology, pulmonary and oncology are all following On 11/03/2024 patient is alert and oriented x 3. Patient continuing to have bowel movements. Surgical services are following. Patient remains on Flagyl and Rocephin for positive blood culture infectious disease services following potassium this a.m. 3.1 replace per protocol. Nephrology services following. Patient denies chest pain or shortness of breath. Patient denies nausea vomiting or diarrhea. Patient denies any urinary burning or frequency 11/04/2024 patient was seen and examined on the medical floor she is alert and oriented x 3 in no apparent distress there is no fever or chills no headache or dizziness she reports some improvement in her abdominal pain and distention there is no nausea or vomiting no diarrhea and no urinary symptoms Rock catheter is inserted. Diarrhea has improved, diet is being advanced gradually. 11/05/2024 patient was seen and examined on the medical floor she is alert and oriented x 3 in no apparent distress she is still complaining of loose stools potassium is low again today at 2.8 she still has a Rock catheter in otherwise she denies any complaints there is no fever or chills no headache or dizziness no chest pain no shortness of breath no cough no nausea or vomiting no abdominal pain or urinary symptoms. Plan to correct potassium, monitor hemoglobin today at 7.1. Plan for voiding trials with removing Rock catheter. Patient is insisting on going home and not going back to the longterm, she is being assessed by physical therapy. On 11/06/2024 patient is alert and oriented x 3. Hemoglobin today 6.91 unit of PRBCs have been ordered discussed case with surgical services awaiting further recommendations. Patient denies chest pain or shortness of breath. Patient denies nausea vomiting or diarrhea. Patient denies any urinary burning or frequency. DC planning to ECF. Per ID p.o. antibiotics upon discharge. Current vital signs temp 98.2, heart rate 77, respiratory rate 18, blood pres sure 159/87 with pulse ox of 94% on room air 11/07/2024 patient was seen and examined on the medical floor she is alert and oriented x 3 in no apparent distress, there is no fever or chills no headache or dizziness no chest pain no shortness of breath no cough no nausea or vomiting no abdominal pain no diarrhea no urinary symptoms. Patient is now agreeable to go back to [facility] on the [facility] for further rehab. On 11/09/2024 patient cleared for discharge to [facility] facility potassium today 3.6 potassium magnesium 2.0. Patient will be DC'd to [address] [place] [address]. Patient will be DC'd on Flagyl and Ceftin. Patient denies chest pain or shortness of breath. Patient denies nausea vomiting or diarrhea. Patient denies any urinary burning or frequency Objective - Vital Signs Vital signs: Vital Signs Temp 97.7 F 11/09/24 07:09 Pulse 87 11/09/24 07:09 Resp 22 11/09/24 07:09 BP 106/73 11/09/24 07:09 Pulse Ox 95 11/09/24 09:05 FiO2 Intake & Output 11/08/24 11/09/24 11/09/24 18:59 06:59 18:59 Intake Total 540 Output Total 500 Balance -500 540 Intake: Oral 540 Output: Urine 500 Other: Voiding Method Indwelling Catheter Indwelling Catheter Indwelling Catheter # Voids 2 # Bowel Movements 1 - Exam In general patient is alert and oriented x 3 in no distress HEENT head normocephalic and atraumatic Neck is supple no JVD no goiter no lymphadenopathy no carotid bruit Chest examination is clear to auscultation no crackles no wheezing Cardiac exam reveals regular heart sounds S1 and S2 no gallops no murmurs Abdomen is soft nontender no organomegaly with normal bowel sounds Extremity exam reveals 3+ edema no cyanosis or clubbing Neurological examination reveals no gross focal deficits - Labs CBC & Chem 7: 11/08/24 04:29 11/09/24 05:22 Labs: Abnormal Lab Results - Last 24 Hours (Table) 11/07/24 11/08/24 11/09/24 Range/Units 03:53 14:47 05:22 Potassium 3.3 L (3.5-5.1) mmol/L Chloride 113 H (96-109) mmol/L Carbon Dioxide 19.7 L (21.6-31.8) mmol/L BUN 4.0 L (9.0-27.0) mg/dL Creatinine 0.4 L (0.6-1.5) mg/dL BUN/Creatinine Ratio 10.00 L (12.00-20.00) Ratio Calcium 8.1 L (8.7-10.3) mg/dL Copper 590 L (810-1990) ug/L Assessment and Plan Plan: Urinary tract infection Sepsis, with hypotension Severe hyponatremia Urinary retention Acute kidney injury with elevated BUN and creatinine Underlying history of advanced COPD Underlying history of hypertension Underlying history of hyperlipidemia Underlying history of chronic hypoxic respiratory failure maintained on home oxygen Underlying history of diabetes mellitus Underlying history of degenerative disc disease and osteoarthritis At this time patient was seen and examined Home medications reviewed and reordered Patient was started on IV ceftriaxone and IV fluid in the emergency room Blood culture and urine culture ordered Infectious disease consultation requested Will follow closely
[2024-11-09 11:16] LABS: Glucose,Whole Blood 95 mg/dL (70-110)
--- NOTE | 2024-11-09 12:15 | P.PN ---
Subjective Progress Note Date: 11/09/24 Patient in mild distress. Seen for follow-up on hyponatremia. Sodium levels normal today. potassium levels normal today as well. Denied lightheadedness, dizziness, vomiting, shortness of breath, chest pain, abdominal pain. Objective - Vital Signs Vital signs: Vital Signs Temp 97.7 F 11/09/24 07:09 Pulse 87 11/09/24 07:09 Resp 22 11/09/24 07:09 BP 106/73 11/09/24 07:09 Pulse Ox 95 11/09/24 09:05 FiO2 Intake & Output 11/08/24 11/09/24 11/09/24 18:59 06:59 18:59 Intake Total 540 Output Total 500 Balance -500 540 Intake: Oral 540 Output: Urine 500 Other: Voiding Method Indwelling Catheter Indwelling Catheter Indwelling Catheter # Voids 2 # Bowel Movements 1 - Exam General: No distress Cardiovascular: S1S2 reg, no murmur Lungs: CTA bilateral, no rhonchi, no rales, no accessory muscle use Abdominal: Soft, nontender to palpation, no guarding Ext: Swollen legs bilaterally, bilateral ulcers Psych: Alert, oriented x3 - Labs CBC & Chem 7: 11/08/24 04:29 11/09/24 05:22 Labs: Abnormal Lab Results - Last 24 Hours (Table) 11/07/24 11/08/24 11/09/24 Range/Units 03:53 14:47 05:22 Potassium 3.3 L (3.5-5.1) mmol/L Chloride 113 H (96-109) mmol/L Carbon Dioxide 19.7 L (21.6-31.8) mmol/L BUN 4.0 L (9.0-27.0) mg/dL Creatinine 0.4 L (0.6-1.5) mg/dL BUN/Creatinine Ratio 10.00 L (12.00-20.00) Ratio Calcium 8.1 L (8.7-10.3) mg/dL Copper 590 L (810-1990) ug/L Assessment and Plan Assessment: Assessment: 1. Hyponatremia initially improved with normal saline. sodium is now normal. 2. STEWART secondary to lower urinary tract obstruction. Currently has a Rock catheter. GFR at baseline now. 3. Urinary retention. On Flomax. 4. Diabetes mellitus. 5. Hypokalemia from diuresis and poor intake. Also component of hypomagnesemia. Potassium is 3.6 today 6. Clostridium bacteremia and Proteus UTI on antibiotics. 7. Acute blood loss anemia. Avoid IV iron in the setting of acute infection/bacteremia. Plan: Hyponatremia resolved, sodium is normal Hypokalemia resolved, potassium is 3.6 today. Give potassium chloride 40 mg p .o. once Patient will be discharged to rehab. Okay for discharge from nephrology standpoint. I have seen and examined the patient with resident and agree with A&P as written.
[2024-11-09] MEDS: POTASSIUM CHLORIDE ER 20 MEQ TAB.ER PO ONE (12:30)
--- NOTE | 2024-11-09 14:37 | P.PN ---
Subjective Progress Note Date: 11/08/24 Principal diagnosis: Reason for follow-up is positive UA and bacteremia Patient is a 74-year-old female with a past medical history significant for heart failure COPD diabetes mellitus reflux hyperlipidemia and recent diagnosis of lung cancer patient has been brought into the hospital from oncology office concerning for urinary retention/oliguria low blood pressure c oncern for possible infection. On today's evaluation that is 11/08/2024,the patient remains to be afebrile, patient is on 3 L nasal cannula supplemental oxygen and mentioned breathing comfortably with no chest pain or cough.Patient denies having any nausea or vomiting, no abdominal pain and no diarrhea has been reported. Patient white count is 5.33, creatinine 0.4 Objective - Vital Signs Vital signs: Vital Signs Temp 97.8 F 11/08/24 14:00 Pulse 73 11/08/24 14:00 Resp 16 11/08/24 14:00 BP 92/58 11/08/24 14:00 Pulse Ox 99 11/08/24 14:00 FiO2 Intake & Output 11/07/24 11/08/24 11/08/24 18:59 06:59 18:59 Intake Total 240 Output Total 1000 1300 Balance -1000 -1060 Intake: Oral 240 Output: Urine 1000 1300 Other: Voiding Method Indwelling Catheter Indwelling Catheter # Voids 3 # Bowel Movements 1 - Exam GENERAL DESCRIPTION: An elderly female lying in bed in no distress RESPIRATORY SYSTEM: Unlabored breathing , decreased breath sounds at bases HEART: S1 S2 regular rate and rhythm , ABDOMEN: Soft , no tenderness EXTREMITIES: No edema feet - Labs CBC & Chem 7: 11/08/24 04:29 11/09/24 05:22 Labs: Abnormal Lab Results - Last 24 Hours (Table) 11/07/24 11/08/24 11/08/24 Range/Units 16:33 04:29 04:29 RBC 2.64 L (4.10-5.20) X 10*6/uL Hgb 8.0 L (12.0-15.0) g/dL Hct 27.2 L (37.2-46.3) % MCV 103.0 H (80.0-97.0) FL MCHC 29.4 L (32.0-37.0) g/dL RDW 16.8 H (11.5-14.5) % Potassium 3.2 L 2.9 L (3.5-5.1) mmol/L Chloride 113 H (96-109) mmol/L Carbon Dioxide 18.0 L (21.6-31.8) mmol/L BUN 4.7 L (9.0-27.0) mg/dL Creatinine 0.4 L (0.6-1.5) mg/dL BUN/Creatinine Ratio 11.75 L (12.00-20.00) Ratio Calcium 7.8 L (8.7-10.3) mg/dL Magnesium 1.4 L (1.5-2.4) mg/dL Total Bilirubin <0.2 L (0.3-1.2) mg/dL ALT 7 L (8-44) U/L Total Protein 4.3 L (6.2-8.2) g/dL Albumin 2.6 L (3.8-4.9) g/dL Albumin/Globulin Ratio 1.53 L (1.60-3.17) Ratio Assessment and Plan (1) Asymptomatic bacteriuria Status: Acute Code(s): R82.71 - BACTERIURIA SNOMED Code(s): 926247888 (2) Positive blood culture Status: Acute Code(s): R78.81 - BACTEREMIA SNOMED Code(s): 491655636 (3) Penicillin allergy Status: Acute Code(s): Z88.0 - ALLERGY STATUS TO PENICILLIN SNOMED Code(s): 57115531 Plan: 1patient being brought into the hospital concerning for urinary symptom or dribbling however the patient denies having any burning frequency suprapubic pain no suprapubic tenderness was noticed on examination did have a positive UA more likely representing asymptomatic bacteriuria and no need for antibiotic therapy 2-patient also have positive blood culture with gram-positive bacilli which has been finalized with Clostridium which is likely of gut origin and not contamination blood culture to be repeated document clearance of bacteremia 3CT of abdominal pelvis did show evidence of distention and colitis 4patient blood culture repeat has been negative white count normal. 5we will keep the patient on Rocephin and Flagyl while inpatient and finish therapy with oral Ceftin and Flagyl discussed with the [facility] for admitting team Dictation was produced using [email or web address] dictation software. please excuse any grammatical, word or spelling errors. Time with Patient: Less than 30
--- NOTE | 2024-11-09 14:38 | P.PN ---
Subjective Progress Note Date: 11/09/24 Principal diagnosis: Reason for follow-up is positive UA and bacteremia Patient is a 74-year-old female with a past medical history significant for heart failure COPD diabetes mellitus reflux hyperlipidemia and recent diagnosis of lung cancer patient has been brought into the hospital from oncology office concerning for urinary retention/oliguria low blood pressure c oncern for possible infection. On today's evaluation that is 11/09/2024, the patient continues to be afebrile, the patient is on 2 L nasal cannula oxygen and breathing comfortably, the Pt denies having any chest pain or cough, the patient denies having any abdominal pain no vomiting or any diarrhea has been reported by the nursing staff. Patient white count is 0.4 no CBC was done today blood culture repeat has been negative so far Objective - Vital Signs Vital signs: Vital Signs Temp 97.7 F 11/09/24 07:09 Pulse 87 11/09/24 07:09 Resp 22 11/09/24 07:09 BP 106/73 11/09/24 07:09 Pulse Ox 95 11/09/24 09:05 FiO2 Intake & Output 11/08/24 11/09/24 11/09/24 18:59 06:59 18:59 Intake Total 540 Output Total 500 Balance -500 540 Intake: Oral 540 Output: Urine 500 Other: Voiding Method Indwelling Catheter Indwelling Catheter Indwelling Catheter # Voids 2 # Bowel Movements 1 - Exam GENERAL DESCRIPTION: An elderly female lying in bed in no distress RESPIRATORY SYSTEM: Unlabored breathing , decreased breath sounds at bases HEART: S1 S2 regular rate and rhythm , ABDOMEN: Soft , no tenderness EXTREMITIES: No edema feet - Labs CBC & Chem 7: 11/08/24 04:29 11/09/24 05:22 Labs: Abnormal Lab Results - Last 24 Hours (Table) 11/07/24 11/08/24 11/09/24 Range/Units 03:53 14:47 05:22 Potassium 3.3 L (3.5-5.1) mmol/L Chloride 113 H (96-109) mmol/L Carbon Dioxide 19.7 L (21.6-31.8) mmol/L BUN 4.0 L (9.0-27.0) mg/dL Creatinine 0.4 L (0.6-1.5) mg/dL BUN/Creatinine Ratio 10.00 L (12.00-20.00) Ratio Calcium 8.1 L (8.7-10.3) mg/dL Copper 590 L (810-1990) ug/L Assessment and Plan (1) Asymptomatic bacteriuria Status: Acute Code(s): R82.71 - BACTERIURIA SNOMED Code(s): 074075089 (2) Positive blood culture Status: Acute Code(s): R78.81 - BACTEREMIA SNOMED Code(s): 605874410 (3) Penicillin allergy Status: Acute Code(s): Z88.0 - ALLERGY STATUS TO PENICILLIN SNOMED Code(s): 23817095 Plan: 1patient being brought into the hospital concerning for urinary symptom or dribbling however the patient denies having any burning frequency suprapubic pain no suprapubic tenderness was noticed on examination did have a positive UA more likely representing asymptomatic bacteriuria and no need for antibiotic therapy 2-patient also have positive blood culture with gram-positive bacilli which has been finalized with Clostridium which is likely of gut origin and not contamination blood culture to be repeated document clearance of bacteremia 3CT of abdominal pelvis did show evidence of distention and colitis 4patient blood culture repeat has been negative white count normal. 5patient has received adequate Rocephin and Flagyl while inpatient and finish therapy with oral Ceftin and Flagyl currently waiting for discharge to the halfway Dictation was produced using [employer] dictation software. please excuse any grammatical, word or spelling errors. Time with Patient: Less than 30
== END 2024-11-09 13:06 | DRG 872 ==
LOC: EC 11:35 → 4SSUR 15:54
PROVIDERS: ADMIT Internal Medicine; ATTEND Internal Medicine
PROC: 30233N1 Transfusion of Nonautologous Red Blood Cells into Peripheral Vein, Percutaneous Approach (ICD-10-PCS; principal; 2024-11-06)
DX: A41.59 Other Gram-negative sepsis (principal); E87.0 Hyperosmolality and hypernatremia; R18.8 Other ascites; C34.2 Malignant neoplasm of middle lobe, bronchus or lung; D62 Acute posthemorrhagic anemia; K56.7 Ileus, unspecified; J96.11 Chronic respiratory failure with hypoxia; I11.0 Hypertensive heart disease with heart failure; J44.9 Chronic obstructive pulmonary disease, unspecified; E11.649 Type 2 diabetes mellitus with hypoglycemia without coma; E66.9 Obesity, unspecified; E87.1 Hypo-osmolality and hyponatremia; N17.9 Acute kidney failure, unspecified; N39.0 Urinary tract infection, site not specified; Z79.4 Long term (current) use of insulin; I50.9 Heart failure, unspecified; K56.41 Fecal impaction; N13.9 Obstructive and reflux uropathy, unspecified; Z99.81 Dependence on supplemental oxygen; Z68.31 Body mass index [BMI] 31.0-31.9, adult; R39.11 Hesitancy of micturition; K21.9 Gastro-esophageal reflux disease without esophagitis; E86.1 Hypovolemia; R26.9 Unspecified abnormalities of gait and mobility; I95.9 Hypotension, unspecified; M19.90 Unspecified osteoarthritis, unspecified site; E78.5 Hyperlipidemia, unspecified; R32 Unspecified urinary incontinence; E83.42 Hypomagnesemia; E87.6 Hypokalemia; F41.9 Anxiety disorder, unspecified; K52.9 Noninfective gastroenteritis and colitis, unspecified; Z74.01 Bed confinement status; Z87.891 Personal history of nicotine dependence; Z79.01 Long term (current) use of anticoagulants; Z79.51 Long term (current) use of inhaled steroids; Z79.84 Long term (current) use of oral hypoglycemic drugs; Z79.899 Other long term (current) drug therapy; Z88.0 Allergy status to penicillin; Z91.81 History of falling
CPT/HCPCS: 36415; 51798; 71046; 74019; 74150; 74176; 76770; 80048; 80053; 81001; 82272; 82525; 83036; 83605; 83735; 83880; 83930; 83935; 84132; 84295; 84300; 85025; 85045; 86140; 86850; 86900; 86901; 86920; 87040; 87077; 87086; 87186; 87324; 87493; 94640; 94760; 96361; 96365; 99285